=== PATIENT | female | born 1965 | race Caucasian/White ===

== ENCOUNTER 2022-01-10 15:29 | Outpatient (REF) | payer MEDICAID, SELFPAY ==
[2022-01-11 18:21] LABS: Legionella Ag Detection Urine Negative (Negative)
[2022-01-13 14:19] LABS: Streptococcus Pneumoniae Ag, U Negative (Negative)
[2022-01-21 09:06] LABS: Interpretation Negative; Result: None Detected
== END 2022-01-10 15:30 | disposition home or self-care (01) ==
LOC: LBN 15:29
PROVIDERS: PCP Family Medicine; Visit Provider Student in an Organized Health Care Education/Training Program
DX: R91.8 Other nonspecific abnormal finding of lung field (principal); R53.83 Other fatigue; F17.210 Nicotine dependence, cigarettes, uncomplicated
CPT/HCPCS: 87102; 87107; 87206; 87449; 87070; 87205; 87385; 87899

== ENCOUNTER 2022-01-12 13:02 | Outpatient (CLI) | payer MEDICAID, SELFPAY ==
[2022-01-12 16:33] LABS: Abs Immature Grans 0.03 10^3/uL (0.0-0.06); Absolute Basophil Count 0.06 10^3/uL (0.0-0.2); Absolute Lymphocyte Count 2.03 10^3/uL (1.2-3.4); Absolute Monocyte Count 0.82 10^3/uL (0.1-0.8); Absolute Neutrophil Count 5.72 10^3/uL (1.2-6.7); Basophils % 0.7; Eosinophils % 2.3; HCT 44.5 % (36.0-46.0); HGB 15.3 g/dL (11.2-15.7); Immature Grans % 0.3; Lymphocytes % 22.9; MCH 30.8 pg (27.0-33.0); MCHC 34.4 % (32.0-36.0); MCV 90 fL (80-95); MPV 9.1 fL (8.0-11.0); Monocytes % 9.3; Neutrophils % 64.5; Platelet Count 352 10^3/uL (130-400); RBC 4.96 10^6/uL (3.93-5.22); RDW 13.2 % (11.7-14.6); RDW-SD 43.6 fL; WBC 8.86 10^3/uL (4.4-10.8)
[2022-01-12 16:44] LABS: Prothrombin Time 10.5 sec (9.3-11.0)
[2022-01-12 17:16] LABS: Procalcitonin 0.5 ng/mL
[2022-01-13 18:23] LABS: Rheumatoid Factor <8.6 IU/mL (<12.0)
[2022-01-14 09:37] LABS: Cyclic Citrullinated Peptide <2.5 U/mL (<5.0)
[2022-01-14 12:51] LABS: TB Interpretation Negative (Negative); TB1 Ag minus Nil 0.04 IU/ml; TB2 Ag minus Nil 0.02 IU/mL
[2022-01-14 14:40] LABS: Leukemia/Lymphoma by FC (Blood (See below)
[2022-01-14 22:50] LABS: Myeloperoxidase Ab IgG <0.2 U; Proteinase 3 Ab (PR3) <0.2 U
[2022-01-15 16:11] LABS: Fungitell Qualitative Negative (Negative); Fungitell Quantitative Value <31 pg/mL (<60 pg/mL)
[2022-01-18 12:59] LABS: dsDNA Ab, IgG <12.3 IU/mL (<30.0)
[2022-01-18 13:06] LABS: ANA Interpretation Positive (Negative); ANA Titer Pattern 1:320 Speckled
== END 2022-01-12 13:03 | disposition home or self-care (01) ==
LOC: LBO 13:04
PROVIDERS: PCP Family Medicine; Visit Provider Student in an Organized Health Care Education/Training Program
DX: R91.8 Other nonspecific abnormal finding of lung field (principal)
CPT/HCPCS: 36415; 84145; 86200; 87449; 88185; 83516; 85025; 85610; 86038; 86225; 86431; 86480; 88184; 88189

== ENCOUNTER 2022-05-09 03:34 | Outpatient (CLI) | payer MEDICAID, SELFPAY ==
[2022-05-09] MEDS: Albuterol HFA 18 GM 200 PUFF INH IH (12:17)
[2022-05-09] MEDS: Inhaler, Assist Device 1 EACH MC (12:17)
--- NOTE | 2022-05-10 09:39 | W.PFT ---
Date of service: 05/09/22 Time of Service: 10:09 Pulmonary Function Test Result Requesting Provider Kisha Indications: GONZALEZ, likely lung cancer Interpretation Spirometry: There is severe airflow limitation. There is no bronchodilator response. Lung Volumes: There is air trapping. Diffusion Capacity: There is a reduced diffusion. Airway Pressure: Increased airways resistance. Impression Severe airflow obstruction with a reduced diffusion and air trapping. This is consistent with COPD with emphysema. Clinical Correlation therefore is recommended.
== END 2022-05-09 03:35 | disposition home or self-care (01) ==
LOC: RT 03:35
PROVIDERS: PCP Family Medicine; Visit Provider Student in an Organized Health Care Education/Training Program
DX: F17.210 Nicotine dependence, cigarettes, uncomplicated (principal); J44.9 Chronic obstructive pulmonary disease, unspecified; J98.8 Other specified respiratory disorders
CPT/HCPCS: 94060; 94726; 94729

== ENCOUNTER 2022-11-17 18:41 | Outpatient (REF) | payer MEDICAID, SELFPAY ==
[2022-11-17 18:42] LABS: Abs Immature Grans 0.03 10^3/uL (0.0-0.06); Absolute Basophil Count 0.04 10^3/uL (0.0-0.2); Absolute Eosinophil Count 0.02 10^3/uL (0.0-0.7); Absolute Lymphocyte Count 1.13 10^3/uL (1.2-3.4); Absolute Monocyte Count 0.21 10^3/uL (0.1-0.8); Absolute Neutrophil Count 8.11 10^3/uL (1.2-6.7); Basophils % 0.4; Eosinophils % 0.2; HCT 42.9 % (36.0-46.0); HGB 14.4 g/dL (11.2-15.7); Immature Grans % 0.3; Lymphocytes % 11.8; MCH 30.6 pg (27.0-33.0); MCHC 33.6 % (32.0-36.0); MCV 91 fL (80-95); MPV 9.5 fL (8.0-11.0); Monocytes % 2.2; Neutrophils % 85.1; Platelet Count 374 10^3/uL (130-400); RDW 14.1 % (11.7-14.6); RDW-SD 46.8 fL; WBC 9.54 10^3/uL (4.4-10.8)
[2022-11-17 19:14] LABS: ALT 20 U/L (14-59); AST 20 U/L (15-37); Albumin 3.8 g/dL (3.4-5.0); Alkaline Phosphatase 149 U/L (46-116); Anion Gap 7.8 mmol/L (3-11); BUN 21 mg/dL (7-18); Bilirubin, Total 0.3 mg/dL (0.2-1.0); CO2 31.2 mmol/L (21.0-32.0); CREATININE 0.8 mg/dL (0.55-1.02); Calcium 9.7 mg/dL (8.5-10.1); Chloride 99 mmol/L (98-107); Estimated GFR 85.89 (mL/min/1.73m2); Glucose 188 mg/dL (74-106); Potassium 4.5 mmol/L (3.5-5.1); Sodium 138 mmol/L (136-145)
== END 2022-11-17 18:42 | disposition home or self-care (01) ==
LOC: LBN 18:41
PROVIDERS: PCP Family Medicine; Visit Provider Physician Assistant Surgical
DX: B37.0 Candidal stomatitis (principal); J44.9 Chronic obstructive pulmonary disease, unspecified; R91.1 Solitary pulmonary nodule; R91.8 Other nonspecific abnormal finding of lung field; F17.210 Nicotine dependence, cigarettes, uncomplicated
CPT/HCPCS: 80053; 87305; 85025; 87070; 87205

== ENCOUNTER 2022-11-25 09:58 | Outpatient (CLI) | payer MEDICAID, SELFPAY ==
--- NOTE | 2022-11-25 15:16 | DI.CT_ITS ---
Exam(s) CT CHEST WO EXAM: CT CHEST WO CLINICAL HISTORY: follow up pulmonary nodule,r91.1 TECHNIQUE: Imaging Protocol: Axial computed tomography images with coronal and sagittal reformatted images were created and reviewed CONTRAST MATERIAL: Noncontrast COMPARISON: CT CT ANGIO CHEST from 10/12/[address] ANGIO CHEST from 12/22/2021 FINDINGS: Pulmonary parenchyma: Large mass again noted in the anterior medial right upper lobe now measuring 5. 5 transverse by 8.5 AP by 7.6 cm cephalo caudad. It abuts the left upper hilum. No additional pulmo nary masses. There is coarsening of the interstitium seen adjacent to the mass with multiple nodules in the surrounding tissue consistent with lymphangitis spread. Findings are more prominent when com pared the previous exam. Tracheobronchial tree: No bronchiectasis or mucous plugging. Mediastinum and Evette: No dominant adenopathy or fluid collection. Pleura: No effusion or pneumothorax. Heart: The heart is not dilated. No coronary artery calcifications are seen. Aorta: Thoracic aorta non-dilated. Upper abdomen: Unremarkable. Bones: Degenerative changes. Soft tissues: Unremarkable. IMPRESSION: Continued interval enlargement of right upper lobe mass. RADIATION DOSE DELIVERED: 399.64mGy.cm Total DLP DATA REPOSITORY: All CT scans at this facility are submitted to the National Radiology Data Registry (NRDR) Dose Index Registry (DIR) with the [employer] (ACR). RADIATION OPTIMIZATION: All CT scans at this facility use at least one of these dose optimization te chniques: automated exposure control; mA and/or kV adjustment per patient size (includes targeted exa ms where dose is matched to clinical indication); or iterative reconstruction.
== END 2022-11-25 10:18 ==
LOC: DI 09:58
PROVIDERS: PCP Family Medicine; Visit Provider Student in an Organized Health Care Education/Training Program
DX: R91.1 Solitary pulmonary nodule (principal)
CPT/HCPCS: 71250

== ENCOUNTER 2022-12-08 16:46 | Outpatient (REF) | payer MEDICAID, SELFPAY | END 2022-12-08 16:47 | disposition home or self-care (01) | LOC: LBN 16:46 | PROVIDERS: PCP Family Medicine; Visit Provider Physician Assistant Surgical | DX: R73.09 Other abnormal glucose (principal) | CPT/HCPCS: 83036 ==

== ENCOUNTER 2022-12-10 12:25 | Outpatient (REF) | payer MEDICAID, SELFPAY ==
[2022-12-12 10:53] LABS: Lyme Ab w Rflx to Lyme Confirm Negative (Negative)
[2022-12-14 13:00] LABS: Anaplasma phagocytophilum Negative (Negative); B. miyamotoi PCR Negative (Negative); Babesia divergens/MO-1 Negative (Negative); Babesia duncani Negative (Negative); Babesia microti Negative (Negative); Ehrlichia chaffeensis Negative (Negative); Ehrlichia ewingii/canis Negative (Negative); Ehrlichia muris eauclairensis Negative (Negative)
== END 2022-12-10 12:26 | disposition home or self-care (01) ==
LOC: LBN 12:25
PROVIDERS: PCP Family Medicine; Visit Provider Physician Assistant Medical
DX: W57.XXXA Bitten or stung by nonvenomous insect and other nonvenomous arthropods, initial encounter (principal); T14.8XXA Other injury of unspecified body region, initial encounter
CPT/HCPCS: 87798; 86618

== ENCOUNTER → 2023-03-08 01:48 | Outpatient (CLI) | payer MEDICAID, SELFPAY ==
--- NOTE | 2023-03-08 09:27 | DI.RAD_ITS ---
Exam(s) XR CHEST 2V PA LATERAL EXAM: XR CHEST 2V PA LATERAL CLINICAL HISTORY: DYSPNEA UNSPECIFIED, R06.00, KNOWN MASS IN THE RUL, ? PNEUMOTHORAX/EFFUSION TECHNIQUE: 2D digital imaging was performed of the chest. Three images were obtained. PA and later al views were obtained. COMPARISON: CR XR CHEST SINGLE VIEW from 12/22/[address] CHEST WO from 11/25/2022 FINDINGS: MEDIASTINUM: Normal. HEART: Normal. PULMONARY VASCULATURE: Normal. LUNGS: There is again seen a right central mass consistent with the patient's known neoplasm. The kit ngs are otherwise clear. The are hyperinflated consistent with underlying COPD. PLEURAL SPACE: No pleural effusion or pneumothorax. BONE:Within normal limits for the patient's age. OTHER FINDINGS:Normal. IMPRESSION: 1. No evidence of a pneumothorax or pleural effusion. 2. Stable right upper lobe mass. DATA REPOSITORY: RADIATION DOSE DELIVERED:
== END ==
PROVIDERS: PCP Family Medicine; Visit Provider Student in an Organized Health Care Education/Training Program
DX: R91.8 Other nonspecific abnormal finding of lung field (principal)
CPT/HCPCS: 71046

== ENCOUNTER → 2023-04-12 01:19 | Outpatient (CLI) | payer MEDICAID, SELFPAY ==
[2023-04-12] MEDS: Normal Saline - Diluent 50 ML VIAL 25 ML IJ (12:32)
[2023-04-12] MEDS: Gadoterate meglumine 20 ML VIAL 10 ML IVP (12:33)
--- NOTE | 2023-04-12 13:15 | DI.MRI_ITS ---
Exam(s) MR ABDOMEN WO/W EXAM: MR ABDOMEN WO/W CLINICAL HISTORY: LUNG CANCER C34.11 TECHNIQUE: Multiplanar multisequence MRI of the Abdomen was performed. CONTRAST MATERIAL: IV Contrast: 11 mL of Dotarem contrast administered. COMPARISON: CT,PT PET CT EYE TO THIGH from 02/08/2023 FINDINGS: Liver: Unremarkable. No evidence of a hepatic mass. Pancreas: Unremarkable. No evidence of a pancreatic mass. Gallbladder and Bile Ducts: No evidence of cholelithiasis or biliary ductal dilatation. Adrenals: There is no adrenal mass. Kidneys: Unremarkable. Spleen: Unremarkable. Bowel: Unremarkable. Aorta: Unremarkable. Soft Tissues: Unremarkable. Bone: Age-appropriate degenerative changes are seen in the lower lumbar spine. Lymph Nodes: Unremarkable. IMPRESSION: No evidence of an abdominal mass or metastatic disease. DATA REPOSITORY:
--- NOTE | 2023-04-12 13:40 | DI.MRI_ITS ---
Exam(s) MR BRAIN WO/W EXAM: MR BRAIN WO/W CLINICAL HISTORY: LUNG CANCER C34.11 TECHNIQUE: Multiplanar multisequence MRI of the brain was performed. CONTRAST MATERIAL: IV Contrast: 11 mL of Dotarem contrast administered. COMPARISON: No exams were available for comparison FINDINGS: The examination is limited due to patient motion artifact. VENTRICLES AND EXTRA AXIAL SPACES: Normal in size and morphology for the patient's age. HEMORRHAGE: None. CEREBRAL PARENCHYMA: No focus of restricted diffusion to suggest acute infarct. No space-occupying le valentín identified. There are multiple areas of hyperintense signal seen in the white matter on the FLAI R and T2 weighted images most consistent with small vessel ischemic disease. MIDLINE SHIFT: None. BRAINSTEM/CEREBELLUM: Normal. CALVARIUM: Normal. ENHANCEMENT: No suspicious enhancement identified. VISUALIZED PARANASAL SINUSES/MASTOIDS: Clear. RAMPART OF ROMEO: Normal flow void. PITUITARY GLAND: Unremarkable. OTHER FINDINGS: IMPRESSION: 1. No intracranial mass or enhancing lesion. 2. Multiple nonenhancing white matter foci seen on the FLAIR and T2 weighted images most likely refle cting small vessel ischemic disease. 3. No evidence of an acute infarct. DATA REPOSITORY:
== END ==
PROVIDERS: PCP Family Medicine; Visit Provider Student in an Organized Health Care Education/Training Program
DX: C34.11 Malignant neoplasm of upper lobe, right bronchus or lung (principal)
CPT/HCPCS: 70553; 74183

== ENCOUNTER → 2023-05-15 02:03 | Outpatient (CLI) | payer MEDICAID, SELFPAY ==
--- NOTE | 2023-05-15 | DI.CT_ITS ---
Exam(s) CT CHEST W EXAM: CT CHEST W CLINICAL HISTORY: lung ca, c34.90 TECHNIQUE: Imaging Protocol: Axial computed tomography images with coronal and sagittal reformatted images were created and reviewed CONTRAST MATERIAL: Intravenous: Omnipaque 350 Contrast volume:structured data ml. COMPARISON: CT CT CHEST WO from 11/25/2022 CT,PT PET CT EYE TO THIGH from 02/08/2023 FINDINGS: Pulmonary parenchyma: No consolidation. Continued interval increase in size of right upper lobe mass abutting the hilum, now measuring 6.1 cm cephalo caudad by 5.7 cm transverse by 8.8 cm AP. A adjace nt small nodules and minute interstitial thickening again noted consistent with interstitial spread o f tumor. This extends to the pleura. Bronchial obstruction and vascular 10 UA montaño again noted. Le ft upper lobe volume loss again present. Tiny mediastinal lymph nodes, stable. Right middle lobe no dule, 8 x 4 millimeters. Tracheobronchial tree: No bronchiectasis or mucous plugging. Mediastinum and Evette: No dominant adenopathy or fluid collection. Pleura: No effusion. No pneumothorax. Heart: The heart is not dilated. Mild coronary artery calcifications are seen. Aorta: Thoracic aorta non-dilated. Mild atherosclerotic changes. Upper abdomen: Unremarkable. Bones: Degenerative changes in the spine. Compression fracture, lytic or blastic lesion. Soft tissues: Unremarkable. IMPRESSION: Mild interval increase in size in right upper lobe mass. New right middle lobe nodule. RADIATION DOSE DELIVERED: Total DLP DATA REPOSITORY: All CT scans at this facility are submitted to the National Radiology Data Registry (NRDR) Dose Index Registry (DIR) with the [employer] (ACR). RADIATION OPTIMIZATION: All CT scans at this facility use at least one of these dose optimization te chniques: automated exposure control; mA and/or kV adjustment per patient size (includes targeted exa ms where dose is matched to clinical indication); or iterative reconstruction.
[2023-05-15] MEDS: Normal Saline - Diluent 50 ML VIAL IJ (14:45)
[2023-05-15] MEDS: Omnipaque 350 MG/ML 100 ML BTL IJ (14:45)
[2023-05-15] MEDS: Normal Saline Flush 10 ML SYR IVP (14:47)
== END ==
PROVIDERS: PCP Family Medicine; Visit Provider Internal Medicine
DX: C34.90 Malignant neoplasm of unspecified part of unspecified bronchus or lung (principal)
CPT/HCPCS: 71260; J3490

== ENCOUNTER 2023-07-13 15:15 | Emergency (ER) | payer MEDICAID, SELFPAY ==
[2023-07-13] VITALS (20 sets, daily range): BP systolic 100–128; BP diastolic 43–80; PULSE 87–108; RESP 13–28; TEMP 37.1; O2SAT 96–98
--- NOTE | 2023-07-13 15:15 | DI.RAD_ITS ---
Exam(s) XR CHEST 2V PA LATERAL EXAM: XR CHEST 2V PA LATERAL CLINICAL HISTORY: sob. TECHNIQUE: 2D digital imaging was performed. COMPARISON: CR XR CHEST 2V PA LATERAL from 03/08/[address] CHEST W from 05/15/2023 FINDINGS: 2 views: Heart size is normal. The large lobulated malignant-appearing mass in the right upper lobe parahilar region is again noted. This appears slightly further increased in size measuring approximately 10-11 cm AP by 9 cm cranioc audal by 7 cm wide. The opposite-left lung is clear. There are no pleural effusions. IMPRESSION: Large malignant appearing right para-suprahilar mass with further increase in size from 03/08/2023. See recent chest CT scan report of 05/15/2023. DATA REPOSITORY: RADIATION DOSE DELIVERED:
[2023-07-13] MEDS: methylPREDNISolone SUCC 125 MG VIAL IVP (15:30)
[2023-07-13] MEDS: Albuterol/Ipratropium 3 ML UPD VIAL UPD ×3 (15:30→16:00)
--- NOTE | 2023-07-13 15:39 | ED.GENADUL_ITS ---
Discharge Plan Disposition Patient Disposition: Home Discharge Details Clinical Impression: COPD (chronic obstructive pulmonary disease) Primary Care Provider: Jaya Arias ED Provider: Rian Mancuso Home Meds and New Rx's Prescriptions: New doxycycline hyclate 100 mg tablet 100 mg PO BID 10 Days Qty: 20 0RF prednisone 20 mg tablet 40 mg PO DAILY 5 Days Qty: 10 0RF No Action turmeric 1,800 mg PO DAILY doxycycline hyclate 100 mg capsule 100 mg PO BID Qty: 10 0RF prednisone 20 mg tablet 20 mg PO DAILY Qty: 10 0RF Spiriva Respimat 2.5 mcg/actuation mist 2 puff inhalation DAILY clotrimazole 10 mg john 10 mg mucous membrane ONCE Qty: 30 3RF azithromycin 250 mg tablet See Rx Instructions PO .COMPLEX Qty: 6 0RF Rx Instructions: For 250 mg dose pack: take 500 mg today (day 1), then 250 mg for 4 days (days 2-5) PO cholecalciferol (vitamin D3) 25 mcg (1,000 unit) capsule 125 mcg PO DAILY acetaminophen [Tylenol] 325 mg tablet 325 mg PO Q6H PRN albuterol sulfate 1.25 mg/3 mL solution for nebulization 1.25 mg inhalation QID PRN (Reason: shortness of breath or wheezing) Qty: 540 5RF albuterol sulfate [Ventolin HFA] 90 mcg/actuation HFA aerosol inhaler See Rx Instructions .ROUTE .COMPLEX Qty: 18 10RF Dose Instruction: INHALE TWO PUFFS BY MOUTH EVERY 4 TO 6 HOURS NEEDED FOR FOR SHORTNESS OF BREATH OR WHEEZE Rx Instructions: INHALE TWO PUFFS BY MOUTH EVERY 4 TO 6 HOURS NEEDED FOR FOR SHORTNESS OF BREATH OR WHEEZE Discharge Instructions Instructions: COPD (Chronic Obstructive Pulmonary Disease) (ED) Additional Instructions: Take antibiotic as prescribed. Start steroids tomorrow and take for 5 days. Use your albuterol as needed at home. Follow-up with your pulmonology team. Discharge Data Discharge Date/Time-TO BE ENTERED AT DEPARTURE: 07/13/23 17:14 Medical Decision Making Emergent evaluation of shortness of breath. Initial differential includes COPD exacerbation, postobstructive pneumonia, viral illness. Patient is not hypoxic, she is not responding as well to her nebulizer or albuterol treatment at home. Plan for lab work, steroids, breathing treatment. Chest x-ray to evaluate for consolidative process. Ordered viral testing, but the patient is refusing because there is no possible way she could have COVID. 1625: Patient completed neb and is having improved air movement. Lab work reviewed and there are no clinically significant abnormalities. Chest x-ray without consolidative process. Given her history and risk factors, will treat with a course of steroids and doxycycline. Recommend close follow-up with water safety teacher. Return precautions advised. Discharged in good condition. Medical Records Medical records reviewed: Yes I reviewed the patient's medical records. Lab Data Lab results reviewed: Yes I reviewed the patient's lab results. HPI General Date/Time Provider Initiated Documentation: 07/13/23 15:28 . Limitations to Documentation: no limitations . Information obtained by: patient . HPI Narrative: 57-year-old female with past medical history of COPD, tobacco abuse, non-small cell lung cancer. She reports 4 days of worsening shortness of breath. She has been using otmx-cme-mocnmgd cough medications as well as her inhaler without much relief. She reports increasing cough. It is productive of a yellowish sputum. Denies any chest pain. Does not require oxygen at home. Is still smoking. Related Data Home Medications Medication Instructions Recorded Confirmed acetaminophen 325 mg tablet 325 mg PO Q6H PRN 01/05/22 06/05/23 (Tylenol) cholecalciferol (vitamin D3) 25 125 mcg PO DAILY 01/05/22 06/05/23 mcg (1,000 unit) capsule albuterol sulfate 1.25 mg/3 mL 1.25 mg (3 mL) inhalation QID PRN 09/07/22 06/05/23 solution for nebulization shortness of breath or wheezing #540 mL clotrimazole 10 mg john 10 mg mucous membrane ONCE #30 tabs 11/17/22 02/28/23 doxycycline hyclate 100 mg capsule 100 mg PO BID #10 caps 02/28/23 02/28/23 prednisone 20 mg tablet 20 mg PO DAILY #10 tabs 02/28/23 02/28/23 tiotropium bromide 2.5 2 puff inhalation DAILY 02/28/23 02/28/23 mcg/actuation mist for inhalation (Spiriva Respimat) turmeric 1,800 mg PO DAILY 02/28/23 06/05/23 albuterol sulfate 90 mcg/actuation See Rx Instructions .Route 05/31/23 06/05/23 aerosol inhaler (Ventolin HFA) .COMPLEX #18 grams azithromycin 250 mg tablet See Rx Instructions PO .COMPLEX #6 06/05/23 06/05/23 tabs doxycycline hyclate 100 mg tablet 100 mg PO BID 10 days #20 tabs 07/13/23 prednisone 20 mg tablet 40 mg (2 x 20 mg) PO DAILY 5 days 07/13/23 #10 tabs Previous Rx's Medication Instructions Recorded albuterol sulfate 1.25 mg/3 mL 1.25 mg (3 mL) inhalation QID PRN 09/07/22 solution for nebulization shortness of breath or wheezing #540 mL clotrimazole 10 mg john 10 mg mucous membrane ONCE #30 tabs 11/17/22 doxycycline hyclate 100 mg capsule 100 mg PO BID #10 caps 02/28/23 prednisone 20 mg tablet 20 mg PO DAILY #10 tabs 02/28/23 albuterol sulfate 90 mcg/actuation See Rx Instructions .Route 05/31/23 aerosol inhaler (Ventolin HFA) .COMPLEX #18 grams azithromycin 250 mg tablet See Rx Instructions PO .COMPLEX #6 06/05/23 tabs doxycycline hyclate 100 mg tablet 100 mg PO BID 10 days #20 tabs 07/13/23 prednisone 20 mg tablet 40 mg (2 x 20 mg) PO DAILY 5 days 07/13/23 #10 tabs Allergies Allergy/AdvReac Type Severity Reaction Status Date / Time pseudoephedrine AdvReac Unknown Verified 06/05/23 15:15 [From Sudafed] narcotics AdvReac Unknown gi upset Uncoded 06/05/23 15:15 General Stated Complaint: RespSymp WES: 3 PFSH All Active Problems (Updated 07/13/23 @ 17:00 by Rian Mancuso MD) High blood sugar (Acute) Thrush of mouth and esophagus (Acute) COPD (chronic obstructive pulmonary disease) (Chronic) Pulmonary nodule (Acute) Nicotine dependence, cigarettes, uncomplicated (Acute) Mass of upper lobe of right lung (Acute) Concussion (Acute) Dizziness (Acute) Anxiety (Chronic) Lesion of ulnar nerve (Acute) Ovarian cyst (Acute) Fatigue (Acute) Depression (Chronic) Abdominal pain (Acute) Bursitis (Acute) Back pain (Acute) Pelvic pain (Acute) Medical History Bowel habit changes Exposure to viral hepatitis (Suspected) Generalized hyperhidrosis Myalgia Paresthesia of skin Epigastric pain Cervical dysplasia Surgical History H/O LEEP Family History Mother Cancer family history of CA Mother bladder questioning ovarian ca Uncle brain CA Grand father CA unknown origin. Social History Smoking/Tobacco Use Status: Current every day Tobacco Type: cigarettes Smoking packs per day: 0.5 Smoking cigarettes per day: 10.0 Smoking risk assessment performed?: Yes Exam Narrative Exam Narrative: Review of Systems: All systems reviewed & are unremarkable except as noted in HPI and below: CONSTITUTIONAL: Alert and oriented Well-developed, mild distress HEENT: NCAT EYES: PERRL, no conjunctival injection EARS: no external abnormality NOSE nares patent MOUTH Moist MM NECK: Symmetric, trachea midline, No thyromegaly THROAT oropharynx clear CVS: RRR, No murmurs or gallops. Peripheral pulses 2+ and equal in all extremities Brisk capillary refill in all extremities. No peripheral edema RESP: No hypoxia, diminished breath sounds particularly on the right, small amount of expiratory wheezing GI: Soft, Nontender, Nondistended, No organomegaly MSK: Extremities with full range of motion, no deformity or TTP SKIN: Warm, Dry. No rashes or lesions. NEURO: No focal neurologic deficits. Course Vital Signs Vital signs: Vital Signs Temperature 37.1 C 07/13/23 15:21 Pulse 108 H 07/13/23 15:21 Respiratory Rate 15 07/13/23 15:21 Blood Pressure 117/80 07/13/23 15:21 Pulse Oximetry 98 07/13/23 15:21 Temperature 37.1 C 07/13/23 15:29 Temperature Source Oral 07/13/23 15:29 Pulse 108 H 07/13/23 15:29 Respiratory Rate 15 07/13/23 15:29 Respiratory Effort Normal 07/13/23 15:29 Respiratory Depth Normal 07/13/23 15:29 Blood Pressure 117/80 07/13/23 15:29 Blood Pressure Position Sitting 07/13/23 15:29 Pulse Oximetry 96 07/13/23 15:29 Oxygen Delivery Method Room Air 07/13/23 15:29 Oxygen Flow Rate 0 07/13/23 15:21 Pain Level 0 07/13/23 15:21
[2023-07-13 15:45] LABS: Abs Immature Grans 0.02 10^3/uL (0.0-0.06); Absolute Basophil Count 0.08 10^3/uL (0.0-0.2); Absolute Eosinophil Count 0.36 10^3/uL (0.0-0.7); Absolute Lymphocyte Count 2.63 10^3/uL (1.2-3.4); Absolute Monocyte Count 0.77 10^3/uL (0.1-0.8); Absolute Neutrophil Count 5.24 10^3/uL (1.2-6.7); Basophils % 0.9; HGB 13.7 g/dL (11.2-15.7); Immature Grans % 0.2; Lymphocytes % 28.9; MCH 29.4 pg (27.0-33.0); MCHC 32.6 % (32.0-36.0); MCV 90 fL (80-95); MPV 8.6 fL (8.0-11.0); Monocytes % 8.5; Neutrophils % 57.5; Platelet Count 512 10^3/uL (130-400); RBC 4.66 10^6/uL (3.93-5.22); RDW 13.8 % (11.7-14.6); RDW-SD 45.4 fL
[2023-07-13 16:00] LABS: ALT 26 U/L (14-59); AST 33 U/L (15-37); Albumin 3.4 g/dL (3.4-5.0); Alkaline Phosphatase 113 U/L (46-116); BUN 14 mg/dL (7-18); Bilirubin, Total 0.4 mg/dL (0.2-1.0); CREATININE 0.7 mg/dL (0.55-1.02); Calcium 9.1 mg/dL (8.5-10.1); Chloride 101 mmol/L (98-107); Estimated GFR 100.19 (mL/min/1.73m2); Glucose 165 mg/dL (74-106); Potassium 3.7 mmol/L (3.5-5.1); Sodium 139 mmol/L (136-145); Total Protein 7.7 g/dL (6.4-8.2)
== END 2023-07-13 17:14 | disposition home or self-care (01) ==
PROVIDERS: Emergency Provider Emergency Medicine; PCP Family Medicine
DX: J44.1 Chronic obstructive pulmonary disease with (acute) exacerbation (principal); F17.210 Nicotine dependence, cigarettes, uncomplicated; Z11.52 Encounter for screening for COVID-19
CPT/HCPCS: 80053; 87637; 96374; 99283; 71046; 85025; J2930; J7620

== ENCOUNTER 2023-08-03 04:35 | Outpatient (CLI) | payer MEDICAID, SELFPAY ==
[2023-08-03 13:24] LABS: Abs Immature Grans 0.03 10^3/uL (0.0-0.06); Absolute Basophil Count 0.06 10^3/uL (0.0-0.2); Absolute Eosinophil Count 0.19 10^3/uL (0.0-0.7); Absolute Lymphocyte Count 2.31 10^3/uL (1.2-3.4); Absolute Neutrophil Count 5.68 10^3/uL (1.2-6.7); Basophils % 0.7; Eosinophils % 2.1; HCT 43.4 % (36.0-46.0); Immature Grans % 0.3; Lymphocytes % 25.5; MCH 29.6 pg (27.0-33.0); MCHC 32.3 % (32.0-36.0); MCV 92 fL (80-95); MPV 8.6 fL (8.0-11.0); Monocytes % 8.8; Neutrophils % 62.6; Platelet Count 445 10^3/uL (130-400); RBC 4.73 10^6/uL (3.93-5.22); RDW-SD 50.4 fL; WBC 9.07 10^3/uL (4.4-10.8)
[2023-08-03 13:40] LABS: ALT 33 U/L (14-59); AST 34 U/L (15-37); Albumin 3.3 g/dL (3.4-5.0); Alkaline Phosphatase 109 U/L (46-116); Anion Gap 6.1 mmol/L (3-11); BUN 16 mg/dL (7-18); Bilirubin, Total 0.2 mg/dL (0.2-1.0); CO2 32.9 mmol/L (21.0-32.0); CREATININE 0.7 mg/dL (0.55-1.02); Chloride 101 mmol/L (98-107); Estimated GFR 100.19 (mL/min/1.73m2); Glucose 152 mg/dL (74-106); Potassium 3.6 mmol/L (3.5-5.1); Sodium 140 mmol/L (136-145); Total Protein 7.6 g/dL (6.4-8.2)
[2023-08-04 10:14] LABS: HBs Antibody, Quant <3.1 mIU/mL (See Note); Hep B Surface Ab Negative (See Note); Hepatitis B Core Antibody Negative (Negative); Hepatitis B Surface Antigen Negative (Negative)
== END 2023-08-03 04:36 | disposition home or self-care (01) ==
LOC: LBO 04:36
PROVIDERS: PCP Family Medicine; Visit Provider Internal Medicine
DX: Z11.59 Encounter for screening for other viral diseases (principal); C34.11 Malignant neoplasm of upper lobe, right bronchus or lung
CPT/HCPCS: 36415; 80053; 86704; 86706; 87340; 85025

== ENCOUNTER → 2023-08-04 00:29 | Outpatient (CLI) | payer MEDICAID, SELFPAY ==
--- NOTE | 2023-08-04 | DI.US_ITS ---
Exam(s) US ABDOMEN LIMITED EXAM: US ABDOMEN LIMITED CLINICAL HISTORY: NEW FULLNESS,BLOATING, RUQ TECHNIQUE: Ultrasound abdomen performed using standard protocol. COMPARISON: MR MR ABDOMEN WO/W from 04/12/2023 FINDINGS: LIVER: Normal size. Normalechogenicity. No focal liver lesions are seen.. GALLBLADDER: No evidence of cholelithiasis. No evidence of wall thickening. No pericholecystic fluid identified. TENORIO'S SIGN: Negative. BILIARY SYSTEM: No intrahepatic or extrahepatic biliary ductal dilation. RIGHT KIDNEY: Normal size. No evidence of renal calculi. No evidence of hydronephrosis. No suspicious renal mass. No cyst identified. PANCREAS: Normal where visualized. ABDOMINAL AORTA AND IVC: Visualized portions normal caliber. ASCITES: None seen. IMPRESSION: Normal sonographic appearance of the right upper quadrant. DATA REPOSITORY:
== END ==
PROVIDERS: PCP Family Medicine; Visit Provider Physician Assistant Medical
DX: R19.8 Other specified symptoms and signs involving the digestive system and abdomen (principal)
CPT/HCPCS: 76705

== ENCOUNTER → 2023-09-29 10:58 | Outpatient (CLI) | payer MEDICAID, SELFPAY ==
--- NOTE | 2023-09-29 10:30 | DI.RAD_ITS ---
Exam(s) XR CHEST 2V PA LATERAL EXAM: XR CHEST 2V PA LATERAL CLINICAL HISTORY: concern for pneumonia, postobstructive pneumonia due to FB aspiration,J18.9 TECHNIQUE: 2D digital imaging was performed. Two views. COMPARISON: CT CT CHEST W from 05/15/2023 CR XR CHEST 2V PA LATERAL from 07/13/2023 FINDINGS: HEART: Normal size. Aorta: Not dilated. PULMONARY VASCULATURE: Normal. LUNGS: A large mass is again noted in the right superior hilar region, abutting the mediastinum. It may have slightly increased in size when compared with the previous exam. No evidence of pneumonia. PLEURAL SPACE: No pleural effusion or pneumothorax. BONE:Unremarkable for age. Soft tissues: Unremarkable. IMPRESSION: Mild interval increase in size of right upper lobe mass. No evidence of pneumonia. DATA REPOSITORY: RADIATION DOSE DELIVERED:
== END ==
PROVIDERS: PCP Family Medicine; Visit Provider Student in an Organized Health Care Education/Training Program
DX: J18.9 Pneumonia, unspecified organism (principal); T17.908S Unspecified foreign body in respiratory tract, part unspecified causing other injury, sequela; C34.90 Malignant neoplasm of unspecified part of unspecified bronchus or lung
CPT/HCPCS: 71046

== ENCOUNTER → 2023-10-31 02:00 | Outpatient (CLI) | payer MEDICAID, SELFPAY ==
--- NOTE | 2023-10-31 | DI.MRI_ITS ---
Exam(s) MR BRAIN WO/W EXAM: MR BRAIN WO/W CLINICAL HISTORY: LUNG CANCER C34.11 EVAL FOR METS. TECHNIQUE: Multiplanar multisequence MRI of the brain was performed. CONTRAST MATERIAL: IV Contrast: 11 ML of Dotarem contrast administered. COMPARISON: MR MR BRAIN WO/W from 04/12/2023 FINDINGS: VENTRICLES AND EXTRA AXIAL SPACES: Normal in size and morphology for the patient's age. HEMORRHAGE: None. CEREBRAL PARENCHYMA: No focus of restricted diffusion to suggest acute infarct. No space-occupying le valentín identified. Stable scattered foci of high signal in the white matter consistent with microvas cular disease. MIDLINE SHIFT: None. BRAINSTEM/CEREBELLUM: Normal. CALVARIUM: Normal. ENHANCEMENT: No suspicious enhancement identified. VISUALIZED PARANASAL SINUSES/MASTOIDS: Clear. Orbits: Unremarkable. Pituitary: Normal. Vasculature: Normal flow voids. IMPRESSION: No evidence of metastatic disease. Stable white matter changes of microvascular disease. DATA REPOSITORY:
[2023-10-31] MEDS: Gadoterate meglumine 20 ML SYRINGE 11 ML IVP (09:28)
[2023-10-31] MEDS: Normal Saline Flush 10 ML SYR IVP (09:28)
== END ==
PROVIDERS: PCP Family Medicine; Visit Provider Internal Medicine Medical Oncology
DX: C34.11 Malignant neoplasm of upper lobe, right bronchus or lung (principal); R90.82 White matter disease, unspecified
CPT/HCPCS: 70553

== ENCOUNTER 2023-11-01 04:26 | Outpatient (CLI) | payer MEDICAID, SELFPAY ==
[2023-11-01 10:29] LABS: Abs Immature Grans 0.06 10^3/uL (0.0-0.06); Absolute Basophil Count 0.07 10^3/uL (0.0-0.2); Absolute Eosinophil Count 0.29 10^3/uL (0.0-0.7); Absolute Lymphocyte Count 2.38 10^3/uL (1.2-3.4); Basophils % 0.6; Eosinophils % 2.6; HCT 46.1 % (36.0-46.0); HGB 15.1 g/dL (11.2-15.7); Immature Grans % 0.5; Lymphocytes % 21.7; MCH 29.9 pg (27.0-33.0); MCHC 32.8 % (32.0-36.0); MCV 91 fL (80-95); MPV 8.4 fL (8.0-11.0); Monocytes % 11.9; Neutrophils % 62.7; Platelet Count 566 10^3/uL (130-400); RBC 5.05 10^6/uL (3.93-5.22); RDW 14.6 % (11.7-14.6); RDW-SD 48.6 fL; WBC 10.97 10^3/uL (4.4-10.8)
[2023-11-01 10:30] LABS: Absolute Monocyte Count 1.31 10^3/uL (0.1-0.8); Absolute Neutrophil Count 6.88 10^3/uL (1.2-6.7)
[2023-11-01 10:59] LABS: ALT 25 U/L (14-59); AST 27 U/L (15-37); Albumin 3.3 g/dL (3.4-5.0); Alkaline Phosphatase 125 U/L (46-116); Anion Gap 8.8 mmol/L (3-11); BUN 14 mg/dL (7-18); Bilirubin, Total 0.4 mg/dL (0.2-1.0); CO2 31.2 mmol/L (21.0-32.0); CREATININE 0.9 mg/dL (0.55-1.02); Calcium 8.9 mg/dL (8.5-10.1); Chloride 102 mmol/L (98-107); FREE T4 1.36 ng/dL (0.76-1.46); Glucose 121 mg/dL (74-106); Magnesium 1.7 mg/dL (1.8-2.4); Sodium 142 mmol/L (136-145); TSH 0.55 uIU/Ml (0.36-3.74); Total Protein 7.1 g/dL (6.4-8.2)
== END 2023-11-01 04:27 | disposition home or self-care (01) ==
LOC: LBO 04:26
PROVIDERS: PCP Family Medicine; Visit Provider Internal Medicine Medical Oncology
DX: C34.11 Malignant neoplasm of upper lobe, right bronchus or lung (principal)
CPT/HCPCS: 36415; 80053; 83735; 84439; 84443; 85025

== ENCOUNTER 2023-11-14 09:35 | Emergency (ER) | payer MEDICAID, SELFPAY ==
[2023-11-14] VITALS (15 sets, daily range): BP systolic 106–156; BP diastolic 61–102; PULSE 81–105; RESP 13–31; TEMP 36.8–37.6; O2SAT 91–99
--- NOTE | 2023-11-14 09:45 | RT.EKG_ITS ---
APPROVED REPORT Exam: Resting ECG Reason for Exam: sob Patient Location: E HR:91 bpm ECG Measurements Heart Rate 91 AXIS IA 164 P 81 QRSd 90 QRS 78 QT 353 T 70 QTc 436 Conclusion Sinus rhythm...normal P axis, V-rate 60- 99 Physician: no stemi
--- NOTE | 2023-11-14 10:00 | DI.CT_ITS ---
Exam(s) CT CHEST PE CTA EXAM: CT CHEST PE CTA CLINICAL HISTORY: SOB with hypoxia, tachycardia. Known R lung CA. TECHNIQUE: Imaging Protocol: Axial CT angiography was performed with multi-slice acquisition and mu lti-planar reconstructions as well as axial, coronal and sagittal MIP reconstructions. CONTRAST MATERIAL: Intravenous: Omnipaque 350 Contrast volume:100 ml COMPARISON: CT CT CHEST W from 05/15/2023 FINDINGS: Pulmonary Arteries: No evidence of filling defect to suggest pulmonary emboli. Tracheobronchial tree: No mucous plugging. Mediastinum and Evette: No dominant adenopathy or fluid collection. Pulmonary parenchyma: Large right upper lobe mass again noted, not significantly changed. Pleura: No effusion or pneumothorax. Heart: The heart is not dilated. No coronary artery calcifications are seen. Aorta: Thoracic aorta non-dilated. No dissection. Upper abdomen: No acute findings. Bones: Unremarkable for age. Tubes, Catheters, and Lines: None Soft tissues: Unremarkable. IMPRESSION: No evidence of pulmonary embolism. Stable right upper lobe mass no acute infiltrate. RADIATION DOSE DELIVERED: 154.5 mGy.cm Total DLP DATA REPOSITORY: All CT scans at this facility are submitted to the National Radiology Data Registry (NRDR) Dose Index Registry (DIR) with the [employer] ([employer]). RADIATION OPTIMIZATION: All CT scans at this facility use at least one of these dose optimization te chniques: automated exposure control; mA and/or kV adjustment per patient size (includes targeted exa ms where dose is matched to clinical indication); or iterative reconstruction.
--- NOTE | 2023-11-14 10:04 | ED.GENADUL_ITS ---
Discharge Plan Disposition Patient Disposition: Home Discharge Details Clinical Impression: GERD with esophagitis, Chest pain Primary Care Provider: Jaya Arias ED Provider: Gwen Cummings Home Meds and New Rx's Prescriptions: New sucralfate [Carafate] 100 mg/mL suspension 10 ml PO TID 7 Days Qty: 210 0RF Rx Instructions: swish in mouth and swallow; use after food/drink alum-mag hydroxide-simeth [Antacid] 200-200-20 mg/5 mL suspension 10 ml PO QID PRNQty: 148 0RF Rx Instructions: administer between meals and at bedtime as needed Continued turmeric 1,800 mg PO DAILY guaifenesin [Mucinex] 600 mg tablet extended release 12hr 600 mg PO Q12H PRN clotrimazole 10 mg john 10 mg mucous membrane ONCE Qty: 30 6RF naproxen sodium [Aleve] 220 mg tablet 220 mg PO Q12H PRN cholecalciferol (vitamin D3) 25 mcg (1,000 unit) capsule 125 mcg PO DAILY acetaminophen [Tylenol] 325 mg tablet 325 mg PO Q6H PRN albuterol sulfate 1.25 mg/3 mL solution for nebulization 1.25 mg inhalation QID PRN (Reason: shortness of breath or wheezing) Qty: 540 5RF prednisone 20 mg tablet 20 mg PO DAILY Qty: 16 0RF Rx Instructions: Take 3 tabs for 3 days, 2 tabs for 3 days, 1.5 tabs for 3 days, 1 tab for 3 days, 0.5 tabs for 3 days albuterol sulfate [Ventolin HFA] 90 mcg/actuation HFA aerosol inhaler See Rx Instructions .ROUTE .COMPLEX Qty: 18 10RF Dose Instruction: INHALE TWO PUFFS BY MOUTH EVERY 4 TO 6 HOURS NEEDED FOR FOR SHORTNESS OF BREATH OR WHEEZE Rx Instructions: INHALE TWO PUFFS BY MOUTH EVERY 4 TO 6 HOURS NEEDED FOR FOR SHORTNESS OF BREATH OR WHEEZE Discharge Instructions Instructions: Esophagitis (ED) Additional Instructions: Please follow-up with your team next week as scheduled. Be sure to stay well-hydrated, drinking plenty of fluids throughout the day. Sleep with the head of your bed elevated. You may use the Maalox as needed and Carafate regularly for esophageal irritation. Please continue to take your COPD medications as needed and as prescribed. Return to emergency care if develop new episodes of passing out, chest pains, difficulty breathing, or if you are very worried and need to be rechecked again immediately HPI General Date/Time Provider Initiated Documentation: 11/14/23 09:37 . HPI Narrative: Nakita is a 57-year-old female recently diagnosed with right upper and middle lobe lung cancer, currently undergoing chemo. Last chemo was 2 weeks ago. She reports for the last week and a half she has had worsening shortness of breath that is worse on inspiration, rather than expiration with her normal COPD. Shortness of breath is worsened with exertion and movement. She also reports a sternal tightness that radiates to her back, denies other chest pain. Denies fever/chills, lightheadedness, extremity coolness, nausea/vomiting, change in p.o. intake, abdominal pain, change in bowel or bladder function, easy bruising or bleeding. She quit smoking 2 weeks ago. Denies history of hypertension, hyperlipidemia, or diabetes. No calf redness/tenderness/swelling or history of blood clot. She is currently taking prednisone and doxycycline with no improvement in symptoms, started dose yesterday. No improvement with inhalers or albuterol nebulizer. Related Data Home Medications Medication Instructions Recorded Confirmed acetaminophen 325 mg tablet 325 mg PO Q6H PRN 01/05/22 11/14/23 (Tylenol) cholecalciferol (vitamin D3) 25 125 mcg PO DAILY 01/05/22 11/14/23 mcg (1,000 unit) capsule albuterol sulfate 1.25 mg/3 mL 1.25 mg (3 mL) inhalation QID PRN 09/07/22 11/14/23 solution for nebulization shortness of breath or wheezing #540 mL turmeric 1,800 mg PO DAILY 02/28/23 11/14/23 clotrimazole 10 mg john 10 mg mucous membrane ONCE #30 tabs 08/22/23 11/14/23 guaifenesin 600 mg tablet, 600 mg PO Q12H PRN 08/22/23 11/14/23 extended release 12 hr (Mucinex) naproxen sodium 220 mg tablet 220 mg PO Q12H PRN 09/28/23 11/14/23 (Aleve) prednisone 20 mg tablet 20 mg PO DAILY #16 tabs 10/03/23 11/14/23 albuterol sulfate 90 mcg/actuation See Rx Instructions .Route 11/13/23 11/14/23 aerosol inhaler (Ventolin HFA) .COMPLEX #18 grams aluminum-mag hydroxide-simethicone 10 ml PO QID PRN #148 mL 11/14/23 200 mg-200 mg-20 mg/5 mL oral susp (Antacid) sucralfate 100 mg/mL oral 10 ml PO TID 7 days #210 mL 11/14/23 suspension (Carafate) Previous Rx's Medication Instructions Recorded albuterol sulfate 1.25 mg/3 mL 1.25 mg (3 mL) inhalation QID PRN 09/07/22 solution for nebulization shortness of breath or wheezing #540 mL clotrimazole 10 mg john 10 mg mucous membrane ONCE #30 tabs 08/22/23 prednisone 20 mg tablet 20 mg PO DAILY #16 tabs 10/03/23 albuterol sulfate 90 mcg/actuation See Rx Instructions .Route 11/13/23 aerosol inhaler (Ventolin HFA) .COMPLEX #18 grams aluminum-mag hydroxide-simethicone 10 ml PO QID PRN #148 mL 11/14/23 200 mg-200 mg-20 mg/5 mL oral susp (Antacid) sucralfate 100 mg/mL oral 10 ml PO TID 7 days #210 mL 11/14/23 suspension (Carafate) Allergies Allergy/AdvReac Type Severity Reaction Status Date / Time pseudoephedrine AdvReac Unknown Other (See Verified 11/14/23 09:42 [From Sudafed] Comment) narcotics AdvReac Unknown gi upset Uncoded 11/14/23 09:42 General Stated Complaint: RespSymp WES: 2 Review of Systems Narrative: see HPI Exam Const General: cooperative, comfortable and no acute distress Resp Effort & Inspection: normal respiratory effort and able to speak in complete sentences Auscultation: wheezes expiratory wheezes (all lung momin) Cardio Jugular venous pressure: no JVD Rate: regular rate Rhythm: regular rhythm GI Inspection: normal to inspection Palpation: soft, not firm, no guarding and nontender Extrem General: normal to inspection, capillary refill normal, no pedal edema, no calf tenderness and no calf tenderness bilaterally Course Vital Signs Vital signs: Vital Signs Temperature 36.8 C 11/14/23 09:42 Pulse 95 H 11/14/23 09:42 Respiratory Rate 20 11/14/23 09:42 Blood Pressure 156/102 H 11/14/23 09:42 Pulse Oximetry 94 11/14/23 09:42 Temperature 36.8 C 11/14/23 09:42 Temperature Source Temporal Artery Scan 11/14/23 09:42 Pulse 95 H 11/14/23 09:42 Respiratory Rate 20 11/14/23 09:42 Respiratory Effort Short of Breath 11/14/23 09:45 Blood Pressure 156/102 H 11/14/23 09:42 Blood Pressure Position Sitting 11/14/23 09:42 Pulse Oximetry 94 11/14/23 09:42 Oxygen Delivery Method Room Air 11/14/23 09:42 Oxygen Flow Rate 0 11/14/23 09:42 Pain Level 10 11/14/23 09:42 Medical Decision Making Nakita is a 57-year-old female recently diagnosed with right upper and middle lobe lung cancer, currently undergoing chemo. Last chemo was 2 weeks ago. She reports for the last week and a half she has had worsening shortness of breath that is worse on inspiration, rather than expiration with her normal COPD. Shortness of breath is worsened with exertion and movement. She also reports a sternal tightness that radiates to her back, denies other chest pain. Denies fever/chills, lightheadedness, extremity coolness, nausea/vomiting, change in p.o. intake, abdominal pain, change in bowel or bladder function, easy bruising or bleeding. She quit smoking 2 weeks ago. Denies history of hypertension, hyperlipidemia, or diabetes. No calf redness/tenderness/swelling or history of blood clot. She is currently taking prednisone and doxycycline with no improvement in symptoms, started dose yesterday. No improvement with inhalers or albuterol nebulizer. Physical exam remarkable for markedly anxious patient with end expiratory wheezes in all lung momin. Easy work of breathing. Normal heart sounds. Abdomen is soft, nondistended, nontender to palpation with no obvious masses. Upon arrival patient was noted to be hypoxic with tachycardia, both of which h ave resolved at this time. DDx includes was not limited to PE, pneumonia, growth of neoplasm, obstructive process, ACS, gastritis/esophagitis I independently interpreted the following tests: EKG reassuring, normal sinus rhythm rate 91. No changes consistent with acute ischemia. Normal CA and QTc. CBC remarkable for leukocytosis of 13.99 consistent with prednisone use. No change to platelet count. Slightly elevated BUN to creatinine ratio of 20:0.7, relatively unchanged from previous. CMP otherwise unremarkable. VBG reassuring. Serial troponins negative. CTA reassuring, no acute abnormality noted or change in known mass. While in the emergency department Nakita received a DuoNeb with no improvement of symptoms. GI cocktail given with good relief in symptoms. Nakita was able to walk around the room, improved wheezing reported. Overall workup today reassuring. Likely esophagitis, possibly related to chemotherapy. As Nakita had good relief with GI cocktail, recommend use of Maalox and Carafate, as H2 blockers that she tried yesterday did not provide any relief. Discussed with pharmacist at an [facility], reviewed patient's chemotherapy medications. No drug interactions or concerns noted. Reviewed discharge instructions with patient, including importance of continued use of COPD medications, symptomatic management, and red flags indicate need for return to emergency care. She is agreeable with plan of care. Imaging Data Radiologic Study: Radiologist's impression: Exam(s) CT CHEST PE CTA EXAM: CT CHEST PE CTA CLINICAL HISTORY: SOB with hypoxia, tachycardia. Known R lung CA. TECHNIQUE: Imaging Protocol: Axial CT angiography was performed with multi- slice acquisition and multi-planar reconstructions as well as axial, coronal and sagittal MIP reconstructions. CONTRAST MATERIAL: Intravenous: Omnipaque 350 Contrast volume:100 ml COMPARISON: CT CT CHEST W from 05/15/2023 FINDINGS: Pulmonary Arteries: No evidence of filling defect to suggest pulmonary emboli. Tracheobronchial tree: No mucous plugging. Mediastinum and Evette: No dominant adenopathy or fluid collection. Pulmonary parenchyma: Large right upper lobe mass again noted, not significantly changed. Pleura: No effusion or pneumothorax. Heart: The heart is not dilated. No coronary artery calcifications are seen. Aorta: Thoracic aorta non-dilated. No dissection. Upper abdomen: No acute findings. Bones: Unremarkable for age. Tubes, Catheters, and Lines: None Soft tissues: Unremarkable. IMPRESSION: No evidence of pulmonary embolism. Stable right upper lobe mass no acute infiltrate. Quality:[facility] Health Related Social Needs: No Data to Display [facility] All Active Problems (Updated 11/14/23 @ 14:57 by Gwen Long) Chest pain (Acute) GERD with esophagitis (Acute) Post-obstructive pneumonia due to foreign body aspiration (Acute) Metastatic primary lung cancer (Acute) High blood sugar (Acute) Thrush of mouth and esophagus (Acute) COPD (chronic obstructive pulmonary disease) (Chronic) Pulmonary nodule (Acute) Nicotine dependence, cigarettes, uncomplicated (Acute) Mass of upper lobe of right lung (Acute) Concussion (Acute) Dizziness (Acute) Anxiety (Chronic) Lesion of ulnar nerve (Acute) Ovarian cyst (Acute) Fatigue (Acute) Depression (Chronic) Abdominal pain (Acute) Bursitis (Acute) Back pain (Acute) Pelvic pain (Acute) Medical History Bowel habit changes Exposure to viral hepatitis (Suspected) Generalized hyperhidrosis Myalgia Paresthesia of skin Epigastric pain Cervical dysplasia Surgical History H/O LEEP Family History Mother Cancer family history of CA Mother bladder questioning ovarian ca Uncle brain CA Grand father CA unknown origin. Social History Smoking/Tobacco Use Status: Former Tobacco Use Quit Date: 10/31/23 Smoking risk assessment performed?: Yes Alcohol Intake: current Alcohol Intake frequency: holidays/special occasions only Drug use: Never Substance use type: does not use Housing: house Do you feel safe at home: Yes Do you feel safe in your relationship?: Yes
[2023-11-14 10:16] LABS: Abs Immature Grans 0.06 10^3/uL (0.0-0.06); Absolute Basophil Count 0.01 10^3/uL (0.0-0.2); Absolute Lymphocyte Count 0.92 10^3/uL (1.2-3.4); Absolute Monocyte Count 0.49 10^3/uL (0.1-0.8); Absolute Neutrophil Count 12.51 10^3/uL (1.2-6.7); BE (Venous) 6 mmol/L (-2-3); Basophils % 0.1; HCO3 (Venous) 30 mmol/L (23-28); HCT 44.6 % (36.0-46.0); HGB 14.9 g/dL (11.2-15.7); Immature Grans % 0.4; Lymphocytes % 6.6; MCH 29.8 pg (27.0-33.0); MCHC 33.4 % (32.0-36.0); MCV 89 fL (80-95); MPV 7.9 fL (8.0-11.0); Monocytes % 3.5; Neutrophils % 89.4; O2 Sat (Venous) 68 %; Platelet Count 442 10^3/uL (130-400); RDW 15.3 % (11.7-14.6); RDW-SD 47.2 fL; TCO2 (Venous) 27 mmol/L (24-29); WBC 13.99 10^3/uL (4.4-10.8); pCO2 (Venous) 46 mmHg (41-51); pH (Venous) 7.43 (7.31-7.41); pO2 (Venous) 37 mmHg
[2023-11-14 10:38] LABS: ALT 31 U/L (14-59); AST 12 U/L (15-37); Albumin 3.8 g/dL (3.4-5.0); Alkaline Phosphatase 98 U/L (46-116); Anion Gap 9.1 mmol/L (3-11); BUN 20 mg/dL (7-18); Bilirubin, Total 0.4 mg/dL (0.2-1.0); CO2 29.9 mmol/L (21.0-32.0); CREATININE 0.7 mg/dL (0.55-1.02); Calcium 9.1 mg/dL (8.5-10.1); Chloride 99 mmol/L (98-107); Estimated GFR 100.19 (mL/min/1.73m2); Glucose 124 mg/dL (74-106); Sodium 138 mmol/L (136-145); Total Protein 7.6 g/dL (6.4-8.2); Troponin I < 50 ng/L (< or =60)
[2023-11-14] MEDS: Albuterol/Ipratropium 3 ML UPD VIAL UPD (10:40)
[2023-11-14] MEDS: Omnipaque 350 MG/ML 100 ML BTL IJ (10:54)
[2023-11-14] MEDS: Normal Saline - Diluent 50 ML VIAL IJ ×2 (10:55→11:38)
[2023-11-14] MEDS: Omnipaque 350 MG/ML 50 ML BTL IJ (11:36)
[2023-11-14 13:37] LABS: NT-proBNP 71 pg/mL (<300)
[2023-11-14 13:54] LABS: Troponin I < 50 ng/L (< or =60)
== END 2023-11-14 15:38 | disposition home or self-care (01) ==
PROVIDERS: Emergency Provider Nurse Practitioner Family; PCP Family Medicine
DX: K21.00 Gastro-esophageal reflux disease with esophagitis, without bleeding (principal); R07.9 Chest pain, unspecified; C34.11 Malignant neoplasm of upper lobe, right bronchus or lung; C78.01 Secondary malignant neoplasm of right lung; J44.9 Chronic obstructive pulmonary disease, unspecified; Z92.21 Personal history of antineoplastic chemotherapy; Z87.891 Personal history of nicotine dependence
CPT/HCPCS: 36415; 71275; 80053; 82805; 93005; 94640; 99282; 83880; 84484; 85025; 93010; 99284; J3490; J7620; Q9967

== ENCOUNTER 2023-11-27 04:55 | Outpatient (CLI) | payer MEDICAID, SELFPAY ==
[2023-11-27 08:45] LABS: Abs Immature Grans 0.06 10^3/uL (0.0-0.06); Absolute Basophil Count 0.02 10^3/uL (0.0-0.2); Absolute Lymphocyte Count 1.22 10^3/uL (1.2-3.4); Absolute Monocyte Count 0.54 10^3/uL (0.1-0.8); Absolute Neutrophil Count 9.19 10^3/uL (1.2-6.7); Basophils % 0.2 %; HCT 44.1 % (36.0-46.0); Immature Grans % 0.5 %; Lymphocytes % 11.1 %; MCH 30.7 pg (27.0-33.0); MCV 90 fL (80-95); MPV 8.2 fL (8.0-11.0); Monocytes % 4.9 %; Neutrophils % 83.3 %; Platelet Count 239 10^3/uL (130-400); RBC 4.89 10^6/uL (3.93-5.22); RDW 18.3 % (11.7-14.6); WBC 11.03 10^3/uL (4.4-10.8)
[2023-11-27 09:28] LABS: ALT 31 U/L (14-59); AST 11 U/L (15-37); Albumin 3.5 g/dL (3.4-5.0); Alkaline Phosphatase 82 U/L (46-116); Anion Gap 9.8 mmol/L (3-11); BUN 17 mg/dL (7-18); Bilirubin, Total 0.5 mg/dL (0.2-1.0); CO2 31.2 mmol/L (21.0-32.0); CREATININE 0.7 mg/dL (0.55-1.02); Chloride 100 mmol/L (98-107); Estimated GFR 100.19 (mL/min/1.73m2); FREE T4 1.18 ng/dL (0.76-1.46); Glucose 146 mg/dL (74-106); Magnesium 1.7 mg/dL (1.8-2.4); Potassium 3.8 mmol/L (3.5-5.1); Sodium 141 mmol/L (136-145); TSH 0.13 uIU/Ml (0.36-3.74); Total Protein 7.1 g/dL (6.4-8.2)
== END 2023-11-27 04:56 | disposition home or self-care (01) ==
LOC: LBO 04:55
PROVIDERS: PCP Family Medicine; Visit Provider Internal Medicine Medical Oncology
DX: C34.11 Malignant neoplasm of upper lobe, right bronchus or lung (principal)
CPT/HCPCS: 36415; 80053; 83735; 84439; 84443; 85025

== ENCOUNTER → 2023-12-13 02:49 | Outpatient (CLI) | payer MEDICAID, SELFPAY ==
[2023-12-13] MEDS: Normal Saline - Diluent 50 ML VIAL IJ (10:15)
[2023-12-13] MEDS: Omnipaque 350 MG/ML 500 ML BTL-Imaging package 70 ML IJ (10:16)
--- NOTE | 2023-12-13 10:25 | DI.CT_ITS ---
Exam(s) CT CHEST W EXAM: CT CHEST W CLINICAL HISTORY: ADVANCED NSCLC ON CHEMO, RESTAGING, C34.11 TECHNIQUE: Imaging Protocol: Axial computed tomography images with coronal and sagittal reformatted images were created and reviewed CONTRAST MATERIAL: Intravenous: Omnipaque 350 Contrast volume:70 ml. COMPARISON: CT CT CHEST PE CTA from 11/14/2023 FINDINGS: Pulmonary parenchyma: Interval decrease in size of previously noted right upper lobe perihilar mass, now approximately 5.4 by 4.5 by 4.5 cm compared with roughly 6.5 x 5.5 x 8.8 cm on the prior. No new masses. Tracheobronchial tree: Attenuation of the bronchi within the right upper lobe mass. Some bronchi are occluded. Mediastinum and Evette: No dominant adenopathy or fluid collection. Pleura: No effusion. No pneumothorax. Heart: The heart is not dilated. No coronary artery calcifications are seen. Aorta: Thoracic aorta non-dilated. Mild atherosclerotic changes. Pulmonary arteries: No gross evidence of emboli. Upper abdomen: No acute findings.. Bones: Mild degenerative changes in the spine. Soft tissues: Unremarkable. IMPRESSION: Significant interval decrease in size of right upper lobe mass. No new abnormalities. RADIATION DOSE DELIVERED: 367.15mGy.cm Total DLP DATA REPOSITORY: All CT scans at this facility are submitted to the National Radiology Data Registry (NRDR) Dose Index Registry (DIR) with the [employer] ([employer]). RADIATION OPTIMIZATION: All CT scans at this facility use at least one of these dose optimization te chniques: automated exposure control; mA and/or kV adjustment per patient size (includes targeted exa ms where dose is matched to clinical indication); or iterative reconstruction.
== END ==
PROVIDERS: PCP Family Medicine; Visit Provider Internal Medicine Medical Oncology
DX: C34.11 Malignant neoplasm of upper lobe, right bronchus or lung (principal)
CPT/HCPCS: 71260

== ENCOUNTER 2023-12-20 05:29 | Outpatient (CLI) | payer MEDICAID, SELFPAY ==
[2023-12-20 11:29] LABS: Abs Immature Grans 0.04 10^3/uL (0.0-0.06); Absolute Basophil Count 0.03 10^3/uL (0.0-0.2); Absolute Eosinophil Count 0.01 10^3/uL (0.0-0.7); Absolute Lymphocyte Count 1.87 10^3/uL (1.2-3.4); Absolute Monocyte Count 0.93 10^3/uL (0.1-0.8); Absolute Neutrophil Count 3.77 10^3/uL (1.2-6.7); Basophils % 0.5 %; Eosinophils % 0.2 %; HGB 13.4 g/dL (11.2-15.7); Immature Grans % 0.6 %; Lymphocytes % 28.1 %; MCH 31.8 pg (27.0-33.0); MCHC 33.5 % (32.0-36.0); MCV 95 fL (80-95); MPV 8.2 fL (8.0-11.0); Neutrophils % 56.6 %; Platelet Count 267 10^3/uL (130-400); RBC 4.21 10^6/uL (3.93-5.22); RDW 20.5 % (11.7-14.6); RDW-SD 68.6 fL; WBC 6.65 10^3/uL (4.4-10.8)
[2023-12-20 11:48] LABS: Anisocytosis 1+; Diff Comment RBC Morph Reviewed
[2023-12-20 12:01] LABS: ALT 34 U/L (14-59); AST 21 U/L (15-37); Albumin 3.2 g/dL (3.4-5.0); Alkaline Phosphatase 98 U/L (46-116); Anion Gap 6.7 mmol/L (3-11); BUN 12 mg/dL (7-18); Bilirubin, Total 0.3 mg/dL (0.2-1.0); CO2 31.3 mmol/L (21.0-32.0); CREATININE 0.6 mg/dL (0.55-1.02); Calcium 8.5 mg/dL (8.5-10.1); Chloride 102 mmol/L (98-107); Estimated GFR 103.33 (mL/min/1.73m2); FREE T4 0.93 ng/dL (0.76-1.46); Glucose 130 mg/dL (74-106); Magnesium 1.7 mg/dL (1.8-2.4); Potassium 3.8 mmol/L (3.5-5.1); Sodium 140 mmol/L (136-145); TSH 0.41 uIU/Ml (0.36-3.74); Total Protein 6.5 g/dL (6.4-8.2)
== END 2023-12-20 05:30 | disposition home or self-care (01) ==
LOC: LBO 05:29
PROVIDERS: PCP Family Medicine; Visit Provider Internal Medicine Medical Oncology
DX: C34.11 Malignant neoplasm of upper lobe, right bronchus or lung (principal)
CPT/HCPCS: 36415; 80053; 83735; 84439; 84443; 85025

== ENCOUNTER 2024-01-17 02:36 | Outpatient (CLI) | payer MEDICAID, SELFPAY ==
[2024-01-17 10:07] LABS: Abs Immature Grans 0.03 10^3/uL (0.0-0.06); Absolute Basophil Count 0.08 10^3/uL (0.0-0.2); Absolute Eosinophil Count 0.11 10^3/uL (0.0-0.7); Absolute Lymphocyte Count 2.26 10^3/uL (1.2-3.4); Absolute Monocyte Count 0.95 10^3/uL (0.1-0.8); Absolute Neutrophil Count 3.64 10^3/uL (1.2-6.7); Basophils % 1.1 %; Eosinophils % 1.6 %; HCT 40.9 % (36.0-46.0); HGB 13.6 g/dL (11.2-15.7); Immature Grans % 0.4 %; MCH 32.3 pg (27.0-33.0); MCHC 33.3 % (32.0-36.0); MCV 97 fL (80-95); MPV 8.1 fL (8.0-11.0); Monocytes % 13.4 %; Neutrophils % 51.5 %; Platelet Count 367 10^3/uL (130-400); RBC 4.21 10^6/uL (3.93-5.22); RDW 19.1 % (11.7-14.6); RDW-SD 67.7 fL; WBC 7.07 10^3/uL (4.4-10.8)
[2024-01-17 10:32] LABS: ALT 25 U/L (14-59); AST 19 U/L (15-37); Albumin 3.3 g/dL (3.4-5.0); Alkaline Phosphatase 95 U/L (46-116); Anion Gap 6.7 mmol/L (3-11); BUN 15 mg/dL (7-18); Bilirubin, Total 0.26 mg/dL (0.2-1.0); CO2 31.3 mmol/L (21.0-32.0); Calcium 8.7 mg/dL (8.5-10.1); Chloride 105 mmol/L (98-107); FREE T4 0.98 ng/dL (0.76-1.46); Glucose 97 mg/dL (74-106); Magnesium 1.7 mg/dL (1.8-2.4); Potassium 4.2 mmol/L (3.5-5.1); Sodium 143 mmol/L (136-145); TSH 0.53 uIU/Ml (0.36-3.74); Total Protein 6.8 g/dL (6.4-8.2)
== END 2024-01-17 02:37 | disposition home or self-care (01) ==
LOC: LBO 02:36
PROVIDERS: PCP Family Medicine; Visit Provider Internal Medicine Medical Oncology
DX: C34.11 Malignant neoplasm of upper lobe, right bronchus or lung (principal)
CPT/HCPCS: 36415; 80053; 83735; 84439; 84443; 85025

== ENCOUNTER 2024-03-04 03:52 | Outpatient (CLI) | payer MEDICAID, SELFPAY ==
[2024-03-04 11:52] LABS: Abs Immature Grans 0.06 10^3/uL (0.0-0.06); Absolute Basophil Count 0.04 10^3/uL (0.0-0.2); Absolute Eosinophil Count 0.02 10^3/uL (0.0-0.7); Absolute Lymphocyte Count 1.52 10^3/uL (1.2-3.4); Absolute Monocyte Count 0.41 10^3/uL (0.1-0.8); Absolute Neutrophil Count 7.81 10^3/uL (1.2-6.7); Basophils % 0.4 %; Eosinophils % 0.2 %; HGB 14.7 g/dL (11.2-15.7); Immature Grans % 0.6 %; Lymphocytes % 15.4 %; MCHC 32.7 % (32.0-36.0); MCV 101 fL (80-95); MPV 8.4 fL (8.0-11.0); Monocytes % 4.2 %; Neutrophils % 79.2 %; Platelet Count 391 10^3/uL (130-400); RBC 4.46 10^6/uL (3.93-5.22); RDW 13.9 % (11.7-14.6); RDW-SD 51.7 fL; WBC 9.86 10^3/uL (4.4-10.8)
[2024-03-04 12:23] LABS: ALT 17 U/L (14-59); AST 12 U/L (15-37); Albumin 3.7 g/dL (3.4-5.0); Alkaline Phosphatase 109 U/L (46-116); Anion Gap 8.6 mmol/L (3-11); BUN 21 mg/dL (7-18); Bilirubin, Total 0.29 mg/dL (0.2-1.0); CO2 28.4 mmol/L (21.0-32.0); CREATININE 0.7 mg/dL (0.55-1.02); Calcium 9.6 mg/dL (8.5-10.1); Chloride 103 mmol/L (98-107); Estimated GFR 99.57 (mL/min/1.73m2); FREE T4 1.27 ng/dL (0.76-1.46); Glucose 127 mg/dL (74-106); Magnesium 1.7 mg/dL (1.8-2.4); Potassium 4.4 mmol/L (3.5-5.1); Sodium 140 mmol/L (136-145); TSH 0.12 uIU/Ml (0.36-3.74); Total Protein 7.5 g/dL (6.4-8.2)
== END 2024-03-04 03:53 | disposition home or self-care (01) ==
LOC: LBO 03:52
PROVIDERS: PCP Family Medicine; Visit Provider Internal Medicine Medical Oncology
DX: C34.11 Malignant neoplasm of upper lobe, right bronchus or lung (principal)
CPT/HCPCS: 36415; 80053; 83735; 84439; 84443; 85025

== ENCOUNTER 2024-04-01 09:37 | Emergency (ER) | payer MEDICAID, SELFPAY ==
[2024-04-01] VITALS (17 sets, daily range): BP systolic 139–151; BP diastolic 83–94; PULSE 89–115; RESP 14–34; TEMP 37.5; O2SAT 94–98
--- NOTE | 2024-04-01 09:38 | ED.GENADUL_ITS ---
Discharge Plan Disposition Patient Disposition: Home Discharge Details Clinical Impression: Right upper quadrant abdominal pain Primary Care Provider: Osvaldo Hatch ED Provider: Andres Vu [place] Meds and New Rx's Prescriptions: Continued guaifenesin [Mucinex] 600 mg tablet extended release 12hr 600 mg PO Q12H PRN clotrimazole 10 mg john 10 mg mucous membrane ONCE Qty: 30 6RF naproxen sodium [Aleve] 220 mg tablet 220 mg PO Q12H PRN cholecalciferol (vitamin D3) 25 mcg (1,000 unit) capsule 125 mcg PO DAILY acetaminophen [Tylenol] 325 mg tablet 325 mg PO Q6H PRN prednisone 20 mg tablet 20 mg PO DAILY Qty: 16 0RF Rx Instructions: Take 3 tabs for 3 days, 2 tabs for 3 days, 1.5 tabs for 3 days, 1 tab for 3 days, 0.5 tabs for 3 days sertraline 50 mg tablet 50 mg PO DAILY Qty: 90 0RF lorazepam 0.5 mg tablet 0.5 mg PO DAILY PRN (Reason: anxiety) Qty: 10 0RF Rx Instructions: Take 1/2 tablet to 1 tablet 15 minutes prior to infusion as needed fluticasone propion-salmeterol [Advair Diskus] 250-50 mcg/dose blister with device 1 inh inhalation BID Qty: 60 0RF prednisone 20 mg tablet 20 mg PO DAILY Qty: 24 0RF Rx Instructions: take 50mg for 4 days, 40mg for 3 days, 30mg for 3 days, 20mg for 2 days, 10mg for 2 days albuterol sulfate [Ventolin HFA] 90 mcg/actuation HFA aerosol inhaler See Rx Instructions .ROUTE .COMPLEX Qty: 18 10RF Dose Instruction: INHALE TWO PUFFS BY MOUTH EVERY 4 TO 6 HOURS NEEDED FOR FOR SHORTNESS OF BREATH OR WHEEZE Rx Instructions: INHALE TWO PUFFS BY MOUTH EVERY 4 TO 6 HOURS NEEDED FOR FOR SHORTNESS OF BREATH OR WHEEZE fluticasone propion-salmeterol [Advair HFA] 115-21 mcg/actuation HFA aerosol inhaler 2 puff inhalation BID Qty: 12 12RF clotrimazole 10 mg john 10 mg mucous membrane TID Qty: 30 3RF albuterol sulfate 2.5 mg /3 mL (0.083 %) solution for nebulization 2.5 mg inhalation Q4H PRN (Reason: shortness of breath or wheezing) Qty: 540 5RF prednisone 10 mg tablet 20 mg PO DAILY Patient Comments: TAKE TWO TABLETS BY MOUTH EVERY DAY FOR 7 DAYS; THEN TAKE ONE AND ONE-HALF TABLET BY MOUTH ONCE DAILY FOR 7 DAYS; THEN ONE TABLET BY MOUTH O alum-mag hydroxide-simeth [Antacid] 200-200-20 mg/5 mL suspension 10 ml PO QID PRNQty: 148 0RF Rx Instructions: administer between meals and at bedtime as needed Discharge Instructions Instructions: Abdominal Pain, Adult ED Additional Instructions: You are seen in the emergency department for your abdominal pain. CAT scan showed that you had some thickening in the endometrium for which you should follow-up with your primary care provider as she will benefit from a formal radiology ultrasound. Your CAT scan also showed concerns for an infiltrate in your left lung. Please follow-up with your oncologist concerning this finding. If you develop worsening cough fevers or shortness of breath please return to the emergency department. Your ultrasound did not show signs of any gallbladder disease. If you develop diarrhea fevers or worsening pain please return to the emergency department. HPI General Date/Time Provider Initiated Documentation: 04/01/24 09:38 . 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 No pain out of proportion to suggest necrotizing soft tissue infection. Not hypoxic to suggest obstructive pneumonia. No recent falls to suggest increased risk for pneumothorax. No dysuria nor frequency so my suspicion is low for UTI. No left lower quadrant tenderness to suggest increased risk for diverticulitis. Patient does have right upper quadrant tenderness and cholecystitis and appendicitis on the differential. No history of vascular disease to suggest increased risk for splenic arterial aneurysm. Patient may have atypical appendicitis given right upper quadrant tenderness. Referred pain certainly a possibility so we will obtain a D-dimer in the setting of malignancy. No chest pain to suggest ACS. Patient has not been vomiting to suggest increased risk for small bowel obstruction. No dysuria nor frequency so doubt UTI however will obtain urinalysis in setting of concerns for will also obtain lactate sepsis. 10:15 AM I met the patient as she was concerned about the cefepime and vancomycin which I ordered to cover for sepsis. She was concerned about to0 many antibiotics. I explained the risks of being behind in treating for sepsis. She understood these risks and declined antibiotics. 10:30 AM CBC lacks anemia leukocytosis and thrombocytopenia. There is mild erythrocytosis with macrocytosis.Lactate mildly elevated at 1.6 mmol/L. 11 AM Negative D-dimer. Comprehensive metabolic panel lacks DARIEN. Mild hyperglycemia but normal anion gap and normal bicarbonate??not consistent with DKA. Will send patient to CT scan abdomen pelvis. 1 PM I met with the patient and explained her CT results. There was concern for some endometrial thickening for which radiology recommended an ultrasound. I advised patient of this incidental finding and advised her to follow-up with her primary care provider. I did not feel that her right upper quadrant tenderness was the result of any primary uterine pathology so I did not feel she required an emergent transvaginal ultrasound. There was concern for left lobe infiltrate however she was not having any fevers nore was she I did feel her right upper quadrant tenderness is related to this left lung infiltrate. She is on outpatient trimethoprim/sulfamethoxazole to cover pneumonitis and it certainly could be the results of pneumonitis currently being treated. I advised that she follow-up with her oncologist. She had a formal right upper quadrant ultrasound which was reassuring against any acute cholecystitis. No epigastric tenderness to suggest pancreatitis. We also discussed return indications including any fevers any vomiting that did not stop which could represent obstru ction or any rash to abdomen. She understood her return indications discharged with empiric trial of expectant outpatient management. Chronic conditions affecting the care of the patient: Lung malignancy History obtained from an outside historian: N/A External record review: [facility] EMR Medications: IV fluids Social determinants of health affecting disposition: N/A Management discussed with: N/A Treatment/interventions considered: N/A Response to therapies provided: N/A HPI This is a 58-year-old female with a history of malignant neoplasm of right upper lung status post recent treatment with Keytruda also on prednisone and trimethoprim/sulfamethoxazole in setting of recent pneumonitis now arrived emergency department via private vehicle in setting of right upper quadrant pain. Patient notes bloating and gas in her abdomen. She has been attempting treatment with MiraLAX and Gas-X. She has had no surgeries to her stomach. She denies nausea vomiting diarrhea. She does endorse abdominal cramping. She does feel some shortness of breath. She has had no recent falls. Exam General: Well-appearing in no acute distress speaking in complete sentences. Head: Normocephalic, atraumatic. Eye: Extraocular eye movements intact. No conjunctival injection. No scleral icterus. Ear, nose, mouth, throat: Grossly normal inspection. Normal voice, handling secretions normally. Neck: Trachea midline. Cardiovascular: Well-perfused distal extremities. Rapid regular rate Respiratory: Nonlabored respiration. Clear lungs bilaterally Gastrointestinal: Mildly distended abdomen. Soft. Minimal right upper quadrant tenderness. No rebound. No guarding. Musculoskeletal: No edema. Moving all 4 extremities spontaneously. Skin: Normal for age and race, grossly normal temperature and turgor. No acute rash. Neurologic: Alert and appropriate, no apparent acute deficits. Psychiatric: Mood and manner are appropriate. Grooming and personal hygiene are appropriate. Related Data Home Medications ?Medication ?Instructions ?Recorded ?Confirmed acetaminophen 325 mg tablet 325 mg PO Q6H PRN 01/05/22 04/01/24 (Tylenol) cholecalciferol (vitamin D3) 25 125 mcg PO DAILY 01/05/22 04/01/24 mcg (1,000 unit) capsule clotrimazole 10 mg john 10 mg mucous membrane ONCE #30 tabs 08/22/23 04/01/24 guaifenesin 600 mg tablet, 600 mg PO Q12H PRN 08/22/23 04/01/24 extended release 12 hr (Mucinex) naproxen sodium 220 mg tablet 220 mg PO Q12H PRN 09/28/23 04/01/24 (Aleve) prednisone 20 mg tablet 20 mg PO DAILY #16 tabs 10/03/23 04/01/24 aluminum-mag hydroxide-simethicone 10 ml PO QID PRN #148 mL 11/14/23 04/01/24 200 mg-200 mg-20 mg/5 mL oral susp (Antacid) fluticasone 250 mcg-salmeterol 50 1 inh inhalation BID #60 ea 11/15/23 04/01/24 mcg/dose blistr powdr for inhalation (Advair Diskus) lorazepam 0.5 mg tablet 0.5 mg PO DAILY PRN anxiety #10 11/15/23 04/01/24 tabs sertraline 50 mg tablet 50 mg PO DAILY #90 tabs 11/15/23 04/01/24 prednisone 20 mg tablet 20 mg PO DAILY #24 tabs 11/16/23 04/01/24 albuterol sulfate 90 mcg/actuation See Rx Instructions .Route 12/12/23 04/01/24 aerosol inhaler (Ventolin HFA) .COMPLEX #18 grams clotrimazole 10 mg john 10 mg mucous membrane TID #30 tabs 12/12/23 04/01/24 fluticasone propionate 115 2 puff inhalation BID #12 grams 12/12/23 04/01/24 mcg-salmeterol 21 mcg/actuation HFA inhaler (Advair HFA) albuterol sulfate 2.5 mg/3 mL 2.5 mg (3 mL) inhalation Q4H PRN 12/22/23 04/01/24 (0.083 %) solution for nebulization shortness of breath or wheezing #540 mL prednisone 10 mg tablet 20 mg PO DAILY 04/01/24 04/01/24 Previous Rx's ?Medication ?Instructions ?Recorded clotrimazole 10 mg john 10 mg mucous membrane ONCE #30 tabs 08/22/23 prednisone 20 mg tablet 20 mg PO DAILY #16 tabs 10/03/23 aluminum-mag hydroxide-simethicone 10 ml PO QID PRN #148 mL 11/14/23 200 mg-200 mg-20 mg/5 mL oral susp (Antacid) fluticasone 250 mcg-salmeterol 50 1 inh inhalation BID #60 ea 11/15/23 mcg/dose blistr powdr for inhalation (Advair Diskus) lorazepam 0.5 mg tablet 0.5 mg PO DAILY PRN anxiety #10 11/15/23 tabs sertraline 50 mg tablet 50 mg PO DAILY #90 tabs 11/15/23 prednisone 20 mg tablet 20 mg PO DAILY #24 tabs 11/16/23 albuterol sulfate 90 mcg/actuation See Rx Instructions .Route 12/12/23 aerosol inhaler (Ventolin HFA) .COMPLEX #18 grams clotrimazole 10 mg john 10 mg mucous membrane TID #30 tabs 12/12/23 fluticasone propionate 115 2 puff inhalation BID #12 grams 12/12/23 mcg-salmeterol 21 mcg/actuation HFA inhaler (Advair HFA) albuterol sulfate 2.5 mg/3 mL 2.5 mg (3 mL) inhalation Q4H PRN 12/22/23 (0.083 %) solution for nebulization shortness of breath or wheezing #540 mL Allergies Allergy/AdvReac Type Severity Reaction Status Date / Time pseudoephedrine (From AdvReac Unknown Other (See Verified 04/01/24 09:42 Sudafed) Comment) narcotics AdvReac Unknown gi upset Uncoded 04/01/24 09:42 General WES: 2 Medical Decision Making Quality:SDOH Health Related Social Needs: No Data to Display PFSH All Active Problems (Updated 04/01/24 @ 13:08 by Andres Vu MD) Right upper quadrant abdominal pain (Acute) Post-obstructive pneumonia due to foreign body aspiration (Acute) Metastatic primary lung cancer (Acute) High blood sugar (Acute) Thrush of mouth and esophagus (Acute) COPD (chronic obstructive pulmonary disease) (Chronic) Pulmonary nodule (Acute) Nicotine dependence, cigarettes, uncomplicated (Acute) Mass of upper lobe of right lung (Acute) Concussion (Acute) Dizziness (Acute) Anxiety (Chronic) Lesion of ulnar nerve (Acute) Ovarian cyst (Acute) Fatigue (Acute) Depression (Chronic) Abdominal pain (Acute) Bursitis (Acute) Back pain (Acute) Pelvic pain (Acute) Medical History Bowel habit changes Exposure to viral hepatitis (Suspected) Generalized hyperhidrosis Myalgia Paresthesia of skin Epigastric pain Cervical dysplasia Surgical History H/O LEEP Family History Mother Cancer family history of CA Mother bladder questioning ovarian ca Uncle brain CA Grand father CA unknown origin. Social History Smoking/Tobacco Use Status: Former Tobacco Use Quit Date: 10/31/23 Smoking risk assessment performed?: Yes Alcohol Intake: current Alcohol Intake frequency: holidays/special occasions only Drug use: Never Substance use type: does not use Housing: house Do you feel safe at home: Yes Do you feel safe in your relationship?: Yes
--- NOTE | 2024-04-01 09:45 | DI.RAD_ITS ---
Exam(s) XR CHEST 1V IN DI DEPT EXAM: XR CHEST 1V IN DI DEPT CLINICAL HISTORY: Lung cancer sepsis. TECHNIQUE: 2D digital imaging was performed. COMPARISON: CR XR CHEST 2V PA LATERAL from 09/29/2023 FINDINGS: Single AP portable view. Heart size is upper normal. The mediastinum is not widened. There is a right upper lobe mass again noted but this appears significantly smaller than on 4. No additional masses evident. No pleural effusions. No evidence of pulmonary edema. Visualized bones unremarkable. IMPRESSION: Right upper lobe neoplastic appearing mass. However, this has significantly decreased in size when c ompared to 09/29/2023.There are no pleural effusions. DATA REPOSITORY: RADIATION DOSE DELIVERED:
[2024-04-01 10:24] LABS: Lactate 1.6 mmol/L (0.6-1.4)
[2024-04-01 10:26] LABS: Abs Immature Grans 0.09 10^3/uL (0.0-0.06); Absolute Basophil Count 0.02 10^3/uL (0.0-0.2); Absolute Eosinophil Count 0.01 10^3/uL (0.0-0.7); Absolute Lymphocyte Count 0.59 10^3/uL (1.2-3.4); Absolute Monocyte Count 0.72 10^3/uL (0.1-0.8); Absolute Neutrophil Count 8.99 10^3/uL (1.2-6.7); Basophils % 0.2 %; Eosinophils % 0.1 %; HCT 47.5 % (36.0-46.0); HGB 16.1 g/dL (11.2-15.7); Immature Grans % 0.9 %; Lymphocytes % 5.7 %; MCHC 33.9 % (32.0-36.0); MCV 100 fL (80-95); MPV 8.3 fL (8.0-11.0); Monocytes % 6.9 %; Neutrophils % 86.2 %; Platelet Count 231 10^3/uL (130-400); RBC 4.74 10^6/uL (3.93-5.22); RDW 14.7 % (11.7-14.6); RDW-SD 54.4 fL; WBC 10.42 10^3/uL (4.4-10.8)
[2024-04-01] MEDS: Normal Saline 500 ML IV (10:35)
[2024-04-01 10:55] LABS: ALT 36 U/L (14-59); AST 18 U/L (15-37); Albumin 3.6 g/dL (3.4-5.0); Alkaline Phosphatase 99 U/L (46-116); Anion Gap 5.8 mmol/L (3-11); BUN 25 mg/dL (7-18); CO2 31.2 mmol/L (21.0-32.0); CREATININE 0.7 mg/dL (0.55-1.02); Calcium 9.3 mg/dL (8.5-10.1); Chloride 100 mmol/L (98-107); Estimated GFR 99.57 (mL/min/1.73m2); Glucose 117 mg/dL (74-106); Lipase 63 U/L (16-77); Potassium 3.8 mmol/L (3.5-5.1); Sodium 137 mmol/L (136-145); Total Protein 6.8 g/dL (6.4-8.2)
[2024-04-01 10:59] LABS: D-Dimer 237 ng/mlFEU (<500)
--- NOTE | 2024-04-01 11:00 | DI.CT_ITS ---
Exam(s) CT ABDOMEN PELVIS W EXAM: CT ABDOMEN PELVIS W CLINICAL HISTORY: Bloating right upper quadrant pain. TECHNIQUE: Imaging Protocol: Axial computed tomography images with coronal and sagittal reformatted images were created and reviewed CONTRAST MATERIAL: Intravenous: Omnipaque-350 100cc Oral: None COMPARISON: CT CT CHEST PE CTA from 11/14/2023 FINDINGS: VISUALIZED LUNG BASES: Some nodular infiltrate in the left lung base lingular segment noted. This wa s not previously present 11/14/2023. No pleural effusions.. ABDOMEN: There is no ascites. LIVER: There are no focal hepatic lesions evident. No dilated intrahepatic ducts. GALLBLADDER/BILIARY: No obvious gallbladder pathology. CBD is not dilated. PANCREAS: No evidence of pancreatic mass nor dilatation of the pancreatic duct. SPLEEN: Spleen is not enlarged. No obvious intrasplenic lesions. Splenic and portal veins are paten t. ADRENALS: There are no significant adrenal masses. KIDNEYS:No cysts evident. No solid renal masses. No calculi nor hydronephrosis.. ABDOMINAL AORTA: Abdominal aorta is not enlarged. LYMPH NODES:There is no retroperitoneal nor paraaortic adenopathy. ABDOMINAL WALL: No evidence of significant anterior abdominal wall nor inguinal hernia. GI: There is no evidence of bowel obstruction, free air, nor abscess. PELVIS: GI: No evidence of appendicitis.No evidence of sigmoid diverticulitis. LYMPH NODES: There is no intrapelvic nor inguinal adenopathy. REPRODUCTIVE: Endometrium appears slightly thickened for this age group. Abnormal adnexal masses. N o free fluid in the pelvis. URINARY BLADDER: No calculi nor obvious masses evident OSSEOUS: No fractures and no significant osseous lesions. IMPRESSION: 1. No obvious acute findings in the abdomen and pelvis. 2. Endometrium of the uterus appears slightly thickened and should be further studied with ultrasound . There are no abnormal adnexal masses. 3. There is a nodular infiltrate in the lingular segment of the left lung which was not evident on . Given the history here cannot exclude metastatic lesion. There are no pleural effusions. Called by myself to ER 04/01/2024 11:30 a.m. RADIATION DOSE DELIVERED: 202.29mGy.cm Total DLP DATA REPOSITORY: All CT scans at this facility are submitted to the National Radiology Data Registry (NRDR) Dose Index Registry (DIR) with the [employer] (ACR). RADIATION OPTIMIZATION: All CT scans at this facility use at least one of these dose optimization te chniques: automated exposure control; mA and/or kV adjustment per patient size (includes targeted exa ms where dose is matched to clinical indication); or iterative reconstruction.
[2024-04-01 11:04] LABS: Bilirubin Negative (Negative); Blood Negative (Negative); Clarity Clear (Clear); Glucose Negative (Negative); Ketones Negative (Negative); Leukocyte Esterase Negative (Negative); Nitrite Negative (Negative); Specific Gravity 1.025 (1.005-1.025); Urobilinogen 0.2 mg/dL (Up to 0.2); pH 5.5 (5-8)
[2024-04-01] MEDS: Normal Saline - Diluent 50 ML VIAL IJ (11:12)
[2024-04-01] MEDS: Omnipaque 350 MG/ML 100 ML BTL 80 ML IJ (11:13)
--- NOTE | 2024-04-01 11:30 | DI.US_ITS ---
Exam(s) US ABDOMEN LIMITED EXAM: US ABDOMEN LIMITED CLINICAL HISTORY: Right upper quadrant pain TECHNIQUE: Ultrasound abdomen performed using standard protocol. COMPARISON: US US ABDOMEN LIMITED from 08/04/[address] ABDOMEN PELVIS W from 04/01/2024 FINDINGS: There is no ascites evident. LIVER: There are no hepatic lesions evident nor dilatation of intrahepatic ducts. GALLBLADDER/BILIARY: There are no gallstones. No gallbladder wall edema nor pericholecystic fluid. The common hepatic duct isnot dilated, measuring 5-6mm at the level of matthias hepatis. PANCREAS: There is no evidence of pancreatic mass nor dilatation of the pancreatic duct. RIGHT KIDNEY:No evidence of solid mass, calculus, nor hydronephrosis. No cortical cysts evident. IMPRESSION: 1. No evidence of cholelithiasis nor dilatation of the biliary tree. 2. No other significant ultrasound findings in the right upper quadrant. 3. There is no ascites. DATA REPOSITORY:
== END 2024-04-01 13:23 | disposition home or self-care (01) ==
PROVIDERS: Emergency Provider Emergency Medicine; PCP Internal Medicine Medical Oncology
DX: R10.11 Right upper quadrant pain (principal); R14.0 Abdominal distension (gaseous); C34.11 Malignant neoplasm of upper lobe, right bronchus or lung; J44.9 Chronic obstructive pulmonary disease, unspecified; Z87.891 Personal history of nicotine dependence
CPT/HCPCS: 80053; 83690; 87040; 96360; 96361; 99285; 71045; 74177; 76705; 81003; 83605; 85025; 85379; 99284; J3490

== ENCOUNTER 2024-05-28 11:38 | Outpatient (CLI) | payer MEDICAID, SELFPAY ==
--- OUTSIDE RECORDS SUMMARY | 2024-05-28 11:40 | XMS_ITS ---
Author Organization [facility] [place] [address] Care Team Providers Care Retail Wireless Sales Representative Name Role Phone Unknown Primary Care Provider Unavailabl e Active Problems Problem Noted Date Diagnosed Date Primary malignant neoplasm of right upper lobe o f lung 10/17/2023 High risk medication use 10/17/2023 Mass of upper lobe of right lung 02/10/2022 Chronic back pain 04/13/2016 PTSD (post-traumatic stress disorder) 07/06/2011 Fibromyalgia 07/06/2011 Current Oncology Plans BCN AMB ONC NONSMALL CELL LUNG CANCER - CARBOplatin / PEMEtrexed / PEMBROLIZUMAB* Plan Start Date:11/01/2023 Plan Provider:Osvaldo Hatch MD Linked Problems High risk medication usePrim taty malignant neoplasm of right upper lobe of lung Treatment Medications Current Day (Day 1 , Cycle 5 - Planned for 04/01/2024) Next Day (Day 1, Cycle 6 - Planned for 04/22/2024) CARBOplatin (Paraplatin) in 150 mL infusionpembrolizumab (Keytruda) in sodium chloride 0.9% 100 mL infusionpembrolizumab (Keytruda) Recon SolnPEMEtrexed (Alimta) in sodium chloride 0.9% 100 mL infusionPEMEtrexed (Alimta) Recon Soln pembrolizumab (Keytruda) 200 mg in sodium chloride 0.9% 108 mL infusionPEMEtrexed disodium (Alimta) 800 mg in sodium chloride 0.9% 132 mL infusion pembrolizumab (Keytruda) 200 mg in sodium chloride 0.9% 108 mL infusionPEMEtrexed disodium (Alimta) 800 mg in sodium chloride 0.9% 132 mL infusion Past Plans No past plan information found. Radiation Treatments * No radiation treatments are documented for this patient in [facility]. Treatments may have been administered in another system.
--- OUTSIDE RECORDS SUMMARY | 2024-05-28 11:40 | XMS_ITS | Encounter Summary ---
Author Organization [facility] Address [facility] [place] [address] Care Team Providers Care Web Graphic Designer Name Role Phone Unknown Primary Care Provider Unavailabl e Reason for Visit * Reason Onset Date Comments Generalized Body Aches 05/27/2024 Encounter Details Date Type Department Care Team (Late st Contact Info) Description 05/27/2024 Telephone Hematology/Oncology at [address] [phone] Simin Jung RN Generalized Body Aches Social History Tobacco Use Types Packs/Day Years Used Date Smoking Tobacco: Every Day Cigarettes Smokeless Tobacco: Never [facility] Utilities Answer Date Recorded In the past 12 months has e electric, gas, oil, or water company threatened to shut off services in your home? Yes 10/16/2023 Overall Financial Resource Strain (CARDIA) Answe r Date Recorded How hard is it for you to pa y for the very basics like food, housing, medical care, and heating? Very hard 10/16/2023 Hunger Vital Sign Answer Date Recorded Within the past 12 months, y ou worried that your food would run out before you got the money to buy more. Often true 10/16/19 24 Within the past 12 months, t he food you bought just didn't last and you didn't have money to get more. Often true 10/16/2023 PRAPARE - Transportation Answer Date Re corded In the past 12 months, has l ack of transportation kept you from medical appointments or from getting medications? Yes 07/2023 In the past 12 months, has l ack of transportation kept you from meetings, work, or from getting things needed for daily living? Yes 10/16/2023 Housing Stability Vital Sign Answer Matt e Recorded In the last 12 months, was t here a time when you were not able to pay the mortgage or rent on time? Yes 10/16/2023 In the last 12 months, how many places have you lived? 2 10/16/2023 In the last 12 months, was t here a time when you did not have a steady place to sleep or slept in a mcc (including now)? Yes 10/16/2023 Sex and Gender Information Value Date Recorded Sex Assigned at Not on file Gender Identity Not on file Sexual Orientation Not on file documented as of this encounter Miscellaneous Notes * Telephone Encounter - Simin Jung RN - 05/27/2024 2:37 PM EST Called Nakita to let her know the providers would like to check some adrenal labs and get a PET scan. She will have labs tomorrow at [facility] and would like the PET in [place]. We will get back in touch with her tomorrow to review lab results. * Telephone Encounter - Simin Jung RN - 05/27/2024 12:52 PM EST Caller: Nakita Relationship: Self Clarified Two Patient Identifiers: [x] Reason For Call: Generalized Body Aches Assessment/Symptom Review (onset, location, duration, what makes it better or worse, pertinent positives and negatives): Nakita called to report she thinks she is having withdrawals from the prednisone. She has lost half her hair, haing major body aches all over. Her chronic right sided stomach pain she thinks is fromthe prednisone affecting her adrenal glands. She also reports fatigue, dizziness, shaking, chills. Denies fevers. Refuses a COVID test. Reports its an asthma flare and she gets a cold every year atthis time. She reports her stomach is better after she stopped all the recommended bowel med and started a pre/probiotic. Bloating and gas are down. She stopped the prednisone about 3 weeks ago. She does not have a PCP. Reporting she has tried everyone in [facility] and everyone is 2-3 amarjit h wait. Review of Systems Related to Reason for Call: System POS NEG Not Applicable Head (ENT /Neuro) [] [x] [] Cardiac [] [x] [] Respiratory [x] [] [] GI [x] [] [] [] [x] [] Musculoskeletal [x] [] [] Integumentary [] [x] [] Mental Health [x] [] [] Select Specific Decision Support Tool Used: None available, provider to review Disposition/Plan of Care: Defer to provider recommendation Patient/Caregiver verbalizes understanding of plan of care: Yes Patient/Caregiver agrees with plan: Yes Advised patient/caregiver to: call office back for any new or worsening symptoms Patient/Caregiver demonstrates understanding via teach back: Yes * Telephone Encounter - Simin Jung RN - 05/27/2024 12:52 PM EST ----- Message from Brenda Rosa sent at 05/27/2024 10:03 AM EST ----- Nakita called and said that her hair is falling out, and she believes that she is having withdrawal symptoms from the high doses of prednisone. She is having a hard time of getting out of bed, she hurts all over. Please call her back at [phone] Thank you Brenda documented in this encounter Plan of Treatment Upcoming Encounters Date Type Department Care Team (Late st Contact Info) Description 06/21/2024 3:00 PM EST Appointment [place] [phone] Dana Nevarez APRN [address] [place] [address] DR HEMATOLOGY AND ONCOLOGY [place], [place] [id number] 06/24/2024 2:30 PM EST Office Visit Hematology/Oncology at [address] [phone] Osvaldo Hatch MD [facility] DR HEMATOLOGY [place] [address] Dana Nevarez APRN [address] [place] [address] DR HEMATOLOGY [place] [address] documented as of this encounter Visit Diagnoses Not on filedocumented in this encounter Care Teams Web Graphic Designer Relationship Specialty Start Date End Date Unknown None PCP - General 06/27/23 documented as of this encounter
--- OUTSIDE RECORDS SUMMARY | 2024-05-28 11:40 | XMS_ITS | Clinical Summary ---
Author Organization Pending [facility] To [facility] Address [facility] [place] [address] Care Team Providers Care Dinkey Locomotive Engineer Name Role Phone Unknown Primary Care Provider Unavailabl e Allergies Active Allergy Reactions Criticality Noted Date Comments Unclassified Drug 04/13/2016 Narcotics very sensitive to them all causes patient to be very sick Medications Medication Sig Dispensed Refills Start Date End Date Status naproxen sodium (ANAPROX) 220 mg Tablet Take 440 mg by mouth 2 times daily (with meals). Active Ventolin HFA 90 mcg/actuation HFA Aerosol Inhaler 02/08/2022 Active acetaminophen (Tylenol) 500 mg tablet Take 1,000 mg by mouth every 6 hours as needed for Pain. Active ascorbic acid, Vitamin C, (Vitamin C) 500 mg tablet Take 500 mg by mouth Daily @ 0600. Active cholecalciferol (Vitamin D3) 400 unit tablet Take 400 Units by mouth Daily @ 0600. Active ePHEDrine sulfate (Bronkaid Max) 25 mg Tablet Take 25 mg by mouth 4 times daily. Active folic acid (Vitamin B9) 1 mg tabletIndications:Pr imary malignant neoplasm of right upper lobe of lung Take 1 tablet by mouth daily. 90 tablet 3 11/01/2023 Active traMADoL (Ultram) 50 mg tablet Take 1 tablet by mouth every 8 hours as needed for Pain. 40 tablet 11/06/2023 Active Additional Information Patient not taking.Reported on 11/27/2023 LORazepam (Ativan) 0.5 mg tablet TAKE ONE-HALF TO ONE TABLET BY MOUTH ONCE 15 MIN PRIOR TO INFUSION NEEDED 11/15/2023 Active Advair Diskus 250-50 mcg/dose inhaler (DPI) Inhale 1 puff into the lungs 2 times daily. 11/15/2023 Active ipratropium-albutero L (Combivent Respimat) 20-100 mcg/actuation inhaler Inhale 2 puffs into the lungs every 4 hours as needed for Wheezing. 1 each 12 12/12/2023 Active ondansetron ODT (Zofran-ODT) 4 mg disintegrating tabletIndications:Ch emotherapy induced nausea and vomiting Take 1-2 tablets by mouth every 8 hours as needed for Nausea. 20 tablet 3 12/20/2023 Active prochlorperazine (Compazine) 10 mg tabletIndications:Ch emotherapy induced nausea and vomiting Take 1 tablet by mouth every 6 hours as needed for Nausea. 30 tablet 3 12/20/2023 Active Mucinex 600 mg ER 12 hr tablet Take 2 tablets by mouth 2 times daily for 120 days. 120 tablet 3 03/04/2024 Active sulfamethoxazole-tri methoprim DS (Bactrim DS) 800-160 mg tablet Take 1 tablet by mouth three times a week (Mon, Weds, Fri). 21 tablet 1 03/04/2024 Active polyethylene glycoL (Miralax) 17 gram/dose Powder Take 17 g by mouth daily as needed. 510 g 5 03/22/2024 Active omeprazole (PriLOSEC) [address] capsuleIndications:U pper abdominal pain Take 1 capsule by mouth daily. 30 capsule 11 04/01/2024 5 Active Active Problems Problem Noted Date Diagnosed Date Primary malignant neoplasm of right upper lobe o f lung 10/17/2023 High risk medication use 10/17/2023 Mass of upper lobe of right lung 02/10/2022 Chronic back pain 04/13/2016 PTSD (post-traumatic stress disorder) 07/06/2011 Fibromyalgia 07/06/2011 Encounters Date Type Department Care Team Description 05/27/2024 Orders Only Hematology/Oncology at [address] [phone] Dana Nevarez APRN Primary malignant neoplasm of right upper lobe of lung; High risk medication use 05/27/2024 Telephone Hematology/Oncology at [address] [phone] Simin Jung RN Generalized Body Aches 05/20/2024 Telephone Hematology/Oncology at [address] [place] [phone] Osvaldo Hatch MD 05/19/2024 Refill Hematology/Oncology at [address] [place] [phone] Osvaldo Hatch MD 05/07/2024 Travel 05/07/2024 Telephone Hematology/Oncology at [address] [place] [phone] Michelle Marsh, SURGICAL AIDE Other (Financial resource) 05/02/2024 Travel 05/02/2024 Telephone Hematology/Oncology at [address] [place] [phone] Michelle Marsh, SURGICAL AIDE Other (Financial resource) 04/29/2024 Travel 04/29/2024 Telephone Hematology/Oncology at [address] [place] [phone] Michelle Marsh, SURGICAL AIDE Other (Financial assistance) 04/19/2024 Orders Only Hematology/Oncology at [address] [place] [phone] Dana Nevarez ASSOCIATE PROFESSOR OF CRIMINAL JUSTICE Primary malignant neoplasm of right upper lobe of lung; Upper abdominal pain; Constipation, unspecified constipation type; Abdominal bloating 04/17/2024 Telephone Hematology/Oncology at [address] [place] [phone] Dana Nevarez APRN 04/16/2024 Telephone Hematology/Oncology at [address] [place] [phone] Michelle Marsh, SURGICAL AIDE Other (Financial assistance) 04/16/2024 Orders Only Hematology/Oncology at [address] [place] [phone] Dana Nevarez APRN Primary malignant neoplasm of right upper lobe of lung; Pneumonitis 04/15/2024 Telephone Hematology/Oncology at [address] [phone] Susan Rodgers RN Follow-up (Prednisone taper) 04/15/2024 Travel 04/15/2024 Telephone Hematology/Oncology at [address] [phone] Michelle Marsh, SURGICAL AIDE Other (Financial resources/bills) 04/09/2024 Telephone Hematology/Oncology at [address] [phone] Michelle Marsh, SURGICAL AIDE Other (Housing issues) 04/08/2024 Telephone Hematology/Oncology [place] [address] [place] [phone] Simin Jung RN 04/08/2024 Travel 04/08/2024 Telephone Hematology/Oncology at [address] [place] [phone] Michelle Marsh, SURGICAL AIDE Other (Community resource/food security) 04/05/2024 Orders Only Hematology/Oncology at [address] [place] [phone] Dana Nevarez APRN Primary malignant neoplasm of right upper lobe of lung; Pneumonitis 04/02/2024 Telephone Hematology/Oncology at [address] [phone] Susan Rodgers RN Cough 04/01/2024 11:30 AM EDT Office Visit Hematology/Oncology at [address] [place] [phone] Osvaldo Hatch MD LaRoza, Stephanie A, APRN Primary malignant neoplasm of right upper lobe of lung; Upper abdominal pain 04/01/2024 Travel 03/29/2024 Telephone Hematology/Oncology at [address] [place] [phone] Simin Jung RN 03/29/2024 Orders Only Hematology [place] [address] Osvaldo Hatch MD Primary malignant neoplasm of right upper lobe of lung 03/25/2024 Travel 03/25/2024 Telephone Hematology/Oncology at [address] [phone] Michelle Marsh, SURGICAL AIDE Other (Financial resources) 03/22/2024 Orders Only Hematology [place] [phone] Osvaldo Hatch MD Constipation, unspecified constipation type 03/22/2024 Telephone Hematology/Oncology at [address] [phone] Diana Yanez RN Constipation (Things moving) 03/19/2024 Telephone Hematology Oncology at [address] [phone] Shavon Arce RN 03/11/2024 Telephone Hematology/Oncology at [address] [phone] Simin Jung RN 03/07/2024 Travel 03/07/2024 Telephone Hematology/Oncology at [address] [phone] Michelle Marsh, SURGICAL AIDE Other (Financial resources) 03/04/2024 11:30 AM EDT Office Visit Hematology/Oncology at [address] [phone] Osvaldo Hatch MD LaRoza, Stephanie A, APRN Primary malignant neoplasm of right upper lobe of lung; Pneumonitis; COPD with exacerbation 03/04/2024 Travel 03/01/2024 Orders Only Hematology [place] [phone] Osvaldo Hatch MD 02/29/2024 Travel 02/29/2024 Telephone Hematology/Oncology at [address] [phone] RuedMichelle hurtado MSW Other (Financial assistance) 02/28/2024 Orders Only Hematology [place] [address] Osvaldo Hatch MD Pneumonitis 02/28/2024 Telephone Hematology/Oncology at [address] [phone] Maura Ford RN Questions from Last 3 Months Family History Medical History Relation Comments Arthritis Maternal Grandmother Relation Status Comments Maternal Grandmother Social History Tobacco Use Types Packs/Day Years Used Date Smoking Tobacco: Every Day Cigarettes Smokeless Tobacco: Never Tobacco Cessation:Ready to Q uit: Not Asked; Counseling Given: Not Answered [facility] Utilities Answer Date Recorded In the past 12 months has th e electric, gas, oil, or water company [...] place to sleep or slept in a fci (including now)? Yes 10/16/2023 Sex and Gender Information Value Date Recorded Sex Assigned at Not on file Gender Identity Not on file Sexual Orientation Not on file Last Filed Vital Signs Vital Sign Reading Time Taken Comments Blood Pressure 137/72 04/01/2024 1:45 PM EDT Pulse 116 04/01/2024 1:45 PM EDT Temperature 36.7 ??C (98 ??F) 04/01/2024 1:45 PM EDT Respiratory Rate 18 04/01/2024 1:45 PM EDT Oxygen Saturation 95% 04/01/2024 1:45 PM EDT Inhaled Oxygen Concentration - - Weight 54.6 kg (120 lb 6.4 oz) 04/01/2024 1:45 P M EDT Height 166.1 cm (5' 5.39) 04/01/2024 1:45 PM ED T Body Mass Index 19.79 04/01/2024 1:45 PM EDT Plan of Treatment Upcoming Encounters Date Type Department Care Team (Late st Contact Info) Description 06/21/2024 3:00 PM EST Appointment [place] [phone] HEMATOLOGY AND ONCOLOGY [place], [place] [phone] 06/24/2024 2:30 PM EST Office Visit Hematology/Oncology at [address] [phone] Osvaldo Hatch MD [facility] DR HEMATOLOGY [place] [address] [address] HEMATOLOGY AND ONCOLOGY [place], [place] [phone] Health Maintenance Due Date Last Done Comments CT Colonography 1964 Colonoscopy 1964 Colorectal Cancer Screening 1964 FIT DNA 1964 FIT 1964 Sigmoidoscopy (10 year) with FIT yearly 1964 Sigmoidoscopy 1964 Pneumococcal Vaccine: At-Risk 5-64yrs (1 of 2 - PCV) 0 1970 HIV screen 1982 Hepatitis C Screening 1982 Lipid Screening 1982 Hepatitis B vaccine (0-59 yrs) (1) 12/14/1983 Tetanus/Diphtheria/Pertussis Vaccines (1 - Tdap) 12/13 HPV test 1994 PAP Smear 1994 Breast Cancer Share Decision Needed 2004 Breast Cancer screening 2004 Zoster vaccine (1 of 2) 2014 Advance Directive 12/14/2019 Covid-19 Vaccine (1 - season) 2024 Influenza (Flu) vaccine (1 o f 1 - Influenza standard series) 03/17/2024 Procedures Procedure Name Priority Date/Time Associated Diagnosis Comments LAB SCAN 04/01/2024 12:00 AM EDT LAB SCAN 03/04/2024 12:00 AM EDT from Last 3 Months Results * Scan Doc: Lab (04/01/2024 12:00 AM EDT) Only the most recent of2 resultswithin the time period is included. Narrative 04/01/2024 12:00 AM EDT Ordered by an unspecified provider. Scanning Provider MEDIA MGR SCAN EXT O RDR/RSLT from Last 3 Months Care Teams Dinkey Locomotive Engineer Relationship Specialty Start Date End Date Unknown None PCP - General 06/27/23
--- OUTSIDE RECORDS SUMMARY | 2024-05-28 11:40 | XMS_ITS | Encounter Summary ---
[place] [address] Care Team Providers Care Restaurant Kitchen And Service Manager Name Role Phone Unknown Primary Care Provider Unavailabl e Reason for Referral * Diagnostic Test (Routine) - Authorized Specialty Diagnoses / Procedures Referred By Contac t Referred To Contact Radiology Diagnoses Primary malignant neoplasm of right upper lobe of lung Procedures NM Powell PET CT Skull Base to Mid-thigh Dana Nevarez APRN [address] [place] [address] DR [place] [address] [place] [address] Referral ID Status Reason Start Date Expiration Date Visits Requested Visits Authorized [id number] Authorized Specialty Service Requested 4 11/24/2025 1 1 Encounter Details Date Type Department Care Team (Late st Contact Info) Description 05/27/2024 Orders Only Hematology/Oncology at [address] [phone] Dana Nevarez APRN [address] [place] [address] DR HEMATOLOGY AND ONCOLOGY [place], [place] [phone] Primary malignant neoplasm of right upper lobe of lung; High risk medication use Social History Tobacco Use Types Packs/Day Years Used Date Smoking Tobacco: Every Day Cigarettes Smokeless Tobacco: Never [facility] Utilities Answer Date Recorded In the [...] place to sleep or slept in a [place] (including now)? Yes 10/16/2023 Sex and Gender Information Value Date Recorded Sex Assigned at Not on file Gender Identity Not on file Sexual Orientation Not on file documented as of this encounter Plan of Treatment Upcoming Encounters Date Type Department Care Team (Late st Contact Info) Description 06/21/2024 3:00 PM EST Appointment [place] [phone] Dana Nevarez APRN [address] [place] [address] DR HEMATOLOGY AND ONCOLOGY [place], [place] [phone] 06/24/2024 2:30 PM EST Office Visit Hematology/Oncology at [address] [phone] [facility] DR [place] [address] Dana Nevarez, [address] [place] [address] Scheduled Orders Name Type Priority Associated Diagnoses Orde r Schedule ACTH Lab Routine High risk medication use Expected: 06/03/2024, Expires: 11/24/2024 TSH Lab Routine High risk medication use Expected: 06/03/2024, Expires: 05/27/2025 T4, free Lab Routine High risk medication use Expected: 06/03/2024, Expires: 05/27/2025 Cortisol Lab Routine High risk medication use Expected: 06/03/2024, Expires: 05/27/2025 Comprehensive metabolic panel Non-fasting Lab Routine Primary malignant neoplasm of right upper lobe of lung High risk medication use Expected: 06/03/2024, Expires: 05/27/[address] Skull Base to Mid-thigh Imaging Routine Primary malignant neoplasm of right upper lobe of lung Expected: 06/10/2024 (Approximate), Expires: 11/24/2024 documented as of this encounter Visit Diagnoses Diagnosis Primary malignant neoplasm of right upper lobe of lung Malignant neoplasm of upper lobe, bronchus or lung High risk medication use Encounter for long-term (current) use of other medications documented in this encounter Care Teams Restaurant Kitchen And Service Manager Relationship Specialty Start Date End Date Unknown None PCP - General 06/27/23 documented as of this encounter
--- OUTSIDE RECORDS SUMMARY | 2024-05-28 11:40 | XMS_ITS | Encounter Summary ---
Author Organization [facility] [place] [address] Care Team Providers Care Hvac Service Tech Name Role Phone Unknown Primary Care Provider Unavailabl e Encounter Details Date Type Department Care Team (Late st Contact Info) Description 05/20/2024 Telephone Hematology/Oncology at [address] [phone] Osvaldo Hatch MD [facility] DR HEMATOLOGY [place] [address] Social History Tobacco Use Types Packs/Day Years Used Date Smoking Tobacco: Every Day Cigarettes Smokeless Tobacco: Never [facility] Utilities Answer Date Recorded In the past [...] place to sleep or slept in a prison (including now)? Yes 10/16/2023 Sex and Gender Information Value Date Recorded Sex Assigned at Not on file Gender Identity Not on file Sexual Orientation Not on file documented as of this encounter Miscellaneous Notes * Telephone Encounter - Osvaldo Hatch MD - 05/20/2024 10:03 AM EST Telephone [facility] Received automated notification that she was due for Bactrim. We have not seen her since early March so I called her. She relates that she is starting to feel a bit better. She has stopped most of the medications including the prednisone. She still is having stomach issues and has seen a surgeon locally and has follow-up scheduled for May 23. She also started pre and probiotics Wants to deal with her stomach issues prior to focusing on her cancer Very worried about losing her home. Has already spoken with our SW which has been very helpful-declined my suggestion for social work to reach back out to her Seeing the surgeon on the 05/23 and is considering a colonoscopy. We left it that she will see the surgeon and address her current GI symptoms and then reach out to us so that we can discuss options for treating her cancer. Did discuss that we would want to get some scans and reassess where things stand at this point. If we do not hear from her in the next 2-3 weeks we will asked electric wheelchair repairer to reach out to her. Osvaldo Hatch MD, MS 05/20/2024 Medical Oncology & Hematology [facility] documented in this encounter Plan of Treatment Upcoming Encounters Date Type Department Care Team (Late st Contact Info) Description 06/21/2024 3:00 PM EST Appointment [place] [address] [address] HEMATOLOGY AND ONCOLOGY [place], [place] [address] 06/24/2024 2:30 PM EST Office Visit Hematology/Oncology at [address] [phone] Osvaldo Hatch MD [facility] DR HEMATOLOGY [place] [address] [address] [place] [address] documented as of this encounter Visit Diagnoses Not on filedocumented in this encounter Care Teams Hvac Service Tech Relationship Specialty Start Date End Date Unknown None PCP - General 06/27/23 documented as of this encounter
--- OUTSIDE RECORDS SUMMARY | 2024-05-28 11:40 | XMS_ITS | Encounter Summary ---
Author Organization [facility] [place] [address] Care Team Providers Care Personal Injury Attorney Name Role Phone Unknown Primary Care Provider Unavailabl e Reason for Visit * Reason Comments Medication Refill Encounter Details Date Type Department Care Team (Late st Contact Info) Description 05/19/2024 Refill Hematology/Oncology at [address] [phone] Osvaldo Hatch MD [facility] [place] [address] Social History Tobacco Use Types Packs/Day Years Used Date Smoking Tobacco: Every Day Cigarettes Smokeless Tobacco: Never [facility] Utilities Answer Date Recorded In the [...] place to sleep or slept in a skilled nursing (including now)? Yes 10/16/2023 Sex and Gender Information Value Date Recorded Sex Assigned at Not on file Gender Identity Not on file Sexual Orientation Not on file documented as of this encounter Plan of Treatment Upcoming Encounters Date Type Department Care Team (Late st Contact Info) Description 06/21/2024 3:00 PM EST Appointment [place] [address] [address] HEMATOLOGY AND ONCOLOGY [place], [place] [address] 06/24/2024 2:30 PM EST Office Visit Hematology/Oncology at [address] [phone] Osvaldo Hatch MD [facility] DR [place] [address] [address] [place] [address] documented as of this encounter Visit Diagnoses Not on filedocumented in this encounter Care Teams Personal Injury Attorney Relationship Specialty Start Date End Date Unknown None PCP - General 06/27/23 documented as of this encounter
--- OUTSIDE RECORDS SUMMARY | 2024-05-28 11:41 | XMS_ITS | Encounter Summary ---
Author Organization [facility] Address [facility] [place] [address] Care Team Providers Care Node Js Developer Name Role Phone Unknown Primary Care Provider Unavailabl e Encounter Details Date Type Department Care Team (Late st Contact Info) Description 04/01/2024 11:30 AM EDT Office Visit Hematology/Oncology at [address] [phone] Osvaldo Hatch MD [facility] DR HEMATOLOGY [place] [address] Dana Nevarez APRN [address] [place] [address] DR HEMATOLOGY AND ONCOLOGY [place], [place] [id number] Primary malignant neoplasm of right upper lobe of lung; Upper abdominal pain Social History Tobacco Use Types Packs/Day Years Used Date Smoking Tobacco: Every Day Cigarettes Smokeless Tobacco: Never [facility] Utilities Answer Date Recorded In the past 12 months has [place], gas, oil, or water [employer] threatened to shut off services in your home? Yes 10/16/2023 Overall Financial Resource Strain (CARDIA) Italiae r Date Recorded How hard is it [...] place to sleep or slept in a usp (including now)? Yes 10/16/2023 Sex and Gender Information Value Date Recorded Sex Assigned at Not on file Gender Identity Not on file Sexual Orientation Not on file documented as of this encounter Last Filed Vital Signs Vital Sign Reading [...] Mass Index 19.79 04/01/2024 1:45 PM EDT documented in this encounter Progress Notes * Dana Nevarez APRN - 04/01/2024 11:30 AM EDT Images from the original note were not included. Thoracic Oncology [facility] [address] [phone] Nakita Ashraf [place] is being seen for the evaluation of lung cancer. Assessment & Plan: Nakita Hancock is a 58 y.o. female patient with a past medical history notable for long-term tobacco use originally found to have a right upper lobe nodule in 2017 and has not responded to herbal remedies thus far and has now become more widespread and sympotmatic. She would like to consider additional treatment options. Repeat PET scan confirmed growing malignancy, new RML metastasis, and new small R femoral metastasis. Began palliative intent carboplatin/pemetrexed/pembrolizumab on 10/31/23. Pet scan personally reviewed with an excellent response to treatment but also with changes c/w pneumonitis. # NSCLC - - Continue to hold treatment for now. Her pneumonitis seems much improved, but she remains on high dose steroids. She does not want to resume therapy until her abd symptoms have resolved. - I have asked her to drop her prednisone to 40 mg starting tomorrow AM, and in 1 week drop to 20, then 1 week at 10mg. I will ask nursing to call her weekly to check on this. - I have asked her to start omeprazole 20mg BID on the chance that her abd discomfort/bloating are caused by GI irritation from the extended high dose steroids. - RTC in 2 weeks. We discussed the option of considering ablative therapy with concurrent chemoRTand XRT to her bone lesion, but she is apprehensive. We did review that we would have to discuss with CT tumor board, but she is not currently wanting us to have this conversation. It's pretty clear that we cannot resume immunotherapy, however continuing pemetrexed alone is another option. # Pneumonitis - immune mediated. Much improved. Steroid taper as above. Nursing to follow. # Incidental finding on abd CT - endometrial thickening, US recommended, I have encouraged her to f/u with a PCP on this. Her most recent PET was negative for any FDG avid disease in the uterus. Dana Nevarez, [employer] 04/01/24 Medical Oncology & Hematology [facility] [place] [facility] CC: HPI/Interval History/Subjective: Last seen 03/04/2024 Was in the ER this morning for abd distention/ RUQ pain. Multiple images done and are negative. There was an elevated lactate/WBC/ANC/HR, concern for sepsis based on ER note, and she declined the antibiotics. She is currently on 60mg prednisone - She was asked to drop to 40mg last week but for reasons that are not clear did not do this. Breathing is improved on the steroids, however her abd distension makes her uncomfortable and feel like she can't take a deep breath. This has been going on for a couple weeks. She's used a variety of bowel management tools, andis passing gas/stool. Tells me she has quit smoking. Anxiety is better as her breathing jareth improved. No need lorazepam. Social History/Support Network: Home situation: Single parent. 15 year old daughter- Oliva. Originally from [place]. 25 year old son Annette is her emergency contact. Employment: [employer] Tobacco use: 1 pack/day smoking history for many years Alcohol use: Drug use: Financial Distress: Social Determinants of Health Financial Resource Strain: High Risk (10/16/2023) Overall Financial Resource Strain (CARDIA) Difficulty of Paying Living Expenses: Very hard Food Insecurity: Food Insecurity Present (10/16/2023) Hunger Vital Sign Worried About Running Out of Food in the Last Year: Often true Ran Out of Food in the Last Year: Often true Transportation Needs: Unmet Transportation Needs (10/16/2023) PRAPARE - Transportation Lack of Transportation (Medical): Yes Lack of Transportation (Non-Medical): Yes Physical Activity: Not on file Housing Stability: High Risk (10/16/2023) Housing Stability Vital Sign Unable to Pay for Housing in the Last Year: Yes Number of Places Lived in the Last Year: 2 Unstable Housing in the Last Year: Yes Intimate Partner Violence: Not on file Utilities: At Risk (10/16/2023) [facility] Utilities Threatened with loss of utilities: Yes Health Literacy: Not on file Family History: Mother- Dscd ovarian cancer and bladder cancer by report Father- Dscd And maternal grandfather had lung cancer A daughter had leukemia (sounds like APML) and was cured by systemic therapy. Family History Problem Relation Age of Onset Arthritis Maternal Grandmother Oncology Overview: Screen shot from Dr. Rosario's records at [facility] In progress Presentation: Nakita Hancock is a 57 y.o. female patient with a past medical history significant for long-term tobacco use, PTSD, gluten sensitivity originally noted to have 811 mm right upper lobenodule on a CT scan in September 2016 that was obtained to rule out a pulmonary embolus. A referral hasbeen made at that time for consultation with thoracic surgery. She did not attend that visit. In 2021 [address] scan demonstrated that the lesion had grown to 5.3 cm. At that time she met with thoracic surgery at [facility]. For evaluation with staging EBUS was planned. She did not come to the visit. She was also referred to medical oncology at that time but did not come. Multiple telephone calls were made and letters sent in hopes that she might reschedule. She ultimately connected with [facility] pulmonary medical oncology and underwent additional evaluation with her last imaging and we will follow-up 2022. She underwent a bronchoscopy on 02/2523 which identified a adenocarcinoma of lung origin from the rightupper lobe. Treatment was planned for a T4 N2 adenocarcinoma of the right upper lobe with systemic t herapy to be followed by possible radiation per my review of the records but she indicates that shedid not start the treatment given concern for the damage that chemotherapy would do to her body. Staging/PreTx Eval: 10.12.[address] chest 01.13.22 MRI Brain- no metastases 01.31.22 PET scan 1. FDG avid 5.5 cm RIGHT upper lobe mass, highly suspicious for primary lung malignancy. 2. No regional or distant sites of metastasis. 3. CT visualized subcentimeter opacity at the posterior margin of the right lower lobe, similar in size compared to CT of 10/12/2016, strongly favoring a benign etiology. 02.08.23 PET scan ([facility]) 1. The large primary mass in the apical segment of the right upper lobe has been increasing in sizegoing back to December 2021, including since the most recent CT chest in November 2022, measurements as above. 2. Since the prior PET in January 2022, there is evidence of progression of lymphangitic spread of tumor within the right upper lobe and new FDG avid right hilar and mediastinal lymph nodes. Also more apparent than on the prior PET is a focus of FDG-avid nodular thickening in the left adrenal gland highly concerning for metastasis. No evidence of abdominopelvic jewels disease. 03.10.23 Bronchoscopy EBUS-TBNA 04/14/23 MRI Abdomen IMPRESSION Mild nodularity of the inner limb of the left adrenal gland, stable since 2017. Consider follow-up with PET/CT given described uptake in the left adrenal gland. 05/08/23 -repeat imaging I reviewed records indicating enlargement of the right upper lobe mass with a new right middle lobe nodule and left-sided masses most likely to represent metastatic disease and the plan at [facility] was for systemic therapy followed by consolidative radiation 10.27.23 PET Scan IMPRESSION 1. Right upper lobe centrally necrotic mass extending into the right hilum is consistent with the diagnosis of lung malignancy. 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 2. No mediastinal lymphadenopathy identified. 3. No adrenal metastases identified. 4. New 9 mm right middle lobe metastasis. 5. New right femoral neck metastasis. No CT correlate. 10.31.23 MRI Brain Pathology: S Molecular Data: NA Treatment Course: 11.01.23 C1 Carbo/pem/pem 5..24 C2 Carbo/pem/pem 5.. CT Chest 12/20/23 C3 carbo/pem/pem 8..24 PET New GGOs c/w pnuemonitis- started steroid taper 12/20/2023 2:14 PM 12/20/2023 2:59 PM 12/20/2023 3:44 PM 01/17/2024 11:52 AM 01/17/2024 12:08 PM 01/17/2024 12:48 PM 01/17/2024 1:04 PM ONCBCN ONCOLOGY (AMB) Day, Cycle Day 1, Cycle 3 Day 1, Cycle 4 CARBOplatin (Paraplatin) IV 406 mg 314 mg cyanocobalamin (Vitamin B-12) 1,000 mcg/mL SubQ 1,000 mcg pembrolizumab 25 mg/mL (Keytruda) IV 200 mg 200 mg PEMEtrexed disodium (Alimta) IV 500 mg/m2/dose = 800 mg 500 mg/m2/dose = 800 mg Patient Active Problem List Diagnosis Date Noted Primary malignant neoplasm of right upper lobe of lung 10/17/2023 High risk medication use 10/17/2023 Mass of upper lobe of right lung 02/10/2022 Chronic back pain 04/13/2016 PTSD (post-traumatic stress disorder) 07/06/2011 Fibromyalgia 07/06/2011 I reviewed the problem list, allergies, medications, past medical history, social history and family history within the EPIC encounter. Pertinent details are noted above. Pertinent positives and negative from the Review of Systems are as summarized above in the HPI. Physical Exam: Wt Readings from Last 3 Encounters: 04/01/24 54.6 kg (120 lb 6.4 oz) 03/04/24 55.5 kg (122 lb 6.4 oz) 01/17/24 54.8 kg (120 lb 12.8 oz) Temp Readings from Last 3 Encounters: 04/01/24 36.7 ??C (98 ??F) (Temporal) 03/04/24 36.3 ??C (97.3 ??F) (Temporal) 01/17/24 36.6 ??C (97.8 ??F) (Temporal) BP Readings from Last 3 Encounters: 04/01/24 137/72 03/04/24 (!) 129/96 01/17/24 124/74 Pulse Readings from Last 3 Encounters: 04/01/24 (!) 116 03/04/24 (!) 106 01/17/24 (!) 101 Body surface area is 1.59 meters squared. Wt Readings from Last 3 Encounters: 04/01/24 54.6 kg (120 lb 6.4 oz) 03/04/24 55.5 kg (122 lb 6.4 oz) 01/17/24 54.8 kg (120 lb 12.8 oz) KPS Score ECOG Grade Definition 90-100 0 Fully active, able to carry on all pre-disease performance without restriction 70-80 1 Restricted in physically strenuous activity but ambulatory and able to carry out work of a light or sedentary nature, e.g., light house work, office work X 50-60 2 Ambulatory and capable of all selfcare but unable to carry out any work activities; up and about more than 50% of waking hours 30-40 3 Capable of only limited selfcare; confined to bed or chair more than 50% of waking hours 10-20 4 Completely disabled; cannot carry on any selfcare; totally confined to bed or chair Physical Exam Constitutional: General: Not in acute distress. Appearance: Normal appearance. Very thin. HENT: Head: Atraumatic. Eyes: General: No conjunctival icterus. Right eye: No discharge. Left eye: No discharge. Conjunctiva/sclera: Conjunctivae normal. Pulmonary: Effort: Pulmonary effort is normal. Neurological: General: No focal deficit present. Mental Status: Alert and oriented to person, place, and time. Mental status is at baseline. Psychiatric: Mood and Affect: Mood normal. Behavior: Behavior normal. Thought Content: Thought content normal. Judgment: Judgment normal. Review of Laboratory Data: WBC 10.42, Hgb 16.1, HCT 47.5, platelets 231,000, ANC 8990, NA 137, K+ 3.8, chloride 100, CO2 31.2,BUN 25, creatinine 0.7, glucose 117, calcium 9.3, T. bili 0.4, AST 18, ALT 36, alk phos 99, T protein 6.8, albumin 3.6, lipase 63 8.19.24 White blood cell count 9.86 hemoglobin 14.7 platelet count 391,000 absolute neutrophil count 7.81 Calcium 9.6 glucose 127 BUN 21 creatinine 0.7 albumin 3.7 total bilirubin 0.29 alk phos 109 sodium 140 potassium 4.4 chloride 103 CO2 28.4 AST 12 ALT 17 magnesium slightly low at 1.7 TSH slightly lowat 0.12 with a normal free T4 of 1.27 01/17/24 WBC 7.07, H/H 13.6/40.9, plt 367,000, ANC 3640, Na 143, K 4.2, Cl 105, CO2 31.3, BUN 15, Creat 1.0,glucose 97, Ca 8.7, Mag 1.7, t bili 0.26, AST 19, ALT 25, alk phos 85, t protein 6.8, albumin 3.3, TSH 0.53, Free T4 0.98 6.5.24 WBC 6.65, Hgb 13.4, HCT 40.0, platelets 267,000, ANC 3770, sodium 140, K+ 3.8, chloride 102, CO2 31.3, BUN 12, creatinine 0.6, glucose 130, calcium 8.5, mag 1.7, T. bili 0.3, AST 21, ALT 34, alk phos98, total protein 6.5, albumin 3.2, TSH 0.41, free T4 0.93 5.13.24 Sodium 141 potassium 3.8 chloride 100 BUN 17 creatinine 0.7 glucose 146 calcium 9.0 magnesium slightly low at 1.7 total bilirubin 0.5 AST 11 ALT 31 alk phos 82 total protein 7.1 albumin 3.5 TSH slightly low at 0.13 Free T4 within normal limits at 1.18 White blood cell count 11.03 hemoglobin 15.0 platelet count 239,000 absolute neutrophil count 9.19 11/01/23 WBC 10.97, H/H 15.1/46.1, plt 566, ANC 6880, Na 142, K 4.0, Cl 102, CO2 31.2, BUN 14, Creat 0.9, glucose 121, Ca 8.9, Mg 1.7, t bili 0.4, AST 27, ALT 25, alk phos 125, t protein 7.1, albumin 3.3, TSH0.55, Free T4 1.36 Review of Imaging Data: As above Review of Pathology Data: documented in this encounter Plan of Treatment Upcoming Encounters Date Type Department Care Team (Late st Contact Info) Description 06/21/2024 3:00 PM EST Appointment [place] [phone] Dana Nevarez APRN [address] [place] [address] DR HEMATOLOGY AND ONCOLOGY [place], [place] [id number] 06/24/2024 2:30 PM EST Office Visit Hematology/Oncology at [address] [phone] Osvaldo Hatch MD [facility] DR HEMATOLOGY [place] [address] Dana Nevarez APRN [address] [place] [address] DR [place] [address] documented as of this encounter Visit Diagnoses Diagnosis Primary malignant neoplasm of right upper lobe of lung Malignant neoplasm of upper lobe, bronchus or lung Upper abdominal pain Abdominal pain, other specified site documented in this encounter Care Teams Node Js Developer Relationship Specialty Start Date End Date Unknown None PCP - General 06/27/23 documented as of this encounter
--- OUTSIDE RECORDS SUMMARY | 2024-05-28 11:41 | XMS_ITS | Encounter Summary ---
[place] [address] Care Team Providers Care Administrative Services Manager Name Role Phone Unknown Primary Care Provider Unavailabl e Reason for Referral * Diagnostic Test (Routine) - Closed Specialty Diagnoses / Procedures Referred By Contac t Referred To Contact Radiology Diagnoses Primary malignant neoplasm of right upper lobe of lung Procedures NM Paulino PET CT Skull Base to Mid-thigh Dana Nevarez APRN [address] [place] [address] DR HEMATOLOGY [place] [address] [place] [address] Referral ID Status Reason Start Date Expiration Date V isits Requested Visits Authorized [id number] Closed Specialty Service Requested 01/17/2024 07/19/2025 1 1 Reason for Visit * Diagnostic Test (Routine) - Closed Specialty Diagnoses / Procedures Referred By Contac t Referred To Contact Radiology Diagnoses Primary malignant neoplasm of right upper lobe of lung Procedures NM Paulino PET CT Skull Base to Mid-thigh Dana Nevarez APRN [address] [place] [address] DR HEMATOLOGY [place] [address] [place] [address] Referral ID Status Reason Start Date Expiration Date V isits Requested Visits Authorized [id number] Closed Specialty Service Requested 01/17/2024 07/19/2025 1 1 Encounter Details Date Type Department Care Team (Late st Contact Info) Description 02/23/2024 10:00 AM EDT - 02/23/2024 11:59 PM EDT Hospital Encounter [place] [phone] Dana Nevarez APRN [address] [place] [address] DR HEMATOLOGY [place] [address] Primary malignant neoplasm of right upper lobe of lung Discharge Disposition: Home Social History Tobacco Use Types Packs/Day Years Used Date Smoking Tobacco: Every Day Cigarettes Smokeless Tobacco: Never [facility] Utilities Answer Date Recorded In the [...] place to sleep or slept in a senior care (including now)? Yes 10/16/2023 Sex and Gender Information Value Date Recorded Sex Assigned at Not on file Gender Identity Not on file Sexual Orientation Not on file documented as of this encounter Medications at Time of Discharge Medication Sig Dispensed Refills Start Date End Date ondansetron ODT (Zofran-ODT) 4 mg disintegrating tabletIndications:Chemoth erapy induced nausea and vomiting Take 1-2 tablets by mouth every 8 hours as needed for Nausea. 20 tablet 3 12/20/2023 prochlorperazine (Compazine) 10 mg tabletIndications:Chemoth erapy induced nausea and vomiting Take 1 tablet by mouth every 6 hours as needed for Nausea. 30 tablet 3 12/20/2023 ipratropium-albuteroL (Combivent Respimat) 20-100 mcg/actuation inhaler Inhale 2 puffs into the lungs every 4 hours as needed for Wheezing. 1 each 12 12/12/2023 LORazepam (Ativan) 0.5 mg tablet TAKE ONE-HALF TO ONE TABLET BY MOUTH ONCE 15 MIN PRIOR TO INFUSION NEEDED 11/15/2023 Advair Diskus 250-50 mcg/dose inhaler (DPI) Inhale 1 puff into the lungs 2 times daily. 11/15/2023 traMADoL (Ultram) 50 mg tablet Take 1 tablet by mouth every 8 hours as needed for Pain. 40 tablet 11/06/2023 ePHEDrine sulfate (Bronkaid Max) 25 mg Tablet Take 25 mg by mouth 4 times daily. folic acid (Vitamin B9) 1 mg tabletIndications:Primary malignant neoplasm of right upper lobe of lung Take 1 tablet by mouth daily. 90 tablet 3 11/01/2023 acetaminophen (Tylenol) 500 mg tablet Take 1,000 mg by mouth every 6 hours as needed for Pain. ascorbic acid, Vitamin C, (Vitamin C) 500 mg tablet Take 500 mg by mouth Daily @ 0600. cholecalciferol (Vitamin D3) 400 unit tablet Take 400 Units by mouth Daily @ 0600. Ventolin HFA 90 mcg/actuation HFA Aerosol Inhaler 02/08/2022 naproxen sodium (ANAPROX) 220 mg Tablet Take 440 mg by mouth 2 times daily (with meals). guaiFENesin ER (Mucinex) 600 mg ER 12 hr tabletIndications:COPD with exacerbation Take 1 tablet by mouth 2 times daily. 60 tablet 3 02/02/2024 03/04/2024 amoxicillin-clavulanate (Augmentin) 875-125 mg tablet Take 1 tablet by mouth Every 12 hours. 11/24/2023 03/11/2024 documented as of this encounter Plan of Treatment Upcoming Encounters Date Type Department Care Team (Late st Contact Info) Description 06/21/2024 3:00 PM EST Appointment [place] [address] HEMATOLOGY AND ONCOLOGY [place], [place] [phone] 06/24/2024 2:30 PM EST Office Visit Hematology/Oncology at [address] [phone] Osvaldo Hatch MD [facility] DR [place] [address] [address] HEMATOLOGY AND ONCOLOGY [place], [place] [phone] documented as of this encounter Procedures Procedure Name Priority Date/Time Associated Diagnosis Comments NM PAULINO PET CT SKULL BASE TO MID-THIGH Routine 02/23/2024 10:30 AM EDT Primary malignant neoplasm of right upper lobe of lung documented in this encounter Results * NM Paulino PET CT Skull Base to Mid-thigh (02/23/2024 10:30 AM EDT) WORKSTATION ID [id number] RAD Anatomical Region Laterality Modality Positron Emissio n Tomography (PET) Impressions 02/26/2024 11:13 AM EDT 1. ??Right upper lobe pulmonary malignancy has decreased in size and intensity. 2. ??Resolution of the right middle lobe metastasis. 3. ??Partial improvement in the right femoral neck metastasis. 4. ??There are new ill-defined and groundglass opacities in the lungs bilaterally that are most suggestive of pneumonitis, possibly related to therapy. Please follow-up to ensure resolution. 5. ??No definite new sites of disease. Thank you for letting us participate in the care of this patient. ??If you are a health care provider and have any questions regarding this report, please contact the number below. ??For patients who have questions please contact the health childcare administrator that requested your imaging first. ? 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 The noncontrast CT was used for anatomic localization and photon attenuation correction of the PET scan. Blood glucose level: 136 (mg/dL) FDG dose: 11 mCi COMPARISON: FDG PET/CT October 27, [address] 2023 FINDINGS: HEAD/NECK: Normal activity in all soft tissue regions of the neck and visualized lower head. CHEST: There is a hypermetabolic mass located in the right upper lobe. This mass abuts the major fissure crosses into the right lower lobe. There has been a marked decrease in size since the prior examination and today measures 4.6 cm (previously measuring approximately 8.4 cm in a similar dimension). The FDG intensity of this mass has diminished. There has been accompanying volume loss in the right upper lobe with hyperinflation of the right middle lobe. No abnormal activity is identified in the right hilum or within the mediastinum. The previously described hypermetabolic right middle lobe nodule has resolved. The previously described thickened septal lines in the right lung apex have resolved. New FDG avid ill-defined and groundglass opacities have developed in the base of the right lower lobe (image 119), the base of the left lower lobe (image 123) and the superior segment of the lingula (image 195). ABDOMEN/PELVIS: Normal activity in all soft tissue regions. SKELETON/EXTREMITIES: Again seen is the focus of increased activity in the right femoral neck (image 234). This corresponds to a faint area of sclerosis. Activity has diminished in intensity since the prior examination. Diffusely increased activity in the skeleton is consistent with reactive marrow. 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 The noncontrast CTwas used for anatomic localization and photon attenuation correction of thePET scan. Blood glucose level: 136 (mg/dL) FDG dose: 11 mCi COMPARISON: FDG PET/CT October 27, [address] 2023 FINDINGS: HEAD/NECK: Normal activity in all soft tissue regions of the neck and visualizedlower head. CHEST: There is a hypermetabolic mass located in the right upper lobe. This massabuts the major fissure crosses into the right lower lobe. There has been amarked decrease in size since the prior examination and today measures 4.6 cm (previously measuring approximately 8.4 cm in a similar dimension). TheFDG intensity of this mass has diminished. There has been accompanying volumeloss in the right upper lobe with hyperinflation of the right middle lobe. No abnormal activity is identified in the right hilum or within themediastinum. The previously described hypermetabolic right middle lobe nodule hasresolved. The previously described thickened septal lines in the right lung apexhave resolved. New FDG avid ill-defined and groundglass opacities have developed in thebase of the right lower lobe (image 119), the base of the left lower lobe ([id number]) and the superior segment of the lingula (image 195). ABDOMEN/PELVIS: Normal activity in all soft tissue regions. SKELETON/EXTREMITIES: Again seen is the focus of increased activity in the right femoral neck(image 234). This corresponds to a faint area of sclerosis. Activity hasdiminished in intensity since the prior examination. Diffusely increased activity in the skeleton is consistent with reactivemarrow. IMPRESSION 1. Right upper lobe pulmonary malignancy has decreased in size andintensity. 2. Resolution of the right middle lobe metastasis. 3. Partial improvement in the right femoral neck metastasis. 4. There are new ill-defined and groundglass opacities in the lungsbilaterally that are most suggestive of pneumonitis, possibly related to therapy.Please follow-up to ensure resolution. 5. No definite new sites of disease. Thank you for letting us participate in the care of this patient. If youare a health care provider and have any questions regarding this report,please contact the number below. For patients who have questions please contactthe health childcare administrator that requested your imaging first. Dana Nevarez SENIOR HUMAN RESOURCES REPRESENTATIVE IMG PET ORDERABL ES documented in this encounter Visit Diagnoses Diagnosis Primary malignant neoplasm of right upper lobe of lung Malignant neoplasm of upper lobe, bronchus or lung documented in this encounter Administered Medications Inactive Administered Medications - up to 3 most recent administrations Medication Order MAR Action Action Date Dose Rate Site fludeoxyglucose (F-18) FDG injection 0-20 mCi 0-20 mCi, Intravenous, ONCE PRN, 1 dose, Starting on Mon02/23/24 at 1303, Until Mon02/23/24 at 0852, Per Protocol, Radiology Contrast, Routine Given 02/23/2024 8:52 AM EDT 11 mCi documented in this encounter Care Teams Administrative Services Manager Relationship Specialty Start Date End Date Unknown None PCP - General 06/27/23 documented as of this encounter
--- OUTSIDE RECORDS SUMMARY | 2024-05-28 11:41 | XMS_ITS | Encounter Summary ---
Author Organization [facility] [place] [address] Care Team Providers Care Metal Tube Cutter Name Role Phone Unknown Primary Care Provider Unavailabl e Encounter Details Date Type Department Care Team (Late st Contact Info) Description 02/02/2024 Orders Only Hematology/Oncology at [address] [phone] Dana Nevarez AMBULANCE DISPATCHER [address] [place] [address] DR HEMATOLOGY AND ONCOLOGY [place], [place] [phone] COPD with exacerbation Social History Tobacco Use Types Packs/Day Years Used Date Smoking Tobacco: Every Day Cigarettes Smokeless Tobacco: Never [facility] Utilities Answer Date Recorded In [...] place to sleep or slept in a chcf (including now)? Yes 10/16/2023 Sex and Gender Information Value Date Recorded Sex Assigned at Not on file Gender Identity Not on file Sexual Orientation Not on file documented as of this encounter Plan of Treatment Upcoming Encounters Date Type Department Care Team (Late st Contact Info) Description 06/21/2024 3:00 PM EST Appointment [place] [address] Dana Nevarez [address] HEMATOLOGY AND ONCOLOGY [place], [place] [address] 06/24/2024 2:30 PM EST Office Visit Hematology/Oncology at [address] [phone] Osvaldo Hatch MD [facility] DR HEMATOLOGY [place] [address] [address] [place] [address] documented as of this encounter Visit Diagnoses Diagnosis COPD with exacerbation Obstructive chronic bronchitis with exacerbation documented in this encounter Care Teams Metal Tube Cutter Relationship Specialty Start Date End Date Unknown None PCP - General 06/27/23 documented as of this encounter
--- OUTSIDE RECORDS SUMMARY | 2024-05-28 11:41 | XMS_ITS | Encounter Summary ---
Author Organization [facility] Address [facility] [place] [address] Care Team Providers Care Telesales Manager Name Role Phone Unknown Primary Care Provider Unavailabl e Encounter Details Date Type Department Care Team (Latest Contact Info) Description 05/02/2024 Travel Social History Tobacco Use Types Packs/Day Years Used Date Smoking Tobacco: Every Day Cigarettes Smokeless Tobacco: Never [facility] Utilities Answer Date Recorded In the past 12 months has th e [employer], gas, oil, or water [employer] threatened to shut off services in your [...] place to sleep or slept in a detention (including now)? Yes 10/16/2023 Sex and Gender Information Value Date Recorded Sex Assigned at Not on file Gender Identity Not on file Sexual Orientation Not on file documented as of this encounter Plan of Treatment Upcoming Encounters Date Type Department Care Team (Late st Contact Info) Description 06/21/2024 3:00 PM EST Appointment [place] [address] [address] HEMATOLOGY AND ONCOLOGY [place], [place] [address] 06/24/2024 2:30 PM EST Office Visit Hematology/Oncology at [address] [phone] Osvaldo Hatch MD [facility] DR HEMATOLOGY [place] [address] [address] [place] [address] documented as of this encounter Visit Diagnoses Not on filedocumented in this encounter Care Teams Telesales Manager Relationship Specialty Start Date End Date Unknown None PCP - General 06/27/23 documented as of this encounter
--- OUTSIDE RECORDS SUMMARY | 2024-05-28 11:41 | XMS_ITS | Encounter Summary ---
Author Organization [facility] Address [facility] [place] [address] Care Team Providers Care Carpenter Streetcar Name Role Phone Unknown Primary Care Provider Unavailabl e Encounter Details Date Type Department Care Team (Latest Contact Info) Description 03/07/2024 Travel Social History Tobacco Use Types Packs/Day Years Used Date Smoking Tobacco: Every Day Cigarettes Smokeless Tobacco: Never [facility] Utilities Answer Date Recorded In the past 12 months has th e [employer], gas, oil, or water [employer] threatened to shut off services in [...] Yes 10/16/2023 Housing Stability Vital Sign Answer Mtat e Recorded In the last 12 months, [...] place to sleep or slept in a longterm (including now)? Yes 10/16/2023 Sex and Gender Information Value Date Recorded Sex Assigned at Not on file Gender Identity Not on file Sexual Orientation Not on file documented as of this encounter Plan of Treatment Upcoming Encounters Date Type Department Care Team (Late st Contact Info) Description 06/21/2024 3:00 PM EST Appointment [place] [address] HEMATOLOGY AND ONCOLOGY [place], [place] [address] 06/24/2024 2:30 PM EST Office Visit Hematology/Oncology at [address] [phone] Osvaldo Hatch MD [facility] DR [place] [address] [address] HEMATOLOGY [place] [address] documented as of this encounter Visit Diagnoses Not on filedocumented in this encounter Care Teams Carpenter Streetcar Relationship Specialty Start Date End Date Unknown None PCP - General 06/27/23 documented as of this encounter
--- OUTSIDE RECORDS SUMMARY | 2024-05-28 11:41 | XMS_ITS | Encounter Summary ---
Author Organization [facility] [place] [address] Care Team Providers Care Saw Repairer Name Role Phone Unknown Primary Care Provider Unavailabl e Reason for Visit * Reason Onset Date Comments Cough 04/02/2024 Encounter Details Date Type Department Care Team (Late st Contact Info) Description 04/02/2024 Telephone Hematology/Oncology at [address] [phone] Susan Rodgers, RN Cough Social History Tobacco Use Types Packs/Day Years Used Date Smoking Tobacco: Every Day Cigarettes Smokeless Tobacco: Never [facility] Utilities Answer Date Recorded In the [...] place to sleep or slept in a halfway (including now)? Yes 10/16/2023 Sex and Gender Information Value Date Recorded Sex Assigned at Not on file Gender Identity Not on file Sexual Orientation Not on file documented as of this encounter Miscellaneous Notes * Telephone Encounter - Shavon Arce RN - 04/04/2024 7:51 AM EDT 04/02 Called to check in on Nakita and confirm she is taking 40mg/day of the prednisone and that she started taking the omeprazole. She still is c/o pain in her abdomen on the right side about 2 inches down from her ribs. She is taking the mirilax and that is helping make her stool softer, however,she is still distended. She confirms she started the omeprazole and has been taking 40mg/day of prednisone since Monday. Discussed with Francisco Nevarez APRN. Scan and US from ED visit 04/01 do not show anything that may be causing the pain and the lack of urge to have a BM. Suggests that Nakita continue to use the omeprazole and continue the steroid taper as suggested on weekly phone call check in. She is agreeable to this plan. She also notes that she has noticed more leg weakness and dizziness at times. We discussed that the prednisone can be causing the leg weakness but had to say for sure. * Telephone Encounter - Susan Rodgers RN - 04/02/2024 2:40 PM EDT Nakita called to report she is coughing up green sputum again starting this morning. She states she took 50mg of the prednisone yesterday. She has taken 20mg this morning and plans to take another 20mgs this afternoon. She can't tolerate taking the full dose all at once. She denies fever. She continues to have abdominal discomfort and bloating, she is using miralax once daily for constipation, she said she has been moving her bowels about once per day, but baseline she would have 2 BMper day. documented in this encounter Plan of Treatment Upcoming Encounters Date Type Department Care Team (Late st Contact Info) Description 06/21/2024 3:00 PM EST Appointment [place] [address] HEMATOLOGY AND ONCOLOGY [place], [place] [address] 06/24/2024 2:30 PM EST Office Visit Hematology/Oncology at [address] [phone] Osvaldo Hatch MD [facility] DR HEMATOLOGY [place] [address] [address] HEMATOLOGY AND ONCOLOGY [place], [place] [address] documented as of this encounter Visit Diagnoses Not on filedocumented in this encounter Care Teams Saw Repairer Relationship Specialty Start Date End Date Unknown None PCP - General 06/27/23 documented as of this encounter
--- OUTSIDE RECORDS SUMMARY | 2024-05-28 11:41 | XMS_ITS | Encounter Summary ---
Author Organization [facility] Address [facility] [place] [address] Care Team Providers Care Breakfast Hostess Name Role Phone Unknown Primary Care Provider Unavailabl e Encounter Details Date Type Department Care Team (Late st Contact Info) Description 03/19/2024 Telephone Hematology Oncology at [address] [phone] Shavon Arce RN Social History Tobacco Use Types Packs/Day Years Used Date Smoking Tobacco: Every Day Cigarettes Smokeless Tobacco: Never [facility] Utilities Answer Date Recorded In [...] place to sleep or slept in a fdc (including now)? Yes 10/16/2023 Sex and Gender Information Value Date Recorded Sex Assigned at Not on file Gender Identity Not on file Sexual Orientation Not on file documented as of this encounter Miscellaneous Notes * Telephone Encounter - Shavon Arce RN - 03/21/2024 11:44 AM EDT Called Nakita, no ED visit. She reports she has been busy trying to get a few things done so has not gone. She reports her bowels are a little better with the prune juice. She would like to wait and if things do not continue to get better she will go to ED tomorrow (Monday) morning. Encouraged to call back if anything worsens today. Triage will check in tomorrow. * Telephone Encounter - Simin Jung RN - 03/20/2024 12:33 PM EDT Call to Nakita to follow up with pred taper and bowel issue. She reports she is having 8/10 (at times) RUQ pain, bloating, can't eat more than a few bites, hemorrhoid agitation, thin poops. She is questioning diverticulitis. She is taking prune juice with little effect. States her poops are jelly like. She is also questioning bacterial intestine infection. I suggest Nakita report to [facility] ED for evaluation for ?diverticulitis, bacteria infection, SBO. She reports she probably can't go today but will go tomorrow morning. She knows that if things get worse she should go sooner. All this has been reviewed with Francisco Nevarez APRN. RN follow up tomorrow. She states her breathing is a little bit better. Discission will be made on pred taper after ED evaluation. * Telephone Encounter - Shavon Arce RN - 03/19/2024 10:27 AM EDT Call to check on SOB/constipation with 60mg of pred for 2 weeks documented in this encounter Plan of Treatment Upcoming Encounters Date Type Department Care Team (Late st Contact Info) Description 06/21/2024 3:00 PM EST Appointment [place] [address] HEMATOLOGY AND ONCOLOGY [place], [place] [address] 06/24/2024 2:30 PM EST Office Visit Hematology/Oncology at [address] [phone] Osvaldo Hatch MD [facility] DR [place] [address] [address] HEMATOLOGY AND ONCOLOGY [place], [place] [address] documented as of this encounter Visit Diagnoses Not on filedocumented in this encounter Care Teams Breakfast Hostess Relationship Specialty Start Date End Date Unknown None PCP - General 06/27/23 documented as of this encounter
--- OUTSIDE RECORDS SUMMARY | 2024-05-28 11:41 | XMS_ITS | Encounter Summary ---
Author Organization [facility] [place] [address] Care Team Providers Care Academic Affairs Dean Name Role Phone Unknown Primary Care Provider Unavailabl e Reason for Visit * Reason Onset Date Comments Other 04/15/2024 Financial resour judson/bills Encounter Details Date Type Department Care Team (Late st Contact Info) Description 04/15/2024 Telephone Hematology/Oncology at [address] [phone] Michelle Marsh, ICE CARVER OFFICE OF CARE MANAGEMENT Other (Financial resources/bills) Social History Tobacco Use Types Packs/Day Years Used Date Smoking Tobacco: Every Day Cigarettes Smokeless Tobacco: Never [facility] Utilities Answer Date Recorded In the [...] place to sleep or slept in a assisted (including now)? Yes 10/16/2023 Sex and Gender Information Value Date Recorded Sex Assigned at Not on file Gender Identity Not on file Sexual Orientation Not on file documented as of this encounter Miscellaneous Notes * Telephone Encounter - Michelle Marsh MSW - 04/15/2024 11:58 AM EDT TC from Nakita. She indicated she was sick so she could not bring [employer] [facility] to edit her JAF application to now request financial assistance with her electric, phone, internet bill. Nakita indicated she will bring the bills in today. Care Coordination Financial resources documented in this encounter Plan of Treatment Upcoming Encounters Date Type Department Care Team (Late st Contact Info) Description 06/21/2024 3:00 PM EST Appointment [place] [address] Dana Nevarez APRN [address] [place] [address] DR HEMATOLOGY AND ONCOLOGY [place], [place] [id number] 06/24/2024 2:30 PM EST Office Visit Hematology/Oncology at [address] [phone] Osvaldo Hatch MD [facility] DR [place]EMATOLOGY [place] [address] Dana Nevarez APRN [address] [place] [address] DR HEMATOLOGY [place] [address] documented as of this encounter Visit Diagnoses Not on filedocumented in this encounter Care Teams Academic Affairs Dean Relationship Specialty Start Date End Date Unknown None PCP - General 06/27/23 documented as of this encounter
--- OUTSIDE RECORDS SUMMARY | 2024-05-28 11:41 | XMS_ITS | Encounter Summary ---
Author Organization [facility] Address [facility] [place] [address] Care Team Providers Care Lockstitch Binder Name Role Phone Unknown Primary Care Provider Unavailabl e Encounter Details Date Type Department Care Team (Latest Contact Info) Description 03/25/2024 Travel Social History Tobacco Use Types Packs/Day Years Used Date Smoking Tobacco: Every Day Cigarettes Smokeless Tobacco: Never [facility] Utilities Answer Date Recorded In the past 12 months has th e [employer], gas, oil, or water [employer] threatened to shut off services in your [...] place to sleep or slept in a alf (including now)? Yes 10/16/2023 Sex and Gender Information Value Date Recorded Sex Assigned at Not on file Gender Identity Not on file Sexual Orientation Not on file documented as of this encounter Plan of Treatment Upcoming Encounters Date Type Department Care Team (Late st Contact Info) Description 06/21/2024 3:00 PM EST Appointment [place] [address] HEMATOLOGY AND ONCOLOGY [place], [place] [address] 06/24/2024 2:30 PM EST Office Visit Hematology/Oncology at [address] [phone] Osvaldo Hatch MD [facility] DR [place]AT[place]Y [place] [address] [address] HEMATOLOGY [place] [address] documented as of this encounter Visit Diagnoses Not on filedocumented in this encounter Care Teams Lockstitch Binder Relationship Specialty Start Date End Date Unknown None PCP - General 06/27/23 documented as of this encounter
--- OUTSIDE RECORDS SUMMARY | 2024-05-28 11:41 | XMS_ITS | Encounter Summary ---
Author Organization [facility] [place] [address] Care Team Providers Care Communications Specialist Name Role Phone Unknown Primary Care Provider Unavailabl e Reason for Referral * Consultation (Urgent) - Canceled Specialty Diagnoses / Procedures Referred By Za laird Referred To Contact Gastroenterology Diagnoses Primary malignant neoplasm of right upper lobe of lung Upper abdominal pain Dana Nevarez APRN [address] [place] [address] DR [place] [address] [address] Referral ID Status Reason Start Date Expiration Date V isits Requested Visits Authorized [id number] Canceled Test Only 04/17/2024 10/14/2024 1 1 * Consultation (Urgent) - Canceled Specialty Diagnoses / Procedures Referred By Za laird Referred To Contact Gastroenterology Diagnoses Primary malignant neoplasm of right upper lobe of lung Upper abdominal pain Dana Nevarez APRN [address] [place] [address] DR [place] [address] [address] Referral ID Status Reason Start Date Expiration Date V isits Requested Visits Authorized [id number] Canceled Test Only 04/17/2024 10/14/2024 1 1 Encounter Details Date Type Department Care Team (Late st Contact Info) Description 04/17/2024 Telephone Hematology/Oncology at [address] [place] [phone] Dana Nevarez APRN [address] [place] [address] DR [place]OLOGY [place] [address] Social History Tobacco Use Types Packs/Day Years [...] place to sleep or slept in a jail (including now)? Yes 10/16/2023 Sex and Gender Information Value Date Recorded Sex Assigned at Not on file Gender Identity Not on file Sexual Orientation Not on file documented as of this encounter Miscellaneous Notes * Telephone Encounter - Dana Nevarez APRN - 04/17/2024 4:18 PM EDT Nakita called because she forgot about her appointment today. Her abd pain continues to be significant, noting bloating immediately after eating anything. Omeprazole has not helped. She has tried gas-x and simethicone, in addition to yogurt, karely, miralax, and other bowel care. We had discussed a GI referral at this point, as her CT scan, PET scan, and US have been negative for an abd concern. 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 She adamantly does not want to see a GI doctor at this time, and is requesting to be scoped, which is a reasonable option. We are going to call around to local hospitals to see who can do it soonest,she is not willing to drive to [facility] She tells me This pain is so bad I think I might , and if I , one of you is going to pay I told her that if she feels like she's dying or her pain is too significant to manage at home, sheneeds to present to the ER. She is not willing to do this, responding they aren't going to do anything for me. Again reinforced that this is our advice. We will call local hospitals to see who can do an egd/colo soonest, and send orders there. In the meantime she is willing to come in next week for labs and an exam. documented in this encounter Plan of Treatment Upcoming Encounters Date Type Department Care Team (Late st Contact Info) Description 06/21/2024 3:00 PM EST Appointment [place] [address] Dana Nevarez APRN [address] [place] [address] H[place] [address] 06/24/2024 2:30 PM EST Office Visit Hematology/Oncology at [address] [phone] [facility] [place] [address] Dana Nevarez APRN [address] [place] [address] DR HEMATOLOGY [place] [address] Scheduled Referrals Name Type Priority Associated Diagnoses Order Schedule REFERRAL TO COLONOSCOPY PROCEDURE Outpatient Referral Routine Primary malignant neoplasm of right upper lobe of lung Upper abdominal pain Ordered: 04/17/2024 REFERRAL TO ENDOSCOPY PROCEDURE Outpatient Referral Routine Primary malignant neoplasm of right upper lobe of lung Upper abdominal pain Ordered: 04/17/2024 documented as of this encounter Visit Diagnoses Diagnosis Primary malignant neoplasm of right upper lobe of lung Malignant neoplasm of upper lobe, bronchus or lung Upper abdominal pain Abdominal pain, other specified site documented in this encounter Care Teams Communications Specialist Relationship Specialty Start Date End Date Unknown None PCP - General 06/27/23 documented as of this encounter
--- OUTSIDE RECORDS SUMMARY | 2024-05-28 11:41 | XMS_ITS | Encounter Summary ---
Author Organization [facility] [place] [address] Care Team Providers Care Sheet Metal Roofer Name Role Phone Unknown Primary Care Provider Unavailabl e Encounter Details Date Type Department Care Team (Late st Contact Info) Description 04/16/2024 Orders Only Hematology/Oncology at [address] [phone] Dana Nevarez NOC TECHNICIAN [address] [place] [address] DR HEMATOLOGY AND ONCOLOGY [place], [place] [id number] Primary malignant neoplasm of right upper lobe of lung; Pneumonitis Social History Tobacco Use Types Packs/Day Years Used Date Smoking Tobacco: Every Day Cigarettes Smokeless Tobacco: Never [facility] Utilities Answer Date Recorded In the past [...] to sleep or slept in a senior living (including now)? Yes 10/16/2023 Sex and Gender Information Value Date Recorded Sex Assigned at Not on file Gender Identity Not on file Sexual Orientation Not on file documented as of this encounter Plan of Treatment Upcoming Encounters Date Type Department Care Team (Late st Contact Info) Description 06/21/2024 3:00 PM EST Appointment [place] [address] HEMATOLOGY [place] [address] 06/24/2024 2:30 PM EST Office Visit Hematology/Oncology at [address] [phone] Osvaldo Hatch MD [facility] DR [place] [address] [address] HEMATOLOGY [place] [address] documented as of this encounter Visit Diagnoses Diagnosis Primary malignant neoplasm of right upper lobe of lung Malignant neoplasm of upper lobe, bronchus or lung Pneumonitis Pneumonia, organism unspecified documented in this encounter Care Teams Sheet Metal Roofer Relationship Specialty Start Date End Date Unknown None PCP - General 06/27/23 documented as of this encounter
--- OUTSIDE RECORDS SUMMARY | 2024-05-28 11:41 | XMS_ITS | Encounter Summary ---
Author Organization [facility] Address [facility] [place] [address] Care Team Providers Care Casting Plug Assembler Name Role Phone Unknown Primary Care Provider Unavailabl e Encounter Details Date Type Department Care Team (Latest Contact Info) Description 04/15/2024 Travel Social History Tobacco Use Types Packs/Day Years Used Date Smoking Tobacco: Every Day Cigarettes Smokeless Tobacco: Never [facility] Utilities Answer Date Recorded In the past 12 months has th e [employer], gas, oil, or water [employer] threatened to shut off services in your [...] 3:00 PM EST Appointment [place] [address] HEMATOLOGY AND ONCOLOGY [place], [place] [address] 06/24/2024 2:30 PM EST Office Visit Hematology/Oncology at [address] [phone] Osvaldo Hatch MD [facility] DR [place] [address] [address] [place] [address] documented as of this encounter Visit Diagnoses Not on filedocumented in this encounter Care Teams Casting Plug Assembler Relationship Specialty Start Date End Date Unknown None PCP - General 06/27/23 documented as of this encounter
--- OUTSIDE RECORDS SUMMARY | 2024-05-28 11:41 | XMS_ITS | Encounter Summary ---
Author Organization [facility] Address [facility] [place] [address] Care Team Providers Care Dairy Feed Mixing Operator Name Role Phone Unknown Primary Care Provider Unavailabl e Encounter Details Date Type Department Care Team (Late st Contact Info) Description 04/08/2024 Telephone Hematology/Oncology at [address] [phone] Simin Jung RN Social History Tobacco Use Types Packs/Day Years Used Date Smoking Tobacco: Every Day Cigarettes Smokeless Tobacco: Never [facility] Utilities Answer Date Recorded In [...] place to sleep or slept in a correction (including now)? Yes 10/16/2023 Sex and Gender Information Value Date Recorded Sex Assigned at Not on file Gender Identity Not on file Sexual Orientation Not on file documented as of this encounter Miscellaneous Notes * Telephone Encounter - Simin Jung RN - 04/08/2024 12:39 PM EDT Voicemail full, could not leave a message. * Telephone Encounter - Simin Jung RN - 04/08/2024 12:38 PM EDT ----- Message from Simin Caldwell RN sent at 04/01/2024 2:41 PM EDT ----- ----- Message ----- From: Dana Nevarez APRN Sent: 04/01/2024 2:24 PM EDT To: Simin Jung RN; [facility] Hem Onc [place] 1. She needs to taper pred to 40mg starting tomorrow, then 20mg in one week. Simin lets plan to call her each Monday to make sure she is tapering. 2. RTC in 2 weeks with CBC, CMP, Mg, TSH, Free T4 prior. Possible infusion time, unclear at this point. documented in this encounter Plan of Treatment Upcoming Encounters Date Type Department Care Team (Late st Contact Info) Description 06/21/2024 3:00 PM EST Appointment [place] [address] Dana Nevarez APRN [address] [place] [address] DR HEMATOLOGY AND ONCOLOGY [place], [place] [address] 06/24/2024 2:30 PM EST Office Visit Hematology/Oncology at [address] [phone] Osvaldo Hatch MD [facility] DR [place] [address] Dana Nevarez APRN [address] [place] [address] DR HEMATOLOGY AND ONCOLOGY [place], [place] [address] documented as of this encounter Visit Diagnoses Not on filedocumented in this encounter Care Teams Dairy Feed Mixing Operator Relationship Specialty Start Date End Date Unknown None PCP - General 06/27/23 documented as of this encounter
--- OUTSIDE RECORDS SUMMARY | 2024-05-28 11:41 | XMS_ITS | Encounter Summary ---
Author Organization [facility] Address [facility] [place] [address] Care Team Providers Care Field Seismologist Name Role Phone Unknown Primary Care Provider Unavailabl e Reason for Visit * Reason Onset Date Comments Other 02/29/2024 Financial assist ance Encounter Details Date Type Department Care Team (Late st Contact Info) Description 02/29/2024 Telephone Hematology/Oncology at [address] [phone] Michelle Marsh, MAINTENANCE SPECIALIST OFFICE OF CARE MANAGEMENT Other (Financial assistance) Social History Tobacco Use Types Packs/Day Years Used Date Smoking Tobacco: Every Day Cigarettes Smokeless Tobacco: Never [facility] Utilities Answer Date Recorded In the [...] place to sleep or slept in a residential (including now)? Yes 10/16/2023 Sex and Gender Information Value Date Recorded Sex Assigned at Not on file Gender Identity Not on file Sexual Orientation Not on file documented as of this encounter Miscellaneous Notes * Telephone Encounter - Michelle Marsh, MAINTENANCE SPECIALIST - 02/29/2024 10:02 AM EDT TC from [employer] inquiring about any other options for financial assistance especially for her rent.She reports she received a notice of eviction due to owing back rent. I Informed [employer] LEACHW heard yesterday that the JAF is now open again We had planned to apply to themprior to their closing but [employer] did not bring in the information required for completing an application. Informed [employer] she needs to bring in updated information re her income; copy of her public benefits statement, copy of letter re rent she owes. SIMÓN has her rental agreement and signed release of information. Nargis indicated she will bring in this information. Add: 10 am. Met with sony when she brought in the information. She owes $2370 in back rent. She stated [employer] program is going to help her with ~$1200. MAINTENANCE SPECIALIST will ask the JAF for $850 (max). [employer] to let MAINTENANCE SPECIALIST know if where she wants a food card from [employer] or [employer]. [employer] needs to bring in her most recent report of her income. [employer] indicated she is working now. She continues to receive a $250 stipend a month from [employer] She has not received child support and may need to work with the Sate re this. Referred her to ALEXANDER sandhu help with an electric bill. Inquired how her daughter is doing. She indicated she is doing well and [employer] is making plans to enroll her in a school for the fall but unclear on the plan at this time. MAINTENANCE SPECIALIST will complete an application to the [facility] when soyn brings in her income statement. Will continue to follow for support and resources. Brief assessment Food insecurity resources Financial resources Community Resource documented in this encounter Plan of Treatment Upcoming Encounters Date Type Department Care Team (Late st Contact Info) Description 06/21/2024 3:00 PM EST Appointment [place] [address] HEMATOLOGY AND ONCOLOGY [place], [place] [address] 06/24/2024 2:30 PM EST Office Visit Hematology/Oncology at [address] [phone] Osvaldo Hatch MD [facility] DR [place] [address] [address] HEMATOLOGY AND ONCOLOGY [place], [place] [address] documented as of this encounter Visit Diagnoses Not on filedocumented in this encounter Care Teams Field Seismologist Relationship Specialty Start Date End Date Unknown None PCP - General 06/27/23 documented as of this encounter
--- OUTSIDE RECORDS SUMMARY | 2024-05-28 11:41 | XMS_ITS | Encounter Summary ---
Author Organization [facility] [place] [address] Care Team Providers Care Applications Intern Name Role Phone Unknown Primary Care Provider Unavailabl e Encounter Details Date Type Department Care Team (Late st Contact Info) Description 03/29/2024 Telephone Hematology/Oncology at [address] [phone] Simin Jung RN Social History Tobacco Use Types Packs/Day Years Used Date Smoking Tobacco: Every Day Cigarettes Smokeless Tobacco: Never [facility] Utilities Answer Date Recorded In [...] Telephone Encounter - Simin Jung RN - 03/29/2024 4:54 PM EDT Call to Nakita to let her know below. She agreed with plan and we will see her in clinic on Monday. * Telephone Encounter - Simin Jung RN - 03/29/2024 4:54 PM EDT ----- Message from DONY HATCH sent at 03/29/2024 4:50 PM EDT ----- Got it. Well then she can go to 40mg now and we can see where she is next week and send in more pills. I sent a in script for a bunch of 10mg with a taper but she can ignore the taper and just start at 40mgand we'll figure it out. A ----- Message ----- From: Simin Jung RN Sent: 03/29/2024 4:35 PM EDT To: Dony Hatch MD; Dana Nevarez APRN Back on 03/11 she called and didn't feel better, so we kept her on 60 for another week, the next week she was feeling poorly so I told her to go to the ED. She didn't. So I assume she has just been taking 60mg daily this whole time. ----- Message ----- From: Dony Hatch MD Sent: 03/29/2024 4:25 PM EDT To: Simin Jung RN; Dana Nevarez APRN Hi Based on the taper that I oput her on she should've gone to 20mg on 03/25 so it is a little weird that she's out but I sent a new script and taper from 20 to Spring. She should call her PCP for the inhaler. A ----- Message ----- From: Simin Jung RN Sent: 03/29/2024 2:34 PM EDT To: Dony Hatch MD; Dana Nevarez APRN We are seeing her on Monday, I really dont know where we are at with the steroids. Inhaler I think should come from PCP? Let me know, Simin ----- Message ----- From: Brenda Rivera Sent: 03/29/2024 2:31 PM EDT To: [facility] Hem Onc Nurse Carlitos Mace called and said she is feeling alittle better. Stomach is better but the breathing is not. She has had to use her inhaler more then prescribed and does not know when she will be able to refill it but she needs it and it helps her. She is also out of prednisone as of tomorrow and willneed another Rx for that medication. Please call her and let her know what to do. [phone] Thank you Brenda documented in this encounter Plan of Treatment Upcoming Encounters Date Type Department Care Team (Late st Contact Info) Description 06/21/2024 3:00 PM EST Appointment [place] [address] Dana Nevarez APRN [address] [place] [address] DR HEMATOLOGY AND ONCOLOGY [place], [place] [id number] 06/24/2024 2:30 PM EST Office Visit Hematology/Oncology at [address] [phone] Dony Hatch MD [facility] DR [place] [address] Dana Nevarez, FARM MACHINE TENDER [address] [place] [address] DR HEMATOLOGY [place] [address] documented as of this encounter Visit Diagnoses Not on filedocumented in this encounter Care Teams Applications Intern Relationship Specialty Start Date End Date Unknown None PCP - General 06/27/23 documented as of this encounter
--- OUTSIDE RECORDS SUMMARY | 2024-05-28 11:41 | XMS_ITS | Encounter Summary ---
Author Organization [facility] Address [facility] [place] [address] Care Team Providers Care Signal Circuit Designer Name Role Phone Unknown Primary Care Provider Unavailabl e Encounter Details Date Type Department Care Team (Latest Contact Info) Description 04/08/2024 Travel Social History Tobacco Use Types Packs/Day Years Used Date Smoking Tobacco: Every Day Cigarettes Smokeless Tobacco: Never [facility] Utilities Answer Date Recorded In the past 12 months has th e [employer], gas, oil, or water [employer] threatened to shut off services in your [...] 3:00 PM EST Appointment [place] [address] HEMATOLOGY AND ONCOLOGY [place], [place] [address] 06/24/2024 2:30 PM EST Office Visit Hematology/Oncology at [address] [phone] Osvaldo Hatch MD [facility] DR HEMATOLOGY [place] [address] [address] [place] [address] documented as of this encounter Visit Diagnoses Not on filedocumented in this encounter Care Teams Signal Circuit Designer Relationship Specialty Start Date End Date Unknown None PCP - General 06/27/23 documented as of this encounter
--- OUTSIDE RECORDS SUMMARY | 2024-05-28 11:41 | XMS_ITS | Encounter Summary ---
Author Organization [facility] Address [facility] [place] [address] Care Team Providers Care Payroll And Benefits Coordinator Name Role Phone Unknown Primary Care Provider Unavailabl e Encounter Details Date Type Department Care Team (Latest Contact Info) Description 03/04/2024 Travel Social History Tobacco Use Types Packs/Day Years Used Date Smoking Tobacco: Every Day Cigarettes Smokeless Tobacco: Never [facility] Utilities Answer Date Recorded In the past 12 months has th e [employer], gas, oil, or water [employer] threatened to shut off services in your [...] 3:00 PM EST App[place]ment [place] [address] HEMATOLOGY AND ONCOLOGY [place], [place] [address] 06/24/2024 2:30 PM EST Office Visit Hematology/Oncology at [address] [phone] Osvaldo Hatch MD [facility] DR [place] [address] [address] HEMATOLOGY [place] [address] documented as of this encounter Visit Diagnoses Not on filedocumented in this encounter Care Teams Payroll And Benefits Coordinator Relationship Specialty Start Date End Date Unknown None PCP - General 06/27/23 documented as of this encounter
--- OUTSIDE RECORDS SUMMARY | 2024-05-28 11:41 | XMS_ITS | Encounter Summary ---
Author Organization [facility] Address [facility] [place] [address] Care Team Providers Care Merchandising Coordinator Name Role Phone Unknown Primary Care Provider Unavailabl e Encounter Details Date Type Department Care Team (Late st Contact Info) Description 03/04/2024 11:30 AM EDT Office Visit Hematology/Oncology at [address] [phone] Dony Hatch MD [facility] [address] [place] [address] Dana Nevarez APRN [address] [place] [address] DR HEMATOLOGY AND ONCOLOGY [place], [place] [id number] Primary malignant neoplasm of right upper lobe of lung; Pneumonitis; COPD with exacerbation Social History Tobacco Use Types Packs/Day Years Used Date Smoking Tobacco: Every Day Cigarettes Smokeless Tobacco: Never [facility] Utilities Answer Date Recorded In the past 12 months has [employer], gas, oil, or water [employer] threatened to shut off services in your home? Yes 10/16/2023 Overall Financial Resource Strain (CARDIA) Dilan r Date Recorded How hard is it [...] place to sleep or slept in a custodial (including now)? Yes 10/16/2023 Sex and Gender Information Value Date Recorded Sex Assigned at Not on file Gender Identity Not on file Sexual Orientation Not on file documented as of this encounter Last Filed Vital Signs Vital Sign Reading Time Taken Comments Blood Pressure 129/96 03/04/2024 12:15 PM EDT Pulse 106 03/04/2024 12:15 PM EDT Temperature 36.3 ??C (97.3 ??F) 03/04/2024 12:15 PM E DT Respiratory Rate 18 03/04/2024 12:15 PM EDT Oxygen Saturation 96% 03/04/2024 12:15 PM EDT Inhaled Oxygen Concentration - - Weight 55.5 kg (122 lb 6.4 oz) 03/04/2024 12:15 PM EDT Height 166.1 cm (5' 5.39) 03/04/2024 12:15 PM E DT Body Mass Index 20.12 03/04/2024 12:15 PM EDT documented in this encounter Patient Instructions * Patient Instructions* Dony Hatch MD - 03/04/2024 11:30 AM EDT As we discussed your recent scan shows your cancer has responded very well to the treatment with significant shrinkage. This is great news! However, we are also seeing inflammation in the lungs that is new. Sometimes the immunotherapy (theKEYTRUDA) you are receiving causes the body to attack itself instead of just going after the cancer. We call this PNEUMONITIS., when it affects the lungs. To treat this we will pause your cancer treatment and we will start you on a steroid medication called PREDNISONE. Prednisone helps reduce the body's immune response and decreases inflammation from the pneumonitis. While it is scary to stop the immunotherapy (since it is working on the cancer), our studies show that this pause in the Keytruda/pembrolizumab is not going to make the cancer suddenly go wild. We will have you take this for several weeks and gradually taper down the dose. If we leave you on high doses for too long you are more likely to get serious side effects including infections, thinning of the bones and cataracts among other side effects. Therefore we will give you a prescription with 10mg pills and you will need to count out the pills for each dose following the schedule below. Steroids can cause stomach upset so it is best to take them with food. Some people notice that steroids give them a little boost of energy which is nice but steroids can also make it difficult to sleep or cause irritability in some people so it is best to take them early in the day when possible. You may also notice that your skin becomes a bit fragile and you will be more likely to easily bruise. If you have diabetes, steroids can also make your blood sugar levels go up while you are on them. To reduce the risk of infections while on the Prednisone we also want you to take an antibiotic called BACTRIM (aka. Trimethoprim/Sulfamethoxazole) that prevents infections. You should take this eachMONDAY, MONDAY, MONDAY while you are on the steroids. SCHEDULE: Starting today take PREDNISONE 60mg for 7 days On Sunday 03/04 please decrease this to 50mg daily and continue it for the week. On Sunday 03/11 please decrease this to 40mg daily for the week On Sunday 03/18 please decrease this to 30mg daily for the week On Sunday 03/25 please decrease this to 20mg daily and keep it there until I see you next (in about amonth) and will advise on the next steps in the taper at that time. I will schedule you to resume the chemotherapy drug (aka PEMETREXED) at that time but would not recommend resuming the Keytruda at that time. We can consider it perhaps down the road but we have to be careful because occasionally pneumonitis can be life threatening. documented in this encounter Progress Notes * Dony Hatch MD - 03/04/2024 11:30 AM EDT Images from the original note were not included. Thoracic Oncology [facility] [place] [phone] Nakita Hancock is being seen for the evaluation of [...] also with changes c/w pneumonitis. # NSCLC -hold treatment for now - Address pneumonitis - If improved can resume pemetrexed in 4-5 weeks - Also could consider radiation to the residual disease though she is a little leary of this # Pneumonitis - immune mediated - Steroid taper as below. Patient Instructions: Patient Instructions As we discussed your recent scan shows your cancer has responded very well to the treatment with significant shrinkage. This is great news! However, we are also seeing inflammation in the lungs that is new. Sometimes the immunotherapy (theKEYTRUDA) you are receiving causes the body to attack itself instead of just going after the cancer. We call this PNEUMONITIS., when it affects the lungs. To treat this we will pause your cancer treatment and we will start you on a steroid medication called PREDNISONE. Prednisone helps reduce the body's immune response and decreases inflammation from the pneumonitis. While it is scary to stop the immunotherapy (since it is working on the cancer), our studies show that this pause in the Keytruda/pembrolizumab is not going to make the cancer suddenly go wild. We will have you take this for several weeks and gradually taper down the dose. If we leave you on high doses for too long you are more likely to get serious side effects including infections, thinning of the bones and cataracts among other side effects. Therefore we will give you a prescription with 10mg pills and you will need to count out the pills for each dose following the schedule below. Steroids can cause stomach upset so it is best to take them with food. Some people notice that steroids give them a little boost of energy which is nice but steroids can also make it difficult to sleep or cause irritability in some people so it is best to take them early in the day when possible. You may also notice that your skin becomes a bit fragile and you will be more likely to easily bruise. If you have diabetes, steroids can also make your blood sugar levels go up while you are on them. To reduce the risk of infections while on the Prednisone we also want you to take an antibiotic called BACTRIM (aka. Trimethoprim/Sulfamethoxazole) that prevents infections. You should take this eachMONDAY, MONDAY, MONDAY while you are on the steroids. SCHEDULE: Starting today take PREDNISONE 60mg for 7 days On Sunday 03/04 please decrease this to 50mg daily and continue it for the week. On Sunday 03/11 please decrease this to 40mg daily for the week On Sunday 03/18 please decrease this to 30mg daily for the week On Sunday 03/25 please decrease this to 20mg daily and keep it there until I see you next (in about amonth) and will advise on the next steps in the taper at that time. I will schedule you to resume the chemotherapy drug (aka PEMETREXED) at that time but would not recommend resuming the Keytruda at that time. We can consider it perhaps down the road but we have to be careful because occasionally pneumonitis can be life threatening. Dony Hatch MD, MS 03/04/2024 Medical Oncology & Hematology [facility] CC: HPI/Interval History/Subjective: Last seen 12/20/2023 Had been doing much better but then got winded recently. Steroids started last week and did help a bit No baseline hearing loss. Still smoking about 1/2 ppd Anxiety is better as her breathing jareth improved. No need lorazepam. Social History/Support Network: Home situation: Single parent. 15 year old daughter- Oliva. Originally from [place]. 25 year old son Annette is her emergency contact. Employment: [employer] Tobacco use: 1 pack/day smoking history for [...] Not on file Utilities: At Risk (10/16/2023) [facility] Utilities Threatened with loss of utilities: [...] Screen shot from Dr. Rosario's records at [facility] In progress Presentation: Nakita Hancock is a [...] time she met with thoracic surgery at [facility]. For evaluation with staging EBUS was planned. She did not come to the visit. She was also referred to medical oncology at that time but did not come. Multiple telephone calls were made and letters sent in hopes that she might reschedule. She ultimately connected with [facility] pulmonary medical oncology and underwent additional evaluation [...] her body. Staging/PreTx Eval: 10.12.2016 CT Chest 12.22.21 CT chest 01.13.22 MRI Brain- no metastases 01.31.22 PET scan 1. FDG avid 5.5 cm RIGHT upper lobe mass, highly suspicious for primary lung malignancy. 2. No regional or distant sites of metastasis. 3. CT visualized subcentimeter opacity at the posterior margin of the right lower lobe, similar in size compared to CT of 10/12/2016, strongly favoring a benign etiology. 02.08.23 PET scan ([facility]) 1. The large primary mass in the [...] of the left adrenal gland, stable since 2016. Consider follow-up with PET/CT given described uptake in the left adrenal gland. 05/08/23 -repeat imaging I reviewed records indicating enlargement of the right upper lobe mass with a new right middle lobe nodule and left-sided masses most likely to represent metastatic disease and the plan at [facility] was for systemic therapy followed by consolidative [...] Data: NA Treatment Course: 11.01.23 C1 Carbo/pem/pem 5.. C2 Carbo/pem/pem 5..24 CT Chest 12/20/23 C3 carbo/pem/pem 8.04.09 PET New GGOs c/w pnuemonitis- started steroid [...] Exam: Wt Readings from Last 3 Encounters: 01/17/24 54.8 kg (120 lb 12.8 oz) 12/20/23 54.8 kg (120 lb 12.8 oz) 11/27/23 53.9 kg (118 lb 12.8 oz) Temp Readings from Last 3 Encounters: 01/17/24 36.6 ??C (97.8 ??F) (Temporal) 12/20/23 36.4 ??C (97.5 ??F) (Temporal) 11/27/23 36.5 ??C (97.7 ??F) (Temporal) BP Readings from Last 3 Encounters: 01/17/24 124/74 12/20/23 127/75 11/27/23 128/77 Pulse Readings from Last 3 Encounters: 01/17/24 (!) 101 12/20/23 (!) 108 11/27/23 (!) 107 There is no height or weight on file to calculate BSA. Wt Readings from Last 3 Encounters: 01/17/24 54.8 kg (120 lb 12.8 oz) 12/20/23 54.8 kg (120 lb 12.8 oz) 11/27/23 53.9 kg (118 lb 12.8 oz) KPS Score ECOG Grade [...] Judgment: Judgment normal. Review of Laboratory Data: 03.04. White blood cell count 9.86 hemoglobin 14.7 [...] of Pathology Data: documented in this encounter Miscellaneous Notes * Addendum Note - oDny Hatch MD - 03/04/2024 11:30 AM EDTAddended by: DONY HATCH on: 03/11/2024 01:08 PM Modules accepted: Orders documented in this encounter Plan of Treatment Upcoming Encounters Date Type Department Care Team (Late st Contact Info) Description 06/21/2024 3:00 PM EST Appointment [place] [address] HEMATOLOGY AND ONCOLOGY [place], [place] [id number] 06/24/2024 2:30 PM EST Office Visit Hematology/Oncology at [address] [phone] Dony Hatch MD [facility] DR [place] [address] [address] HEMATOLOGY [place] [address] documented as of this encounter Visit Diagnoses Diagnosis Primary malignant neoplasm of right upper lobe of lung Malignant neoplasm of upper lobe, bronchus or lung Pneumonitis Pneumonia, organism unspecified COPD with exacerbation Obstructive chronic bronchitis with exacerbation documented in this encounter Care Teams Merchandising Coordinator Relationship Specialty Start Date End Date Unknown None PCP - General 06/27/23 documented as of this encounter
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
--- OUTSIDE RECORDS SUMMARY | 2024-05-28 11:41 | XMS_ITS | Encounter Summary ---
Author Organization [facility] [place] [address] Care Team Providers Care Industry Consultant Name Role Phone Unknown Primary Care Provider Unavailabl e Reason for Visit * Reason Onset Date Comments Other 03/25/2024 Financial resour judson Encounter Details Date Type Department Care Team (Late st Contact Info) Description 03/25/2024 Telephone Hematology/Oncology at [address] [phone] Michelle Marsh, LAWN CARE WORKER OFFICE OF CARE MANAGEMENT Other (Financial resources) Social History Tobacco Use Types Packs/Day Years Used Date Smoking Tobacco: Every Day Cigarettes Smokeless Tobacco: Never [facility] Utilities Answer Date Recorded In the [...] place to sleep or slept in a group home (including now)? Yes 10/16/2023 Sex and Gender Information Value Date Recorded Sex Assigned at Not on file Gender Identity Not on file Sexual Orientation Not on file documented as of this encounter Miscellaneous Notes * Telephone Encounter - Michelle Marsh MSW - 03/25/2024 10:02 AM EDT Received required information from [employer] to complete her application to the [facility] to request $800 towards rent and a food/grocery card. Completed ans submitted the application per [employer]'s request. TC [employer] to inform her the application was submitted and reminded her ot the 5 week turn around time for a decision. Sony indicated LEONARDO has helped her with 3 months back rent. She indicated shepaid February and will have Sept rent next week. The [facility] funds if approved with catch her up on the back rent she owed. Will follow up with sony when she comes into the clinic. Food insecurity resources Financial resources Community Resource documented in this encounter Plan of Treatment Upcoming Encounters Date Type Department Care Team (Late st Contact Info) Description 06/21/2024 3:00 PM EST Appointment [place] [address] Dana Nevarez, [address] H[place]ATOLOGY [place] [address] 06/24/2024 2:30 PM EST Office Visit Hematology/Oncology at [address] [phone] Osvaldo Hatch MD [facility] DR HEMAT[place]Y [place] [address] Dana Nevarez APRN [address] [place] [address] DR [place]EM[place]Y [place] [address] documented as of this encounter Visit Diagnoses Not on filedocumented in this encounter Care Teams Industry Consultant Relationship Specialty Start Date End Date Unknown None PCP - General 06/27/23 documented as of this encounter
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
--- OUTSIDE RECORDS SUMMARY | 2024-05-28 11:41 | XMS_ITS | Encounter Summary ---
Author Organization [facility] Address [facility] [place] [address] Care Team Providers Care Hearing Examiner Name Role Phone Unknown Primary Care Provider Unavailabl e Encounter Details Date Type Department Care Team (Late st Contact Info) Description 02/19/2024 Telephone Hematology/Oncology at [address] [phone] Kaitlynn Tavarez Social History Tobacco Use Types Packs/Day Years Used Date Smoking Tobacco: Every Day Cigarettes Smokeless Tobacco: Never [facility] Utilities Answer Date Recorded In [...] place to sleep or slept in a long-term (including now)? Yes 10/16/2023 Sex and Gender Information Value Date Recorded Sex Assigned at Not on file Gender Identity Not on file Sexual Orientation Not on file documented as of this encounter Miscellaneous Notes * Telephone Encounter - Kaitlynn Tavarez - 02/19/2024 9:50 AM EDT Called Nakita on 02/13 and 02/18 about a missed appointment on 02/13, had to leave VM both days ononly number listed to have her called back when available documented in this encounter Plan of Treatment Upcoming Encounters Date Type Department Care Team (Late st Contact Info) Description 06/21/2024 3:00 PM EST Appointment [place] [address] Dana Nevarez [address] HEMATOLOGY AND ONCOLOGY [place], [place] [id number] 06/24/2024 2:30 PM EST Office Visit Hematology/Oncology at [address] [phone] Osvaldo Hatch MD [facility] DR [place] [address] [address] HEMATOLOGY AND ONCOLOGY [place], [place] [id number] documented as of this encounter Visit Diagnoses Not on filedocumented in this encounter Care Teams Hearing Examiner Relationship Specialty Start Date End Date Unknown None PCP - General 06/27/23 documented as of this encounter
--- OUTSIDE RECORDS SUMMARY | 2024-05-28 11:41 | XMS_ITS | Encounter Summary ---
[place] [address] Care Team Providers Care Systems Programmer Name Role Phone Unknown Primary Care Provider Unavailabl e Encounter Details Date Type Department Care Team (Late st Contact Info) Description 02/07/2024 Telephone [place] [address] Narcisa Coleman Social History Tobacco Use Types Packs/Day Years Used Date Smoking Tobacco: Every Day Cigarettes Smokeless Tobacco: Never [facility] Utilities Answer Date Recorded In the past [...] 3:00 PM EST Appointment [place] [address] HEMATOLOGY AND ONCOLOGY [place], [place] [address] 06/24/2024 2:30 PM EST Office Visit Hematology/Oncology at [address] [phone] Osvaldo Hatch MD [facility] DR [place] [address] [address] HEMATOLOGY AND ONCOLOGY [place], [place] [address] documented as of this encounter Visit Diagnoses Not on filedocumented in this encounter Care Teams Systems Programmer Relationship Specialty Start Date End Date Unknown None PCP - General 06/27/23 documented as of this encounter
--- OUTSIDE RECORDS SUMMARY | 2024-05-28 11:41 | XMS_ITS | Encounter Summary ---
Author Organization [facility] Address [facility] [place] [address] Care Team Providers Care Patient Registration Clerk Name Role Phone Unknown Primary Care Provider Unavailabl e Encounter Details Date Type Department Care Team (Latest Contact Info) Description 05/07/2024 Travel Social History Tobacco Use Types Packs/Day Years Used Date Smoking Tobacco: Every Day Cigarettes Smokeless Tobacco: Never [facility] Utilities Answer Date Recorded In the past 12 months has th e [employer], gas, oil, or water [employer] threatened to shut off services in your [...] 3:00 PM EST App[place] [address] HEMATOLOGY AND ONCOLOGY [place], [place] [address] 06/24/2024 2:30 PM EST Office Visit Hematology/Oncology at [address] [phone] Osvaldo Hatch MD [facility] DR HEMATOLOGY [place] [address] [address] [place] [address] documented as of this encounter Visit Diagnoses Not on filedocumented in this encounter Care Teams Patient Registration Clerk Relationship Specialty Start Date End Date Unknown None PCP - General 06/27/23 documented as of this encounter
--- OUTSIDE RECORDS SUMMARY | 2024-05-28 11:41 | XMS_ITS | Encounter Summary ---
Author Organization [facility] Address [facility] [place] [address] Care Team Providers Care Reinsurance Claims Analyst Name Role Phone Unknown Primary Care Provider Unavailabl e Reason for Visit * Reason Onset Date Comments Other 05/07/2024 Financial resour ce Encounter Details Date Type Department Care Team (Late st Contact Info) Description 05/07/2024 Telephone Hematology/Oncology at [address] [phone] Michelle Marsh, FIELD INVESTIGATOR OFFICE OF CARE MANAGEMENT Other (Financial resource) Social History Tobacco Use Types Packs/Day Years Used Date Smoking Tobacco: Every Day Cigarettes Smokeless Tobacco: Never [facility] Utilities Answer Date Recorded In [...] Telephone Encounter - Michelle Marsh MSW - 05/07/2024 10:25 AM EDT TC from Nakita. She indicated she did receive her email from the [employer] stating they will pay $700 [employer]. Nakita has notified the [employer] but they want verification from FIELD INVESTIGATOR rethis. With Nakita's permission [employer], spoke to Lisa and verified [facility] will be sending a payment of $700. Care Coordination documented in this encounter Plan of Treatment Upcoming Encounters Date Type Department Care Team (Late st Contact Info) Description 06/21/2024 3:00 PM EST Appointment [place] [address] Dana Nevarez APRN [address] [place] [address] DR HEMATOLOGY AND ONCOLOGY [place], [place] [address] 06/24/2024 2:30 PM EST Office Visit Hematology/Oncology at [address] [phone] Osvaldo Hatch MD [facility] DR [place] [address] Dana Nevarez APRN [address] [place] [address] DR [place] [address] documented as of this encounter Visit Diagnoses Not on filedocumented in this encounter Care Teams Reinsurance Claims Analyst Relationship Specialty Start Date End Date Unknown None PCP - General 06/27/23 documented as of this encounter
--- OUTSIDE RECORDS SUMMARY | 2024-05-28 11:41 | XMS_ITS | Encounter Summary ---
Author Organization [facility] Address [facility] [place] [address] Care Team Providers Care Psychological Stress Evaluator Name Role Phone Unknown Primary Care Provider Unavailabl e Encounter Details Date Type Department Care Team (Late st Contact Info) Description 03/29/2024 Orders Only [place]ology [place] [address] Osvaldo Hatch MD [facility] DR HEMATOLOGY [place] [address] Primary malignant neoplasm of right upper lobe of lung Social History Tobacco Use Types Packs/Day Years [...] 3:00 PM EST Appointment [place] [address] HEMATOLOGY AND ONCOLOGY [place], [place] [address] 06/24/2024 2:30 PM EST Office Visit Hematology/Oncology at [address] [phone] Osvaldo Hatch MD [facility] DR HEMATOLOGY [place] [address] [address] [place] [address] documented as of this encounter Visit Diagnoses Diagnosis Primary malignant neoplasm of right upper lobe of lung Malignant neoplasm of upper lobe, bronchus or lung documented in this encounter Care Teams Psychological Stress Evaluator Relationship Specialty Start Date End Date Unknown None PCP - General 06/27/23 documented as of this encounter
--- OUTSIDE RECORDS SUMMARY | 2024-05-28 11:41 | XMS_ITS | Encounter Summary ---
Author Organization [facility] Address [facility] [place] [address] Care Team Providers Care Fuel Cell Technician Name Role Phone Unknown Primary Care Provider Unavailabl e Encounter Details Date Type Department Care Team (Latest Contact Info) Description 04/29/2024 Travel Social History Tobacco Use Types Packs/Day Years Used Date Smoking Tobacco: Every Day Cigarettes Smokeless Tobacco: Never [facility] Utilities Answer Date Recorded In the past 12 months has th e [employer], gas, oil, or water [employer] threatened to shut off services in your [...] 3:00 PM EST Appointment [place] [address] HEMATOLOGY AND ONCOLOGY [place], [place] [address] 06/24/2024 2:30 PM EST Office Visit Hematology/Oncology at [address] [phone] Osvaldo Hatch MD [facility] [place] [address] [address] [place] [address] documented as of this encounter Visit Diagnoses Not on filedocumented in this encounter Care Teams Fuel Cell Technician Relationship Specialty Start Date End Date Unknown None PCP - General 06/27/23 documented as of this encounter
--- OUTSIDE RECORDS SUMMARY | 2024-05-28 11:41 | XMS_ITS | Encounter Summary ---
Author Organization [facility] Address [facility] [place] [address] Care Team Providers Care Rn Discharge Name Role Phone Unknown Primary Care Provider Unavailabl e Reason for Visit * Reason Onset Date Comments Other 03/07/2024 Financial resour judson Encounter Details Date Type Department Care Team (Late st Contact Info) Description 03/07/2024 Telephone Hematology/Oncology at [address] [phone] Michelle Marsh, CRYSTAL SLICER OFFICE OF CARE MANAGEMENT Other (Financial resources) Social History Tobacco Use Types Packs/Day Years Used Date Smoking Tobacco: Every Day Cigarettes Smokeless Tobacco: Never [facility] Utilities Answer Date Recorded In [...] Telephone Encounter - Michelle Marsh MSW - 03/07/2024 3:27 PM EDT TC from Nakita stating she will bring in her financial information (proof of her monthly income) tomorrow which CRYSTAL SLICER needs to apply to the [facility] to request assistance with her rent. Once CRYSTAL SLICER has the required information will complete her application to the [facility]. Financial resources Community Resource documented in this encounter Plan of Treatment Upcoming Encounters Date Type Department Care Team (Late st Contact Info) Description 06/21/2024 3:00 PM EST Appointment [place] [phone] Dana Nevarez APRN [address] [place] [address] DR HEMATOLOGY AND ONCOLOGY [place], [place] [phone] 06/24/2024 2:30 PM EST Office Visit Hematology/Oncology at [address] [phone] Osvaldo Hatch MD [facility] DR [place] [address] Dana Nevarez APRN [address] [place] [address] [place] [address] documented as of this encounter Visit Diagnoses Not on filedocumented in this encounter Care Teams Rn Discharge Relationship Specialty Start Date End Date Unknown None PCP - General 06/27/23 documented as of this encounter
--- OUTSIDE RECORDS SUMMARY | 2024-05-28 11:41 | XMS_ITS | Encounter Summary ---
Author Organization [facility] [place] [address] Care Team Providers Care Appliquer Zigzag Name Role Phone Unknown Primary Care Provider Unavailabl e Reason for Visit * Reason Onset Date Comments Follow-up 04/15/2024 Prednisone taper Encounter Details Date Type Department Care Team (Late st Contact Info) Description 04/15/2024 Telephone Hematology/Oncology at [address] [phone] Susan Rodgers, RN Follow-up (Prednisone taper) Social History Tobacco Use Types Packs/Day Years Used Date Smoking Tobacco: Every Day Cigarettes Smokeless Tobacco: Never [facility] Utilities Answer Date Recorded In the [...] encounter Miscellaneous Notes * Telephone Encounter - Susan Rodgers RN - 04/15/2024 4:33 PM EDT Let Nakita know a refill will be sent for the prednisone so she can finish the taper. * Telephone Encounter - Susan Rodgers RN - 04/15/2024 12:48 PM EDT Call to Nakita to follow up on prednisone taper. She states she began taking two, 10 mg pills per day today. Reviewed dosing instructions on the prescription, she should be at 10mg per day starting tomorrow, 04/16. She became upset, stating she was verbally told something different and went with those instructions. She only has 4.5 tablets left, so she'll need a refill. She took half a tablet more one day last week because she felt more wheezy. She also continues to have bloating immediately after eating anything. She doesn't feel the omeprazole is helping, still using miralax. documented in this encounter Plan of Treatment Upcoming Encounters Date Type Department Care Team (Late st Contact Info) Description 06/21/2024 3:00 PM EST Appointment [place] [address] [address] HEMATOLOGY AND ONCOLOGY [place], [place] [address] 06/24/2024 2:30 PM EST Office Visit Hematology/Oncology at [address] [phone] Osvaldo Hatch MD [facility] DR [place]EMATOLOGY [place] [address] [address] HEMATOLOGY AND ONCOLOGY [place], [place] [address] documented as of this encounter Visit Diagnoses Not on filedocumented in this encounter Care Teams Appliquer Zigzag Relationship Specialty Start Date End Date Unknown None PCP - General 06/27/23 documented as of this encounter
--- OUTSIDE RECORDS SUMMARY | 2024-05-28 11:41 | XMS_ITS | Encounter Summary ---
Author Organization [facility] Address [facility] [place] [address] Care Team Providers Care Consultant [employer]. Vice President [employer]Ex ) Name Role Phone Unknown Primary Care Provider Unavailabl e Encounter Details Date Type Department Care Team (Late st Contact Info) Description 03/22/2024 Orders Only [place] [address] Osvaldo Hatch MD [facility] DR [place] [address] Constipation, unspecified constipation type Social History Tobacco Use Types Packs/Day Years Used Date Smoking Tobacco: Every Day Cigarettes Smokeless Tobacco: Never [facility] Utilities Answer Date Recorded In [...] place to sleep or slept in a retirement (including now)? Yes 10/16/2023 Sex and Gender Information Value Date Recorded Sex Assigned at Not on file Gender Identity Not on file Sexual Orientation Not on file documented as of this encounter Plan of Treatment Upcoming Encounters Date Type Department Care Team (Late st Contact Info) Description 06/21/2024 3:00 PM EST Appointment [place] [address] [address] HEMATOLOGY AND ONCOLOGY [place], [place] [address] 06/24/2024 2:30 PM EST Office Visit Hematology/Oncology at [address] [phone] Osvaldo Hatch MD [facility] DR [place] [address] [address] HEMATOLOGY AND ONCOLOGY [place], [place] [address] documented as of this encounter Visit Diagnoses Diagnosis Constipation, unspecified constipation type documented in this encounter Care Teams Consultant [employer]. Vice President [employer] (Ex ) Relationship Specialty Start Date End Date Unknown None PCP - General 06/27/23 documented as of this encounter
--- OUTSIDE RECORDS SUMMARY | 2024-05-28 11:41 | XMS_ITS | Encounter Summary ---
Author Organization [facility] Address [facility] [place] [address] Care Team Providers Care Financial Compliance Manager Name Role Phone Unknown Primary Care Provider Unavailabl e Reason for Visit * Reason Onset Date Comments Other 04/16/2024 Financial assist ance Encounter Details Date Type Department Care Team (Late st Contact Info) Description 04/16/2024 Telephone Hematology/Oncology at [address] [phone] Michelle Marsh, SHINGLE GRADER OFFICE OF CARE MANAGEMENT Other (Financial assistance) Social History Tobacco Use Types Packs/Day Years Used Date Smoking Tobacco: Every Day Cigarettes Smokeless Tobacco: Never [facility] Utilities Answer Date Recorded [...] Telephone Encounter - Michelle Marsh MSW - 04/16/2024 10:16 AM EDT Received bills from Nakita. SIMÓN edited her application to the [facility] to ask for financial assistance for her electric bill $612 and $188 towards her [employer] bill. Will notify Nakita outcome of her request. Care Coordination Financial resources Community Resource documented in this encounter Plan of Treatment Upcoming Encounters Date Type Department Care Team (Late st Contact Info) Description 06/21/2024 3:00 PM EST Appointment [place] [phone] Dana Nevarez APRN [address] [place] [address] DR HEMATOLOGY AND ONCOLOGY [place], [place] [address] 06/24/2024 2:30 PM EST Office Visit Hematology/Oncology at [address] [phone] [facility] DR HEMATOLOGY [place] [address] Dana Nevarez APRN [address] [place] [address] DR HEMATOLOGY [place] [address] documented as of this encounter Visit Diagnoses Not on filedocumented in this encounter Care Teams Financial Compliance Manager Relationship Specialty Start Date End Date Unknown None PCP - General 06/27/23 documented as of this encounter
--- OUTSIDE RECORDS SUMMARY | 2024-05-28 11:41 | XMS_ITS | Encounter Summary ---
Author Organization [facility] Address [facility] [place] [address] Care Team Providers Care Bar Machine Operator Production Name Role Phone Unknown Primary Care Provider Unavailabl e Encounter Details Date Type Department Care Team (Late st Contact Info) Description 03/11/2024 Telephone Hematology/Oncology at [address] [phone] Simin Jung RN Social History Tobacco Use Types Packs/Day Years Used Date Smoking Tobacco: Every Day Cigarettes Smokeless Tobacco: Never [facility] Utilities Answer Date Recorded In the [...] Telephone Encounter - Simin Jung RN - 03/11/2024 1:20 PM EDT Call to Nakita to assess how she is feeling since starting prednisone. She has been taking 60mg daily for a week now and does not feel relief. She is SOB all the time and uncomfortable. She states when she is sitting still doing absolutely nothing that is the only time she is not SOB. She is not audibly SOB while speaking to her on the phone. She also reports coughing up green phlegm starting recently. She also reports constipation, gas and bloating. She was resistant to try senna or Doculax but sounded like she would try. Encouraged hydration and exercise. She reports not feeling any hunger pains and has no appetite. 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 Reviewed with Dr. Hatch. He advised to continue on the 60mg daily for another week to give pred somemore time. He also ordered Augmentin for green sputum. Nakita agreed with this plan. We will checkin again next week. * Telephone Encounter - Simin Jung RN - 03/11/2024 1:19 PM EDT ----- Message from Jing Ashraf RN sent at 03/11/2024 10:22 AM EDT ----- Regarding: FW: Pred Taper ----- Message ----- From: Simin Jung, RN Sent: 03/11/2024 12:00 AM EDT To: St Hem Onc Nurse Subject: Pred Taper Triage- please call her each Monday to make sure her breathing is improing on the steroid taper (see AVS for instructions) documented in this encounter Plan of Treatment Upcoming Encounters Date Type Department Care Team (Late st Contact Info) Description 06/21/2024 3:00 PM EST Appointment [place] [address] HEMATOLOGY AND ONCOLOGY [place], [place] [address] 06/24/2024 2:30 PM EST Office Visit Hematology/Oncology at [address] [phone] Osvaldo Hatch MD [facility] DR HEMATOLOGY [place] [address] [address] HEMATOLOGY AND ONCOLOGY [place], [place] [id number] documented as of this encounter Visit Diagnoses Not on filedocumented in this encounter Care Teams Bar Machine Operator Production Relationship Specialty Start Date End Date Unknown None PCP - General 06/27/23 documented as of this encounter
--- OUTSIDE RECORDS SUMMARY | 2024-05-28 11:41 | XMS_ITS | Encounter Summary ---
Author Organization [facility] Address [facility] [place] [address] Care Team Providers Care Glass Or Mirror Inspector Name Role Phone Unknown Primary Care Provider Unavailabl e Reason for Visit * Reason Onset Date Comments Other 05/02/2024 Financial resour ce Encounter Details Date Type Department Care Team (Late st Contact Info) Description 05/02/2024 Telephone Hematology/Oncology at [address] [phone] Michelle Marsh, COTTON SAMPLER OFFICE OF CARE MANAGEMENT Other (Financial resource) [...] Telephone Encounter - Michelle Marsh MSW - 05/02/2024 9:04 AM EDT Received notification from the [facility] that they approves Nakita's request for financial assistance with her electric bill. The [facility] is going to send $700 in on her outstanding electric bill. TC Nakita to notify her of this but no answer and unable to leave a message because her mailbox is full. Care Coordination Financial resources Community Resource TC with Nakita and notified her of the financial assistance the [facility] is providing on her electric bill. documented in this encounter Plan of Treatment Upcoming Encounters Date Type Department Care Team (Late st Contact Info) Description 06/21/2024 3:00 PM EST Appointment [place] [address] Dana Nevarez APRN [address] [place] [address] DR HEMATOLOGY AND ONCOLOGY [place], [place] [id number] 06/24/2024 2:30 PM EST Office Visit Hematology/Oncology at [address] [phone] Osvaldo Hatch MD [facility] DR HEMATOLOGY [place] [address] Dana Nevarez APRN [address] [place] [address] DR [place] [address] documented as of this encounter Visit Diagnoses Not on filedocumented in this encounter Care Teams Glass Or Mirror Inspector Relationship Specialty Start Date End Date Unknown None PCP - General 06/27/23 documented as of this encounter
--- OUTSIDE RECORDS SUMMARY | 2024-05-28 11:41 | XMS_ITS | Encounter Summary ---
Author Organization [facility] [place] [address] Care Team Providers Care Biztalk Architect Name Role Phone Unknown Primary Care Provider Unavailabl e Reason for Visit * Reason Onset Date Comments Other 04/09/2024 Housing issues Encounter Details Date Type Department Care Team (Late st Contact Info) Description 04/09/2024 Telephone Hematology/Oncology at [address] [phone] Michelle Marsh, MAGISTRATE ASSISTANT OFFICE OF CARE MANAGEMENT Other (Housing issues) Social History Tobacco Use Types Packs/Day Years Used Date Smoking Tobacco: Every Day Cigarettes Smokeless Tobacco: Never [facility] Utilities Answer Date Recorded In [...] place to sleep or slept in a mcfp (including now)? Yes 10/16/2023 Sex and Gender Information Value Date Recorded Sex Assigned at Not on file Gender Identity Not on file Sexual Orientation Not on file documented as of this encounter Miscellaneous Notes * Telephone Encounter - Michelle Marsh MSW - 04/09/2024 10:52 AM EDT OSBALDO Crawford [facility] [employer] Station Cashier [phone] who is working with Nakita to deal with her back rent and eviction risk. Ms. Crawford is trying to secure funding for Nakita rent which is in arrears 6 months. Her agency may help with 3 months rent is there is another source for the additional 3 months. Informed her the [employer] decline the request for help with rent because of the arrears situation and risk for eviction. Ms. Crawford indicated she is in contact with Nakita's landlord and marcelino NO letter clearing her of this issue yet. So it appears it is still a work in progress. MAGISTRATE ASSISTANT will talk with Nakita about the situation. Will suggest she bring in other bills and MAGISTRATE ASSISTANT can ask the [employer] for help with those costs. OSBALDO Mace and she will bring in bills for other living expenses and MAGISTRATE ASSISTANT will edit her application to the [employer]. documented in this encounter Plan of Treatment Upcoming Encounters Date Type Department Care Team (Late st Contact Info) Description 06/21/2024 3:00 PM EST Appointment Nuclear Medicine at [facility] [place] [address] HEMATOLOGY AND ONCOLOGY [place], [place] [address] 06/24/2024 2:30 PM EST Office Visit Hematology/Oncology at [address] [phone] Osvaldo Hatch MD [facility] DR [place] [address] [address] HEMATOLOGY AND ONCOLOGY [place], [place] [phone] documented as of this encounter Visit Diagnoses Not on filedocumented in this encounter Care Teams Biztalk Architect Relationship Specialty Start Date End Date Unknown None PCP - General 06/27/23 documented as of this encounter
--- OUTSIDE RECORDS SUMMARY | 2024-05-28 11:41 | XMS_ITS | Encounter Summary ---
Author Organization [facility] Address [facility] [place] [address] Care Team Providers Care Vice President Of News Name Role Phone Unknown Primary Care Provider Unavailabl e Encounter Details Date Type Department Care Team (Late st Contact Info) Description 02/28/2024 Orders Only [place] [address] Osvaldo Hatch MD [facility] DR [place] [address] Pneumonitis Social History Tobacco Use Types Packs/Day Years Used Date Smoking Tobacco: Every Day Cigarettes Smokeless Tobacco: Never [facility] Utilities Answer Date Recorded In the past [...] medical appointments or from getting medications? Yes 04/0 07/2023 In the past 12 months, has [...] place to sleep or slept in a half-way (including now)? Yes 10/16/2023 Sex and Gender Information Value Date Recorded Sex Assigned at Not on file Gender Identity Not on file Sexual Orientation Not on file documented as of this encounter Plan of Treatment Upcoming Encounters Date Type Department Care Team (Late st Contact Info) Description 06/21/2024 3:00 PM EST Appointment [place] [address] HEMATOLOGY AND ONCOLOGY [place], [place] [id number] 06/24/2024 2:30 PM EST Office Visit Hematology/Oncology at [address] [phone] Osvaldo Hatch MD [facility] DR [place] [address] [address] HEMATOLOGY [place] [address] documented as of this encounter Visit Diagnoses Diagnosis Pneumonitis Pneumonia, organism unspecified documented in this encounter Care Teams Vice President Of News Relationship Specialty Start Date End Date Unknown None PCP - General 06/27/23 documented as of this encounter
--- OUTSIDE RECORDS SUMMARY | 2024-05-28 11:41 | XMS_ITS | Encounter Summary ---
Author Organization [facility] [place] [address] Care Team Providers Care Bradley Linebacker Crewmember Name Role Phone Unknown Primary Care Provider Unavailabl e Reason for Visit * Reason Onset Date Comments Other 04/08/2024 Community resour ce/food security Encounter Details Date Type Department Care Team (Late st Contact Info) Description 04/08/2024 Telephone Hematology/Oncology at [address] [phone] Michelle Marsh, VIDEOGAME DESIGNER OFFICE OF CARE MANAGEMENT Other (Community resource/food security) Social History Tobacco Use Types Packs/Day Years Used Date Smoking Tobacco: Every Day Cigarettes Smokeless Tobacco: Never [facility] Utilities Answer Date Recorded In the [...] place to sleep or slept in a intermediate (including now)? Yes 10/16/2023 Sex and Gender Information Value Date Recorded Sex Assigned at Not on file Gender Identity Not on file Sexual Orientation Not on file documented as of this encounter Miscellaneous Notes * Telephone Encounter - Michelle Marsh MSW - 04/08/2024 8:37 AM EDT Received notification that the [facility] approved [employer]'s request for a [employer] grocery card worth $250.It will be mailed to her. Her request for $800 towards rent is still pending. OSBALDO cardoza to inform her of this but no answer and unable to leave a message as her mailbox is full. Food insecurity resources Financial resources Community Resource Received message from the [facility] re sony's application requesting assistance with rent. [facility] rto discuss. They will not assist with rent that is in arrears. VIDEOGAME DESIGNER made anther OSBALDO Cardoza to discuss tosee if she is caught up with her rent and is no longer in risk of eviction. Otherwise Sony will have to submit other bills for consideration. OSBALDO Cardoza but no answer and unable to leave a messageas her mailbox is full. OSBALDO Cardoza to explain [facility] decision. She states her landlord no longer considers her at risk for eviction. She has paid her March rent. VIDEOGAME DESIGNER asked if she has a letter from her landlord re this and she does. Asked for a copy and can ask [facility] to reconsider their decision as rent is he greatest expenses. If this does not work will ask Sony for her bills such as car insurance, lights, phone, ect. Will continue to assist her with access the [facility] resource. . documented in this encounter Plan of Treatment Upcoming Encounters Date Type Department Care Team (Late st Contact Info) Description 06/21/2024 3:00 PM EST Appointment [place] [address] HEMATOLOGY AND ONCOLOGY [place], [place] [address] 06/24/2024 2:30 PM EST Office Visit Hematology/Oncology at [address] [phone] Osvaldo Hatch MD [facility] DR HEMATOLOGY [place] [address] [address] HEMATOLOGY AND ONCOLOGY [place], [place] [address] documented as of this encounter Visit Diagnoses Not on filedocumented in this encounter Care Teams Bradley Linebacker Crewmember Relationship Specialty Start Date End Date Unknown None PCP - General 06/27/23 documented as of this encounter
--- OUTSIDE RECORDS SUMMARY | 2024-05-28 11:41 | XMS_ITS | Encounter Summary ---
Author Organization [facility] [place] [address] Care Team Providers Care Sand Car Worker Name Role Phone Unknown Primary Care Provider Unavailabl e Reason for Referral * Consultation (Urgent) - Pending Review Specialty Diagnoses / Procedures Referred By Za laird Referred To Contact Gastroenterology Diagnoses Primary malignant neoplasm of right upper lobe of lung Upper abdominal pain Constipation, unspecified constipation type Abdominal bloating Dana Nevarez APRN [address] [place] [address] DR [place] [address] Referral ID Status Reason Start Date Expiration Date Visits Requested Visits Authorized [id number] Pending Review Test Only 04/19/2024 10/16/2024 1 1 * Consultation (Urgent) - Pending Review Specialty Diagnoses / Procedures Referred By Contsofiya laird Referred To Contact Gastroenterology Diagnoses Primary malignant neoplasm of right upper lobe of lung Upper abdominal pain Constipation, unspecified constipation type Abdominal bloating Dana Nevarez APRN [address] [place] [address] DR [place] [address] Referral ID Status Reason Start Date Expiration Date Visits Requested Visits Authorized [id number] Pending Review Test Only 04/19/2024 10/16/2024 1 1 Encounter Details Date Type Department Care Team (Late st Contact Info) Description 04/19/2024 Orders Only Hematology/Oncology at [address] [place] [phone] Dana Nevarez APRN [address] [place] [address] DR HEMATOLOGY AND ONCOLOGY [facility], [place] [phone] Primary malignant neoplasm of right upper lobe of lung; Upper abdominal pain; Constipation, unspecified constipation type; Abdominal bloating Social History Tobacco Use Types Packs/Day Years [...] 3:00 PM EST Appointment [place] [address] [place] [address] 06/24/2024 2:30 PM EST Office Visit Hematology/Oncology at [address] [phone] Osvaldo Hatch MD [facility] DR [place] [address] [address] HEMATOLOGY AND ONCOLOGY [place], [place] [address] Scheduled Referrals Name Type Priority Associated Diagnoses Orde r Schedule REFERRAL TO COLONOSCOPY PROCEDURE Outpatient Referral Urgent Primary malignant neoplasm of right upper lobe of lung Upper abdominal pain Constipation, unspecified constipation type Abdominal bloating Ordered: 04/19/2024 REFERRAL TO ENDOSCOPY PROCEDURE Outpatient Referral Urgent Primary malignant neoplasm of right upper lobe of lung Upper abdominal pain Constipation, unspecified constipation type Abdominal bloating Ordered: 04/19/2024 documented as of this encounter Visit Diagnoses Diagnosis Primary malignant neoplasm of right upper lobe of lung Malignant neoplasm of upper lobe, bronchus or lung Upper abdominal pain Abdominal pain, other specified site Constipation, unspecified constipation type Abdominal bloating Flatulence, eructation, and gas pain documented in this encounter Care Teams Sand Car Worker Relationship Specialty Start Date End Date Unknown None PCP - General 06/27/23 documented as of this encounter
--- OUTSIDE RECORDS SUMMARY | 2024-05-28 11:41 | XMS_ITS | Encounter Summary ---
Author Organization [facility] [place] [address] Care Team Providers Care Ct Mri Technologist Name Role Phone Unknown Primary Care Provider Unavailabl e Encounter Details Date Type Department Care Team (Late st Contact Info) Description 04/05/2024 Orders Only Hematology/Oncology at [address] [phone] Dana Nevarez DIRECTOR PRINT [address] [place] [address] DR HEMATOLOGY AND ONCOLOGY [place], [place] [id number] Primary malignant neoplasm of right upper lobe of lung; Pneumonitis Social History Tobacco Use Types Packs/Day Years Used Date Smoking Tobacco: Every Day Cigarettes Smokeless Tobacco: Never [facility] Utilities Answer Date Recorded In the [...] on file documented as of this encounter Progress Notes * Jing Francis RN - 04/05/2024 2:44 PM EDT Images from the original note were not included. Cary Andujar [facility] Hem Onc Nurse Prednisone will not last this weekend. Prescription was supposed to last 2 weeks? She stated something about the instructions on the label were not correct. Saw in [facility]. review consultant of chart indicates that this is appropriate refill request. Reviewed taper plan with [facility] APRN. Rx pended to Francisco Nevarez APRN for review and e-sign. documented in this encounter Plan of Treatment Upcoming Encounters Date Type Department Care Team (Late st Contact Info) Description 06/21/2024 3:00 PM EST Appointment [place] [address] Dana Nevarez APRN [address] [place] [address] DR HEMATOLOGY AND ONCOLOGY [place], [place] [id number] 06/24/2024 2:30 PM EST Office Visit Hematology/Oncology at [address] [phone] Osvaldo Hatch MD [facility] DR HEMATOLOGY [place] [address] Dana Nevarez APRN [address] [place] [address] DR HEMATOLOGY [place] [address] documented as of this encounter Visit Diagnoses Diagnosis Primary malignant neoplasm of right upper lobe of lung Malignant neoplasm of upper lobe, bronchus or lung Pneumonitis Pneumonia, organism unspecified documented in this encounter Care Teams Ct Mri Technologist Relationship Specialty Start Date End Date Unknown None PCP - General 06/27/23 documented as of this encounter
--- OUTSIDE RECORDS SUMMARY | 2024-05-28 11:41 | XMS_ITS | Encounter Summary ---
Author Organization [facility] Address [facility] [place] [address] Care Team Providers Care Last Cleaner Name Role Phone Unknown Primary Care Provider Unavailabl e Encounter Details Date Type Department Care Team (Latest Contact Info) Description 04/01/2024 Travel Social History Tobacco Use Types Packs/Day Years Used Date Smoking Tobacco: Every Day Cigarettes Smokeless Tobacco: Never [facility] Utilities Answer Date Recorded In the past 12 months has th e [employer], gas, oil, or water [employer] threatened to shut off services in your [...] 3:00 PM EST Appointment [place] [address] HEMATOLOGY AND ONCOLOGY [place], [place] [address] 06/24/2024 2:30 PM EST Office Visit Hematology/Oncology at [address] [phone] Osvaldo Hatch MD [facility] DR [place] [address] [address] [place] [address] documented as of this encounter Visit Diagnoses Not on filedocumented in this encounter Care Teams Last Cleaner Relationship Specialty Start Date End Date Unknown None PCP - General 06/27/23 documented as of this encounter
--- OUTSIDE RECORDS SUMMARY | 2024-05-28 11:41 | XMS_ITS | Encounter Summary ---
Author Organization [facility] Address [facility] [place] [address] Care Team Providers Care Technology Strategist Name Role Phone Unknown Primary Care Provider Unavailabl e Reason for Visit * Reason Onset Date Comments Other 04/29/2024 Financial assist ance Encounter Details Date Type Department Care Team (Late st Contact Info) Description 04/29/2024 Telephone Hematology/Oncology at [address] [phone] Michelle Marsh, SCHOOL BUS ATTENDANT OFFICE OF CARE MANAGEMENT Other (Financial assistance) Social History Tobacco Use Types Packs/Day Years Used Date Smoking Tobacco: Every Day Cigarettes Smokeless Tobacco: Never [facility] Utilities Answer Date Recorded In the [...] Telephone Encounter - Michelle Marsh MSW - 04/29/2024 10:15 AM EDT OSBALDO Nakita. She called to inquire if decision reached by [facility] re her request for financial assistance for her phone bill and another utility bill. SCHOOL BUS ATTENDANT has not received decision from [facility] yet and again explained the general turn around time for the fund to make a decision. Nakita indicated she received a shut off notice for her electric. Inquired if Nakita is paying on her electric bill as she planned but finances are tight as she has not felt well enough to work last couple of weeks. Inquired if her rent situation had been resolved. She indicated it has resolved. Nakita indicated LEONARDO is paying 3 months for her and she has a plan to cover the rest of her back rent. SCHOOL BUS ATTENDANT will notify Nakita as soon as I hear from the [employer]. She should also be notified directly. Care Coordination Financial resources Community Resource documented in this encounter Plan of Treatment Upcoming Encounters Date Type Department Care Team (Late st Contact Info) Description 06/21/2024 3:00 PM EST Appointment [place] [address] [address] HEMATOLOGY AND ONCOLOGY [place], [place] [address] 06/24/2024 2:30 PM EST Office Visit Hematology/Oncology at [address] [phone] Osvaldo Hatch MD [facility] DR HEMATOLOGY [place] [address] [address] HEMATOLOGY [place] ONCOLOGY [place], [place] [address] documented as of this encounter Visit Diagnoses Not on filedocumented in this encounter Care Teams Technology Strategist Relationship Specialty Start Date End Date Unknown None PCP - General 06/27/23 documented as of this encounter
--- OUTSIDE RECORDS SUMMARY | 2024-05-28 11:41 | XMS_ITS | Encounter Summary ---
Author Organization [facility] Address [facility] [place] [address] Care Team Providers Care Farmworker Egg Producing Farm Name Role Phone Unknown Primary Care Provider Unavailabl e Encounter Details Date Type Department Care Team (Latest Contact Info) Description 02/29/2024 Travel Social History Tobacco Use Types Packs/Day Years Used Date Smoking Tobacco: Every Day Cigarettes Smokeless Tobacco: Never [facility] Utilities Answer Date Recorded In the past 12 months has th e [employer], gas, oil, or water [employer] threatened to shut off services in your [...] 3:00 PM EST Appointment [place] [address] [address] HEMATOLOGY AND ONCOLOGY [place], [place] [address] 06/24/2024 2:30 PM EST Office Visit Hematology/Oncology at [address] [phone] Osvaldo Hatch MD [facility] DR HEMATOLOGY [place] [address] [address] [place] [address] documented as of this encounter Visit Diagnoses Not on filedocumented in this encounter Care Teams Farmworker [employer] Producing Farm Relationship Specialty Start Date End Date Unknown None PCP - General 06/27/23 documented as of this encounter
--- OUTSIDE RECORDS SUMMARY | 2024-05-28 11:41 | XMS_ITS | Encounter Summary ---
Author Organization [facility] [place] [address] Care Team Providers Care Leather Production Artisan Name Role Phone Unknown Primary Care Provider Unavailabl e Reason for Visit * Reason Onset Date Comments Constipation 03/22/2024 Things moving Encounter Details Date Type Department Care Team (Late st Contact Info) Description 03/22/2024 Telephone Hematology/Oncology at [address] [phone] Diana Yanez RN Constipation (Things moving) Social History Tobacco Use Types Packs/Day Years Used Date Smoking Tobacco: Every Day Cigarettes Smokeless Tobacco: Never [facility] Utilities Answer Date Recorded In [...] encounter Miscellaneous Notes * Telephone Encounter - Diana Yanez RN - 03/22/2024 10:08 AM EDT Spoke with Nakita, she states her bowels have started to move. She has had some hard formed stoolsand some liquid. She is only using prune juice as she feels the exlax she has used the pills come thru undissovled. She would like to try miralax, Dr. Hatch in agreement with this and will send in script to Saw in [facility]. She is worried she has neuropathy in her abdomen causing her constipation, Dr. Hatch stated her constipation is not from that. She would like to further discuss when she sees him on documented in this encounter Plan of Treatment Upcoming Encounters Date Type Department Care Team (Late st Contact Info) Description 06/21/2024 3:00 PM EST Appointment [place] [address] Dana Nevarez APRN [address] [place] [address] DR HEMATOLOGY AND ONCOLOGY [place], [place] [id number] 06/24/2024 2:30 PM EST Office Visit Hematology/Oncology at [address] [phone] Osvaldo Hatch MD [facility] DR HEMATOLOGY [place] [address] Dana Nevarez, ALBERTO [address] [place] [address] DR HEMATOLOGY [place] [address] documented as of this encounter Visit Diagnoses Not on filedocumented in this encounter Care Teams Leather Production Artisan Relationship Specialty Start Date End Date Unknown None PCP - General 06/27/23 documented as of this encounter
--- OUTSIDE RECORDS SUMMARY | 2024-05-28 11:41 | XMS_ITS | Encounter Summary ---
Author Organization [facility] Address [facility] [place] [address] Care Team Providers Care Seismograph Supervisor Name Role Phone Unknown Primary Care Provider Unavailabl e Encounter Details Date Type Department Care Team (Late st Contact Info) Description 03/01/2024 Orders Only Hematology [place] [address] Osvaldo Hatch MD [facility] DR [place] [address] Social History Tobacco Use Types Packs/Day Years Used Date Smoking Tobacco: Every Day Cigarettes Smokeless Tobacco: Never [facility] Utilities Answer Date Recorded In the past [...] 3:00 PM EST Appointment [place] [address] Dana Nevarez [address] [place] [address] 06/24/2024 2:30 PM EST Office Visit Hematology/Oncology at [address] [phone] Osvaldo Hatch MD [facility] DR [place] [address] [address] [place] [address] documented as of this encounter Visit Diagnoses Not on filedocumented in this encounter Care Teams Seismograph Supervisor Relationship Specialty Start Date End Date Unknown None PCP - General 06/27/23 documented as of this encounter
--- OUTSIDE RECORDS SUMMARY | 2024-05-28 11:42 | XMS_ITS | Encounter Summary ---
Author Organization [facility] Address [facility] [place] [address] Care Team Providers Care Computer Systems Analyst Name Role Phone Unknown Primary Care Provider Unavailabl e Encounter Details Date Type Department Care Team (Latest Contact Info) Description 12/26/2023 Travel Social History Tobacco Use Types Packs/Day Years Used Date Smoking Tobacco: Every Day Cigarettes Smokeless Tobacco: Never [facility] Utilities Answer Date Recorded In the past 12 months has th e [employer], gas, oil, or water [employer] threatened to shut off services in your [...] 3:00 PM EST Appointment [place] [address] HEMATOLOGY AND ONCOLOGY [place], [place] [address] 06/24/2024 2:30 PM EST Office Visit Hematology/Oncology at [address] [phone] Osvaldo Hatch MD [facility] DR HEMATOLOGY [place] [address] [address] [place] [address] documented as of this encounter Visit Diagnoses Not on filedocumented in this encounter Care Teams Computer Systems Analyst Relationship Specialty Start Date End Date Unknown None PCP - General 06/27/23 documented as of this encounter
--- OUTSIDE RECORDS SUMMARY | 2024-05-28 11:42 | XMS_ITS | Encounter Summary ---
Author Organization [facility] Address [facility] [place] [address] Care Team Providers Care Process Treater Name Role Phone Unknown Primary Care Provider Unavailabl e Encounter Details Date Type Department Care Team (Latest Contact Info) Description 02/01/2024 Travel Social History Tobacco Use Types Packs/Day Years Used Date Smoking Tobacco: Every Day Cigarettes Smokeless Tobacco: Never [facility] Utilities Answer Date Recorded In the past 12 months has th e [employer], gas, oil, or water [employer] threatened to shut off services in your [...] 3:00 PM EST App[place]ment [place] [address] HEMATOLOGY AND ONCOLOGY [place], [place] [address] 06/24/2024 2:30 PM EST Office Visit Hematology/Oncology at [address] [phone] Osvaldo Hatch MD [facility] DR [place] [address] [address] HEMATOLOGY [place] [address] documented as of this encounter Visit Diagnoses Not on filedocumented in this encounter Care Teams Process Treater Relationship Specialty Start Date End Date Unknown None PCP - General 06/27/23 documented as of this encounter
--- OUTSIDE RECORDS SUMMARY | 2024-05-28 11:42 | XMS_ITS | Encounter Summary ---
Author Organization [facility] Address [facility] [place] [address] Care Team Providers Care Resource Center Teacher Name Role Phone Unknown Primary Care Provider Unavailabl e Encounter Details Date Type Department Care Team (Latest Contact Info) Description 11/01/2023 Travel Social History Tobacco Use Types Packs/Day Years Used Date Smoking Tobacco: Every Day Cigarettes Smokeless Tobacco: Never [facility] Utilities Answer Date Recorded In the past 12 months has th e [employer], gas, oil, or water [employer] threatened to shut off services in your [...] 3:00 PM EST Appointment [place] [address] [address] HEMATOLOGY AND ONCOLOGY [place], [place] [address] 06/24/2024 2:30 PM EST Office Visit Hematology/Oncology at [address] [phone] Osvaldo Hatch MD [facility] DR [place] [address] [address] [place] [address] documented as of this encounter Visit Diagnoses Not on filedocumented in this encounter Care Teams Resource Center Teacher Relationship Specialty Start Date End Date Unknown None PCP - General 06/27/23 documented as of this encounter
--- OUTSIDE RECORDS SUMMARY | 2024-05-28 11:42 | XMS_ITS | Encounter Summary ---
Author Organization [facility] Address [facility] [place] [address] Care Team Providers Care Hospice Coordinator Name Role Phone Unknown Primary Care Provider Unavailabl e Encounter Details Date Type Department Care Team (Latest Contact Info) Description 01/17/2024 Travel Social History Tobacco Use Types Packs/Day Years Used Date Smoking Tobacco: Every Day Cigarettes Smokeless Tobacco: Never [facility] Utilities Answer Date Recorded In the past 12 months has th e [employer], gas, oil, or water [email or web address] threatened to shut off services in your [...] 3:00 PM EST Appointment [place] [address] HEMATOLOGY AND ONCOLOGY [place], [place] [address] 06/24/2024 2:30 PM EST Office Visit Hematology/Oncology at [address] [phone] Osvaldo Hatch MD [facility] DR HEMATOLOGY [place] [address] [address] HEMATOLOGY [place] [address] documented as of this encounter Visit Diagnoses Not on filedocumented in this encounter Care Teams Hospice Coordinator Relationship Specialty Start Date End Date Unknown None PCP - General 06/27/23 documented as of this encounter
--- OUTSIDE RECORDS SUMMARY | 2024-05-28 11:42 | XMS_ITS | Encounter Summary ---
Author Organization [facility] Address [facility] [place] [address] Care Team Providers Care Switchboard Operator Helper Name Role Phone Unknown Primary Care Provider Unavailabl e Reason for Visit * Reason Onset Date Comments Other 12/26/2023 Financial assist ance Encounter Details Date Type Department Care Team (Late st Contact Info) Description 12/26/2023 Telephone Hematology/Oncology at [address] [phone] Michelle Marsh, RN QUALITY OFFICE OF CARE MANAGEMENT Other (Financial assistance) Social History Tobacco Use Types Packs/Day Years Used Date Smoking Tobacco: Every Day Cigarettes Smokeless Tobacco: Never [facility] Utilities Answer Date Recorded In the [...] Miscellaneous Notes * Telephone Encounter - Michelle Masrh MSW - 12/26/2023 9:26 AM EDT TC follow up with sony to remind her need for a letter re rent she now owes so RN QUALITY can complete her application to the [facility]. TC Sony and no answer and unable to leave a message as mailbox is full. Sony has an appointment here next week and will follow up with her then. Care Coordination Financial resources documented in this encounter Plan of Treatment Upcoming Encounters Date Type Department Care Team (Late st Contact Info) Description 06/21/2024 3:00 PM EST [place] [address] Dana Nevarez APRN [address] [place] [address] DR HEMATOLOGY AND ONCOLOGY [place], [place] [id number] 06/24/2024 2:30 PM EST Office Visit Hematology/Oncology at [address] [phone] Osvaldo Hatch MD [facility] DR [place] [address] Dana Nevarez APRN [address] [place] [address] DR [place]EMAT[place]Y [place] [address] documented as of this encounter Visit Diagnoses Not on filedocumented in this encounter Care Teams Switchboard Operator Helper Relationship Specialty Start Date End Date Unknown None PCP - General 06/27/23 documented as of this encounter
--- OUTSIDE RECORDS SUMMARY | 2024-05-28 11:42 | XMS_ITS | Encounter Summary ---
Author Organization [facility] [place] [address] Care Team Providers Care Electrical Mechanic Name Role Phone Unknown Primary Care Provider Unavailabl e Reason for Visit * Reason Onset Date Comments Follow-up 12/28/2023 Nakita called i n at 1645 because she had not heard back about her concerns for dysuria and rib pain. Encounter Details Date Type Department Care Team (Late st Contact Info) Description 12/28/2023 Telephone Hematology Oncology at [address] [phone] Genia Weber, RN Follow-up (Nakita called in at 1645 because she had not heard back about her concerns for dysuria and rib pain. ) Social History Tobacco Use Types Packs/Day Years Used Date Smoking Tobacco: Every Day Cigarettes Smokeless Tobacco: Never [facility] Utilities Answer Date Recorded In the past 12 months has [facility], gas, oil, or water company threatened [...] encounter Miscellaneous Notes * Telephone Encounter - Genia Weber RN - 12/28/2023 5:00 PM EDT Nakita called in at 1645 to discuss her concerns that she reported earlier today. (See note) I stated that there had been an attempt to reach her but there was no answer. I read her the recommendations from Francisco Nevarez APRN. Nakita verbalized that she was willing to try these recommendations. However, she also stated that her stools have been very mucousy for the past 2-3 weeks. She had not experienced anything like this before. She also felt she might be getting a chest infection as she is coughing more and is hoarse. She denies fevers. She says she feels crappy and has done a lot of sleeping. We discussed the option of going to [facility] ED for an evaluation. She had chemotherapy on 12/20/23. She was not in favor of this plan. We discussed discussing with her PCP. She stated she does not have a PCP. I reiterated that the clinic cannot do blood work or a CXR and that if her symptoms worsened especially any fever she would then have to be seen at a local ED. She verbalized that if she worsened she would go but she did not want to. Nakita stated that if she did not feel better by tomorrow she would call again. She was not satisfied with this encounter. Information routed to provider. documented in this encounter Plan of Treatment Upcoming Encounters Date Type Department Care Team (Late st Contact Info) Description 06/21/2024 3:00 PM EST Appointment [place] [address] [address] HEMATOLOGY AND ONCOLOGY [place], [place] [address] 06/24/2024 2:30 PM EST Office Visit Hematology/Oncology at [address] [phone] Osvaldo Hatch MD [facility] DR [place] [address] [address] HEMATOLOGY AND ONCOLOGY [place], [place] [address] documented as of this encounter Visit Diagnoses Not on filedocumented in this encounter Care Teams Electrical Mechanic Relationship Specialty Start Date End Date Unknown None PCP - General 06/27/23 documented as of this encounter
--- OUTSIDE RECORDS SUMMARY | 2024-05-28 11:42 | XMS_ITS | Encounter Summary ---
Author Organization [facility] [place] [address] Care Team Providers Care Water Quality Technician Name Role Phone Unknown Primary Care Provider Unavailabl e Encounter Details Date Type Department Care Team (Late st Contact Info) Description 12/12/2023 Notes Only Hematology/Oncology at [address] [phone] Michelle Marsh, HOT DOG VENDER OFFICE OF CARE MANAGEMENT Social History Tobacco Use Types Packs/Day Years Used Date Smoking Tobacco: Every Day Cigarettes Smokeless Tobacco: Never [facility] Utilities Answer Date Recorded In the past [...] as of this encounter Progress Notes * Michelle Marsh MSW - 12/12/2023 11:07 AM EDT Nakita came in requesting a visit with SIMÓN. Nakita indicated she applied and was approved for [employer] fund of $250/mo for 6 months. She brought in information to apply to the [employer] for help with her rent. Asked that she bring in a letter stating how far behind in rent she is at this time to include in her [employer] application. Nakita will get this additional information. She is also interested in requesting a food gift card to [employer]. SIMÓN will complete and submit her application once she brings in her rent letter. Will continue as a resource for Nakita. Food insecurity resources Financial resources Community Resource documented in this encounter Plan of Treatment Upcoming Encounters Date Type Department Care Team (Late st Contact Info) Description 06/21/2024 3:00 PM EST Appointment [place] [address] Dana Nevarez APRN [address] [place] [address] DR HEMATOLOGY AND ONCOLOGY [place], [place] [id number] 06/24/2024 2:30 PM EST Office Visit Hematology/Oncology at [address] [phone] Osvaldo Hatch MD [facility] DR [place] [address] Dana Nevarez, [address] HEMATOLOGY AND ONCOLOGY [place], [place] [address] documented as of this encounter Visit Diagnoses Not on filedocumented in this encounter Care Teams Water Quality Technician Relationship Specialty Start Date End Date Unknown None PCP - General 06/27/23 documented as of this encounter
--- OUTSIDE RECORDS SUMMARY | 2024-05-28 11:42 | XMS_ITS | Encounter Summary ---
Author Organization [facility] Address [facility] [place] [address] Care Team Providers Care Network Pricing Consultant Name Role Phone Unknown Primary Care Provider Unavailabl e Reason for Visit * Reason Comments Chemotherapy Cycle 3, Day 1 - Pem brolizumab, Carboplatin, Pemetrexed and magnesium replacement. * Treatment/Therapy Plan Authorization (Routine) - Authorized Specialty Diagnoses / Procedures Referred By Contsofiya t Referred To Contact Hematology and Oncology Diagnoses High risk medication use Primary malignant neoplasm of right upper lobe of lung Procedures TC PALONOSETRON HCL, 25MCG, INJECTION (ALOXI) TC APREPITANT, 1 MG, INJECTION TC PEMETREXED, 10MG, INJECTION (ALIMTA) TC CARBOPLATIN, 50MG, INJECTION (PARAPLATIN) [id number] (PEMBROLIZUMAB) Osvaldo Hatch MD [facility] DR HEMATOLOGY [place] [address] Stj Hem Onc Infusion [address] [place] [phone] Referral ID Status Reason Start Date Expiration Date V isits Requested Visits Authorized [id number] Authorized 10/17/2023 10/16/2024 1 101 Encounter Details Date Type Department Care Team (Late st Contact Info) Description 12/20/2023 12:30 PM EDT Infusion Hematology Oncology at [address] [phone] High risk medication use; Primary malignant neoplasm of right upper lobe of lung; Hypomagnesemia Social History Tobacco Use Types Packs/Day Years Used Date Smoking Tobacco: Every Day Cigarettes Smokeless Tobacco: Never [facility] Utilities Answer Date Recorded In the past [...] as of this encounter Progress Notes * Genia Weber RN - 12/20/2023 12:30 PM EDT INFUSION THERAPY ADMINISTRATION NOTES DIAGNOSIS: NSCLC CYCLE #: Cycle 3, Day 1 - Pembrolizumab, Carboplatin, Pemetrexed, Magnesium REASON FOR VISIT: To receive prescribed therapy. SUBJECTIVE: Nakita has had nausea with past cycles. She has home anti-emetics. OBJECTIVE: VSS. Seen by provider. Ready to treat. LAB DATA: WBC - 6.65, H/H - 13.4/40.0, Plt Ct - 267, ANC - 3.77, Lytes wnl, BUN/Cr - 12/0.6, MG++ -1.7 IV ACCESS: PIV. We did discuss a port and she is opposed to having a port placed. Pre administration: Chemotherapy orders independently verified for drug name, route, and dosage per patient's height, weight and BSA by Genia Webre RN and Staff Pharmacist(s). REACTIONS (DESCRIPTION, TIME, INTERVENTION AND EFFECTIVENESS) none ASSESSMENT: Nakita was awake, alert and tolerated treatment well. PIV discontinued prior to dismissal. PLAN: Return to clinic per routine. documented in this encounter Plan of Treatment Upcoming Encounters Date Type Department Care Team (Late st Contact Info) Description 06/21/2024 3:00 PM EST Appointment [place] [address] HEMATOLOGY AND ONCOLOGY [place], [place] [address] 06/24/2024 2:30 PM EST Office Visit Hematology/Oncology at [address] [phone] Osvaldo Hatch MD [facility] DR HEMATOLOGY [place] [address] [address] HEMATOLOGY AND ONCOLOGY [place], [place] [address] documented as of this encounter Visit Diagnoses Diagnosis High risk medication use Encounter for long-term (current) use of other medications Primary malignant neoplasm of right upper lobe of lung Malignant neoplasm of upper lobe, bronchus or lung Hypomagnesemia Disorders of magnesium metabolism documented in this encounter Administered Medications Inactive Administered Medications - up to 3 most recent administrations Medication Order MAR Action Action Date Dose Rate Site aprepitant (CINVANTI) injection Emulsion 130 mg 130 mg, Intravenous, Administer over 2 Minutes, ONCE, 1 dose, On Mon12/20/23 at 1330, Alternative administration of IV push over 2 minutes is a recommendation from the preprint analyst. Administer prior to chemotherapy., Routine Given 12/20/2023 1:32 PM EDT 130 mg CARBOplatin (Paraplatin) 406 mg in dextrose 5% 290.6 mL infusion 406 mg (rounded from 405.6 mg, Target AUC = 4), Intravenous, ONCE, 1 dose, On Mon12/20/23 at 1430, Administer over 30 Minutes, Warning Vesicant/Irritant Medication New Bag 12/20/2023 2:59 PM EDT 406 mg 581.2 mL/hr dexAMETHasone (Decadron) tablet 10 mg 10 mg, Oral, ONCE, 1 dose, On Mon12/20/23 at 1330, Administer prior to chemotherapy, Routine Given 12/20/2023 1:32 PM EDT 10 mg magnesium sulfate 1 g in dextrose 5% 100 mL infusion 1 g, Intravenous, ONCE, 1 dose, On Mon12/20/23 at 1330, Administer over 60 Minutes Restarted 12/20/2023 2:55 PM EDT 100 mL/hr New Bag 12/20/2023 1:42 PM EDT 1 g 100 mL/hr palonosetron (Aloxi) (0.05 mg/mL) injection 0.25 mg 0.25 mg, Intravenous, ONCE, 1 dose, On Mon12/20/23 at 1330, Administer over 30 seconds., Routine Given 12/20/2023 1:33 PM EDT 0.25 mg pembrolizumab (Keytruda) 200 mg in sodium chloride 0.9% 108 mL infusion 200 mg, Intravenous, ONCE, 1 dose, On Mon12/20/23 at 1430, Administer over 30 Minutes, Flush Line with NS after each dose, This agent is restricted to outpatient use. Is this drug being given as an outpatient? Yes New Bag 12/20/2023 2:14 PM EDT 200 mg 216 mL/hr PEMEtrexed disodium (Alimta) 800 mg in sodium chloride 0.9% 132 mL infusion 800 mg (rounded from 810 mg = 500 mg/m2/dose ? 1.62 m2 Treatment Plan BSA from Recorded weight), Intravenous, ONCE, 1 dose, On Mon12/20/23 at 1430, Administer over 10 Minutes New Bag 12/20/2023 3:44 PM EDT 800 mg 792 mL/hr documented in this encounter Care Teams Network Pricing Consultant Relationship Specialty Start Date End Date Unknown None PCP - General 06/27/23 documented as of this encounter
--- OUTSIDE RECORDS SUMMARY | 2024-05-28 11:42 | XMS_ITS | Encounter Summary ---
Author Organization [facility] Address [facility] [place] [address] Care Team Providers Care Shaft Sinker Name Role Phone Unknown Primary Care Provider Unavailabl e Reason for Visit * Reason Comments Chemotherapy * Treatment/Therapy Plan Authorization (Routine) - Authorized Specialty Diagnoses / Procedures Referred By Contac t Referred To Contact Hematology and Oncology Diagnoses High risk medication use Primary malignant neoplasm of right upper lobe of lung Procedures TC PALONOSETRON HCL, 25MCG, INJECTION (ALOXI) TC APREPITANT, 1 MG, INJECTION TC PEMETREXED, 10MG, INJECTION (ALIMTA) TC CARBOPLATIN, 50MG, INJECTION (PARAPLATIN) [id number] (PEMBROLIZUMAB) Osvaldo Hatch MD [facility] DR [place] [address] Stj Hem Onc Infusion [address] [place] [phone] Referral ID Status Reason Start Date Expiration Date V isits Requested Visits Authorized [id number] Authorized 10/17/2023 10/16/2024 1 101 Encounter Details Date Type Department Care Team (Late st Contact Info) Description 11/01/2023 10:30 AM EDT Infusion Hematology Oncology at [address] [phone] High risk medication use; Primary malignant neoplasm of right upper lobe of lung Social History Tobacco Use Types Packs/Day Years Used Date Smoking Tobacco: Every Day Cigarettes Smokeless Tobacco: Never [facility] Utilities Answer Date Recorded In [...] as of this encounter Progress Notes * Dominic Mora, RN - 11/01/2023 10:30 AM EDT Nakita Ashraf Santi, 57 y.o. female with diagnosis of Lung Cancer is here for chemotherapy infusion ofCarbo/Pem/Pem. PROTOCOL: na CYCLE: 1 DAY: 1 S: Pt. offers no complaints at this time. Reviewed plan of care for infusion visit, patient verbalized understanding of plan as outlined. O: Chemotherapy orders independently verified for correct drug name, route and dosage per patient'sheight, weight and BSA by DOMINIC MORA, RN, RN and onsite pharmacist. Chemotherapy administeredper protocol. REACTIONS (DESCRIPTION, TIME, INTERVENTION AND EFFECTIVENESS) none A: Pt. Tolerated treatment with out issue. Nakita Hancock confirms that all questions and issues have been addressed. P: Return to clinic as scheduled. documented in this encounter Plan of Treatment Upcoming Encounters Date Type Department Care Team (Late st Contact Info) Description 06/21/2024 3:00 PM EST Appointment [place] [address] [address] HEMATOLOGY AND ONCOLOGY [place], [place] [address] 06/24/2024 2:30 PM EST Office Visit Hematology/Oncology at [address] [phone] Osvaldo Hatch [facility] [place] [address] [address] HEMATOLOGY [place] [address] documented as of this encounter Visit Diagnoses [...] over 2 Minutes, ONCE, 1 dose, On Mon11/01/23 at 1200, Alternative administration of IV push over 2 minutes is a recommendation from the can dryer. Administer prior to chemotherapy., Routine Given 11/01/2023 12:02 PM EDT 130 mg CARBOplatin (Paraplatin) 340 mg in dextrose 5% 284 mL infusion 340 mg (rounded from 340.4 mg, Target AUC = 4), Intravenous, ONCE, 1 dose, On Mon11/01/23 at 1300, Administer over 30 Minutes, Warning Vesicant/Irritant Medication New Bag 11/01/2023 1:22 PM EDT 340 mg 568 mL/hr cyanocobalamin (Vitamin B-12) (1,000 mcg/mL) injection 1,000 mcg 1,000 mcg, Subcutaneous, ONCE, 1 dose, On Mon11/01/23 at 1200, Administer prior to PEMEtrexed. Recommended dose is 1,000 mcg every 9 weeks. Confirm last date of Vitamin B12 administration., Routine Given 11/01/2023 12:03 PM EDT 1,000 mcg Left Arm dexAMETHasone (Decadron) tablet 10 mg 10 mg, Oral, ONCE, 1 dose, On Mon11/01/23 at 1200, Administer prior to chemotherapy, Routine Given 11/01/2023 12:01 PM EDT 10 mg palonosetron (Aloxi) (0.05 mg/mL) injection 0.25 mg 0.25 mg, Intravenous, ONCE, 1 dose, On Mon11/01/23 at 1200, Administer over 30 seconds., Routine Given 11/01/2023 12:02 PM EDT 0.25 mg pembrolizumab (Keytruda) 200 mg in sodium chloride 0.9% 108 mL infusion 200 mg, Intravenous, ONCE, 1 dose, On Mon11/01/23 at 1300, Administer over 30 Minutes, Flush Line with NS after each dose, This agent is restricted to outpatient use. Is this drug being given as an outpatient? Yes New Bag 11/01/2023 12:31 PM EDT 200 mg 216 mL/hr PEMEtrexed disodium (Alimta) 800 mg in sodium chloride 0.9% 132 mL infusion 800 mg (rounded from 810 mg = 500 mg/m2/dose ? 1.62 m2 Treatment Plan BSA from Recorded weight), Intravenous, ONCE, 1 dose, On Mon11/01/23 at 1300, Administer over 10 Minutes New Bag 11/01/2023 1:08 PM EDT 800 mg 792 mL/hr documented in this encounter Care Teams Shaft Sinker Relationship Specialty Start Date End Date Unknown None PCP - General 06/27/23 documented as of this encounter
--- OUTSIDE RECORDS SUMMARY | 2024-05-28 11:42 | XMS_ITS | Encounter Summary ---
Author Organization [facility] Address [facility] [place] [address] Care Team Providers Care Community Resource Officer Name Role Phone Unknown Primary Care Provider Unavailabl e Encounter Details Date Type Department Care Team (Latest Contact Info) Description 11/27/2023 Travel Social History Tobacco Use Types Packs/Day Years Used Date Smoking Tobacco: Every Day Cigarettes Smokeless Tobacco: Never [facility] Utilities Answer Date Recorded In the past 12 months has th e [employer], gas, oil, or water [employer] threatened to shut off services in your [...] place to sleep or slept in a care home (including now)? Yes 10/16/2023 Sex and Gender Information Value Date Recorded Sex Assigned at Not on file Gender Identity Not on file Sexual Orientation Not on file documented as of this encounter Plan of Treatment Upcoming Encounters Date Type Department Care Team (Late st Contact Info) Description 06/21/2024 3:00 PM EST Appointment [place] [address] HEMATOLOGY AND ONCOLOGY [place], [place] [address] 06/24/2024 2:30 PM EST Office Visit Hematology/Oncology at [address] [phone] Osvaldo Hatch MD [facility] DR HEMATOLOGY [place] [address] [address] [place] [address] documented as of this encounter Visit Diagnoses Not on filedocumented in this encounter Care Teams Community Resource Officer Relationship Specialty Start Date End Date Unknown None PCP - General 06/27/23 documented as of this encounter
--- OUTSIDE RECORDS SUMMARY | 2024-05-28 11:42 | XMS_ITS | Encounter Summary ---
Author Organization [facility] Address [facility] [place] [address] Care Team Providers Care Speed Reading Teacher Name Role Phone Unknown Primary Care Provider Unavailabl e Reason for Visit * Reason Onset Date Comments Other 02/01/2024 Transportation f unds to get to scan tomorrow Encounter Details Date Type Department Care Team ([facility] st Contact Info) Description 02/01/2024 Telephone Hematology/Oncology at [address] [phone] Michelle Marsh, TRENCH DIGGER HELPER OFFICE OF CARE MANAGEMENT Other (Transportation funds to get to scan tomorrow) Social History Tobacco Use Types Packs/Day Years [...] place to sleep or slept in a long term (including now)? Yes 10/16/2023 Sex and Gender Information Value Date Recorded Sex Assigned at Not on file Gender Identity Not on file Sexual Orientation Not on file documented as of this encounter Miscellaneous Notes * Telephone Encounter - Michelle Marsh MSW - 02/01/2024 2:54 PM EDT Request to call Nakita because she does not have gas to get to her scan in [place] tomorrow. TC Nakita and she reports she does not have enough gas in her car to get to her scan in [place] tomorrow and she has no money to purchase any until next week. Nakita indicated she is feeling a bit better and is working some. She does not have any income from the work she is doing yet. Assisted Nakita with a $50 gas card from the [employer] donation to help with her travel tomorrow to [place] to get her scan. Financial resources Transportation resources documented in this encounter Plan of Treatment Upcoming Encounters Date Type Department Care Team (Late st Contact Info) Description 06/21/2024 3:00 PM EST Appointment [place] [address] Dana Nevarez, VENEER GLUE JOINTER FEEDBACK [address] [place] [address] DR [place] [address] 06/24/2024 2:30 PM EST Office Visit Hematology/Oncology at [address] [phone] Osvaldo Htach MD [facility] DR HEMATOLOGY [place] [address] Dana Nevarez APRN [address] [place] [address] DR [place] [address] documented as of this encounter Visit Diagnoses Not on filedocumented in this encounter Care Teams Speed Reading Teacher Relationship Specialty Start Date End Date Unknown None PCP - General 06/27/23 documented as of this encounter
--- OUTSIDE RECORDS SUMMARY | 2024-05-28 11:42 | XMS_ITS | Encounter Summary ---
Author Organization [facility] [place] [address] Care Team Providers Care Jackhammer Splitter Operator Name Role Phone Unknown Primary Care Provider Unavailabl e Reason for Visit * Reason Onset Date Comments Questions 12/28/2023 Encounter Details Date Type Department Care Team (Late st Contact Info) Description 12/28/2023 Telephone Hematology/Oncology at [address] [phone] Maura Ford RN Questions Social History Tobacco Use Types Packs/Day Years Used Date Smoking Tobacco: Every Day Cigarettes Smokeless Tobacco: Never [facility] Utilities Answer Date Recorded In the past [...] Telephone Encounter - Maura Ford RN - 12/28/2023 2:51 PM EDT Reviewed concerns with Dana Nevarez APRN who recommends pt push fluids and can use OTC AZO fordysuria as well (will turn urine orange!) As far as the under rib pain, provider states her mass was large and though it has decreased could be related to that. Called pt back to discuss and no answer, VM full and unable to leave message, * Telephone Encounter - Maura Ford RN - 12/28/2023 12:36 PM EDT Reason for Call: dysuria, right under-rib fullness Brief Health History (Onset, Location, Duration, Characteristics, Aggravating Factors, Relieving Factors/Radiation,Timing, and Severity): Call received from Nakita Hancock. She had Cycle 3 Pembro/Carbo/Alimta on 12/19. Her main complaintis new dysuira starting today. She does endorse her urine is clear yellow, no blood, no odor. She also reports nausea, which she is using Compazine and Zofran alternating. She endorses drinking adequate fluids and is hydrated. She is having regular bowel movements, but notes stools have mucous at times. No blood in BMs. No fevers. She also reports afullness under right rib that has been presentover a month. She states her tumor has shrunk since starting treatment so is surprised she still have this fullness discomfort there. Worsening Symptoms: Emphasized symptoms that require emergent/urgent care according to EPIC protocol utilized or other documented decision support tool. Patient able to teach back worsening symptoms and action to take. Patient/Caregiver demonstrates understanding via teach back: Yes Disposition: will reach out to provider for recommendations and call pt back documented in this encounter Plan of Treatment Upcoming Encounters Date Type Department Care Team (Late st Contact Info) Description 06/21/2024 3:00 PM EST Appointment [place] [address] HEMATOLOGY AND ONCOLOGY [place], [place] [address] 06/24/2024 2:30 PM EST Office Visit Hematology/Oncology at [address] [phone] Osvaldo Hatch MD [facility] DR HEMATOLOGY [place] [address] [address] HEMATOLOGY AND ONCOLOGY [place], [place] [id number] documented as of this encounter Visit Diagnoses Not on filedocumented in this encounter Care Teams Jackhammer Splitter Operator Relationship Specialty Start Date End Date Unknown None PCP - General 06/27/23 documented as of this encounter
--- OUTSIDE RECORDS SUMMARY | 2024-05-28 11:42 | XMS_ITS | Encounter Summary ---
Author Organization [facility] Address [facility] [place] [address] Care Team Providers Care Sde Name Role Phone Unknown Primary Care Provider Unavailabl e Encounter Details Date Type Department Care Team (Latest Contact Info) Description 12/12/2023 Travel Social History Tobacco Use Types Packs/Day Years Used Date Smoking Tobacco: Every Day Cigarettes Smokeless Tobacco: Never [facility] Utilities Answer Date Recorded In the past 12 months has th e [employer], gas, oil, or water [employer] threatened to shut off services in [...] 3:00 PM EST Appointment [place] [address] HEMATOLOGY AND ONCOLOGY [place], [place] [address] 06/24/2024 2:30 PM EST Office Visit Hematology/Oncology at [address] [phone] Osvaldo Hatch MD [facility] DR [place] [address] [address] HEMATOLOGY [place] [address] documented as of this encounter Visit Diagnoses Not on filedocumented in this encounter Care Teams Sde Relationship Specialty Start Date End Date Unknown None PCP - General 06/27/23 documented as of this encounter
--- OUTSIDE RECORDS SUMMARY | 2024-05-28 11:42 | XMS_ITS | Encounter Summary ---
Author Organization [facility] Address [facility] [place] [address] Care Team Providers Care Director Emergency Services Name Role Phone Unknown Primary Care Provider [...] INJECTION (ALIMTA) TC CARBOPLATIN, 50MG, INJECTION (PARAPLATIN) [id number] (PEMBROLIZUMAB) Osvaldo Hatch MD [facility] DR HEMATOLOGY [place] [address] Stj Hem Onc Infusion [address] [place] [phone] Referral ID Status Reason Start Date Expiration Date V isits Requested Visits Authorized [id number] Authorized 10/17/2023 10/16/2024 1 101 Encounter Details Date Type Department Care Team (Late st Contact Info) Description 01/17/2024 10:30 AM EDT Infusion Hematology Oncology at [address] [phone] High risk medication use; Primary malignant neoplasm of right upper lobe of lung Social History Tobacco Use Types Packs/Day Years Used Date Smoking Tobacco: Every Day Cigarettes Smokeless Tobacco: Never [facility] Utilities Answer Date Recorded In the [...] place to sleep or slept in a snf (including now)? Yes 10/16/2023 Sex and Gender Information Value Date Recorded Sex Assigned at Not on file Gender Identity Not on file Sexual Orientation Not on file documented as of this encounter Progress Notes * Susan Rodgers RN - 01/17/2024 10:30 AM EDT INFUSION THERAPY ADMINISTRATION NOTES DIAGNOSIS: NSCLC CYCLE #: Cycle 4, Day 1 - Pembrolizumab, Carboplatin, Pemetrexed, B12 injection REASON FOR VISIT: To receive prescribed therapy. SUBJECTIVE: Nakita offers no complaints. Seen by provider. Ready to treat. OBJECTIVE: VSS. LAB DATA: completed today at [facility] IV ACCESS: PIV. Pre administration: Chemotherapy orders independently verified for drug name, route, and dosage per patient's height, weight and BSA by Susan Rodgers, MELQUIADES and Staff Pharmacist(s). REACTIONS (DESCRIPTION, TIME, INTERVENTION AND EFFECTIVENESS) none ASSESSMENT: Nakita was awake, alert and tolerated treatment well. PIV discontinued prior to dismissal. PLAN: Return to clinic per routine. documented in this encounter Plan of Treatment Upcoming Encounters Date Type Department Care Team (Late st Contact Info) Description 06/21/2024 3:00 PM EST Appointment [place] [address] HEMATOLOGY AND ONCOLOGY [place], [place] [address] 06/24/2024 2:30 PM EST Office Visit Hematology/Oncology at [address] [phone] Osvaldo Hatch [facility] DR HEMATOLOGY [place] [address] [address] [place] [address] documented as of this encounter Visit Diagnoses Diagnosis High risk medication use Encounter for long-term (current) use of other medications Primary malignant neoplasm of right upper lobe of lung Malignant neoplasm of upper lobe, bronchus or lung documented in this encounter Administered Medications Inactive Administered Medications - up to 3 most recent administrations Medication Order MAR Action Action Date Dose Rate Site aprepitant (Cinvanti) (7.2 mg/mL) injection emulsion 130 mg 130 mg, Intravenous, Administer over 2 Minutes, ONCE, 1 dose, On Mon01/17/24 at 1145, Alternative administration of IV push over 2 minutes is a recommendation from the staff services manager. Administer prior to chemotherapy., Routine Given 01/17/2024 11:49 AM EDT 130 mg CARBOplatin (Paraplatin) 314 mg in dextrose 5% 281.4 mL infusion 314 mg (Target AUC = 4), Intravenous, ONCE, 1 dose, On Mon01/17/24 at 1245, Administer over 30 Minutes, Warning Vesicant/Irritant Medication New Bag 01/17/2024 1:04 PM EDT 314 mg 562.8 mL/hr cyanocobalamin (Vitamin B-12) (1,000 mcg/mL) injection 1,000 mcg 1,000 mcg, Subcutaneous, ONCE, 1 dose, On Mon01/17/24 at 1145, Administer prior to PEMEtrexed. Recommended dose is 1,000 mcg every 9 weeks. Confirm last date of Vitamin B12 administration., Routine Given 01/17/2024 11:52 AM EDT 1,000 mcg Right Arm dexAMETHasone (Decadron) tablet 10 mg 10 mg, Oral, ONCE, 1 dose, On Mon01/17/24 at 1145, Administer prior to chemotherapy, Routine Given 01/17/2024 11:41 AM EDT 10 mg palonosetron (Aloxi) (0.05 mg/mL) injection 0.25 mg 0.25 mg, Intravenous, ONCE, 1 dose, On Mon01/17/24 at 1145, Administer over 30 seconds., Routine Given 01/17/2024 11:46 AM EDT 0.25 mg pembrolizumab (Keytruda) 200 mg in sodium chloride 0.9% 108 mL infusion 200 mg, Intravenous, ONCE, 1 dose, On Mon01/17/24 at 1245, Administer over 30 Minutes, Flush Line with NS after each dose, This agent is restricted to outpatient use. Is this drug being given as an outpatient? Yes New Bag 01/17/2024 12:08 PM EDT 200 mg 216 mL/hr PEMEtrexed disodium (Alimta) 800 mg in sodium chloride 0.9% 132 mL infusion 800 mg (rounded from 810 mg = 500 mg/m2/dose ? 1.62 m2 Treatment Plan BSA from Recorded weight), Intravenous, ONCE, 1 dose, On Mon01/17/24 at 1245, Administer over 10 Minutes New Bag 01/17/2024 12:48 PM EDT 800 mg 792 mL/hr documented in this encounter Care Teams Director Emergency Services Relationship Specialty Start Date End Date Unknown None PCP - General 06/27/23 documented as of this encounter
--- OUTSIDE RECORDS SUMMARY | 2024-05-28 11:42 | XMS_ITS | Encounter Summary ---
Author Organization [facility] Address [facility] [place] [address] Care Team Providers Care Spindle Sander Name Role Phone Unknown Primary Care Provider Unavailabl e Encounter Details Date Type Department Care Team (Late st Contact Info) Description 01/25/2024 Orders Only Hematology [place] [address] Osvaldo Hatch MD [facility] DR HEMATOLOGY [place] [address] Social History Tobacco Use Types Packs/Day Years Used Date Smoking Tobacco: Every Day Cigarettes Smokeless Tobacco: Never [facility] Utilities Answer Date Recorded In the [...] 3:00 PM EST Appointment [place] [address] [address] HEMATOLOGY [place] [address] 06/24/2024 2:30 PM EST Office Visit Hematology/Oncology at [address] [phone] Osvaldo Hatch MD [facility] DR HEMATOLOGY [place] [address] [address] HEMATOLOGY [place] [address] documented as of this encounter Visit Diagnoses Not on filedocumented in this encounter Care Teams Spindle Sander Relationship Specialty Start Date End Date Unknown None PCP - General 06/27/23 documented as of this encounter
--- OUTSIDE RECORDS SUMMARY | 2024-05-28 11:42 | XMS_ITS | Encounter Summary ---
Author Organization [facility] [place] [address] Care Team Providers Care Desktop Support Engineer Name Role Phone Unknown Primary Care Provider Unavailabl e Reason for Visit * Reason Onset Date Comments Prior Authorization 2023 Encounter Details Date Type Department Care Team (Late st Contact Info) Description 2023 Telephone Hematology/Oncology at [address] [phone] Maura Ford RN Prior Authorization Social History Tobacco Use Types Packs/Day Years Used Date Smoking Tobacco: Every Day Cigarettes Smokeless Tobacco: Never [facility] Utilities Answer Date Recorded In the past [...] Telephone Encounter - Maura Ford RN - 2023 2:33 PM EDT Reviewed with provider. JOSE submitted for Combivent inhaler. Pt update and made aware it can take upto 3 days for determination. ----- Message from Brenda Rosa sent at 2023 8:05 AM EDT ----- Carlitos Mace called and said that she can not moss picker the respimat inhaler until 12/17/23, she said she can not wait that long as she is not taking prednisone. The pharmacy said that Dr. Hatch will need to contact the insurance company. Please call her at [phone] Thank you Brenda documented in this encounter Plan of Treatment Upcoming Encounters Date Type Department Care Team (Late st Contact Info) Description 06/21/2024 3:00 PM EST Appointment [place] [address] Dana Nevarez APRN [address] [place] [address] DR HEMATOLOGY AND ONCOLOGY [place], [place] [id number] 06/24/2024 2:30 PM EST Office Visit Hematology/Oncology at [address] [phone] Osvaldo Hatch MD [facility] DR [place] [address] Dana Nevarez APRN [address] [place] [address] [place] [address] documented as of this encounter Visit Diagnoses Not on filedocumented in this encounter Care Teams Desktop Support Engineer Relationship Specialty Start Date End Date Unknown None PCP - General 06/27/23 documented as of this encounter
--- OUTSIDE RECORDS SUMMARY | 2024-05-28 11:42 | XMS_ITS | Encounter Summary ---
Author Organization [facility] [place] [address] Care Team Providers Care Cableway Operator Name Role Phone Unknown Primary Care Provider Unavailabl e Encounter Details Date Type Department Care Team (Late st Contact Info) Description 11/01/2023 Notes Only Hematology/Oncology at [address] [phone] Michelle Marsh, ENTRY LEVEL PROJECT COORDINATOR OFFICE OF CARE MANAGEMENT Social History Tobacco Use Types Packs/Day Years Used Date Smoking Tobacco: Every Day Cigarettes Smokeless Tobacco: Never [facility] Utilities Answer Date Recorded In the past [...] of this encounter Progress Notes * Michelle Marsh, ENTRY LEVEL PROJECT COORDINATOR - 11/01/2023 12:19 PM EDT Follow up with Sony during her first infusion visit today. Discussed the following - Financial distress: Sony indicated she has only been able to work 4 days in the last month. She has outstanding bills for apt rent. Shop rent, electricity, ect. She did not bring in any bills withher today so unable to apply to any funds. She will email ENTRY LEVEL PROJECT COORDINATOR some of her bills. ENTRY LEVEL PROJECT COORDINATOR will [facility] for a $350/one time per year help towards her apartment rent. Will consider the [facility] as another resource once her bills come in. Gave her the contact information to apply to the [employer] for a monthly stipend of $250/month for 6 months. Sony indicated she can call or email this fund. Food security: Sony indicated she gets $450/mo in food assistance and she does go to the ;local food pantries. Transportation.: Sony indicated her car is in working order right now through it does have some issues. Encouraged her to let ENTRY LEVEL PROJECT COORDINATOR know if her car breaks down and she has need to help with rides. She does have Medicaid and may be eligible for a vehicle exception waiver if this happens. Coping: sony is anxious to get her treatments started. She is hopeful she will respond to it. Inquired about he young daughter and Sony indicated she is having a hard time with her mother beingill. Her daughter is between school so she does not have any supports through school or in the community at this time. Sony did have a counselor some time ago but is not interested in reconnecting. Offered support. ENTRY LEVEL PROJECT COORDINATOR will begin to apply to some cancer funds once Sony brings/sends in some bills. Will be a resource for her for support and resources. Brief assessment Supportive Counseling Financial resources documented in this encounter Plan of Treatment Upcoming Encounters Date Type Department Care Team (Late st Contact Info) Description 06/21/2024 3:00 PM EST Appointment [place] [address] HEMATOLOGY AND ONCOLOGY [place], [place] [address] 06/24/2024 2:30 PM EST Office Visit Hematology/Oncology at [address] [phone] [facility] DR HEMATOLOGY [place] [address] HEMATOLOGY AND ONCOLOGY [place], [place] [address] documented as of this encounter Visit Diagnoses Not on filedocumented in this encounter Care Teams Cableway Operator Relationship Specialty Start Date End Date Unknown None PCP - General 06/27/23 documented as of this encounter
--- OUTSIDE RECORDS SUMMARY | 2024-05-28 11:42 | XMS_ITS | Encounter Summary ---
[place] [address] Care Team Providers Care Deputy Commonwealth'S Attorney Name Role Phone Unknown Primary Care Provider Unavailabl e Reason for Referral * Diagnostic Test (Routine) - Closed Specialty Diagnoses / Procedures Referred By Contac t Referred To Contact Radiology Diagnoses Primary malignant neoplasm of right upper lobe of lung Procedures NM Powell PET CT Skull Base to Mid-thigh Dana Nevarez APRN [address] [place] [address] [place] [address] [place] [address] Referral ID Status Reason Start Date Expiration Date V isits Requested Visits Authorized [id number] Closed Specialty Service Requested 01/17/2024 07/19/2025 1 1 Encounter Details Date Type Department Care Team (Late st Contact Info) Description 01/17/2024 10:00 AM EDT Office Visit Hematology/Oncology at [address] [phone] Dana Nevarez APRN [address] [place] [address] DR HEMATOLOGY AND ONCOLOGY [place], [place] [phone] Primary malignant neoplasm of right upper lobe of lung Social History Tobacco Use Types Packs/Day Years Used Date Smoking Tobacco: Every Day Cigarettes Smokeless Tobacco: Never [facility] Utilities Answer Date Recorded In the past [...] Sign Reading Time Taken Comments Blood Pressure 124/74 01/17/2024 10:41 AM EDT Pulse 101 01/17/2024 10:41 AM EDT Temperature 36.6 ??C (97.8 ??F) 01/17/2024 1 0:41 AM EDT Respiratory Rate 16 01/17/2024 10:4 1 AM EDT Oxygen Saturation 97% 01/17/2024 10: 41 AM EDT Inhaled Oxygen Concentration - - Weight 54.8 kg (120 lb 12.8 oz) 024 10:41 AM EDT Height 166.1 cm (5' 5.39) 01/17/2024 1 0:41 AM EDT Body Mass Index 19.86 01/17/2024 10:41 AM EDT documented in this encounter Progress Notes * MaraDana alas, CROZE CUTTER HELPER - 01/17/2024 10:00 AM EDT Images from the original note were not included[place] [address] [phone] Nakita Hancock is being seen for the [...] metastasis. Began palliative intent carboplatin/pemetrexed/pembrolizumab on 10/31/23. Plan: CT scan after 2 cycles shows excellent response. Mass remains centrally located which helps explains her continued respiratory symptoms, though they continue to improve - Labs and toxicities assessed and acceptable for ongoing treatment. - RTC in 3 weeks with a PET prior, will consider transitioning to maintenance pem/pem at that time - Engaging social work, engaging RD. Dana Nevarez, CROZE CUTTER HELPER 01/17/2024 Medical Oncology & Hematology [facility] CC: HPI/Interval History/Subjective: Last seen 12/20/2023 Sick a lot this month, had a cold, generalized achiness, felt a bit unsteady at times. Doesn't really feel like she recovered from the previous cycle. Does have a lot of nausea, doesn't feel like the antiemetics are helpful all the time. No vomiting.Weight is stable. No diarrhea. No rashes. No fevers. Breathing well, can wear a bra without discomfort and feeling less pressure in her RUQ so she is feeling hopeful about this. Definitely feels like her airway is more open. Started advair and combivent which does help a little, still off prednisone. Joints are bothering her but liveable, she occasionally takes aleve, schedules this around her pemetrexed. No baseline hearing loss. Still smoking about 1/2 ppd Anxiety is better as her breathing jareth improved. No need lorazepam. Social History/Support Network: Home situation: Single parent. 15 year old daughter- Oliva. Originally from [place]. 25 year old son Annette is her emergency contact. Employment: [employer] Tobacco use: 1 pack/day smoking history for [...] (Medical): Yes Lack of Transportation (Non-Medical): Yes Housing Stability: High Risk (10/16/2023) Housing Stability Vital Sign Unable to Pay for Housing in the Last Year: Yes Number of Places Lived in the Last Year: 2 Unstable Housing in the Last Year: Yes Intimate Partner Violence: Not on file Utilities: At Risk (10/16/2023) [facility] Utilities Threatened with loss of utilities: [...] Screen shot from Dr. Rosario's records at [facility] In progress Presentation: Nakita Hancock is [...] time she met with thoracic surgery at [facility]. For evaluation with staging EBUS was planned. She did not come to the visit. She was also referred to medical oncology at that time but did not come. Multiple telephone calls were made and letters sent in hopes that she might reschedule. She ultimately connected with [facility] pulmonary medical oncology and underwent additional [...] favoring a benign etiology. 02.08.23 PET scan ([facility]) 1. The large primary mass in [...] metastasis. No evidence of abdominopelvic jewels disease. 8 Bronchoscopy EBUS-TBNA 04/14/23 MRI Abdomen IMPRESSION Mild [...] represent metastatic disease and the plan at [facility] was for systemic therapy followed by [...] Data: NA Treatment Course: 11.01.23 C1 Carbo/pem/pem 11.27.23 C2 Carbo/pem/pem 12.13.23 CT Chest 12/20/23 C3 carbo/pem/pem 11/01/2023 1:22 PM 11/27/2023 11:01 AM 11/27/2023 11:51 AM 11/27/2023 12:24 PM 12/20/2023 2:14 PM 12/20/2023 2:59 PM 12/20/2023 3:44 PM ONCBCN ONCOLOGY (AMB) Day, Cycle Day 1, Cycle 2 Day 1, Cycle 3 CARBOplatin (Paraplatin) IV 340 mg 409 mg 406 mg pembrolizumab 25 mg/mL (Keytruda) IV 200 mg [...] 101 12/20/23 (!) 108 11/27/23 (!) 107 Body surface area is 1.59 meters squared. Wt Readings from Last 3 Encounters: 01/17/24 [...] Judgment: Judgment normal. Review of Laboratory Data: 01/17/24 WBC 7.07, H/H 13.6/40.9, plt 367,000, [...] 3:00 PM EST Appointment [place] [address] HEMATOLOGY AND ONCOLOGY [place], [place] [phone] 06/24/2024 2:30 PM EST Office Visit Hematology/Oncology at [address] [phone] Osvaldo Hatch MD [facility] DR [place]AT[place] [address] Dana Nevarez APRN [address] [place] [address] DR HEMATOLOGY AND ONCOLOGY [place], [place] [address] documented as of this encounter Results * NM Powell PET CT Skull Base to Mid-thigh (02/23/2024 10:30 AM EDT) WORKSTATION ID [id number] DH RAD Anatomical Region Laterality Modality Positron Emissio [...] who have questions please contact the health rn intensive care unit that requested your imaging first. ? Electronically signed by: Heath Amos MD, 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 Electronically signed by: Heath Amos MD, [facility]([phone]), at 02/26/2024 11:13 AM Dana Nevarez APRN IMG PET ORDERABL ES documented in this encounter Visit Diagnoses Diagnosis Primary malignant neoplasm of right upper lobe of lung Malignant neoplasm of upper lobe, bronchus or lung Primary malignant neoplasm of right upper lobe of lung Malignant neoplasm of upper lobe, bronchus or lung documented in this encounter Care Teams Deputy Commonwealth'S Attorney Relationship Specialty Start Date End Date Unknown None PCP - General 06/27/23 documented as of this encounter
--- OUTSIDE RECORDS SUMMARY | 2024-05-28 11:42 | XMS_ITS | Encounter Summary ---
Author Organization [facility] Address [facility] [place] [address] Care Team Providers Care Card Fixer Name Role Phone Unknown Primary Care Provider Unavailabl e Encounter Details Date Type Department Care Team (Late st Contact Info) Description 12/12/2023 Orders Only Hematology [place] [address] Osvaldo Hatch MD [facility] DR [place]Y [place] [address] Primary malignant neoplasm of right upper lobe of lung Social History Tobacco Use Types Packs/Day Years Used Date Smoking Tobacco: Every Day Cigarettes Smokeless Tobacco: Never [facility] Utilities Answer Date Recorded In the [...] 3:00 PM EST Appointment [place] [address] HEMATOLOGY AND ONCOLOGY [place], [place] [address] 06/24/2024 2:30 PM EST Office Visit Hematology/Oncology at [address] [phone] Osvaldo Hatch MD [facility] DR [place]EMAT[place]Y [place] [address] [address] HEMATOLOGY [place] [address] documented as of this encounter Visit Diagnoses Diagnosis Primary malignant neoplasm of right upper lobe of lung Malignant neoplasm of upper lobe, bronchus or lung documented in this encounter Care Teams Card Fixer Relationship Specialty Start Date End Date Unknown None PCP - General 06/27/23 documented as of this encounter
--- OUTSIDE RECORDS SUMMARY | 2024-05-28 11:42 | XMS_ITS | Encounter Summary ---
Author Organization [facility] [place] [address] Care Team Providers Care Patient Account Representative Name Role Phone Unknown Primary Care Provider Unavailabl e Encounter Details Date Type Department Care Team (Late st Contact Info) Description 2023 5:50 PM EDT Ancillary Procedure Radiology Library at [facility] [place] [phone] Osvaldo Hatch MD [facility] HEMATOLOGY [place] [address] Social History Tobacco Use Types Packs/Day Years [...] 3:00 PM EST Appointment [place] [address] HEMATOLOGY AND ONCOLOGY [place], [place] [address] 06/24/2024 2:30 PM EST Office Visit Hematology/Oncology at [address] [phone] Osvaldo Hatch MD [facility] DR HEMATOLOGY [place] [address] [address] HEMATOLOGY AND ONCOLOGY [place], [place] [address] documented as of this encounter Procedures Procedure Name Priority Date/Time Associated Diagnosis Comments FILM LIBRARY STORAGE ONLY CT CHEST Routine 2023 5:47 PM EDT documented in this encounter Results * Film Library- Storage Only CT Chest (2023 5:47 PM EDT) Narrative DH RAD - 2023 5:47 PM EDT This exam is auto-finalizing. It's purpose is for storage only. Osvaldo Hatch MD IMG FILM LIBRARY ORD ERABLES Performing Organization Address City/State/[facility] Co de Phone Number [place], [place] documented in this encounter Visit Diagnoses Not on filedocumented in this encounter Care Teams Patient Account Representative Relationship Specialty Start Date End Date Unknown None PCP - General 06/27/23 documented as of this encounter
--- OUTSIDE RECORDS SUMMARY | 2024-05-28 11:42 | XMS_ITS | Encounter Summary ---
Author Organization [facility] [place] [address] Care Team Providers Care Commercial Door Installer Name Role Phone Unknown Primary Care Provider Unavailabl e Reason for Visit * Reason Onset Date Comments Questions 11/03/2023 Encounter Details Date Type Department Care Team (Late st Contact Info) Description 11/03/2023 Telephone Hematology/Oncology at [address] [phone] Maura Ford RN Questions Social History Tobacco Use Types Packs/Day Years Used Date Smoking Tobacco: Every Day Cigarettes Smokeless Tobacco: Never [facility] Utilities Answer Date Recorded In the past [...] Telephone Encounter - Maura Ford RN - 11/03/2023 2:00 PM EDT Pt calling to report she has been coughing hard and coughed up phlegm with blood spot noted, somewhat larger than a pinpoint. She is asking if this is normal. Advised with hard coughing the strain could have produced the blood-tinged sputum but she is to keep a close eye on that. If it continues orshe had any sxs of bleeding elsewhere she is advised to present to ED for evaluation. She also has questions about her bone marrow and what foods she could eat to help her counts recover. Advised time if the biggest proponent for blood count recovery. She would like RD to reach out toher. She asked about what to do to prevent infections. Neutropenic precautions teaching performed and included; Frequent hand washing with soap and water Avoid crowds and sick people Avoid fresh hernandez, live plants, or standing water No raw foods, and cook veggies thoroughly Have someone else clean up after pets Call healthcare provider if fever 100.4F or greater, fever, chills, sore throat, new pain or swelling, dysuria, diarrhea, increased fatigue or confusion. She notes her OROURKE from yesterday is better although she remains sensitive to light. She is advised to call with any further concerns or questions. documented in this encounter Plan of Treatment Upcoming Encounters Date Type Department Care Team (Late st Contact Info) Description 06/21/2024 3:00 PM EST Appointment [place] [address] HEMATOLOGY AND ONCOLOGY [place], [place] [address] 06/24/2024 2:30 PM EST Office Visit Hematology/Oncology at [address] [phone] Osvaldo Hatch MD [facility] DR HEMATOLOGY [place] [address] [address] HEMATOLOGY AND ONCOLOGY [place], [place] [address] documented as of this encounter Visit Diagnoses Not on filedocumented in this encounter Care Teams Commercial Door Installer Relationship Specialty Start Date End Date Unknown None PCP - General 06/27/23 documented as of this encounter
--- OUTSIDE RECORDS SUMMARY | 2024-05-28 11:42 | XMS_ITS | Encounter Summary ---
Author Organization [facility] [place] [address] Care Team Providers Care Assembler Radio And Electrical Name Role Phone Unknown Primary Care Provider Unavailabl e Encounter Details Date Type Department Care Team (Late st Contact Info) Description 11/28/2023 Notes Only Hematology/Oncology at [address] [phone] Michelle Marsh, PAPIER [facility] OFFICE OF CARE MANAGEMENT Social History Tobacco Use Types Packs/Day Years Used Date Smoking Tobacco: Every Day Cigarettes Smokeless Tobacco: Never [facility] Utilities Answer Date Recorded In the past [...] of this encounter Progress Notes * Michelle Mrash MSW - 11/28/2023 9:04 AM EDT Met with Nakita this morning as she brought in a copy of her rent agreement. SIMÓN completed and application per Nakita's request to the [facility] [place] asking for $350 toward her portion of her rent of $395a month. Reminded Nakita to connect with the [facility] [employer] as soon as she can so her application canbe reviewed when the board meets the end of each month. Nakita indicated she will follow through with this. Financial resources Community Resource Add: Informed the [facility] [place] assisted Nakita already this past August. The fund can be accessed once a year. Gave her information about the [facility] and Nakita will consider. Informed her of the information she needs to supply and that it is generally a 5 week turn around time for a decision documented in this encounter Plan of Treatment Upcoming Encounters Date Type Department Care Team (Late st Contact Info) Description 06/21/2024 3:00 PM EST Appointment [place] [address] [address] [place] [address] 06/24/2024 2:30 PM EST Office Visit Hematology/Oncology at [address] [phone] Osvaldo Hatch MD [facility] DR [place] [address] Dana Nevarez APRN [address] [place] [address] [place] [address] documented as of this encounter Visit Diagnoses Not on filedocumented in this encounter Care Teams Assembler Radio And Electrical Relationship Specialty Start Date End Date Unknown None PCP - General 06/27/23 documented as of this encounter
--- OUTSIDE RECORDS SUMMARY | 2024-05-28 11:42 | XMS_ITS | Encounter Summary ---
Author Organization [facility] Address [facility] [place] [address] Care Team Providers Care Patent Leather Sorter Name Role Phone Unknown Primary Care Provider Unavailabl e Reason for Visit * Reason Onset Date Comments Follow-up 11/10/2023 Re tramadol Encounter Details Date Type Department Care Team (Late st Contact Info) Description 11/10/2023 Telephone Hematology/Oncology at [address] [phone] Maura Ford, RN Follow-up (Re tramadol ) Social History Tobacco Use Types Packs/Day Years Used Date Smoking Tobacco: Every Day Cigarettes Smokeless Tobacco: Never [facility] Utilities Answer Date Recorded In the [...] Telephone Encounter - Maura Ford RN - 11/10/2023 8:54 AM EDT Called and spoke with Nakita Andriy Hancock. She said her tramadol is helping with pain. She reports nowshe feels her inhalers are not working as well, more shortness of breath. She denies any chest pain. She does smoke 4-5 rolled cigarettes daily. Feels it could be the changing of season/allergy related. She is 9 days out from first chemotherapy. She started feeling better after day 6. Advised to reach out to pattern carrier that prescribes inhalers to discuss less effectiveness. She is in agreement. ---- Message from Simin Jung RN sent at 11/06/2023 5:07 PM EDT ---- Regarding: Call pt Please call Nakita (if she hasn't called already) and see if the tramadol is helping with her pain. See my note from Monday. Thanks Simin documented in this encounter Plan of Treatment Upcoming Encounters Date Type Department Care Team (Late st Contact Info) Description 06/21/2024 3:00 PM EST Appointment [place] [address] Dana Nevarez, ALBERTO [address] [place] [address] DR HEMATOLOGY [place] ONCOLOGY [place], [place] [address] 06/24/2024 2:30 PM EST Office Visit Hematology/Oncology at [address] [phone] Osvaldo Hatch MD [facility] DR [place] [address] Dana Nevarez APRN [address] [place] [address] DR HEMATOLOGY AND ONCOLOGY [place], [place] [phone] documented as of this encounter Visit Diagnoses Not on filedocumented in this encounter Care Teams Patent Leather Sorter Relationship Specialty Start Date End Date Unknown None PCP - General 06/27/23 documented as of this encounter
--- OUTSIDE RECORDS SUMMARY | 2024-05-28 11:42 | XMS_ITS | Encounter Summary ---
Author Organization [facility] [place] [address] Care Team Providers Care Director Of Pupil Personnel Program Name Role Phone Unknown Primary Care Provider Unavailabl e Encounter Details Date Type Department Care Team (Late st Contact Info) Description 11/28/2023 Orders Only Hematology/Oncology at [address] [phone] Osvaldo Hatch MD [facility] DR [place] [address] Social History Tobacco Use Types Packs/Day Years Used Date Smoking Tobacco: Every Day Cigarettes Smokeless Tobacco: Never [facility] Utilities Answer Date Recorded In [...] 3:00 PM EST Appointment [place] [address] [address] HEMATOLOGY AND ONCOLOGY [place], [place] [address] 06/24/2024 2:30 PM EST Office Visit Hematology/Oncology at [address] [phone] Osvaldo Hatch MD [facility] DR [place] [address] [address] [place] [address] documented as of this encounter Visit Diagnoses Not on filedocumented in this encounter Care Teams Director Of Pupil Personnel Program Relationship Specialty Start Date End Date Unknown None PCP - General 06/27/23 documented as of this encounter
--- OUTSIDE RECORDS SUMMARY | 2024-05-28 11:42 | XMS_ITS | Encounter Summary ---
[facility] Organization [facility] Address [facility] [place] [address] Care Team Providers Care Paint Stockman Name Role Phone Unknown Primary Care Provider [...] INJECTION (ALIMTA) TC CARBOPLATIN, 50MG, INJECTION (PARAPLATIN) [id number] (PEMBROLIZUMAB) Osvaldo Hatch MD [facility] DR HEMATOLOGY [place] [address] Stj Hem Onc Infusion [address] [place] [phone] Referral ID Status Reason Start Date Expiration Date V isits Requested Visits Authorized [id number] Authorized 10/17/2023 10/16/2024 1 101 Encounter Details Date Type Department Care Team (Late st Contact Info) Description 11/27/2023 9:30 AM EDT Infusion Hematology Oncology at [address] [phone] High risk medication use; Primary malignant neoplasm of right upper lobe of lung Social History Tobacco Use Types Packs/Day Years Used Date Smoking Tobacco: Every Day Cigarettes Smokeless Tobacco: Never [facility] Utilities Answer Date Recorded In the [...] Progress Notes * Susan Rodgers RN - 11/27/2023 9:30 AM EDT Nakita Ashraf Santi, 57 y.o. female with diagnosis of Lung Cancer is here for chemotherapy infusion ofCarbo/Pem/Pem. PROTOCOL: na CYCLE: 2 DAY: 1 S: Pt. offers no complaints at this time, she met with Dr. Hatch prior to infusion, ready for treatment. Reviewed plan of care for infusion visit, patient verbalized understanding of plan as outlined. O: Chemotherapy orders independently verified for correct drug name, route and dosage per patient'sheight, weight and BSA by Susan Rodgers, RN, RN and onsite pharmacist. Chemotherapy administered per protocol. REACTIONS (DESCRIPTION, TIME, INTERVENTION AND EFFECTIVENESS) none A: Pt. Tolerated treatment with out issue. Nakita Hancock confirms that all questions and issues have been addressed. P: Return to clinic as scheduled. documented in this encounter Plan of Treatment Upcoming Encounters Date Type Department Care Team (Late st Contact Info) Description 06/21/2024 3:00 PM EST Appointment [place] [address] HEMATOLOGY AND ONCOLOGY [place], [place] [address] 06/24/2024 2:30 PM EST Office Visit Hematology/Oncology at [address] [phone] Osvaldo Hatch MD [facility] DR HEMATOLOGY [place] [address] [address] HEMATOLOGY AND ONCOLOGY [place], [place] [id number] documented as of this encounter Visit Diagnoses [...] over 2 Minutes, ONCE, 1 dose, On Mon11/27/23 at 1030, Alternative administration of IV push over 2 minutes is a recommendation from the chief station engineer. Administer prior to chemotherapy., Routine Given 11/27/2023 10:39 AM EDT 130 mg CARBOplatin (Paraplatin) 409 mg in dextrose 5% 290.9 mL infusion 409 mg (rounded from 409.2 mg, Target AUC = 4), Intravenous, ONCE, 1 dose, On Mon11/27/23 at 1130, Administer over 30 Minutes, Warning Vesicant/Irritant Medication New Bag 11/27/2023 12:24 PM EDT 409 mg 581.8 mL/hr dexAMETHasone (Decadron) tablet 10 mg 10 mg, Oral, ONCE, 1 dose, On Mon11/27/23 at 1030, Administer prior to chemotherapy, Routine Given 11/27/2023 10:39 AM EDT 10 mg magnesium sulfate 1 g in dextrose 5% 100 mL infusion 1 g, Intravenous, ONCE, 1 dose, On Mon11/27/23 at 1045, Administer over 60 Minutes Restarted 11/27/2023 12:20 PM EDT 100 mL/hr New Bag 11/27/2023 10:41 AM EDT 1 g 100 mL/hr palonosetron (Aloxi) (0.05 mg/mL) injection 0.25 mg 0.25 mg, Intravenous, ONCE, 1 dose, On Mon11/27/23 at 1030, Administer over 30 seconds., Routine Given 11/27/2023 10:39 AM EDT 0.25 mg pembrolizumab (Keytruda) 200 mg in sodium chloride 0.9% 108 mL infusion 200 mg, Intravenous, ONCE, 1 dose, On Mon11/27/23 at 1130, Administer over 30 Minutes, Flush Line with NS after each dose, This agent is restricted to outpatient use. Is this drug being given as an outpatient? Yes New Bag 11/27/2023 11:01 AM EDT 200 mg 216 mL/hr PEMEtrexed disodium (Alimta) 800 mg in sodium chloride 0.9% 132 mL infusion 800 mg (rounded from 810 mg = 500 mg/m2/dose ? 1.62 m2 Treatment Plan BSA from Recorded weight), Intravenous, ONCE, 1 dose, On Mon11/27/23 at 1130, Administer over 10 Minutes New Bag 11/27/2023 11:51 AM EDT 800 mg 792 mL/hr documented in this encounter Care Teams Paint Stockman Relationship Specialty Start Date End Date Unknown None PCP - General 06/27/23 documented as of this encounter
--- OUTSIDE RECORDS SUMMARY | 2024-05-28 11:42 | XMS_ITS | Encounter Summary ---
Author Organization [facility] [place] [address] Care Team Providers Care Public Speaking Teacher Name Role Phone Unknown Primary Care Provider Unavailabl e Reason for Visit * Reason Onset Date Comments Headache 11/02/2023 Encounter Details Date Type Department Care Team (Late st Contact Info) Description 11/02/2023 Telephone Hematology/Oncology at [address] [phone] Maura Ford RN Headache Social History Tobacco Use Types Packs/Day Years Used Date Smoking Tobacco: Every Day Cigarettes Smokeless Tobacco: Never [facility] Utilities Answer Date Recorded In [...] Telephone Encounter - Maura Ford RN - 11/02/2023 11:43 AM EDT Pt called to report she needs to take x3 Aleve because she has a OROURKE and hx of aural migraine, and if she doesn't take aleve the migraine will last 3 days and be miserable. She was told she couldn'tuse Aleve at appointment yesterday. She tried 3 tylenol (1500 mg) with no effect. She reports eating and drinking okay and had small loose BM this morning. She reports body aches. Reviewed with provider who advised she is supposed to avoid NSAIDs due to bleeding risk. She can take dose today to prevent migraine worsening. Advised to take Aleve as prescribed and no more than 3 in a 24 hour period, which would increase her bleeding risk. She is in agreement. Also advised to reach out to PCP as they may have insight on migraine medication that doesn't have risk of bleeding. We reviewed the list of symptoms on when to call us. She is nervous being her first treatment and not knowing what to expect. Support provided and advised to call with ANY further questions or concerns. documented in this encounter Plan of Treatment Upcoming Encounters Date Type Department Care Team (Late st Contact Info) Description 06/21/2024 3:00 PM EST Appointment [place] [address] [address] HEMATOLOGY AND ONCOLOGY [place], [place] [address] 06/24/2024 2:30 PM EST Office Visit Hematology/Oncology at [address] [phone] Osvaldo Hatch MD [facility] DR [place] [address] [address] HEMATOLOGY AND ONCOLOGY [place], [place] [phone] documented as of this encounter Visit Diagnoses Not on filedocumented in this encounter Care Teams Public Speaking Teacher Relationship Specialty Start Date End Date Unknown None PCP - General 06/27/23 documented as of this encounter
--- OUTSIDE RECORDS SUMMARY | 2024-05-28 11:42 | XMS_ITS | Encounter Summary ---
Author Organization [facility] [place] [address] Care Team Providers Care Insurance Clerk Name Role Phone Unknown Primary Care Provider Unavailabl e Reason for Visit * Reason Onset Date Comments Follow-up 11/15/2023 S/p ED visit Encounter Details Date Type Department Care Team (Late st Contact Info) Description 11/15/2023 Telephone Hematology/Oncology at [address] [phone] Maura Ford RN Follow-up (S/p ED visit ) Social History Tobacco Use Types Packs/Day Years Used Date Smoking Tobacco: Every Day Cigarettes Smokeless Tobacco: Never [facility] Utilities Answer Date Recorded In the [...] place to sleep or slept in a fpc (including now)? Yes 10/16/2023 Sex and Gender Information Value Date Recorded Sex Assigned at Not on file Gender Identity Not on file Sexual Orientation Not on file documented as of this encounter Miscellaneous Notes * Telephone Encounter - Maura Ford RN - 11/15/2023 9:07 AM EDT Called and spoke with Nakita Hancock regarding her [facility] ED visit yesterday. She said her breathing is no better, stating her inhalers do nothing. She reports ED did a CT scan and they didn't see anything concerning and they didn't see a change in her cancer, but she feels like there is. She said they believe she has esophagitis sxs and advised to continue Maalox and Carafate regularly. She is advised to reach out to her deputy prosecuting attorney to follow up as well. She has FUV with us 11/22/23. ----- Message from Kaitlynn Tavarez sent at 11/14/2023 9:27 AM EDT ----- Nakita called in to let Dr. Hatch know that unless she is sitting still she can not breath and doesnot know what is going on with her and would like to find out. She called also to let him know thatshe is going to [facility] ED this morning to get checked out. Best call back number [phone] documented in this encounter Plan of Treatment Upcoming Encounters Date Type Department Care Team (Late st Contact Info) Description 06/21/2024 3:00 PM EST Appointment [place] [address] [address] HEMATOLOGY AND ONCOLOGY [place], [place] [address] 06/24/2024 2:30 PM EST Office Visit Hematology/Oncology at [address] [phone] Osvaldo Hatch MD [facility] DR [place] [address] [address] [place] [address] documented as of this encounter Visit Diagnoses Not on filedocumented in this encounter Care Teams Insurance Clerk Relationship Specialty Start Date End Date Unknown None PCP - General 06/27/23 documented as of this encounter
--- OUTSIDE RECORDS SUMMARY | 2024-05-28 11:42 | XMS_ITS | Encounter Summary ---
Author Organization [facility] Address [facility] [place] [address] Care Team Providers Care Wood Scrap Handler Name Role Phone Unknown Primary Care Provider Unavailabl e Reason for Visit * Reason Onset Date Comments Medication Refill 12/07/2023 prednisone Encounter Details Date Type Department Care Team (Late st Contact Info) Description 12/07/2023 Refill Hematology/Oncology at [address] [phone] Osvaldo Hatch MD [facility] DR [place] [address] Primary malignant neoplasm of right upper lobe of lung; COPD with exacerbation Social History Tobacco Use Types Packs/Day Years Used Date Smoking Tobacco: Every Day Cigarettes Smokeless Tobacco: Never [facility] Utilities Answer Date Recorded In the [...] Telephone Encounter - Maura Ford RN - 12/07/2023 4:31 PM EDT Pt calling to report increased asthma symptoms. She had initially called mica builder for steroids but according to last note provider mentioned avoiding this d/t immunotherapy, so mica builder is deferring decision to us. Pt asking for a few days of prednisone stating that works wonders forher symptoms which are agitated by increase in pollen and humidity. She is using inhalers and nebswith no effect. Reports she has been doing this a long time and knows the prednisone a few days will take of it. Reviewed with provider who is okay with short 5 day course. Pt aware to call if no improvement in symptoms. documented in this encounter Plan of Treatment Upcoming Encounters Date Type Department Care Team (Late st Contact Info) Description 06/21/2024 3:00 PM EST Appointment [place] [address] Dana Nevarez APRN [address] [place] [address] DR HEMATOLOGY [place] [address] 06/24/2024 2:30 PM EST Office Visit Hematology/Oncology at [address] [phone] Osvaldo Hatch MD [facility] DR [place]EM[place]OLOG[place] [address] Dana Nevarez APRN [address] [place] [address] DR HEMATOLOGY AND ONCOLOGY [place], [place] [id number] documented as of this encounter Visit Diagnoses Diagnosis Primary malignant neoplasm of right upper lobe of lung Malignant neoplasm of upper lobe, bronchus or lung COPD with exacerbation Obstructive chronic bronchitis with exacerbation documented in this encounter Care Teams Wood Scrap Handler Relationship Specialty Start Date End Date Unknown None PCP - General 06/27/23 documented as of this encounter
--- OUTSIDE RECORDS SUMMARY | 2024-05-28 11:42 | XMS_ITS | Encounter Summary ---
Author Organization [facility] Address [facility] [place] [address] Care Team Providers Care Artifacts Conservator Name Role Phone Unknown Primary Care Provider Unavailabl e Reason for Visit * Reason Onset Date Comments Medication Refill 12/12/2023 Prednisone Encounter Details Date Type Department Care Team (Late st Contact Info) Description 12/12/2023 Telephone Hematology/Oncology at [address] [phone] Maura Ford RN Medication Refill (Prednisone ) Social History Tobacco Use Types Packs/Day Years Used Date Smoking Tobacco: Every Day Cigarettes Smokeless Tobacco: Never [facility] Utilities Answer Date Recorded [...] Telephone Encounter - Maura Ford RN - 12/12/2023 3:00 PM EDT Nakita called back to ask for refill of Combivent Respimat (we last ordered on 10/30/23), she said the pharmacy said she cannot slat pickler until 12/16 unless the dose is increased (currently 1 puff every 6 hours). Confirmed with her pulmonology office they had already refilled her Advair diskus and albuterol sulfate (also gave her clotrimazole in case she gets thrush). Will review with provider. * Telephone Encounter - Maura Ford RN - 12/12/2023 11:17 AM EDT Pt here in clinic requesting to see triage nurse. She reports the prednisone we prescribed last week 12/06 helped her SOB and asthma symptoms. She reports she was also bringing up greenish-yellow phlegm but that has resolved. She denies any fevers. Now that prednisone is complete she is having more expiratory wheezing again. She is asking for longer prednisone course. She is also asking for refillof inhalers. Advised I would review prednisone with provider but she should contact her aviation survival technician for the inhaler refills. She said she would do this. Will call her back with provider recommendations. documented in this encounter Plan of Treatment Upcoming Encounters Date Type Department Care Team (Late st Contact Info) Description 06/21/2024 3:00 PM EST Appointment Nuclear [place] [address] HEMATOLOGY AND ONCOLOGY [place], [place] [id number] 06/24/2024 2:30 PM EST Office Visit Hematology/Oncology at [address] [phone] Osvaldo Hatch MD [facility] DR [place] [address] [address] [place]Y [place] [address] documented as of this encounter Visit Diagnoses Not on filedocumented in this encounter Care Teams Artifacts Conservator Relationship Specialty Start Date End Date Unknown None PCP - General 06/27/23 documented as of this encounter
--- OUTSIDE RECORDS SUMMARY | 2024-05-28 11:42 | XMS_ITS | Encounter Summary ---
Author Organization [facility] [place] [address] Care Team Providers Care Warehouse Operations Associate Name Role Phone Unknown Primary Care Provider Unavailabl e Encounter Details Date Type Department Care Team (Late st Contact Info) Description 11/13/2023 Orders Only Hematology/Oncology at [address] [phone] Osvaldo Hatch MD [facility] HEMATOLOGY [place] [address] Primary malignant neoplasm of right upper lobe of lung; COPD with exacerbation Social History Tobacco Use Types Packs/Day Years Used Date Smoking Tobacco: Every Day Cigarettes Smokeless Tobacco: Never [facility] Utilities Answer Date Recorded In the [...] 3:00 PM EST Appointment [place] [address] [address] [place] [address] 06/24/2024 2:30 PM EST Office Visit Hematology/Oncology at [address] [phone] Osvaldo Hatch MD [facility] DR HEMATOLOGY [place] [address] [address] [place] [address] documented as of this encounter Visit Diagnoses Diagnosis Primary malignant neoplasm of right upper lobe of lung Malignant neoplasm of upper lobe, bronchus or lung COPD with exacerbation Obstructive chronic bronchitis with exacerbation documented in this encounter Care Teams Warehouse Operations Associate Relationship Specialty Start Date End Date Unknown None PCP - General 06/27/23 documented as of this encounter
--- OUTSIDE RECORDS SUMMARY | 2024-05-28 11:42 | XMS_ITS | Encounter Summary ---
Author Organization [facility] Address [facility] [place] [address] Care Team Providers Care Computer Recycling Worker Name Role Phone Unknown Primary Care Provider Unavailabl e Encounter Details Date Type Department Care Team (Late st Contact Info) Description 01/25/2024 Orders Only Hematology [place] [phone] Osvaldo Hatch MD [facility] DR [place] [address] Social History Tobacco Use Types Packs/Day Years Used Date Smoking Tobacco: Every Day Cigarettes Smokeless Tobacco: Never [facility] Utilities Answer Date Recorded In the past [...] 3:00 PM EST Appointment [place] [address] [address] [place] [address] 06/24/2024 2:30 PM EST Office Visit Hematology/Oncology at [address] [phone] Osvaldo Hatch MD [facility] DR [place] [address] [address] [place] [address] documented as of this encounter Visit Diagnoses Not on filedocumented in this encounter Care Teams Computer Recycling Worker Relationship Specialty Start Date End Date Unknown None PCP - General 06/27/23 documented as of this encounter"
--- OUTSIDE RECORDS SUMMARY | 2024-05-28 11:42 | XMS_ITS | Encounter Summary ---
Author Organization [facility] [place] [address] Care Team Providers Care Tearer Name Role Phone Unknown Primary Care Provider Unavailabl e Encounter Details Date Type Department Care Team (Late st Contact Info) Description 11/06/2023 Orders Only Hematology/Oncology at [address] [phone] Osvaldo Hatch MD [facility] [place] [address] Primary malignant neoplasm of right upper lobe of lung; Neoplasm related pain Social History Tobacco Use Types Packs/Day Years Used Date Smoking Tobacco: Every Day Cigarettes Smokeless Tobacco: Never [facility] Utilities Answer Date Recorded In the [...] 3:00 PM EST Appointment [place] [address] HEMATOLOGY AND ONCOLOGY [place], [place] [address] 06/24/2024 2:30 PM EST Office Visit Hematology/Oncology at [address] [phone] Osvaldo Hatch MD [facility] [place] [address] [address] [place] [address] documented as of this encounter Visit Diagnoses Diagnosis Primary malignant neoplasm of right upper lobe of lung Malignant neoplasm of upper lobe, bronchus or lung Neoplasm related pain Neoplasm related pain (acute) (chronic) documented in this encounter Care Teams Tearer Relationship Specialty Start Date End Date Unknown None PCP - General 06/27/23 documented as of this encounter
--- OUTSIDE RECORDS SUMMARY | 2024-05-28 11:42 | XMS_ITS | Encounter Summary ---
Author Organization [facility] Address [facility] [place] [address] Care Team Providers Care Authorization Nurse Name Role Phone Unknown Primary Care Provider Unavailabl e Encounter Details Date Type Department Care Team (Latest Contact Info) Description 12/20/2023 Travel Social History Tobacco Use Types Packs/Day Years Used Date Smoking Tobacco: Every Day Cigarettes Smokeless Tobacco: Never [facility] Utilities Answer Date Recorded In the past 12 months has th e [employer], gas, oil, or water [employer] threatened to shut off services in your [...] 3:00 PM EST Appointment [place] [address] HEMATOLOGY AND ONCOLOGY [place], [place] [address] 06/24/2024 2:30 PM EST Office Visit Hematology/Oncology at [address] [phone] Osvaldo Hatch MD [facility] DR HEMATOLOGY [place] [address] [address] HEMATOLOGY [place] [address] documented as of this encounter Visit Diagnoses Not on filedocumented in this encounter Care Teams Authorization Nurse Relationship Specialty Start Date End Date Unknown None PCP - General 06/27/23 documented as of this encounter
--- OUTSIDE RECORDS SUMMARY | 2024-05-28 11:42 | XMS_ITS | Encounter Summary ---
Author Organization [facility] Address [facility] [place] [address] Care Team Providers Care Camp Tender Name Role Phone Unknown Primary Care Provider Unavailabl e Encounter Details Date Type Department Care Team (Late st Contact Info) Description 12/20/2023 12:00 PM EDT Office Visit Hematology/Oncology at [address] [phone] Dana Nevarez [address] HEMATOLOGY AND ONCOLOGY [place], [place] [phone] Primary malignant neoplasm of right upper lobe of lung; Chemotherapy induced nausea and vomiting; Hypomagnesemia Social History Tobacco Use Types Packs/Day Years Used Date Smoking Tobacco: Every Day Cigarettes Smokeless Tobacco: Never [facility] Utilities Answer Date Recorded In the past 12 months has [facility] [employer], gas, oil, or water [employer] threatened to shut off services in your [...] Sign Reading Time Taken Comments Blood Pressure 127/75 12/20/2023 12:17 PM EDT Pulse 108 12/20/2023 12:17 PM EDT Temperature 36.4 ??C (97.5 ??F) 12/20/2023 1 2:17 PM EDT Respiratory Rate 18 12/20/2023 12:1 7 PM EDT Oxygen Saturation 97% 12/20/2023 12: 17 PM EDT Inhaled Oxygen Concentration - - Weight 54.8 kg (120 lb 12.8 oz) 024 12:17 PM EDT Height 166.1 cm (5' 5.39) 12/20/2023 1 2:17 PM EDT Body Mass Index 19.86 12/20/2023 12:17 PM EDT documented in this encounter Progress Notes * Dana Nevarez APRN - 12/20/2023 12:00 PM EDT Images from the original note were not included. Thoracic Oncology [facility] [place] [address] [phone] Nakita Hancock is being seen for the [...] helps explains her continued respiratory symptoms, though there is improvement. - Labs and toxicities assessed and acceptable for ongoing treatment. - IV mag, 1 gm today - RTC in 3 weeks for consideration of C4, plan to restage with PET scan to assess that site of ? More distant disease in the femur - Engaging social work, engaging RD. - Previously our [facility] Center behavioral health team to review talk therapy or other options. She indicated she would think about this. Anxiety actually seems better today Dana Nevarez, MOLDED GOODS INSPECTOR TRIMMER 12/20/2023 Medical Oncology & Hematology [facility] CC: HPI/Interval History/Subjective: Last seen 11/27/2023 Started advair and combivent which does help a little, still off prednisone. No fevers, lots of nausea and gassiness, no vomiting, a couple episodes of diarrhea. Joints are bothering her but liveable, she'd like to take aleve and we discussed scheduling this around chemo. No rashes Pain is good, hasn't needed tramadol in a while. Trying to keep moving Her bowels are normal for her. No baseline hearing loss. Still smoking about 1/2 ppd Anxiety is better as her breathing jareth improved. No need lorazepam. Social History/Support Network: Home situation: Single parent. 15 year old daughter- Oliva. Originally from [place]. 25 year old son Annette is her emergency contact. Employment: [employer] Tobacco use: 1 pack/day smoking history for [...] Not on file Utilities: At Risk (10/16/2023) [facility] Utilities Threatened with loss of utilities: Yes Health Literacy: Not on file Family History: Mother- Dscd ovarian cancer and bladder cancer by report Father- Dscd And maternal grandfather had lung cancer A daughter had leukemia (sounds like APML) and was cured by systemic therapy. Family History Problem Relation Age of Onset Arthritis Maternal Grandmother Oncology Overview: Screen shot from Dr. Rosario's records at [facility] In progress Presentation: Nakita Hancock [...] time she met with thoracic surgery at [facility]. For evaluation with staging EBUS was planned. She did not come to the visit. She was also referred to medical oncology at that time but did not come. Multiple telephone calls were made and letters sent in hopes that she might reschedule. She ultimately connected with [facility] pulmonary medical oncology and underwent [...] favoring a benign etiology. 02.08.23 PET scan ([facility]) 1. The large primary mass [...] represent metastatic disease and the plan at [facility] was for systemic therapy followed [...] Pathology: S Molecular Data: NA Treatment Course: 424 C1 Carbo/pem/pem 5.13.24 C2 Carbo/pem/pem 5..24 CT Chest 12/20/23 C3 carbo/pem/pem 11/01/2023 12:03 PM 11/01/2023 12:31 PM 11/01/2023 1:08 PM 11/01/2023 1:22 PM 11/27/2023 11:01 AM 11/27/2023 11:51 AM 11/27/2023 12:24 PM ONCBCN ONCOLOGY (AMB) Day, Cycle Day 1, Cycle 1 Day 1, Cycle 2 CARBOplatin (Paraplatin) IV 340 mg 409 mg cyanocobalamin (Vitamin B-12) 1,000 mcg/mL SubQ [...] Exam: Wt Readings from Last 3 Encounters: 11/27/23 53.9 kg (118 lb 12.8 oz) 11/01/23 54.6 kg (120 lb 6.4 oz) 10/16/23 55.9 kg (123 lb 3.2 oz) Temp Readings from Last 3 Encounters: 11/27/23 36.5 ??C (97.7 ??F) (Temporal) 11/01/23 36.4 ??C (97.5 ??F) 10/16/23 36.3 ??C (97.3 ??F) (Temporal) BP Readings from Last 3 Encounters: 11/27/23 128/77 11/01/23 125/74 10/16/23 123/68 Pulse Readings from Last 3 Encounters: 11/27/23 (!) 107 11/01/23 (!) 103 10/16/23 (!) 103 There is no height or weight on file to calculate BSA. Wt Readings from Last 3 Encounters: 11/27/23 53.9 kg (118 lb 12.8 oz) 11/01/23 54.6 kg (120 lb 6.4 oz) 10/16/23 55.9 kg (123 lb 3.2 oz) KPS Score ECOG Grade Definition 90-100 [...] Judgment: Judgment normal. Review of Laboratory Data: 6.5.24 WBC 6.65, Hgb 13.4, HCT 40.0, [...] 3:00 PM EST Appointment [place] [phone] Dana Nevarez MOLDED GOODS INSPECTOR TRIMMER [address] [place] [address] DR HEMATOLOGY AND ONCOLOGY [place], [place] [phone] 06/24/2024 2:30 PM EST Office Visit Hematology/Oncology at [address] [phone] Osvaldo Hatch MD [facility] DR HEMATOLOGY [place] [address] Dana Nevarez APRN [address] [place] [address] DR HEMATOLOGY AND ONCOLOGY [place], [place] [phone] documented as of this encounter Visit Diagnoses Diagnosis Primary malignant neoplasm of right upper lobe of lung Malignant neoplasm of upper lobe, bronchus or lung Chemotherapy induced nausea and vomiting Nausea with vomiting Hypomagnesemia Disorders of magnesium metabolism documented in this encounter Care Teams Camp Tender Relationship Specialty Start Date End Date Unknown None PCP - General 06/27/23 documented as of this encounter
--- OUTSIDE RECORDS SUMMARY | 2024-05-28 11:42 | XMS_ITS | Encounter Summary ---
Author Organization [facility] Address [facility] [place] [address] Care Team Providers Care Otolaryngology Physician Name Role Phone Unknown Primary Care Provider Unavailabl e Encounter Details Date Type Department Care Team (Late st Contact Info) Description 11/06/2023 Telephone Hematology/Oncology at [address] [phone] Simin Jung RN Social History Tobacco Use Types Packs/Day Years Used Date Smoking Tobacco: Every Day Cigarettes Smokeless Tobacco: Never [facility] Utilities Answer Date Recorded In [...] Telephone Encounter - Simin Jung RN - 11/06/2023 5:05 PM EDT After discussion with Dr. Hatch. Prescription for tramadol sent to [facility] for Nakita. I called herto let her know this and went over how to take it. She was very thankful for the call back and willlet us know if this doesn't help. We will check in with her on Monday if we don't hear from her before then. * Telephone Encounter - Simin Jung RN - 11/06/2023 4:11 PM EDT Phone call to Nakita to check if she is taking her folic acid. She reports that she is. She brought up concerns of her cough not getting better, she is having sever pain in her upper back from coughing and pulling all the muscles. She is using her inhaler which seems to help some. Taking tylenoland aleve with not relief of pain. Her breathing is about the same. She also report all over joint pain, even in the balls of her feet. She became teary on the phone stating she can't work because of the pain and she is going to be homeless again if she can't work. Will discuss with Dr. Hatch. * Telephone Encounter - Simin Jung RN - 11/06/2023 4:11 PM EDT ----- Message from Simin Jung RN sent at 11/03/2023 8:10 AM EDT ----- ----- Message ----- From: Dana Nevarez APRN Sent: 11/01/2023 4:01 PM EDT To: Simin Jung RN; [facility] Hem Onc [place] 1. Nursing, please check in with her on Sunday 11/05. Particularly, I want to be sure she's taking the folate daily (she seemed to not want to trust over the counter supplements, I did send a script in as well). 2. RTC in 3 weeks with CBC, CMP, Mg, TSH, Free T4 + visit + infusion. She will be someone that lines up with , so maybe C2 can be Monday and then C3 can be back on a Monday? To try to give Kendell an opportunity to see her? documented in this encounter Plan of Treatment Upcoming Encounters Date Type Department Care Team (Late st Contact Info) Description 06/21/2024 3:00 PM EST Appointment [place] [phone] Dana Nevarez[address] HEMATOLOGY AND ONCOLOGY [place], [place] [phone] 06/24/2024 2:30 PM EST Office Visit Hematology/Oncology at [address] [phone] Osvaldo Hatch MD [facility] DR [place] [address] [address] HEMATOLOGY AND ONCOLOGY [place], [place] [address] documented as of this encounter Visit Diagnoses Not on filedocumented in this encounter Care Teams Otolaryngology Physician Relationship Specialty Start Date End Date Unknown None PCP - General 06/27/23 documented as of this encounter
--- OUTSIDE RECORDS SUMMARY | 2024-05-28 11:42 | XMS_ITS | Encounter Summary ---
Author Organization [facility] Address [facility] [place] [address] Care Team Providers Care Project Development Director Name Role Phone Unknown Primary Care Provider Unavailabl e Reason for Referral * Diagnostic Test (Routine) - Authorized Specialty Diagnoses / Procedures Referred By Contac t Referred To Contact Radiology Diagnoses Primary malignant neoplasm of right upper lobe of lung Procedures CT Chest w Contrast Dony Hatch MD [facility] [place] [address] Referral ID Status Reason Start Date Expiration Date Visits Requested Visits Authorized [id number] Authorized Specialty Service Requested 11/27/2023 05/29/2025 1 1 Encounter Details Date Type Department Care Team (Late st Contact Info) Description 11/27/2023 9:00 AM EDT Office Visit Hematology/Oncology at [address] [phone] Dony Hatch MD [facility] [place]OLOGY [place] [address] [facility] [place]OLOGY [place] [address] Primary malignant neoplasm of right upper lobe of lung (Primary Dx); Hypomagnesemia Social History Tobacco Use Types Packs/Day [...] Sign Reading Time Taken Comments Blood Pressure 128/77 11/27/2023 9:20 AM EDT Pulse 107 11/27/2023 9:20 AM EDT Temperature 36.5 ??C (97.7 ??F) 11/27/2023 9:20 AM ED T Respiratory Rate 18 11/27/2023 9:20 AM EDT Oxygen Saturation 97% 11/27/2023 9:20 AM EDT Inhaled Oxygen Concentration - - Weight 53.9 kg (118 lb 12.8 oz) 11/27/2023 9:20 AM EDT Height 166.1 cm (5' 5.39) 11/27/2023 9:20 AM ED T Body Mass Index 19.53 11/27/2023 9:20 AM EDT documented in this encounter Progress Notes * Dony Hatch MD - 11/27/2023 9:00 AM EDT Images from the original note were not included[place] [address] [phone] Nakita Hancock is being seen for the evaluation of lung cancer. Assessment & Plan: Nakita Hancock is a 57 y.o. female [...] Began palliative intent carboplatin/pemetrexed/pembrolizumab on 10/31/23. Plan: - Labs and toxicities assessed and acceptable for ongoing treatment. - IV mag - Complete Augmentin course as per pulmonary. Encouraged her to try and avoid going back on the prednisone given the immunotherapy. - Restage with CT chest after this cycle - PET scan after 4 cycles to assess that site of ? More distant disease in the femur - Engaging social work, engaging RD. - Previously our [facility] behavioral health team to review talk therapy or other options. She indicated she would think about this. Anxiety actually seems better today Dony Hatch MD, MS 11/27/2023 Medical [facility] & [facility] CC: HPI/Interval History/Subjective: Last seen 11/01/2023 Started advair and combivent which does help a little Bringing up yellowish/phlegm Started Augmentin on Monday from the doxycycline and this seems to help. Also prednisone 20mg - was off as of yesterday No fevers Had loose stools last week - had flu bug last week. Now all better. Joints are ok. No rashes Pain is improving - not needing tramadol Trying to keep mving Her bowels are normal for her. No baseline hearing loss. Still smoking about 1/2 ppd Anxiety is better as her breathing jareth improved. No need lorazepam. Social History/Support Network: Home situation: Single parent. 15 year old daughter- Oliva. Originally from [place]. 25 year old son Annette is her emergency contact. Employment: [employer] Tobacco use: 1 pack/day smoking history for [...] on file Utilities: At Risk (10/16/2023) [facility] Utilities Threatened with loss of utilities: Yes Family History: Mother- Dscd ovarian cancer and bladder cancer by report Father- Dscd And maternal grandfather had lung cancer A daughter had leukemia (sounds like APML) and was cured by systemic therapy. Family History Problem Relation Age of Onset Arthritis Maternal Grandmother Oncology Overview: Screen shot from Dr. Rosario's records at [facility] In progress Presentation: Nakita Hancock is [...] time she met with thoracic surgery at [facility]. For evaluation with staging EBUS was planned. She did not come to the visit. She was also referred to medical oncology at that time but did not come. Multiple telephone calls were made and letters sent in hopes that she might reschedule. She ultimately connected with [facility] pulmonary medical oncology and underwent additional [...] favoring a benign etiology. 02.08.23 PET scan ([facility]) 1. The large primary mass in [...] represent metastatic disease and the plan at [facility] was for systemic therapy followed by [...] Data: NA Treatment Course: 11.01.23 C1 Carbo/pem/pem 11/01/2023 12:03 PM 11/01/2023 12:31 PM 11/01/2023 1:08 PM 11/01/2023 1:22 PM ONCBCN ONCOLOGY (AMB) Day, Cycle Day 1, Cycle 1 CARBOplatin (Paraplatin) IV 340 mg cyanocobalamin (Vitamin B-12) 1,000 mcg/mL SubQ 1,000 mcg pembrolizumab 25 mg/mL (Keytruda) IV 200 mg PEMEtrexed disodium (Alimta) IV 500 mg/m2/dose = 800 mg Patient Active [...] 107 11/01/23 (!) 103 10/16/23 (!) 103 Body surface area is 1.58 meters squared. Wt Readings from Last 3 Encounters: 11/27/23 [...] Judgment: Judgment normal. Review of Laboratory Data: 5.13.24 Sodium 141 potassium 3.8 chloride 100 [...] encounter Miscellaneous Notes * Addendum Note - Dony Hatch MD - 11/27/2023 9:00 AM EDTAddended by: DONY HATCH on: 11/27/2023 10:09 AM Modules accepted: Orders documented in this encounter Plan of Treatment Upcoming Encounters Date Type Department Care Team (Late st Contact Info) Description 06/21/2024 3:00 PM EST Appointment [place] [phone] Dana Nevarez [address] HEMATOLOGY AND ONCOLOGY [place], [place] [phone] 06/24/2024 2:30 PM EST Office Visit Hematology/Oncology at [address] [phone] [facility] DR HEMATOLOGY [place] [address] Dana Nevarez [address] [place] [address] Scheduled Orders Name Type Priority Associated Diagnoses Orde r Schedule CT Chest w Contrast Imaging Routine Primary malignant neoplasm of right upper lobe of lung Expected: 12/11/2023 (Approximate), Expires: 11/26/2024 documented as of this encounter Visit Diagnoses Diagnosis Primary malignant neoplasm of right upper lobe of lung- Primary Malignant neoplasm of upper lobe, bronchus or lung Hypomagnesemia Disorders of magnesium metabolism documented in this encounter Care Teams Project Development Director Relationship Specialty Start Date End Date Unknown None PCP - General 06/27/23 documented as of this encounter
--- OUTSIDE RECORDS SUMMARY | 2024-05-28 11:42 | XMS_ITS | Encounter Summary ---
Author Organization [facility] Address [facility] [place] [address] Care Team Providers Care Operating Room Surgical Technologist Name Role Phone Unknown Primary Care Provider Unavailabl e Reason for Visit * Reason Onset Date Comments Shortness of Breath 11/13/2023 Encounter Details Date Type Department Care Team (Late st Contact Info) Description 11/13/2023 Telephone Hematology/Oncology at [address] [phone] Shavon Arce RN Shortness of Breath Social History Tobacco Use Types Packs/Day Years Used Date Smoking Tobacco: Every Day Cigarettes Smokeless Tobacco: Never [facility] Utilities Answer Date Recorded In the [...] Telephone Encounter - Shavon Arce RN - 11/13/2023 11:43 AM EDT Nakita called back today. Her SOB is hasn't changed. She is very frustrated. She is coughing up some green/brown phlegm but does not feel like the Bronkaid and Mucinex are working. Reports she is onall the inhalers and nebulizers. She declines going to the ED. Reviewed with Dr. Hatch. Will start doxycyline for 7 days and prednisone 40mg/day for 5 days. Sent to [facility] Called Nakita back to let her know the plan, she is in agreement. She also reports that the back pain is better and she has stopped taking the tramadol. documented in this encounter Plan of Treatment Upcoming Encounters Date Type Department Care Team (Late st Contact Info) Description 06/21/2024 3:00 PM EST Appointment [place] [phone] Dana Nevarez APRN [address] [place] [address] DR HEMATOLOGY AND ONCOLOGY [place], [place] [phone] 06/24/2024 2:30 PM EST Office Visit Hematology/Oncology at [address] [phone] Osvaldo Hatch MD [facility] DR [place] [address] Dana Nevarez APRN [address] [place] [address] DR HEMATOLOGY [place] [address] documented as of this encounter Visit Diagnoses Not on filedocumented in this encounter Care Teams Operating Room Surgical Technologist Relationship Specialty Start Date End Date Unknown None PCP - General 06/27/23 documented as of this encounter
--- OUTSIDE RECORDS SUMMARY | 2024-05-28 11:42 | XMS_ITS | Encounter Summary ---
Author Organization [facility] [place] [address] Care Team Providers Care Hospitalist Physician Name Role Phone Unknown Primary Care Provider Unavailabl e Encounter Details Date Type Department Care Team (Late st Contact Info) Description 11/08/2023 12:00 PM EDT Telephone Hematology/Oncology at [address] [phone] Katerine Whipple, RD [facility] DR [place] [address] Social History Tobacco Use Types Packs/Day Years [...] encounter Miscellaneous Notes * Telephone Encounter - Katerine Whipple RD - 11/08/2023 12:51 PM EDT Nutrition Note Attempted to reach Nakita over the phone today. Voicemail message indicated that mailbox is full. Will schedule visit with her on 11/26 when she returns to clinic. documented in this encounter Plan of Treatment Upcoming Encounters Date Type Department Care Team (Late st Contact Info) Description 06/21/2024 3:00 PM EST Appointment [place] [phone] Dana Nevarez [address] HEMATOLOGY AND ONCOLOGY [place], [place] [phone] 06/24/2024 2:30 PM EST Office Visit Hematology/Oncology at [address] [phone] Osvaldo Hatch MD [facility] DR [place] [address] Dana Nevarez [address] HEMATOLOGY AND ONCOLOGY [place], [place] [address] documented as of this encounter Visit Diagnoses Not on filedocumented in this encounter Care Teams Hospitalist Physician Relationship Specialty Start Date End Date Unknown None PCP - General 06/27/23 documented as of this encounter
--- OUTSIDE RECORDS SUMMARY | 2024-05-28 11:42 | XMS_ITS | Encounter Summary ---
Author Organization [facility] [place] [address] Care Team Providers Care Medical Assistant Secretary Name Role Phone Unknown Primary Care Provider Unavailabl e Encounter Details Date Type Department Care Team (Late st Contact Info) Description 11/27/2023 Notes Only Hematology/Oncology at [address] [phone] Michelle Marsh, CABLE FORMER OFFICE OF CARE MANAGEMENT Social History Tobacco [...] Progress Notes * Michelle Marsh MSW - 11/27/2023 10:36 AM EDT Follow up with Nakita during her infusion visit today. She indicated she has not felt well for thepast few weeks. She has not been up to doing much. She is managing as best she can. Inquired if shebrought in any bills to apply to [facility] [place]. She left her rent statement in her car and will ring it is before she leaves for the day. SIMÓN will [facility] to the [facility] [place] for up to $350 towards that bill.Inquired if she applied to the [employer]. She has not yet but plans to. Encouraged her to get herapplication in as the board meets the end of each month to review application. Nakita indicated she can follow through with that. Inquired how her daughter was coping and Nakita indicated her daughter is doing okay. She has support from family and friends. Nakita did not identify any new needs today. Will complete her application to the [facility] [place] once shebrings in her rent bill. Brief assessment Supportive Counseling Financial resources Community Resource documented in this encounter Plan of Treatment Upcoming Encounters Date Type Department Care Team (Late st Contact Info) Description 06/21/2024 3:00 PM EST Appointment [place] [phone] [address] HEMATOLOGY AND ONCOLOGY [place], [place] [address] 06/24/2024 2:30 PM EST Office Visit Hematology/Oncology at [address] [phone] Osvaldo Hatch MD [facility] DR HEMATOLOGY [place] [address] [address] HEMATOLOGY AND ONCOLOGY [place], [place] [phone] documented as of this encounter Visit Diagnoses Not on filedocumented in this encounter Care Teams Medical Assistant Secretary Relationship Specialty Start Date End Date Unknown None PCP - General 06/27/23 documented as of this encounter
--- OUTSIDE RECORDS SUMMARY | 2024-05-28 11:42 | XMS_ITS | Encounter Summary ---
Author Organization Formerly [facility] [place] [address] Care Team Providers Care Professor Of Economics Name Role Phone Unknown Primary Care Provider Unavailabl e Encounter Details Date Type Department Care Team (Latest Contact Info) Description 11/27/2023 10:00 AM EDT Clinical Support Hematology/Oncology at [address] [phone] Katerine Whipple, RD [facility] DR [place] [address] Mass of upper lobe of right lung Social History Tobacco Use Types Packs/Day [...] place to sleep or slept in a nursing home (including now)? Yes 10/16/2023 Sex and Gender Information Value Date Recorded Sex Assigned at Not on file Gender Identity Not on file Sexual Orientation Not on file documented as of this encounter Progress Notes * Katerine Whipple RD - 11/27/2023 10:00 AM EDT Nutrition Note Visited patient in infusion today. She declined appointment. Will be available to see her in the future if she would like. documented in this encounter Plan of Treatment Upcoming Encounters Date Type Department Care Team (Late st Contact Info) Description 06/21/2024 3:00 PM EST Appointment [place] [address] HEMATOLOGY AND ONCOLOGY [place], [place] [id number] 06/24/2024 2:30 PM EST Office Visit Hematology/Oncology at [address] [phone] Osvaldo Hatch MD [facility] [address] [place] [address] Dana Nevarez [address] HEMATOLOGY AND ONCOLOGY [place], [place] [id number] documented as of this encounter Visit Diagnoses Diagnosis Mass of upper lobe of right lung documented in this encounter Care Teams Professor Of Economics Relationship Specialty Start Date End Date Unknown None PCP - General 06/27/23 documented as of this encounter
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
--- OUTSIDE RECORDS SUMMARY | 2024-05-28 11:42 | XMS_ITS | Encounter Summary ---
Author Organization [facility] [place] [address] Care Team Providers Care Screen Printing Machine Loader Unloader Name Role Phone Unknown Primary Care Provider Unavailabl e Encounter Details Date Type Department Care Team (Late st Contact Info) Description 01/17/2024 Notes Only Hematology/Oncology at [address] [phone] Michelle Marsh, [employer] OFFICE OF CARE MANAGEMENT Social History Tobacco Use Types Packs/Day Years Used Date Smoking Tobacco: Every Day Cigarettes Smokeless Tobacco: Never [facility] Utilities Answer [...] Progress Notes * Michelle Marsh MSW - 01/17/2024 12:00 PM EDT Follow up with Nakita during her infusion visit. Informed her [employer] tried to call her to get required information for an application to the [facility]. Because unable to reach PAVER LAYER was unable to apply and thend is now closed for a period of time. P[employer] L[employer]ER informed her I will notify her when the fund re-opens (possibly February) and we can try then if she provides the require information. Nakita did get her fi rst stipend 9$250 month for 6 months) from the [employer] and is expecting the next to come in Directed her to call the fund if she has any questions re this. She has food assistance to cover food costs for she and her daughter. [employer] will follow Nakita for support and resources. Brief assessment Financial resources Community Resource documented in this encounter Plan of Treatment Upcoming Encounters Date Type Department Care Team (Late st Contact Info) Description 06/21/2024 3:00 PM EST Appointment [place] [address] Dana Nevarez, [address] [place] [address] 06/24/2024 2:30 PM EST Office Visit Hematology/Oncology at [address] [phone] Osvaldo Hatch MD [facility] DR [place] [address] Dana Nevarez APRN [address] [place] [address] [place] [address] documented as of this encounter Visit Diagnoses Not on filedocumented in this encounter Care Teams Screen Printing Machine Loader Unloader Relationship Specialty Start Date End Date Unknown None PCP - General 06/27/23 documented as of this encounter
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
--- OUTSIDE RECORDS SUMMARY | 2024-05-28 11:43 | XMS_ITS | Encounter Summary ---
Author Organization Formerly [facility] Address [facility] [place] [address] Care Team Providers Care Folder Inspector Name Role Phone Nyasia Pedro DO Primary Care Provider Liseth olmos Encounter Details Date Type Department Care Team (Latest Contact Info) Description 04/13/2016 10:49 AM EDT - 04/13/2016 11:59 PM EDT Hospital Encounter XRay at [address] [place] [address] Hiram Pedro MD [facility] [place] [address] Chronic midline thoracic back pain Discharge Disposition: Home Social History Tobacco Use Types Packs/Day Years Used Date Smoking Tobacco: Every Day Cigarettes Smokeless Tobacco: Never Sex and Gender Information Value Date Recorded Sex Assigned at Not on file Gender Identity Not on file Sexual Orientation Not on file documented as of this encounter Medications at Time of Discharge Medication Sig Dispensed Refills Start Date End Date naproxen sodium (ANAPROX) 220 mg Tablet Take 440 mg by mouth 2 times daily (with meals). cyclobenzaprine (FLEXERIL) 10 mg Tablet Take 10 mg by mouth nightly. 0 03/29/2016 11/01/2023 estradiol (ESTRACE) 0.5 mg Tablet Take 0.5 mg by mouth daily. 0 02/23/2016 10/16/2023 medroxyPROGESTERone (PROVERA) 2.5 mg Tablet Take 2.5 mg by mouth daily. 0 03/28/2016 10/16/2023 documented as of this encounter Plan of Treatment Upcoming Encounters Date Type Department Care Team (Late st Contact Info) Description 06/21/2024 3:00 PM EST Appointment [place] [address] HEMATOLOGY AND ONCOLOGY [place], [place] [address] 06/24/2024 2:30 PM EST Office Visit Hematology/Oncology at [address] [phone] Osvaldo Hatch MD [facility] [place] [address] [address] HEMATOLOGY AND ONCOLOGY [place], [place] [phone] documented as of this encounter Procedures Procedure Name Priority Date/Time Associated Diagnosis Comments XR THORACIC SPINE 2 VIEWS Routine 04/13/2016 11:12 AM EDT Chronic midline thoracic back pain documented in this encounter Results * XR Thoracic Spine 2 views (04/13/2016 11:12 AM EDT) Anatomical Region Laterality Modality N/A Digital Radiogra phy Impressions 04/13/2016 11:25 AM EDT No significant abnormality. Narrative 04/13/2016 11:25 AM EDT EXAMINATION: XR THORACIC SPINE 2 VIEWS CLINICAL HISTORY: Chronic midline thoracic spine pain, remote history of trauma TECHNIQUE: AP and lateral thoracic spine COMPARISON: None FINDINGS: There are 12 rib-bearing thoracic vertebra. There is a mild degree of curvature convex to the LEFT but no fracture or subluxation is seen. Procedure Note Daniel Lebron MD - 04/13/2016 EXAMINATION: XR THORACIC SPINE 2 VIEWS CLINICAL HISTORY: Chronic midline thoracic spine pain, remote history oftrauma TECHNIQUE: AP and lateral thoracic spine COMPARISON: None FINDINGS: There are 12 rib-bearing thoracic vertebra. There is a mild degree ofcurvature convex to the LEFT but no fracture or subluxation is seen. IMPRESSION No significant abnormality. Hiram Pedro MD IMG DX ORDERABLES documented in this encounter Visit Diagnoses Diagnosis Chronic midline thoracic back pain documented in this encounter Care Teams Folder Inspector Relationship Specialty Start Date End Date Nyasia Pedro DO PCP - General 08/29/13 06/26/23 documented as of this encounter
--- OUTSIDE RECORDS SUMMARY | 2024-05-28 11:43 | XMS_ITS | Encounter Summary ---
Author Organization [facility] [place] [address] Care Team Providers Care Patient Day Coordinator Name Role Phone Nyasia Pedro DO Primary Care Provider Liseth olmos Encounter Details Date Type Department Care Team (Late st Contact Info) Description 08/29/2013 10:00 AM EST Office Visit [place] [address] Yan Rivera MD [facility] [place] [address] Throat pain (Primary Dx) Discharge Disposition: Home Social History Tobacco Use Types Packs/Day Years Used Date Smoking Tobacco: Every Day Cigarettes Sex and Gender Information Value Date Recorded Sex Assigned at Not on file Gender Identity Not on file Sexual Orientation Not on file documented as of this encounter Progress Notes * Yan Rivera MD - 08/29/2013 10:13 AM EST INFECTIOUS DISEASE RED TEAM FELLOW OUTPATIENT NOTE Background: Pt is here for Lyme disease evaluation, Ms Hancock has h/o abdominal pain, pelvic pain, depression, fatigue.She was dx with fibromyalgia in 2010 here at [facility] Pt has been worked up in the past for diffuse musculoskeletal pain by her PCP withno specific reason found. Pt had a tick bite in February 2013 with an presumed Bulls eye lesion in her L hip. 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 Pt did not seek medical attention.Pt did not receive treatment and no antibiotics were prescribed at that time Pt complains of ongoing generalized craking of her joints, chest pain, numbness in her hand and feet, problems with breathing, headaches for about 3-4 months now that started about a couple of weeks after that tick bite. Pt is also complaining of shaking chills, . Pt says she has ongoing T 101 2,3/week, chills, night sweats, poor appetite but no losing weight, she is also complaining of hand swelling and being in general unable to function Pt was seen last 07/08/13 by Neurology. At that time she was complaining of headaches and backaches. Evaluation included Lyme serologies western blot that per records were negative 3 months after herinitial tick bite. , B12, folate, ESR, TSH (all normal per their records) No allergies Pt is on VIt D, flexeril, anxiety medication Smokes 10 cig/day, no alcohol of IV drugs No sick contacts Labs July 2013 CK 106 Hep C Ab negative Hep B surface Ag negative RA negative OCTAVIA negative ESR 5 CRP 1.7 Creatinine 0.71 Physical Exam: Gen: NAD, nontoxic. A&Ox3. HEENT: PERRLA. No sclera icterus or conjunctival injection. O/p clear w/ MMM. Pulm: CTAB. Nl effort. Cardio: RRR, no M/G/R. GI: Abd S/ND/NT w/o rebound or guarding.Nl BS. Back: No (para)spinal TTP. No CVA TTP. Neuro: No gross deficits noted Skin: No rashes. Impression/Plan: Nakita Hancock is a 47 y.o. female with h/o abdominal pain, pelvic pain, depression, fatigue.She was dx with fibromyalgia in 2010 here at [facility] and she is here this time for evaluation of Lyme infection. Pt describes an apparent Bull's eye lesion on her hip and being bitten by a tick. Serologies and WB were negative per OSH notes. A test for Lyme should be positive specially 3 months after beingbitten by a tick but we do not have the actual test with us. We should repeat it today so we can interpret it ourselves. Given her outdoor exposure, tick bite, classical rash and equivocal symptoms, we want to treat her for 3 weeks and see her response to therapy but in case she does not improve, th ere is no evidence that a longer antibiotic treatment will improve her symptoms and is discouraged Recommendation Doxycycline 100mg PO bid x 3 weeks, Retest her today for Lyme serology with reflex WB if positive Discussed with ID attending Dr Adalberto Manzo MD Fellow, Infectious Disease Pager [phone] ID Attending I reviewed the patient's history with Dr. Manzo during the visit and I agree with his history, asdetailed above. In brief, we were asked by Dr. Daly to see this 47 y.o. female because of possible Lyme disease. Ms. Hancock has had a large number of musculoskeletal complaints for some time, but these seemed to get worse after she noticed a bullseye-like rash on her left flank. She spends a lot of time working outdoors but she does not recall having had a tick bite. A Lyme test done several months after the rash was noted was negative, by report. Ms. Hancock has been evaluated for rheumatologic diseases, with negative testing. She is concerned that many of her ongoing symptoms are dueto chronic Lyme disease, for which she has not been treated. She has not had objective joint abnormalities and she did not complain of headache or other specific neurologic symptoms. I interviewed and examined the patient myself, and my examination confirms Dr. Manzo's findings. Dr. Manzo's assessment and plan were formulated in discussion with me at the time of the visit, and I agree with them as documented. We are uncertain as to whether Ms. 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 On the other hand, Lyme antibody testing is quite sensitive, and she tested negative, apparently several months after the rash; this goes fairly strongly against Lyme. Her current symptoms are quite nonspecific, and she has not had anything that would be compelling, such as significant joint effusions. At this point, we think the best option would jannet treat her with doxycycline for three weeks, and we faxed in a prescription. We also repeated a Lyme antibody test today. We explained to Ms. Hancock that if she does not feel better after treatment, this would not be an indication for more prolonged treatment (including with a parenteral drug). We also touched on many of the myths surrounding chronic Lyme that circulate on the internet, and leger ggested that she contact us if she has questions or concerns. I spent a total of 60 minutes of [id number] time with the patient, 35 minutes of which were spentin counseling her about Lyme disease. documented in this encounter Miscellaneous Notes * Addendum Note - Emiliana Bass MD - 08/29/2013 5:17 PM ESTAddended by: EMILIANA BASS on: 08/29/2013 05:17 PM Modules accepted: Level of Service * Addendum Note - Joanna Koroma - 08/29/2013 11:23 AM ESTAddended by: JOANNA KOROMA on: 08/29/2013 11:23 AM Modules accepted: Orders documented in this encounter Plan of Treatment Upcoming Encounters Date Type Department Care Team (Late st Contact Info) Description 06/21/2024 3:00 PM EST Appointment [place] [address] [address] HEMATOLOGY AND ONCOLOGY [place], [place] [id number] 06/24/2024 2:30 PM EST Office Visit Hematology/Oncology at [address] [phone] Osvaldo Hatch MD [facility] DR HEMAT[place] [address] [address] HEMATOLOGY AND ONCOLOGY [place], [place] [address] documented as of this encounter Procedures Procedure Name Priority Date/Time Associated Diagnosis Comments LYME IGG & IGM ANTIBODY Routine 08/29/2013 11:32 AM EST Throat pain documented in this encounter Results * Lyme IgG & IgM Antibody (08/29/2013 11:32 AM EST) Lyme Antibody Neg Neg [facility]RADA Blood specimen (specimen) 08/29/2013 11:32 AM EST 08/30/2013 7:49 AM EST Narrative Resulting Agency Comment Spec In Lab Emiliana Bass MD IMMUNOLOGY ORDERABL ES [facility] documented in this encounter Visit Diagnoses Diagnosis Throat pain- Primary documented in this encounter Care Teams Patient Day Coordinator Relationship Specialty Start Date End Date Nyasia Pedro DO PCP - General 08/29/13 06/26/23 documented as of this encounter
--- OUTSIDE RECORDS SUMMARY | 2024-05-28 11:43 | XMS_ITS | Encounter Summary ---
[place] [address] Care Team Providers Care Steel Fabricator Name Role Phone Nyasia Pedro DO Primary Care Provider Unava ilable Reason for Visit * Diagnostic Test (Routine) - Closed Specialty Diagnoses / Procedures Referred By Contac t Referred To Contact Radiology Diagnoses Traumatic injury of head, initial encounter Lung mass CSF rhinorrhea Bilateral headaches Procedures NM PET CT Standard Plus Head and Neck NM PET CT Skull Base to Mid-thigh Uli Hammond PA [address] [place] [address] [place] [address] Referral ID Status Reason Start Date Expiration Date V isits Requested Visits Authorized [id number] Closed Specialty Service Requested 01/18/2022 07/21/2023 1 1 Encounter Details Date Type Department Care Team (Late st Contact Info) Description 01/31/2022 11:25 AM EDT Hospital Encounter [place] [address] Uli Hammond PA [address] [place] [address] Traumatic injury of head, initial encounter; Lung mass; CSF rhinorrhea; Bilateral headaches Discharge Disposition: Home Social History Tobacco Use [...] by mouth 2 times daily (with meals). buPROPion SR (Wellbutrin SR) 150 mg tablet sustained-release 12 hr Take 150 mg by mouth every morning. 10/12/2021 10/16/2023 fluticasone propionate (Flonase) 50 mcg/actuation [place], Suspension SHAKE LIQUID AND USE 1 SPRAY IN EACH NOSTRIL AT BEDTIME 01/18/2022 11/01/2023 cyclobenzaprine (FLEXERIL) 10 mg Tablet Take 10 [...] 3:00 PM EST Appointment [place] [address] HEMATOLOGY AND ONCOLOGY [place], [place] [phone] 06/24/2024 2:30 PM EST Office Visit Hematology/Oncology at [address] [phone] [facility] [address] HEMATOLOGY [place] [address] [address] HEMATOLOGY AND ONCOLOGY [place], [place] [id number] documented as of this encounter Procedures Procedure Name Priority Date/Time Associated Diagnosis Comments NM PET CT STANDARD PLUS HEAD AND NECK Routine 01/31/2022 1:07 PM EDT Traumatic injury of head, initial encounter Lung mass CSF rhinorrhea Bilateral headaches documented in this encounter Results * NM PET CT Standard Plus Head and Neck (01/31/2022 1:07 PM EDT) Anatomical Region Laterality Modality Positron Emissio n Tomography (PET) Impressions 02/01/2022 11:08 AM EDT 1. ??FDG avid 5.5 cm RIGHT upper lobe mass, highly suspicious for primary lung malignancy. 2. ??No regional or distant sites of metastasis. 3. ??CT visualized subcentimeter opacity at the posterior margin of the right lower lobe, similar in size compared to CT of 10/12/2016, strongly favoring a benign etiology. I have personally reviewed the image(s) and the resident's interpretation and agree with the findings, Alexey Zamarripa MD at 02/01/2022 11:08 AM Thank you for letting us participate in the care of this patient. ??If you are a health care provider and have any questions regarding this report, please contact the number below. ??For patients who have questions please contact the health day care supervisor that requested your imaging first. ? Narrative 02/01/2022 11:08 AM EDT EXAMINATION: NM PET CT STANDARD PLUS HEAD AND NECK CLINICAL HISTORY: Lung mass seen on CT, worsening cough, congestion TECHNIQUE: Following IV injection of 95-gduvzz-2-deoxyglucose (FDG) a standard uptake of approximately 60 minutes, a noncontrast CT scan followed by a PET scan were acquired from the top of head to mid thighs. The noncontrast CT was used for anatomic localization and photon attenuation correction of the PET scan. Blood glucose level: 99 (mg/dL) FDG dose: 7.7 mCi COMPARISON: CT chest 10/12/2016 and chest radiograph 01/27/2017 FINDINGS: HEAD/NECK: Normal activity in all soft tissue regions. No significant adenopathy. CHEST: FDG avid 4.4 x 5.5 cm RIGHT upper lobe mass, contiguous with and displacing the right minor fissure. This lesion is increased from 14 x [address] of 10/03/2016. Non-FDG avid post obstructive atelectasis in the anterior right upper lobe. CT visualized subcentimeter subpleural at the posterior margin of the right lower lobe (axial image 151), MR in size compared to remote CT of 10/12/2016. No lymphadenopathy. Coronary and aortic calcifications present. ABDOMEN/PELVIS: Normal activity in all soft tissue regions. No lymphadenopathy. SKELETON/EXTREMITIES: Normal activity in all regions of the axial and visualized appendicular skeleton. Procedure Note Alexey Zamarripa MD - 02/01/2022 EXAMINATION: SC PET CT STANDARD PLUS HEAD AND NECK CLINICAL HISTORY: Lung mass seen on CT, worsening cough, congestion TECHNIQUE: Following IV injection of 79-hhaypd-9-deoxyglucose (FDG) astandard uptake of approximately 60 minutes, a noncontrast CT scan followed by aPET scan were acquired from the top of head to mid thighs. The noncontrast CT wasused for anatomic localization and photon attenuation correction of the PETscan. Blood glucose level: 99 (mg/dL) FDG dose: 7.7 mCi COMPARISON: CT chest 10/12/2016 and chest radiograph 01/27/2017 FINDINGS: HEAD/NECK: Normal activity in all soft tissue regions. No significant adenopathy. CHEST: FDG avid 4.4 x 5.5 cm RIGHT upper lobe mass, contiguous with anddisplacing the right minor fissure. This lesion is increased from 14 x 13 mm on prior CTof 10/03/2016. Non-FDG avid post obstructive atelectasis in the anterior rightupper lobe. CT visualized subcentimeter subpleural at the posterior margin of theright lower lobe (axial image 151), MR in size compared to remote CT of10/12/2016. No lymphadenopathy. Coronary and aortic calcifications present. ABDOMEN/PELVIS: Normal activity in all soft tissue regions. No lymphadenopathy. SKELETON/EXTREMITIES: Normal activity in all regions of the axial and visualized appendicular skeleton. IMPRESSION 1. FDG avid 5.5 cm RIGHT upper lobe mass, highly suspicious for primarylung malignancy. 2. No regional or distant sites of metastasis. 3. CT visualized subcentimeter opacity at the posterior margin of theright lower lobe, similar in size compared to CT of 10/12/2016, strongly favoringa benign etiology. I have personally reviewed the image(s) and the resident's interpretationand agree with the findings, Alexey Zamarripa MD at 02/01/2022 11:08 AM Thank you for letting us participate in the care of this patient. If youare a health care provider and have any questions regarding this report,please contact the number below. For patients who have questions please contactthe health day care supervisor that requested your imaging first. Uli GARCIA IMG PET ORDERABLES documented in this encounter Visit Diagnoses Diagnosis Traumatic injury of head, initial encounter Lung mass Swelling, mass, or lump in chest CSF rhinorrhea Cerebrospinal fluid rhinorrhea Bilateral headaches Headache documented in this encounter Administered Medications Inactive Administered Medications - up to 3 most recent administrations Medication Order MAR Action Action Date Dose Rate Site fludeoxyglucose (F-18) FDG injection 0-20 mCi 0-20 mCi, Intravenous, ONCE PRN, 1 dose, Starting on Mon01/31/22 at 1155, Until Mon01/31/22 at 1152, Per Protocol, Radiology Contrast, Routine Given 01/31/2022 11:52 AM EDT 7.7 mCi documented in this encounter Care Teams Steel Fabricator Relationship Specialty Start Date End Date Nyasia Pedro DO PCP - General 08/29/13 06/26/23 documented as of this encounter
--- OUTSIDE RECORDS SUMMARY | 2024-05-28 11:43 | XMS_ITS ---
Author Organization [facility] Address [address] [place] [address] Care Team Providers Care Plasma Table Operator Name Role Phone None, Provider Primary Care Provider Unavailabl e Active Problems Problem Noted Date Diagnosed Date Primary cancer of right upper lobe of lung (HCC- CMS) 04/17/2023 Cancer Staging:Clinical: cT4, cN2 - Unsigned Lung mass 02/13/2023 Current Oncology Plans PEMETREXED + CARBOPLATIN (AUC 5)* Plan Start Date:07/13/2023 Plan Provider:Sarahi Hyatt MD Linked Problems Primary cancer of right uppe r lobe of lung (HCC-CMS) Treatment Medications Current Day (Day 1 , Cycle 1 - Planned for 09/13/2023) Next Day (Day 1, Cycle 2 - Planned for 10/04/2023) CARBOplatin (PARAPLATIN) chemo infusion (by AUC)fosaprepitant (EMEND) IVPB 150 mgpemetrexed (ALIMTA) chemo infusion CARBOplatin (PARAPLATIN) in dextrose 5% (D5W) 150 mL chemo infusionfosaprepitant (EMEND) 150 mg in sodium chloride (NS) 0.9 % 150 mL infusionPEMEtrexed disodium (ALIMTA) 636 mg in sodium chloride (NS) 0.9 % 100 mL chemo infusion CARBOplatin (PARAPLATIN) in dextrose 5% (D5W) 150 mL chemo infusionFOSAPREPITANT IVPB 150 MGPEMEtrexed disodium (ALIMTA) 636 mg in sodium chloride (NS) 0.9 % 100 mL chemo infusion Past Plans No past plan information found. Radiation Treatments * No radiation treatments are documented for this patient in [facility]. Treatments may have been administered in another system.
--- OUTSIDE RECORDS SUMMARY | 2024-05-28 11:43 | XMS_ITS | Referral Summary ---
Author Organization [facility] Address [address] [place] [address] Care Team Providers Care Meter Record Clerk Name Role Phone None, Provider Primary Care Provider Unavailabl e Encounters Date Type Department Care Team Description 03/15/2024 Telephone [facility] Pulmonology & Critical Care - [facility] [address] [place] [address] Tex Colvin MD Appointment Related from Last 3 Months Allergies Active Allergy Reactions Criticality Noted Date Comments Other - See Comments 03/10/2023 All Narcotics Medications ALBUTEROL INHL Inhale as directed. Active naproxen sodium (ALEVE ORAL) Take by mouth. Active albuterol (ACCUNEB) 1.25 mg/3 mL nebulizer solution Inhale 3 mL as directed 3 times daily. Active Cholecalciferol, Vitamin D3, 10 mcg (400 unit) tablet Take 1 Tablet by mouth daily. Active ascorbic acid, vitamin C, (VITAMIN C) 500 mg tablet Take 1 Tablet by mouth daily. Active ZINC ORAL Take 50 mcg by mouth. Active ephedrine sulfate (BRONKAID MAX ORAL) Take by mouth. Active ondansetron (ZOFRAN-ODT) 4 mg disintegrating tablet Take 1-2 Tablets by mouth every 8 hours as needed for Nausea. Wait to start until >48 hours after chemo. 10 Tablet 2 4 Active prochlorperazine (COMPAZINE) 10 mg tablet Take 1 Tablet by mouth every 6 hours as needed for Nausea. 30 Tablet 1 4 Active dexAMETHasone (DECADRON) 4 mg tablet Take 1 tablet by mouth twice daily on day before and day after treatment. Take 4 mg daily on day 3 and day 4 then stop. Repeat with each chemo cycle. 24 Tablet 4 Active folic acid (FOLVITE) 400 mcg tablet Take 1 Tablet by mouth daily. 30 Tablet 2 4 Active polyethylene glycol 3350 (MIRALAX) 17 gram packet Take 17 g by mouth daily. 5 Packet 4 Active amoxicillin-clavula emma (AUGMENTIN) 875-125 mg per tablet Take 1 Tablet by mouth every 12 hours. 14 Tablet 4 Active Active Problems Problem Noted Date Diagnosed Date Primary cancer of right upper lobe of lung (HCC- CMS) 04/17/2023 Cancer Staging:Clinical: cT4, cN2 - Unsigned Lung mass 02/13/2023 Social History Tobacco Use Types Packs/Day Years Used Date Smoking Tobacco: Every Day Cigarettes 1 26 Smokeless Tobacco: Never Alcohol Use Standard Drinks/Week Comments Yes 0 (1 standard drink = 0.6 oz pur e alcohol) occ Comments Unknown Sex and Gender Information Value Date Recorded Sex Assigned at Not on file Legal Sex Female 18:41 EST Gender Identity Female 02/08/2023 13:30 EDT Sexual Orientation Not on file Last Filed Vital Signs Vital Sign Reading Time Taken Comments Blood Pressure 121/71 04/17/2023 1453 EDT Pulse 104 04/17/2023 145 EDT Temperature 36.6 ??C (97.8 ??F) 04/17/2023 1453 EDT Respiratory Rate 16 04/17/2023 1453 EDT Oxygen Saturation 95% 04/17/2023 1453 EDT Inhaled Oxygen Concentration - - Weight 54.4 kg (120 lb) 04/17/2023 1453 EDT Height 167.6 cm (5' 6) 03/10/2023 1103 EDT Body Mass Index 19.37 03/10/2023 1103 EDT Functional Status * Because of a physical, mental, or emotional condition, does this person have difficulty doing errands alone such as visiting a doctor's office or shopping? Answer Date of Assessment Author No 12/26/2022 14:52 EDT Mental Status * Because of a physical, mental, or emotional condition, does this person have serious difficulty concentrating, remembering, or making decisions? Answer Entry Date Author No 12/26/2022 14:52 EDT Plan of Treatment Not on file Insurance MEDICAID [place] Care Teams Meter Record Clerk Relationship Specialty Start Date End Date None, Provider PCP - General 06/19/23
--- OUTSIDE RECORDS SUMMARY | 2024-05-28 11:43 | XMS_ITS | Encounter Summary ---
Author Organization [facility] Address [facility] [place] [address] Care Team Providers Care Dried Fruit Washer Name Role Phone Unknown Primary Care Provider Unavailabl e Reason for Visit * Reason Onset Date Comments Breathing Problem 10/30/2023 Encounter Details Date Type Department Care Team (Late st Contact Info) Description 10/30/2023 Telephone Hematology/Oncology at [address] [phone] Diana Yanez RN Breathing Problem Social History Tobacco Use Types Packs/Day Years Used Date Smoking Tobacco: Every Day Cigarettes Smokeless Tobacco: Never [facility] Utilities Answer Date Recorded In the [...] Telephone Encounter - Diana Yanez RN - 10/30/2023 1:18 PM EDT Caller: Nakita Relationship: Self Clarified Two Patient Identifiers: [x] Diagnosis:lung cancer Treatment: has not started Reason for Call:short of breath unable to go to work, inhalers not working Assessment: pt states she is sob and coughing all the time, Dr. Maciel put her on prednisone 40 mga day from 10/23-10/27, it did not help, she has no fever but is bringing up green sputum, her back hurts from coughing so much. None of her rescue inhalers are working she used combivent in the past and felt that worked. She has been on doxycycline and amoxicillin with no help. Recommendations/Plan: Reviewed with Dr. Hatch. He states the big mass in her lung is probably causing this and the best thing will be to start chemotherapy which is happening this 10/31. He is happy to try an antibiotic and combibent inhaler but does not think it will help. Pt would like those called in to her pharmacy. Dr. Hatch agrees. Nakita verbalized understanding of instructions and agreement with plan. Reminded Nakita to call back with any questions/concerns. Select Specific Decision Support Tool Used: None available, provider to review Name of Guideline/Protocol Used: Dr. Hatch documented in this encounter Plan of Treatment Upcoming Encounters Date Type Department Care Team (Late st Contact Info) Description 06/21/2024 3:00 PM EST Appointment [place] [address] [address] HEMATOLOGY AND ONCOLOGY [place], [place] [phone] 06/24/2024 2:30 PM EST Office Visit Hematology/Oncology at [address] [phone] Osvaldo Hatch MD [facility] DR HEMATOLOGY [place] [address] [address] HEMATOLOGY AND ONCOLOGY [place], [place] [phone] documented as of this encounter Visit Diagnoses Not on filedocumented in this encounter Care Teams Dried Fruit Washer Relationship Specialty Start Date End Date Unknown None PCP - General 06/27/23 documented as of this encounter
--- OUTSIDE RECORDS SUMMARY | 2024-05-28 11:43 | XMS_ITS | Encounter Summary ---
[place] [address] Care Team Providers Care Client Relation Specialist Name Role Phone Unknown Primary Care Provider Unavailabl e Reason for Referral * Diagnostic Test (Routine) - Authorized Specialty Diagnoses / Procedures Referred By Contac t Referred To Contact Radiology Diagnoses Primary malignant neoplasm of right upper lobe of lung Procedures MRI Brain wwo Contrast (Generic) Osvaldo Hatch MD [facility] HEMATOLOGY [place] [address] Referral ID Status Reason Start Date Expiration Date Visits Requested Visits Authorized [id number] Authorized Specialty Service Requested 10/16/2023 04/16/2025 1 1 * Diagnostic Test (Routine) - Closed Specialty Diagnoses / Procedures Referred By Contac t Referred To Contact Radiology Diagnoses Primary malignant neoplasm of right upper lobe of lung Procedures NM [facility] PET CT Skull Base to Mid-thigh Osvaldo Hatch MD [facility] HEMATOLOGY [place] [address] [facility] [place] [address] Referral ID Status Reason Start Date Expiration Date V isits Requested Visits Authorized [id number] Closed Specialty Service Requested 10/16/2023 04/16/2025 1 1 Reason for Visit * Consultation (Routine) - Closed Specialty Diagnoses / Procedures Referred By Contac t Referred To Contact Hematology and Oncology Diagnoses Malignant neoplasm of upper lobe, right bronchus or lung Sarahi Hyatt MD [address] [place] [address], Level [address] [place] [address] St[facility] Hem Onc Office [address] [place] [phone] Referral ID Status Reason Start Date Expiration Date V isits Requested Visits Authorized [id number] Closed Consult, Test & Treat 09/27/2023 09/26/2024 1 1 Encounter Details Date Type Department Care Team (Late st Contact Info) Description 10/16/2023 3:30 PM EDT Office Visit Hematology/Oncology at [address] [phone] Osvaldo Hatch MD [facility] [address] [place] [address] Primary malignant neoplasm of right upper lobe of lung (Primary Dx) Social History Tobacco Use Types Packs/Day Years Used Date Smoking Tobacco: Every Day Cigarettes Smokeless Tobacco: Never Tobacco Cessation:Ready to Q uit: Not Asked; Counseling Given: Not Answered [facility] Utilities Answer Date Recorded In the past 12 months has th e [employer], gas, oil, or water [employer] threatened to shut off services in your [...] Sign Reading Time Taken Comments Blood Pressure 123/68 10/16/2023 3:46 PM EDT Pulse 103 10/16/2023 3:46 PM EDT Temperature 36.3 ??C (97.3 ??F) 10/16/2023 3:46 PM ED T Respiratory Rate 20 10/16/2023 3:46 PM EDT Oxygen Saturation 97% 10/16/2023 3:46 PM EDT Inhaled Oxygen Concentration - - Weight 55.9 kg (123 lb 3.2 oz) 10/16/2023 3:46 P M EDT Height 168 cm (5' 6.14) 10/16/2023 3:46 PM EDT Body Mass Index 19.8 10/16/2023 3:46 PM EDT documented in this encounter Progress Notes * Osvaldo Hatch MD - 10/16/2023 3:30 PM EDT Images from the original note were not included. Thoracic Oncology [facility] [place] [address] [phone] Nakita Hancock is being seen for the [...] would like to consider additional treatment options. She is connected with [facility] and was scheduled for carboplatin and pemetrexed though opted not to initiate that thus far. We reviewed in detail her prior workup the diagnosis, pathology results, imaging findings, tumor staging and the implications of this information on the prognosis and the available treatment options. I explained this is an incurable malignancy where systemic treatment is the mainstay. I discussed the need to consider treatment within the context of potential risks and side effects of treatment aswell as individual goals and preferences regarding quality of life. She is understandably concerned about the toxicities of any cancer directed therapy on her body andnotes that has someone with great expertise in herbal remedies she is really troubled by this aspect of any cancer treatment. At the same time she recognizes that her cancer seems to be growing and causing more symptoms. She is quite worried about the life-threatening nature of this cancer in particular its impact on her and her family specifically her 15-year-old daughter Oliva. Discussed the situation at length. Explained that she does not have to pursue treatment if she doesnot wish but I would definitely recommend relatively prompt initiation of systemic therapy in hopesthat we can palliate some of her symptoms and prevent further spread. To really optimally treat herwe will need to repeat some of the imaging that she has had since it has been 5 months since she had any staging. We discussed the potential side effects of systemic therapy including fatigue, hair loss, nausea/vomiting, bowel changes, taste changes, mouth sores, neuropathy, myelosuppression with an increase risk of serious infections, need for blood transfusions, organ injury, rashes allergic reactions and immune mediated toxicities among others. Explained that they may stop treatment at any time and they do not have to pursue any treatment if they do not wish to. The patient expressed that they would like to proceed with treatment. Plan: - PET scan and MRI brain [place] - In reviewing the [facility] records everywhere I do not see any NexGen sequencing for molecular analysis. 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 CC: Sarahi Rosario MD HPI/Interval History/Subjective: Nakita Hancock is a 57 y.o. female patient with a past medical history significant for long-term tobacco use, PTSD, gluten sensitivity originally noted to have 11 mm right upper lobe nodule on a CTscan in September 2016 that was obtained to rule out a pulmonary embolus. A referral has been made at that time for consultation with thoracic surgery. She did not attend that visit. In [address] scan demonstrated that the lesion had grown to 5.3 cm. At that time she met with thoracic surgery at [facility]. For evaluation with staging EBUS was planned. She did not come to the visit. She was also referred to medical oncology at that time but did not come. Multiple telephone calls were made and letters sent in hopes that she might reschedule. She ultimately connected with [facility] pulmonary medical oncology andunderwent additional evaluation with her last imaging and we will follow-up 2022. She underwent a bronchoscopy on 02/2523 which identified a adenocarcinoma of lung origin from the right upper lobe. Treatment was planned for a T4 N2 adenocarcinoma of the right upper lobe with systemic therapy to be followed by possible radiation per my review of the records but she indicates that she did not start the treatment given concern for the damage that chemotherapy would do to her body. She is well versed in verbal and naturopathic remedies and has been trying these but acknowledges that it does not seem like they have been effective. She is starting to have pain in the right rib cage and back and feels that she needs to consider treatment at this point. She is very concerned about her ability to support her 15-year-old daughter oliva lives with her. She has some cough though she also wonders if this is possibly related to seasonal allergies. She has lost significant weight and attributes much of this due to stress. Her son Annette is her primary emergency contact and is aware of the current situation Social History/Support Network: Home situation: Single parent. 15 year old daughter- Oliva. Originally from [place]. 25 year old son Annette is her emergency contact. Employment: [employer] Tobacco use: 1 pack/day smoking history for many years Alcohol use: Drug use: Financial Distress: Social Determinants of Health Financial Resource Strain: Not on file Food Insecurity: Not on file Transportation Needs: Not on file Physical Activity: Not on file Housing Stability: Not on file Intimate Partner Violence: Not on file Utilities: Not on file Family History: Mother- Dscd ovarian cancer and bladder cancer by report Father- Dscd And maternal grandfather had lung cancer A daughter had leukemia (sounds like APML) and was cured by systemic therapy. Family History Problem Relation Age of Onset Arthritis Maternal Grandmother Oncology Overview: Screen shot from Dr. Rosario's records at [facility] In progress Presentation: Nakita Hancock is [...] time she met with thoracic surgery at [facility]. For evaluation with staging EBUS was planned. She did not come to the visit. She was also referred to medical oncology at that time but did not come. Multiple telephone calls were made and letters sent in hopes that she might reschedule. She ultimately connected with [facility] pulmonary medical oncology and underwent additional [...] of 10/12/2016, strongly favoring a benign etiology. 7. PET scan ([facility]) 1. The large primary mass in [...] metastasis. No evidence of abdominopelvic jewels disease. 8. Bronchoscopy EBUS-TBNA 04/14/23 MRI Abdomen IMPRESSION Mild [...] represent metastatic disease and the plan at [facility] was for systemic therapy followed by consolidative radiation Pathology: S Molecular Data: NA Treatment Course: No data to display Patient Active Problem List Diagnosis Date Noted Mass of upper lobe of right lung [...] Exam: Wt Readings from Last 3 Encounters: 02/10/22 57.5 kg (126 lb 12.8 oz) 04/13/16 52.6 kg (116 lb) 07/06/11 57.4 kg (126 lb 8 oz) Temp Readings from Last 3 Encounters: 02/10/22 37.2 ??C (99 ??F) (Temporal) 07/06/11 36.5 ??C (97.7 ??F) (Oral) BP Readings from Last 3 Encounters: 02/10/22 (!) 123/98 04/13/16 131/83 07/06/11 (!) 142/96 Pulse Readings from Last 3 Encounters: 02/10/22 (!) 108 07/06/11 103 There is no height or weight on file to calculate BSA. Wt Readings from Last 3 Encounters: 02/10/22 57.5 kg (126 lb 12.8 oz) 04/13/16 52.6 kg (116 lb) 07/06/11 57.4 kg (126 lb 8 oz) KPS Score ECOG Grade Definition 90-100 [...] Judgment: Judgment normal. Review of Laboratory Data: Last 5 CBC No results for input(s): WBC, HGB, MCV, PLATELET, NEUTROABS in the last 7068 hours. Last 5 Lytes No results for input(s): NA, K, CL, CO2, BUN, CREATININE in the last 7068 hours. Last 5 LFTs No results for input(s): AST, ALT, ALKPHOS, BILITOT, BILIDIR in the last 7068hours. Last 5 Ca, Mg, Phos No results for input(s): CALCIUM, PHOS, MAGNESIUM in the last 7068 hours. Last 3 Coags No results for input(s): PT, INR, PTT in the last 7068 hours. Last 3 TFT No results for input(s): TSH in the last 7068 hours. Invalid input(s): T4, FT4 No results found for this or any previous visit (from the past 72 hour(s)). Review of Imaging Data: I personally reviewed the reports and images in the studies as detailed in the oncology overview above. Review of Pathology Data: I personally reviewed the reports of the pathology as detailed in the oncology overview above. * Simin Jung RN - 10/16/2023 3:30 PM EDT [facility] New Patient Medical Oncology Note SOCIAL ASSESSMENT: See ED social assessment information entered. 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 Rx insurance? [ X] yes [ ] no Local Pharmacy: Saw in [facility] FUNCTIONAL SCREENING: Balance difficulty: [ X ]no [ ]yes At risk for fall: [X ] no [ ] yes If yes, actions implemented to prevent fall. Patient/family instructed to avoid independent ambulation. Use wheelchair and ask for assistance of staff while in the clinic. ADL [ X ] no limits [ ] needs dressing assistance [ ] needs meal assistance Assistive device:[ X ]none [ ]cane [ ]walker [ ]wheelchair [ ]other: explain PAIN ASSESSMENT: [ 9] out of 10 Location: Neck, Shoulders, Back Description: [ ] Dull [ ] Sharp [ ] Burning [ ] Throbbing [ X ] Radiating [ ] Continuous [ X ] Intermittent Aggravating Factors: [ ] Movement [ ] Position [ ] Immobility [ ] Other Alleviating Factors: [ X ] Medication [ ] Positioning [ ] Other Current Pain Management Plan: [ X ] Satisfied [ ] Not satisfied LEARNING STYLE: Learning Needs Assessment up to date (yearly) [ X ] TEACHING: Not sure if she is getting chemo yet __ NCI ???Chemotherapy and You?? and folder given __ Specific chemotherapy literature provided and reviewed with patient VASCULAR ACCESS ASSESSMENT: getting chemo? [ ]yes [ ]no Need port? [ ] yes [ ] no documented in this encounter Plan of Treatment Upcoming Encounters Date Type Department Care Team (Late st Contact Info) Description 06/21/2024 3:00 PM EST Appointment [place] [address] [address] HEMATOLOGY AND ONCOLOGY [place], [place] [phone] 06/24/2024 2:30 PM EST Office Visit Hematology/Oncology at [address] [phone] Osvaldo Hatch MD [facility] DR HEMATOLOGY [place] [address] [address] HEMATOLOGY AND ONCOLOGY [place], [place] [id number] Scheduled Orders Name Type Priority Associated Diagnoses Orde r Schedule MRI Brain wwo Contrast (Generic) Imaging Routine Primary malignant neoplasm of right upper lobe of lung Expected: 10/30/2023 (Approximate), Expires: 04/30/2024 Magnesium Lab STAT Primary malignant neoplasm of right upper lobe of lung Once a week for 48 Occurrences starting 10/16/2023 until 10/15/2024 Comprehensive metabolic panel (non-fasting) Lab STAT Primary malignant neoplasm of right upper lobe of lung Once a week for 48 Occurrences starting 10/16/2023 until 10/15/2024 CBC (with Diff) Lab STAT Primary malignant neoplasm of right upper lobe of lung Once a week for 48 Occurrences starting 10/16/2023 until 10/15/2024 TSH Lab Routine Primary malignant neoplasm of right upper lobe of lung Every 3 weeks for 24 Occurrences starting 10/16/2023 until 10/15/2024 T4, free Lab Routine Primary malignant neoplasm of right upper lobe of lung Every 3 weeks for 24 Occurrences starting 10/16/2023 until 10/15/2024 documented as of this encounter Results * NM Powell PET CT Skull Base to Mid-thigh (10/27/2023 2:00 PM EDT) Anatomical Region Laterality Modality Positron Emissio n Tomography (PET) Impressions 10/31/2023 3:29 PM EDT 1. ??Right upper lobe centrally necrotic mass extending into the right hilum is consistent with the diagnosis of lung malignancy. 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 2. ??No mediastinal lymphadenopathy identified. 3. ??No adrenal metastases identified. 4. ??New 9 mm right middle lobe metastasis. 5. ??New right femoral neck metastasis. No CT correlate. Thank you for letting us participate in the care of this patient. ??If you are a health care provider and have any questions regarding this report, please contact the number below. ??For patients who have questions please contact the health primary care nurse that requested your imaging first. ? Electronically signed by: Heath Amos MD, [facility] ([phone]), at 10/31/2023 3:29 PM Narrative 10/31/2023 3:29 PM EDT EXAMINATION: [facility] PET CT SKULL BASE TO MID-THIGH CLINICAL HISTORY: Non-small cell lung cancer, assess treatment response 57 yo wit locally advanced lung cancer. ??No interval treatment. ??Restaging C34.11, Malignant neoplasm of upper lobe, right bronchus or lung TECHNIQUE: Following IV injection of 80-anhnon-1-deoxyglucose (FDG) a standard uptake of approximately 60 minutes, a noncontrast CT scan followed by a PET scan were acquired from the base of the skull to mid thighs. The noncontrast CT was used for anatomic localization and photon attenuation correction of the PET scan. Blood glucose level: 129 (mg/dL) FDG dose: 10 mCi COMPARISON: FDG PET/CT January 31, 2022 FINDINGS: HEAD/NECK: Normal activity in all soft tissue regions of the neck and visualized lower head. There is unchanged calcification in the left thyroid lobe. CHEST: There is a hypermetabolic lobular and spiculated mass in the right upper lobe. This mass tethers the anterior pleura which is mildly thickened (image 74). The mass is contiguous with the right hilum. There is no distinctly separate mediastinal lymphadenopathy. This mass is measured at approximately 8.6 cm in its longest axial dimension, unchanged from the prior study. Central areas of photopenia are present. A 9 mm right middle lobe nodule has increased in size from the previous 5 mm and is now FDG avid (image 128). Thickened septal lines are present at the apex of the right upper lobe. There are scattered groundglass opacity superior to the right upper lobe mass. Coronary artery calcification. ABDOMEN/PELVIS: Normal activity in all soft tissue regions. No abnormal adrenal activity is present. SKELETON/EXTREMITIES: There is a new focus of increased activity in the right femoral neck without a CT correlate (image 241). Procedure Note Heath Amos MD - 10/31/2023 EXAMINATION: [facility] PET CT SKULL BASE TO MID-THIGH CLINICAL HISTORY: Non-small cell lung cancer, assess treatment response 57 yo wit locally advanced lung cancer. No interval treatment.Restaging C34.11, Malignant neoplasm of upper lobe, right bronchus or lung TECHNIQUE: Following IV injection of 54-bgirtg-8-deoxyglucose (FDG) astandard uptake of approximately 60 minutes, a noncontrast CT scan followed by aPET scan were acquired from the base of the skull to mid thighs. The noncontrast CTwas used for anatomic localization and photon attenuation correction of thePET scan. Blood glucose level: 129 (mg/dL) FDG dose: 10 mCi COMPARISON: FDG PET/CT January 31, 2022 FINDINGS: HEAD/NECK: Normal activity in all soft tissue regions of the neck and visualizedlower head. There is unchanged calcification in the left thyroid lobe. CHEST: There is a hypermetabolic lobular and spiculated mass in the right upperlobe. This mass tethers the anterior pleura which is mildly thickened (image74). The mass is contiguous with the right hilum. There is no distinctly separate mediastinal lymphadenopathy. This mass is measured at approximately 8.6 cmin its longest axial dimension, unchanged from the prior study. Central areasof photopenia are present. A 9 mm right middle lobe nodule has increased in size from the previous 5mm and is now FDG avid (image 128). Thickened septal lines are present at the apex of the right upper lobe.There are scattered groundglass opacity superior to the right upper lobe mass. Coronary artery calcification. ABDOMEN/PELVIS: Normal activity in all soft tissue regions. No abnormal adrenal activityis present. SKELETON/EXTREMITIES: There is a new focus of increased activity in the right femoral neckwithout a CT correlate (image 241). IMPRESSION 1. Right upper lobe centrally necrotic mass extending into the righthilum is consistent with the diagnosis of lung malignancy. 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 2. No mediastinal lymphadenopathy identified. 3. No adrenal metastases identified. 4. New 9 mm right middle lobe metastasis. 5. New right femoral neck metastasis. No CT correlate. Thank you for letting us participate in the care of this patient. If youare a health care provider and have any questions regarding this report,please contact the number below. For patients who have questions please contactthe health primary care nurse that requested your imaging first. Electronically signed by: Heath Amos MD, [facility]([phone]), at 10/31/2023 3:29 PM Osvaldo Hatch MD IMG PET ORDERABLES documented in this encounter Visit Diagnoses Diagnosis Primary malignant neoplasm of right upper lobe of lung- Primary Malignant neoplasm of upper lobe, bronchus or lung Primary malignant neoplasm of right upper lobe of lung Malignant neoplasm of upper lobe, bronchus or lung documented in this encounter Care Teams Client Relation Specialist Relationship Specialty Start Date End Date Unknown None PCP - General 06/27/23 documented as of this encounter
--- OUTSIDE RECORDS SUMMARY | 2024-05-28 11:43 | XMS_ITS | Encounter Summary ---
Author Organization [facility] [place] [address] Care Team Providers Care Executive Director Of Marketing Name Role Phone Nyasia Pedro DO Primary Care Provider Liseth ilarabella Encounter Details Date Type Department Care Team (Late Contact Info) Description 02/11/2022 Orders Only Hematology [place] [phone] Osvaldo Hatch MD [facility] [address] [place] [address] Mass of upper lobe of right lung Social History Tobacco Use Types Packs/Day Years Used Date Smoking Tobacco: Every Day Cigarettes Smokeless Tobacco: Never Comments:last cigarrete on 0 02/07/22 Sex and Gender Information Value Date Recorded Sex Assigned at Not on file Gender Identity Not on file Sexual Orientation Not on file documented as of this encounter Plan of Treatment Upcoming Encounters Date Type Department Care Team (Late Contact Info) Description 06/21/2024 3:00 PM EST Appointment [place] [phone] Dana Nevarez APRN [address] [place] [address] DR HEMATOLOGY AND ONCOLOGY [place], [place] [phone] 06/24/2024 2:30 PM EST Office Visit Hematology/Oncology at [address] [phone] Osvaldo Hatch MD [facility] DR [place] [address] Dana Nevarez APRN [address] [place] [address] [place] [address] documented as of this encounter Visit Diagnoses Diagnosis Mass of upper lobe of right lung documented in this encounter Care Teams Executive Director Of Marketing Relationship Specialty Start Date End Date Nyasia Pedro DO PCP - General 08/29/13 06/26/23 documented as of this encounter
--- OUTSIDE RECORDS SUMMARY | 2024-05-28 11:43 | XMS_ITS | Encounter Summary ---
Author Organization [facility] [place] [address] Care Team Providers Care Auto Brake Mechanic Name Role Phone Unknown Primary Care Provider Unavailabl e Reason for Visit * Reason Onset Date Comments Other 10/18/2023 Initial outreach Encounter Details Date Type Department Care Team (Late st Contact Info) Description 10/18/2023 Telephone Hematology/Oncology at [address] [phone] Michelle Marsh, STEEL CUTTER OFFICE OF CARE MANAGEMENT Other (Initial outreach) Social History Tobacco Use Types Packs/Day Years [...] Notes * Telephone Encounter - Michelle Marsh, STEEL CUTTER - 10/18/2023 10:29 AM EDT Request from Dr. Hatch to reach out to Sony due to multiple stressors she has been dealing with. Reviewed her SDOH screen and she indicated multiple needs and is asking for help. Discussed the following - Social Supports: Sony indicated she has 6 children. Four of her children ( 2 daughters and 2 sons) are in [place] and she does not have contact with some of them. She has a local son/fiancee/2 year old daughter who are a support. Her 15 year old daughter Fara Dukees with Sony. Sony indicated she is not close with anyone but she has a few acquaintances. Housing: Sony and her daughter had been homeless for about 9 months. She did get into an apartment with her daughter about a month ago. 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 She is very proud of her work and loves her job. Sony has financial distress. She has some outstanding bills. Informed her there are some resources we can apply to to help with some of those bills. Asked her to bring in some bills when she comes into the clinic on 11/01/23. Food security: Sony stated she has food assistance and has food for herself and her daughter. Coping; sony shared this past year has been challenging. She is trying to find a counselor for her daughter. Plan to continue to discuss what options are available for Sony to get additional support too. STEEL CUTTER leatha meet with Sony when she comes in on 11/01/23 to begin to connect her with some resources to help with financial and emotional distress. Brief assessment Supportive Counseling Food insecurity resources Financial resources Community Resource documented in this encounter Plan of Treatment Upcoming Encounters Date Type Department Care Team (Late st Contact Info) Description 06/21/2024 3:00 PM EST Appointment [place] [address] [place] [address] 06/24/2024 2:30 PM EST Office Visit Hematology/Oncology at [address] [phone] Osvaldo Hatch MD [facility] DR H[place]AT[place] [address] [address] [place]EMATOLOGY [place] [address] documented as of this encounter Visit Diagnoses Not on filedocumented in this encounter Care Teams Auto Brake Mechanic Relationship Specialty Start Date End Date Unknown None PCP - General 06/27/23 documented as of this encounter
--- OUTSIDE RECORDS SUMMARY | 2024-05-28 11:43 | XMS_ITS | Encounter Summary ---
Author Organization [facility] Address [facility] [place] [address] Care Team Providers Care Bench Chemist Name Role Phone Nyasia Pedro DO Primary Care Provider Unava ilable Encounter Details Date Type Department Care Team (Late st Contact Info) Description 02/20/2017 Orders [place] [phone] Morales Colón Jr., MD [facility] [place] [address] Lung nodule Social History Tobacco Use Types Packs/Day Years [...] 3:00 PM EST Appointment [place] [phone] Dana Nevarez APRN [address] [place] [address] DR HEMATOLOGY AND ONCOLOGY [place], [place] [id number] 06/24/2024 2:30 PM EST Office Visit Hematology/Oncology at [address] [phone] Osvaldo Hatch MD [facility] [place] [address] Dana Nevarez APRN [address] [place] [address] [place] [address] documented as of this encounter Visit Diagnoses Diagnosis Lung nodule Solitary pulmonary nodule documented in this encounter Care Teams Bench Chemist Relationship Specialty Start Date End Date Nyasia Pedro DO PCP - General 08/29/13 06/26/23 documented as of this encounter
--- OUTSIDE RECORDS SUMMARY | 2024-05-28 11:43 | XMS_ITS | Encounter Summary ---
[place] [address] Care Team Providers Care Jboss Developer Name Role Phone Nyasia Pedro DO Primary Care Provider Liseth olmos Encounter Details Date Type Department Care Team (Late st Contact Info) Description 02/24/2022 Telephone [place] [phone] Camilla Raymundo RN Social History Tobacco Use Types Packs/Day Years Used Date Smoking Tobacco: Every Day Cigarettes Smokeless Tobacco: Never Comments:last cigarrete on 0 02/07/22 Sex and Gender Information Value Date Recorded Sex Assigned at Not on file Gender Identity Not on file Sexual Orientation Not on file documented as of this encounter Miscellaneous Notes * Telephone Encounter - Camilla Raymundo RN - 02/24/2022 11:43 AM EDT TC to Dr. Gray Morales DO Unable to reach Dr. Morales, left a message stating that Ms. Hancock cancelled when she was called by Same Day surgery to review her arrival time for her procedure that she was cancelling her procedure. Awaiting call back. TC to PCP Unable to reach anyone at PCP office, unable to leave a message. documented in this encounter Plan of Treatment Upcoming Encounters Date Type Department Care Team (Late st Contact Info) Description 06/21/2024 3:00 PM EST Appointment [place] [address] HEMATOLOGY AND ONCOLOGY [place], [place] [address] 06/24/2024 2:30 PM EST Office Visit Hematology/Oncology at [address] [phone] Osvaldo Hatch MD [facility] DR HEMATOLOGY [place] [address] [address] HEMATOLOGY AND ONCOLOGY [place], [place] [phone] documented as of this encounter Visit Diagnoses Not on filedocumented in this encounter Care Teams Jboss Developer Relationship Specialty Start Date End Date Nyasia Pedro DO PCP - General 08/29/13 06/26/23 documented as of this encounter
--- OUTSIDE RECORDS SUMMARY | 2024-05-28 11:43 | XMS_ITS | Encounter Summary ---
Author Organization [facility] Address [facility] [place] [address] Care Team Providers Care Psychologist Personnel Name Role Phone Unknown Primary Care Provider Unavailabl e Encounter Details Date Type Department Care Team (Late st Contact Info) Description 10/17/2023 Telephone Hematology/Oncology at [address] [phone] Kaitlynn Tavarez Social History Tobacco Use Types Packs/Day Years Used Date Smoking Tobacco: Every Day Cigarettes Smokeless Tobacco: Never [facility] Utilities Answer Date Recorded In the [...] * Telephone Encounter - Kaitlynn Tavarez - 10/17/2023 10:58 AM EDT Placed call on cell number listed to go over screening questions for upcoming MRI that Dr. Hatch hasordered. VM was full and could not leave a message. documented in this encounter Plan of Treatment Upcoming Encounters Date Type Department Care Team (Late st Contact Info) Description 06/21/2024 3:00 PM EST Appointment [place] [address] Dana Nev[address] HEMATOLOGY AND ONCOLOGY [place], [place] [address] 06/24/2024 2:30 PM EST Office Visit Hematology/Oncology at [address] [phone] Osvaldo Hatch MD [facility] DR [place] [address] [address] HEMATOLOGY AND ONCOLOGY [place], [place] [address] documented as of this encounter Visit Diagnoses Not on filedocumented in this encounter Care Teams Psychologist Personnel Relationship Specialty Start Date End Date Unknown None PCP - General 06/27/23 documented as of this encounter
--- OUTSIDE RECORDS SUMMARY | 2024-05-28 11:43 | XMS_ITS | Encounter Summary ---
Author Organization [facility] [place] [address] Care Team Providers Care Commodities Manager Name Role Phone Nyasia Pedro DO Primary Care Provider Liseth ilarabella Encounter Details Date Type Department Care Team (Late st Contact Info) Description 10/12/2016 Telephone [place] [phone] Nyasia Russell Social History Tobacco Use Types Packs/Day Years Used Date Smoking Tobacco: Every Day Cigarettes Smokeless Tobacco: Never Sex and Gender Information Value Date Recorded Sex Assigned at Not on file Gender Identity Not on file Sexual Orientation Not on file documented as of this encounter Miscellaneous Notes * Telephone Encounter - Nyasia Russell - 10/12/2016 11:25 AM EDT [facility] called requesting appt. with Dr. Schmitz; abnormal CT. [phone]. PT scheduled for Oct.18 documented in this encounter Plan of Treatment Upcoming Encounters Date Type Department Care Team (Late st Contact Info) Description 06/21/2024 3:00 PM EST Appointment [place] [phone] HEMATOLOGY AND ONCOLOGY [place], [place] [id number] 06/24/2024 2:30 PM EST Office Visit Hematology/Oncology at [address] [phone] Osvaldo Hatch MD [facility] DR HEMATOLOGY [place] [address] Dana Nevarez APRN [address] [place] [address] DR [place] [address] documented as of this encounter Visit Diagnoses Not on filedocumented in this encounter Care Teams Commodities Manager Relationship Specialty Start Date End Date Nyasia Pedro DO PCP - General 08/29/13 06/26/23 documented as of this encounter
--- OUTSIDE RECORDS SUMMARY | 2024-05-28 11:43 | XMS_ITS | Encounter Summary ---
Author Organization [facility] Address [facility] [place] [address] Care Team Providers Care Plant Security Guard Name Role Phone Nyasia Pedro DO Primary Care Provider Unava ilable Reason for Referral * Consultation (Emergency) - Closed Specialty Diagnoses / Procedures Referred By Contac t Referred To Contact Hematology and Oncology Diagnoses Mass of upper lobe of right lung William Hanna MD [facility] [place] [address] Osvaldo Hatch MD [address] [place] [address] DR [place] [address] Referral ID Status Reason Start Date Expiration Date V isits Requested Visits Authorized [id number] Closed Consult, Test & Treat 02/10/2022 02/10/2023 1 1 Reason for Visit * Reason Comments Mass Encounter Details Date Type Department Care Team (Late st Contact Info) Description 02/10/2022 1:00 PM EDT Office Visit [place] [address] William Hanna MD [facility] [place] [address] Mass of upper lobe of right lung; History of tobacco use Social History Tobacco Use Types Packs/Day Years Used Date Smoking Tobacco: Every Day Cigarettes Smokeless Tobacco: Never Comments:last cigarrete on 0 02/07/22 Sex and Gender Information Value Date Recorded Sex Assigned at Not on file Gender Identity Not on file Sexual Orientation Not on file documented as of this encounter Last Filed Vital Signs Vital Sign Reading Time Taken Comments Blood Pressure 123/98 02/10/2022 1:52 PM EDT Pulse 108 02/10/2022 1:52 PM EDT Temperature 37.2 ??C (99 ??F) 02/10/2022 1:52 PM EDT Respiratory Rate 20 02/10/2022 1:52 PM EDT Oxygen Saturation 99% 02/10/2022 1:52 PM EDT Inhaled Oxygen Concentration - - Weight 57.5 kg (126 lb 12.8 oz) 02/10/2022 1:52 PM EDT Height 166 cm (5' 5.35) 02/10/2022 1:52 PM EDT Body Mass Index 20.87 02/10/2022 1:52 PM EDT documented in this encounter Patient Instructions * Patient Instructions* Camilla Raymundo RN - 02/10/2022 1:00 PM EDT Thank you for visiting Dr. Hanna in clinic 02/10/22 Dr. Hanna would like to schedule you for your Bronchoscopy with Endobronchial Ultrasound. You will receive a call to schedule this appointment. Your procedure is scheduled for Monday. You will receive a phone call from the OR nurses on Monday after 2pm through 6 pm. They will confirm your arrival time, review what medications to take and when to stop eating and drinking. Your procedure will occur in sales receptionist area 4W. Bronchoscopy is the term for a procedure in which a scope (thin tube with a light source on the end), is placed through your mouth or nose and into your trachea and large airways. A small amount of tissue from the surface of the area is removed. The removal of the tissue is called a biopsy. Endobronchial Ultra Sound or EBUS, is a procedure used to diagnose and stage lung cancer. It is done using a flexible camera, called a bronchoscope that is passed down through the mouth, into the lung. The device is able to take pictures, samples of tissue and fluids, as well as inspect nearby lymph nodes. This is a less invasive alternative to some surgeries. Please call Thoracic Surgery at [phone] with any questions or concerns. Exercise each day for 30 minutes or longer. Daily aerobic exercise for at least 30 minutes will help improve your endurance and improve the breathing capacity of your lungs. This means that you are breathing hard, your heart is beating fast and that you are sweating. Examples of this include walking, biking, swimming, and using a treadmill or stationary bike. Please call Thoracic surgery at with any questions or concerns. documented in this encounter H&P Notes * William Hanna MD - 02/10/2022 1:00 PM EDT Thoracic Surgery Attending Outpatient Consultation Note William Hanna MD [place] [address] FAX: Referring Provider: Nyasia Pedro DO [address] [place] [address] Reason for Consultation: right upper lobe lung mass Today, 02/10/2022, I saw Ms. Hancock in the Thoracic Surgery Clinic at [facility] in consultation for a Right upper lobe lung mass at your request. Her history was obtained from the patient. I have also reviewed her medical records and imaging prior to today's visit. As you know, Ms. Hancock is a 56 y.o. female with a prior 11mm RUL nodule noted on a CTA of the chest in September of 2016 to rule out a PE. Shewas referred to Thoracic Surgery at that time but did not show up for a scheduled appointment and did not return calls to reschedule. She had a recent CT scan showing this is now a 5.3cm mass that isabutting the minor fissure. This CT scan was performed for dyspnea. She states that she has had breathing problems and not felt well for the last 2 years. She was recently treated with 2 courses of antibiotics and notes some improvement in her breathing. She has a significant smoking history and states that she quit 1 week ago. She has a mildly productive cough. She denies hemoptysis. She denies fevers, night sweats, weight loss, or chest pain on exertion. She states that she was previously very active and tries to eat well. She notes that some days she is ableto walk several blocks without becoming short of breath. Other days she is unable to walk 1 full block without needing a break. She feels she can climb 1-2 flights of stairs but would likely be winded with doing so. Her ECOG performance status is 1 - Symptomatic but completely ambulatory. She has ahistory of headaches and head trauma per ENT records. A recent Brain MRI was negative for metastatic disease. I have personally reviewed the following scans and results that are part of the work up, including: Brain MRI 01/13/22 negative for [address] Chest 12/22/21: 5.3 x 4.3 RUL mass, right suprahilar adenopathy is noted PET/CT 01/31/22: IMPRESSION 1. FDG avid 5.5 cm RIGHT upper lobe mass, highly suspicious for primary lung malignancy. 2. No regional or distant sites of metastasis. 3. CT visualized subcentimeter opacity at the posterior margin of the right lower lobe, similar in size compared to CT of 10/12/2016, strongly favoring a benign etiology. A 14-point review of systems is otherwise negative, except where noted above and below. She has a past medical history of Depression, Pseudoseizure, and PTSD (post- traumatic stress disorder). She has chronic sinusitis, athralgias, gluten sensitivity, cervical dysplasia, and fatigue. She denies any past surgical history. She has had a LEEP x2 and colonoscopy/EGD. She has a current medication list which includes the following prescription(s): ventolin hfa, bupropion sr, fluticasone propionate, combivent respimat, cyclobenzaprine, estradiol, medroxyprogesterone, and naproxen sodium. She is allergic to other [unclassified drug]. Her family history includes Arthritis in her maternal grandmother. She has several family members with cancer. Mother had ovarian cancer/bladder cancer. MGF had lung cancer per records. A review of her social history shows: Social History Tobacco Use ??? Smoking status: Current Every Day Smoker Packs/day: 1.00 Types: Cigarettes ??? Smokeless tobacco: Never Used ??? Tobacco comment: last cigarrete on 02/07/22 Substance Use Topics ??? Alcohol use: Not on file *She notes that she stopped smoking last week. On examination, Ms. Hancock is a well nourished, well-developed female. She is alert and oriented. Vital Signs: BP (!) 123/98 (Patient Position: Sitting) Pulse (!) 108 Temp 37.2 ??C (99 ??F) (Temporal) Resp 20 Ht 166 cm (5' 5.35) Wt 57.5 kg (126 lb 12.8 oz) SpO2 99% BMI 20.87 kg/m?? Body mass index is 20.87 kg/m??. In general she is in no acute distress, but quite tearful. Her pupils are reactive. Her sclera are anicteric. There is no peripheral edema, cyanosis, or clubbing of theextremities. Neurologic examination is grossly intact. Musculoskelatal exam is grossly intact. Her skin is non-jaundiced. In summary, Ms. Hancock is a 56 y.o. female with a 5.3cm RUL lung mass. We have discussed the differential diagnosis including primary lung cancer, metastatic cancer to the lung, or benign lung nodule. Given that there was an 11mm lesion in this area in 2017, this is most likely a primary non-small cell lung cancer. Today we had a long discussion related to the diagnosis, staging and potential treatments of lung cancer. We discussed that if she does not have advanced disease, the standard of care treatment for those who can medically undergo surgery is to an anatomic lung resection. Given the size of her tumor, she would meet indication for neoadjuvant systemic therapy prior to resection. Wealso discussed radiation therapy with concurrent systemic therapy as an alternative to surgery. Given the size and central location of the mass and that we do not have a tissue diagnosis, we discussed my recommendation for a bronchoscopy with biopsy and EBUS to pathologically stage the mediastinum. Today, we reviewed the risks of Bronchoscopy and EBUS for tissue diagnosis. She understands therisks of bleeding, infection, damage to surrounding structures, including the laryngeal edema, possible shortness of breath, non-diagnostic biopsy, need for additional procedure, heart attack, arrhythmia, stroke and . She asked appropriate questions and would like to proceed. Her procedure will be scheduled tentatively for 02/21/22. Additional work up will be based on biopsy findings. I also spoke with Dr. Hatch from medical oncology who will help facilitate a consultation with her, for which a referral has been placed. If she should have any further questions or concerns in the interim, she should feel free to contact us. William Hanna MD 02/10/2022 documented in this encounter Plan of Treatment Upcoming Encounters Date Type Department Care Team (Late st Contact Info) Description 06/21/2024 3:00 PM EST Appointment [place] [address] [address] HEMATOLOGY AND ONCOLOGY [place], [place] [id number] 06/24/2024 2:30 PM EST Office Visit Hematology/Oncology at [address] [phone] Osvaldo Hatch MD [facility] DR [place] [address] [address] HEMATOLOGY AND ONCOLOGY [place], [place] [address] Scheduled Referrals Name Type Priority Associated Diagnoses Order Schedule Referral to Hematology and Oncology Outpatient Referral STAT Mass of upper lobe of right lung Ordered: 02/10/2022 documented as of this encounter Visit Diagnoses Diagnosis Mass of upper lobe of right lung History of tobacco use Personal history of tobacco use, presenting hazards to health documented in this encounter Care Teams Plant Security Guard Relationship Specialty Start Date End Date Nyasia Pedro DO PCP - General 08/29/13 06/26/23 documented as of this encounter
--- OUTSIDE RECORDS SUMMARY | 2024-05-28 11:43 | XMS_ITS | Encounter Summary ---
Author Organization [facility] Address [facility] [place] [address] Care Team Providers Care Baby Nurse Name Role Phone Nyasia Pedro DO Primary Care Provider Liseth olmos Encounter Details Date Type Department Care Team (Latest Contact Info) Description 01/27/2017 - 01/27/2017 11:59 PM EDT Hospital Encounter Radiology Library at [facility] [place] [phone] Matthew Granda MD [facility] [place] [address] Pain Discharge Disposition: Home Social History Tobacco Use [...] 3:00 PM EST Appointment [place] [address] HEMATOLOGY AND ONCOLOGY [place], [place] [address] 06/24/2024 2:30 PM EST Office Visit Hematology/Oncology at [address] [phone] Osvaldo Hatch MD [facility] DR HEMATOLOGY [place] [address] [address] HEMATOLOGY AND ONCOLOGY [place], [place] [phone] documented as of this encounter Procedures Procedure Name Priority Date/Time Associated Diagnosis Comments FILM LIBRARY STORAGE ONLY DX CHEST Routine 01/27/2017 12:00 AM EDT Pain documented in this encounter Results * Film Library- Storage Only DX Chest (01/27/2017 12:00 AM EDT) Narrative [facility] - 02/03/2017 5:35 PM EDT This exam is for storage only and is auto-finalizing. Matthew Granda MD G FILM LIBRARY ORD ERABLES [place], [place] documented in this encounter Visit Diagnoses Diagnosis Pain Generalized pain documented in this encounter Care Teams Baby Nurse Relationship Specialty Start Date End Date Nyasia Pedro DO PCP - General 08/29/13 06/26/23 documented as of this encounter
--- OUTSIDE RECORDS SUMMARY | 2024-05-28 11:43 | XMS_ITS | Encounter Summary ---
Author Organization [facility] [place] [address] Care Team Providers Care Can Capper Name Role Phone Nyasia Pedro DO Primary Care Provider Unava ilable Encounter Details Date Type Department Care Team (Late st Contact Info) Description 03/02/2017 Orders [place] [phone] Jose Francisco Mahoney Social History Tobacco Use Types Packs/Day Years [...] 3:00 PM EST Appointment [place] [phone] [address] HEMATOLOGY AND ONCOLOGY [place], [place] [phone] 06/24/2024 2:30 PM EST Office Visit Hematology/Oncology at [address] [phone] Osvaldo Hatch MD [facility] DR HEMATOLOGY [place] [address] Dana Nevarez [address] [place] [address] documented as of this encounter Visit Diagnoses Not on filedocumented in this encounter Care Teams Can Capper Relationship Specialty Start Date End Date Nyasia Pedro DO PCP - General 08/29/13 06/26/23 documented as of this encounter
--- OUTSIDE RECORDS SUMMARY | 2024-05-28 11:43 | XMS_ITS | Clinical Summary ---
Author Organization [facility] Address [address] [place] [address] Care Team Providers Care Competitive Athlete Name Role Phone None, Provider Primary Care Provider Unavailabl e Allergies Active [...] cancer of right upper lobe of lung ([facility]) 04/17/2023 Cancer Staging:Clinical: cT4, cN2 - Unsigned Lung mass 02/13/2023 Encounters Date Type Department Care Team Description 03/15/2024 [facility]phone [facility] Pulmonology & Critical Care - [address] [address] Tex Colvin MD Appointment Related from Last 3 Months Surgical History Surgery Date Site/Laterality Comments COLONOSCOPY 07/17/2010 - 07/16/2011 and endoscopy Medical History Medical History Date Comments Asthma 03/01/23 uses alb uterol inhaler 2-3x/day, nebs daily COPD (chronic obstructive pu lmonary disease) ([facility]) Noted 02/24/23 per pulmonary note Mass of upper lobe of right lung Per pulmonary note 12/26/22 Shortness of breath 03/01/23 with activity History of general anesthesia no issues Deviated nasal septum 03/01/23 on left Back pain 03/01/23 herniate d disc mid back Exercise involving walking unable to climb stairs wo SOB Anxiety 03/01/23 not on a ny meds, doesn't like they make her feel Migraine with aura, with int ractable migraine, so stated, with status migrainosus 03/01/23 last one last year, takes alieve Lung mass 03/01/23 bronch s cheduled Social History Tobacco Use Types Packs/Day Years [...] 13:30 EDT Sexual Orientation Not on file Obstetrics History Last Filed Vital Signs Vital Sign Reading Time Taken Comments Blood Pressure 121/71 04/17/2023 1453 EDT Pulse 104 04/17/2023 1453 EDT Temperature 36.6 ??C (97.8 ??F) 04/17/2023 1453 EDT Respiratory Rate 16 04/17/2023 145 EDT Oxygen Saturation 95% 04/17/2023 145 EDT Inhaled Oxygen Concentration - - Weight 54.4 kg (120 lb) 04/17/2023 1453 EDT Height 167.6 cm (5' 6) 03/10/2023 1103 EDT Body Mass Index 19.37 03/10/2023 1103 EDT Plan of Treatment Health Maintenance Due Date Last Done Comments Hepatitis C Screen 1964 Lung Cancer Screening 1965 Pneumococcal Immunization (1 of 2 - PCV) 1970 Hepatitis B Vaccine (1 of 3 - 19+ 3-dose series) 12/13 COVID-19 Vaccine ( - 2023- season) 2024 Insurance MEDICAID [place] Care Teams Competitive Athlete Relationship Specialty Start Date End Date None, Provider PCP - General 06/19/23
--- OUTSIDE RECORDS SUMMARY | 2024-05-28 11:43 | XMS_ITS | Encounter Summary ---
Author Organization [facility] [place] [place] [place] [address] Care Team Providers Care Associate Professor Of Library Science Name Role Phone Nyasia Pedro DO Primary Care Provider Liseth olmos Encounter Details Date Type Department Care Team (Late st Contact Info) Description 02/09/2022 Notes [place] [address] Camilla Raymundo RN Social History Tobacco Use Types Packs/Day Years Used Date Smoking Tobacco: Every Day Cigarettes Smokeless Tobacco: Never Sex and Gender Information Value Date Recorded Sex Assigned at Not on file Gender Identity Not on file Sexual Orientation Not on file documented as of this encounter Progress Notes * Camilla Raymundo RN - 02/09/2022 12:29 PM EDT TC to [facility] Radiology - [phone] looking for images of MRI Brain. They did not have that MRI Brain, but they did have a CT Angio of Chest on 12/22/2021 and will be pushing the images [place] TC to [facility] Radiology - [phone] They do have the MRI Brain from 01/13/2022 and will be pushing the images documented in this encounter Plan of Treatment Upcoming Encounters Date Type Department Care Team (Late st Contact Info) Description 06/21/2024 3:00 PM EST Appointment [place] [address] [address] HEMATOLOGY AND ONCOLOGY [place], [place] [id number] 06/24/2024 2:30 PM EST Office Visit Hematology/Oncology at [address] [phone] Osvaldo Hatch MD [facility] DR [place] [address] [address] HEMATOLOGY AND ONCOLOGY [place], [place] [address] documented as of this encounter Visit Diagnoses Not on filedocumented in this encounter Care Teams Associate Professor Of Library Science Relationship Specialty Start Date End Date Nyasia Pedro DO PCP - General 08/29/13 06/26/23 documented as of this encounter
--- OUTSIDE RECORDS SUMMARY | 2024-05-28 11:43 | XMS_ITS | Encounter Summary ---
Author Organization [facility] [place] [place] [place] [address] Care Team Providers Care Supervisor Photostat Name Role Phone Nyasia Pedro DO Primary Care Provider Liseth olmos Encounter Details Date Type Department Care Team (Late st Contact Info) Description 02/18/2022 Notes Only [place] [address] William Hanna MD [facility] [place] [address] Social History Tobacco Use Types Packs/Day Years Used Date Smoking Tobacco: Every Day Cigarettes Smokeless Tobacco: Never Comments:last cigarrete on 0 02/07/22 Sex and Gender Information Value Date Recorded Sex Assigned at Not on file Gender Identity Not on file Sexual Orientation Not on file documented as of this encounter Progress Notes * William Hanna MD - 02/18/2022 3:52 PM EDT Nakita canceled her EBUS schedulded for 02/21/22 when called by [facility] to tell her what time to come to the hospital. My office attempted to call her and she did not answer. A message asking her to call my office to reschedule was left for her. William Hanna MD 02/18/2022 documented in this encounter Plan of Treatment Upcoming Encounters Date Type Department Care Team (Late st Contact Info) Description 06/21/2024 3:00 PM EST Appointment [place] [address] HEMATOLOGY AND ONCOLOGY [place], [place] [address] 06/24/2024 2:30 PM EST Office Visit Hematology/Oncology at [address] [address] Osvaldo Hatch MD [facility] DR [place]AT[place] [address] [address] HEMATOLOGY [place] [address] documented as of this encounter Visit Diagnoses Not on filedocumented in this encounter Care Teams Supervisor Photostat Relationship Specialty Start Date End Date Nyasia Pedro DO PCP - General 08/29/13 06/26/23 documented as of this encounter
--- OUTSIDE RECORDS SUMMARY | 2024-05-28 11:43 | XMS_ITS | Encounter Summary ---
Author Organization [facility] [address] [place] [place] [address] Care Team Providers Care Bobbin Cleaner Hand Name Role Phone Unknown Primary Care Provider Unavailabl e Encounter Details Date Type Department Care Team (Late st Contact Info) Description 10/31/2023 2:45 PM EDT Ancillary Procedure Radiology Library at [facility] [place] [phone] Osvaldo Hatch MD [facility] HEMATOLOGY [place] [address] Social History Tobacco Use Types Packs/Day Years Used Date Smoking Tobacco: Every Day Cigarettes Smokeless Tobacco: Never [facility] Utilities Answer Date Recorded In the [...] 3:00 PM EST Appointment [place] [address] HEMATOLOGY AND ONCOLOGY [place], [place] [address] 06/24/2024 2:30 PM EST Office Visit Hematology/Oncology at [address] [phone] Osvaldo Hatch MD [facility] DR HEMATOLOGY [place] [address] [address] HEMATOLOGY AND ONCOLOGY [place], [place] [address] documented as of this encounter Procedures Procedure Name Priority Date/Time Associated Diagnosis Comments FILM LIBRARY STORAGE ONLY MR HEAD Routine 10/31/2023 2:42 PM EDT documented in this encounter Results * Film Library- Storage Only MR Head (10/31/2023 2:42 PM EDT) Narrative [facility] - 10/31/2023 2:42 PM EDT This exam is auto-finalizing. It's purpose is for storage only. Osvaldo Hatch MD IMG FILM LIBRARY ORD ERABLES Performing Organization Address City/State/[facility] Co de Phone Number [place], [place] documented in this encounter Visit Diagnoses Not on filedocumented in this encounter Care Teams Bobbin Cleaner Hand Relationship Specialty Start Date End Date Unknown None PCP - General 06/27/23 documented as of this encounter
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
--- OUTSIDE RECORDS SUMMARY | 2024-05-28 11:43 | XMS_ITS | Encounter Summary ---
Author Organization [facility] Address [facility] [place] [address] Care Team Providers Care Form Setter/Driver Name Role Phone Unknown Primary Care Provider Unavailabl e Encounter Details Date Type Department Care Team (Latest Contact Info) Description 10/16/2023 Travel Social History Tobacco Use Types Packs/Day Years Used Date Smoking Tobacco: Every Day Cigarettes Smokeless Tobacco: Never [facility] Utilities Answer Date Recorded In the past 12 months has th e [employer], gas, oil, or water [employer] threatened to shut off services in your [...] 3:00 PM EST Appointment [place] [address] [address] HEMATOLOGY [place], [place] [address] 06/24/2024 2:30 PM EST Office Visit Hematology/Oncology at [address] [phone] Osvaldo Hatch MD [facility] DR [place] [address] [address] HEMATOLOGY [place] [address] documented as of this encounter Visit Diagnoses Not on filedocumented in this encounter Care Teams Form Setter/Driver Relationship Specialty Start Date End Date Unknown None PCP - General 06/27/23 documented as of this encounter
--- OUTSIDE RECORDS SUMMARY | 2024-05-28 11:43 | XMS_ITS | Encounter Summary ---
Author Organization [facility] Address [facility] [place] [address] Care Team Providers Care Pleat Taper Name Role Phone Unknown Primary Care Provider Unavailabl e Encounter Details Date Type Department Care Team (Latest Contact Info) Description 10/18/2023 Travel Social History Tobacco Use Types Packs/Day Years Used Date Smoking Tobacco: Every Day Cigarettes Smokeless Tobacco: Never [facility] Utilities Answer Date Recorded In the past 12 months has th e [employer], gas, oil, or water [employer] threatened to shut off services in your [...] 3:00 PM EST Appointment [place] [address] HEMATOLOGY AND ONCOLOGY [place], [place] [address] 06/24/2024 2:30 PM EST Office Visit Hematology/Oncology at [address] [address] Osvaldo Hatch MD [facility] DR [place] [address] [address] [place] [address] documented as of this encounter Visit Diagnoses Not on filedocumented in this encounter Care Teams Pleat Taper Relationship Specialty Start Date End Date Unknown None PCP - General 06/27/23 documented as of this encounter
--- OUTSIDE RECORDS SUMMARY | 2024-05-28 11:43 | XMS_ITS | Encounter Summary ---
[place] [address] Care Team Providers Care Leaf Stamper Name Role Phone Unknown Primary Care Provider Unavailabl e Reason for Referral * Diagnostic Test (Routine) - Closed Specialty Diagnoses / Procedures Referred By Contac t Referred To Contact Radiology Diagnoses Primary malignant neoplasm of right upper lobe of lung Procedures NM Paulino PET CT Skull Base to Mid-thigh Osvaldo Hatch MD [facility] [place] [address] [place] [address] Referral ID Status Reason Start Date Expiration Date V isits Requested Visits Authorized [id number] Closed Specialty Service Requested 10/16/2023 04/16/2025 1 1 Reason for Visit * Diagnostic Test (Routine) - Closed Specialty Diagnoses / Procedures Referred By Contac t Referred To Contact Radiology Diagnoses Primary malignant neoplasm of right upper lobe of lung Procedures NM Paulino PET CT Skull Base to Mid-thigh Osvaldo Hatch MD [facility] [place] [address] [place] [address] Referral ID Status Reason Start Date Expiration Date V isits Requested Visits Authorized [id number] Closed Specialty Service Requested 10/16/2023 04/16/2025 1 1 Encounter Details Date Type Department Care Team (Late st Contact Info) Description 10/27/2023 2:00 PM EDT - 10/27/2023 11:59 PM EDT Hospital Encounter Nuclear Medicine at [facility] [place] [address] Osvaldo Hatch MD [facility] [address] [place] [address] Primary malignant neoplasm of right upper lobe of lung Discharge Disposition: Home Social History Tobacco Use Types Packs/Day Years Used Date Smoking Tobacco: Every Day Cigarettes Smokeless Tobacco: Never [facility] Utilities Answer Date Recorded In [...] Sig Dispensed Refills Start Date End Date acetaminophen (Tylenol) 500 mg tablet Take 1,000 [...] by mouth 2 times daily (with meals). dexAMETHasone (Decadron) 4 mg tablet 4 mg. 07/21/2023 11/27/2023 doxycycline (Vibramycin) 100 mg capsule Take 1 capsule by mouth 2 times daily. 10/11/2023 11/01/2023 folic acid (Vitamin B9) 400 mcg tablet Take 400 mcg by mouth Daily @ 0600. 07/21/2023 11/01/2023 ondansetron ODT (Zofran-ODT) 4 mg disintegrating tablet Take 4-8 mg by mouth Every 8 hours as needed. 07/21/2023 11/28/2023 prochlorperazine (Compazine) 10 mg tablet Take 10 mg by mouth Every 6 hours as needed. 07/21/2023 12/20/2023 fluticasone propionate (Flonase) 50 mcg/actuation [place], Suspension SHAKE LIQUID AND USE 1 SPRAY IN EACH NOSTRIL AT BEDTIME 01/18/2022 11/01/2023 Combivent Respimat 20-100 mcg/actuation Mist INHALE 1 PUFF BY MOUTH EVERY 6 HOURS NEEDED 02/07/2022 10/30/2023 cyclobenzaprine (FLEXERIL) 10 mg Tablet Take 10 mg by mouth nightly. 0 03/29/2016 11/01/2023 documented as of this encounter Plan of Treatment Upcoming Encounters Date Type Department Care Team (Late st Contact Info) Description 06/21/2024 3:00 PM EST Appointment [place] [address] [address] HEMATOLOGY AND ONCOLOGY [place], [place] [address] 06/24/2024 2:30 PM EST Office Visit Hematology/Oncology at [address] [phone] Osvaldo Hatch MD [facility] [address] [place] [address] [address] HEMATOLOGY AND ONCOLOGY [place], [place] [phone] documented as of this encounter Procedures Procedure Name Priority Date/Time Associated Diagnosis Comments NM PAULINO PET CT SKULL BASE TO MID-THIGH Routine 10/27/2023 2:00 PM EDT Primary malignant neoplasm of right upper lobe of lung documented in this encounter Results * NM Paulino PET CT Skull Base to Mid-thigh (10/27/2023 [...] who have questions please contact the health director long term care that requested your imaging first. ? Narrative 10/31/2023 3:29 PM EDT EXAMINATION: [facility] PET CT SKULL BASE TO MID-THIGH CLINICAL HISTORY: Non-small cell lung cancer, assess treatment response 57 yo wit locally advanced lung cancer. ??No interval treatment. ??Restaging C34.11, Malignant neoplasm of upper lobe, right bronchus or lung TECHNIQUE: Following IV injection of 73-ufhuth-5-deoxyglucose (FDG) a standard uptake of approximately 60 [...] Note Heath Amos MD - 10/31/2023 EXAMINATION: [facility] PET CT SKULL BASE TO MID-THIGH CLINICAL HISTORY: Non-small cell lung cancer, assess treatment response 57 yo wit locally advanced lung cancer. No interval treatment.Restaging C34.11, Malignant neoplasm of upper lobe, right bronchus or lung TECHNIQUE: Following IV injection of 25-kxhhsi-4-deoxyglucose (FDG) astandard uptake of approximately 60 minutes, [...] patients who have questions please contactthe health director long term care that requested your imaging first. Osvaldo Hatch MD IMG PET ORDERABLES documented [...] Intravenous, ONCE PRN, 1 dose, Starting on Mon10/27/23 at 1441, Until Mon10/27/23 at 1235, Per Protocol, Radiology Contrast, Routine Given 10/27/2023 12:35 PM EDT 10 mCi documented in this encounter Care Teams Leaf Stamper Relationship Specialty Start Date End Date Unknown None PCP - General 06/27/23 documented as of this encounter
--- OUTSIDE RECORDS SUMMARY | 2024-05-28 11:43 | XMS_ITS | Encounter Summary ---
Author Organization [facility] Address [address] [place] [address] Care Team Providers Care Painter Structural Steel Name Role Phone None, Provider Primary Care Provider Unavailabl e Reason for Referral * (Routine/Next Available) - Receiving Office to Obtain Authorization Specialty Diagnoses / Procedures Referred By Contac t Referred To Contact Procedures CT OUTSIDE IMAGES CHEST Imaging, External Referral ID Status Reason Start Date Expiration Date Visits Requested Visits Authorized [id number] Receiving Office to Obtain Authorization 11/24/2023 1 1 Reason for Visit * (Routine/Next Available) - Receiving Office to Obtain Authorization Specialty Diagnoses / Procedures Referred By Contac t Referred To Contact Procedures CT OUTSIDE IMAGES CHEST Imaging, External Referral ID Status Reason Start Date Expiration Date Visits Requested Visits Authorized [id number] Receiving Office to Obtain Authorization 11/24/2023 1 1 Encounter Details Date Type Department Care Team (Latest Contact Info) Description 11/14/2023 - 11/14/2023 23:59 EDT Hospital Encounter [facility] Secondary Reads [place] Discharge Disposition: Home or Self Care Social History Tobacco Use Types Packs/Day Years [...] 13:30 EDT Sexual Orientation Not on file documented as of this encounter Functional Status * Because of a physical, mental, or emotional condition, does this person have difficulty doing errands alone such as visiting a doctor's office or shopping? Answer Date of Assessment Author No 12/26/2022 14:52 EDT documented as of this encounter Mental Status * Because of a physical, mental, or emotional condition, does this person have serious difficulty concentrating, remembering, or making decisions? Answer Entry Date Author No 12/26/2022 14:52 EDT documented in this encounter Medications at Time of Discharge albuterol (ACCUNEB) 1.25 mg/3 mL nebulizer solution Inhale 3 mL as directed 3 times daily. ALBUTEROL INHL Inhale as directed. ascorbic acid, vitamin C, (VITAMIN C) 500 mg tablet Take 1 Tablet by mouth daily. Cholecalciferol, Vitamin D3, 10 mcg (400 unit) tablet Take 1 Tablet by mouth daily. dexAMETHasone (DECADRON) 4 mg tablet Take 1 tablet by mouth twice daily on day before and day after treatment. Take 4 mg daily on day 3 and day 4 then stop. Repeat with each chemo cycle. 24 Tablet 07/21/2023 ephedrine sulfate (BRONKAID MAX ORAL) Take by mouth. folic acid (FOLVITE) 400 mcg tablet Take 1 Tablet by mouth daily. 30 Tablet 2 07/21/2023 naproxen sodium (ALEVE ORAL) Take by mouth. ondansetron (ZOFRAN-ODT) 4 mg disintegrating tablet Take 1-2 Tablets by mouth every 8 hours as needed for Nausea. Wait to start until >48 hours after chemo. 10 Tablet 2 07/21/2023 polyethylene glycol 3350 (MIRALAX) 17 gram packet Take 17 g by mouth daily. 5 Packet 08/04/2023 prochlorperazine (COMPAZINE) 10 mg tablet Take 1 Tablet by mouth every 6 hours as needed for Nausea. 30 Tablet 1 07/21/2023 ZINC ORAL Take 50 mcg by mouth. documented as of this encounter Discharge Disposition Disposition Code Departure Means Destination Home or Self Care documented in this encounter Plan of Treatment Not on file documented as of this encounter Procedures Procedure Name Priority Date/Time Associated Diagnosis Comments CT OUTSIDE IMAGES CHEST Routine 11/14/2023 16:04 EDT documented in this encounter Results * CT OUTSIDE IMAGES CHEST (11/14/2023 16:04 EDT) Narrative 11/24/2023 16:04 EDT This is a non-reportable exam. us External Imaging IMG OTHER IMAGING ORDERABLES Fi nal Result documented in this encounter Visit Diagnoses Not on filedocumented in this encounter Care Teams Painter Structural Steel Relationship Specialty Start Date End Date None, Provider PCP - General 06/19/23 documented as of this encounter
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
--- OUTSIDE RECORDS SUMMARY | 2024-05-28 11:43 | XMS_ITS | Encounter Summary ---
Author Organization [facility] [place] [address] Care Team Providers Care Diagnostic Cardiac Sonographer Name Role Phone Nyasia Pedro DO Primary Care Provider Liseth olmos Encounter Details Date Type Department Care Team (Late st Contact Info) Description 02/18/2022 Telephone [place] [address] Asha Martinez Social History Tobacco Use Types Packs/Day Years Used Date Smoking Tobacco: Every Day Cigarettes Smokeless Tobacco: Never Comments:last cigarrete on 0 02/07/22 Sex and Gender Information Value Date Recorded Sex Assigned at Not on file Gender Identity Not on file Sexual Orientation Not on file documented as of this encounter Miscellaneous Notes * Telephone Encounter - Asha Martinez - 02/18/2022 3:39 PM EDT Call made to Nakita to discuss rescheduling her EBUS that she cancelled today with her call from [facility]. I had to leave a message for her to return call documented in this encounter Plan of Treatment Upcoming Encounters Date Type Department Care Team (Late st Contact Info) Description 06/21/2024 3:00 PM EST Appointment [place] [address] Dana Nevarez, [address] HEMATOLOGY AND ONCOLOGY [place], [place] [address] 06/24/2024 2:30 PM EST Office Visit Hematology/Oncology at [address] [phone] Osvaldo Hatch MD [facility] DR [place] [address] Dana Nevarez APRN [address] [place] [address] DR [place] [address] documented as of this encounter Visit Diagnoses Not on filedocumented in this encounter Care Teams Diagnostic Cardiac Sonographer Relationship Specialty Start Date End Date Nyasia Pedro DO PCP - General 08/29/13 06/26/23 documented as of this encounter
--- OUTSIDE RECORDS SUMMARY | 2024-05-28 11:43 | XMS_ITS | Encounter Summary ---
Author Organization [facility] Address [facility] [place] [place] [address] Care Team Providers Care Retread Supervisor Name Role Phone Nyasia Pedro DO Primary Care Provider Liseth olmos Encounter Details Date Type Department Care Team (Latest Contact Info) Description 10/12/2016 - 10/12/2016 11:59 PM EDT Hospital Encounter Radiology Library at [facility] [place] [phone] Andres Belle Jr., MD [facility] HEMATOLOGY [place] [address] Pain Discharge Disposition: Home Social History Tobacco [...] 3:00 PM EST Appointment [place] [address] [address] HEMATOLOGY AND ONCOLOGY [place], [place] [address] 06/24/2024 2:30 PM EST Office Visit Hematology/Oncology at [address] [phone] Osvaldo Hatch MD [facility] DR [place] [address] [address] HEMATOLOGY AND ONCOLOGY [place], [place] [phone] documented as of this encounter Procedures Procedure Name Priority Date/Time Associated Diagnosis Comments FILM LIBRARY STORAGE ONLY CT CHEST Routine 10/12/2016 12:00 AM EDT Pain documented in this encounter Results * Film Library- Storage Only CT Chest (10/12/2016 12:00 AM EDT) Narrative [facility] - 10/12/2016 11:55 AM EDT This exam is for storage only and is auto-finalizing. Andres Belle Jr., MD [facility] FILM LIBRARY ORD ERABLES [place], [place] documented in this encounter Visit Diagnoses Diagnosis Pain Generalized pain documented in this encounter Care Teams Retread Supervisor Relationship Specialty Start Date End Date Nyasia Pedro DO PCP - General 08/29/13 06/26/23 documented as of this encounter
--- OUTSIDE RECORDS SUMMARY | 2024-05-28 11:43 | XMS_ITS | Encounter Summary ---
Author Organization [facility] Address [address] [place] [address] Care Team Providers Care Community Worker Name Role Phone None, Provider Primary Care Provider Unavailabl e Reason for Visit * Reason Onset Date Comments Medication Problem 11/16/2023 Encounter Details Date Type Department Care Team ([facility] st Contact Info) Description 11/16/2023 Telephone [facility] Pulmonology & Critical Care - [address] [phone] Tex Colvin MD [address] [facility], [address] [place] [address] Medication Problem Social History Tobacco Use Types Packs/Day [...] 12/26/2022 14:52 EDT documented in this encounter Ordered Prescriptions Prescription Sig Dispense Quantity Refills Last Filled Start Date End Date amoxicillin-clavul anate (AUGMENTIN) 875-125 mg per tablet Take 1 Tablet by mouth every 12 hours. 14 Tablet 11/24/2023 predniSONE (DELTASONE) 10 mg tablet Take 4 Tablets by mouth daily for 3 days, THEN 3 Tablets daily for 3 days, THEN 2 Tablets daily for 3 days, THEN 1 Tablet daily for 3 days. 30 Tablet 11/27/2023 4 documented in this encounter Miscellaneous Notes * Telephone Encounter - Ayana Masters - 03/15/2024 1030 EDT Called patient and unable to leave voicemail. Sent letter to patient requesting they call to schedule follow up in Pulmonary. * Addendum Note - Tex Colvin MD - 11/27/2023 1602 EDTAddended by: TEX COLVIN on: 11/27/2023 16:02 Modules accepted: Orders * Telephone Encounter - Sabine Bernabe RT - 11/27/2023 1117 EDT R: LMOM advising patient that Dr. Colvin will be sending in prescription for prednisone and to please call clinic with any worsening symptoms, questions or concerns. RT MARIAJOSE * Telephone Encounter - Sabine Bernabe RT - 11/27/2023 0843 EDT R: I called to check on patient to make sure she started Augmentin Dr. Colvin ordered late Mondayafternoon after I had left for the day. Patient first stated she is feeling better but feels she needs prednisone for a few more days. Symptom update: C/o increased symptoms since ending prednisone taper Monday C/o severe chest tightness yesterday, better today as:moderate chest tightness Patient talking if full paragraphs without difficulty C/o wheeze that is slightly better today Less chest congestion Sputum: green/yellow; slightly socially responsible investment adviser in color and amount Meds: Prednisone taper: finished Monday Augmentin: started Monday morning Combivent 1 puff Q6H PRN: using BID-TID; last taken @ 0740; yesterday she took TID Albuterol NEB: not taking Albuterol 2 puffs: last taken last NOC at bedtime R: Reviewed: - she may take Combivent 1 puff every 6H - seek UC for severe chest tightness or other worsening symptoms as needed Routed to Dr. Colvin for advisement. RT MARIAJOSE * Addendum Note - Tex Colvin MD - 11/24/2023 1658 EDTAddended by: TEX COLVIN on: 11/24/2023 16:58 Modules accepted: Orders * Telephone Encounter - Tex Colvin MD - 11/24/2023 1654 EDT We've had good luck with Augmentin with her in the past. I sent that script in. CT reviewed. She has a mass in the RUL that is known without much surrounding groundglass or consolidation. Called her and left a message. * Telephone Encounter - Sabine Bernabe RT - 11/24/2023 1018 EDT S: New evolving symptoms; medication management B: Vinicius COPD/asthma patient. Hx lung CA and currently undergoing chemo tx. Last seen 12/26/22. No Action Plan. Symptoms: C/o asthma symptom onset 2 weeks ago with difficult inhalation but not exhalation C/o prednisone not always helping C/o ABX doesn't seem to be helping like it should C/o Albuterol not helping both in HFA and NEB form Symptoms not COPD.. asthma Woke with hoarse voice today Woke with mild sore throat today; resolved with Tylenol No SAT available No fever or chills C/o mild chest tightness for previous two days C/o moderate chest tightness today Patient talking if full paragraphs without difficulty BS diminish and clear over phone, however, patient c/o inspiratory wheeze Patient questioning esophageal reflux No chest congestion today; previous chest congestion resolved Sputum: brown/green x 3 days; prior to then, NPC. Amount unknown; during TE produced 1/4 tsp brown sputum Sleeping well Appetite: good Water intake: good Meds: Doxy Hyclate 100 mg with 2-3 days left of 2nd course. Patient states Dr. Hatch gave first course, and Dr. Beard prescribed 2nd course. Prednisone taper; now on 10 mg with 2 days left Advair 250/50 one inhalaton BID x approximately 1 week Combivent 1 puff BID to TID; started approximately 1.5 weeks ago Mucinex 600 mg Q4-6H Albuterol HFA; last taken a few days ago Albuterol NEB; last taken 1 week ago Bronkaid; unknown strength; taking x few months Chemo; 2nd round scheduled for this Monday Preferred pharmacy: [facility] A: Dr. Beard at [facility] and Dr. Hatch at [facility], advised patient to follow up with Dr. Colvin. R: Advised/Discussed: - Dr. Colvin and I have been unable to reach her. Patient relayed there was an issue with her VM and not able to access; now resolved. - CXR at [facility] 2 weeks ago. Advised I would fax request to [facility] HIM and done. Requested CXR images/interpretation and related physician visit notes. - continue to stay well hydrated - I will request appointment and rout TE to Dr. Colvin for further advisement. RT MARIAJOSE 11/24/23 [facility] records received and scanned into [facility]. Update routed to Dr. Colvin. RT MARIAJOSE * Telephone Encounter - Sabine Bernabe RT - 11/20/2023 1404 EDT R: VM remains full and no response from [employer] message sent 11/17/23. Update routed to Dr. Colvin.RT MARIAJOSE * Telephone Encounter - Sabine Bernabe RT - 11/17/2023 0915 EDT S: New evolving symptoms; medication management B: Vinicius COPD/asthma patient. Hx lung CA. Last seen 12/26/22. Symptoms: C/o inhalers don't seem to be working A: Patient states she is working with another provider who advised her to reach out and speak with Dr. Colvin. 2. Patient states call is urgent that nothing is working. R: Unable to reach patient due to no answer and VM full. 2. [employer] message sent asking to call clinic to review symptoms and medications. RT MARIAJOSE 11/17/23 @ 1533 Mailbox remains full; unable to LM. RT MARIAJOSE * Telephone Encounter - Elle Drummond - 11/16/2023 1153 EDT Patient calling asking to speak with Dr. Colvin. Says it is regarding her inhalers - none of themseem to be working. She is also working with another provider and was advised to reach out and speak with Dr. Colvin. Patient states this is urgent that nothing is working! Please call back to discuss. documented in this encounter Plan of Treatment Not on file documented as of this encounter Visit Diagnoses Not on filedocumented in this encounter Care Teams Community Worker Relationship Specialty Start Date End Date None, Provider PCP - General 06/19/23 documented as of this encounter
--- OUTSIDE RECORDS SUMMARY | 2024-05-28 11:43 | XMS_ITS | Encounter Summary ---
Author Organization [facility] [place] [address] Care Team Providers Care Installment Dealer Name Role Phone Unknown Primary Care Provider Unavailabl e Encounter Details Date Type Department Care Team (Late st Contact Info) Description 10/30/2023 Orders Only Hematology/Oncology at [address] [phone] Osvaldo Hatch MD [facility] DR HEMATOLOGY [place] [address] Social History Tobacco Use Types Packs/Day Years [...] 3:00 PM EST Appointment [place] [address] HEMATOLOGY AND ONCOLOGY [place], [place] [address] 06/24/2024 2:30 PM EST Office Visit Hematology/Oncology at [address] [phone] Osvaldo Hatch MD [facility] DR HEMATOLOGY [place] [address] [address] [place] [address] documented as of this encounter Visit Diagnoses Not on filedocumented in this encounter Care Teams Installment Dealer Relationship Specialty Start Date End Date Unknown None PCP - General 06/27/23 documented as of this encounter
--- OUTSIDE RECORDS SUMMARY | 2024-05-28 11:43 | XMS_ITS | Encounter Summary ---
Author Organization [facility] [place] [address] Care Team Providers Care Straddle Bug Name Role Phone Nyasia Pedro DO Primary Care Provider Liseth olmos Encounter Details Date Type Department Care Team (Late Contact Info) Description 02/08/2023 Ancillary Procedure Radiology Library at [facility] [place] [phone] Osvaldo Hatch MD [facility] DR [place] [address] Social History Tobacco Use Types Packs/Day Years [...] 3:00 PM EST App[place]ment [place] [address] Dana Nevarez APRN [address] [place] [address] DR HEMATOLOGY AND ONCOLOGY [place], [place] [id number] 06/24/2024 2:30 PM EST Office Visit Hematology/Oncology at [address] [phone] Osvaldo Hatch MD [facility] DR [place] [address] Dana Nevarez APRN [address] [place] [address] DR HEMATOLOGY [place] [address] documented as of this encounter Procedures Procedure Name Priority Date/Time Associated Diagnosis Comments FILM LIBRARY STORAGE ONLY NM PET/CT Routine 02/08/2023 12:00 AM EDT documented in this encounter Results * Film Library- Storage Only NM Pet / CT (02/08/2023 12:00 AM EDT) Narrative [facility] - 10/23/2023 11:48 AM EDT This exam is auto-finalizing. It's purpose is for storage only. Osvaldo Hatch MD IMG FILM LIBRARY ORD ERABLES [place], [place] documented in this encounter Visit Diagnoses Not on filedocumented in this encounter Care Teams Straddle Bug Relationship Specialty Start Date End Date Nyasia Pedro DO PCP - General 08/29/13 06/26/23 documented as of this encounter
--- OUTSIDE RECORDS SUMMARY | 2024-05-28 11:43 | XMS_ITS | Encounter Summary ---
[place] [address] Care Team Providers Care Horse Trainer Name Role Phone Nyasia Pedro DO Primary Care Provider Liseth ilarabella Encounter Details Date Type Department Care Team ([facility] Contact Info) Description 03/07/2022 Telephone Hematology/Oncology at [address] [phone] Kaitlynn Tavarez Social History Tobacco Use Types Packs/Day Years Used Date Smoking Tobacco: Every Day Cigarettes Smokeless Tobacco: Never Comments:last cigarrete on 0 02/07/22 Sex and Gender Information Value Date Recorded Sex Assigned at Not on file Gender Identity Not on file Sexual Orientation Not on file documented as of this encounter Miscellaneous Notes * Telephone Encounter - Kaitlynn Tavarez - 03/07/2022 9:19 AM EDT Called Nakita to reschedule her appointment with , he would like to see her today 03/07/2022 at 1530. I called 03/01/2022 to reschedule her and left a voice mail on her cell phone and did not receive acall back to try and reschedule. documented in this encounter Plan of Treatment Upcoming Encounters Date Type Department Care Team ([facility] Contact Info) Description 06/21/2024 3:00 PM EST Appointment [place] [phone] HEMATOLOGY AND ONCOLOGY [place], [place] [address] 06/24/2024 2:30 PM EST Office Visit Hematology/Oncology at [address] [phone] Osvaldo Hatch MD [facility] DR [place] [address] [address] HEMATOLOGY AND ONCOLOGY [place], [place] [address] documented as of this encounter Visit Diagnoses Not on filedocumented in this encounter Care Teams Horse Trainer Relationship Specialty Start Date End Date Nyasia Pedro DO PCP - General 08/29/13 06/26/23 documented as of this encounter
--- OUTSIDE RECORDS SUMMARY | 2024-05-28 11:43 | XMS_ITS | Encounter Summary ---
Author Organization [facility] [place] [address] Care Team Providers Care Rug Cleaner Helper Name Role Phone Nyasia Pedro DO Primary Care Provider Liseth ilarabella Encounter Details Date Type Department Care Team (Late st Contact Info) Description 10/19/2016 Telephone [place] [phone] Nyasia Russell Social History Tobacco Use Types Packs/Day Years Used Date Smoking Tobacco: Every Day Cigarettes Smokeless Tobacco: Never Sex and Gender Information Value Date Recorded Sex Assigned at Not on file Gender Identity Not on file Sexual Orientation Not on file documented as of this encounter Miscellaneous Notes * Telephone Encounter - Nyasia Russell - 10/19/2016 12:59 PM EDT PT was No Show; left a message for PT to call to reschedule. documented in this encounter Plan of Treatment Upcoming Encounters Date Type Department Care Team (Late st Contact Info) Description 06/21/2024 3:00 PM EST Appointment [place] [phone] Dana Nevarez WAFER POLISHING LEAD WORKER [address] [place] [address] DR HEMATOLOGY AND ONCOLOGY [place], [place] [id number] 06/24/2024 2:30 PM EST Office Visit Hematology/Oncology at [address] [phone] Osvaldo Hatch MD [facility] DR HEMATOLOGY [place] [address] Dana Nevarez APRN [address] [place] [address] DR HEMATOLOGY AND ONCOLOGY [place], [place] [address] documented as of this encounter Visit Diagnoses Not on filedocumented in this encounter Care Teams Rug Cleaner Helper Relationship Specialty Start Date End Date Nyasia Pedro DO PCP - General 08/29/13 06/26/23 documented as of this encounter
--- OUTSIDE RECORDS SUMMARY | 2024-05-28 11:43 | XMS_ITS | Encounter Summary ---
Author Organization [facility] [place] [address] Care Team Providers Care Sixth Grade Teacher Name Role Phone Nyasia Pedro DO Primary Care Provider Unava ilable Encounter Details Date Type Department Care Team (Late st Contact Info) Description 12/22/2021 Ancillary Procedure Radiology Library at [facility] [place] [address] Nyasia Pedro DO Social History Tobacco Use Types Packs/Day Years [...] 3:00 PM EST Appointment [place] [address] Dana Nevarez [address] HEMATOLOGY AND ONCOLOGY [place], [place] [phone] 06/24/2024 2:30 PM EST Office Visit Hematology/Oncology at [address] [phone] Osvaldo Hatch MD [facility] DR [place] [address] [address]na Nev[address] [place] [address] documented as of this encounter Procedures Procedure Name Priority Date/Time Associated Diagnosis Comments FILM LIBRARY STORAGE ONLY CT CHEST Routine 12/22/2021 12:00 AM EDT documented in this encounter Results * Film Library- Storage Only CT Chest (12/22/2021 12:00 AM EDT) Narrative [facility] - 02/09/2022 4:18 PM EDT This exam is auto-finalizing. It's purpose is for storage only. Nyasia Pedro DO G FILM LIBRARY ORD ERABLES Performing Organization Address City/State/[facility] Co de Phone Number MARIE [place], [place] documented in this encounter Visit Diagnoses Not on filedocumented in this encounter Care Teams Sixth Grade Teacher Relationship Specialty Start Date End Date Nyasia Pedro DO PCP - General 08/29/13 06/26/23 documented as of this encounter
--- OUTSIDE RECORDS SUMMARY | 2024-05-28 11:43 | XMS_ITS | Encounter Summary ---
Author Organization [facility] [place] [address] Care Team Providers Care Construction Job Titles Name Role Phone Nyasia Pedro DO Primary Care Provider Unava ilable Encounter Details Date Type Department Care Team (Late st Contact Info) Description 01/13/2022 Ancillary Procedure Radiology Library at [facility] [place] [address] Nyasia Pedro DO Social History Tobacco Use [...] 3:00 PM EST Appointment [place] [address] Dana Nevarez [address] HEMATOLOGY AND ONCOLOGY [place], [place] [phone] 06/24/2024 2:30 PM EST Office Visit Hematology/Oncology at [address] [phone] Osvaldo Hatch MD [facility] DR HEMATOLOGY [place] [address] Dana Nevarez [address] [place] [address] documented as of this encounter Procedures Procedure Name Priority Date/Time Associated Diagnosis Comments FILM LIBRARY STORAGE ONLY MR HEAD Routine 01/13/2022 12:00 AM EDT documented in this encounter Results * Film Library- Storage Only MR Head (01/13/2022 12:00 AM EDT) Narrative [facility] - 02/09/2022 4:19 PM EDT This exam is auto-finalizing. It's purpose is for storage only. Nyasia Pedro DO G FILM LIBRARY ORD ERABLES Performing Organization Address City/State/[facility] Co de Phone Number MARIE [place], [place] documented in this encounter Visit Diagnoses Not on filedocumented in this encounter Care Teams Construction Job Titles Relationship Specialty Start Date End Date Nyasia Pedro DO PCP - General 08/29/13 06/26/23 documented as of this encounter
--- OUTSIDE RECORDS SUMMARY | 2024-05-28 11:43 | XMS_ITS | Encounter Summary ---
[place] [address] Care Team Providers Care Relay Associate Name Role Phone Nyasia Pedro DO Primary [...] Base to Mid-thigh Uli Hammond PA [address] [place] [address] [place] [address] Referral ID Status Reason Start Date Expiration Date V isits Requested Visits Authorized [id number] Closed Specialty Service Requested 01/18/2022 07/21/2023 1 1 Encounter Details Date Type Department Care Team (Late st Contact Info) Description 01/31/2022 11:26 AM EDT - 01/31/2022 11:59 PM EDT Hospital Encounter [place] [address] Uli Hammond PA [address] [place] [address] Discharge Disposition: Home Social History Tobacco Use [...] 10/12/2021 10/16/2023 fluticasone propionate (Flonase) 50 mcg/actuation [place], Suspension SHAKE LIQUID AND USE 1 SPRAY [...] 3:00 PM EST Appointment [place] [phone] Dana Nevarez[address] HEMATOLOGY AND ONCOLOGY [place], [place] [phone] 06/24/2024 2:30 PM EST Office Visit Hematology/Oncology at [address] [phone] Osvaldo Hatch MD [facility] DR [place] [address] [address] HEMATOLOGY AND ONCOLOGY [place], [place] [phone] documented as of this encounter Procedures Procedure Name Priority Date/Time Associated Diagnosis Comments NM PET CT STANDARD PLUS HEAD AND NECK Routine 01/31/2022 1:07 PM EDT Traumatic injury of head, initial encounter Lung mass CSF rhinorrhea Bilateral headaches POCT GLUCOSE Routine 01/31/2022 11:49 AM EDT documented in this encounter Results * NM [...] who have questions please contact the health grounds caretaker that requested your imaging first. ? Electronically signed by: Alexey Zamarripa MD, [facility] ([phone]), at 02/01/2022 11:08 AM Narrative 02/01/2022 11:08 AM EDT EXAMINATION: NM PET CT STANDARD PLUS HEAD AND NECK CLINICAL HISTORY: Lung mass seen on CT, worsening cough, congestion TECHNIQUE: Following IV injection of 99-lfdtun-0-deoxyglucose (FDG) a standard uptake of approximately 60 [...] Note Alexey Zamarripa MD - 02/01/2022 EXAMINATION: NM PET CT STANDARD PLUS HEAD AND NECK CLINICAL HISTORY: Lung mass seen on CT, worsening cough, congestion TECHNIQUE: Following IV injection of 54-kcflmh-5-deoxyglucose (FDG) astandard uptake of approximately 60 minutes, [...] patients who have questions please contactthe health grounds caretaker that requested your imaging first. Electronically signed by: Alexey Zamarripa MD, [facility]([phone]), at 02/01/2022 11:08 AM Uli GARCIA IMG PET ORDERABLES * POCT Glucose (01/31/2022 11:49 AM EDT) Glucose, POC 99 65 - 199 mg/dL [facility] Comment: Supplemental ranges: <140 mg/dL before meals <180 mg/dL all other times of the day Blood 01/31/2022 11:4 9 AM EDT 01/31/2022 11:49 AM EDT Uli GARCIA POINT OF CARE TEST O RDERABLES [facility] [place] [address] documented in this encounter Visit Diagnoses Not on filedocumented in this encounter Care Teams Relay Associate Relationship Specialty Start Date End Date Nyasia Pedro DO PCP - General 08/29/13 06/26/23 documented as of this encounter
--- OUTSIDE RECORDS SUMMARY | 2024-05-28 11:43 | XMS_ITS | Encounter Summary ---
Author Organization [facility] Address [facility] [place] [address] Care Team Providers Care Supervisor Bridges And Buildings Name Role Phone Unknown Primary Care Provider Unavailabl e Encounter Details Date Type Department Care Team (Late st Contact Info) Description 11/01/2023 10:00 AM EDT Office Visit Hematology/Oncology at [address] [phone] Dana Nevarez [address] HEMATOLOGY AND ONCOLOGY [place], [place] [phone] Primary malignant neoplasm of right upper lobe of lung Social History Tobacco Use Types Packs/Day Years Used Date Smoking Tobacco: Every Day Cigarettes Smokeless Tobacco: Never [facility] Utilities Answer Date Recorded In the [...] Sign Reading Time Taken Comments Blood Pressure 125/74 11/01/2023 10:42 AM EDT Pulse 103 11/01/2023 10:42 AM EDT Temperature 36.4 ??C (97.5 ??F) 11/01/2023 10:42 AM E DT Respiratory Rate 16 11/01/2023 10:42 AM EDT Oxygen Saturation 96% 11/01/2023 10:42 AM EDT Inhaled Oxygen Concentration - - Weight 54.6 kg (120 lb 6.4 oz) 11/01/2023 10:42 AM EDT Height 166.1 cm (5' 5.39) 11/01/2023 10:42 AM E DT Body Mass Index 19.79 11/01/2023 10:42 AM EDT documented in this encounter Patient Instructions * Patient Instructions* Dana Nevarez APRN - 11/01/2023 10:00 AM EDT The plan is for Carboplatin/Pemetrexed/Pembrolizumab given every 21 days for 4 cycles, followed by maintenance pemetrexed/pembrolizumab. The following information was reviewed with the patient and family. Antitumor Therapy Schedule: Pembrolizumab given on Day 1 of a 21 day cycle, infuses over 30 min Carboplatin given on Day 1 of a 21 day cycle, infuses over 30 min Pemetrexed given on Day 1 of a 21 day cycle, infuses over 10 min Pre-medication to prevent nausea Supportive care: B12 injection every 3 cycles Plan for 4 hrs in infusion on the days of chemotherapy Laboratory Tests: Check blood counts, kidney and liver function, thyroid function and electrolytes prior to each treatment. Provider Visits: Day 1 of each cycle Possible Side Effects include, but are not limited to: Carboplatin: The most common side effects include decrease in blood counts (decrease in white bloodcells, red blood cells and platelets resulting in increased risk of infection, anemia and bleeding), nausea and vomiting, taste changes, decreased appetite, constipation (or less likely diarrhea), fatigue. Less common side effects include infusion reaction, mouth sores, kidney dysfunction, electrolyte abnormalities, ringing in the ears or hearing loss. Pemetrexed: The most common potential side effects include: Decrease in blood counts (decrease in white blood cells, red blood cells and platelets, resulting in increased risk of infection, anemia and bleeding), nausea/vomiting, decreased appetite, constipation, fatigue. Less common side effects include rash, mouth sores, worsening kidney function. Pembrolizumab: The most common potential side effects are fatigue, decreased appetite, itching, nausea, and anemia. It is important to be aware of the potential immune-mediated toxicities, including pneumonitis, colitis, hepatitis, rash, neuropathy, and endocrinopathies. Call immediately if any change in breathing, 3 or more loose or watery stools in 24 hrs (do not take immodium), rash, profound fatigue, headaches or vision changes. Prompt treatment is required with high dose steroids. Medications: the following prescriptions should be picked up before starting treatment Folic acid 400-1000 mcg/day, ongoing medication (available in either a multivitamin or by prescription) Compazine 10 mg oral every 6 hours as needed for nausea Do not take NSAIDs Plan: Treatment is scheduled to begin today, 11/01/23 Testing/Diagnostics Baseline blood work was reviewed and is adequate for treatment Chest CT every 2 cycles to assess response Supportive Care: Head Of Marketing Analytics Katerine Whipple; social work Michelle Marsh Smoking cessation: Currently using 1/2 ppd Advance Directives: A copy of the Advanced Directive was given to the patient. Will refer to socialwork to assist with completion Follow up: Return to clinic in 3 weeks documented in this encounter Progress Notes * Dana Nevarez, FIRE PREVENTION SPECIALIST - 11/01/2023 10:00 AM EDT Images from the original note were not included. Thoracic Oncology [facility] [place] [address] [phone] Nakita Hancock is being seen for the [...] metastasis, and new small R femoral metastasis. This is an incurable malignancy where systemic treatment is the mainstay. The need to consider treatment within the context of potential risks and side effects of treatment as well as individual goals and preferences regarding quality of life were discussed. This was a difficult decision for her, but she is agreeable to begin therapy with carboplatin, pemetrexed, and pembrolizumab. We spent >45 minutes today reviewing the schedule of therapy and potential adverse effects related to the abovementioned medications. Plan: - Labs and toxicities assessed and acceptable for ongoing treatment. Begin therapy with carbo/pem/pem today. - RTC in 3 weeks for consideration of C2. Will restage after that cycle. - Engaging social work, engaging RD. - Discussed [facility] behavioral [facility] team to review talk therapy or other options. She will think about this, but is not ready to start something new at this time. Danafredi Nevarez, ALBERTO 11/01/2023 Thoracic Oncology [facility] CC: Sarahi Rosario MD Answers submitted by the patient for this visit: (Submitted on 11/01/2023) Distress: 8 (Submitted on 11/01/2023) Distress - Practical Problems: None of the Above Distress - Emotional Problems: Worry or anxiety, Fear Distress - Temple: Conflict between beliefs and cancer treatments Distress - Physical Problems: Pain, Sleep Other Concerns: : financial ability after treatment if i cant work HPI/Interval History/Subjective: Last seen: 10/16/23 Nakita is here today for her chemoteaching and to begin therapy with carbo/pem/pem. She is feeling tearful and anxious, does not like the idea of poison going in her body and notes that it's against her synagogue to put poisons in her body. She has continued/worsening cough, though she feels there is some improvement after starting on Levaquin. Discussed that this could also be related to growing tumor and hopefully starting therapy will improve symptoms. Her bowels are normal for her. No baseline hearing loss. Still smoking about 1/2 ppd Social History/Support Network: Home situation: Single parent. 15 year old daughter- Oliva. Originally from [place]. 25 year old son Annette is her emergency contact. Employment: [employer] Tobacco use: 1 pack/day smoking history for [...] Not on file Utilities: At Risk (10/16/2023) [facility] Utilities Threatened with loss of utilities: Yes Family History: Mother- Dscd ovarian cancer and bladder cancer by report Father- Dscd And maternal grandfather had lung cancer A daughter had leukemia (sounds like APML) and was cured by systemic therapy. Family History Problem Relation Age of Onset Arthritis Maternal Grandmother Oncology Overview: Screen shot from Dr. Rosario's records at [facility] In progress Presentation: Nakita [...] time she met with thoracic surgery at [facility] [place]. For evaluation with staging EBUS was planned. She did not come to the visit. She was also referred to medical oncology at that time but did not come. Multiple telephone calls were made and letters sent in hopes that she might reschedule. She ultimately connected with [facility] pulmonary medical oncology and [...] her body. Staging/PreTx Eval: 10.12.[address]8 [address] chest 6 MRI Brain- no metastases 01.31.22 PET scan 1. FDG avid 5.5 cm RIGHT upper lobe mass, highly suspicious for primary lung malignancy. 2. No regional or distant sites of metastasis. 3. CT visualized subcentimeter opacity at the posterior margin of the right lower lobe, similar in size compared to CT of 10/12/2016, strongly favoring a benign etiology. 02.08.23 PET scan ([facility]) 1. The large primary [...] represent metastatic disease and the plan at [facility] was for systemic therapy [...] Exam: Wt Readings from Last 3 Encounters: 11/01/23 54.6 kg (120 lb 6.4 oz) 10/16/23 55.9 kg (123 lb 3.2 oz) 02/10/22 57.5 kg (126 lb 12.8 oz) Temp Readings from Last 3 Encounters: 11/01/23 36.4 ??C (97.5 ??F) 10/16/23 36.3 ??C (97.3 ??F) (Temporal) 02/10/22 37.2 ??C (99 ??F) (Temporal) BP Readings from Last 3 Encounters: 11/01/23 125/74 10/16/23 123/68 02/10/22 (!) 123/98 Pulse Readings from Last 3 Encounters: 11/01/23 (!) 103 10/16/23 (!) 103 02/10/22 (!) 108 Body surface area is 1.59 meters squared. Wt Readings from Last 3 Encounters: 11/01/23 54.6 kg (120 lb 6.4 oz) 10/16/23 55.9 kg (123 lb 3.2 oz) 02/10/22 57.5 kg (126 lb 12.8 oz) KPS Score ECOG Grade [...] Judgment: Judgment normal. Review of Laboratory Data: 11/01/23 WBC 10.97, H/H 15.1/46.1, plt 566, ANC 6880, Na 142, K 4.0, Cl 102, CO2 31.2, BUN 14, Creat 0.9, glucose 121, Ca 8.9, Mg 1.7, t bili 0.4, AST 27, ALT 25, alk phos 125, t protein 7.1, albumin 3.3, TSH0.55, Free T4 1.36 Review of Imaging Data: As above Review of Pathology Data: No new data documented in this encounter Plan of Treatment Upcoming Encounters Date Type Department Care Team (Late st Contact Info) Description 06/21/2024 3:00 PM EST Appointment [place] [phone] Dana Nevarez FIRE PREVENTION SPECIALIST [address] [place] [address] DR HEMATOLOGY AND ONCOLOGY [place], [place] [address] 06/24/2024 2:30 PM EST Office Visit Hematology/Oncology at [address] [phone] Osvaldo Hatch MD [facility] DR HEMATOLOGY [place] [address] Dana Nevarez APRN [address] [place] [address] DR HEMATOLOGY AND ONCOLOGY [place], [place] [id number] documented as of this encounter Visit Diagnoses Diagnosis Primary malignant neoplasm of right upper lobe of lung Malignant neoplasm of upper lobe, bronchus or lung documented in this encounter Care Teams Supervisor Bridges And Buildings Relationship Specialty Start Date End Date Unknown None PCP - General 06/27/23 documented as of this encounter
--- OUTSIDE RECORDS SUMMARY | 2024-05-28 11:43 | XMS_ITS | Encounter Summary ---
Author Organization [facility] Address [address] [place] [address] Care Team Providers Care Missing Persons Investigator Name Role Phone None, Provider Primary Care Provider Unavailabl e Reason for Referral * (Routine/Next Available) - Receiving Office to Obtain Authorization Specialty Diagnoses / Procedures Referred By Contac t Referred To Contact Procedures XR OUTSIDE IMAGES CHEST Imaging, External Referral ID Status Reason Start Date Expiration Date Visits Requested Visits Authorized [id number] Receiving Office to Obtain Authorization 11/24/2023 1 1 Reason for Visit * (Routine/Next Available) - Receiving Office to Obtain Authorization Specialty Diagnoses / Procedures Referred By Contac t Referred To Contact Procedures XR OUTSIDE IMAGES CHEST Imaging, External Referral ID Status Reason Start Date Expiration Date Visits Requested Visits Authorized [id number] Receiving Office to Obtain Authorization 11/24/2023 1 1 Encounter Details Date Type Department Care Team (Latest Contact Info) Description 09/29/2023 - 09/29/2023 23:59 EDT Hospital Encounter [facility] [place] Discharge Disposition: Home or [...] Name Priority Date/Time Associated Diagnosis Comments XR OUTSIDE IMAGES CHEST Routine 09/29/2023 16:04 EDT documented in this encounter Results * XR OUTSIDE IMAGES CHEST (09/29/2023 16:04 EDT) Narrative 11/24/2023 16:04 EDT This is a non-reportable exam. us External Imaging IMG OTHER IMAGING ORDERABLES Fi nal Result documented in this encounter Visit Diagnoses Not on filedocumented in this encounter Care Teams Missing Persons Investigator Relationship Specialty Start Date End Date None, Provider PCP - General 06/19/23 documented as of this encounter
--- OUTSIDE RECORDS SUMMARY | 2024-05-28 11:43 | XMS_ITS | Encounter Summary ---
Author Organization [facility] [address] [place] [address] Care Team Providers Care Ambulatory Nurse Name Role Phone Unknown Primary Care Provider Unavailabl e Encounter Details Date Type Department Care Team (Late st Contact Info) Description 10/31/2023 Telephone Hematology/Oncology at [address] [phone] Osvaldo Hatch MD [facility] [address] [place] [address] Social History Tobacco Use Types Packs/Day Years Used Date Smoking Tobacco: Every Day Cigarettes Smokeless Tobacco: Never [facility] Utilities Answer Date Recorded In the [...] Telephone Encounter - Osvaldo Hatch MD - 10/31/2023 6:03 PM EDT Images from the original note were not included. Telephone Call CHEST: There is a hypermetabolic lobular and [...] neck without a CT correlate (image 241). IMPRESSION 1. [...] right femoral neck metastasis. No CT correlate. She started Levofloxacin and does think it has helped with her cough. We discussed the the scan findings and the implications that this looks like potentially stage IV disease though the findings arenot conclusive. The plan is to start treatment tomorrow and she is eager to get going with treatment. Osvaldo Hatch MD, MS 10/31/2023 Medical Oncology & Hematology [facility] documented in this encounter Plan of Treatment Upcoming Encounters Date Type Department Care Team (Late st Contact Info) Description 06/21/2024 3:00 PM EST Appointment [place] [phone] HEMATOLOGY AND ONCOLOGY [place], [place] [address] 06/24/2024 2:30 PM EST Office Visit Hematology/Oncology at [address] [phone] Osvaldo Hatch MD [facility] [place] [address] [address] HEMATOLOGY [place] [address] documented as of this encounter Visit Diagnoses Not on filedocumented in this encounter Care Teams Ambulatory Nurse Relationship Specialty Start Date End Date Unknown None PCP - General 06/27/23 documented as of this encounter
--- OUTSIDE RECORDS SUMMARY | 2024-05-28 11:43 | XMS_ITS | Encounter Summary ---
Author Organization [facility] Address [address] [place] [address] Care Team Providers Care Hoop Machine Operator Name Role Phone None, Provider Primary Care Provider Unavailabl e Reason for Visit * Reason Onset Date Comments Appointment Related 03/15/2024 Encounter Details Date Type Department Care Team ([facility] st Contact Info) Description 03/15/2024 Telephone [facility] Pulmonology & Critical Care - [address] [phone] Tex Colvin MD [address] [facility], [address] [place] [address] Appointment Related Social History Tobacco Use Types Packs/Day Years [...] 12/26/2022 14:52 EDT documented in this encounter Miscellaneous Notes * Telephone Encounter - Ayana Masters - 03/15/2024 1028 EDT Called patient to schedule a follow up appointment with Dr. Colvin. Patient did not answer and the voicemail box was full. Sent letter requesting patient call to schedule an appointment in Pulmonology. documented in this encounter Plan of Treatment Not on file documented as of this encounter Visit Diagnoses Not on filedocumented in this encounter Care Teams Hoop Machine Operator Relationship Specialty Start Date End Date None, Provider PCP - General 06/19/23 documented as of this encounter
--- OUTSIDE RECORDS SUMMARY | 2024-05-28 11:43 | XMS_ITS | Encounter Summary ---
Author Organization [facility] [address] [place] [address] Care Team Providers Care Hospice Admitting Clerk Name Role Phone Nyasia Pedro DO Primary Care Provider Liseth olmos Encounter Details Date Type Department Care Team (Late st Contact Info) Description 03/07/2022 Telephone Hematology/Oncology at [address] [phone] Osvaldo Hatch MD [facility] [address] [place] [address] Social History Tobacco Use Types Packs/Day Years Used Date Smoking Tobacco: Every Day Cigarettes Smokeless Tobacco: Never Comments:last cigarrete on 0 02/07/22 Sex and Gender Information Value Date Recorded Sex Assigned at Not on file Gender Identity Not on file Sexual Orientation Not on file documented as of this encounter Miscellaneous Notes * Telephone Encounter - Osvaldo Hatch MD - 03/07/2022 4:02 PM EDT Telephone call Patient has not shown for multiple appointments I tried calling her listed number which goes to a studio Did not leave VM Tried calling the Emergency contact Cuco number but went to . Did not leave message. Tried calling Emergency contact Miley but goes to unidentified . Did not leave message. Will have clinic send certified letter explaining our concerns regarding ability to treat her cancer in a timely manner if she does not keep her appointments. Osvaldo Hatch MD, MS 03/07/2022 Medical Oncology & Hematology [facility] CC: Alaina Gatica documented in this encounter Plan of Treatment Upcoming Encounters Date Type Department Care Team (Late st Contact Info) Description 06/21/2024 3:00 PM EST Appointment [place] [phone] HEMATOLOGY AND ONCOLOGY [place], [place] [phone] 06/24/2024 2:30 PM EST Office Visit Hematology/Oncology at [address] [phone] Osvaldo Hatch MD [facility] [address] [place] [address] [address] HEMATOLOGY AND ONCOLOGY [place], [place] [phone] documented as of this encounter Visit Diagnoses Not on filedocumented in this encounter Care Teams Hospice Admitting Clerk Relationship Specialty Start Date End Date Nyasia Pedro DO PCP - General 08/29/13 06/26/23 documented as of this encounter
--- OUTSIDE RECORDS SUMMARY | 2024-05-28 11:43 | XMS_ITS | Encounter Summary ---
Author Organization [facility] Address [address] [place] [address] Care Team Providers Care Mounted Police Name Role Phone None, Provider Primary Care Provider Unavailabl e Reason for Visit * Reason Onset Date Comments Appointment Related 11/16/2023 Encounter Details Date Type Department Care Team ([facility] st Contact Info) Description 11/16/2023 Telephone [facility] Cancer Center Hematology & Oncology - [address] [phone] Sarahi Hyatt MD [address] [facility], [address] [place] [address] Appointment Related Social History Tobacco [...] encounter Miscellaneous Notes * Telephone Encounter - Pau Ashton - 11/20/2023 1307 EDT Spoke to pt. She confirmed she started treatment at [facility] a while ago and has 2 or 3 more infusions left. She is going in every 3 weeks and is happy to have any records sent to Dr Hyatt if needed. * Telephone Encounter - You Roy - 11/16/2023 1037 EDT Went to call pt to let her know per Dr Hyatt please call us back to reschedule once she has either started tx at [facility] or when she is ready to see Dr Hyatt for a follow up but no answer/ no vm willtry again. documented in this encounter Plan of Treatment Not on file documented as of this encounter Visit Diagnoses Not on filedocumented in this encounter Care Teams Mounted Police Relationship Specialty Start Date End Date None, Provider PCP - General 06/19/23 documented as of this encounter
[2024-05-28 11:44] LABS: ALT 19 U/L (14-59); AST 20 U/L (15-37); Albumin 3.5 g/dL (3.4-5.0); Alkaline Phosphatase 121 U/L (46-116); Anion Gap 8.1 mmol/L (3-11); BUN 19 mg/dL (7-18); Bilirubin, Total 0.38 mg/dL (0.2-1.0); CO2 31.9 mmol/L (21.0-32.0); CREATININE 0.8 mg/dL (0.55-1.02); Calcium 9.8 mg/dL (8.5-10.1); Chloride 102 mmol/L (98-107); Estimated GFR 84.82 (mL/min/1.73m2); FREE T4 0.96 ng/dL (0.76-1.46); Glucose 92 mg/dL (74-106); Potassium 4.2 mmol/L (3.5-5.1); Sodium 142 mmol/L (136-145); TSH 0.79 uIU/mL (0.36-3.74); Total Protein 7.6 g/dL (6.4-8.2)
--- OUTSIDE RECORDS SUMMARY | 2024-05-28 11:44 | XMS_ITS | Encounter Summary ---
Author Organization [facility] Address [address] [place] [address] Care Team Providers Care Travel Nurse Name Role Phone None, Provider Primary Care Provider Unavailabl e Encounter Details Date Type Department Care Team ([facility] st Contact Info) Description 06/27/2023 Orders Only [facility] Cancer Center Hematology & Oncology - Main [place] [address] [place], [place] [phone] Alf Gonzales, MELQUIADES Social History Tobacco Use Types Packs/Day Years [...] 12/26/2022 14:52 EDT documented in this encounter Plan of Treatment Not on file documented as of this encounter Visit Diagnoses Not on filedocumented in this encounter Care Teams Travel Nurse Relationship Specialty Start Date End Date None, Provider PCP - General 06/19/23 documented as of this encounter
--- OUTSIDE RECORDS SUMMARY | 2024-05-28 11:44 | XMS_ITS | Encounter Summary ---
Author Organization [facility] Address [address] [place] [address] Care Team Providers Care Residential Housekeeper Name Role Phone None, Provider Primary Care Provider Unavailabl e Reason for Visit * Reason Onset Date Comments Results 08/07/2023 LAB RESULTS Encounter Details Date Type Department Care Team ([facility] st Contact Info) Description 08/07/2023 Telephone [facility] Cancer Center Hematology & Oncology - [address] [phone] Sarahi Hyatt MD [address] [place] [address], [address] [place] [address] Results (LAB RESULTS) Social History Tobacco Use Types Packs/Day Years [...] encounter Miscellaneous Notes * Telephone Encounter - Jj Beal MA - 08/07/2023 1325 EST LAB RESULTS FROM [facility] JJ BEAL MA 08/07/2023 13:26 documented in this encounter Plan of Treatment Not on file documented as of this encounter Procedures Procedure Name Priority Date/Time Associated Diagnosis Comments COMPREHENSIVE METABOLIC PANEL (ONCOLOGY USE ONLY-INC MG) Routine 08/03/2023 COMPLETE BLOOD COUNT AND DIFFERENTIAL Routine 08/03/2023 documented in this encounter Results * (ABNORMAL) COMPREHENSIVE METABOLIC PANEL (ONCOLOGY USE ONLY-INC MG) (08/03/2023) Calcium, External 9 mg/dL [facility] CO2, External 32.9(A) 21 - 32 mmol/L [facility] AST, External 34 U/L [facility] ALT, External 33 [facility] Bilirubin, Total, External 0.2 [facility] Creatinine, External 0.7 mg/dL [facility] Calculated Calcium, External [facility] Anion Gap, External [facility] Total Protein, External 7.6 [facility] Potassium, External 3.6 mmol/L [facility] Total Alkaline Phosphatase, External 109 [facility] Albumin, External 3.3(A) 3.4 - 5 g/dL [facility] BUN, External 16 mg/dL [facility] GFR, Calculated, External 100.19 [facility] Fasting?, External [facility] Chloride, External 101 mmol/L [facility] Glucose, Serum, External 152(A) 74 - 106 mg/dL [facility] Sodium, External 140 mmol/L [facility] Magnesium, External [facility] Blood VENOUS BLOOD / Unknown 08/03/2023 Historical Provider CHEMISTRY & BLOOD GAS ORD ERABLES Final Result Performing Organization Address City/[facility]/ZIP Co de Phone Number [facility] * (ABNORMAL) COMPLETE BLOOD COUNT AND DIFFERENTIAL (08/03/2023) WBC, External 9.07 [facility] RBC, External 4.73 [facility] Hemoglobin, External 14 % [facility] HCT, External 43.4 [facility] MCV, External 92 [facility] MCH, External 29.6 g/dL [facility] MCHC, External 32.3 g/dL [facility] PLT, External 445(A) 130 - 400 [facility] RDW-CV, External 15(A) 11.7 - 14.6 [facility] Neutrophils, External 62.6 [facility] Lymphocytes, External 25.5 [facility] Monocytes, External 8.8 [facility] Eosinophils, External 2.1 [facility] Basophils, External 0.7 [facility] ABS Neutrophils, External 5.68 [facility] ABS Lymphs, External 2.31 [facility] ABS Monocytes, External 0.8 [facility] ABS Eosinophils, External 0.19 [facility] ABS Basophils, External 0.06 [facility] Blood VENOUS BLOOD / Unknown 08/03/2023 us Historical Provider PACKAGES & DNA PROBE CONRAD MYLES Final Result [facility] documented in this encounter Visit Diagnoses Not on filedocumented in this encounter Care Teams Residential Housekeeper Relationship Specialty Start Date End Date None, Provider PCP - General 06/19/23 documented as of this encounter
--- OUTSIDE RECORDS SUMMARY | 2024-05-28 11:44 | XMS_ITS | Encounter Summary ---
Author Organization [facility] Address [address] [place] [address] Care Team Providers Care Pump Servicer Helper Name Role Phone None, Provider Primary Care Provider Unavailabl e Reason for Visit * Reason Onset Date Comments Appointment Related 07/14/2023 Encounter Details Date Type Department Care Team ([facility] st Contact Info) Description 07/14/2023 Telephone [facility] Cancer Center Hematology & Oncology - [address] [address] Sarahi Hyatt MD [address] [facility], [address] [place] [address] Appointment Related Social History Tobacco [...] encounter Miscellaneous Notes * Telephone Encounter - Nick Esparza - 07/14/2023 1546 EST Called pt and inform them of Jul 21 infusion with all times. Pt wants labs done at [facility]. Following up with Kendell Vega. documented in this encounter Plan of Treatment Not on file documented as of this encounter Visit Diagnoses Not on filedocumented in this encounter Care Teams Pump Servicer Helper Relationship Specialty Start Date End Date None, Provider PCP - General 06/19/23 documented as of this encounter
--- OUTSIDE RECORDS SUMMARY | 2024-05-28 11:44 | XMS_ITS | Encounter Summary ---
Author Organization [facility] Address [address] [place] [address] Care Team Providers Care Track Supervisor Name Role Phone None, Provider Primary Care Provider Unavailabl e Encounter Details Date Type Department Care Team (Late st Contact Info) Description 07/13/2023 Documentation Visit [facility] Cancer Center Hematology & Oncology - [facility] [address] [place] [address] Alf Gonzales, RN Social History Tobacco Use Types Packs/Day [...] 12/26/2022 14:52 EDT documented in this encounter Progress Notes * Alf Gonzales, MELQUIADES - 07/13/2023 1043 EST Pt calls reporting some s/sx of increased cough and tightness as before which was relieved with steroids. Pt instructed to fu with urgent care or ER in [facility] for evaluation as pt has not been evaluated by pulm here recently. Verbalizes understanding. Pt also asked about decision about cancer treatment and after long reinstruction agreeing to treatment. Message sent to schedule pt and contact directly. documented in this encounter Plan of Treatment Not on file documented as of this encounter Visit Diagnoses Not on filedocumented in this encounter Care Teams Track Supervisor Relationship Specialty Start Date End Date None, Provider PCP - General 06/19/23 documented as of this encounter
--- OUTSIDE RECORDS SUMMARY | 2024-05-28 11:44 | XMS_ITS | Encounter Summary ---
Author Organization [facility] Address [address] [place] [address] Care Team Providers Care Planning Intern Name Role Phone None, Provider Primary Care Provider Unavailabl e Reason for Visit * Reason Onset Date Comments Appointment Related 09/13/2023 Encounter Details Date Type Department Care Team ([facility] st Contact Info) Description 09/13/2023 Telephone [facility] Cancer Center Hematology & Oncology - [address] [address] Nicolette Alvarado, PALeviC [address] [place] [address], [address] [place] [address] Appointment Related Social History Tobacco [...] encounter Miscellaneous Notes * Telephone Encounter - Yessy Erwin - 09/13/2023 0953 EST HemOnc Incoming Call Appointment Related Which type of appointment is this for? Provider Visit Is this a return call from a surgery scheduler?No Cancel Appointment Appointment Date 09.13.2023 (if within 1 week, [facility] Excellence Specialist. If no answer, put high priority call encounter and route to hem/onc scheduling pool) Her daughter had a miscarriage in [place] and she flew to visit her. Please call back to schedule in a few days. Yessy Erwin 09/13/2023 9:54 documented in this encounter Plan of Treatment Not on file documented as of this encounter Visit Diagnoses Not on filedocumented in this encounter Care Teams Planning Intern Relationship Specialty Start Date End Date None, Provider PCP - General 06/19/23 documented as of this encounter
--- OUTSIDE RECORDS SUMMARY | 2024-05-28 11:44 | XMS_ITS | Encounter Summary ---
Author Organization [facility] Address [address] [place] [address] Care Team Providers Care Palletiser Operator Name Role Phone None, Provider Primary Care Provider Unavailabl e Encounter Details Date Type Department Care Team (Late st Contact Info) Description 08/03/2023 Lab Requisition [facility] Pathology & Laboratory Medicine - [facility] [address] [place] [address] Outr Resulting Lab, Provider Social History Tobacco Use Types Packs/Day Years [...] Procedure Name Priority Date/Time Associated Diagnosis Comments HEPATITIS B PROFILE Routine 08/03/2023 1 3:12 EST documented in this encounter Results * HEPATITIS B PROFILE (08/03/2023 13:12 EST) Hep B Surface Ag Negative Negative 08/04/19 10:08 [facility] Hep B Surface Ab, Quantitative <3.1 See Note mIU/mL 08/04/2023 10:08 [facility] Comment: Reference Range for Hep B Surface Ab, Quant: Positive: >= 10.0 mIU/mL Negative: ??< 10.0 mIU/mL Patient is presumed to not be immune to infection with Hepatitis B Virus. Hep B Surface Ab, Qualitative Negative See Note 08/04/2023 10:08 [facility] Comment: Reference Range for Hep B Surface Ab, Qual: Unvaccinated: ??Negative Vaccinated: ??Positive Hepatitis B Core Ab, Total Negative Negative 08/04/2023 10:08 [facility] Blood VENOUS BLOOD / Unknown 08/03/2023 13:12 EST 08/03/2023 21:36 EST us Provider Outr Resulting Lab CHEMISTRY & BLOOD GA S ORDERABLES Final Result [facility] [address] [place] [address] documented in this encounter Visit Diagnoses Not on filedocumented in this encounter Care Teams Palletiser Operator Relationship Specialty Start Date End Date None, Provider PCP - General 06/19/23 documented as of this encounter
--- OUTSIDE RECORDS SUMMARY | 2024-05-28 11:44 | XMS_ITS | Encounter Summary ---
Author Organization [facility] Address [address] [place] [address] Care Team Providers Care Touch Up Worker Name Role Phone None, Provider Primary Care Provider Unavailabl e Reason for Visit * Reason Onset Date Comments Social Work 08/18/2023 Care coordinatio n Encounter Details Date Type Department Care Team (Late st Contact Info) Description 08/18/2023 Telephone [facility] Cancer Center Hematology & Oncology - [facility] [address] [place], [place] [phone] Kajal Fisher Social Work (Care coordination) Social History Tobacco Use Types Packs/Day Years [...] encounter Miscellaneous Notes * Telephone Encounter - Kajal Fisher - 08/18/2023 [address] Hyatt- pt requesting a time change for her infusion as she doesn't like to drive in the dark. PSS and OSS have spoken with pt and the time slot she's requesting is full. Dr. Hyatt asked if there is a transportation option for her. Let Dr. Hyatt know that I have mentioned to pt that her county has a medicaid vendor however she hasdeclined this option. documented in this encounter Plan of Treatment Not on file documented as of this encounter Visit Diagnoses Not on filedocumented in this encounter Care Teams Touch Up Worker Relationship Specialty Start Date End Date None, Provider PCP - General 06/19/23 documented as of this encounter
--- OUTSIDE RECORDS SUMMARY | 2024-05-28 11:44 | XMS_ITS | Encounter Summary ---
Author Organization [facility] Address [address] [place] [address] Care Team Providers Care Reinforcing Steel Worker Name Role Phone Unknown, Provider Primary Care Provider Unava ilable Encounter Details Date Type Department Care Team (Late st Contact Info) Description 06/16/[address] [facility] Pulmonology & Critical Care - [address] [address] Tex Colvin MD [address] [place] [address], [address] [place] [address] Social History Tobacco Use Types Packs/Day Years [...] Refills Last Filled Start Date End Date predniSONE (DELTASONE) 10 mg tablet Take 4 Tablets by mouth daily for 3 days, THEN 3 Tablets daily for 3 days, THEN 2 Tablets daily for 3 days, THEN 1 Tablet daily for 3 days. 30 Tablet 06/16/2023 3 amoxicillin-clavul anate (AUGMENTIN) 875-125 mg per tablet Take 1 Tablet by mouth daily. 14 Tablet 1 06/16/2023 4 documented in this encounter Plan of Treatment Not on file documented as of this encounter Visit Diagnoses Not on filedocumented in this encounter Discontinued Medications Medication Sig Discontinue Reason Start Date End Da te predniSONE (DELTASONE) 10 mg tablet Take 4 Tablets by mouth daily for 3 days, THEN 3 Tablets daily for 3 days, THEN 2 Tablets daily for 3 days, THEN 1 Tablet daily for 3 days. Reorder 02/13/2023 06/16/2023 amoxicillin-clavulanate (AUGMENTIN) 875-125 mg per tablet Take 1 Tablet by mouth daily. Reorder 04/26/2023 06/16/2023 documented as of this encounter Care Teams Reinforcing Steel Worker Relationship Specialty Start Date End Date Unknown, Provider, PCP - General 03/10/23 06/18/23 documented as of this encounter
--- OUTSIDE RECORDS SUMMARY | 2024-05-28 11:44 | XMS_ITS | Encounter Summary ---
Author Organization [facility] Address [address] [place] [address] Care Team Providers Care Hand Grinder Name Role Phone None, Provider Primary Care Provider Unavailabl e Reason for Visit * Reason Onset Date Comments Medications Refill 07/19/2023 Follow-up 07/19/2023 Post ER visit Encounter Details Date Type Department Care Team (Late st Contact Info) Description 07/19/2023 Refill [facility] [place] Hematology & Oncology - [facility] [address], [place] [id number] Charlotte Maguire, MELQUIADES Medications Refill; Follow-up (Post ER visit) Social History Tobacco Use Types Packs/Day Years [...] Filled Start Date End Date predniSONE (DELTASONE) 20 mg tablet Take 2 Tablets by mouth daily for 5 days. 10 Tablet 07/19/2023 documented in this encounter Miscellaneous Notes * Telephone Encounter - Charlotte Maguire RN - 07/19/2023 1045 EST Called Nakita to follow up on SOB and ED visit from last week. Patient reports yesterday she was starting to feel some improvements and actually felt good for a few hours in the afternoon but woke up today feeling horrible again. Wet cough, heavy in chest. She reports she took her last dose of prednisone last night. Thinks th breathing treatment she received in the ED irritated her lungs. No fevers. Flexeril did help back muscles, she is thankful for that. Will review with provider to get thoughts on course of illness and proceeding with treatment Monday. Have requested medical records from ED visit to be sent to our office for review. Spoke with Dr. Hyatt who recommended that patient do an additional round of prednisone since she wasfeeling better after that. Recommended that she do her home nebulizer treatments. Patient needs to call if she has fevers and if SOB increases needs another eval in the ED. -reviewed the above with Nakita who verbalized understanding. She will call with any questions, concerns or change in condition. Will send Prednisone prescription to local pharmacy. CHARLOTTE MAGUIRE RN documented in this encounter Plan of Treatment Not on file documented as of this encounter Visit Diagnoses Not on filedocumented in this encounter Care Teams Hand Grinder Relationship Specialty Start Date End Date None, Provider PCP - General 06/19/23 documented as of this encounter
--- OUTSIDE RECORDS SUMMARY | 2024-05-28 11:44 | XMS_ITS | Encounter Summary ---
Author Organization [facility] Address [address] [place] [address] Care Team Providers Care Retail Field Representative Name Role Phone None, Provider Primary Care Provider Unavailabl e Reason for Visit * Reason Onset Date Comments Appointment Related 08/21/2023 Encounter Details Date Type Department Care Team ([facility] st Contact Info) Description 08/21/2023 Telephone [facility] Center Hematology & Oncology - [address] [address] [place], [place] [address] [facility], [address] [place] [address] Appointment Related Social History Tobacco [...] encounter Miscellaneous Notes * Telephone Encounter - You Roy - 08/21/2023 1613 EST Went over appointments for 2/6 with pt she stated she is frustrated as she told people last week she didn't feel good felt like no one listened. She stated she was in bed all weekend and is now sicker. She is hesitant to come tomorrow for her first infusion she is asking if we can push infusion outa few days and prescribe prednisone and doxycycline to help with how she is feeling. I told her I would reach out to the team to see what they think and someone will seldovia back. She stated If she has her appts tomorrow she needs to be on the zoom sharp at 9 and leave shrap by 3 for infusion * Telephone Encounter - Alexey Polk - 08/21/2023 1600 EST Patient called with questions regarding tomorrow's appointments. Please call documented in this encounter Plan of Treatment Not on file documented as of this encounter Visit Diagnoses Not on filedocumented in this encounter Care Teams Retail Field Representative Relationship Specialty Start Date End Date None, Provider PCP - General 06/19/23 documented as of this encounter
--- OUTSIDE RECORDS SUMMARY | 2024-05-28 11:44 | XMS_ITS | Encounter Summary ---
Author Organization [facility] Address [address] [place] [address] Care Team Providers Care Disability Representative Name Role Phone None, Provider Primary Care Provider Unavailabl e Reason for Referral * Consult (Routine/Next Available) - Specialty Report Received Specialty Diagnoses / Procedures [facility] Referred To Contact Diagnoses Primary cancer of right upper lobe of lung (HCC-[facility]) Sarahi Hyatt MD Phone: tel: fax: Referral ID Status Reason Start Date Expiration Date Visits Requested Visits Authorized [id number] Specialty Report Received Specialty Services Required 09/27/2023 1 1 Question Answer Reason for Request: Establish care for lung cancer and chemotherapy [facility] Comments Pt would like to establish care closer to home Reason for Visit * Reason Onset Date Comments Cough 09/26/2023 Encounter Details Date Type Department Care Team (Late st Contact Info) Description 09/26/2023 Telephone [facility] Cancer Center Hematology & Oncology - [address] [address] Sarahi Hyatt MD [address] [place] [address], [address] [place] [address] Cough Social History Tobacco Use Types Packs/Day [...] encounter Miscellaneous Notes * Telephone Encounter - Kendell Vega RN - 09/29/2023 1504 EDT Called and spoke with Nakita. She mentions she is scheduled with [facility] on 10/15. Stem Teacher asked if she would like to book a FU with Dr. Hyatt, which she replied that she would. She mentioned 10AM is a good time for her. Stem Teacher will update scheduling. * Telephone Encounter - Dana March RN - 09/27/2023 1130 EDT After conferring with Dr Hyatt, pt made aware Dr Hyatt is agreeable for pt to receive care at the [facility]. Explained to pt she will need to establish care with a medicaloncologist at [facility] who will be writing the orders for chemo. Pt wasunder the impression Dr Hyatt would be writing the order. Pt made aware Dr Hyatt doesn't have prescribing rights at outside facilities. Pt notified she can continue to follow-up with Dr Hyatt throughouttreatment if she like and pt can transfer care back if she is not pleased with her care there. Pt verbalized understanding and is agreeable to the plan. Pt confirmed she would like to cancel the treatment appointment on 10/02. Oncology referral, recent office notes, pt demographics, insurance cards, and imaging reports have been faxed to [facility] [place] at [phone]. * Telephone Encounter - Dana March RN - 09/26/2023 1435 EDT Called and spoke with Ms Hancock who reports she is experiencing a productive cough with pain which is how she feels when she has a respiratory infection. Pt advised Dr yHatt would recommend pt contacther clinical business analyst to evaluate and treat. Inquired if pt would like to reschedule her chemo at this time since she has returned to [place]. Pt is interested in rescheduling but inquired about receiving treatment at the [facility] with Dr Hyatt overseeing her care. Received a call from a RN at pt's pulmonology clinic who confirmed pt reached out to their office and she is scheduled to be seen. RN wanted to inquire if pt had started tx at [facility]. Pt had told pulmonology clinic she was scheduled to start tx at the [facility] today or tomorrow.Notified RN pt did express interest in going to the [place] [facility] today which our office will work to arrange. * Telephone Encounter - Pebbles Arias - 09/26/2023 1338 EDT [facility] Incoming Call Active Symptoms/Disease Management Reported active symptoms: Chest pain Cough When did you start experiencing these symptoms? Today Are they constant or intermittent? Constant Have you ever experienced these symptoms before? Yes What have you tried to alleviate the symptoms? Any additional patient reported details: She states she is always sick. She has a cough and phlegm and would like to know what to do. She suspects it is an infection. Please call to discuss Pebbles Arias 09/26/2023 13:39 documented in this encounter Plan of Treatment Scheduled Referrals Name Type Priority Associated Diagnoses Order Schedule AMB CONS/FOLLOW UP ONCOLOGY Outpatient Referral Routine/Next Available Primary cancer of right upper lobe of lung (HCC-CMS) Expected: 10/04/2023 (Approximate), Expires: 09/26/2024 documented as of this encounter Visit Diagnoses Diagnosis Primary cancer of right upper lobe of lung (HCC-CMS)- Primary Malignant neoplasm of lung, unspecified laterality, unspecified part of lung (HCC-CMS) documented in this encounter Care Teams Disability Representative Relationship Specialty Start Date End Date None, Provider PCP - General 06/19/23 documented as of this encounter
--- OUTSIDE RECORDS SUMMARY | 2024-05-28 11:44 | XMS_ITS | Encounter Summary ---
Author Organization [facility] Address [address] [place] [address] Care Team Providers Care Marine Designer Name Role Phone None, Provider Primary Care Provider Unavailabl e Reason for Visit * Reason Onset Date Comments Appointment Related 09/25/2023 Encounter Details Date Type Department Care Team ([facility] st Contact Info) Description 09/25/2023 Telephone [facility] Cancer Center Hematology & Oncology - [address] [address] Sarahi Hyatt MD [address] [facility], [address] [place] [address] Appointment Related Social History Tobacco [...] encounter Miscellaneous Notes * Telephone Encounter - Ely Matthews - 09/25/2023 1139 EDT Called patient to rescheduled treatment. Mailbox full, no answer. documented in this encounter Plan of Treatment Not on file documented as of this encounter Visit Diagnoses Not on filedocumented in this encounter Care Teams Marine Designer Relationship Specialty Start Date End Date None, Provider PCP - General 06/19/23 documented as of this encounter
--- OUTSIDE RECORDS SUMMARY | 2024-05-28 11:44 | XMS_ITS | Encounter Summary ---
Author Organization [facility] Address [address] [place] [address] Care Team Providers Care Commercial Journeyman Electrician Name Role Phone None, Provider Primary Care Provider Unavailabl e Reason for Visit * Reason Onset Date Comments Appointment Related 08/14/2023 Encounter Details Date Type Department Care Team ([facility] st Contact Info) Description 08/14/2023 Telephone [facility] Cancer Center Hematology & Oncology - [address] [phone] Sarahi Hyatt MD [address] [facility], [address] [place] [address] Appointment Related Social History Tobacco [...] * Telephone Encounter - You Roy - 08/14/2023 7673 EST Spoke with pt did let her know / no wiggle room in chairs for now but can keep an eye on it. She was frustrated on why we can't ever give her times she needs [phone] did let her know that everyone likes that time and we try to accommodate but right now there isnt a time open in that timeframe. We can keep her on infusion scheduling radar if someone shuffles or comes off we can call her, left PAC# documented in this encounter Plan of Treatment Not on file documented as of this encounter Visit Diagnoses Not on filedocumented in this encounter Care Teams Commercial Journeyman Electrician Relationship Specialty Start Date End Date None, Provider PCP - General 06/19/23 documented as of this encounter
--- OUTSIDE RECORDS SUMMARY | 2024-05-28 11:44 | XMS_ITS | Encounter Summary ---
Author Organization [facility] Address [address] [place] [address] Care Team Providers Care Banking Officer Name Role Phone None, Provider Primary Care Provider Unavailabl e Reason for Visit * Reason Onset Date Comments Appointment Related 09/26/2023 Encounter Details Date Type Department Care Team ([facility] st Contact Info) Description 09/26/2023 Telephone [facility] Cancer Center Hematology & Oncology - [address] [address] Sarahi Hyatt MD [address] [facility], [address] [place] [address] Appointment Related Social History Tobacco [...] * Telephone Encounter - Ely Matthews - 09/27/2023 0844 EDT Called pt to schedule labs/pv/tx; no answer, no voicemail. Will send mychart. * Telephone Encounter - Pebbles Arias - 09/26/2023 1343 EDT HemOnc Incoming Call Appointment Related Which type of appointment is this for? Provider Visit Is this a return call from a hand plug shaper?Yes- [employer] hand plug shaper. If no answer, route telephone encounter to Hem/Onc Scheduling Pool Pebbles Arias 09/26/2023 13:43 documented in this encounter Plan of Treatment Not on file documented as of this encounter Visit Diagnoses Not on filedocumented in this encounter Care Teams Banking Officer Relationship Specialty Start Date End Date None, Provider PCP - General 06/19/23 documented as of this encounter
--- OUTSIDE RECORDS SUMMARY | 2024-05-28 11:44 | XMS_ITS | Encounter Summary ---
Author Organization [facility] Address [address] [place] [address] Care Team Providers Care Newborn Photographer Name Role Phone Unknown, Provider Primary Care Provider Unava ilable Encounter Details Date Type Department Care Team (Late st Contact Info) Description 06/16/2023 Documentation Visit [facility] Cancer Center Hematology & Oncology - [facility] [address] [place] [address] Alf Gonzales RN Social History Tobacco Use Types Packs/Day [...] Progress Notes * Alf Gonzales, MELQUIADES - 06/16/2023 4468 EST Pt calls reporting increasing prod cough and low grade fever . Pt reviewed with Dr Colvin and rx for antibiotics and steroids sent to pharmacy. Pt to report to urgent care if declines or symptoms worsen. Pt verbalizes understanding. documented in this encounter Plan of Treatment Not on file documented as of this encounter Visit Diagnoses Not on filedocumented in this encounter Care Teams Newborn Photographer Relationship Specialty Start Date End Date Unknown, Provider, PCP - General 03/10/23 06/18/23 documented as of this encounter
--- OUTSIDE RECORDS SUMMARY | 2024-05-28 11:44 | XMS_ITS | Encounter Summary ---
Author Organization [facility] Address [address] [place] [address] Care Team Providers Care Pit Hoist Operator Name Role Phone None, Provider Primary Care Provider Unavailabl e Reason for Visit * Reason Onset Date Comments Social Work 07/14/2023 financial Encounter Details Date Type Department Care Team (Late st Contact Info) Description 07/14/2023 Telephone [facility] Cancer Center Hematology & Oncology - [facility] [address] [place] [address] Kajal Fisher Social Work (financial) Social History Tobacco Use Types Packs/Day Years [...] * Telephone Encounter - Kajal Fisher - 07/14/2023 1312 EST Referral from Alf Gonzales RN- pt will be starting chemotherapy on 07/21/23 and would like to speak with SW about financial resources. Per Alf, pt doesn't want to consider tx closer to home. Connected with pt and reintroduced myself. Pt shared that she's driving herself to her infusion on 07/21/23 and will need $ for gas. I let pt know that I can mail her a gas card but with the holiday () on Monday, there's no guarantee that it will arrive in time. I encouraged pt to have a backup plan. Stated she could ask her son for $ and reimburse him later. Pt hasn't been able to work as much these past few months because of side effects from disease. Reports she has been homeless since January when she was kicked out of my apartment. She and her daughter have been housed at the [facility] since then. She's working with [employer] to find housing, has a section 8 voucher, but hasn't found any affordable rental options. Pt reiterated that she's working with [facility] and all the local agencies for benefits and resources. I made pt aware of the [facility] jose and that I can request these funds if she can bring me a household bill. Pt will bring a bill on 07/21. Reminded pt of our previous discussion about SSDI and I suggested that she consider applying. Understandably, she's worried about the 5 mo waiting period but I reminded her of the allowable [employer] allowance. Also, if pt is unable to work altogether she could qualify for SSI. Pt did express her desire to be here for her 16 y.o daughter. Says she has little to no support in her community and other than her daughter and 24 y.o son, she doesn't have anyone. Offered supportive listening and validated her concerns. Focused conversation around her family andtheir support. Plan- Mailed pt a $25 gas card. Let her know these are limited and we are very low on resources until theend july. Connect with pt on 07/21 during her infusion documented in this encounter Plan of Treatment Not on file documented as of this encounter Visit Diagnoses Not on filedocumented in this encounter Care Teams Pit Hoist Operator Relationship Specialty Start Date End Date None, Provider PCP - General 06/19/23 documented as of this encounter
--- OUTSIDE RECORDS SUMMARY | 2024-05-28 11:44 | XMS_ITS | Encounter Summary ---
Author Organization [facility] Address [address] [place] [address] Care Team Providers Care Packerhead Machine Operator Name Role Phone None, Provider Primary Care Provider Unavailabl e Reason for Visit * Reason Onset Date Comments Social Work 08/09/2023 financial Encounter Details Date Type Department Care Team (Late st Contact Info) Description 08/09/2023 Telephone [facility] Cancer Center Hematology & Oncology - [facility] [address] [place] [address] Kajal Fisher Social Work (financial) Social History [...] * Telephone Encounter - Kajal Fisher - 08/09/2023 1102 EST Pt sent me a bill for her car and asked that I apply for [employer] funding. Completed and submitted a [employer] application for $350 documented in this encounter Plan of Treatment Not on file documented as of this encounter Visit Diagnoses Not on filedocumented in this encounter Care Teams Packerhead Machine Operator Relationship Specialty Start Date End Date None, Provider PCP - General 06/19/23 documented as of this encounter
--- OUTSIDE RECORDS SUMMARY | 2024-05-28 11:44 | XMS_ITS | Encounter Summary ---
Author Organization [facility] Address [address] [place] [address] Care Team Providers Care Tube Closing Machine Operator Name Role Phone None, Provider Primary Care Provider Unavailabl e Encounter Details Date Type Department Care Team ([facility] st Contact Info) Description 07/13/2023 Orders Only [facility] Cancer Center Hematology & Oncology - [address] [phone] Sarahi Hyatt MD [address] [place] [address], [address] [place] [address] Primary cancer of right upper lobe of lung (HCC-CMS) (Primary Dx) Social History Tobacco Use Types [...] right upper lobe of lung (HCC-CMS)- Primary documented in this encounter Orders Appointment Requests Count Last Ordered Date Fi rst Ordered Date [facility]N CLINIC APPOINTMENT REQUEST 4 023 [facility]N INFUSION APPOINTMENT REQUEST - CALCULATED 4 07/13/2023 documented in this encounter Care Teams Tube Closing Machine Operator Relationship Specialty Start Date End Date None, Provider PCP - General 06/19/23 documented as of this encounter
--- OUTSIDE RECORDS SUMMARY | 2024-05-28 11:44 | XMS_ITS | Encounter Summary ---
Author Organization [facility] Address [address] [place] [address] Care Team Providers Care Roll Up Guider Operator Name Role Phone None, Provider Primary Care Provider Unavailabl e Reason for Visit * Reason Onset Date Comments Labs Only 08/02/2023 Encounter Details Date Type Department Care Team ([facility] st Contact Info) Description 08/02/2023 Telephone [facility] Cancer Center Hematology & Oncology - [address] [address] Sarahi Hyatt MD [address] [facility], [address] [place] [phone] Labs Only Social History Tobacco Use Types Packs/Day Years [...] Miscellaneous Notes * Telephone Encounter - Dana March RN - 08/02/2023 1118 EST Routed standing lab orders to [facility] again. Confirmed lab orders were received. Pt made aware. * Telephone Encounter - Alexey Polk - 08/02/2023 1040 EST Patient called states they called [facility] and they do not have the lab orders and scans. Provided a fax# [phone] documented in this encounter Plan of Treatment Not on file documented as of this encounter Visit Diagnoses Not on filedocumented in this encounter Care Teams Roll Up Guider Operator Relationship Specialty Start Date End Date None, Provider PCP - General 06/19/23 documented as of this encounter
--- OUTSIDE RECORDS SUMMARY | 2024-05-28 11:44 | XMS_ITS | Encounter Summary ---
Author Organization [facility] Address [address] [place] [address] Care Team Providers Care Summer Sessions Director Name Role Phone None, Provider Primary Care Provider Unavailabl e Reason for Referral * Radiology Services (Routine/Next Available) - Specialty Report Received Specialty Diagnoses / Procedures Referred By Za laird Referred To Contact Diagnoses Abdominal fullness in right upper quadrant Procedures US ABDOMEN LIMITED Nicolette Alvarado PA-C Phone: tel: fax: Referral ID Status Reason Start Date Expiration Date V isits Requested Visits Authorized [id number] Specialty Report Received 08/02/2023 1 1 Reason for Visit * Reason Onset Date Comments Labs Only 08/02/2023 Orders (Non Pre-visit) 08/02/2023 CT Scan Encounter Details Date Type Department Care Team ([facility] Contact Info) Description 08/02/2023 Telephone [facility] Cancer Center Hematology & Oncology - [address] [address] Sarahi Hyatt MD [address] [facility], [address] [place] [address] Labs Only; Orders (Non Pre-visit) (CT Scan/) Social History Tobacco Use Types Packs/Day Years [...] Telephone Encounter - Kendell Vega RN - 08/03/2023 1009 EST LVM with patient to discuss upcoming treatment, abdominal symptoms and labs. * Telephone Encounter - Macey Mcknight - 08/02/2023 1416 EST Deb from [facility] called and states that they received patient's lab orders. However patient keeps calling them stating a CT order should have been sent over too. Pleasefax CT Order to * Telephone Encounter - Dana March RN - 08/02/2023 1406 EST Called [facility] OP labs and confirmed again lab orders were received. Called and notified pt labs orders were received at [facility] and can be done on a walk in basis. Pt states she is looking for an order for a scan of her abdomen. Pt reports the scan was discussed with JOSE Howell at her recent office visit. Pt states the scan needs to be done priorto her starting chemotherapy. Pt also reports she is sick again and is requesting to speak with Nicolette Alvarado. Pt states she notified Nicolette she was getting sick at the office visit and now its happening again. After discussing with Nicolette Alvarado, pt called and made aware she will need to have labs done prior to tx but the abdominal scan does not need to happen prior to starting chemo. Pt states she does need to have the scan done prior to starting treatment because she is concerned something is wrong with her liver and needs to know this before putting poison into her body which could cause liver failure. Pt made aware our office will check LFTs on labs. Pt states she discussed having an urgentscan done for her abdominal symptoms and that has not been done. Pt discussed with Nicolettewill Alvarado at her recent office visit and is demanding to speak with Nicolette in regards to this. [place] [facility] made aware of request and need for order. * Telephone Encounter - Alexey Polk - 08/02/2023 1150 EST Patient calling again, states they called the lab after speaking with Dana and were told the labs still are not there. Asking to find out who confirmed that the labs were there. Please advise documented in this encounter Plan of Treatment Scheduled Orders Name Type Priority Associated Diagnoses Orde r Schedule US ABDOMEN LIMITED Imaging Routine Abdominal fullness in right upper quadrant Expected: 08/04/2023 (Approximate), Expires: 01/30/2025 documented as of this encounter Visit Diagnoses Diagnosis Abdominal fullness in right upper quadrant- Primary Other symptoms involving abdomen and pelvis documented in this encounter Care Teams Summer Sessions Director Relationship Specialty Start Date End Date None, Provider PCP - General 06/19/23 documented as of this encounter
--- OUTSIDE RECORDS SUMMARY | 2024-05-28 11:44 | XMS_ITS | Encounter Summary ---
Author Organization [facility] Address [address] [place] [address] Care Team Providers Care Import Coordinator Name Role Phone None, Provider Primary Care Provider Unavailabl e Reason for Visit * Reason Onset Date Comments Social Work 08/21/2023 financial Encounter Details Date Type Department Care Team (Late st Contact Info) Description 08/21/2023 Telephone [facility] Cancer Center Hematology & Oncology - [facility] [address] [place] [address] Kajal Fisher Social Work (financial) Social History [...] * Telephone Encounter - Kajal Fisher - 08/21/2023 1151 EST Pt sent me an email and asking if she was approved for [facility]. If so, wondering when she can expect acheck. I sent a message to [facility] to check on this. Pt asking for a gas card. I let her know I will meet her here in Clinic tomorrow and will bring her some gas cards. Addendum 08/22/23- Pt notified me by email yesterday that she did receive a check in the mail from [facility]. Chart review- pt canceled her infusion today stating she wasn't feeling well documented in this encounter Plan of Treatment Not on file documented as of this encounter Visit Diagnoses Not on filedocumented in this encounter Care Teams Import Coordinator Relationship Specialty Start Date End Date None, Provider PCP - General 06/19/23 documented as of this encounter
--- OUTSIDE RECORDS SUMMARY | 2024-05-28 11:44 | XMS_ITS | Encounter Summary ---
Author Organization [facility] Address [address] [place] [address] Care Team Providers Care Auto Porter Name Role Phone None, Provider Primary Care Provider Unavailabl e Encounter Details Date Type Department Care Team (Late st Contact Info) Description 08/10/2023 Orders Only [facility] Cancer Center Hematology & Oncology - [place] [address] [place], [place] [id number] Brittni Meyers RN Social History Tobacco Use Types Packs/Day [...] filedocumented in this encounter Care Teams Auto Porter Relationship Specialty Start Date End Date None, Provider PCP - General 06/19/23 documented as of this encounter
--- OUTSIDE RECORDS SUMMARY | 2024-05-28 11:44 | XMS_ITS | Encounter Summary ---
Author Organization [facility] Address [address] [place] [address] Care Team Providers Care Flatbed Driver Name Role Phone None, Provider Primary Care Provider Unavailabl e Reason for Visit * Reason Onset Date Comments Social Work 08/08/2023 outreach Encounter Details Date Type Department Care Team ([facility] st Contact Info) Description 08/08/2023 Telephone [facility] Cancer Center Hematology & Oncology - [facility] [address] [place] [address] Kajal Fisher Social Work (outreach) Social History Tobacco Use Types Packs/Day Years [...] * Telephone Encounter - Kajal Fisher - 08/08/2023 0910 EST LVM for pt and requested a call back. Left my direct phone # Addendum- Pt called back. Shared that she's found housing with the help of FRANCIS[place] J and very excited and relieved. She signed paperwork for a mobile home in [facility]. Her housing will be close to her work and her daughters school. Discussed pt's health and hope that she can focus on her cancer treatment now that housing has beenresolved. Made pt aware of her telemedicine appt with tomorrow. [facility] jose- pt will send me a bill for jose I offered to send her an email so she can send me a picture of a bill Plan- Email sent Available as needed for support and barriers to care documented in this encounter Plan of Treatment Not on file documented as of this encounter Visit Diagnoses Not on filedocumented in this encounter Care Teams Flatbed Driver Relationship Specialty Start Date End Date None, Provider PCP - General 06/19/23 documented as of this encounter
--- OUTSIDE RECORDS SUMMARY | 2024-05-28 11:44 | XMS_ITS | Encounter Summary ---
Author Organization [facility] Address [address] [place] [address] Care Team Providers Care Car Body Designer Name Role Phone Unknown, Provider MD Primary Care Provider Unava ilable Reason for Visit * Reason Onset Date Comments Appointment Related 05/29/2023 Encounter Details Date Type Department Care Team ([facility] st Contact Info) Description 05/29/2023 Telephone [facility] Cancer Center Hematology & Oncology - [address] [phone] Sarahi Hyatt MD [address] [place] [address], [address] [place] [address] Appointment Related Social History Tobacco [...] encounter Miscellaneous Notes * Telephone Encounter - Elaina Roman - 05/29/2023 1126 EST Called and left 2nd message for patient to call me to discuss appointment with Dr. Hyatt. Told her to call me and let me know if this is something she still wants to do and if not to let me know that as well. documented in this encounter Plan of Treatment Not on file documented as of this encounter Visit Diagnoses Not on filedocumented in this encounter Care Teams Car Body Designer Relationship Specialty Start Date End Date Unknown, Provider, PCP - General 03/10/23 06/18/23 documented as of this encounter
--- OUTSIDE RECORDS SUMMARY | 2024-05-28 11:44 | XMS_ITS | Encounter Summary ---
Author Organization [facility] Address [address] [place] [address] Care Team Providers Care Camera Assembler Name Role Phone None, Provider Primary Care Provider Unavailabl e Reason for Visit * Reason Onset Date Comments Appointment Related 07/25/2023 Encounter Details Date Type Department Care Team ([facility] st Contact Info) Description 07/25/2023 Telephone [facility] Cancer Center Hematology & Oncology - [address] [phone] Sarahi Hyatt MD [address] [facility], [address] [place] [address] Appointment Related Social History Tobacco [...] * Telephone Encounter - Nick Esparza - 07/25/2023 1610 EST Informed pt of appt on aug 10 at 1115 am start, left pac# documented in this encounter Plan of Treatment Not on file documented as of this encounter Visit Diagnoses Not on filedocumented in this encounter Care Teams Camera Assembler Relationship Specialty Start Date End Date None, Provider PCP - General 06/19/23 documented as of this encounter
--- OUTSIDE RECORDS SUMMARY | 2024-05-28 11:44 | XMS_ITS | Encounter Summary ---
Author Organization [facility] Address [address] [place] [address] Care Team Providers Care Forwarder Operator Name Role Phone None, Provider Primary Care Provider Unavailabl e Reason for Visit * Reason Onset Date Comments Appointment Related 08/07/2023 Encounter Details Date Type Department Care Team ([facility] st Contact Info) Description 08/07/2023 Telephone [facility] Cancer Center Hematology & Oncology - [address] [phone] Sarahi Hyatt MD [address] [facility], [address] [place] [address] Appointment Related Social History Tobacco [...] * Telephone Encounter - Nick Esparza - 08/07/2023 1555 EST Called pt to reschedule FUR to 08/09 with sheila Hyatt agreed documented in this encounter Plan of Treatment Not on file documented as of this encounter Visit Diagnoses Not on filedocumented in this encounter Care Teams Forwarder Operator Relationship Specialty Start Date End Date None, Provider PCP - General 06/19/23 documented as of this encounter
--- OUTSIDE RECORDS SUMMARY | 2024-05-28 11:44 | XMS_ITS | Encounter Summary ---
Author Organization [facility] Address [address] [place] [address] Care Team Providers Care Photostat Operator Name Role Phone None, Provider Primary Care Provider Unavailabl e Reason for Visit * Reason Onset Date Comments Appointment Related 07/27/2023 Encounter Details Date Type Department Care Team ([facility] st Contact Info) Description 07/27/2023 Telephone [facility] Cancer Center Hematology & Oncology - [address] [phone] Sarahi Hyatt MD [address] [facility], [address] [place] [address] Appointment Related Social History Tobacco [...] * Telephone Encounter - Nick Esparza - 07/27/2023 1316 EST Called pt and informed them of Jul 31 and appts. Pt agreed to look at Mychart for them and check email for zoom link documented in this encounter Plan of Treatment Not on file documented as of this encounter Visit Diagnoses Not on filedocumented in this encounter Care Teams Photostat Operator Relationship Specialty Start Date End Date None, Provider PCP - General 06/19/23 documented as of this encounter
--- OUTSIDE RECORDS SUMMARY | 2024-05-28 11:44 | XMS_ITS | Encounter Summary ---
Author Organization [facility] Address [address] [place] [address] Care Team Providers Care Bilingual Receptionist Name Role Phone None, Provider Primary Care Provider Unavailabl e Encounter Details Date Type Department Care Team (Late st Contact Info) Description 09/11/2023 Orders Only [facility] Cancer Center Hematology & Oncology - [facility] [address] [place], [place] [phone] Shaina Hutchinson RN Social History Tobacco Use Types Packs/Day [...] documented in this encounter Progress Notes * Shaina Hutchinson RN - 09/11/2023 1155 EST C1D1 treatment date updated to 09/13. documented in this encounter Plan of Treatment Not on file documented as of this encounter Visit Diagnoses Not on filedocumented in this encounter Care Teams Bilingual Receptionist Relationship Specialty Start Date End Date None, Provider PCP - General 06/19/23 documented as of this encounter
--- OUTSIDE RECORDS SUMMARY | 2024-05-28 11:44 | XMS_ITS | Encounter Summary ---
Author Organization [facility] Address [address] [place] [address] Care Team Providers Care Underground Repairer Name Role Phone None, Provider Primary Care Provider Unavailabl e Reason for Visit * Reason Onset Date Comments Follow-up 08/21/2023 Encounter Details Date Type Department Care Team ([facility] st Contact Info) Description 08/21/2023 Telephone [facility] Center Hematology & Oncology - [facility] [address] [place], [place] [phone] Dana March, MELQUIADES Follow-up Social History Tobacco Use Types Packs/Day Years [...] Telephone Encounter - Dana March RN - 08/21/2023 1641 EST Called and spoke with Ms Hancock who reports she isn't feeling well enough for treatment. Pt states she discussed with with Dr Hyatt last week but continues to feel unwell and doesn't want to proceed with treatment feeling this way. Per Dr Hyatt's last office note, hesitant to start treatment. Recurrent URTIs, likely due to obstruction from the large RUL mass. Ms Hancock made aware she will need tohave a physical assessment to receive medications for her symptoms. Pt adamately refuses to be seenat the urgent care or Emergency Department in [facility] due to past experiences. Pt doesn't currently have a PCP but is scheduled next week to establish care. Inquired if pt could travel outside of her town to another Urgency care. Ms Hancock was upset on the phone with these recommendations. Pt offered an appointment in our clinic for an assessment without starting treatment. Pt did not want to travel for that. Reviewed the importance of a physical assessment for proper treatment of her symptoms. Pt does have a local manager of creative services who she contact last week who was too busy but pt will attempt to contact them again tomorrow to be seen. Pt made aware our clinic can reschedule her treatment appointment but the first available infusion visit would be Monday or Monday next week. Pt requested the first available infusion appointment. Our scheduling team will be notified. Pt did request not to be scheduled before 10am due to a 2 hr commute but doesn't want to come back in the dark. She expressed concerns about feeling sick on her way home. Pt does not have anyone to provide transportation as recommended. Pt made aware she will be given premedications prior to tx to help with side effects. Pt reports she is very sensitive to medications and knows she will be sick. Pt does live with her 15 year old daughter but doesn't want to put an burden on her. Reviewed the plan with pt to contact her manager of creative services tomorrow for in person assessment, our office will reschedule provider visit and treatment to next available. Pt verbalized understanding, no barriers noted. documented in this encounter Plan of Treatment Not on file documented as of this encounter Visit Diagnoses Not on filedocumented in this encounter Care Teams Underground Repairer Relationship Specialty Start Date End Date None, Provider PCP - General 06/19/23 documented as of this encounter
--- OUTSIDE RECORDS SUMMARY | 2024-05-28 11:44 | XMS_ITS | Encounter Summary ---
Author Organization [facility] Address [address] [place] [address] Care Team Providers Care Welding Machine Operator Gas Name Role Phone None, Provider Primary Care Provider Unavailabl e Reason for Visit * Reason Onset Date Comments Labs Only 08/01/2023 Encounter Details Date Type Department Care Team (Late st Contact Info) Description 08/01/2023 Telephone [facility] Cancer Center Hematology & Oncology - [facility] [address] [place], [place] [phone] Dana March, RN Labs Only Social History Tobacco Use Types [...] Telephone Encounter - Dana March RN - 08/01/2023 1054 EST Called and left message for Ms Hancock to notify her lab orders have been routed to [facility] per pt request at office visit yesterday. documented in this encounter Plan of Treatment Not on file documented as of this encounter Visit Diagnoses Not on filedocumented in this encounter Care Teams Welding Machine Operator Gas Relationship Specialty Start Date End Date None, Provider PCP - General 06/19/23 documented as of this encounter
--- OUTSIDE RECORDS SUMMARY | 2024-05-28 11:44 | XMS_ITS | Encounter Summary ---
Author Organization [facility] Address [address] [place] [address] Care Team Providers Care Dining Room Attendant Name Role Phone None, Provider Primary Care Provider Unavailabl e Reason for Visit * Reason Comments Chemotherapy And Provider Visit Encounter Details Date Type Department Care Team ([facility] st Contact Info) Description 07/31/2023 16:00 EST Telemedicine [facility] Cancer Center Hematology & Oncology - [address] [address] Nicolette Alvarado, PALeviC [address] [place] [address], [address] [place] [phone] Primary cancer of right upper lobe of lung (HCC-CMS) (Primary Dx); Constipation, unspecified constipation type Social History Tobacco [...] documented in this encounter Progress Notes * Nicolette Alvarado PA-C - 07/31/2023 1600 EST Phone consult- unable to connect on televideo/Zoom. The pt consents to a phone visit, is at home/work, and I, their PA, am in my private office alone. Nakita Hancock is a 57 y.o.yo female whom I reach off site, to check in prior to planned chemotherapy, scheduled for tomorrow, and given for lung cancer. Chief Complaint Patient presents with Chemotherapy And Provider Visit ONCOLOGIC HX/TX: 1. Advanced (T4N2) non-small cell lung adenocarcinoma, likely metastatic. 09/2016: CT chest showed new RUL nodule. Was referred to [facility] but was not seen (unclear reason, can't tell from chart). 12/2021: CT chest done for chest pain. RUL lesion increased to 5.3 cm. Declined bx due to concern ofstimulating cancer growth. 11/2022: Repeat CT showed ongoing growth of RUL mass. 12/2022: Met with Dr Tex Colvin to discuss PET and bronchoscopic bx. PET: RUL mass >8cm, mediastinal/hilar adenopathy. MRI brain MARCO. A. 03/10/2023: Bronchscopy made dx. PD-L1 <1-10%. SUBJECTIVE: I reach Nakita at home. She was not able to connect via Zoom so we had a phone/audio visit only. She tells me that due to the predicted snowstorm tomorrow, [place] [facility] so will not come [facility] as scheduled to start chemo. Her URI symptoms have essentially resolved, however today she reports new symptoms of constipation and bloating, with a feelingof fullness in the right upper abdomen. No blood with stool, no change in stool color, and no weight changes. Appetite seems fairly normal although she feels like she gets full faster. No fever/chills. REVIEW OF SYMPTOMS: I went through a verbal review of symptoms with the patient. Symptoms as noted above. System review is otherwise without acute complaints. Past medical, surgical, family and social history reviewed and updated. Objective: There were no vitals taken for this visit. Phone visit- no visual assessment. Mental Status: mood appropriate, speech and thought process intact ASSESSMENT: Advanced NSCLC, scheduled to begin treatment tomorrow, with dose reduced pemetrexed+carboplatin (20% both agents to minimize significant side effects per patient preference. Her case was discussed in the past at tumor board, which determined radiation field too large for definitive concurrent chemoradiation. Thus, plan is for 4 cycles of treatment f/b consolidative radiation. Given upcoming snowstorm she wishes to cancel her planned treatment tomorrow. She also has not yet gotten baseline labwork and I encouraged her to go to her local hospital for these labs. She reports new constipation and a feeling of upper abdominal fullness, which I reviewed with Dr yHatt (after the patient's visit) PLAN: - I will notify staff that we need to reschedule chemotherapy and I advised Nakita she will hear from us with next possible appointments. - I encouraged her to go for baseline labs [place] - Per Dr Hyatt, OTC options to address constipation, with consideration of imaging if symptoms don'timproved with improved bowel function (I will message the patient with these recommendations) -- Follow up plan will depend upon lab results, and when we're able to reschedule chemotherapy. I spent a total of 25 minutes on the date of this encounter meeting with the patient and reviewing documentation/coordinating care as described in the above note. No procedures were performed at the time of the visit. Nicolette Alvarado PA-C 07/31/2023 15:53 documented in this encounter Plan of Treatment Not on file documented as of this encounter Visit Diagnoses Diagnosis Primary cancer of right upper lobe of lung (HCC-CMS)- Primary Constipation, unspecified constipation type documented in this encounter Discontinued Medications Medication Sig Discontinue Reason Start Date End Da te fluconazole (DIFLUCAN) 100 mg tablet Take 1 Tablet by mouth daily. 02/27/2023 07/31/2023 fluconazole (DIFLUCAN) 100 mg tablet Take 1 Tablet by mouth daily. 03/10/2023 07/31/2023 tiotropium (SPIRIVA) 18 mcg inhalation capsule Inhale 1 Capsule as directed daily. 12/26/2022 07/31/2023 amoxicillin-clavulanate (AUGMENTIN) 875-125 mg per tablet Take 1 Tablet by mouth daily. 06/16/2023 07/31/2023 doxycycline (ADOXA) 100 mg tablet Take 1 Tablet by mouth 2 times daily. 02/13/2023 07/31/2023 cyclobenzaprine (FLEXERIL) 10 mg tablet Take 1 Tablet by mouth 3 times daily as needed for Muscle Spasms. 07/14/2023 07/31/2023 documented as of this encounter Care Teams Dining Room Attendant Relationship Specialty Start Date End Date None, Provider PCP - General 06/19/23 documented as of this encounter
--- OUTSIDE RECORDS SUMMARY | 2024-05-28 11:44 | XMS_ITS | Encounter Summary ---
Author Organization [facility] Address [address] [place] [address] Care Team Providers Care Test Desk Trouble Locator Name Role Phone Unknown, Provider MD Primary Care Provider Unava ilable Encounter Details Date Type Department Care Team (Late st Contact Info) Description 06/13/2023 Documentation Visit [facility] Cancer Center Hematology & Oncology - [facility] [address] [place], [place] [id number] Alf Gonzales RN Social History Tobacco Use [...] Progress Notes * Alf Gonzales, MELQUIADES - 06/13/2023 1130 EST Pt called due to no show for Dr Edmar hernandez yesterday and answers. Stated she did not know about appointment although I did leave voice mail reminder and had spoken to her previously about appointment.Pt also reports did not hear from naturopathic provider but provider reports leaving her voice messages. Pt asked why she did not call me for appts and stated she did not want to bother me. Pt re instructed on lung cancer diagnosis and rec of systemic therapy and radiation and no treatment leading to and that she could call me at anytime. Pt agreeable to appts next week and scheduled for 06/21 however when I called her back voice mail is full. Pt son reached and given my direct number to have mother call me back. Will give pt direct # to [employer] when she returns call and have SW fu with pt as she reports needing financial assistance for transportation. documented in this encounter Plan of Treatment Not on file documented as of this encounter Visit Diagnoses Not on filedocumented in this encounter Care Teams Test Desk Trouble Locator Relationship Specialty Start Date End Date Unknown, Provider, PCP - General 03/10/23 06/18/23 documented as of this encounter
--- OUTSIDE RECORDS SUMMARY | 2024-05-28 11:44 | XMS_ITS | Encounter Summary ---
Author Organization [facility] Address [address] [place] [address] Care Team Providers Care Home Care Manager Name Role Phone Unknown, Provider MD Primary Care Provider Unava ilable Reason for Visit * Reason Onset Date Comments Appointment Related 06/13/2023 Encounter Details Date Type Department Care Team ([facility] st Contact Info) Description 06/13/2023 Telephone [facility] Cancer Center Hematology & Oncology - [address] [id number] Sarahi Hyatt MD [address] [place] [address], [address] [place] [address] Appointment Related Social History Tobacco [...] encounter Miscellaneous Notes * Telephone Encounter - AbelKike barcenasa - 06/13/2023 1159 EST Called over to Dr. Kajal Luis's office and spoke with Lyssa who stated that they called over to patient and left her a message to call the office (that was on 05/25) and patient never returned her call. Alf is calling patient and he is giving her the number to call herself if she wants this visit. I asked Lyssa to call one more time and if she had to leave a message just to sit back and see if she calls back. documented in this encounter Plan of Treatment Not on file documented as of this encounter Visit Diagnoses Not on filedocumented in this encounter Care Teams Home Care Manager Relationship Specialty Start Date End Date Unknown, Provider, PCP - General 03/10/23 06/18/23 documented as of this encounter
--- OUTSIDE RECORDS SUMMARY | 2024-05-28 11:44 | XMS_ITS | Encounter Summary ---
Author Organization [facility] Address [address] [place] [address] Care Team Providers Care Call Center Support Representative Name Role Phone None, Provider Primary Care Provider Unavailabl e Reason for Visit * Reason Comments Chemotherapy And Provider Visit Encounter Details Date Type Department Care Team ([facility] st Contact Info) Description 07/21/2023 10:40 EST Telemedicine [facility] Cancer Center Hematology & Oncology - [address] [address] Cris Ron PA-C [address] [place] [address], [address] [place] [phone] Primary cancer of right upper lobe of [...] Refills Last Filled Start Date End Date folic acid (FOLVITE) 400 mcg tablet Take 1 Tablet by mouth daily. 30 Tablet 2 07/21/2023 dexAMETHasone (DECADRON) 4 mg tablet Take 1 tablet by mouth twice daily on day before and day after treatment. Take 4 mg daily on day 3 and day 4 then stop. Repeat with each chemo cycle. 24 Tablet 07/21/2023 prochlorperazine (COMPAZINE) 10 mg tablet Take 1 Tablet by mouth every 6 hours as needed for Nausea. 30 Tablet 1 07/21/2023 ondansetron (ZOFRAN-ODT) 4 mg disintegrating tablet Take 1-2 Tablets by mouth every 8 hours as needed for Nausea. Wait to start until >48 hours after chemo. 10 Tablet 2 07/21/2023 documented in this encounter Progress Notes * Cris Ron PA-C - 07/21/2023 1040 EST The concept of ???Telemedicine?? has been described to the patient.? Patient has been informed of the anticipated benefits and possible risks.? Patient understands the information provided regardingtelemedicine, has had the opportunity to ask questions about this information, and all questions have been answered to patient???s satisfaction. Patient consents for the use of telemedicine in his/her medical care and authorizes the transmission of any relevant medical information to providers and their staff involved in patient???s medical or mental health care. Patient understands that they maybe responsible for copays, deductible or coinsurance for this service. TELEMEDICINE VIDEO VISIT Today's visit was provided through telemedicine video conferencing: I have reviewed the appropriateness of using video technology with the patient with regards to today's visit. The location of the patient : Home Patient location state: Visit Location State: [place] The location of the provider: Office Provider location state: Visit Location State: [place] The following people and their roles were present for today's visit: Appointment Provider: Cris Ron PA-C [facility] MEDICAL ONCOLOGY PROGRESS NOTE PATIENT: Nakita Hancock : 1965 ENCOUNTER DATE: 07/21/2023 ATTENDING ONCOLOGIST: Sarahi Hyatt CC: NSCLC ONCOLOGIC HX/TX: 1. Advanced (T4N2) non-small cell lung adenocarcinoma, likely metastatic. 09/2016: CT chest showed new RUL nodule. Was referred to [facility] but was not seen (unclear reason, can't tell from chart). 12/2021: CT chest done for chest pain. RUL lesion increased to 5.3cm. Declined bx due to concern of stimulating cancer growth. 11/2022: Repeat CT showed ongoing growth of RUL mass. 12/2022: Met with Dr Tex Colvin to discuss PET and bronchoscopic bx. PET: RUL mass >8cm, mediastinal/hilar adenopathy. MRI brain MARCO. A. 03/10/2023: Bronchscopy made dx. PD-L1 <1-10%. INTERVAL HISTORY: Feeling much better today, feels like she turned a corner with the additional days of prednisone that she was given by Dr. Hyatt. She is still completing course of doxycycline. No fevers or chills. The coughing, pain in bronchial tubes and congestion started before [place] but she didn't end up being seen until several days after in the local ED. She was discharged at that time with abx and prednisone course. This morning was prepared to come in for infusion but car wouldn't start so she had to cancel. She is hoping to come in next week instead. Anxious about potential side effects of treatment. Questions about supplements. REVIEW OF SYSTEMS: Complete review of systems is negative, except as otherwise described above in Interval History/HPI. The following medical history, surgical history and social history are carried forward from previous documentation for the purposes of clinical reference and update today, as pertinent. MEDICAL HISTORY: Past Medical History: Diagnosis Date Anxiety 03/01/23 not on any meds, doesn't like they make her feel Asthma 03/01/23 uses albuterol inhaler 2-3x/day, nebs daily Back pain 03/01/23 herniated disc mid back COPD (chronic obstructive pulmonary disease) ([facility]) Noted 02/24/23 per pulmonary note Deviated nasal septum 03/01/23 on left Exercise involving walking 03/01/23 unable to climb stairs wo SOB History of general anesthesia 03/01/23 no issues Lung mass 03/01/23 bronch scheduled Mass of upper lobe of right lung Per pulmonary note 12/26/22 Migraine with aura, with intractable migraine, so stated, with status migrainosus 03/01/23 last one last year, takes alieve Shortness of breath 03/01/23 with activity SURGICAL HISTORY: Past Surgical History: Procedure Laterality Date COLONOSCOPY 2010 and endoscopy SOCIAL HISTORY: Social History Socioeconomic History Marital status: Single Spouse name: Not on file Number of children: Not on file Years of education: Not on file Highest education level: Not on file Occupational History Not on file Tobacco Use Smoking status: Every Day Current packs/day: 1.00 Average packs/day: 1 pack/day for 26.0 years (26.0 ttl pk-yrs) Types: Cigarettes Smokeless tobacco: Never Substance and Sexual Activity Alcohol use: Yes Comment: occ Drug use: Never Sexual activity: Not on file Other Topics Concern Not on file Social History Narrative Not on file Social Determinants of Health Financial Resource Strain: Not on file Food Insecurity: Not on file Transportation Needs: Not on file Physical Activity: Not on file Stress: Not on file Social Connections: Not on file Housing Stability: Not on file ALLERGIES: Allergies Allergen Reactions Other - See Comments All Narcotics MEDICATIONS: Current Outpatient Medications Medication Sig Dispense Refill albuterol (ACCUNEB) 1.25 mg/3 mL nebulizer solution Inhale 3 mL as directed 3 times daily. ALBUTEROL INHL Inhale as directed. amoxicillin-clavulanate (AUGMENTIN) 875-125 mg per tablet Take 1 Tablet by mouth daily. 14 Tablet 1 ascorbic acid, vitamin C, (VITAMIN C) 500 mg tablet Take 1 Tablet by mouth daily. Cholecalciferol, Vitamin D3, 10 mcg (400 unit) tablet Take 1 Tablet by mouth daily. cyclobenzaprine (FLEXERIL) 10 mg tablet Take 1 Tablet by mouth 3 times daily as needed for Muscle Spasms. 30 Tablet 0 doxycycline (ADOXA) 100 mg tablet Take 1 Tablet by mouth 2 times daily. (Patient not taking: Reported on 04/17/2023) 20 Tablet 0 ephedrine sulfate (BRONKAID MAX ORAL) Take by mouth. fluconazole (DIFLUCAN) 100 mg tablet Take 1 Tablet by mouth daily. (Patient not taking: Reported on04/17/2023) 5 Tablet 0 fluconazole (DIFLUCAN) 100 mg tablet Take 1 Tablet by mouth daily. (Patient not taking: Reported on04/17/2023) 14 Tablet 1 naproxen sodium (ALEVE ORAL) Take by mouth. predniSONE (DELTASONE) 20 mg tablet Take 2 Tablets by mouth daily for 5 days. 10 Tablet 0 tiotropium (SPIRIVA) 18 mcg inhalation capsule Inhale 1 Capsule as directed daily. (Patient not taking: Reported on 04/17/2023) 30 Capsule 11 ZINC ORAL Take 50 mcg by mouth. No current facility-administered medications for this visit. PHYSICAL EXAM: There were no vitals taken for this visit. General: Comfortably seated female, in no acute distress HEENT: Normocephalic, atraumatic, pupils equal round and reactive to light Neurologic: alert and oriented, CN II-XII grossly intact, no focal deficits, gait steady Psychologic: Appropriate affect and responses Musculoskeletal: Moving all extremities Dermatologic: No jaundice ECOG 0 LABS: N/A IMAGING & STUDIES: N/A ASSESSMENT & PLAN: Nakita Hancock is a 57 y.o. female w/ advanced NSCLC, scheduled to begin treatment today with dose reduced pemetrexed+carboplatin (20% both agents to minimize significant side effects per patient preference. Case was discussed at tumor board which determined radiation field too large for definitive concurrent chemoradiation. Thus, plan is for 4 cycles of treatment f/b consolidative radiation. Pt had to cancel today's tx d/t car troubles this AM. She is feeling much improved from prior respiratory illness last week. She will complete course of antibiotics and prednisone as prescribed and we will work to reschedule her start of treatment to next week. We reviewed some of the potential side effects of carboplatin+pemetrexed regimen and what to expect. Encouraged to send list of supplements via patient portal to review by pharmacy. RETURN TO CLINIC: 1wk to start treatment Patient expressed understanding and agreement with the plan of care and agrees to contact the office in the interim if develops new or worsening symptoms. Total time spent on 07/21/2023 for this visit in [id number]-qn-hybe and non pjsz-tr-uqso time reviewing, documenting and obtaining clinical information, coordinating with the care team and/or other specialists and counseling the patient: 30 minutes. Cris Ron PA-C documented in this encounter Miscellaneous Notes * Addendum Note - Cris Ron PA-C - 07/21/2023 1040 ESTAddended by: CRIS RON on: 07/21/2023 13:35 Modules accepted: Orders * Addendum Note - Cris Ron PA-C - 07/21/2023 1040 ESTAddended by: CRIS RON on: 07/21/2023 13:38 Modules accepted: Orders documented in this encounter Plan of Treatment Not on file documented as of this encounter Visit Diagnoses Diagnosis Primary cancer of right upper lobe of lung (HCC-CMS)- Primary documented in this encounter Care Teams Call Center Support Representative Relationship Specialty Start Date End Date None, Provider PCP - General 06/19/23 documented as of this encounter
--- OUTSIDE RECORDS SUMMARY | 2024-05-28 11:44 | XMS_ITS | Encounter Summary ---
Author Organization [facility] Address [address] [place] [address] Care Team Providers Care Channel Installer Name Role Phone Unknown, Provider Primary Care Provider Unava ilable Reason for Visit * Reason Onset Date Comments Social Work 06/13/2023 Cost of travel Encounter Details Date Type Department Care Team (Late st Contact Info) Description 06/13/2023 Telephone [facility] Cancer Center Hematology & Oncology - [facility] [address] [place], [place] [phone] Kajal Fisher Social Work (Cost of travel) Social History Tobacco Use Types Packs/Day Years [...] * Telephone Encounter - Kajal Fisher - 06/13/2023 1245 EST Called pt at the request of Alf Gonzales RN. Pt has missed two appointments with Dr. Hyatt and when he spoke with her today she said cost of travel is a hardship. I offered to mail pt 2 $25 gas cards for her appointment with Dr. Hyatt on 06/21/23. She indicated this would be helpful. Pt shared that she lives in [place] and had delayed treatment for her lung cancer due to a poor experience she had with a surgeon at [facility]. [place] the surgeon was rude to her and was trying to pressure her into surgery. Pt shared that she hasn't been able to work as much because of her health. 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 Reports that she has connected with every resource I can get my hands on. She has [employer] [address], Section 8, fuel assistance and Medicaid. Reports she's been looking for housing for the past year with no luck. Is working with local agencies and isn't in jeopardy of losing her current housing and didn't specify why she wanted to move. I mentioned SSDI as an option depending on her side effects from disease and treatment. Says she's aware of this option and the 5 mo waiting period. I made her aware of [employer] and that she can work while collecting SSDI as long as she stays under the allowable income. Pt asked about services and resources available through the Cancer Center. Discussed practical resources like lodging, cost of travel and CPSF. Also discussed our psychosocial services including support groups and counseling. Pt declined a referral to these at this time. I will mail her this information after our call. Asked pt if she would consider seeking tx closer to home. [facility] is available in [place]. Said it was because of the surgeon she mentioned earlier in our conversation. I suggested that she discuss this with Dr. Hyatt as she could refer pt to a medical oncologist and perhaps she would have a better experience. I encouraged pt to leave this option open as tx closer [facility] would likely work best for pt. I gave pt my contact information and offered to call her after her meeting with Dr Hyatt. Will mail her 2 $25 gas cards and a list of our supportive services. documented in this encounter Plan of Treatment Not on file documented as of this encounter Visit Diagnoses Not on filedocumented in this encounter Care Teams Channel Installer Relationship Specialty Start Date End Date Unknown, Provider, PCP - General 03/10/23 06/18/23 documented as of this encounter
--- OUTSIDE RECORDS SUMMARY | 2024-05-28 11:44 | XMS_ITS | Encounter Summary ---
Author Organization [facility] Address [address] [place] [address] Care Team Providers Care Felt Finisher Name Role Phone None, Provider Primary Care Provider Unavailabl e Reason for Visit * Reason Onset Date Comments Appointment Related 07/18/2023 Encounter Details Date Type Department Care Team ([facility] st Contact Info) Description 07/18/2023 Telephone [facility] Cancer Center Hematology & Oncology - [address] [phone] Sarahi Hyatt MD [address] [facility], [address] [place] [address] Appointment Related Social History Tobacco [...] * Telephone Encounter - Nick Esparza - 07/18/2023 0959 EST Informed pt labs orders had been sent to [facility] for upcoming tx. Pt agreed to reach out for labs. documented in this encounter Plan of Treatment Not on file documented as of this encounter Visit Diagnoses Not on filedocumented in this encounter Care Teams Felt Finisher Relationship Specialty Start Date End Date None, Provider PCP - General 06/19/23 documented as of this encounter
--- OUTSIDE RECORDS SUMMARY | 2024-05-28 11:44 | XMS_ITS | Encounter Summary ---
Author Organization [facility] Address [address] [place] [address] Care Team Providers Care Pulp Tester Name Role Phone None, Provider Primary Care Provider Unavailabl e Reason for Visit * Reason Onset Date Comments Coordination Of Care 07/21/2023 Encounter Details Date Type Department Care Team (Late st Contact Info) Description 07/21/2023 Telephone [facility] Cancer Center Hematology & Oncology - [facility] [address] [place] [address] Kendell Vega, RN Coordination Of Care Social History Tobacco Use Types Packs/Day [...] Telephone Encounter - Kendell Vega RN - 07/21/2023 4373 EST Spoke with Nakita to work on getting her rescheduled for next week's treatment as she was unable to get to D1C1 treatment today d/t car issues. Patient said next week either Monday, or Monday was best. Clinical Leader will let scheduling/dry charge process attendant know. documented in this encounter Plan of Treatment Not on file documented as of this encounter Visit Diagnoses Not on filedocumented in this encounter Care Teams Pulp Tester Relationship Specialty Start Date End Date None, Provider PCP - General 06/19/23 documented as of this encounter
--- OUTSIDE RECORDS SUMMARY | 2024-05-28 11:44 | XMS_ITS | Encounter Summary ---
Author Organization [facility] Address [address] [place] [address] Care Team Providers Care Campground Manager Name Role Phone None, Provider Primary Care Provider Unavailabl e Reason for Visit * Reason Onset Date Comments Follow-up 08/22/2023 Encounter Details Date Type Department Care Team (Late st Contact Info) Description 08/22/2023 Telephone [facility] Cancer Center Hematology & Oncology - [facility] [address] [place], [place] [phone] Brittni Meyers RN Follow-up Social History Tobacco Use Types Packs/Day [...] encounter Miscellaneous Notes * Telephone Encounter - Brittni Meyers RN - 08/22/2023 1228 EST Called and spoke with Laura documented in this encounter Plan of Treatment Not on file documented as of this encounter Visit Diagnoses Not on filedocumented in this encounter Care Teams Campground Manager Relationship Specialty Start Date End Date None, Provider PCP - General 06/19/23 documented as of this encounter
--- OUTSIDE RECORDS SUMMARY | 2024-05-28 11:44 | XMS_ITS | Encounter Summary ---
Author Organization [facility] Address [address] [place] [address] Care Team Providers Care Molding Machine Operator Helper Name Role Phone None, Provider Primary Care Provider Unavailabl e Reason for Visit * Reason Onset Date Comments Other 07/19/2023 Encounter Details Date Type Department Care Team ([facility] st Contact Info) Description 07/19/2023 Telephone [email or web address] Cancer Center Hematology & Oncology - [address] [address] Sarahi Hyatt MD [address] [facility], [address] [place] [address] Other Social History Tobacco Use Types Packs/Day Years [...] encounter Miscellaneous Notes * Telephone Encounter - Otilia Armstrong - 07/19/2023 1134 EST REQUESTED RECENT ED NOTES FAXED TO US FROM [facility] 07/13/23. Otilia Armstrong 07/19/2023 11:34 documented in this encounter Plan of Treatment Not on file documented as of this encounter Visit Diagnoses Not on filedocumented in this encounter Care Teams Molding Machine Operator Helper Relationship Specialty Start Date End Date None, Provider PCP - General 06/19/23 documented as of this encounter
--- OUTSIDE RECORDS SUMMARY | 2024-05-28 11:44 | XMS_ITS | Encounter Summary ---
Author Organization [facility] Address [address] [place] [address] Care Team Providers Care Pit Clerk Name Role Phone None, Provider Primary Care Provider Unavailabl e Reason for Visit * Reason Onset Date Comments Coordination Of Care 07/31/2023 Encounter Details Date Type Department Care Team (Late st Contact Info) Description 07/31/2023 Telephone [facility] Hematology & Oncology - [facility] [address] [place] [address] Kendell Vega, RN Coordination Of Care Social [...] Telephone Encounter - Kendell Vega RN - 07/31/2023 0857 EST Art Tracer called patient to check in with her and make sure she is getting her labs drawn at [facility] before her 1600 appointment with Corrine Alvarado today. Patient mentioned I don't know if [facility] is open given the holiday. Art Tracer called [facility] and got confirmation that the lab is open. Art Tracer called back patient to let them know they're open and they just need to call and make an appointment. Patient is aware. Patient called back and mentioned she has not been able to get an appointment with [facility] and is waiting for them to call her back. She also mentioned she can't make it to her 830AM infusion and has told our office this before. She said she could be here for 10AM. Art Tracer will update scheduling. documented in this encounter Plan of Treatment Not on file documented as of this encounter Visit Diagnoses Not on filedocumented in this encounter Care Teams Pit Clerk Relationship Specialty Start Date End Date None, Provider PCP - General 06/19/23 documented as of this encounter
--- OUTSIDE RECORDS SUMMARY | 2024-05-28 11:44 | XMS_ITS | Encounter Summary ---
Author Organization [facility] Address [address] [place] [address] Care Team Providers Care Family Court Justice Name Role Phone None, Provider Primary Care Provider Unavailabl e Reason for Visit * Reason Onset Date Comments Appointment Related 08/14/2023 Encounter Details Date Type Department Care Team ([facility] st Contact Info) Description 08/14/2023 Telephone [facility] Cancer Center Hematology & Oncology - [address] [phone] Sarahi Hyatt MD [address] [facility], Level 2 [place] [address] Appointment Related Social History Tobacco [...] * Telephone Encounter - Nick Esparza - 08/14/2023 1526 EST Pt wants 2/5 appointment times changed. documented in this encounter Plan of Treatment Not on file documented as of this encounter Visit Diagnoses Not on filedocumented in this encounter Care Teams Family Court Justice Relationship Specialty Start Date End Date None, Provider PCP - General 06/19/23 documented as of this encounter
--- OUTSIDE RECORDS SUMMARY | 2024-05-28 11:44 | XMS_ITS | Encounter Summary ---
Author Organization [facility] Address [address] [place] [address] Care Team Providers Care National Dedicated Truck Driver Name Role Phone None, Provider Primary Care Provider Unavailabl e Reason for Visit * Reason Onset Date Comments Follow-up 08/04/2023 Encounter Details Date Type Department Care Team ([facility] st Contact Info) Description 08/04/2023 Telephone [facility] Cancer Center Hematology & Oncology - [facility] [address] [place], [place] [id number] Phillip Whelan, RN Follow-up Social History Tobacco Use Types [...] Refills Last Filled Start Date End Date polyethylene glycol 3350 (MIRALAX) 17 gram packet Take 17 g by mouth daily. 5 Packet 08/04/2023 documented in this encounter Miscellaneous Notes * Addendum Note - Phillip Whelan RN - 08/04/2023 1705 ESTAddended by: PHILLIP WHELAN on: 08/04/2023 17:05 Modules accepted: Orders * Telephone Encounter - Phillip Whelan RN - 08/04/2023 1701 EST Patient called patient and discussed the results of her recent labs and ultrasound from [facility]. Per Dr. Hyatt her US looks normal and so do her labs. Patient expressed concerns as to why she has symptoms of feeling uncomfortable and full. Material Requisitioner asked if she picked up stool softners and miralax to try per our last conversation. Material Requisitioner mentioned she only picked up stool softeners as the miralax was too expensive. She mentioned she had a small BM this morning. Patient expressed interest in speeking with Dr. Hou before treatment. Material Requisitioner called back patient and LVM about her upcoming Zoom with Dr. Hyatt on 08/07. Requested Prescriptions Signed Prescriptions Disp Refills polyethylene glycol 3350 (MIRALAX) 17 gram packet 5 Packet 0 Sig: Take 17 g by mouth daily. Authorizing Provider: ANNETTE HYATT Ordering User: PHILLIP WHELAN Material Requisitioner ordered Miralax to see if she could get it covered through insurance. * Telephone Encounter - Phillip Whelan RN - 08/04/2023 1323 EST LVM with patient to see if she is going to her scheduled US at [facility] for 1:20 and that we will FU after results are faxed and reviewed. documented in this encounter Plan of Treatment Not on file documented as of this encounter Visit Diagnoses Not on filedocumented in this encounter Care Teams National Dedicated Truck Driver Relationship Specialty Start Date End Date None, Provider PCP - General 06/19/23 documented as of this encounter
--- OUTSIDE RECORDS SUMMARY | 2024-05-28 11:44 | XMS_ITS | Encounter Summary ---
Author Organization [facility] Address [address] [place] [address] Care Team Providers Care Stacker Operator Name Role Phone Unknown, Provider Primary Care Provider Unava ilable Encounter Details Date Type Department Care Team (Late st Contact Info) Description 05/29/2023 Documentation Visit [facility] Hematology & Oncology - [facility] [address] [place] [address] Alf Gonzales RN Social History Tobacco Use [...] this encounter Progress Notes * Alf Gonzales, RN - 05/29/2023 0943 EST Pt no show for Dr Hyatt appointment which I had confirmed she was aware of. In my last phone conversation with pt she informed of lung cancer diagnosis , and recent CT results and not seeking treatment could lead to and verbalizes understanding of that. VM left about no show again with no return call. Will sent letter with reminders about appt with Roby documented in this encounter Plan of Treatment Not on file documented as of this encounter Visit Diagnoses Not on filedocumented in this encounter Care Teams Stacker Operator Relationship Specialty Start Date End Date Unknown, Provider, PCP - General 03/10/23 06/18/23 documented as of this encounter
--- OUTSIDE RECORDS SUMMARY | 2024-05-28 11:44 | XMS_ITS | Encounter Summary ---
Author Organization [facility] Address [address] [place] [address] Care Team Providers Care Day Care Home Provider Name Role Phone None, Provider Primary Care Provider Unavailabl e Reason for Visit * Reason Onset Date Comments Appointment Related 08/21/2023 Encounter Details Date Type Department Care Team ([facility] st Contact Info) Description 08/21/2023 Telephone [facility] Cancer Center Hematology & Oncology - [address] [address] Sarahi Hyatt MD [address] [facility], [address] [place] [address] Appointment Related Social History Tobacco [...] * Telephone Encounter - Nick Esparza - 08/21/2023 1631 EST Patient cannot make it as she's sick. Following up with Edmar with possibility of asking patient to seek out medical emotional support(?) and [place]. documented in this encounter Plan of Treatment Not on file documented as of this encounter Visit Diagnoses Not on filedocumented in this encounter Care Teams Day Care Home Provider Relationship Specialty Start Date End Date None, Provider PCP - General 06/19/23 documented as of this encounter
--- OUTSIDE RECORDS SUMMARY | 2024-05-28 11:44 | XMS_ITS | Encounter Summary ---
Author Organization [facility] Address [address] [place] [address] Care Team Providers Care International Guest Coordinator Name Role Phone None, Provider Primary Care Provider Unavailabl e Reason for Visit * Reason Onset Date Comments Returning Call 08/03/2023 Encounter Details Date Type Department Care Team ([facility] st Contact Info) Description 08/03/2023 Telephone [facility] Cancer Center Hematology & Oncology - [address] [phone] Sarahi Hyatt MD 111 [facility], [address] [place] [address] Returning Call Social History Tobacco Use Types Packs/Day Years [...] Encounter - Kendell Vega RN - 08/03/2023 1127 EST Boot Repairer spoke with Nakita about several concerns. Patient mentions she has been bloated and has hadon and off again constipation for 2 weeks. She mentions her RUQ is tender and when she slouches it can be painful in that area. Patient also mentions she has been experiencing liver flushes, which she mentions it's like a hot flash, but in the liver. Boot Repairer chatted with patient about starting a stool softner and miralax once daily to see if that helps with abdominal symptoms. Boot Repairer mentioned our office ordered an abdominal US to check in on these symptoms. Patient was relieved to hear, and said Good, because I will not start treatment until we look into this as treatment could be detrimental to my liver. Boot Repairer expressed the importance of patient getting labs so we can assess function of her liver. Patient mentioned she has an appointment at [facility] at 14:45 today. Boot Repairer will work with scheduling to get US set up at [facility]. * Telephone Encounter - Tio Swanson - 08/03/2023 1110 EST Patient returning call to the nurse documented in this encounter Plan of Treatment Not on file documented as of this encounter Visit Diagnoses Not on filedocumented in this encounter Care Teams International Guest Coordinator Relationship Specialty Start Date End Date None, Provider PCP - General 06/19/23 documented as of this encounter
--- OUTSIDE RECORDS SUMMARY | 2024-05-28 11:44 | XMS_ITS | Encounter Summary ---
Author Organization [facility] Address [address] [place] [address] Care Team Providers Care Ear Mold Laboratory Technician Name Role Phone None, Provider Primary Care Provider Unavailabl e Reason for Visit * Reason Onset Date Comments Appointment Related 07/21/2023 Encounter Details Date Type Department Care Team ([facility] st Contact Info) Description 07/21/2023 Telephone [facility] Cancer Center Hematology & Oncology - [address] [address] Sarahi Hyatt MD 111 [facility], [address] [place] [address] Appointment Related Social History Tobacco [...] encounter Miscellaneous Notes * Telephone Encounter - Pebbles Arias - 07/21/2023 1019 EST The patient would like a call from Kajal documented in this encounter Plan of Treatment Not on file documented as of this encounter Visit Diagnoses Not on filedocumented in this encounter Care Teams Ear Mold Laboratory Technician Relationship Specialty Start Date End Date None, Provider PCP - General 06/19/23 documented as of this encounter
--- OUTSIDE RECORDS SUMMARY | 2024-05-28 11:44 | XMS_ITS | Encounter Summary ---
Author Organization [facility] Address [address] [place] [address] Care Team Providers Care Or Director Name Role Phone None, Provider Primary Care Provider Unavailabl e Reason for Visit * Reason Comments Lung Cancer Follow-up * Consult (Routine) - Authorization Not Required Specialty Diagnoses / Procedures [facility] To Contact Hematology and Oncology Diagnoses Lung cancer ([facility] Tex Colvin MD Phone: tel: fax: [facility] Hematology & Oncology [address] [address] Phone: tel: fax: Referral ID Status Reason Start Date Expiration Date Visits Requested Visits Authorized [id number] Authorization Not Required 1 1 Encounter Details Date Type Department Care Team (Late st Contact Info) Description 06/21/2023 14:30 EST Office Visit [facility] Hematology & Oncology [address] [phone] Sarahi Hyatt MD [address] [place] [address], [facility] [address] [place] [address] Malignant neoplasm of upper lobe of right lung (HCC-CMS) (Primary Dx) Social History Tobacco [...] documented in this encounter Progress Notes * Sarahi Hyatt MD - 06/21/2023 1430 EST 06/21/2023 NEW PATIENT PATIENT: Nakita Hancock REFERRING PROVIDER: Tex Colvin,* CHIEF COMPLAINT New lung cancer ASSESSMENT 57yo woman with advanced (T4N2) non-small cell lung adenocarcinoma, likely metastatic. She has a large primary RUL lesion which has increased in size on most recent 04/2023 imaging associated with anarea of local lymphangitic involvement. Also now apparent is a new RML nodule, most likely representing metastatic spread. On review of her prior imaging in [facility], there were some suspicious L sided nodules that aren't as apparent on the 04/2023 scan and the report doesn't comment on them. I had first met Ms Hancock when I joined Dr Muro at their 04/17/2023 [facility] visit. I reviewed our discussion from that visit, the recent imaging, and my discussion with Dr Muro. The radiation field for definitive concurrent chemoradiation would be too large. Thus, I reviewed the option of sequential treatment with carboplatin/pemetrexed x 4 cycles followed by consolidative radiation if the field reduces) versus upfront palliative radiation. Ms Hancock is understandably fearful of treatment related side effects that would make her too sick to work or to take care of her daughter. She doesn't have social supports. I reviewed a 20% dose reduction to chemotherapy and aggressive hydration to try to minimise or avoid significant side effects. I had also discussed another option of chemo/immunotherapy followed by consideration of radiation. I discussed the differing mechanism of actionbetween chemotherapy and immunotherapy, and the low but present risk of autoimmune toxicity. I think, however, if would be more reasonable to leave off the immunotherapy and conserve it for future use in the event of further progression. Also, the side effects of immunotherapy are more difficult to predict. Ms Hancock was in agreement of holding off on immunotherapy for the time being, if she decides to proceed with systemic therapy. I provided Ms Hancock with printed literature on carboplatin and pemetrexed. PLAN 1. Ms Hancock to review the chemotherapy literature and think about what was discussed in her clinicvisit. She will reach out to Alf Gonzales RN about her decision. 2. Ms Hancock is also going to look into naturopaths. Had a referral to Kajal [place], but her office doesn't accept Medicaid. Oncology Problem List: 1. Advanced (T4N2) non-small cell lung adenocarcinoma, likely metastatic. 09/2016: CT chest showed new RUL nodule. Was referred to [facility] but was not seen (unclear reason, can't [...] A. 03/10/2023: Bronchscopy made dx. PD-L1 <1-10%. HISTORY OF PRESENT ILLNESS Ms. Hancock presents for evaluation. Review of Systems Constitutional: Negative. HENT: Negative. Eyes: Negative. Respiratory: Negative. Cardiovascular: Negative. Gastrointestinal: Negative. Genitourinary: Negative. Musculoskeletal: Negative. Skin: Negative. Neurological: Negative. All other systems reviewed and are negative. Patient Active Problem List Diagnosis ??? Lung mass ??? Primary cancer of right upper lobe of lung (HCC-CMS) Past Medical History: Diagnosis Date ??? Anxiety 03/01/23 not on any meds, doesn't like they make her feel ??? Asthma 03/01/23 uses albuterol inhaler 2-3x/day, nebs daily ??? Back pain 03/01/23 herniated disc mid back ??? COPD (chronic obstructive pulmonary disease) (HCC-CMS) Noted 02/24/23 per pulmonary note ??? Deviated nasal septum 03/01/23 on left ??? Exercise involving walking 03/01/23 unable to climb stairs wo SOB ??? History of general anesthesia 03/01/23 no issues ??? Lung mass 03/01/23 bronch scheduled ??? Mass of upper lobe of right lung Per pulmonary note 12/26/22 ??? Migraine with aura, with intractable migraine, so stated, with status migrainosus 03/01/23 last one last year, takes alieve ??? Shortness of breath 03/01/23 with activity Past Surgical History: Procedure Laterality Date ??? COLONOSCOPY 2010 and endoscopy Social History Tobacco Use ??? Smoking status: Every Day Current packs/day: 1.00 Average packs/day: 1 pack/day for 26.0 years (26.0 ttl pk-yrs) Types: Cigarettes ??? Smokeless tobacco: Never Substance Use Topics ??? Alcohol use: Yes Comment: occ ??? Drug use: Never Ms Hancock presents unaccompanied. 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 Family hx: Her daughter had leuakaemia at a young age. Has other family members who had cancer and per Ms Hancock from chemotherapy. Current Medications: Per chart Allergies Allergen Reactions ??? Other - See Comments All Narcotics ECOG Performance Status: 1 Physical Exam Constitutional: Appearance: Normal appearance. Neurological: General: No focal deficit present. Mental Status: She is alert and oriented to person, place, and time. Psychiatric: Comments: Easily tearful IMAGING Done At [facility]. I personally reviewed the 04/2023 CT chest with Ms Hancock during today's clinic visit. Sarahi Hyatt MD documented in this encounter Plan of Treatment Not on file documented as of this encounter Visit Diagnoses Diagnosis Malignant neoplasm of upper lobe of right lung (HCC-CMS)- Primary Malignant neoplasm of upper lobe, bronchus or lung documented in this encounter Care Teams Or Director Relationship Specialty Start Date End Date None, Provider PCP - General 06/19/23 documented as of this encounter
--- OUTSIDE RECORDS SUMMARY | 2024-05-28 11:44 | XMS_ITS | Encounter Summary ---
Author Organization [facility] Address [address] [place] [address] Care Team Providers Care Assault Amphibious Vehicle Crewman Name Role Phone None, Provider Primary Care Provider Unavailabl e Reason for Visit * Reason Onset Date Comments Follow-up 07/14/2023 Encounter Details Date Type Department Care Team ([facility] st Contact Info) Description 07/14/2023 Telephone [facility] Cancer Center Hematology & Oncology - [facility] [address] [place], [place] [phone] Phillip Whelan, RN Follow-up Social History Tobacco [...] Refills Last Filled Start Date End Date cyclobenzaprine (FLEXERIL) 10 mg tablet Take 1 Tablet by mouth 3 times daily as needed for Muscle Spasms. 30 Tablet 07/14/2023 07/31/2023 documented in this encounter Miscellaneous Notes * Telephone Encounter - Phillip Whelan RN - 07/14/2023 5006 EST Spoke with patient to discuss upcoming treatment. She mentioned she went to the ED yesterady for difficulty breathing and wheezing at rest. Patient was given flexeril, doxycycline (5-10 day course patient unsure), and prednisone. Also given nebulizing treatment. Patient explained she has no PCP currently, but has an appointment in 2 weeks w/ new PCP. Dr. Beard, patients high school biology teacher, wont prescribe flexeril. Patient wondering if our office will. After conferring with Dr. Hyatt about patients symptoms and recent ED visit, we will prescribe patient a 10 day course of Flexeril 10mg to be taken TID PRN per Dr. Hyatt. Our office will check in with patient next week to see how they are feeling before 07/21/22 appointment. Requested Prescriptions Signed Prescriptions Disp Refills cyclobenzaprine (FLEXERIL) 10 mg tablet 30 Tablet 0 Sig: Take 1 Tablet by mouth 3 times daily as needed for Muscle Spasms. Authorizing Provider: ANNETTE HYATT Ordering User: PHILLIP WHELAN documented in this encounter Plan of Treatment Not on file documented as of this encounter Visit Diagnoses Not on filedocumented in this encounter Care Teams Assault Amphibious Vehicle Crewman Relationship Specialty Start Date End Date None, Provider PCP - General 06/19/23 documented as of this encounter
--- OUTSIDE RECORDS SUMMARY | 2024-05-28 11:44 | XMS_ITS | Encounter Summary ---
Author Organization [facility] Address [address] [place] [address] Care Team Providers Care Project Financial Analyst Name Role Phone None, Provider Primary Care Provider Unavailabl e Reason for Visit * Reason Onset Date Comments Appointment Related 07/21/2023 Encounter Details Date Type Department Care Team ([facility] st Contact Info) Description 07/21/2023 Telephone [facility] Cancer Center Hematology & Oncology - [address] [address] Sarahi Hyatt MD [address] [facility], [address] [place] [address] Appointment Related Social History Tobacco [...] * Telephone Encounter - Nick Esparza - 07/21/2023 1033 EST Cancelled pt's Infusion as pt had car troubles for today. Keeping zoom appt. Pt is both anxious andtalkative. documented in this encounter Plan of Treatment Not on file documented as of this encounter Visit Diagnoses Not on filedocumented in this encounter Care Teams Project Financial Analyst Relationship Specialty Start Date End Date None, Provider PCP - General 06/19/23 documented as of this encounter
--- OUTSIDE RECORDS SUMMARY | 2024-05-28 11:44 | XMS_ITS | Encounter Summary ---
Author Organization [facility] Address [address] [place] [address] Care Team Providers Care Glass Ribbon Machine Operator Assistant Name Role Phone None, Provider Primary Care Provider Unavailabl e Reason for Visit * Reason Comments Lung Cancer Follow-up Encounter Details Date Type Department Care Team ([facility] st Contact Info) Description 08/09/2023 16:30 EST Telemedicine [facility] Cancer Center Hematology & Oncology - [address] [address] Sarahi Hyatt MD [address] [facility], Level 2 [place] [id number] Primary cancer of right upper lobe of lung (HCC-CMS) (Primary Dx); Acute cough Social History Tobacco Use Types Packs/Day Years [...] Progress Notes * Sarahi Hyatt MD - 08/09/[address] [facility] HEMATOLOGY AND ONCOLOGY PROGRESS / FOLLOWUP NOTE 08/09/2023 REASON FOR VISIT: 57yo with advanced (T4N2) non-small cell lung adenocarcinoma, likely metastatic. Due to start chemotherapy. ASSESSMENT 57yo woman with advanced (T4N2) non-small cell lung adenocarcinoma, likely metastatic (see OncologyProblem List). She was diagnosed 6 months ago, but has been hesitant to start treatment. Recurrent URTIs, likely due to obstruction from the large RUL mass. Today, she states that she will keep the 08/22 scheduled treatment appointment. She has concerns about getting very sick from chemotherapy, as she has a history of medication-related adverse effects. I reviewed a plan of empiric 20% dose reduction and hydration and prn hydrations.We discussed potential side effects and a plan of repeating imaging to reassess for consolidative thoracic radiation post-4 cycles. PLAN 1. RTC for scheduled carboplatin/pemetrexed on 08/22. Oncology Problem List: 1. Advanced (T4N2) non-small cell lung adenocarcinoma, likely metastatic. 09/2016: CT chest showed new RUL nodule. Was referred to [facility] but was not seen (unclear reason, can't [...] A. 03/10/2023: Bronchscopy made dx. PD-L1 <1-10%. B. 04/2023: Repeat imaging showed the known RUL mass, now increased in size, new RML nodule, and L sided masses. Reviewed in Lung [facility]: likely metastatic disease, recommendation for systemic treatmentand re-evaluate for consolidative radiation. C. 06/2023: Rescheduled Medical Oncology visit due to transportation issues, etc. Chemotherapy recommended. Patient wanted to think about it. HISTORY OF PRESENT ILLNESS Ms. Hancock presents for evaluation. Review of Systems Constitutional: Negative. Negative for fever. HENT: Negative. Eyes: Negative. Respiratory: Positive for cough and sputum production. Feels she's developing another URTI, going to reach out to her Dental Chair Assembler. Cardiovascular: Negative. Gastrointestinal: Negative. Abdominal bloating/constipation resolved. At her request, labs and RUQ U/S done, all WNL. Genitourinary: Negative. Musculoskeletal: Negative. Skin: Negative. Neurological: Negative. All other systems reviewed and are negative. Social hx: Ms Hancock presents unaccompanied. Current Medications: Per chart Allergies Allergen Reactions Other - See Comments All Narcotics ECOG Performance Status: 1 Physical Exam Neurological: General: No focal deficit present. Mental Status: She is alert and oriented to person, place, and time. Sarahi Hyatt MD The concept of ???Telemedicine?? has been described to the patient. Patient has been informed of the anticipated benefits and possible risks. Patient understands the information provided regarding telemedicine, has had the opportunity to ask questions about this information, and all questions havebeen answered to patient???s satisfaction. Patient consents for the use of telemedicine in his/her medical care and authorizes the transmission of any relevant medical information to providers and their staff involved in patient???s medical or mental health care. TELEMEDICINE VIDEO VISIT Today's visit was provided through telemedicine video conferencing: I have reviewed the appropriateness of using video technology with the patient with regards to today's visit. The location of the patient : Home Patient location state: Visit Location State: [place] The location of the provider: Office (Oncology clinic) Provider location state: Visit Location State: [place] The following people and their roles were present for today's visit: Appointment Provider: Sarahi Hyatt MD Farrah Bano Khan, MD documented in this encounter Plan of Treatment Not on file documented as of this encounter Visit Diagnoses Diagnosis Primary cancer of right upper lobe of lung (HCC-CMS)- Primary Acute cough documented in this encounter Care Teams Glass Ribbon Machine Operator Assistant Relationship Specialty Start Date End Date None, Provider PCP - General 06/19/23 documented as of this encounter
--- OUTSIDE RECORDS SUMMARY | 2024-05-28 11:44 | XMS_ITS | Encounter Summary ---
Author Organization [facility] Address [address] [place] [address] Care Team Providers Care Cone Winder Name Role Phone None, Provider Primary Care Provider Unavailabl e Reason for Referral * Laboratory Services (Routine/Next Available) - New Request Specialty Diagnoses / Procedures Referred By Contac t Referred To Contact Diagnoses Primary cancer of right upper lobe of lung (HCC-CMS) Need for hepatitis B screening test Procedures HEPATITIS B PROFILE Sarahi Hyatt MD Phone: tel: fax: Referral ID Status Reason Start Date Expiration Date V isits Requested Visits Authorized [id number] New Request 07/14/2023 1 1 * Laboratory Services (Routine/Next Available) - New Request Specialty Diagnoses / Procedures Referred By Contac t Referred To Contact Diagnoses Primary cancer of right upper lobe of lung (HCC-CMS) Procedures COMPLETE BLOOD COUNT AND DIFFERENTIAL Sarahi Hyatt MD Phone: tel: fax: Referral ID Status Reason Start Date Expiration Date V isits Requested Visits Authorized [id number] New Request 07/14/2023 1 1 * Laboratory Services (Routine/Next Available) - New Request Specialty Diagnoses / Procedures Referred By Contac t Referred To Contact Diagnoses Primary cancer of right upper lobe of lung (HCC-CMS) Procedures COMPREHENSIVE METABOLIC PANEL (ONCOLOGY USE ONLY-INC MG) Sarahi Hyatt MD Phone: tel: fax: Referral ID Status Reason Start Date Expiration Date V isits Requested Visits Authorized [id number] New Request 07/14/2023 1 1 Encounter Details Date Type Department Care Team (Late st Contact Info) Description 07/14/2023 Orders Only [facility] Cancer Center Hematology & Oncology - [address] [address] Kendell Vega RN Primary cancer of right upper lobe of lung (HCC-CMS) (Primary Dx); Need for hepatitis B screening test Social History Tobacco Use Types Packs/Day Years [...] documented in this encounter Progress Notes * Kendell Vega RN - 07/14/2023 1628 EST Labs ordered for upcoming treatment and faxed to [facility] per patients preference. documented in this encounter Plan of Treatment Scheduled Orders Name Type Priority Associated Diagnoses Orde r Schedule COMPREHENSIVE METABOLIC PANEL (ONCOLOGY USE ONLY-INC MG) Lab Routine Primary cancer of right upper lobe of lung (HCC-CMS) 25 Occurrences starting 07/14/2023 until 07/14/2024 COMPLETE BLOOD COUNT AND DIFFERENTIAL Lab Routine Primary cancer of right upper lobe of lung (HCC-CMS) 25 Occurrences starting 07/14/2023 until 07/14/2024 HEPATITIS B PROFILE Lab Routine Primary cancer of right upper lobe of lung (HCC-CMS) Need for hepatitis B screening test Expected: 07/14/2023 (Approximate), Expires: 07/14/2024 documented as of this encounter Visit Diagnoses Diagnosis Primary cancer of right upper lobe of lung (HCC-CMS)- Primary Need for hepatitis B screening test documented in this encounter Care Teams Cone Winder Relationship Specialty Start Date End Date None, Provider PCP - General 06/19/23 documented as of this encounter
--- OUTSIDE RECORDS SUMMARY | 2024-05-28 11:44 | XMS_ITS | Encounter Summary ---
Author Organization [facility] Address [address] [place] [address] Care Team Providers Care Entry Level Lab Technician Name Role Phone None, Provider Primary Care Provider Unavailabl e Reason for Visit * Reason Comments Medications Refill Encounter Details Date Type Department Care Team (Late st Contact Info) Description 07/13/2023 Refill [facility] Pulmonology & Critical Care - [address] [address] Tex Colvin MD [address] [place] [address], [address] [place] [phone] Medications Refill Social History Tobacco Use Types Packs/Day Years [...] on filedocumented in this encounter Care Teams Entry Level Lab Technician Relationship Specialty Start Date End Date None, Provider PCP - General 06/19/23 documented as of this encounter
--- OUTSIDE RECORDS SUMMARY | 2024-05-28 11:44 | XMS_ITS | Encounter Summary ---
Author Organization [facility] Address [address] [place] [address] Care Team Providers Care Bridge Painter Name Role Phone Unknown, Provider Primary Care Provider Unava ilable Encounter Details Date Type Department Care Team (Late st Contact Info) Description 06/13/2023 Documentation Visit [facility] Cancer Center Hematology & Oncology - [facility] [address] [place] [address] Alf Gonzales RN Social History Tobacco Use [...] Notes * Alf Gonzales, MELQUIADES - 06/13/2023 1156 EST Pt returns call and agreeable to 06/21 appt with Edmar at 2:[address] pm. Message left [address] Muro in the hopes of seeing pt at 3:30. Will have SW fu with pt. documented in this encounter Plan of Treatment Not on file documented as of this encounter Visit Diagnoses Not on filedocumented in this encounter Care Teams Bridge Painter Relationship Specialty Start Date End Date Unknown, Provider, PCP - General 03/10/23 06/18/23 documented as of this encounter
--- OUTSIDE RECORDS SUMMARY | 2024-05-28 11:45 | XMS_ITS | Encounter Summary ---
Author Organization [facility] Address [address] [place] [address] Care Team Providers Care Fraternity House Cook Name Role Phone Unknown, Provider Primary Care Provider Unava ilable Reason for Referral * Radiology Services (Routine/Next Available) - Receiving Office to Obtain Authorization Specialty Diagnoses / Procedures Referred By Contac t Referred To Contact Radiology Diagnoses Adrenal nodule (HCC-CMS) Procedures MR SUBSPECIALTY RADIOLOGY CONSULT BODY Tex Colvin MD Phone: tel: fax: [employer] Referral ID Status Reason Start Date Expiration Date Visits Requested Visits Authorized [id number] Receiving Office to Obtain Authorization 04/14/2023 1 1 Reason for Visit * Radiology Services (Routine/Next Available) - Receiving Office to Obtain Authorization Specialty Diagnoses / Procedures Referred By Contac t Referred To Contact Radiology Diagnoses Adrenal nodule (HCC-CMS) Procedures MR SUBSPECIALTY RADIOLOGY CONSULT BODY Tex Colvin MD Phone: tel: fax: [employer] Referral ID Status Reason Start Date Expiration Date Visits Requested Visits Authorized [id number] Receiving Office to Obtain Authorization 04/14/2023 1 1 Encounter Details Date Type Department Care Team (Latest Contact Info) Description 04/14/2023 12:20 EDT - 04/14/2023 23:59 EDT Hospital Encounter [facility] Radiology - [facility] [place] [address] [place], [place] [id number] Adrenal nodule (HCC-[facility]) Discharge Disposition: Home or Self Care Social [...] tablet Take 1 Tablet by mouth daily. naproxen sodium (ALEVE ORAL) Take by mouth. ZINC ORAL Take 50 mcg by mouth. amoxicillin-clav ulanate (AUGMENTIN) 875-125 mg per tablet Take 1 Tablet by mouth daily. 14 Tablet 03/10/2023 04/26/2023 doxycycline (ADOXA) 100 mg tablet Take 1 Tablet by mouth 2 times daily. 20 Tablet 02/13/2023 07/31/2023 fluconazole (DIFLUCAN) 100 mg tablet Take 1 Tablet by mouth daily. 5 Tablet 03/10/2023 07/31/2023 fluconazole (DIFLUCAN) 100 mg tablet Take 1 Tablet by mouth daily. 14 Tablet 1 02/27/2023 07/31/2023 predniSONE (DELTASONE) 10 mg tablet Take 4 Tablets by mouth daily for 3 days, THEN 3 Tablets daily for 3 days, THEN 2 Tablets daily for 3 days, THEN 1 Tablet daily for 3 days. 30 Tablet 02/13/2023 06/16/2023 tiotropium (SPIRIVA) 18 mcg inhalation capsule Inhale 1 Capsule as directed daily. 30 Capsule 11 12/26/2022 07/31/2023 documented as of this encounter Discharge Disposition Disposition Code Departure Means Destination Home or Self Care documented in this encounter Plan of Treatment Not on file documented as of this encounter Procedures Procedure Name Priority Date/Time Associated Diagnosis Comments MR SUBSPECIALTY RADIOLOGY CONSULT BODY Routine 04/14/2023 12:20 EDT Adrenal nodule (HCC-CMS) documented in this encounter Results * MR SUBSPECIALTY RADIOLOGY CONSULT BODY (04/14/2023 12:20 EDT) Anatomical Region Laterality Modality Body Magnetic Resonan ce 04/14/2023 14:1 0 EDT Impressions 04/14/2023 14:10 EDT Mild nodularity of the inner limb of the left adrenal gland, stable since 2017. Consider follow-up with PET/CT given described uptake in the left adrenal gland. [id number] Narrative 04/14/2023 14:10 EDT MR SUBSPECIALTY RADIOLOGY CONSULT BODY ??04/14/2023 1:00 PM Signs and Symptoms/Comments: ;E27.8:Adrenal nodule (HCC-CMS) Technique: This is a secondary interpretation of MRI abdomen with and without IV contrast images obtained at [facility] on March 22, 2023, performed at the request of the ordering provider, TEX COLVIN. Comparison: PET/CT dated 02/09/2023 CT of the chest 10/12/2016 Findings: Lower chest: No significant finding. Liver: Unremarkable Gallbladder: Unremarkable Bile ducts: No biliary dilatation Spleen: Normal Pancreas: Normal Adrenal glands: The medial limb of the left adrenal gland is mildly prominent although no discrete signal abnormality or abnormal enhancement noted. The appearance is stable from 2017. Kidneys, and proximal ureter: No hydronephrosis or renal mass. Bowel: No significant finding. Peritoneal cavity: No significant finding. Lymph nodes: No lymphadenopathy Vascular: No significant finding. Abdominal wall: No bowel-containing hernia Procedure Note Nargis Dupree MD - 04/14/2023 MR SUBSPECIALTY RADIOLOGY CONSULT BODY 04/14/2023 1:00 PM Signs and Symptoms/Comments: ;E27.8:Adrenal nodule (HCC-CMS) Technique: This is a secondary interpretation of MRI abdomen with andwithout IV contrast images obtained at [facility] on March 22, 2023, performed at the request of the orderingprovider, TEX COLVIN. Comparison: PET/CT dated 02/09/2023 CT of the chest 10/12/2016 Findings: Lower chest: No significant finding. Liver: Unremarkable Gallbladder: Unremarkable Bile ducts: No biliary dilatation Spleen: Normal Pancreas: Normal Adrenal glands: The medial limb of the left adrenal gland is mildlyprominent although no discrete signal abnormality or abnormal enhancementnoted. The appearance is stable from 2017. Kidneys, and proximal ureter: No hydronephrosis or renal mass. Bowel: No significant finding. Peritoneal cavity: No significant finding. Lymph nodes: No lymphadenopathy Vascular: No significant finding. Abdominal wall: No bowel-containing hernia IMPRESSION Mild nodularity of the inner limb of the left adrenal gland, stable [id number]. Consider follow-up with PET/CT given described uptake in the leftadrenal gland. [id number] us Tex Colvin MD IMG MRI ORDERABLES Fin al Result documented in this encounter Visit Diagnoses Diagnosis Adrenal nodule (HCC-CMS) Unspecified disorder of adrenal glands documented in this encounter Care Teams Fraternity House Cook Relationship Specialty Start Date End Date Unknown, Provider, PCP - General 03/10/23 06/18/23 documented as of this encounter
--- OUTSIDE RECORDS SUMMARY | 2024-05-28 11:45 | XMS_ITS | Encounter Summary ---
Author Organization [facility] Address [address] [place] [address] Care Team Providers Care Electronic Tech Name Role Phone Unknown, Provider MD Primary Care Provider Unava ilable None, Provider Primary Care Provider Unavailabl e Encounter Details Date Type Department Care Team (Late st Contact Info) Description 04/26/2023 Orders Only [facility] Hematology & Oncology - [facility] [address] [place] [address] Alf Gonzales, RN Social History Tobacco Use [...] on filedocumented in this encounter Care Teams Electronic Tech Relationship Specialty Start Date End Date Unknown, Provider, PCP - General 03/10/23 06/18/23 None, Provider PCP - General 06/19/23 documented as of this encounter
--- OUTSIDE RECORDS SUMMARY | 2024-05-28 11:45 | XMS_ITS | Encounter Summary ---
Author Organization [facility] Address [address] [place] [address] Care Team Providers Care Pin Cleaner Name Role Phone Unknown, Provider Primary Care Provider Unava ilable Reason for Referral * (Routine/Next Available) - Receiving Office to Obtain Authorization Specialty Diagnoses / Procedures Referred By Contac t Referred To Contact Procedures CT OUTSIDE IMAGES CHEST Imaging, External Referral ID Status Reason Start Date Expiration Date Visits Requested Visits Authorized [id number] Receiving Office to Obtain Authorization 3 1 1 Reason for Visit * (Routine/Next Available) - Receiving Office to Obtain Authorization Specialty Diagnoses / Procedures Referred By Contac t Referred To Contact Procedures CT OUTSIDE IMAGES CHEST Imaging, External Referral ID Status Reason Start Date Expiration Date Visits Requested Visits Authorized [id number] Receiving Office to Obtain Authorization 3 1 1 Encounter Details Date Type Department Care Team (Latest Contact Info) Description 05/15/2023 - 05/15/2023 16:17 EDT Hospital Encounter [facility] Secondary [place] Discharge Disposition: Home or [...] tablet Take 1 Tablet by mouth daily. ephedrine sulfate (BRONKAID MAX ORAL) Take by mouth. naproxen sodium (ALEVE ORAL) Take by mouth. ZINC ORAL Take 50 mcg by mouth. amoxicillin-clav ulanate (AUGMENTIN) 875-125 mg per tablet Take 1 Tablet by mouth daily. 14 Tablet 1 04/26/2023 06/16/2023 doxycycline (ADOXA) 100 mg tablet Take 1 [...] Diagnosis Comments CT OUTSIDE IMAGES CHEST Routine 05/15/2023 13:59 EDT documented in this encounter Results * CT OUTSIDE IMAGES CHEST (05/15/2023 13:59 EDT) Narrative 06/09/2023 13:59 EST This is a non-reportable exam. us External Imaging IMG OTHER IMAGING ORDERABLES Fi nal Result documented in this encounter Visit Diagnoses Not on filedocumented in this encounter Care Teams Pin Cleaner Relationship Specialty Start Date End Date Unknown, Provider, PCP - General 03/10/23 06/18/23 documented as of this encounter
--- OUTSIDE RECORDS SUMMARY | 2024-05-28 11:45 | XMS_ITS | Encounter Summary ---
Author Organization [facility] Address [address] [place] [address] Care Team Providers Care Lead Custodian Name Role Phone None, Provider Primary Care Provider Unavailabl e Reason for Visit * Reason Onset Date Comments Appointment Related 03/09/2023 Encounter Details Date Type Department Care Team ([facility] st Contact Info) Description 03/09/[address] [facility] Pulmonology & Critical Care - [address] [phone] Tex Colvin MD [address] [facility], [address] [place] [address] Appointment Related Social History Tobacco [...] encounter Miscellaneous Notes * Telephone Encounter - Jaya Garcia Jr - 03/09/2023 6497 EDT Called and spoke to the patient. She had no questions about the protocols. She did have questions but said she would only ask them if Dr. Colvin gave her a call. I've made that request to Dr. Colvin. IMPORTANT PROCEDURE PROTOCOLS - It is important that you have NOTHING TO EAT AFTER MIDNIGHT the night before the procedure. On the day of your procedure, you should have only water or clear liquids until 4 hours before the scheduled time of your procedure. Clear liquids include water, clear fruit juice, carbonated beverages, and black or sweetened coffee and tea (No Dairy). You should take your usual medicines by mouth with a small amount of water. - You will NEED TO BRING A PIT TANNER. Please make sure you have someone accompany you who will be ableto drive you home after the procedure. You will be unable to safely drive for 24 hours from the time of the procedure. - If you are taking Aspirin there is no need to stop taking it prior to the procedure. - If you are taking any BLOOD THINNERS (Plavix, Coumadin, Warfarin, etc.) please speak with your manufacturing helper about this. Your appointment is on 03.10.2023 with a scheduled start time of 11:00AM and an arrival time of 9:00AM. Please check in at Registration on the 3rd floor of the [facility] building. You will then proceed to Surgery and Procedures located on the 3rd floor in the [facility] of the [facility] building. Please call Pulmonary at [phone] or the PFT Lab at [phone] if you have any concerns, questions or need clarification about any of the above instructions. Thank you. documented in this encounter Plan of Treatment Not on file documented as of this encounter Visit Diagnoses Not on filedocumented in this encounter Care Teams Lead Custodian Relationship Specialty Start Date End Date None, Provider PCP - General 02/08/23 03/09/23 documented as of this encounter
--- OUTSIDE RECORDS SUMMARY | 2024-05-28 11:45 | XMS_ITS | Encounter Summary ---
Author Organization [facility] Address [address] [place] [address] Care Team Providers Care Pocket Machine Operator Name Role Phone None, Provider Primary Care Provider Unavailabl e Reason for Visit * Reason Onset Date Comments New/Evolving Symptoms 03/06/2023 Encounter Details Date Type Department Care Team ([facility] st Contact Info) Description 03/06/2023 Telephone [facility] Pulmonology & Critical Care - [address] [phone] Tex Colvin MD [address] [facility], [address] [place] [address] New/Evolving Symptoms (/) Social History Tobacco Use Types Packs/Day Years [...] encounter Miscellaneous Notes * Telephone Encounter - Nory Lauren RN - 03/07/2023 1009 EDT Faxed CXR order to [facility] as requested. * Telephone Encounter - Tex Colvin MD - 03/06/2023 1637 EDT Still noting dyspnea and cough Feels that Bronkaid is helping (ephedrine) Feels that cough is a bit better with the therapy Wondering if something else is wrong. Rec: 1) CXR at [facility] documented in this encounter Plan of Treatment Not on file documented as of this encounter Visit Diagnoses Diagnosis Dyspnea, unspecified type- Primary documented in this encounter Care Teams Pocket Machine Operator Relationship Specialty Start Date End Date None, Provider PCP - General 02/08/23 03/09/23 documented as of this encounter
--- OUTSIDE RECORDS SUMMARY | 2024-05-28 11:45 | XMS_ITS | Encounter Summary ---
Author Organization [facility] Address [address] [place] [address] Care Team Providers Care Manager Sales Name Role Phone Unknown, Provider MD Primary Care Provider Unava ilable Reason for Referral * Radiology Services (Routine/Next Available) - Receiving Office to Obtain Authorization Specialty Diagnoses / Procedures Referred By [facility] Referred To Contact Diagnoses Lung mass Procedures CT SUBSPECIALTY RADIOLOGY CONSULT CHEST Tex Colvin MD Phone: tel: fax: [facility] Referral ID Status Reason Start Date Expiration Date Visits Requested Visits Authorized [id number] Receiving Office to Obtain Authorization 03/22/2023 1 1 Encounter Details Date Type Department Care Team (Late st Contact Info) Description 03/22/2023 Orders Only [facility] Hematology & Oncology - [facility] [address], [place] [id number] Alf Gonzales RN Lung mass (Primary Dx) Social History Tobacco Use Types [...] on file documented as of this encounter Results * CT SUBSPECIALTY RADIOLOGY CONSULT CHEST (03/22/2023 21:54 EDT) Anatomical Region Laterality Modality Computed Tomogra phy 03/27/2023 10:5 7 EDT Impressions 03/27/2023 10:57 EDT Markedly increased size of known right upper lobe mass, now measuring 8.2 x 5.2 x 6.7 cm, previously 4.3 x 4.2 x 3.6 cm. The mass now abuts the mediastinum, including the lateral wall of the superior vena cava. No definite compression of the cava (limited assessment without IV contrast material). Mild interstitial edema related to vascular impression or lymphatic spread of tumor surrounding the right upper lobe mass. Scattered peritumoral nodular opacities which may represent mucous plugging, though satellite lesions are also possible. Slightly increased size of right paratracheal lymph nodes, possibly metastatic. No evidence of distant metastatic disease in the chest. [id number] Narrative 03/27/2023 10:57 EDT 03/22/2023 10:00 PM Clinical History/Comments: confirm outside findings;R91.8:Lung mass. Please note that the outside report for this examination was not available at the time of review. Technique: CT of the chest was performed at an outside institution on 11/25/2022. ??IV contrast material was not administered. Exam description: ??Chest CT without contrast Comparison: 12/22/2021 CT scan Findings: Lower neck: Normal. Mediastinum and tyshawn (non-vascular): Slightly increased size of right paratracheal lymph nodes, largest measuring 8 mm in short axis (10 R), previously 4 mm. Unremarkable thoracic esophagus. Cardiovascular: Mild atherosclerotic calcium in the thoracic aorta and a few of its first order branches, including the coronary arteries. Lungs and airways: Markedly increased size of known right upper lobe mass, now measuring 8.2 x 5.2 x 6.7 cm, previously 4.3 x 4.2 x 3.6 cm, now abutting the mediastinum, including the lateral wall of the superior vena cava but without definite compression of the cava (limited assessment without intravenous contrast material). Mild interlobular septal thickening surrounding the mass, either representing interstitial edema related to vascular compression or lymphatic spread of tumor. Scattered peritumoral nodular opacities, probably representing mucous plugging, though these could represent satellite lesions. No pulmonary nodules remote from the primary tumor. Very faint groundglass opacities in the left upper lobe, probably representing smoking-related respiratory bronchiolitis. Mild emphysema. Near complete obstruction of the right upper lobe bronchus. Mild thickening of the central airways on the right. Pleura: Normal. Upper abdomen (limited to upper abdomen, not optimized for abdominal imaging): Unremarkable. Chest wall soft tissues: Unremarkable. Bones: No suspicious osseous lesions. Procedure Note Alaina Napoles MD - 03/27/2023 03/22/2023 10:00 PM Clinical History/Comments: confirm outside findings;R91.8:Lung mass. Please note that the outsidereport for this examination was not available at the time of review. Technique: CT of the chest was performed at an outside institution on 11/25/2022. IVcontrast material was not administered. Exam description: Chest CT without contrast Comparison: 12/22/2021 CT scan Findings: Lower neck: Normal. Mediastinum and tyshawn (non-vascular): Slightly increased size of rightparatracheal lymph nodes, largest measuring 8 mm in short axis (10 R),previously 4 mm. Unremarkable thoracic esophagus. Cardiovascular: Mild atherosclerotic calcium in the thoracic aorta and afew of its first order branches, including the coronary arteries. Lungs and airways: Markedly increased size of known right upper lobe mass,now measuring 8.2 x 5.2 x 6.7 cm, previously 4.3 x 4.2 x 3.6 cm, nowabutting the mediastinum, including the lateral wall of the superior venacava but without definite compression of the cava (limited assessmentwithout intravenous contrast material). Mild interlobular septalthickening surrounding the mass, either representing interstitial edemarelated to vascular compression or lymphatic spread of tumor. Scatteredperitumoral nodular opacities, probably representing mucous plugging,though these could represent satellite lesions. No pulmonary nodulesremote from the primary tumor. Very faint groundglass opacities in theleft upper lobe, probably representing smoking-related respiratorybronchiolitis. Mild emphysema. Near complete obstruction of the rightupper lobe bronchus. Mild thickening of the central airways on theright. Pleura: Normal. Upper abdomen (limited to upper abdomen, not optimized for abdominalimaging): Unremarkable. Chest wall soft tissues: Unremarkable. Bones: No suspicious osseous lesions. IMPRESSION Markedly increased size of known right upper lobe mass, now measuring 8.2x 5.2 x 6.7 cm, previously 4.3 x 4.2 x 3.6 cm. The mass now abuts themediastinum, including the lateral wall of the superior vena cava. Nodefinite compression of the cava (limited assessment without IV contrastmaterial). Mild interstitial edema related to vascular impression or lymphatic spreadof tumor surrounding the right upper lobe mass. Scattered peritumoral nodular opacities which may represent mucousplugging, though satellite lesions are also possible. Slightly increased size of right paratracheal lymph nodes, possiblymetastatic. No evidence of distant metastatic disease in the chest. [id number] Tex Colvin MD IM CT ORDERABLES Isabella l Result documented in this encounter Visit Diagnoses Diagnosis Lung mass- Primary Swelling, mass, or lump in chest Lung mass Swelling, mass, or lump in chest documented in this encounter Care Teams Manager Sales Relationship Specialty Start Date End Date Unknown, Provider, PCP - General 03/10/23 06/18/23 documented as of this encounter
--- OUTSIDE RECORDS SUMMARY | 2024-05-28 11:45 | XMS_ITS | Encounter Summary ---
Author Organization [facility] Address [address] [place] [address] Care Team Providers Care Signal Operator Name Role Phone Unknown, Provider Primary Care Provider Unava ilable Reason for Referral * (Routine/Next Available) - Receiving Office to Obtain Authorization Specialty Diagnoses / Procedures Referred By Contac t Referred To Contact Procedures MR OUTSIDE IMAGES ABDOMEN Imaging, External Referral ID Status Reason Start Date Expiration Date Visits Requested Visits Authorized [id number] Receiving Office to Obtain Authorization 04/13/2023 1 1 Reason for Visit * (Routine/Next Available) - Receiving Office to Obtain Authorization Specialty Diagnoses / Procedures Referred By Contac t Referred To Contact Procedures MR OUTSIDE IMAGES ABDOMEN Imaging, External Referral ID Status Reason Start Date Expiration Date Visits Requested Visits Authorized [id number] Receiving Office to Obtain Authorization 04/13/2023 1 1 Encounter Details Date Type Department Care Team (Latest Contact Info) Description 04/12/2023 0:05 EDT - 04/12/2023 23:59 EDT Hospital Encounter [facility] Secondary Read[place] Discharge Disposition: Home [...] Name Priority Date/Time Associated Diagnosis Comments MR OUTSIDE IMAGES ABDOMEN Routine 04/12/2023 16:24 EDT documented in this encounter Results * MR OUTSIDE IMAGES ABDOMEN (04/12/2023 16:24 EDT) Narrative 04/13/2023 16:24 EDT This is a non-reportable exam. us External Imaging IMG OTHER IMAGING ORDERABLES Fi nal Result documented in this encounter Visit Diagnoses Not on filedocumented in this encounter Care Teams Signal Operator Relationship Specialty Start Date End Date Unknown, Provider, PCP - General 03/10/23 06/18/23 documented as of this encounter
--- OUTSIDE RECORDS SUMMARY | 2024-05-28 11:45 | XMS_ITS | Encounter Summary ---
Author Organization [facility] Address [address] [place] [address] Care Team Providers Care Commercial Credit Head Name Role Phone Unknown, Provider MD Primary Care Provider Unava ilable None, Provider Primary Care Provider Unavailabl e Reason for Visit * Reason Onset Date Comments Results 05/19/2023 Encounter Details Date Type Department Care Team (Late st Contact Info) Description 05/19/2023 Telephone [facility] Pulmonology & Critical Care - [address] [id number] Tex Colvin MD [address] [place] [address], [address] [place] [address] Results Social History Tobacco Use Types Packs/Day Years [...] encounter Miscellaneous Notes * Telephone Encounter - Daphney Perkins - 05/19/2023 1487 EDT Patient called in wanting to speak with Alf, in regards to her results from her CT scan that was done about 4 days ago. Please advise documented in this encounter Plan of Treatment Not on file documented as of this encounter Visit Diagnoses Not on filedocumented in this encounter Care Teams Commercial Credit Head Relationship Specialty Start Date End Date Unknown, Provider, PCP - General 03/10/23 06/18/23 None, Provider PCP - General 06/19/23 documented as of this encounter
--- OUTSIDE RECORDS SUMMARY | 2024-05-28 11:45 | XMS_ITS | Encounter Summary ---
Author Organization [facility] Address [address] [place] [address] Care Team Providers Care Graphite Mill Operator Name Role Phone Unknown, Provider Primary Care Provider Unava ilable Reason for Referral * Radiology Services (Routine/Next Available) - Receiving Office to Obtain Authorization Specialty Diagnoses / Procedures Referred By Contac t Referred To Contact Diagnoses Lung mass Procedures CT SUBSPECIALTY RADIOLOGY CONSULT CHEST Tex Colvin MD Phone: tel: fax: [facility] Referral ID Status Reason Start Date Expiration Date Visits Requested Visits Authorized [id number] Receiving Office to Obtain Authorization 03/22/2023 1 1 Reason for Visit * Radiology Services (Routine/Next Available) - Receiving Office to Obtain Authorization Specialty Diagnoses / Procedures Referred By Contac t Referred To Contact Diagnoses Lung mass Procedures CT SUBSPECIALTY RADIOLOGY CONSULT CHEST Tex Colvin MD Phone: tel: fax: [facility] Referral ID Status Reason Start Date Expiration Date Visits Requested Visits Authorized [id number] Receiving Office to Obtain Authorization 03/22/2023 1 1 Encounter Details Date Type Department Care Team (Latest Contact Info) Description 03/22/2023 21:54 EDT - 03/22/2023 23:59 EDT Hospital Encounter [facility] Radiology - Main [place] [address] [place], [place] [phone] Lung mass Discharge Disposition: Home or Self Care Social [...] Name Priority Date/Time Associated Diagnosis Comments CT SUBSPECIALTY RADIOLOGY CONSULT CHEST Routine 03/22/2023 21:54 EDT Lung mass documented in this encounter Results * CT SUBSPECIALTY RADIOLOGY [...] in the chest. [id number] Tex Colvin MD IMG CT ORDERABLES Isabella l Result documented in this encounter Visit Diagnoses Diagnosis Lung mass Swelling, mass, or lump in chest documented in this encounter Care Teams Graphite Mill Operator Relationship Specialty Start Date End Date Unknown, Provider, PCP - General 03/10/23 06/18/23 documented as of this encounter
--- OUTSIDE RECORDS SUMMARY | 2024-05-28 11:45 | XMS_ITS | Encounter Summary ---
Author Organization [facility] Address [address] [place] [address] Care Team Providers Care Overedge Sewer Name Role Phone Unknown, Provider Primary Care Provider Unava ilable None, Provider Primary Care Provider Unavailabl e Encounter Details Date Type Department Care Team (Late st Contact Info) Description 04/18/2023 Orders Only [facility] Hematology & Oncology - [facility] [address] [place] [address] Alf Gonzales, RN Social History Tobacco Use [...] on filedocumented in this encounter Care Teams Overedge Sewer Relationship Specialty Start Date End Date Unknown, Provider, PCP - General 03/10/23 06/18/23 None, Provider PCP - General 06/19/23 documented as of this encounter
--- OUTSIDE RECORDS SUMMARY | 2024-05-28 11:45 | XMS_ITS | Encounter Summary ---
Author Organization [facility] Address [address] [place] [address] Care Team Providers Care Scada Technician Name Role Phone Unknown, Provider Primary Care Provider Unava ilable Encounter Details Date Type Department Care Team (Late st Contact Info) Description 04/26/2023 Documentation Visit [facility] Hematology & Oncology - [facility] [address] [place] [address] Alf Gonzales RN Social History Tobacco Use [...] Progress Notes * Alf Gonzales, MELQUIADES - 04/26/2023 6778 EDT Pt calls reporting several days of flu like symptoms and now with increased prod cough green sputumand fever. Comm with Dr Colvin and pt started on Augmentin x 7 days with instruction. Pt to test for COVID as well and report to ER / notify us if worsening. Pt s PCP at moment. Verbalizes understanding. documented in this encounter Plan of Treatment Not on file documented as of this encounter Visit Diagnoses Not on filedocumented in this encounter Care Teams Scada Technician Relationship Specialty Start Date End Date Unknown, Provider, PCP - General 03/10/23 06/18/23 documented as of this encounter
--- OUTSIDE RECORDS SUMMARY | 2024-05-28 11:45 | XMS_ITS | Encounter Summary ---
Author Organization [facility] Address [address] [place] [address] Care Team Providers Care Digital Solution Architect Name Role Phone Unknown, Provider Primary Care Provider Unava ilable Encounter Details Date Type Department Care Team (Late st Contact Info) Description 04/26/2023 Orders Only [facility] Pulmonology & Critical Care - [address] [id number] Tex Colvin MD [address] [place] [address], [address] [place] [address] Social History Tobacco Use Types [...] mouth daily. 14 Tablet 1 04/26/2023 06/16/2023 documented in this encounter Plan of Treatment Not on file documented as of this encounter Visit Diagnoses Not on filedocumented in this encounter Discontinued Medications Medication Sig Discontinue Reason Start Date End Da te amoxicillin-clavulanate (AUGMENTIN) 875-125 mg per tablet Take 1 Tablet by mouth daily. Reorder 03/10/2023 04/26/2023 documented as of this encounter Care Teams Digital Solution Architect Relationship Specialty Start Date End Date Unknown, Provider, PCP - General 03/10/23 06/18/23 documented as of this encounter
--- OUTSIDE RECORDS SUMMARY | 2024-05-28 11:45 | XMS_ITS | Encounter Summary ---
Author Organization [facility] Address [address] [place] [address] Care Team Providers Care Grades 7 And 8 Teacher Name Role Phone Unknown, Provider MD Primary Care Provider Unava ilable Reason for Visit * Reason Onset Date Comments Appointment Related 04/03/2023 Encounter Details Date Type Department Care Team ([facility] st Contact Info) Description 04/03/2023 Telephone [facility] Multidisciplinary Lung Clinic - [address] [phone] Txe Colvin MD [address] [place] [address], [address] [place] [address] Appointment Related Social History Tobacco [...] * Telephone Encounter - Elaina Roman - 04/03/2023 0954 EDT Called on Monday and spoke with Neva. Neva at [facility] is pushing imaging and faxing over the reports. Called this morning (Tuesday 04/03) to [facility] and spoke with Deb who stated that patient missed the original appointment for her MRI's and was rescheduled to 04/12. I told Kalaniethlesia Hooks never told me that she missed the scan and was rescheduled. l called Alf to let him know and we are cancelling her visit today until she has the scan. Alf will be calling her. documented in this encounter Plan of Treatment Not on file documented as of this encounter Visit Diagnoses Not on filedocumented in this encounter Care Teams Grades 7 And 8 Teacher Relationship Specialty Start Date End Date Unknown, Provider, PCP - General 03/10/23 06/18/23 documented as of this encounter
--- OUTSIDE RECORDS SUMMARY | 2024-05-28 11:45 | XMS_ITS | Encounter Summary ---
Author Organization [facility] Address [address] [place] [address] Care Team Providers Care Building Attendant Name Role Phone Unknown, Provider Primary Care Provider Unava ilable Encounter Details Date Type Department Care Team (Late st Contact Info) Description 03/10/2023 11:12 EDT - 03/10/2023 12:52 EDT Surgery [facility] OR [address] [place] [address] [id number] Tex Colvin MD [address] [place] [address], [address] [place] [phone] Linear endobronchial ultrasound bronchoscopy, transbronchial needle biopsy, possible lavage, possible endobronchial biopsy; biopsy of mass only, no lymph node biopsies [22534 (CPT??)] Surgery Details Date/Time Status Location OR Service Patient Class Case Cl ass Case Type Trauma Case? 03/10/2023 1112 Posted [facility] OR [address] Outpatient Surgery H - Elective Panel 1 Procedure LRB Anes Op Region Wound Class Comments Linear endobronchial ultrasound bronchoscopy, transbronchial needle biopsy, possible lavage, possible endobronchial biopsy; biopsy of mass only, no lymph node biopsies N/A General Chest Class II/ Clean Contaminated EBUS w/cytopathology Surgeon Surgeon Role Service Panel Tex Colvin MD Primary Pulmonary 1 documented in this encounter Social History Tobacco Use Types Packs/Day Years [...] Sign Reading Time Taken Comments Blood Pressure 115/96 03/10/2023 1236 EDT Pulse - - Temperature 36.2 ??C (97.2 ??F) 03/10/2023 1236 EDT Respiratory Rate 16 03/10/2023 1051 EDT Oxygen Saturation 98% 03/10/2023 1236 EDT Inhaled Oxygen Concentration - - Weight 53.1 kg (117 lb 1 oz) 03/10/2023 1103 EDT Height 167.6 cm (5' 6) 03/10/2023 1103 EDT Body Mass Index 18.89 03/10/2023 1103 EDT documented in this encounter Functional Status * Because of [...] 12/26/2022 14:52 EDT documented in this encounter Discharge Instructions * Discharge Instructions* Tex Colvin MD - 03/10/2023 13:07 EDT Bronchoscopy Post-Operative Patient Instructions *Start Augmentin 1 pill twice daily for 7 days (antibiotic) *keep taking fluconazole until you are done with augmentin; additional pills sent to pharmacy Diet: Before you leave the hospital, the nurse will make certain that the numbing medication applied to your throat has worn off and that your swallowing is back to normal. Once you go home, you can eat your standard diet with no restrictions unless advised by your physician. Discomfort: You may have a slight sore throat and some hoarseness and soreness in your nose that may last a dayor two. If washing of your lung(s) was performed, you may have a sensation of fullness in your chest. Cough: It is not unusual for you to have a cough after the procedure. If biopsies or other samples were obtained from your lung(s), you may cough up some phlegm with streaks of blood in it. This is not unusual. Fever: If washing of your lung(s) was performed, you may have a fever that night after the procedure. You can take Tylenol for this. Contact your physician if this persists or is associated with other symptoms. Nausea: There may be some nausea due to the medication given before the procedure. Activity: Have someone else drive you home. Do not operate a vehicle until tomorrow. FOR QUESTIONS OR PROBLEMS, if one of the following problems develops: Fever higher than 100.6?? F Increasing shortness of breath Coughing up more than a teaspoon of blood at a time Significant chest pain or discomfort * Attachments The following attachments cannot be sent through Care Everywhere. * Bronchoscopy: Post-op (Portuguese) documented in this encounter Medications at Time [...] 07/31/2023 predniSONE (DELTASONE) 10 mg tablet Take 3 Tablets by mouth daily for 4 days, THEN 2 Tablets daily for 4 days, THEN 1 Tablet daily for 4 days. 24 Tablet 02/27/2023 03/11/2023 predniSONE (DELTASONE) 10 mg tablet Take 4 [...] Discharge Disposition Disposition Code Departure Means Destination Comment s Home or Self Longterm documented in this encounter H&P Notes * Tex Colvin MD - 03/10/2023 1111 EDT Date of Service: 03/10/2023 Subjective: Chief Complaint: Lung mass Patient is a 57 y.o. female scheduled for EBUS bronchoscopy to biopsy lung mass. Recent increase in asthma symptoms that have improved. Now close to baseline. No hemopytsis, chest pain. Discussed Blood/Blood Products: not applicable Patient Active Problem List Diagnosis Date Noted ??? Lung mass 02/13/2023 Past Medical History: Diagnosis Date ??? Anxiety 03/01/23 not on any meds, doesn't like they make her feel ??? Asthma 03/01/23 uses albuterol inhaler 2-3x/day, nebs daily ??? Back pain 03/01/23 herniated disc mid back ??? COPD (chronic obstructive pulmonary disease) ([facility]) Noted 02/24/23 per pulmonary note ??? Deviated [...] Laterality Date ??? COLONOSCOPY 2010 and endoscopy Medications Prior to Admission Medication Sig Dispense Refill Last Dose ??? ALBUTEROL INHL Inhale as directed. ??? doxycycline (ADOXA) 100 mg tablet Take 1 Tablet by mouth 2 times daily. 20 Tablet 0 ??? fluconazole (DIFLUCAN) 100 mg tablet Take 1 Tablet by mouth daily. 14 Tablet 1 ??? naproxen sodium (ALEVE ORAL) Take by mouth. ??? predniSONE (DELTASONE) 10 mg tablet Take 3 Tablets by mouth daily for 4 days, THEN 2 Tablets daily for 4 days, THEN 1 Tablet daily for 4 days. 24 Tablet 0 ??? tiotropium (SPIRIVA) 18 mcg inhalation capsule Inhale 1 Capsule as directed daily. 30 Capsule 11 Allergies Allergen Reactions ??? Other - See Comments All Narcotics Social History Tobacco Use ??? Smoking status: Every Day Packs/day: 1.00 Years: 26.00 Additional pack years: 0.00 Total pack years: 26.00 Types: Cigarettes ??? Smokeless tobacco: Never Substance Use Topics ??? Alcohol use: Yes Comment: occ History reviewed. No pertinent family history. Review of Systems A ten point review of systems was performed and was negative except for pertinent positives noted in the HPI Objective: VS: Patient Vitals for the past 8 hrs: Temp Temp src Resp SpO2 Height Weight 03/10/23 1103 -- -- -- -- 167.6 cm (66) 53.1 kg (117 lb 1 oz) 03/10/23 1051 37.1 ??C (98.8 ??F) Temporal 16 95 % -- -- Exam: General appearance: alert, cooperative Lungs: clear to auscultation bilaterally Heart: regular rate and rhythm, S1, S2 normal, no murmur, click, rub or gallop ECG: N/A. Data ReviewNA Assessment: 1) lung mass. Plan: Proceed with EBUS Tex Colvin MD 03/10/2023 11:11 documented in this encounter Plan of Treatment Not on file documented as of this encounter Procedures Procedure Name Priority Date/Time Associated Diagnosis Comments ENDOBRONCHIAL ULTRASOUND (EBUS) GREATER THAN 3 LYMPH NODES Routine 03/10/2023 12:36 EDT SURGICAL PATHOLOGY Routine 03/10/2023 12 :17 EDT REQUEST FOR GENOMIC ANALYSIS Today 03/10/2023 12:01 EDT NON AIRCRAFT HYDRAULIC EQUIPMENT MECHANIC/FNA CYTOLOGY Routine 03/10/2023 12:01 EDT [facility] [place] GENE PANEL TEST Today 03/10/2023 12:01 EDT BRONCHOSCOPY, EBUS LINEAR 03/10/2023 11:28 EDT Lung mass documented in this encounter Results * ENDOBRONCHIAL ULTRASOUND (EBUS) PROCEDURE (03/10/2023 12:36 EDT) Narrative [facility] - 03/10/2023 12:36 EDT Procedure Performed 1) flexible diagnostic bronchoscopy 2) linear endobronchial ultrasound (EBUS) 3) EBUS-transbronchial needle aspiration (EBUS-TBNA) 4) EBUS transbronchial core needle biopsy Indications for Exam lung mass Procedure Technique Prior to the procedure, risks, benefits, alternatives were discussed with the patient who provided informed consent to proceed. ??On arrival to the procedure suite, standard two-part timeout procedures were performed. ??After administration of anesthesia, a #4 LMA was placed by anesthesiology. ??The diagnostic bronchoscope was placed easily through the LMA and advanced into the airway. ??On the vocal cords, there was a small focus of thrush. ??The vocal was otherwise appeared normal. ??Movement could not be assessed because of the sedation. ??Subglottic space was normal. ??The trachea is normal in caliber. ??The main karyna was sharp. ??On the left, airway anatomy mucosa are normal. ??She does have a normal variant with a early branching medial basal segment. ??There are no endobronchial lesions or secretions. ??On the right, the right middle and lower lobe were normal anatomically. ??There are no endobronchial lesions or secretions. ??The right upper lobe karyna was firm with edematous mucosa. ??The right upper lobe was completly occluded. ??This appeared to be extrinsic compression. ??The bronchoscope could be advanced in a very short distance. ??No obvious malignant infiltration was noted. ??The bronchoscope was then withdrawn. The EBUS bronchoscope was then placed through the LMA and advanced into the airway. ??Per request from the patient, lymph node sampling was deferred. ??The right upper lobe mass was identified on ultrasound. ??This was more visible looking more anteriorly and inferiorly. ??Using a 22-gauge needle, EBUS TBNA was performed at this location. ??Multiple passes were collected with cytopathology present. ??Cells suspicious for malignancy were seen on multiple passes. ?? Dedicated passes were collected for cell block. ??Using an 18-gauge needle, core biopsies were performed at this location and placed into formalin. ??Following this, the bronchoscope was withdrawn. The diagnostic bronchoscope was then placed back into the airway via the LMA. ??A small amount of residual blood from the previous biopsies was aspirated. ??No active bleeding was seen after observing for 2 minutes. ??Following this, the case was terminated. ??The patient was extubated and taken to PACU in stable condition. Medications Lidocaine 1% 100mg topical General anesthesia, see separate record Estimated Blood Loss - <5mL Findings 1) extrinsic compression causing occlusion of the entire right upper lobe 2) no secretions; otherwise normal lower airway examination 3) small focus of thrush on the vocal cords Procedure Diagnosis same as preprocedure Recommendations follow-up with lung cancer multidisciplinary clinci ([facility])\ Specimen(s) removed - EBUS-tbna lung mass for cytopathology EBUS core biposies for surgical pathology This electronic signature authenticates all electronic and/or handwritten documentation, including orders, generated by the signer during the episode of care contained in this record. 03/10/2023 12:36:13 PM By Tex Colvin MD us Tex Colvin MD GI PROCEDURE ORDERABLE S Final Result [facility] * SURGICAL PATHOLOGY (03/10/2023 12:17 EDT) Ancillary Studies Addendum PD-L1 IMMUNOHISTOCHEMISTRY REPORT TISSUE SUBMITTED: Tissue submitted: Paraffin embedded tissue block labelled [id number] (A1) from [facility] as part of the Advanced Lung reflex testing. PD-L1 Tissue Source and Diagnosis from Pathology Report: Lung, right upper lobe mass; adenocarcinoma DESCRIPTION: PDL-1 protein expression is determined by using Tumor Proportion Score (TPS), which is the percentage of viable tumor cells showing partial or complete membrane staining at any intensity. PDL-1 SP263 by Immunohistochemical Testing with Interpretation is a semiquantitative assay using Monoclonal Mouse Anti-PD-L1, Clone SP263 intended for use in the detection of PD-L1 protein in 10% neutral buffered formalin-fixed for more than 6 hours, and paraffin-embedded tissue. The assay was performed under appropriate conditions and tissue controls using the OptiView Detection System on the [place] [employer] Ultra. The specimen submitted for testing should contain at least 100 viable tumor cells to be considered adequate. NOTE: One or more of the reagents used in immunoperoxidase testing in this case may not have been cleared or approved by the U.S. Food and Drug Administration (FDA). The FDA has determined that such clearance or approval is not necessary. These tests are used for clinical purposes. They should not be regarded as investigational or for research. These reagents' performance characteristics have been determined by [facility] and/or by the referring laboratory. The positive and negative controls worked appropriately. If immunoperoxidase staining has been performed on alcohol fixed cytology specimens, which has not been fully validated, the assays should be interpreted with caution and correlated with clinical data. This laboratory is certified under the Clinical Laboratory Improvement Amendments of 1988 (CLIA-88) as qualified to perform high complexity clinical laboratory testing. For more information, please refer to practice guidelines published by the National Comprehensive Cancer Network (NCCN) at www.nccn.org/professio nals/physician_gls/ INTERPRETATION: PD-L1 Tumor Proportion Score (TPS): <1% 13:55 [facility] Addendum electronically signed by Tor Anders MD on 03/16/2023 at 1355 Note to Patient The following pathology results have been interpreted by your pathologist and may be available to you before your health provider has had the opportunity to review them. Please allow time for your provider to receive these results and explore management options, if applicable. 13:55 [facility] Final Diagnosis A. LUNG, RIGHT UPPER LOBE, MASS, EBUS-GUIDED CORE BIOPSY: - Adenocarcinoma, consistent with lung primary. See comment. 3 13:55 [facility] Diagnosis Comment PD-L1 immunohistochemistry staining and GenePanel Solid Tumor have been ordered on this case as part of our Reflex testing policy for advanced lung cancer and will be reported separately. Scrub Woman slides of this case were reviewed at the intradepartmental consultation conference. Immunoperoxidase stains were performed on this case to further characterize the lesion. ANTIBODY(CLONE)(BLOCK) :RESULT TTF-1 ([id number]/1, [place]) (A1): Positive NOTE: One or more of the reagents used in immunoperoxidase testing in this case may not have been cleared or approved by the U.S. Food and Drug Administration (FDA). The FDA has determined that such clearance or approval is not necessary. These tests are used for clinical purposes. They should not be regarded as investigational or for research. These reagents' performance characteristics have been determined by [facility] and/or by the referring laboratory. The positive and negative controls worked appropriately. If immunoperoxidase staining has been performed on alcohol fixed cytology specimens, which has not been fully validated, the assays should be interpreted with caution and correlated with clinical data. This laboratory is certified under the Clinical Laboratory Improvement Amendments of 1988 (CLIA-88) as qualified to perform high complexity clinical laboratory testing. 3 13:55 [facility] Attestation There was significan t resident/fellow involvement in the diagnostic evaluation of this case. By the signature below, the attending physician certifies that they have personally conducted a gross and/or microscopic examination of the described specimens and rendered or confirmed the above diagnosis. 3 13:55 [facility] at 1530 Clinical History Lung mass 3 13:55 [facility] Gross Description A. Received in formalin labelled with proper patient identification (initials D, K) and lung, right upper lobe mass, core needle biopsy, for surgical pathology is an aggregate of brown soft tissue fragments (0.6 x 0.5 x 0.1 cm). Entirely submitted in A1. Cortney Hernández 03/11/2023 14:16 3 13:55 [facility] Resident/Fell ow: Nina Perkins, 3 13:[address] [facility] Performing Lab [facility] 3 13:[address] [facility] Scanned Images 3 13:[address] [facility] Tissue STRUCTURE OF UPPER LOBE OF RIGHT LUNG / Unknown 03/10/2023 12:17 EDT 03/10/2023 13:37 EDT Tex Colvin MD PATHOLOGY ORDERABLES E dited Result - Final [facility] [address] [place] [address] * [facility] [place] GENE PANEL TEST (03/10/2023 12:01 EDT) Pathologist [facility] Gene Panel Test Results See scanned report. 04/05/2023 16:58 EDT [facility] Fine Needle Aspirate 03/10/2023 12:01 EDT 03/22/2023 11:58 EDT Tex Colvin MD LAB MOLECULAR ORDERABL ES Final Result [facility] [place] [address] [address] * REQUEST FOR GENOMIC ANALYSIS (03/10/2023 12:01 EDT) Order Status Complete - See Scanned Report 04/05/2023 16:[address] [facility] Comment: This is an updated result. Previous result was Order Received by [employer] on 03/13/2023 at 1618 EDT This is an updated result. Previous result was Tissue Reviewed and Accepted, Analysis to Follow on 03/22/2023 at 1158 EDT Fine Needle Aspirate 03/10/2023 12:01 EDT 03/13/2023 16:16 EDT us Tex Colvin MD LAB MOLECULAR ORDERABL ES Final Result [facility] [address] [place] [address] * NON AIRCRAFT HYDRAULIC EQUIPMENT MECHANIC/FNA CYTOLOGY (03/10/2023 12:01 EDT) Note to Patient The following pathology results have been interpreted by your pathologist and may be available to you before your health provider has had the opportunity to review them. Please allow time for your provider to receive these results and explore management options, if applicable. 12:[address] [facility] Final Diagnosis A. LUNG, RIGHT UPPER LOBE, 3 CM MASS, ENDOBRONCHIAL ULTRASOUND GUIDED FINE NEEDLE ASPIRATION: - Positive for malignancy, adenocarcinoma. See comment. 12:[address] [facility] Diagnosis Comment The aspirate is cellular and demonstrates groups of malignant epithelial cells within which tubular structures are seen. The cells show moderately increased nuclear to cytoplasmic ratios, nuclei with a pale chromatin and visible nucleoli and delicate cytoplasm. Some of the nuclei are eccentrically placed within the cytoplasm. The morphologic features are those of an adenocarcinoma. A cell block is prepared and shows only rare tumor cells. Please see also concurrent core biopsy ([id number]) for additional diagnostic information. PD-L1 immunohistochemistry staining and GenePanel Solid Tumor have been ordered on this case as part of our Reflex testing policy for advanced lung cancer. The patient materials will be assessed for tumor adequacy as part of this analysis and if tumor quantity is sufficient, testing will be performed and will be reported separately. 12:[address] [facility] Attestation There was significan t resident/fellow involvement in the diagnostic evaluation of this case. By the signature below, the attending physician certifies that they have personally conducted a gross and/or microscopic examination of the described specimens and rendered or confirmed the above diagnosis. 12:45 [facility] at 1245 Rapid Diagnosis A. LUNG, RIGHT UPPER LOBE MASS, 3 CM, ENDOBRONCHIAL ULTRASOUND GUIDED FINE NEEDLE ASPIRATION: Evaluation Episode 1: Pass 1: Non small cell carcinoma. Evaluation Episode 2: Pass 2: Additional tumor for IPEX. Evaluation Episode 3: Pass 3: Additional tumor for IPEX. Evaluation Episode 4: Pass 4: Malignant cells, favor adenocarcinoma. Rapid interpretation performed by: Dr. Johanny Suarez; 03/10/2023; 1230 I was present at the procedure and personally reviewed the slides and the fellow's interpretation and agree with the findings. Dr. Francisco Stein; 03/10/23; 1230 3 12:[address] [facility] Clinical History Lung mass 3 12:[address] [facility] Gross Description A. 8 fixed prepared slides and 1 tube of RPMI for cell block processing were received. 3 12:[address] [facility] Resident/Fell ow: Crystal Suarez MD 3 12:[address] [facility] Performing Lab [facility] [address] 12:[address] [facility] Scanned Images 3 12:[address] [facility] Fine Needle Aspirate STRUCTURE OF UPPER LOBE OF RIGHT LUNG / Unknown 03/10/2023 12:01 EDT 03/10/2023 12:34 EDT us Tex Colvin MD PATHOLOGY ORDERABLES F inal Result [facility] [address] [place] [address] documented in this encounter Visit Diagnoses Diagnosis Lung mass- Primary Swelling, mass, or lump in chest Lung mass Swelling, mass, or lump in chest documented in this encounter Admitting Diagnoses Diagnosis Lung mass Swelling, mass, or lump in chest documented in this encounter Administered Medications Inactive Administered Medications - up to 3 most recent administrations Medication Order MAR Action Action Date Dose Rate Site acetaminophen (TYLENOL) tablet 650 mg 650 mg, oral, ONCE PRN, 1 dose, Starting on Mon03/10/23 at 1200, Until Mon03/10/23 at 1544, Pain, Routine, Recovery (only) albuterol 2.5 mg /3 mL (0.083 %) nebulizer solution 1 dose, Starting on Mon03/10/23 at 1241, Until Mon03/10/23 at 1249 albuterol nebulizer solution 2.5 mg 2.5 mg, nebulization, PACU PRN, Starting on Mon03/10/23 at 1240, Until Mon03/10/23 at 1544, Wheezing, Routine, Recovery (only) Given 03/10/2023 12:49 EDT 2.5 mg atropine 0.1 mg/mL syringe 0.5 mg 0.5 mg, intravenous, PRN, Starting on Mon03/10/23 at 1230, Until Mon03/10/23 at 1544, Symptomatic HR < 50, Routine, Recovery (only) diphenhydrAMINE (BENADRYL) injection 12.5 mg 12.5 mg, intravenous, PRN, 1 dose, Starting on Mon03/10/23 at 1230, Until Mon03/10/23 at 1544, nausea, Routine, Recovery (only) lactated ringers (LR) infusion at 75 mL/hr, intravenous, CONTINUOUS, Starting on Mon03/10/23 at 1300, Until Mon03/10/23 at 1544, Routine, Recovery (only) metoclopramide (REGLAN) injection 10 mg 10 mg, intravenous, PRN, 1 dose, Starting on Mon03/10/23 at 1230, Until Mon03/10/23 at 1544, Nausea, Routine, Recovery (only) naloxone (NARCAN) injection 0.2 mg 0.2 mg, intravenous, PRN, Starting on Mon03/10/23 at 1230, Until Mon03/10/23 at 1544, Opioid Reversal, Routine, Recovery (only) sodium chloride 0.9 % (NS) infusion 25 mL/hr, intravenous, CONTINUOUS, Starting on Mon03/10/23 at 1100, Until Mon03/10/23 at 1544, Routine, Preprocedure Restarted 03/10/2023 11:40 EDT Continued by Anesthesia 03/10/2023 11:39 EDT 25 mL/hr New Bag 03/10/2023 11:29 EDT 25 mL/hr 25 mL/hr documented in this encounter Historical Medications * This list may reflect changes made after this encounter. ZINC ORAL Take 50 mcg by mouth. ascorbic acid, vitamin C, (VITAMIN C) 500 mg tablet Take 1 Tablet by mouth daily. Cholecalciferol, Vitamin D3, 10 mcg (400 unit) tablet Take 1 Tablet by mouth daily. albuterol (ACCUNEB) 1.25 mg/3 mL nebulizer solution Inhale 3 mL as directed 3 times daily. added in this encounter Active and Recently Administered Medications Times are shown in EDT. Continuous Medication Order 03/08/2023 03/09/2023 03/10/2023 lactated ringers (LR) infusion at 75 mL/hr, intravenous, CONTINUOUS, Starting on Mon03/10/23 at 1300, Until Mon03/10/23 at 1544, Routine, Recovery (only) 1236 (Continued Infu valentín - Provider: Kiana Franklin RN)1345 (Completed - Provider: Kiana Franklin RN) sodium chloride 0.9 % (NS) infusion 25 mL/hr, intravenous, CONTINUOUS, Starting on Mon03/10/23 at 1100, Until Mon03/10/23 at 1544, Routine, Preprocedure 1129 (New Bag - Prov ider: Beth Carr RN)1139 (Continued by Anesthesia - Provider: Yao Brooks CRNA)1139 (Paused - Provider: Yao Brooks CRNA - Comment: Switch to gravity)1140 (Restarted - Provider: Yao Brooks CRNA)1238 (Anesthesia Volume Adjustment - Provider: Cortney Cadet MD) PRN Medication Order 03/08/2023 03/09/2023 03/10/2023 acetaminophen (TYLENOL) tablet 650 mg 650 mg, oral, ONCE PRN, 1 dose, Starting on Mon03/10/23 at 1200, Until Mon03/10/23 at 1544, Pain, Routine, Recovery (only) albuterol nebulizer solution 2.5 mg 2.5 mg, nebulization, PACU PRN, Starting on Mon03/10/23 at 1240, Until Mon03/10/23 at 1544, Wheezing, Routine, Recovery (only) 1249 (Given - Provid er: Kiana Franklin RN) atropine 0.1 mg/mL syringe 0.5 mg 0.5 mg, intravenous, PRN, Starting on Mon03/10/23 at 1230, Until Mon03/10/23 at 1544, Symptomatic HR < 50, Routine, Recovery (only) diphenhydrAMINE (BENADRYL) injection 12.5 mg 12.5 mg, intravenous, PRN, 1 dose, Starting on Mon03/10/23 at 1230, Until Mon03/10/23 at 1544, nausea, Routine, Recovery (only) metoclopramide (REGLAN) injection 10 mg 10 mg, intravenous, PRN, 1 dose, Starting on Mon03/10/23 at 1230, Until Mon03/10/23 at 1544, Nausea, Routine, Recovery (only) naloxone (NARCAN) injection 0.2 mg 0.2 mg, intravenous, PRN, Starting on Mon03/10/23 at 1230, Until Mon03/10/23 at 1544, Opioid Reversal, Routine, Recovery (only) documented in this encounter Orders Medications Ordered That Christiano ht Not Have Been Administered Count Last Ordered Date First Ordered Date acetaminophen (TYLENOL) tablet 650 mg 1 atropine 0.1 mg/mL syringe 0.5 mg 1 023 diphenhydrAMINE (BENADRYL) i njection 12.5 mg 1 03/10/2023 lactated ringers (LR) infusion 1 03/10/2023 lidocaine (PF) 10 mg/mL (1 % ) injection 2 mg 1 03/10/2023 metoclopramide (REGLAN) injection 10 mg 1 0 03/10/2023 naloxone (NARCAN) injection 0.2 mg 1 2022 Discharge Count Last Ordered Date First Orde red Date DISCHARGE PATIENT 1 03/10/2023 documented in this encounter Care Teams Building Attendant Relationship Specialty Start Date End Date Unknown, Provider, PCP - General 03/10/23 06/18/23 documented as of this encounter
--- OUTSIDE RECORDS SUMMARY | 2024-05-28 11:45 | XMS_ITS | Encounter Summary ---
Author Organization [facility] [place] Address [address] [place] [address] Care Team Providers Care Clinical Laboratory Manager Name Role Phone Unknown, Provider MD Primary Care Provider Unava ilable Reason for Referral * Consult (Urgent) - Authorization Not Required Specialty Diagnoses / Procedures Referred By [facility] t Referred To Contact Hematology and Oncology Diagnoses Malignant neoplasm of upper lobe of right lung (HCC-CMS) Sarahi Hyatt MD Phone: tel: fax: [facility] Hematology & Oncology [address] [address] Phone: tel: fax: Referral ID Status Reason Start Date Expiration Date Visits Requested Visits Authorized [id number] Authorization Not Required Specialty Services Required 3 1 1 Question Answer Insurance / Financial Yes - pt needs assistance to come to fu appointments Encounter Details Date Type Department Care Team (Late st Contact Info) Description 05/19/2023 Orders Only [facility] Hematology & Oncology [address] [address] Alf Gonzales, MELQUIADES Malignant neoplasm of upper lobe of right [...] Type Priority Associated Diagnoses Orde r Schedule AMB SOCIAL WORK SERVICES Outpatient Referral Urgent Malignant neoplasm of upper lobe of right lung (HCC-CMS) Expected: 05/21/2023 (Approximate), Expires: 05/19/2024 documented as of this encounter Visit Diagnoses Diagnosis Malignant neoplasm of upper lobe of right lung (HCC-CMS)- Primary Malignant neoplasm of upper lobe, bronchus or lung documented in this encounter Care Teams Clinical Laboratory Manager Relationship Specialty Start Date End Date Unknown, Provider, PCP - General 03/10/23 06/18/23 documented as of this encounter
--- OUTSIDE RECORDS SUMMARY | 2024-05-28 11:45 | XMS_ITS | Encounter Summary ---
Author Organization [facility] Address [address] [place] [address] Care Team Providers Care Customs Consultant Name Role Phone None, Provider Primary Care Provider Unavailabl e Encounter Details Date Type Department Care Team ([facility] st Contact Info) Description 03/08/[address] [facility] Pulmonology & Critical Care - [address] [address] Tex Colvin MD [address] [place] [address], [address] [place] [address] Lung mass (Primary Dx) Social History Tobacco [...] of this encounter Visit Diagnoses Diagnosis Lung mass- Primary Swelling, mass, or lump in chest documented in this encounter Orders Case Request Count Last Ordered Date First Orde red Date CASE REQUEST OPERATING ROOM 1 03/08/2023 documented in this encounter Care Teams Customs Consultant Relationship Specialty Start Date End Date None, Provider PCP - General 02/08/23 03/09/23 documented as of this encounter
--- OUTSIDE RECORDS SUMMARY | 2024-05-28 11:45 | XMS_ITS | Encounter Summary ---
Author Organization [facility] Address [address] [place] [address] Care Team Providers Care Fur Matcher Name Role Phone Unknown, Provider Primary Care Provider Unava ilable Reason for Referral * (Routine/Next Available) - Receiving Office to Obtain Authorization Specialty Diagnoses / Procedures Referred By Contac t Referred To Contact Procedures MR OUTSIDE IMAGES HEAD Imaging, External Referral ID Status Reason Start Date Expiration Date Visits Requested Visits Authorized [id number] Receiving Office to Obtain Authorization 04/13/2023 1 1 Reason for Visit * (Routine/Next Available) - Receiving Office to Obtain Authorization Specialty Diagnoses / Procedures Referred By Contac t Referred To Contact Procedures MR OUTSIDE IMAGES HEAD Imaging, External Referral ID Status Reason Start Date Expiration Date Visits Requested Visits Authorized [id number] Receiving Office to Obtain Authorization 04/13/2023 1 1 Encounter Details Date Type Department Care Team (Latest Contact Info) Description 04/12/2023 - 04/12/2023 0:04 EDT Hospital Encounter [facility] Secondary Reads [place] Discharge Disposition: Home or [...] Date/Time Associated Diagnosis Comments MR OUTSIDE IMAGES HEAD Routine 04/12/2023 8:50 EDT documented in this encounter Results * MR OUTSIDE IMAGES HEAD (04/12/2023 8:50 EDT) Narrative 04/13/2023 8:50 EDT This is a non-reportable exam. us External Imaging IMG OTHER IMAGING ORDERABLES Fi nal Result documented in this encounter Visit Diagnoses Not on filedocumented in this encounter Care Teams Fur Matcher Relationship Specialty Start Date End Date Unknown, Provider, PCP - General 03/10/23 06/18/23 documented as of this encounter
--- OUTSIDE RECORDS SUMMARY | 2024-05-28 11:45 | XMS_ITS | Encounter Summary ---
Author Organization [facility] Address [address] [place] [address] Care Team Providers Care Basket Operator Name Role Phone Unknown, Provider Primary Care Provider Unava ilable Encounter Details Date Type Department Care Team (Late st Contact Info) Description 03/15/2023 Orders Only [facility] Radiology - [address] [phone] Ronny Madrigal MD [address] [place] [address], [address] [place] [address] Social History Tobacco Use Types [...] on filedocumented in this encounter Care Teams Basket Operator Relationship Specialty Start Date End Date Unknown, Provider, PCP - General 03/10/23 06/18/23 documented as of this encounter
--- OUTSIDE RECORDS SUMMARY | 2024-05-28 11:45 | XMS_ITS | Encounter Summary ---
Author Organization [facility] Address [address] [place] [address] Care Team Providers Care Document Control Manager Name Role Phone None, Provider Primary Care Provider Unavailabl e Reason for Visit * (Routine/Next Available) - Receiving Office to Obtain Authorization Specialty Diagnoses / Procedures Referred By Za laird Referred To Contact Procedures XR OUTSIDE IMAGES CHEST Imaging, External Referral ID Status Reason Start Date Expiration Date Visits Requested Visits Authorized [id number] Receiving Office to Obtain Authorization 03/08/2023 1 1 Encounter Details Date Type Department Care Team (Latest Contact Info) Description 03/08/2023 17:44 EDT - 03/08/2023 23:59 EDT Hospital Encounter [facility] Secondary Reads [place] Discharge Disposition: Home [...] ZINC ORAL Take 50 mcg by mouth. doxycycline (ADOXA) 100 mg tablet Take 1 [...] Diagnosis Comments XR OUTSIDE IMAGES CHEST Routine 03/08/2023 17:45 EDT documented in this encounter Results * XR OUTSIDE IMAGES CHEST (03/08/2023 17:45 EDT) Narrative 03/08/2023 17:45 EDT This is a non-reportable exam. us External Imaging IMG OTHER IMAGING ORDERABLES Fi nal Result documented in this encounter Visit Diagnoses Not on filedocumented in this encounter Care Teams Document Control Manager Relationship Specialty Start Date End Date None, Provider PCP - General 02/08/23 03/09/23 documented as of this encounter
--- OUTSIDE RECORDS SUMMARY | 2024-05-28 11:45 | XMS_ITS | Encounter Summary ---
Author Organization [facility] Address [address] [place] [address] Care Team Providers Care Textile Stylist Name Role Phone Unknown, Provider MD Primary Care Provider Unava ilable Encounter Details Date Type Department Care Team (Late st Contact Info) Description 03/10/2023 11:39 EDT Anesthesia Event [facility] OR [address] [place] [id number] Cortney Cadet MD Anesthesia Record Procedure Summary Procedure Name Responsible Anesthesiologist Anesthesia Start Time Anesthesia Stop Time Linear endobronchial ultrasound bronchoscopy, transbronchial needle biopsy, possible lavage, possible endobronchial biopsy; biopsy of mass only, no lymph node biopsies (Chest) Cortney Cadet MD 03/10/23 1139 03/10/23 1238 Events Date Time Event Comment 03/10/2023 1139 An Start The patient was re-evaluated immediately before moderate or deep sedation use, before anesthesia induction, or before the anesthesia procedure. 1139 An Start Data 1146 An Induction The patient was reevaluated immediately before moderate or deep sedation use and before anesthesia induction. 1147 An Intubation 1150 Anesthesia Ready 1231 An Extubation 1232 an stop data 1238 Handoff to RN I completed my handoff to the receiving nurse during which we: 1. Identified the patient 2. Identified the responsible provider 3. Reviewed the pertinent medical history 4. Discussed the surgical course 5. Reviewed intra-op anesthesia management and issues during anesthesia 6. Set expectations for post-procedure period 7. Allowed opportunity for questions and acknowledgement of understanding. 1238 An Stop Meds Name Total dexaMETHasone (DECADRON) injection 4 mg/ mL (for IV doses up to 10mg) 4 mg fentanyl citrate (PF) injection 100 mcg midazolam (versed) 1 mg/mL 2 mL vial 2 m g ondansetron (PF) (ZOFRAN) injection 4 mg lidocaine 2% (PF) injection glass vial 6 0 mg phenylephrine 1 mg/10 mL pre -filled SYRINGE (Bolus or short duration infusion) 150 mcg propOFol (DIPRIVAN) injection 465,233 mc g remifentanil (ULTIVA) 2,000 mcg in sodiu m chloride (NS) 100 mL 157.18 mcg sodium chloride 0.9 % (NS) infusion 200 mL * Agents Name O2 N2O Air * Blood No blood administrations on file. Lines, Drains, and Airways Type Details Placement Removal Peripheral IV 03/10/23; 1128; 20; 1.25; B Rasmussen Introcan; Left, Posterior; Forearm; Inserted by RN (Arlen Hayes); 1; None; 2% Chlorhexidine with IPA; 03/10/23; 1334; Per protocol; No complications 03/10/23 1128 by Beth Carr RN 03/10/23 1334 by Kiana Franklin RN Non-Surgical Airway 03/10/23; 1158 (jayne kan via procedure documentation); 03/10/23; 1231 03/10/23 1158 by Yao Brooks CRNA 03/10/23 1231 by Yao Brooks CRNA documented in this encounter Social History Tobacco [...] 12/26/2022 14:52 EDT documented in this encounter OR Notes * Anesthesia Postprocedure Evaluation - Cortney Cadet MD - 03/10/2023 1238 EDT Patient: Nakita Hancock Vital signs were reviewed with the recovery nurse. [facility] Vitals Value Taken Time BP 115/96 03/10/23 1236 Temp 36.4 03/10/23 1238 Resp 17 03/10/23 1238 Pulse From Oximetry 98 BPM 03/10/23 1238 SpO2 98 % 03/10/23 1238 Heart Rate 98 BPM 03/10/23 1238 Vitals shown include unvalidated device data. Last Pain Score - Numeric Pain Level (Scale 1-10): 0 Type of Anesthesia - general Anesthesia Post Evaluation Level of consciousness: awake Temperature status: normothermia Respiratory status: airway patent and nasal cannula Cardiovascular status: acceptable Hydration status: adequate Nausea/Vomiting: none Pain management: adequate Post-Op Assessment: patient tolerated procedure well with no complications Patient participation: able to participate Disposition: outpatient/home Anesthesia Complications: No apparent anesthesia complications * Anesthesia Procedure Notes - Yao Brooks CRNA - 03/10/2023 1157 EDT Associated Order(s): Airway Airway Date/Time: 03/10/2023 11:47 Urgency: elective Airway not difficult General Information and Staff Patient location during procedure: OR Resident/ORACLE MANAGER: Yao Brooks CRNA Performed: resident/ORACLE MANAGER/AA Performed by: Yao Brooks CRNA Authorized by: Cortney Cadet MD Indications and Patient Condition Indications for airway management: anesthesia Sedation level: GA Preoxygenated: yes Ventilation assessment: 0 - not attempted Final Airway Details Final airway type: supraglottic airway Successful airway: LMA Size 4 Number of attempts at approach: 1 Additional Comments auraGain LMA * Anesthesia Preprocedure Evaluation - Cortney Caedt MD - 03/09/2023 1639 EDT Anesthesia Preprocedure Evaluation Patient Medical History, including Anesthesia History reviewed. Chart and Nursing Notes reviewed, including NPO status and Medication History. Additional ROS/History Findings: 57 year old female with a history of a lung mass (5.3 x 4.3 cm, possible increased to 8.5 cm) who presents for a linear endobronchial ultrasound bronchoscopy. No prior anesthetics seen in [facility]. Tolerated conscious sedation well previously. Unable to climb 2 flights of stairs at this time. Still does her own grocery shopping. Uses albuterol 3-4 times per day. No daily inhaler. No Known Allergies Review of Systems Constitutional: Negative for chills and fever. HENT: Negative for sore throat. Respiratory: Positive for cough, shortness of breath and wheezing. Cardiovascular: Negative for chest pain and palpitations. Gastrointestinal: Negative for heartburn. Musculoskeletal: Negative for neck pain. Past Medical History: Diagnosis Date ??? Anxiety 03/01/23 not on any meds, doesn't like they make her feel ??? Asthma 03/01/23 uses albuterol inhaler 2-3x/day, nebs daily ??? Back pain 03/01/23 herniated disc mid back ??? COPD (chronic obstructive pulmonary disease) ([facility]) Noted 02/24/23 per pulmonary note ??? Deviated [...] ??? Shortness of breath 03/01/23 with activity Relevant Problems No relevant active problems Physical Exam Airway Mallampati: II TM distance: >3 FB Neck ROM: full Cardiovascular - normal exam Rhythm: regular Rate: normal Dental Comments: Poor Pulmonary - normal exam Breath sounds clear to auscultation Abdominal (-) obese Anesthesia Plan ASA 3 Anesthesia Type - general, to include intravenous induction. Block for post-op pain? No Anesthesia plan and risks discussed. Informed consent obtained from patient. Specific risks discussed were nausea and vomiting. Code status discussed? No The preoperative history and physical which was performed within 30 days of this procedure, has been reviewed and the clinically appropriate elements of the physical examination have been repeated. There are no changes to the documented history and physical or, if so, such changes are documented inthis note PAT Note Notes from 02/07/23 through 03/09/23 No notes of this type exist for this encounter. documented in this encounter Plan of Treatment Not on file documented as of this encounter Procedures Procedure Name Priority Date/Time Associated Diagnosis Comments ANESTHESIA INTUBATION Routine 03/10/2023 11:47 EDT documented in this encounter Results * CA AN ELECTIVE SUPRAGLOTTIC AIRWAY (03/10/2023 11:47 EDT) Narrative Yao Brooks CRNA - 03/10/2023 11:47 EDT Yao Brooks CRNA ? 03/10/2023 11:58 Airway Date/Time: 03/10/2023 11:47 Urgency: elective Airway not difficult General Information and Staff Patient location during procedure: OR Resident/ORACLE MANAGER: Yao Brooks CRNA Performed: resident/ORACLE MANAGER/AA Performed by: Yao Brooks CRNA Authorized by: Cortney Cadet MD ?? Indications and Patient Condition Indications for airway management: anesthesia Sedation level: GA Preoxygenated: yes Ventilation assessment: 0 - not attempted Final Airway Details Final airway type: supraglottic airway Successful airway: LMA Size 4 Number of attempts at approach: 1 Additional Comments auraGain LMA us Cortney Cadet MD ANESTHESIA ORDERABLES Final R esult documented in this encounter Visit Diagnoses Not on filedocumented in this encounter Administered Medications Inactive Administered Medications - up to 3 most recent administrations Medication Order MAR Action Action Date Dose Rate Site dexAMETHasone (DECADRON) injection intravenous, PRN, Starting on Mon03/10/23 at 1152, Until Mon03/10/23 at 1238, Routine, Anesthesia Intraprocedure Given 03/10/2023 11:52 EDT 4 mg fentaNYL citrate (PF) injection intravenous, PRN, Starting on Mon03/10/23 at 1142, Until Mon03/10/23 at 1238, Routine, Anesthesia Intraprocedure Given 03/10/2023 11:42 EDT 100 mcg lidocaine (PF) 20 mg/mL (2 %) injection intravenous, PRN, Starting on Mon03/10/23 at 1146, Until Mon03/10/23 at 1238, Routine, Anesthesia Intraprocedure Given 03/10/2023 11:46 EDT 60 mg midazolam (PF) (VERSED) injection intravenous, PRN, Starting on Mon03/10/23 at 1143, Until Mon03/10/23 at 1238, Routine, Anesthesia Intraprocedure Given 03/10/2023 11:43 EDT 2 mg ondansetron (PF) (ZOFRAN) injection intravenous, PRN, Starting on Mon03/10/23 at 1204, Until Mon03/10/23 at 1238, Routine, Anesthesia Intraprocedure Given 03/10/2023 12:04 EDT 4 mg phenylephrine HCl in 0.9% NaCl injection intravenous, PRN, Starting on Mon03/10/23 at 1149, Until Mon03/10/23 at 1238, Routine, Anesthesia Intraprocedure Given 03/10/2023 12:09 EDT 50 mcg Given 03/10/2023 11:49 EDT 100 mcg propOFol (DIPRIVAN) injection intravenous, PRN, Starting on Mon03/10/23 at 1146, Until Mon03/10/23 at 1238, Routine, Anesthesia Intraprocedure Rate Change 03/10/2023 12:03 EDT 130 mcg/kg/min 41.418 mL/hr Rate Change 03/10/2023 11:54 EDT 150 mcg/kg/min 47.79 mL/h r Given 03/10/2023 11:53 EDT 30 mg remifentanil (ULTIVA) 2,000 mcg in sodium chloride (NS) 100 mL intravenous, FA IP EQF CONTINUOUS PRN FOR ONE STEP MEDS, Starting on Mon03/10/23 at 1144, Until Mon03/10/23 at 1238, Anesthesia Intraprocedure New Bag 03/10/2023 11:44 EDT 0.08 mcg/kg/min 12.744 mL/hr sodium chloride 0.9 % (NS) infusion 25 mL/hr, intravenous, CONTINUOUS, Starting on Mon03/10/23 at 1100, Until Mon03/10/23 at 1544, Routine, Preprocedure Restarted 03/10/2023 11:40 EDT Continued by Anesthesia 03/10/2023 11:39 EDT 25 mL/hr New Bag 03/10/2023 11:29 EDT 25 mL/hr 25 mL/hr documented in this encounter Care Teams Textile Stylist Relationship Specialty Start Date End Date Unknown, Provider, PCP - General 03/10/23 06/18/23 documented as of this encounter
--- OUTSIDE RECORDS SUMMARY | 2024-05-28 11:45 | XMS_ITS | Encounter Summary ---
Author Organization [facility] Address [address] [place] [address] Care Team Providers Care Emergency Medical Dispatcher Name Role Phone Unknown, Provider MD Primary Care Provider Unava ilable Reason for Visit * Reason Onset Date Comments Coordination Of Care 03/17/2023 Orders (Non Pre-visit) 03/17/2023 Encounter Details Date Type Department Care Team (Late st Contact Info) Description 03/17/2023 Telephone [facility] Pulmonology & Critical Care - [address] [phone] Tex Colvin MD [address] [facility] [place], [address] [place] [address] Coordination Of Care; Orders (Non Pre-visit) Social History Tobacco Use Types Packs/Day Years [...] encounter Miscellaneous Notes * Telephone Encounter - Macey Mcknight - 03/17/2023 1216 EDT Michelle from [facility] Radiology Dept called to advise she was able to schedule patient for the Urgent Request for MRI on 03/24/2023. Michelle was unsure who had called regarding this but wanted to advise patient is scheduled. documented in this encounter Plan of Treatment Not on file documented as of this encounter Visit Diagnoses Not on filedocumented in this encounter Care Teams Emergency Medical Dispatcher Relationship Specialty Start Date End Date Unknown, Provider, PCP - General 03/10/23 06/18/23 documented as of this encounter
--- OUTSIDE RECORDS SUMMARY | 2024-05-28 11:45 | XMS_ITS | Encounter Summary ---
Author Organization [facility] Address [address] [place] [address] Care Team Providers Care Repair Servicer Name Role Phone Unknown, Provider MD Primary Care Provider Unava ilable None, Provider Primary Care Provider Unavailabl e Encounter Details Date Type Department Care Team (Late st Contact Info) Description 03/10/2023 Orders Only [facility] Pulmonology & Critical Care - [address] [address] Tex Colvin MD [address] [place] [address], [address] [place] [id number] Social History Tobacco Use Types Packs/Day Years [...] Refills Last Filled Start Date End Date fluconazole (DIFLUCAN) 100 mg tablet Take 1 Tablet by mouth daily. 5 Tablet 03/10/2023 07/31/2023 amoxicillin-clavul anate (AUGMENTIN) 875-125 mg per tablet Take 1 Tablet by mouth daily. 14 Tablet 03/10/2023 04/26/2023 documented in this encounter Plan of Treatment Not on file documented as of this encounter Visit Diagnoses Not on filedocumented in this encounter Care Teams Repair Servicer Relationship Specialty Start Date End Date Unknown, Provider, PCP - General 03/10/23 06/18/23 None, Provider PCP - General 06/19/23 documented as of this encounter
--- OUTSIDE RECORDS SUMMARY | 2024-05-28 11:45 | XMS_ITS | Encounter Summary ---
Author Organization [facility] Address [address] [place] [address] Care Team Providers Care Quality Control Operator Name Role Phone Unknown, Provider Primary Care Provider Unava ilable Reason for Referral * Consult (Routine/Next Available) - New Request Specialty Diagnoses / Procedures Referred By [facility] Referred To Contact Hematology and Oncology Diagnoses Malignant neoplasm of lung, unspecified laterality, unspecified part of lung (HCC-CMS) Tex Colvin MD Phone: tel: fax: Referral ID Status Reason Start Date Expiration Date Visits Requested Visits Authorized [id number] New Request Specialty Services Required 03/22/2023 1 1 Question Answer Location [facility] Tumor Board Lung Working Stage TBD Additional Providers No Clinical Question? Yes Specify clinical question stage and treatment options Radiology Review Review Recent Radiology Are there studies that were perfomed outside of [facility] (even if performed at another network location) that need to be reviewed? No Question to be answered: Assess tumor for resectability Pathology Review Review Recent Pathology Please indicate which slides are to be reviewed and add the pathology question recent lung biopsy Trial Options No Encounter Details Date Type Department Care Team (Late st Contact Info) Description 03/22/2023 Orders Only [facility] Hematology & Oncology - [address] [phone] Alf Gonzales, RN Malignant neoplasm of lung, unspecified laterality, unspecified part of lung (HCC-CMS) (Primary Dx) Social History [...] Priority Associated Diagnoses Orde r Schedule AMB CONSULT/FOLLOW UP TUMOR BOARD Outpatient Referral Routine Malignant neoplasm of lung, unspecified laterality, unspecified part of lung (HCC-CMS) Ordered: 03/22/2023 documented as of this encounter Visit Diagnoses Diagnosis Malignant neoplasm of lung, unspecified laterality, unspecified part of lung (HCC-CMS)- Primary documented in this encounter Care Teams Quality Control Operator Relationship Specialty Start Date End Date Unknown, Provider, PCP - General 03/10/23 06/18/23 documented as of this encounter
--- OUTSIDE RECORDS SUMMARY | 2024-05-28 11:45 | XMS_ITS | Encounter Summary ---
Author Organization [facility] Address [address] [place] [address] Care Team Providers Care Raw Stock Drier Tender Name Role Phone Unknown, Provider Primary Care Provider Unava ilable Reason for Referral * (Routine/Next Available) - Receiving Office to Obtain Authorization Specialty Diagnoses / Procedures Referred By Contac t Referred To Contact Procedures CT OUTSIDE IMAGES CHEST Imaging, External Referral ID Status Reason Start Date Expiration Date Visits Requested Visits Authorized [id number] Receiving Office to Obtain Authorization 3 1 1 Reason for Visit * (Routine/Next Available) - Receiving Office to Obtain Authorization Specialty Diagnoses / Procedures Referred By Contac t Referred To Contact Procedures CT OUTSIDE IMAGES CHEST Imaging, External Referral ID Status Reason Start Date Expiration Date Visits Requested Visits Authorized [id number] Receiving Office to Obtain Authorization 3 1 1 Encounter Details Date Type Department Care Team (Latest Contact Info) Description 05/15/2023 16:18 EDT - 05/15/2023 23:59 EDT Hospital Encounter [facility] Secondary Reads [place] Discharge Disposition: Home [...] Comments CT OUTSIDE IMAGES CHEST Routine 05/15/2023 16:19 EDT documented in this encounter Results * CT OUTSIDE IMAGES CHEST (05/15/2023 16:19 EDT) Narrative 05/15/2023 16:19 EDT This is a non-reportable exam. us External Imaging IMG OTHER IMAGING ORDERABLES Fi nal Result documented in this encounter Visit Diagnoses Not on filedocumented in this encounter Care Teams Raw Stock Drier Tender Relationship Specialty Start Date End Date Unknown, Provider, PCP - General 03/10/23 06/18/23 documented as of this encounter
--- OUTSIDE RECORDS SUMMARY | 2024-05-28 11:45 | XMS_ITS | Encounter Summary ---
Author Organization [facility] Address [address] [place] [address] Care Team Providers Care Nursing Unit Manager Name Role Phone Unknown, Provider MD Primary Care Provider Unava ilable None, Provider Primary Care Provider Unavailabl e Reason for Visit * Reason Onset Date Comments Results 03/13/2023 Encounter Details Date Type Department Care Team (Late st Contact Info) Description 03/13/2023 Telephone [facility] Pulmonology & Critical Care - [address] [id number] Txe Colvin MD [address] [place] [address], [address] [place] [address] Results Social History Tobacco Use [...] encounter Miscellaneous Notes * Telephone Encounter - Colin Pandya - 03/13/2023 0843 EDT Pt had Bronchoscopy on Monday and would like to discuss the findings. She states she is still feeling bad three days later. Please contact pt. documented in this encounter Plan of Treatment Not on file documented as of this encounter Visit Diagnoses Not on filedocumented in this encounter Care Teams Nursing Unit Manager Relationship Specialty Start Date End Date Unknown, Provider, PCP - General 03/10/23 06/18/23 None, Provider PCP - General 06/19/23 documented as of this encounter
--- OUTSIDE RECORDS SUMMARY | 2024-05-28 11:45 | XMS_ITS | Encounter Summary ---
Author Organization [facility] Address [address] [place] [address] Care Team Providers Care Gluer And Slicer Hand Name Role Phone Unknown, Provider MD Primary Care Provider Unava ilable None, Provider Primary Care Provider Unavailabl e Encounter Details Date Type Department Care Team (Late st Contact Info) Description 03/16/2023 Orders Only [facility] Hematology & Oncology - [facility] [address] [place] [address] Alf Gonzales, RN Malignant neoplasm of lung, [...] Primary documented in this encounter Care Teams Gluer And Slicer Hand Relationship Specialty Start Date End Date Unknown, Provider, PCP - General 03/10/23 06/18/23 None, Provider PCP - General 06/19/23 documented as of this encounter
--- OUTSIDE RECORDS SUMMARY | 2024-05-28 11:45 | XMS_ITS | Encounter Summary ---
Author Organization [facility] Address [address] [place] [address] Care Team Providers Care Rug Dyer Helper Name Role Phone Unknown, Provider MD Primary Care Provider Unava ilable Reason for Referral * Radiology Services (Routine/Next Available) - Specialty Report Received Specialty Diagnoses / Procedures Referred By Contsofiya t Referred To Contact Diagnoses Malignant neoplasm of lung, unspecified laterality, unspecified part of lung (HCC-CMS) Procedures CT CHEST W CONTRAST CHG DIAGNOSTIC COMPUTED TOMOGRAPHY THORAX W/CONTRAST Sarahi Hyatt MD Phone: tel: fax: Referral ID Status Reason Start Date Expiration Date V isits Requested Visits Authorized [id number] Specialty Report Received 04/18/2023 1 1 Encounter Details Date Type Department Care Team (Late st Contact Info) Description 04/18/2023 Orders Only [facility] Center Hematology & Oncology - [facility] [address] [place], [place] [phone] Alf Gonzales, MELQUIADES Malignant neoplasm of lung, unspecified laterality, unspecified [...] Priority Associated Diagnoses Orde r Schedule CT CHEST W CONTRAST Imaging Routine Malignant neoplasm of lung, unspecified laterality, unspecified part of lung (HCC-CMS) Expected: 04/25/2023 (Approximate), Expires: 10/17/2024 documented as of this encounter Visit Diagnoses Diagnosis Malignant neoplasm of lung, unspecified laterality, unspecified part of lung (HCC-CMS)- Primary documented in this encounter Care Teams Rug Dyer Helper Relationship Specialty Start Date End Date Unknown, Provider, PCP - General 03/10/23 06/18/23 documented as of this encounter
--- OUTSIDE RECORDS SUMMARY | 2024-05-28 11:45 | XMS_ITS | Encounter Summary ---
Author Organization [facility] Address [address] [place] [address] Care Team Providers Care County Auditor Name Role Phone Unknown, Provider MD Primary Care Provider Unava ilable Reason for Referral * Radiology Services (Routine/Next Available) - Specialty Report Received Specialty Diagnoses / Procedures [facility] Referred To Contact Diagnoses Malignant neoplasm of upper lobe of right lung (HCC-CMS) Procedures MR ABDOMEN W WO CONTRAST CHG MRI, ABDOMEN, COMBO Tex Colvin MD Phone: tel: fax: Referral ID Status Reason Start Date Expiration Date V isits Requested Visits Authorized [id number] Specialty Report Received 03/16/2023 1 1 Encounter Details Date Type Department Care Team (Late st Contact Info) Description 03/16/2023 Orders Only [facility] Hematology & Oncology - [facility] [place] [address] [place], [place] [phone] Alf Gonzales, MELQUIADES Malignant neoplasm of upper [...] Type Priority Associated Diagnoses Orde r Schedule MR ABDOMEN W WO CONTRAST Imaging Routine Malignant neoplasm of upper lobe of right lung (HCC-CMS) Expected: 03/23/2023 (Approximate), Expires: 09/13/2024 documented as of this encounter Visit Diagnoses Diagnosis Malignant neoplasm of upper lobe of right lung (HCC-CMS)- Primary Malignant neoplasm of upper lobe, bronchus or lung documented in this encounter Care Teams County Auditor Relationship Specialty Start Date End Date Unknown, Provider, PCP - General 03/10/23 06/18/23 documented as of this encounter
--- OUTSIDE RECORDS SUMMARY | 2024-05-28 11:45 | XMS_ITS | Encounter Summary ---
Author Organization [facility] Address [address] [place] [address] Care Team Providers Care Executive Search Consultant Name Role Phone Unknown, Provider MD Primary Care Provider Unava ilable Reason for Visit * Reason Onset Date Comments No Show 05/26/2023 Encounter Details Date Type Department Care Team ([facility] st Contact Info) Description 05/26/2023 Telephone [facility] Cancer Center Hematology & Oncology - [address] [phone] Sarahi Hyatt MD [address] [place] [address], [address] [place] [address] No Show Social History Tobacco Use Types Packs/Day Years [...] * Telephone Encounter - Elaina Roman - 05/26/2023 1128 EST Called and left message on patient's phone to call me to discuss weather or not she wants to reschedule this visit. I got a message from Dr. Hyatt that stated when patient was here to see Jina in our [facility] clinic that Dr. Hyatt sat in but didn't bill as Dr. Hyatt was going to see her after she had the CT done. Told this to the patient and told her that if she called after 4:30 to let me know what she wanted to do. documented in this encounter Plan of Treatment Not on file documented as of this encounter Visit Diagnoses Not on filedocumented in this encounter Care Teams Executive Search Consultant Relationship Specialty Start Date End Date Unknown, Provider, PCP - General 03/10/23 06/18/23 documented as of this encounter
--- OUTSIDE RECORDS SUMMARY | 2024-05-28 11:45 | XMS_ITS | Encounter Summary ---
Author Organization [facility] Address [address] [place] [address] Care Team Providers Care Science Instructor Name Role Phone Unknown, Provider Primary Care Provider Unava ilable Encounter Details Date Type Department Care Team (Late st Contact Info) Description 05/19/2023 Documentation Visit [facility] Cancer Center Hematology & Oncology - [facility] [address] [place] [address] Alf Gonzales RN Social History Tobacco Use [...] in this encounter Progress Notes * Alf Gonzales RN - 05/19/2023 1650 EDT Pt informed of CT results and Dr Hyatt appointment. documented in this encounter Plan of Treatment Not on file documented as of this encounter Visit Diagnoses Not on filedocumented in this encounter Care Teams Science Instructor Relationship Specialty Start Date End Date Unknown, Provider, PCP - General 03/10/23 06/18/23 documented as of this encounter
--- OUTSIDE RECORDS SUMMARY | 2024-05-28 11:45 | XMS_ITS | Encounter Summary ---
Author Organization [facility] Address [address] [place] [address] Care Team Providers Care Properties Supervisor Name Role Phone Unknown, Provider Primary Care Provider Unava ilable Reason for Visit * Reason Onset Date Comments Social Work 05/22/2023 SW referral Encounter Details Date Type Department Care Team (Late st Contact Info) Description 05/22/2023 Telephone [facility] Cancer Center Hematology & Oncology - [facility] [address] [place], [place] [phone] Kajal Fisher Social Work (SW referral) Social History Tobacco Use Types Packs/Day Years [...] * Telephone Encounter - Kajal Fisher - 05/22/2023 4328 EST Referral in workqueue for SW, however pt met with Dr. Muro in [facility] and she offered a referral to SW and pt declined (See MD's note on 04/17/23). Pt is scheduled to meet with Dr. Hyatt on 05/25/23 to discuss treatment options. I will hold off on making outreach to pt until she meets with Dr. Hyatt. documented in this encounter Plan of Treatment Not on file documented as of this encounter Visit Diagnoses Not on filedocumented in this encounter Care Teams Properties Supervisor Relationship Specialty Start Date End Date Unknown, Provider, PCP - General 03/10/23 06/18/23 documented as of this encounter
--- OUTSIDE RECORDS SUMMARY | 2024-05-28 11:45 | XMS_ITS | Encounter Summary ---
Author Organization [facility] Address [address] [place] [address] Care Team Providers Care Lead Data Architect Name Role Phone Unknown, Provider MD Primary Care Provider Unava ilable Reason for Visit * Reason Onset Date Comments Fatigue 03/13/2023 Advice Only 03/13/2023 Encounter Details Date Type Department Care Team (Late st Contact Info) Description 03/13/2023 Telephone [facility] Pulmonology & Critical Care - [facility] [address] [place] [address] William Tai MD Fatigue; Advice Only Social History Tobacco Use Types Packs/Day [...] encounter Miscellaneous Notes * Telephone Encounter - William Tai MD - 03/13/2023 1826 EDT Department of Pulmonary & Critical Care Medicine Pulmonary Clinic Phone Call Visit Date of Visit: 03/13/23 PCP: UNKNOWN,PROVIDER Reason for Today's Call: Feeling fatigued, awaiting callback from provider. Subjective Nakita Hancock is a 57 y.o. woman with a past medical history of COPD, anxiety, depression who called into the [facility] today with concern for still feeling fatigued/groggy after her bronchoscopy with EBUS-TBNA of RUL lung mass. She notes feeling tired and spaced out at work today. She notes she usually has plenty of energy but feels this is different from her baseline. Denies fever, c hills, or hemoptysis. She notes minor resolving sore throat. Feels that her breathing has been wellthe past few days though holding Spiriva given felt it made breathing worse. She is taking Accunebsas needed. Taking Augmentin. She notes calling into clinic with no reply from provider prompting call into clinic this evening. No significant wheezing, breathlessness. Speaking in full sentences. Reviewed post-operative responses to anesthesia and reviewed procedure note with patient including pending cytology and genomics testing. Assessment and Plan 57 y.o.female with PMH of COPD and noted RUL lung mass (malignant cells on RESHMA) who called in to the Pulmonary Clinic with concern of continued fatigue over the weekend and today. No hemoptysis. Improving cough/SOB, but holding spiriva. Taking Augmentin. Using AccuNebs. We discussed that some patient may have prolonged symptoms that should continue to improve with hydration, eating well, and ensuring sleeping well. Given holding her Spiriva, she may also be developing a COPD exacerbation, so we discussed watching symptoms and may need prednisone if not improving. She will continue to monitorand will discuss further with Dr. Colvin if needed. Plan: Problem List Items Addressed This Visit None Visit Diagnoses Other fatigue - Primary Recommendations: -If symptoms worsen, advised to be evaluated in the Emergency Department. Follow up: -Patient to schedule PRN. BRENNAN Mari MD PGY-6, Pager: [phone]. Pulmonary & Critical Care Medicine Fellow documented in this encounter Plan of Treatment Not on file documented as of this encounter Visit Diagnoses Diagnosis Other fatigue- Primary documented in this encounter Care Teams Lead Data Architect Relationship Specialty Start Date End Date Unknown, Provider, PCP - General 03/10/23 06/18/23 documented as of this encounter
--- OUTSIDE RECORDS SUMMARY | 2024-05-28 11:45 | XMS_ITS | Encounter Summary ---
Author Organization [facility] Address [address] [place] [address] Care Team Providers Care Auto Accessories Installer Name Role Phone Unknown, Provider MD Primary Care Provider Unava ilable Reason for Referral * Radiology Services (Routine/Next Available) - Receiving Office to Obtain Authorization Specialty Diagnoses / Procedures Ref[facility] Referred To Contact Radiology Diagnoses Adrenal nodule ([facility]) Procedures MR SUBSPECIALTY RADIOLOGY CONSULT BODY Tex Colvin MD Phone: tel: fax: [facility] Referral ID Status Reason Start Date Expiration Date Visits Requested Visits Authorized [id number] Receiving Office to Obtain Authorization 04/14/2023 1 1 Encounter Details Date Type Department Care Team (Late st Contact Info) Description 04/14/2023 Orders Only [facility] Cancer Center Hematology & Oncology - Main [place] [address] [place], [place] [phone] Alf Gonzales, RN Adrenal nodule ([facility]) (Primary Dx) Social History Tobacco Use Types [...] documented as of this encounter Results * MR SUBSPECIALTY RADIOLOGY CONSULT BODY (04/14/2023 12:20 EDT) Anatomical Region Laterality Modality Body Magnetic Resonan ce 04/14/2023 14:1 0 EDT Impressions 04/14/2023 14:10 EDT Mild nodularity of the inner limb of the left adrenal gland, stable since 2017. Consider follow-up with PET/CT given described uptake in the left adrenal gland. [id number] Narrative 04/14/2023 14:10 EDT MR SUBSPECIALTY RADIOLOGY CONSULT BODY ??04/14/2023 1:00 PM Signs and Symptoms/Comments: ;E27.8:Adrenal nodule (HCC-CMS) Technique: This is a secondary interpretation of MRI abdomen with and without IV contrast images obtained at [facility] on March 22, 2023, performed at the [...] with andwithout IV contrast images obtained at [facility] on March 22, 2023, performed at the [...] limb of the left adrenal gland, stable [id number]. Consider follow-up with PET/CT given described uptake in the leftadrenal gland. [id number] us Tex Colvin MD [facility] MRI ORDERABLES Fin al Result documented in this encounter Visit Diagnoses Diagnosis Adrenal nodule (HCC-CMS)- Primary Unspecified disorder of adrenal glands Adrenal nodule (HCC-CMS) Unspecified disorder of adrenal glands documented in this encounter Care Teams Auto Accessories Installer Relationship Specialty Start Date End Date Unknown, Provider, PCP - General 03/10/23 06/18/23 documented as of this encounter
--- OUTSIDE RECORDS SUMMARY | 2024-05-28 11:45 | XMS_ITS | Encounter Summary ---
Author Organization [facility] Address [address] [place] [address] Care Team Providers Care Digital Asset Manager Name Role Phone Unknown, Provider MD Primary Care Provider Unava ilable Reason for Visit * Reason Onset Date Comments Referral Request 05/24/2023 Encounter Details Date Type Department Care Team ([facility] st Contact Info) Description 05/24/2023 Telephone [facility] Cancer Center Hematology & Oncology - [address] [phone] Sarahi Hyatt MD [address] [place] [address], [address] [place] [address] Referral Request Social History Tobacco Use Types Packs/Day Years [...] * Telephone Encounter - Elaina Roman - 05/24/2023 1350 EST Called over to Dr. Luis's office and I need to fax over a cover sheet with the referral. I was told that Dr. Luis has a wait list for appointments but they do have another provider Dr. Yg Castle and he would be happy to see her. I will fax tomorrow when I'm in clinic and they willcall patient directly to see what she would like to do. documented in this encounter Plan of Treatment Not on file documented as of this encounter Visit Diagnoses Not on filedocumented in this encounter Care Teams Digital Asset Manager Relationship Specialty Start Date End Date Unknown, Provider, PCP - General 03/10/23 06/18/23 documented as of this encounter
--- OUTSIDE RECORDS SUMMARY | 2024-05-28 11:45 | XMS_ITS | Encounter Summary ---
Author Organization [facility] Address [address] [place] [address] Care Team Providers Care Forest Products Teacher Name Role Phone Unknown, Provider MD Primary Care Provider Unava ilable Reason for Referral * Radiology Services (Routine/Next Available) - Authorization Not Required Specialty Diagnoses / Procedures [facility] Referred To Contact Radiology Diagnoses Malignant neoplasm of hilus of lung, unspecified laterality (HCC-CMS) Procedures MR ABDOMEN W WO CONTRAST Tex Colvin MD Phone: tel: fax: [facility] Referral ID Status Reason Start Date Expiration Date Visits Requested Visits Authorized [id number] Authorization Not Required 03/15/2023 1 1 Encounter Details Date Type Department Care Team (Late st Contact Info) Description 03/15/2023 Orders Only [facility] Cancer Center Hematology & Oncology - [place] [address] [place], [place] [phone] Alf Gonzales, MELQUIADES Malignant neoplasm of hilus of lung, unspecified laterality (HCC-CMS) (Primary Dx) Social History Tobacco Use [...] WO CONTRAST Imaging Routine Malignant neoplasm of hilus of lung, unspecified laterality (HCC-CMS) Ordered: 03/15/2023 documented as of this encounter Visit Diagnoses Diagnosis Malignant neoplasm of hilus of lung, unspecified laterality (HCC-CMS)- Primary documented in this encounter Care Teams Forest Products Teacher Relationship Specialty Start Date End Date Unknown, Provider, PCP - General 03/10/23 06/18/23 documented as of this encounter
--- OUTSIDE RECORDS SUMMARY | 2024-05-28 11:45 | XMS_ITS | Encounter Summary ---
Author Organization [facility] Address [address] [place] [address] Care Team Providers Care Stem Lead Former Name Role Phone Unknown, Provider MD Primary Care Provider Unava ilable Reason for Visit * Reason Onset Date Comments Referral Request 05/24/2023 Encounter Details Date Type Department Care Team ([facility] st Contact Info) Description 05/24/2023 Telephone [facility] Cancer Center Hematology & Oncology - [address] [phone] Sarahi Hyatt MD [address] [place] [address], [address] [place] [address] Referral Request Social History Tobacco [...] Telephone Encounter - Elaina Roman - 05/24/2023 1245 EST Called over to Dr. Kajal Luis's office ( ) and left message for someone to call me in regards to a referral to Dr. Luis. documented in this encounter Plan of Treatment Not on file documented as of this encounter Visit Diagnoses Not on filedocumented in this encounter Care Teams Stem Lead Former Relationship Specialty Start Date End Date Unknown, Provider, PCP - General 03/10/23 06/18/23 documented as of this encounter
--- OUTSIDE RECORDS SUMMARY | 2024-05-28 11:45 | XMS_ITS | Encounter Summary ---
Author Organization [facility] Address [address] [place] [address] Care Team Providers Care Dcs Engineer Name Role Phone Unknown, Provider Primary Care Provider Unava ilable Encounter Details Date Type Department Care Team ([facility] st Contact Info) Description 03/10/2023 10:16 EDT - 03/10/2023 13:38 EDT Hospital Encounter [facility] OR [address] [place] [address] [id number] Tex Colvin MD [address] [place] [address], [address] [place] [address] Discharge Disposition: Home or Self Care Social [...] Sign Reading Time Taken Comments Blood Pressure 104/76 03/10/2023 1315 EDT Pulse - - Temperature 36.4 ??C (97.5 ??F) 03/10/2023 1315 EDT Respiratory Rate 11 03/10/2023 1315 EDT Oxygen Saturation 98% 03/10/2023 1315 EDT Inhaled Oxygen Concentration - - Weight [...] sent through Care Everywhere. * Bronchoscopy: Post-op ([place]) documented in this encounter Medications at Time [...] Means Destination Comment s Home or Self Jail documented in this encounter H&P Notes * [...] back ??? COPD (chronic obstructive pulmonary disease) ([facility]) Noted 02/24/23 per pulmonary note ??? Deviated [...] GENOMIC ANALYSIS Today 03/10/2023 12:01 EDT NON DIRECTOR OF WEB MARKETING/FNA CYTOLOGY Routine 03/10/2023 12:01 EDT [facility] [place] GENE PANEL TEST Today 03/10/2023 12:01 EDT BRONCHOSCOPY, EBUS LINEAR 03/10/2023 11:28 EDT Lung mass documented in this encounter Results * ENDOBRONCHIAL ULTRASOUND (EBUS) PROCEDURE (03/10/2023 12:36 EDT) Narrative [facility] - 03/10/2023 12:36 EDT Procedure Performed [...] 03/10/2023 12:36:13 PM By Tex Colvin MD Tex Colvin MD GI PROCEDURE ORDERABLE S Final Result [facility] * SURGICAL PATHOLOGY (03/10/2023 12:17 EDT) Ancillary Studies Addendum PD-L1 IMMUNOHISTOCHEMISTRY REPORT TISSUE SUBMITTED: Tissue submitted: Paraffin embedded tissue block labelled [id number] (A1) from [facility] as part of the Advanced Lung reflex [...] using the OptiView Detection System on the Aprimo BenchMark Ultra. The specimen submitted for testing [...] performance characteristics have been determined by [facility] and/or by the referring laboratory. The positive [...] PD-L1 Tumor Proportion Score (TPS): <1% 13:55 [facility] Addendum electronically signed by Tor Anders MD on 03/16/2023 at 1355 Note to Patient The following pathology results have been interpreted by your pathologist and may be available to you before your health provider has had the opportunity to review them. Please allow time for your provider to receive these results and explore management options, if applicable. 13:55 [facility] Final Diagnosis A. LUNG, RIGHT UPPER LOBE, MASS, EBUS-GUIDED CORE BIOPSY: - Adenocarcinoma, consistent with lung primary. See comment. 13:55 [facility] Diagnosis Comment PD-L1 immunohistochemistry staining and GenePanel Solid Tumor have been ordered on this case as part of our Reflex testing policy for advanced lung cancer and will be reported separately. Fruit Room Hand slides of this case were reviewed at the intradepartmental consultation conference. Immunoperoxidase stains were performed on this case to further characterize the lesion. ANTIBODY(CLONE)(BLOCK) :RESULT TTF-1 (8G7G3/1, [place]) (A1): Positive NOTE: One or more of [...] performance characteristics have been determined by [facility] and/or by the referring laboratory. The positive and negative controls worked appropriately. If immunoperoxidase staining has been performed on alcohol fixed cytology specimens, which has not been fully validated, the assays should be interpreted with caution and correlated with clinical data. This laboratory is certified under the Clinical Laboratory Improvement Amendments of 1988 (CLIA-88) as qualified to perform high complexity clinical laboratory testing. 13:55 [facility] Attestation There was significan t resident/fellow involvement in the diagnostic evaluation of this case. By the signature below, the attending physician certifies that they have personally conducted a gross and/or microscopic examination of the described specimens and rendered or confirmed the above diagnosis. 3 13:55 [facility] at 1530 Clinical History Lung mass 13:55 [facility] Gross Description A. Received in formalin labelled with proper patient identification (initials D, K) and lung, right upper lobe mass, core needle biopsy, for surgical pathology is an aggregate of brown soft tissue fragments (0.6 x 0.5 x 0.1 cm). Entirely submitted in A1. Cortney Hernández 03/11/2023 14:16 3 13:55 [facility] Resident/Fell ow: Nina Perkins DO 3 13:55 [facility] Performing Lab [facility] 3 13:55 [facility] Scanned Images 3 13:55 [facility] Tissue STRUCTURE OF UPPER LOBE OF RIGHT LUNG / Unknown 03/10/2023 12:17 EDT 03/10/2023 13:37 EDT us Tex Colvin MD PATHOLOGY ORDERABLES E dited Result - Final Performing Organization Address City/[facility]/ZIP Co de Phone Number [facility] [address] [place] [address] * [facility] [place] GENE PANEL TEST (03/10/2023 12:01 EDT) [place] Gene Panel Test Results See scanned report. 04/05/2023 16:58 EDT [facility] Fine Needle Aspirate 03/10/2023 12:01 EDT 03/22/2023 11:58 EDT Tex Colvin MD LAB MOLECULAR ORDERABL ES Final Result Performing Organization Address [facility] Co de Phone Number [facility] [address] [place] [address] * REQUEST FOR GENOMIC ANALYSIS (03/10/2023 12:01 EDT) Order Status Complete - See Scanned Report 04/05/2023 16:51 EDT [facility] Comment: This is an updated result. Previous result was Order Received by [employer] on 03/13/2023 at 1618 EDT This is an updated result. Previous result was Tissue Reviewed and Accepted, Analysis to Follow on 03/22/2023 at 1158 EDT Fine Needle Aspirate 03/10/2023 12:01 EDT 03/13/2023 16:16 EDT Tex Colvin MD LAB MOLECULAR ORDERABL ES Final Result Performing Organization Address [facility] Co de Phone Number [facility] [address] [place] [address] * NON DIRECTOR OF WEB MARKETING/FNA CYTOLOGY (03/10/2023 12:01 EDT) Note to Patient The following pathology results have been interpreted by your pathologist and may be available to you before your health provider has had the opportunity to review them. Please allow time for your provider to receive these results and explore management options, if applicable. 3 12:45 [facility] Final Diagnosis A. LUNG, RIGHT UPPER LOBE, 3 CM MASS, ENDOBRONCHIAL ULTRASOUND GUIDED FINE NEEDLE ASPIRATION: - Positive for malignancy, adenocarcinoma. See comment. 3 12:45 [facility] Diagnosis Comment The aspirate [...] cells. Please see also concurrent core biopsy ([id number]) for additional diagnostic information. PD-L1 immunohistochemistry staining and GenePanel Solid Tumor have been ordered on this case as part of our Reflex testing policy for advanced lung cancer. The patient materials will be assessed for tumor adequacy as part of this analysis and if tumor quantity is sufficient, testing will be performed and will be reported separately. 3 12:45 [facility] Attestation There was significan t resident/fellow involvement in the diagnostic evaluation of this case. By the signature below, the attending physician certifies that they have personally conducted a gross and/or microscopic examination of the described specimens and rendered or confirmed the above diagnosis. 3 12:45 [facility] at 1245 Rapid Diagnosis [...] Dr. Francisco Stein; 03/10/23; 1230 3 12:45 [facility] Clinical History Lung mass 3 12:45 [facility] Gross Description A. 8 fixed prepared slides and 1 tube of RPMI for cell block processing were received. 3 12:45 EDT [facility] Resident/Fell ow: Crystal Suarez MD 3 12:45 EDT [facility] Performing Lab [facility] 3 12:45 EDT [facility] Scanned Images 3 12:45 EDT [facility] Fine Needle Aspirate STRUCTURE OF UPPER LOBE OF RIGHT LUNG / Unknown 03/10/2023 12:01 EDT 03/10/2023 12:34 EDT us Tex Colvin MD PATHOLOGY ORDERABLES F inal Result [facility] [address] [place] [address] documented in this encounter Visit Diagnoses Diagnosis [...] 03/10/2023 documented in this encounter Care Teams Dcs Engineer Relationship Specialty Start Date End Date Unknown, Provider, PCP - General 03/10/23 06/18/23 documented as of this encounter
--- OUTSIDE RECORDS SUMMARY | 2024-05-28 11:45 | XMS_ITS | Encounter Summary ---
Author Organization [facility] Address [address] [place] [address] Care Team Providers Care Farm Hand Name Role Phone None, Provider Primary Care Provider Unavailabl e Reason for Visit * Reason Onset Date Comments Coordination Of Care 03/08/2023 Encounter Details Date Type Department Care Team ([facility] st Contact Info) Description 03/08/2023 Telephone [facility] Pulmonology & Critical Care - [address] [phone] Tex Colvin MD [address] [facility], [address] [place] [address] Coordination Of Care Social History Tobacco Use [...] encounter Miscellaneous Notes * Telephone Encounter - Tex Colvin MD - 03/08/2023 1736 EDT Called Ms. Hancock Feeling better, ready for procedure Request put in for Monday * Telephone Encounter - Audrey Mattson - 03/08/2023 1136 EDT Patient had an xray done today at [facility]. Stated they are holding the xray results until Monday and Dr. Colvin needs to call [phone] to get those results. Patient is waiting fora those results to have a surgery scheduled. Thank You documented in this encounter Plan of Treatment Not on file documented as of this encounter Visit Diagnoses Not on filedocumented in this encounter Care Teams Farm Hand Relationship Specialty Start Date End Date None, Provider PCP - General 02/08/23 03/09/23 documented as of this encounter
--- OUTSIDE RECORDS SUMMARY | 2024-05-28 11:45 | XMS_ITS | Encounter Summary ---
Author Organization [facility] Address [address] [place] [address] Care Team Providers Care Tip Cutter Name Role Phone Unknown, Provider MD Primary Care Provider Unava ilable Reason for Visit * Reason Comments Lung Cancer * Consult (Routine) - Authorization Not Required Specialty Diagnoses / Procedures [facility] Referred To Contact Radiation Oncology Tex Colvin MD Phone: tel: fax: Isa Muro MD Phone: tel: fax: Referral ID Status Reason Start Date Expiration Date Visits Requested Visits Authorized [id number] Authorization Not Required 1 1 Encounter Details Date Type Department Care Team (Late st Contact Info) Description 04/17/2023 14:00 EDT Initial consult [facility] Radiation Oncology - [address] [id number] Isa Muro MD [address] [place] [address], [address] [place] [phone] Primary cancer of right upper lobe of [...] 12/26/2022 14:52 EDT documented in this encounter Consult Notes * Isa Muro MD - 04/17/2023 1400 EDT DIVISION OF RADIATION ONCOLOGY Consult- 04/17/2023 Diagnosis: Cancer Staging Primary cancer of right upper lobe of lung (HCC-CMS) Staging form: Lung, AJCC 8th Edition - Clinical: cT4, cN2 - Unsigned Is unclear if the patient has metastatic disease or not. She has lung nodules in the left lung thatare of unclear etiology but I reviewed this on suspicion. Primary Care Provider: UNKNOWN,PROVIDER No address on file Referring Provider: Tex Colvin MD [address] [place] [address], [address] [place] [address] Impression: Patient with stage 3 versus IV lung cancer. Patient has many relatives who have been quite ill with radiation and chemotherapy. She is a single mother to her 14-year-old daughter and is very concerned about being sick with treatment and still being able to. Her daughter and continue to work full- time to support both of them. This is a struggle for her already. She also notes that she is someone who does not tolerate most medicines very well. She does not tolerate opioid pain medicines or nausea pills very well. She declines speaking with a social media coordinator to help with her social stressors. Plan: -We will plan on repeat CT of the chest to assess change in lung nodules on the contralateral lung this will help inform final recommendations for treatment. -We also recommended that she meet with Dr. Kajal Luis NP to discuss supportive care and integrative treatments that may help the patient tolerate treatment better. -Edmar Omalley Follow-up with the patient once her imaging is complete. HPI: Nakita Hancock is a 57 y.o. year old female who presented with a right upper lobe lung nodule notedon CT chest in September 2016. Per review of note from Dr. Tex Colvin, she was referred to [facility] for further evaluation but apparently was not seen. In December 2021 she presented again for chest pain and was noted to have enlargement of the lesion measuring 5.3 cm in maximal dimension and causing distal obstruction of the anterior segmental airway. She was concerned about stimulating cancer growth with a biopsy and did not seek additional care and worked on improving her health. She did have repeat imaging on November 25, 2022 which demonstrated ongoing growth of the mass. She has been recommended to have bronchoscopy PET and biopsy and met with Dr. Tex Colvin in December of this year to do that and has now been completed.. Work up included imaging which showed progressive right upper lobe mass measuring greater than 8 cm with mediastinal and hilar adenopathy noted on PET scan. Biopsy showed adenocarcinoma. She is referred here today to discuss treatment options with radiation. The patient is seen in lung [facility] with Dr. Hyatt. The patient has many questions about toxicity of chemotherapy which I defer to Dr. IVORY ONEAL and radiation. I described that radiation could be palliative with 1- 10 treatments, or more definitive with 30treatments. With more definitive treatment side effects would be worse and include fatigue and painwith swallowing which could affect nutrition. The patient is very thin and this could be problematic for her. PFT: Performed at [facility], December 2021 however with no raw data there is an interpretation of COPD. No family history on file. 04/17/2023 14:53 Pain Score (from Vitals) Initial score 3 Final score 3 Location 7 Past medical history, past surgical history, medications, allergies and social history were all reviewed. Past Medical History: Diagnosis Date ??? Anxiety 03/01/23 not on any meds, doesn't like they make her feel ??? Asthma 03/01/23 uses albuterol inhaler 2-3x/day, nebs daily ??? Back pain 03/01/23 herniated disc mid back ??? COPD (chronic obstructive pulmonary disease) ([facility]) Noted 02/24/23 per pulmonary note ??? [...] Laterality Date ??? COLONOSCOPY 2010 and endoscopy Current Outpatient Medications Medication ??? albuterol (ACCUNEB) 1.25 mg/3 mL nebulizer solution ??? ALBUTEROL INHL ??? amoxicillin-clavulanate (AUGMENTIN) 875-125 mg per tablet ??? ascorbic acid, vitamin C, (VITAMIN C) 500 mg tablet ??? Cholecalciferol, Vitamin D3, 10 mcg (400 unit) tablet ??? doxycycline (ADOXA) 100 mg tablet ??? ephedrine sulfate (BRONKAID MAX ORAL) ??? fluconazole (DIFLUCAN) 100 mg tablet ??? fluconazole (DIFLUCAN) 100 mg tablet ??? naproxen sodium (ALEVE ORAL) ??? tiotropium (SPIRIVA) 18 mcg inhalation capsule ??? ZINC ORAL No current facility-administered medications for this visit. Allergies Allergen Reactions ??? Other - See Comments All Narcotics Social History Socioeconomic History ??? Marital status: Spouse name: Not on file ??? Number of children: Not on file ??? Years of education: Not on file ??? Highest education level: Not on file Occupational History ??? Not on file Tobacco Use ??? Smoking status: Every Day Current packs/day: 1.00 Average packs/day: 1 pack/day for 26.0 years (26.0 ttl pk-yrs) Types: Cigarettes ??? Smokeless tobacco: Never Substance and Sexual Activity ??? Alcohol use: Yes Comment: occ ??? Drug use: Never ??? Sexual activity: Not on file Other Topics Concern ??? Not on file Social History Narrative ??? Not on file Social Determinants of Health Financial Resource Strain: Not on file Food Insecurity: Not on file Transportation Needs: Not on file Physical Activity: Not on file Stress: Not on file Social Connections: Not on file Housing Stability: Not on file Exam: Disclaimer: Performance status noted here due to ACR accreditation documentation requirements. Please do not interpret this assessment as reflective of my opinion for this patient's fitness for treatment or potential tolerance. ECOG performance Status: (1) Restricted in physically strenuous activity, ambulatory and able to dowork of light nature Exam was deferred. I spent a total of 60 minutes on the date of this encounter meeting with the patient and reviewing documentation/coordinating care as described in the above note. No procedures were performed at the time of the visit. Isa Muro MD Radiation Oncology Pager [phone] Office [phone] documented in this encounter Plan of Treatment Not on file documented as of this encounter Visit Diagnoses Diagnosis Primary cancer of right upper lobe of lung (HCC-CMS)- Primary documented in this encounter Care Teams Tip Cutter Relationship Specialty Start Date End Date Unknown, Provider, PCP - General 03/10/23 06/18/23 documented as of this encounter
--- OUTSIDE RECORDS SUMMARY | 2024-05-28 11:46 | XMS_ITS | Encounter Summary ---
Author Organization [facility] Address [address] [place] [address] Care Team Providers Care Magnetic Grinder Operator Name Role Phone None, Provider Primary Care Provider Unavailabl e Reason for Visit * Reason Onset Date Comments New/Evolving Symptoms 02/27/2023 Encounter Details Date Type Department Care Team ([facility] st Contact Info) Description 02/27/2023 Telephone [facility] Pulmonology & Critical Care - [address] [id number] Tex Colvin MD [address] [facility], [address] [place] [address] New/Evolving Symptoms Social History Tobacco Use Types Packs/Day Years Used Date Smoking Tobacco: Never Assessed Comments Unknown Sex and Gender Information Value [...] by mouth daily. 14 Tablet 1 02/27/2023 4 predniSONE (DELTASONE) 10 mg tablet Take 3 Tablets by mouth daily for 4 days, THEN 2 Tablets daily for 4 days, THEN 1 Tablet daily for 4 days. 24 Tablet 02/27/2023 3 documented in this encounter Miscellaneous Notes * Telephone Encounter - Tex Colvin MD - 02/27/2023 1846 EDT Called Ms. Hancock After pred and doxy, had partial improvement in cough/dyspnea but also thrush with persistent odynophagia. Poor appetite. Has been using clotrimazole troches since last week with very minor improvement. Has required fluconazole in the past Rec: 1) extend prednisone by 12 days; pause inhaled fluticasone 2) start fluconazole 100mg daily for the next 14 days (overlap with prednisone) May have to defer Monday's procedure if not feeling better. Scripts sent to [place] in [facility] documented in this encounter Plan of Treatment Not on file documented as of this encounter Visit Diagnoses Not on filedocumented in this encounter Care Teams Magnetic Grinder Operator Relationship Specialty Start Date End Date None, Provider PCP - General 02/08/23 03/09/23 documented as of this encounter
--- OUTSIDE RECORDS SUMMARY | 2024-05-28 11:46 | XMS_ITS | Encounter Summary ---
Author Organization [facility] Address [address] [place] [address] Care Team Providers Care Quality Tester Name Role Phone None, Provider Primary Care Provider Unavailabl e Reason for Visit * Reason Onset Date Comments Follow-up 02/24/2023 Encounter Details Date Type Department Care Team ([facility] st Contact Info) Description 02/24/2023 Telephone [facility] Pulmonology & Critical Care - [facility] [address] [place] [address] None, Provider Follow-up Social History Tobacco Use Types Packs/Day [...] encounter Miscellaneous Notes * Telephone Encounter - Negrito Shankar RT - 02/24/2023 0839 EDT R: AISSATOU already triaged yesterday. documented in this encounter Plan of Treatment Not on file documented as of this encounter Visit Diagnoses Not on filedocumented in this encounter Care Teams Quality Tester Relationship Specialty Start Date End Date None, Provider PCP - General 02/08/23 03/09/23 documented as of this encounter
--- OUTSIDE RECORDS SUMMARY | 2024-05-28 11:46 | XMS_ITS | Encounter Summary ---
Author Organization [facility] Address [address] [place] [address] Care Team Providers Care Honing Machine Set Up Operator Tool Name Role Phone None, Provider Primary Care Provider Unavailabl e Reason for Visit * Reason Onset Date Comments Follow-up 02/23/2023 Encounter Details Date Type Department Care Team ([facility] st Contact Info) Description 02/23/2023 Telephone [facility] Pulmonology & Critical Care - [facility] [address] [place] [address] You Coleman, RN Follow-up Social History Tobacco Use Types [...] Refills Last Filled Start Date End Date clotrimazole (MYCELEX) 10 mg john Take 1 Tablet by mouth 5 times daily for 7 days. 35 Tablet 02/23/2023 03/02/2023 documented in this encounter Miscellaneous Notes * Telephone Encounter - You ColemanMELQUIADES - 02/23/2023 1628 EDT Returned call to patient to discuss recommendations from Dr. Mariano. Advised that Da will be calling tomorrow to give further details and instructions for her procedure next week. * Telephone Encounter - You Coleman RN - 02/23/2023 1621 EDT Requested Prescriptions Signed Prescriptions Disp Refills ??? clotrimazole (MYCELEX) 10 mg john 35 Tablet 0 Sig: Take 1 Tablet by mouth 5 times daily for 7 days. Authorizing Provider: ZACH MARIANO Ordering User: [id number] - [facility] [address] [facility] [address] [place] [id number] * Telephone Encounter - You Coleman RN - 02/23/2023 1406 EDT S: Asthma symptoms, thrush, and procedure questions B: Vinicius lung mass patient. Referred from Dr. Beard at [facility]. Called Alf Gonzales RN today and left message. Message routed to tag writer to follow up with patient. Calling with complaints of worsening asthma symptoms and recurrent thrush infection. Also has EBUS and biopsy scheduled for 03/03/23 but concerned that she doesn't know the time yet. A: Asthma symptoms have been worse this summer due to higher humidity. Difficulty getting a good breath at times. Occasional wheeze. Not present at time of the call. Chest congestion and productive cough. Yellow-green sputum. Just finished course of Doxycycline which she does not feel helped much. States that she finished prednisone taper yesterday (according to prescribed taper it should have last until 02/25/23). Using albuterol rescue inhaler 3-4 times per day, up from 1-2 times daily at her best. Also dealing with worsening recurrent thrush infection. Has taken fluconazole in the past which helps but doesn't seem to completely eradicate it. R: With Dr. Colvin out until next week will route to Dr. Mariano to advise on treatment of asthma symptoms and thrush. Discussed rinsing mouth well when using Flovent. Doubtful that this is happening sufficiently. Will discuss upcoming procedure timing with Alf Gonzales RN and/or Da Garcia. For any Rx's: [facility] documented in this encounter Plan of Treatment Not on file documented as of this encounter Visit Diagnoses Not on filedocumented in this encounter Care Teams Honing Machine Set Up Operator Tool Relationship Specialty Start Date End Date None, Provider PCP - General 02/08/23 03/09/23 documented as of this encounter
--- OUTSIDE RECORDS SUMMARY | 2024-05-28 11:46 | XMS_ITS | Encounter Summary ---
Author Organization [facility] Address [address] [place] [address] Care Team Providers Care Forgesmith Name Role Phone Unavailable Primary Care Provider Unavailabl e Encounter Details Date Type Department Care Team (Late st Contact Info) Description 02/26/2008 Before PRISM Converted Visit (Maple) [facility] - Maple conversion [address] [place] [address] Leatha Qureshi ARNP [address] [place] [address] Social History Tobacco Use Types Packs/Day Years Used Date Smoking Tobacco: Never Assessed Comments Unknown Sex and Gender Information Value Date Recorded Sex Assigned at Not on file Legal Sex Female 18:41 EST Gender Identity Female 02/08/2023 13:30 EDT Sexual Orientation Not on file documented as of this encounter Plan of Treatment Not on file documented as of this encounter Procedures Procedure Name Priority Date/Time Associated Diagnosis Comments CYTOPATHOLOGY Routine 02/26/2008 0:00 EDT documented in this encounter Results * CYTOPATHOLOGY (02/26/2008 0:00 EDT) Pathology Report: CYTOPATHOLOGY REPORT ? Reports generated via electronic interface contain original data; ? however they are lacking the format of the original report. ? Caution should be taken when reading/interpreti ng unformatted reports. ? Name: ? BLANCO WHITT ? Accession #: ? [id number] ? : ? 1965 (Age: 42) ??F ?Collect Date: ? 02/26/2008 ? Location: ? [facility] ? Receive Date: ? 02/27/2008 ? Provider: ?LEATHA NICHOLAS KELLY ? Copy to: ? Specimen/Source: ?ThinPrep Pap Test, Cervix/Endocervix, processed on Cytyc ThinPrep Imaging System, with manual evaluation ? Last Menstrual Period: ? 2/24/08 ? Menstrual/Pregnanc y Status: ? 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 Treatment History: ? LEEP: 1999 ? SPECIMEN ADEQUACY ? Satisfactory for Evaluation ? - transformation zone component present ? GENERAL CATEGORIZATION ? Epithelial Cell Abnormality ? INTERPRETATION ? Squamous Cell Abnormality - Atypical squamous cells, undetermined ? significance (ASC-US). ? EDUCATIONAL NOTES/RECOMMENDATI ONS ? [facility] recommends following the 2006 Consensus Guidelines for the Management of Women with Abnormal Cervical Cancer Screening Tests (JLGTD, ? 2007;11(4):201-222 ). ??Consensus guidelines are available online at ? www.ASCCP.org. ? Document reviewed and electronically signed by: ? Venita C Alvarado MD ? Report Date: ??03/05/2008 15:23 ? End of Report ? LUAN VALENTIN 02/26/2008 02/27/2008 us Leatha NEGROP PATHOLOGY ORDERABLES Isabella l Result [facility] [address] [place] [address] documented in this encounter Visit Diagnoses Not on filedocumented in this encounter
--- OUTSIDE RECORDS SUMMARY | 2024-05-28 11:46 | XMS_ITS | Encounter Summary ---
Author Organization [facility] Address [address] [place] [address] Care Team Providers Care Vehicle Inspector Name Role Phone Sooc Qureshi Primary Care Provider +1 [phone] Encounter Details Date Type Department Care Team (Late st Contact Info) Description 04/07/2022 Documentation Visit [facility] Hematology & Oncology - [facility] [address] [place], [place] [id number] Alf Gonzales, RN Social History Tobacco Use Types Packs/Day Years Used Date Smoking Tobacco: Never Assessed Comments Unknown Sex and Gender Information Value Date Recorded Sex Assigned at Not on file Legal Sex Female 18:41 EST Gender Identity Female 02/08/2023 13:30 EDT Sexual Orientation Not on file documented as of this encounter Progress Notes * Alf Gonzales RN - 04/07/2022 1620 EDT Multiple messages left on vm with pt with no return calls. Dr Hammond's office notified that referral here cancelled. Stephany office reports pt to with [facility] documented in this encounter Plan of Treatment Not on file documented as of this encounter Visit Diagnoses Not on filedocumented in this encounter Care Teams Vehicle Inspector Relationship Specialty Start Date End Date Soco Qureshi ARNP [address] [place] [address] PCP - General 03/05/09 02/07/23 documented as of this encounter
--- OUTSIDE RECORDS SUMMARY | 2024-05-28 11:46 | XMS_ITS | Encounter Summary ---
Author Organization [facility] Address [address] [place] [address] Care Team Providers Care Machine Finisher Name Role Phone Unavailable Primary Care Provider Unavailabl e Encounter Details Date Type Department Care Team (Late st Contact Info) Description 08/01/2008 Before PRISM Converted Visit (Maple) [facility] - Maple conversion [address] [place] [address] Leatha Qureshi ARNP [address] [place] [address] Social History Tobacco Use Types Packs/Day Years [...] Priority Date/Time Associated Diagnosis Comments CYTOPATHOLOGY Routine 08/01/2008 0:00 EST documented in this encounter Results * CYTOPATHOLOGY (08/01/2008 0:00 EST) Pathology Report: CYTOPATHOLOGY REPORT ? Reports generated via electronic interface contain original data; ? however they are lacking the format of the original report. ? Caution should be taken when reading/interpreti ng unformatted reports. ? Name: ? BLANCO WHITT ? Accession #: ? [id number] ? : ? 1965 (Age: 42) ??F ?Collect Date: ? 08/01/2008 ? Location: ? [facility] ? Receive Date: ? 08/05/2008 ? Provider: ?LEATHA NICHOLAS NEGROP ? Copy to: ? Specimen/Source: ?Pap Test, Cervix/Endocervix, ThinPrep Imaging System ? with manual evaluation ? Last Menstrual Period: ? 2/20/08 ? Menstrual/Pregnanc y Status: ? Post ? Previous Gynecologic Pathology: ? ASC-US: previous, HPV - ? Other: ? HPVA - HPV testing requested if ASC-US on the current ThinPrep Pap test. ? SPECIMEN ADEQUACY ? Satisfactory for Evaluation ? - transformation zone component present ? GENERAL CATEGORIZATION ? Epithelial Cell Abnormality ? INTERPRETATION ? Squamous Cell Abnormality - Atypical squamous cells, cannot exclude ? high grade squamous ? intraepithelial lesion (ASC-H). ? Trichomonas vaginalis present. ? EDUCATIONAL NOTES/RECOMMENDATI ONS ? [facility] recommends following the 2006 Consensus Guidelines for the Management of Women with Abnormal Cervical Cancer Screening Tests (JLGTD, ? 2007;11(4):201-222 ). ??Consensus guidelines are available online at ? www.ASCCP.org. ? Document reviewed and electronically signed by: ? JOYCELYN MOUNT MD ? Report Date: ??08/07/2008 10:40 ? End of Report ? LUAN VALENTIN 08/01/2008 08/05/2008 us Leatha NEGROP PATHOLOGY ORDERABLES Isabella l Result [facility] [address] [place] [address] documented in this encounter Visit Diagnoses Not on filedocumented in this encounter
--- OUTSIDE RECORDS SUMMARY | 2024-05-28 11:46 | XMS_ITS | Encounter Summary ---
Author Organization [facility] Address [address] [place] [address] Care Team Providers Care Chemical Analytical Sampler Name Role Phone Leatha Qureshi Primary Care Provider [phone] [phone] Encounter Details Date Type Department Care Team (Late st Contact Info) Description 10/17/2011 Results Only [facility] Laboratory Services - [facility] ([facility]) [address] [place], [place] [id number] Leatha Qureshi ARNP [address] [place] [address] Social History Tobacco Use Types Packs/Day Years [...] Procedure Name Priority Date/Time Associated Diagnosis Comments PAP TEST- RESULT ONLY Routine 10/17/2011 0:00 EDT documented in this encounter Results * PAP TEST- RESULT ONLY (10/17/2011 0:00 EDT) Pathology Report: CYTOPATHOLOGY REPORT Reports generated via electronic interface contain original data; however they are lacking the format of the original report. Caution should be taken when reading/interpreti ng unformatted reports. Name: ? BLANCO HANCOCK ? Accession #: ? [id number] : ? 1965 (Age: 45) ??F ?Collect Date: ? 10/17/2011 Location: ? [facility] ? Receive Date: ? 10/20/2011 Provider: ?LEATHA KELLY Copy to: ? Specimen/Source: ?Pap Test, Cervix, ThinPrep Imaging System with manual evaluation Last Menstrual Period: ? SPECIMEN ADEQUACY ? Satisfactory for Evaluation - transformation zone component absent GENERAL CATEGORIZATION ? Negative for Intraepithelial Lesion or Malignancy ? Document reviewed and electronically signed by: ? Lisa Khan, [place](ASCP)(IAC) ? Report Date: ??10/25/2011 16:04 End of Report LUAN VALENTIN 10/17/2011 10/20/2011 Leatha KELLY PATHOLOGY ORDERABLES Isabella l Result [facility] [address] [place] [address] documented in this encounter Visit Diagnoses Not on filedocumented in this encounter Care Teams Chemical Analytical Sampler Relationship Specialty Start Date End Date Leatha Qureshi ARNP [address] [place] [address] PCP - General 03/05/09 02/07/23 documented as of this encounter
--- OUTSIDE RECORDS SUMMARY | 2024-05-28 11:46 | XMS_ITS | Encounter Summary ---
Author Organization [facility] Address [address] [place] [address] Care Team Providers Care Air Defence Officer Name Role Phone Soco Qureshi Primary Care Provider [phone] [phone] Reason for Visit * (Routine/Next Available) - Receiving Office to Obtain Authorization Specialty Diagnoses / Procedures Referred By Contac t Referred To Contact Procedures MR OUTSIDE IMAGES NEURO Unknown, Provider, MD Referral ID Status Reason Start Date Expiration Date Visits Requested Visits Authorized [id number] Receiving Office to Obtain Authorization 01/26/2022 1 1 Encounter Details Date Type Department Care Team (Latest Contact Info) Description 01/13/2022 - 01/13/2022 23:59 EDT Hospital Encounter [facility] Secondary Reads [place] Discharge Disposition: Home or Self Care Social History Tobacco Use Types Packs/Day Years Used Date Smoking Tobacco: Never Assessed Comments Unknown Sex and Gender Information Value Date Recorded Sex Assigned at Not on file Legal Sex Female 18:41 EST Gender Identity Female 02/08/2023 13:30 EDT Sexual Orientation Not on file documented as of this encounter Discharge Disposition Disposition Code Departure Means Destination Home or Self Care documented in this encounter Plan of Treatment Not on file documented as of this encounter Procedures Procedure Name Priority Date/Time Associated Diagnosis Comments MR OUTSIDE IMAGES NEURO Routine 01/26/2022 13:46 EDT documented in this encounter Results * MR OUTSIDE IMAGES NEURO (01/26/2022 13:46 EDT) Narrative 01/26/2022 13:46 EDT This is a non-reportable exam. us Provider Unknown MD CASTAÑEDA OTHER IMAGING ORDERABLES Final Result documented in this encounter Visit Diagnoses Not on filedocumented in this encounter Care Teams Air Defence Officer Relationship Specialty Start Date End Date Soco Qureshi ARNP [address] [place] [address] PCP - General 03/05/09 02/07/23 documented as of this encounter
--- OUTSIDE RECORDS SUMMARY | 2024-05-28 11:46 | XMS_ITS | Encounter Summary ---
Author Organization [facility] Address [address] [place] [address] Care Team Providers Care Supervisor Front Name Role Phone Soco Qureshi Primary Care Provider [phone] [phone] Reason for Visit * (Routine/Next Available) - Receiving Office to Obtain Authorization Specialty Diagnoses / Procedures Referred By Contac t Referred To Contact Procedures XR OUTSIDE IMAGES NEURO Unknown, Provider, MD Referral ID Status Reason Start Date Expiration Date Visits Requested Visits Authorized [id number] Receiving Office to Obtain Authorization 01/26/2022 1 1 Encounter Details Date Type Department Care Team (Latest Contact Info) Description 10/12/2021 - 10/12/2021 23:59 EDT Hospital Encounter [facility] Secondary Reads [place] Discharge Disposition: [...] Date/Time Associated Diagnosis Comments XR OUTSIDE IMAGES NEURO Routine 01/26/2022 13:42 EDT documented in this encounter Results * XR OUTSIDE IMAGES NEURO (01/26/2022 13:42 EDT) Narrative 01/26/2022 13:42 EDT This is a non-reportable exam. us Provider Unknown MD CASTAÑEDA OTHER IMAGING ORDERABLES Final Result documented in this encounter Visit Diagnoses Not on filedocumented in this encounter Care Teams Supervisor Front Relationship Specialty Start Date End Date Soco Qureshi ARNP [address] [place] [address] PCP - General 03/05/09 02/07/23 documented as of this encounter
--- OUTSIDE RECORDS SUMMARY | 2024-05-28 11:46 | XMS_ITS | Encounter Summary ---
Author Organization [facility] Address [address] [place] [address] Care Team Providers Care Utility Worker Film Processing Name Role Phone KieraSoco weldon Primary Care Provider [phone] [phone] Reason for Visit * (Routine/Next Available) - Receiving Office to Obtain Authorization Specialty Diagnoses / Procedures Referred By Contac t Referred To Contact Procedures CT OUTSIDE IMAGES CHEST Imaging, External Referral ID Status Reason Start Date Expiration Date Visits Requested Visits Authorized [id number] Receiving Office to Obtain Authorization 03/05/2022 1 1 Encounter Details Date Type Department Care Team (Latest Contact Info) Description 12/22/2021 Hospital Encounter [facility] Secondary Reads [place] Discharge Disposition: Home [...] Diagnosis Comments CT OUTSIDE IMAGES CHEST Routine 03/05/2022 10:05 EDT documented in this encounter Results * CT OUTSIDE IMAGES CHEST (03/05/2022 10:05 EDT) Narrative 03/05/2022 10:05 EDT This is a non-reportable exam. us External Imaging IMG OTHER IMAGING ORDERABLES Fi nal Result documented in this encounter Visit Diagnoses Not on filedocumented in this encounter Care Teams Utility Worker Film Processing Relationship Specialty Start Date End Date Soco Qureshi ARNP [address] [place] [address] PCP - General 03/05/09 02/07/23 documented as of this encounter
--- OUTSIDE RECORDS SUMMARY | 2024-05-28 11:46 | XMS_ITS | Encounter Summary ---
Author Organization [facility] Address [address] [place] [address] Care Team Providers Care Manager Transfusion Name Role Phone Unavailable Primary Care Provider Unavailabl e Encounter Details Date Type Department Care Team (Late st Contact Info) Description 03/03/2009 Orders Only [facility] Laboratory Services - [facility] ([facility]) [address] [place], [place] [phone] Jocelyn Caicedo MD [address] [place] [address] Social History Tobacco Use Types Packs/Day Years [...] Procedure Name Priority Date/Time Associated Diagnosis Comments SURGICAL PATHOLOGY Routine 03/03/2009 0:00 EDT documented in this encounter Results * SURGICAL PATHOLOGY (03/03/2009 0:00 EDT) Pathology Report: SURGICAL PATHOLOGY REPORT ? Reports generated via electronic interface contain original data; ? however they are lacking the format of the original report. ? Caution should be taken when reading/interpreti ng unformatted reports. ? Name: ? JOSE EDUARDO, BLANCO ? Accession #: ? [id number] ? : ? 1965 (Age: 43) ??F ? Collect Date: ? 03/03/2009 ? Location: ? [facility] ? Receive Date: ? 03/03/2009 ? Provider: JOCELYN CAICEDO MD ? Copy to: [facility] INTERNATIONAL EXCHANGE COORDINATOR ? Final Pathologic Diagnosis: ? Cervix, biopsy (LEEP): ? 1. ?Transformation zone with chronic, including follicular cervicitis ?? and reactive changes. ? 2. ? No dysplasia identified. ??See comment. ? Comment: ? Pap smear ([id number]) has been reviewed. ??The atypical high nuclear to ? cytoplasmic ratio cells identified on the Pap smear (ASCUS cannot rule out high grade) are not identified in the cervical biopsy specimen. ??In correlation with the negative findings on the cervical LEEP excision, the atypical cells on the ?? Pap smear may represent atypical metaplastic cells. ??However, continued close ?? clinical followup is advised. ??Three levels of each section of the biopsy were ?? examined. ??(Dr. Mcadams)/christiann ? Document reviewed and electronically signed by: ? JOYCELYN MCADAMS MD ? Report ??Date: 03/05/2009 16:20 ? By the signature above, the attending physician certifies that he/she has ? personally conducted a gross and/or microscopic examination of the described ? specimens and rendered or confirmed the above diagnosis. ? Specimen(s) Received: ? Cervical bx ? Clinical History: ? ASCUS R/O HSIL, on Depo Provera ? Gross Description: ? Received in formalin labelled Blanco Hancock and cervical bx is a 2.1 x 1.2 cm in diameter portion of cervix excised to a greatest depth of 1.0 cm. ?? The ectocervix is generally smooth and white while the endocervix is granular ?? and sánchez to sánchez-red. The ectocervix margin is blue-inked and the endocervix ? margin is black-inked. ??The specimen has an eccentric patent os. ??The specimen ?? is radially sectioned into 14 sections and submitted entirely as (A1)-(A7). ??(Kenny Rose)/mpl ? End of Report ? LUAN VALENTIN 03/03/2009 03/03/2009 17: 06 EDT us Jocelyn Caicedo MD PATHOLOGY ORDERABLES Final Resu lt [facility] [address] [place] [address] documented in this encounter Visit Diagnoses Not on filedocumented in this encounter
--- OUTSIDE RECORDS SUMMARY | 2024-05-28 11:46 | XMS_ITS | Encounter Summary ---
Author Organization [facility] Address [address] [place] [address] Care Team Providers Care Floor Winder Name Role Phone Soco Qureshi Primary Care Provider +1 -[phone] Reason for Visit * (Routine/Next Available) - Order Cancelled Specialty Diagnoses / Procedures Referred By Contac t Referred To Contact Procedures CT OUTSIDE IMAGES CHEST Unknown, Provider, MD Referral ID Status Reason Start Date Expiration Date V isits Requested Visits Authorized [id number] Order Cancelled 12/09/2022 1 1 Encounter Details Date Type Department Care Team (Latest Contact Info) Description 11/25/2022 - 11/25/2022 23:59 EDT Hospital Encounter [facility] Secondary Reads [place] Discharge [...] on filedocumented in this encounter Care Teams Floor Winder Relationship Specialty Start Date End Date Soco Qureshi ARNP [address] [place] [address] PCP - General 03/05/09 02/07/23 documented as of this encounter
--- OUTSIDE RECORDS SUMMARY | 2024-05-28 11:46 | XMS_ITS | Encounter Summary ---
Author Organization [facility] Address [address] [place] [address] Care Team Providers Care Surgical Sales Representative Name Role Phone Leatha Qureshi Primary Care Provider [phone] [phone] Encounter Details Date Type Department Care Team (Late st Contact Info) Description 08/17/2009 Orders Only [facility] Laboratory Services - [facility] ([facility]) [address] [place], [place] [phone] Leatha Qureshi ARNP [address] [place] [address] Social History Tobacco Use Types Packs/Day Years [...] Priority Date/Time Associated Diagnosis Comments CYTOPATHOLOGY Routine 08/17/2009 0:00 EST documented in this encounter Results * CYTOPATHOLOGY (08/17/2009 0:00 EST) Pathology Report: CYTOPATHOLOGY REPORT ? Reports generated via electronic interface contain original data; ? however they are lacking the format of the original report. ? Caution should be taken when reading/interpreti ng unformatted reports. ? Name: ? BLANCO WHITT ? Accession #: ? [id number] ? : ? 1965 (Age: 43) ??F ?Collect Date: ? 08/17/2009 ? Location: ? [facility] ? Receive Date: ? 08/19/2009 ? Provider: ?LEATHA KELLY ? Copy to: ? Specimen/Source: ?Pap Test, Cervix/Endocervix, ThinPrep Imaging System ? with manual evaluation ? Last Menstrual Period: ? 01/03/10 ? Hormonal/Contracep tive Status: ? Yes: De ? Previous Gynecologic Pathology: ? ASC-US ? HSIL: 08 ? Treatment History: ? Miscellaneous treatment: Leetz 08/09 for ASCUS HSIL pap ? Other: ? HPVA - HPV testing requested if ASC-US on the current ThinPrep Pap test. ? SPECIMEN ADEQUACY ? Satisfactory for Evaluation ? - transformation zone component present ? GENERAL CATEGORIZATION ? Negative for Intraepithelial Lesion or Malignancy ? Document reviewed and electronically signed by: ? Kajal V[place](ASCP) ? Report Date: ??08/20/2009 11:50 ? End of Report ? LUAN VALENTIN 08/17/2009 08/19/2009 us Leatha KELLY PATHOLOGY ORDERABLES Isabella tracey Result [facility] [address] [place] [address] documented in this encounter Visit Diagnoses Not on filedocumented in this encounter Care Teams Surgical Sales Representative Relationship Specialty Start Date End Date Leatha Qureshi ARNP [address] [place] [address] PCP - General 03/05/09 02/07/23 documented as of this encounter
--- OUTSIDE RECORDS SUMMARY | 2024-05-28 11:46 | XMS_ITS | Encounter Summary ---
Author Organization [facility] Address [address] [place] [address] Care Team Providers Care Recorder Helper Seismograph Name Role Phone Kiera, Soco LETICIA Primary Care Provider [phone] [phone] Reason for Visit * (Routine/Next Available) - Receiving Office to Obtain Authorization Specialty Diagnoses / Procedures Referred By Contac t Referred To Contact Procedures PET OUTSIDE IMAGES Imaging, External Referral ID Status Reason Start Date Expiration Date Visits Requested Visits Authorized [id number] Receiving Office to Obtain Authorization 12/21/2022 1 1 Encounter Details Date Type Department Care Team (Latest Contact Info) Description 01/31/2022 - 01/31/2022 23:59 EDT Hospital Encounter [facility] Radiology - Main [place] [address] [place] [address] Discharge Disposition: Home or Self Care Social [...] Procedure Name Priority Date/Time Associated Diagnosis Comments PET OUTSIDE IMAGES Routine 01/31/2022 8:13 EDT documented in this encounter Results * PET OUTSIDE IMAGES (01/31/2022 8:13 EDT) Narrative MANPREET - 12/21/2022 8:13 EDT This is a non-reportable exam. us External Imaging IMG OTHER IMAGING ORDERABLES Fi nal Result Performing Organization Address City/State/[facility] Co fl Phone Number [facility] documented in this encounter Visit Diagnoses Not on filedocumented in this encounter Care Teams Recorder Helper Seismograph Relationship Specialty Start Date End Date Soco Qureshi ARNP [address] [place] [address] PCP - General 03/05/09 02/07/23 documented as of this encounter
--- OUTSIDE RECORDS SUMMARY | 2024-05-28 11:46 | XMS_ITS | Encounter Summary ---
Author Organization [facility] Address [address] [place] [address] Care Team Providers Care Acquisitions Analyst Name Role Phone None, Provider Primary Care Provider Unavailabl e Unknown, Provider MD Primary Care Provider Unava ilable None, Provider Primary Care Provider Unavailabl e Reason for Visit * Reason Onset Date Comments Testing 02/13/2023 Encounter Details Date Type Department Care Team (Late st Contact Info) Description 02/13/2023 Telephone [facility] Pulmonology & Critical Care - [address] [address] Tex Colvin MD [address] [place] [address] Testing Social History Tobacco Use Types Packs/Day Years [...] Telephone Encounter - Tex Colvin MD - 02/13/2023 1747 EDT Calling Ms. 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 Discussed options including EUS, EBUS. Ultimately she would like to do EBUS under general anesthesia. She does not consent to having any lymph nodes biopsied so we will focus on the primary tumor. documented in this encounter Plan of Treatment Not on file documented as of this encounter Visit Diagnoses Not on filedocumented in this encounter Care Teams Acquisitions Analyst Relationship Specialty Start Date End Date None, Provider PCP - General 02/08/23 03/09/23 Unknown, Provider, PCP - General 03/10/23 06/18/23 None, Provider PCP - General 06/19/23 documented as of this encounter
--- OUTSIDE RECORDS SUMMARY | 2024-05-28 11:46 | XMS_ITS | Encounter Summary ---
Author Organization [facility] Address [address] [place] [address] Care Team Providers Care Negative Restorer Name Role Phone None, Provider Primary Care Provider Unavailabl e Encounter Details Date Type Department Care Team (Latest Contact Info) Description 03/01/2023 9:07 EDT - 03/01/2023 23:59 EDT Hospital Encounter [facility] Pre-Surgical Testing [address] [place] [address] Discharge Disposition: Home or Self Care Social [...] Sign Reading Time Taken Comments Blood Pressure - - Pulse - - Temperature - - Respiratory Rate - - Oxygen Saturation - - Inhaled Oxygen Concentration - - Weight 53.1 kg (117 lb) 03/01/2023 0842 EDT Height 167.6 cm (5' 6) 03/01/2023 0842 EDT Body Mass Index 18.88 03/01/2023 0842 EDT documented in this encounter Functional Status [...] this encounter Medications at Time of Discharge ALBUTEROL INHL Inhale as directed. naproxen sodium (ALEVE ORAL) Take by mouth. clotrimazole (MYCELEX) 10 mg john Take 1 Tablet by mouth 5 times daily for 7 days. 35 Tablet 02/23/2023 03/02/2023 doxycycline (ADOXA) 100 mg tablet Take 1 [...] or Self Care documented in this encounter OR Notes * Preprocedure Instructions - Sabine Garcia RN - 03/01/2023 1440 EDT Nakita Hancock has been instructed as follows regarding medication administration for the day of the scheduled procedure. Date of Surgery: 03/03/23 Instructions for Taking Medications Day of Surgery Medication Dose and frequency Last Dose Hold Day of Surgery Take Day of Surgery ALBUTEROL INHL Inhale as directed. X clotrimazole (MYCELEX) 10 mg john Take 1 Tablet by mouth 5 times daily for 7 days. X doxycycline (ADOXA) 100 mg tablet Take 1 Tablet by mouth 2 times daily. X fluconazole (DIFLUCAN) 100 mg tablet Take 1 Tablet by mouth daily. X naproxen sodium (ALEVE ORAL) Take by mouth. X predniSONE (DELTASONE) 10 mg tablet Take 3 Tablets by mouth daily for 4 days, THEN 2 Tablets daily for 4 days, THEN 1 Tablet daily for 4 days. na tiotropium (SPIRIVA) 18 mcg inhalation capsule Inhale 1 Capsule as directed daily. X Stop all vitamins and supplements 7 days prior to surgery. Nonsteroidal anti-inflammatories (NSAIDS; i.e. ibuprofen, naproxen, indomethacin, ketorolac, Motrin) stop 3 days prior to surgery. Acetaminophen (Tylenol) can be taken prior to surgery if needed. Preparing for surgery: o Fasting- Follow the eating and drinking instructions below unless otherwise instructed by your surgeon - STOP all solid FOOD and LIQUIDS Containing Fats, including Milk, at midnight the night before surgery - You May have FAT FREE CLEAR liquids until 2 hours before your scheduled time to arrive to the hospital on the day of surgery. Acceptable clear liquids include Water, apple juice, and sports drinks (Gatorade?? or Powerade?? avoid red and purple). - On the day of your procedure, no gum, mints, lozenges or hard candy. - Children under 1 year of age may have breast milk up to 4 hours and formula up to 6 hours before their procedure. - Pedialyte?? is also an acceptable clear liquid for children. o Safety - Infection prevention Shower with an ANTIBACTERIAL SOAP the night before surgery and the morning of surgery. If you were given scrub sponges, use those also, scrubbing well over the area indicated by your surgeon. Do not shave your surgical site for 3 days prior to surgery. Protect Surgical Site from injury such as cuts, bruising or hickey After your morning shower avoid any personal care products such as creams, lotion, powders, deodorant, makeup, hairspray, perfumes or colognes. - Ride home We require you have a responsible Adult to drive you home after surgery or to accompany you in getting home via Taxi or Bus Your Family Member/Ride Home should stay at the hospital during the procedure until you are discharged. If your ride can't stay in the hospital, they still need to come in to pick you up to assist with medication cotton picker operator from pharmacy, review of discharge instructions and surgical consult. We ask that your ride stay within 15 minutes of the hospital for cotton picker operator. - CPAP/BiPAP Bring your CPAP or BiPAP machine in with you on the day of your surgery. - Nail luxembourger and Jewelry Remove all finger nail luxembourger and makeup before surgery Remove all jewelry including rings and Body Piercings before coming in for Surgery. - Glasses and Contacts Wear glasses on the Day of surgery. For eye surgeries avoid contacts for 7 days prior to surgery, unless otherwise instructed by your surgeon. - Full beards Shaving is optional, certain aspects of the anesthetic management can be made easier without a fullbeard. - Smoking Stop smoking tobacco and marijuana prior to surgery as much as possible with a minimum of 24 hours prior to surgery. o Medications - Inhalers Bring your inhalers in with you on the day of your surgery. - Bowel cleansing Follow the instructions for bowel cleansing given to you by your surgeon. Once you start, drink lots of clear liquids, stopping them at the time your surgeon told you to stop. It would be best to stay at home while doing the bowel cleansing. o Legal Guardianship - BRING Proof of Guardianship on Day of Surgery. - Legal Guardian is to be available on the Day of Surgery by Telephone if not physically present onthe Day of Surgery. - Surgical and/or other consents will be signed by Legal Guardian prior to the Day of Surgery if possible. o Call your surgeon IF: - You become ill before your surgery. - You have any new skin problems near the area where your surgery will be, such as a rash, blister,or infection. - You have any questions. - Your surgeon may have given you other instructions to prepare for surgery. Please follow these and if you have questions call your surgeon's office. Day of surgery o Identification - Please bring a photo ID, insurance card and any other information needed for your surgery. o Arrival - General Arrival Time is 2 hours prior to your surgery time. o Medications - Take as directed above with a small sip of water on day of surgery. - Bring a list of medications you take on the day of surgery. - Leave medications at home. o Clothing - Wear casual, loose fitting and comfortable clothing. We recommend you wear/bring inexpensive (avoid silks, etc.) clothing on Day of Surgery. For arm and hand surgery wear a zip up or button up shirt with short sleeves. For eye surgery, do not wear a shirt that pulls over the head unless it has a wide neck opening. Bring a hat with a visor or a pair of sunglasses to wear home after surgery. o Medical Devices - Bring any medical devices that you would normally use during the course of your day. These items include, but are not limited to: insulin pumps, mobility aids, CPAP. o Valuables - Bring only money you may need for you hospital co-pay and to purchase any prescriptions on the way home. Let the person driving you home hold you're your money while you are in surgery. - Leave jewelry at home - Leave contact lenses at home. Wear your eye glasses and bring your eye glass case. - Leave valuable items at home. Ask a family member to bring them in after you have been admitted to the inpatient unit if possible. o Equipment - Remember to bring pillows for the car ride home to elevate your arm or leg (for arm/leg surgery).Bring Crutches if needed. - Use the Volumetric Hog Confinement System Manager given to you by your surgeon or nurse. Starting 2 weeks prior to your surgery use it 2 times a day, 10 times each use. Bring it with you on the day of your surgery. o Visitation - Per our Welcoming Policy ???Unit nursing staff may have to ask patients and families to limit numbers of family members at the bedside when it impacts the environment of care?? - Typically two visitors are allowed in the Preop and Recovery areas. o Bring plastic bags and paper towels in the car for the Trip Home. o Contact information - Patient/Family given Preop Contact Numbers appropriate to campus of surgery. For Day of Surgery: [facility] [place]: [phone]; [facility] [place]; [phone]. Prior to Day of Surgery call: [phone]. Pre-op toll Free Number . - More information can also be found on our website: [email or web address] documented in this encounter Plan of Treatment Not on file documented as of this encounter Visit Diagnoses Not on filedocumented in this encounter Discontinued Medications Medication Sig Discontinue Reason Start Date End Da te fluticasone propionate (FLOVENT DISKUS INHALATION) Inhale as directed. Therapy completed 03/01/2023 documented as of this encounter Care Teams Negative Restorer Relationship Specialty Start Date End Date None, Provider PCP - General 02/08/23 03/09/23 documented as of this encounter
--- OUTSIDE RECORDS SUMMARY | 2024-05-28 11:46 | XMS_ITS | Encounter Summary ---
Author Organization [facility] Address [address] [place] [address] Care Team Providers Care Sales And Marketing Administrator Name Role Phone Leatha Qureshi Primary Care Provider [phone] [phone] Encounter Details Date Type Department Care Team (Late st Contact Info) Description 12/27/2010 Results Only [facility] Laboratory Services - [facility] [place] [place] [address], [place] [id number] Leatha Qureshi ARNP [address] [place] [address] Social History Tobacco Use Types Packs/Day Years [...] Diagnosis Comments PAP TEST- RESULT ONLY Routine 12/27/2010 0:00 EDT documented in this encounter Results * PAP TEST- RESULT ONLY (12/27/2010 0:00 EDT) Pathology Report: CYTOPATHOLOGY REPORT ? Reports generated via electronic interface contain original data; ? however they are lacking the format of the original report. ? Caution should be taken when reading/interpreti ng unformatted reports. ? Name: ? BLANCO WHITT ? Accession #: ? [id number] ? : ? 1965 (Age: 45) ??F ?Collect Date: ? 12/27/2010 ? Location: ? [facility] ? Receive Date: ? 12/28/2010 ? Provider: ?LEATHA KELLY ? Copy to: ? Specimen/Source: ?Pap Test, Cervix/Endocervix, ThinPrep Imaging System ? with manual evaluation ? Last Menstrual Period: ? 07/10/10 ? Hormonal/Contracep tive Status: ? Depo-Provera ? Previous Gynecologic Pathology: ? ASC-US: 2007 ? HPV: + 2007 ? Treatment History: ? LEEP: 1999 & 2009 ? SPECIMEN ADEQUACY ? Satisfactory for Evaluation ? - transformation zone component present ? GENERAL CATEGORIZATION ? Negative for Intraepithelial Lesion or Malignancy ? Document reviewed and electronically signed by: ? Venita Gerald, CT(ASCP) ? Report Date: ??01/03/2011 13:18 ? End of Report ? [facility] 12/27/2010 12/28/2010 Leatha KELLY PATHOLOGY ORDERABLES Isabella webb Result [facility] [address] [place] [address] documented in this encounter Visit Diagnoses Not on filedocumented in this encounter Care Teams Sales And Marketing Administrator Relationship Specialty Start Date End Date Leatha Qureshi ARNP [address] [place] [id number] PCP - General 03/05/09 02/07/23 documented as of this encounter
--- OUTSIDE RECORDS SUMMARY | 2024-05-28 11:46 | XMS_ITS | Encounter Summary ---
Author Organization [facility] Address [address] [place] [address] Care Team Providers Care Market Development Analyst Name Role Phone Leatha Qureshi Primary Care Provider [phone] [phone] Encounter Details Date Type Department Care Team (Late st Contact Info) Description 06/25/2010 Results Only [facility] Laboratory Services - [facility] ([facility]) [address], [place] [id number] Leatha Qureshi ARNP [address] [place] [address] Social History Tobacco Use Types Packs/Day Years [...] Priority Date/Time Associated Diagnosis Comments CYTOPATHOLOGY Routine 06/25/2010 0:00 EST documented in this encounter Results * CYTOPATHOLOGY (06/25/2010 0:00 EST) Pathology Report: CYTOPATHOLOGY REPORT ? Reports generated via electronic interface contain original data; ? however they are lacking the format of the original report. ? Caution should be taken when reading/interpreti ng unformatted reports. ? Name: ? BLANCO WHITT ? Accession #: ? [id number] ? : ? 1965 (Age: 44) ??F ?Collect Date: ? 06/25/2010 ? Location: ? [facility] ? Receive Date: ? 06/28/2010 ? Provider: ?LEATHA KELLY ? Copy to: ? Specimen/Source: ?Pap Test, Cervix/Endocervix, ThinPrep Imaging System ? with manual evaluation ? Last Menstrual Period: ? 07/31/10 ? Hormonal/Contracep tive Status: ? Depo-Provera ? Previous Gynecologic Pathology: ? HPV: + 2007 ? Treatment History: ? LEEP: '99 and '09 ? SPECIMEN ADEQUACY ? Satisfactory for Evaluation ? - transformation zone component present ? GENERAL CATEGORIZATION ? Negative for Intraepithelial Lesion or Malignancy ? Document reviewed and electronically signed by: ? Lynan Miguel, CT(ASCP) ? Report Date: ??07/01/2010 13:12 ? End of Report ? [facility] 06/25/2010 06/28/2010 us Leatha Kiera RUBBER OFF PATHOLOGY ORDERABLES Isabella l Result [facility] [address] [place] [address] documented in this encounter Visit Diagnoses Not on filedocumented in this encounter Care Teams Market Development Analyst Relationship Specialty Start Date End Date Leatha Qureshi ARNP [address] [place] [address] PCP - General 03/05/09 02/07/23 documented as of this encounter
--- OUTSIDE RECORDS SUMMARY | 2024-05-28 11:46 | XMS_ITS | Encounter Summary ---
Author Organization [facility] Address [address] [place] [address] Care Team Providers Care Park Maintenance Technician Name Role Phone Leatha Qureshi Primary Care Provider [phone] [phone] Encounter Details Date Type Department Care Team (Late st Contact Info) Description 09/29/2009 Results Only [facility] Laboratory Services - [facility] ([facility] [place] [address] [place] [address] Tonio Bravo MD [address] [place] [phone] Social History Tobacco Use Types Packs/Day Years [...] Date/Time Associated Diagnosis Comments SURGICAL PATHOLOGY Routine 09/29/2009 0:00 EDT documented in this encounter Results * SURGICAL PATHOLOGY (09/29/2009 0:00 EDT) Pathology Report: SURGICAL PATHOLOGY REPORT ? Reports generated via electronic interface contain original data; ? however they are lacking the format of the original report. ? Caution should be taken when reading/interpreti ng unformatted reports. ? Name: ? SANTI, BLANCO ? Accession #: ? [id number] ? : ? 1965 (Age: 43) ??F ? Collect Date: ? 09/29/2009 ? Location: ? [facility] ? Receive Date: ? 09/30/2009 ? Provider: TONIO BRAVO MD ? Copy to: LEATHA NICHOLAS BRAKE OPERATOR HEAVY DUTY ? Final Pathologic Diagnosis: ? A. ?Duodenum, 2nd portion, biopsy: ? 1. ?Small intestinal mucosa with no specific pathologic features. ? B. ?Stomach, antrum, biopsy: ? 1. ?Antral mucosa with no specific pathologic features. ? 2. ? No Helicobacter pylori-like organisms identified on routine H&E stain. ?? C. ?Gastroesophageal junction, biopsy: ? 1. ?Squamous mucosa with mild reactive changes. ? D. ?Colon, sigmoid, polyp, biopsy: ? 1. ?Colonic mucosa with no specific pathologic features. ??See comment. ? Comment: ? Deeper levels have been examined on (D). ??(Dr. Oh)/kmm ? Document reviewed and electronically signed by: ? Negrito Dominguez MD ? Report ??Date: 10/07/2009 11:36 ? By the signature above, the attending physician certifies that he/she has ? personally conducted a gross and/or microscopic examination of the described ? specimens and rendered or confirmed the above diagnosis. ? Specimen(s) Received: ? A. ?2nd portion duodenum ? B. ? Antrum ? C. ? GE junction ? D. ? Distal sigmoid polyp ? Clinical History: ? Abd pain ? Gross Description: ? Received in [facility]'s fixative labelled [place], [place] and 2nd portion duodenum is a sánchez-pink 0.7 x 0.2 x 0.2 cm soft tissue fragment. ??The specimen ?? is entirely submitted as (A). ? Received in [facility]'s fixative labelled [place], [place] and antrum is a ? sánchez-pink 0.2 x 0.2 x 0.2 cm soft tissue fragment. ??The specimen is entirely ? submitted as (B). ? [facility] fixative labelled [place], [place] and GE junction is a sánchez-pink 0.4 x 0.2 x 0.2 cm soft tissue fragment. ??The specimen is entirely ?? submitted as (C). ? Received in [employer]'s fixative labelled [place], [place] and distal sigmoid ?? polyp is a sánchez-pink 0.2 x 0.2 x 0.2 cm soft tissue fragment. ??The specimen is ?? entirely submitted as (D). ??(M. Olsen)/mms ? End of Report ? [facility] 09/29/2009 09/30/2009 16: 31 EDT us Tonio Bravo MD PATHOLOGY ORDERABLES Final Result [facility] [address] [place] [address] documented in this encounter Visit Diagnoses Not on filedocumented in this encounter Care Teams Park Maintenance Technician Relationship Specialty Start Date End Date Nicholas, Leatha, BRAKE OPERATOR HEAVY DUTY [address] [place] [address] PCP - General 03/05/09 02/07/23 documented as of this encounter
--- OUTSIDE RECORDS SUMMARY | 2024-05-28 11:46 | XMS_ITS | Encounter Summary ---
Author Organization [facility] Address [address] [place] [address] Care Team Providers Care Industrial Conveyor Belt Repairer Name Role Phone Soco Qureshi RN OSTOMY Primary Care Provider [phone] [phone] None, Provider Primary Care Provider Unavailabl e Unknown, Provider MD Primary Care Provider Unava ilable None, Provider Primary Care Provider Unavailabl e Encounter Details Date Type Department Care Team (Late st Contact Info) Description 01/11/2022 Lab Requisition [facility] Pathology & Laboratory Medicine - [address] [id number] Outr Resulting Lab, Provider Social History Tobacco [...] Procedure Name Priority Date/Time Associated Diagnosis Comments LEGIONELLA ANTIGEN DETECTION, URINE Routine 01/10/2022 14:20 EDT FUNGUS CULTURE/SMEAR Routine 01/10/2022 14:20 EDT documented in this encounter Results * LEGIONELLA ANTIGEN DETECTION, URINE (01/10/2022 14:20 EDT) Legionella Antigen Detection Negative Negative 01/11/2022 18:17 EDT [facility] Urine 01/10/2022 14:2 0 EDT 01/11/2022 16:49 EDT us Provider Outr Resulting Lab MICROBIOLOGY - GENER AL ORDERABLES Final Result Performing Organization Address City/[facility]/ZIP Co de Phone Number [facility] [address] [place] [address] * FUNGUS CULTURE/SMEAR (01/10/2022 14:20 EDT) Organism ID One [place] Only Mold 02/08/2022 9:49 EDT [facility] Comment:Sterile mold (no olesya gnostic reproductive structures present), likely an environmental contaminant. Sputum 01/10/2022 14:2 0 EDT 01/11/2022 16:49 EDT us Provider Outr Resulting Lab MICROBIOLOGY - GENER AL ORDERABLES Final Result Performing Organization Address City/[facility] Co de Phone Number [facility] [address] [place] [address] documented in this encounter Visit Diagnoses Not on filedocumented in this encounter Care Teams Industrial Conveyor Belt Repairer Relationship Specialty Start Date End Date Soco Qureshi ARNP [address] [place] [id number] PCP - General 03/05/09 02/07/23 None, Provider PCP - General 02/08/23 03/09/23 Unknown, Provider, PCP - General 03/10/23 06/18/23 None, Provider PCP - General 06/19/23 documented as of this encounter
--- OUTSIDE RECORDS SUMMARY | 2024-05-28 11:46 | XMS_ITS | Encounter Summary ---
Author Organization [facility] Address [address] [place] [address] Care Team Providers Care Home Health Clinical Supervisor Name Role Phone Soco Qureshi Primary Care Provider [phone] [phone] Reason for Visit * (Routine/Next Available) - Order Cancelled Specialty Diagnoses / Procedures Referred By Contac t Referred To Contact Procedures CT OUTSIDE IMAGES CHEST Imaging, External Referral ID Status Reason Start Date Expiration Date V isits Requested Visits Authorized [id number] Order Cancelled 12/14/2022 1 1 Encounter Details Date Type Department Care Team (Latest Contact Info) Description 11/25/2022 0:05 EDT - 11/25/2022 23:59 EDT Hospital Encounter [facility] Secondary Reads [place] Discharge Disposition: Home [...] filedocumented in this encounter Care Teams Home Health Clinical Supervisor Relationship Specialty Start Date End Date Soco Qureshi ARNP [address] [place] [address] PCP - General 03/05/09 02/07/23 documented as of this encounter
--- OUTSIDE RECORDS SUMMARY | 2024-05-28 11:46 | XMS_ITS | Encounter Summary ---
Author Organization [facility] Address [address] [place] [address] Care Team Providers Care Patient Day Coordinator Name Role Phone None, Provider Primary Care Provider Unavailabl e Encounter Details Date Type Department Care Team ([facility] st Contact Info) Description 02/13/2023 Prep for Procedure [facility] Pulmonology & Critical Care - [address] [address] Tex Colvin MD [address] [place] [address], [address] [place] [address] Lung mass (Primary Dx) Social [...] Refills Last Filled Start Date End Date doxycycline (ADOXA) 100 mg tablet Take 1 Tablet by mouth 2 times daily. 20 Tablet 02/13/2023 4 predniSONE (DELTASONE) 10 mg tablet Take 4 Tablets by mouth daily for 3 days, THEN 3 Tablets daily for 3 days, THEN 2 Tablets daily for 3 days, THEN 1 Tablet daily for 3 days. 30 Tablet 02/13/2023 3 documented in this encounter Plan of Treatment Not on file documented as of this encounter Visit Diagnoses Diagnosis Lung mass- Primary Swelling, mass, or lump in chest documented in this encounter Care Teams Patient Day Coordinator Relationship Specialty Start Date End Date None, Provider PCP - General 02/08/23 03/09/23 documented as of this encounter
--- OUTSIDE RECORDS SUMMARY | 2024-05-28 11:46 | XMS_ITS | Encounter Summary ---
Author Organization [facility] Address [address] [place] [address] Care Team Providers Care Header Operator Name Role Phone Soco Qureshi Primary Care Provider [phone] None, Provider Primary Care Provider Unavailabl e Unknown, Provider MD Primary Care Provider Unava ilable None, Provider Primary Care Provider Unavailabl e Encounter Details Date Type Department Care Team (Late st Contact Info) Description 12/11/2022 Lab Requisition [facility] Pathology & Laboratory Medicine - [address] [id number] Outr Resulting Lab, Provider Social History Tobacco [...] Name Priority Date/Time Associated Diagnosis Comments LYME AB Routine 12/10/2022 12:04 EDT documented in this encounter Results * LYME AB (12/10/2022 12:04 EDT) Lyme Ab Negative Negative 12/12/2022 10:47 EDT [facility] Blood VENOUS BLOOD / Unknown 12/10/2022 12:04 EDT 12/11/2022 17:24 EDT us Provider Outr Resulting Lab IMMUNOLOGY AND SEROL OGY ORDERABLES Final Result [facility] [address] [place] [address] documented in this encounter Visit Diagnoses Not on filedocumented in this encounter Care Teams Header Operator Relationship Specialty Start Date End Date Soco Qureshi ARNP [address] [place] [address] PCP - General 03/05/09 02/07/23 None, Provider PCP - General 02/08/23 03/09/23 Unknown, Provider, PCP - General 03/10/23 06/18/23 None, Provider PCP - General 06/19/23 documented as of this encounter
--- OUTSIDE RECORDS SUMMARY | 2024-05-28 11:46 | XMS_ITS | Encounter Summary ---
Author Organization [facility] Address [address] [place] [address] Care Team Providers Care Taxonomy Teacher Name Role Phone Leatha Qureshi Primary Care Provider [phone] Encounter Details Date Type Department Care Team (Late st Contact Info) Description 07/02/2007 Results Only [facility] [address] [place] [address] Leatha Qureshi ARNP [address] [place] [address] Social History Tobacco Use Types Packs/Day Years [...] Procedure Name Priority Date/Time Associated Diagnosis Comments HPV DETECTION, HIGH RISK TYPES Routine 07/02/2007 17:56 EST CYTOPATHOLOGY Routine 07/02/2007 0:00 EST documented in this encounter Results * HUMAN PAPILLOMA VIRUS DNA TEST (07/02/2007 17:56 EST) Specimen Description Cervix, ThinPrep vial [facility] Result Positive for one or more of HPV types 16,18,31,33,35 ,39,45,51,52,5 6,58,59, or 68. These high/intermedi ate risk HPV types are associated with dysplasia and some cervical cancers. [facility] Report Status Final [id number] [facility] 07/02/2007 17:5 6 EST 07/11/2007 17:56 EST Leatha KELLY MICROBIOLOGY - GENERAL OR DERABLES Final Result [facility] [address] [place] [address] * CYTOPATHOLOGY (07/02/2007 0:00 EST) Pathology Report: CYTOPATHOLOGY REPORT Reports generated via electronic interface contain original data; however they are lacking the format of the original report. Caution should be taken when reading/interpreti ng unformatted reports. Name: ? BLANCO WHITT ? Accession #: ? [id number] : ? 1965 (Age: 41) ??F ?Collect Date: ? 07/02/2007 Location: ? [facility] ? Receive Date: ? 07/04/2007 Provider: ?LEATHA KELLY Copy to: ? Specimen/Source: ?ThinPrep Pap Test, Cervix/Endocervix, processed on [employer] ThinPrep Imaging System, with manual evaluation Last Menstrual Period: ? 06/16/07 Other: ? HPVA - HPV testing requested if ASC-US on the current ThinPrep Pap test. ? SPECIMEN ADEQUACY ? Satisfactory for Evaluation - transformation zone component present GENERAL CATEGORIZATION ? Epithelial Cell Abnormality INTERPRETATION ? Squamous Cell Abnormality - Atypical squamous cells, undetermined significance (ASC-US). EDUCATIONAL NOTES/RECOMMENDATI ONS ? FA recommends following the 2006 Consensus Guidelines for the Management of Women with Abnormal Cervical Cancer Screening Tests (JLGTD, 2007;11(4):201-222 ). ??Consensus guidelines are available online at www.ASCCP.org. ? Document reviewed and electronically signed by: ? DENISE ADAMSON MD [facility] ? Report Date: ??07/11/2007 12:35 End of Report [facility] 07/02/2007 07/04/2007 us Leatha KELLY PATHOLOGY ORDERABLES Isabella webb Result Performing Organization Address City/State/[facility] Co de Phone Number [facility] [address] [place] [address] documented in this encounter Visit Diagnoses Not on filedocumented in this encounter Care Teams Taxonomy Teacher Relationship Specialty Start Date End Date Leatha Qureshi ARNP [address] [place] [address] PCP - General 03/05/09 02/07/23 documented as of this encounter
--- OUTSIDE RECORDS SUMMARY | 2024-05-28 11:46 | XMS_ITS | Encounter Summary ---
Author Organization [facility] Address [address] [place] [address] Care Team Providers Care Mail Handler Sorter Name Role Phone Soco Qureshi Primary Care Provider [phone] [phone] None, Provider Primary Care Provider Unavailabl e Unknown, Provider MD Primary Care Provider Unava ilable None, Provider Primary Care Provider Unavailabl e Encounter Details Date Type Department Care Team (Late st Contact Info) Description 01/13/2022 Lab Requisition [facility] Pathology & Laboratory Medicine - [address] [address] Outr Resulting Lab, Provider Social History Tobacco [...] Procedure Name Priority Date/Time Associated Diagnosis Comments QUANTIFERON MITOGEN (PERFORMABLE) Today 01/12/2022 16:15 EDT QUANTIFERON TB2 (PERFORMABLE) Today 01/12/2022 16:15 EDT QUANTIFERON TB1 (PERFORMABLE) Today 01/12/2022 16:15 EDT QUANTIFERON NIL (PERFORMABLE) Today 01/12/2022 16:15 EDT QUANTIFERON INTERPRETATION (PERFORMABLE) Today 01/12/2022 16:15 EDT QUANTIFERON TB GOLD PLUS Routine 01/12/2022 16:15 EDT documented in this encounter Results * QUANTIFERON INTERPRETATION (PERFORMABLE) (01/12/2022 16:15 EDT) Quantiferon Interpretation Negative Negative 01/14/2022 12:45 EDT [facility] Comment:No interferon-gamma response to M. tuberculosis antigens was detected. ??Infection with M. tuberculosis is unlikely. A single negative result does not exclude infection with M. tuberculosis. ??In patients at high risk for M. tuberculosis infection, a second test should be considered. TB1 Ag minus Nil 0.04 IU/ml 01/15/20 12:45 EDT [facility] TB2 Ag minus Nil 0.02 IU/mL 01/15/20 12:45 EDT [facility] Blood VENOUS BLOOD / Unknown 01/12/2022 16:15 EDT 01/14/2022 11:59 EDT Narrative [facility] - 01/14/2022 12:45 EDT Results were obtained with the [employer] QuantiFERON-TB Gold Plus CLIA. New platform in use 03/24/2021 us Provider Outr Resulting Lab IMMUNOLOGY AND SEROL OGY ORDERABLES Final Result Performing Organization Address [facility] de Phone Number [facility] [address] [place] [id number] * QUANTIFERON MITOGEN (PERFORMABLE) (01/12/2022 16:15 EDT) Blood VENOUS BLOOD / Unknown 01/12/2022 16:15 EDT 01/13/2022 18:05 EDT us Provider Outr Resulting Lab IMMUNOLOGY AND SEROL OGY ORDERABLES Final Result Performing Organization Address [facility]/ZIP Co de Phone Number [facility] [address] [place] [address] * QUANTIFERON TB2 (PERFORMABLE) (01/12/2022 16:15 EDT) Blood VENOUS BLOOD / Unknown 01/12/2022 16:15 EDT 01/13/2022 18:05 EDT us Provider Outr Resulting Lab IMMUNOLOGY AND SEROL OGY ORDERABLES Final Result Performing Organization Address [facility] Co de Phone Number [facility] [address] [place] [address] * QUANTIFERON TB1 (PERFORMABLE) (01/12/2022 16:15 EDT) Blood VENOUS BLOOD / Unknown 01/12/2022 16:15 EDT 01/13/2022 18:05 EDT us Provider Outr Resulting Lab IMMUNOLOGY AND SEROL OGY ORDERABLES Final Result Performing Organization Address [facility] Co de Phone Number [facility] [address] [place] [address] * QUANTIFERON NIL (PERFORMABLE) (01/12/2022 16:15 EDT) Blood VENOUS BLOOD / Unknown 01/12/2022 16:15 EDT 01/13/2022 18:05 EDT us Provider Outr Resulting Lab IMMUNOLOGY AND SEROL OGY ORDERABLES Final Result Performing Organization Address [facility] Co de Phone Number [facility] [address] [place] [phone] documented in this encounter Visit Diagnoses Not on filedocumented in this encounter Care Teams Mail Handler Sorter Relationship Specialty Start Date End Date Soco Qureshi ARNP [address] [place] [address] PCP - General 03/05/09 02/07/23 None, Provider PCP - General 02/08/23 03/09/23 Unknown, Provider, PCP - General 03/10/23 06/18/23 None, Provider PCP - General 06/19/23 documented as of this encounter
--- OUTSIDE RECORDS SUMMARY | 2024-05-28 11:46 | XMS_ITS | Encounter Summary ---
Author Organization [facility] Address [address] [place] [address] Care Team Providers Care Sports Activities Foul Judge Name Role Phone Soco Qureshi Primary Care Provider [phone] Reason for Referral * Radiology Services (Routine/Next Available) - Authorization Not Required Specialty Diagnoses / Procedures [facility]erred To Contact Nuclear Medicine Diagnoses Abnormal chest CT Mediastinal lymphadenopathy Procedures PET CT EYE TO THIGH Tex Colvin MD Phone: tel: fax: [facility] Referral ID Status Reason Start Date Expiration Date Visits Requested Visits Authorized [id number] Authorization Not Required 12/26/2022 1 1 Reason for Visit * Reason Comments New Patient Visit Encounter Details Date Type Department Care Team (Late st Contact Info) Description 12/26/2022 14:30 EDT Office Visit [facility] Pulmonology & Critical Care - [address] [phone] Tex Colvin MD [address] [place] [address], [address] [place] [address] (Primary Dx); Mediastinal lymphadenopathy Social History Tobacco Use Types Packs/Day Years Used Date Smoking Tobacco: Never Assessed Comments Unknown Sex and Gender Information Value Date Recorded Sex Assigned at Not on file Legal Sex Female 18:41 EST Gender Identity Female 02/08/2023 13:30 EDT Sexual Orientation Not on file documented as of this encounter Last Filed Vital Signs Vital Sign Reading Time Taken Comments Blood Pressure 120/67 12/26/2022 1442 EDT Pulse 93 12/26/2022 1442 EDT Temperature 36.9 ??C (98.4 ??F) 12/26/2022 1442 EDT Respiratory Rate 16 12/26/2022 1442 EDT Oxygen Saturation 96% 12/26/2022 1442 EDT Inhaled Oxygen Concentration - - Weight - - Height - - Body Mass Index - - documented in this encounter Functional Status * [...] 12/26/2022 14:52 EDT documented in this encounter Patient Instructions * Patient Instructions* Tex Colvin MD - 12/26/2022 14:30 EDT 1) start doing tiotropium (Spiriva) 1 capsule inhaled once per day 2) keep doing albuterol nebs every 4-6 hours 3) we will coordinate a PET CT documented in this encounter Ordered Prescriptions Prescription Sig Dispense Quantity Refills Last Filled Start Date End Date tiotropium (SPIRIVA) 18 mcg inhalation capsule Inhale 1 Capsule as directed daily. 30 Capsule 11 12/26/2022 4 documented in this encounter Progress Notes * Tex Colvin MD - 12/26/2022 1430 EDT - [facility] New patient evaluation PCP: Soco Qureshi Chief Complaint Patient presents with ??? New Patient Visit HISTORY OF PRESENT ILLNESS: Ms. Nakita Hancock is a 57 year old woman with active smoking history referred for evaluation of a lung mass. Looking through available records, appears to have had a right upper lobe lung nodule on a CT chest done at [facility] on October 12, 2016. The report for this study isnt currently available but there appears to be an approximately 1cm solid nodule in the anterior segment of the right upper lobe. A follow-up chest x-ray was done in January with the report noting stability ofthe finding. It appears that she was referred to [facility] but appears that she wasn't seen. After noting chest pain, she presented again to [facility] December [address] angiogram done showing notable enlargement with the lesion measuring 5.3x4.3cm and causing distal obstruction of the anterior segmental airway. For staging evaluation, an MRI brain was done on 01/13/2022 at [place] that appears to have been normal. A PET CT was done at [facility] on 01/31/2022 demonstrating significant avidity of the right upper lobe mass without regional metastasis. She met with Dr. Hanna in Thoracic Oncology at [facility] in January 2022 and was tentatively scheduled for EBUS bronchoscopy shortly thereafter. Ultimately she reports that she felt rushed and was uncomfortable with the procedure so did not have this done. She reports concerns about stimulating cancer growth with biopsy and she has spent the last year working on improving her willie and diet as a means to keep the lesion under control. A repeat CT done at [facility] on November 25, 2022 demonstrates ongoing growth of the mass to 8.5cm with more proximal occlusion of the right upper lobe, narrowing of the right middle lobe bronchus and increased prominence of a precarinal lymph node. She has been followed by Dr. Beard at [facility] who has recommended bronchoscopic biopsy. She presents today to discuss evaluation with EBUS. Today, she is reporting that she has had ongoing difficulty with her breathing. She finds some relief with albuterol but has a frequent cough and sensation of sputum being stuck in her chest. She hasnot had hemoptysis. She has been experiencing issues with thrush with failure of two courses of nystatin and fluconazole (although fluconazole may have been associated with improvement in nasal drainage). She is wondering if she has issues with fungal colonization or infection related to possible exposures that occurred when there was construction on pipes at a neighbor's residence. She notes a substantial amount of psychosocial stress. The house she is renting for her and her 14 year old daughter is being sold and there are significant challenges finding affordable housing in the area. 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 She does not have any anginal chest pain or neurologic symptoms. No history of ACS or stroke. SMOKING HISTORY has no history on file for tobacco use. IMAGING FINDINGS I have independently reviewed the images from the CT chest as noted above PAST MEDICAL HISTORY PAST SURGICAL HISTORY No past medical history on file. No past surgical history on file. CURRENT MEDICATIONS: ALLERGIES: Current Outpatient Medications on File Prior to Visit Medication Sig Dispense Refill ??? ALBUTEROL INHL Inhale as directed. ??? fluticasone propionate (FLOVENT DISKUS INHALATION) Inhale as directed. ??? naproxen sodium (ALEVE ORAL) Take by mouth. No current facility-administered medications on file prior to visit. has no allergies on file. FAMILY HISTORY SOCIAL HISTORY family history is not on file. Social History Socioeconomic History ??? Marital status: Spouse name: Not on file ??? Number of children: Not on file ??? Years of education: Not on file ??? Highest education level: Not on file Occupational History ??? Not on file Tobacco Use ??? Smoking status: Not on file ??? Smokeless tobacco: Not on file Substance and Sexual Activity ??? Alcohol use: Not on file ??? Drug use: Not on file ??? Sexual activity: Not on file Other Topics Concern ??? Not on file Social History Narrative ??? Not on file Social Determinants of Health Financial Resource Strain: Not on file Food Insecurity: Not on file Transportation Needs: Not on file Physical Activity: Not on file Stress: Not on file Social Connections: Not on file Housing Stability: Not on file 14 point ROS questionnaire negative except for: As above PHYSICAL EXAM: BP 120/67 Pulse 93 Temp 36.9 ??C (98.4 ??F) (Skin) Resp 16 SpO2 96% In general she is breathing comfortably at rest without overt dyspnea. 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 Neck is supple. Trach is midline. Diminished breath sounds on the right. Heart rate is regular. Abdomen is nondistended. There is nocyanosis or edema. PULMONARY FUNCTION TESTS: Pulmonary function tests were deferred IMPRESSION 1. Lung mass right upper lobe. Appearance and progression most in keeping with lung cancer. The sputum she is experiencing may be due to airway involvement/obstruction. Available evidence would suggest at least T4N0M0 disease (IIIA) although suspect T4N2M0 (IIIB) based on growth of anterior station7 LN). A biopsy would be needed for confirmation and testing. She notes significant trepidation to have chemotherapy and radiotherapy given her experiences with family members but might be open to immunotherapy or targeted therapy. She voices concerns about biopsy causing tumor spread and is very much in favor of limiting diagnostic procedures. Given the risk for metastatic disease now, we discussed repeating a PET CT to help guide our biopsy approach and ensure we are targeting the lowest riskarea. She may be amenable to EBUS bronchoscopy if needed. 2. Suspected COPD/asthma. Noting issues with flovent and thrush. Open to trial of spiria prior to potential procedure. RECOMMENDATIONS 1. PET CT to be arranged at [facility] 2. Pending above, discuss biopsy options 3. Advise reducing cigarette smoking Counseled on smoking cessation Yes Thank you for letting me participate in the care of Nakita Hancock. Please call me at [phone] if any further questions arise. Tex Colvin MD Pulmonary and Critical Care Medicine Other Orders Placed This Visit Procedures ??? PET CT EYE TO THIGH documented in this encounter Plan of Treatment Not on file documented as of this encounter Results * PET CT EYE TO THIGH (02/08/2023 16:06 EDT) Anatomical Region Laterality Modality Body Positron Emissio n Tomography (PET) 02/09/2023 10:1 8 EDT Impressions 02/09/2023 10:18 EDT 1. ??The large primary mass in the apical segment of the right upper lobe has been increasing in size going back to December 2021, including since the most recent CT chest in November 2022, measurements as above. 2. ??Since the prior PET in January 2022, there is evidence of progression of lymphangitic spread of tumor within the right upper lobe and new FDG avid right hilar and mediastinal lymph nodes. Also more apparent than on the prior PET is a focus of FDG-avid nodular thickening in the left adrenal gland highly concerning for metastasis. No evidence of abdominopelvic jewels disease. I have personally reviewed the images and the above interpretation and agree with the findings. [id number] Narrative 02/09/2023 10:[address] EYE TO THIGH 02/08/2023 2:15 PM Signs and Symptoms: ??suspected lung cancer; evaluate extent of disease to guide goals of care and biopsy approach; Metastatic disease evaluation; suspected lung cancer; evaluate extent of disease to guide goals of care and biopsy approach;R93.89:Abnormal chest CT;R59.0:Mediastinal lymphadenopathy Comparison: CT chest (outside) 11/25/2022, PET/CT (outside) 01/31/2022, CT chest (outside) 12/22/2021 and 10/12/2016 Technique: Approximately 90 minutes following the IV injection of 9.8 mCi of [id number], PET/CT imaging was obtained from the skull base to upper thighs. The blood glucose level prior to injection was 100 mg/dl. The injection site was the left antecubital fossa. Oral contrast was administered. Findings: HEAD/NECK: Pertinent findings: No abnormal uptake. No enlarged lymph nodes. Incidental findings: No significant finding. CHEST: Pertinent findings: Markedly increased uptake associated with the large mass in the apical segment of the right upper lobe (max SUV 9.4) which has been present on prior exams going back to December 2021 and has increased slightly in size since November 2022 (currently 8.5 by 5.7 cm, previously 7.9 x 5.8 cm AP by TV in November 2022). This mass is in contiguity with an FDG-avid subpleural lymph node in the anterior segment of the right upper lobe which has increased in size since the prior PET in January 2022, in the same interval also demonstrating increased thickening of linear tissue between the lymph node and the primary mass, increased interlobular septal thickening, and nodular pleural thickening along the costal pleural surface of the apical segment of the right upper lobe, indicative of progressive lymphangitic involvement of disease (fused axial series 202 image 229). There are multiple small satellite nodules surrounding the dominant mass. An additional nodule in the anterior segment of the right upper lobe which was seen in 2017 has largely involuted, and is now a cluster of small nodules without increased uptake, compatible with benignity (axial series 202 image 218). Slightly increased uptake within multiple nonenlarged right hilar and mediastinal lymph nodes, new since the prior PET (example right hilar node fused axial series 202 image 255 max SUV 2.6 and right upper paratracheal node same series image 195 Max SUV 2.6). Mild radiotracer activity in the left hilum (calculated SUV max of 2.26). Incidental findings: There is mild aortic and coronary calcification. ABDOMEN/PELVIS: Pertinent findings: There is somewhat nodular thickening of the left adrenal gland with a small focus of increased uptake which is more apparent than on the prior PET (max SUV 2.7 fused axial series 202 image 403). No enlarged lymph nodes. Incidental findings: Atherosclerotic calcification of the abdominal aorta and iliac arteries. MUSCULOSKELETAL: Pertinent findings: No abnormal uptake. No suspicious osseous lesion. Incidental findings: No significant finding. Procedure Note Neeta Segovia MD - 02/09/[address] EYE TO THIGH 02/08/2023 2:15 PM Signs and Symptoms: suspected lung cancer; evaluate extent of disease toguide goals of care and biopsy approach; Metastatic disease evaluation;suspected lung cancer; evaluate extent of disease to guide goals of careand biopsy approach;R93.89:Abnormal chest CT;R59.0:Mediastinallymphadenopathy Comparison: CT chest (outside) 11/25/2022, PET/CT (outside) 01/31/2022, CTchest (outside) 12/22/2021 and 10/12/2016 Technique: Approximately 90 minutes following the IV injection of 9.8 mCi [id number], PET/CT imaging was obtained from the skull base toupper thighs. The blood glucose level prior to injection was 100 mg/dl.The injection site was the left antecubital fossa. Oral contrast wasadministered. Findings: HEAD/NECK: Pertinent findings: No abnormal uptake. No enlarged lymph nodes. Incidental findings: No significant finding. CHEST: Pertinent findings: Markedly increased uptake associated with the largemass in the apical segment of the right upper lobe (max SUV 9.4) which hasbeen present on prior exams going back to December 2021 and has increasedslightly in size since November 2022 (currently 8.5 by 5.7 cm, previously 7.9 x5.8 cm AP by TV in November 2022). This mass is in contiguity with an FDG-avidsubpleural lymph node in the anterior segment of the right upper lobewhich has increased in size since the prior PET in January 2022, in the sameinterval also demonstrating increased thickening of linear tissue betweenthe lymph node and the primary mass, increased interlobular septalthickening, and nodular pleural thickening along the costal pleuralsurface of the apical segment of the right upper lobe, indicative ofprogressive lymphangitic involvement of disease (fused axial series 202image 229). There are multiple small satellite nodules surrounding thedominant mass. An additional nodule in the anterior segment of the right upper lobe whichwas seen in 2017 has largely involuted, and is now a cluster of smallnodules without increased uptake, compatible with benignity (axial image 218). Slightly increased uptake within multiple nonenlarged right hilar andmediastinal lymph nodes, new since the prior PET (example right hilar nodefused axial series 202 image 255 max SUV 2.6 and right upper paratrachealnode same series image 195 Max SUV 2.6). Mild radiotracer activity in theleft hilum (calculated SUV max of 2.26). Incidental findings: There is mild aortic and coronary calcification. ABDOMEN/PELVIS: Pertinent findings: There is somewhat nodular thickening of the leftadrenal gland with a small focus of increased uptake which is moreapparent than on the prior PET (max SUV 2.7 fused axial series 202 ). No enlarged lymph nodes. Incidental findings: Atherosclerotic calcification of the abdominal aortaand iliac arteries. MUSCULOSKELETAL: Pertinent findings: No abnormal uptake. No suspicious osseous lesion. Incidental findings: No significant finding. IMPRESSION 1. The large primary mass in the apical segment of the right upper lobehas been increasing in size going back to December 2021, including since themost recent CT chest in November 2022, measurements as above. 2. Since the prior PET in January 2022, there is evidence of progression oflymphangitic spread of tumor within the right upper lobe and new FDG avidright hilar and mediastinal lymph nodes. Also more apparent than on theprior PET is a focus of FDG-avid nodular thickening in the left adrenalgland highly concerning for metastasis. No evidence of abdominopelvicnodal disease. I have personally reviewed the images and the above interpretation andagree with the findings. [id number] us Tex Colvin MD IM NM ORDERABLES Isabella l Result documented in this encounter Visit Diagnoses Diagnosis Abnormal chest CT- Primary Nonspecific (abnormal) findings on radiological and other examination of other intrathoracic organs Mediastinal lymphadenopathy Enlargement of lymph nodes Abnormal chest CT Nonspecific (abnormal) findings on radiological and other examination of other intrathoracic organs Mediastinal lymphadenopathy Enlargement of lymph nodes documented in this encounter Historical Medications * This list may reflect changes made after this encounter. naproxen sodium (ALEVE ORAL) Take by mouth. ALBUTEROL INHL Inhale as directed. fluticasone propionate (FLOVENT DISKUS INHALATION) Inhale as directed. 03/01/2023 added in this encounter Care Teams Sports Activities Foul Judge Relationship Specialty Start Date End Date Soco Qureshi ARNP [address] [place] [address] PCP - General 03/05/09 02/07/23 documented as of this encounter
--- OUTSIDE RECORDS SUMMARY | 2024-05-28 11:46 | XMS_ITS | Encounter Summary ---
Author Organization [facility] Address [address] [place] [address] Care Team Providers Care Clinical Cytogeneticist Scientist Name Role Phone None, Provider Primary Care Provider Unavailabl e Unknown, Provider MD Primary Care Provider Unava ilable None, Provider Primary Care Provider Unavailabl e Encounter Details Date Type Department Care Team (Late st Contact Info) Description 02/28/[address] [facility] Pulmonology & Critical Care - [address] [phone] Tex Colvin MD [address] [facility], [address] [place] [address] Social History Tobacco Use Types [...] encounter Miscellaneous Notes * Telephone Encounter - Ugo Thompson - 03/02/2023 1434 EDT LVM for patient with date/time and asked to return call to confirm. * Telephone Encounter - Ugo Thompson - 03/01/2023 1643 EDT LVM with new start time of 12:30 and new arrival of 10:30. Asked her to call and confirm. * Telephone Encounter - Ugo Thompson - 02/28/2023 1651 EDT Called patient to discuss instructions and time of bronchoscopy 03/03. She stated that 7:30am start time with 5:30 am arrival would not be possible for her. She asked for later in the morning or a different day. I related the instructions below and advised I would look into alternate time for her procedure. IMPORTANT PROCEDURE PROTOCOLS - It is important that you have NOTHING TO EAT AFTER MIDNIGHT the night before the procedure. On the day of your procedure, you should have only water or other clear liquids until 4 hours before the scheduled time of your procedure. Clear liquids include water, clear fruit juice, carbonated beverages, and black or sweetened coffee and tea (No Milk). You should take your usual medicines by mouth with a small amount of water. - You will NEED TO BRING A HIGH SCHOOL BAND DIRECTOR. Please make sure you have someone accompany [...] Coumadin, Warfarin, etc.) please speak with your ethnology professor about this. documented in this encounter Plan of Treatment Not on file documented as of this encounter Visit Diagnoses Not on filedocumented in this encounter Care Teams Clinical Cytogeneticist Scientist Relationship Specialty Start Date End Date None, Provider PCP - General 02/08/23 03/09/23 Unknown, Provider, MD PCP - General 03/10/23 06/18/23 None, Provider PCP - General 06/19/23 documented as of this encounter
--- OUTSIDE RECORDS SUMMARY | 2024-05-28 11:46 | XMS_ITS | Encounter Summary ---
Author Organization [facility] Address [address] [place] [address] Care Team Providers Care Taker Away Name Role Phone Soco Qureshi LETICIA Primary Care Provider [phone] [phone] None, Provider Primary Care Provider Unavailabl e Unknown, Provider MD Primary Care Provider Unava ilable None, Provider Primary Care Provider Unavailabl e Encounter Details Date Type Department Care Team (Late st Contact Info) Description 01/13/2022 Lab Requisition [facility] Pathology & Laboratory Medicine - [address] [address] Katelin Beard MD [address] [facility], [address] [place] [address] Other nonspecific abnormal finding of lung field Social History Tobacco Use Types Packs/Day Years [...] Procedure Name Priority Date/Time Associated Diagnosis Comments LEUKEMIA/LYMPHOMA PANEL BY FLOW CYTOMETRY Today 01/12/2022 16:15 EDT HOLD SST Today 01/12/2022 16:15 EDT HOLD SST Today 01/12/2022 16:15 EDT CCP ANTIBODIES Today 01/12/2022 16:15 EDT DOUBLE STRANDED DNA ANTIBODY, IGG Today 01/12/2022 16:15 EDT RHEUMATOID FACTOR Today 01/12/2022 16: 15 EDT ANTI NUCLEAR AB (OCTAVIA), IFA Today 01/12/2022 16:15 EDT documented in this encounter Results * HOLD SST (01/12/2022 16:15 EDT) Hold Hold 01/13/2022 19:01 EDT [facility] Blood VENOUS BLOOD / Unknown 01/12/2022 16:15 EDT 01/13/2022 17:56 EDT Katelin Beard MD LAB INFO SERVICE AND SUPPORT & PHONE RESULT Final Result Performing Organization Address [facility]/ZIP Co de Phone Number [facility] [address] [place] [address] * HOLD SST (01/12/2022 16:15 EDT) Hold Hold 01/13/2022 19:01 EDT [facility] Blood VENOUS BLOOD / Unknown 01/12/2022 16:15 EDT 01/13/2022 17:56 EDT Katelin Beard MD LAB INFO SERVICE AND SUPPORT & PHONE RESULT Final Result [facility] [address] [place] [address] * LEUKEMIA/LYMPHOMA PANEL BY FLOW CYTOMETRY (01/12/2022 16:15 EDT) Final Immunophenotypic Interpretation Peripheral blood, flow cytometric analysis: - No immunophenotypic evidence of a clonal cell population. See comment. 14:35 EDT [facility] Comment The results of flow cytometry show no immunophenotypic evidence of involvement by a clonal lymphoproliferative or myeloproliferative disorder. Notably, hematologic conditions such as MDS, MPN, plasma cell dyscrasia, and large cell lymphomas, to include Hodgkin lymphoma, are difficult to definitively diagnose or exclude solely by flow cytometric analysis. Correlation of these findings with morphologic and clinical data is essential. 2 14:35 [facility] Attestation There was significant resident/fellow involvement in the diagnostic evaluation of this case. By the signature below, the attending physician certifies that they have personally conducted a gross and/or microscopic examination of the described specimens and rendered or confirmed the above diagnosis. 2 14:35 [facility] at 1435 Clinical History 56 yo female with other nonspecific abnormal finding of lung field. 2 14:35 [facility] Description The specimen consists of peripheral blood that has been prepared using ammonium chloride lysing agent. Gating is performed using CD45 fluorescence and side scatter. Cellular viability (assessed by 7-AAD exclusion) is excellent (99%) among cells with CD45 and side scatter properties typical of lymphocytes and good (92%) among CD45+ events overall. Scatter plots incorporating all of the markers have been interpreted and evaluated for the presence or absence of abnormal cell populations. Only pertinent abnormal findings are included. If not otherwise addressed all other markers were normal/negative. A majority of the lymphoid cells are T-lymphocytes (CD3+CD5+) with CD4+ and CD8+ subsets represented. The remaining lymphocytes are B-lymphocytes (CD19+CD20+) and NK-cells (CD3-CD16+CD56+). Among the B-cells, both kappa+ and lambda+ subsets are represented. The remainder of the CD45+ events is predominantly of myeloid lineage. There is no increase in blasts. 2 14:35 [facility] Flow Markers CD10, CD117, CD11c, CD16, CD19, CD20, CD3, CD33, CD34, CD38, CD4, CD45, CD5, CD56, CD8, HLA-DR, [place], and Lambda 2 14:35 [facility] FDA Disclaimer This test was developed and its performance characteristics determined by the Department of Pathology and Laboratory Medicine, [facility] [place] It has not been cleared or approved by the U.S. Food and Drug Administration. FDA does not require this test to go through premarket FDA review. This test is used for clinical purposes. It should not be regarded as investigational or for research. This laboratory is certified under the Clinical Laboratory Improvement Amendments (CLIA) as qualified to perform high complexity clinical laboratory testing. 2 14:35 EDT [facility] Resident/Fellow: Oz Carrion DO 2 14:35 EDT [facility] Sample Analyzed Date and Time 01/14/22 12:32 2 14:35 EDT [facility] Scanned Images 2 14:35 EDT [facility] ZZUNK VENOUS BLOOD / Unknown 01/12/2022 16:15 EDT 01/13/2022 17:56 EDT Katelin Beard MD PATHOLOGY ORDERABLES Final R esult Performing Organization Address City/[facility]/ZIP Co de Phone Number [facility] [address] [place] [address] * RHEUMATOID FACTOR (01/12/2022 16:15 EDT) Rheumatoid Factor <8.6 <12.0 IU/mL 01/13/2022 18:18 EDT [facility] Blood VENOUS BLOOD / Unknown 01/12/2022 16:15 EDT 01/13/2022 17:39 EDT Katelin Beard MD CHEMISTRY & BLOOD GAS ORDERA BLES Final Result Performing Organization Address City/[facility]/ZIP Co de Phone Number [facility] [address] [place] [address] * ANTI DNA (DOUBLE STRANDED) (01/12/2022 16:15 EDT) Anti-DNA (Double Stranded) <12.3 <30.0 IU/mL 01/18/2022 12:55 EDT [facility] Comment: ? Negative: ??<30.0 IU/mL ? Borderline Positive: ??30.0 - 75.0 IU/mL ? Positive: ??>75.0 IU/mL Results were obtained with the INOVA QUANTA Lite dsDNA SC KENIA assay on the [employer] DSX. Blood VENOUS BLOOD / Unknown 01/12/2022 16:15 EDT 01/13/2022 17:39 EDT Katelin Beard MD [facility]MMUNOLOGY [facility] Final Result Performing Organization Address [facility] de Phone Number [facility] [address] [place] [address] * (ABNORMAL) ANTI NUCLEAR AB (OCTAVIA), IFA (01/12/2022 16:15 EDT) OCTAVIA Interpretation Positive(A) Negative 01/14/2022 15:44 EDT [facility] Comment: For titers greater than or equal to 1:160 (except the centromere and nucleolar patterns) it is recommended that specific follow-up autoantibody testing ??(such as for dsDNA and Extractable Nuclear Antigens) be performed on all diffuse and/or speckled patterns NOTE: For add-on testing dsDNA is stable for 7 days refrigerated while Extractable Nuclear Antigens are only stable for 48 hours refrigerated. OCTAVIA Titer and Pattern 1 1:320 Speckled 01/14/2022 15:44 EDT [facility] Blood VENOUS BLOOD / Unknown 01/12/2022 16:15 EDT 01/13/2022 17:39 EDT Narrative [facility] - 01/14/2022 15:44 EDT Results were obtained with the INOVA NOVA Lite HEp-2 OCTAVIA Kit by indirect immunofluorescence. Katelin Beard MD IMMUNOLOGY AND SEROLOGY ORDE RABLES Final Result Performing Organization Address [facility] de Phone Number [facility] [address] [place] [address] * CCP ANTIBODIES (01/12/2022 16:15 EDT) CCP Antibodies <2.5 <5.0 U/mL 01/14/2022 9:31 EDT [facility] Blood VENOUS BLOOD / Unknown 01/12/2022 16:15 EDT 01/13/2022 17:39 EDT Katelin Beard MD IMMUNOLOGY AND SEROLOGY CONRAD MYLES Final Result [facility] [address] [place] [address] documented in this encounter Visit Diagnoses Diagnosis Other nonspecific abnormal finding of lung field documented in this encounter Care Teams Taker Away Relationship Specialty Start Date End Date Soco Qureshi ARNP [address] [place] [address] PCP - General 03/05/09 02/07/23 None, Provider PCP - General 02/08/23 03/09/23 Unknown, Provider, PCP - General 03/10/23 06/18/23 None, Provider PCP - General 06/19/23 documented as of this encounter
--- OUTSIDE RECORDS SUMMARY | 2024-05-28 11:46 | XMS_ITS | Encounter Summary ---
Author Organization [facility] Address [address] [place] [address] Care Team Providers Care Associate Professor Of Theology Name Role Phone None, Provider Primary Care Provider Unavailabl e Reason for Referral * Radiology Services (Routine/Next Available) - Authorization Not Required Specialty Diagnoses / Procedures Referred By Contac t Referred To Contact Nuclear Medicine Diagnoses Abnormal chest CT Mediastinal lymphadenopathy Procedures PET CT EYE TO THIGH Tex Colvin MD Phone: tel: fax: [facility] Referral ID Status Reason Start Date Expiration Date Visits Requested Visits Authorized [id number] Authorization Not Required 12/26/2022 1 1 Reason for Visit * Radiology Services (Routine/Next Available) - Authorization Not Required Specialty Diagnoses / Procedures Referred By Contac t Referred To Contact Nuclear Medicine Diagnoses Abnormal chest CT Mediastinal lymphadenopathy Procedures PET CT EYE TO THIGH Tex Colvin MD Phone: tel: fax: [facility] Referral ID Status Reason Start Date Expiration Date Visits Requested Visits Authorized [id number] Authorization Not Required 12/26/2022 1 1 Encounter Details Date Type Department Care Team (Latest Contact Info) Description 02/08/2023 13:32 EDT - 02/08/2023 23:59 EDT Hospital Encounter [facility] Radiology Nuclear Medicine and PET - [address]; Mediastinal lymphadenopathy Discharge Disposition: Home or Self Care Social [...] naproxen sodium (ALEVE ORAL) Take by mouth. fluticasone propionate (FLOVENT DISKUS INHALATION) Inhale as directed. 03/01/2023 tiotropium (SPIRIVA) 18 mcg inhalation capsule Inhale 1 Capsule as directed daily. 30 Capsule 11 12/26/2022 07/31/2023 documented as of this encounter Discharge Disposition Disposition Code Departure Means Destination Home or Self Care documented in this encounter Plan of Treatment Not on file documented as of this encounter Procedures Procedure Name Priority Date/Time Associated Diagnosis Comments PET CT EYE TO THIGH Routine 02/08/2023 16:[address] Mediastinal lymphadenopathy POCT GLUCOSE, INTERFACED Routine 02/08/2023 13:58 EDT documented in this encounter Results * PET CT EYE [...] above interpretation and agree with the findings. [id number] Narrative 02/09/2023 10:[address] EYE [...] the IV injection of 9.8 mCi of [id number], PET/CT imaging was obtained from the skull [...] following the IV injection of 9.8 mCi [id number], PET/CT imaging was obtained from the skull [...] (max SUV 2.7 fused axial series 202 [id number]). No enlarged lymph nodes. Incidental findings: Atherosclerotic [...] the above interpretation andagree with the findings. [id number] us Tex Colvin MD IMG NM ORDERABLES Isabella l Result * POCT GLUCOSE, INTERFACED (02/08/2023 13:58 EDT) Glucose, POC 100 70 - 100 mg/dL 02/08/2023 13:59 EDT [facility] HN LAB POC COMMENT (GLUCOSE) Test Performed by Nursing Services 02/08/2023 13:59 EDT [facility] Blood CAPILLARY BLOOD / Unknown 02/08/2023 13:58 EDT 02/08/2023 13:59 EDT us Provider Unknown POINT OF CARE TEST ORDERABLE S Final Result [facility] [address] [place] [address] documented in this encounter Visit Diagnoses Diagnosis Abnormal chest CT Nonspecific (abnormal) findings on radiological and other examination of other intrathoracic organs Mediastinal lymphadenopathy Enlargement of lymph nodes documented in this encounter Administered Medications Inactive Administered Medications - up to 3 most recent administrations Medication Order MAR Action Action Date Dose Rate Site fludeoxyglucose (F-18) FDG injection 15 millicurie 15 millicurie, radiopharm IV, NOW X1, 1 dose, On Mon02/08/23 at 1500, Routine, Imaging Protocol Orders Given 02/08/2023 14:01 EDT 9.78 millicuries documented in this encounter Orders Medications Ordered That Christiano ht Not Have Been Administered Count Last Ordered Date First Ordered Date fludeoxyglucose (F-18) FDG i njection 15 millicurie 1 02/08/2023 documented in this encounter Care Teams Associate Professor Of Theology Relationship Specialty Start Date End Date None, Provider PCP - General 02/08/23 03/09/23 documented as of this encounter
--- OUTSIDE RECORDS SUMMARY | 2024-05-28 11:46 | XMS_ITS | Encounter Summary ---
Author Organization [facility] Address [address] [place] [address] Care Team Providers Care Pin Drafting Machine Operator Name Role Phone Goyo Qureshissica LETICIA Primary Care Provider [phone] [phone] Reason for Visit * (Routine/Next Available) - Receiving Office to Obtain Authorization Specialty Diagnoses / Procedures Referred By Contac t Referred To Contact Procedures XR OUTSIDE IMAGES CHEST Imaging, External Referral ID Status Reason Start Date Expiration Date Visits Requested Visits Authorized [id number] Receiving Office to Obtain Authorization 03/05/2022 1 1 Encounter Details Date Type Department Care Team (Latest Contact Info) Description 12/22/2021 Hospital Encounter [facility] Secondary Reads [place] Discharge Disposition: [...] Diagnosis Comments XR OUTSIDE IMAGES CHEST Routine 03/05/2022 10:05 EDT documented in this encounter Results * XR OUTSIDE IMAGES CHEST (03/05/2022 10:05 EDT) Narrative 03/05/2022 10:05 EDT This is a non-reportable exam. us External Imaging IMG OTHER IMAGING ORDERABLES Fi nal Result documented in this encounter Visit Diagnoses Not on filedocumented in this encounter Care Teams Pin Drafting Machine Operator Relationship Specialty Start Date End Date Soco Qureshi ARNP [address] [place] [address] PCP - General 03/05/09 02/07/23 documented as of this encounter
[2024-05-30 11:54] LABS: Adrenocorticotropic Hormone, P 22 pg/mL
== END 2024-05-28 11:39 | disposition home or self-care (01) ==
LOC: LBO 11:39
PROVIDERS: PCP Internal Medicine Medical Oncology; Visit Provider Nurse Practitioner Family
DX: C34.11 Malignant neoplasm of upper lobe, right bronchus or lung (principal); Z79.899 Other long term (current) drug therapy
CPT/HCPCS: 36415; 80053; 82533; 82024; 84439; 84443

== ENCOUNTER 2024-05-28 15:27 | Outpatient (REF) | payer MEDICAID, SELFPAY ==
[2024-05-29 10:57] LABS: Campylobacter PCR Negative (Negative); Salmonella PCR Negative (Negative); Shiga Toxin PCR Negative (Negative); Shigella/Enteroinvasive Ecoli Negative (Negative)
[2024-05-31 18:42] LABS: Calprotectin <50.0 mcg/g
== END 2024-05-28 15:28 | disposition home or self-care (01) ==
LOC: LBN 15:27
PROVIDERS: PCP Internal Medicine Medical Oncology; Visit Provider Surgery
DX: K59.09 Other constipation (principal); R10.9 Unspecified abdominal pain; R10.2 Pelvic and perineal pain; R19.4 Change in bowel habit; K58.2 Mixed irritable bowel syndrome
CPT/HCPCS: 87505; 82270; 83630; 83993

== ENCOUNTER 2024-07-14 15:37 | Emergency (ER) | payer MEDICAID, SELFPAY ==
[2024-07-14 15:39] VITALS: BP 118/73; PULSE 123; RESP 18; O2SAT 94
--- NOTE | 2024-07-14 15:45 | RT.EKG_ITS ---
APPROVED REPORT Exam: Resting ECG Reason for Exam: CP, SOB, hx pneumonitis Patient Location: E HR:106 bpm ECG Measurements Heart Rate 106 AXIS MA 174 P 84 QRSd 89 QRS 85 QT 340 T 75 QTc 451 Conclusion Sinus tachycardia, rate 106 No interval abnormalities No STEMI No significant changes from priors
--- NOTE | 2024-07-14 15:45 | DI.RAD_ITS ---
Exam(s) XR CHEST 2V PA LATERAL EXAM: XR CHEST 2V PA LATERAL CLINICAL HISTORY: SOB, CP TECHNIQUE: 2D digital imaging was performed. Two views. COMPARISON: CR XR CHEST 2V PA LATERAL from 09/29/[address] CHEST W from 12/13/2023 CR XR CHEST 1V IN DI DEPT from 04/01/2024 FINDINGS: HEART: Normal size. Aorta: Not dilated. PULMONARY VASCULATURE: Normal. MEDIASTINUM: Unremarkable. LUNGS: Mild increase in size of previously noted right upper lobe and perihilar mass. No evidence of superimposed pneumonia or pulmonary edema. PLEURAL SPACE: No pleural effusion or pneumothorax. BONE:Unremarkable for age. SOFT TISSUES: Unremarkable. IMPRESSION: Right upper lobe mass may have increased in size from prior CT. No evidence of pneumonia. DATA REPOSITORY: RADIATION DOSE DELIVERED:
--- NOTE | 2024-07-14 16:08 | ED.GENADUL_ITS ---
Discharge Plan Disposition Patient Disposition: Home Condition: Stable Discharge Details Clinical Impression: Chest pain, pleuritic, Metastatic primary lung cancer, Acute exacerbation of chronic obstructive pulmonary disease Primary Care Provider: Osvaldo Hatch ED Provider: Audrey Barahona Home Meds and New Rx's Prescriptions: New ipratropium bromide 0.02 % solution 2.5 ml inhalation Q6H PRNQty: 62.5 0RF Rx Instructions: This can be combined with your albuterol nebulizer solution No Action guaifenesin [Mucinex] 600 mg tablet extended release 12hr 600 mg PO Q12H PRN clotrimazole 10 mg john 10 mg mucous membrane ONCE Qty: 30 6RF naproxen sodium [Aleve] 220 mg tablet 220 mg PO Q12H PRN polyethylene glycol 3350 [Miralax] 17 gram/dose powder 17 g PO DAILY PRN (Reason: constipation) Qty: 238 3RF Rx Instructions: take one dose at bedtime if no BM during the day Combivent Respimat 20-100 mcg/actuation mist 1 puff inhalation Q6H Probiotic with Prebiotic 1 billion-250 cell-mg capsule 1 cap PO DAILY Adult 50 Plus Probiotic 4 billion cell capsule 4,000 mmu cells PO DAILY Rx Instructions: administer with a meal cholecalciferol (vitamin D3) 25 mcg (1,000 unit) capsule 125 mcg PO DAILY acetaminophen [Tylenol] 325 mg tablet 325 mg PO Q6H PRN lorazepam 0.5 mg tablet 0.5 mg PO DAILY PRN (Reason: anxiety) Qty: 10 0RF Rx Instructions: Take 1/2 tablet to 1 tablet 15 minutes prior to infusion as needed fluticasone propion-salmeterol [Advair Diskus] 250-50 mcg/dose blister with device 1 inh inhalation BID Qty: 60 0RF albuterol sulfate [Ventolin HFA] 90 mcg/actuation HFA aerosol inhaler See Rx Instructions .ROUTE .COMPLEX Qty: 18 10RF Dose Instruction: INHALE TWO PUFFS BY MOUTH EVERY 4 TO 6 HOURS NEEDED FOR FOR SHORTNESS OF B REATH OR WHEEZE Rx Instructions: INHALE TWO PUFFS BY MOUTH EVERY 4 TO 6 HOURS NEEDED FOR FOR SHORTNESS OF BREATH OR WHEEZE fluticasone propion-salmeterol [Advair HFA] 115-21 mcg/actuation HFA aerosol inhaler 2 puff inhalation BID Qty: 12 12RF clotrimazole 10 mg john 10 mg mucous membrane TID Qty: 30 3RF albuterol sulfate 2.5 mg /3 mL (0.083 %) solution for nebulization 2.5 mg inhalation Q4H PRN (Reason: shortness of breath or wheezing) Qty: 540 5RF ondansetron 4 mg tablet,disintegrating 4 mg PO Q8H Discharge Instructions Instructions: COPD Exacerbation, Adult ED Additional Instructions: You were seen in the emergency department today for evaluation of chest pain with breathing that felt like prior episodes of pneumonitis. In our department you had a full physical examination performed, received a nebulizer treatment and steroids, and had laboratory studies that were reassuring, though you did have a mildly low magnesium. Your chest x-ray shows slight increase in the size of your right sided mass, as well as the area where the lung connects to the center of your chest noticed a high lump. I have provided you with a prescription for ipratropium bromide, a medication that can be helpful in drying secretions and COPD. This can be taken as a nebulizer treatment with your albuterol every 6 hours as needed. I have also given you a 5-day steroid burst for inflammation in the setting of COPD. You need to call your oncologist/crystallizer operator tomorrow to discuss next steps in management of your lung cancer and ongoing breathing concerns. Thank you for allowing us to be part of your care. HPI General Mode of arrival: ambulatory . Date/Time Provider Initiated Documentation: 07/14/24 15:43 . Limitations to Documentation: no limitations . Information obtained by: patient and old records reviewed . HPI Narrative: HPI: This is a 58-year-old female patient with a past medical history significant for COPD, metastatic primary lung cancer, with delayed chemotherapy due to episodes of recurrent pneumonitis, abdominal pain, and frequent need for systemic steroids, presenting for evaluation of pleuritic chest pain. The patient reports that she felt the same symptoms that she had and prior episodes of pneumonitis, with pain in the center of her chest that is worse with breathing, moving, and palpation. She states that this got worse several days ago, prompting her to seek care today. She has been using her home albuterol, just finished a course of systemic steroids 3 days ago. She has had an upper respiratory syndrome for the past month or so, states that she typically gets allergies in the wintertime. No fevers, has had a cough that is productive of thick, nonbloody mucus which is different from her baseline. She states that she has been able to eat and drink at her baseline, though slightly less than she would like due to her abdominal discomfort in the setting of chronic steroid use. The patient does not wear oxygen at home, does feel like her wheezing and work of breathing is worse than typical for her. No recent sick contacts. Exam: Gen: Awake and alert, in no apparent distress HEENT: Non-icteric sclera Neck: Supple Lungs: No apparent respiratory distress, normal respiratory effort. Lung sounds with end expiratory wheezing in all momin, though moving good air CV: Appears well perfused, heart with regular rate and rhythm, pain over the sternum with movement and deep breath, no overlying skin changes Abdomen: Non-distended, soft MSK: Moves 4 extremities without apparent limitation in ROM. No peripheral edema or unilateral leg swelling Skin: Visualized skin without rashes, cyanosis. Neuro: Normal Gait, no obvious focal deficits or facial asymmetry. Speaks in full, clear sentences. Psych: Appropriate for situation. MDM: This is a 58-year-old female patient presenting for evaluation of pleuritic chest pain. Differential includes but is not limited to upper respiratory infection, bronchitis, pneumonia, COPD exacerbation, pneumonitis/pleurisy. Certainly considered ACS, including STEMI, NSTEMI, unstable angina. No tachycardia or hypoxia to significantly increase my concern for pulmonary embolism, and the reproduction with palpation and movement is more typical for pneumonitis. Considered metabolic and electrolyte derangements, anemia. Given the wheezing we will provide the patient with a duo nebulizer treatment and a dose of prednisone. I will obtain laboratory studies to include Fluvid, CBC, CMP, magnesium, troponin, and we will obtain a chest x-ray. The patient has already taken Tylenol and Aleve and does not require any additional medications for management of pain. ED Course: I reviewed the patient's laboratory studies, which show no leukocytosis, anemia, or thrombocytopenia. Chemistry panel is without electrolyte abnormalities or evidence of kidney dysfunction, but she does have a mildly low magnesium which was repleted intravenously. No evidence for liver dysfunction, troponin negative, as was the COVID and influenza swab. Chest x-ray shows increase in size of the right upper lobe and perihilar mass, but no evidence of pneumonia or pulmonary edema. The patient reports minimal improvement with a duo nebulizer and initial dose of steroids, and I am most concerned for COPD exacerbation as well as worsening of her known malignancy. Certainly pneumonitis and pleurisy are also of concern. I provided the patient with a steroid burst, as well as a prescription for ipratropium to add to her albuterol during nebulizer treatments. The patient will follow-up with her oncologist/crystallizer operator tomorrow to discuss the symptoms, and will continue to use Aleve and Tylenol for management of pain. We had a discussion regarding [id number] management of cough, and the patient will continue using Mucinex. The patient had no desaturation events and never required supplemental oxygen. At this time, the patient has had a full medical evaluation and is safe for discharge to home. They are hemodynamically stable, ambulatory, and tolerating PO. They are understanding of the follow-up plan and return precautions. They left our facility without incident. Audrey Barahona MD Related Data Home Medications ?Medication ?Instructions ?Recorded ?Confirmed acetaminophen 325 mg tablet 325 mg PO Q6H PRN 01/05/22 07/14/24 (Tylenol) cholecalciferol (vitamin D3) 25 125 mcg PO DAILY 01/05/22 07/14/24 mcg (1,000 unit) capsule clotrimazole 10 mg john 10 mg mucous membrane ONCE #30 tabs 08/22/23 07/14/24 guaifenesin 600 mg tablet, 600 mg PO Q12H PRN 08/22/23 07/14/24 extended release 12 hr (Mucinex) naproxen sodium 220 mg tablet 220 mg PO Q12H PRN 09/28/23 07/14/24 (Aleve) fluticasone 250 mcg-salmeterol 50 1 inh inhalation BID #60 ea 11/15/23 07/14/24 mcg/dose blistr powdr for inhalation (Advair Diskus) lorazepam 0.5 mg tablet 0.5 mg PO DAILY PRN anxiety #10 11/15/23 07/14/24 tabs albuterol sulfate 90 mcg/actuation See Rx Instructions .Route 12/12/23 07/14/24 aerosol inhaler (Ventolin HFA) .COMPLEX #18 grams clotrimazole 10 mg john 10 mg mucous membrane TID #30 tabs 12/12/23 07/14/24 fluticasone propionate 115 2 puff inhalation BID #12 grams 12/12/23 07/14/24 mcg-salmeterol 21 mcg/actuation HFA inhaler (Advair HFA) albuterol sulfate 2.5 mg/3 mL 2.5 mg (3 mL) inhalation Q4H PRN 12/22/23 07/14/24 (0.083 %) solution for nebulization shortness of breath or wheezing #540 mL ondansetron 4 mg disintegrating 4 mg PO Q8H 04/24/24 07/14/24 tablet polyethylene glycol 3350 17 17 g PO DAILY PRN constipation 04/25/24 07/14/24 gram/dose oral powder (Miralax) #238 grams Bacillus coagulans-inulin 1 1 cap PO DAILY 05/23/24 07/14/24 billion cell-250 mg capsule (Probiotic with Prebiotic) ipratropium 20 mcg-albuterol 100 1 puff inhalation Q6H 05/23/24 07/14/24 mcg/actuation mist for inhalation (Combivent Respimat) lactobacillus combination no.9 4 4,000 mmu cells PO DAILY 05/23/24 07/14/24 billion cell capsule (Adult 50 Plus Probiotic) ipratropium bromide 0.02 % 2.5 ml inhalation Q6H PRN #62.5 mL 07/14/24 solution for inhalation Previous Rx's ?Medication ?Instructions ?Recorded clotrimazole 10 mg john 10 mg mucous membrane ONCE #30 tabs 08/22/23 fluticasone 250 mcg-salmeterol 50 1 inh inhalation BID #60 ea 11/15/23 mcg/dose blistr powdr for inhalation (Advair Diskus) lorazepam 0.5 mg tablet 0.5 mg PO DAILY PRN anxiety #10 11/15/23 tabs albuterol sulfate 90 mcg/actuation See Rx Instructions .Route 12/12/23 aerosol inhaler (Ventolin HFA) .COMPLEX #18 grams clotrimazole 10 mg john 10 mg mucous membrane TID #30 tabs 12/12/23 fluticasone propionate 115 2 puff inhalation BID #12 grams 12/12/23 mcg-salmeterol 21 mcg/actuation HFA inhaler (Advair HFA) albuterol sulfate 2.5 mg/3 mL 2.5 mg (3 mL) inhalation Q4H PRN 12/22/23 (0.083 %) solution for nebulization shortness of breath or wheezing #540 mL polyethylene glycol 3350 17 17 g PO DAILY PRN constipation 04/25/24 gram/dose oral powder (Miralax) #238 grams ipratropium bromide 0.02 % 2.5 ml inhalation Q6H PRN #62.5 mL 07/14/24 solution for inhalation Allergies Allergy/AdvReac Type Severity Reaction Status Date / Time pseudoephedrine (From AdvReac Unknown Other (See Verified 07/14/24 15:43 Sudafed) Comment) narcotics AdvReac Unknown gi upset Uncoded 07/14/24 15:43 General Stated Complaint: RespSymp WES: 4 Course Vital Signs Vital signs: Vital Signs Pulse 123 H 07/14/24 15:39 Respiratory Rate 18 07/14/24 15:39 Blood Pressure 118/73 07/14/24 15:39 Pulse Oximetry 94 07/14/24 15:39 Pulse 123 H 07/14/24 15:39 Respiratory Rate 18 07/14/24 15:39 Blood Pressure 118/73 07/14/24 15:39 Pulse Oximetry 94 07/14/24 15:39 Oxygen Delivery Method Room Air 07/14/24 15:39 Oxygen Flow Rate 0 07/14/24 15:39 Medical Decision Making Quality:SDOH Health Related Social Needs: No Data to Display PFSH All Active Problems (Updated 07/14/24 @ 18:24 by Audrey Barahona MD) Acute exacerbation of chronic obstructive pulmonary disease (Acute) Chest pain, pleuritic (Acute) Post-obstructive pneumonia due to foreign body aspiration (Acute) Metastatic primary lung cancer (Acute) High blood sugar (Acute) Thrush of mouth and esophagus (Acute) COPD (chronic obstructive pulmonary disease) (Chronic) Pulmonary nodule (Acute) Nicotine dependence, cigarettes, uncomplicated (Acute) Mass of upper lobe of right lung (Acute) Concussion (Acute) Dizziness (Acute) Anxiety (Chronic) Lesion of ulnar nerve (Acute) Ovarian cyst (Acute) Fatigue (Acute) Depression (Chronic) Abdominal pain (Acute) Bursitis (Acute) Back pain (Acute) Pelvic pain (Acute) Medical History Bowel habit changes Exposure to viral hepatitis (Suspected) Generalized hyperhidrosis Myalgia Paresthesia of skin Epigastric pain Cervical dysplasia Surgical History H/O LEEP Family History Mother Cancer family history of CA Mother bladder questioning ovarian ca Uncle brain CA Grand father CA unknown origin. Social History Smoking/Tobacco Use Status: Former Tobacco Use Quit Date: 10/31/23 Smoking risk assessment performed?: Yes Alcohol Intake: current Alcohol Intake frequency: holidays/special occasions only Drug use: Never Substance use type: does not use Housing: house Do you feel safe at home: Yes Do you feel safe in your relationship?: Yes
[2024-07-14 16:14] VITALS: PULSE 69; RESP 19; O2SAT 98
[2024-07-14] MEDS: predniSONE 20 MG TAB 40 MG PO (16:14)
[2024-07-14] MEDS: Albuterol/Ipratropium 3 ML UPD VIAL UPD (16:14)
[2024-07-14 16:50] LABS: Abs Immature Grans 0.04 10^3/uL (0.0-0.06); Absolute Basophil Count 0.05 10^3/uL (0.0-0.2); Absolute Eosinophil Count 0.11 10^3/uL (0.0-0.7); Absolute Lymphocyte Count 2.23 10^3/uL (1.2-3.4); Absolute Monocyte Count 1.17 10^3/uL (0.1-0.8); Absolute Neutrophil Count 6.87 10^3/uL (1.2-6.7); Basophils % 0.5 %; Eosinophils % 1.1 %; HGB 14.8 g/dL (11.2-15.7); Immature Grans % 0.4 %; Lymphocytes % 21.3 %; MCH 31.8 pg (27.0-33.0); MCHC 32.9 % (32.0-36.0); MCV 97 fL (80-95); MPV 8.6 fL (8.0-11.0); Monocytes % 11.2 %; Neutrophils % 65.5 %; Platelet Count 366 10^3/uL (130-400); RBC 4.65 10^6/uL (3.93-5.22); RDW 13.8 % (11.7-14.6); WBC 10.47 10^3/uL (4.4-10.8)
[2024-07-14 17:22] LABS: ALT 18 U/L (14-59); AST 18 U/L (15-37); Albumin 3.2 g/dL (3.4-5.0); Alkaline Phosphatase 94 U/L (46-116); Anion Gap 6.3 mmol/L (3-11); BUN 13 mg/dL (7-18); Bilirubin, Total 0.37 mg/dL (0.2-1.0); CO2 29.7 mmol/L (21.0-32.0); CREATININE 0.7 mg/dL (0.55-1.02); Calcium 8.8 mg/dL (8.5-10.1); Chloride 104 mmol/L (98-107); Estimated GFR 99.57 (mL/min/1.73m2); Glucose 111 mg/dL (74-106); Magnesium 1.5 mg/dL (1.8-2.4); Potassium 3.7 mmol/L (3.5-5.1); Sodium 140 mmol/L (136-145); Total Protein 6.7 g/dL (6.4-8.2); Troponin I 9 ng/L (<or=51)
[2024-07-14] MEDS: MAGNESIUM SULFATE 1 GM/100 ML BAG IV_INF (17:51)
[2024-07-14 18:09] LABS: COVID-19 PCR Negative (Negative); Influenza A PCR Negative (Negative); Influenza B PCR Negative (Negative); RSV PCR Negative (Negative)
[2024-07-14 18:11] LABS: Source Nasopharynx
[2024-07-14 18:17] LABS: Troponin I 8 ng/L (<or=51)
[2024-07-14] MEDS: predniSONE 20 MG TAB 160 MG PO (18:37)
[2024-07-14 18:38] VITALS: BP 100/68; PULSE 103; RESP 19; O2SAT 98
[2024-07-14 18:39] VITALS: BP 100/68; PULSE 103; RESP 19; O2SAT 98
== END 2024-07-14 18:55 | disposition home or self-care (01) ==
PROVIDERS: Emergency Provider Emergency Medicine; PCP Internal Medicine Medical Oncology
DX: R07.89 Other chest pain (principal); J44.1 Chronic obstructive pulmonary disease with (acute) exacerbation; C34.90 Malignant neoplasm of unspecified part of unspecified bronchus or lung; R00.0 Tachycardia, unspecified; Z92.21 Personal history of antineoplastic chemotherapy; Z87.891 Personal history of nicotine dependence
CPT/HCPCS: 36415; 80053; 87637; 93005; 94640; 96365; 99285; 71046; 83735; 84484; 85025; 93010; J3475; J7512; J7620

== ENCOUNTER 2024-07-19 00:12 | Outpatient (CLI) | payer MEDICAID, SELFPAY ==
--- NOTE | 2024-07-19 | DI.CT_ITS ---
Exam(s) CT CHEST W EXAM: CT CHEST W CLINICAL HISTORY: RUL LUNG CA,C34.11,METASTATIC,PNEUMONITIS,INCREASING TECHNIQUE: Imaging Protocol: Axial computed tomography images with coronal and sagittal reformatted images were created and reviewed. Computer aided detection (CAD) was utilized. CONTRAST MATERIAL: Intravenous: Omnipaque 350 Contrast volume:70 ml. COMPARISON: CT CT CHEST W from 12/13/2023 FINDINGS: Pulmonary parenchyma: No consolidation. Significant interval increase in size of previously noted ri ght upper lobe/perihilar mass. Approximate measurements now 7.5 x 8 by 8 cm compared with 5.4 x 4.5 x 4.5 cm on the prior exam there is also right upper lobe volume loss. Area is significant bronchia l occlusion. No new masses are identified. Tracheobronchial tree: Occlusion of multiple right upper lobe bronchi. No bronchiectasis or mucous p lugging elsewhere in the lungs.. Mediastinum and Evette: No dominant adenopathy or fluid collection. Pleura: No effusion. No pneumothorax. Heart: The heart is not dilated. Minimal coronary artery calcifications are seen. Aorta: Thoracic aorta non-dilated. Minimal atherosclerotic changes. Pulmonary arteries: No gross evidence of emboli. Upper abdomen: No acute findings. Bones: Degenerative changes in the spine. Soft tissues: Unremarkable. IMPRESSION: Significant interval increase in size right upper lobe/perihilar mass. RADIATION DOSE DELIVERED: Total DLP DATA REPOSITORY: All CT scans at this facility are submitted to the National Radiology Data Registry (NRDR) Dose Index Registry (DIR) with the [employer] ([employer]). RADIATION OPTIMIZATION: All CT scans at this facility use at least one of these dose optimization te chniques: automated exposure control; mA and/or kV adjustment per patient size (includes targeted exa ms where dose is matched to clinical indication); or iterative reconstruction.
[2024-07-19] MEDS: Normal Saline - Diluent 50 ML VIAL IJ (14:11)
[2024-07-19] MEDS: Omnipaque 350 MG/ML 100 ML BTL 70 ML IJ (14:12)
== END 2024-07-19 00:32 ==
LOC: DI 00:13
PROVIDERS: PCP Internal Medicine Medical Oncology; Visit Provider Internal Medicine Medical Oncology
DX: C34.11 Malignant neoplasm of upper lobe, right bronchus or lung (principal)
CPT/HCPCS: 71260; J3490

== ENCOUNTER 2024-07-20 17:43 | Inpatient (IN) | payer MEDICAID, SELFPAY ==
[2024-07-20] VITALS (30 sets, daily range): BP systolic 128–142; BP diastolic 79–114; PULSE 109–130; RESP 9–37; TEMP 36.5–36.9; O2SAT 89–96
--- NOTE | 2024-07-20 18:15 | RT.EKG_ITS ---
APPROVED REPORT Exam: Resting ECG Reason for Exam: SOB Patient Location: E HR:117 bpm ECG Measurements Heart Rate 117 AXIS MD 167 P 85 QRSd 86 QRS 87 QT 301 T 75 QTc 421 Conclusion Sinus tachycardia...rate> 99 Sinus tachycardia at a rate of 117. Normal axis. Low voltage. Poor R wave progression. No STEMI.
--- NOTE | 2024-07-20 18:15 | DI.CT_ITS ---
Exam(s) CT CHEST PE CTA EXAM: CT CHEST PE CTA CLINICAL HISTORY: SOB in pt wtih lung CA. TECHNIQUE: Imaging Protocol: CT angiography of the chest was performed using pulmonary embolus shira col. Multi planar reconstructions were performed. CONTRAST MATERIAL: Intravenous: Omnipaque 350 Contrast volume: 65 cc COMPARISON: CT CT CHEST PE CTA from 11/14/2023 CR XR CHEST 2V PA LATERAL from 07/14/[address] CHEST W from 07/19/2024 FINDINGS: CHEST: PULMONARY ARTERIES: There are no intraluminal filling defects to suggest acute pulmonary emboli. LUNGS: Again noted is the large malignant appearing lesion in the right upper and superior segment ri ght lower lobe which has increased in size from CT scan of 11/14/2023 and which appears unchanged in size from CT scan of 07/19/2024, 1 day prior.. Occlusion of the right upper lobe bronchus is again n oted. There is vascular encasement by the neoplasm but no vascular occlusion nor intraluminal fillin g defects evident. There are no significant focal findings in the right middle lobe. No pleural eff usion. No significant focal findings in the opposite-left lung with the exception of some mild benig n-appearing increased markings in the anterior basal segment of the left lower lobe which appear unch anged. There are no pleural effusions on either side. No significant findings in the trachea. MEDIASTINUM: The large right-sided mass is contiguous with the right hilum therefore difficult to dif ferentiate mass from hilar adenopathy. There is no subcarinal adenopathy. Opposite-left hilum is un remarkable. There is no adenopathy in the anterior mediastinal fat. No supraclavicular adenopathy. No axillary adenopathy. CARDIAC: Heart size is upper normal. There is no pericardial effusion.Caliber of the thoracic aorta is within normal limits. No evidence of aortic dissection. There is no significant shift of the inte rventricular septum. PARTIALLY VISUALIZED UPPERMOST ABDOMEN: No adrenal masses. Spleen size normal. No ascites. OSSEOUS: No significant osseous lesions.No fractures.. IMPRESSION: 1. No evidence of acute pulmonary emboli. No evidence of pulmonary infarction.No pleural effusions. 2. Large right parahilar malignant-appearing mass again noted unchanged in size from yesterday's CT s can and involving the right upper lobe and superior segment of the right lower lobe. 3. No pleural effusions evident. RADIATION DOSE DELIVERED: 56.17mGy.cm Total DLP DATA REPOSITORY: All CT scans at this facility are submitted to the National Radiology Data Registry (NRDR) Dose Index Registry (DIR) with the [employer] (ACR). RADIATION OPTIMIZATION: All CT scans at this facility use at least one of these dose optimization te chniques: automated exposure control; mA and/or kV adjustment per patient size (includes targeted exa ms where dose is matched to clinical indication); or iterative reconstruction.
--- NOTE | 2024-07-20 18:30 | ED.GENADUL_ITS ---
Discharge Plan Disposition Patient Disposition: Admit to [facility] Discharge Details Clinical Impression: Acute exacerbation of chronic obstructive pulmonary disease, Metastatic primary lung cancer Primary Care Provider: Osvaldo Hatch ED Provider: Gwen Cummings Home Meds and New Rx's Prescriptions: No Action guaifenesin [Mucinex] 600 mg tablet extended release 12hr 600 mg PO Q12H PRN clotrimazole 10 mg john 10 mg mucous membrane ONCE Qty: 30 6RF naproxen sodium [Aleve] 220 mg tablet 220 mg PO Q12H PRN polyethylene glycol 3350 [Miralax] 17 gram/dose powder 17 g PO DAILY PRN (Reason: constipation) Qty: 238 3RF Rx Instructions: take one dose at bedtime if no BM during the day Combivent Respimat 20-100 mcg/actuation mist 1 puff inhalation Q6H Probiotic with Prebiotic 1 billion-250 cell-mg capsule 1 cap PO DAILY Adult 50 Plus Probiotic 4 billion cell capsule 4,000 mmu cells PO DAILY Rx Instructions: administer with a meal cholecalciferol (vitamin D3) 25 mcg (1,000 unit) capsule 125 mcg PO DAILY acetaminophen [Tylenol] 325 mg tablet 325 mg PO Q6H PRN lorazepam 0.5 mg tablet 0.5 mg PO DAILY PRN (Reason: anxiety) Qty: 10 0RF Rx Instructions: Take 1/2 tablet to 1 tablet 15 minutes prior to infusion as needed fluticasone propion-salmeterol [Advair Diskus] 250-50 mcg/dose blister with device 1 inh inhalation BID Qty: 60 0RF albuterol sulfate [Ventolin HFA] 90 mcg/actuation HFA aerosol inhaler See Rx Instructions .ROUTE .COMPLEX Qty: 18 10RF Dose Instruction: INHALE TWO PUFFS BY MOUTH EVERY 4 TO 6 HOURS NEEDED FOR FOR SHORTNESS OF BREATH OR WHEEZE Rx Instructions: INHALE TWO PUFFS BY MOUTH EVERY 4 TO 6 HOURS NEEDED FOR FOR SHORTNESS OF BREATH OR WHEEZE fluticasone propion-salmeterol [Advair HFA] 115-21 mcg/actuation HFA aerosol inhaler 2 puff inhalation BID Qty: 12 12RF clotrimazole 10 mg john 10 mg mucous membrane TID Qty: 30 3RF albuterol sulfate 2.5 mg /3 mL (0.083 %) solution for nebulization 2.5 mg inhalation Q4H PRN (Reason: shortness of breath or wheezing) Qty: 540 5RF ondansetron 4 mg tablet,disintegrating 4 mg PO Q8H ipratropium bromide 0.02 % solution 2.5 ml inhalation Q6H PRNQty: 62.5 0RF Rx Instructions: This can be combined with your albuterol nebulizer solution HPI General Date/Time Provider Initiated Documentation: 07/20/24 17:53 . HPI Narrative: Nakita is a 58year old female who presents to the emergency department today for evaluation of worsening shortness of breath over the last week. She was evaluated in the emergency department, found to have increasing mass in her right lung. She has been using prednisone and inhalers/nebulizers as prescribed with no improvement of symptoms. She does have shortness of breath now even at rest. Denies associated fever/chills, dizziness, syncope, congestion, sore throat, change in baseline cough, chest pain, nausea/vomiting, abdominal pain, change in bowel or bladder function, calf redness/swelling/tenderness. She denies history of blood clot or clotting disorder, hormone use, recent surgery/immobility, or anticoagulant use. Past medical history is significant for metastatic lung cancer and COPD. Physical exam remarkable for patient who appears anxious, with dyspnea at rest. End expiratory wheezes noted in all lung momin. No tripod positioning or acce ssory muscle use. Normal heart sounds, tachycardia noted. She is alert and oriented, moving all extremities equally. No pedal edema noted. D/dx includes but is not limited to: COPD exacerbation, other obstructive process associated with neoplasm, pneumonia, pulmonary embolism, ACS, CHF I independently interpreted the following tests: CBC reassuring, mild leukocytosis noted, consistent with current prednisone use. BMP and BNP unremarkable. Troponins flat. CTA unchanged from previous, shows large lobulated pulmonary mass in the right upper lobe with confluent satellite lesions and central extension to the pulmonary hilum and encasement of right upper lobe bronchial and vascular structures. Discussed case with Dr. Brennan, heme-onc at [facility] [place]. Reviewed patient presentation, vital signs, labs, and imaging. She believes that tachycardia and shortness of breath is most consistent with COPD exacerbation as being insufficiently treated. Recommends adding on VBG to see need for BiPAP/CPAP. Recommends IV methylprednisolone 125 mg as initial dose, followed by 40 mg every 8 hours; levalbuterol combined with ipratropium every 2 hours; and azithromycin Z-Mario for anti-inflammatory effect. Presented case to Dr. Sultana, [facility] hospitalist. He is agreeable to admit patient for COPD exacerbation. Nakita is agreeable with plan of care. Related Data Home Medications ?Medication ?Instructions ?Recorded ?Confirmed acetaminophen 325 mg tablet 325 mg PO Q6H PRN 01/05/22 07/20/24 (Tylenol) cholecalciferol (vitamin D3) 25 125 mcg PO DAILY 01/05/22 07/20/24 mcg (1,000 unit) capsule clotrimazole 10 mg john 10 mg mucous membrane ONCE #30 tabs 08/22/23 07/20/24 guaifenesin 600 mg tablet, 600 mg PO Q12H PRN 08/22/23 07/20/24 extended release 12 hr (Mucinex) naproxen sodium 220 mg tablet 220 mg PO Q12H PRN 09/28/23 07/20/24 (Aleve) fluticasone 250 mcg-salmeterol 50 1 inh inhalation BID #60 ea 11/15/23 07/20/24 mcg/dose blistr powdr for inhalation (Advair Diskus) lorazepam 0.5 mg tablet 0.5 mg PO DAILY PRN anxiety #10 11/15/23 07/20/24 tabs albuterol sulfate 90 mcg/actuation See Rx Instructions .Route 12/12/23 07/20/24 aerosol inhaler (Ventolin HFA) .COMPLEX #18 grams clotrimazole 10 mg john 10 mg mucous membrane TID #30 tabs 12/12/23 07/20/24 fluticasone propionate 115 2 puff inhalation BID #12 grams 12/12/23 07/20/24 mcg-salmeterol 21 mcg/actuation HFA inhaler (Advair HFA) albuterol sulfate 2.5 mg/3 mL 2.5 mg (3 mL) inhalation Q4H PRN 12/22/23 07/20/24 (0.083 %) solution for nebulization shortness of breath or wheezing #540 mL ondansetron 4 mg disintegrating 4 mg PO Q8H 04/24/24 07/20/24 tablet polyethylene glycol 3350 17 17 g PO DAILY PRN constipation 04/25/24 07/20/24 gram/dose oral powder (Miralax) #238 grams Bacillus coagulans-inulin 1 1 cap PO DAILY 05/23/24 07/20/24 billion cell-250 mg capsule (Probiotic with Prebiotic) ipratropium 20 mcg-albuterol 100 1 puff inhalation Q6H 05/23/24 07/20/24 mcg/actuation mist for inhalation (Combivent Respimat) lactobacillus combination no.9 4 4,000 mmu cells PO DAILY 05/23/24 07/20/24 billion cell capsule (Adult 50 Plus Probiotic) ipratropium bromide 0.02 % 2.5 ml inhalation Q6H PRN #62.5 mL 07/14/24 07/20/24 solution for inhalation Previous Rx's ?Medication ?Instructions ?Recorded clotrimazole 10 mg john 10 mg mucous membrane ONCE #30 tabs 08/22/23 fluticasone 250 mcg-salmeterol 50 1 inh inhalation BID #60 ea 11/15/23 mcg/dose blistr powdr for inhalation (Advair Diskus) lorazepam 0.5 mg tablet 0.5 mg PO DAILY PRN anxiety #10 11/15/23 tabs albuterol sulfate 90 mcg/actuation See Rx Instructions .Route 12/12/23 aerosol inhaler (Ventolin HFA) .COMPLEX #18 grams clotrimazole 10 mg john 10 mg mucous membrane TID #30 tabs 12/12/23 fluticasone propionate 115 2 puff inhalation BID #12 grams 12/12/23 mcg-salmeterol 21 mcg/actuation HFA inhaler (Advair HFA) albuterol sulfate 2.5 mg/3 mL 2.5 mg (3 mL) inhalation Q4H PRN 12/22/23 (0.083 %) solution for nebulization shortness of breath or wheezing #540 mL polyethylene glycol 3350 17 17 g PO DAILY PRN constipation 04/25/24 gram/dose oral powder (Miralax) #238 grams ipratropium bromide 0.02 % 2.5 ml inhalation Q6H PRN #62.5 mL 07/14/24 solution for inhalation Allergies Allergy/AdvReac Type Severity Reaction Status Date / Time pseudoephedrine (From AdvReac Unknown Other (See Verified 07/20/24 17:49 Sudafed) Comment) narcotics AdvReac Unknown gi upset Uncoded 07/20/24 17:49 General Stated Complaint: RespSymp WES: 3 Review of Systems Narrative: See HPI Exam Const General: cooperative, healthy appearing, comfortable, well groomed and anxious Nutritional Appearance: average body habitus Orientation: alert and oriented x3 Resp Effort & Inspection: able to speak in complete sentences and no cough Auscultation: wheezes expiratory wheezes Cardio Rate: tachycardic Rhythm: regular rhythm Skin General skin exam: no rashes or lesions noted Neuro General: patient alert, patient oriented x3, tone normal and moves all extremities Motor: muscle tone normal throughout Extrem General: no pedal edema Other: Clubbing noted to fingers bilaterally, no cyanosis Course Vital Signs Vital signs: Vital Signs Temperature 36.9 C 07/20/24 17:46 Pulse 130 H 07/20/24 17:46 Respiratory Rate 18 07/20/24 17:46 Blood Pressure 142/114 H 07/20/24 17:46 Pulse Oximetry 89 L 07/20/24 17:46 Temperature 36.9 C 07/20/24 18:23 Temperature Source Temporal Artery Scan 07/20/24 18:23 Pulse 130 H 07/20/24 18:23 Respiratory Rate 18 07/20/24 18:23 Respiratory Effort Normal, Non-Labored, Short of Breath 07/20/24 18:23 Respiratory Depth Normal 07/20/24 18:23 Blood Pressure 142/114 H 07/20/24 18:23 Blood Pressure Position Sitting 07/20/24 18:23 Pulse Oximetry 89 L 07/20/24 18:23 Oxygen Delivery Method Room Air 07/20/24 18:23 Oxygen Flow Rate 0 07/20/24 18:23 Pain Level 8 07/20/24 18:23 Medical Decision Making Imaging Data Radiologic Study: Radiologist's impression: PROCEDURE INFORMATION: Exam: CTA Chest With Contrast Exam date and time: 07/20/2024 7:39 PM Age: 58 years old Clinical indication: Shortness of breath; Patient HX: SOB in PT with primary lung cancer TECHNIQUE: Imaging protocol: Comp uted tomographic angiography of the chest with contrast. Exam focused on the arteries. 3D rendering (Not supervised by radiologist): MIP and/or 3D reconstructed images were created by the technologist. Radiation optimization: All CT scans at this facility use at least one of these dose optimization techniques: automated exposure control; mA and/or kV adjustment per patient size (includes targeted exams where dose is matched to clinical indication); or iterative reconstruction. Contrast material: [id number]; Contrast volume: 65 ml; Contrast route: INTRAVENOUS (IV); COMPARISON: CT CHEST PE CTA 11/14/2023 10:57 AM FINDINGS: Pulmonary arteries: No pulmonary embolism identified. Aorta: No thoracic aortic aneurysm or dissection. Thyroid: Thyroid gland partially excluded from view but grossly unremarkable through its visualized portion. Lungs: Large lobulated pulmonary mass in the right upper lobe with associated confluent satellite lesions measuring approximately 7.5 cm x 7.7 cm x 7.3 cm ag gregate dimension with central extension to the pulmonary hilum and encasement of right upper lobe bronchial and vascular structures. Known history of primary lung cancer by report. No pulmonary consolidation. Partial opacification bronchial structures in the lower lung zones bilaterally. Pleural spaces: No pleural effusion or pneumothorax. No pleural effusion or pneumothorax Heart: Normal-sized heart. Lymph nodes: Soft tissue prominence at the right pulmonary hilum representing central extension of tumor and/or confluent metastatic adenopathy. Otherwise, no mediastinal or left hilar adenopathy demonstrated. Bones/joints: No acute fracture seen among the bones of the chest. Soft tissues: No gross soft tissue mass or fluid collection seen in the chest wall. IMPRESSION: 1. Large lobulated pulmonary mass in the right upper lobe with associated confluent satellite lesions measuring approximately 7.5 cm x 7.7 cm x 7.3 cm aggregate dimension with central extension to the pulmonary hilum and encasement of right upper lobe bronchial and vascular structures. Known history of primary lung cancer by report. Of note, there has been an obvious morphologic change since the comparison exam from November 14, 2023 when this finding appeared as a large solitary mass. 2. Partial opacification of bronchial structures through the lower lung zones bilaterally. Although nonspecific, bronchitis or aspiration would be considered primarily. Endobronchial extension of tumor is considered less likely given bilateral symmetry. Quality:SDOH Health Related Social Needs: No Data to Display PFSH All Active Problems (Updated 07/20/24 @ 22:29 by Gwen Long) Acute exacerbation of chronic obstructive pulmonary disease (Acute) Chest pain, pleuritic (Acute) Post-obstructive pneumonia due to foreign body aspiration (Acute) Metastatic primary lung cancer (Chronic) High blood sugar (Acute) Thrush of mouth and esophagus (Acute) COPD (chronic obstructive pulmonary disease) (Chronic) Pulmonary nodule (Acute) Nicotine dependence, cigarettes, uncomplicated (Acute) Mass of upper lobe of right lung (Acute) Concussion (Acute) Dizziness (Acute) Anxiety (Chronic) Lesion of ulnar nerve (Acute) Ovarian cyst (Acute) Fatigue (Acute) Depression (Chronic) Abdominal pain (Acute) Bursitis (Acute) Back pain (Acute) Pelvic pain (Acute) Medical History Constipation Bowel habit changes Exposure to viral hepatitis (Suspected) Generalized hyperhidrosis Myalgia Paresthesia of skin Epigastric pain Cervical dysplasia Surgical History H/O LEEP Family History Mother Cancer family history of CA Mother bladder questioning ovarian ca Uncle brain CA Grand father CA unknown origin. Social History Smoking/Tobacco Use Status: Former Tobacco Use Quit Date: 10/31/23 Smoking risk assessment performed?: Yes Alcohol Intake: current Alcohol Intake frequency: holidays/special occasions only Drug use: Never Substance use type: does not use Housing: house Do you feel safe at home: Yes Do you feel safe in your relationship?: Yes PAWSS Have you Been Recently Intoxicated or Drunk Within the Last 30 days?: No Have you Ever Experienced Previous Episodes of Alcohol Withdrawal?: No Have you ever Experienced Withdrawal Seizures?: No Have you ever Experienced Delirium Tremens(DT)s?: No Have you ever undergone Alcohol Rehabilitation Treatment (i.e, inpt ot outpatient treatment programs)?: No Have you ever Experienced Blackouts?: No Have you ever Combined Alcohol with other Downers within the last 90 days?: No Have you ever Combined Alcohol with any other Substance of Abuse during the last 90 days?: No Positive Blood Alcohol level on Presentation? [PCS.BAL]: No Evidence of Increased Autonomic Activity (i.e. HR>120, tremor, sweating, agitation, nausea)?: No Result: 0
[2024-07-20 18:51] LABS: Abs Immature Grans 0.06 10^3/uL (0.0-0.06); Absolute Basophil Count 0.03 10^3/uL (0.0-0.2); Absolute Lymphocyte Count 0.89 10^3/uL (1.2-3.4); Absolute Neutrophil Count 10.86 10^3/uL (1.2-6.7); Basophils % 0.2 %; HCT 49.7 % (36.0-46.0); HGB 16.8 g/dL (11.2-15.7); Immature Grans % 0.5 %; Lymphocytes % 7.1 %; MCH 32.1 pg (27.0-33.0); MCHC 33.8 % (32.0-36.0); MCV 95 fL (80-95); MPV 8.3 fL (8.0-11.0); Monocytes % 5.4 %; Neutrophils % 86.8 %; Platelet Count 467 10^3/uL (130-400); RBC 5.24 10^6/uL (3.93-5.22); RDW 13.9 % (11.7-14.6); RDW-SD 48.9 fL; WBC 12.51 10^3/uL (4.4-10.8)
[2024-07-20 19:02] LABS: Absolute Monocyte Count 0.68 10^3/uL (0.1-0.8)
[2024-07-20 19:13] LABS: Anion Gap 7.4 mmol/L (3-11); BUN 13 mg/dL (7-18); CO2 32.6 mmol/L (21.0-32.0); CREATININE 0.7 mg/dL (0.55-1.02); Calcium 9.6 mg/dL (8.5-10.1); Chloride 100 mmol/L (98-107); Estimated GFR 99.57 (mL/min/1.73m2); Glucose 151 mg/dL (74-106); NT-proBNP 88 pg/mL (<300); Sodium 140 mmol/L (136-145); Troponin I 9 ng/L (<or=51)
[2024-07-20] MEDS: Normal Saline - Diluent 50 ML VIAL IJ (19:36)
[2024-07-20] MEDS: Omnipaque 350 MG/ML 100 ML BTL IJ (19:42)
--- NOTE | 2024-07-20 20:19 | DI.VRAD_ITS ---
PROCEDURE INFORMATION: Exam: CTA Chest With Contrast Exam date and time: 07/20/2024 7:39 PM Age: 58 years old Clinical indication: Shortness of breath; Patient HX: SOB in PT with primary lung cancer TECHNIQUE: Imaging protocol: Computed tomographic angiography of the chest with contrast. Exam focused on the arteries. 3D rendering (Not supervised by radiologist): MIP and/or 3D reconstructed images were created by the technologist. Radiation optimization: All CT scans at this facility use at least one of these dose optimization techniques: automated exposure control; mA and/or kV adjustment per patient size (includes targeted exams where dose is matched to clinical indication); or iterative reconstruction. Contrast material: [id number]; Contrast volume: 65 ml; Contrast route: INTRAVENOUS (IV); COMPARISON: CT CHEST PE CTA 11/14/2023 10:57 AM FINDINGS: Pulmonary arteries: No pulmonary embolism identified. Aorta: No thoracic aortic aneurysm or dissection. Thyroid: Thyroid gland partially excluded from view but grossly unremarkable through its visualized portion. Lungs: Large lobulated pulmonary mass in the right upper lobe with associated confluent satellite lesions measuring approximately 7.5 cm x 7.7 cm x 7.3 cm aggregate dimension with central extension to the pulmonary hilum and encasement of right upper lobe bronchial and vascular structures. Known history of primary lung cancer by report. No pulmonary consolidation. Partial opacification bronchial structures in the lower lung zones bilaterally. Pleural spaces: No pleural effusion or pneumothorax. No pleural effusion or pneumothorax. Heart: Normal-sized heart. Lymph nodes: Soft tissue prominence at the right pulmonary hilum representing central extension of tumor and/or confluent metastatic adenopathy. Otherwise, no mediastinal or left hilar adenopathy demonstrated. Bones/joints: No acute fracture seen among the bones of the chest. Soft tissues: No gross soft tissue mass or fluid collection seen in the chest wall. IMPRESSION: 1. Large lobulated pulmonary mass in the right upper lobe with associated confluent satellite lesions measuring approximately 7.5 cm x 7.7 cm x 7.3 cm aggregate dimension with central extension to the pulmonary hilum and encasement of right upper lobe bronchial and vascular structures. Known history of primary lung cancer by report. Of note, there has been an obvious morphologic change since the comparison exam from November 14, 2023 when this finding appeared as a large solitary mass. 2. Partial opacification of bronchial structures through the lower lung zones bilaterally. Although nonspecific, bronchitis or aspiration would be considered primarily. Endobronchial extension of tumor is considered less likely given bilateral symmetry. Dictated and Authenticated by: Jose Guadalupe Maloney MD. Ordering:SANJAY Hidalgo MD
[2024-07-20 20:34] LABS: Troponin I 7 ng/L (<or=51)
[2024-07-20 21:31] LABS: BE (Venous) 5 mmol/L (-2-3); HCO3 (Venous) 30 mmol/L (23-28); O2 Sat (Venous) 69 %; TCO2 (Venous) 26 mmol/L (24-29); pCO2 (Venous) 47 mmHg (41-51); pH (Venous) 7.41 (7.31-7.41); pO2 (Venous) 38 mmHg
[2024-07-20] MEDS: AZITHROMYCIN 500 MG in Normal Saline 250 ML 250 MG IVPB (21:32)
[2024-07-20] MEDS: Ipratropium 0.5 MG/2.5 ML UPD VIAL UPD (21:32)
[2024-07-20] MEDS: methylPREDNISolone SUCC 125 MG VIAL IVP (21:33)
[2024-07-20] MEDS: Levalbuterol 1.25 MG/3 ML UPD VIAL UPD (21:33)
--- NOTE | 2024-07-20 21:35 | W.PM.HP.N ---
Date of service: 07/20/24 Time of Service: 21:35 Assessment and Plan Assessment and plan (1) Acute exacerbation of chronic obstructive pulmonary disease: Start date: 07/20/24 Status: Acute Assessment and plan: This is a 58-year-old lady with chronic smoking and now metastatic primary lung cancer which is enlarging by imaging. She is on chemotherapy after being hesitant to initiate chemotherapy and and has had some side effect which are frustrating. She does occasionally smoke but quit in October 2023. This was after she had initiated chemotherapy. She was having increasing shortness of breath and cough over 2 weeks prior to admission and is slightly improved now on IV Solu-Medrol. She failed outpatient therapy with oral prednisone. IV Solu-Medrol will be continued with weaning back to prednisone once stable. She was initiated on IV Zithromax which could be switched to oral therapy at discharge. Her sputum produced is clear now with some production after more aggressive nebulizer treatment. She does also use nebulizers at home. She has O2 at home and does not require continuous O2 as she does now. Hopefully we can wean her oxygen back to her baseline before discharge. She is a full code. (2) Metastatic primary lung cancer: Status: Chronic Assessment and plan: Continue outpatient follow-up with oncology as planned with plan to resume chemotherapy. (3) Anxiety: Status: Chronic Assessment and plan: Continue outpatient anxiolytic as needed. Patient does have problems coping with her present disease and being on toxic chemotherapy which goes against her usual thought process. She does not appear to be severely depressed. History of Present Illness History of Present Illness Chief Complaint: Dyspnea at rest Narrative: This is a 58-year-old female patient who has a known right upper lobe lung cancer being treated with chemotherapy recently on prednisone with increasing shortness of breath over the last 2 to 3 weeks and now shortness of breath at rest. She has had a dry cough. She was evaluated in the ED and found to be slightly more hypoxic than usual on home O2 only at night. She reports quitting tobacco use in October 2023 though she has occasional slips. There has been some ambivalence of treating her cancer diagnosed as a lung nodule and 2021 and it appears to have increased in size by imaging. He did have biopsy late 2022 and treatment initiated early 2023. Oncology at [facility] did recommend admission for COPD exacerbation with increased oxygen needs and shortness of breath with more aggressive steroid treatment with Solu-Medrol. She did receive 125 mg of IV Solu-Medrol in the ED and this will be continued at 40 mg IV every 8 hours. She is having slight production of her sputum with clear appearance and is not as dyspneic at rest. She also was started on IV Zithromax and will be on more aggressive nebulizer treatments with DuoNeb 4 times daily and levalbuterol every 2 hours as needed. She is planning on to continue chemotherapy. She postponed diagnosis and treatment initially because she believed and only putting natural products in her body and did a cleansing prior to biopsy and initiation of treatment. She is a full code. Review of Systems Narrative: 13 point review of systems otherwise unrevealing or stable. She has had a little weight loss. Patient has had some GI dysfunction with her chemotherapy with some abdominal bloating and did have pneumonitis with her initial chemotherapy. PFSH All Active Problems Acute exacerbation of chronic obstructive pulmonary disease (Acute) Chest pain, pleuritic (Acute) Post-obstructive pneumonia due to foreign body aspiration (Acute) Metastatic primary lung cancer (Chronic) High blood sugar (Acute) Thrush of mouth and esophagus (Acute) COPD (chronic obstructive pulmonary disease) (Chronic) Pulmonary nodule (Acute) Nicotine dependence, cigarettes, uncomplicated (Acute) Mass of upper lobe of right lung (Acute) Concussion (Acute) Dizziness (Acute) Anxiety (Chronic) Lesion of ulnar nerve (Acute) Ovarian cyst (Acute) Fatigue (Acute) Depression (Chronic) Abdominal pain (Acute) Bursitis (Acute) Back pain (Acute) Pelvic pain (Acute) Medical History Constipation Bowel habit changes Exposure to viral hepatitis (Suspected) Generalized hyperhidrosis Myalgia Paresthesia of skin Epigastric pain Cervical dysplasia Surgical History H/O LEEP Family History Mother Cancer family history of CA Mother bladder questioning ovarian ca Uncle brain CA Grand father CA unknown origin. Social History Smoking/Tobacco Use Status: Former Tobacco Use Quit Date: 10/31/23 Smoking risk assessment performed?: Yes Alcohol Intake: current Alcohol Intake frequency: holidays/special occasions only Drug use: Never Substance use type: does not use Housing: house Do you feel safe at home: Yes Do you feel safe in your relationship?: Yes Meds Allergies and Home Medications Allergies Allergy/AdvReac Type Severity Reaction Status Date / Time pseudoephedrine (From AdvReac Unknown Other (See Verified 07/20/24 17:49 Sudafed) Comment) narcotics AdvReac Unknown gi upset Uncoded 07/20/24 17:49 Home Medications ?Medication ?Instructions ?Recorded ?Confirmed ?Type acetaminophen 325 mg tablet 325 mg PO Q6H PRN 01/05/22 07/20/24 History (Tylenol) cholecalciferol (vitamin D3) 25 125 mcg PO DAILY 01/05/22 07/20/24 History mcg (1,000 unit) capsule clotrimazole 10 mg john 10 mg mucous membrane ONCE #30 tabs 08/22/23 07/20/24 Rx guaifenesin 600 mg tablet, 600 mg PO Q12H PRN 08/22/23 07/20/24 History extended release 12 hr (Mucinex) naproxen sodium 220 mg tablet 220 mg PO Q12H PRN 09/28/23 07/20/24 History (Aleve) fluticasone 250 mcg-salmeterol 50 1 inh inhalation BID #60 ea 11/15/23 07/20/24 Rx mcg/dose blistr powdr for inhalation (Advair Diskus) lorazepam 0.5 mg tablet 0.5 mg PO DAILY PRN anxiety #10 11/15/23 07/20/24 Rx tabs albuterol sulfate 90 mcg/actuation See Rx Instructions .Route 12/12/23 07/20/24 Rx aerosol inhaler (Ventolin HFA) .COMPLEX #18 grams clotrimazole 10 mg john 10 mg mucous membrane TID #30 tabs 12/12/23 07/20/24 Rx fluticasone propionate 115 2 puff inhalation BID #12 grams 12/12/23 07/20/24 Rx mcg-salmeterol 21 mcg/actuation HFA inhaler (Advair HFA) albuterol sulfate 2.5 mg/3 mL 2.5 mg (3 mL) inhalation Q4H PRN 12/22/23 07/20/24 Rx (0.083 %) solution for nebulization shortness of breath or wheezing #540 mL ondansetron 4 mg disintegrating 4 mg PO Q8H 04/24/24 07/20/24 History tablet polyethylene glycol 3350 17 17 g PO DAILY PRN constipation 04/25/24 07/20/24 Rx gram/dose oral powder (Miralax) #238 grams Bacillus coagulans-inulin 1 1 cap PO DAILY 05/23/24 07/20/24 History billion cell-250 mg capsule (Probiotic with Prebiotic) ipratropium 20 mcg-albuterol 100 1 puff inhalation Q6H 05/23/24 07/20/24 History mcg/actuation mist for inhalation (Combivent Respimat) lactobacillus combination no.9 4 4,000 mmu cells PO DAILY 05/23/24 07/20/24 History billion cell capsule (Adult 50 Plus Probiotic) ipratropium bromide 0.02 % 2.5 ml inhalation Q6H PRN #62.5 mL 07/14/24 07/20/24 Rx solution for inhalation Exam Narrative Exam Narrative: General: Patient appears appropriate for age, alert and oriented x 3 and in no acute distress. She is sitting up in bed with some coughing but speaking in normal sentences. She is not tripoding. HEENT: Normocephalic, eyes with pupils equal and reactive to light symmetrically, extraocular movement intact and sclera anicteric. Oropharynx with moist mucosa and fair dentition. Neck: Supple without JVD. Back: Normal posture, no CVA tenderness. Lungs: Decreased aeration throughout with slight increased expiratory phase but no expiratory wheeze. Poor air movement. No focalizing rales or rhonchi. Breast: Exam deferred. Heart: Regular rate and rhythm with no murmurs or gallops appreciated. Abdomen: Obese contour, soft to palpation with no guarding or rebound. No palpable hepatosplenomegaly. Bowel sounds positive in all quadrants. Genitalia/rectal: Exam deferred. Extremities: Without clubbing, cyanosis or pitting edema. Peripheral pulses intact. Skin: Normal color, warm and dry. Neuro: Cranial nerves II through XII gross intact, no focalized motor deficits. No tremor. Psych: Slightly anxious with pressured speech, normal mood. No abnormal thought processes. Remote and recent memory intact. Patient does have some element of denial and some anger and frustration manifested. Results Imaging Imaging Studies: Exam: CTA Chest With Contrast Exam date and time: 07/20/2024 7:39 PM Age: 58 years old Clinical indication: Shortness of breath; Patient HX: SOB in PT with primary lung cancer COMPARISON: CT CHEST PE CTA 11/14/2023 10:57 AM FINDINGS: Pulmonary arteries: No pulmonary embolism identified. Aorta: No thoracic aortic aneurysm or dissection. Thyroid: Thyroid gland partially excluded from view but grossly unremarkable through its visualized portion. Lungs: Large lobulated pulmonary mass in the right upper lobe with associated confluent satellite lesions measuring approximately 7.5 cm x 7.7 cm x 7.3 cm aggregate dimension with central extension to the pulmonary hilum and encasement of right upper lobe bronchial and vascular structures. Known history of primary lung cancer by report. No pulmonary consolidation. Partial opacification bronchial structures in the lower lung zones bilaterally. Pleural spaces: No pleural effusion or pneumothorax. No pleural effusion or pneumothorax. Heart: Normal-sized heart. Lymph nodes: Soft tissue prominence at the right pulmonary hilum representing central extension of tumor and/or confluent metastatic adenopathy. Otherwise, no mediastinal or left hilar adenopathy demonstrated. Bones/joints: No acute fracture seen among the bones of the chest. Soft tissues: No gross soft tissue mass or fluid collection seen in the chest wall. IMPRESSION: 1. Large lobulated pulmonary mass in the right upper lobe with associated confluent satellite lesions measuring approximately 7.5 cm x 7.7 cm x 7.3 cm aggregate dimension with central extension to the pulmonary hilum and encasement of right upper lobe bronchial and vascular structures. Known history of primary lung cancer by report. Of note, there has been an obvious morphologic change since the comparison exam from November 14, 2023 when this finding appeared as a large solitary mass. 2. Partial opacification of bronchial structures through the lower lung zones bilaterally. Although nonspecific, bronchitis or aspiration would be considered primarily. Endobronchial extension of tumor is considered less likely given bilateral symmetry. Labs 07/20/24 18:45 07/20/24 18:45 Labs: Laboratory Results - last 24 hr 07/20/24 07/20/24 07/20/24 18:45 20:09 21:20 WBC 12.51 H RBC 5.24 H Hgb 16.8 H Hct 49.7 H MCV 95 MCH 32.1 MCHC 33.8 RDW 13.9 Plt Count 467 H MPV 8.3 Immature Gran % 0.5 Neutrophils % 86.8 Lymphocytes % 7.1 Monocytes % 5.4 Eosinophils % 0.0 Basophils % 0.2 Nucleated RBC % 0.0 Absolute Neutrophils 10.86 H Absolute Lymphocytes 0.89 L Absolute Monocytes 0.68 Absolute Eosinophils 0.00 Absolute Basophils 0.03 VBG pH 7.41 VBG pCO2 47 VBG pO2 38 VBG HCO3 30 H VBG Total CO2 26 VBG O2 Saturation 69 VBG Base Excess 5 H Sodium 140 Potassium 4.0 Chloride 100 Carbon Dioxide 32.6 H Anion Gap 7.4 BUN 13 Creatinine 0.7 Est GFR (CKD-EPI 2020) 99.57 Glucose 151 H Calcium 9.6 Troponin I 9 7 NT-Pro-B Natriuret Pep 88 Last Vital Signs Temp 36.9 C 07/20/24 18:23 Pulse 120 H 07/20/24 21:32 Resp 26 H 07/20/24 21:30 BP 128/83 07/20/24 19:33 Pulse Ox 94 07/20/24 21:32 PAWSS Have you Been Recently Intoxicated or Drunk Within the Last 30 days?: No Have you Ever Experienced Previous Episodes of Alcohol Withdrawal?: No Have you ever Experienced Withdrawal Seizures?: No Have you ever Experienced Delirium Tremens(DT)s?: No Have you ever undergone Alcohol Rehabilitation Treatment (i.e, inpt ot outpatient treatment programs)?: No Have you ever Experienced Blackouts?: No Have you ever Combined Alcohol with other Downers within the last 90 days?: No Have you ever Combined Alcohol with any other Substance of Abuse during the last 90 days?: No Positive Blood Alcohol level on Presentation? [PCS.BAL]: No Evidence of Increased Autonomic Activity (i.e. HR>120, tremor, sweating, agitation, nausea)?: No Result: 0 Time Spent Time spent with Patient: >75 minutes Time was spent: preparing to see the patient(eg.review tests), obtaining and/or reviewing separately otained hiistory, ordering medications,tests, procedures, indepentently interpreting results, counseling the patient and care coordination
[2024-07-20 21:46] LABS: Troponin I 9 ng/L (<or=51)
[2024-07-20] MEDS: Acetaminophen 500 MG TAB (22:43)
[2024-07-20] MEDS: Pantoprazole 40 MG VIAL IVP (23:12)
--- NOTE | 2024-07-20 23:22 | W.PC.ACHO ---
Registration Status: Primary Language: Preferred Language: ED Information & Data Chief Complaint RespSymp 07/20/24 18:32 Triage Note Patient complaining of SOB 07/20/24 17:46 [address] Medical / Surgical History (Last Reviewed 07/20/24 @ 21:39 by Ronny Sultana) Constipation Bowel habit changes Exposure to viral hepatitis Generalized hyperhidrosis Myalgia Paresthesia of skin Epigastric pain Cervical dysplasia (Last Reviewed 07/20/24 @ 21:39 by Ronny Sultana) H/O LEEP Most Recent Vital Signs Temperature 36.9 C 07/20/24 18:23 Temperature Source Temporal Artery Scan 07/20/24 18:23 Pulse 120 H 07/20/24 21:32 Pulse 119 H 07/20/24 21:30 Respiratory Rate 26 H 07/20/24 21:30 Respiratory Effort Normal, Non-Labored, Short of Breath 07/20/24 18:23 Respiratory Depth Normal 07/20/24 18:23 Blood Pressure 128/83 07/20/24 19:33 Blood Pressure Mean 97 07/20/24 19:33 Blood Pressure Position Sitting 07/20/24 18:23 Pulse Oximetry 94 07/20/24 21:32 Oxygen Delivery Method Nasal Cannula 07/20/24 21:33 Oxygen Flow Rate 0 07/20/24 21:32 Pain Level 8 07/20/24 18:23 Allergies pseudoephedrine (From Sudafed) Adverse Reaction (Unknown, Verified 07/20/24 17:49) Other (See Comment) narcotics Adverse Reaction (Unknown, Uncoded 07/20/24 17:49) gi upset Precautions Isolation PUI 07/20/24 18:23 Active Medications Generic Name Dose Route Start Last Admin Trade Name Freq PRN Reason Stop Dose Admin Iohexol 100 ml 07/20/24 19:45 07/20/24 19:42 Omnipaque 350 Mg/Ml 100 Ml Btl IJ 08/19/24 23:59 65 ml DIRECTED FARHAD Administration Pantoprazole Sodium 40 mg 07/20/24 22:00 07/20/24 23:12 Pantoprazole 40 Mg Vial IVP 40 mg Q24H FARHAD Administration Sodium Chloride 50 ml 07/20/24 19:45 07/20/24 19:36 Normal Saline - Diluent 50 Ml Vial IJ 50 ml .FOR DI USE FARHAD Administration IV IV Catheter Type [Right Saline Lock Antecubital] IV Catheter Gauge [Right 20 Antecubital] Diagnostics 07/20/24 07/20/24 07/20/24 Range/Units 21:20 20:09 18:45 WBC 12.51 H (4.4-10.8) 10^3/uL RBC 5.24 H (3.93-5.22) 10^6/uL Hgb 16.8 H (11.2-15.7) g/dL Hct 49.7 H (36.0-46.0) % MCV 95 (80-95) fL MCH 32.1 (27.0-33.0) pg MCHC 33.8 (32.0-36.0) % RDW 13.9 (11.7-14.6) % Plt Count 467 H (130-400) 10^3/uL MPV 8.3 (8.0-11.0) fL Immature Gran % 0.5 % Neutrophils % 86.8 % Lymphocytes % 7.1 % Monocytes % 5.4 % Eosinophils % 0.0 % Basophils % 0.2 % Nucleated RBC % 0.0 (0.0-0.3) % Absolute Neutrophils 10.86 H (1.2-6.7) 10^3/uL Absolute Lymphocytes 0.89 L (1.2-3.4) 10^3/uL Absolute Monocytes 0.68 (0.1-0.8) 10^3/uL Absolute Eosinophils 0.00 (0.0-0.7) 10^3/uL Absolute Basophils 0.03 (0.0-0.2) 10^3/uL VBG pH 7.41 (7.31-7.41) VBG pCO2 47 (41-51) mmHg VBG pO2 38 mmHg VBG HCO3 30 H (23-28) mmol/L VBG Total CO2 26 (24-29) mmol/L VBG O2 Saturation 69 % VBG Base Excess 5 H (-2-3) mmol/L Sodium 140 (136-145) mmol/L Potassium 4.0 (3.5-5.1) mmol/L Chloride 100 (98-107) mmol/L Carbon Dioxide 32.6 H (21.0-32.0) mmol/L Anion Gap 7.4 (3-11) mmol/L BUN 13 (7-18) mg/dL Creatinine 0.7 (0.55-1.02) mg/dL Est GFR (CKD-EPI 2020) 99.57 (mL/min/1.73m2) Glucose 151 H (74-106) mg/dL Calcium 9.6 (8.5-10.1) mg/dL Troponin I 9 7 9 (<or=51) ng/L NT-Pro-B Natriuret Pep 88 (<300) pg/mL Intake and Output - 24 Hour Total 07/20/24 17:43 thru 07/20/24 22:33 Intake Total 270 Balance 270 Weight 54.431 kg Intake: IV 270 Falls Risk Assessment History of Falls No History 07/20/24 18:23 Contributing Factors No Factors 07/20/24 18:23 Ambulatory Aids Independent 07/20/24 18:23 Tubes/Lines None 07/20/24 18:23 Gait Evaluation No gait disturbance 07/20/24 18:23 Cognition No cognitive impairment 07/20/24 18:23 Fall Total Score 0 07/20/24 18:23 Level of Risk Standard/Low Risk 07/20/24 18:23 Problems (Last Reviewed 07/20/24 @ 21:39 by Ronny Sultana) Acute exacerbation of chronic obstructive pulmonary disease (Acute) Metastatic primary lung cancer (Chronic) Anxiety (Chronic) v v v v v v v v v Sending and/or Receiving Nurses: Please use comment section below to note any information pertinent to the patient hand-off not included above. Information / Comments:Pt arrived to ED from home 6 days SOB. Hx of lung cancer 7x7x7 mass center of chest. Sat. at 92-94% on 1.5L NC. No edema, no skin issues att. A&O x 3. Being transfered to med/surg rm 225. Report received from: Matilde Marinelli, [employer] nurse.
[2024-07-21] VITALS (15 sets, daily range): BP systolic 106–124; BP diastolic 62–82; PULSE 102–119; RESP 2–20; TEMP 36.5–37.1; O2SAT 89–95
[2024-07-21] MEDS: Enoxaparin 40 MG/0.4 ML SYR SC (00:40)
[2024-07-21] MEDS: Ipratropium 0.5 MG/2.5 ML UPD VIAL IH ×2 (00:48→05:43)
[2024-07-21] MEDS: Normal Saline Flush 10 ML SYR IVP ×4 (00:50→23:34)
[2024-07-21] MEDS: LORazepam 0.5 MG TAB PO ×3 (01:19→20:08)
[2024-07-21] MEDS: Mylanta Suspension 30 ML CUP PO (01:20)
[2024-07-21] MEDS: guaiFENesin 600 MG TABCR PO ×3 (01:21→20:09)
[2024-07-21] MEDS: methylPREDNISolone SUCC 40 MG VIAL IVP (05:51)
[2024-07-21 06:42] LABS: HCT 44.7 % (36.0-46.0); HGB 15.3 g/dL (11.2-15.7); MCH 32.2 pg (27.0-33.0); MCHC 34.2 % (32.0-36.0); MCV 94 fL (80-95); MPV 8.7 fL (8.0-11.0); Platelet Count 493 10^3/uL (130-400); RBC 4.75 10^6/uL (3.93-5.22); RDW-SD 48.7 fL; WBC 10.79 10^3/uL (4.4-10.8)
[2024-07-21 07:00] LABS: ALT 26 U/L (14-59); AST 20 U/L (15-37); Albumin 3.4 g/dL (3.4-5.0); Alkaline Phosphatase 98 U/L (46-116); Anion Gap 4.4 mmol/L (3-11); BUN 18 mg/dL (7-18); Bilirubin, Total 0.48 mg/dL (0.2-1.0); CO2 32.6 mmol/L (21.0-32.0); CREATININE 0.7 mg/dL (0.55-1.02); Calcium 9.3 mg/dL (8.5-10.1); Chloride 102 mmol/L (98-107); Estimated GFR 99.57 (mL/min/1.73m2); Glucose 139 mg/dL (74-106); Magnesium 1.9 mg/dL (1.8-2.4); Potassium 4.3 mmol/L (3.5-5.1); Sodium 139 mmol/L (136-145); Total Protein 7.1 g/dL (6.4-8.2)
[2024-07-21] MEDS: Cholecalciferol (Vitamin D3) 1,000 UNIT TAB 5000 UNITS PO (07:57)
[2024-07-21] MEDS: Acetaminophen 325 MG TAB PO ×3 (07:57→20:08)
[2024-07-21] MEDS: predniSONE 20 MG TAB 40 MG PO (07:57)
[2024-07-21] MEDS: Lactobacillus Acidophilus CAP 1 CAP PO (07:57)
[2024-07-21] MEDS: Azithromycin 250 MG TAB PO (07:57)
[2024-07-21] MEDS: Budesonide/Formoterol 160/4.5 6 GM 60 PUFF INH IH ×2 (08:18→20:41)
--- NOTE | 2024-07-21 09:09 | PDOC.CMIN ---
Date of service: 07/21/24 Time of Service: 09:34 Care Management Initial Assmt Initial Assessment Reason for Hospitalization: R upper lobe lung CA, COPD exacerbation Functional Status/Living Situation Patient Presentation: Nakita was sitting up in bed when CM met with her. She stated that she lives with her 16yo daughter, who is homeschooling currently. Nakita reported that she is very independent, and has stable housing at this time, although she stated that she needs two mattresses- one for her and one for her daughter. She stated that money is tight because she is a single mother; she has six children and twelve grandchildren. CM sent a referral to [facility] to determine if there are any local resources that may be able to help. Per report, she is currently requiring .5LO2; she stated that she is hesitant to have the O2 weaned because she feels that she needs it. She reported that she has an appointment for chemotherapy tomorrow at 2pm, and she does not want to miss it. CM explained that she may be ready for discharge tomorrow, if she is able to be weaned off supplemental O2. She is unsure that this will happen prior to the appointment. CM will continue to follow. Town of Residence: [facility] Resides with: Child (16yo daughter) Natural Supports: Nakita has six children Employment Status: Unemployed Instrumental Activities of Daily Living (ADLs): Independent Medications Medication Management: No Issues/Barriers identified Advance Directives Advance Directives: Do you have an Advance Directive: N 01/10/22 12:55 AD On File at [facility]: N 01/10/22 12:55 Date Asked 07/18/24 07/18/24 12:16 AD Date Reviewed COLST On File at [facility] COLST Date Scanned Code Status Resuscitation Status Full Code Insurance Coverage/Financial Issues Insurance: [facility] Care Team Visit Care Team Role Provider Type Osvaldo Hatch Primary Care Provider NON-[facility] STAFF PHYSICIAN Gwen Long Emergency Provider NURSE PRACTITIONER Ronny Sultana Admit Provider NON-[facility] STAFF PHYSICIAN Attending Provider Discharge Potential Discharge Needs: PCP F/U Appt Anticipated Barriers to Discharge: None Identified Patient/Family Education Needs: Review discharge instructions, discuss Ask Me Three Transportation: Private vehicle Plan: Anticipate Nakita will return home once medically cleared. She will transport via private vehicle by family. She will follow up with her PCP and discharge plan of care. CM will continue to follow. Social Determinants of Health Screening Social Determinants of Health last assessed: 07/21/24 Will the Patient Participate in the Screening?: Yes Do you worry about having a steady place to live?: yes What is your living situation today?: I have housing today, but am worried about losing it Problems where you live: no known problems In the past 12 months, have you had to go without electric, gas, oil or water in your home?: yes Have you or anyone in your house had to go without enough food to eat?: no Has lack of transportation kept you from medical appointments or from doing things needed for daily living?: no Has anyone in your life made you feel unsafe or unsupported?: yes How hard is it for you to pay for the very basics like food, housing, medical care, and heating? Would you say it is:: Very hard Do you want help finding or keeping work or a job?: I do not need or want help If for any reason you need help with day-to-day activities such as bathing, preparing meals, shopping, managing finances, etc., do you get the help you need?: I don?t need any help How often do you feel lonely or isolated from those around you?: Never Do you speak a language other than Comoran at home?: No Does the patient want assistance with any of the above?: No Social Determinants of Health Comments(SDOH Details): Yes financial assistance. Can't work with thesehealth issues. Health Related Social Needs Health related social needs: housing instability, housed, with risk of homelessness (Z59.811), material hardship(utilities) (Z59.12) and problems related to housing/economic circumstances (Z59.89) [facility] All Active Problems (Updated 07/21/24 @ 14:33 by Sandi Mireles NP) History of tobacco abuse (Acute) Acute hypoxic respiratory failure (Acute) Acute exacerbation of chronic obstructive pulmonary disease (Acute) Chest pain, pleuritic (Acute) Post-obstructive pneumonia due to foreign body aspiration (Acute) Metastatic primary lung cancer (Chronic) High blood sugar (Acute) Thrush of mouth and esophagus (Acute) COPD (chronic obstructive pulmonary disease) (Chronic) Pulmonary nodule (Acute) Nicotine dependence, cigarettes, uncomplicated (Acute) Mass of upper lobe of right lung (Acute) Concussion (Acute) Dizziness (Acute) Anxiety (Chronic) Lesion of ulnar nerve (Acute) Ovarian cyst (Acute) Fatigue (Acute) Depression (Chronic) Abdominal pain (Acute) Bursitis (Acute) Back pain (Acute) Pelvic pain (Acute) Medical History Constipation Bowel habit changes Exposure to viral hepatitis (Suspected) Generalized hyperhidrosis Myalgia Paresthesia of skin Epigastric pain Cervical dysplasia Surgical History H/O LEEP Family History Mother Cancer family history of CA Mother bladder questioning ovarian ca Uncle brain CA Grand father CA unknown origin. Social History Smoking/Tobacco Use Status: Former Tobacco Use Quit Date: 10/31/23 Smoking risk assessment performed?: Yes Alcohol Intake: current Alcohol Intake frequency: holidays/special occasions only Drug use: Never Substance use type: does not use Housing: house Do you feel safe at home: Yes Do you feel safe in your relationship?: Yes
--- NOTE | 2024-07-21 10:53 | PHA.REVIEW2 ---
Pharmacy Admission Review Admission Clinical Review Admission Pharmacy Review: Acute exacerbation of chronic obstructive pulmonary disease (Acute) pseudoephedrine (From Sudafed) Adverse Reaction (Unknown, Verified 07/20/24 17:49) Other (See Comment) narcotics Adverse Reaction (Unknown, Uncoded 07/20/24 17:49) gi upset Resuscitation Status Full Code Height 5 ft 6 in Weight 52.3 kg Pharmacy Admission Review Renal Dosing Renal Dosing: BUN 18 mg/dL (7-18) 07/21/24 06:00 Creatinine 0.7 mg/dL (0.55-1.02) 07/21/24 06:00 Medications needing adjustments: Reviewed (CrCl 71.4 mL/min) List of meds needing interventions: Current medications are okay Anticoagulation Anticoagulation: Hgb 15.3 g/dL (11.2-15.7) 07/21/24 06:00 Hct 44.7 % (36.0-46.0) 07/21/24 06:00 Plt Count 493 10^3/uL (130-400) H 07/21/24 06:00 Creatinine 0.7 mg/dL (0.55-1.02) 07/21/24 06:00 DVT Prophylaxis: Reviewed (hgb decreased from 16.8, PLT slightly increased from 467) Medications: Enoxaparin (40mg daily) Relevant Labs Relevant Labs: Sodium 139 mmol/L (136-145) 07/21/24 06:00 Potassium 4.3 mmol/L (3.5-5.1) 07/21/24 06:00 Chloride 102 mmol/L (98-107) 07/21/24 06:00 Magnesium 1.9 mg/dL (1.8-2.4) 07/21/24 06:00 Electrolytes, C-Reactive P, ESR: Reviewed (glucose 139 at 0600 this AM) Cardiac Review Cardiac Review: Troponin I 9 ng/L (<or=51) 07/20/24 21:20 NT-Pro-B Natriuret Pep 88 pg/mL (<300) 07/20/24 18:45 Heart Rate 108 0717 Heart Rate 107 0549 Heart Rate 108 0543 Heart Rate 102 0338 BP, HR, EF%: Reviewed (BP WNL) QTc Review QTc: Reviewed (421 from 07/20/23) IV to PO Switch IV Medications: Reviewed (pantoprazole) Home Meds Home Med List reviewed: Intervened Relevent Home Meds Not ordered & why?: albuterol (PRN), bacillus probiotic (has order for lactobacillus), clotrimazole (filled 12/11 for 10DS), Advair HFA (substituted with Symbicort per pharmacy protocol) and naproxen (PRN) Took Advair Diskus off of home med list - list filled in November and has since been filling for Advair HFA Recently filled but not on home med list: sertraline, prednisone and folic acid. Reached out to nurse to confirm with patient. Waiting to hear back. Current Meds Current Medication Order Review: Intervened Comments: Had order for pantoprazole infusion and pantoprazole IVP daily. I discontinued order for infusion. Pharmacy Antibiotic Review Relevant Labs: WBC 10.79 10^3/uL (4.4-10.8) 07/21/24 06:00 Temperature 37 C Temperature 37 C Temperature 36.5 C Temperature 36.5 C Pharmacy Antibiotic Activity: C/S review and Reviewed, no change Comments: Patient currently on azithromycin 250mg PO BID, received 1 dose of IV azithromycin in the ED, for COPD exacerbation. WBC decreased from 12.51. Oxygen flow rate decreased to 0 this AM at 1045.
[2024-07-21] MEDS: Ipratropium/Albuterol 4 GM 120 PUFF INH IH ×3 (11:37→20:40)
[2024-07-21 11:38] LABS: Procalcitonin 1.62 ng/mL
[2024-07-21] MEDS: Pantoprazole 40 MG VIAL IVP (11:48)
--- NOTE | 2024-07-21 14:26 | PGE_ITS ---
Date of Service Date of service: 07/21/24 Time of Service: 14:27 Assessment and Plan Assessment and plan (1) Acute hypoxic respiratory failure: Status: Acute Assessment and plan: Multifactorial with a history of tobacco abuse, COPD, metastatic primary lung cancer which is enlarging by imaging. Continue treatment for COPD exacerbation with steroids and azithromycin as init iated in the emergency department Wean oxygen as able per protocol (2) Acute exacerbation of chronic obstructive pulmonary disease: Status: Acute Assessment and plan: no further wheezing noted. suspect most likely d/t increasing right lung mass She was having increasing shortness of breath and cough over 2 weeks prior to admission and is slightly improved after IV Solu-Medrol. continue prednisone 40 mg burst Continue Zithromax day 2 of 5 Wean oxygen as able (3) History of tobacco abuse: Status: Acute Assessment and plan: States she quit tobacco in October 2023 but evidently still occasionally smokes. (4) Metastatic primary lung cancer: Status: Chronic Assessment and plan: outpatient follow-up with oncology as planned with plan to resume chemotherapy. She has an appointment July 22 at 2 PM (5) Anxiety: Status: Chronic Assessment and plan: Will use lorazepam while hospitalized to help control her symptoms will add GI prophylaxis with pantoprazole daily discussed with DR Waldron Subjective Subjective Patient reports: tolerating liquids well, tolerating a regular diet (appetite poor d/t food options), voiding w/o difficulty, shortness of breath and afebrile Interval history since last seen: patient very anxious and upset about weaning of oxygen per protocol. feels shortness of breath pointing to her sternum, Exam Narrative Exam Narrative: Cachectic chronically and acutely ill-appearing female older than stated age sitting on her stretcher talking in full sentences agitated and anxious about weaning oxygen. Her skin is ashen warm and dry she is in no respiratory distress her breath sounds are diminished throughout no wheezing appreciated cardiovascular regular rate and rhythm she is tachycardic in the 110s neck with no JVD full range of motion, abdomen slightly distended soft nontender her extremities moves well with no peripheral edema Objective Last Vital Signs Temp 36.9 C 07/21/24 11:05 Pulse 119 H 07/21/24 11:05 Resp 20 07/21/24 11:05 BP 124/74 07/21/24 11:05 Pulse Ox 89 L 07/21/24 11:06 Laboratory Results - last 24 hr 07/20/24 07/20/24 07/20/24 18:45 20:09 21:20 WBC 12.51 H RBC 5.24 H Hgb 16.8 H Hct 49.7 H MCV 95 MCH 32.1 MCHC 33.8 RDW 13.9 Plt Count 467 H MPV 8.3 Immature Gran % 0.5 Neutrophils % 86.8 Lymphocytes % 7.1 Monocytes % 5.4 Eosinophils % 0.0 Basophils % 0.2 Nucleated RBC % 0.0 Absolute Neutrophils 10.86 H Absolute Lymphocytes 0.89 L Absolute Monocytes 0.68 Absolute Eosinophils 0.00 Absolute Basophils 0.03 VBG pH 7.41 VBG pCO2 47 VBG pO2 38 VBG HCO3 30 H VBG Total CO2 26 VBG O2 Saturation 69 VBG Base Excess 5 H Sodium 140 Potassium 4.0 Chloride 100 Carbon Dioxide 32.6 H Anion Gap 7.4 BUN 13 Creatinine 0.7 Est GFR (CKD-EPI 2020) 99.57 Glucose 151 H Calcium 9.6 Magnesium Total Bilirubin AST ALT Alkaline Phosphatase Troponin I 9 7 9 NT-Pro-B Natriuret Pep 88 Total Protein Albumin Procalcitonin 07/21/24 06:00 WBC 10.79 RBC 4.75 Hgb 15.3 Hct 44.7 MCV 94 MCH 32.2 MCHC 34.2 RDW 14.0 Plt Count 493 H MPV 8.7 Immature Gran % Neutrophils % Lymphocytes % Monocytes % Eosinophils % Basophils % Nucleated RBC % Absolute Neutrophils Absolute Lymphocytes Absolute Monocytes Absolute Eosinophils Absolute Basophils VBG pH VBG pCO2 VBG pO2 VBG HCO3 VBG Total CO2 VBG O2 Saturation VBG Base Excess Sodium 139 Potassium 4.3 Chloride 102 Carbon Dioxide 32.6 H Anion Gap 4.4 BUN 18 Creatinine 0.7 Est GFR (CKD-EPI 2020) 99.57 Glucose 139 H Calcium 9.3 Magnesium 1.9 Total Bilirubin 0.48 AST 20 ALT 26 Alkaline Phosphatase 98 Troponin I NT-Pro-B Natriuret Pep Total Protein 7.1 Albumin 3.4 Procalcitonin 1.62 PAWSS Have you Been Recently Intoxicated or Drunk Within the Last 30 days?: No Have you Ever Experienced Previous Episodes of Alcohol Withdrawal?: No Have you ever Experienced Withdrawal Seizures?: No Have you ever Experienced Delirium Tremens(DT)s?: No Have you ever undergone Alcohol Rehabilitation Treatment (i.e, inpt ot outpatient treatment programs)?: No Have you ever Experienced Blackouts?: No Have you ever Combined Alcohol with other Downers within the last 90 days?: No Have you ever Combined Alcohol with any other Substance of Abuse during the last 90 days?: No Positive Blood Alcohol level on Presentation? [PCS.BAL]: No Evidence of Increased Autonomic Activity (i.e. HR>120, tremor, sweating, agitation, nausea)?: Yes Result: 1 Time Spent with Patient Time Spent with Patient: 35-49 minutes Time was spent: preparing to see the patient(eg.review tests), obtaining and/or reviewing separately otained hiistory, ordering medications,tests, procedures, indepentently interpreting results and counseling the patient
[2024-07-21] MEDS: Benzonatate 200 MG CAP PO (21:24)
[2024-07-21] MEDS: guaiFENesin 200 MG/10 ML CUP 100 MG PO (21:25)
[2024-07-22] VITALS (7 sets, daily range): BP systolic 110–135; BP diastolic 73–89; PULSE 82–140; RESP 5–25; TEMP 36.4–37.8; O2SAT 88–99
[2024-07-22] MEDS: Acetaminophen 325 MG TAB PO (02:40)
[2024-07-22 06:35] LABS: HCT 48.7 % (36.0-46.0); HGB 16.3 g/dL (11.2-15.7); MCH 31.6 pg (27.0-33.0); MCHC 33.5 % (32.0-36.0); MCV 94 fL (80-95); MPV 8.7 fL (8.0-11.0); Platelet Count 539 10^3/uL (130-400); RBC 5.16 10^6/uL (3.93-5.22); RDW-SD 48.7 fL; WBC 20.54 10^3/uL (4.4-10.8)
[2024-07-22 06:55] LABS: ALT 24 U/L (14-59); AST 20 U/L (15-37); Albumin 3.4 g/dL (3.4-5.0); Alkaline Phosphatase 97 U/L (46-116); Anion Gap 3.3 mmol/L (3-11); BUN 21 mg/dL (7-18); Bilirubin, Total 0.41 mg/dL (0.2-1.0); CO2 34.7 mmol/L (21.0-32.0); CREATININE 0.8 mg/dL (0.55-1.02); Calcium 9.3 mg/dL (8.5-10.1); Chloride 101 mmol/L (98-107); Estimated GFR 84.82 (mL/min/1.73m2); Glucose 99 mg/dL (74-106); Potassium 4.3 mmol/L (3.5-5.1); Sodium 139 mmol/L (136-145); Total Protein 7.2 g/dL (6.4-8.2)
[2024-07-22] MEDS: guaiFENesin 200 MG/10 ML CUP 100 MG PO (08:05)
[2024-07-22] MEDS: Benzonatate 200 MG CAP PO (08:05)
[2024-07-22] MEDS: Budesonide/Formoterol 160/4.5 6 GM 60 PUFF INH IH (08:21)
[2024-07-22] MEDS: Ipratropium/Albuterol 4 GM 120 PUFF INH IH ×2 (08:21→12:11)
[2024-07-22] MEDS: Lactobacillus Acidophilus CAP 1 CAP PO (10:00)
[2024-07-22] MEDS: Cholecalciferol (Vitamin D3) 1,000 UNIT TAB 5000 UNITS PO (10:00)
[2024-07-22] MEDS: predniSONE 20 MG TAB 40 MG PO (10:01)
[2024-07-22] MEDS: Normal Saline Flush 10 ML SYR IVP (10:01)
[2024-07-22] MEDS: LORazepam 0.5 MG TAB PO (10:10)
[2024-07-22] MEDS: Azithromycin 250 MG TAB PO (10:13)
[2024-07-22] MEDS: Levalbuterol 1.25 MG/3 ML UPD VIAL UPD (10:59)
--- NOTE | 2024-07-22 11:52 | DSE_ITS ---
Date of service: 07/22/24 Time of Service: 11:52 DS: Diagnosis Discharge Diagnosis (1) Acute hypoxic respiratory failure: Status: Acute (2) Acute exacerbation of chronic obstructive pulmonary disease: Status: Acute (3) History of tobacco abuse: Status: Acute (4) Metastatic primary lung cancer: Status: Chronic (5) Anxiety: Status: Chronic Discharge Plan Disposition Patient Disposition: Home Condition: Improving Discharge Details Reason For Visit: Right upper lobe lung cancer, COPD exacerbation Admit Date/Time: 07/20/24 21:54 Admit Provider: Ronny Sultana Attending Provider: Ronny Sultana Primary Care Provider: Osvaldo Hatch Hospital Course Hospital Course: This is a 58-year-old female patient past medical history significant for tobacco abuse anxiety/depression, COPD, right upper lobe pulmonary lesion who presented to the emergency department with a 2-week history of cough and increased shortness of breath. She was found to be in acute hypoxic respiratory failure requiring 2 L of nasal cannula. A workup most consistent with COPD exacerbation she was started on azithromycin and prednisone and admitted under hospitalist services. Oxygen was weaned and she is satting 88 to 92% on room air. She reports improvement in her symptoms she is raising sputum. She has been eating and drinking with no abdominal pain nausea or vomiting. She is stable for discharge to home. She does have an oncology appointment this afternoon at 2 PM which she is hoping to attend. She is being discharged with prednisone to complete her 40 mg 5-day burst. She will also need 3 more days of azithromycin to complete 5-day course. She is being discharged to home with no new services by private vehicle discharge discussed with DR Waldron [place] Meds and New Rx's Prescriptions: New azithromycin 250 mg Tablet 250 mg PO DAILY Qty: 3 0RF prednisone 20 mg Tablet 40 mg PO DAILY Qty: 10 0RF pantoprazole 40 mg Tablet,Delayed Release (Dr/Ec) 40 mg PO DAILY@0730 Qty: 30 0RF benzonatate 200 mg Capsule 200 mg PO BID PRN PRN (Reason: Cough) Qty: 30 0RF levalbuterol HCl 1.25 mg/3 mL Solution For Nebulization 1.25 mg UPD Q2H PRN PRNQty: 60 0RF budesonide-formoterol [Symbicort] 160-4.5 mcg/actuation Hfa Aerosol Inhaler 1 puff inhalation BID Qty: 0 0RF Continued guaifenesin [Mucinex] 600 mg tablet extended release 12hr 600 mg PO Q12H PRN naproxen sodium [Aleve] 220 mg tablet 220 mg PO Q12H PRN polyethylene glycol 3350 [Miralax] 17 gram/dose powder 17 g PO DAILY PRN (Reason: constipation) Qty: 238 3RF Rx Instructions: take one dose at bedtime if no BM during the day Combivent Respimat 20-100 mcg/actuation mist 1 puff inhalation Q6H Probiotic with Prebiotic 1 billion-250 cell-mg capsule 1 cap PO DAILY Adult 50 Plus Probiotic 4 billion cell capsule 4,000 mmu cells PO DAILY Rx Instructions: administer with a meal cholecalciferol (vitamin D3) 25 mcg (1,000 unit) capsule 125 mcg PO DAILY acetaminophen [Tylenol] 325 mg tablet 325 mg PO Q6H PRN lorazepam 0.5 mg tablet 0.5 mg PO DAILY PRN (Reason: anxiety) Qty: 10 0RF Rx Instructions: Take 1/2 tablet to 1 tablet 15 minutes prior to infusion as needed albuterol sulfate [Ventolin HFA] 90 mcg/actuation HFA aerosol inhaler See Rx Instructions .ROUTE .COMPLEX Qty: 18 10RF Dose Instruction: INHALE TWO PUFFS BY MOUTH EVERY 4 TO 6 HOURS NEEDED FOR FOR SHORTNESS OF BREATH OR WHEEZE Rx Instructions: INHALE TWO PUFFS BY MOUTH EVERY 4 TO 6 HOURS NEEDED FOR FOR SHORTNESS OF BREATH OR WHEEZE fluticasone propion-salmeterol [Advair HFA] 115-21 mcg/actuation HFA aerosol inhaler 2 puff inhalation BID Qty: 12 12RF clotrimazole 10 mg john 10 mg mucous membrane TID Qty: 30 3RF albuterol sulfate 2.5 mg /3 mL (0.083 %) solution for nebulization 2.5 mg inhalation Q4H PRN (Reason: shortness of breath or wheezing) Qty: 540 5RF ondansetron 4 mg tablet,disintegrating 4 mg PO Q8H PRN ipratropium bromide 0.02 % solution 2.5 ml inhalation Q6H PRNQty: 62.5 0RF Rx Instructions: This can be combined with your albuterol nebulizer solution rizatriptan 10 mg tablet,disintegrating See Rx Instructions .ROUTE .COMPLEX Rx Instructions: take 1 tab at onset of headache; if no relief may repeat 1 tab after at least 2 hrs; max = 3 tabs/24 hr prednisone 10 mg tablet 20 mg PO DAILY Patient Comments: TAKE TWO TABLETS BY MOUTH EVERY DAY folic acid 1 mg tablet 1 mg PO DAILY Patient Comments: TAKE ONE TABLET BY MOUTH EVERY DAY Discharge Instructions Instructions: Chronic obstructive pulmonary disease (COPD), Lung Cancer (DC) Additional Instructions: please take all medications as directed continue your breathing exercises as directed drink at least 6-8 glasses of water daily to stay well hydrated. keep scheduled outpatient appointments as scheduled Referrals: Osvaldo Hatch [Primary Care Provider] - Activity:: Activity as Tolerated Equipment/Supplies:: No Equipment Needed Diet:: As Tolerated Discharge Orders Discharge Orders: Discharge Order (Routine); Ordered 07/22/24 Ordered By: Sandi Mireles DS: Summary Time Spent with Patient providing and/or coordinating discharge services: Greater than 30 minutes Status at Discharge Functional status at discharge: uses cane/walker Overall status at discharge: patient is progressing back to baseline Mental Status: mental status grossly normal Speech and Movement: speech and movement normal Mood: congruent mood Affect: normal affect Quality:SDOH Health Related Social Needs: Health related social needs housing instability, house d, with risk of homelessness (Z59.811), material hardship(utilities) (Z59.12), problems related to housing/economic circumstances (Z59.89) Exam Narrative Exam Narrative: thin chronically ill-appearing female older than stated age sitting on her stretcher talking in full sentences. Her skin is ashen warm and dry she is in no respiratory distress her breath sounds are diminished throughout no wheezing appreciated cardiovascular regular rate and rhythm she is tachycardic in the 110s neck with no JVD full range of motion, abdomen slightly distended soft nontender her extremities moves well with no peripheral edema Psych Mental Status: mental status grossly normal Speech and Movement: speech and movement normal Mood: congruent mood Affect: normal affect DS: Data Vitals/I&O Vitals and I&O: Vital Signs Temperature 36.4 C L 07/22/24 07:30 Temperature Source Temporal Artery Scan 07/22/24 07:30 Pulse 119 H 07/22/24 11:07 Pulse Rhythm Irregular 07/20/24 23:40 Pulse 119 H 07/20/24 21:30 Respiratory Rate 15 07/22/24 07:30 Respiratory Effort Short of Breath, Labored, Accessory Muscle Use, Nasal Flaring, Splinting 07/20/24 23:40 Respiratory Depth Retractive 07/20/24 23:40 Respiratory Pattern Irregular 07/20/24 23:40 Blood Pressure 111/76 07/22/24 07:30 Blood Pressure Mean 97 07/20/24 19:33 Blood Pressure Position Sitting 07/20/24 18:23 Pulse Oximetry 91 L 07/22/24 10:59 Oxygen Delivery Method Room Air 07/22/24 10:59 Oxygen Flow Rate 0 07/22/24 10:59 Pain Level 7 07/22/24 07:30 Comment RN notified 07/22/24 07:30 Intake & Output 07/21/24 07/21/24 07/22/24 11:59 23:59 11:59 Intake Total 1050 / 2460 1410 / 2460 Balance 1050 / 2460 1410 / 2460 Weight 52.3 kg Intake: IV Oral 1050 / 2450 1400 / 2450 Other: Urine Color Yellow Comment Pt voided unmeasured, unwitnessed amount into toilet. independent up to void Data Completed and Pending Labs on day of discharge: Labs from last 24 hours 07/22/24 06:15 WBC 20.54 H RBC 5.16 Hgb 16.3 H Hct 48.7 H MCV 94 MCH 31.6 MCHC 33.5 RDW 14.0 Plt Count 539 H MPV 8.7 Sodium 139 Potassium 4.3 Chloride 101 Carbon Dioxide 34.7 H Anion Gap 3.3 BUN 21 H Creatinine 0.8 Est GFR (CKD-EPI 2020) 84.82 Glucose 99 Calcium 9.3 Magnesium 2.0 Total Bilirubin 0.41 AST 20 ALT 24 Alkaline Phosphatase 97 Total Protein 7.2 Albumin 3.4 PFSH All Active Problems (Updated 07/21/24 @ 14:33 by Sandi Mireles NP) History of tobacco abuse (Acute) Acute hypoxic respiratory failure (Acute) Acute exacerbation of chronic obstructive pulmonary disease (Acute) Chest pain, pleuritic (Acute) Post-obstructive pneumonia due to foreign body aspiration (Acute) Metastatic primary lung cancer (Chronic) High blood sugar (Acute) Thrush of mouth and esophagus (Acute) COPD (chronic obstructive pulmonary disease) (Chronic) Pulmonary nodule (Acute) Nicotine dependence, cigarettes, uncomplicated (Acute) Mass of upper lobe of right lung (Acute) Concussion (Acute) Dizziness (Acute) Anxiety (Chronic) Lesion of ulnar nerve (Acute) Ovarian cyst (Acute) Fatigue (Acute) Depression (Chronic) Abdominal pain (Acute) Bursitis (Acute) Back pain (Acute) Pelvic pain (Acute) Medical History Constipation Bowel habit changes Exposure to viral hepatitis (Suspected) Generalized hyperhidrosis Myalgia Paresthesia of skin Epigastric pain Cervical dysplasia Surgical History H/O LEEP Family History Mother Cancer family history of CA Mother bladder questioning ovarian ca Uncle brain CA Grand father CA unknown origin. Social History Smoking/Tobacco Use Status: Former Tobacco Use Quit Date: 10/31/23 Smoking risk assessment performed?: Yes Alcohol Intake: current Alcohol Intake frequency: holidays/special occasions only Drug use: Never Substance use type: does not use Housing: house Do you feel safe at home: Yes Do you feel safe in your relationship?: Yes Time Spent with Patient Time Spent with Patient: 45-69 minutes Time was spent: preparing to see the patient(eg.review tests), ordering medications,tests, procedures, indepentently interpreting results and counseling the patient
[2024-07-22 15:50] LABS: Abs Immature Grans 0.11 10^3/uL (0.0-0.06)
[2024-07-22 16:02] LABS: Absolute Monocyte Count 3.08 10^3/uL (0.1-0.8); Absolute Neutrophil Count 13.76 10^3/uL (1.2-6.7); Atypical Lymphocytes % 7 %; Bands % 0 %
[2024-07-22 16:03] LABS: Diff Comment Manual Differential; RBC Morphology Normal
--- NOTE | 2024-07-22 16:07 | CMDISCH_ITS ---
Date of service: 07/22/24 Time of Service: 16:07 LACE Index Scoring Tool Questions: Length of Stay (in days): 2 Was the patient admitted via the E.D.?: Yes Comorbidities: Chronic Pulmonary Disease and Metastatic Solid Tumor E.D. Visits: 2 Answers: Total Score: 12 Risk of Readmission: High Risk Care Management Discharge Plan Reason for Hospitalization: R upper lobe lung cancer, COPD exacerbation Discharge Plan: Nakita returned home today with no new services. CM sent a referral to [facility] to help coordinate resources in the community. She was transported via private vehicle by her son. She will follow up with her PCP and discharge plan of care. She had an appointment at [facility] this afternoon, so she was happy to be discharged in time to go to her outpatient appointment. Patient/Family Education Needs: Review discharge instructions and limitations, discussion of self care needs including ask me three. SDOH Health Related Social Needs: Health related social needs housing instability, house d, with risk of homelessness (Z59.811), material hardship(utilities) (Z59.12), problems related to housing/economic circumstances (Z59.89)
== END 2024-07-22 13:56 | disposition home or self-care (01) | DRG 190 ==
LOC: ER 22:29 → MS 23:24
PROVIDERS: Nurse Practitioner Acute Care; Admitting Provider Family Medicine; Emergency Provider Nurse Practitioner Family; PCP Internal Medicine Medical Oncology; Visit Provider Family Medicine
DX: J44.1 Chronic obstructive pulmonary disease with (acute) exacerbation (principal); J96.01 Acute respiratory failure with hypoxia; C34.11 Malignant neoplasm of upper lobe, right bronchus or lung; C79.9 Secondary malignant neoplasm of unspecified site; F41.9 Anxiety disorder, unspecified; Z87.891 Personal history of nicotine dependence; Z79.899 Other long term (current) drug therapy; R73.9 Hyperglycemia, unspecified; F32.A Depression, unspecified; M54.9 Dorsalgia, unspecified
CPT/HCPCS: 00123; 36415; 71275; 80048; 80053; 82805; 84145; 85027; 93005; 94618; 94640; 96365; 96375; 99285; J1650; 83735; 83880; 84484; 85025; 93010; 94664; 94667; 94668; 94760; 99223; 99233; 99239; J0456; J2470; J2919; J3490; J7512; J7614; J7644

== ENCOUNTER 2024-08-26 14:20 | Outpatient (CLI) | payer MEDICAID, SELFPAY ==
[2024-08-26 14:33] LABS: Abs Immature Grans 0.11 10^3/uL (0.0-0.06); Absolute Basophil Count 0.03 10^3/uL (0.0-0.2); Absolute Eosinophil Count 0.02 10^3/uL (0.0-0.7); Absolute Lymphocyte Count 1.55 10^3/uL (1.2-3.4); Absolute Monocyte Count 1.07 10^3/uL (0.1-0.8); Basophils % 0.3 %; Eosinophils % 0.2 %; HCT 47.1 % (36.0-46.0); HGB 15.9 g/dL (11.2-15.7); Lymphocytes % 13.5 %; MCH 32.6 pg (27.0-33.0); MCHC 33.8 % (32.0-36.0); MCV 97 fL (80-95); MPV 8.5 fL (8.0-11.0); Monocytes % 9.3 %; Neutrophils % 75.7 %; Platelet Count 256 10^3/uL (130-400); RBC 4.88 10^6/uL (3.93-5.22); RDW 18.8 % (11.7-14.6); RDW-SD 66.1 fL; WBC 11.49 10^3/uL (4.4-10.8)
[2024-08-26 14:56] LABS: ALT 34 U/L (14-59); AST 17 U/L (15-37); Albumin 3.6 g/dL (3.4-5.0); Alkaline Phosphatase 98 U/L (46-116); Anion Gap 3.9 mmol/L (3-11); BUN 26 mg/dL (7-18); Bilirubin, Total 0.46 mg/dL (0.2-1.0); CO2 34.1 mmol/L (21.0-32.0); CREATININE 0.7 mg/dL (0.55-1.02); Chloride 101 mmol/L (98-107); Estimated GFR 99.57 (mL/min/1.73m2); FREE T4 1.09 ng/dL (0.76-1.46); Glucose 112 mg/dL (74-106); Magnesium 1.9 mg/dL (1.8-2.4); Potassium 3.8 mmol/L (3.5-5.1); Sodium 139 mmol/L (136-145); Total Protein 6.8 g/dL (6.4-8.2)
== END 2024-08-26 14:21 | disposition home or self-care (01) ==
LOC: LBO 14:21
PROVIDERS: PCP Internal Medicine Medical Oncology; Visit Provider Internal Medicine Medical Oncology
DX: C34.11 Malignant neoplasm of upper lobe, right bronchus or lung (principal)
CPT/HCPCS: 36415; 80053; 83735; 84439; 84443; 85025

== ENCOUNTER 2024-09-09 01:15 | Outpatient (CLI) | payer MEDICAID, SELFPAY ==
--- NOTE | 2024-09-09 | DI.CT_ITS ---
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 TECHNIQUE: Imaging Protocol: Axial computed tomography images with coronal and sagittal reformatted images were created and reviewed. Computer aided detection (CAD) was utilized. CONTRAST MATERIAL: Intravenous: Omnipaque 350 Contrast volume:100 ml Oral: yes / no COMPARISON: CT,PT PET CT EYE TO THIGH from 02/08/[address] CHEST W from 05/15/[address] CHEST PE CTA from 11/14/[address] CHEST W from 12/13/[address] ABDOMEN PELVIS W from 04/01/[address] CHEST PE CTA from 07/20/2024 FINDINGS: CHEST: Tracheobronchial tree: Patent. Pulmonary parenchyma: There has been significant interval decrease in size of the previously noted lo bulated mass in the right upper lobe. There is a small focus of masslike density in the superior seg ment of the right lower lobe which has also decreased in size. There is again attenuation of bronchi and vessels. Pleura: No effusion or pneumothorax. Mediastinum: Within normal limits. Aorta: Thoracic portion non-dilated. Pulmonary arteries: No visible emboli. Heart: No pericardial effusion. Bones: Unremarkable for age. No lytic or blastic lesions.No compression fractures. Soft tissues: Unremarkable. ABDOMEN and PELVIS: Liver: Normal density. No measurable mass. Gallbladder and biliary tract: No evidence of stones or wall thickening. No biliary dilatation. Pancreas: Normal density, no abnormal calcifications or inflammatory process. Spleen: Normal. Kidneys: Normal size, contour and axis. No radiodense stones. No obstructive uropathy. No suspicious masses seen. Adrenal glands: No masses seen. Aorta: Abdominal portion non-dilated. Atherosclerotic changes. Lymph nodes: Within normal limits. Soft tissues: Unremarkable. Bladder: Unremarkable. Bowel: No obstruction or bowel wall thickening. Peritoneal cavity: No ascites. No focal collection. No mesenteric inflammatory response. No free ai r. Bones: Degenerative changes in the lumbar spine. No destructive bony lesions. Reproductive organs: Within normal limits. IMPRESSION: Significant interval decrease in size of previously noted large mass in the right upper lobe with mely e involvement of the superior segment of the right lower lobe. No new findings. No evidence of metastatic disease in the abdomen or pelvis. RADIATION DOSE DELIVERED: 444.77mGy.cm Total DLP DATA REPOSITORY: All CT scans at this facility are submitted to the National Radiology Data Registry (NRDR) Dose Index Registry (DIR) with the [employer] ([employer]). RADIATION OPTIMIZATION: All CT scans at this facility use at least one of these dose optimization te chniques: automated exposure control; mA and/or kV adjustment per patient size (includes targeted exa ms where dose is matched to clinical indication); or iterative reconstruction.
[2024-09-09] MEDS: Barium Sulfate 2% W/V-Berry Smoothie 450 ML BTL PO ×2 (11:47→11:49)
[2024-09-09] MEDS: Normal Saline - Diluent 50 ML VIAL IJ (13:31)
[2024-09-09] MEDS: Omnipaque 350 MG/ML 100 ML BTL IJ (13:32)
== END 2024-09-09 01:35 ==
LOC: DI 01:15
PROVIDERS: PCP Internal Medicine Medical Oncology; Visit Provider Internal Medicine Medical Oncology
DX: C79.51 Secondary malignant neoplasm of bone (principal); C34.11 Malignant neoplasm of upper lobe, right bronchus or lung
CPT/HCPCS: 74177; 71260; J3490

== ENCOUNTER 2024-09-16 02:08 | Outpatient (CLI) | payer MEDICAID, SELFPAY ==
[2024-09-16 11:41] LABS: Absolute Basophil Count 0.03 10^3/uL (0.0-0.2); Absolute Lymphocyte Count 0.87 10^3/uL (1.2-3.4); Absolute Monocyte Count 0.63 10^3/uL (0.1-0.8); Basophils % 0.3 %; HCT 44.1 % (36.0-46.0); HGB 14.9 g/dL (11.2-15.7); Immature Grans % 1.1 %; Lymphocytes % 9.4 %; MCH 33.3 pg (27.0-33.0); MCHC 33.8 % (32.0-36.0); MCV 98 fL (80-95); MPV 8.4 fL (8.0-11.0); Monocytes % 6.8 %; Neutrophils % 82.4 %; Platelet Count 284 10^3/uL (130-400); RBC 4.48 10^6/uL (3.93-5.22); RDW 17.8 % (11.7-14.6); RDW-SD 64.7 fL; WBC 9.23 10^3/uL (4.4-10.8)
[2024-09-16 12:03] LABS: ALT 26 U/L (14-59); AST 10 U/L (15-37); Albumin 3.8 g/dL (3.4-5.0); Alkaline Phosphatase 103 U/L (46-116); Anion Gap 6.3 mmol/L (3-11); BUN 21 mg/dL (7-18); Bilirubin, Total 0.33 mg/dL (0.2-1.0); CO2 33.7 mmol/L (21.0-32.0); CREATININE 0.6 mg/dL (0.55-1.02); Calcium 9.6 mg/dL (8.5-10.1); Chloride 100 mmol/L (98-107); Estimated GFR 103.33 (mL/min/1.73m2); Glucose 136 mg/dL (74-106); Magnesium 1.8 mg/dL (1.8-2.4); Potassium 3.9 mmol/L (3.5-5.1); Sodium 140 mmol/L (136-145); TSH 0.25 uIU/mL (0.36-3.74); Total Protein 6.7 g/dL (6.4-8.2)
[2024-09-16 22:12] LABS: T4, Free 1.3 ng/dL (0.8-2.2)
== END 2024-09-16 02:09 | disposition home or self-care (01) ==
PROVIDERS: PCP Internal Medicine Medical Oncology; Visit Provider Internal Medicine Medical Oncology
DX: C34.11 Malignant neoplasm of upper lobe, right bronchus or lung (principal)
CPT/HCPCS: 36415; 80053; 83735; 84439; 84443; 85025

== ENCOUNTER 2024-09-29 11:12 | Emergency (ER) | payer MEDICAID, SELFPAY ==
[2024-09-29] VITALS (23 sets, daily range): BP systolic 127–144; BP diastolic 77–88; PULSE 91–109; RESP 5–33; TEMP 36.7; O2SAT 91–95
--- NOTE | 2024-09-29 11:15 | RT.EKG_ITS ---
APPROVED REPORT Exam: Resting ECG Reason for Exam: sob Patient Location: E HR:102 bpm ECG Measurements Heart Rate 102 AXIS IN 164 P 96 QRSd 96 QRS 91 QT 347 T 66 QTc 451 Conclusion Sinus tachycardia 102 no stemi
--- NOTE | 2024-09-29 11:30 | DI.CT_ITS ---
Exam(s) CT CHEST PE CTA EXAM: CT CHEST PE CTA CLINICAL HISTORY: R sided chest pain, wheeze, SOB. sp fall. TECHNIQUE: Imaging Protocol: Axial CT angiography was performed with multi-slice acquisition and mu lti-planar and/or 3D reconstructions. Lung Computer Aided Detection (CAD) was utilized. CONTRAST MATERIAL: Intravenous: Omnipaque 350 contrast volume:70 mL COMPARISON: CT CT CHEST/ABD/PEL W from 09/09/2024 FINDINGS: The examination is limited due to patient motion artifact. Tracheobronchial tree: Patent where visualized. No bronchiectasis. Pulmonary parenchyma: There has been no change in size of the right upper lobe mass. No focal consol idating infiltrates are present in the lungs. Mild emphysematous changes are present in the lungs. Pulmonary Arteries: No evidence of filling defect to suggest pulmonary emboli. Mediastinum and Evette: No dominant adenopathy or fluid collection. The esophagus is unremarkable. Visualized thyroid gland: Unremarkable. Pleura: No effusion or pneumothorax. Heart: The heart is not dilated. Mild coronary artery calcification. No pericardial effusion. Aorta: Thoracic aorta non-dilated. No evidence of dissection. Atherosclerotic calcification is presen t. Upper abdomen: Unremarkable. Soft tissues: Unremarkable. Bones: Within normal limits for the patient's age. IMPRESSION: 1. No evidence of pulmonary embolism, thoracic aortic dissection or aneurysm. 2. Stable right upper lobe pulmonary mass. 3. No acute pulmonary process. RADIATION DOSE DELIVERED: 45mGy.cm Total DLP DATA REPOSITORY: All CT scans at this facility are submitted to the National Radiology Data Registry (NRDR) Dose Index Registry (DIR) with the [employer] (ACR). RADIATION OPTIMIZATION: All CT scans at this facility use at least one of these dose optimization te chniques: automated exposure control; mA and/or kV adjustment per patient size (includes targeted exa ms where dose is matched to clinical indication); or iterative reconstruction.
--- NOTE | 2024-09-29 11:40 | ED.GENADUL_ITS ---
Discharge Plan Disposition Patient Disposition: Home Discharge Details Clinical Impression: Right-sided chest pain Primary Care Provider: Osvaldo Hatch ED Provider: Gwen Cummings Home Meds and New Rx's Prescriptions: No Action guaifenesin [Mucinex] 600 mg tablet extended release 12hr 600 mg PO Q12H PRN naproxen sodium [Aleve] 220 mg tablet 220 mg PO Q12H PRN Combivent Respimat 20-100 mcg/actuation mist 1 puff inhalation Q6H Probiotic with Prebiotic 1 billion-250 cell-mg capsule 1 cap PO DAILY Adult 50 Plus Probiotic 4 billion cell capsule 4,000 mmu cells PO DAILY Rx Instructions: administer with a meal cholecalciferol (vitamin D3) 25 mcg (1,000 unit) capsule 125 mcg PO DAILY acetaminophen [Tylenol] 325 mg tablet 325 mg PO Q6H PRN lorazepam 0.5 mg tablet 0.5 mg PO DAILY PRN (Reason: anxiety) Qty: 10 0RF Rx Instructions: Take 1/2 tablet to 1 tablet 15 minutes prior to infusion as needed albuterol sulfate [Ventolin HFA] 90 mcg/actuation HFA aerosol inhaler See Rx Instructions .ROUTE .COMPLEX Qty: 18 10RF Dose Instruction: INHALE TWO PUFFS BY MOUTH EVERY 4 TO 6 HOURS NEEDED FOR FOR SHORTNESS OF BREATH OR WHEEZE Rx Instructions: INHALE TWO PUFFS BY MOUTH EVERY 4 TO 6 HOURS NEEDED FOR FOR SHORTNESS OF BREATH OR WHEEZE fluticasone propion-salmeterol [Advair HFA] 115-21 mcg/actuation HFA aerosol inhaler 2 puff inhalation BID Qty: 12 12RF clotrimazole 10 mg john 10 mg mucous membrane TID Qty: 30 3RF albuterol sulfate 2.5 mg /3 mL (0.083 %) solution for nebulization 2.5 mg inhalation Q4H PRN (Reason: shortness of breath or wheezing) Qty: 540 5RF ondansetron 4 mg tablet,disintegrating 4 mg PO Q8H PRN ipratropium bromide 0.02 % solution 2.5 ml inhalation Q6H PRNQty: 62.5 0RF Rx Instructions: This can be combined with your albuterol nebulizer solution prednisone 10 mg tablet 20 mg PO DAILY Patient Comments: TAKE TWO TABLETS BY MOUTH EVERY DAY folic acid 1 mg tablet 1 mg PO DAILY Patient Comments: TAKE ONE TABLET BY MOUTH EVERY DAY pantoprazole 40 mg Tablet,Delayed Release (Dr/Ec) 40 mg PO DAILY@0730 Qty: 30 0RF benzonatate 200 mg Capsule 200 mg PO BID PRN PRN (Reason: Cough) Qty: 30 0RF budesonide-formoterol [Symbicort] 160-4.5 mcg/actuation Hfa Aerosol Inhaler 1 puff inhalation BID Qty: 0 0RF Discharge Instructions Additional Instructions: A referral has been placed for palliative care. Please follow up with palliative care and your medical team for management of your symptoms You may use lidocaine patches on the right chest wall according to package instructions for discomfort. IcyHot and Salonpas any good options. Tylenol may also be helpful Return to emergency care if you develop any difficulty breathing, chest pains, fever/chills, or if you are very worried and need to be rechecked again immediately. Referrals: [facility] [Provider Group] [facility] General Date/Time Provider Initiated Documentation: 09/29/24 11:21 . HPI Narrative: Nakita is a 58 year old female who presents to the emergency department today for evaluation of R sided chest pain with increased wheeze/shortness of breath. She reports she slipped on ice and fell on Monday (3 days ago), landing on her R side. Had no discomfort until last night, now reports R sided chest and shoulder pain aggravated by movement. Denies new fever/chills, cough, neck pain (other than discomfort to R shoulder/trapezius with moving head to the L), arm/leg weakness or new numbness, saddle anesthesia. Past medical history is significant for metastatic lung cancer (currently undergoing chemo), pneumonitis and COPD. Physical exam remarkable for end exp wheezes to R lung. Easy WOB, no cough. +diffuse tenderness to palpation of R shoulder/trapezius, anterior/posterior /lateral R rib cage. No obvious deformity, overlying abrasions/ecchymosis. Normal heart sounds. Painless ROM of shoulder and neck, D/dx includes but is not limited to: PE, pneumonia, rib fracture, contusion/soft tissue injury. No red flags in history and presentation concerning for cardiac etiology. I independently interpreted the following tests: CBC, CMP, magnesium reassuring. CTA unremarkable, no evidence of PE, acute pulmonary process. Stable right upper lobe mass. While in the emergency department, Nakita received duoneb for wheeze, lidocaine patch for discomfort, and daily dose of prednisone (says she ran out; tomorrow's dose also provided). Workup today overall reassuring, pain c/w muscular discomfort after fall; she says that her shortness of breath oftentimes feels like this is she is having pain. Referral made to palliative care for management of symptoms associated with lung CA and treatment. Reviewed discharge instructions with patient, including symptomatic management, importance of f/u with specialists, and red flags indicating need for return to emergency care. She voices agreement with plan of care Related Data Home Medications ?Medication ?Instructions ?Recorded ?Confirmed acetaminophen 325 mg tablet 325 mg PO Q6H PRN 01/05/22 09/29/24 (Tylenol) cholecalciferol (vitamin D3) 25 125 mcg PO DAILY 01/05/22 09/29/24 mcg (1,000 unit) capsule guaifenesin 600 mg tablet, 600 mg PO Q12H PRN 08/22/23 09/29/24 extended release 12 hr (Mucinex) naproxen sodium 220 mg tablet 220 mg PO Q12H PRN 09/28/23 09/29/24 (Aleve) lorazepam 0.5 mg tablet 0.5 mg PO DAILY PRN anxiety #10 11/15/23 09/29/24 tabs albuterol sulfate 90 mcg/actuation See Rx Instructions .Route 12/12/23 09/29/24 aerosol inhaler (Ventolin HFA) .COMPLEX #18 grams clotrimazole 10 mg john 10 mg mucous membrane TID #30 tabs 12/12/23 09/29/24 fluticasone propionate 115 2 puff inhalation BID #12 grams 12/12/23 09/29/24 mcg-salmeterol 21 mcg/actuation HFA inhaler (Advair HFA) albuterol sulfate 2.5 mg/3 mL 2.5 mg (3 mL) inhalation Q4H PRN 12/22/23 09/29/24 (0.083 %) solution for nebulization shortness of breath or wheezing #540 mL ondansetron 4 mg disintegrating 4 mg PO Q8H PRN 04/24/24 09/29/24 tablet Bacillus coagulans-inulin 1 1 cap PO DAILY 05/23/24 09/29/24 billion cell-250 mg capsule (Probiotic with Prebiotic) ipratropium 20 mcg-albuterol 100 1 puff inhalation Q6H 05/23/24 09/29/24 mcg/actuation mist for inhalation (Combivent Respimat) lactobacillus combination no.9 4 4,000 mmu cells PO DAILY 05/23/24 09/29/24 billion cell capsule (Adult 50 Plus Probiotic) ipratropium bromide 0.02 % 2.5 ml inhalation Q6H PRN #62.5 mL 07/14/24 09/29/24 solution for inhalation folic acid 1 mg tablet 1 mg PO DAILY 07/21/24 09/29/24 prednisone 10 mg tablet 20 mg PO DAILY 07/21/24 09/29/24 benzonatate 200 mg capsule 200 mg PO BID PRN PRN Cough #30 07/22/24 09/29/24 caps budesonide-formoterol HFA 160 1 puff inhalation BID #0 grams 07/22/24 09/29/24 mcg-4.5 mcg/actuation aerosol inhaler (Symbicort) pantoprazole 40 mg tablet,delayed 40 mg PO DAILY@0730 #30 tabs 07/22/24 09/29/24 release Previous Rx's ?Medication ?Instructions ?Recorded lorazepam 0.5 mg tablet 0.5 mg PO DAILY PRN anxiety #10 11/15/23 tabs albuterol sulfate 90 mcg/actuation See Rx Instructions .Route 12/12/23 aerosol inhaler (Ventolin HFA) .COMPLEX #18 grams clotrimazole 10 mg john 10 mg mucous membrane TID #30 tabs 12/12/23 fluticasone propionate 115 2 puff inhalation BID #12 grams 12/12/23 mcg-salmeterol 21 mcg/actuation HFA inhaler (Advair HFA) albuterol sulfate 2.5 mg/3 mL 2.5 mg (3 mL) inhalation Q4H PRN 12/22/23 (0.083 %) solution for nebulization shortness of breath or wheezing #540 mL ipratropium bromide 0.02 % 2.5 ml inhalation Q6H PRN #62.5 mL 07/14/24 solution for inhalation benzonatate 200 mg capsule 200 mg PO BID PRN PRN Cough #30 07/22/24 caps budesonide-formoterol HFA 160 1 puff inhalation BID #0 grams 07/22/24 mcg-4.5 mcg/actuation aerosol inhaler (Symbicort) pantoprazole 40 mg tablet,delayed 40 mg PO DAILY@0730 #30 tabs 07/22/24 release Allergies Allergy/AdvReac Type Severity Reaction Status Date / Time pseudoephedrine (From AdvReac Unknown Other (See Verified 09/29/24 11:25 Sudafed) Comment) narcotics AdvReac Unknown gi upset Uncoded 09/29/24 11:25 General Stated Complaint: SOB WES: 2 Review of Systems Narrative: see HPI Exam Const General: cooperative, comfortable, no acute distress and well developed Nutritional Appearance: thin Orientation: alert and oriented x3 Neck Neck: normal visual inspection Chest Chest: tenderness (R ribcage (anterior/posterior/lateral)) Resp Effort & Inspection: normal respiratory effort and able to speak in complete sentences Auscultation: wheezes (end exp wheeze, R side) Cardio Rate: tachycardic ((normal per baseline)) Rhythm: regular rhythm GI Inspection: normal to inspection and non-distended Back/Spine/Pelvis Cervical Spine: normal cervical lordosis and cervical ROM normal Thoracic/Lumbar Spine: thoracic and lumbar spine normal to inspection Skin General skin exam: no rashes or lesions noted Trauma: no lacerations or abrasions Extrem Right upper extremity: normal capillary refill and shoulder/upper arm Details: tenderness (diffuse); no swelling, no abrasions, no lacerations, no ecchymosis, no crepitus, no deformity and no unusual warmth Course Vital Signs Vital signs: Vital Signs Temperature 36.7 C 09/29/24 11:14 Pulse 103 H 09/29/24 11:14 Respiratory Rate 25 H 09/29/24 11:14 Blood Pressure 136/81 09/29/24 11:14 Pulse Oximetry 94 09/29/24 11:14 Temperature 36.7 C 09/29/24 11:14 Pulse 103 H 09/29/24 11:14 Respiratory Rate 25 H 09/29/24 11:14 Blood Pressure 136/81 09/29/24 11:14 Pulse Oximetry 94 09/29/24 11:14 Oxygen Delivery Method Room Air 09/29/24 11:14 Oxygen Flow Rate 0 09/29/24 11:14 Pain Level 8 09/29/24 11:14 Medical Decision Making Imaging Data Radiologic Study: Radiologist's impression: Exam(s) CT CHEST PE CTA EXAM: CT CHEST PE CTA CLINICAL HISTORY: R sided chest pain, wheeze, SOB. sp fall. TECHNIQUE: Imaging Protocol: Axial CT angiography was performed with multi- slice acquisition and multi-planar and/or 3D reconstructions. Lung Computer Aided Detection (CAD) was utilized. CONTRAST MATERIAL: Intravenous: Omnipaque 350 contrast volume:70 mL COMPARISON: CT CT CHEST/ABD/PEL W from 09/09/2024 FINDINGS: The examination is limited due to patient motion artifact. Tracheobronchial tree: Patent where visualized. No bronchiectasis. Pulmonary parenchyma: There has been no change in size of the right upper lobe mass. No focal consolidating infiltrates are present in the lungs. Mild emphysematous changes are present in the lungs. Pulmonary Arteries: No evidence of filling defect to suggest pulmonary emboli. Mediastinum and Evette: No dominant adenopathy or fluid collection. The esophagus is unremarkable. Visualized thyroid gland: Unremarkable. Pleura: No effusion or pneumothorax. Heart: The heart is not dilated. Mild coronary artery calcification. No pericardial effusion. Aorta: Thoracic aorta non-dilated. No evidence of dissection. Atherosclerotic calcification is present. Upper abdomen: Unremarkable. Soft tissues: Unremarkable. Bones: Within normal limits for the patient's age. IMPRESSION: 1. No evidence of pulmonary embolism, thoracic aortic dissection or aneurysm. 2. Stable right upper lobe pulmonary mass. 3. No acute pulmonary process. Quality:SDOH Health Related Social Needs: Health related social needs housing instability, house d, with risk of homelessness (Z59.811), material hardship(utilities) (Z59.12), problems related to housing/economic circumstances (Z59.89) PFSH All Active Problems (Updated 09/29/24 @ 14:22 by Gwen Long) Right-sided chest pain (Acute) Functional tremor (Acute) Vertigo (Acute) Weakness (Acute) Fibromyalgia (Acute) Chronic back pain (Acute) High risk medication use (Acute) History of tobacco abuse (Acute) Acute hypoxic respiratory failure (Acute) Acute exacerbation of chronic obstructive pulmonary disease (Acute) Chest pain, pleuritic (Acute) Post-obstructive pneumonia due to foreign body aspiration (Acute) Metastatic primary lung cancer (Chronic) High blood sugar (Acute) Thrush of mouth and esophagus (Acute) COPD (chronic obstructive pulmonary disease) (Chronic) Pulmonary nodule (Acute) Nicotine dependence, cigarettes, uncomplicated (Acute) Mass of upper lobe of right lung (Acute) Concussion (Acute) Dizziness (Acute) Anxiety (Chronic) Lesion of ulnar nerve (Acute) Ovarian cyst (Acute) Fatigue (Acute) Depression (Chronic) Abdominal pain (Acute) Bursitis (Acute) Back pain (Acute) Pelvic pain (Acute) Medical History Constipation Bowel habit changes Exposure to viral hepatitis (Suspected) Generalized hyperhidrosis Myalgia Paresthesia of skin Epigastric pain Cervical dysplasia Surgical History H/O LEEP Family History Mother Cancer family history of CA Mother bladder questioning ovarian ca Uncle brain CA Grand father CA unknown origin. 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
[2024-09-29 11:58] LABS: Absolute Basophil Count 0.05 10^3/uL (0.0-0.2); Absolute Eosinophil Count 0.01 10^3/uL (0.0-0.7); Absolute Lymphocyte Count 1.31 10^3/uL (1.2-3.4); Absolute Neutrophil Count 6.55 10^3/uL (1.2-6.7); Basophils % 0.5 %; Eosinophils % 0.1 %; HCT 40.7 % (36.0-46.0); HGB 13.8 g/dL (11.2-15.7); Immature Grans % 4.2 %; Lymphocytes % 13.6 %; MCH 33.7 pg (27.0-33.0); MCHC 33.9 % (32.0-36.0); MCV 100 fL (80-95); MPV 8.3 fL (8.0-11.0); Monocytes % 13.5 %; Neutrophils % 68.1 %; Nucleated RBC 0.4 % (0.0-0.3); Platelet Count 191 10^3/uL (130-400); RBC 4.09 10^6/uL (3.93-5.22); RDW 17.4 % (11.7-14.6); RDW-SD 62.4 fL; WBC 9.62 10^3/uL (4.4-10.8)
[2024-09-29] MEDS: Albuterol/Ipratropium 3 ML UPD VIAL UPD (11:58)
[2024-09-29 12:13] LABS: ALT 31 U/L (14-59); AST 21 U/L (15-37); Albumin 3.4 g/dL (3.4-5.0); Alkaline Phosphatase 102 U/L (46-116); Anion Gap 6.5 mmol/L (3-11); BUN 17 mg/dL (7-18); Bilirubin, Total 0.3 mg/dL (0.2-1.0); CO2 30.5 mmol/L (21.0-32.0); CREATININE 0.6 mg/dL (0.55-1.02); Calcium 8.8 mg/dL (8.5-10.1); Chloride 103 mmol/L (98-107); Estimated GFR 103.33 (mL/min/1.73m2); Glucose 130 mg/dL (74-106); Magnesium 1.7 mg/dL (1.8-2.4); Potassium 3.9 mmol/L (3.5-5.1); Sodium 140 mmol/L (136-145); Total Protein 6.2 g/dL (6.4-8.2)
[2024-09-29] MEDS: Normal Saline - Diluent 50 ML VIAL IJ (12:27)
[2024-09-29] MEDS: Omnipaque 350 MG/ML 100 ML BTL 70 ML IJ (12:27)
--- NOTE | 2024-09-29 13:39 | DI.VRAD_ITS ---
PROCEDURE INFORMATION: Exam: CTA Chest With Contrast Exam date and time: 09/29/2024 12:18 PM Age: 58 years old Clinical indication: Right-sided and other: R sided chest pain, wheeze, SOB. Sp fall TECHNIQUE: Imaging protocol: Computed tomographic angiography of the chest with contrast. Exam focused on the arteries. 3D rendering (Not supervised by radiologist): MIP and/or 3D reconstructed images were created by the technologist. Contrast material: OMNIPAQUE 350; Contrast volume: 70 ml; Contrast route: INTRAVENOUS (IV); COMPARISON: CT CHEST PE CTA 07/20/2024 7:39 PM FINDINGS: Pulmonary arteries: Normal. No pulmonary emboli. Aorta: Unremarkable. No aortic aneurysm. No aortic dissection. Lungs: The patient has a known lung cancer. The large lobulated mass seen in the right mid lung on the prior CT has decreased in size. Mass extends into the right hilum. Satellite lesions have also decreased in size. The lungs are emphysematous. The left lung remains clear. There is some bronchial wall thickening on the right which appears improved from the previous exam. Pleural spaces: Unremarkable. No pneumothorax. No pleural effusion. Heart: Unremarkable. No cardiomegaly. No pericardial effusion. Lymph nodes: Unremarkable. No enlarged lymph nodes. Bones/joints: Unremarkable. No acute fracture. Soft tissues: Unremarkable. IMPRESSION: 1. No evidence of acute pulmonary embolism. 2. Decrease in size of known right lung mass. Dictated and Authenticated by: Jaya Coleman MD. Orderin Duc Hidalgo MD
[2024-09-29] MEDS: predniSONE 20 MG TAB 40 MG PO ×2 (14:30)
[2024-09-29] MEDS: Lidocaine 5% Patch 1 PATCH TP (14:30)
== END 2024-09-29 14:38 | disposition home or self-care (01) ==
PROVIDERS: Emergency Provider Nurse Practitioner Family; PCP Internal Medicine Medical Oncology
DX: Z59.811 Housing instability, housed, with risk of homelessness; Z59.12 Inadequate housing utilities; Z59.89 Other problems related to housing and economic circumstances; F17.210 Nicotine dependence, cigarettes, uncomplicated; C34.91 Malignant neoplasm of unspecified part of right bronchus or lung; R07.9 Chest pain, unspecified; W19.XXXA Unspecified fall, initial encounter
CPT/HCPCS: 36415; 71275; 80053; 93005; 94640; 99285; 83735; 85025; 93010; 99284; J3490; J7512; J7620

== ENCOUNTER 2024-10-21 03:25 | Outpatient (CLI) | payer MEDICAID, SELFPAY ==
[2024-10-21 12:44] LABS: Abs Immature Grans 0.02 10^3/uL (0.0-0.06); Absolute Basophil Count 0.07 10^3/uL (0.0-0.2); Absolute Eosinophil Count 0.07 10^3/uL (0.0-0.7); Absolute Lymphocyte Count 2.39 10^3/uL (1.2-3.4); Absolute Monocyte Count 1.17 10^3/uL (0.1-0.8); Absolute Neutrophil Count 4.77 10^3/uL (1.2-6.7); Basophils % 0.8 %; Eosinophils % 0.8 %; HCT 43.8 % (36.0-46.0); HGB 14.6 g/dL (11.2-15.7); Immature Grans % 0.2 %; Lymphocytes % 28.2 %; MCH 33.9 pg (27.0-33.0); MCHC 33.3 % (32.0-36.0); MCV 102 fL (80-95); MPV 8.5 fL (8.0-11.0); Monocytes % 13.8 %; Neutrophils % 56.2 %; Platelet Count 453 10^3/uL (130-400); RBC 4.31 10^6/uL (3.93-5.22); RDW 14.9 % (11.7-14.6); RDW-SD 56.3 fL; WBC 8.49 10^3/uL (4.4-10.8)
[2024-10-21 13:28] LABS: ALT 28 U/L (14-59); AST 33 U/L (15-37); Albumin 3.5 g/dL (3.4-5.0); Alkaline Phosphatase 107 U/L (46-116); Anion Gap 7.1 mmol/L (3-11); BUN 11 mg/dL (7-18); Bilirubin, Total 0.4 mg/dL (0.2-1.0); CO2 29.9 mmol/L (21.0-32.0); CREATININE 0.6 mg/dL (0.55-1.02); Calcium 9.5 mg/dL (8.5-10.1); Chloride 103 mmol/L (98-107); Estimated GFR 103.33 (mL/min/1.73m2); Glucose 91 mg/dL (74-106); Magnesium 1.7 mg/dL (1.8-2.4); Potassium 3.9 mmol/L (3.5-5.1); Sodium 140 mmol/L (136-145); TSH 0.53 uIU/mL (0.36-3.74)
== END 2024-10-21 03:26 | disposition home or self-care (01) ==
PROVIDERS: PCP Internal Medicine Medical Oncology; Visit Provider Nurse Practitioner Family
DX: Z79.899 Other long term (current) drug therapy (principal); C34.11 Malignant neoplasm of upper lobe, right bronchus or lung
CPT/HCPCS: 36415; 80053; 83735; 84439; 84443; 85025

== ENCOUNTER 2024-10-25 11:44 | Outpatient (CLI) | payer MEDICAID, SELFPAY ==
--- NOTE | 2024-10-25 | DI.US_ITS ---
Exam(s) US LOWER EXTREMITY VENOUS RT EXAM: US LOWER EXTREMITY VENOUS RT CLINICAL HISTORY: RT CALF PAIN M79.661 STAGE IV LUNG CANCER. TECHNIQUE: Lower extremity venous ultrasound performed using grayscale, color-flow, and spectral Do ppler analysis. COMPARISON: No exams were available for comparison FINDINGS: The common femoral, femoral and popliteal veins demonstrate normal compressibility, augmentation, and color Doppler. The posterior tibial and peroneal veins are patent. No saphenous vein thrombosis or other superficial venous thrombosis is seen. No hematoma or Cevallos's cyst is seen. IMPRESSION: Negative lower extremity ultrasound. No evidence of DVT. DATA REPOSITORY:
== END 2024-10-25 12:04 ==
LOC: DI 11:45
PROVIDERS: PCP Internal Medicine Medical Oncology; Visit Provider Nurse Practitioner Family
DX: M79.661 Pain in right lower leg (principal)
CPT/HCPCS: 93971

== ENCOUNTER 2024-10-30 16:17 | Emergency (ER) | payer MEDICAID, SELFPAY ==
[2024-10-30 16:25] VITALS: BP 111/72; PULSE 107; RESP 16; TEMP 36.7; O2SAT 92
--- NOTE | 2024-10-30 18:00 | RT.EKG_ITS ---
APPROVED REPORT Exam: Resting ECG Reason for Exam: QTc measurment Patient Location: E HR:98 bpm ECG Measurements Heart Rate 98 AXIS NE 174 P 79 QRSd 99 QRS 76 QT 368 T 67 QTc 470 Conclusion Sinus rhythm, rate 98 No interval abnormalities No STEMI No significant changes from priors
[2024-10-30 18:01] VITALS: BP 114/74; PULSE 107; RESP 21; TEMP 36.7; O2SAT 97
--- NOTE | 2024-10-30 18:33 | ED.GENADUL_ITS ---
Discharge Plan Disposition Patient Disposition: Home Condition: Stable Discharge Details Clinical Impression: Cellulitis, COPD (chronic obstructive pulmonary disease), Metastatic primary lung cancer, Pneumonia Primary Care Provider: Osvaldo Hatch ED Provider: Audrey Barahona Home Meds and New Rx's Prescriptions: New doxycycline hyclate 100 mg capsule 100 mg PO BID 5 Days Qty: 10 0RF cephalexin 500 mg capsule 500 mg PO QID 7 Days Qty: 28 0RF No Action guaifenesin [Mucinex] 600 mg tablet extended release 12hr 600 mg PO Q12H PRN ibuprofen 200 mg tablet 400 mg PO Q6H PRN gabapentin 100 mg capsule 100 mg PO QHS Qty: 30 5RF naproxen sodium [Aleve] 220 mg tablet 220 mg PO Q12H PRN Combivent Respimat 20-100 mcg/actuation mist 1 puff inhalation Q6H Probiotic with Prebiotic 1 billion-250 cell-mg capsule 1 cap PO DAILY Adult 50 Plus Probiotic 4 billion cell capsule 4,000 mmu cells PO DAILY Rx Instructions: administer with a meal cholecalciferol (vitamin D3) 25 mcg (1,000 unit) capsule 125 mcg PO DAILY lorazepam 0.5 mg tablet 0.5 mg PO DAILY PRN (Reason: anxiety) Qty: 10 0RF Rx Instructions: Take 1/2 tablet to 1 tablet 15 minutes prior to infusion as needed albuterol sulfate [Ventolin HFA] 90 mcg/actuation HFA aerosol inhaler See Rx Instructions .ROUTE .COMPLEX Qty: 18 10RF Dose Instruction: INHALE TWO PUFFS BY MOUTH EVERY 4 TO 6 HOURS NEEDED FOR FOR SHORTNESS OF BREATH OR WHEEZE Rx Instructions: INHALE TWO PUFFS BY MOUTH EVERY 4 TO 6 HOURS NEEDED FOR FOR SHORTNESS OF BREATH OR WHEEZE fluticasone propion-salmeterol [Advair HFA] 115-21 mcg/actuation HFA aerosol inhaler 2 puff inhalation BID Qty: 12 12RF clotrimazole 10 mg john 10 mg mucous membrane TID Qty: 30 3RF albuterol sulfate 2.5 mg /3 mL (0.083 %) solution for nebulization 2.5 mg inhalation Q4H PRN (Reason: shortness of breath or wheezing) Qty: 540 5RF ondansetron 4 mg tablet,disintegrating 4 mg PO Q8H PRN ipratropium bromide 0.02 % solution 2.5 ml inhalation Q6H PRNQty: 62.5 0RF Rx Instructions: This can be combined with your albuterol nebulizer solution folic acid 1 mg tablet 1 mg PO DAILY Patient Comments: TAKE ONE TABLET BY MOUTH EVERY DAY benzonatate 200 mg Capsule 200 mg PO BID PRN PRN (Reason: Cough) Qty: 30 0RF budesonide-formoterol [Symbicort] 160-4.5 mcg/actuation Hfa Aerosol Inhaler 1 puff inhalation BID Qty: 0 0RF Discharge Instructions Instructions: Cellulitis (Skin Infection), Adult ED Additional Instructions: You were seen in the emergency department today for evaluation of bodyaches and general malaise, cough, and right lower extremity swelling and redness that is concerning for cellulitis. You also were diagnosed with pneumonia, due to compression of the airways by your known lung cancer. I started you on 2 antibiotics, doxycycline to cover your pneumonia as well as Keflex to cover your cellulitis. Please take both of these antibiotics until they are gone, even if you start to feel better. Continue to maintain good hydration and nutrition and take all of your home medications as prescribed. Please follow-up with your primary care provider in the next few days to discuss this visit and any symptoms that change, worsen, or persist. Thank you for allowing us to be part of your care. HPI General Mode of arrival: ambulatory . Date/Time Provider Initiated Documentation: 10/30/24 17:19 . Limitations to Documentation: no limitations . Information obtained by: patient and old records reviewed . HPI Narrative: HPI: This is a 58-year-old female patient with a past medical history significant for COPD, metastatic lung cancer, history of ovarian cyst, currently on chemotherapy through [facility], presenting for evaluation of bodyaches, right leg swelling, and general malaise. The patient had chemotherapy on Monday, states that afterwards she started to have worsening nausea, body pain, and that this is not typical for her post chemo symptoms. She reports that she has had swelling in her right lower extremity with pain and redness, and an ultrasound performed that did not show any sign of DVT and is concerned that she may be developing an infection. She reports that she has also had a cough, endorses some acute on chronic abdominal discomfort located in the right side, is scheduled to see GI for endoscopy and colonoscopy. The patient has been taking her home Tylenol, Aleve, and Zofran without improvement. Denies fever, dysuria, vomiting. Has been passing stool. Exam: Gen: Awake and alert, in no apparent distress HEENT: Non-icteric sclera Neck: Supple Lungs: No apparent respiratory distress, normal respiratory effort. Lung sounds clear and equal bilaterally without wheezes, rhonchi, rales CV: Appears well perfused, heart with tachycardic rate but regular rhythm, strong distal pulses Abdomen: Non-distended, soft, tender to palpation on the far right side without rigidity, rebound, or guarding MSK: Moves 4 extremities without apparent limitation in ROM. The right lower extremity has 1+ peripheral edema with redness and warmth compared to the contralateral side. Preserved strength, sensation, and strong pulses distal to this finding Skin: Visualized skin without rashes, cyanosis. Neuro: Normal Gait, no obvious focal deficits or facial asymmetry. Speaks in full, clear sentences. Psych: Appropriate for situation. MDM: This is a 58-year-old female patient with history of active lung cancer who is presenting for evaluation of body pain, general malaise, and right lower extremity swelling. Differential includes but is not limited to infectious abnormalities including cellulitis, pneumonia, viral upper respiratory infection, urinary tract infection, sepsis, bacteremia, neutropenia (though the patient is reassuringly without fever at this time). I considered DVT though the patient had a negative ultrasound within the last few days. No bilaterality to her symptoms nor history of heart failure to suggest peripheral edema as a cause of her swelling. Considered anemia, metabolic electrolyte derangement, kidney injury, liver dysfunction. The patient has no history of abdominal surgical history to suggest bowel obstruction, and does not have any peritonitis on my physical examination to suggest acute abdomen. The patient was mildly hypotensive on arrival and with her tachycardia I feel it prudent to provide her with a liter of IV fluids, as well as Tylenol and Zofran for initial symptomatic management of pain and nausea. Will obtain laboratory studies to include CBC, CMP, magnesium, troponin, lipase, urinalysis, COVID, lactate, and blood cultures. I will obtain an EKG to evaluate her QTc, given the breath of her symptoms as well as her high risk history we will obtain a CT chest abdomen pelvis with contrast to identify the cause of her symptoms. ED Course: I reviewed the patient's laboratory studies, she has a normal white blood cell count with no leukocytosis or leukopenia, no anemia or thrombocytopenia. Chemistry panel is without significant electrolyte derange ment, patient does have a stable low magnesium at 1.6, normal kidney function, no evidence of liver disease. Her lactate and troponin are both low, and there was no elevation in troponin on 1 hour recheck. Urinalysis noninfectious and the [id number] COVID and influenza was negative. I reviewed the patient's CT scan, and reviewed the radiology report. She does have evidence of enlargement of her known pulmonary malignancy with some evidence of postobstructive pneumonia versus atelectasis. CT of the abdomen and pelvis is without acute pathology. Given this finding, I do feel it is important to treat the patient for pneumonia as she has had a cough. Additionally I will treat her for cellulitis. However, I see no evidence for vital sign abnormalities or fever to suggest sepsis, or other severe infectious sequelae. The patient is desiring of discharge home, and I do feel it is reasonable to trial an outpatient course of oral antibiotics. I sent her a prescription for doxycycline, as the patient takes large doses of Zofran and other QTc prolonging medications that make macrolides less desirable, as well as Keflex for her cellulitis. I counseled her that she may be contacted with the results of her blood cultures when they become available, as well as strict return precautions if she develops fever, worsening shortness of breath, change in responsiveness, etc. At this time, the patient has had a full medical evaluation and is safe for discharge to home. They are hemodynamically stable, ambulatory, and tolerating PO. They are understanding of the follow-up plan and return precautions. They left our facility without incident. Audrey Barahona MD Related Data Home Medications ?Medication ?Instructions ?Recorded ?Confirmed cholecalciferol (vitamin D3) 25 125 mcg PO DAILY 01/05/22 10/24/24 mcg (1,000 unit) capsule guaifenesin 600 mg tablet, 600 mg PO Q12H PRN 08/22/23 10/24/24 extended release 12 hr (Mucinex) naproxen sodium 220 mg tablet 220 mg PO Q12H PRN 09/28/23 10/24/24 (Aleve) lorazepam 0.5 mg tablet 0.5 mg PO DAILY PRN anxiety #10 11/15/23 10/24/24 tabs albuterol sulfate 90 mcg/actuation See Rx Instructions .Route 12/12/23 10/24/24 aerosol inhaler (Ventolin HFA) .COMPLEX #18 grams clotrimazole 10 mg john 10 mg mucous membrane TID #30 tabs 12/12/23 10/24/24 fluticasone propionate 115 2 puff inhalation BID #12 grams 12/12/23 10/24/24 mcg-salmeterol 21 mcg/actuation HFA inhaler (Advair HFA) albuterol sulfate 2.5 mg/3 mL 2.5 mg (3 mL) inhalation Q4H PRN 12/22/23 10/24/24 (0.083 %) solution for nebulization shortness of breath or wheezing #540 mL ondansetron 4 mg disintegrating 4 mg PO Q8H PRN 04/24/24 09/29/24 tablet Bacillus coagulans-inulin 1 1 cap PO DAILY 05/23/24 10/24/24 billion cell-250 mg capsule (Probiotic with Prebiotic) ipratropium 20 mcg-albuterol 100 1 puff inhalation Q6H 05/23/24 10/24/24 mcg/actuation mist for inhalation (Combivent Respimat) lactobacillus combination no.9 4 4,000 mmu cells PO DAILY 05/23/24 10/24/24 billion cell capsule (Adult 50 Plus Probiotic) ipratropium bromide 0.02 % 2.5 ml inhalation Q6H PRN #62.5 mL 07/14/24 10/24/24 solution for inhalation folic acid 1 mg tablet 1 mg PO DAILY 07/21/24 10/24/24 benzonatate 200 mg capsule 200 mg PO BID PRN PRN Cough #30 07/22/24 10/24/24 caps budesonide-formoterol HFA 160 1 puff inhalation BID #0 grams 07/22/24 10/24/24 mcg-4.5 mcg/actuation aerosol inhaler (Symbicort) gabapentin 100 mg capsule 100 mg PO QHS #30 caps 10/24/24 10/24/24 ibuprofen 200 mg tablet 400 mg PO Q6H PRN 04/10/25 04/10/25 cephalexin 500 mg capsule 500 mg PO QID 7 days #28 caps 10/30/24 doxycycline hyclate 100 mg capsule 100 mg PO BID 5 days #10 caps 10/30/24 Previous Rx's ?Medication ?Instructions ?Recorded lorazepam 0.5 mg tablet 0.5 mg PO DAILY PRN anxiety #10 11/15/23 tabs albuterol sulfate 90 mcg/actuation See Rx Instructions .Route 12/12/23 aerosol inhaler (Ventolin HFA) .COMPLEX #18 grams clotrimazole 10 mg john 10 mg mucous membrane TID #30 tabs 12/12/23 fluticasone propionate 115 2 puff inhalation BID #12 grams 12/12/23 mcg-salmeterol 21 mcg/actuation HFA inhaler (Advair HFA) albuterol sulfate 2.5 mg/3 mL 2.5 mg (3 mL) inhalation Q4H PRN 12/22/23 (0.083 %) solution for nebulization shortness of breath or wheezing #540 mL ipratropium bromide 0.02 % 2.5 ml inhalation Q6H PRN #62.5 mL 07/14/24 solution for inhalation benzonatate 200 mg capsule 200 mg PO BID PRN PRN Cough #30 07/22/24 caps budesonide-formoterol HFA 160 1 puff inhalation BID #0 grams 07/22/24 mcg-4.5 mcg/actuation aerosol inhaler (Symbicort) gabapentin 100 mg capsule 100 mg PO QHS #30 caps 10/24/24 cephalexin 500 mg capsule 500 mg PO QID 7 days #28 caps 10/30/24 doxycycline hyclate 100 mg capsule 100 mg PO BID 5 days #10 caps 10/30/24 Allergies Allergy/AdvReac Type Severity Reaction Status Date / Time pseudoephedrine (From AdvReac Unknown Other (See Verified 10/30/24 16:33 Sudafed) Comment) narcotics AdvReac Unknown gi upset Uncoded 10/30/24 16:33 General Stated Complaint: GenMedical WES: 2 Course Vital Signs Vital signs: Vital Signs Temperature 36.7 C 10/30/24 16:25 Pulse 107 H 10/30/24 16:25 Respiratory Rate 16 10/30/24 16:25 Blood Pressure 111/72 10/30/24 16:25 Pulse Oximetry 92 10/30/24 16:25 Temperature 36.7 C 10/30/24 18:01 Temperature Source Oral 10/30/24 18:01 Pulse 107 H 10/30/24 18:01 Respiratory Rate 21 10/30/24 18:01 Blood Pressure 114/74 10/30/24 18:01 Blood Pressure Position Sitting 10/30/24 16:25 Pulse Oximetry 97 10/30/24 18:01 Oxygen Delivery Method Room Air 10/30/24 18:01 Oxygen Flow Rate 0 10/30/24 18:01 Pain Level 10 10/30/24 16:25 Comment alternating Aleve and ibuprofen without improvement 10/30/24 16:25 Lab/Test Results Lab/Test Results: 10/30/24 18:11 Blood Blood Culture - Pending 10/30/24 18:11 Blood Blood Culture - Pending Medical Decision Making Quality:SDOH Health Related Social Needs: Health related social needs housing instability, house d, with risk of homelessness (Z59.811), material hardship(utilities) (Z59.12), problems related to housing/economic circumstances (Z59.89) PFS All Active Problems (Updated 10/30/24 @ 21:34 by Audrey Barahona MD) Pneumonia (Acute) Cellulitis (Acute) Functional tremor (Acute) Vertigo (Acute) Weakness (Acute) Fibromyalgia (Acute) Chronic back pain (Acute) High risk medication use (Acute) History of tobacco abuse (Acute) Acute hypoxic respiratory failure (Acute) Acute exacerbation of chronic obstructive pulmonary disease (Acute) Chest pain, pleuritic (Acute) Post-obstructive pneumonia due to foreign body aspiration (Acute) Metastatic primary lung cancer (Chronic) High blood sugar (Acute) Thrush of mouth and esophagus (Acute) COPD (chronic obstructive pulmonary disease) (Chronic) Pulmonary nodule (Acute) Nicotine dependence, cigarettes, uncomplicated (Acute) Mass of upper lobe of right lung (Acute) Concussion (Acute) Dizziness (Acute) Anxiety (Chronic) Lesion of ulnar nerve (Acute) Ovarian cyst (Acute) Fatigue (Acute) Depression (Chronic) Abdominal pain (Acute) Bursitis (Acute) Back pain (Acute) Pelvic pain (Acute) Medical History Constipation Bowel habit changes Exposure to viral hepatitis (Suspected) Generalized hyperhidrosis Myalgia Paresthesia of skin Epigastric pain Cervical dysplasia Surgical History H/O LEEP Family History Mother Cancer family history of CA Mother bladder questioning ovarian ca Uncle brain CA Grand father CA unknown origin. 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
[2024-10-30 19:00] LABS: Bilirubin Negative (Negative); Blood Negative (Negative); Clarity Clear (Clear); Glucose Negative (Negative); Ketones Negative (Negative); Leukocyte Esterase Negative (Negative); Nitrite Negative (Negative); Specific Gravity 1.015 (1.005-1.025); Urobilinogen 0.2 mg/dL (Up to 0.2); pH 6.5 (5-8)
[2024-10-30 19:15] LABS: Lactate 0.7 mmol/L (<or=2.0)
[2024-10-30 19:16] LABS: Abs Immature Grans 0.02 10^3/uL (0.0-0.06); Absolute Basophil Count 0.08 10^3/uL (0.0-0.2); Absolute Eosinophil Count 0.05 10^3/uL (0.0-0.7); Absolute Lymphocyte Count 1.79 10^3/uL (1.2-3.4); Absolute Monocyte Count 0.84 10^3/uL (0.1-0.8); Absolute Neutrophil Count 5.19 10^3/uL (1.2-6.7); Eosinophils % 0.6 %; HCT 36.8 % (36.0-46.0); HGB 12.3 g/dL (11.2-15.7); Immature Grans % 0.3 %; Lymphocytes % 22.5 %; MCH 33.5 pg (27.0-33.0); MCHC 33.4 % (32.0-36.0); MCV 100 fL (80-95); MPV 8.5 fL (8.0-11.0); Monocytes % 10.5 %; Neutrophils % 65.1 %; Platelet Count 362 10^3/uL (130-400); RBC 3.67 10^6/uL (3.93-5.22); RDW 13.8 % (11.7-14.6); WBC 7.97 10^3/uL (4.4-10.8)
[2024-10-30] MEDS: ACETAMINOPHEN 1,000 MG/100 ML BAG 400 MG IVPB (19:16)
[2024-10-30] MEDS: Lactated Ringers 1,000 ML 1000 ML IV (19:17)
[2024-10-30] MEDS: Ondansetron 4 MG/2 ML VIAL IVP (19:17)
[2024-10-30 19:29] LABS: PTT Activated 31.9 sec (20.6-30.2)
[2024-10-30 19:39] LABS: ALT 20 U/L (14-59); AST 30 U/L (15-37); Albumin 3.1 g/dL (3.4-5.0); Alkaline Phosphatase 91 U/L (46-116); Anion Gap 6.5 mmol/L (3-11); BUN 10 mg/dL (7-18); Bilirubin, Total 0.6 mg/dL (0.2-1.0); CO2 31.5 mmol/L (21.0-32.0); CREATININE 0.6 mg/dL (0.55-1.02); Calcium 9.2 mg/dL (8.5-10.1); Chloride 99 mmol/L (98-107); Estimated GFR 103.33 (mL/min/1.73m2); Glucose 93 mg/dL (74-106); Lipase 26 U/L (<78); Magnesium 1.6 mg/dL (1.8-2.4); NT-proBNP 78 pg/mL (<300); Potassium 3.8 mmol/L (3.5-5.1); Sodium 137 mmol/L (136-145); Troponin I 7 ng/L (<or=51)
[2024-10-30] MEDS: Omnipaque 350 MG/ML 100 ML BTL IJ (20:18)
[2024-10-30] MEDS: Normal Saline - Diluent 50 ML VIAL IJ (20:20)
--- NOTE | 2024-10-30 20:22 | DI.CT_ITS ---
Exam(s) CT CHEST/ABD/PEL W EXAM: CT CHEST/ABD/PEL W CLINICAL HISTORY: Cough, body aches, abd pain, chemo patient. TECHNIQUE: Imaging Protocol: Axial computed tomography images with coronal and sagittal reformatted images were created and reviewed CONTRAST MATERIAL: Intravenous: Omnipaque 350 Contrast volume:100 ml Oral: None COMPARISON: CT CT CHEST PE CTA from 09/29/2024 FINDINGS: CHEST: LUNGS: The size of the malignant infiltrate in the right upper lobe has further increased when compar ed to 09/29/2024. The right upper lobe bronchus is again noted to be compressed-occluded by this mass . Remainder of the right lung is clear and there is no pleural effusion. There are no significant fin dings in the opposite-left lung and no left pleural effusion. No findings in the trachea and karyna l evel.. No central pulmonary emboli. No obvious peripheral pulmonary emboli. MEDIASTINUM: Right-sided mass medial extension noted to the level of the azygos vein. There is no pro minent paratracheal adenopathy. No adenopathy in the anterior mediastinal fat. Slightly prominent lym ph node again noted in the subcarinal region. Left hilum unremarkable. Anterior mediastinal fat unrem arkable. Visualized thyroid unremarkable. CARDIAC: Heart size is normal. There is no pericardial effusion.Caliber of thoracic aorta is within normal limits and there is no evidence of dissection. OSSEOUS: No significant osseous lesions.No fractures evident.. ABDOMEN: There is no ascites. LIVER: There are no focal hepatic lesions nor dilatation of intrahepatic ducts. GALLBLADDER/BILIARY: No obvious gallbladder pathology. CBD is not dilated. PANCREAS: No evidence of pancreatic mass nor dilatation of the pancreatic duct. SPLEEN: Spleen is not enlarged. There are no intrasplenic lesions. Splenic and portal veins are goodman nt. ADRENALS: There are no significant adrenal masses. KIDNEYS: No calculi nor hydronephrosis. No solid renal masses. No cysts evident. ABDOMINAL AORTA: Abdominal aorta is not enlarged. LYMPH NODES: There is no retroperitoneal nor paraaortic adenopathy. ABDOMINAL WALL: No evidence of significant anterior abdominal wall nor inguinal hernia. GI: There is no evidence of bowel obstruction. PELVIS: LYMPH NODES: There is no intrapelvic nor inguinal adenopathy. GI: No evidence of appendicitis.No evidence of sigmoid diverticulitis. URINARY BLADDER: No calculi nor masses evident REPRODUCTIVE: There is and adnexal regions unremarkable. No masses. No free fluid in the pelvis. OSSEOUS: No significant osseous lesions. Chronic disc space narrowing at L3-4 and L4-5 levels. No listhesis. Is no pars defects. No osseous le sions. IMPRESSION: 1. Compared to the CT scan of 09/29/2024 there has been increase in size of the right upper lobe and superior right hilar mass, consistent with progression of known malignancy. No pleural effusions. The opposite lung remains clear. 2. No significant findings in the abdomen and pelvis.. No ascites. 3. No significant osseous lesions evident. RADIATION DOSE DELIVERED: 527.83mGy.cm Total DLP DATA REPOSITORY: All CT scans at this facility are submitted to the National Radiology Data Registry (NRDR) Dose Index Registry (DIR) with the [employer] (A[employer]). RADIATION OPTIMIZATION: All CT scans at this facility use at least one of these dose optimization te chniques: automated exposure control; mA and/or kV adjustment per patient size (includes targeted exa ms where dose is matched to clinical indication); or iterative reconstruction.
[2024-10-30 21:00] LABS: Troponin I 8 ng/L (<or=51)
--- NOTE | 2024-10-30 21:21 | DI.VRAD_ITS ---
PROCEDURE INFORMATION: Exam: CT Chest With Contrast; Diagnostic Exam date and time: 10/30/2024 8:06 PM Age: 58 years old Clinical indication: Abdominal pain; Generalized; Chest pressure; Cough, body aches, abd pain, chemo patient. Primary lung cancer TECHNIQUE: Imaging protocol: Diagnostic computed tomography of the chest with contrast. 3D rendering (Not supervised by radiologist): MIP and/or 3D reconstructed images were created by the technologist. Radiation optimization: All CT scans at this facility use at least one of these dose optimization techniques: automated exposure control; mA and/or kV adjustment per patient size (includes targeted exams where dose is matched to clinical indication); or iterative reconstruction. Contrast material: [id number]; Contrast volume: 100 ml; Contrast route: INTRAVENOUS (IV); COMPARISON: CT CHEST PE CTA 09/29/2024 12:18 PM FINDINGS: Thyroid: 5 mm calcification in the left thyroid lobe which does not require further evaluation. Lungs: Mild central bronchial wall thickening suspicious for mild changes of bronchitis or bronchial edema. Right upper lobe bronchial occlusions at the level of the mass are again noted, with right upper lobe volume loss and new elements of peripheral consolidation posteriorly which may be due to postobstructive atelectasis or pneumonia. Moderate bullous emphysematous change in the right middle lobe medial segment again noted. Multifocal right upper lobe mass lesions extending into the perihilar distribution are increased in size from 09/29/2024 concerning for progression of malignancy. Pleural spaces: No pleural effusions. No pneumothorax. Heart: Heart size normal. Coronary arteries: Mild coronary artery calcification. Esophagus: The esophagus is largely contracted without gross abnormality. Lymph nodes: No supraclavicular or axillary adenopathy. No mediastinal adenopathy by size criteria. Mildly enlarged right hilar node. Vasculature: Mild aortic ectasia/tortuosity and calcific atherosclerosis. No mediastinal hematoma. The pulmonary arteries demonstrate no gross abnormality. Bones/joints: No acute osseous abnormalities are identified. Soft tissues: No acute soft tissue abnormality. IMPRESSION: 1. Multifocal right upper lobe and superior hilar mass elements showing mildly increased size from 09/29/2024, concerning for progression of known malignancy. 2. Right upper lobe central bronchial occlusions with new consolidative airspace disease in the posterior right upper lobe which could represent postobstructive atelectasis or pneumonia. No cavitation. 3. Mild central bronchial wall thickening suspicious for mild element of bronchitis or bronchial edema. 4. Additional nonemergent findings detailed above. PROCEDURE INFORMATION: Exam: CT Abdomen And Pelvis With Contrast Exam date and time: 10/30/2024 8:06 PM Age: 58 years old Clinical indication: Abdominal pain; Generalized; Chest pressure; Cough, body aches, abd pain, chemo patient. Primary lung cancer TECHNIQUE: Imaging protocol: Computed tomography of the abdomen and pelvis with contrast. 3D rendering (Not supervised by radiologist): MIP and/or 3D reconstructed images were created by the technologist. Radiation optimization: All CT scans at this facility use at least one of these dose optimization techniques: automated exposure control; mA and/or kV adjustment per patient size (includes targeted exams where dose is matched to clinical indication); or iterative reconstruction. Contrast material: [id number]; Contrast volume: 100 ml; Contrast route: INTRAVENOUS (IV); COMPARISON: CT CHEST/ABD/PEL W 09/09/2024 1:25 PM FINDINGS: Esophagus: The visualized distal esophagus is largely contracted without gross abnormality. Liver: Normal contour. No mass lesions. No intrahepatic biliary ductal dilatation. Gallbladder and biliary ducts: Normal. No calcified stones. No ductal dilation. Pancreas: Normal. No inflammatory changes or ductal dilation. Spleen: Normal. No splenomegaly. Adrenal glands: Normal. No adrenal mass. Kidneys and ureters: No acute abnormalities. No hydronephrosis or hydroureter. No urinary tract stones are identified. Stomach and bowel: The stomach is largely contracted. The small bowel is nondilated with no gross abnormality. There is a moderate amount of stool distributed in the mid and proximal colon suggesting possible constipation. The distal colon is largely contracted which likely contributes to the mildly thick walled appearance although mild colitis is not excluded. No evidence of perforation or abscess. Appendix: The appendix is normal in caliber and demonstrates no evidence of appendicitis. Intraperitoneal space: No peritoneal free fluid or air. Vasculature: No acute vascular abnormalities. Mild-moderate calcific atherosclerosis. Lymph nodes: No adenopathy. Urinary bladder: Unremarkable as visualized. Reproductive: Unremarkable as visualized. Bones/joints: No acute osseous abnormalities. Osteopenia. Severe disc osteoarthritic changes L3-L4 through L5-S1. Soft tissues: No acute soft tissue abnormalities. IMPRESSION: 1. No definite acute abdominal/pelvic process. 2. Moderate stool in the mid and proximal colon, possible constipation. 3. Distal colon is largely contracted, probably accounting for the mildly thick-walled appearance although can not exclude mild colitis. 4. Additional nonemergent findings detailed above. Dictated and Authenticated by: Andres Hodges MD. Orderin [facility]. Sid Ventura MD
[2024-10-30] MEDS: Doxycycline Hyclate 100 MG, 2 CAPS/BTL PO (21:55)
[2024-10-30] MEDS: Cephalexin 500 MG CAP PO (21:55)
[2024-10-30] MEDS: Doxycycline Hyclate 100 MG CAP 200 MG PO (21:55)
[2024-10-30] MEDS: Cephalexin 500 MG CAP, 4 CAPS/BTL PO (21:56)
[2024-10-30 22:01] VITALS: BP 122/74; PULSE 80; RESP 16; O2SAT 98
== END 2024-10-30 22:01 | disposition home or self-care (01) ==
PROVIDERS: Emergency Provider Emergency Medicine; PCP Internal Medicine Medical Oncology
DX: J18.9 Pneumonia, unspecified organism (principal); L03.116 Cellulitis of left lower limb; L03.115 Cellulitis of right lower limb; J44.9 Chronic obstructive pulmonary disease, unspecified; F17.210 Nicotine dependence, cigarettes, uncomplicated; C34.90 Malignant neoplasm of unspecified part of unspecified bronchus or lung; Z92.21 Personal history of antineoplastic chemotherapy
CPT/HCPCS: 74177; 80053; 83690; 87040; 87637; 93005; 96361; 96365; 96375; 99285; 71260; 81003; 83605; 83735; 83880; 84484; 85025; 85730; 93010; J0131; J2405; J3490

== ENCOUNTER 2024-11-04 12:45 | Outpatient (CLI) | payer MEDICAID, SELFPAY ==
--- NOTE | 2024-11-04 12:50 | DI.RAD_ITS ---
Exam(s) XR CHEST 2V PA LATERAL EXAM: XR CHEST 2V PA LATERAL CLINICAL HISTORY: HISTORY OF PNEUMONIA, Z87.01 RECURRENT TECHNIQUE: 2D digital imaging was performed of the chest. Two images were obtained. PA and lateral views were obtained. COMPARISON: CT CT CHEST/ABD/PEL W from 10/30/2024 FINDINGS: MEDIASTINUM: Normal. HEART: Normal. PULMONARY VASCULATURE: Normal. LUNGS: The patient has a known right hilar and right upper lobe mass which is similar compared to the CT scan from 10/30/2024. The lungs are otherwise clear. The lungs are hyperinflated suggesting unde rlying COPD. PLEURAL SPACE: No pleural effusion or pneumothorax. BONE:Within normal limits for the patient's age. OTHER FINDINGS:Normal. IMPRESSION: 1. No acute pulmonary findings. 2. The patient has a known right upper lobe carcinoma. DATA REPOSITORY: RADIATION DOSE DELIVERED:
== END 2024-11-04 13:05 ==
LOC: DI 12:46
PROVIDERS: PCP Internal Medicine Medical Oncology; Visit Provider Nurse Practitioner Family
DX: Z87.01 Personal history of pneumonia (recurrent) (principal); C34.11 Malignant neoplasm of upper lobe, right bronchus or lung
CPT/HCPCS: 71046

== ENCOUNTER 2024-11-05 18:40 | Inpatient (IN) | payer MEDICAID, SELFPAY ==
[2024-11-05] VITALS (11 sets, daily range): BP systolic 94–110; BP diastolic 63–69; PULSE 83–109; RESP 9–24; TEMP 36.5–37.3; O2SAT 93–100
--- NOTE | 2024-11-05 19:20 | W.ED.GENAD ---
Discharge Plan Disposition Patient Disposition: Admit to [facility] Condition: Poor Discharge Details Clinical Impression: Pneumonia Primary Care Provider: Osvaldo Hatch ED Provider: Scout Lockwood [place] Meds and New Rx's Prescriptions: No Action guaifenesin [Mucinex] 600 mg tablet extended release 12hr 600 mg PO Q12H PRN ibuprofen 200 mg tablet 400 mg PO Q6H PRN gabapentin 100 mg capsule 100 mg PO QHS Qty: 30 5RF naproxen sodium [Aleve] 220 mg tablet 220 mg PO Q12H PRN Combivent Respimat 20-100 mcg/actuation mist 1 puff inhalation Q6H Probiotic with Prebiotic 1 billion-250 cell-mg capsule 1 cap PO DAILY Adult 50 Plus Probiotic 4 billion cell capsule 4,000 mmu cells PO DAILY Rx Instructions: administer with a meal cholecalciferol (vitamin D3) 25 mcg (1,000 unit) capsule 125 mcg PO DAILY lorazepam 0.5 mg tablet 0.5 mg PO DAILY PRN (Reason: anxiety) Qty: 10 0RF Rx Instructions: Take 1/2 tablet to 1 tablet 15 minutes prior to infusion as needed albuterol sulfate [Ventolin HFA] 90 mcg/actuation HFA aerosol inhaler See Rx Instructions .ROUTE .COMPLEX Qty: 18 10RF Dose Instruction: INHALE TWO PUFFS BY MOUTH EVERY 4 TO 6 HOURS NEEDED FOR FOR SHORTNESS OF BREATH OR WHEEZE Rx Instructions: INHALE TWO PUFFS BY MOUTH EVERY 4 TO 6 HOURS NEEDED FOR FOR SHORTNESS OF BREATH OR WHEEZE fluticasone propion-salmeterol [Advair HFA] 115-21 mcg/actuation HFA aerosol inhaler 2 puff inhalation BID Qty: 12 12RF clotrimazole 10 mg john 10 mg mucous membrane TID Qty: 30 3RF albuterol sulfate 2.5 mg /3 mL (0.083 %) solution for nebulization 2.5 mg inhalation Q4H PRN (Reason: shortness of breath or wheezing) Qty: 540 5RF ondansetron 4 mg tablet,disintegrating 4 mg PO Q8H PRN ipratropium bromide 0.02 % solution 2.5 ml inhalation Q6H PRNQty: 62.5 0RF Rx Instructions: This can be combined with your albuterol nebulizer solution folic acid 1 mg tablet 1 mg PO DAILY Patient Comments: TAKE ONE TABLET BY MOUTH EVERY DAY benzonatate 200 mg Capsule 200 mg PO BID PRN PRN (Reason: Cough) Qty: 30 0RF budesonide-formoterol [Symbicort] 160-4.5 mcg/actuation Hfa Aerosol Inhaler 1 puff inhalation BID Qty: 0 0RF cephalexin 500 mg capsule 500 mg PO Q6H Patient Comments: TAKE ONE CAPSULE BY MOUTH FOUR TIMES A DAY FOR 7 DAYS HPI General Mode of arrival: ambulatory. Date/Time Provider Initiated Documentation: 11/05/24 18:49. Limitations to Documentation: no limitations. Information obtained by: patient, RN notes reviewed and old records reviewed. HPI Narrative: Patient presents to ED with continued cough and shortness of breath. Patient had been seen here on the . She had received a dose of chemo on the . She had much more significant malaise, bony pain, shortness of breath than before when she had received chemo. She had some increased pain and swelling to her leg. A DVT scan on the was negative. She was seen in the ED on the with workup that included CT of the chest/abdomen/pelvis which did not have significant acute findings. Her leg is much improved after discharge on doxycycline and cephalexin. Her breathing and cough are much worse. Cough is causing chest and back pain. Continues to have significant nausea but no vomiting. She has had no fever that she is aware of. Her primary care added scopolamine patch to her regimen to try to help with nausea. She also obtained a chest x-ray today. Patient to ED as the cough and breathing is much worse. She does have a history of COPD. She is not on oxygen at home. She is being treated for metastatic lung cancer. Related Data Home Medications ?Medication ?Instructions ?Recorded ?Confirmed cholecalciferol (vitamin D3) 25 125 mcg PO DAILY 01/05/22 11/05/24 mcg (1,000 unit) capsule guaifenesin 600 mg tablet, 600 mg PO Q12H PRN 08/22/23 11/05/24 extended release 12 hr (Mucinex) naproxen sodium 220 mg tablet 220 mg PO Q12H PRN 09/28/23 11/05/24 (Aleve) lorazepam 0.5 mg tablet 0.5 mg PO DAILY PRN anxiety #10 11/15/23 11/05/24 tabs albuterol sulfate 90 mcg/actuation See Rx Instructions .Route 12/12/23 11/05/24 aerosol inhaler (Ventolin HFA) .COMPLEX #18 grams clotrimazole 10 mg john 10 mg mucous membrane TID #30 tabs 12/12/23 11/05/24 fluticasone propionate 115 2 puff inhalation BID #12 grams 12/12/23 11/05/24 mcg-salmeterol 21 mcg/actuation HFA inhaler (Advair HFA) albuterol sulfate 2.5 mg/3 mL 2.5 mg (3 mL) inhalation Q4H PRN 12/22/23 11/05/24 (0.083 %) solution for nebulization shortness of breath or wheezing #540 mL ondansetron 4 mg disintegrating 4 mg PO Q8H PRN 04/24/24 11/05/24 tablet Bacillus coagulans-inulin 1 1 cap PO DAILY 05/23/24 11/05/24 billion cell-250 mg capsule (Probiotic with Prebiotic) ipratropium 20 mcg-albuterol 100 1 puff inhalation Q6H 05/23/24 11/05/24 mcg/actuation mist for inhalation (Combivent Respimat) lactobacillus combination no.9 4 4,000 mmu cells PO DAILY 05/23/24 11/05/24 billion cell capsule (Adult 50 Plus Probiotic) ipratropium bromide 0.02 % 2.5 ml inhalation Q6H PRN #62.5 mL 07/14/24 11/05/24 solution for inhalation folic acid 1 mg tablet 1 mg PO DAILY 07/21/24 11/05/24 benzonatate 200 mg capsule 200 mg PO BID PRN PRN Cough #30 07/22/24 11/05/24 caps budesonide-formoterol HFA 160 1 puff inhalation BID #0 grams 07/22/24 11/05/24 mcg-4.5 mcg/actuation aerosol inhaler (Symbicort) gabapentin 100 mg capsule 100 mg PO QHS #30 caps 10/24/24 11/05/24 ibuprofen 200 mg tablet 400 mg PO Q6H PRN 10/24/24 11/05/24 cephalexin 500 mg capsule 500 mg PO Q6H 11/05/24 11/05/24 Previous Rx's ?Medication ?Instructions ?Recorded lorazepam 0.5 mg tablet 0.5 mg PO DAILY PRN anxiety #10 11/15/23 tabs albuterol sulfate 90 mcg/actuation See Rx Instructions .Route 12/12/23 aerosol inhaler (Ventolin HFA) .COMPLEX #18 grams clotrimazole 10 mg john 10 mg mucous membrane TID #30 tabs 12/12/23 fluticasone propionate 115 2 puff inhalation BID #12 grams 12/12/23 mcg-salmeterol 21 mcg/actuation HFA inhaler (Advair HFA) albuterol sulfate 2.5 mg/3 mL 2.5 mg (3 mL) inhalation Q4H PRN 12/22/23 (0.083 %) solution for nebulization shortness of breath or wheezing #540 mL ipratropium bromide 0.02 % 2.5 ml inhalation Q6H PRN #62.5 mL 07/14/24 solution for inhalation benzonatate 200 mg capsule 200 mg PO BID PRN PRN Cough #30 07/22/24 caps budesonide-formoterol HFA 160 1 puff inhalation BID #0 grams 07/22/24 mcg-4.5 mcg/actuation aerosol inhaler (Symbicort) gabapentin 100 mg capsule 100 mg PO QHS #30 caps 10/24/24 Allergies Allergy/AdvReac Type Severity Reaction Status Date / Time pseudoephedrine (From AdvReac Unknown Other (See Verified 11/05/24 18:50 Sudafed) Comment) narcotics AdvReac Unknown gi upset Uncoded 11/05/24 18:50 General Stated Complaint: RespSymp WES: 3 Exam Narrative Exam Narrative: Const: Thin female in NAD. VS per triage. HEENT: NC/AT. Normal facial exam. Neck: Supple. Trachea midline. Lungs: Normal respiratory effort. Lungs without wheezing, decent air exchange, few scattered rhonchi. Cor: RRR without murmur. Good radial pulses. GI: Soft/ND/NT. Neuro: A+O x 3. Normal speech, mentation, gait. Cranial nerves II - XII grossly intact. No gross motor or sensory deficit. Ext: No C/C/E. Course Vital Signs Vital signs: Vital Signs Temperature 97.7 F 11/05/24 18:42 Pulse 109 H 11/05/24 18:42 Respiratory Rate 22 11/05/24 18:42 Blood Pressure 100/63 11/05/24 18:42 Pulse Oximetry 93 11/05/24 18:42 Temperature 97.7 F 11/05/24 18:42 Pulse 109 H 11/05/24 18:42 Respiratory Rate 22 11/05/24 18:42 Blood Pressure 100/63 11/05/24 18:42 Pulse Oximetry 93 11/05/24 18:42 Oxygen Delivery Method Nasal Cannula 11/05/24 18:42 Oxygen Flow Rate 4 11/05/24 18:42 Medical Decision Making Patient returns to ED after a visit on the now with increasing shortness of breath and worsening cough. She reports having chest pain and back pain from all the coughing. She is very nauseated and not really eating much of anything. She was placed on cephalexin for cellulitis and doxycycline to cover for possible pneumonia on the . Patient reports that her cellulitis on her leg is much improved. However her breathing, cough, nausea are all worse. Room air saturations were 83%. On nasal cannula oxygen she is normal and she is in no distress. She is an active treatment for lung cancer. She continues to smoke despite her history of COPD. She is not on home oxygen. Her chest x-ray that was done outpatient is being read by radiology as unchanged. Given her lack of wheezing and decent air exchange I doubt this is COPD. Possible that we missed a PE given her active cancer though her CT from last week did not show an obvious PE. Will repeat a CTA tonight. Will obtain labs including VBG. Doubt any of this is cardiac and her chest pain is likely related to her cough as described but will get an EKG and delta troponin. Fluids ordered. Patient's EKG is sinus rhythm with no acute ST changes, unchanged from previous. Laboratory studies with a WBC of 4.3. VBG with a pH of 7.32 and a pCO2 of 56. Chemistries unremarkable other than mag of 1.5 which will be repleted intravenously. Troponin is negative. Received a call from our radiologist, Dr. Hinton, reporting patient has multiple patchy nodular infiltrates involving the left lung which are new compared to the . There is no PE. There is no change in the right mass. Given these findings along with her increasing cough, shortness of breath, low O2 saturations we will treat the patient for presumed pneumonia. Given her recent antibiotic use, active cancer on chemo, and new findings will cover this patient with cefepime and vancomycin. Call is placed to the hospitalist. Patient will be admitted to hospitalist service for further management. Patient with findings and agreeable to admission. Medical Records Medical records reviewed: Yes I reviewed the patient's medical records. Medical records narrative: outpatient x-ray Lab Data Lab results reviewed: Yes I reviewed the patient's lab results. Lab results narrative: see MDM ECG Data Attestation: I personally reviewed and interpreted this ECG (s) as follows: Prior ECG tracings: available for review Interpretation: see EKG/MDM Quality:SDOH Health Related Social Needs: Health related social needs housing instability, housed, with risk of homelessness (Z59.811), material hardship(utilities) (Z59.12), problems related to housing/economic circumstances (Z59.89) PFS All Active Problems (Updated 11/05/24 @ 21:41 by Scout Lockwood MD) Pneumonia (Acute) Generalized hyperhidrosis (Acute) Exposure to viral hepatitis (Acute) (Suspected) Constipation (Acute) Functional tremor (Acute) Vertigo (Acute) Weakness (Acute) Fibromyalgia (Acute) High risk medication use (Acute) History of tobacco abuse (Acute) High blood sugar (Acute) Pulmonary nodule (Acute) Nicotine dependence, cigarettes, uncomplicated (Acute) Mass of upper lobe of right lung (Acute) Lesion of ulnar nerve (Acute) Ovarian cyst (Acute) Fatigue (Acute) Depression (Chronic) Medical History Anxiety COPD (chronic obstructive pulmonary disease) Metastatic primary lung cancer Chronic back pain Cervical dysplasia Surgical History H/O LEEP Family History Mother Cancer family history of CA Mother bladder questioning ovarian ca Uncle brain CA Grand father CA unknown origin. 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
--- NOTE | 2024-11-05 19:30 | DI.CT_ITS ---
Exam(s) CT CHEST PE CTA EXAM: CT CHEST PE CTA CLINICAL HISTORY: increased SOB, low oxygen sats, CXR nothing acute. TECHNIQUE: Imaging Protocol: CT angiography of the chest was performed using pulmonary embolus shira col. Multi planar reconstructions were performed. CONTRAST MATERIAL: Intravenous: Omnipaque 350 Contrast volume: 75 cc COMPARISON: CT CT CHEST/ABD/PEL W from 10/30/2024 CR XR CHEST 2V PA LATERAL from 11/04/2024 FINDINGS: CHEST: PULMONARY ARTERIES: There are no intraluminal filling defects to suggest acute pulmonary emboli. LUNGS: Previously documented right upper lobe malignancy is again noted, most recently documented on CT scan of 10/30/2024 and appearing unchanged from that date. No new additional right lung masses an d there is no pleural effusion on either side. However, in the opposite-left lung there has develope d a few small patchy nodular infiltrates in the left upper lobe which were not evident 6 days ago. A lso similar findings in the left lower lobe. No pleural effusion on either side.. MEDIASTINUM: Right hilum unchanged. Left hilum unchanged. Subcarinal region unchanged. Partially v isualized thyroid unremarkable visualized thyroid unremarkable. CARDIAC: Heart size is upper normal. There is no pericardial effusion.Caliber of the thoracic aorta is within normal limits. No evidence of dissection. There is no significant shift of the interventri cular septum. PARTIALLY VISUALIZED UPPERMOST ABDOMEN: No obvious findings OSSEOUS: No significant osseous lesions.. IMPRESSION: 1. Compared to the most recent CT scan of 10/30/2024 there has now been interval development of multi ple small patchy nodular infiltrates throughout the left lung involving left upper and left lower lob es most probably infectious. No associated pleural effusions nor new adenopathy at this time 2. No evidence of acute pulmonary emboli. No evidence of pulmonary infarction.No pleural effusions. 3. Stable appearance of large malignant infiltrate in the right lung. Report called by myself to ER physician 11/05/2024 at 8:58 p.m. RADIATION DOSE DELIVERED: 56.37mGy.cm Total DLP DATA REPOSITORY: All CT scans at this facility are submitted to the National Radiology Data Registry (NRDR) Dose Index Registry (DIR) with the [employer] (ACR). RADIATION OPTIMIZATION: All CT scans at this facility use at least one of these dose optimization te chniques: automated exposure control; mA and/or kV adjustment per patient size (includes targeted exa ms where dose is matched to clinical indication); or iterative reconstruction.
--- NOTE | 2024-11-05 19:30 | RT.EKG_ITS ---
APPROVED REPORT Exam: Resting ECG Reason for Exam: CP/SOB Patient Location: E HR:100 bpm ECG Measurements Heart Rate 100 AXIS [place] 168 P 83 QRSd 90 QRS 84 QT 382 T 76 QTc 492 Conclusion Sinus tachycardia...rate> 99 Low voltage, precordial leads...precordial leads <1.0mV There are no significant changes compared to prior EKG performed on 10/30/2024 at 18:16.
[2024-11-05 19:57] LABS: BE (Venous) 3 mmol/L (-2-3); HCO3 (Venous) 29 mmol/L (23-28); O2 Sat (Venous) 71 %; TCO2 (Venous) 27 mmol/L (24-29); pCO2 (Venous) 56 mmHg (41-51); pH (Venous) 7.32 (7.31-7.41); pO2 (Venous) 42 mmHg
[2024-11-05 19:59] LABS: HCT 39.8 % (36.0-46.0); MCH 33.1 pg (27.0-33.0); MCHC 32.7 % (32.0-36.0); MCV 101 fL (80-95); MPV 8.7 fL (8.0-11.0); Platelet Count 247 10^3/uL (130-400); RBC 3.93 10^6/uL (3.93-5.22); RDW 14.2 % (11.7-14.6); RDW-SD 53.7 fL; WBC 4.27 10^3/uL (4.4-10.8)
--- NOTE | 2024-11-05 19:59 | NUR.NOTE ---
Nursing Note: Labs on the 16th, not waiting for labs before CT. stated that this was ok.
[2024-11-05] MEDS: Normal Saline - Diluent 50 ML VIAL IJ (20:05)
[2024-11-05] MEDS: Omnipaque 350 MG/ML 100 ML BTL 75 ML IJ (20:06)
[2024-11-05 20:15] LABS: Absolute Eosinophil Count 0.04 10^3/uL (0.0-0.7); Absolute Lymphocyte Count 1.32 10^3/uL (1.2-3.4); Absolute Monocyte Count 1.37 10^3/uL (0.1-0.8); Absolute Neutrophil Count 1.45 10^3/uL (1.2-6.7); Atypical Lymphocytes % 2 %; Diff Comment Manual Differential; Metamyelocytes % 1; Myelocytes % 1
[2024-11-05 20:16] LABS: ALT 43 U/L (14-59); AST 50 U/L (15-37); Albumin 2.8 g/dL (3.4-5.0); Alkaline Phosphatase 96 U/L (46-116); Anion Gap 6.7 mmol/L (3-11); BUN 10 mg/dL (7-18); Bilirubin, Total 0.2 mg/dL (0.2-1.0); CO2 29.3 mmol/L (21.0-32.0); CREATININE 0.7 mg/dL (0.55-1.02); Calcium 8.8 mg/dL (8.5-10.1); Chloride 101 mmol/L (98-107); Estimated GFR 99.57 (mL/min/1.73m2); Glucose 133 mg/dL (74-106); Lipase 37 U/L (<78); Magnesium 1.5 mg/dL (1.8-2.4); Potassium 3.7 mmol/L (3.5-5.1); Sodium 137 mmol/L (136-145); Total Protein 6.7 g/dL (6.4-8.2)
[2024-11-05 20:17] LABS: Macrocytosis 1+
[2024-11-05] MEDS: Lactated Ringers 1,000 ML 1000 ML IV (20:40)
--- NOTE | 2024-11-05 21:07 | DI.VRAD_ITS ---
PROCEDURE INFORMATION: Exam: CTA Chest With Contrast Exam date and time: 11/05/2024 8:04 PM Age: 58 years old Clinical indication: Shortness of breath; Increased SOB, low oxygen sats, cxr nothing acute TECHNIQUE: Imaging protocol: Computed tomographic angiography of the chest with contrast. Exam focused on the arteries. 3D rendering (Not supervised by radiologist): MIP and/or 3D reconstructed images were created by the technologist. Contrast material: OMNIPAQUE 350; Contrast volume: 75 ml; Contrast route: INTRAVENOUS (IV); COMPARISON: CT CHEST PE CTA 09/29/2024 12:18 PM FINDINGS: Pulmonary arteries: Prominent appearing pulmonary artery. No evidence of pulmonary embolism. Aorta: Unremarkable. No aortic aneurysm. No aortic dissection. Thyroid: Stable calcification within the left thyroid gland. Lungs: Mild central bronchial wall thickening suspicious for mild changes of bronchitis or bronchial edema. Right upper lobe bronchial occlusions at the level of the mass are again noted, slightly increased in size with right upper lobe volume loss and new elements of peripheral consolidation posteriorly which may be due to postobstructive atelectasis or pneumonia. Impression. Moderate bullous emphysematous change in the right middle lobe medial segment again noted. Multifocal right upper lobe mass lesions extending into the perihilar distribution are again seen, relatively stable in appearance. Pleural spaces: Unremarkable. No pneumothorax. No pleural effusion. Heart: No cardiomegaly or pericardial effusion. Lymph nodes: Unremarkable. No enlarged lymph nodes. Bones/joints: No acute osseous abnormality. Soft tissues: Soft tissues are unremarkable as visualized. IMPRESSION: No evidence of pulmonary embolism. Slightly increased in size of the multifocal right upper lobe and superior hilar mass Stable bullous emphysematous changes in the right middle lobe. Dictated and Authenticated by: Paty Gautam MD. Orderin Fabián Butterfield MD
[2024-11-05 21:19] LABS: Troponin I 12 ng/L (<or=51)
[2024-11-05] MEDS: MAGNESIUM SULFATE 2 GM/50 ML BAG IV_INF ×2 (21:28→23:32)
[2024-11-05] MEDS: CEFEPIME 2 GM in Normal Saline 100 ML IVPB (21:28)
[2024-11-05] MEDS: Albuterol/Ipratropium 3 ML UPD VIAL UPD (22:59)
[2024-11-05] MEDS: Acetaminophen 325 MG TAB 650 MG PO (23:31)
--- NOTE | 2024-11-05 23:38 | W.PM.HP.N ---
Date of service: 11/05/24 Time of Service: 23:38 Assessment and Plan Assessment and plan (1) Acute hypoxic respiratory failure: Status: Resolved Assessment and plan: Patient presents with acute hypoxic respiratory failure, needing 2 L of oxygen when her baseline at home is 0 L. This is in the setting of metastatic lung cancer. She has had multiple healthcare exposures and is obviously immunocompromised with recent chemotherapy. She has failed outpatient treatment with doxycycline. I agree with the ED and starting a broad-spectrum course empirically. She has been treated with cefepime and vancomycin. We will continue this on the floor. Will offer respiratory support, DuoNebs, Mucinex. I will avoid cough suppression. Smoking cessation was encouraged. Patient is currently smoking 1/4 to 1/2 pack/day. She was previously a pack per day smoker but never 2 packs/day. This may represent ongoing chronic respiratory failure and she will need home oxygen at some point. COVID/flu/RSV was not obtained in the ED and is pending here. No evidence of pulmonary VTE Patient confirmed to be full code, with no prolonged time on the vent. DVT prophylaxis with 40 mg of subcu Lovenox daily. (2) Pneumonia: Status: Acute Assessment and plan: as above History of Present Illness History of Present Illness Chief Complaint: Dyspnea Narrative: Patient is a 58-year-old woman with a past medical history significant for COPD not on home oxygen, stage IV lung cancer status post 4 cycles of cisplatin and pemetrexed, failed Keytruda, currently on just pemetrexed. Her last chemo was on 25 October. Patient presented to the ED after that on the with some increased pain and swelling in her right leg. DVT scan was negative on the . Due to dyspnea and leg findings, CT chest, abdomen, pelvis was obtained on of did not show acute findings. Since that time patient has had some chills, no fevers, lightheadedness, nausea, cough, pleuritic chest pain. She denies dizziness, vision changes, headaches, typical cardiac chest pain, productive cough, abdominal complaints, dysuria, rashes. She was placed on Keflex and then doxycycline respectively for her cellulitis and empirically for pneumonia. Her cellulitis has resolved. Pneumonia has gotten worse. CT angio obtained in the ED that did not show PE but does show nodularity on the left. She was treated with vancomycin and cefepime. Patient remains on 2L O2. Review of Systems Narrative: 10 point review of system performed and positive and negative pertinent findings are in the HPI above. PFSH All Active Problems (Updated 11/05/24 @ 22:32 by BERTIN REY) Pneumonia (Acute) Functional tremor (Acute) Vertigo (Acute) Weakness (Acute) Fibromyalgia (Acute) High risk medication use (Acute) History of tobacco abuse (Acute) Constipation (Acute) High blood sugar (Acute) Pulmonary nodule (Acute) Nicotine dependence, cigarettes, uncomplicated (Acute) Mass of upper lobe of right lung (Acute) Exposure to viral hepatitis (Acute) (Suspected) Generalized hyperhidrosis (Acute) Lesion of ulnar nerve (Acute) Ovarian cyst (Acute) Fatigue (Acute) Depression (Chronic) Medical History Anxiety COPD (chronic obstructive pulmonary disease) Metastatic primary lung cancer Chronic back pain Cervical dysplasia Surgical History H/O LEEP Family History Mother Cancer family history of CA Mother bladder questioning ovarian ca Uncle brain CA Grand father CA unknown origin. 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 Do you feel safe at home: Yes Do you feel safe in your relationship?: Yes Additional Social history: 1 kid age 15 still at home Meds Allergies and Home Medications Allergies Allergy/AdvReac Type Severity Reaction Status Date / Time pseudoephedrine (From AdvReac Unknown Other (See Verified 11/05/24 18:50 Sudafed) Comment) narcotics AdvReac Unknown gi upset Uncoded 11/05/24 18:50 Home Medications ?Medication ?Instructions ?Recorded ?Confirmed ?Type cholecalciferol (vitamin D3) 25 125 mcg PO DAILY 01/05/22 11/05/24 History mcg (1,000 unit) capsule guaifenesin 600 mg tablet, 600 mg PO Q12H PRN 08/22/23 11/05/24 History extended release 12 hr (Mucinex) naproxen sodium 220 mg tablet 220 mg PO Q12H PRN 09/28/23 11/05/24 History (Aleve) lorazepam 0.5 mg tablet 0.5 mg PO DAILY PRN anxiety #10 11/15/23 11/05/24 Rx tabs albuterol sulfate 90 mcg/actuation See Rx Instructions .Route 12/12/23 11/05/24 Rx aerosol inhaler (Ventolin HFA) .COMPLEX #18 grams clotrimazole 10 mg john 10 mg mucous membrane TID #30 tabs 12/12/23 11/05/24 Rx fluticasone propionate 115 2 puff inhalation BID #12 grams 12/12/23 11/05/24 Rx mcg-salmeterol 21 mcg/actuation HFA inhaler (Advair HFA) albuterol sulfate 2.5 mg/3 mL 2.5 mg (3 mL) inhalation Q4H PRN 12/22/23 11/05/24 Rx (0.083 %) solution for nebulization shortness of breath or wheezing #540 mL ondansetron 4 mg disintegrating 4 mg PO Q8H PRN 04/24/24 11/05/24 History tablet Bacillus coagulans-inulin 1 1 cap PO DAILY 05/23/24 11/05/24 History billion cell-250 mg capsule (Probiotic with Prebiotic) ipratropium 20 mcg-albuterol 100 1 puff inhalation Q6H 05/23/24 11/05/24 History mcg/actuation mist for inhalation (Combivent Respimat) lactobacillus combination no.9 4 4,000 mmu cells PO DAILY 05/23/24 11/05/24 History billion cell capsule (Adult 50 Plus Probiotic) ipratropium bromide 0.02 % 2.5 ml inhalation Q6H PRN #62.5 mL 07/14/24 11/05/24 Rx solution for inhalation folic acid 1 mg tablet 1 mg PO DAILY 07/21/24 11/05/24 History benzonatate 200 mg capsule 200 mg PO BID PRN PRN Cough #30 07/22/24 11/05/24 Rx caps budesonide-formoterol HFA 160 1 puff inhalation BID #0 grams 07/22/24 11/05/24 Rx mcg-4.5 mcg/actuation aerosol inhaler (Symbicort) ibuprofen 200 mg tablet 400 mg PO Q6H PRN 10/24/24 11/05/24 History cephalexin 500 mg capsule 500 mg PO Q6H 11/05/24 11/05/24 History ephedrine sulfate 25 mg tablet 25 mg PO Q4H 11/05/24 11/05/24 History (Bronkaid Max) scopolamine HBr 1 mg/mL injection 1 mg .Route Q3D 11/05/24 11/05/24 History solution Exam Const General: cooperative, no acute distress and anxious Orientation: alert and oriented x3 HENMT Head: normocephalic Resp Effort & Inspection: normal respiratory effort and audible wheezes Auscultation: rhonchi (present bilaterally) Cardio Rate: tachycardic Rhythm: regular rhythm GI Inspection: normal to inspection and non-distended Palpation: soft and nontender Skin General skin exam: no rashes or lesions noted Neuro General: patient alert and patient oriented x3 Cranial Nerves: CN's II-XI intact bilaterally Results Imaging CT scan - chest: report reviewed (IMPRESSION: 1. Compared to the most recent CT scan of 10/30/2024 there has now been interval development of multiple small patchy nodular infiltrates throughout the left lung involving left upper and left lower lobes most probably infectious. No associated pleural effusions nor new adenopathy at t) and image reviewed Labs 11/05/24 19:48 11/05/24 19:48 Labs: Laboratory Results - last 24 hr 11/05/24 11/05/24 11/05/24 19:48 20:36 20:52 WBC 4.27 L RBC 3.93 Hgb 13.0 Hct 39.8 MCV 101 H MCH 33.1 H MCHC 32.7 RDW 14.2 Plt Count 247 MPV 8.7 Immature Gran % See Differential Neutrophils % 34.0 Lymphocytes % 29.0 Atypical Lymphs % 2 Monocytes % 32.0 Eosinophils % 1.0 Basophils % 0.0 Metamyelocytes % 1 Myelocytes % 1 Nucleated RBC % 0.0 Absolute Neutrophils 1.45 Absolute Lymphocytes 1.32 Absolute Monocytes 1.37 H Absolute Eosinophils 0.04 Absolute Basophils 0.00 RBC Morphology See Below Macrocytosis 1+ VBG pH 7.32 VBG pCO2 56 H VBG pO2 42 VBG HCO3 29 H VBG Total CO2 27 VBG O2 Saturation 71 VBG Base Excess 3 Sodium 137 Potassium 3.7 Chloride 101 Carbon Dioxide 29.3 Anion Gap 6.7 BUN 10 Creatinine 0.7 Est GFR (CKD-EPI 2020) 99.57 Glucose 133 H Calcium 8.8 Magnesium 1.5 L Total Bilirubin 0.2 AST 50 H ALT 43 Alkaline Phosphatase 96 Troponin I Cancelled 12 Total Protein 6.7 Albumin 2.8 L Lipase 37 Last Vital Signs Temp 37.3 C 11/05/24 23:04 Pulse 93 H 11/05/24 23:04 Resp 20 11/05/24 23:04 BP 110/69 11/05/24 23:04 Pulse Ox 99 11/05/24 23:04 H&P: Quality VTE Deep Vein Thrombosis/Pulmonary Embolism Present on Admission: No Time Spent Time spent with Patient: 40-54 minutes Time was spent: preparing to see the patient(eg.review tests), obtaining and/or reviewing separately otained hiistory, ordering medications,tests, procedures, referring, communicating with other health personal care service provider, indepentently interpreting results and counseling the patient
[2024-11-05] MEDS: Normal Saline Flush 10 ML SYR IVP (23:49)
[2024-11-06] MEDS: VANCOMYCIN/WATER (PEG) 1.5 GM/300 ML BAG IV (00:49)
[2024-11-06] MEDS: LORazepam 0.5 MG TAB PO (02:05)
[2024-11-06 02:52] LABS: COVID-19 PCR Negative (Negative); Influenza A PCR Positive (Negative); Influenza B PCR Negative (Negative); RSV PCR Negative (Negative)
[2024-11-06 02:57] LABS: Source Nasopharynx
[2024-11-06] MEDS: Acetaminophen 500 MG TAB 1000 MG PO ×3 (06:15→21:44)
[2024-11-06] MEDS: CEFEPIME 2 GM in Normal Saline 100 ML IVPB ×3 (06:16→21:45)
[2024-11-06 06:57] LABS: Abs Immature Grans 0.05 10^3/uL (0.0-0.06); Absolute Basophil Count 0.02 10^3/uL (0.0-0.2); Absolute Eosinophil Count 0.06 10^3/uL (0.0-0.7); Absolute Lymphocyte Count 1.54 10^3/uL (1.2-3.4); Absolute Monocyte Count 1.23 10^3/uL (0.1-0.8); Absolute Neutrophil Count 1.26 10^3/uL (1.2-6.7); Basophils % 0.5 %; Eosinophils % 1.4 %; HCT 37.4 % (36.0-46.0); HGB 12.2 g/dL (11.2-15.7); Immature Grans % 1.2 %; MCH 33.2 pg (27.0-33.0); MCHC 32.6 % (32.0-36.0); MCV 102 fL (80-95); MPV 8.8 fL (8.0-11.0); Monocytes % 29.6 %; Neutrophils % 30.3 %; Platelet Count 261 10^3/uL (130-400); RBC 3.67 10^6/uL (3.93-5.22); RDW 14.6 % (11.7-14.6); RDW-SD 54.4 fL; WBC 4.16 10^3/uL (4.4-10.8)
[2024-11-06 07:10] LABS: ALT 38 U/L (14-59); AST 47 U/L (15-37); Albumin 2.7 g/dL (3.4-5.0); Alkaline Phosphatase 94 U/L (46-116); BUN 9 mg/dL (7-18); Bilirubin, Total 0.2 mg/dL (0.2-1.0); CREATININE 0.6 mg/dL (0.55-1.02); Calcium 8.7 mg/dL (8.5-10.1); Chloride 103 mmol/L (98-107); Estimated GFR 103.33 (mL/min/1.73m2); Glucose 85 mg/dL (74-106); Magnesium 2.3 mg/dL (1.8-2.4); Potassium 4.4 mmol/L (3.5-5.1); Sodium 142 mmol/L (136-145); Total Protein 6.6 g/dL (6.4-8.2)
[2024-11-06 07:28] VITALS: BP 102/84; PULSE 84; RESP 16; TEMP 37; O2SAT 98
[2024-11-06] MEDS: Cholecalciferol (Vitamin D3) 1,000 UNIT TAB 5000 UNITS PO (07:50)
[2024-11-06] MEDS: Lactobacillus Acidophilus CAP 1 CAP PO (07:51)
[2024-11-06] MEDS: Folic Acid 1 MG TAB PO (07:51)
[2024-11-06 08:49] VITALS: O2SAT 96
--- NOTE | 2024-11-06 09:38 | INITIAL_ITS ---
Date of service: 11/06/24 Time of Service: 09:39 Care Management Initial Assmt Initial Assessment Reason for Hospitalization: stage IV lung cancer Functional Status/Living Situation Patient Presentation: Nakita lives in [facility] on [facility] [address] [facility]. She has a son who lives in the area with his lia and their 4 year old daughter. She also has a 16 year old daughter, Fara, who lives with her. Per staff, including the Palliative Care [employer] CO[employer], Nakita does not wish to engage with staff today. She has expressed concerns about her care and intends to file a formal complaint, however she prefers not to have many conversations today. Per chart review, she has a total of 6 children and 12 grandchildren. Nakita was admitted with pneumonia and she has Stage IV lung cancer. She has been receiving chemotherapy and is scheduled to meet with radiation Oncology in the near future. CM will respect Nakita's request for minimal interruptions today and will plan to meet with her tomorrow. Town of Residence: [facility] Resides with: Alone Significant Other/Family: [facility] Instrumental Activities of Daily Living (ADLs): Independent Medications Medication Management: No Issues/Barriers identified Advance Directives Advance Directives: Do you have an Advance Directive: N 01/10/22 12:[address] File [address] [facility]: N 01/10/22 12:55 Date Asked 11/05/24 11/05/24 18:45 AD Date Reviewed COLST On File at [facility] COLST Date Scanned Code Status Resuscitation Status Full Code Portal Pt does not currently have a portal and education provided: Yes Insurance Coverage/Financial Issues Insurance: Medicaid Care Team Visit Care Team Role Provider Type Diana Yin APRN MD [facility] STAFF PHYSICIAN Osvaldo Hatch Primary Care Provider NON-[facility] STAFF PHYSICIAN Scout Lockwood MD Emergency Provider [facility] STAFF PHYSICIAN Praveen Ortega MD Admit Provider [facility] STAFF PHYSICIAN Attending Provider Discharge Potential Discharge Needs: PCP F/U Appt Anticipated Barriers to Discharge: None Identified Patient/Family Education Needs: Review discharge instructions, discuss Ask Me Three Transportation: Private vehicle Plan: Anticipate Nakita will be discharged home with no new services when medically cleared. She will follow up with her PCP, Oncologist and plan of care and transport with family. CM will follow and continue to support discharge planning. Social Determinants of Health Screening Will the Patient Participate in the Screening?: Declined to provide PFSH All Active Problems (Updated 11/06/24 @ 10:00 by Diana Yin APRN) Influenza A (Acute) Sepsis (Acute) Discharge planning issues (Acute) On deep vein thrombosis (DVT) prophylaxis (Acute) Pneumonia (Acute) Generalized hyperhidrosis (Acute) Exposure to viral hepatitis (Acute) (Suspected) Constipation (Acute) Functional tremor (Acute) Vertigo (Acute) Weakness (Acute) Fibromyalgia (Acute) High risk medication use (Acute) History of tobacco abuse (Acute) High blood sugar (Acute) Pulmonary nodule (Acute) Nicotine dependence, cigarettes, uncomplicated (Acute) Mass of upper lobe of right lung (Acute) Lesion of ulnar nerve (Acute) Ovarian cyst (Acute) Fatigue (Acute) Depression (Chronic) Medical History Anxiety COPD (chronic obstructive pulmonary disease) Metastatic primary lung cancer Chronic back pain Cervical dysplasia Surgical History H/O LEEP Family History Mother Cancer family history of CA Mother bladder questioning ovarian ca Uncle brain CA Grand father CA unknown origin. 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
--- NOTE | 2024-11-06 09:45 | PGE_ITS ---
Date of Service Date of service: 11/06/24 Time of Service: 09:46 Assessment and Plan Assessment and plan (1) Sepsis: Status: Acute Assessment and plan: Sepsis criteria met with tachycardia HR 93, tachypnea RR22 - source most likely pneumonia as per CT report Blood C&S ordered and as below (2) Acute hypoxic respiratory failure: Status: Resolved Assessment and plan: No oxygen requirement at home presented with acute hypoxic respiratory failure, needing 2 L of oxygen in the setting of metastatic lung cancer. No PE on imaging multiple healthcare exposures and is immunocompromised with recent chemotherapy. failed outpatient treatment with doxycycline Now on cefepime and Vancomycin Continue respiratory support, DuoNebs, Mucinex, acapella, IS sputum Cx, legionella, strep pneumo, and mycoplasma - s/p outpatient Tx failure Smoking cessation was encouraged offer NRT PRN -s currently smoking 1/4 to 1/2 pack/day. She was previously a pack per day smoker but never 2 packs/day. This may represent ongoing chronic respiratory failure and she will need home oxygen at some point. Influenza A positive and Tamiflu ordered MRSA PCR pending (3) Pneumonia: Status: Acute Assessment and plan: as above Imaging showing ongoing progressing malignancy to the right lung momin New nodular infiltrates to the left lung (4) Influenza A: Status: Acute Assessment and plan: testing positive on 11/06/2024 Tamiflu 75 mg PO BID (5) On deep vein thrombosis (DVT) prophylaxis: Status: Acute Assessment and plan: DVT prophylaxis with Lovenox 40 mg SC daily. (6) Discharge planning issues: Status: Acute Assessment and plan: D/c home when medically ready Might need oxygen at home in the setting of progressive malignancy and acute lung infections discussed with Dr. Frost Subjective Subjective Patient reports: feels better, nausea and other (Air hunger w/o hypoxia); denies no new complaints, still having pain, tolerating liquids well, tolerating a regular diet or shortness of breath Exam Narrative Exam Narrative: Constitutional The patient is in bed c/o generalized pain cooperative during the interview. No acute distress HENMT: Facial structures slightly emaciated Neck: Normal ROM, no meningeal signs Neuro:alert and oriented X4 No neurological focal deficit Resp: Normal respiratory pattern, speaks in full sentences, unlabored breathing, diminished left lung momin, right base fine crackles Cardio: regular rhythm, S1, S2, no murmur, capillary refill<3 sec., bilateral radial and dorsalis pedis pulses are positive, palpable GI: Abdomen is not distended, soft and non tender, bowel sounds are present : Negative Costovertebral angle tenderness, no bladder distension Back/spine/Pelvis: No back tenderness, normal alignment Integumentary: No skin lesions or rash Extremities: strength 5/5 to bilateral lower and upper extremities Psych: RASS 1, irritable mood and irritable /labile affect. Psych Attitude: belligerent Thought Process: impoverished Thought Content: ideas of reference Insight: poor Judgment: limited Objective Last Vital Signs Temp 37.0 C 11/06/24 07:28 Pulse 84 11/06/24 07:28 Resp 16 11/06/24 07:28 BP 102/84 11/06/24 07:28 Pulse Ox 96 11/06/24 08:49 Laboratory Results - last 24 hr 11/05/24 11/05/24 11/05/24 19:48 20:36 20:52 WBC 4.27 L RBC 3.93 Hgb 13.0 Hct 39.8 MCV 101 H MCH 33.1 H MCHC 32.7 RDW 14.2 Plt Count 247 MPV 8.7 Immature Gran % See Differential Neutrophils % 34.0 Lymphocytes % 29.0 Atypical Lymphs % 2 Monocytes % 32.0 Eosinophils % 1.0 Basophils % 0.0 Metamyelocytes % 1 Myelocytes % 1 Nucleated RBC % 0.0 Absolute Neutrophils 1.45 Absolute Lymphocytes 1.32 Absolute Monocytes 1.37 H Absolute Eosinophils 0.04 Absolute Basophils 0.00 RBC Morphology See Below Macrocytosis 1+ VBG pH 7.32 VBG pCO2 56 H VBG pO2 42 VBG HCO3 29 H VBG Total CO2 27 VBG O2 Saturation 71 VBG Base Excess 3 Sodium 137 Potassium 3.7 Chloride 101 Carbon Dioxide 29.3 Anion Gap 6.7 BUN 10 Creatinine 0.7 Est GFR (CKD-EPI 2020) 99.57 Glucose 133 H Calcium 8.8 Magnesium 1.5 L Total Bilirubin 0.2 AST 50 H ALT 43 Alkaline Phosphatase 96 Troponin I Cancelled 12 Total Protein 6.7 Albumin 2.8 L Lipase 37 COVID-19 Source SARS-CoV-2 (PCR) Influenza Type A (PCR) Influenza Type B (PCR) RSV (PCR) 11/06/24 11/06/24 02:07 06:15 WBC 4.16 L RBC 3.67 L Hgb 12.2 Hct 37.4 MCV 102 H MCH 33.2 H MCHC 32.6 RDW 14.6 Plt Count 261 MPV 8.8 Immature Gran % 1.2 Neutrophils % 30.3 Lymphocytes % 37.0 Atypical Lymphs % Monocytes % 29.6 Eosinophils % 1.4 Basophils % 0.5 Metamyelocytes % Myelocytes % Nucleated RBC % 0.0 Absolute Neutrophils 1.26 Absolute Lymphocytes 1.54 Absolute Monocytes 1.23 H Absolute Eosinophils 0.06 Absolute Basophils 0.02 RBC Morphology Macrocytosis VBG pH VBG pCO2 VBG pO2 VBG HCO3 VBG Total CO2 VBG O2 Saturation VBG Base Excess Sodium 142 Potassium 4.4 Chloride 103 Carbon Dioxide 32.0 Anion Gap 7.0 BUN 9 Creatinine 0.6 Est GFR (CKD-EPI 2020) 103.33 Glucose 85 Calcium 8.7 Magnesium 2.3 Total Bilirubin 0.2 AST 47 H ALT 38 Alkaline Phosphatase 94 Troponin I Total Protein 6.6 Albumin 2.7 L Lipase COVID-19 Source Nasopharynx SARS-CoV-2 (PCR) Negative Influenza Type A (PCR) Positive A Influenza Type B (PCR) Negative RSV (PCR) Negative Progress Note: Quality VTE Deep Vein Thrombosis/Pulmonary Embolism Present on Admission: No Time Spent with Patient Time Spent with Patient: >50 minutes Time was spent: preparing to see the patient(eg.review tests), obtaining and/or reviewing separately otained hiistory, ordering medications,tests, procedures, referring, communicating with other health care team coordinator scheduler, indepentently interpreting results, counseling the patient and care coordination
[2024-11-06 11:06] LABS: Vancomycin, Random 11.3 ug/mL
[2024-11-06 11:18] VITALS: BP 150/77; PULSE 106; TEMP 37; O2SAT 90
--- NOTE | 2024-11-06 11:18 | PHA.REVIEW2 ---
Pharmacy Admission Review Admission Clinical Review Admission Pharmacy Review: Influenza A (Acute) Sepsis (Acute) Discharge planning issues (Acute) On deep vein thrombosis (DVT) prophylaxis (Acute) Pneumonia (Acute) pseudoephedrine (From [facility]) Adverse Reaction (Unknown, Verified 11/05/24 18:50) Other (See Comment) narcotics Adverse Reaction (Unknown, Uncoded 11/05/24 18:50) gi upset Resuscitation Status Full Code Height 5 ft 6 in Weight 55.338 kg Pharmacy Admission Review Renal Dosing Renal Dosing: BUN 9 mg/dL (7-18) 11/06/24 06:15 Creatinine 0.6 mg/dL (0.55-1.02) 11/06/24 06:15 Medications needing adjustments: Reviewed (CrCl 88.2 mL/min) List of meds needing interventions: Current medications are okay Anticoagulation Anticoagulation: Hgb 12.2 g/dL (11.2-15.7) 11/06/24 06:15 Hct 37.4 % (36.0-46.0) 11/06/24 06:15 Plt Count 261 10^3/uL (130-400) 11/06/24 06:15 Creatinine 0.6 mg/dL (0.55-1.02) 11/06/24 06:15 DVT Prophylaxis: Reviewed Medications: Enoxaparin (40mg daily) Relevant Labs Relevant Labs: Sodium 142 mmol/L (136-145) 11/06/24 06:15 Potassium 4.4 mmol/L (3.5-5.1) 11/06/24 06:15 Chloride 103 mmol/L (98-107) 11/06/24 06:15 Magnesium 2.3 mg/dL (1.8-2.4) 11/06/24 06:15 Electrolytes, C-Reactive P, ESR: Reviewed Cardiac Review Cardiac Review: Troponin I 12 ng/L (<or=51) 11/05/24 20:52 BP, HR, EF%: Reviewed (BP and HR WNL, oxygen flow rate = 1) QTc Review QTc: Reviewed (492 from 11/05/24) IV to PO Switch IV Medications: Reviewed (cefepime and vancomycin) Home Meds Home Med List reviewed: Intervened Relevent Home Meds Not ordered & why?: Brankaid Max, ibuprofen (PRN), naproxen (PRN) and scopolamine patch Changed home probiotic order to lactobacillus (formulary) Recently filled sertraline (09/10) but not on home med list. Asked nurse to verify with patient, per nurse patient is not taking. Has clotrimazole on home med list but was last filled 12/12/23 for a 10 day supply. Called nurse to verify with patient if they actually use this at home. Per nurse patient does use but very rarely and is not currently taking. I canceled the order (no doses were given). Current Meds Current Medication Order Review: Reviewed Pharmacy Antibiotic Review Relevant Labs: WBC 4.16 10^3/uL (4.4-10.8) L 11/06/24 06:15 Temperature 37.0 C Pharmacy Antibiotic Activity: C/S review and Reviewed, no change Comments: Patient is on cefepime and vancomycin, day 1, for pneumonia. Vancomycin level was ordered for this morning at 1000, waiting for results. Will adjust dose as needed. Blood cultures currently pending. Patient is also on Tamiflu, day 1.
[2024-11-06] MEDS: Ipratropium/Albuterol 4 GM 120 PUFF INH IH ×2 (11:51→18:24)
[2024-11-06] MEDS: Budesonide/Formoterol 160/4.5 6 GM 60 PUFF INH IH ×2 (11:57→20:35)
--- NOTE | 2024-11-06 11:57 | W.PALLCONSUL ---
Date of service: 11/06/24 Time of Service: 11:00 History of Present Illness Narrative: Ms. Mace is a 58 y/o F currently hospitalized 2/2 flu and PNA; PMHx sig for Stage 4 lung cancer RUL (mets to RML and R femur), cervical dysplasia, anxiety Hospital Course: presented to [facility] ED on 11/05 w/increasing pain and LLE swelling from ED presentation 10/30 where was tx for cellulitis and PNA w/Keflex and doxy; cellulitis improved, PNA worsening via CT; abx switched to vanc/cefepime; now on 2L O2, baseline no O2 requirements; positive for Flu and PNA Oncology chart review: f/b Dr Hatch; 1st diagnosis 2016 w/RUL w/preference for herbal tx; represented to for additional treatment options in 2023, where PET scan confirmed growing RUL mass, RML and R femur spread; palliative treatment w/cisplatin/pemetrexed started on 10/31/23, completed 4 cycles; currently on pemetrexed alone, last treatment 10/25/24 on q3w cycle; due for f/u on 11/18 - Nakita reports dx ; had good response from last scans post treatment starting; unclear of benefit to current meds, maybe no benefit; reports Keytruda stopped d/t pneumonitis; it was not reviewed with her why she is just on one med at this time. Does not trust oncology team; does not think she would ever want radiation, they were referring her to rad for her lungs Nakita agrees to short visit w/PC today; she is extremely frustrated with entire system, feels her care is not being taken seriously, most frustrated with her home medications being withheld from her, these are mucinex and other OTC meds for resp conditions. denies having the flu - Resp: as above; frustrated they keep weaning her O2 down, when she feels she needs it and is dyspnic; phlegm build up bc hasn't had mucinex; no known history of COPD exacerbations w/treatments - Pain: everywhere, worst post chem, neuropathy pains s/p chemo; currently using apap, aleve, ibuprofen w/good effect PRN - Constipation, daily occurrence, worse w/chemo Social: lives w/daughter Fara, 16 y/o; Annette is her son, his fiance Miley good supports, loves her granddaughter, turning 4 in January. feels well supported by them. lifes in [place] ACP goals: would want to be a full code, would want to be intubated for a short time, would not want prolonged ventilation and would want a transfer if this were to happen at this hospital. - she would trust her son Annette to make decisions for her if she could not make them for herself, feels he has a good sense of her preferences - she never wants to be on steroids again after a negative response recently with them; small doses in her inhalers are okay, but would not want oral meds Assessment and Plan Assessment and plan (1) Influenza A: Status: Acute Assessment and plan: Rx'd Tamiflu, denied earlier does not feel has flu tested positive on this admission (2) Pneumonia: Status: Acute Assessment and plan: continue vanc and cefepime continues to require O2, baseline no oxygen requirements - additionally has lung cancer and COPD, continues to smoke (3) Constipation: Status: Acute Assessment and plan: chronic (4) Fatigue: Status: Acute (5) Metastatic primary lung cancer: Assessment and plan: Primary: RUL, dx 2017 per records; stage 4 Secondary sites: RML and R femur Treatment: palliative Radiation: pending consult; pt denies wanting rad Chemotherapy: s/p 4 cycles cisplatin/pemetrexed (started 10/31/23); now on pemerexed solo, last treatment 10/25/24 Followed-by: , Dr Hatch pt does not provide history which aligns w/chart review; need for ongoing review (6) Palliative care encounter: Status: Acute Assessment and plan: PC will continue to follow w/Nakita, suspect she will be discharged prior to next PC inpt avail; - f/u inpt on Monday, or outpatient at soonest available; PC will continue small visits, first establishing rapport and trust; - ongoing visits to review oncology preferences and treatment options; ACP documentation; joint terminal attack controller planning (7) Advance care planning: Status: Acute Assessment and plan: reviewed importance of ACP documentation; she defers completion of these today or tomorrow; wants to complete entire Advanced Directive; wound want her son Annette to be HCA reviewed code status; full code, would want intubation for a short time, but would not want to be kept alive indefinitely on machines reviewed oncology history per her report w/DH notes reviewed; they do not align reviewed steroid preferences; would not want them ever, even at small oral doses; denies COPD exacerbation hx spent 15m w/ACP Review of Systems Narrative: as per HPI PFSH All Active Problems (Updated 11/06/24 @ 17:10 by Radha Jaime NP) Advance care planning (Acute) Palliative care encounter (Acute) Influenza A (Acute) Sepsis (Acute) Discharge planning issues (Acute) On deep vein thrombosis (DVT) prophylaxis (Acute) Pneumonia (Acute) Generalized hyperhidrosis (Acute) Exposure to viral hepatitis (Acute) (Suspected) Constipation (Acute) Functional tremor (Acute) Vertigo (Acute) Weakness (Acute) Fibromyalgia (Acute) High risk medication use (Acute) History of tobacco abuse (Acute) High blood sugar (Acute) Pulmonary nodule (Acute) Nicotine dependence, cigarettes, uncomplicated (Acute) Mass of upper lobe of right lung (Acute) Lesion of ulnar nerve (Acute) Ovarian cyst (Acute) Fatigue (Acute) Depression (Chronic) Medical History Anxiety COPD (chronic obstructive pulmonary disease) Metastatic primary lung cancer Chronic back pain Cervical dysplasia Surgical History H/O LEEP Family History Mother Cancer family history of CA Mother bladder questioning ovarian ca Uncle brain CA Grand father CA unknown origin. 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 Do you feel safe at home: Yes Do you feel safe in your relationship?: Yes Additional Social history: 1 kid age 16 still at home Exam Narrative Exam Narrative: General: older than stated age female, ill appearing; sitting upright in hospital bed HEENT: hearing grossly WNL; normocephalic, atraumatic Resp: even and unlabored, NC in place, speaks full sentences w/no SOB; cough wet Psych: MS WNL, agitated; irritable; labile mood; thought process impoverished, perseverating, tangential; insight/judgment limited Results Last Vital Signs Temp 98.6 F 11/06/24 11:18 Pulse 106 H 11/06/24 11:18 Resp 16 11/06/24 07:28 BP 150/77 H 11/06/24 11:18 Pulse Ox 90 L 11/06/24 11:18 Labs 11/06/24 06:15 11/06/24 06:15 Labs: Laboratory Results - last 24 hr 11/05/24 11/05/24 11/05/24 19:48 20:36 20:52 WBC 4.27 L RBC 3.93 Hgb 13.0 Hct 39.8 MCV 101 H MCH 33.1 H MCHC 32.7 RDW 14.2 Plt Count 247 MPV 8.7 Immature Gran % See Differential Neutrophils % 34.0 Lymphocytes % 29.0 Atypical Lymphs % 2 Monocytes % 32.0 Eosinophils % 1.0 Basophils % 0.0 Metamyelocytes % 1 Myelocytes % 1 Nucleated RBC % 0.0 Absolute Neutrophils 1.45 Absolute Lymphocytes 1.32 Absolute Monocytes 1.37 H Absolute Eosinophils 0.04 Absolute Basophils 0.00 RBC Morphology See Below Macrocytosis 1+ VBG pH 7.32 VBG pCO2 56 H VBG pO2 42 VBG HCO3 29 H VBG Total CO2 27 VBG O2 Saturation 71 VBG Base Excess 3 Sodium 137 Potassium 3.7 Chloride 101 Carbon Dioxide 29.3 Anion Gap 6.7 BUN 10 Creatinine 0.7 Est GFR (CKD-EPI 2020) 99.57 Glucose 133 H Calcium 8.8 Magnesium 1.5 L Total Bilirubin 0.2 AST 50 H ALT 43 Alkaline Phosphatase 96 Troponin I Cancelled 12 Total Protein 6.7 Albumin 2.8 L Lipase 37 Random Vancomycin COVID-19 Source SARS-CoV-2 (PCR) Influenza Type A (PCR) Influenza Type B (PCR) RSV (PCR) 11/06/24 11/06/24 11/06/24 02:07 06:15 10:20 WBC 4.16 L RBC 3.67 L Hgb 12.2 Hct 37.4 MCV 102 H MCH 33.2 H MCHC 32.6 RDW 14.6 Plt Count 261 MPV 8.8 Immature Gran % 1.2 Neutrophils % 30.3 Lymphocytes % 37.0 Atypical Lymphs % Monocytes % 29.6 Eosinophils % 1.4 Basophils % 0.5 Metamyelocytes % Myelocytes % Nucleated RBC % 0.0 Absolute Neutrophils 1.26 Absolute Lymphocytes 1.54 Absolute Monocytes 1.23 H Absolute Eosinophils 0.06 Absolute Basophils 0.02 RBC Morphology Macrocytosis VBG pH VBG pCO2 VBG pO2 VBG HCO3 VBG Total CO2 VBG O2 Saturation VBG Base Excess Sodium 142 Potassium 4.4 Chloride 103 Carbon Dioxide 32.0 Anion Gap 7.0 BUN 9 Creatinine 0.6 Est GFR (CKD-EPI 2020) 103.33 Glucose 85 Calcium 8.7 Magnesium 2.3 Total Bilirubin 0.2 AST 47 H ALT 38 Alkaline Phosphatase 94 Troponin I Total Protein 6.6 Albumin 2.7 L Lipase Random Vancomycin 11.3 COVID-19 Source Nasopharynx SARS-CoV-2 (PCR) Negative Influenza Type A (PCR) Positive A Influenza Type B (PCR) Negative RSV (PCR) Negative Time Spent Time Spent with Patient Time Spent(min): 45
[2024-11-06] MEDS: Ondansetron O.D.T. 4 MG TABEF PO (12:36)
[2024-11-06] MEDS: VANCOMYCIN/WATER (PEG) 750 MG/150 ML BAG 150 MG IV (12:37)
[2024-11-06] MEDS: guaiFENesin 600 MG TABCR PO ×2 (14:34→19:38)
[2024-11-06 15:22] VITALS: BP 112/76; PULSE 85; RESP 20; TEMP 36.8; O2SAT 95
[2024-11-06] MEDS: Ondansetron O.D.T. 4 MG TABEF 8 MG PO (16:14)
[2024-11-06 17:56] LABS: MRSA PCR Negative (Negative)
[2024-11-06] MEDS: LORazepam 1 MG TAB 0.5 MG PO (20:54)
[2024-11-06] MEDS: Normal Saline Flush 10 ML SYR IVP (21:46)
[2024-11-07] VITALS (7 sets, daily range): BP systolic 102–117; BP diastolic 66–87; PULSE 82–100; RESP 16–20; TEMP 36.4–36.9; O2SAT 90–96
[2024-11-07] MEDS: VANCOMYCIN/WATER (PEG) 750 MG/150 ML BAG 150 MG IV (00:03)
[2024-11-07] MEDS: Normal Saline Flush 10 ML SYR IVP ×3 (00:03→08:50)
[2024-11-07] MEDS: Acetaminophen 500 MG TAB 1000 MG PO (04:33)
[2024-11-07] MEDS: CEFEPIME 2 GM in Normal Saline 100 ML IVPB (05:49)
[2024-11-07 07:07] LABS: Absolute Monocyte Count 1.16 10^3/uL (0.1-0.8); HCT 39.2 % (36.0-46.0); HGB 12.6 g/dL (11.2-15.7); MCH 32.9 pg (27.0-33.0); MCHC 32.1 % (32.0-36.0); MCV 102 fL (80-95); MPV 8.6 fL (8.0-11.0); Platelet Count 259 10^3/uL (130-400); RBC 3.83 10^6/uL (3.93-5.22); RDW 14.4 % (11.7-14.6); RDW-SD 54.1 fL; WBC 3.87 10^3/uL (4.4-10.8)
[2024-11-07 07:29] LABS: Anion Gap 5.3 mmol/L (3-11); BUN 6 mg/dL (7-18); CO2 31.7 mmol/L (21.0-32.0); CREATININE 0.5 mg/dL (0.55-1.02); Chloride 105 mmol/L (98-107); Estimated GFR 107.98 (mL/min/1.73m2); Glucose 93 mg/dL (74-106); Potassium 4.5 mmol/L (3.5-5.1); Sodium 142 mmol/L (136-145)
[2024-11-07 07:36] LABS: Absolute Eosinophil Count 0.08 10^3/uL (0.0-0.7); Absolute Lymphocyte Count 1.86 10^3/uL (1.2-3.4); Atypical Lymphocytes % 4 %; Bands % 0 %; Metamyelocytes % 2; Myelocytes % 0; Promyelocytes % 0
[2024-11-07 07:37] LABS: Diff Comment Manual Differential; Macrocytosis 1+; Other Cells % 0
[2024-11-07] MEDS: Cholecalciferol (Vitamin D3) 1,000 UNIT TAB 5000 UNITS PO (08:49)
[2024-11-07] MEDS: guaiFENesin 600 MG TABCR PO (08:50)
[2024-11-07] MEDS: Folic Acid 1 MG TAB PO (08:50)
[2024-11-07] MEDS: Lactobacillus Acidophilus CAP 1 CAP PO (08:50)
--- NOTE | 2024-11-07 09:04 | PDOC.CMPRO ---
Date of service: 11/07/24 Time of Service: 09:04 Care Management Progress Note Discharge Potential Discharge Needs: PCP F/U Appt Anticipated Barriers to Discharge: None Identified Patient/Family Education Needs: Review discharge instructions, discuss Ask Me Three Transportation: Private vehicle Plan: Anticipate Nakita will be discharged home with no new services when medically cleared. She will follow up with her PCP, Oncologist and plan of care and transport with family. CM will follow and continue to support discharge planning. Social Determinants of Health Screening Will the Patient Participate in the Screening?: Declined to provide
[2024-11-07] MEDS: Budesonide/Formoterol 160/4.5 6 GM 60 PUFF INH IH (09:07)
[2024-11-07] MEDS: Ipratropium/Albuterol 4 GM 120 PUFF INH IH ×2 (09:07→13:07)
[2024-11-07 11:16] LABS: Vancomycin, Random 8.6 ug/mL
[2024-11-07] MEDS: levoFLOXacin 500 MG, levoFLOXacin 250 MG 750 MG PO (13:26)
[2024-11-07] MEDS: Naproxen 250 MG TAB PO (13:26)
--- NOTE | 2024-11-07 13:28 | RESPIRATORY ---
11/07/2024 Exercise Oximetry Test Pt was 93% while eating but resting in bed on 1L with HR 100; Oxygen turned off and patient 91% SPO2 while eating in bed; pt got up to walk around the room, pt maintained SPO2 above 88% until she sat down on the bed when she requested to sit because of [place] and she desaturated to 84-86%SPO2. Pt recovered without Oxygen to 89% SPO2 while sitting in bed within 2 minutes. Patient does qualify for oxygen but due to [place] I will return to determine how much oxygen she requires. Pt is agreeable to respiratory return in an hour to walk again.
[2024-11-07] MEDS: Prochlorperazine 10 MG/2 ML VIAL 5 MG IVP (13:47)
--- NOTE | 2024-11-07 14:06 | DSE_ITS ---
Date of service: 11/07/24 Time of Service: 14:07 DS: Diagnosis Discharge Diagnosis (1) Influenza A: Status: Acute (2) Pneumonia: Status: Acute (3) Constipation: Status: Acute (4) Fatigue: Status: Acute (5) Metastatic primary lung cancer: (6) Palliative care encounter: Status: Acute (7) Advance care planning: Status: Acute Discharge Plan Disposition Patient Disposition: Home Condition: Improving Discharge Details Reason For Visit: pneumonia Admit Date/Time: 11/05/24 21:22 Admit Provider: Praveen Ortega Attending Provider: Praveen Ortega Primary Care Provider: Osvaldo Hatch Hospital Course Hospital Course: This 58-year-old female patient with a PMHx of non-oxygen dependent COPD, ongoing nicotine dependence, stage IV lung cancer status post 4 cycles of cisplatin and pemetrexed, failed Keytruda, currently on just pemetrexed as of October 25 presented to the ED for evaluation of pleuritic chest pain, chills,lightheadedness, nausea, and cough.The patient was seen 10/30/24 in the ED and discharge on Keflex and doxycycline for pneumonia and cellulitis which had resolved.Nevertheless, imaging showed worsening pneumonia with left-sided nodular infiltrates findings with negative leukocytosis, PH was 7.32 and PCO2 56. Oxygen supplementation of 2l/min was required necessary to maintain saturation 88% ; negative for PE. The patient was admitted by the hospitalist to the medical surgical floor for hypoxic respiratory failure, failed outpatient therapy for pneumonia with ongoing treatment with vancomycin and cefepime. Influnza A was positive and Tamiflu was ordered. The patient refused treatment stating that she does not have the flu. MRSA and blood cultures were negative, vancomycin and cefepime were stopped and levofloxacin was initiated. The patient qualified for home oxygen. Prednisone burst added to regimen. Comapzine added to home medicine regimen for ongoing nausea. The patient refused PT consult and will be discharged home on levofloxacin, tamiflu, prednisone burst and oral compazine. Follow-up with PCP within 7 days of discharge please. Seen by palliative care during the stay. Recommendation for PCP follow-up: Consider repeat imaging Oncology f/u Consider ongoing palliative care outpatient Discussed with Dr. Frost Home Meds and New Rx's Prescriptions: New oseltamivir [Tamiflu] 75 mg capsule 75 mg PO BID 5 Days Qty: 10 0RF levofloxacin 750 mg tablet 750 mg PO DAILY Qty: 3 0RF Rx Instructions: Take one pill daily starting on 11/08/2024 prochlorperazine maleate [Compazine] 5 mg tablet 5 mg PO TID PRNQty: 15 0RF prednisone 20 mg tablet 40 mg PO DAILY Qty: 8 0RF Continued guaifenesin [Mucinex] 600 mg tablet extended release 12hr 600 mg PO Q12H PRN ibuprofen 200 mg tablet See Rx Instructions PO Q6H PRN Rx Instructions: 400 - 800 mg orally every 6 hours PRN; naproxen sodium [Aleve] 220 mg tablet 440 mg PO Q12H PRN Combivent Respimat 20-100 mcg/actuation mist 1 puff inhalation Q6H Probiotic with Prebiotic 1 billion-250 cell-mg capsule 1 cap PO DAILY Adult 50 Plus Probiotic 4 billion cell capsule 4,000 mmu cells PO DAILY Rx Instructions: administer with a meal cholecalciferol (vitamin D3) 25 mcg (1,000 unit) capsule 125 mcg PO DAILY lorazepam 0.5 mg tablet 0.5 mg PO DAILY PRN (Reason: anxiety) Qty: 10 0RF Rx Instructions: Take 1/2 tablet to 1 tablet 15 minutes prior to infusion as needed albuterol sulfate [Ventolin HFA] 90 mcg/actuation HFA aerosol inhaler See Rx Instructions .ROUTE .COMPLEX Qty: 18 10RF Dose Instruction: INHALE TWO PUFFS BY MOUTH EVERY 4 TO 6 HOURS NEEDED FOR FOR SHORTNESS OF BREATH OR WHEEZE Rx Instructions: INHALE TWO PUFFS BY MOUTH EVERY 4 TO 6 HOURS NEEDED FOR FOR SHORTNESS OF BREATH OR WHEEZE clotrimazole 10 mg john 10 mg mucous membrane TID Qty: 30 3RF albuterol sulfate 2.5 mg /3 mL (0.083 %) solution for nebulization 2.5 mg inhalation Q4H PRN (Reason: shortness of breath or wheezing) Qty: 540 5RF ondansetron 4 mg tablet,disintegrating 4 mg PO Q8H PRN ipratropium bromide 0.02 % solution 2.5 ml inhalation Q6H PRNQty: 62.5 0RF Rx Instructions: This can be combined with your albuterol nebulizer solution folic acid 1 mg tablet 1 mg PO DAILY Patient Comments: TAKE ONE TABLET BY MOUTH EVERY DAY benzonatate 200 mg Capsule 200 mg PO BID PRN PRN (Reason: Cough) Qty: 30 0RF budesonide-formoterol [Symbicort] 160-4.5 mcg/actuation Hfa Aerosol Inhaler 1 puff inhalation BID Qty: 0 0RF Bronkaid Max 25 mg tablet 25 mg PO Q4H scopolamine base [Transderm-Scop] 1 mg over 3 days patch 3 day 1 patch transdermal Q72H No Action cephalexin 500 mg capsule 500 mg PO Q6H Patient Comments: TAKE ONE CAPSULE BY MOUTH FOUR TIMES A DAY FOR 7 DAYS Discharge Instructions Stand Alone Forms: Nursing Discharge Form Referrals: Osvaldo Hatch [Primary Care Provider] - 11/18/24 2:00 pm (Follow-up within 7 days of discharge please) Analy Tai [ [facility] STAFF PHYSICIAN] - (Follow-up with PCP within 7 days of discharge) Activity:: Activity as Tolerated Equipment/Supplies:: Oxygen (L/min Below) Diet:: As Tolerated Discharge Orders Discharge Orders: Discharge Order (Routine); Ordered 11/07/24 Ordered By: Diana Yin DS: Summary Time Spent with Patient providing and/or coordinating discharge services: Greater than 30 minutes Status at Discharge Functional status at discharge: uses cane/walker Overall status at discharge: patient is progressing back to baseline Mental Status: mental status grossly normal Speech and Movement: speech and movement normal Mood: congruent mood Affect: normal affect Quality:SDOH Health Related Social Needs: Health related social needs housing instability, house d, with risk of homelessness (Z59.811), material hardship(utilities) (Z59.12), problems related to housing/economic circumstances (Z59.89) Quality: VTE Deep Vein Thrombosis/Pulmonary Embolism Present on Admission: No Exam Narrative Exam Narrative: Constitutional HENMT: Facial structures slightly emaciated Neuro:alert and oriented X4 no neurological focal deficit Resp:Unlabored breathing, improved air flow diminished left - residual fine crackles to left base, clear dimished right-sided lung momin Cardio: regular rhythm, S1, S2, no murmur GI: Abdomen is not distended, soft and non tender, bowel sounds are present Back/spine/Pelvis: No back tenderness, normal alignment Extremities: strength 5/5 to bilateral lower and upper extremities Psych: RASS 0, irritable mood and sad affect. Psych Mental Status: mental status grossly normal Speech and Movement: speech and movement normal Mood: congruent mood Affect: normal affect DS: Data Vitals/I&O Vitals and I&O: Vital Signs Temperature 36.7 C 11/07/24 11:09 Temperature Source Temporal Artery Scan 11/07/24 11:09 Pulse 87 11/07/24 11:09 Pulse 85 11/05/24 21:51 Respiratory Rate 20 11/07/24 11:09 Respiratory Effort Short of Breath 11/05/24 22:50 Respiratory Depth Normal 11/05/24 19:52 Respiratory Pattern Tachypnea 11/05/24 22:50 Blood Pressure 115/70 11/07/24 11:09 Blood Pressure Mean 74 11/05/24 21:50 Pulse Oximetry 95 11/07/24 11:09 Oxygen Delivery Method Nasal Cannula 11/07/24 11:09 Oxygen Flow Rate 1 11/07/24 11:09 Pain Level 7 11/07/24 13:26 Comment RN notified 11/07/24 11:09 Comment 4L NC 11/05/24 21:50 Intake & Output 11/06/24 11/07/24 11/07/24 23:59 11:59 23:59 Intake Total 550 / 650 200 / 300 100 / 300 Balance 550 / 650 200 / 300 100 / 300 Intake: IV 550 / 650 200 / 300 100 / 300 Other: Urine Color Yellow Urine Appearance Clear Urine Odor Normal Comment pt goes to toilet independently. urine unmeasured. Patient voids ind. in toilet. Data Completed and Pending Labs on day of discharge: Labs from last 24 hours 11/07/24 11/07/24 11/07/24 13:30 10:05 06:25 WBC 3.87 L RBC 3.83 L Hgb 12.6 Hct 39.2 MCV 102 H MCH 32.9 MCHC 32.1 RDW 14.4 Plt Count 259 MPV 8.6 Immature Gran % 0.0 Neutrophils % 18.0 Band Neutrophils % 0 Lymphocytes % 44.0 Atypical Lymphs % 4 Monocytes % 30.0 Eosinophils % 2.0 Basophils % 0.0 Metamyelocytes % 2 Myelocytes % 0 Promyelocytes % 0 Other Cells % 0 Nucleated RBC % 0.0 Absolute Neutrophils 0.70 L Absolute Lymphocytes 1.86 Absolute Monocytes 1.16 H Absolute Eosinophils 0.08 Absolute Basophils 0.00 RBC Morphology See Below Macrocytosis 1+ Sodium 142 Potassium 4.5 Chloride 105 Carbon Dioxide 31.7 Anion Gap 5.3 BUN 6 L Creatinine 0.5 L Est GFR (CKD-EPI 2020) 107.98 Glucose 93 Calcium 9.0 Random Vancomycin 8.6 Urine Legionella Ag M. pneumoniae Source Pending M. pneumoniae (PCR) Pending MRSA (TEM-PCR) Ur Strep pneumoniae Ag 11/06/24 11/06/24 23:00 16:20 WBC RBC Hgb Hct MCV MCH MCHC RDW Plt Count MPV Immature Gran % Neutrophils % Band Neutrophils % Lymphocytes % Atypical Lymphs % Monocytes % Eosinophils % Basophils % Metamyelocytes % Myelocytes % Promyelocytes % Other Cells % Nucleated RBC % Absolute Neutrophils Absolute Lymphocytes Absolute Monocytes Absolute Eosinophils Absolute Basophils RBC Morphology Macrocytosis Sodium Potassium Chloride Carbon Dioxide Anion Gap BUN Creatinine Est GFR (CKD-EPI 2020) Glucose Calcium Random Vancomycin Urine Legionella Ag Pending M. pneumoniae Source M. pneumoniae (PCR) MRSA (TEM-PCR) Negative Ur Strep pneumoniae Ag Pending 11/07/24 13:30 Sputum Sputum Culture - Pending 11/07/24 13:30 Sputum Gram Stain - Pending Preliminary micro results at discharge 11/07/24 13:30 Sputum Culture - Pending Sputum Gram Stain - Pending 11/06/24 10:20 Blood Culture - Preliminary Blood NO GROWTH 24 HOURS 11/06/24 10:30 Blood Culture - Preliminary Blood NO GROWTH 24 HOURS PFSH All Active Problems (Updated 11/07/24 @ 14:06 by Diana Yin APRN) Advance care planning (Acute) Palliative care encounter (Acute) Influenza A (Acute) Sepsis (Acute) Discharge planning issues (Acute) On deep vein thrombosis (DVT) prophylaxis (Acute) Pneumonia (Acute) Generalized hyperhidrosis (Acute) Exposure to viral hepatitis (Acute) (Suspected) Constipation (Acute) Functional tremor (Acute) Vertigo (Acute) Weakness (Acute) Fibromyalgia (Acute) High risk medication use (Acute) History of tobacco abuse (Acute) High blood sugar (Acute) Pulmonary nodule (Acute) Nicotine dependence, cigarettes, uncomplicated (Acute) Mass of upper lobe of right lung (Acute) Lesion of ulnar nerve (Acute) Ovarian cyst (Acute) Fatigue (Acute) Depression (Chronic) Medical History Anxiety COPD (chronic obstructive pulmonary disease) Metastatic primary lung cancer Chronic back pain Cervical dysplasia Surgical History H/O LEEP Family History Mother Cancer family history of CA Mother bladder questioning ovarian ca Uncle brain CA Grand father CA unknown origin. 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
[2024-11-07] MEDS: predniSONE 20 MG TAB 40 MG PO (14:45)
--- NOTE | 2024-11-07 16:05 | CMDISCH_ITS ---
Date of service: 11/07/24 Time of Service: 16:05 LACE Index Scoring Tool Questions: Length of Stay (in days): 2 Was the patient admitted via the E.D.?: Yes Comorbidities: Chronic Pulmonary Disease and Metastatic Solid Tumor E.D. Visits: 5 Answers: Total Score: 14 Risk of Readmission: High Risk Care Management Discharge Plan Reason for Hospitalization: pneumonia Discharge Plan: Nakita will be discharged home with new home oxygen at one pulse-dose liter. She will follow up with her community providers and plan of care and transport with family. Patient/Family Education Needs: Review of discharge instructions, limitations, follow up plan and discuss Ask Me Three' Services Needed at Discharge: Oxygen Therapy SDOH Health Related Social Needs: Health related social needs housing instability, house d, with risk of homelessness (Z59.811), material hardship(utilities) (Z59.12), problems related to housing/economic circumstances (Z59.89)
[2024-11-07 21:36] LABS: Legionella Ag Detection Urine Negative (Negative)
[2024-11-10 16:37] LABS: Streptococcus Pneumoniae Ag, U Negative (Negative)
[2024-11-12 15:32] LABS: Mycoplasma Pneumoniae PCR Negative (Negative); Specimen source Sputum
== END 2024-11-07 15:49 | disposition home or self-care (01) | DRG 871 ==
LOC: ER 21:44 → MS 22:31
PROVIDERS: Admitting Provider Internal Medicine; Emergency Provider Emergency Medicine; PCP Internal Medicine Medical Oncology; Responsible Provider Nurse Practitioner Acute Care; Visit Provider Internal Medicine
DX: A41.9 Sepsis, unspecified organism (principal); J18.9 Pneumonia, unspecified organism; J96.01 Acute respiratory failure with hypoxia; D84.821 Immunodeficiency due to drugs; J44.0 Chronic obstructive pulmonary disease with (acute) lower respiratory infection; C34.11 Malignant neoplasm of upper lobe, right bronchus or lung; C79.51 Secondary malignant neoplasm of bone; C78.01 Secondary malignant neoplasm of right lung; J10.1 Influenza due to other identified influenza virus with other respiratory manifestations; K59.00 Constipation, unspecified; F17.210 Nicotine dependence, cigarettes, uncomplicated; G25.2 Other specified forms of tremor; M79.7 Fibromyalgia; R73.9 Hyperglycemia, unspecified; R61 Generalized hyperhidrosis; F32.A Depression, unspecified; Z79.69 Long term (current) use of other immunomodulators and immunosuppressants; Z79.899 Other long term (current) drug therapy
CPT/HCPCS: 00123; 36415; 71275; 80048; 80053; 82805; 83690; 87040; 87449; 87637; 87641; 93005; 94640; 96361; 96365; 96368; 99285; 80202; 83735; 84484; 85025; 87070; 87205; 87581; 87899; 93010; 94664; 94760; 99222; 99233; 99239; J0692; J0780; J3372; J3475; J3490; J7512; J7620

== ENCOUNTER 2024-11-19 00:51 | Outpatient (CLI) | payer MEDICAID, SELFPAY ==
--- NOTE | 2024-11-19 14:29 | DI.CT_ITS ---
Exam(s) CT CHEST WO EXAM: CT CHEST WO CLINICAL HISTORY: WHEEZING,R06.2,? PNEUMONIA. TECHNIQUE: Imaging protocol: Axial computed tomography images were obtained and coronal and sagittal reformatted images were created and reviewed. Computer aided detection (CAD) was utilized. CONTRAST MATERIAL: Noncontrast COMPARISON: CT CT CHEST/ABD/PEL W from 10/30/[address] CHEST PE CTA from 11/05/2024 FINDINGS: Pulmonary parenchyma: Stable appearance of large right upper lobe mass centered around the right uppe r hilum. Stable appearance of large anterior right upper lobe bulla. Mild underlying emphysematous changes. Mild patchy bilateral lower lobe infiltrates and left upper lobe infiltrates.. The finding s appear slightly worse at the right posterior lung base. There is mild bronchial wall thickening an d some mucous plugging of distal bronchi. Evaluation of this area is limited by respiratory motion. No focal consolidating pneumonia. Interstitial changes: None. Emphysema: None. Tracheobronchial tree: No mucous plugging. No bronchiectasis . Pleura: No effusion or pneumothorax. Heart: The heart is not dilated. The coronary arteries show mild calcifications. Aorta: Thoracic aorta non-dilated. Mild atherosclerotic changes. Lymph nodes: No enlarged lymph nodes. Bones: Degenerative changes are seen. No evidence of compression fracture. Upper abdomen: Unremarkable. Soft tissues: Unremarkable. IMPRESSION: Mild interval worsening of previously noted micronodular infiltrates, greatest in the right lung base . Stable appearance of right upper lobe mass. RADIATION DOSE DELIVERED: Total DLP Total DLP DATA REPOSITORY: All CT scans at this facility are submitted to the National Radiology Data Registry (NRDR) Dose Index Registry (DIR) with the [employer] (A[employer]). RADIATION OPTIMIZATION: All CT scans at this facility use at least one of these dose optimization te chniques: automated exposure control; mA and/or kV adjustment per patient size (includes targeted exa ms where dose is matched to clinical indication); or iterative reconstruction.
== END 2024-11-19 01:11 ==
LOC: DI 00:51
PROVIDERS: PCP Internal Medicine Medical Oncology; Visit Provider Nurse Practitioner Family
DX: R91.8 Other nonspecific abnormal finding of lung field (principal)
CPT/HCPCS: 71250

== ENCOUNTER 2024-11-30 16:49 | Emergency (ER) | payer MEDICAID, SELFPAY ==
[2024-11-30] VITALS (14 sets, daily range): BP systolic 113–120; BP diastolic 70–74; PULSE 107–121; RESP 16–20; TEMP 36.7; O2SAT 91–95
[2024-11-30 17:39] LABS: Lactate 0.9 mmol/L (<or=2.0)
[2024-11-30 17:41] LABS: HCT 37.9 % (36.0-46.0); HGB 12.7 g/dL (11.2-15.7); MCH 32.6 pg (27.0-33.0); MCHC 33.5 % (32.0-36.0); MCV 97 fL (80-95); MPV 8.5 fL (8.0-11.0); Platelet Count 428 10^3/uL (130-400); RDW-SD 49.3 fL; WBC 11.54 10^3/uL (4.4-10.8)
[2024-11-30 17:44] LABS: ESR 63 mm/hr (0-30)
[2024-11-30 18:00] LABS: Absolute Lymphocyte Count 1.73 10^3/uL (1.2-3.4); Absolute Monocyte Count 2.19 10^3/uL (0.1-0.8); Absolute Neutrophil Count 7.62 10^3/uL (1.2-6.7); Atypical Lymphocytes % 1 %; Diff Comment Manual Differential; RBC Morphology Normal
--- NOTE | 2024-11-30 18:00 | DI.RAD_ITS ---
Exam(s) XR KNEE RT 3V AP,LAT,ALBIN EXAM: XR KNEE RT 3V AP,LAT,ALBIN CLINICAL HISTORY: comparison for inflammatory arthritis. TECHNIQUE: 2D digital imaging was performed of the right knee. Three views obtained. Merchant, AP, l ateral and PA tunnel views were obtained. COMPARISON: CR XR KNEE LT 3V AP,LAT,ALBIN from 11/30/2024 FINDINGS: BONES: No acute fracture is present. No bony destructive lesion is seen. JOINTS: The knee is normally aligned. No joint effusion is seen. There is no periarticular osteopenia . No joint space narrowing is seen. No erosions are present. SOFT TISSUE: Normal. IMPRESSION: Unremarkable radiographs of the right knee. No radiographic evidence of arthritic disease. DATA REPOSITORY: RADIATION DOSE DELIVERED:
--- NOTE | 2024-11-30 18:00 | DI.RAD_ITS ---
Exam(s) XR KNEE LT 3V AP,LAT,ALBIN EXAM: XR KNEE LT 3V AP,LAT,ALBIN CLINICAL HISTORY: R knee joint pain/swelling. TECHNIQUE: 2D digital imaging was performed of the left knee. Three images were obtained. AP, late ral and PA tunnel views were obtained. COMPARISON: No exams were available for comparison FINDINGS: BONES: No acute fracture is present. No bony destructive lesion is seen. JOINTS: The knee is normally aligned. No joint effusion is seen. No loose body. SOFT TISSUE: Normal. IMPRESSION: No acute abnormality. DATA REPOSITORY: RADIATION DOSE DELIVERED:
[2024-11-30 18:01] LABS: ALT 18 U/L (14-59); AST 24 U/L (15-37); Alkaline Phosphatase 96 U/L (46-116); Anion Gap 8.1 mmol/L (3-11); BUN 13 mg/dL (7-18); Bilirubin, Total 0.5 mg/dL (0.2-1.0); C-Reactive Protein 8.32 mg/dL (<or=0.5); CO2 27.9 mmol/L (21.0-32.0); CREATININE 0.6 mg/dL (0.55-1.02); Calcium 9.2 mg/dL (8.5-10.1); Chloride 100 mmol/L (98-107); Estimated GFR 103.33 (mL/min/1.73m2); Glucose 108 mg/dL (74-106); Potassium 4.1 mmol/L (3.5-5.1); Sodium 136 mmol/L (136-145); Total Protein 7.1 g/dL (6.4-8.2); Uric Acid 3.9 mg/dL (2.6-6.0)
[2024-11-30 18:08] LABS: Procalcitonin 1.57 ng/mL
--- NOTE | 2024-11-30 18:36 | W.ED.GENAD ---
Discharge Plan Disposition Patient Disposition: Home Condition: Stable Discharge Details Clinical Impression: Undifferentiated inflammatory arthritis Primary Care Provider: Osvaldo Hatch ED Provider: Omi Mejia Home Meds and New Rx's Prescriptions: New prednisone 5 mg tablet 5 mg PO DAILY 14 Days Qty: 14 0RF Continued guaifenesin [Mucinex] 600 mg tablet extended release 12hr 600 mg PO Q12H PRN ibuprofen 200 mg tablet See Rx Instructions PO Q6H PRN Rx Instructions: 400 - 800 mg orally every 6 hours PRN; budesonide-formoterol [Symbicort] 160-4.5 mcg/actuation HFA aerosol inhaler 1 puff inhalation 6XD PRN (Reason: wheezing) Qty: 10.2 12RF naproxen sodium [Aleve] 220 mg tablet 440 mg PO Q12H PRN Combivent Respimat 20-100 mcg/actuation mist 1 puff inhalation Q6H Probiotic with Prebiotic 1 billion-250 cell-mg capsule 1 cap PO DAILY Adult 50 Plus Probiotic 4 billion cell capsule 4,000 mmu cells PO DAILY Rx Instructions: administer with a meal cholecalciferol (vitamin D3) 25 mcg (1,000 unit) capsule 125 mcg PO DAILY lorazepam 0.5 mg tablet 0.5 mg PO DAILY PRN (Reason: anxiety) Qty: 10 0RF Rx Instructions: Take 1/2 tablet to 1 tablet 15 minutes prior to infusion as needed albuterol sulfate [Ventolin HFA] 90 mcg/actuation HFA aerosol inhaler See Rx Instructions .ROUTE .COMPLEX Qty: 18 10RF Dose Instruction: INHALE TWO PUFFS BY MOUTH EVERY 4 TO 6 HOURS NEEDED FOR FOR SHORTNESS OF BREATH OR WHEEZE Rx Instructions: INHALE TWO PUFFS BY MOUTH EVERY 4 TO 6 HOURS NEEDED FOR FOR SHORTNESS OF BREATH OR WHEEZE albuterol sulfate 2.5 mg /3 mL (0.083 %) solution for nebulization 2.5 mg inhalation Q4H PRN (Reason: shortness of breath or wheezing) Qty: 540 5RF ondansetron 4 mg tablet,disintegrating 4 mg PO Q8H PRN gabapentin 100 mg capsule 100 mg PO QHS ipratropium bromide 0.02 % solution 2.5 ml inhalation Q6H PRNQty: 62.5 0RF Rx Instructions: This can be combined with your albuterol nebulizer solution folic acid 1 mg tablet 1 mg PO DAILY Patient Comments: TAKE ONE TABLET BY MOUTH EVERY DAY Bronkaid Max 25 mg tablet 25 mg PO Q4H prochlorperazine maleate [Compazine] 5 mg tablet 5 mg PO TID PRNQty: 15 0RF clotrimazole 10 mg john 10 mg mucous membrane TID PRN Discharge Instructions Instructions: Physical activity for people with arthritis, Prednisone Additional Instructions: You were seen in the emergency department for your likely inflammatory arthritis, you have polyarthritis with pain and mild swelling, your uric acid level is negative, you have elevated inflammatory markers, we are going to treat this with daily prednisone, you are on Tylenol and NSAIDs as well as gabapentin, please continue these, follow-up with your primary care provider with referral to rheumatology, we have a tick panel pending as well as a rheumatoid factor test pending, for severe increase in redness and fever and red streaking up the leg please return to the emergency department at once I do not feel this is related to infection at this time. Referrals: Osvaldo Hatch [Primary Care Provider] - Discharge Data Discharge Date/Time-TO BE ENTERED AT DEPARTURE: 11/30/24 19:54 HPI General Date/Time Provider Initiated Documentation: 11/30/24 16:50. HPI Narrative: 58 year-old female presents to ED today by POV/ambulating with a chief complaint of chronic neuropathy to feet, started on gabapentin recently by [facility], feels that it is attacking every muscle in her body- reporting multiple joint pain/swelling with onset over days- recently had chemotherapy for stage IV lung CA. Quality described as pain all over, no radiation to fever, intractable nausea or vomiting, shortness of breath or respiratory distress, chest pain, visual changes, dizziness or syncope. Patient endorses pain worse in right ankle and knee than left but bilateral fingers, wrists, shoulders. Severity is described as 10 out of 10 calmly. Palliating factors include Tylenol, gabapentin, ibuprofen. Provoking factors include nothing specific. Patient not anticoagulated. Related Data Home Medications ?Medication ?Instructions ?Recorded ?Confirmed cholecalciferol (vitamin D3) 25 125 mcg PO DAILY 01/05/22 11/30/24 mcg (1,000 unit) capsule guaifenesin 600 mg tablet, 600 mg PO Q12H PRN 08/22/23 11/30/24 extended release 12 hr (Mucinex) naproxen sodium 220 mg tablet 440 mg PO Q12H PRN 09/28/23 11/30/24 (Aleve) lorazepam 0.5 mg tablet 0.5 mg PO DAILY PRN anxiety #10 11/15/23 11/30/24 tabs albuterol sulfate 90 mcg/actuation See Rx Instructions .Route 12/12/23 11/30/24 aerosol inhaler (Ventolin HFA) .COMPLEX #18 grams albuterol sulfate 2.5 mg/3 mL 2.5 mg (3 mL) inhalation Q4H PRN 12/22/23 11/30/24 (0.083 %) solution for nebulization shortness of breath or wheezing #540 mL ondansetron 4 mg disintegrating 4 mg PO Q8H PRN 04/24/24 11/30/24 tablet Bacillus coagulans-inulin 1 1 cap PO DAILY 05/23/24 11/30/24 billion cell-250 mg capsule (Probiotic with Prebiotic) ipratropium 20 mcg-albuterol 100 1 puff inhalation Q6H 05/23/24 11/30/24 mcg/actuation mist for inhalation (Combivent Respimat) lactobacillus combination no.9 4 4,000 mmu cells PO DAILY 05/23/24 11/30/24 billion cell capsule (Adult 50 Plus Probiotic) ipratropium bromide 0.02 % 2.5 ml inhalation Q6H PRN #62.5 mL 07/14/24 11/30/24 solution for inhalation folic acid 1 mg tablet 1 mg PO DAILY 07/21/24 11/30/24 ibuprofen 200 mg tablet See Rx Instructions PO Q6H PRN 10/24/24 11/30/24 ephedrine sulfate 25 mg tablet 25 mg PO Q4H 11/05/24 11/30/24 (Bronkaid Max) prochlorperazine maleate 5 mg 5 mg PO TID PRN #15 tabs 11/07/24 11/30/24 tablet (Compazine) gabapentin 100 mg capsule 100 mg PO QHS 11/25/24 11/30/24 budesonide-formoterol HFA 160 1 puff inhalation 6XD PRN wheezing 05/14/25 05/17/25 mcg-4.5 mcg/actuation aerosol #10.2 grams inhaler (Symbicort) clotrimazole 10 mg john 10 mg mucous membrane TID PRN 11/30/24 11/30/24 prednisone 5 mg tablet 5 mg PO DAILY 14 days #14 tabs 11/30/24 Previous Rx's ?Medication ?Instructions ?Recorded lorazepam 0.5 mg tablet 0.5 mg PO DAILY PRN anxiety #10 11/15/23 tabs albuterol sulfate 90 mcg/actuation See Rx Instructions .Route 12/12/23 aerosol inhaler (Ventolin HFA) .COMPLEX #18 grams albuterol sulfate 2.5 mg/3 mL 2.5 mg (3 mL) inhalation Q4H PRN 12/22/23 (0.083 %) solution for nebulization shortness of breath or wheezing #540 mL ipratropium bromide 0.02 % 2.5 ml inhalation Q6H PRN #62.5 mL 07/14/24 solution for inhalation prochlorperazine maleate 5 mg 5 mg PO TID PRN #15 tabs 11/07/24 tablet (Compazine) budesonide-formoterol HFA 160 1 puff inhalation 6XD PRN wheezing 11/27/24 mcg-4.5 mcg/actuation aerosol #10.2 grams inhaler (Symbicort) prednisone 5 mg tablet 5 mg PO DAILY 14 days #14 tabs 11/30/24 Allergies Allergy/AdvReac Type Severity Reaction Status Date / Time pseudoephedrine (From AdvReac Unknown Other (See Verified 11/30/24 16:58 Sudafed) Comment) narcotics AdvReac Unknown gi upset Uncoded 11/30/24 16:58 General Stated Complaint: GenMedical WES: 3 Review of Systems All systems reviewed & are unremarkable except as noted in HPI and below Exam Narrative Exam Narrative: GENERAL APPEARANCE: Well-nourished, non-toxic, awake and alert, atraumatic, no acute distress. SKIN: Warm, pink, dry, mild diffuse joint swelling worse in right knee than other joints, mild pink erythema to right foot that has been present for weeks, no lesions or fluctuant swellings HEAD: Normocephalic, atraumatic, normal hair distribution for gender/age. EYES: Normal conjunctiva, no exudates on lids/lashes. ENT: Nares patent, no circumoral cyanosis, no facial swelling NECK: Supple, trachea midline, painless cervical ROM, no nuchal rigidity. LUNGS/CHEST: Lungs CTA bilaterally-no rhonchi/rales/wheezes diffusely, non-labored respirations, normal A/P diameter, symmetrical expansion, no chest wall deformity HEART (CV/PV): Regular rate- mildly tachycardic, has been tachycardic at last 2 visits dating back to late October- and rhythm without murmur, no peripheral edema, no JVD. ABDOMEN: Soft, non-distended, no guarding, no tenderness. MSK: Normal ROM, no swelling/deformity to bilateral UEs or LEs, moving all extremities without weakness, no cyanosis, spine midline without tenderness, normal curvature, no pain with passive range of motion at any joints of upper or lower extremities NEURO: Mental Status AAOx4 - alert to person, place, time, events No facial droop, no forehead involvement. Motor: No focal weakness - strength 5/5 in bilateral UEs and LEs, proximal and distal, symmetric. Sensory: sensation intact to light touch globally. Gait normal: patient ambulated without ataxia into ED room. PSYCH: euthymic, cooperative, pleasant, appropriate speech Course Vital Signs Vital signs: Vital Signs Temperature 36.7 C 11/30/24 16:52 Pulse 118 H 11/30/24 16:52 Respiratory Rate 20 11/30/24 16:52 Blood Pressure 120/74 11/30/24 16:52 Pulse Oximetry 94 11/30/24 16:52 Temperature 36.7 C 11/30/24 16:52 Temperature Source Oral 11/30/24 16:52 Pulse 117 H 11/30/24 18:20 Respiratory Rate 16 11/30/24 17:32 Respiratory Effort Normal, Non-Labored 11/30/24 17:32 Respiratory Depth Normal 11/30/24 17:32 Respiratory Pattern Normal 11/30/24 17:32 Blood Pressure 113/70 11/30/24 17:01 Blood Pressure Mean 84 11/30/24 17:01 Blood Pressure Position Sitting 11/30/24 16:52 Pulse Oximetry 95 11/30/24 18:20 Oxygen Delivery Method Room Air 11/30/24 16:52 Oxygen Flow Rate 0 05/17/25 16:52 Pain Level 10 11/30/24 16:52 Lab/Test Results Lab/Test Results: Laboratory Tests Range/Units 11/30/24 11/30/24 11/30/24 17:30 17:30 17:30 WBC (4.4-10.8) 10^3/uL 11.54 H RBC (3.93-5.22) 10^6/uL 3.90 L Hgb (11.2-15.7) g/dL 12.7 Hct (36.0-46.0) % 37.9 MCV (80-95) fL 97 H MCH (27.0-33.0) pg 32.6 MCHC (32.0-36.0) % 33.5 RDW (11.7-14.6) % 14.0 Plt Count (130-400) 10^3/uL 428 H MPV (8.0-11.0) fL 8.5 Immature Gran % % 0.0 Neutrophils % % 66.0 Lymphocytes % % 14.0 Atypical Lymphs % % 1 Monocytes % % 19.0 Eosinophils % % 0.0 Basophils % % 0.0 Nucleated RBC % (0.0-0.3) % 0.0 Absolute Neutrophils (1.2-6.7) 10^3/uL 7.62 H Absolute Lymphocytes (1.2-3.4) 10^3/uL 1.73 Absolute Monocytes (0.1-0.8) 10^3/uL 2.19 H Absolute Eosinophils (0.0-0.7) 10^3/uL 0.00 Absolute Basophils (0.0-0.2) 10^3/uL 0.00 RBC Morphology Normal ESR (0-30) mm/hr 63 H VBG Lactate (<or=2.0) mmol/L 0.9 Sodium (136-145) mmol/L 136 Potassium (3.5-5.1) mmol/L 4.1 Chloride (98-107) mmol/L 100 Carbon Dioxide (21.0-32.0) mmol/L 27.9 Anion Gap (3-11) mmol/L 8.1 BUN (7-18) mg/dL 13 Creatinine (0.55-1.02) mg/dL 0.6 Est GFR (CKD-EPI 2020) (mL/min/1.73m2) 103.33 Glucose (74-106) mg/dL 108 H Uric Acid Cancelled 3.9 Calcium (8.5-10.1) mg/dL 9.2 Total Bilirubin (0.2-1.0) mg/dL 0.5 AST (15-37) U/L 24 ALT (14-59) U/L 18 Alkaline Phosphatase (46-116) U/L 96 C-Reactive Protein Cancelled 8.32 H Total Protein (6.4-8.2) g/dL 7.1 Albumin (3.4-5.0) g/dL 3.0 L Procalcitonin ng/mL 1.57 Medical Decision Making This dictation utilizes [id number] dictation software and may contain unedited grammatical errors. 58 year-old female presents to ED today by POV/ambulating with a chief complaint of chronic neuropathy to feet, started on gabapentin recently by [facility], feels that it is attacking every muscle in her body- reporting multiple joint pain/swelling with onset over days- recently had chemotherapy for stage IV lung CA. Quality described as pain all over, no radiation to fever, intractable nausea or vomiting, shortness of breath or respiratory distress, chest pain, visual changes, dizziness or syncope. Patient endorses pain worse in right ankle and knee than left but bilateral fingers, wrists, shoulders. Severity is described as 10 out of 10 calmly. Palliating factors include Tylenol, gabapentin, ibuprofen. Provoking factors include nothing specific. Patients' medical history: COPD, metastatic lung cancer, chronic back pain. Family and social history: Noncontributory. Pertinent exam findings / vital signs include multiple joint tenderness, no pain with passive range of motion, mild swelling to right knee without overt redness, mild erythematous right foot of a chronic nature. Patient, neurovascularly intact diffusely. Differential / pathologies of concern include Inflammatory arthritis, psoriatic arthritis, rheumatoid arthritis, not septic arthritis. Fibromyalgia, reaction to chemotherapy. Diagnostic studies of: - CBC, CMP, CRP/ESR, lactate, uric acid, procalcitonin, x-ray bilateral knees, right knee is the affected knee, send out of rheumatoid factor. - CBC shows a nonspecific leukocytosis of 11.5, no anemia, shows mildly elevated absolute neutrophils - CRP and ESR are significantly elevated with a CRP of 8.32, ESR of 63- nonspecific - Lactate negative, procal 1.57 - CMP shows no actionable abnormality - Uric acid negative - X-ray of the right knee shows no bony lesions, contralateral x-ray is benign Interventions of: -Prednisone, oxycodone to go-refer to rheumatology. ED Course/Assessment/Plan: 58-year-old female presents with pain to multiple joints recently started on gabapentin for her neuropathy and nerve pain, received around chemotherapy last month and has 10 out of 10 pain all over her body, she has no pain with passive range of motion to multiple affected joints and no warmth to touch or significant severe swelling, she does have elevated inflammatory markers and I do question whether she has an undifferentiated inflammatory arthritis at present, I recommend she follow-up with rheumatology at [facility]. Patient does have concerns with her elevated CRP and ESR but nonspecific findings and hopeful resolution with prednisone I did stressed very strict return criteria for any worsening joint pain especially with fevers, any evidence of red streaking up any extremity and to follow-up with her PCP for possible antibiotics should the redness of her foot that has been present for some time get worse. Has PCP follow-up very soon. Findings not consistent with septic arthritis, sepsis, gout, bony lesions. Disposition of Undifferentiated Inflammatory Arthritis. Patient verbalized understanding of the plan and return to ED criteria and engaged in shared decision making. Medical Records Medical records reviewed: Yes I reviewed the patient's medical records. Imaging Data Radiologic Study: Attestation: I personally reviewed and interpreted this imaging study as follows: Imaging: X-Ray Radiologist's impression: EXAM: XR KNEE RT 3V AP,LAT,ALBIN CLINICAL HISTORY: comparison for inflammatory arthritis. TECHNIQUE: 2D digital imaging was performed of the right knee. Three views obtained. Merchant, AP, lateral and PA tunnel views were obtained. COMPARISON: CR XR KNEE LT 3V AP,LAT,ALBIN from 11/30/2024 FINDINGS: BONES: No acute fracture is present. No bony destructive lesion is seen. JOINTS: The knee is normally aligned. No joint effusion is seen. There is no periarticular osteopenia. No joint space narrowing is seen. No erosions are present. SOFT TISSUE: Normal. IMPRESSION: Unremarkable radiographs of the right knee. No radiographic evidence of arthritic disease. Radiologic Study #2: Attestation: I personally reviewed and interpreted this imaging study as follows: Imaging: X-Ray Radiologist's impression: EXAM: XR KNEE LT 3V AP,LAT,ALBIN CLINICAL HISTORY: R knee joint pain/swelling. TECHNIQUE: 2D digital imaging was performed of the left knee. Three images were obtained. AP, lateral and PA tunnel views were obtained. COMPARISON: No exams were available for comparison FINDINGS: BONES: No acute fracture is present. No bony destructive lesion is seen. JOINTS: The knee is normally aligned. No joint effusion is seen. No loose body. SOFT TISSUE: Normal. IMPRESSION: No acute abnormality. Lab Data Lab results reviewed: Yes I reviewed the patient's lab results. Labs: Laboratory Tests Range/Units 11/30/24 11/30/24 11/30/24 17:30 17:30 17:30 WBC (4.4-10.8) 10^3/uL 11.54 H RBC (3.93-5.22) 10^6/uL 3.90 L Hgb (11.2-15.7) g/dL 12.7 Hct (36.0-46.0) % 37.9 MCV (80-95) fL 97 H MCH (27.0-33.0) pg 32.6 MCHC (32.0-36.0) % 33.5 RDW (11.7-14.6) % 14.0 Plt Count (130-400) 10^3/uL 428 H MPV (8.0-11.0) fL 8.5 Immature Gran % % 0.0 Neutrophils % % 66.0 Lymphocytes % % 14.0 Atypical Lymphs % % 1 Monocytes % % 19.0 Eosinophils % % 0.0 Basophils % % 0.0 Nucleated RBC % (0.0-0.3) % 0.0 Absolute Neutrophils (1.2-6.7) 10^3/uL 7.62 H Absolute Lymphocytes (1.2-3.4) 10^3/uL 1.73 Absolute Monocytes (0.1-0.8) 10^3/uL 2.19 H Absolute Eosinophils (0.0-0.7) 10^3/uL 0.00 Absolute Basophils (0.0-0.2) 10^3/uL 0.00 RBC Morphology Normal ESR (0-30) mm/hr 63 H VBG Lactate (<or=2.0) mmol/L 0.9 Sodium (136-145) mmol/L 136 Potassium (3.5-5.1) mmol/L 4.1 Chloride (98-107) mmol/L 100 Carbon Dioxide (21.0-32.0) mmol/L 27.9 Anion Gap (3-11) mmol/L 8.1 BUN (7-18) mg/dL 13 Creatinine (0.55-1.02) mg/dL 0.6 Est GFR (CKD-EPI 2020) (mL/min/1.73m2) 103.33 Glucose (74-106) mg/dL 108 H Uric Acid Cancelled 3.9 Calcium (8.5-10.1) mg/dL 9.2 Total Bilirubin (0.2-1.0) mg/dL 0.5 AST (15-37) U/L 24 ALT (14-59) U/L 18 Alkaline Phosphatase (46-116) U/L 96 C-Reactive Protein Cancelled 8.32 H Total Protein (6.4-8.2) g/dL 7.1 Albumin (3.4-5.0) g/dL 3.0 L Procalcitonin ng/mL 1.57 Quality:SDOR Health Related Social Needs: Health related social needs housing instability, housed, with risk of homelessness (Z59.811), material hardship(utilities) (Z59.12), problems related to housing/economic circumstances (Z59.89) PFSH All Active Problems (Updated 11/30/24 @ 19:30 by JOSE Kat) Undifferentiated inflammatory arthritis (Acute) Scoliosis (Acute) Hernia of abdominal cavity (Acute) Decreased appetite (Acute) Refractory migraine with aura (Acute) Posttraumatic stress disorder (Acute) Nausea (Acute) Asthma (Chronic) Tremor (Acute) Influenza A (Acute) Pneumonia (Acute) Generalized hyperhidrosis (Acute) Exposure to viral hepatitis (Acute) (Suspected) Functional tremor (Acute) Vertigo (Acute) Weakness (Acute) Fibromyalgia (Acute) High risk medication use (Acute) History of tobacco abuse (Acute) High blood sugar (Acute) Pulmonary nodule (Acute) Nicotine dependence, cigarettes, uncomplicated (Acute) Mass of upper lobe of right lung (Acute) Lesion of ulnar nerve (Acute) Ovarian cyst (Acute) Fatigue (Acute) Depression (Chronic) Medical History (Updated 11/30/24 @ 19:30 by Omi R Mejia, PA) Advance care planning Palliative care encounter Sepsis Constipation Anxiety COPD (chronic obstructive pulmonary disease) Metastatic primary lung cancer Chronic back pain Cervical dysplasia Surgical History (Updated 11/25/24 @ 11:30 by Macey Walker) H/O endoscopy Hx of colonoscopy H/O LEEP Family History Mother Cancer family history of CA Mother bladder questioning ovarian ca Uncle brain CA Grand father CA unknown origin. 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
[2024-11-30] MEDS: predniSONE 10 MG TAB 5 MG PO (19:47)
[2024-11-30] MEDS: oxyCODONE 5 MG TAB 20 MG PO (19:48)
--- NOTE | 2024-11-30 20:54 | DI.VRAD_ITS ---
PROCEDURE INFORMATION: Exam: XR Right Knee Exam date and time: 11/30/2024 6:38 PM Age: 58 years old Clinical indication: Right; R knee joint pain/swelling TECHNIQUE: Imaging protocol: Radiologic exam of the right knee. Views: 3 views. COMPARISON: US LOWER EXTREMITY VENOUS RT 10/25/2024 12:21 PM FINDINGS: Bones/joints: Normal. Soft tissues: Normal. IMPRESSION: No acute abnormality evident. Dictated and Authenticated by: Sheila Betancourt MD. Orderin Jackie Braga MD
--- NOTE | 2024-11-30 20:55 | DI.VRAD_ITS ---
PROCEDURE INFORMATION: Exam: XR Left Knee Exam date and time: 11/30/2024 6:37 PM Age: 58 years old Clinical indication: Screening exam; Comparison with R knee; Comparison for inflammatory arthritis TECHNIQUE: Imaging protocol: Radiologic exam of the left knee. Views: 3 views. COMPARISON: PT PET CT EYE TO THIGH 02/08/2023 3:19 PM FINDINGS: Bones/joints: Normal. Soft tissues: Normal. IMPRESSION: No evidence for acute abnormality. Dictated and Authenticated by: Sheila Betancourt MD. Orderin Jackie Braga MD
[2024-12-01 15:59] LABS: Rheumatoid Factor <8.6 IU/mL (<12.0)
[2024-12-02 12:22] LABS: Lyme Ab w Rflx to Lyme Confirm Negative (Negative)
--- NOTE | 2024-12-02 12:25 | NUR.NOTE ---
Access chart to get information for a referral. Nursing Note:
[2024-12-04 01:07] LABS: Anaplasma phagocytophilum Negative (Negative); B. miyamotoi PCR Negative (Negative); Babesia divergens/MO-1 Negative (Negative); Babesia duncani Negative (Negative); Babesia microti Negative (Negative); Ehrlichia chaffeensis Negative (Negative); Ehrlichia ewingii/canis Negative (Negative); Ehrlichia muris eauclairensis Negative (Negative)
--- NOTE | 2024-12-04 22:56 | NUR.NOTE ---
Chart accessed to help with [facility] [place].Nursing Note:
== END 2024-11-30 19:54 | disposition home or self-care (01) ==
PROVIDERS: Emergency Provider Physician Assistant; PCP Internal Medicine Medical Oncology
DX: C34.91 Malignant neoplasm of unspecified part of right bronchus or lung (principal); M15.9 Polyosteoarthritis, unspecified; M25.561 Pain in right knee; M25.562 Pain in left knee; M25.511 Pain in right shoulder; M25.512 Pain in left shoulder; M25.531 Pain in right wrist; M25.532 Pain in left wrist
CPT/HCPCS: 99284 ×2; 36415; 73562; 80053; 84145; 85652; 87798; 83605; 84550; 85025; 86140; 86431; 86618; J7512

== ENCOUNTER 2024-12-23 18:55 | Emergency (ER) | payer MEDICAID, SELFPAY ==
--- NOTE | 2024-12-23 19:15 | RT.EKG_ITS ---
APPROVED REPORT Exam: Resting ECG Reason for Exam: chest pain Patient Location: E HR:103 bpm ECG Measurements Heart Rate 103 AXIS WV 165 P 80 QRSd 92 QRS 85 QT 352 T 74 QTc 462 Conclusion Sinus tachycardia...rate> 99 No Occlusion NC
--- NOTE | 2024-12-23 19:16 | W.ED.GENAD ---
Discharge Plan Disposition Patient Disposition: Home Discharge Details Clinical Impression: COPD with acute exacerbation, Mass of upper lobe of right lung Primary Care Provider: Analy Tai ED Provider: Andres Vu [place] Meds and New Rx's Prescriptions: New doxycycline hyclate 100 mg capsule 100 mg PO BID Qty: 5 0RF prednisone 20 mg tablet 40 mg PO DAILY 4 Days Qty: 8 0RF Continued guaifenesin [Mucinex] 600 mg tablet extended release 12hr 600 mg PO Q12H PRN ibuprofen 200 mg tablet See Rx Instructions PO Q6H PRN Rx Instructions: 400 - 800 mg orally every 6 hours PRN; budesonide-formoterol [Symbicort] 160-4.5 mcg/actuation HFA aerosol inhaler 1 puff inhalation 6XD PRN (Reason: wheezing) Qty: 10.2 12RF naproxen sodium [Aleve] 220 mg tablet 440 mg PO Q12H PRN Combivent Respimat 20-100 mcg/actuation mist 1 puff inhalation Q6H Probiotic with Prebiotic 1 billion-250 cell-mg capsule 1 cap PO DAILY Adult 50 Plus Probiotic 4 billion cell capsule 4,000 mmu cells PO DAILY Rx Instructions: administer with a meal cholecalciferol (vitamin D3) 25 mcg (1,000 unit) capsule 125 mcg PO DAILY lorazepam 0.5 mg tablet 0.5 mg PO DAILY PRN (Reason: anxiety) Qty: 10 0RF Rx Instructions: Take 1/2 tablet to 1 tablet 15 minutes prior to infusion as needed albuterol sulfate [Ventolin HFA] 90 mcg/actuation HFA aerosol inhaler See Rx Instructions .ROUTE .COMPLEX Qty: 18 10RF Dose Instruction: INHALE TWO PUFFS BY MOUTH EVERY 4 TO 6 HOURS NEEDED FOR FOR SHORTNESS OF BREATH OR WHEEZE Rx Instructions: INHALE TWO PUFFS BY MOUTH EVERY 4 TO 6 HOURS NEEDED FOR FOR SHORTNESS OF BREATH OR WHEEZE albuterol sulfate 2.5 mg /3 mL (0.083 %) solution for nebulization 2.5 mg inhalation Q4H PRN (Reason: shortness of breath or wheezing) Qty: 540 5RF ondansetron 4 mg tablet,disintegrating 4 mg PO Q8H PRN pregabalin 25 mg capsule 25 mg PO QHS Qty: 30 5RF ipratropium bromide 0.02 % solution 2.5 ml inhalation Q6H PRNQty: 62.5 0RF Rx Instructions: This can be combined with your albuterol nebulizer solution folic acid 1 mg tablet 1 mg PO DAILY Patient Comments: TAKE ONE TABLET BY MOUTH EVERY DAY Bronkaid Max 25 mg tablet 25 mg PO Q4H prochlorperazine maleate [Compazine] 5 mg tablet 5 mg PO TID PRNQty: 15 0RF clotrimazole 10 mg john 10 mg mucous membrane TID PRN Discharge Instructions Additional Instructions: You were seen in the emergency department for your chest pain. Your blood work showed no sign of heart attack. You are receiving treatment for COPD exacerbation and antibiotic. Please return to the emergency department if you develop worsening shortness of breath take a follows 1230 nausea or vomiting. Otherwise please follow-up with your primary care provider. Discharge Data Discharge Date/Time-TO BE ENTERED AT DEPARTURE: 12/23/24 23:42 HPI General Date/Time Provider Initiated Documentation: 12/23/24 19:16. HPI Narrative: MDM This is a mildly tachycardic with history of stage IV lung cancer and COPD chemotherapy 2 months ago with left-sided chest ache and cough concern for possibility of pneumonia for which patient undergo XR. PE considered but in the absence of calf pain and swelling and without hypoxia nor hypotension so I did not send a D-dimer. I covered for sepsis using broad-spectrum antibiotic given tachycardia. No tearing quality to suggest aortic dissection. No pain out of proportion to suggest necrotizing soft tissue infection. No trauma and equal breath sounds making my suspicion low for pneumothorax. No vomiting increased risk for esophageal rupture. No rash to chest to suggest zoster. Patient is not hypotensive nor a dialysis patient making my suspicion low for tamponade. Soft nontender abdomen make my suspicion low for pancreatitis. Will plan on monitoring in the ED and reassess. Patient does have mildly prolonged expiratory phase increasing my suspicion COPD exacerbation. No significant wheezes to suggest benefit from nebulizer. 9:23 PM Patient's chest x-ray shows bilateral increased interval size of her known right lung mass. This may be the source of her chest pain. She had two reassuring tropnins. He chem7 lacked any electrolyte abnormalities. She had no DARIEN. Her venous gas lacked acidemia and hypercarbia. She had no leukocytosis nor leukoopenia. She was not anemic. She had not hemoptysis in the emergency department. She remained without fever. She had no respiratory distress. No stridor. Will ambulate patient in the ED. 12/24 Late charting due to patient care. Patient passed an ambulatory trial in the ED. Her tachycardia resolved. Will discharge w/5 days of doxycline and prednisone for COPD exacerbation. We discussed that if he developed shortness of breath recurrent chest pain or any other concerns that she should return to the emergency department. She passed her ambulatory trial without hypoxia nor tachycardia. She requested discharge. She understood her return indications that discharged with. Follow-up expectant outpatient management. HEART SCORE Chest pain Diagnostic Protocol: [-History/Physical/Gestalt: Slightly Suspicious (0)] [- EKG: Nonspecific repolarization (+1)] [- AGE: 45-65 (+1)] [- RISK FACTORS: 1 - 2 risk factors (+1)] ] [-TROPONIN: <= normal limit (0)] - TOTAL SCORE: 3 - Risk Factors: DM, current or recent smoker, HTN, HLD, family hx of CAD, obesity - INTERPRETATION: With a total score of 3 or less, risk of major cardiac event within six weeks 1.7%, likely lower with two negative troponins. [I explained to the patient that the risk of subsequent major cardiac event within 1 month is not 0, however risk predicted to be less than 2%. Patient verbalized understanding, accepts this risk and shared and the decision for discharge with PCP follow-up for further evaluation and management. They understand to return to the ED immediately with any worsening symptoms, new symptoms or other concerns.] [Diagnostic interpretations performed by me: Per my independent interpretation chest x-ray shows: Right-sided upper lobe mass versus artifact Per my independent interpretation EKG shows: Sinus tachycardia rate 103. Normal axis. No ST segment abnormalities. T wave inversions aVL. Laboratory Tests Range/Units 12/23/24 12/23/24 12/23/24 19:34 19:43 21:50 WBC (4.4-10.8) 10^3/uL 7.27 RBC (3.93-5.22) 10^6/uL 3.95 Hgb (11.2-15.7) g/dL 12.3 Hct (36.0-46.0) % 38.0 MCV (80-95) fL 96 H MCH (27.0-33.0) pg 31.1 MCHC (32.0-36.0) % 32.4 RDW (11.7-14.6) % 14.4 Plt Count (130-400) 10^3/uL 434 H MPV (8.0-11.0) fL 8.6 Immature Gran % % 0.3 Neutrophils % % 52.5 Lymphocytes % % 31.1 Monocytes % % 13.1 Eosinophils % % 2.2 Basophils % % 0.8 Nucleated RBC % (0.0-0.3) % 0.0 Absolute Neutrophils (1.2-6.7) 10^3/uL 3.82 Absolute Lymphocytes (1.2-3.4) 10^3/uL 2.26 Absolute Monocytes (0.1-0.8) 10^3/uL 0.95 H Absolute Eosinophils (0.0-0.7) 10^3/uL 0.16 Absolute Basophils (0.0-0.2) 10^3/uL 0.06 VBG pH (7.31-7.41) VBG pCO2 (41-51) mmHg VBG pO2 mmHg VBG HCO3 (23-28) mmol/L VBG Total CO2 (24-29) mmol/L VBG O2 Saturation % VBG Base Excess (-2-3) mmol/L VBG Lactate (<or=2.0) mmol/L Sodium (136-145) mmol/L 138 Potassium (3.5-5.1) mmol/L 3.8 Chloride (98-107) mmol/L 102 Carbon Dioxide (21.0-32.0) mmol/L 31.1 Anion Gap (3-11) mmol/L 4.9 BUN (7-18) mg/dL 14 Creatinine (0.55-1.02) mg/dL 0.6 Est GFR (CKD-EPI 2020) (mL/min/1.73m2) 102.69 Glucose (74-106) mg/dL 118 H Calcium (8.5-10.1) mg/dL 8.8 Troponin I (<or=51) ng/L 9 10 COVID-19 Source Cancelled SARS-CoV-2 (PCR) Cancelled Influenza Type A (PCR) Cancelled Influenza Type B (PCR) Cancelled RSV (PCR) Cancelled Range/Units 12/23/24 12/23/24 22:30 22:43 WBC (4.4-10.8) 10^3/uL RBC (3.93-5.22) 10^6/uL Hgb (11.2-15.7) g/dL Hct (36.0-46.0) % MCV (80-95) fL MCH (27.0-33.0) pg MCHC (32.0-36.0) % RDW (11.7-14.6) % Plt Count (130-400) 10^3/uL MPV (8.0-11.0) fL Immature Gran % % Neutrophils % % Lymphocytes % % Monocytes % % Eosinophils % % Basophils % % Nucleated RBC % (0.0-0.3) % Absolute Neutrophils (1.2-6.7) 10^3/uL Absolute Lymphocytes (1.2-3.4) 10^3/uL Absolute Monocytes (0.1-0.8) 10^3/uL Absolute Eosinophils (0.0-0.7) 10^3/uL Absolute Basophils (0.0-0.2) 10^3/uL VBG pH (7.31-7.41) 7.39 VBG pCO2 (41-51) mmHg 46 VBG pO2 mmHg 42 VBG HCO3 (23-28) mmol/L 28 VBG Total CO2 (24-29) mmol/L 26 VBG O2 Saturation % 77 VBG Base Excess (-2-3) mmol/L 3 VBG Lactate (<or=2.0) mmol/L 0.6 Sodium (136-145) mmol/L Potassium (3.5-5.1) mmol/L Chloride (98-107) mmol/L Carbon Dioxide (21.0-32.0) mmol/L Anion Gap (3-11) mmol/L BUN (7-18) mg/dL Creatinine (0.55-1.02) mg/dL Est GFR (CKD-EPI 2020) (mL/min/1.73m2) Glucose (74-106) mg/dL Calcium (8.5-10.1) mg/dL Troponin I (<or=51) ng/L Cancelled COVID-19 Source SARS-CoV-2 (PCR) Influenza Type A (PCR) Influenza Type B (PCR) RSV (PCR) HPI The patient presents for evaluation of a cough. She was previously hospitalized for 2.5 to 3 days in November due to double pneumonia, which was successfully treated. A follow-up x-ray conducted by her primary care physician revealed residual signs of the condition, prompting an additional 5-day course of antibiotics. She reports the onset of a new cough last week, accompanied by chest pain, which she attributes to the cough. She does not experience any fevers or shortness of breath. Her physical activity has been limited due to neuropathy. She also mentions a pulled muscle in her back from coughing during a previous episode of pneumonitis, which she believes may be autoimmune-related. Despite undergoing physical therapy, she has not found relief from her back pain. 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 Her last chemotherapy session was in October, and she suspects that carboplatin may be the cause of her current symptoms. She has had to reschedule her upper and lower GI procedures twice due to breathing difficulties. She also reports frequent constipation. She denies calf pain. Patient with a history of tobacco use but no history of hypertension hyperlipidemia no diabetes. Exam General: Well-appearing in no acute distress speaking in complete sentences. Head: Normocephalic, atraumatic. Eye: Extraocular eye movements intact. No conjunctival injection. No scleral icterus. Ear, nose, mouth, throat: Grossly normal inspection. Normal voice, handling secretions normally. Neck: Trachea midline. Cardiovascular: Well-perfused distal extremities. Rapid regular rate Respiratory: Nonlabored respiration. Mildly prolonged and expiratory phase. No stridor. Gastrointestinal: Nondistended abdomen. Soft nontender. Musculoskeletal: No significant lower extremity edema edema. Moving all 4 extremities spontaneously. No calf swelling nor tenderness bilaterally. Skin: Normal for age and race, grossly normal temperature and turgor. No acute rash. Neurologic: Alert and appropriate, no apparent acute deficits. Psychiatric: Mood and manner are appropriate. Grooming and personal hygiene are appropriate. Related Data Home Medications ?Medication ?Instructions ?Recorded ?Confirmed cholecalciferol (vitamin D3) 25 125 mcg PO DAILY 01/05/22 12/23/24 mcg (1,000 unit) capsule guaifenesin 600 mg tablet, 600 mg PO Q12H PRN 08/22/23 12/23/24 extended release 12 hr (Mucinex) naproxen sodium 220 mg tablet 440 mg PO Q12H PRN 09/28/23 12/23/24 (Aleve) lorazepam 0.5 mg tablet 0.5 mg PO DAILY PRN anxiety #10 11/15/23 12/23/24 tabs albuterol sulfate 90 mcg/actuation See Rx Instructions .Route 12/12/23 12/23/24 aerosol inhaler (Ventolin HFA) .COMPLEX #18 grams albuterol sulfate 2.5 mg/3 mL 2.5 mg (3 mL) inhalation Q4H PRN 12/22/23 12/23/24 (0.083 %) solution for nebulization shortness of breath or wheezing #540 mL ondansetron 4 mg disintegrating 4 mg PO Q8H PRN 04/24/24 12/23/24 tablet Bacillus coagulans-inulin 1 1 cap PO DAILY 05/23/24 12/23/24 billion cell-250 mg capsule (Probiotic with Prebiotic) ipratropium 20 mcg-albuterol 100 1 puff inhalation Q6H 05/23/24 12/23/24 mcg/actuation mist for inhalation (Combivent Respimat) lactobacillus combination no.9 4 4,000 mmu cells PO DAILY 05/23/24 12/23/24 billion cell capsule (Adult 50 Plus Probiotic) ipratropium bromide 0.02 % 2.5 ml inhalation Q6H PRN #62.5 mL 07/14/24 12/23/24 solution for inhalation folic acid 1 mg tablet 1 mg PO DAILY 07/21/24 12/23/24 ibuprofen 200 mg tablet See Rx Instructions PO Q6H PRN 10/24/24 12/23/24 ephedrine sulfate 25 mg tablet 25 mg PO Q4H 11/05/24 12/23/24 (Bronkaid Max) prochlorperazine maleate 5 mg 5 mg PO TID PRN #15 tabs 11/07/24 12/23/24 tablet (Compazine) budesonide-formoterol HFA 160 1 puff inhalation 6XD PRN wheezing 11/27/24 12/23/24 mcg-4.5 mcg/actuation aerosol #10.2 grams inhaler (Symbicort) clotrimazole 10 mg john 10 mg mucous membrane TID PRN 11/30/24 12/23/24 pregabalin 25 mg capsule 25 mg PO QHS #30 caps 12/03/24 12/23/24 doxycycline hyclate 100 mg capsule 100 mg PO BID #5 caps 12/23/24 prednisone 20 mg tablet 40 mg (2 x 20 mg) PO DAILY 4 days 12/23/24 #8 tabs Previous Rx's ?Medication ?Instructions ?Recorded lorazepam 0.5 mg tablet 0.5 mg PO DAILY PRN anxiety #10 11/15/23 tabs albuterol sulfate 90 mcg/actuation See Rx Instructions .Route 12/12/23 aerosol inhaler (Ventolin HFA) .COMPLEX #18 grams albuterol sulfate 2.5 mg/3 mL 2.5 mg (3 mL) inhalation Q4H PRN 12/22/23 (0.083 %) solution for nebulization shortness of breath or wheezing #540 mL ipratropium bromide 0.02 % 2.5 ml inhalation Q6H PRN #62.5 mL 07/14/24 solution for inhalation prochlorperazine maleate 5 mg 5 mg PO TID PRN #15 tabs 11/07/24 tablet (Compazine) budesonide-formoterol HFA 160 1 puff inhalation 6XD PRN wheezing 11/27/24 mcg-4.5 mcg/actuation aerosol #10.2 grams inhaler (Symbicort) pregabalin 25 mg capsule 25 mg PO QHS #30 caps 12/03/24 doxycycline hyclate 100 mg capsule 100 mg PO BID #5 caps 12/23/24 prednisone 20 mg tablet 40 mg (2 x 20 mg) PO DAILY 4 days 12/23/24 #8 tabs Allergies Allergy/AdvReac Type Severity Reaction Status Date / Time pseudoephedrine (From AdvReac Unknown Other (See Verified 12/23/24 19:30 Sudafed) Comment) narcotics AdvReac Unknown gi upset Uncoded 12/23/24 19:30 General WES: 3 Medical Decision Making Quality:SDOH Health Related Social Needs: Health related social needs housing instability, housed, with risk of homelessness (Z59.811), material hardship(utilities) (Z59.12), problems related to housing/economic circumstances (Z59.89) PFSH All Active Problems (Updated 12/23/24 @ 23:04 by Andres Vu MD) Mass of upper lobe of right lung (Acute) COPD with acute exacerbation (Acute) Undifferentiated inflammatory arthritis (Acute) Scoliosis (Acute) Hernia of abdominal cavity (Acute) Decreased appetite (Acute) Refractory migraine with aura (Acute) Posttraumatic stress disorder (Acute) Nausea (Acute) Asthma (Chronic) Tremor (Acute) Influenza A (Acute) Generalized hyperhidrosis (Acute) Exposure to viral hepatitis (Acute) (Suspected) Functional tremor (Acute) Vertigo (Acute) Weakness (Acute) Fibromyalgia (Acute) High risk medication use (Acute) History of tobacco abuse (Acute) High blood sugar (Acute) Pulmonary nodule (Acute) Nicotine dependence, cigarettes, uncomplicated (Acute) Mass of upper lobe of right lung (Acute) Lesion of ulnar nerve (Acute) Ovarian cyst (Acute) Fatigue (Acute) Depression (Chronic) Medical History (Updated 12/23/24 @ 23:04 by Adnres Vu MD) Pneumonia Advance care planning Palliative care encounter Sepsis Constipation Anxiety COPD (chronic obstructive pulmonary disease) Metastatic primary lung cancer Chronic back pain Cervical dysplasia Surgical History (Updated 11/25/24 @ 11:30 by Macey Walker) H/O endoscopy Hx of colonoscopy H/O LEEP Family History Mother Cancer family history of CA Mother bladder questioning ovarian ca Uncle brain CA Grand father CA unknown origin. 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
[2024-12-23 19:22] VITALS: BP 107/69; PULSE 100; RESP 15; TEMP 36.7; O2SAT 94
[2024-12-23 19:37] VITALS: RESP 16
[2024-12-23 20:07] LABS: Abs Immature Grans 0.02 10^3/uL (0.0-0.06); Absolute Basophil Count 0.06 10^3/uL (0.0-0.2); Absolute Eosinophil Count 0.16 10^3/uL (0.0-0.7); Absolute Lymphocyte Count 2.26 10^3/uL (1.2-3.4); Absolute Monocyte Count 0.95 10^3/uL (0.1-0.8); Absolute Neutrophil Count 3.82 10^3/uL (1.2-6.7); Basophils % 0.8 %; Eosinophils % 2.2 %; HGB 12.3 g/dL (11.2-15.7); Immature Grans % 0.3 %; Lymphocytes % 31.1 %; MCH 31.1 pg (27.0-33.0); MCHC 32.4 % (32.0-36.0); MCV 96 fL (80-95); MPV 8.6 fL (8.0-11.0); Monocytes % 13.1 %; Neutrophils % 52.5 %; Platelet Count 434 10^3/uL (130-400); RBC 3.95 10^6/uL (3.93-5.22); RDW 14.4 % (11.7-14.6); RDW-SD 51.2 fL; WBC 7.27 10^3/uL (4.4-10.8)
--- NOTE | 2024-12-23 20:16 | DI.RAD_ITS ---
Exam(s) XR CHEST 2V PA LATERAL EXAM: XR CHEST 2V PA LATERAL CLINICAL HISTORY: Chest pain. TECHNIQUE: 2D digital imaging was performed. COMPARISON: CR XR CHEST 2V PA LATERAL from 11/04/2024 FINDINGS: 2 views: Heart size normal. Left lung remains clear. Previously described right suprahilar infiltrate and right upper lobe volume loss is again noted, sli ghtly more prominent than previous. No pleural effusions. IMPRESSION: Mild further increase in size in the right upper lobe infiltrate. Suspect neoplasm. There are no pl eural effusions. DATA REPOSITORY: RADIATION DOSE DELIVERED:
[2024-12-23 20:36] LABS: Anion Gap 4.9 mmol/L (3-11); BUN 14 mg/dL (7-18); CO2 31.1 mmol/L (21.0-32.0); CREATININE 0.6 mg/dL (0.55-1.02); Calcium 8.8 mg/dL (8.5-10.1); Chloride 102 mmol/L (98-107); Estimated GFR 102.69 (mL/min/1.73m2); Glucose 118 mg/dL (74-106); Potassium 3.8 mmol/L (3.5-5.1); Sodium 138 mmol/L (136-145); Troponin I 9 ng/L (<or=51)
[2024-12-23] MEDS: cefTRIAXone 2 GM/50 ML BAG IVPB (20:42)
[2024-12-23] MEDS: Normal Saline 500 ML 1000 ML IV (21:01)
[2024-12-23] MEDS: VANCOMYCIN 1,000 MG in Normal Saline 500 ML 333.3333 MG IVPB (21:19)
--- NOTE | 2024-12-23 21:28 | DI.VRAD_ITS ---
PROCEDURE INFORMATION: Exam: XR Chest Exam date and time: 12/23/2024 8:15 PM Age: 59 years old Clinical indication: Chest pain TECHNIQUE: Imaging protocol: Radiologic exam of the chest. Views: 2 views. COMPARISON: CT CHEST WO 11/19/2024 2:19 PM FINDINGS: Tubes, catheters and devices: Cardiac leads superimposed over the chest. Lungs: No alveolar infiltrate. Compared to a prior CT chest without contrast dated 11/19/2024, once again noted is the right upper lobe lobulated radiodensity measuring approximately 4.2 x 6.8 x 7.4 cm. Pleural spaces: No pleural fluid collection. No pneumothorax. Heart/Mediastinum: Normal heart size. Vasculature: Calcific thoracic aorta. Bones/joints: Thoracic mild levoscoliosis. IMPRESSION: 1. No acute infiltrate or pleural fluid collection. 2. Compared to a prior CT chest without contrast dated 11/19/2024, once again noted is the right upper lobe lobulated radiodensity measuring approximately 4.2 x 6.8 x 7.4 cm. Please refer to that CT report for additional information. Dictated and Authenticated by: Julio Cesar Fox MD. Orderin Mirella Campos MD
[2024-12-23 22:34] LABS: Troponin I 10 ng/L (<or=51)
[2024-12-23 22:40] LABS: BE (Venous) 3 mmol/L (-2-3); HCO3 (Venous) 28 mmol/L (23-28); Lactate 0.6 mmol/L (<or=2.0); O2 Sat (Venous) 77 %; TCO2 (Venous) 26 mmol/L (24-29); pCO2 (Venous) 46 mmHg (41-51); pH (Venous) 7.39 (7.31-7.41); pO2 (Venous) 42 mmHg
[2024-12-23 23:10] VITALS: BP 106/66; PULSE 99; RESP 16; TEMP 36.6; O2SAT 95
== END 2024-12-23 23:42 | disposition home or self-care (01) ==
PROVIDERS: Emergency Provider Emergency Medicine; PCP Nurse Practitioner Family
DX: J44.1 Chronic obstructive pulmonary disease with (acute) exacerbation; R91.8 Other nonspecific abnormal finding of lung field
CPT/HCPCS: 80048; 82805; 87040; 87637; 93005; 96374; 96375; 99285; 71046; 83605; 84484; 85025; 93010; J0696; J3370

== ENCOUNTER 2025-01-27 03:12 | Outpatient (CLI) | payer MEDICAID, SELFPAY ==
[2025-01-27 10:10] LABS: Abs Immature Grans 0.01 10^3/uL (0.0-0.06); HCT 41.1 % (36.0-46.0); HGB 13.6 g/dL (11.2-15.7); Immature Grans % 0.1 %; MCH 30.8 pg (27.0-33.0); MCHC 33.1 % (32.0-36.0); MCV 93 fL (80-95); MPV 8.1 fL (8.0-11.0); Platelet Count 450 10^3/uL (130-400); RBC 4.41 10^6/uL (3.93-5.22); RDW 14.9 % (11.7-14.6); RDW-SD 51.7 fL; WBC 8.52 10^3/uL (4.4-10.8)
[2025-01-27 10:44] LABS: ALT 22 U/L (14-59); AST 22 U/L (15-37); Albumin 3.3 g/dL (3.4-5.0); Alkaline Phosphatase 126 U/L (46-116); Anion Gap 8.3 mmol/L (3-11); BUN 16 mg/dL (7-18); Bilirubin, Total 0.2 mg/dL (0.2-1.0); CO2 28.7 mmol/L (21.0-32.0); Calcium 9.2 mg/dL (8.5-10.1); Chloride 101 mmol/L (98-107); Estimated GFR 107.31 (mL/min/1.73m2); Glucose 99 mg/dL (74-106); Magnesium 1.8 mg/dL (1.8-2.4); Potassium 4.6 mmol/L (3.5-5.1); Sodium 138 mmol/L (136-145); TSH 0.80 uIU/mL (0.36-3.74); Total Protein 7.3 g/dL (6.4-8.2)
[2025-01-27 11:00] LABS: Vitamin B12 428 pg/mL (193-986)
[2025-01-27 11:23] LABS: Hemoglobin A1C 5.9 % (<5.7)
[2025-01-27 17:22] LABS: Total Protein 6.6 g/dL (6.3-8.2)
[2025-01-28 15:00] LABS: Albumin 54.1 % (55.8-66.1); Albumin g/dL 3.6 g/dL (3.6-5.2); Alpha 1 g/dL 0.40 g/dL (0.15-0.40); Alpha 2 g/dL 0.90 g/dL (0.50-1.00); Beta g/dL 0.80 g/dL (0.60-1.20); Gamma g/dL 0.90 g/dL (0.60-1.60); Monoclonal Spike g/dL 0.4 g/dL (None Seen)
== END 2025-01-27 03:13 | disposition home or self-care (01) ==
LOC: LBO 03:12
PROVIDERS: Psychiatry & Neurology Neurology; PCP Nurse Practitioner Family; Visit Provider Nurse Practitioner Family
DX: R73.9 Hyperglycemia, unspecified (principal); G62.9 Polyneuropathy, unspecified
CPT/HCPCS: 36415; 80053; 82607; 83036; 83735; 84165; 84439; 84443; 85025; 86320

== ENCOUNTER 2025-02-17 03:20 | Outpatient (CLI) | payer MEDICAID, SELFPAY ==
[2025-02-17 11:39] LABS: Abs Immature Grans 0.06 10^3/uL (0.0-0.06); HCT 42.6 % (36.0-46.0); HGB 14.0 g/dL (11.2-15.7); Immature Grans % 0.5 %; MCH 29.5 pg (27.0-33.0); MCHC 32.9 % (32.0-36.0); MCV 90 fL (80-95); MPV 8.1 fL (8.0-11.0); Platelet Count 494 10^3/uL (130-400); RBC 4.75 10^6/uL (3.93-5.22); RDW 15.3 % (11.7-14.6); RDW-SD 50.5 fL; WBC 12.32 10^3/uL (4.4-10.8)
[2025-02-17 12:22] LABS: ALT 24 U/L (14-59); AST 21 U/L (15-37); Albumin 3.3 g/dL (3.4-5.0); Alkaline Phosphatase 161 U/L (46-116); Anion Gap 9.8 mmol/L (3-11); BUN 24 mg/dL (7-18); Bilirubin, Total 0.3 mg/dL (0.2-1.0); CO2 27.2 mmol/L (21.0-32.0); Calcium 9.1 mg/dL (8.5-10.1); Chloride 98 mmol/L (98-107); Estimated GFR 98.95 (mL/min/1.73m2); Glucose 147 mg/dL (74-106); Magnesium 1.7 mg/dL (1.8-2.4); Potassium 4.1 mmol/L (3.5-5.1); Sodium 135 mmol/L (136-145); TSH 0.78 uIU/mL (0.36-3.74); Total Protein 7.6 g/dL (6.4-8.2)
== END 2025-02-17 03:21 | disposition home or self-care (01) ==
LOC: LBO 03:20
PROVIDERS: PCP Nurse Practitioner Family; Visit Provider Nurse Practitioner Family
DX: Z79.899 Other long term (current) drug therapy (principal); C34.11 Malignant neoplasm of upper lobe, right bronchus or lung
CPT/HCPCS: 36415; 80053; 83735; 84439; 84443; 85025

== ENCOUNTER 2025-03-10 16:08 | Outpatient (REF) | payer MEDICAID, SELFPAY | END 2025-03-10 16:09 | disposition home or self-care (01) | LOC: LBN 16:08 | PROVIDERS: PCP Nurse Practitioner Family; Visit Provider Nurse Practitioner Family | DX: B37.9 Candidiasis, unspecified (principal) | CPT/HCPCS: 87102; 87206 ==

== ENCOUNTER 2025-03-10 16:20 | Outpatient (CLI) | payer MEDICAID, SELFPAY ==
--- NOTE | 2025-03-10 | DI.RAD_ITS ---
Exam(s) XR CHEST 2V PA LATERAL EXAM: XR CHEST 2V PA LATERAL CLINICAL HISTORY: J44.1 COPD w/acute exacerbation, w/asthma. TECHNIQUE: 2D digital imaging was performed. COMPARISON: CT CT CHEST WO from 11/19/2024 CR,XR XR CHEST 2V PA LATERAL from 12/23/2024 FINDINGS: 2 views: Heart size remains normal Again noted is a prominent mass in the right llmja-optjhbbwq-lyubx upper lobe region which appears radiographically unchanged from 12/23/24. No additional new nodules in either lung field and there are no pleural effusions. IMPRESSION: Stable radiographic appearance of the previously described neoplastic appearing mass in the right upper lobe/right parahilar region. DATA REPOSITORY: RADIATION DOSE DELIVERED:
== END 2025-03-10 16:40 ==
LOC: DI 16:20
PROVIDERS: PCP Nurse Practitioner Family; Visit Provider Nurse Practitioner Family
DX: J44.1 Chronic obstructive pulmonary disease with (acute) exacerbation (principal)
CPT/HCPCS: 71046

== ENCOUNTER 2025-03-10 16:20 | Outpatient (CLI) | payer MEDICAID, SELFPAY ==
[2025-03-15 00:50] LABS: ACh Receptor(Muscle)Binding Ab 0.00 nmol/L (<=0.02)
[2025-03-18 18:17] LABS: AGNA-1 Negative (Negative); ANNA-1 Negative (Negative); ANNA-2 Negative (Negative); ANNA-3 Negative (Negative); IFA Notes None.; PCA-1 Negative (Negative); PCA-2 Negative (Negative); PCA-Tr Negative (Negative)
== END 2025-03-10 16:21 | disposition home or self-care (01) ==
LOC: LBO 16:20
PROVIDERS: PCP Nurse Practitioner Family; Visit Provider Psychiatry & Neurology Neurology
DX: R52 Pain, unspecified (principal); R53.1 Weakness; C34.91 Malignant neoplasm of unspecified part of right bronchus or lung; G70.9 Myoneural disorder, unspecified; J99 Respiratory disorders in diseases classified elsewhere
CPT/HCPCS: 36415; 83519; 86255; 86596

== ENCOUNTER 2025-03-11 03:11 | Outpatient (CLI) | payer MEDICAID, SELFPAY ==
[2025-03-11 13:07] LABS: Abs Immature Grans 0.02 10^3/uL (0.0-0.06); HCT 41.6 % (36.0-46.0); HGB 13.6 g/dL (11.2-15.7); Immature Grans % 0.2 %; MCH 30.2 pg (27.0-33.0); MCHC 32.7 % (32.0-36.0); MCV 92 fL (80-95); MPV 8.3 fL (8.0-11.0); Platelet Count 436 10^3/uL (130-400); RBC 4.50 10^6/uL (3.93-5.22); RDW 16.5 % (11.7-14.6); RDW-SD 55.3 fL; WBC 8.30 10^3/uL (4.4-10.8)
[2025-03-11 13:32] LABS: ALT 30 U/L (14-59); AST 23 U/L (15-37); Albumin 3.3 g/dL (3.4-5.0); Alkaline Phosphatase 110 U/L (46-116); Anion Gap 4.4 mmol/L (3-11); BUN 15 mg/dL (7-18); Bilirubin, Total 0.3 mg/dL (0.2-1.0); CO2 33.6 mmol/L (21.0-32.0); Calcium 9.0 mg/dL (8.5-10.1); Chloride 103 mmol/L (98-107); Estimated GFR 102.69 (mL/min/1.73m2); Glucose 110 mg/dL (74-106); Magnesium 1.7 mg/dL (1.8-2.4); Potassium 3.9 mmol/L (3.5-5.1); Sodium 141 mmol/L (136-145); TSH 0.69 uIU/mL (0.36-3.74); Total Protein 7.0 g/dL (6.4-8.2)
== END 2025-03-11 03:12 | disposition home or self-care (01) ==
LOC: LBO 03:11
PROVIDERS: PCP Nurse Practitioner Family; Visit Provider Nurse Practitioner Family
DX: Z79.899 Other long term (current) drug therapy (principal); C34.11 Malignant neoplasm of upper lobe, right bronchus or lung
CPT/HCPCS: 36415; 80053; 83735; 84439; 84443; 85025

== ENCOUNTER 2025-03-28 03:47 | Outpatient (CLI) | payer MEDICAID, SELFPAY ==
[2025-03-28] MEDS: Gadoterate meglumine 20 ML SYRINGE IVP (12:55)
[2025-03-28] MEDS: Normal Saline Flush 10 ML SYR IVP (12:56)
--- NOTE | 2025-03-28 13:30 | DI.MRI_ITS ---
Exam(s) MR BRAIN WO/W EXAM: MR BRAIN WO/W CLINICAL HISTORY: RT UPPER LOBE LUNG CA C34.11 SECONDARY TO BONE C79.51 STAGE IV HAVING. TECHNIQUE: Multiplanar multisequence MRI of the brain was performed. CONTRAST MATERIAL: IV Contrast: 9 ML of Dotarem contrast administered. COMPARISON: MR MR BRAIN WO/W from 10/31/2023 CR XR CHEST 2V PA LATERAL from 07/14/2024 CR XR CHEST 2V PA LATERAL from 03/10/2025 FINDINGS: VENTRICLES AND EXTRA AXIAL SPACES: Normal in size and morphology for the patient's age. HEMORRHAGE: None. CEREBRAL PARENCHYMA: No focus of restricted diffusion to suggest acute infarct. No space-occupying lesion identified. There are stable small scattered foci of high signal in the white matter consistent with microvascular changes. BRAINSTEM/CEREBELLUM: Normal. CALVARIUM: Normal. ENHANCEMENT: No suspicious enhancement identified. VISUALIZED PARANASAL SINUSES/MASTOIDS: Clear. Orbits: Unremarkable. Pituitary: Not enlarged. Vasculature: Normal flow voids. IMPRESSION: No evidence of metastatic disease. Stable mild white matter changes. DATA REPOSITORY:
== END 2025-03-28 04:07 ==
PROVIDERS: PCP Nurse Practitioner Family; Visit Provider Nurse Practitioner Family
DX: C34.11 Malignant neoplasm of upper lobe, right bronchus or lung (principal); C79.51 Secondary malignant neoplasm of bone
CPT/HCPCS: 70553

== ENCOUNTER 2025-04-14 12:43 | Outpatient (CLI) | payer MEDICAID, SELFPAY ==
[2025-04-14 12:51] VITALS: BP 99/76; PULSE 68; RESP 20; TEMP 37; O2SAT 91
--- NOTE | 2025-04-14 13:19 | PDOC.PAIN ---
Date of service: 04/14/25 Time of Service: 13:34 Pain Managment Procedure Note Procedure Note Procedure Note: Ultrasound guidedTrigger Point Injection ? Location: Right trapezius latissamus dorsi and rhomboid ? Pre-procedure Diagnosis:? M79.10- Myalgia, unspecified site ? Post-procedure Diagnosis:? The same as above ? Sedation: none? Estimated blood loss: zero ? Surgeon:? Jay Hansen MD ? Procedure Detail:?? The procedure and potential risks were explained to the patient and informed written consent was obtained. Time out was performed in procedure room with nursing staff confirming the patient's identity, procedure to be performed, allergies, and any blood thinning or anti-platelet medications. Sterile gloves were used, a face mask was worn, and new single dose vials of all medications were used with the top being swabbed with alcohol and given time to dry prior to withdrawal of medication.? Trigger points were palpated and confirmed to reproduce the patient?s pain symptoms.? Pre-injection ultrasound scanning of the area of interest was performed using Linear transducer, identifying relevant anatomy, landmarks, and neurovascular structures allowing for optimal needle path. The site was then prepared in the usual sterile fashion, using thorough Chlorhexadine preparation of the skin and sterile draping. The same ultrasound transducer was then passed into the sterile field using sterile probe cover and sterile ultrasound gel. Using high-frequency ultrasound probe with sterile cover target was identified.? ? A 25-gauge 1.5 inch needle was advanced to the target.? following negative aspiration a total of 4 cc of 0.5% bupivacaine was injected.? ? The patient tolerated the procedure well. Patient discharged home in stable condition. PAIN: PRE-PROCEDURE 04/25 POST-PROCEDURE 01/23 Plan:? Follow up prn. Coding Conscious Sedation used for procedure: No CPT Codes: TPI Single/Multi >3 Muscles - 68113 ([id number] ~G) Ultrasound - 14723 ([id number] ~G) Additional Codes: Date of Service (35799) Date of service: 04/14/25 Diagnoses: M79.10- Myalgia, unspecified site
[2025-04-14 13:26] VITALS: PULSE 122; O2SAT 93
[2025-04-14 13:31] VITALS: PULSE 54; O2SAT 97
[2025-04-14] MEDS: Bupivacaine 0.5% Pres-Free 10 ML VIAL IJ (13:41)
[2025-04-14] MEDS: Nerve Block Tray 1 EACH MC (13:41)
== END 2025-04-14 12:44 | disposition home or self-care (01) ==
LOC: PC 12:43
PROVIDERS: PCP Nurse Practitioner Family; Visit Provider Anesthesiology Pain Medicine
DX: M79.18 Myalgia, other site (principal)
CPT/HCPCS: 20553; J0665

== ENCOUNTER 2025-04-28 17:08 | Emergency (ER) | payer MEDICAID, SELFPAY ==
[2025-04-28] VITALS (44 sets, daily range): BP systolic 106–136; BP diastolic 59–83; PULSE 92–113; RESP 15–39; TEMP 36.6; O2SAT 92–96
--- NOTE | 2025-04-28 17:00 | RT.EKG_ITS ---
APPROVED REPORT Exam: Resting ECG Reason for Exam: Chest Pain Patient Location: E HR:102 bpm ECG Measurements Heart Rate 102 AXIS [place] 191 P 82 QRSd 104 QRS 86 QT 360 T 66 QTc 469 Conclusion Sinus tachycardia...rate> [address] segment or T wave abnormalities to suggest occlusive VT
--- NOTE | 2025-04-28 17:30 | DI.CT_ITS ---
Exam(s) CT CHEST PE CTA EXAM: CT CHEST PE CTA CLINICAL HISTORY: Chest pain concern for PE. TECHNIQUE: Imaging Protocol: Axial CT angiography was performed with multi- slice acquisition and multi-planar and/or 3D reconstructions. Lung Computer Aided Detection (CAD) was utilized. CONTRAST MATERIAL: Intravenous: Omnipaque 350 contrast volume:60 mL COMPARISON: CT CT CHEST WO from 11/19/2024 CR XR CHEST 2V PA LATERAL from 03/10/2025 FINDINGS: Tracheobronchial tree: There has been interval significant increase in size of the right perihilar mass which now measures 9.4 AP by 5.6 transverse by 11 cm craniocaudad. There is obstruction of the airways to the right upper lobe. There is also been significant narrowing of the airways to the right middle and right lower lobe. There is postobstructive atelectasis seen in the right lung apex. No bronchiectasis. Pulmonary parenchyma: Emphysematous changes are seen in the lungs. There are no infiltrates or nodules seen in the left lung. No architectural distortion. Pulmonary Arteries: No evidence of filling defect to suggest pulmonary emboli. There is compression of pulmonary artery branches to the right upper lobe secondary to the large mass. Mediastinum and Evette: No dominant adenopathy or fluid collection. The esophagus is unremarkable. Visualized thyroid gland: Unremarkable. Pleura: No effusion or pneumothorax. There are bulla again seen in the right lung apex. Heart: The heart is not dilated. Coronary artery calcifications are present. No pericardial effusion. Aorta: Thoracic aorta non-dilated. No evidence of dissection. Atherosclerotic calcification is present. Upper abdomen: Unremarkable. Soft tissues: Unremarkable. Bones: Within normal limits for the patient's age. IMPRESSION: 1. No evidence of pulmonary embolism, thoracic aortic dissection or aneurysm. 2. Interval increase in size of the right perihilar mass with obstruction of right upper lobe airways and vasculature. Postobstructive atelectasis is seen in the right lung apex. 3. Emphysematous changes in the lungs. RADIATION DOSE DELIVERED: 54.58mGy.cm Total DLP DATA REPOSITORY: All CT scans at this facility are submitted to the National Radiology Data Registry (NRDR) Dose Index Registry (DIR) with the [employer] (A[employer]). RADIATION OPTIMIZATION: All CT scans at this facility use at least one of these dose optimization techniques: automated exposure control; mA and/or kV adjustment per patient size (includes targeted exams where dose is matched to clinical indication); or iterative reconstruction.
[2025-04-28] MEDS: Acetaminophen 500 MG TAB 1000 MG PO (18:01)
[2025-04-28 18:03] LABS: Abs Immature Grans 0.03 10^3/uL (0.0-0.06); HCT 34.1 % (36.0-46.0); HGB 11.2 g/dL (11.2-15.7); Immature Grans % 0.3 %; MCH 29.1 pg (27.0-33.0); MCHC 32.8 % (32.0-36.0); MCV 89 fL (80-95); MPV 8.1 fL (8.0-11.0); Platelet Count 513 10^3/uL (130-400); RBC 3.85 10^6/uL (3.93-5.22); RDW 14.4 % (11.7-14.6); RDW-SD 46.4 fL; WBC 10.22 10^3/uL (4.4-10.8)
[2025-04-28] MEDS: MORPHine 10 MG/ML VIAL 2 MG IVP (18:12)
[2025-04-28 18:25] LABS: ALT 14 U/L (14-59); AST 18 U/L (15-37); Albumin 2.9 g/dL (3.4-5.0); Alkaline Phosphatase 117 U/L (46-116); Anion Gap 10.4 mmol/L (3-11); BUN 18 mg/dL (7-18); Bilirubin, Total 0.2 mg/dL (0.2-1.0); CO2 28.6 mmol/L (21.0-32.0); Calcium 8.7 mg/dL (8.5-10.1); Chloride 99 mmol/L (98-107); Estimated GFR 102.69 (mL/min/1.73m2); Glucose 121 mg/dL (74-106); Lipase 42 U/L (<78); Magnesium 1.8 mg/dL (1.8-2.4); NT-proBNP 249 pg/mL (<300); Potassium 3.7 mmol/L (3.5-5.1); Sodium 138 mmol/L (136-145); Total Protein 6.9 g/dL (6.4-8.2); Troponin I 7 ng/L (<or=51)
[2025-04-28] MEDS: Omnipaque 350 MG/ML 100 ML BTL IJ (18:32)
--- NOTE | 2025-04-28 18:32 | W.ED.GENAD ---
Discharge Plan Disposition Patient Disposition: Home Condition: Fair Discharge Details Clinical Impression: Pain, Lung mass Primary Care Provider: Analy Tai ED Provider: Swati Nguyen Home Meds and New Rx's Prescriptions: New hydromorphone [Dilaudid] 2 mg tablet 2 mg PO Q6H PRNQty: 12 0RF Continued guaifenesin [Mucinex] 600 mg tablet extended release 12hr 600 mg PO Q12H PRN ibuprofen 200 mg tablet See Rx Instructions PO Q6H PRN Rx Instructions: 400 - 800 mg orally every 6 hours PRN; budesonide-formoterol [Symbicort] 160-4.5 mcg/actuation HFA aerosol inhaler 1 puff inhalation 6XD PRN (Reason: wheezing) Qty: 10.2 12RF Probiotic with Prebiotic 1 billion-250 cell-mg capsule 1 cap PO DAILY acetaminophen 500 mg capsule 500 mg PO Q6H PRN celecoxib [Celebrex] 200 mg capsule 200 mg PO Q12H Qty: 60 3RF Rx Instructions: Do not use with ibuprofen or alleve lidocaine 5 % adhesive patch,medicated 1 patch topical DAILY MDD 2 patches Qty: 30 12RF Rx Instructions: leave on most painful area for up to 12 hrs. Apply to painful area on chest wall, request 3x5 size. If insurance will not cover 5%, OK to change to 4% strength. diclofenac sodium 1 % gel 2 g topical QID PRN (Reason: pain) Qty: 100 12RF Rx Instructions: Apply to painful areas (do not apply to same area that is currently has lidocaine patch on it) cholecalciferol (vitamin D3) 25 mcg (1,000 unit) capsule 125 mcg PO DAILY lorazepam 0.5 mg tablet 0.5 mg PO DAILY PRN (Reason: anxiety) Qty: 10 0RF Rx Instructions: Take 1/2 tablet to 1 tablet 15 minutes prior to infusion as needed albuterol sulfate 2.5 mg /3 mL (0.083 %) solution for nebulization 2.5 mg inhalation Q4H PRN (Reason: shortness of breath or wheezing) Qty: 540 5RF ondansetron 4 mg tablet,disintegrating 4 mg PO Q8H PRN Combivent Respimat 20-100 mcg/actuation mist 1 puff inhalation Q6H Qty: 4 6RF albuterol sulfate [Ventolin HFA] 90 mcg/actuation HFA aerosol inhaler See Rx Instructions .ROUTE .COMPLEX Qty: 18 10RF Dose Instruction: INHALE TWO PUFFS BY MOUTH EVERY 4 TO 6 HOURS NEEDED FOR FOR SHORTNESS OF BREATH OR WHEEZE Rx Instructions: INHALE TWO PUFFS BY MOUTH EVERY 4 TO 6 HOURS NEEDED FOR FOR SHORTNESS OF BREATH OR WHEEZE albuterol sulfate 1.25 mg/3 mL solution for nebulization 1.25 mg inhalation 3XD fluticasone propion-salmeterol [Advair HFA] 115-21 mcg/actuation HFA aerosol inhaler 2 puff inhalation Q12H alum-mag hydroxide-simeth [Antacid-Antigas] 200-200-20 mg/5 mL suspension 10 ml PO 4XD PRN Rx Instructions: administer between meals and at bedtime levalbuterol HCl 1.25 mg/3 mL solution for nebulization 1.25 mg inhalation Q2H PRN PRN scopolamine base 1 mg over 3 days patch 3 day 1 patch transdermal Q3D PRN cyproheptadine 4 mg tablet 4 mg PO 3XD PRN omeprazole 20 mg capsule,delayed release(DR/EC) 20 mg PO PRN PRN pantoprazole 40 mg tablet,delayed release (DR/EC) 40 mg PO PRN PRN ipratropium bromide 0.02 % solution 2.5 ml inhalation Q6H PRNQty: 62.5 0RF Rx Instructions: This can be combined with your albuterol nebulizer solution folic acid 1 mg tablet 1 mg PO DAILY Patient Comments: TAKE ONE TABLET BY MOUTH EVERY DAY prochlorperazine maleate [Compazine] 5 mg tablet 5 mg PO TID PRNQty: 15 0RF clotrimazole 10 mg john 10 mg mucous membrane TID PRN Discontinued dronabinol 2.5 mg capsule 2.5 mg PO DIRECTED oxycodone 5 mg tablet 5 mg PO Q4H MDD 4 pills PRN (Reason: pain) Qty: 60 0RF naproxen sodium PO Discharge Instructions Instructions: Opioids for Short-Term Treatment of Pain ED Additional Instructions: Stop taking your oxycodone. Start taking 2mg of hydromorphone up to every 6 hours as needed for pain. Take all of your other home pain medications as you currently do. Call your oncologist in the morning to schedule an appointment to followup with them. Call your primary care doctor in the morning to schedule an appointment for within the next 72 hour to followup on your visit here. Discuss further pain control with them at that visit- you have prescribed three days worth of hydromorphone. Return to the emergency department for new or worsening symptoms including fever, difficulty breathing, new/different/worse pain, or if you have any other concerns. Discharge Data Discharge Date/Time-TO BE ENTERED AT DEPARTURE: 04/29/25 00:26 HPI General Date/Time Provider Initiated Documentation: 04/28/25 17:12. Limitations to Documentation: no limitations. Information obtained by: patient and old records reviewed. HPI Narrative: 59yo F with hx metastatic lung cancer, COPD, fibromyalgia, presenting for three weeks of right sided chest pain. Pain is sharp, radiates to her back, worse with breathing or moving. No shortness of breath or lightheadedness. Has never had pain like this before. Also has a cough which she has had for months which is unchanged from baseline. Some nausea which is also not new, vomited a few times this week (thinks 2-3) but not today or yesterday. Not currently on chemo or other antineoplastic treatment and has not been for months, is wanting to resume again soon (had stopped due to side effects). Otherwise in her usual state of health with no fevers, chills, rash, abdominal pain, dysuria, hematuria, headache, numbness, tingling, weakness, veritgo, or vision changes. Related Data Home Medications ?Medication ?Instructions ?Recorded ?Confirmed cholecalciferol (vitamin D3) 25 125 mcg PO DAILY 01/05/22 04/28/25 mcg (1,000 unit) capsule guaifenesin 600 mg tablet, 600 mg PO Q12H PRN 08/22/23 04/28/25 extended release 12 hr (Mucinex) lorazepam 0.5 mg tablet 0.5 mg PO DAILY PRN anxiety #10 11/15/23 04/28/25 tabs albuterol sulfate 2.5 mg/3 mL 2.5 mg (3 mL) inhalation Q4H PRN 12/22/23 04/28/25 (0.083 %) solution for nebulization shortness of breath or wheezing #540 mL ondansetron 4 mg disintegrating 4 mg PO Q8H PRN 04/24/24 04/28/25 tablet Bacillus coagulans-inulin 1 1 cap PO DAILY 05/23/24 04/28/25 billion cell-250 mg capsule (Probiotic with Prebiotic) ipratropium bromide 0.02 % 2.5 ml inhalation Q6H PRN #62.5 mL 07/14/24 04/28/25 solution for inhalation folic acid 1 mg tablet 1 mg PO DAILY 07/21/24 04/28/25 ibuprofen 200 mg tablet See Rx Instructions PO Q6H PRN 10/24/24 04/28/25 prochlorperazine maleate 5 mg 5 mg PO TID PRN #15 tabs 11/07/24 04/28/25 tablet (Compazine) budesonide-formoterol HFA 160 1 puff inhalation 6XD PRN wheezing 11/27/24 04/28/25 mcg-4.5 mcg/actuation aerosol #10.2 grams inhaler (Symbicort) clotrimazole 10 mg john 10 mg mucous membrane TID PRN 11/30/24 04/28/25 acetaminophen 500 mg capsule 500 mg PO Q6H PRN 12/31/24 04/28/25 ipratropium 20 mcg-albuterol 100 1 puff inhalation Q6H #4 grams 01/07/25 04/28/25 mcg/actuation mist for inhalation (Combivent Respimat) celecoxib 200 mg capsule (Celebrex) 200 mg PO Q12H Pain #60 caps 01/28/25 04/28/25 albuterol sulfate 90 mcg/actuation See Rx Instructions .Route 03/20/25 04/28/25 aerosol inhaler (Ventolin HFA) .COMPLEX #18 grams albuterol sulfate 1.25 mg/3 mL 1.25 mg inhalation 3XD 03/24/25 04/28/25 solution for nebulization aluminum-mag hydroxide-simethicone 10 ml PO 4XD PRN 03/24/25 04/28/25 200 mg-200 mg-20 mg/5 mL oral susp (Antacid-Antigas) fluticasone propionate 115 2 puff inhalation Q12H 03/24/25 04/28/25 mcg-salmeterol 21 mcg/actuation HFA inhaler (Advair HFA) levalbuterol HCl 1.25 mg/3 mL 1.25 mg inhalation Q2H PRN PRN 03/24/25 04/28/25 solution for nebulization scopolamine base 1 mg over 3 days 1 patch transdermal Q3D PRN 03/24/25 04/28/25 transdermal patch cyproheptadine 4 mg tablet 4 mg PO 3XD PRN 03/25/25 04/28/25 omeprazole 20 mg capsule,delayed 20 mg PO PRN PRN 04/22/25 04/28/25 release pantoprazole 40 mg tablet,delayed 40 mg PO PRN PRN 04/22/25 04/28/25 release diclofenac sodium 1 % topical gel 2 g topical QID PRN pain #100 grams 04/25/25 04/28/25 lidocaine 5 % topical patch 1 patch topical DAILY Cancer 04/25/25 04/28/25 related pain #30 ea hydromorphone 2 mg tablet 2 mg PO Q6H PRN #12 tabs 04/28/25 (Dilaudid) Previous Rx's ?Medication ?Instructions ?Recorded lorazepam 0.5 mg tablet 0.5 mg PO DAILY PRN anxiety #10 11/15/23 tabs albuterol sulfate 2.5 mg/3 mL 2.5 mg (3 mL) inhalation Q4H PRN 12/22/23 (0.083 %) solution for nebulization shortness of breath or wheezing #540 mL ipratropium bromide 0.02 % 2.5 ml inhalation Q6H PRN #62.5 mL 07/14/24 solution for inhalation prochlorperazine maleate 5 mg 5 mg PO TID PRN #15 tabs 11/07/24 tablet (Compazine) budesonide-formoterol HFA 160 1 puff inhalation 6XD PRN wheezing 11/27/24 mcg-4.5 mcg/actuation aerosol #10.2 grams inhaler (Symbicort) ipratropium 20 mcg-albuterol 100 1 puff inhalation Q6H #4 grams 01/07/25 mcg/actuation mist for inhalation (Combivent Respimat) celecoxib 200 mg capsule (Celebrex) 200 mg PO Q12H Pain #60 caps 01/28/25 albuterol sulfate 90 mcg/actuation See Rx Instructions .Route 03/20/25 aerosol inhaler (Ventolin HFA) .COMPLEX #18 grams diclofenac sodium 1 % topical gel 2 g topical QID PRN pain #100 grams 04/25/25 lidocaine 5 % topical patch 1 patch topical DAILY Cancer 04/25/25 related pain #30 ea hydromorphone 2 mg tablet 2 mg PO Q6H PRN #12 tabs 04/28/25 (Dilaudid) Allergies Allergy/AdvReac Type Severity Reaction Status Date / Time levofloxacin Allergy Unknown Other (See Verified 04/24/25 13:01 Comment) gabapentin Allergy sharp Verified 04/24/25 13:01 shooting pains pregabalin Allergy sharp Verified 04/24/25 13:01 shooting pain pseudoephedrine (From AdvReac Unknown Other (See Verified 04/24/25 13:01 Sudafed) Comment) narcotics AdvReac Unknown gi upset Uncoded 04/24/25 13:01 General Stated Complaint: Chest Pain WES: 3 Review of Systems Narrative: see HPI Exam Narrative Exam Narrative: General: Alert, chronically ill appearing, cachectic, in no acute distress. Head: Normocephalic, atraumatic Neck: Trachea midline, ?Neck supple. Back: No midline tenderness ENT: ?MMM.? Cardiac: ?HR 90's, regular, no murmurs appreciated Resp: No respiratory distress. Diminished right apex, otherwise CTAB. Chest: No chest wall tenderness. Abd: ?Soft, non-distended, nontender : ?No suprapubic tenderness. No CVA tenderness. Extremities: ?No deformities.? No peripheral edema. Neurologic: GCS 15. ? Moves all extremities freely against gravity Course Vital Signs Vital signs: Vital Signs Pulse 111 H 04/28/25 17:14 Respiratory Rate 18 04/28/25 17:14 Blood Pressure 136/83 04/28/25 17:14 Pulse Oximetry 93 04/28/25 17:14 Temperature 36.6 C 04/28/25 18:17 Temperature Source Tympanic 04/28/25 18:17 Pulse 111 H 04/28/25 17:14 Respiratory Rate 16 04/28/25 17:42 Respiratory Effort Normal 04/28/25 17:42 Respiratory Depth Normal 04/28/25 17:42 Respiratory Pattern Normal 04/28/25 17:42 Blood Pressure 136/83 04/28/25 17:14 Pulse Oximetry 93 04/28/25 17:14 Oxygen Delivery Method Room Air 04/28/25 17:14 Oxygen Flow Rate 0 04/28/25 17:14 Pain Level 7 04/28/25 17:42 Lab/Test Results Lab/Test Results: Laboratory Tests Range/Units 04/28/25 04/28/25 12:15 17:55 WBC (4.4-10.8) 10^3/uL 10.22 RBC (3.93-5.22) 10^6/uL 3.85 L Hgb (11.2-15.7) g/dL 11.2 Hct (36.0-46.0) % 34.1 L MCV (80-95) fL 89 MCH (27.0-33.0) pg 29.1 MCHC (32.0-36.0) % 32.8 RDW (11.7-14.6) % 14.4 Plt Count (130-400) 10^3/uL 513 H MPV (8.0-11.0) fL 8.1 Immature Gran % % 0.3 Neutrophils % % 64.2 Lymphocytes % % 19.8 Monocytes % % 12.8 Eosinophils % % 2.3 Basophils % % 0.6 Nucleated RBC % (0.0-0.3) % 0.0 Absolute Neutrophils (1.2-6.7) 10^3/uL 6.57 Absolute Lymphocytes (1.2-3.4) 10^3/uL 2.02 Absolute Monocytes (0.1-0.8) 10^3/uL 1.31 H Absolute Eosinophils (0.0-0.7) 10^3/uL 0.23 Absolute Basophils (0.0-0.2) 10^3/uL 0.06 Sodium (136-145) mmol/L 138 Potassium (3.5-5.1) mmol/L 3.7 Chloride (98-107) mmol/L 99 Carbon Dioxide (21.0-32.0) mmol/L 28.6 Anion Gap (3-11) mmol/L 10.4 BUN (7-18) mg/dL 18 Creatinine (0.55-1.02) mg/dL 0.6 Est GFR (CKD-EPI 2020) (mL/min/1.73m2) 102.69 Glucose (74-106) mg/dL 121 H Calcium (8.5-10.1) mg/dL 8.7 Magnesium (1.8-2.4) mg/dL 1.8 Total Bilirubin (0.2-1.0) mg/dL 0.2 AST (15-37) U/L 18 ALT (14-59) U/L 14 Alkaline Phosphatase (46-116) U/L 117 H Troponin I (<or=51) ng/L 7 NT-Pro-B Natriuret Pep (<300) pg/mL 249 Total Protein (6.4-8.2) g/dL 6.9 Albumin (3.4-5.0) g/dL 2.9 L Lipase (<78) U/L 42 Medical Decision Making 59yo F with hx metastatic lung cancer, COPD, fibromyalgia, presenting for three weeks of right sided chest pain. Slightly tachycardiac on arrival to 110's, vital signs otherwise reassuring. Chronically ill appearing on exam, non-toxic. Diminished breath sounds right apex, no adventitious breath sounds and no increased work of breathing. Not overtly septic. Will give tylenol and low dose IV morphine for pain while awaiting results of workup. -EKG sinus tachycardia, no ST segment or T wave abnormalities to suggest occlusive [place] [facility] reviewed as below, CBC reassuring with no leukoctyosis or anemia, CMP with no actionable abnormalities, Mg normal, lipase not suggestive of pancreatitis, BNP not suggestive of heart failure, troponin normal x 3 (would not further pursue ACS) -CT chest independently reviewed; no large saddle embolus or pneumothorax or pneumonia on my view; radiology read with increased size of perihilar mass with obstruction of airways of RUL. On reassessment she reports her pain did improve significantly with tylenol and morphine though is still present. Remains mildly tachycardiac, improved to low 90's. She states her HR is usually in this range on on [facility] record review it does appear this is often the case. No infectious symptoms, remains with no respiratory distress, appears well hydrated. Discussed with [facility] oncology Dr. Mojica; no indication for urgent intervention on CT findings, will pass on to her oncology team and have them reach out to her in the morning regarding options for treatment (?palliative radiation), does think that lung findings may be causing her pain. Discussed options with patient including potential observation stay for pain control. She would prefer to go home which is reasonable. Has not been taking her home oxycodone as she thinks she may be allergic to it, feels worsening body aches when she does take it. I am not averse to trying different opiates for her cancer related pain; will try short course of hydromorphone. She would like to go home which is not unreasonable given her workup as above; I would not admit her for her HR as she is not acutely ill appearing, has no acute infectious symptoms, not immunocomprimised, and HR does seem to be baseline for her. Discharged home to followup with PCP and oncologist. Discharge instructions and return precautions were reviewed with patient who verbalized understanding. All questions were answered and she is in full agreement with the plan. IMPRESSION: 1. No evidence of pulmonary embolism, thoracic aortic dissection or aneurysm. 2. Interval increase in size of the right perihilar mass with obstruction of right upper lobe airways and vasculature. Postobstructive atelectasis is seen in the right lung apex. 3. Emphysematous changes in the lungs. Lab Data Labs: Laboratory Tests Range/Units 04/28/25 04/28/25 04/28/25 17:55 18:05 18:55 WBC (4.4-10.8) 10^3/uL 10.22 RBC (3.93-5.22) 10^6/uL 3.85 L Hgb (11.2-15.7) g/dL 11.2 Hct (36.0-46.0) % 34.1 L MCV (80-95) fL 89 MCH (27.0-33.0) pg 29.1 MCHC (32.0-36.0) % 32.8 RDW (11.7-14.6) % 14.4 Plt Count (130-400) 10^3/uL 513 H MPV (8.0-11.0) fL 8.1 Immature Gran % % 0.3 Neutrophils % % 64.2 Lymphocytes % % 19.8 Monocytes % % 12.8 Eosinophils % % 2.3 Basophils % % 0.6 Nucleated RBC % (0.0-0.3) % 0.0 Absolute Neutrophils (1.2-6.7) 10^3/uL 6.57 Absolute Lymphocytes (1.2-3.4) 10^3/uL 2.02 Absolute Monocytes (0.1-0.8) 10^3/uL 1.31 H Absolute Eosinophils (0.0-0.7) 10^3/uL 0.23 Absolute Basophils (0.0-0.2) 10^3/uL 0.06 PT (9.1-11.1) sec 10.8 INR (0.9-1.1) 1.1 APTT (20.6-30.2) sec 34.5 H Sodium (136-145) mmol/L 138 Potassium (3.5-5.1) mmol/L 3.7 Chloride (98-107) mmol/L 99 Carbon Dioxide (21.0-32.0) mmol/L 28.6 Anion Gap (3-11) mmol/L 10.4 BUN (7-18) mg/dL 18 Creatinine (0.55-1.02) mg/dL 0.6 Est GFR (CKD-EPI 2020) (mL/min/1.73m2) 102.69 Glucose (74-106) mg/dL 121 H Calcium (8.5-10.1) mg/dL 8.7 Magnesium (1.8-2.4) mg/dL 1.8 Total Bilirubin (0.2-1.0) mg/dL 0.2 AST (15-37) U/L 18 ALT (14-59) U/L 14 Alkaline Phosphatase (46-116) U/L 117 H Troponin I (<or=51) ng/L 7 7 NT-Pro-B Natriuret Pep (<300) pg/mL 249 Total Protein (6.4-8.2) g/dL 6.9 Albumin (3.4-5.0) g/dL 2.9 L Lipase (<78) U/L 42 Range/Units 04/28/25 21:06 WBC (4.4-10.8) 10^3/uL RBC (3.93-5.22) 10^6/uL Hgb (11.2-15.7) g/dL Hct (36.0-46.0) % MCV (80-95) fL MCH (27.0-33.0) pg MCHC (32.0-36.0) % RDW (11.7-14.6) % Plt Count (130-400) 10^3/uL MPV (8.0-11.0) fL Immature Gran % % Neutrophils % % Lymphocytes % % Monocytes % % Eosinophils % % Basophils % % Nucleated RBC % (0.0-0.3) % Absolute Neutrophils (1.2-6.7) 10^3/uL Absolute Lymphocytes (1.2-3.4) 10^3/uL Absolute Monocytes (0.1-0.8) 10^3/uL Absolute Eosinophils (0.0-0.7) 10^3/uL Absolute Basophils (0.0-0.2) 10^3/uL PT (9.1-11.1) sec INR (0.9-1.1) APTT (20.6-30.2) sec Sodium (136-145) mmol/L Potassium (3.5-5.1) mmol/L Chloride (98-107) mmol/L Carbon Dioxide (21.0-32.0) mmol/L Anion Gap (3-11) mmol/L BUN (7-18) mg/dL Creatinine (0.55-1.02) mg/dL Est GFR (CKD-EPI 2020) (mL/min/1.73m2) Glucose (74-106) mg/dL Calcium (8.5-10.1) mg/dL Magnesium (1.8-2.4) mg/dL Total Bilirubin (0.2-1.0) mg/dL AST (15-37) U/L ALT (14-59) U/L Alkaline Phosphatase (46-116) U/L Troponin I (<or=51) ng/L 9 NT-Pro-B Natriuret Pep (<300) pg/mL Total Protein (6.4-8.2) g/dL Albumin (3.4-5.0) g/dL Lipase (<78) U/L Quality:SDOH Health Related Social Needs: Health related social needs risk of homeless material hardship house/econ circumstance PFSH All Active Problems (Updated 04/28/25 @ 23:37 by Swati Nguyen MD) Lung mass (Acute) Pain (Acute) Cancer related pain (Acute) Right ear pain (Acute) Myofascial pain (Acute) Chronic pain (Chronic) Generalized weakness (Acute) Advanced care planning/counseling discussion (Acute) COPD (chronic obstructive pulmonary disease) (Chronic) Generalized pain (Acute) Non-small cell lung cancer metastatic to bone (Acute) Scoliosis (Acute) Hernia of abdominal cavity (Acute) Decreased appetite (Acute) Refractory migraine with aura (Acute) Posttraumatic stress disorder (Acute) Nausea (Acute) Asthma (Chronic) Tremor (Acute) Influenza A (Acute) Generalized hyperhidrosis (Acute) Exposure to viral hepatitis (Acute) (Suspected) Functional tremor (Acute) Vertigo (Acute) Weakness (Acute) Fibromyalgia (Acute) High risk medication use (Acute) History of tobacco abuse (Acute) High blood sugar (Acute) Pulmonary nodule (Acute) Nicotine dependence, cigarettes, uncomplicated (Acute) Mass of upper lobe of right lung (Acute) Lesion of ulnar nerve (Acute) Ovarian cyst (Acute) Fatigue (Acute) Note hx fibromyalgia on problem list Depression (Chronic) Medical History Polyneuropathy Chemotherapy induced nausea and vomiting Chronic abdominal pain Abnormal findings on diagnostic imaging of lung Tobacco dependence syndrome Left lower quadrant pain Low back pain Rheumatoid arthritis Deviated nasal septum Chronic pain syndrome Chronic pain due to malignant neoplastic disease Malignant neoplasm metastatic to bone Palliative care patient Pneumonia Advance care planning Palliative care encounter Sepsis Constipation Anxiety Metastatic primary lung cancer Chronic back pain Cervical dysplasia Surgical History H/O endoscopy Hx of colonoscopy H/O LEEP Family History Mother Cancer family history of CA Mother bladder questioning ovarian ca Uncle brain CA Grand father CA unknown origin. 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
[2025-04-28] MEDS: Normal Saline Flush 10 ML SYR IVP (18:33)
[2025-04-28] MEDS: Normal Saline - Diluent 50 ML VIAL IJ (18:33)
[2025-04-28 18:42] LABS: INR 1.1 (0.9-1.1); PTT Activated 34.5 sec (20.6-30.2); Prothrombin Time 10.8 sec (9.1-11.1)
[2025-04-28 19:19] LABS: Troponin I 7 ng/L (<or=51)
[2025-04-28 21:32] LABS: Troponin I 9 ng/L (<or=51)
[2025-04-29] MEDS: HYDROmorphone 2 MG TAB PO
== END 2025-04-29 00:26 | disposition home or self-care (01) ==
PROVIDERS: Emergency Provider Student in an Organized Health Care Education/Training Program; PCP Nurse Practitioner Family
DX: G89.3 Neoplasm related pain (acute) (chronic); R91.8 Other nonspecific abnormal finding of lung field; R07.9 Chest pain, unspecified; Z59.87 Material hardship due to limited financial resources, not elsewhere classified; Z59.89 Other problems related to housing and economic circumstances
CPT/HCPCS: 99284; 99285; 96374; 36415; 71275; 80053; 83690; 93005; 83735; 83880; 84484; 85025; 85610; 85730; 93010; J2270; J3490

== ENCOUNTER 2025-05-07 20:46 | Inpatient (IN) | payer MEDICAID, SELFPAY ==
[2025-05-07] VITALS (16 sets, daily range): BP systolic 101–148; BP diastolic 52–84; PULSE 117–145; RESP 12–30; TEMP 37.4; O2SAT 89–96
--- NOTE | 2025-05-07 20:46 | W.ED.GENAD ---
Discharge Plan Discharge Details Chief Complaint: Nausea/Vomit/Diar Primary Care Provider: Analy Tai ED Provider: Omi Mejia Home Meds and New Rx's Prescriptions: No Action guaifenesin [Mucinex] 600 mg tablet extended release 12hr 600 mg PO Q12H PRN ibuprofen 200 mg tablet See Rx Instructions PO Q6H PRN Rx Instructions: 400 - 800 mg orally every 6 hours PRN; budesonide-formoterol [Symbicort] 160-4.5 mcg/actuation HFA aerosol inhaler 1 puff inhalation 6XD PRN (Reason: wheezing) Qty: 10.2 12RF Probiotic with Prebiotic 1 billion-250 cell-mg capsule 1 cap PO DAILY acetaminophen 500 mg capsule 500 mg PO Q6H PRN celecoxib [Celebrex] 200 mg capsule 200 mg PO Q12H Qty: 60 3RF Rx Instructions: Do not use with ibuprofen or alleve lidocaine 5 % adhesive patch,medicated 1 patch topical DAILY MDD 2 patches Qty: 30 12RF Rx Instructions: leave on most painful area for up to 12 hrs. Apply to painful area on chest wall, request 3x5 size. If insurance will not cover 5%, OK to change to 4% strength. diclofenac sodium 1 % gel 2 g topical QID PRN (Reason: pain) Qty: 100 12RF Rx Instructions: Apply to painful areas (do not apply to same area that is currently has lidocaine patch on it) cholecalciferol (vitamin D3) 25 mcg (1,000 unit) capsule 125 mcg PO DAILY lorazepam 0.5 mg tablet 0.5 mg PO DAILY PRN (Reason: anxiety) Qty: 10 0RF Rx Instructions: Take 1/2 tablet to 1 tablet 15 minutes prior to infusion as needed albuterol sulfate 2.5 mg /3 mL (0.083 %) solution for nebulization 2.5 mg inhalation Q4H PRN (Reason: shortness of breath or wheezing) Qty: 540 5RF ondansetron 4 mg tablet,disintegrating 4 mg PO Q8H PRN Combivent Respimat 20-100 mcg/actuation mist 1 puff inhalation Q6H Qty: 4 6RF albuterol sulfate [Ventolin HFA] 90 mcg/actuation HFA aerosol inhaler See Rx Instructions .ROUTE .COMPLEX Qty: 18 10RF Dose Instruction: INHALE TWO PUFFS BY MOUTH EVERY 4 TO 6 HOURS NEEDED FOR FOR SHORTNESS OF BREATH OR WHEEZE Rx Instructions: INHALE TWO PUFFS BY MOUTH EVERY 4 TO 6 HOURS NEEDED FOR FOR SHORTNESS OF BREATH OR WHEEZE albuterol sulfate 1.25 mg/3 mL solution for nebulization 1.25 mg inhalation 3XD fluticasone propion-salmeterol [Advair HFA] 115-21 mcg/actuation HFA aerosol inhaler 2 puff inhalation Q12H alum-mag hydroxide-simeth [Antacid-Antigas] 200-200-20 mg/5 mL suspension 10 ml PO 4XD PRN Rx Instructions: administer between meals and at bedtime levalbuterol HCl 1.25 mg/3 mL solution for nebulization 1.25 mg inhalation Q2H PRN PRN scopolamine base 1 mg over 3 days patch 3 day 1 patch transdermal Q3D PRN cyproheptadine 4 mg tablet 4 mg PO 3XD PRN omeprazole 20 mg capsule,delayed release(DR/EC) 20 mg PO PRN PRN pantoprazole 40 mg tablet,delayed release (DR/EC) 40 mg PO PRN PRN ipratropium bromide 0.02 % solution 2.5 ml inhalation Q6H PRNQty: 62.5 0RF Rx Instructions: This can be combined with your albuterol nebulizer solution folic acid 1 mg tablet 1 mg PO DAILY Patient Comments: TAKE ONE TABLET BY MOUTH EVERY DAY prochlorperazine maleate [Compazine] 5 mg tablet 5 mg PO TID PRNQty: 15 0RF clotrimazole 10 mg john 10 mg mucous membrane TID PRN HPI General Date/Time Provider Initiated Documentation: 05/07/25 20:46. HPI Narrative: 59 year-old female presents to ED today by EMS with a chief complaint of nausea, vomiting, and diarrhea with onset acute on chronically- has active lung CA- taking a hiatus from chemotherapy to deal with chronic pain issues, also endorsing chest pain, RUQ abdominal pain, and neuropathic pain from thoracic outlet syndrome in her R shoulder. Quality described as extreme pain, no radiation to cough, fever, endorses liquid diarrhea, severe pain all over, perseverating on adverse affects to medicines. Severity is described as severe. Palliating factors include nothing specific. Provoking factors include nothing specific. Events leading up to the incident/Associated Symptoms: Patient was here last week for similar complaints. Patient not anticoagulated. Related Data Home Medications Medication Instructions Recorded Confirmed cholecalciferol (vitamin D3) 25 125 mcg PO DAILY 01/05/22 05/07/25 mcg (1,000 unit) capsule guaifenesin 600 mg tablet, 600 mg PO Q12H PRN 08/22/23 05/07/25 extended release 12 hr (Mucinex) lorazepam 0.5 mg tablet 0.5 mg PO DAILY PRN anxiety #10 11/15/23 05/07/25 tabs albuterol sulfate 2.5 mg/3 mL 2.5 mg (3 mL) inhalation Q4H PRN 12/22/23 05/07/25 (0.083 %) solution for nebulization shortness of breath or wheezing #540 mL ondansetron 4 mg disintegrating 4 mg PO Q8H PRN 04/24/24 05/07/25 tablet Bacillus coagulans-inulin 1 1 cap PO DAILY 05/23/24 05/07/25 billion cell-250 mg capsule (Probiotic with Prebiotic) ipratropium bromide 0.02 % 2.5 ml inhalation Q6H PRN #62.5 mL 07/14/24 05/07/25 solution for inhalation folic acid 1 mg tablet 1 mg PO DAILY 07/21/24 05/07/25 ibuprofen 200 mg tablet See Rx Instructions PO Q6H PRN 10/24/24 05/07/25 prochlorperazine maleate 5 mg 5 mg PO TID PRN #15 tabs 11/07/24 05/07/25 tablet (Compazine) Held on 05/07/25. Instructions: Pt Stopped/Never Started budesonide-formoterol HFA 160 1 puff inhalation 6XD PRN wheezing 11/27/24 05/07/25 mcg-4.5 mcg/actuation aerosol #10.2 grams inhaler (Symbicort) clotrimazole 10 mg john 10 mg mucous membrane TID PRN 11/30/24 05/07/25 acetaminophen 500 mg capsule 500 mg PO Q6H PRN 12/31/24 05/07/25 ipratropium 20 mcg-albuterol 100 1 puff inhalation Q6H #4 grams 01/07/25 05/07/25 mcg/actuation mist for inhalation (Combivent Respimat) celecoxib 200 mg capsule (Celebrex) 200 mg PO Q12H Pain #60 caps 01/28/25 05/07/25 albuterol sulfate 90 mcg/actuation See Rx Instructions .Route 03/20/25 05/07/25 aerosol inhaler (Ventolin HFA) .COMPLEX #18 grams albuterol sulfate 1.25 mg/3 mL 1.25 mg inhalation 3XD 03/24/25 05/07/25 solution for nebulization aluminum-mag hydroxide-simethicone 10 ml PO 4XD PRN 03/24/25 05/07/25 200 mg-200 mg-20 mg/5 mL oral susp (Antacid-Antigas) fluticasone propionate 115 2 puff inhalation Q12H 03/24/25 05/07/25 mcg-salmeterol 21 mcg/actuation HFA inhaler (Advair HFA) Held on 05/07/25. Instructions: Pt Stopped/Never Started levalbuterol HCl 1.25 mg/3 mL 1.25 mg inhalation Q2H PRN PRN 03/24/25 05/07/25 solution for nebulization scopolamine base 1 mg over 3 days 1 patch transdermal Q3D PRN 03/24/25 05/07/25 transdermal patch cyproheptadine 4 mg tablet 4 mg PO 3XD PRN 03/25/25 05/07/25 Held on 05/07/25. Instructions: Pt Stopped/Never Started omeprazole 20 mg capsule,delayed 20 mg PO PRN PRN 04/22/25 05/07/25 release pantoprazole 40 mg tablet,delayed 40 mg PO PRN PRN 04/22/25 05/07/25 release diclofenac sodium 1 % topical gel 2 g topical QID PRN pain #100 grams 04/25/25 05/07/25 lidocaine 5 % topical patch 1 patch topical DAILY Cancer 04/25/25 05/07/25 Held on 05/07/25. related pain #30 ea Instructions: Pt Stopped/Never Started Previous Rx's Medication Instructions Recorded lorazepam 0.5 mg tablet 0.5 mg PO DAILY PRN anxiety #10 11/15/23 tabs albuterol sulfate 2.5 mg/3 mL 2.5 mg (3 mL) inhalation Q4H PRN 12/22/23 (0.083 %) solution for nebulization shortness of breath or wheezing #540 mL ipratropium bromide 0.02 % 2.5 ml inhalation Q6H PRN #62.5 mL 07/14/24 solution for inhalation prochlorperazine maleate 5 mg 5 mg PO TID PRN #15 tabs 11/07/24 tablet (Compazine) Held on 05/07/25. Instructions: Pt Stopped/Never Started budesonide-formoterol HFA 160 1 puff inhalation 6XD PRN wheezing 11/27/24 mcg-4.5 mcg/actuation aerosol #10.2 grams inhaler (Symbicort) ipratropium 20 mcg-albuterol 100 1 puff inhalation Q6H #4 grams 01/07/25 mcg/actuation mist for inhalation (Combivent Respimat) celecoxib 200 mg capsule (Celebrex) 200 mg PO Q12H Pain #60 caps 01/28/25 albuterol sulfate 90 mcg/actuation See Rx Instructions .Route 03/20/25 aerosol inhaler (Ventolin HFA) .COMPLEX #18 grams diclofenac sodium 1 % topical gel 2 g topical QID PRN pain #100 grams 04/25/25 lidocaine 5 % topical patch 1 patch topical DAILY Cancer 04/25/25 Held on 05/07/25. related pain #30 ea Instructions: Pt Stopped/Never Started Allergies Allergy/AdvReac Type Severity Reaction Status Date / Time levofloxacin Allergy Unknown Other (See Verified 05/07/25 20:53 Comment) gabapentin Allergy sharp Verified 05/07/25 20:53 shooting pains pregabalin Allergy sharp Verified 05/07/25 20:53 shooting pain pseudoephedrine (From AdvReac Unknown Other (See Verified 05/07/25 20:53 Sudafed) Comment) narcotics AdvReac Unknown gi upset Uncoded 05/07/25 20:53 General WES: 3 Review of Systems All systems reviewed & are unremarkable except as noted in HPI and below Exam Narrative Exam Narrative: GENERAL APPEARANCE: Well-nourished, non-toxic, awake and alert, atraumatic, moderate acute distress. SKIN: Warm, pale, dry, intact, without rashes/lesions/ulcerations. HEAD: Normocephalic, atraumatic, normal hair distribution for gender/age. EYES: Normal conjunctiva, no exudates on lids/lashes. ENT: Nares patent, no circumoral cyanosis, no facial swelling NECK: Supple, trachea midline, painless cervical ROM. LUNGS/CHEST: Lungs CTA bilaterally- no rhonchi or expiratory wheezes, labored respirations, normal A/P diameter, symmetrical expansion, no chest wall deformity HEART (CV/PV): Regular rate- tachycardic and rhythm without murmur, no peripheral edema, no JVD. ABDOMEN: Soft, non-distended, exquisite tenderness to any palpation, + Austin's, + Rovsing's with L sided palpation. MSK: Normal ROM, no swelling/deformity to bilateral UEs or LEs, moving all extremities without weakness, no cyanosis, spine midline without tenderness, normal curvature. NEURO: Mental Status AAOx4 - alert to person, place, time, events No facial droop, no forehead involvement. Motor: No focal weakness - strength 5/5 in bilateral UEs and LEs, proximal and distal, symmetric. Sensory: sensation intact to light touch globally. Gait normal: patient ambulated without ataxia into ED room. PSYCH: euthymic, cooperative, pleasant, appropriate speech Medical Decision Making This dictation utilizes [id number] dictation software and may contain unedited grammatical errors. 59 year-old female presents to ED today by EMS with a chief complaint of nausea, vomiting, and diarrhea with onset acute on chronically- has active lung CA- taking a hiatus from chemotherapy to deal with chronic pain issues, also endorsing chest pain, RUQ abdominal pain, and neuropathic pain from thoracic outlet syndrome in her R shoulder. Quality described as extreme pain, no radiation to cough, fever, endorses liquid diarrhea, severe pain all over, perseverating on adverse affects to medicines. Severity is described as severe. Palliating factors include nothing specific. Provoking factors include nothing specific. Events leading up to the incident/Associated Symptoms: Patient was here last week for similar complaints. Patients' medical history: Polyneuropathy chemotherapy-induced nausea and vomiting, fibromyalgia, metastatic lung cancer, COPD. Family and social history: denies ETOH use. Pertinent exam findings / vital signs include exquisite tenderness to almost any palpation diffusely, tachycardic, RUQ tenderness, R rib tenderness, afebrile, no respiratory distress. Differential / pathologies of concern include gastroenteritis, c.diff, chronic pain syndrome, PE, metastasis, colitis, biliary colic, PNA, sepsis. Diagnostic studies of: -CBC, CMP, lactate, urinalysis, troponin, lipase, magnesium, TSH, respiratory PCR swab, EKG, CTA chest PE study with CT ABD/pelvis with contrast. - CBC shows leukocytosis of 17.79 without left shift, elevated absolute neutrophils of 14.34, no anemia - Lactate -1.3 - CMP is unremarkable - Magnesium mildly low at 1.7, would replete with normal p.o. intake - Troponin negative - Lipase negative - TSH within normal limits - UA negative for signs of infection - PCR swab negative - EKG shows sinus tachycardia at 126 bpm with no ischemic changes, poor R wave progression, normal axis, normal QTc -CTA Chest w/ CT ABD/Pelvis w Contrast - pending at sign-out Interventions of: -1L IVF NS, 1g IVP APAP, 4mg IVP Zofran, 5mg PO oxycodone x 2 doses, 15mg IVP ketorolac. -Patient requested DuoNeb prior to CT, given 3mL DuoNeb. -Case discussed with Dr. Andujar of hospitalist service at 2230- patient is immune compromised, tachycardic, and has significant leukocytosis and pain - consider admission with update from Dr. Nguyen on imaging results with delayed vRAD read times this evening. - no ABX given yet, cultures being drawn. 2gm cefepime ordered for after 2nd set 2234. ED Course/Assessment/Plan: 59-year-old female presents to ED with nausea vomiting and liquid diarrhea that started at 1500 today, she has stage IV lung cancer with mets, endorses chronic pain syndrome as well as neuropathic thoracic outlet pain related to her tumor, states she is allergic to narcotics but tolerates oxycodone and is having severe pain in the right abdomen, she has an exquisite pain response even to stethoscope gently placed to auscultate diffusely to the thorax and is tachycardic, she does have significant leukocytosis, blood cultures were added on while we await results of her CT, she is signed out with imaging pending as the read is on 2-hour wait. Disposition of Nausea and Vomiting, Chest Pain of Uncertain Etiology, Abdominal Pain of Unknown Cause. Patient verbalized understanding of the plan and return to ED criteria and engaged in shared decision making. Medical Records Medical records reviewed: Yes I reviewed the patient's medical records. Imaging Data Radiologic Study: Attestation: I personally reviewed and interpreted this imaging study as follows: Imaging: CT Scan My impression: Pending at sign-out Lab Data Lab results reviewed: Yes I reviewed the patient's lab results. Labs: Laboratory Tests Range/Units 05/07/25 05/07/25 20:55 20:58 WBC (4.4-10.8) 10^3/uL 17.79 H RBC (3.93-5.22) 10^6/uL 4.27 Hgb (11.2-15.7) g/dL 12.4 Hct (36.0-46.0) % 38.0 MCV (80-95) fL 89 MCH (27.0-33.0) pg 29.0 MCHC (32.0-36.0) % 32.6 RDW (11.7-14.6) % 14.2 Plt Count (130-400) 10^3/uL 744 H MPV (8.0-11.0) fL 8.2 Immature Gran % % 0.4 Neutrophils % % 80.6 Lymphocytes % % 8.4 Monocytes % % 9.6 Eosinophils % % 0.5 Basophils % % 0.5 Nucleated RBC % (0.0-0.3) % 0.0 Absolute Neutrophils (1.2-6.7) 10^3/uL 14.34 H Absolute Lymphocytes (1.2-3.4) 10^3/uL 1.49 Absolute Monocytes (0.1-0.8) 10^3/uL 1.71 H Absolute Eosinophils (0.0-0.7) 10^3/uL 0.09 Absolute Basophils (0.0-0.2) 10^3/uL 0.09 RBC Morphology Normal VBG Lactate (<or=2.0) mmol/L 1.3 Sodium (136-145) mmol/L 139 Potassium (3.5-5.1) mmol/L 3.9 Chloride (98-107) mmol/L 99 Carbon Dioxide (21.0-32.0) mmol/L 29.7 Anion Gap (3-11) mmol/L 10.3 BUN (7-18) mg/dL 9 Creatinine (0.55-1.02) mg/dL 0.6 Est GFR (CKD-EPI 2020) (mL/min/1.73m2) 102.69 Glucose (74-106) mg/dL 143 H Calcium (8.5-10.1) mg/dL 9.6 Magnesium (1.8-2.4) mg/dL 1.7 L Total Bilirubin (0.2-1.0) mg/dL 0.2 AST (15-37) U/L 22 ALT (14-59) U/L 19 Alkaline Phosphatase (46-116) U/L 112 Troponin I (<or=51) ng/L 5 Total Protein (6.4-8.2) g/dL 8.3 H Albumin (3.4-5.0) g/dL 3.3 L Lipase (<78) U/L 34 TSH (0.36-3.74) uIU/mL 0.61 Urine Color (Yellow) Yellow Urine Clarity (Clear) Clear Urine pH (5-8) 7.0 Ur Specific [place] (1.005-1.025) 1.015 Urine Protein (Neg-Trace) mg/dL Negative Urine Ketones (Negative) mg/dL Negative Urine Blood (Negative) Moderate H Urine Nitrite (Negative) Negative Urine Bilirubin (Negative) Small H Urine Urobilinogen (Up to 0.2) mg/dL 0.2 Ur Leukocyte Esterase (Negative) Small H Urine RBC (0-2) HPF 5-10 H Urine WBC (0-5) HPF 5-10 Ur Epithelial Cells (Negative) HPF Rare Urine Crystals (Negative) HPF Negative Urine Bacteria (Negative) HPF Moderate Urine Casts (Negative) LPF Negative Urine Mucus (Negative) Negative Ur Culture Indicated? No Urine Glucose (Negative) mg/dL Negative Quality:SDOH Health Related Social Needs: Health related social needs risk of homeless material hardship house/econ circumstance PFSH All Active Problems (Updated 04/28/25 @ 23:37 by Swati Nguyen MD) Lung mass (Acute) Pain (Acute) Cancer related pain (Acute) Right ear pain (Acute) Myofascial pain (Acute) Chronic pain (Chronic) Generalized weakness (Acute) Advanced care planning/counseling discussion (Acute) COPD (chronic obstructive pulmonary disease) (Chronic) Generalized pain (Acute) Non-small cell lung cancer metastatic to bone (Acute) Scoliosis (Acute) Hernia of abdominal cavity (Acute) Decreased appetite (Acute) Refractory migraine with aura (Acute) Posttraumatic stress disorder (Acute) Nausea (Acute) Asthma (Chronic) Tremor (Acute) Influenza A (Acute) Generalized hyperhidrosis (Acute) Exposure to viral hepatitis (Acute) (Suspected) Functional tremor (Acute) Vertigo (Acute) Weakness (Acute) Fibromyalgia (Acute) High risk medication use (Acute) History of tobacco abuse (Acute) High blood sugar (Acute) Pulmonary nodule (Acute) Nicotine dependence, cigarettes, uncomplicated (Acute) Mass of upper lobe of right lung (Acute) Lesion of ulnar nerve (Acute) Ovarian cyst (Acute) Fatigue (Acute) Note hx fibromyalgia on problem list Depression (Chronic) Medical History Polyneuropathy Chemotherapy induced nausea and vomiting Chronic abdominal pain Abnormal findings on diagnostic imaging of lung Tobacco dependence syndrome Left lower quadrant pain Low back pain Rheumatoid arthritis Deviated nasal septum Chronic pain syndrome Chronic pain due to malignant neoplastic disease Malignant neoplasm metastatic to bone Palliative care patient Pneumonia Advance care planning Palliative care encounter Sepsis Constipation Anxiety Metastatic primary lung cancer Chronic back pain Cervical dysplasia Surgical History H/O endoscopy Hx of colonoscopy H/O LEEP Family History Mother Cancer family history of CA Mother bladder questioning ovarian ca Uncle brain CA Grand father CA unknown origin. 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
--- NOTE | 2025-05-07 21:00 | RT.EKG_ITS ---
APPROVED REPORT Exam: Resting ECG Reason for Exam: CP Patient Location: E HR:126 bpm ECG Measurements Heart Rate 126 AXIS IA 162 P 84 QRSd 95 QRS 87 QT 300 T 86 QTc 435 Conclusion Sinus tachycardia, rate 126 No interval abnormalities No STEMI Compared to priors, rate has inccreased, non-specific T wave changes inf leads
[2025-05-07 21:15] LABS: Abs Immature Grans 0.08 10^3/uL (0.0-0.06); HCT 38.0 % (36.0-46.0); HGB 12.4 g/dL (11.2-15.7); Immature Grans % 0.4 %; MCH 29.0 pg (27.0-33.0); MCHC 32.6 % (32.0-36.0); MCV 89 fL (80-95); MPV 8.2 fL (8.0-11.0); RBC 4.27 10^6/uL (3.93-5.22); RDW 14.2 % (11.7-14.6); RDW-SD 45.9 fL; WBC 17.79 10^3/uL (4.4-10.8)
[2025-05-07 21:17] LABS: Glucose Negative (Negative)
[2025-05-07] MEDS: Ondansetron 4 MG/2 ML VIAL IVP (21:20)
[2025-05-07] MEDS: Normal Saline 1,000 ML 125 ML IV (21:20)
[2025-05-07 21:24] LABS: C & S Indicated? No
[2025-05-07 21:30] LABS: Platelet Count 744 10^3/uL (130-400); RBC Morphology Normal
[2025-05-07] MEDS: ACETAMINOPHEN 1,000 MG/100 ML BAG 400 MG IVPB (21:30)
[2025-05-07] MEDS: oxyCODONE 5 MG TAB PO ×2 (21:30→23:21)
[2025-05-07 21:42] LABS: Lipase 34 U/L (<78); Magnesium 1.7 mg/dL (1.8-2.4); TSH (W/Ref FT4) 0.61 uIU/mL (0.36-3.74); Troponin I 5 ng/L (<or=51)
[2025-05-07 21:53] LABS: ALT 19 U/L (14-59); AST 22 U/L (15-37); Albumin 3.3 g/dL (3.4-5.0); Alkaline Phosphatase 112 U/L (46-116); Anion Gap 10.3 mmol/L (3-11); BUN 9 mg/dL (7-18); Bilirubin, Total 0.2 mg/dL (0.2-1.0); CO2 29.7 mmol/L (21.0-32.0); Calcium 9.6 mg/dL (8.5-10.1); Chloride 99 mmol/L (98-107); Glucose 143 mg/dL (74-106); Potassium 3.9 mmol/L (3.5-5.1); Sodium 139 mmol/L (136-145); Total Protein 8.3 g/dL (6.4-8.2)
[2025-05-07] MEDS: Ketorolac 15 MG/ML VIAL IVP (21:53)
[2025-05-07] MEDS: Albuterol/Ipratropium 3 ML UPD VIAL UPD (22:01)
[2025-05-07] MEDS: Omnipaque 350 MG/ML 100 ML BTL IJ (22:49)
[2025-05-07] MEDS: Normal Saline Flush 10 ML SYR IVP (22:50)
[2025-05-07] MEDS: Normal Saline - Diluent 50 ML VIAL IJ (22:50)
--- NOTE | 2025-05-07 22:58 | DI.CT_ITS ---
Exam(s) CT CHEST PE ABD PELVIS W EXAM: CT CHEST PE ABD PELVIS W CLINICAL HISTORY: known lung CA, cp, N/V/D. TECHNIQUE: Imaging Protocol: Axial CT angiography was performed with multi- slice acquisition and multi-planar and/or 3D reconstructions. Computer aided detection (CAD) was utilized. CONTRAST MATERIAL: Intravenous: Omnipaque 350contrast volume:75 mL COMPARISON: CT CT CHEST/ABD/PEL W from 10/30/[address] CHEST WO from 11/19/[address] CHEST PE CTA from 04/28/2025 FINDINGS: CHEST: Tracheobronchial tree: Patent where visualized. No evidence of bronchiectasis. Pulmonary parenchyma: There is again seen a large right perihilar mass consistent with the patient's known lung carcinoma. There is again seen narrowing of the tracheobronchial tree and pulmonary and veins predominantly to the right upper lobe. The lungs are otherwise clear no focal consolidating inf iltrates are seen on the left. There is a large bulla in the right lung apex. Pulmonary Arteries: There is obstruction of the pulmonary arteries to the right upper lobe secondary to the large mass. Mediastinum and Evette: No dominant adenopathy or fluid collection. The esophagus is unremarkable. Visualized thyroid gland: Unremarkable. Pleura: No effusion or pneumothorax. Heart: The heart is not dilated. Coronary artery calcification is present. No pericardial effusion. Aorta: Thoracic aorta non-dilated. No evidence of dissection. Atherosclerotic calcification is present. Bones: Within normal limits for the patient's age. Soft tissues: Unremarkable. ABDOMEN: Liver: Normal density. There is a 2.4 cm area of decreased attenuation in the right lobe of the liver (series 25, image 13). It is not clearly visualized on prior examinations. Portal, Superior Mesenteric, and Splenic Veins: Unremarkable. Gallbladder and Biliary Tract: No radiodense calculus or dilation. Pancreas: Normal density, no abnormal calcifications or inflammatory process. Spleen: Normal. Adrenals: No masses seen. Kidneys: Normal size, contour and axis. No radiodense stones or obstructive uropathy. No masses seen. Abdominal Aorta: Abdominal portion non-dilated. Atherosclerotic calcification is present. Bowel: There is mild wall thickening seen in loops of both small and large bowel. This may be in part due to underdistention, however an infectious or inflammatory enterocolitis should be considered. There is no evidence of appendicitis. Peritoneal Cavity: No ascites, collection or mesenteric inflammatory response. No free air. Lymph Nodes: Within normal limits. Bones: Within normal limits for the patient's age. Soft Tissues: Unremarkable. PELVIS: Bladder: Symmetric distention, no gross wall thickening. Reproductive Organs: Unremarkable as visualized. Lymph Nodes: Within normal limits. Bones: Within normal limits. IMPRESSION: 1. New 2.4 cm area of decreased attenuation in the right lobe of the liver. The finding is suspicious for hepatic metastasis. MRI without and with contrast of the liver may be obtained for further characterization. 2. Bowel wall thickening seen in both small and large bowel loops. This may represent an infectious or inflammatory enterocolitis. Chemotherapy-induced enteritis should also be considered in this patient. 3. No change in appearance of the large right perihilar pulmonary mass consistent with the patient's known lung carcinoma. 4. There is no evidence of a pulmonary embolism, thoracic aortic dissection or aneurysm. The narrowing and occlusion of pulmonary artery branches to the right upper lobe are likely secondary to tumor compression and/or invasion/tumor thrombus 5. The preliminary [facility] report was reviewed. RADIATION DOSE DELIVERED: 397.27mGy.cm Total DLP DATA REPOSITORY: All CT scans at this facility are submitted to the National Radiology Data Registry (NRDR) Dose Index Registry (DIR) with the [employer] (A[employer]). RADIATION OPTIMIZATION: All CT scans at this facility use at least one of these dose optimization techniques: automated exposure control; mA and/or kV adjustment per patient size (includes targeted exams where dose is matched to clinical indication); or iterative reconstruction.
[2025-05-07] MEDS: CEFEPIME 2 GM in Normal Saline 100 ML IVPB (23:20)
[2025-05-08] VITALS (33 sets, daily range): BP systolic 92–117; BP diastolic 41–69; PULSE 90–116; RESP 16–20; TEMP 37.2–37.4; O2SAT 86–100
--- NOTE | 2025-05-08 00:14 | W.EDPROG ---
Date of service: 05/07/25 Time of Service: 22:30 Medical Decision Making This patient was signed out to me. Please see previous notes for H&P and initial eval. In brief, 59yo F with lung cancer not currently on treatment presenting for N/V/D (does have some chronically but much worse today); also has significant right sided chest/shoulder/abdominal pain which is chronic and unchanged. Has received IVFB, tylenol, zofran, PO oxycodone, IV toradol; has leukocytosis to 17 and blood cultures and abx have been ordered. Signed out pending CT read; if no surgical pathology or pathology requiring transfer would admit to medicine here and case has been discussed with hospitalist liquefaction supervisor by offgoing PA. On my assumption of care blood cultures not yet drawn, requiring lab draw. Nursing was instructed to start abx rather than delay for lab. HR improved to low 100's, however now mild hypoxia O2 sat 87-89% on room air while sleeping (unclear if this is chronic), improves to 94+ while awake. Diminished breath sounds right upper, otherwise clear. Will give 2nd liter IVFB. On my exam abdomen diffusely tender with no rebound or guarding. CT discussed with reading AD radiologist; CT chest again shows RUL carcinoma with obstruction to airways of RUL and compression of pulmonary artery branches to RUL with likely tumor invasion/tumor thrombus which he states is unchanged from CT on 04/28. CT abdomen shows findings consistent with enteritis (this is consistent with clinical presentation) as well as a liver lesion which appears to be new. [facility] [place] during her prior visit; aside for liver lesion no new oncologic findings on imaging and so would not re-consult them at this time. Discussed with [facility] hospitalist Dr. Andujar; pt accepted to medicine service for further workup and management. Awaiting transfer to the floor. Medical Records Medical records reviewed: Yes I reviewed the patient's medical records. Lab Data Lab results reviewed: Yes I reviewed the patient's lab results. Quality:SDOH Health Related Social Needs: Health related social needs risk of homeless material hardship house/econ circumstance Discharge Plan Disposition Patient Disposition: Admit to [facility] Condition: Serious Discharge Details Clinical Impression: Enteritis, Metastatic primary lung cancer Primary Care Provider: Analy Tai ED Provider: Swati Nguyen Home Meds and New Rx's Prescriptions: No Action guaifenesin [Mucinex] 600 mg tablet extended release 12hr 600 mg PO Q12H PRN ibuprofen 200 mg tablet See Rx Instructions PO Q6H PRN Rx Instructions: 400 - 800 mg orally every 6 hours PRN; budesonide-formoterol [Symbicort] 160-4.5 mcg/actuation HFA aerosol inhaler 1 puff inhalation 6XD PRN (Reason: wheezing) Qty: 10.2 12RF Probiotic with Prebiotic 1 billion-250 cell-mg capsule 1 cap PO DAILY acetaminophen 500 mg capsule 500 mg PO Q6H PRN celecoxib [Celebrex] 200 mg capsule 200 mg PO Q12H Qty: 60 3RF Rx Instructions: Do not use with ibuprofen or alleve lidocaine 5 % adhesive patch,medicated 1 patch topical DAILY MDD 2 patches Qty: 30 12RF Rx Instructions: leave on most painful area for up to 12 hrs. Apply to painful area on chest wall, request 3x5 size. If insurance will not cover 5%, OK to change to 4% strength. diclofenac sodium 1 % gel 2 g topical QID PRN (Reason: pain) Qty: 100 12RF Rx Instructions: Apply to painful areas (do not apply to same area that is currently has lidocaine patch on it) cholecalciferol (vitamin D3) 25 mcg (1,000 unit) capsule 125 mcg PO DAILY lorazepam 0.5 mg tablet 0.5 mg PO DAILY PRN (Reason: anxiety) Qty: 10 0RF Rx Instructions: Take 1/2 tablet to 1 tablet 15 minutes prior to infusion as needed albuterol sulfate 2.5 mg /3 mL (0.083 %) solution for nebulization 2.5 mg inhalation Q4H PRN (Reason: shortness of breath or wheezing) Qty: 540 5RF ondansetron 4 mg tablet,disintegrating 4 mg PO Q8H PRN Combivent Respimat 20-100 mcg/actuation mist 1 puff inhalation Q6H Qty: 4 6RF albuterol sulfate [Ventolin HFA] 90 mcg/actuation HFA aerosol inhaler See Rx Instructions .ROUTE .COMPLEX Qty: 18 10RF Dose Instruction: INHALE TWO PUFFS BY MOUTH EVERY 4 TO 6 HOURS NEEDED FOR FOR SHORTNESS OF BREATH OR WHEEZE Rx Instructions: INHALE TWO PUFFS BY MOUTH EVERY 4 TO 6 HOURS NEEDED FOR FOR SHORTNESS OF BREATH OR WHEEZE albuterol sulfate 1.25 mg/3 mL solution for nebulization 1.25 mg inhalation 3XD fluticasone propion-salmeterol [Advair HFA] 115-21 mcg/actuation HFA aerosol inhaler 2 puff inhalation Q12H alum-mag hydroxide-simeth [Antacid-Antigas] 200-200-20 mg/5 mL suspension 10 ml PO 4XD PRN Rx Instructions: administer between meals and at bedtime levalbuterol HCl 1.25 mg/3 mL solution for nebulization 1.25 mg inhalation Q2H PRN PRN scopolamine base 1 mg over 3 days patch 3 day 1 patch transdermal Q3D PRN cyproheptadine 4 mg tablet 4 mg PO 3XD PRN omeprazole 20 mg capsule,delayed release(DR/EC) 20 mg PO PRN PRN pantoprazole 40 mg tablet,delayed release (DR/EC) 40 mg PO PRN PRN ipratropium bromide 0.02 % solution 2.5 ml inhalation Q6H PRNQty: 62.5 0RF Rx Instructions: This can be combined with your albuterol nebulizer solution folic acid 1 mg tablet 1 mg PO DAILY Patient Comments: TAKE ONE TABLET BY MOUTH EVERY DAY prochlorperazine maleate [Compazine] 5 mg tablet 5 mg PO TID PRNQty: 15 0RF clotrimazole 10 mg john 10 mg mucous membrane TID PRN
--- NOTE | 2025-05-08 00:31 | NUR.NOTE ---
Nursing Note: Patient sating 88% on RA. placed patient on 2L NC. O2 sat improved to 97%
[2025-05-08 00:40] LABS: COVID-19 PCR Negative (Negative); RSV PCR Negative (Negative)
[2025-05-08 00:45] LABS: BE (Venous) -2 mmol/L (-2-3); HCO3 (Venous) 23 mmol/L (23-28); TCO2 (Venous) 22 mmol/L (24-29); pCO2 (Venous) 38 mmHg (41-51); pO2 (Venous) 118 mmHg
[2025-05-08 00:47] LABS: O2 Sat (Venous) > 99 %
--- NOTE | 2025-05-08 01:16 | DI.VRAD_ITS ---
PROCEDURE INFORMATION: Exam: CTA Chest With Contrast Exam date and time: 05/07/2025 10:35 PM Age: 59 years old Clinical indication: Nausea and vomiting; Abdominal pain; Other: Chest pain; Other: Nausea/vomiting; Chest pressure; Known lung CA, cp, n/v/d TECHNIQUE: Imaging protocol: Computed tomographic angiography of the chest with contrast. Exam focused on the arteries. 3D rendering (Not supervised by radiologist): MIP and/or 3D reconstructed images were created by the technologist. Radiation optimization: All CT scans at this facility use at least one of these dose optimization techniques: automated exposure control; mA and/or kV adjustment per patient size (includes targeted exams where dose is matched to clinical indication); or iterative reconstruction. Contrast material: [id number]; Contrast volume: 75 ml; Contrast route: INTRAVENOUS (IV); COMPARISON: 1. CT CHEST PE CTA 04/28/2025 6:[address] CHEST PE CTA 09/29/2024 12:18 PM FINDINGS: Limitations: Streak and motion artifacts limit evaluation. Pulmonary arteries: Some right upper lobe pulmonary artery branches are narrowed by the mass, some are truncated and occluded. This is favored to represent tumor invasion and tumor thrombus in the right upper lobe pulmonary arteries, rather than pulmonary emboli. Aorta: There is no thoracic aortic aneurysm. Lungs: No significant interval change is a large soft tissue mass extending from the top of the right lung apex to the right lung hilum. This is consistent with the patient's known carcinoma of the lung. Likewise, there is bronchial occlusion by tumor to the right upper lobe with atelectatic changes. Emphysematous changes of the bilateral apices are present. There is tumor invasion of the right lung hilum and mediastinum. Pleural spaces: Unremarkable. No pneumothorax. No pleural effusion. Heart: The heart is normal in size. There are no pericardial fluid collections. Lymph nodes: No enlarged mediastinal or hilar lymph nodes are seen. Bones/joints: No acute fracture is seen. Soft tissues: Unremarkable. IMPRESSION: 1. Right upper lobe, apical mass consistent with carcinoma. The mass is stable when compared to 04/18/2025, but larger than on 09/29/2024. 2. Some right upper lobe pulmonary artery branches are narrowed by the mass, some are truncated and occluded. This is favored to represent tumor invasion and tumor thrombus in the right upper lobe pulmonary arteries, rather than pulmonary emboli. 3. Likewise, there is bronchial obstruction to the right upper lobe. 4. Underlying bullous emphysematous changes. PROCEDURE INFORMATION: Exam: CT Abdomen And Pelvis With Contrast Exam date and time: 05/07/2025 10:35 PM Age: 59 years old Clinical indication: Nausea and vomiting; Abdominal pain; Other: Chest pain; Other: Nausea/vomiting; Chest pressure; Known lung CA, cp, n/v/d TECHNIQUE: Imaging protocol: Computed tomography of the abdomen and pelvis with contrast. Radiation optimization: All CT scans at this facility use at least one of these dose optimization techniques: automated exposure control; mA and/or kV adjustment per patient size (includes targeted exams where dose is matched to clinical indication); or iterative reconstruction. Contrast material: [id number]; Contrast volume: 75 ml; Contrast route: INTRAVENOUS (IV); COMPARISON: CT CHEST PE CTA 04/28/2025 6:28 PM FINDINGS: Lungs: No consolidation in the visualized lung bases. Liver: The liver is mildly enlarged, measuring 18.3 cm in length at the midclavicular line. In the right lobe of the liver, there is an indeterminate hypodensity measuring 2.7 x 2 x 1.5 cm, not clearly visualized on the comparison examinations, suspicious for metastatic disease. Gallbladder and biliary ducts: No calcified stones. No ductal dilation. Pancreas: Normal in size and homogeneous enhancement. No ductal dilation. Spleen: Normal. No splenomegaly. Adrenal glands: Normal. No mass. Kidneys and ureters: There is no hydronephrosis. No renal or obstructing ureteral calculi. Stomach and bowel: There is thickening of the gastric wall that may be secondary to gastritis or underdistension. Wall thickening of multiple bowel loops consistent with infectious, inflammatory or ischemic enteritis (coronal series 21, images 16 -26; axial series 25, images 44-57). Additionally, the wall of the colon appears thickened without pericolonic stranding. Appendix: No evidence of appendicitis. Intraperitoneal space: No free air. No significant fluid collection. Vasculature: There is moderate atherosclerotic calcification of the abdominal aorta and its branches without aneurysm. The celiac trunk, SMA and JERALD are widely patent. Lymph nodes: No enlarged retroperitoneal or mesenteric lymph nodes. Urinary bladder: The bladder shows a normal contour and is free of calcific opacities. Reproductive: Unremarkable as visualized. Bones/joints: No acute fracture. Mild dextroconvex lumbar rotoscoliosis. Multilevel degenerative disc disease, most prominent at L3-L4 and L4-L5 with mild central spinal canal stenosis at L3-L4 no aggressive bone lesions identified. Soft tissues: Normal. IMPRESSION: 1. A new 2.7 cm hypodense lesion in the right lobe of the liver, suspicious for metastatic disease. 2. There is thickening of the gastric wall that may be secondary to gastritis or underdistension. 3. Wall thickening of multiple bowel loops and the colon consistent with infectious, inflammatory or ischemic enteritis or enterocolitis. Additionally consider chemotherapy-induced enteritis (CIE) in this patient with carcinoma of the lung. Findings were discussed with at 05/08/2025 1:14 AM EDT. Dictated and Authenticated by: Vijay Sumner MD. Orderin Jackie Braga MD
[2025-05-08] MEDS: Normal Saline 1,000 ML 1000 ML IV (01:22)
[2025-05-08] MEDS: Ondansetron 4 MG/2 ML VIAL IVP (02:17)
[2025-05-08] MEDS: MORPHine 4 MG/ML SYR IVP (02:17)
--- NOTE | 2025-05-08 03:25 | W.PC.ACHO ---
Registration Status: REG ER Primary Language: Preferred Language: ED Information & Data Chief Complaint Nausea/Vomit/Diar 05/07/25 20:51 Chief Complaint Nausea/Vomit/Diar 05/07/25 20:46 Triage Note PT has nausea vomiting and 05/07/25 20:46 diarrhea that started at 1500 today. PT has CP that she attributes to coughing. PT has HX of lung Cx and stopped chemo in Feb. Medical / Surgical History (Last Reviewed 04/14/25 @ 12:51 by Cortney Bernardo, MELQUIADES) Polyneuropathy Chemotherapy induced nausea and vomiting Chronic abdominal pain Abnormal findings on diagnostic imaging of lung Tobacco dependence syndrome Left lower quadrant pain Low back pain Rheumatoid arthritis Deviated nasal septum Chronic pain syndrome Chronic pain due to malignant neoplastic disease Malignant neoplasm metastatic to bone Palliative care patient Pneumonia Advance care planning Palliative care encounter Sepsis Constipation Anxiety Metastatic primary lung cancer Chronic back pain Cervical dysplasia (Last Reviewed 04/14/25 @ 12:51 by Cortney Bernardo, MELQUIADES) H/O endoscopy Hx of colonoscopy H/O LEEP Most Recent Vital Signs Temperature 37.4 C 05/07/25 20:46 Temperature Source Axillary 05/07/25 20:46 Pulse 106 H 05/08/25 02:20 Pulse 123 H 05/07/25 22:30 Respiratory Rate 16 05/08/25 03:04 Respiratory Effort Normal, Non-Labored 05/08/25 03:04 Respiratory Depth Normal 05/08/25 03:04 Respiratory Pattern Normal 05/08/25 03:04 Blood Pressure 99/44 L 05/08/25 03:04 Blood Pressure Mean 62 05/08/25 03:04 Blood Pressure Position Supine 05/08/25 03:04 Pulse Oximetry 96 05/08/25 03:05 Oxygen Delivery Method Nasal Cannula 05/08/25 03:05 Oxygen Flow Rate 2 05/08/25 03:05 Pain Level 10 05/07/25 20:56 Allergies levofloxacin Allergy (Unknown, Verified 05/07/25 20:53) Other (See Comment) severe headache, muscle ache, joint pain and inflammation. even my skin hurt. gabapentin Allergy (Verified 05/07/25 20:53) sharp shooting pains pregabalin Allergy (Verified 05/07/25 20:53) sharp shooting pain pseudoephedrine (From Sudafed) Adverse Reaction (Unknown, Verified 05/07/25 20:53) Other (See Comment) narcotics Adverse Reaction (Unknown, Uncoded 05/07/25 20:53) gi upset Active Medications Generic Name Dose Route Start Last Admin Trade Name Mildred PRN Reason Stop Dose Admin Sodium Chloride 1,000 mls @ 125 mls/hr 05/07/25 21:15 05/08/25 01:20 Saline 1000ml Bag IV Infused INFUSION FARHAD Infusion Iohexol 100 ml 05/07/25 23:00 05/07/25 22:49 Omnipaque 350 Mg/Ml 100 Ml Btl IJ 06/06/25 23:59 75 ml DIRECTED FARHAD Administration Sodium Chloride 50 ml 05/07/25 23:00 05/07/25 22:50 Normal Saline - Diluent 50 Ml Vial IJ 50 ml DIRECTED FARHAD Administration Sodium Chloride 0 ml 05/07/25 22:48 05/07/25 22:50 Normal Saline Flush 10 Ml Syr IVP 10 ml PRN PRN Administration IV IV Catheter Type [Right Saline Lock Antecubital] IV Catheter Gauge [Right 20 Antecubital] Diet Orders Category Date Time Status Regular/Normal [DIET] Nutrition 05/08/25 Breakfast Active Diagnostics 05/08/25 05/08/25 05/07/25 Range/Units 05:35 00:43 23:55 WBC Pending (4.4-10.8) 10^3/uL RBC Pending (3.93-5.22) 10^6/uL Hgb Pending (11.2-15.7) g/dL Hct Pending (36.0-46.0) % MCV Pending (80-95) fL MCH Pending (27.0-33.0) pg MCHC Pending (32.0-36.0) % RDW Pending (11.7-14.6) % Plt Count Pending (130-400) 10^3/uL MPV Pending (8.0-11.0) fL Immature Gran % Pending % Neutrophils % Pending % Lymphocytes % Pending % Monocytes % Pending % Eosinophils % Pending % Basophils % Pending % Nucleated RBC % (0.0-0.3) % Absolute Neutrophils Pending (1.2-6.7) 10^3/uL Absolute Lymphocytes Pending (1.2-3.4) 10^3/uL Absolute Monocytes Pending (0.1-0.8) 10^3/uL Absolute Eosinophils Pending (0.0-0.7) 10^3/uL Absolute Basophils Pending (0.0-0.2) 10^3/uL RBC Morphology VBG pH 7.40 (7.31-7.41) VBG pCO2 38 L (41-51) mmHg VBG pO2 118 mmHg VBG HCO3 23 (23-28) mmol/L VBG Total CO2 22 L (24-29) mmol/L VBG O2 Saturation > 99 % VBG Base Excess -2 (-2-3) mmol/L VBG Lactate (<or=2.0) mmol/L Sodium Pending (136-145) mmol/L Potassium Pending (3.5-5.1) mmol/L Chloride Pending (98-107) mmol/L Carbon Dioxide Pending (21.0-32.0) mmol/L Anion Gap Pending (3-11) mmol/L BUN Pending (7-18) mg/dL Creatinine Pending (0.55-1.02) mg/dL Est GFR (CKD-EPI 2020) Pending (mL/min/1.73m2) Glucose Pending (74-106) mg/dL Calcium Pending (8.5-10.1) mg/dL Magnesium (1.8-2.4) mg/dL Total Bilirubin Pending (0.2-1.0) mg/dL AST Pending (15-37) U/L ALT Pending (14-59) U/L Alkaline Phosphatase Pending (46-116) U/L Troponin I (<or=51) ng/L Total Protein Pending (6.4-8.2) g/dL Albumin Pending (3.4-5.0) g/dL Lipase (<78) U/L TSH (0.36-3.74) uIU/mL Urine Color (Yellow) Urine Clarity (Clear) Urine pH (5-8) Ur Specific [place] (1.005-1.025) Urine Protein (Neg-Trace) mg/dL Urine Ketones (Negative) mg/dL Urine Blood (Negative) Urine Nitrite (Negative) Urine Bilirubin (Negative) Urine Urobilinogen (Up to 0.2) mg/dL Ur Leukocyte Esterase (Negative) Urine RBC (0-2) HPF Urine WBC (0-5) HPF Ur Epithelial Cells (Negative) HPF Urine Crystals (Negative) HPF Urine Bacteria (Negative) HPF Urine Casts (Negative) LPF Urine Mucus (Negative) Ur Culture Indicated? Urine Glucose (Negative) mg/dL COVID-19 Source Nasopharynx SARS-CoV-2 (PCR) Negative (Negative) Influenza Type A (PCR) Negative (Negative) Influenza Type B (PCR) Negative (Negative) RSV (PCR) Negative (Negative) 05/07/25 05/07/25 Range/Units 20:58 20:55 WBC 17.79 H (4.4-10.8) 10^3/uL RBC 4.27 (3.93-5.22) 10^6/uL Hgb 12.4 (11.2-15.7) g/dL Hct 38.0 (36.0-46.0) % MCV 89 (80-95) fL MCH 29.0 (27.0-33.0) pg MCHC 32.6 (32.0-36.0) % RDW 14.2 (11.7-14.6) % Plt Count 744 H (130-400) 10^3/uL MPV 8.2 (8.0-11.0) fL Immature Gran % 0.4 % Neutrophils % 80.6 % Lymphocytes % 8.4 % Monocytes % 9.6 % Eosinophils % 0.5 % Basophils % 0.5 % Nucleated RBC % 0.0 (0.0-0.3) % Absolute Neutrophils 14.34 H (1.2-6.7) 10^3/uL Absolute Lymphocytes 1.49 (1.2-3.4) 10^3/uL Absolute Monocytes 1.71 H (0.1-0.8) 10^3/uL Absolute Eosinophils 0.09 (0.0-0.7) 10^3/uL Absolute Basophils 0.09 (0.0-0.2) 10^3/uL RBC Morphology Normal VBG pH (7.31-7.41) VBG pCO2 (41-51) mmHg VBG pO2 mmHg VBG HCO3 (23-28) mmol/L VBG Total CO2 (24-29) mmol/L VBG O2 Saturation % VBG Base Excess (-2-3) mmol/L VBG Lactate 1.3 (<or=2.0) mmol/L Sodium 139 (136-145) mmol/L Potassium 3.9 (3.5-5.1) mmol/L Chloride 99 (98-107) mmol/L Carbon Dioxide 29.7 (21.0-32.0) mmol/L Anion Gap 10.3 (3-11) mmol/L BUN 9 (7-18) mg/dL Creatinine 0.6 (0.55-1.02) mg/dL Est GFR (CKD-EPI 2020) 102.69 (mL/min/1.73m2) Glucose 143 H (74-106) mg/dL Calcium 9.6 (8.5-10.1) mg/dL Magnesium 1.7 L (1.8-2.4) mg/dL Total Bilirubin 0.2 (0.2-1.0) mg/dL AST 22 (15-37) U/L ALT 19 (14-59) U/L Alkaline Phosphatase 112 (46-116) U/L Troponin I 5 (<or=51) ng/L Total Protein 8.3 H (6.4-8.2) g/dL Albumin 3.3 L (3.4-5.0) g/dL Lipase 34 (<78) U/L TSH 0.61 (0.36-3.74) uIU/mL Urine Color Yellow (Yellow) Urine Clarity Clear (Clear) Urine pH 7.0 (5-8) Ur Specific [place] 1.015 (1.005-1.025) Urine Protein Negative (Neg-Trace) mg/dL Urine Ketones Negative (Negative) mg/dL Urine Blood Moderate H (Negative) Urine Nitrite Negative (Negative) Urine Bilirubin Small H (Negative) Urine Urobilinogen 0.2 (Up to 0.2) mg/dL Ur Leukocyte Esterase Small H (Negative) Urine RBC 5-10 H (0-2) HPF Urine WBC 5-10 (0-5) HPF Ur Epithelial Cells Rare (Negative) HPF Urine Crystals Negative (Negative) HPF Urine Bacteria Moderate (Negative) HPF Urine Casts Negative (Negative) LPF Urine Mucus Negative (Negative) Ur Culture Indicated? No Urine Glucose Negative (Negative) mg/dL COVID-19 Source SARS-CoV-2 (PCR) (Negative) Influenza Type A (PCR) (Negative) Influenza Type B (PCR) (Negative) RSV (PCR) (Negative) 05/07/25 23:20 Blood Culture - Pending Blood 05/07/25 23:20 Blood Culture - Pending Blood Intake and Output - 24 Hour Total 05/07/25 20:40 thru 05/08/25 01:20 Intake Total 1200.000 Balance 1200.000 Weight 52.617 kg Intake: IV 1200.000 Falls Risk Assessment History of Falls No History 05/07/25 20:56 Contributing Factors No Factors 05/07/25 20:56 Ambulatory Aids Independent 05/07/25 20:56 Tubes/Lines None 05/07/25 20:56 Gait Evaluation No gait disturbance 05/07/25 20:56 Cognition No cognitive impairment 05/07/25 20:56 Fall Total Score 0 05/07/25 20:56 Level of Risk Standard/Low Risk 05/07/25 20:56 Notes 05/08/25 00:31 Nursing Notes by Pennie Alvarado Nursing Note: Patient sating 88% on RA. placed patient on 2L NC. O2 sat improved to 97% Initialized on 05/08/25 00:31 - END OF NOTE v v v v v v v v v Sending and/or Receiving Nurses: Please use comment section below to note any information pertinent to the patient hand-off not included above. Information / Comments: Report taken from Pennie ED RN, patient came in w/ chief complaints of Nausea,vomiting and diarrhea. She has hx of metastatic lung cancer, stopped chemo last February, No BM since, remain for stool collection. She was on palliative care previously, Patient been tachycardic when moving about. Patient is on room air, CT scan completed. Report received from:
--- NOTE | 2025-05-08 03:46 | W.PM.HP.N ---
Date of service: 05/08/25 Time of Service: 03:46 Assessment and Plan Assessment and plan (1) Non-small cell lung cancer metastatic to bone: Status: Acute Assessment and plan: Patient is in between chemo cycles. She does not want to have radiation. Per CT report her right apical mass is stable (2) Liver mass: Status: Acute Assessment and plan: New finding will need to follow-up in the outpatient setting (3) Enterocolitis: Status: Acute Assessment and plan: Considering her concomitant UTI we will start with Cipro. (4) UTI (urinary tract infection): Status: Acute Assessment and plan: As above, urine cultures have been ordered. (5) Thoracic outlet syndrome: Status: Acute Assessment and plan: Spoke with the patient would most likely benefit from radiation therapy but she refuses at this point. (6) Diarrhea: Status: Acute Assessment and plan: C. difficile is pending but the patient has not had any bowel movement since admission (7) Nausea & vomiting: Status: Acute Assessment and plan: Continue with antibiotics. History of Present Illness History of Present Illness Chief Complaint: diarrhea and abd pain Narrative: This is a 59-year-old female with a known history of lung cancer who is currently not being treated secondary to intolerable pain. In reviewing her records she is seen in consultation with palliative care. Patient presents to the ED tonight with complaints of nausea vomiting and diarrhea. While she was in the ED and an order was placed for C. difficile check this is yet to be done as she has not had any stool. She also had lab work done which was indicative of leukocytosis with a white count of 17,000. She also had thrombocytosis with platelets of 744. Viral panel was negative for respiratory viruses. Her urinalysis did show leukocyte esterase as well as hematuria. CT of her chest did show a right apical mass as well as a new lesion in her liver. She actually got a CT chest as well as abdomen. Patient is aware of the new finding on her exams. Her abdominal CT also showed enteritis and enterocolitis. Patient also was noted to have mild hypomagnesemia. Vital signs were noted for having a tachycardia at 144 but her most recent pulse was 106. Patient is a full code Review of Systems All systems reviewed & are unremarkable except as noted in HPI and below PFSH All Active Problems (Updated 05/08/25 @ 03:55 by Scout Andujar MD) Nausea & vomiting (Acute) Diarrhea (Acute) Thoracic outlet syndrome (Acute) UTI (urinary tract infection) (Acute) Enterocolitis (Acute) Liver mass (Acute) Metastatic primary lung cancer (Acute) Enteritis (Acute) Lung mass (Acute) Pain (Acute) Cancer related pain (Acute) Right ear pain (Acute) Myofascial pain (Acute) Chronic pain (Chronic) Generalized weakness (Acute) Advanced care planning/counseling discussion (Acute) COPD (chronic obstructive pulmonary disease) (Chronic) Generalized pain (Acute) Non-small cell lung cancer metastatic to bone (Acute) Scoliosis (Acute) Hernia of abdominal cavity (Acute) Decreased appetite (Acute) Refractory migraine with aura (Acute) Posttraumatic stress disorder (Acute) Nausea (Acute) Asthma (Chronic) Tremor (Acute) Influenza A (Acute) Generalized hyperhidrosis (Acute) Exposure to viral hepatitis (Acute) (Suspected) Functional tremor (Acute) Vertigo (Acute) Weakness (Acute) Fibromyalgia (Acute) High risk medication use (Acute) History of tobacco abuse (Acute) High blood sugar (Acute) Pulmonary nodule (Acute) Nicotine dependence, cigarettes, uncomplicated (Acute) Mass of upper lobe of right lung (Acute) Lesion of ulnar nerve (Acute) Ovarian cyst (Acute) Fatigue (Acute) Note hx fibromyalgia on problem list Depression (Chronic) Medical History Polyneuropathy Chemotherapy induced nausea and vomiting Chronic abdominal pain Abnormal findings on diagnostic imaging of lung Tobacco dependence syndrome Left lower quadrant pain Low back pain Rheumatoid arthritis Deviated nasal septum Chronic pain syndrome Chronic pain due to malignant neoplastic disease Malignant neoplasm metastatic to bone Palliative care patient Pneumonia Advance care planning Palliative care encounter Sepsis Constipation Anxiety Metastatic primary lung cancer Chronic back pain Cervical dysplasia Surgical History H/O endoscopy Hx of colonoscopy H/O LEEP Family History Mother Cancer family history of CA Mother bladder questioning ovarian ca Uncle brain CA Grand father CA unknown origin. 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 Do you feel safe at home: Yes Do you feel safe in your relationship?: Yes Additional Social history: 1 kid age 15 still at home Meds Allergies and Home Medications Allergies Allergy/AdvReac Type Severity Reaction Status Date / Time levofloxacin Allergy Unknown Other (See Verified 05/07/25 20:53 Comment) gabapentin Allergy sharp Verified 05/07/25 20:53 shooting pains pregabalin Allergy sharp Verified 05/07/25 20:53 shooting pain pseudoephedrine (From AdvReac Unknown Other (See Verified 05/07/25 20:53 Sudafed) Comment) narcotics AdvReac Unknown gi upset Uncoded 05/07/25 20:53 Home Medications Medication Instructions Recorded Confirmed Type cholecalciferol (vitamin D3) 25 125 mcg PO DAILY 01/05/22 05/07/25 History mcg (1,000 unit) capsule guaifenesin 600 mg tablet, 600 mg PO Q12H PRN 08/22/23 05/07/25 History extended release 12 hr (Mucinex) lorazepam 0.5 mg tablet 0.5 mg PO DAILY PRN anxiety #10 11/15/23 05/07/25 Rx tabs albuterol sulfate 2.5 mg/3 mL 2.5 mg (3 mL) inhalation Q4H PRN 12/22/23 05/07/25 Rx (0.083 %) solution for nebulization shortness of breath or wheezing #540 mL ondansetron 4 mg disintegrating 4 mg PO Q8H PRN 04/24/24 05/07/25 History tablet Bacillus coagulans-inulin 1 1 cap PO DAILY 05/23/24 05/07/25 History billion cell-250 mg capsule (Probiotic with Prebiotic) ipratropium bromide 0.02 % 2.5 ml inhalation Q6H PRN #62.5 mL 07/14/24 05/07/25 Rx solution for inhalation folic acid 1 mg tablet 1 mg PO DAILY 07/21/24 05/07/25 History ibuprofen 200 mg tablet See Rx Instructions PO Q6H PRN 10/24/24 05/07/25 History prochlorperazine maleate 5 mg 5 mg PO TID PRN #15 tabs 11/07/24 05/07/25 Rx tablet (Compazine) Held on 05/07/25. Instructions: Pt Stopped/Never Started budesonide-formoterol HFA 160 1 puff inhalation 6XD PRN wheezing 11/27/24 05/07/25 Rx mcg-4.5 mcg/actuation aerosol #10.2 grams inhaler (Symbicort) clotrimazole 10 mg john 10 mg mucous membrane TID PRN 11/30/24 05/07/25 History acetaminophen 500 mg capsule 500 mg PO Q6H PRN 12/31/24 05/07/25 History ipratropium 20 mcg-albuterol 100 1 puff inhalation Q6H #4 grams 01/07/25 05/07/25 Rx mcg/actuation mist for inhalation (Combivent Respimat) celecoxib 200 mg capsule (Celebrex) 200 mg PO Q12H Pain #60 caps 01/28/25 05/07/25 Rx albuterol sulfate 90 mcg/actuation See Rx Instructions .Route 03/20/25 05/07/25 Rx aerosol inhaler (Ventolin HFA) .COMPLEX #18 grams albuterol sulfate 1.25 mg/3 mL 1.25 mg inhalation 3XD 03/24/25 05/07/25 History solution for nebulization aluminum-mag hydroxide-simethicone 10 ml PO 4XD PRN 03/24/25 05/07/25 History 200 mg-200 mg-20 mg/5 mL oral susp (Antacid-Antigas) fluticasone propionate 115 2 puff inhalation Q12H 03/24/25 05/07/25 History mcg-salmeterol 21 mcg/actuation HFA inhaler (Advair HFA) Held on 05/07/25. Instructions: Pt Stopped/Never Started levalbuterol HCl 1.25 mg/3 mL 1.25 mg inhalation Q2H PRN PRN 03/24/25 05/07/25 History solution for nebulization scopolamine base 1 mg over 3 days 1 patch transdermal Q3D PRN 03/24/25 05/07/25 History transdermal patch cyproheptadine 4 mg tablet 4 mg PO 3XD PRN 03/25/25 05/07/25 History Held on 05/07/25. Instructions: Pt Stopped/Never Started omeprazole 20 mg capsule,delayed 20 mg PO PRN PRN 04/22/25 05/07/25 History release pantoprazole 40 mg tablet,delayed 40 mg PO PRN PRN 04/22/25 05/07/25 History release diclofenac sodium 1 % topical gel 2 g topical QID PRN pain #100 grams 04/25/25 05/07/25 Rx lidocaine 5 % topical patch 1 patch topical DAILY Cancer 04/25/25 05/07/25 Rx Held on 05/07/25. related pain #30 ea Instructions: Pt Stopped/Never Started Exam Narrative Exam Narrative: HEENT-normocephalic atraumatic mucous membranes moist oropharynx clear Neck-no lymphadenopathy no JVD no thyromegaly Cardiovascular-regular rate and rhythm no murmurs gallops Lungs-clear to auscultation laterally speaking in complete sentences. Actually could not hear any cough or any on exam Abdomen scaphoid Extremities no sinus clubbing or edema bilaterally Neurologic cranial nerves III through XII intact as tested Results Labs 05/07/25 20:58 05/07/25 20:58 Labs: Laboratory Results - last 24 hr 05/07/25 05/07/25 05/07/25 20:55 20:58 23:55 WBC 17.79 H RBC 4.27 Hgb 12.4 Hct 38.0 MCV 89 MCH 29.0 MCHC 32.6 RDW 14.2 Plt Count 744 H MPV 8.2 Immature Gran % 0.4 Neutrophils % 80.6 Lymphocytes % 8.4 Monocytes % 9.6 Eosinophils % 0.5 Basophils % 0.5 Nucleated RBC % 0.0 Absolute Neutrophils 14.34 H Absolute Lymphocytes 1.49 Absolute Monocytes 1.71 H Absolute Eosinophils 0.09 Absolute Basophils 0.09 RBC Morphology Normal VBG pH VBG pCO2 VBG pO2 VBG HCO3 VBG Total CO2 VBG O2 Saturation VBG Base Excess VBG Lactate 1.3 Sodium 139 Potassium 3.9 Chloride 99 Carbon Dioxide 29.7 Anion Gap 10.3 BUN 9 Creatinine 0.6 Est GFR (CKD-EPI 2020) 102.69 Glucose 143 H Calcium 9.6 Magnesium 1.7 L Total Bilirubin 0.2 AST 22 ALT 19 Alkaline Phosphatase 112 Troponin I 5 Total Protein 8.3 H Albumin 3.3 L Lipase 34 TSH 0.61 Urine Color Yellow Urine Clarity Clear Urine pH 7.0 Ur Specific [place] 1.015 Urine Protein Negative Urine Ketones Negative Urine Blood Moderate H Urine Nitrite Negative Urine Bilirubin Small H Urine Urobilinogen 0.2 Ur Leukocyte Esterase Small H Urine RBC 5-10 H Urine WBC 5-10 Ur Epithelial Cells Rare Urine Crystals Negative Urine Bacteria Moderate Urine Casts Negative Urine Mucus Negative Ur Culture Indicated? No Urine Glucose Negative COVID-19 Source Nasopharynx SARS-CoV-2 (PCR) Negative Influenza Type A (PCR) Negative Influenza Type B (PCR) Negative RSV (PCR) Negative 05/08/25 00:43 WBC RBC Hgb Hct MCV MCH MCHC RDW Plt Count MPV Immature Gran % Neutrophils % Lymphocytes % Monocytes % Eosinophils % Basophils % Nucleated RBC % Absolute Neutrophils Absolute Lymphocytes Absolute Monocytes Absolute Eosinophils Absolute Basophils RBC Morphology VBG pH 7.40 VBG pCO2 38 L VBG pO2 118 VBG HCO3 23 VBG Total CO2 22 L VBG O2 Saturation > 99 VBG Base Excess -2 VBG Lactate Sodium Potassium Chloride Carbon Dioxide Anion Gap BUN Creatinine Est GFR (CKD-EPI 2020) Glucose Calcium Magnesium Total Bilirubin AST ALT Alkaline Phosphatase Troponin I Total Protein Albumin Lipase TSH Urine Color Urine Clarity Urine pH Ur Specific [place] Urine Protein Urine Ketones Urine Blood Urine Nitrite Urine Bilirubin Urine Urobilinogen Ur Leukocyte Esterase Urine RBC Urine WBC Ur Epithelial Cells Urine Crystals Urine Bacteria Urine Casts Urine Mucus Ur Culture Indicated? Urine Glucose COVID-19 Source SARS-CoV-2 (PCR) Influenza Type A (PCR) Influenza Type B (PCR) RSV (PCR) Last Vital Signs Temp 37.4 C 05/07/25 20:46 Pulse 106 H 05/08/25 02:20 Resp 16 05/08/25 03:04 BP 99/44 L 05/08/25 03:04 Pulse Ox 96 05/08/25 03:05 Time Spent Time spent with Patient: 40-54 minutes Time was spent: preparing to see the patient(eg.review tests), obtaining and/or reviewing separately otained hiistory, ordering medications,tests, procedures, referring, communicating with other health career services director, indepentently interpreting results, counseling the patient and care coordination
[2025-05-08] MEDS: Normal Saline 1,000 ML 125 ML IV (03:49)
[2025-05-08] MEDS: metroNIDAZOLE 500 MG TAB PO ×3 (05:27→22:12)
[2025-05-08] MEDS: Acetaminophen 500 MG TAB PO ×3 (06:04→18:29)
--- NOTE | 2025-05-08 06:10 | NUR.NOTE ---
Nursing Note: Since admission, patient been complaining of too much generalized pain. MD notified by charge nurse . Patient refused morphine as ordered because of side effect of headache and does not help her at all. Celebrex ordered refused because it's a generic name. Tylenol given and it upsets her because the dosage is only 500 mg. Patient uses her own inhaler, she declined to surrender for pharmacy, increasingly verbal aggressive noticed. Continue to provide education but patient has poor insight.
[2025-05-08] MEDS: Ondansetron O.D.T. 4 MG TABEF PO ×2 (07:29→16:10)
[2025-05-08 07:39] LABS: EPI 027-NAP1-B1 PRESUMPTIVE NEGATIVE
[2025-05-08] MEDS: Ipratropium/Albuterol 4 GM 120 PUFF INH IH ×2 (08:59→20:53)
[2025-05-08] MEDS: Budesonide/Formoterol 160/4.5 6 GM 60 PUFF INH IH ×2 (08:59→19:59)
--- NOTE | 2025-05-08 09:51 | INITIAL_ITS ---
Date of service: 05/08/25 Time of Service: 09:52 Care Management Initial Assmt Initial Assessment Reason for Hospitalization: enteritis Functional Status/Living Situation Patient Presentation: Nakita was sitting up in bed when CM met with her. She was pleasant and engaged well in conversation. She stated that she went to the ED due to the unbearable pain she was experiencing; she stated that she has been suffering with pain for many months, and her providers have not been able to keep it well controlled in the community. She reported that she lives with her teenage son in [facility] [facility] [place], and has another, older son who lives in the area. She has six children in total; the other four live in [place]. She is independent at baseline, but her two local children are helpful and willing to support her needs, if they arise. 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 She receives support from palliative care, [facility] and [facility]. CM will continue to follow. Town of Residence: [place] Resides with: Child Significant Other/Family: Local Natural Supports: Nakita has 6 children and 12 grandchildren. Employment Status: Retired Instrumental Activities of Daily Living (ADLs): Independent Activities/Hobbies/SocialSupport: Nakita loves to sew, but has not been able to recently, due to pain. Medications Medication Management: No Issues/Barriers identified Physical Functioning/Mobility Assistive Device: none Advance Directives Advance Directives: Do you have an Advance Directive: N , 08:39 AD On File at [facility]: N 02/27/25, 08:39 Date Asked 05/08/25 Today, 07:39 AD Date Reviewed COLST On File at [facility] COLST Date Scanned Code Status Resuscitation Status Full Code Insurance Coverage/Financial Issues Insurance: [facility] Care Team Visit Care Team Role Provider Type Abdi Waldron MD MD [facility] STAFF PHYSICIAN Analy Tai Primary Care Provider NURSE PRACTITIONER [facility] Saud Henson Other Providers OTHER Swati Nguyen MD Emergency Provider [facility] STAFF PHYSICIAN Scout Andujar MD Admit Provider [facility] STAFF PHYSICIAN Attending Provider Discharge Potential Discharge Needs: PCP F/U Appt Anticipated Barriers to Discharge: None Identified Patient/Family Education Needs: Review discharge instructions, discuss Ask Me Three Transportation: Private vehicle Plan: Anticipate Nakita will return home once medically cleared. Her son will drive her home via private vehicle when ready. She will follow up with her PCP and discharge plan of care. CM will continue to follow. Social Determinants of Health Screening Social Determinants of health last assessed in clinic: 05/08/25 Will the Patient Participate in the Screening?: Yes Do you worry about having a steady place to live?: yes What is your living situation today?: I have housing today, but am worried about losing it Problems where you live: no known problems In the past 12 months, have you had to go without electric, gas, oil or water in your home?: no 1. Within the past 12 months, we worried whether our food would run out before we got money to buy more.: Sometimes true 2. Within the past 12 months, the food we bought just didn't last and we didn't have money to get more.: Sometimes true Has lack of transportation kept you from medical appointments or from doing things needed for daily living?: no Has anyone in your life made you feel unsafe or unsupported?: no How hard is it for you to pay for the very basics like food, housing, medical care, and heating? Would you say it is:: Not hard at all Do you want help finding or keeping work or a job?: I do not need or want help If for any reason you need help with day-to-day activities such as bathing, preparing meals, shopping, managing finances, etc., do you get the help you need?: I don’t need any help How often do you feel lonely or isolated from those around you?: Rarely Do you speak a language other than Occitan at home?: No Does the patient want assistance with any of the above?: No Health Related Social Needs Health related social needs: housing instability, housed, with risk of homelessness (Z59.811), food insecurity (Z59.41) and feeling lonely/isolated (Z60.8) Health related social needs details: using community services. [facility] All Active Problems (Updated 05/08/25 @ 03:55 by Scout Andujar MD) Nausea & vomiting (Acute) Diarrhea (Acute) Thoracic outlet syndrome (Acute) UTI (urinary tract infection) (Acute) Enterocolitis (Acute) Liver mass (Acute) Metastatic primary lung cancer (Acute) Enteritis (Acute) Lung mass (Acute) Pain (Acute) Cancer related pain (Acute) Right ear pain (Acute) Myofascial pain (Acute) Chronic pain (Chronic) Generalized weakness (Acute) Advanced care planning/counseling discussion (Acute) COPD (chronic obstructive pulmonary disease) (Chronic) Generalized pain (Acute) Non-small cell lung cancer metastatic to bone (Acute) Scoliosis (Acute) Hernia of abdominal cavity (Acute) Decreased appetite (Acute) Refractory migraine with aura (Acute) Posttraumatic stress disorder (Acute) Nausea (Acute) Asthma (Chronic) Tremor (Acute) Influenza A (Acute) Generalized hyperhidrosis (Acute) Exposure to viral hepatitis (Acute) (Suspected) Functional tremor (Acute) Vertigo (Acute) Weakness (Acute) Fibromyalgia (Acute) High risk medication use (Acute) History of tobacco abuse (Acute) High blood sugar (Acute) Pulmonary nodule (Acute) Nicotine dependence, cigarettes, uncomplicated (Acute) Mass of upper lobe of right lung (Acute) Lesion of ulnar nerve (Acute) Ovarian cyst (Acute) Fatigue (Acute) Note hx fibromyalgia on problem list Depression (Chronic) Medical History Polyneuropathy Chemotherapy induced nausea and vomiting Chronic abdominal pain Abnormal findings on diagnostic imaging of lung Tobacco dependence syndrome Left lower quadrant pain Low back pain Rheumatoid arthritis Deviated nasal septum Chronic pain syndrome Chronic pain due to malignant neoplastic disease Malignant neoplasm metastatic to bone Palliative care patient Pneumonia Advance care planning Palliative care encounter Sepsis Constipation Anxiety Metastatic primary lung cancer Chronic back pain Cervical dysplasia Surgical History H/O endoscopy Hx of colonoscopy H/O LEEP Family History Mother Cancer family history of CA Mother bladder questioning ovarian ca Uncle brain CA Grand father CA unknown origin. 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
[2025-05-08 10:15] LABS: Abs Immature Grans 0.06 10^3/uL (0.0-0.06); HCT 32.3 % (36.0-46.0); HGB 10.6 g/dL (11.2-15.7); Immature Grans % 0.4 %; MCH 29.5 pg (27.0-33.0); MCHC 32.8 % (32.0-36.0); MCV 90 fL (80-95); MPV 8.4 fL (8.0-11.0); Platelet Count 610 10^3/uL (130-400); RBC 3.59 10^6/uL (3.93-5.22); RDW 14.4 % (11.7-14.6); RDW-SD 47.3 fL; WBC 14.05 10^3/uL (4.4-10.8)
[2025-05-08 10:30] LABS: ALT 12 U/L (14-59); AST 19 U/L (15-37); Albumin 2.5 g/dL (3.4-5.0); Alkaline Phosphatase 81 U/L (46-116); Anion Gap 10.3 mmol/L (3-11); BUN 6 mg/dL (7-18); Bilirubin, Total 0.4 mg/dL (0.2-1.0); CO2 23.7 mmol/L (21.0-32.0); Calcium 8.4 mg/dL (8.5-10.1); Chloride 103 mmol/L (98-107); Glucose 140 mg/dL (74-106); Potassium 3.2 mmol/L (3.5-5.1); Sodium 137 mmol/L (136-145); Total Protein 6.3 g/dL (6.4-8.2)
[2025-05-08] MEDS: Folic Acid 1 MG TAB PO (10:39)
--- NOTE | 2025-05-08 11:33 | PT.INNT ---
PT Notes Visit Reasons: Enteritis A PT evaluation was attempted but patient was in considerable discomfort and wanted to do PT in the afternoon instead. Nurse Roverto was updated and will plan to give patient her pain mediaction after so PT could see alexis again for an attenpt at evaluation.
[2025-05-08] MEDS: Ibuprofen 400 MG TAB PO ×2 (12:24→18:29)
[2025-05-08] MEDS: Sulfameth/Trimeth DS TAB 1 TAB PO ×2 (12:25→18:31)
--- NOTE | 2025-05-08 13:48 | CHAPLAIN ---
I had a brief visit with Nakita. She was looking for help with the remote. I couldn't get it to work either. I explained my role and offered support.
--- NOTE | 2025-05-08 14:22 | PHA.REVIEW2 ---
Pharmacy Admission Review Admission Clinical Review Admission Pharmacy Review: Nausea & vomiting (Acute) Diarrhea (Acute) Thoracic outlet syndrome (Acute) UTI (urinary tract infection) (Acute) Enterocolitis (Acute) Liver mass (Acute) Non-small cell lung cancer metastatic to bone (Acute) levofloxacin Allergy (Unknown, Verified 05/07/25 20:53) Other (See Comment) gabapentin Allergy (Verified 05/07/25 20:53) sharp shooting pains pregabalin Allergy (Verified 05/07/25 20:53) sharp shooting pain pseudoephedrine (From Sudafed) Adverse Reaction (Unknown, Verified 05/07/25 20:53) Other (See Comment) narcotics Adverse Reaction (Unknown, Uncoded 05/07/25 20:53) gi upset Resuscitation Status Full Code Height 5 ft 5 in Weight 53.6 kg Pharmacy Admission Review Renal Dosing Renal Dosing: BUN 6 mg/dL (7-18) L 05/08/25 09:45 Creatinine 0.5 mg/dL (0.55-1.02) L 05/08/25 09:45 Medications needing adjustments: Reviewed (CrCl 50.58 mL/min) List of meds needing interventions: Current medications are okay Anticoagulation Anticoagulation: Hgb 10.6 g/dL (11.2-15.7) L 05/08/25 09:45 Hct 32.3 % (36.0-46.0) L 05/08/25 09:45 Plt Count 610 10^3/uL (130-400) H 05/08/25 09:45 Creatinine 0.5 mg/dL (0.55-1.02) L 05/08/25 09:45 DVT Prophylaxis: Reviewed (Hgb decreased from 12.4) Medications: Enoxaparin (40mg daily) Opiate Usage Evaluate Pain Scale/Pains Meds: Reviewed (oxycodone 5mg q4h PRN - no doses given) Scheduled Bowel Reg ordered if on Opiates?: No (PRN docusate/Miralax) Relevant Labs Relevant Labs: Sodium 137 mmol/L (136-145) 05/08/25 09:45 Potassium 3.2 mmol/L (3.5-5.1) L 05/08/25 09:45 Chloride 103 mmol/L (98-107) 05/08/25 09:45 Magnesium 1.7 mg/dL (1.8-2.4) L 05/07/25 20:58 Electrolytes, C-Reactive P, ESR: Reviewed Cardiac Review Cardiac Review: Troponin I 5 ng/L (<or=51) 05/07/25 20:58 Blood Pressure 114/69 0733 Blood Pressure 98/57 0401 Blood Pressure 98/57 0354 BP, HR, EF%: Reviewed (HR 116) QTc Review QTc: Reviewed (435 from 05/07/25) IV to PO Switch IV Medications: Reviewed Home Meds Home Med List reviewed: Intervened Relevent Home Meds Not ordered & why?: clotrimazole (PRN), duloxetine, lidocaine patch (listed as not taking on home med list) Asked provider about duloxetine, they are looking into it. Waiting to hear back. Changed Celebrex to patients own order per patient request as they take brand name only. Med brought to pharmacy, verified, labeled and sent to floor. Asked nurse to see if patient takes naltrexone or loratadine at home - both recently filled but not on home med list. Per nurse patient does not take at home On home med list acetaminophen listed as scheduled but order is as needed. Provider would like to leave as PRN for now Changed order for probiotic to patients own med - told nurse this will have to be brought in if patient wants to take while inpatient Current Meds Current Medication Order Review: Intervened Comments: Added IV access Changed omeprazole from PRN PRN to DAILY PRN PRN Changed diclofenac gel from non-formulary order Pharmacy Antibiotic Review Relevant Labs: WBC 14.05 10^3/uL (4.4-10.8) H 05/08/25 09:45 Temperature 37.2 C Temperature 37.4 C Temperature 37.4 C Pharmacy Antibiotic Activity: C/S review and Reviewed, no change Comments: Patient is on metronidazole PO and Bactrim PO, day 1, for enteritis/UTI. WBC decreased from 17.79 and blood/urine cultures pending.
--- NOTE | 2025-05-08 15:05 | IN_ITS ---
PT Notes Visit Reasons: Enteritis Physical Therapy Inpatient Initial Evaluation Date: 05/08/2025 Referring Doctor: Scout Andujar MD PT Orders: PT CONSULT: Eval/Treat Precautions: Standard. Activity as tolerated. Patient Profile/Admitting Diagnosis: Nakita is a 59-year-old female admitted to the ED due to nausea, vomiting, and diarrhea. 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 PMhx: All Active Problems (Updated 05/08/25 @ 03:55 by Scout Andujar MD) Nausea & vomiting (Acute) Diarrhea (Acute) Thoracic outlet syndrome (Acute) UTI (urinary tract infection) (Acute) Enterocolitis (Acute) Liver mass (Acute) Metastatic primary lung cancer (Acute) Enteritis (Acute) Lung mass (Acute) Pain (Acute) Cancer related pain (Acute) Right ear pain (Acute) Myofascial pain (Acute) Chronic pain (Chronic) Generalized weakness (Acute) Advanced care planning/counseling discussion (Acute) COPD (chronic obstructive pulmonary disease) (Chronic) Generalized pain (Acute) Non-small cell lung cancer metastatic to bone (Acute) Scoliosis (Acute) Hernia of abdominal cavity (Acute) Decreased appetite (Acute) Refractory migraine with aura (Acute) Posttraumatic stress disorder (Acute) Nausea (Acute) Asthma (Chronic) Tremor (Acute) Influenza A (Acute) Generalized hyperhidrosis (Acute) Exposure to viral hepatitis (Acute) (Suspected)Functional tremor (Acute) Vertigo (Acute) Weakness (Acute) Fibromyalgia (Acute) High risk medication use (Acute) History of tobacco abuse (Acute) High blood sugar (Acute) Pulmonary nodule (Acute) Nicotine dependence, cigarettes, uncomplicated (Acute) Mass of upper lobe of right lung (Acute) Lesion of ulnar nerve (Acute) Ovarian cyst (Acute) Fatigue (Acute) Note hx fibromyalgia on problem list Depression (Chronic) Medical History Polyneuropathy Chemotherapy induced nausea and vomiting Chronic abdominal pain Abnormal findings on diagnostic imaging of lung Tobacco dependence syndrome Left lower quadrant pain Low back pain Rheumatoid arthritis Deviated nasal septum Chronic pain syndrome Chronic pain due to malignant neoplastic disease Malignant neoplasm metastatic to bone Palliative care patient Pneumonia Advance care planning Palliative care encounter Sepsis Constipation Anxiety Metastatic primary lung cancer Chronic back pain Cervical dysplasia Surgical History H/O endoscopy Hx of colonoscopy H/O LEEP Social History/Home Situation: Independent with all aspects of ADLs prior to admission Equipment Owned/DME: None Subjective: Does not want to use a walker, feels okay without it. Was okay walking in room without a device. Agreeable with putting bedside commode over toilet so she could walk to and from the toilet which she did without difficulty. Objective: General Observation: In bed and in pain earlier today but was up and about later in the afternoon walling inside room without an assistive device Mental Status: Alert and oriented as to person, place, time, and purpose. Able to pay attention, focus, and respond appropriately. Pain: Generalized body pain due to cancer Vital Signs: Closely monitored by nursing staff ROM: Right Upper Extremity: Shoulder Flexion WFL. Shoulder abduction WFL. Elbow flexion WFL. Wrist flexion WFL. Functional opening and closing of hand WFL. Left Upper Extremity: Shoulder Flexion WFL. Shoulder abduction WFL. Elbow flexion WFL. Wrist flexion WFL. Functional opening and closing of hand WFL. Right Lower Extremity: Hip flexion WFL. Hip abduction WFL. Knee flexion WFL. Ankle dorsiflexion WFL. Ankle plantarflexion WFL. Left Lower Extremity: Hip flexion WFL. Hip abduction WFL. Knee flexion WFL. Ankle dorsiflexion WFL. Ankle plantarflexion WFL. Strength: Right Upper Extremity: Shoulder flexors 4/5. Shoulder abductors 4/5. Elbow flexors 4/5. Elbow extensors 4/5. Pe Electrical Engineer strong. Left Upper Extremity: Shoulder flexors 4/5. Shoulder abductors 4/5. Elbow flexors 4/5. Elbow extensors 4/5. Pe Electrical Engineer strong. Right Lower Extremity: Hip flexors 4/5. Hip abductors 4/5. Knee flexors 4/5. Knee extensors 4/5. Ankle dorsiflexors 4/5. Ankle plantarflexors 4/5. Left Lower Extremity: Hip flexors 4/5. Hip abductors 4/5. Knee flexors 4/5. Knee extensors 4/5. Ankle dorsiflexors 4/5. Ankle plantarflexors 4/5. Bed Mobility/Transfers: Minimal cueing provided for use of B hands as needed for support, movement sequence, AD management, and posture to reduce fall risk and minimize pain report Rolling independent Supine to sit independent Sit to supine independent Sit to stand independent Stand to sit independent Bed to reclining chair independent Gait: Patient with unremarkable gait pattern but with report of generalized pain due to ongoing lung cancer with metastases to the liver. Balance: Static Sitting: Normal Dynamic Sitting: Normal Static Standing: Fair Dynamic Standing: Fair Special Tests: Mobility Limitations Standardized Measure [facility]-P[facility] 6 clicks Basic Mobility Inpatient Short Form: Raw Score: 24 CMS Score: 0% deficit Informed Consent/Education: Patient was instructed in purpose of PT consult. Assessment: B UE/LE strength is at baseline level. Mobility level is at baseline as well. Patient is independent inside room without an assistive device. To help alleviate pain, use of the front-wheeled walker was offered to see if she was okay walking in the hallway. Patient declined and said that she wanted to take it easy as her pain level can change anytime and that she would rather stay in room for now. Nurse Layne has pre-medicated patient an hour or so ago. Nursing staff may supervise patient with hallway ambulation if patient is agreeable. Patient presents with clinical signs and symptoms consistent with current/admitting diagnoses that have resulted to mobility limitations, gait instability, generalized weakness, and overall ADL decline as demonstrated by the following impairment level findings: 1. Chronic generalized cancer pain 2. Chronic decline in activity tolerance due to metastatic cancer Impairments are contributing to the following functional limitations: 1. Decreased activity tolerance Patient is assessed as a 52722 low complexity based on the following: History: 59-year-old female with past medical history as indicated above Examination: As above Presentation: Evolving due to ongoing cancer diagnosis Decision Makin low complexity Goals: N/A. PT evaluation only. Plan of Care/Treatment Plan: N/A. PT evaluation only. Independent in room without device. Supervision in hallway with nursing staff without device. DISCHARGE RECOMMENDATIONS: Home when medically cleared by MD. No equipment needs at this time. TREATMENT CODE/TIME: 23915 x 15 minutes for 1 unit (15:05-15:20). Thank you for the opportunity to participate in the care of this patient. Nuria Suárez PT, DPT, CLT [facility], [place]
[2025-05-08] MEDS: oxyCODONE 5 MG TAB PO ×2 (16:10→21:14)
[2025-05-08] MEDS: Simethicone 80 MG CHEW PO ×2 (18:59→21:01)
[2025-05-08] MEDS: Normal Saline Flush 10 ML SYR IVP (21:14)
[2025-05-09] MEDS: oxyCODONE 5 MG TAB PO ×4 (01:36→20:41)
[2025-05-09] MEDS: Acetaminophen 500 MG TAB PO ×2 (01:39→07:17)
[2025-05-09] MEDS: metroNIDAZOLE 500 MG TAB PO ×3 (05:47→21:51)
[2025-05-09] MEDS: Sulfameth/Trimeth DS TAB 1 TAB PO ×2 (07:18→17:52)
[2025-05-09 07:56] VITALS: BP 94/83; PULSE 96; RESP 17; TEMP 36.4; O2SAT 92
[2025-05-09] MEDS: Ipratropium/Albuterol 4 GM 120 PUFF INH IH ×2 (08:06→13:00)
[2025-05-09] MEDS: Cholecalciferol (Vitamin D3) 1,000 UNIT TAB 5000 UNITS PO (09:51)
[2025-05-09] MEDS: Folic Acid 1 MG TAB PO (09:51)
[2025-05-09] MEDS: Simethicone 80 MG CHEW PO ×4 (09:52→21:51)
[2025-05-09] MEDS: Normal Saline Flush 10 ML SYR IVP ×2 (09:54→20:42)
[2025-05-09] MEDS: Budesonide/Formoterol 160/4.5 6 GM 60 PUFF INH IH ×2 (10:03→18:11)
[2025-05-09] MEDS: Ibuprofen 400 MG TAB PO (12:39)
[2025-05-09] MEDS: Acetaminophen 500 MG TAB 1000 MG PO ×2 (15:28→21:52)
--- NOTE | 2025-05-09 16:35 | W.PM.PROGNOT ---
Date of Service Date of service: 05/09/25 Time of Service: 16:00 Assessment and Plan Assessment and plan (1) Allodynia: Status: Acute Assessment and plan: Difficult to assess due to patient's need to vocalize her experience and previous sites of pain Possible side effect of chemotherapy, possible factitious She has innumerable allergies and adverse reactions to medication She is willing to add some lorazepam to her regimen (2) Non-small cell lung cancer metastatic to bone: Status: Acute Assessment and plan: Patient is in between chemo cycles. She does not want to have radiation. Per CT report her right apical mass is stable (3) Liver mass: Status: Acute Assessment and plan: New finding will need to follow-up in the outpatient setting (4) Enterocolitis: Status: Acute Assessment and plan: Considering her concomitant UTI we will start with Cipro. (5) UTI (urinary tract infection): Status: Acute Assessment and plan: As above, urine cultures have been ordered. (6) Thoracic outlet syndrome: Status: Acute Assessment and plan: Spoke with the patient would most likely benefit from radiation therapy but she refuses at this point. (7) Diarrhea: Status: Acute Assessment and plan: C. difficile is pending but the patient has not had any bowel movement since admission (8) Nausea & vomiting: Status: Acute Assessment and plan: Continue with antibiotics. Subjective Subjective Interval history since last seen: Ms. Hancock continues to report intolerable pain throughout her lengthy explanations of her situation. She hopes that somebody will have a spark of intuition and solve her problem. Very challenging patient. Exam Narrative Exam Narrative: General: This is an emotional, thin woman in active distress due to reported pain HEENT: Normocephalic, atraumatic CV: RRR Resp: CTAB Abd: soft, NTND MSK: voluntary motion x4 Neuro: awake, alert, no focal deficits Objective Last Vital Signs Temp 36.4 C L 05/09/25 07:56 Pulse 96 H 05/09/25 07:56 Resp 17 05/09/25 07:56 BP 94/83 L 05/09/25 07:56 Pulse Ox 92 05/09/25 07:56 Time Spent with Patient Time Spent with Patient: 35-49 minutes Time was spent: preparing to see the patient(eg.review tests), obtaining and/or reviewing separately otained hiistory, ordering medications,tests, procedures, referring, communicating with other health critical care technician, indepentently interpreting results, counseling the patient and care coordination
[2025-05-09] MEDS: LORazepam 0.5 MG TAB PO ×4 (16:52→21:53)
--- NOTE | 2025-05-09 17:50 | PDOC.CMPRO ---
Date of service: 05/09/25 Time of Service: 17:50 Care Management Progress Note Progress Note Text Progress Note Text: Nakita was sitting up in her bed when CM met with her. She stated that she has been trying to nap all afternoon, but she can't get comfortable. She reported that her pain has been more difficult to manage today, but she is using a heating pad and ice, alternating, as well as medication, as prescribed. She stated that per MD, she will likely discharge tomorrow. She expressed frustration, as she was hoping for more answers and relief from pain. She stated that her son will drive her home, but he has to work at 2:30, so it will need to be before that. She stated that she does not feel that she needs services at home at this time. CM will continue to follow. Discharge Potential Discharge Needs: PCP F/U Appt Anticipated Barriers to Discharge: None Identified Patient/Family Education Needs: Review discharge instructions, discuss Ask Me Three Transportation: Private vehicle Plan: Anticipate Nakita will return home once medically cleared. Her son will drive her home via private vehicle when ready. She will follow up with her PCP and discharge plan of care. CM will continue to follow. Social Determinants of Health Screening Social Determinants of health last assessed in clinic: 05/09/25 Will the Patient Participate in the Screening?: Yes Do you worry about having a steady place to live?: yes What is your living situation today?: I have housing today, but am worried about losing it Problems where you live: no known problems In the past 12 months, have you had to go without electric, gas, oil or water in your home?: no 1. Within the past 12 months, we worried whether our food would run out before we got money to buy more.: Sometimes true 2. Within the past 12 months, the food we bought just didn't last and we didn't have money to get more.: Sometimes true Has lack of transportation kept you from medical appointments or from doing things needed for daily living?: no Has anyone in your life made you feel unsafe or unsupported?: no How hard is it for you to pay for the very basics like food, housing, medical care, and heating? Would you say it is:: Not hard at all Do you want help finding or keeping work or a job?: I do not need or want help If for any reason you need help with day-to-day activities such as bathing, preparing meals, shopping, managing finances, etc., do you get the help you need?: I don’t need any help How often do you feel lonely or isolated from those around you?: Rarely Do you speak a language other than [place] at home?: No Does the patient want assistance with any of the above?: No Health Related Social Needs Health related social needs: housing instability, housed, with risk of homelessness (Z59.811), food insecurity (Z59.41) and feeling lonely/isolated (Z60.8) Health related social needs details: using community services.
[2025-05-10] MEDS: oxyCODONE 5 MG TAB PO ×3 (04:00→14:07)
[2025-05-10] MEDS: LORazepam 0.5 MG TAB PO (04:01)
[2025-05-10] MEDS: Acetaminophen 500 MG TAB 1000 MG PO ×2 (04:01→14:07)
[2025-05-10] MEDS: metroNIDAZOLE 500 MG TAB PO ×2 (06:21→14:07)
[2025-05-10] MEDS: Sulfameth/Trimeth DS TAB 1 TAB PO (06:57)
[2025-05-10 07:55] VITALS: BP 94/57; PULSE 91; RESP 17; TEMP 36.9; O2SAT 91
[2025-05-10] MEDS: Ipratropium/Albuterol 4 GM 120 PUFF INH IH (08:07)
[2025-05-10] MEDS: Simethicone 80 MG CHEW PO ×2 (08:28→14:07)
[2025-05-10] MEDS: Folic Acid 1 MG TAB PO (08:28)
[2025-05-10] MEDS: Ibuprofen 400 MG TAB PO (08:29)
[2025-05-10] MEDS: Budesonide/Formoterol 160/4.5 6 GM 60 PUFF INH IH (09:06)
--- NOTE | 2025-05-10 10:19 | W.PM.DS.N ---
Date of service: 05/10/25 Time of Service: 10:00 DS: Diagnosis Discharge Diagnosis (1) Allodynia: Status: Acute Asessment and Plan: Difficult to assess due to patient's need to vocalize her experience and previous sites of pain Possible side effect of chemotherapy, possible factitious She has innumerable allergies and adverse reactions to medication She is willing to add some lorazepam to her regimen She reports she has a supply of lorazepam at home for use after discharge (2) Non-small cell lung cancer metastatic to bone: Status: Acute Asessment and Plan: Patient is in between chemo cycles. She does not want to have radiation. Per CT report her right apical mass is stable (3) Liver mass: Status: Acute Asessment and Plan: New finding will need to follow-up in the outpatient setting (4) Enterocolitis: Asessment and Plan: Discontinued antibiotics (5) UTI (urinary tract infection): Asessment and Plan: Urine culture negative, discontinued antibiotics (6) Thoracic outlet syndrome: Asessment and Plan: Patient has decided against radiation treatment (7) Diarrhea: Status: Resolved Asessment and Plan: Much improved Negative C diff (8) Nausea & vomiting: Status: Resolved Asessment and Plan: Improved with anti-emetics Antibiotics discontinued Discharge Plan Disposition Patient Disposition: Home Condition: Fair Discharge Details Reason For Visit: Enteritis Admit Date/Time: 05/08/25 02:59 Admit Provider: Scout Andujar Attending Provider: Scout Andujar Primary Care Provider: Analy Tai Hospital Course Hospital Course: Nakita Hancock is a 59 year old woman presenting May 07 with nausea and vomiting, in the setting of advanced metastatic lung cancer. Patient was admitted and her symptoms have improved. She reports intolerable pain, partially in her right upper chest wall and right flank. She reports that she is unable to get comfortable enough to sleep. Patient has innumerable medications that she is unable to take, including most controlled substances. Her understanding of her disease process, and of her pain, includes possible chemotherapy side effects, and it also includes topics from her research that make her unwilling to take medications that are associated with side effects that may cause new symptoms or new disease processes such as serotonin syndrome. Patient hopes that some medical provider will put the pieces together and find a way to help her symptoms. She has had some relief with oxycodone and lorazepam. Unfortunately her ability to have additional diagnostic workup is beyond the scope of this facility and she is encouraged to see her regular providers in clinic for additional care. Home Meds and New Rx's Prescriptions: Continued guaifenesin [Mucinex] 600 mg tablet extended release 12hr 600 mg PO Q12H PRN budesonide-formoterol [Symbicort] 160-4.5 mcg/actuation HFA aerosol inhaler 1 puff inhalation 6XD PRN (Reason: wheezing) Qty: 10.2 12RF Probiotic with Prebiotic 1 billion-250 cell-mg capsule 1 cap PO DAILY celecoxib [Celebrex] 200 mg capsule 200 mg PO Q12H Qty: 60 3RF Rx Instructions: Do not use with ibuprofen or alleve diclofenac sodium 1 % gel 2 g topical QID PRN (Reason: pain) Qty: 100 12RF Rx Instructions: Apply to painful areas (do not apply to same area that is currently has lidocaine patch on it) cholecalciferol (vitamin D3) 25 mcg (1,000 unit) capsule 125 mcg PO DAILY lorazepam 0.5 mg tablet 0.5 mg PO DAILY PRN (Reason: anxiety) Qty: 10 0RF Rx Instructions: Take 1/2 tablet to 1 tablet 15 minutes prior to infusion as needed albuterol sulfate 2.5 mg /3 mL (0.083 %) solution for nebulization 2.5 mg inhalation Q4H PRN (Reason: shortness of breath or wheezing) Qty: 540 5RF ondansetron 4 mg tablet,disintegrating 4 mg PO Q8H PRN Combivent Respimat 20-100 mcg/actuation mist 1 puff inhalation Q6H Qty: 4 6RF albuterol sulfate [Ventolin HFA] 90 mcg/actuation HFA aerosol inhaler See Rx Instructions .ROUTE .COMPLEX Qty: 18 10RF Dose Instruction: INHALE TWO PUFFS BY MOUTH EVERY 4 TO 6 HOURS NEEDED FOR FOR SHORTNESS OF BREATH OR WHEEZE Rx Instructions: INHALE TWO PUFFS BY MOUTH EVERY 4 TO 6 HOURS NEEDED FOR FOR SHORTNESS OF BREATH OR WHEEZE albuterol sulfate 1.25 mg/3 mL solution for nebulization 1.25 mg inhalation 3XD alum-mag hydroxide-simeth [Antacid-Antigas] 200-200-20 mg/5 mL suspension 10 ml PO 4XD PRN Rx Instructions: administer between meals and at bedtime levalbuterol HCl 1.25 mg/3 mL solution for nebulization 1.25 mg inhalation Q2H PRN PRN scopolamine base 1 mg over 3 days patch 3 day 1 patch transdermal Q3D PRN omeprazole 20 mg capsule,delayed release(DR/EC) 20 mg PO PRN PRN ipratropium bromide 0.02 % solution 2.5 ml inhalation Q6H PRNQty: 62.5 0RF Rx Instructions: This can be combined with your albuterol nebulizer solution folic acid 1 mg tablet 1 mg PO DAILY Patient Comments: TAKE ONE TABLET BY MOUTH EVERY DAY clotrimazole 10 mg john 10 mg mucous membrane TID PRN oxycodone 5 mg tablet 5 mg PO Q4H PRN Patient Comments: TAKE ONE TABLET BY MOUTH EVERY 4 HOURS NEEDED FOR PAIN ibuprofen 800 mg tablet 800 mg PO TID PRN Patient Comments: TAKE ONE TABLET BY MOUTH THREE TIMES A DAY NEEDED acetaminophen 500 mg tablet 1,000 mg PO TID Patient Comments: TAKE TWO TABLETS BY MOUTH THREE TIMES A DAY Discontinued lidocaine 5 % adhesive patch,medicated 1 patch topical DAILY MDD 2 patches Qty: 30 12RF Rx Instructions: leave on most painful area for up to 12 hrs. Apply to painful area on chest wall, request 3x5 size. If insurance will not cover 5%, OK to change to 4% strength. No Action duloxetine 20 mg capsule,delayed release(DR/EC) 20 mg PO TID Discharge Instructions Referrals: Analy Tai [Primary Care Provider, Medicine] Referral Note: Office will call you in a few days to follow-up. Activity:: Activity as Tolerated Equipment/Supplies:: No Equipment Needed Diet:: As Tolerated Discharge Orders Discharge Orders: Discharge Order (Routine); Ordered 05/10/25 Ordered By: Dakota Naik Discharge Data Discharge Date/Time-TO BE ENTERED AT DEPARTURE: 05/10/25 17:16 DS: Summary Time Spent with Patient providing and/or coordinating discharge services: Less than 30 minutes Status at Discharge Functional status at discharge: independent ambulation Overall status at discharge: patient is progressing back to baseline Mental Status: mental status grossly normal Speech and Movement: speech and movement normal Mood: anxious mood and labile mood Affect: anxious affect Quality:SDOH Health Related Social Needs: Health related social needs risk of homeless food insecurity lonely/isolated Health related social needs details using community services. Health related social needs details: using community services. Exam Narrative Exam Narrative: General: This is an emotional, thin woman in active distress due to reported pain HEENT: Normocephalic, atraumatic CV: RRR Resp: CTAB Abd: soft, NTND MSK: voluntary motion x4 Neuro: awake, alert, no focal deficits Psych Mental Status: mental status grossly normal Speech and Movement: speech and movement normal Mood: anxious mood and labile mood Affect: anxious affect DS: Data Vitals/I&O Vitals and I&O: Vital Signs Temperature 36.9 C 05/10/25 07:55 Temperature Source Temporal Artery Scan 05/10/25 07:55 Pulse 91 H 05/10/25 07:55 Pulse Rhythm Irregular 05/08/25 03:54 Pulse 123 H 05/07/25 22:30 Respiratory Rate 17 05/10/25 07:55 Respiratory Effort Non-Labored 05/08/25 03:54 Respiratory Depth Normal 05/08/25 03:54 Respiratory Pattern Irregular 05/08/25 03:54 Blood Pressure 94/57 L 05/10/25 07:55 Blood Pressure Mean 69 05/10/25 07:55 Blood Pressure Position Supine 05/08/25 03:04 Pulse Oximetry 91 L 05/10/25 07:55 Oxygen Delivery Method Room Air 05/10/25 07:55 Oxygen Flow Rate 0 05/10/25 07:55 Pain Level 6 05/10/25 08:31 Intake & Output 05/09/25 05/09/25 05/10/25 11:59 23:59 11:59 Intake Total 480 / 480 Balance 480 / 480 Weight 52.9 kg 53.4 kg Intake: Oral 480 / 480 Other: Urine Color Yellow Yellow Urine Appearance Clear Clear Comment reported by pt voiding ind Stool Size Moderate Stool Characteristics Soft Data Completed and Pending Pending Labs at Discharge: 05/07/25 05/07/25 05/07/25 20:55 20:58 23:55 WBC 17.79 H RBC 4.27 Hgb 12.4 Hct 38.0 MCV 89 MCH 29.0 MCHC 32.6 RDW 14.2 Plt Count 744 H MPV 8.2 Immature Gran % 0.4 Neutrophils % 80.6 Lymphocytes % 8.4 Monocytes % 9.6 Eosinophils % 0.5 Basophils % 0.5 Nucleated RBC % 0.0 Absolute Neutrophils 14.34 H Absolute Lymphocytes 1.49 Absolute Monocytes 1.71 H Absolute Eosinophils 0.09 Absolute Basophils 0.09 RBC Morphology Normal VBG pH VBG pCO2 VBG pO2 VBG HCO3 VBG Total CO2 VBG O2 Saturation VBG Base Excess VBG Lactate 1.3 Sodium 139 Potassium 3.9 Chloride 99 Carbon Dioxide 29.7 Anion Gap 10.3 BUN 9 Creatinine 0.6 Est GFR (CKD-EPI 2020) 102.69 Glucose 143 H Calcium 9.6 Magnesium 1.7 L Total Bilirubin 0.2 AST 22 ALT 19 Alkaline Phosphatase 112 Troponin I 5 Total Protein 8.3 H Albumin 3.3 L Lipase 34 TSH 0.61 Urine Color Yellow Urine Clarity Clear Urine pH 7.0 Ur Specific Fisher 1.015 Urine Protein Negative Urine Ketones Negative Urine Blood Moderate H Urine Nitrite Negative Urine Bilirubin Small H Urine Urobilinogen 0.2 Ur Leukocyte Esterase Small H Urine RBC 5-10 H Urine WBC 5-10 Ur Epithelial Cells Rare Urine Crystals Negative Urine Bacteria Moderate Urine Casts Negative Urine Mucus Negative Ur Culture Indicated? No Urine Glucose Negative Stl C.difficile Tox PCR COVID-19 Source Nasopharynx SARS-CoV-2 (PCR) Negative Influenza Type A (PCR) Negative Influenza Type B (PCR) Negative RSV (PCR) Negative 05/08/25 05/08/25 05/08/25 00:43 06:40 09:45 WBC 14.05 H RBC 3.59 L Hgb 10.6 L Hct 32.3 L MCV 90 MCH 29.5 MCHC 32.8 RDW 14.4 Plt Count 610 H MPV 8.4 Immature Gran % 0.4 Neutrophils % 77.9 Lymphocytes % 10.0 Monocytes % 10.7 Eosinophils % 0.4 Basophils % 0.6 Nucleated RBC % 0.0 Absolute Neutrophils 10.94 H Absolute Lymphocytes 1.41 Absolute Monocytes 1.50 H Absolute Eosinophils 0.06 Absolute Basophils 0.08 RBC Morphology VBG pH 7.40 VBG pCO2 38 L VBG pO2 118 VBG HCO3 23 VBG Total CO2 22 L VBG O2 Saturation > 99 VBG Base Excess -2 VBG Lactate Sodium 137 Potassium 3.2 L Chloride 103 Carbon Dioxide 23.7 Anion Gap 10.3 BUN 6 L Creatinine 0.5 L Est GFR (CKD-EPI 2020) 107.31 Glucose 140 H Calcium 8.4 L Magnesium Total Bilirubin 0.4 AST 19 ALT 12 L Alkaline Phosphatase 81 Troponin I Total Protein 6.3 L Albumin 2.5 L Lipase TSH Urine Color Urine Clarity Urine pH Ur Specific Fisher Urine Protein Urine Ketones Urine Blood Urine Nitrite Urine Bilirubin Urine Urobilinogen Ur Leukocyte Esterase Urine RBC Urine WBC Ur Epithelial Cells Urine Crystals Urine Bacteria Urine Casts Urine Mucus Ur Culture Indicated? Urine Glucose Stl C.difficile Tox PCR Negative COVID-19 Source SARS-CoV-2 (PCR) Influenza Type A (PCR) Influenza Type B (PCR) RSV (PCR) Preliminary micro results at discharge 05/07/25 23:20 Blood Blood Culture - Preliminary NO GROWTH 48 HOURS 05/07/25 23:20 Blood Blood Culture - Preliminary NO GROWTH 48 HOURS PFSH All Active Problems (Updated 05/11/25 @ 00:02 by BERTIN REY) Allodynia (Acute) Liver mass (Acute) Metastatic primary lung cancer (Acute) Enteritis (Acute) Lung mass (Acute) Pain (Acute) Cancer related pain (Acute) Right ear pain (Acute) Myofascial pain (Acute) Chronic pain (Chronic) Generalized weakness (Acute) Advanced care planning/counseling discussion (Acute) COPD (chronic obstructive pulmonary disease) (Chronic) Generalized pain (Acute) Non-small cell lung cancer metastatic to bone (Acute) Scoliosis (Acute) Hernia of abdominal cavity (Acute) Decreased appetite (Acute) Refractory migraine with aura (Acute) Posttraumatic stress disorder (Acute) Nausea (Acute) Asthma (Chronic) Tremor (Acute) Influenza A (Acute) Generalized hyperhidrosis (Acute) Exposure to viral hepatitis (Acute) (Suspected) Functional tremor (Acute) Vertigo (Acute) Weakness (Acute) Fibromyalgia (Acute) High risk medication use (Acute) History of tobacco abuse (Acute) High blood sugar (Acute) Pulmonary nodule (Acute) Nicotine dependence, cigarettes, uncomplicated (Acute) Mass of upper lobe of right lung (Acute) Lesion of ulnar nerve (Acute) Ovarian cyst (Acute) Fatigue (Acute) Note hx fibromyalgia on problem list Depression (Chronic) Medical History Polyneuropathy Chemotherapy induced nausea and vomiting Chronic abdominal pain Abnormal findings on diagnostic imaging of lung Tobacco dependence syndrome Left lower quadrant pain Low back pain Rheumatoid arthritis Deviated nasal septum Chronic pain syndrome Chronic pain due to malignant neoplastic disease Malignant neoplasm metastatic to bone Palliative care patient Pneumonia Advance care planning Palliative care encounter Sepsis Constipation Anxiety Metastatic primary lung cancer Chronic back pain Cervical dysplasia Surgical History H/O endoscopy Hx of colonoscopy H/O LEEP Family History Mother Cancer family history of CA Mother bladder questioning ovarian ca Uncle brain CA Grand father CA unknown origin. 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
--- NOTE | 2025-05-10 14:46 | CMDISCH_ITS ---
Date of service: 05/10/25 Time of Service: 14:47 LACE Index Scoring Tool Questions: Length of Stay (in days): 2 Was the patient admitted via the E.D.?: Yes Comorbidities: Chronic Pulmonary Disease and Metastatic Solid Tumor E.D. Visits: 4 Answers: Total Score: 14 Risk of Readmission: High Risk Care Management Discharge Plan Reason for Hospitalization: pain Discharge Plan: Nakita is discharged home today with no new services. She will f/u with her PCP and continue per her plan of care. PCP was notified by CM via that Nakita is interested in a TENS unit and also a water-filled hot pack. Nakita will transport home with her son and continue per her plan of care. SDOH Health Related Social Needs: Health related social needs risk of homeless food inse curity lonely/isolated Health related social needs details using community se rvices. Health related social needs details: using community services.
== END 2025-05-10 17:16 | disposition home or self-care (01) | DRG 948 ==
LOC: ER 05-08 03:36 → MS 05-08 06:39
PROVIDERS: Physician Assistant; Admitting Provider Hospitalist; Emergency Provider Student in an Organized Health Care Education/Training Program; PCP Nurse Practitioner Family; Responsible Provider Family Medicine; Visit Provider Hospitalist
DX: G89.3 Neoplasm related pain (acute) (chronic) (principal); C34.81 Malignant neoplasm of overlapping sites of right bronchus and lung; C79.51 Secondary malignant neoplasm of bone; N39.0 Urinary tract infection, site not specified; Z59.811 Housing instability, housed, with risk of homelessness; G54.0 Brachial plexus disorders; R20.8 Other disturbances of skin sensation; K52.9 Noninfective gastroenteritis and colitis, unspecified; D75.839 Thrombocytosis, unspecified; D72.829 Elevated white blood cell count, unspecified; E83.42 Hypomagnesemia; R16.0 Hepatomegaly, not elsewhere classified; R53.1 Weakness; J44.9 Chronic obstructive pulmonary disease, unspecified; R25.1 Tremor, unspecified; F43.10 Post-traumatic stress disorder, unspecified; G43.109 Migraine with aura, not intractable, without status migrainosus; Z79.899 Other long term (current) drug therapy; F32.A Depression, unspecified; G62.9 Polyneuropathy, unspecified; M06.9 Rheumatoid arthritis, unspecified; K59.00 Constipation, unspecified; F17.210 Nicotine dependence, cigarettes, uncomplicated; Z59.41 Food insecurity; R45.89 Other symptoms and signs involving emotional state
CPT/HCPCS: 00123; 36415; 71275; 74177; 80053; 82805; 83690; 87040; 87637; 93005; 94640; 96361; 96365; 96367; 96375; 97161; 99285; 81003; 81015; 83605; 83735; 84443; 84484; 85025; 87086; 93010; 94664; 94760; 99222; 99232; 99238; J0131; J0692; J1885; J2270; J2405; J3490; J7620

== ENCOUNTER 2025-05-14 07:08 | Observation (INO) | payer MEDICAID, SELFPAY ==
[2025-05-14] VITALS (45 sets, daily range): BP systolic 90–124; BP diastolic 43–85; PULSE 107–132; RESP 13–36; TEMP 37.6–40.3; O2SAT 89–100
--- NOTE | 2025-05-14 07:07 | W.ED.GENAD ---
Discharge Plan Disposition Patient Disposition: Admit to [facility] Discharge Details Clinical Impression: Mass of upper lobe of right lung, Cough Admit Date/Time: 05/14/25 11:36 Admit Provider: Dakota Naik Attending Provider: Dakota Naik Primary Care Provider: Analy Tai ED Provider: Andres Vu Discharge Data Discharge Date/Time-TO BE ENTERED AT DEPARTURE: 05/14/25 11:53 HPI General Date/Time Provider Initiated Documentation: 05/14/25 07:23. HPI Narrative: MDM This is an uncomfortable appearing normothermic but tachycardic 59-year-old female with metastatic lung cancer and generalized pain with presentation concerning for sepsis for which she will receive broad-spectrum antibiotics assessment of lactate and blood cultures. No pain out of proportion to suggest necrotizing soft tissue infection. Given cough we will swab for COVID and complete chest x-ray to assess for pneumonia. No dysuria to suggest UTI. Soft nontender abdomen so I am not suspicious for intra-abdominal infection. Specifically no right upper quadrant tenderness to suggest acute cholecystitis. No diarrhea nor left lower quadrant tenderness to suggest increased risk for diverticulitis. Given nausea will obtain troponins to assess for ACS. No rash to abdomen to suggest zoster. No focal neurological deficits to suggest CVA. No nuchal rigidity to suggest meningitis. Will reassess following labs and imaging. Reassuring normal lactate. 8:58 AM CBC with no leukocytosis. Worsened thrombocytosis. No anemia. Normal reassuring initial troponin. Comprehensive metabolic panel with no DARIEN. Slightly improved hypoalbuminemia. No acute electrolyte abnormalities. 9:51 AM Repeat reassuring troponin. 10 AM I met with the patient. She was still having pain. Her temperature had increased. I gave her acetaminophen. She is nearly febrile. Given enlargement of her right upper lobe mass with cough we will plan on hospitalizing. Will also treat with doxycycline. 10:26 AM I was in touch with Dr. Naik who graciously agreed to accept the patient for hospitalization. Diagnostic interpretations performed by me: Per my independent interpretation chest x-ray shows: Per my independent interpretation EKG shows: Sinus tachycardia rate of 118. Normal axis. Intervals within normal limits. No ST segment abnormalities. Appears similar to prior dated earlier this month. No acute injury pattern. HPI This is a female with a history of lung cancer presenting with severe pain. The patient reports experiencing severe pain due to a tumor in her chest, which has led to thoracic outlet syndrome. The pain radiates from her right lung to her breast, shoulder, neck, and ear, often resulting in headaches. The pain has been worsening over the past few weeks. She also reports pain in her knees and skin, describing it as a sensation silvia to being poisoned. The patient reports no recent increase in cough or difficulty breathing. She is not currently on any antibiotics. She was admitted to the hospital last night due to fever and was discharged on 05/11/2025 after a 3.5-day stay. Her current pain management regimen includes low-dose oxycodone and Tylenol, as she has sensitivities to certain medications, particularly narcotics. This morning, she took oxycodone 5 mg and two 500 mg Tylenol tablets, which resulted in vomiting within an hour. She also reports experiencing stomach pain. Exam General: Uncomfortable-appearing in no acute distress speaking in complete sentences. Head: Normocephalic, atraumatic. Eye: Extraocular eye movements intact. No conjunctival injection. No scleral icterus. Ear, nose, mouth, throat: Grossly normal inspection. Normal voice, handling secretions normally. Neck: Trachea midline. No nuchal rigidity Cardiovascular: Well-perfused distal extremities. Rapid regular rate. Respiratory: Nonlabored respiration. Decreased right-sided breath sounds. Gastrointestinal: Nondistended abdomen. Soft. Nontender. No rebound. No guarding. Musculoskeletal: No significant lower extremity pitting edema. Moving all 4 extremities spontaneously. Skin: Normal for age and race, grossly normal temperature and turgor. No acute rash. Neurologic: Alert and appropriate, no apparent acute deficits. GCS 15. Related Data Home Medications Medication Instructions Recorded Confirmed cholecalciferol (vitamin D3) 25 125 mcg PO DAILY 01/05/22 05/14/25 mcg (1,000 unit) capsule guaifenesin 600 mg tablet, 600 mg PO Q12H PRN 08/22/23 05/14/25 extended release 12 hr (Mucinex) lorazepam 0.5 mg tablet 0.5 mg PO DAILY PRN anxiety #10 11/15/23 05/14/25 tabs albuterol sulfate 2.5 mg/3 mL 2.5 mg (3 mL) inhalation Q4H PRN 12/22/23 05/14/25 (0.083 %) solution for nebulization shortness of breath or wheezing #540 mL ondansetron 4 mg disintegrating 4 mg PO Q8H PRN 04/24/24 05/14/25 tablet Bacillus coagulans-inulin 1 1 cap PO DAILY 05/23/24 05/14/25 billion cell-250 mg capsule (Probiotic with Prebiotic) ipratropium bromide 0.02 % 2.5 ml inhalation Q6H PRN #62.5 mL 07/14/24 05/14/25 solution for inhalation folic acid 1 mg tablet 1 mg PO DAILY 07/21/24 05/14/25 budesonide-formoterol HFA 160 1 puff inhalation 6XD PRN wheezing 11/27/24 05/14/25 mcg-4.5 mcg/actuation aerosol #10.2 grams inhaler (Symbicort) clotrimazole 10 mg john 10 mg mucous membrane TID PRN 11/30/24 05/14/25 ipratropium 20 mcg-albuterol 100 1 puff inhalation Q6H #4 grams 01/07/25 05/14/25 mcg/actuation mist for inhalation (Combivent Respimat) celecoxib 200 mg capsule (Celebrex) 200 mg PO Q12H Pain #60 caps 01/28/25 05/14/25 albuterol sulfate 90 mcg/actuation See Rx Instructions .Route 03/20/25 05/14/25 aerosol inhaler (Ventolin HFA) .COMPLEX #18 grams albuterol sulfate 1.25 mg/3 mL 1.25 mg inhalation 3XD 03/24/25 05/14/25 solution for nebulization aluminum-mag hydroxide-simethicone 10 ml PO 4XD PRN 03/24/25 05/14/25 200 mg-200 mg-20 mg/5 mL oral susp (Antacid-Antigas) levalbuterol HCl 1.25 mg/3 mL 1.25 mg inhalation Q2H PRN PRN 03/24/25 05/14/25 solution for nebulization scopolamine base 1 mg over 3 days 1 patch transdermal Q3D PRN 03/24/25 05/14/25 transdermal patch omeprazole 20 mg capsule,delayed 20 mg PO PRN PRN 04/22/25 05/14/25 release diclofenac sodium 1 % topical gel 2 g topical QID PRN pain #100 grams 04/25/25 05/14/25 acetaminophen 500 mg tablet 1,000 mg PO TID 05/08/25 05/14/25 duloxetine 20 mg capsule,delayed 20 mg PO TID 05/08/25 05/14/25 release ibuprofen 800 mg tablet 800 mg PO TID PRN 05/08/25 05/14/25 oxycodone 5 mg tablet 5 mg PO Q4H PRN 05/08/25 05/14/25 Previous Rx's Medication Instructions Recorded lorazepam 0.5 mg tablet 0.5 mg PO DAILY PRN anxiety #10 11/15/23 tabs albuterol sulfate 2.5 mg/3 mL 2.5 mg (3 mL) inhalation Q4H PRN 12/22/23 (0.083 %) solution for nebulization shortness of breath or wheezing #540 mL ipratropium bromide 0.02 % 2.5 ml inhalation Q6H PRN #62.5 mL 07/14/24 solution for inhalation budesonide-formoterol HFA 160 1 puff inhalation 6XD PRN wheezing 11/27/24 mcg-4.5 mcg/actuation aerosol #10.2 grams inhaler (Symbicort) ipratropium 20 mcg-albuterol 100 1 puff inhalation Q6H #4 grams 01/07/25 mcg/actuation mist for inhalation (Combivent Respimat) celecoxib 200 mg capsule (Celebrex) 200 mg PO Q12H Pain #60 caps 01/28/25 albuterol sulfate 90 mcg/actuation See Rx Instructions .Route 03/20/25 aerosol inhaler (Ventolin HFA) .COMPLEX #18 grams diclofenac sodium 1 % topical gel 2 g topical QID PRN pain #100 grams 04/25/25 Allergies Allergy/AdvReac Type Severity Reaction Status Date / Time levofloxacin Allergy Unknown Other (See Verified 05/14/25 07:12 Comment) gabapentin Allergy sharp Verified 05/14/25 07:12 shooting pains pregabalin Allergy sharp Verified 05/14/25 07:12 shooting pain pseudoephedrine (From AdvReac Unknown Other (See Verified 05/14/25 07:12 Sudafed) Comment) narcotics AdvReac Unknown gi upset Uncoded 05/14/25 07:12 General WES: 3 Medical Decision Making Quality:SDOH Health Related Social Needs: Health related social needs risk of homeless food insecurity lonely/isolated Health related social needs details using community services. PFSH All Active Problems (Updated 05/14/25 @ 12:27 by Diana Yin APRN) Acute exacerbation of chronic obstructive pulmonary disease (Acute) Malnutrition (Acute) Nicotine dependence (Acute) On deep vein thrombosis (DVT) prophylaxis (Acute) Cough (Acute) Allodynia (Acute) Liver mass (Acute) Metastatic primary lung cancer (Acute) Enteritis (Acute) Lung mass (Acute) Pain (Acute) Cancer related pain (Acute) Right ear pain (Acute) Myofascial pain (Acute) Chronic pain (Chronic) Generalized weakness (Acute) Advanced care planning/counseling discussion (Acute) COPD (chronic obstructive pulmonary disease) (Chronic) Generalized pain (Acute) Non-small cell lung cancer metastatic to bone (Acute) Scoliosis (Acute) Hernia of abdominal cavity (Acute) Decreased appetite (Acute) Refractory migraine with aura (Acute) Posttraumatic stress disorder (Acute) Nausea (Acute) Asthma (Chronic) Tremor (Acute) Influenza A (Acute) Generalized hyperhidrosis (Acute) Exposure to viral hepatitis (Acute) (Suspected) Functional tremor (Acute) Vertigo (Acute) Weakness (Acute) Fibromyalgia (Acute) High risk medication use (Acute) History of tobacco abuse (Acute) High blood sugar (Acute) Pulmonary nodule (Acute) Nicotine dependence, cigarettes, uncomplicated (Acute) Mass of upper lobe of right lung (Acute) Lesion of ulnar nerve (Acute) Ovarian cyst (Acute) Fatigue (Acute) Note hx fibromyalgia on problem list Depression (Chronic) Medical History Polyneuropathy Chemotherapy induced nausea and vomiting Chronic abdominal pain Abnormal findings on diagnostic imaging of lung Tobacco dependence syndrome Left lower quadrant pain Low back pain Rheumatoid arthritis Deviated nasal septum Chronic pain syndrome Chronic pain due to malignant neoplastic disease Malignant neoplasm metastatic to bone Palliative care patient Pneumonia Advance care planning Palliative care encounter Sepsis Constipation Anxiety Metastatic primary lung cancer Chronic back pain Cervical dysplasia Surgical History H/O endoscopy Hx of colonoscopy H/O LEEP Family History Mother Cancer family history of CA Mother bladder questioning ovarian ca Uncle brain CA Grand father CA unknown origin. 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
--- NOTE | 2025-05-14 07:30 | RT.EKG_ITS ---
APPROVED REPORT Exam: Resting ECG Reason for Exam: Nausea Patient Location: E HR:118 bpm ECG Measurements Heart Rate 118 AXIS MA 171 P 87 QRSd 91 QRS 86 QT 322 T 74 QTc 452 Conclusion Sinus tachycardia...rate> 99 Right atrial enlargement...P>0.25mV 2 lds or<-0.24mV aVR/aVL No Occlusion IA
[2025-05-14 08:06] LABS: Abs Immature Grans 0.08 10^3/uL (0.0-0.06); HCT 35.4 % (36.0-46.0); HGB 11.8 g/dL (11.2-15.7); Immature Grans % 0.5 %; MCH 29.1 pg (27.0-33.0); MCHC 33.3 % (32.0-36.0); MCV 87 fL (80-95); MPV 8.1 fL (8.0-11.0); Platelet Count 644 10^3/uL (130-400); RBC 4.06 10^6/uL (3.93-5.22); RDW 14.0 % (11.7-14.6); RDW-SD 45.0 fL; WBC 16.03 10^3/uL (4.4-10.8)
[2025-05-14] MEDS: CEFEPIME 2 GM in Normal Saline 100 ML IVPB ×2 (08:15→20:31)
[2025-05-14] MEDS: MORPHine 4 MG/ML SYR IVP (08:24)
[2025-05-14] MEDS: Ondansetron 4 MG/2 ML VIAL IVP ×2 (08:25→17:10)
[2025-05-14 08:42] LABS: ALT 15 U/L (14-59); AST 18 U/L (15-37); Albumin 2.8 g/dL (3.4-5.0); Alkaline Phosphatase 92 U/L (46-116); Anion Gap 9.5 mmol/L (3-11); BUN 8 mg/dL (7-18); Bilirubin, Total 0.3 mg/dL (0.2-1.0); CO2 25.5 mmol/L (21.0-32.0); Calcium 9.0 mg/dL (8.5-10.1); Chloride 98 mmol/L (98-107); Glucose 154 mg/dL (74-106); Potassium 4.2 mmol/L (3.5-5.1); Sodium 133 mmol/L (136-145); Total Protein 7.2 g/dL (6.4-8.2); Troponin I 6 ng/L (<or=51)
[2025-05-14 08:49] LABS: RBC Morphology Normal
[2025-05-14] MEDS: Normal Saline 500 ML IV (08:55)
[2025-05-14] MEDS: VANCOMYCIN/WATER (PEG) 1 GM/200 ML BAG IVPB (08:56)
[2025-05-14 09:27] LABS: Troponin I 4 ng/L (<or=51)
[2025-05-14] MEDS: Acetaminophen 325 MG TAB 650 MG PO (09:34)
[2025-05-14] MEDS: HYDROmorphone 2 MG/ML SYR 1 MG IVP (09:35)
--- NOTE | 2025-05-14 09:35 | DI.RAD_ITS ---
Exam(s) XR CHEST 1V IN DI DEPT EXAM: XR CHEST 1V IN DI DEPT CLINICAL HISTORY: Cough. TECHNIQUE: 2D digital imaging was performed. COMPARISON: CR XR CHEST 2V PA LATERAL from 03/10/2025 FINDINGS: Single AP portable view. Heart size is normal. Left lung remains clear. On the right side the previous this neoplastic appearing large mass in the upper lobe region as further increased in size from 03/10/2025. There appears to be some associated loculated pleural fluid in this region over the right upper lobe. There is no overlying rib destruction. IMPRESSION: Further enlargement of right upper lobe neoplastic appearing mass when compared to 03/10/2025. DATA REPOSITORY: RADIATION DOSE DELIVERED:
[2025-05-14 10:01] LABS: Glucose Negative (Negative)
[2025-05-14] MEDS: Doxycycline Hyclate 100 MG CAP PO (10:29)
--- NOTE | 2025-05-14 11:26 | W.PM.HP.N ---
Date of service: 05/14/25 Time of Service: 11:26 Assessment and Plan Assessment and plan (1) Sepsis: Assessment and plan: Sepsis criteria met with tachycardia HR 120's, tachypnea RR 25-30 w WBC 16 Source most likely respiratory as per CXR MRSA PCR nares Blood cultures Cefepime and Doxycycline And as below (2) Pneumonia: Assessment and plan: XR imaging : Neoplastic appearing large mass in the upper lobe region as further increased in size from 03/10/2025. There appears to be some associated loculated pleural fluid in this region over the right upper lobe. Consider pulmonology consult and as per point 1 and 3 (3) Acute exacerbation of chronic obstructive pulmonary disease: Status: Acute Assessment and plan: History of COPD- stopped smoking < 1 year ago Increased cough and sputmum production as well as change in sputum color No additional O2 requirement Prednisone burst X5 days Antibiotics as per point 1 in the setting of known neoplasm PRN and scheduled nebs (4) Metastatic primary lung cancer: Status: Acute Assessment and plan: As per CT form 05/07- suspicion of hepatic metastasis (5) Chronic pain: Status: Chronic Assessment and plan: Ongoing home oxycodone regimen - adjust dosing PRN Hydromorphone given in the ED X1 - will hold off for now and give PRN (6) Cancer related pain: Status: Acute Assessment and plan: as above Consider palliative consultation (7) Nausea & vomiting: Status: Resolved Assessment and plan: PRN zofran (8) Malnutrition: Status: Acute Assessment and plan: Nutrition consultation (9) Cough: Status: Acute Assessment and plan: In the setting of point 2, 3 and 4 Tessalon perles Mucinex scheduled sputum Gram stain pending cough might be exacerbated in the setting of GERD - will adjust home PPI (10) Liver mass: Status: Acute Assessment and plan: As per CT from 05/07:New 2.4 cm area of decreased attenuation in the right lobe of the liver. The finding is suspicious for hepatic metastasis. MRI without and with contrast of the liver may be obtained for further characterization (11) Nicotine dependence: Status: Acute Assessment and plan: PRN NRT - stated quitting < one year ago (12) On deep vein thrombosis (DVT) prophylaxis: Status: Acute Assessment and plan: LMWH at 0.5mg/kg daily in the setting of known neoplasm and Discussed with Dr. Naik History of Present Illness History of Present Illness Chief Complaint: Shortness of breath, fever, increased cough, pain Narrative: This 59 years old female patient with past medical history of lung cancer with mets, COPD on home oxygen as needed, nicotine dependence stopping smoking less than a year ago, chronic pain, thoracic outlet syndrome, neuropathy presented to the ED today for evaluation of fever, increased cough producing increased chest pain and malaise. On arrival to the ED patient was tachycardic heart rate in the 120s without marked hypotension but SBP's in the low 100s to high 90s, respiratory rate 20 tachypnea in the 20s 30's without hypoxia . EKG showed ST HR 126 w/o signs of coronary occlusion. Workup in the ED showed leukocytosis WBC of 16 with left shift with ANC 12.73, thrombocytosis at 64, mild hyponatremia w Na 133. Chest XR showed increased in size of the right upper lobe neoplastic mass with loculated pleural effusion. Cefepime, vancomycin and doxycycline initiated in the ED. The patient was admitted to the medical surgical floor for sepsis, pneumonia. The patient reports: fever at home , ongoing pain to multiple sites( chest, back, legs), dizziness, increased productive cough with change in sputum color from clear to yellow- brownish, chronic chest pain increasing with cough, nausea vomiting w/o hematemesis, diarrhea w/o hematochezia The patient denies: hemoptysis, substernal chest pain, dysuria Full code status confirmed, and does not want flumazenil. Review of Systems All systems reviewed & are unremarkable except as noted in HPI and below PFSH All Active Problems (Updated 05/14/25 @ 12:27 by Diana Yin APRN) Acute exacerbation of chronic obstructive pulmonary disease (Acute) Malnutrition (Acute) Nicotine dependence (Acute) On deep vein thrombosis (DVT) prophylaxis (Acute) Cough (Acute) Allodynia (Acute) Liver mass (Acute) Metastatic primary lung cancer (Acute) Enteritis (Acute) Lung mass (Acute) Pain (Acute) Cancer related pain (Acute) Right ear pain (Acute) Myofascial pain (Acute) Chronic pain (Chronic) Generalized weakness (Acute) Advanced care planning/counseling discussion (Acute) COPD (chronic obstructive pulmonary disease) (Chronic) Generalized pain (Acute) Non-small cell lung cancer metastatic to bone (Acute) Scoliosis (Acute) Hernia of abdominal cavity (Acute) Decreased appetite (Acute) Refractory migraine with aura (Acute) Posttraumatic stress disorder (Acute) Nausea (Acute) Asthma (Chronic) Tremor (Acute) Influenza A (Acute) Generalized hyperhidrosis (Acute) Exposure to viral hepatitis (Acute) (Suspected) Functional tremor (Acute) Vertigo (Acute) Weakness (Acute) Fibromyalgia (Acute) High risk medication use (Acute) History of tobacco abuse (Acute) High blood sugar (Acute) Pulmonary nodule (Acute) Nicotine dependence, cigarettes, uncomplicated (Acute) Mass of upper lobe of right lung (Acute) Lesion of ulnar nerve (Acute) Ovarian cyst (Acute) Fatigue (Acute) Note hx fibromyalgia on problem list Depression (Chronic) Medical History Polyneuropathy Chemotherapy induced nausea and vomiting Chronic abdominal pain Abnormal findings on diagnostic imaging of lung Tobacco dependence syndrome Left lower quadrant pain Low back pain Rheumatoid arthritis Deviated nasal septum Chronic pain syndrome Chronic pain due to malignant neoplastic disease Malignant neoplasm metastatic to bone Palliative care patient Pneumonia Advance care planning Palliative care encounter Sepsis Constipation Anxiety Metastatic primary lung cancer Chronic back pain Cervical dysplasia Surgical History H/O endoscopy Hx of colonoscopy H/O LEEP Family History Mother Cancer family history of CA Mother bladder questioning ovarian ca Uncle brain CA Grand father CA unknown origin. 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 Do you feel safe at home: Yes Do you feel safe in your relationship?: Yes Additional Social history: 1 kid age 16 still at home Meds Allergies and Home Medications Allergies Allergy/AdvReac Type Severity Reaction Status Date / Time levofloxacin Allergy Unknown Other (See Verified 05/14/25 07:12 Comment) gabapentin Allergy sharp Verified 05/14/25 07:12 shooting pains pregabalin Allergy sharp Verified 05/14/25 07:12 shooting pain pseudoephedrine (From AdvReac Unknown Other (See Verified 05/14/25 07:12 Sudafed) Comment) narcotics AdvReac Unknown gi upset Uncoded 05/14/25 07:12 Home Medications Medication Instructions Recorded Confirmed Type cholecalciferol (vitamin D3) 25 125 mcg PO DAILY 01/05/22 05/14/25 History mcg (1,000 unit) capsule guaifenesin 600 mg tablet, 600 mg PO Q12H PRN 08/22/23 05/14/25 History extended release 12 hr (Mucinex) lorazepam 0.5 mg tablet 0.5 mg PO DAILY PRN anxiety #10 11/15/23 05/14/25 Rx tabs albuterol sulfate 2.5 mg/3 mL 2.5 mg (3 mL) inhalation Q4H PRN 12/22/23 05/14/25 Rx (0.083 %) solution for nebulization shortness of breath or wheezing #540 mL ondansetron 4 mg disintegrating 4 mg PO Q8H PRN 04/24/24 05/14/25 History tablet Bacillus coagulans-inulin 1 1 cap PO DAILY 05/23/24 05/14/25 History billion cell-250 mg capsule (Probiotic with Prebiotic) ipratropium bromide 0.02 % 2.5 ml inhalation Q6H PRN #62.5 mL 07/14/24 05/14/25 Rx solution for inhalation folic acid 1 mg tablet 1 mg PO DAILY 07/21/24 05/14/25 History budesonide-formoterol HFA 160 1 puff inhalation 6XD PRN wheezing 11/27/24 05/14/25 Rx mcg-4.5 mcg/actuation aerosol #10.2 grams inhaler (Symbicort) clotrimazole 10 mg john 10 mg mucous membrane TID PRN 11/30/24 05/14/25 History ipratropium 20 mcg-albuterol 100 1 puff inhalation Q6H #4 grams 01/07/25 05/14/25 Rx mcg/actuation mist for inhalation (Combivent Respimat) celecoxib 200 mg capsule (Celebrex) 200 mg PO Q12H Pain #60 caps 01/28/25 05/14/25 Rx albuterol sulfate 90 mcg/actuation See Rx Instructions .Route 03/20/25 05/14/25 Rx aerosol inhaler (Ventolin HFA) .COMPLEX #18 grams albuterol sulfate 1.25 mg/3 mL 1.25 mg inhalation 3XD 03/24/25 05/14/25 History solution for nebulization aluminum-mag hydroxide-simethicone 10 ml PO 4XD PRN 03/24/25 05/14/25 History 200 mg-200 mg-20 mg/5 mL oral susp (Antacid-Antigas) levalbuterol HCl 1.25 mg/3 mL 1.25 mg inhalation Q2H PRN PRN 03/24/25 05/14/25 History solution for nebulization scopolamine base 1 mg over 3 days 1 patch transdermal Q3D PRN 03/24/25 05/14/25 History transdermal patch omeprazole 20 mg capsule,delayed 20 mg PO PRN PRN 04/22/25 05/14/25 History release diclofenac sodium 1 % topical gel 2 g topical QID PRN pain #100 grams 04/25/25 05/14/25 Rx acetaminophen 500 mg tablet 1,000 mg PO TID 05/08/25 05/14/25 History duloxetine 20 mg capsule,delayed 20 mg PO TID 05/08/25 05/14/25 History release ibuprofen 800 mg tablet 800 mg PO TID PRN 05/08/25 05/14/25 History oxycodone 5 mg tablet 5 mg PO Q4H PRN 05/08/25 05/14/25 History Exam Narrative Exam Narrative: Constitutional The patient in the stretcher c/o generalized pain, stating that she was unable to sit but later sat up w/o difficulty or assistance cooperative during the interview. O2 at 2 liters via NC in progress , facial structures slightly emaciated, no JVD, non-icteric sclera , alert and oriented X4, without focal neurological deficit Speaks in full sentences, unlabored breathing, diminished right upper lobe, scattered ronchi clearing with cough with good ventilation bilaterally regular rhythm, S1, S2, ST on telemetry HR 120's no murmur, PPPX4, abdomen is not distended, soft and non tender, bowel sounds are present, negative Costovertebral angle tenderness on palpation + back tenderness to lower thoracic region , normal alignment, no skin lesions or rash Psych: RASS 1, expansive to irritable mood and labile affect. Results Labs 05/14/25 08:00 05/14/25 08:00 Labs: Laboratory Results - last 24 hr 05/14/25 05/14/25 05/14/25 08:00 08:37 09:44 WBC 16.03 H RBC 4.06 Hgb 11.8 Hct 35.4 L MCV 87 MCH 29.1 MCHC 33.3 RDW 14.0 Plt Count 644 H MPV 8.1 Immature Gran % 0.5 Neutrophils % 79.4 Lymphocytes % 8.1 Monocytes % 10.9 Eosinophils % 0.6 Basophils % 0.5 Nucleated RBC % 0.0 Absolute Neutrophils 12.73 H Absolute Lymphocytes 1.30 Absolute Monocytes 1.75 H Absolute Eosinophils 0.10 Absolute Basophils 0.08 RBC Morphology Normal VBG Lactate 0.9 Sodium 133 L Potassium 4.2 Chloride 98 Carbon Dioxide 25.5 Anion Gap 9.5 BUN 8 Creatinine 0.5 L Est GFR (CKD-EPI 2020) 107.31 Glucose 154 H Calcium 9.0 Total Bilirubin 0.3 AST 18 ALT 15 Alkaline Phosphatase 92 Troponin I 6 4 Total Protein 7.2 Albumin 2.8 L Urine Color Yellow Urine Clarity Clear Urine pH 6.0 Ur Specific Herrin 1.010 Urine Protein Negative Urine Ketones Negative Urine Blood Negative Urine Nitrite Negative Urine Bilirubin Negative Urine Urobilinogen 0.2 Ur Leukocyte Esterase Negative Urine Glucose Negative Last Vital Signs Temp 37.9 C H 05/14/25 09:16 Pulse 122 H 05/14/25 09:50 Resp 13 05/14/25 09:50 BP 117/58 L 05/14/25 09:42 Pulse Ox 95 05/14/25 09:50 Time Spent Time spent with Patient: >75 minutes Time was spent: preparing to see the patient(eg.review tests), obtaining and/or reviewing separately otained hiistory, ordering medications,tests, procedures, referring, communicating with other health foster care worker, indepentently interpreting results, counseling the patient, care coordination and other
--- NOTE | 2025-05-14 12:13 | W.PC.ACHO ---
Registration Status: ADM YAJAIRA Primary Language: Preferred Language: ED Information & Data Chief Complaint GenMedical 05/14/25 07:12 Chief Complaint GenMedical 05/14/25 07:05 Triage Note pt has increased pain all 05/14/25 07:05 over body, malaise. felt like this last week and was admitted. has pcp apt tomorrow Medical / Surgical History (Last Reviewed 04/14/25 @ 12:51 by Cortney Bernardo, RN) Thoracic outlet syndrome UTI (urinary tract infection) Enterocolitis Polyneuropathy Chemotherapy induced nausea and vomiting Chronic abdominal pain Abnormal findings on diagnostic imaging of lung Tobacco dependence syndrome Left lower quadrant pain Low back pain Rheumatoid arthritis Deviated nasal septum Chronic pain syndrome Chronic pain due to malignant neoplastic disease Malignant neoplasm metastatic to bone Palliative care patient Pneumonia Advance care planning Palliative care encounter Sepsis Constipation Anxiety Metastatic primary lung cancer Chronic back pain Cervical dysplasia (Last Reviewed 04/14/25 @ 12:51 by Cortney Bernardo, MELQUIADES) H/O endoscopy Hx of colonoscopy H/O LEEP Most Recent Vital Signs Temperature 37.9 C H 05/14/25 09:16 Temperature Source Tympanic 05/14/25 09:16 Pulse 107 H 05/14/25 11:40 Pulse 108 H 05/14/25 11:40 Respiratory Rate 18 05/14/25 11:40 Blood Pressure 107/60 05/14/25 11:31 Blood Pressure Mean 75 05/14/25 11:31 Pulse Oximetry 98 05/14/25 11:40 Pain Level 10 05/14/25 09:35 Allergies levofloxacin Allergy (Unknown, Verified 05/14/25 07:12) Other (See Comment) severe headache, muscle ache, joint pain and inflammation. even my skin hurt. gabapentin Allergy (Verified 05/14/25 07:12) sharp shooting pains pregabalin Allergy (Verified 05/14/25 07:12) sharp shooting pain pseudoephedrine (From Sudafed) Adverse Reaction (Unknown, Verified 05/14/25 07:12) Other (See Comment) narcotics Adverse Reaction (Unknown, Uncoded 05/14/25 07:12) gi upset IV IV Catheter Type [Left Saline Lock Antecubital] IV Catheter Gauge [Left 18 Antecubital] Diagnostics 05/14/25 05/14/25 05/14/25 Range/Units 11:30 09:44 08:37 WBC (4.4-10.8) 10^3/uL RBC (3.93-5.22) 10^6/uL Hgb (11.2-15.7) g/dL Hct (36.0-46.0) % MCV (80-95) fL MCH (27.0-33.0) pg MCHC (32.0-36.0) % RDW (11.7-14.6) % Plt Count (130-400) 10^3/uL MPV (8.0-11.0) fL Immature Gran % % Neutrophils % % Lymphocytes % % Monocytes % % Eosinophils % % Basophils % % Nucleated RBC % (0.0-0.3) % Absolute Neutrophils (1.2-6.7) 10^3/uL Absolute Lymphocytes (1.2-3.4) 10^3/uL Absolute Monocytes (0.1-0.8) 10^3/uL Absolute Eosinophils (0.0-0.7) 10^3/uL Absolute Basophils (0.0-0.2) 10^3/uL RBC Morphology VBG Lactate (<or=2.0) mmol/L Sodium (136-145) mmol/L Potassium (3.5-5.1) mmol/L Chloride (98-107) mmol/L Carbon Dioxide (21.0-32.0) mmol/L Anion Gap (3-11) mmol/L BUN (7-18) mg/dL Creatinine (0.55-1.02) mg/dL Est GFR (CKD-EPI 2020) (mL/min/1.73m2) Glucose (74-106) mg/dL Calcium (8.5-10.1) mg/dL Total Bilirubin (0.2-1.0) mg/dL AST (15-37) U/L ALT (14-59) U/L Alkaline Phosphatase (46-116) U/L Troponin I 4 (<or=51) ng/L Total Protein (6.4-8.2) g/dL Albumin (3.4-5.0) g/dL Urine Color Yellow (Yellow) Urine Clarity Clear (Clear) Urine pH 6.0 (5-8) Ur Specific [place] 1.010 (1.005-1.025) Urine Protein Negative (Neg-Trace) mg/dL Urine Ketones Negative (Negative) mg/dL Urine Blood Negative (Negative) Urine Nitrite Negative (Negative) Urine Bilirubin Negative (Negative) Urine Urobilinogen 0.2 (Up to 0.2) mg/dL Ur Leukocyte Esterase Negative (Negative) Urine Glucose Negative (Negative) mg/dL COVID-19 Source SARS-CoV-2 (PCR) Influenza Type A (PCR) Influenza Type B (PCR) RSV (PCR) MRSA (TEM-PCR) Pending 05/14/25 05/14/25 Range/Units 08:00 07:37 WBC 16.03 H (4.4-10.8) 10^3/uL RBC 4.06 (3.93-5.22) 10^6/uL Hgb 11.8 (11.2-15.7) g/dL Hct 35.4 L (36.0-46.0) % MCV 87 (80-95) fL MCH 29.1 (27.0-33.0) pg MCHC 33.3 (32.0-36.0) % RDW 14.0 (11.7-14.6) % Plt Count 644 H (130-400) 10^3/uL MPV 8.1 (8.0-11.0) fL Immature Gran % 0.5 % Neutrophils % 79.4 % Lymphocytes % 8.1 % Monocytes % 10.9 % Eosinophils % 0.6 % Basophils % 0.5 % Nucleated RBC % 0.0 (0.0-0.3) % Absolute Neutrophils 12.73 H (1.2-6.7) 10^3/uL Absolute Lymphocytes 1.30 (1.2-3.4) 10^3/uL Absolute Monocytes 1.75 H (0.1-0.8) 10^3/uL Absolute Eosinophils 0.10 (0.0-0.7) 10^3/uL Absolute Basophils 0.08 (0.0-0.2) 10^3/uL RBC Morphology Normal VBG Lactate 0.9 (<or=2.0) mmol/L Sodium 133 L (136-145) mmol/L Potassium 4.2 (3.5-5.1) mmol/L Chloride 98 (98-107) mmol/L Carbon Dioxide 25.5 (21.0-32.0) mmol/L Anion Gap 9.5 (3-11) mmol/L BUN 8 (7-18) mg/dL Creatinine 0.5 L (0.55-1.02) mg/dL Est GFR (CKD-EPI 2020) 107.31 (mL/min/1.73m2) Glucose 154 H (74-106) mg/dL Calcium 9.0 (8.5-10.1) mg/dL Total Bilirubin 0.3 (0.2-1.0) mg/dL AST 18 (15-37) U/L ALT 15 (14-59) U/L Alkaline Phosphatase 92 (46-116) U/L Troponin I 6 (<or=51) ng/L Total Protein 7.2 (6.4-8.2) g/dL Albumin 2.8 L (3.4-5.0) g/dL Urine Color (Yellow) Urine Clarity (Clear) Urine pH (5-8) Ur Specific [place] (1.005-1.025) Urine Protein (Neg-Trace) mg/dL Urine Ketones (Negative) mg/dL Urine Blood (Negative) Urine Nitrite (Negative) Urine Bilirubin (Negative) Urine Urobilinogen (Up to 0.2) mg/dL Ur Leukocyte Esterase (Negative) Urine Glucose (Negative) mg/dL COVID-19 Source Pending SARS-CoV-2 (PCR) Pending Influenza Type A (PCR) Pending Influenza Type B (PCR) Pending RSV (PCR) Pending MRSA (TEM-PCR) 05/14/25 08:06 Blood Culture - Pending Blood 05/14/25 08:00 Blood Culture - Pending Blood Intake and Output - 24 Hour Total 05/14/25 06:57 thru 05/14/25 10:36 Intake Total 800 Balance 800 Weight 54 kg Intake: IV 800 Falls Risk Assessment History of Falls No History 05/14/25 08:23 Contributing Factors No Factors 05/14/25 08:23 Ambulatory Aids Independent 05/14/25 08:23 Tubes/Lines None 05/14/25 08:23 Gait Evaluation No gait disturbance 05/14/25 08:23 Cognition No cognitive impairment 05/14/25 08:23 Fall Total Score 0 05/14/25 08:23 Level of Risk Standard/Low Risk 05/14/25 08:23 Problems (Last Reviewed 04/14/25 @ 12:51 by Cortney Bernardo RN) Malnutrition (Acute) Nicotine dependence (Acute) On deep vein thrombosis (DVT) prophylaxis (Acute) Cough (Acute) Liver mass (Acute) Metastatic primary lung cancer (Acute) Cancer related pain (Acute) Chronic pain (Chronic) Mass of upper lobe of right lung (Acute) v v v v v v v v v Sending and/or Receiving Nurses: Please use comment section below to note any information pertinent to the patient hand-off not included above. Information / Comments: Report received from: c/o fever, SOB, cough, HR into 130-140s, 100.2 F 107/60, RR22, increased pain upon arrival, being admitted for sepsis response and pain managemet. MELQUIADES Townsend
[2025-05-14 14:50] LABS: MRSA PCR Negative (Negative)
[2025-05-14] MEDS: Acetaminophen 500 MG TAB 1000 MG PO (15:11)
[2025-05-14] MEDS: oxyCODONE 5 MG TAB PO ×2 (15:11→20:54)
[2025-05-14] MEDS: Lactated Ringers 1,000 ML 1000 ML IV (15:19)
[2025-05-14] MEDS: Normal Saline Flush 10 ML SYR IVP ×3 (15:20→20:32)
--- NOTE | 2025-05-14 15:33 | PHA.REVIEW2 ---
Pharmacy Admission Review Admission Clinical Review Admission Pharmacy Review: Acute exacerbation of chronic obstructive pulmonary disease (Acute) Malnutrition (Acute) Nicotine dependence (Acute) On deep vein thrombosis (DVT) prophylaxis (Acute) Cough (Acute) Liver mass (Acute) Metastatic primary lung cancer (Acute) Cancer related pain (Acute) Mass of upper lobe of right lung (Acute) levofloxacin Allergy (Unknown, Verified 05/14/25 07:12) Other (See Comment) gabapentin Allergy (Verified 05/14/25 07:12) sharp shooting pains pregabalin Allergy (Verified 05/14/25 07:12) sharp shooting pain pseudoephedrine (From Sudafed) Adverse Reaction (Unknown, Verified 05/14/25 07:12) Other (See Comment) narcotics Adverse Reaction (Unknown, Uncoded 05/14/25 07:12) gi upset Resuscitation Status Full Code Height 5 ft 5 in Weight 54 kg Pharmacy Admission Review Renal Dosing Renal Dosing: BUN 8 mg/dL (7-18) 05/14/25 08:00 Creatinine 0.5 mg/dL (0.55-1.02) L 05/14/25 08:00 Medications needing adjustments: Intervened (CrCl 51 mL/min) List of meds needing interventions: Changed cefepime dose from q8h to q12h due to CrCl < 60 Anticoagulation Anticoagulation: Hgb 11.8 g/dL (11.2-15.7) 05/14/25 08:00 Hct 35.4 % (36.0-46.0) L 05/14/25 08:00 Plt Count 644 10^3/uL (130-400) H 05/14/25 08:00 Creatinine 0.5 mg/dL (0.55-1.02) L 05/14/25 08:00 DVT Prophylaxis: Intervened (initially ordered for 30mg daily but CrCl >30, reached out to provider and changed to 40mg) Medications: Enoxaparin (40mg daily) Opiate Usage Evaluate Pain Scale/Pains Meds: Reviewed (fentanyl 25mcg IVP q2h PRN, oxycodone 5mg q4h PRN - no doses given so far) Scheduled Bowel Reg ordered if on Opiates?: Yes (BID docusate) Relevant Labs Relevant Labs: Sodium 133 mmol/L (136-145) L 05/14/25 08:00 Potassium 4.2 mmol/L (3.5-5.1) 05/14/25 08:00 Chloride 98 mmol/L (98-107) 05/14/25 08:00 Electrolytes, C-Reactive P, ESR: Reviewed Cardiac Review Cardiac Review: Troponin I 4 ng/L (<or=51) 05/14/25 08:37 Blood Pressure : Heart Rate 107/60 : 123 1131 Blood Pressure : Heart Rate 98/50 : 108 1124 Blood Pressure : Heart Rate 96/63 : 127 1101 Blood Pressure : Heart Rate 106/56 : 114 1038 Blood Pressure : Heart Rate 124/63 : 115 1000 Blood Pressure : Heart Rate 117/58 : 124 0942 Blood Pressure : Heart Rate 103/43 : 109 0901 Blood Pressure : Heart Rate 101/46 : 119 0747 Blood Pressure : Heart Rate 105/57 : 122 0730 Blood Pressure : Heart Rate 116/85 : 126 0709 Blood Pressure : Heart Rate 116/85 : 126 0705 BP, HR, EF%: Reviewed (oxygen flow rate = 1) QTc Review QTc: Reviewed (452 from 05/14/25) IV to PO Switch IV Medications: Reviewed (cefepime, doxycycline, fentanyl, ketorolac and ondansetron) Home Meds Home Med List reviewed: Intervened Relevent Home Meds Not ordered & why?: albuterol HFA/nebs (PRN), clotrimazole (PRN) and ibuprofen (PRN) Changed probiotic to patients own (non-formulary). Will need to have brought in if patient wants to take while inpatient Current Meds Current Medication Order Review: Reviewed Pharmacy Antibiotic Review Relevant Labs: WBC 16.03 10^3/uL (4.4-10.8) H 05/14/25 08:00 Temperature 39 C 1511 Temperature 39 C 1430 Temperature 37.6 C 1124 Temperature 37.9 C 0916 Temperature 37.8 C 0709 Temperature 37.8 C 0709 Pharmacy Antibiotic Activity: C/S review and Renal function adjustment (changed cefepime from q8h to q12h) Comments: Patient is on cefepime and doxycycline, day 1, for pneumonia/sepsis. Blood cultures pending.
[2025-05-14] MEDS: Ketorolac 15 MG/ML VIAL IVP (17:10)
[2025-05-14] MEDS: Budesonide/Formoterol 160/4.5 6 GM 60 PUFF INH IH (17:50)
[2025-05-14] MEDS: Benzonatate 100 MG CAP PO (20:42)
[2025-05-14] MEDS: guaiFENesin 600 MG TABCR PO (20:43)
[2025-05-14] MEDS: DOXYCYCLINE 100 MG in Normal Saline 100 ML IVPB (21:19)
[2025-05-14] MEDS: ACETAMINOPHEN 1,000 MG/100 ML BAG 400 MG IVPB (22:43)
[2025-05-15] MEDS: Ketorolac 15 MG/ML VIAL IVP ×4 (01:38→19:52)
[2025-05-15] MEDS: oxyCODONE 5 MG TAB PO ×2 (05:05→10:16)
[2025-05-15 05:09] VITALS: TEMP 37.1
--- NOTE | 2025-05-15 05:43 | NUR.NOTE ---
pt refued covid test at this time.:
[2025-05-15] MEDS: Ipratropium/Albuterol 4 GM 120 PUFF INH IH ×2 (05:57→13:12)
[2025-05-15] MEDS: ACETAMINOPHEN 1,000 MG/100 ML BAG 400 MG IVPB ×3 (06:34→22:23)
[2025-05-15 06:35] LABS: HCT 34.1 % (36.0-46.0); HGB 11.1 g/dL (11.2-15.7); MCH 29.1 pg (27.0-33.0); MCV 89 fL (80-95); RBC 3.82 10^6/uL (3.93-5.22); WBC 10.82 10^3/uL (4.4-10.8)
[2025-05-15 06:36] LABS: Abs Immature Grans 0.04 10^3/uL (0.0-0.06); MCHC 32.6 % (32.0-36.0); MPV 8.3 fL (8.0-11.0); Platelet Count 619 10^3/uL (130-400); RDW 14.2 % (11.7-14.6); RDW-SD 45.9 fL
[2025-05-15 06:52] LABS: Anion Gap 8.5 mmol/L (3-11); BUN 9 mg/dL (7-18); CO2 26.5 mmol/L (21.0-32.0); Calcium 8.5 mg/dL (8.5-10.1); Chloride 100 mmol/L (98-107); Glucose 114 mg/dL (74-106); Magnesium 1.5 mg/dL (1.8-2.4); Potassium 3.6 mmol/L (3.5-5.1); Sodium 135 mmol/L (136-145)
[2025-05-15 07:34] LABS: Immature Grans % 0.0 %; RBC Morphology Normal
[2025-05-15] MEDS: Budesonide/Formoterol 160/4.5 6 GM 60 PUFF INH IH ×2 (07:42→17:24)
[2025-05-15] MEDS: CEFEPIME 2 GM in Normal Saline 100 ML IVPB ×2 (07:50→19:55)
[2025-05-15] MEDS: Folic Acid 1 MG TAB PO (08:39)
[2025-05-15] MEDS: Benzonatate 100 MG CAP PO ×2 (08:39→19:52)
[2025-05-15] MEDS: DOXYCYCLINE 100 MG in Normal Saline 100 ML IVPB ×2 (08:40→20:34)
[2025-05-15] MEDS: guaiFENesin 600 MG TABCR PO (08:41)
[2025-05-15 09:05] VITALS: BP 97/60; PULSE 107; RESP 16; TEMP 36.5; O2SAT 96
--- NOTE | 2025-05-15 09:18 | PUCON_ITS ---
General Date Of Service Date of service: 05/15/25 Time of Service: 08:30 Requesting physician: Diana Yin Reason for Consult: Pneumonia, lung cancer Recommendations: Assessment: 1. RUL Lung mass - suspect this mostly represents increased tumor burden from underlying lung cancer. She does have significant narrowing of her airways, so is at high risk for post-obstructive pneumonia. Given her leukocytosis on admission and purulent sputum production, I suspect she has an element of pneumonia. 2. Post-obstructive pneumonia - infectious workup / sputum culture is pending 3. NSCLC - stage IV - follows with pulmonology and oncology at [facility] 4. COPD exacerbation - Gold class 3E - FEV1 48% on last available spirometry from 04/2022 Recommendations: - follow up on sputum culture to help guide antibiotics. Continue cefepime and doxycycline for now. If her cultures come back negative, can streamline antibiotics to PO augmentin x 10 days - continue prednisone 40 mg daily for total of 7 days for COPD exacerbation - continue bronchodilators - pain management per primary team - her recent CT chest imaging did not show any evidence of pleural effusion or pulmonary abscess. Her CXR imaging is likely a reflection of a progressively growing lung mass. - I will sign off Discussed with Dr. Frost History of Present Illness Narrative: Patient is a 59 yo with a history of COPD, metastatic NSCLC, and chronic pain, who was admitted on 05/14 for sepsis, pneumonia, and COPD exacerbation. She is a poor historian. She reported feeling unwell for an undiscolsed amount of time. Reported having purulent sputum production . No hemoptysis. CXR on admission showed a RUL lung mass. She was started on antibiotoics and prednisone with improvement in her dyspnea and WBC. She follows with pulmonology and oncology at [facility]. Has had significant progression of her underlying NSCLC over the past year. Currently on room air. Complains of diffuse pain and a productive cough. ROS: 10 pt ROS negative except as above PFSH All Active Problems Acute exacerbation of chronic obstructive pulmonary disease (Acute) Malnutrition (Acute) Nicotine dependence (Acute) On deep vein thrombosis (DVT) prophylaxis (Acute) Cough (Acute) Allodynia (Acute) Liver mass (Acute) Metastatic primary lung cancer (Acute) Enteritis (Acute) Lung mass (Acute) Pain (Acute) Cancer related pain (Acute) Right ear pain (Acute) Myofascial pain (Acute) Chronic pain (Chronic) Generalized weakness (Acute) Advanced care planning/counseling discussion (Acute) COPD (chronic obstructive pulmonary disease) (Chronic) Generalized pain (Acute) Non-small cell lung cancer metastatic to bone (Acute) Scoliosis (Acute) Hernia of abdominal cavity (Acute) Decreased appetite (Acute) Refractory migraine with aura (Acute) Posttraumatic stress disorder (Acute) Nausea (Acute) Asthma (Chronic) Tremor (Acute) Influenza A (Acute) Generalized hyperhidrosis (Acute) Exposure to viral hepatitis (Acute) (Suspected) Functional tremor (Acute) Vertigo (Acute) Weakness (Acute) Fibromyalgia (Acute) High risk medication use (Acute) History of tobacco abuse (Acute) High blood sugar (Acute) Pulmonary nodule (Acute) Nicotine dependence, cigarettes, uncomplicated (Acute) Mass of upper lobe of right lung (Acute) Lesion of ulnar nerve (Acute) Ovarian cyst (Acute) Fatigue (Acute) Note hx fibromyalgia on problem list Depression (Chronic) Medical History Thoracic outlet syndrome UTI (urinary tract infection) Enterocolitis Polyneuropathy Chemotherapy induced nausea and vomiting Chronic abdominal pain Abnormal findings on diagnostic imaging of lung Tobacco dependence syndrome Left lower quadrant pain Low back pain Rheumatoid arthritis Deviated nasal septum Chronic pain syndrome Chronic pain due to malignant neoplastic disease Malignant neoplasm metastatic to bone Palliative care patient Pneumonia Advance care planning Palliative care encounter Sepsis Constipation Anxiety Metastatic primary lung cancer Chronic back pain Cervical dysplasia Surgical History H/O endoscopy Hx of colonoscopy H/O LEEP Family History Mother Cancer family history of CA Mother bladder questioning ovarian ca Uncle brain CA Grand father CA unknown origin. 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 Do you feel safe at home: Yes Do you feel safe in your relationship?: Yes Additional Social history: 1 kid age 16 still at home Visit Medication and Allergies Active Medications Generic Name Dose Route Start Last Admin Trade Name Freq PRN Reason Stop Dose Admin Acetaminophen 1,000 mg 05/14/25 14:12 05/14/25 15:11 Acetaminophen 500 Mg Tab PO 1,000 mg On Hold: 05/14/25 17:44 TID PRN PRN Administration Al Hydrox/Mg Hydrox/Simethicone 10 ml 05/14/25 14:12 Mylanta Suspension 30 Ml Cup PO QID PRN PRN Albuterol/Ipratropium 1 puff 05/15/25 06:00 05/15/25 05:57 Ipratropium/Albuterol 4 Gm 120 Puff Inh IH 1 puff BID@0600,1300 FARHAD Administration Benzonatate 100 mg 05/14/25 14:00 05/15/25 08:39 Benzonatate 100 Mg Cap PO 100 mg TID FARHAD Administration Budesonide/Formoterol Fumarate 2 puff 05/14/25 18:00 05/15/25 07:42 Budesonide/Formoterol 160/4.5 6 Gm 60 Puff Inh IH 2 puff BID@0800,1800 FARHAD Administration Celecoxib 200 mg 05/14/25 14:12 Celecoxib 200 Mg Cap PO On Hold: 05/14/25 14:51 Q12H PRN PRN Cholecalciferol 5,000 units 05/15/25 08:30 05/15/25 08:39 Cholecalciferol (Vitamin D3) 1,000 Unit Tab PO Not Given DAILY FARHAD Diclofenac Sodium 2 gm 05/14/25 16:00 Diclofenac 1% Gel 100 Gm Tube TP QID PRN PRN pain Docusate Sodium 100 mg 05/14/25 20:00 05/15/25 08:39 Docusate Sodium 100 Mg Cap PO Not Given BID FARHAD Duloxetine HCl 20 mg 05/14/25 14:12 05/15/25 07:20 Duloxetine 20 Mg Cap PO Not Given TID FARHAD Enoxaparin Sodium 40 mg 05/15/25 08:30 05/15/25 07:20 Enoxaparin 40 Mg/0.4 Ml Syr SC Not Given DAILY FARHAD Folic Acid 1 mg 05/15/25 08:30 05/15/25 08:39 Folic Acid 1 Mg Tab PO 1 mg DAILY FARHAD Administration Guaifenesin 600 mg 05/14/25 20:00 05/15/25 08:41 Guaifenesin 600 Mg Tabcr PO 600 mg BID FARHAD Administration Hydromorphone HCl 2 mg 05/14/25 19:18 Hydromorphone 2 Mg/Ml Syr IVP Q4H PRN PRN Cefepime HCl 2 gm/ Sodium 100 mls @ 200 mls/hr 05/14/25 20:00 05/15/25 08:39 Chloride IVPB Infused Q12H FARHAD Infusion Doxycycline Hyclate 100 mg/ 100 mls @ 100 mls/hr 05/14/25 20:00 05/15/25 08:40 Sodium Chloride IVPB 100 mls/hr Q12H FARHAD Administration IV Miscellaneous Supplies 1 each 05/14/25 14:12 Iv Access IV DIRECTED FARHAD Ipratropium [place] 0.5 mg 05/14/25 15:13 Ipratropium 0.5 Mg/2.5 Ml Upd Vial IH Q6H PRN PRN Ketorolac Tromethamine 15 mg 05/14/25 14:51 05/15/25 07:49 Ketorolac 15 Mg/Ml Vial IVP 05/19/25 14:50 15 mg Q6H PRN PRN Administration Levalbuterol HCl 1.25 mg 05/14/25 14:12 Levalbuterol 1.25 Mg/3 Ml Upd Vial IH Q2H PRN PRN Lorazepam 0.5 mg 05/14/25 15:05 Lorazepam 0.5 Mg Tab PO DAILY PRN PRN Anxiety Nicotine 14 mg 05/14/25 14:12 Nicotine 14 Mg/24 Hr Patch TD DAILY PRN PRN Omeprazole 20 mg 05/15/25 07:30 05/15/25 08:41 Omeprazole 20 Mg Capcr PO Not Given DAILY@0730 [facility] Ondansetron HCl 4 mg 05/14/25 12:44 05/14/25 17:10 Ondansetron 4 Mg/2 Ml Vial IVP 4 mg Q4H PRN PRN Administration Oxycodone HCl 5 mg 05/14/25 14:12 05/15/25 05:05 Oxycodone 5 Mg Tab PO 5 mg Q4H PRN PRN Administration Pt's Own Bacillus 1 each 05/15/25 08:30 05/15/25 08:41 Coagulans-Inulin [ PO Not Given Probiotic With DAILY FARHAD Prebiotic] Polyethylene Glycol 17 gm 05/14/25 14:12 Polyethylene Glycol 3350 17 Gm Packet PO DAILY PRN PRN Constipation Prednisone 40 mg 05/15/25 08:30 05/15/25 08:42 Prednisone 20 Mg Tab PO 05/18/25 23:59 Not Given DAILY FARHAD Scopolamine HBr 1 mg 05/14/25 14:12 Scopolamine 1 Mg/3 Days Patch TD Q72H PRN Sodium Chloride 0 ml 05/14/25 14:12 05/14/25 17:10 Normal Saline Flush 10 Ml Syr IVP 20 ml PRN PRN Administration Sodium Chloride 0 ml 05/14/25 20:00 05/14/25 20:32 Normal Saline Flush 10 Ml Syr IVP 10 ml BID FARHAD Administration Sodium Chloride 0 ml 05/14/25 14:12 Normal Saline 10 Ml Vial IJ DIRECTED PRN Allergies levofloxacin Allergy (Unknown, Verified 05/14/25 07:12) Other (See Comment) gabapentin Allergy (Verified 05/14/25 07:12) sharp shooting pains pregabalin Allergy (Verified 05/14/25 07:12) sharp shooting pain pseudoephedrine (From Sudafed) Adverse Reaction (Unknown, Verified 05/14/25 07:12) Other (See Comment) narcotics Adverse Reaction (Unknown, Uncoded 05/14/25 07:12) gi upset Exam Narrative Exam Narrative: General: alert, no acute distress Head: normocephalic ENT: no stridor, trachea midline CV: normal rate, regular rhythm Respiratory: no wheezing, no crackles, no rhonchi, no prolonged expiration GI: abd soft, non-tender, non-distended Skin: no rashes Extremities: no edema, + digital clubbing Psych: normal affect Results Last Vital Signs Temp 36.5 C 05/15/25 09:05 Pulse 107 H 05/15/25 09:05 Resp 16 05/15/25 09:05 BP 97/60 L 05/15/25 09:05 Pulse Ox 96 05/15/25 09:05 Labs 05/15/25 05:55 05/15/25 05:55 Labs: Laboratory Results - last 24 hr 05/14/25 05/14/2505/14/25 07:37 08:37 09:44 WBC RBC Hgb Hct MCV MCH MCHC RDW Plt Count MPV Immature Gran % Neutrophils % Lymphocytes % Atypical Lymphs % Monocytes % Eosinophils % Basophils % Nucleated RBC % Absolute Neutrophils Absolute Lymphocytes Absolute Monocytes Absolute Eosinophils Absolute Basophils RBC Morphology Sodium Potassium Chloride Carbon Dioxide Anion Gap BUN Creatinine Est GFR (CKD-EPI 2020) Glucose Calcium Magnesium Troponin I 4 Urine Color Yellow Urine Clarity Clear Urine pH 6.0 Ur Specific [place] 1.010 Urine Protein Negative Urine Ketones Negative Urine Blood Negative Urine Nitrite Negative Urine Bilirubin Negative Urine Urobilinogen 0.2 Ur Leukocyte Esterase Negative Urine Glucose Negative COVID-19 Source Cancelled SARS-CoV-2 (PCR) Cancelled Influenza Type A (PCR) Cancelled Influenza Type B (PCR) Cancelled RSV (PCR) Cancelled MRSA (TEM-PCR) 05/14/25 05/15/25 12:00 05:55 WBC 10.82 H RBC 3.82 L Hgb 11.1 L Hct 34.1 L MCV 89 MCH 29.1 MCHC 32.6 RDW 14.2 Plt Count 619 H MPV 8.3 Immature Gran % 0.0 Neutrophils % 65.0 Lymphocytes % 17.0 Atypical Lymphs % 0 Monocytes % 17.0 Eosinophils % 1.0 Basophils % 0.0 Nucleated RBC % 0.0 Absolute Neutrophils 7.03 H Absolute Lymphocytes 1.84 Absolute Monocytes 1.84 H Absolute Eosinophils 0.11 Absolute Basophils 0.00 RBC Morphology Normal Sodium 135 L Potassium 3.6 Chloride 100 Carbon Dioxide 26.5 Anion Gap 8.5 BUN 9 Creatinine 0.6 Est GFR (CKD-EPI 2020) 102.69 Glucose 114 H Calcium 8.5 Magnesium 1.5 L Troponin I Urine Color Urine Clarity Urine pH Ur Specific [place] Urine Protein Urine Ketones Urine Blood Urine Nitrite Urine Bilirubin Urine Urobilinogen Ur Leukocyte Esterase Urine Glucose COVID-19 Source SARS-CoV-2 (PCR) Influenza Type A (PCR) Influenza Type B (PCR) RSV (PCR) MRSA (TEM-PCR) Negative Imaging Chest x-ray: report reviewed and image reviewed CT scan - chest: report reviewed and image reviewed
--- NOTE | 2025-05-15 09:47 | W.PALLCONSUL ---
Date of service: 05/15/25 Time of Service: 09:48 History of Present Illness Narrative: Nakita Hancock is a 59-year-old woman with NSCL with bone and pulmonary mets who in October noted onset of diffuse intense pain throughout her entire body which started shortly after she was admitted for treatment of pneumonia. She has been meeting Pasquale Jaime APRN and myself form the [facility] since October 2024 for help with pain management, sorting out goals of care, extra support. PLease see previous Outpatient PC notes for more thorough She was readmitted to [facility] yesterday with continuing severe pain and found to have probable PNA with sepsis. Important to note that Nakita is someone who has been interested in alternative and nontraditional medicine but has also availed herself of allopathic medical treatments as well. She has strong opinions about her medical care. She is very engaged in decision making and reads supplemental information to help her make decisions. SHe usually rejects trying prescribed medicaitons, especially pain medications, due to either reported side effects listed in on-line resources or personal adverse effects in the past. No amount of counseling or reassurance on my part has had an impact on her impression of these side effects. REcently, [facility] has particularly been concerned about multiple medications causing her to have serotonin syndrome. Today she tells me she now realizes that her pain is caused by chronic sepsis; she is mad that this was not recognized during her 2024 admission and treated the right way (she could not tell me how chronic sepsis is treated. Also important to note that she is raising her 16-year-old daughter in addition to 2 grown children. At my last visit, she shared that she was finding it difficult to trust her medical providers. LIkewise today, she says she is mad at me as well as her PCP and oncologist and other providers, as we do not read the notes and do not tell her what is happening. Nakita has had whole body pain over the last year. It got terribly worse over the past few days, so bad that she had to come back to the hospital. PC with Holden Omalley, oncologist and Analy Tai, PCP yesterday and today: pt continues to say that she very much WANTS to have chemotherapy to prolong her life. But until her pain is properly diagnosed and treated, it would only make her pain worse, and she cannot tolerate this. Oncology reports that she insists on making appts for infusions, but then either cancels or does not come. SHe has not had any chemotherapy for at least 6 months. 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 She had some muscle injections [facility], but they werenot that helpful. Radiation is a possibility recently suggested by Dr. Hatch, but pt rejected this. WHen I asked her to explain why, she said that in January, she met with Dr. Sol, He said that tumor was too big to radiate, very likely to damage my lung and I would not be able to breathe. SHe recalls that he advised that she not have radiation therapy. I did review his note. He did say that he advised against full tumor radiation, but said that there might be a role for radiation therapy in the future. I wonder if oncology was thinking that targeted radiation might reduce pain sxs from thoracic outlet pain. Pt yells at me: YOu are not listening to me, Dr. Sol told me not to have radiation!. APparently she is iunable to hear that this is a different time and situation. #Regarding pain management: She seems to be more open to actually taking pain medications during this admission that she has been as an outpatient. I note that she has been getting scheduled Tylenol 1 g IV every 6 hours. She is also getting ketorolac 15 mg IV and is excepted 3 doses. Additionally she has requested and received at least 3 doses of oxycodone 5 mg. She does not feel that any of these are helping a lot, maybe a little . However, this is more pain medicine than we have seen her except in the past. Also note that she was taking Celexa at home. While I was in her room her son dropped off her Celexa and she plans Athar start taking this as well. I have asked her to speak with nursing and hospitalist, as I explained that this doubles the role that ketorolac has. After discussion with Nakita, she is willing to try increasing dose of oxycodone. I would increase to oxycodone 7.5 mg every 4 hours as needed. Consider scheduling at 7.5 mg 4 times daily plus every 3 hours as needed. If she is tolerating this and it seems to help, quickly go up to oxycodone 10 mg dose with the same scheduling. We will continue to monitor and could consider an extended release opiate if this is helping and tolerating it. Would continue along with some sort of NSAID (Celexa, Toradol IV works short-term but would advise against Toradol oral as an outpatient. Continue scheduled Tylenol. #Regarding goals of care, any limitations of treatment: What is upsetting her medical providers the most is that her goal (to live as long as possible to care for her children) seem to conflict with her not engaging in life-prolonging treatments such as actually having chemotherapy infusions. However patient restates today and most important thing is for her to live as long as possible to care for her children. She wants to receive any treatment that is recommended (again, often declines this treatment at the time it is supposed to be given this includes chemotherapy, medications). She says she wants to have CPR if her heart stops and wants to be on a ventilator if she has respiratory arrest. She remains a full code. #Adjustment reaction/mental health issue: According to personal report from others, patient has a long history of having alternative ideas regarding medication and medicine in general. When presented with 1 statement of fact from the Internet and several of her medical providers disagreeing with this, she will always go with what she reads on the Internet. This is lead to serious delays in potentially life saving and certainly life-prolonging treatment. It also seems to have caused a lot of distress for the patient. Patient shares today that she is estranged from all of her siblings, she has a significant history of PTSD related to adverse childhood events. However the thought she expresses and her thought processes seem more than anxiety. Some of them feel delusional to me. I wonder if she has a personality disorder or major mental health issue that contributes to the way she interacts with others and sees the world. According to her PCP as well as my discussions with Nakita, she is not interested in mental health counseling. She has been resistant to all medications proposed to help her with anxiety or depression. She finally excepted taking Cymbalta, but brand-name only, and this has been discontinued. Her PCP was able to find her 1 last bottle a few months ago but will probably not be able to have access to this going forward. I wonder if trial of a BZD would be acceptable to Nakita. She certainly seems to be in a lot of distress. #Medical provider distress: I have had several of Nakita's medical providers reach out to me upset that they are unable to get her to trial treatments which they think would greatly benefit her with small or even reasonable side effects. Worse in her case in that she is relatively young and has minor aged child. Unfortunately this is a challenging situation. Nakita has some different ways of thinking and looking at the world. However I believe she has capacity to make decisions and certainly she has a right to self-determination. We can only recommend and offer what we think is the best treatment for her, and try to keep the door open for her. We also need to restatethat one of her options is to decline life-extending treatment and concentrate on the here and now, managing sxs and caring for family while preparing for her . (She had repeatedly said she is not ready for this. Assessment and Plan Assessment and plan (1) Non-small cell lung cancer metastatic to liver: Status: Acute Assessment and plan: We will try to have member a palliative care team check in with patient and staff tomorrow regarding Kaitlins pain management. Please call us if you have questions or concerns or need us to see her sooner. (2) Acute exacerbation of chronic obstructive pulmonary disease: Status: Acute (3) Cancer related pain: Status: Acute (4) Pneumonia: Status: Acute (5) Palliative care patient: Status: Acute (6) Advance care planning: Status: Acute PFSH All Active Problems (Updated 05/15/25 @ 10:23 by Martha Porras MD) Advance care planning (Acute) Palliative care patient (Acute) Pneumonia (Acute) Non-small cell lung cancer metastatic to liver (Acute) Acute exacerbation of chronic obstructive pulmonary disease (Acute) Malnutrition (Acute) Nicotine dependence (Acute) On deep vein thrombosis (DVT) prophylaxis (Acute) Cough (Acute) Allodynia (Acute) Liver mass (Acute) Metastatic primary lung cancer (Acute) Enteritis (Acute) Lung mass (Acute) Pain (Acute) Cancer related pain (Acute) Right ear pain (Acute) Myofascial pain (Acute) Chronic pain (Chronic) Generalized weakness (Acute) Advanced care planning/counseling discussion (Acute) COPD (chronic obstructive pulmonary disease) (Chronic) Generalized pain (Acute) Non-small cell lung cancer metastatic to bone (Acute) Scoliosis (Acute) Hernia of abdominal cavity (Acute) Decreased appetite (Acute) Refractory migraine with aura (Acute) Posttraumatic stress disorder (Acute) Nausea (Acute) Asthma (Chronic) Tremor (Acute) Influenza A (Acute) Generalized hyperhidrosis (Acute) Exposure to viral hepatitis (Acute) (Suspected) Functional tremor (Acute) Vertigo (Acute) Weakness (Acute) Fibromyalgia (Acute) High risk medication use (Acute) History of tobacco abuse (Acute) High blood sugar (Acute) Pulmonary nodule (Acute) Nicotine dependence, cigarettes, uncomplicated (Acute) Mass of upper lobe of right lung (Acute) Lesion of ulnar nerve (Acute) Ovarian cyst (Acute) Fatigue (Acute) Note hx fibromyalgia on problem list Depression (Chronic) Medical History Thoracic outlet syndrome UTI (urinary tract infection) Enterocolitis Polyneuropathy Chemotherapy induced nausea and vomiting Chronic abdominal pain Abnormal findings on diagnostic imaging of lung Tobacco dependence syndrome Left lower quadrant pain Low back pain Rheumatoid arthritis Deviated nasal septum Chronic pain syndrome Chronic pain due to malignant neoplastic disease Malignant neoplasm metastatic to bone Palliative care patient Pneumonia Advance care planning Palliative care encounter Sepsis Constipation Anxiety Metastatic primary lung cancer Chronic back pain Cervical dysplasia Surgical History H/O endoscopy Hx of colonoscopy H/O LEEP Family History Mother Cancer family history of CA Mother bladder questioning ovarian ca Uncle brain CA Grand father CA unknown origin. 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 Do you feel safe at home: Yes Do you feel safe in your relationship?: Yes Additional Social history: 1 kid age 16 still at home Results Last Vital Signs Temp 36.5 C 05/15/25 09:05 Pulse 107 H 05/15/25 09:05 Resp 16 05/15/25 09:05 BP 97/60 L 05/15/25 09:05 Pulse Ox 96 05/15/25 09:05 Labs 05/15/25 05:55 05/15/25 05:55 Labs: Laboratory Results - last 24 hr 05/14/25 05/14/25 05/14/25 07:37 09:44 12:00 WBC RBC Hgb Hct MCV MCH MCHC RDW Plt Count MPV Immature Gran % Neutrophils % Lymphocytes % Atypical Lymphs % Monocytes % Eosinophils % Basophils % Nucleated RBC % Absolute Neutrophils Absolute Lymphocytes Absolute Monocytes Absolute Eosinophils Absolute Basophils RBC Morphology Sodium Potassium Chloride Carbon Dioxide Anion Gap BUN Creatinine Est GFR (CKD-EPI 2020) Glucose Calcium Magnesium Urine Color Yellow Urine Clarity Clear Urine pH 6.0 Ur Specific [place] 1.010 Urine Protein Negative Urine Ketones Negative Urine Blood Negative Urine Nitrite Negative Urine Bilirubin Negative Urine Urobilinogen 0.2 Ur Leukocyte Esterase Negative Urine Glucose Negative COVID-19 Source Cancelled SARS-CoV-2 (PCR) Cancelled Influenza Type A (PCR) Cancelled Influenza Type B (PCR) Cancelled RSV (PCR) Cancelled MRSA (TEM-PCR) Negative 05/15/25 05:55 WBC 10.82 H RBC 3.82 L Hgb 11.1 L Hct 34.1 L MCV 89 MCH 29.1 MCHC 32.6 RDW 14.2 Plt Count 619 H MPV 8.3 Immature Gran % 0.0 Neutrophils % 65.0 Lymphocytes % 17.0 Atypical Lymphs % 0 Monocytes % 17.0 Eosinophils % 1.0 Basophils % 0.0 Nucleated RBC % 0.0 Absolute Neutrophils 7.03 H Absolute Lymphocytes 1.84 Absolute Monocytes 1.84 H Absolute Eosinophils 0.11 Absolute Basophils 0.00 RBC Morphology Normal Sodium 135 L Potassium 3.6 Chloride 100 Carbon Dioxide 26.5 Anion Gap 8.5 BUN 9 Creatinine 0.6 Est GFR (CKD-EPI 2020) 102.69 Glucose 114 H Calcium 8.5 Magnesium 1.5 L Urine Color Urine Clarity Urine pH Ur Specific [place] Urine Protein Urine Ketones Urine Blood Urine Nitrite Urine Bilirubin Urine Urobilinogen Ur Leukocyte Esterase Urine Glucose COVID-19 Source SARS-CoV-2 (PCR) Influenza Type A (PCR) Influenza Type B (PCR) RSV (PCR) MRSA (TEM-PCR) Time Spent Time Spent with Patient Time Spent(min): 60
[2025-05-15] MEDS: Normal Saline Flush 10 ML SYR IVP ×5 (10:16→19:52)
[2025-05-15] MEDS: MAGNESIUM SULFATE 2 GM/50 ML BAG IV_INF (11:52)
--- NOTE | 2025-05-15 12:51 | INITIAL_ITS ---
Date of service: 05/15/25 Time of Service: 12:55 Care Management Initial Assmt Initial Assessment Reason for Hospitalization: Pain, sepsis Functional Status/Living Situation Patient Presentation: Nakita presented to the ER yesterday morning with generalized pain due to metastatic lung cancer, and with concern for sepsis. She has a history of metastatic lung cancer. Nakita was lying in bed when CM met with her today. She remembered CM from this past weekend when she was here. Nakita stated that her pain is just really terrible, all over her body. Even her skin is sore. She does have some pain in her right shoulder area up into her ear that she believes is due to her large lung tumor. Nakita is not receiving treatment at this time. She told CM that she doesn't feel strong enough to go through chemo at this time with all the pain she is feeling. She feels the chemo would make her worse off at this point. Nakita doesn't feel that she is getting all of the answers to her problems and that her pain is not being addressed the way that it should. Nakita is supported in the community through palliative care, [facility] and [facility]. 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.) Instrumental Activities of Daily Living (ADLs): Independent Activities/Hobbies/SocialSupport: likes to sew, but is unable to at this point due to pain and swelling in her hands Medications Medication Management: No Issues/Barriers identified Advance Directives Advance Directives: Do you have an Advance Directive: N , 08:39 AD On File at [facility]: N 02/27/25, 08:39 Date Asked 05/14/25 05/14/25, 07:13 AD Date Reviewed COLST On File at [facility] COLST Date Scanned Code Status Resuscitation Status Full Code Insurance Coverage/Financial Issues Insurance: [place] Care Team Visit Care Team Role Provider Type Diana Yin APRN MD [facility] STAFF PHYSICIAN Analy Tai Primary Care Provider NURSE PRACTITIONER Orly Perez RDN, [facility] Other Providers PSYCHOLOGY PROFESSOR Leo Weeks MD Other Providers [facility] STAFF PHYSICIAN Milan Acosta RDN Other Providers PSYCHOLOGY PROFESSOR Andres Vu MD Emergency Provider [facility] STAFF PHYSICIAN Dakota Naik MD Admit Provider [facility] STAFF PHYSICIAN Attending Provider Discharge Potential Discharge Needs: PCP F/U Appt and Other (oncology f/u) Anticipated Barriers to Discharge: None Identified Patient/Family Education Needs: Review discharge instructions, discuss Ask Me Three Transportation: Private vehicle Plan: Anticipate Nakita will return home once medically cleared. Her son will drive her home via private vehicle when ready. She will follow up with her PCP and her oncologist and continue per her discharge plan of care. CM will continue to follow. Social Determinants of Health Screening Social Determinants of health last assessed in clinic: 05/15/25 Will the Patient Participate in the Screening?: Yes Do you worry about having a steady place to live?: no Problems where you live: no known problems In the past 12 months, have you had to go without electric, gas, oil or water in your home?: no 1. Within the past 12 months, we worried whether our food would run out before we got money to buy more.: Don't know/refused 2. Within the past 12 months, the food we bought just didn't last and we didn't have money to get more.: Don't know/refused Has lack of transportation kept you from medical appointments or from doing things needed for daily living?: no Has anyone in your life made you feel unsafe or unsupported?: no How hard is it for you to pay for the very basics like food, housing, medical care, and heating? Would you say it is:: Somewhat hard Do you want help finding or keeping work or a job?: I do not need or want help If for any reason you need help with day-to-day activities such as bathing, preparing meals, shopping, managing finances, etc., do you get the help you need?: I don’t need any help How often do you feel lonely or isolated from those around you?: Sometimes Do you speak a language other than [place] at home?: No Health Related Social Needs Health related social needs: problems related to housing/economic circumstances (Z59.89) and feeling lonely/isolated (Z60.8) Health related social needs details: ind in room PFSH All Active Problems (Updated 05/15/25 @ 15:34 by Sandi Mireles NP) Nausea & vomiting (Acute) Hypomagnesemia (Acute) Advance care planning (Acute) Palliative care patient (Acute) Pneumonia (Acute) Non-small cell lung cancer metastatic to liver (Acute) Acute exacerbation of chronic obstructive pulmonary disease (Acute) Malnutrition (Acute) Nicotine dependence (Acute) On deep vein thrombosis (DVT) prophylaxis (Acute) Cough (Acute) Allodynia (Acute) Liver mass (Acute) Metastatic primary lung cancer (Acute) Enteritis (Acute) Lung mass (Acute) Pain (Acute) Cancer related pain (Acute) Right ear pain (Acute) Myofascial pain (Acute) Chronic pain (Chronic) Generalized weakness (Acute) Advanced care planning/counseling discussion (Acute) COPD (chronic obstructive pulmonary disease) (Chronic) Generalized pain (Acute) Non-small cell lung cancer metastatic to bone (Acute) Scoliosis (Acute) Hernia of abdominal cavity (Acute) Decreased appetite (Acute) Refractory migraine with aura (Acute) Posttraumatic stress disorder (Acute) Nausea (Acute) Asthma (Chronic) Tremor (Acute) Influenza A (Acute) Generalized hyperhidrosis (Acute) Exposure to viral hepatitis (Acute) (Suspected) Functional tremor (Acute) Vertigo (Acute) Weakness (Acute) Fibromyalgia (Acute) High risk medication use (Acute) History of tobacco abuse (Acute) High blood sugar (Acute) Pulmonary nodule (Acute) Nicotine dependence, cigarettes, uncomplicated (Acute) Mass of upper lobe of right lung (Acute) Lesion of ulnar nerve (Acute) Ovarian cyst (Acute) Fatigue (Acute) Note hx fibromyalgia on problem list Depression (Chronic) Medical History Thoracic outlet syndrome UTI (urinary tract infection) Enterocolitis Polyneuropathy Chemotherapy induced nausea and vomiting Chronic abdominal pain Abnormal findings on diagnostic imaging of lung Tobacco dependence syndrome Left lower quadrant pain Low back pain Rheumatoid arthritis Deviated nasal septum Chronic pain syndrome Chronic pain due to malignant neoplastic disease Malignant neoplasm metastatic to bone Palliative care patient Pneumonia Advance care planning Palliative care encounter Sepsis Constipation Anxiety Metastatic primary lung cancer Chronic back pain Cervical dysplasia Surgical History H/O endoscopy Hx of colonoscopy H/O LEEP Family History Mother Cancer family history of CA Mother bladder questioning ovarian ca Uncle brain CA Grand father CA unknown origin. 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 Do you feel safe at home: Yes Do you feel safe in your relationship?: Yes Additional Social history: 1 kid age 16 still at home Readmission Within the Past 30 Days Yes or No: Yes Date of First Admission Date of 1st Admission: 05/08/25 Date of this Admission Date of Admission: 05/14/25 This admission was: Through ED Office Visit Since 1st Admission Have you seen your PCP in the office since discharge?: No Date of Scheduled Appointment: 05/16/25 ED visits How many ED visits in the past 12 months: 10 Assessment for Readmission Summary of readmission circumstances, based upon interviews: Nakita does not seem to understand the gravity of her situation. Her pain is likely cancer related.
--- NOTE | 2025-05-15 13:35 | W.PM.PROGNOT ---
Date of Service Date of service: 05/15/25 Time of Service: 13:35 Assessment and Plan Assessment and plan (1) Sepsis: Assessment and plan: Sepsis criteria met with tachycardia HR 120's, tachypnea RR 25-30 w WBC 16 Source respiratory MRSA PCR nares negative Blood cultures pending but negative to date Cefepime and vancomycin for now pending final cultures (2) Pneumonia: Status: Acute Assessment and plan: XR imaging : Neoplastic appearing large mass in the upper lobe region as further increased in size from 03/10/2025. There appears to be some associated loculated pleural fluid in this region over the right upper lobe. Consider pulmonology consult Continue cefepime and vancomycin day 2 of 5 recommended (3) Acute exacerbation of chronic obstructive pulmonary disease: Status: Acute Assessment and plan: History of COPD- stopped smoking < 1 year ago Increased cough and sputmum production as well as change in sputum color No additional O2 requirement Prednisone burst recommended but patient declines Continue broad-spectrum antibiotic PRN and scheduled nebs (4) Metastatic primary lung cancer: Status: Acute Assessment and plan: As per CT form 05/07- suspicion of hepatic metastasis Palliative care consult placed (5) Chronic pain: Status: Chronic Assessment and plan: Ongoing home oxycodone regimen - adjust dosing PRN (6) Cancer related pain: Status: Acute Assessment and plan: palliative consultation (7) Nausea & vomiting: Status: Acute Assessment and plan: PRN zofran (8) Malnutrition: Status: Acute Assessment and plan: Nutrition consultation (9) Liver mass: Status: Acute Assessment and plan: As per CT from 05/07:New 2.4 cm area of decreased attenuation in the right lobe of the liver. The finding is suspicious for hepatic metastasis. MRI without and with contrast of the liver may be obtained for further characterization (10) Nicotine dependence: Status: Acute Assessment and plan: PRN NRT - stated quitting < one year ago (11) On deep vein thrombosis (DVT) prophylaxis: Status: Acute Assessment and plan: Enoxaparin daily (12) Hypomagnesemia: Status: Acute Assessment and plan: replete and follow given 2 gm IVPB discussed with DR Frost Subjective Subjective Patient reports: no new complaints, feels better and afebrile; denies shortness of breath Interval history since last seen: continue to c/o pain but states its improved since admission. no shortness of breath, continues to have moist loose cough. states she has difficulty getting comfortable in bed, using heating pad and prn medications. refusing vitals and prednisone Exam Narrative Exam Narrative: Chronically ill-appearing female older than stated age thin in no acute distress head is atraumatic eyes nonicteric noninjected oral mucosa is slightly dry neck full range of motion no JVD cardiovascular regular rhythm tachycardic in the low 100s respirations even and unlabored moist cough diminished throughout abdomen soft moves all extremities neurologic she is awake alert oriented no focal deficits psychiatric appropriately interactive Objective Last Vital Signs Temp 36.5 C 05/15/25 09:05 Pulse 107 H 05/15/25 09:05 Resp 16 05/15/25 09:05 BP 97/60 L 05/15/25 09:05 Pulse Ox 96 05/15/25 09:05 Laboratory Results - last 24 hr 05/14/25 05/14/25 05/15/25 07:37 12:00 05:55 WBC 10.82 H RBC 3.82 L Hgb 11.1 L Hct 34.1 L MCV 89 MCH 29.1 MCHC 32.6 RDW 14.2 Plt Count 619 H MPV 8.3 Immature Gran % 0.0 Neutrophils % 65.0 Lymphocytes % 17.0 Atypical Lymphs % 0 Monocytes % 17.0 Eosinophils % 1.0 Basophils % 0.0 Nucleated RBC % 0.0 Absolute Neutrophils 7.03 H Absolute Lymphocytes 1.84 Absolute Monocytes 1.84 H Absolute Eosinophils 0.11 Absolute Basophils 0.00 RBC Morphology Normal Sodium 135 L Potassium 3.6 Chloride 100 Carbon Dioxide 26.5 Anion Gap 8.5 BUN 9 Creatinine 0.6 Est GFR (CKD-EPI 2020) 102.69 Glucose 114 H Calcium 8.5 Magnesium 1.5 L COVID-19 Source Cancelled SARS-CoV-2 (PCR) Cancelled Influenza Type A (PCR) Cancelled Influenza Type B (PCR) Cancelled RSV (PCR) Cancelled MRSA (TEM-PCR) Negative Time Spent with Patient Time Spent with Patient: 35-49 minutes Time was spent: preparing to see the patient(eg.review tests), obtaining and/or reviewing separately otained hiistory, ordering medications,tests, procedures, indepentently interpreting results and counseling the patient
--- NOTE | 2025-05-15 14:15 | CHAPLAIN ---
Nakita was resting in bed when I visited. She remembered that we'd met on her last admission. Nakita was polite but was not interested in further conversation with me. She met with Dr. Porras from Palliative Care earlier in the morning.
[2025-05-15] MEDS: oxyCODONE 5 MG TAB 7.5 MG PO ×2 (16:28→20:33)
[2025-05-15 19:39] VITALS: BP 93/52; PULSE 108; RESP 16; TEMP 37; O2SAT 92
[2025-05-15] MEDS: LORazepam 0.5 MG TAB PO (20:10)
[2025-05-15 22:13] VITALS: BP 98/59; TEMP 36.8
[2025-05-16] MEDS: oxyCODONE 5 MG TAB 7.5 MG PO ×4 (00:41→12:23)
[2025-05-16] MEDS: Ketorolac 15 MG/ML VIAL IVP ×4 (03:09→22:07)
[2025-05-16 03:12] VITALS: TEMP 37.8
[2025-05-16] MEDS: ACETAMINOPHEN 1,000 MG/100 ML BAG 400 MG IVPB ×3 (05:53→22:11)
[2025-05-16 06:12] VITALS: BP 99/57; PULSE 105; RESP 18; TEMP 37; O2SAT 90
[2025-05-16 06:53] LABS: Abs Immature Grans 0.05 10^3/uL (0.0-0.06); HCT 28.2 % (36.0-46.0); HGB 9.3 g/dL (11.2-15.7); Immature Grans % 0.5 %; MCH 29.2 pg (27.0-33.0); MCHC 33.0 % (32.0-36.0); MCV 88 fL (80-95); MPV 8.4 fL (8.0-11.0); Platelet Count 516 10^3/uL (130-400); RBC 3.19 10^6/uL (3.93-5.22); RDW 13.8 % (11.7-14.6); RDW-SD 45.2 fL; WBC 10.08 10^3/uL (4.4-10.8)
[2025-05-16 06:59] LABS: ALT 10 U/L (14-59); AST 15 U/L (15-37); Albumin 2.2 g/dL (3.4-5.0); Alkaline Phosphatase 71 U/L (46-116); Anion Gap 9.5 mmol/L (3-11); BUN 5 mg/dL (7-18); Bilirubin, Total 0.3 mg/dL (0.2-1.0); CO2 25.5 mmol/L (21.0-32.0); Calcium 8.3 mg/dL (8.5-10.1); Chloride 99 mmol/L (98-107); Glucose 108 mg/dL (74-106); Magnesium 1.8 mg/dL (1.8-2.4); Potassium 3.5 mmol/L (3.5-5.1); Sodium 134 mmol/L (136-145); Total Protein 6.1 g/dL (6.4-8.2)
[2025-05-16] MEDS: Budesonide/Formoterol 160/4.5 6 GM 60 PUFF INH IH ×2 (08:28→17:45)
[2025-05-16] MEDS: CEFEPIME 2 GM in Normal Saline 100 ML IVPB ×2 (08:38→20:16)
[2025-05-16] MEDS: Normal Saline Flush 10 ML SYR IVP ×5 (08:38→20:29)
[2025-05-16] MEDS: Folic Acid 1 MG TAB PO (08:39)
[2025-05-16] MEDS: DOXYCYCLINE 100 MG in Normal Saline 100 ML IVPB ×2 (09:15→21:11)
[2025-05-16] MEDS: Ipratropium/Albuterol 4 GM 120 PUFF INH IH (12:09)
--- NOTE | 2025-05-16 13:21 | W.NUTRFU ---
Date of service: 05/16/25 Time of Service: 13:21 Nutrition Note NOTE: Visited Nakita with consult request regarding possible protein calorie malnutrition. Nakita in [facility] being treated for sepsis/pna, acut exac of COPD, metastatic lung ca. Pt manages chronic pain as well. Pt does confirm significant weight loss of at least 6 lbs over the last 6 months. After viewing weight history, appears more like a 5.7kg wt loss since 10/30/24 - a loss of 10% of her body weight. Per patient interview, po intake has been significantly decreased - pt states pain level and lack of sleep contribute to her poor appetite, as well as she mentions smells and tastes have changed recently (comments on the smell of broccoli at lunch today ruining her appetite). Labs: Hgb/Hct 9.3/28.2 today. Sodium 134 today. Bun/Cr 5/.4 today. Calicum 8.3 today and Glucose 108 fasting this morning. Total protein and albumin labs low today - had elevated CRP last November and could be reflective on inflammatory state, but could most definitely reflect lower protein intake recently as well - Nakita confirms that over the last 2 weeks intake probably less than 1000kcals per day. NFPE performed, and moderate to severe wasting noted to temporalis region, moderate depletion to buccal and orbital fat pads. Thinning, dry hair noted - pt c/o itchy scalp all over but not flaking noted (? itchiness related to ca mets to liver?). Was unable to appropriately evaluate midline of ribcage/subpraspinatus/infraspinatus/tricep areas to to pain sensitivities in patient. tenting to wrist evaluated as slightly dehydrated. moderate wasting to interosseous muscle. Clubbing and thick nails noted on fingernails (not necessarily nutrition related but could be reflective, again of mets to liver). Patient offered multiple protein/kcal ONS but declines more processed versions like Boost - was offered housemade protein smoothie with good toleration and acceptance and pt agrees to 8oz protein smoothies BID on meal trays. Estimated energy needs: 1781kcals (35kcal/kg), 61-76g protein (1.2-1.5g/kg), and ~1781mL fluid (1mL per required kcal) Nutrition Dx: Moderate Malnutrition (E44.0) related to chronic disease (lung ca mets to liver, COPD, myofacial pain) as evidenced by both documented and reported weight loss (documented wt loss of 10% body wt x 6months,), poor intake, meeting <75% of estimated energy needs (patient interview reveals <1000kcals over the last 1-2 weeks), and SQ fat and lean muscle losses as reported above. Intervention: Pt will get 2 8oz protein smoothies per day, which will contribute ~70g protein per day. Recommendation to provider - consider ordering liquid protein concentrate TID. Educated pt on kcal dense/protein dense options from menu. Will offer outpatient support after discharge if pt interested in guidance. Will monitor nutrition related labs, weight trends, po intake and acceptance/tolerance of ONS . Time Spent in Nutritional Counseling and Treatment: 25 min
--- NOTE | 2025-05-16 14:17 | W.PALPGNOTE ---
Date of service: 05/16/25 Time of Service: 14:17 Assessment and Plan Assessment and plan (1) Sepsis: Assessment and plan: Resolved, on cefepime and vancomycin (2) Pneumonia: Status: Acute Assessment and plan: XR imaging : Neoplastic appearing large mass in the upper lobe region as further increased in size from 03/10/2025. There appears to be some associated loculated pleural fluid in this region over the right upper lobe. Continue cefepime and vancomycin day 3 of 5, (3) Acute exacerbation of chronic obstructive pulmonary disease: Status: Acute Assessment and plan: History of COPD- stopped smoking < 1 year ago Increased cough and sputmum production as well as change in sputum color No additional O2 requirement Prednisone burst recommended but patient declined Continue broad-spectrum antibiotic PRN and scheduled nebs (4) Metastatic primary lung cancer: Status: Acute Assessment and plan: As per CT form 05/07- suspicion of hepatic metastasis (5) Cancer related pain: Status: Acute Assessment and plan: She does not feel her pain is controlled. Trial oxycontin 20 mg BID with PRN oxycodone for breakthrough pain. Titrate as needed. (6) Chronic pain: Status: Chronic Assessment and plan: As above. (7) Nausea & vomiting: Status: Acute Assessment and plan: PRN zofran (8) Malnutrition: Status: Acute (9) Liver mass: Status: Acute Assessment and plan: As per CT from 05/07:New 2.4 cm area of decreased attenuation in the right lobe of the liver. The finding is suspicious for hepatic metastasis. MRI without and with contrast of the liver may be obtained for further characterization (10) Nicotine dependence: Status: Acute Assessment and plan: quit < one year ago (11) Hypomagnesemia: Status: Acute Assessment and plan: replaced (12) Palliative care patient: Status: Acute Assessment and plan: Generally followed by Dr. Porras. Her pain is not well controlled. Transition to long-acting oxycodone as above with PRN oxycodone for breakthrough pain. She will f/u with Dr. Porras after discharge. (13) Advance care planning: Status: Acute Assessment and plan: As above, f/u with Dr. Porras as planned. She is a FULL CODE, this was not addressed today. Subjective Subjective Interval history since last seen: Nakita was seen for Palliative f/u. Her pain is not well controlled. She feels her pain would be controlled if she was able to forage for wild lettuce, etc. She feels her symptoms could be managed with plants from the earth. She normally would forage but she has not been able to due to pain. She is currently taking oxycodone 7.5 mg q4 hrs PRN. She has had 6 doses in the last 24hrs. Discussed options- she is not willing to try fentanyl, she fears she will not tolerate it. She has had reactions to several medications in the past and she fears fentanyl would cause reaction. She took hydromorphone in the past but she felt pins and needles all over and she does not want to try this again. Based on shared decision making, she agrees to try long acting oxycodone with PRN short-acting oxycodone. She would like to have a range for the PRN oxycodone. Exam Narrative Exam Narrative: General: chronically ill appearing, thin, middle aged female, sitting up in her hospital bed. She is awake and alert. appears uncomfortable. HEENT: normocephalic, atraumatic, EOMI, MMM, poor dentition. Neck: supple Respiratory: respirations appear unlabored, _+congested cough noted. Ext: moves all 4 extremities freely, extremities are thin Objective Last Vital Signs Temp 37.0 C 05/16/25 06:12 Pulse 105 H 05/16/25 06:12 Resp 18 05/16/25 06:12 BP 99/57 L 05/16/25 06:12 Pulse Ox 90 L 05/16/25 06:12 Laboratory Results - last 24 hr 05/16/25 06:22 WBC 10.08 RBC 3.19 L Hgb 9.3 L Hct 28.2 L MCV 88 MCH 29.2 MCHC 33.0 RDW 13.8 Plt Count 516 H MPV 8.4 Immature Gran % 0.5 Neutrophils % 64.4 Lymphocytes % 17.9 Monocytes % 14.7 Eosinophils % 1.9 Basophils % 0.6 Nucleated RBC % 0.0 Absolute Neutrophils 6.50 Absolute Lymphocytes 1.80 Absolute Monocytes 1.48 H Absolute Eosinophils 0.19 Absolute Basophils 0.06 Sodium 134 L Potassium 3.5 Chloride 99 Carbon Dioxide 25.5 Anion Gap 9.5 BUN 5 L Creatinine 0.4 L Est GFR (CKD-EPI 2020) 113.24 Glucose 108 H Calcium 8.3 L Magnesium 1.8 Total Bilirubin 0.3 AST 15 ALT 10 L Alkaline Phosphatase 71 Total Protein 6.1 L Albumin 2.2 L
--- NOTE | 2025-05-16 14:35 | W.PM.PROGNOT ---
Date of Service Date of service: 05/16/25 Time of Service: 14:35 Assessment and Plan Assessment and plan (1) Sepsis: Assessment and plan: Sepsis criteria met on admission with tachycardia HR 120's, tachypnea RR 25-30 w WBC 16, now resolved Source respiratory MRSA PCR nares negative Blood cultures pending but negative to date on day 3 cefepime and vancomycin (2) Pneumonia: Status: Acute Assessment and plan: XR imaging : Neoplastic appearing large mass in the upper lobe region as further increased in size from 03/10/2025. There appears to be some associated loculated pleural fluid in this region over the right upper lobe. Consider pulmonology consult Continue cefepime and vancomycin day 3 of 5, (3) Acute exacerbation of chronic obstructive pulmonary disease: Status: Acute Assessment and plan: History of COPD- stopped smoking < 1 year ago Increased cough and sputmum production as well as change in sputum color No additional O2 requirement Prednisone burst recommended but patient declines Continue broad-spectrum antibiotic PRN and scheduled nebs (4) Metastatic primary lung cancer: Status: Acute Assessment and plan: As per CT form 05/07- suspicion of hepatic metastasis Palliative care consult placed Pain has been poorly managed (5) Chronic pain: Status: Chronic Assessment and plan: Pain poorly managed, appreciate palliative input ongoing home oxycodone regimen - adjust dosing PRN (6) Cancer related pain: Status: Acute Assessment and plan: palliative consultation (7) Nausea & vomiting: Status: Acute Assessment and plan: PRN zofran (8) Malnutrition: Status: Acute Assessment and plan: Nutrition consultation (9) Liver mass: Status: Acute Assessment and plan: As per CT from 05/07:New 2.4 cm area of decreased attenuation in the right lobe of the liver. The finding is suspicious for hepatic metastasis. MRI without and with contrast of the liver may be obtained for further characterization (10) Nicotine dependence: Status: Acute Assessment and plan: PRN NRT - stated quitting < one year ago (11) On deep vein thrombosis (DVT) prophylaxis: Status: Acute Assessment and plan: Enoxaparin daily (12) Hypomagnesemia: Status: Acute Assessment and plan: replete and follow given 2 gm IVPB discussed with DR Frost Subjective Subjective Patient reports: still having pain and afebrile; denies shortness of breath Interval history since last seen: Continues to have loose moist cough, pain not well-controlled per patient's report. Coughing exacerbates her pain. She continues to have no oxygen requirements, has been hemodynamically stable and afebrile Exam Narrative Exam Narrative: Chronically ill-appearing female older than stated age thin in no acute distress head is atraumatic eyes nonicteric noninjected oral mucosa is slightly dry neck full range of motion no JVD cardiovascular regular rhythm tachycardic in the low 100s respirations even and unlabored moist cough diminished throughout abdomen soft moves all extremities neurologic she is awake alert oriented no focal deficits psychiatric appropriately interactive Objective Last Vital Signs Temp 37.0 C 05/16/25 06:12 Pulse 105 H 05/16/25 06:12 Resp 18 05/16/25 06:12 BP 99/57 L 05/16/25 06:12 Pulse Ox 90 L 05/16/25 06:12 Laboratory Results - last 24 hr 05/16/25 06:22 WBC 10.08 RBC 3.19 L Hgb 9.3 L Hct 28.2 L MCV 88 MCH 29.2 MCHC 33.0 RDW 13.8 Plt Count 516 H MPV 8.4 Immature Gran % 0.5 Neutrophils % 64.4 Lymphocytes % 17.9 Monocytes % 14.7 Eosinophils % 1.9 Basophils % 0.6 Nucleated RBC % 0.0 Absolute Neutrophils 6.50 Absolute Lymphocytes 1.80 Absolute Monocytes 1.48 H Absolute Eosinophils 0.19 Absolute Basophils 0.06 Sodium 134 L Potassium 3.5 Chloride 99 Carbon Dioxide 25.5 Anion Gap 9.5 BUN 5 L Creatinine 0.4 L Est GFR (CKD-EPI 2020) 113.24 Glucose 108 H Calcium 8.3 L Magnesium 1.8 Total Bilirubin 0.3 AST 15 ALT 10 L Alkaline Phosphatase 71 Total Protein 6.1 L Albumin 2.2 L Time Spent with Patient Time Spent with Patient: 35-49 minutes Time was spent: preparing to see the patient(eg.review tests), obtaining and/or reviewing separately otained hiistory, ordering medications,tests, procedures, indepentently interpreting results and counseling the patient
--- NOTE | 2025-05-16 15:23 | CMPROGNOTE_ITS ---
Date of service: 05/16/25 Time of Service: 15:23 Care Management Progress Note Progress Note Text Progress Note Text: Nakita was sitting up in bed when CM met with her today. She was very pleasant with CM. She stated that she is still in quite a bit of pain and has been taking toradol IVP every 6 hours, and does still not get much relief. Palliative care was going to meet with her and discuss some more pain management options this afternoon. Discharge Potential Discharge Needs: PCP F/U Appt and Other (oncology f/u) Anticipated Barriers to Discharge: None Identified Patient/Family Education Needs: Review discharge instructions, discuss Ask Me Three Transportation: Private vehicle Plan: Anticipate Nakita will return home once medically cleared. Her son will drive her home via private vehicle when ready. She will follow up with her PCP and her oncologist and continue per her discharge plan of care. CM will continue to follow. Social Determinants of Health Screening Social Determinants of health last assessed in clinic: 05/16/25 Will the Patient Participate in the Screening?: Yes Do you worry about having a steady place to live?: no Problems where you live: no known problems In the past 12 months, have you had to go without electric, gas, oil or water in your home?: no 1. Within the past 12 months, we worried whether our food would run out before we got money to buy more.: Don't know/refused 2. Within the past 12 months, the food we bought just didn't last and we didn't have money to get more.: Don't know/refused Has lack of transportation kept you from medical appointments or from doing things needed for daily living?: no Has anyone in your life made you feel unsafe or unsupported?: no How hard is it for you to pay for the very basics like food, housing, medical ca re, and heating? Would you say it is:: Somewhat hard Do you want help finding or keeping work or a job?: I do not need or want help If for any reason you need help with day-to-day activities such as bathing, preparing meals, shopping, managing finances, etc., do you get the help you need?: I don’t need any help How often do you feel lonely or isolated from those around you?: Sometimes Do you speak a language other than Ivorian at home?: No Health Related Social Needs Health related social needs: problems related to housing/economic circumstances (Z59.89) and feeling lonely/isolated (Z60.8) Health related social needs details: ind in room
[2025-05-16] MEDS: oxyCODONE 5 MG TAB PO ×2 (16:16→20:26)
[2025-05-16] MEDS: oxyCODONE-CR 20 MG TABCR PO (18:00)
--- NOTE | 2025-05-16 19:28 | W.PM.PROGNOT ---
Date of Service Date of service: 05/17/25 Assessment and Plan Assessment and plan (1) Moderate protein-calorie malnutrition: Status: Acute Objective Last Vital Signs Temp 37.0 C 05/16/25 06:12 Pulse 105 H 05/16/25 06:12 Resp 18 05/16/25 06:12 BP 99/57 L 05/16/25 06:12 Pulse Ox 90 L 05/16/25 06:12 Laboratory Results - last 24 hr 05/16/25 06:22 WBC 10.08 RBC 3.19 L Hgb 9.3 L Hct 28.2 L MCV 88 MCH 29.2 MCHC 33.0 RDW 13.8 Plt Count 516 H MPV 8.4 Immature Gran % 0.5 Neutrophils % 64.4 Lymphocytes % 17.9 Monocytes % 14.7 Eosinophils % 1.9 Basophils % 0.6 Nucleated RBC % 0.0 Absolute Neutrophils 6.50 Absolute Lymphocytes 1.80 Absolute Monocytes 1.48 H Absolute Eosinophils 0.19 Absolute Basophils 0.06 Sodium 134 L Potassium 3.5 Chloride 99 Carbon Dioxide 25.5 Anion Gap 9.5 BUN 5 L Creatinine 0.4 L Est GFR (CKD-EPI 2020) 113.24 Glucose 108 H Calcium 8.3 L Magnesium 1.8 Total Bilirubin 0.3 AST 15 ALT 10 L Alkaline Phosphatase 71 Total Protein 6.1 L Albumin 2.2 L
[2025-05-16] MEDS: Benzonatate 100 MG CAP PO (20:18)
[2025-05-16] MEDS: guaiFENesin 600 MG TABCR PO (20:18)
[2025-05-16] MEDS: Ondansetron 4 MG/2 ML VIAL IVP (20:27)
[2025-05-17] MEDS: oxyCODONE 5 MG TAB PO ×3 (03:27→14:57)
[2025-05-17 03:52] VITALS: BP 90/50; PULSE 99; RESP 18; TEMP 37; O2SAT 96
[2025-05-17] MEDS: Ketorolac 15 MG/ML VIAL IVP ×3 (04:05→20:03)
[2025-05-17] MEDS: ACETAMINOPHEN 1,000 MG/100 ML BAG 400 MG IVPB ×3 (05:54→22:08)
[2025-05-17] MEDS: oxyCODONE-CR 20 MG TABCR PO ×2 (05:54→17:24)
[2025-05-17] MEDS: Ipratropium/Albuterol 4 GM 120 PUFF INH IH ×2 (05:59→13:13)
[2025-05-17] MEDS: Cholecalciferol (Vitamin D3) 1,000 UNIT TAB 5000 UNITS PO (07:50)
[2025-05-17] MEDS: Folic Acid 1 MG TAB PO (07:51)
[2025-05-17] MEDS: guaiFENesin 600 MG TABCR PO ×2 (07:52→20:06)
[2025-05-17] MEDS: CEFEPIME 2 GM in Normal Saline 100 ML IVPB ×2 (07:53→20:06)
[2025-05-17] MEDS: Benzonatate 100 MG CAP PO ×3 (07:53→20:06)
[2025-05-17] MEDS: Normal Saline Flush 10 ML SYR IVP ×4 (07:56→20:18)
[2025-05-17 08:27] VITALS: BP 84/53; PULSE 80; RESP 16; TEMP 36.6; O2SAT 91
[2025-05-17] MEDS: DOXYCYCLINE 100 MG in Normal Saline 100 ML IVPB ×2 (08:57→20:57)
[2025-05-17] MEDS: Budesonide/Formoterol 160/4.5 6 GM 60 PUFF INH IH ×2 (12:12→18:04)
--- NOTE | 2025-05-17 14:06 | W.PM.PROGNOT ---
Date of Service Date of service: 05/17/25 Time of Service: 14:06 Assessment and Plan Assessment and plan (1) Sepsis: Assessment and plan: Sepsis criteria met on admission with tachycardia HR 120's, tachypnea RR 25-30 w WBC 16, now resolved Source respiratory MRSA PCR nares negative Blood cultures pending but negative to date on day 4 cefepime and vancomycin (2) Pneumonia: Status: Acute Assessment and plan: XR imaging : Neoplastic appearing large mass in the upper lobe region as further increased in size from 03/10/2025. There appears to be some associated loculated pleural fluid in this region over the right upper lobe. Consider pulmonology consult Continue cefepime and vancomycin day 4 of 5, (3) Moderate protein-calorie malnutrition: Status: Acute Assessment and plan: nutrition consultation (4) Acute exacerbation of chronic obstructive pulmonary disease: Status: Acute Assessment and plan: History of COPD- stopped smoking < 1 year ago Increased cough and sputmum production as well as change in sputum color No additional O2 requirement Prednisone burst recommended but patient declines Continue broad-spectrum antibiotic PRN and scheduled nebs (5) Metastatic primary lung cancer: Status: Acute Assessment and plan: As per CT form 05/07- suspicion of hepatic metastasis Palliative care consult placed (6) Chronic pain: Status: Chronic Assessment and plan: states she is responding to toradol, hoping for PO at discharge ongoing home oxycodone regimen - adjust dosing PRN per palliative recommendations states she has seen neurology, failed gabapentin, cymbalta, etc. (7) Cancer related pain: Status: Acute Assessment and plan: palliative consultation adjusting oxycodone (8) Nausea & vomiting: Status: Resolved Assessment and plan: PRN zofran (9) Liver mass: Status: Acute Assessment and plan: As per CT from 05/07:New 2.4 cm area of decreased attenuation in the right lobe of the liver. The finding is suspicious for hepatic metastasis. MRI without and with contrast of the liver may be obtained for further characterization (10) Nicotine dependence: Status: Acute Assessment and plan: PRN NRT - stated quitting < one year ago (11) On deep vein thrombosis (DVT) prophylaxis: Status: Acute Assessment and plan: Enoxaparin daily (12) Hypomagnesemia: Status: Acute Assessment and plan: replete and follow given 2 gm IVPB discussed with DR Raser Subjective Subjective Patient reports: still having pain, tolerating liquids well and afebrile; denies shortness of breath Exam Narrative Exam Narrative: Chronically ill-appearing female older than stated age thin in no acute distress head is atraumatic eyes nonicteric noninjected oral mucosa is slightly dry neck full range of motion no JVD cardiovascular regular rhythm tachycardic in the low 100s respirations even and unlabored moist cough diminished throughout abdomen soft moves all extremities neurologic she is awake alert oriented no focal deficits psychiatric appropriately interactive Objective Last Vital Signs Temp 36.6 C 05/17/25 08:27 Pulse 80 05/17/25 08:27 Resp 16 05/17/25 08:27 BP 84/53 L 05/17/25 08:27 Pulse Ox 91 L 05/17/25 08:27 Time Spent with Patient Time Spent with Patient: 35-49 minutes Time was spent: preparing to see the patient(eg.review tests), obtaining and/or reviewing separately otained hiistory, ordering medications,tests, procedures, indepentently interpreting results and counseling the patient
[2025-05-17 17:44] VITALS: PULSE 97
[2025-05-17] MEDS: Ipratropium 0.5 MG/2.5 ML UPD VIAL IH (17:44)
[2025-05-17] MEDS: Levalbuterol 1.25 MG/3 ML UPD VIAL IH (17:44)
[2025-05-17 17:57] VITALS: PULSE 79
[2025-05-17] MEDS: Ondansetron 4 MG/2 ML VIAL IVP (20:11)
[2025-05-18] MEDS: oxyCODONE 5 MG TAB PO ×4 (01:11→18:40)
[2025-05-18 01:12] VITALS: PULSE 99; RESP 17; TEMP 36.7; O2SAT 93
[2025-05-18] MEDS: Ketorolac 15 MG/ML VIAL IVP ×3 (03:08→15:04)
[2025-05-18] MEDS: ACETAMINOPHEN 1,000 MG/100 ML BAG 400 MG IVPB ×2 (05:36→13:46)
[2025-05-18] MEDS: oxyCODONE-CR 20 MG TABCR PO ×2 (05:40→17:14)
[2025-05-18] MEDS: Ipratropium/Albuterol 4 GM 120 PUFF INH IH ×2 (06:02→12:59)
[2025-05-18] MEDS: Budesonide/Formoterol 160/4.5 6 GM 60 PUFF INH IH ×2 (07:49→17:23)
[2025-05-18 07:50] VITALS: O2SAT 94
[2025-05-18 08:24] VITALS: BP 95/55; PULSE 110; RESP 18; TEMP 36.3; O2SAT 92
[2025-05-18] MEDS: CEFEPIME 2 GM in Normal Saline 100 ML IVPB (08:31)
[2025-05-18] MEDS: Normal Saline Flush 10 ML SYR IVP ×2 (08:31→13:46)
[2025-05-18] MEDS: Benzonatate 100 MG CAP PO ×2 (08:32→13:45)
[2025-05-18] MEDS: Cholecalciferol (Vitamin D3) 1,000 UNIT TAB 5000 UNITS PO (08:32)
[2025-05-18] MEDS: Folic Acid 1 MG TAB PO (08:33)
[2025-05-18] MEDS: guaiFENesin 600 MG TABCR PO (08:33)
[2025-05-18 09:06] VITALS: PULSE 104; O2SAT 94
[2025-05-18] MEDS: Ipratropium 0.5 MG/2.5 ML UPD VIAL IH (09:06)
[2025-05-18] MEDS: Levalbuterol 1.25 MG/3 ML UPD VIAL IH (09:06)
[2025-05-18] MEDS: DOXYCYCLINE 100 MG in Normal Saline 100 ML IVPB (09:22)
--- NOTE | 2025-05-18 14:57 | DSE_ITS ---
Date of service: 05/18/25 Time of Service: 15:39 DS: Diagnosis Discharge Diagnosis (1) Pneumonia: Status: Acute (2) Moderate protein-calorie malnutrition: Status: Acute (3) Acute exacerbation of chronic obstructive pulmonary disease: Status: Acute (4) Metastatic primary lung cancer: Status: Acute (5) Chronic pain: Status: Chronic (6) Cancer related pain: Status: Acute (7) Nausea & vomiting: Status: Resolved (8) Liver mass: Status: Acute (9) Nicotine dependence: Status: Acute (10) On deep vein thrombosis (DVT) prophylaxis: Status: Acute (11) Hypomagnesemia: Status: Acute Discharge Plan Disposition Patient Disposition: Home Condition: Fair Discharge Details Reason For Visit: Sepsis Pneumonia Admit Date/Time: 05/14/25 11:06 Admit Provider: Dakota Naik Attending Provider: Dakota Naik Primary Care Provider: Analy Tai Hospital Course Hospital Course: This 59-year-old female with a known history of metastatic non-small cell lung cancer, COPD, chronic pain syndrome, and recent smoking cessation (<1 year), presented to the ED 05/14 with fever, increased cough, worsening chest pain, malaise, and tachypnea. On arrival, she was tachycardic (HR 120s), tachypneic (RR 25–30), and afebrile with borderline systolic blood pressures in the 90s–100s but without hypoxia. Laboratory studies revealed leukocytosis (WBC 16.0) with left shift and thrombocytosis (Plt 644). Chest X-ray demonstrated an enlarging right upper lobe neoplastic mass with loculated pleural effusion. She met sepsis criteria and was started on cefepime, vancomycin, and doxycycline. MRSA PCR from nares was negative; blood cultures have remained negative to date. Pulmonology evaluated the patient and attributed findings to progressive tumor burden with post-obstructive pneumonia. No abscess or significant pleural effusion was seen on recent CT imaging. Steroid therapy for COPD exacerbation was offered but declined by the patient. Broad-spectrum antibiotics were continued with clinical improvement and downtrending WBC. Pain and symptom management were challenging, and a palliative care consultation was obtained for optimization of cancer-related pain control. Augmenting twice a day for 10 days. Oxycodone CR 20 mg twice a day (#20) to be renewed by PCP or Palliative Care. Prednisone 40 mg daily for 5 days. Smoking cessation discussion. The patient tolerated oral intake, nausea resolved, and oxygen needs returned to baseline (room air). She remained hemodynamically stable at discharge. Home Meds and New Rx's Prescriptions: New prednisone 20 mg Tablet 40 mg PO DAILY Qty: 10 0RF oxycodone [OxyContin] 20 mg Tablet,Oral Only,Ext.Rel.12 Hr 20 mg PO Q12H Qty: 20 0RF amoxicillin-pot clavulanate 875-125 mg tablet 1 tab PO BID Qty: 20 0RF Continued guaifenesin [Mucinex] 600 mg tablet extended release 12hr 600 mg PO Q12H PRN budesonide-formoterol [Symbicort] 160-4.5 mcg/actuation HFA aerosol inhaler 1 puff inhalation 6XD PRN (Reason: wheezing) Qty: 10.2 12RF Probiotic with Prebiotic 1 billion-250 cell-mg capsule 1 cap PO DAILY celecoxib [Celebrex] 200 mg capsule 200 mg PO Q12H Qty: 60 3RF Rx Instructions: Do not use with ibuprofen or alleve diclofenac sodium 1 % gel 2 g topical QID PRN (Reason: pain) Qty: 100 12RF Rx Instructions: Apply to painful areas (do not apply to same area that is currently has lidocaine patch on it) cholecalciferol (vitamin D3) 25 mcg (1,000 unit) capsule 125 mcg PO DAILY lorazepam 0.5 mg tablet 0.5 mg PO DAILY PRN (Reason: anxiety) Qty: 10 0RF Rx Instructions: Take 1/2 tablet to 1 tablet 15 minutes prior to infusion as needed albuterol sulfate 2.5 mg /3 mL (0.083 %) solution for nebulization 2.5 mg inhalation Q4H PRN (Reason: shortness of breath or wheezing) Qty: 540 5RF ondansetron 4 mg tablet,disintegrating 4 mg PO Q8H PRN Combivent Respimat 20-100 mcg/actuation mist 1 puff inhalation Q6H Qty: 4 6RF albuterol sulfate [Ventolin HFA] 90 mcg/actuation HFA aerosol inhaler See Rx Instructions .ROUTE .COMPLEX Qty: 18 10RF Dose Instruction: INHALE TWO PUFFS BY MOUTH EVERY 4 TO 6 HOURS NEEDED FOR FOR SHORTNESS OF BREATH OR WHEEZE Rx Instructions: INHALE TWO PUFFS BY MOUTH EVERY 4 TO 6 HOURS NEEDED FOR FOR SHORTNESS OF BREATH OR WHEEZE albuterol sulfate 1.25 mg/3 mL solution for nebulization 1.25 mg inhalation 3XD alum-mag hydroxide-simeth [Antacid-Antigas] 200-200-20 mg/5 mL suspension 10 ml PO 4XD PRN Rx Instructions: administer between meals and at bedtime levalbuterol HCl 1.25 mg/3 mL solution for nebulization 1.25 mg inhalation Q2H PRN PRN scopolamine base 1 mg over 3 days patch 3 day 1 patch transdermal Q3D PRN omeprazole 20 mg capsule,delayed release(DR/EC) 20 mg PO PRN PRN ipratropium bromide 0.02 % solution 2.5 ml inhalation Q6H PRNQty: 62.5 0RF Rx Instructions: This can be combined with your albuterol nebulizer solution folic acid 1 mg tablet 1 mg PO DAILY Patient Comments: TAKE ONE TABLET BY MOUTH EVERY DAY clotrimazole 10 mg john 10 mg mucous membrane TID PRN oxycodone 5 mg tablet 5 mg PO Q4H PRN Patient Comments: TAKE ONE TABLET BY MOUTH EVERY 4 HOURS NEEDED FOR PAIN acetaminophen 500 mg tablet 1,000 mg PO TID Patient Comments: TAKE TWO TABLETS BY MOUTH THREE TIMES A DAY Discontinued ibuprofen 800 mg tablet 800 mg PO TID PRN Patient Comments: TAKE ONE TABLET BY MOUTH THREE TIMES A DAY NEEDED Discharge Instructions Instructions: Chronic Obstructive Pulmonary Disease (COPD) (DC), Prednisolone (Systemic), Pneumonia, Adult (DC), Lung Cancer (DC), Amoxicillin and Clavulanate, Oxycodone Additional Instructions: Follow up with PCP and Palliative Care. Stand Alone Forms: Nursing Discharge Form Referrals: Macey Ye NP [NURSE PRACTITIONER, Medicine] Analy Tai [Primary Care Provider, Medicine] Referral Note: PCP office will give you a call to set up a follow up appointment. If you don't hear from them, please give them a call. Activity:: Activity as Tolerated Equipment/Supplies:: No Equipment Needed Diet:: As Tolerated Discharge Orders Discharge Orders: Discharge Order (Routine); Ordered 05/18/25 Ordered By: Lucrecia Serrato DS: Summary Time Spent with Patient providing and/or coordinating discharge services: Greater than 30 minutes Status at Discharge Functional status at discharge: independent ambulation Overall status at discharge: patient is back to baseline Mental Status: mental status grossly normal Speech and Movement: speech and movement normal Mood: congruent mood Affect: normal affect Quality:SDOH Health Related Social Needs: Health related social needs house/econ circumstance lo brett/isolated Health related social needs details ind in room Health related social needs details: ind in room Exam Narrative Exam Narrative: General: Chronically ill-appearing female, older than stated age, thin, in no acute distress. Head: Atraumatic. Eyes: Non-icteric, non-injected. Oral mucosa: Slightly dry. Neck: Full range of motion, no JVD. Cardiovascular: Regular rhythm, rate Respiratory: Even and unlabored respirations; moist cough; breath sounds diminished throughout. Abdomen: Soft, non-distended. Extremities: Moves all extremities spontaneously; no edema. Neurologic: Awake, alert, oriented; no focal deficits noted. Psychiatric: Appropriately interactive; mood and affect appropriate to situation. Psych Mental Status: mental status grossly normal Speech and Movement: speech and movement normal Mood: congruent mood Affect: normal affect DS: Data Vitals/I&O Vitals and I&O: Vital Signs Temperature 36.3 C L 05/18/25 08:24 Temperature Source Temporal Artery Scan 05/18/25 08:24 Pulse 104 H 05/18/25 09:06 Pulse Rhythm Regular 05/14/25 17:16 Pulse 108 H 05/14/25 11:40 Respiratory Rate 18 05/18/25 08:24 Respiratory Effort Normal, Short of Breath 05/14/25 17:16 Respiratory Depth Shallow 05/14/25 17:16 Respiratory Pattern Normal 05/14/25 17:16 Blood Pressure 95/55 L 05/18/25 08:24 Blood Pressure Mean 68 05/18/25 08:24 Pulse Oximetry 94 05/18/25 09:06 Oxygen Delivery Method Room Air 05/18/25 09:06 Oxygen Flow Rate 0 05/18/25 09:06 Pain Level 8 05/18/25 12:05 Comment refused bp d/t pain 05/18/25 01:12 EST Intake & Output 05/17/25 05/18/25 05/18/25 23:59 10:59 23:59 Intake Total 400 / 700 610 / 610 Balance 400 / 300 610 / 610 Intake: IV 400 / 700 310 / 310 Oral 300 / 300 Other: Urine Color Pale Yellow Urine Appearance Clear Urine Odor Normal Comment Pt voids an immeasurable amount ind. into commode. Data Completed and Pending Pending Labs at Discharge: 05/14/25 05/14/25 05/14/25 07:37 08:00 08:37 WBC 16.03 H RBC 4.06 Hgb 11.8 Hct 35.4 L MCV 87 MCH 29.1 MCHC 33.3 RDW 14.0 Plt Count 644 H MPV 8.1 Immature Gran % 0.5 Neutrophils % 79.4 Lymphocytes % 8.1 Atypical Lymphs % Monocytes % 10.9 Eosinophils % 0.6 Basophils % 0.5 Nucleated RBC % 0.0 Absolute Neutrophils 12.73 H Absolute Lymphocytes 1.30 Absolute Monocytes 1.75 H Absolute Eosinophils 0.10 Absolute Basophils 0.08 RBC Morphology Normal VBG Lactate 0.9 Sodium 133 L Potassium 4.2 Chloride 98 Carbon Dioxide 25.5 Anion Gap 9.5 BUN 8 Creatinine 0.5 L Est GFR (CKD-EPI 2020) 107.31 Glucose 154 H Calcium 9.0 Magnesium Total Bilirubin 0.3 AST 18 ALT 15 Alkaline Phosphatase 92 Troponin I 6 4 Total Protein 7.2 Albumin 2.8 L Urine Color Urine Clarity Urine pH Ur Specific [place] Urine Protein Urine Ketones Urine Blood Urine Nitrite Urine Bilirubin Urine Urobilinogen Ur Leukocyte Esterase Urine Glucose COVID-19 Source Cancelled SARS-CoV-2 (PCR) Cancelled Influenza Type A (PCR) Cancelled Influenza Type B (PCR) Cancelled RSV (PCR) Cancelled MRSA (TEM-PCR) 05/14/25 05/14/25 05/15/25 09:44 12:00 05:55 WBC 10.82 H RBC 3.82 L Hgb 11.1 L Hct 34.1 L MCV 89 MCH 29.1 MCHC 32.6 RDW 14.2 Plt Count 619 H MPV 8.3 Immature Gran % 0.0 Neutrophils % 65.0 Lymphocytes % 17.0 Atypical Lymphs % 0 Monocytes % 17.0 Eosinophils % 1.0 Basophils % 0.0 Nucleated RBC % 0.0 Absolute Neutrophils 7.03 H Absolute Lymphocytes 1.84 Absolute Monocytes 1.84 H Absolute Eosinophils 0.11 Absolute Basophils 0.00 RBC Morphology Normal VBG Lactate Sodium 135 L Potassium 3.6 Chloride 100 Carbon Dioxide 26.5 Anion Gap 8.5 BUN 9 Creatinine 0.6 Est GFR (CKD-EPI 2020) 102.69 Glucose 114 H Calcium 8.5 Magnesium 1.5 L Total Bilirubin AST ALT Alkaline Phosphatase Troponin I Total Protein Albumin Urine Color Yellow Urine Clarity Clear Urine pH 6.0 Ur Specific [place] 1.010 Urine Protein Negative Urine Ketones Negative Urine Blood Negative Urine Nitrite Negative Urine Bilirubin Negative Urine Urobilinogen 0.2 Ur Leukocyte Esterase Negative Urine Glucose Negative COVID-19 Source SARS-CoV-2 (PCR) Influenza Type A (PCR) Influenza Type B (PCR) RSV (PCR) MRSA (TEM-PCR) Negative 05/16/25 06:22 WBC 10.08 RBC 3.19 L Hgb 9.3 L Hct 28.2 L MCV 88 MCH 29.2 MCHC 33.0 RDW 13.8 Plt Count 516 H MPV 8.4 Immature Gran % 0.5 Neutrophils % 64.4 Lymphocytes % 17.9 Atypical Lymphs % Monocytes % 14.7 Eosinophils % 1.9 Basophils % 0.6 Nucleated RBC % 0.0 Absolute Neutrophils 6.50 Absolute Lymphocytes 1.80 Absolute Monocytes 1.48 H Absolute Eosinophils 0.19 Absolute Basophils 0.06 RBC Morphology VBG Lactate Sodium 134 L Potassium 3.5 Chloride 99 Carbon Dioxide 25.5 Anion Gap 9.5 BUN 5 L Creatinine 0.4 L Est GFR (CKD-EPI 2020) 113.24 Glucose 108 H Calcium 8.3 L Magnesium 1.8 Total Bilirubin 0.3 AST 15 ALT 10 L Alkaline Phosphatase 71 Troponin I Total Protein 6.1 L Albumin 2.2 L Urine Color Urine Clarity Urine pH Ur Specific [place] Urine Protein Urine Ketones Urine Blood Urine Nitrite Urine Bilirubin Urine Urobilinogen Ur Leukocyte Esterase Urine Glucose COVID-19 Source SARS-CoV-2 (PCR) Influenza Type A (PCR) Influenza Type B (PCR) RSV (PCR) MRSA (TEM-PCR) Preliminary micro results at discharge 05/14/25 08:06 Blood Blood Culture - Preliminary NO GROWTH 96 HOURS 05/14/25 08:00 Blood Blood Culture - Preliminary NO GROWTH 96 HOURS PFSH All Active Problems (Updated 05/18/25 @ 14:57 by Lucrecia Serrato NP) Moderate protein-calorie malnutrition (Acute) Hypomagnesemia (Acute) Advance care planning (Acute) Palliative care patient (Acute) Pneumonia (Acute) Non-small cell lung cancer metastatic to liver (Acute) Acute exacerbation of chronic obstructive pulmonary disease (Acute) Malnutrition (Acute) Nicotine dependence (Acute) On deep vein thrombosis (DVT) prophylaxis (Acute) Cough (Acute) Allodynia (Acute) Liver mass (Acute) Metastatic primary lung cancer (Acute) Enteritis (Acute) Lung mass (Acute) Pain (Acute) Cancer related pain (Acute) Right ear pain (Acute) Myofascial pain (Acute) Chronic pain (Chronic) Generalized weakness (Acute) Advanced care planning/counseling discussion (Acute) COPD (chronic obstructive pulmonary disease) (Chronic) Generalized pain (Acute) Non-small cell lung cancer metastatic to bone (Acute) Scoliosis (Acute) Hernia of abdominal cavity (Acute) Decreased appetite (Acute) Refractory migraine with aura (Acute) Posttraumatic stress disorder (Acute) Nausea (Acute) Asthma (Chronic) Tremor (Acute) Influenza A (Acute) Generalized hyperhidrosis (Acute) Exposure to viral hepatitis (Acute) (Suspected) Functional tremor (Acute) Vertigo (Acute) Weakness (Acute) Fibromyalgia (Acute) High risk medication use (Acute) History of tobacco abuse (Acute) High blood sugar (Acute) Pulmonary nodule (Acute) Nicotine dependence, cigarettes, uncomplicated (Acute) Mass of upper lobe of right lung (Acute) Lesion of ulnar nerve (Acute) Ovarian cyst (Acute) Fatigue (Acute) Note hx fibromyalgia on problem list Depression (Chronic) Medical History Thoracic outlet syndrome UTI (urinary tract infection) Enterocolitis Polyneuropathy Chemotherapy induced nausea and vomiting Chronic abdominal pain Abnormal findings on diagnostic imaging of lung Tobacco dependence syndrome Left lower quadrant pain Low back pain Rheumatoid arthritis Deviated nasal septum Chronic pain syndrome Chronic pain due to malignant neoplastic disease Malignant neoplasm metastatic to bone Palliative care patient Pneumonia Advance care planning Palliative care encounter Sepsis Constipation Anxiety Metastatic primary lung cancer Chronic back pain Cervical dysplasia Surgical History H/O endoscopy Hx of colonoscopy H/O LEEP Family History Mother Cancer family history of CA Mother bladder questioning ovarian ca Uncle brain CA Grand father CA unknown origin. 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
== END 2025-05-18 18:45 | disposition home or self-care (01) ==
LOC: ER 10:26 → MS 13:17
PROVIDERS: Nurse Practitioner Acute Care; Admitting Provider Family Medicine; Emergency Provider Emergency Medicine; PCP Nurse Practitioner Family; Responsible Provider Nurse Practitioner Family; Visit Provider Family Medicine
DX: A41.9 Sepsis, unspecified organism (principal); J18.9 Pneumonia, unspecified organism; J44.0 Chronic obstructive pulmonary disease with (acute) lower respiratory infection; J44.1 Chronic obstructive pulmonary disease with (acute) exacerbation; G89.3 Neoplasm related pain (acute) (chronic); E44.0 Moderate protein-calorie malnutrition; R11.2 Nausea with vomiting, unspecified; Z68.1 Body mass index [BMI] 19.9 or less, adult; R05.9 Cough, unspecified; E83.42 Hypomagnesemia; C34.11 Malignant neoplasm of upper lobe, right bronchus or lung; R53.1 Weakness; C79.51 Secondary malignant neoplasm of bone; G25.0 Essential tremor; F32.A Depression, unspecified; F43.10 Post-traumatic stress disorder, unspecified; R73.9 Hyperglycemia, unspecified; Z87.891 Personal history of nicotine dependence; Z79.899 Other long term (current) drug therapy; R16.0 Hepatomegaly, not elsewhere classified; J90 Pleural effusion, not elsewhere classified; D72.829 Elevated white blood cell count, unspecified; D75.839 Thrombocytosis, unspecified
CPT/HCPCS: 00123; 36415; 80048; 80053; 87040; 87637; 87641; 93005; 94640; 96365; 96366; 96367; 96375; 99222; 99285; J1650; 71045; 81003; 83605; 83735; 84484; 85025; 87070; 87205; 93010; 94664; 94760; 99223; 99232; 99239; J0131; J0692; J1171; J1885; J2270; J2405; J3373; J3475; J3490; J7614; J7644

== ENCOUNTER 2025-05-25 01:11 | Observation (INO) | payer MEDICAID, SELFPAY ==
[2025-05-25] VITALS (35 sets, daily range): BP systolic 94–112; BP diastolic 51–72; PULSE 100–160; RESP 16–32; TEMP 36.8–39.6; O2SAT 88–99
--- NOTE | 2025-05-25 01:00 | RT.EKG_ITS ---
APPROVED REPORT Exam: Resting ECG Reason for Exam: chest discomfort Patient Location: E HR:131 bpm ECG Measurements Heart Rate 131 AXIS AK 122 P 61 QRSd 84 QRS 48 QT 296 T 45 QTc 438 Conclusion Sinus tachycardia...rate> 99 Low voltage, extremity leads...all extremity leads <0.5mV Physician: no stemi
[2025-05-25 01:19] LABS: Abs Immature Grans 0.05 10^3/uL (0.0-0.06); BE (Venous) 5 mmol/L (-2-3); HCO3 (Venous) 30 mmol/L (23-28); HCT 32.9 % (36.0-46.0); HGB 10.6 g/dL (11.2-15.7); Immature Grans % 0.4 %; MCH 28.3 pg (27.0-33.0); MCHC 32.2 % (32.0-36.0); MCV 88 fL (80-95); MPV 8.1 fL (8.0-11.0); O2 Sat (Venous) 40 %; RBC 3.74 10^6/uL (3.93-5.22); RDW 14.0 % (11.7-14.6); RDW-SD 45.2 fL; TCO2 (Venous) 29 mmol/L (24-29); WBC 13.76 10^3/uL (4.4-10.8); pCO2 (Venous) 52 mmHg (41-51); pO2 (Venous) 25 mmHg
--- NOTE | 2025-05-25 01:32 | W.ED.GENAD ---
Discharge Plan Disposition Patient Disposition: [facility] Condition: Improving Discharge Details Clinical Impression: Sepsis, Acute dehydration, Diarrhea Primary Care Provider: Analy Tai ED Provider: Omi Foley Home Meds and New Rx's Prescriptions: No Action guaifenesin [Mucinex] 600 mg tablet extended release 12hr 600 mg PO Q12H PRN budesonide-formoterol [Symbicort] 160-4.5 mcg/actuation HFA aerosol inhaler 1 puff inhalation 6XD PRN (Reason: wheezing) Qty: 10.2 12RF Probiotic with Prebiotic 1 billion-250 cell-mg capsule 1 cap PO DAILY celecoxib [Celebrex] 200 mg capsule 200 mg PO Q12H Qty: 60 3RF Rx Instructions: Do not use with ibuprofen or alleve diclofenac sodium 1 % gel 2 g topical QID PRN (Reason: pain) Qty: 100 12RF Rx Instructions: Apply to painful areas (do not apply to same area that is currently has lidocaine patch on it) cholecalciferol (vitamin D3) 25 mcg (1,000 unit) capsule 125 mcg PO DAILY lorazepam 0.5 mg tablet 0.5 mg PO DAILY PRN (Reason: anxiety) Qty: 10 0RF Rx Instructions: Take 1/2 tablet to 1 tablet 15 minutes prior to infusion as needed albuterol sulfate 2.5 mg /3 mL (0.083 %) solution for nebulization 2.5 mg inhalation Q4H PRN (Reason: shortness of breath or wheezing) Qty: 540 5RF ondansetron 4 mg tablet,disintegrating 4 mg PO Q8H PRN Combivent Respimat 20-100 mcg/actuation mist 1 puff inhalation Q6H Qty: 4 6RF albuterol sulfate [Ventolin HFA] 90 mcg/actuation HFA aerosol inhaler See Rx Instructions .ROUTE .COMPLEX Qty: 18 10RF Dose Instruction: INHALE TWO PUFFS BY MOUTH EVERY 4 TO 6 HOURS NEEDED FOR FOR SHORTNESS OF BREATH OR WHEEZE Rx Instructions: INHALE TWO PUFFS BY MOUTH EVERY 4 TO 6 HOURS NEEDED FOR FOR SHORTNESS OF BREATH OR WHEEZE albuterol sulfate 1.25 mg/3 mL solution for nebulization 1.25 mg inhalation 3XD alum-mag hydroxide-simeth [Antacid-Antigas] 200-200-20 mg/5 mL suspension 10 ml PO 4XD PRN Rx Instructions: administer between meals and at bedtime levalbuterol HCl 1.25 mg/3 mL solution for nebulization 1.25 mg inhalation Q2H PRN PRN scopolamine base 1 mg over 3 days patch 3 day 1 patch transdermal Q3D PRN omeprazole 20 mg capsule,delayed release(DR/EC) 20 mg PO PRN PRN ketorolac 10 mg tablet 10 mg PO Q6H Qty: 16 0RF naloxone [Narcan] 4 mg/actuation spray,non-aerosol 4 mg INTRANASAL PRN Patient Comments: SPRAY 4 MG (CONTENTS OF 1 NASAL SPRAY) A SINGLE DOSE IN ONE NOSTRIL; MAY REPEAT EVERY 2 TO 3 MINUTES IN ALTERNATING NOSTRILS UNTIL MEDICA ipratropium bromide 0.02 % solution 2.5 ml inhalation Q6H PRNQty: 62.5 0RF Rx Instructions: This can be combined with your albuterol nebulizer solution folic acid 1 mg tablet 1 mg PO DAILY Patient Comments: TAKE ONE TABLET BY MOUTH EVERY DAY clotrimazole 10 mg john 10 mg mucous membrane TID PRN oxycodone 5 mg tablet 5 mg PO Q4H PRN Patient Comments: TAKE ONE TABLET BY MOUTH EVERY 4 HOURS NEEDED FOR PAIN acetaminophen 500 mg tablet 1,000 mg PO TID Patient Comments: TAKE TWO TABLETS BY MOUTH THREE TIMES A DAY prednisone 20 mg Tablet 40 mg PO DAILY Qty: 10 0RF oxycodone [OxyContin] 20 mg Tablet,Oral Only,Ext.Rel.12 Hr 20 mg PO Q12H Qty: 20 0RF amoxicillin-pot clavulanate 875-125 mg tablet 1 tab PO BID Qty: 20 0RF HPI General Date/Time Provider Initiated Documentation: 05/25/25 01:32. HPI Narrative: 59-year-old female with past medical history of metastatic non-small cell lung cancer, COPD, chronic pain syndrome/fibromyalgia, presents today for evaluation of vomiting chest pain cough chills. Patient was recently admitted to an [facility] for pneumonia and sepsis. She was discharged after notable improvement on antibiotics on 05/18/2025, she was started on Augmentin, prednisone and oxycodone for outpatient treatment. Blood cultures were negative at the time of discharge. At home for the past week she states that she is continued to have her cough which she feels has been starting to get worse over the last 2 to 3 days. She also has some chest pain which she describes as mild and achy. She has systemic aches throughout her body for the last few days. She also admits to vomiting a few times tonight and intermittently over the last few days. She denies any significant blood in her vomit or stool. She denies any other complaints at this time. She states she has been taking her medications as prescribed. No other modifying factors. Related Data Home Medications Medication Instructions Recorded Confirmed cholecalciferol (vitamin D3) 25 125 mcg PO DAILY 01/05/22 05/25/25 mcg (1,000 unit) capsule guaifenesin 600 mg tablet, 600 mg PO Q12H PRN 08/22/23 05/25/25 extended release 12 hr (Mucinex) Held on 05/25/25. Instructions: Pt Stopped/Never Started lorazepam 0.5 mg tablet 0.5 mg PO DAILY PRN anxiety #10 11/15/23 05/25/25 Held on 05/25/25. tabs Instructions: Prescription Finished albuterol sulfate 2.5 mg/3 mL 2.5 mg (3 mL) inhalation Q4H PRN 12/22/23 05/25/25 (0.083 %) solution for nebulization shortness of breath or wheezing #540 mL ondansetron 4 mg disintegrating 4 mg PO Q8H PRN 04/24/24 05/25/25 tablet Bacillus coagulans-inulin 1 1 cap PO DAILY 05/23/24 05/25/25 billion cell-250 mg capsule (Probiotic with Prebiotic) ipratropium bromide 0.02 % 2.5 ml inhalation Q6H PRN #62.5 mL 07/14/24 05/25/25 solution for inhalation Held on 05/25/25. Instructions: Pt Stopped/Never Started folic acid 1 mg tablet 1 mg PO DAILY 07/21/24 05/25/25 Held on 05/25/25. Instructions: Prescription Finished budesonide-formoterol HFA 160 1 puff inhalation 6XD PRN wheezing 11/27/24 05/25/25 mcg-4.5 mcg/actuation aerosol #10.2 grams inhaler (Symbicort) clotrimazole 10 mg john 10 mg mucous membrane TID PRN 11/30/24 05/14/25 ipratropium 20 mcg-albuterol 100 1 puff inhalation Q6H #4 grams 01/07/25 05/25/25 mcg/actuation mist for inhalation (Combivent Respimat) celecoxib 200 mg capsule (Celebrex) 200 mg PO Q12H Pain #60 caps 01/28/25 05/25/25 Held on 05/23/25. Instructions: Changed by Provider albuterol sulfate 90 mcg/actuation See Rx Instructions .Route 03/20/25 05/25/25 aerosol inhaler (Ventolin HFA) .COMPLEX #18 grams albuterol sulfate 1.25 mg/3 mL 1.25 mg inhalation 3XD 03/24/25 05/25/25 solution for nebulization aluminum-mag hydroxide-simethicone 10 ml PO 4XD PRN 03/24/25 05/25/25 200 mg-200 mg-20 mg/5 mL oral susp (Antacid-Antigas) levalbuterol HCl 1.25 mg/3 mL 1.25 mg inhalation Q2H PRN PRN 03/24/25 05/25/25 solution for nebulization Held on 05/25/25. Instructions: Pt Stopped/Never Started scopolamine base 1 mg over 3 days 1 patch transdermal Q3D PRN 03/24/25 05/25/25 transdermal patch Held on 05/25/25. Instructions: Prescription Finished omeprazole 20 mg capsule,delayed 20 mg PO PRN PRN 04/22/25 05/25/25 release diclofenac sodium 1 % topical gel 2 g topical QID PRN pain #100 grams 04/25/25 05/25/25 acetaminophen 500 mg tablet 1,000 mg PO TID 05/08/25 05/25/25 oxycodone 5 mg tablet 5 mg PO Q4H PRN 05/08/25 05/14/25 amoxicillin 875 mg-potassium 1 tab PO BID #20 tabs 05/18/25 05/25/25 clavulanate 125 mg tablet oxycodone 20 mg tablet,crush 20 mg PO Q12H #20 tabs 05/18/25 05/25/25 resistant,extended release 12 hr (OxyContin) prednisone 20 mg tablet 40 mg (2 x 20 mg) PO DAILY #10 tabs 05/18/25 05/25/25 Held on 05/25/25. Instructions: Prescription Finished ketorolac 10 mg tablet 10 mg PO Q6H #16 tabs 05/23/25 05/25/25 naloxone 4 mg/actuation nasal 4 mg intranasal PRN 05/25/25 spray (Narcan) Previous Rx's Medication Instructions Recorded lorazepam 0.5 mg tablet 0.5 mg PO DAILY PRN anxiety #10 11/15/23 Held on 05/25/25. tabs Instructions: Prescription Finished albuterol sulfate 2.5 mg/3 mL 2.5 mg (3 mL) inhalation Q4H PRN 12/22/23 (0.083 %) solution for nebulization shortness of breath or wheezing #540 mL ipratropium bromide 0.02 % 2.5 ml inhalation Q6H PRN #62.5 mL 07/14/24 solution for inhalation Held on 05/25/25. Instructions: Pt Stopped/Never Started budesonide-formoterol HFA 160 1 puff inhalation 6XD PRN wheezing 11/27/24 mcg-4.5 mcg/actuation aerosol #10.2 grams inhaler (Symbicort) ipratropium 20 mcg-albuterol 100 1 puff inhalation Q6H #4 grams 01/07/25 mcg/actuation mist for inhalation (Combivent Respimat) celecoxib 200 mg capsule (Celebrex) 200 mg PO Q12H Pain #60 caps 01/28/25 Held on 05/23/25. Instructions: Changed by Provider albuterol sulfate 90 mcg/actuation See Rx Instructions .Route 03/20/25 aerosol inhaler (Ventolin HFA) .COMPLEX #18 grams diclofenac sodium 1 % topical gel 2 g topical QID PRN pain #100 grams 04/25/25 amoxicillin 875 mg-potassium 1 tab PO BID #20 tabs 05/18/25 clavulanate 125 mg tablet oxycodone 20 mg tablet,crush 20 mg PO Q12H #20 tabs 05/18/25 resistant,extended release 12 hr (OxyContin) prednisone 20 mg tablet 40 mg (2 x 20 mg) PO DAILY #10 tabs 05/18/25 Held on 05/25/25. Instructions: Prescription Finished ketorolac 10 mg tablet 10 mg PO Q6H #16 tabs 05/23/25 Allergies Allergy/AdvReac Type Severity Reaction Status Date / Time levofloxacin Allergy Unknown Other (See Verified 05/14/25 07:12 Comment) gabapentin Allergy sharp Verified 05/14/25 07:12 shooting pains pregabalin Allergy sharp Verified 05/14/25 07:12 shooting pain pseudoephedrine (From AdvReac Unknown Other (See Verified 05/14/25 07:12 Sudafed) Comment) narcotics AdvReac Unknown gi upset Uncoded 05/14/25 07:12 General Stated Complaint: GenMedical WES: 3 Exam Narrative Exam Narrative: 1.Const: Well-nourished, Well-developed, appearing stated age 2.Eyes: PERRL, no conjunctival injection, and symmetrical lids. 3.ENT: Atraumatic external nose and ears. Moist MM. Neck: Symmetric, trachea midline, No thyromegaly. 4.CVS: +S1/S2, Peripheral pulses 2+ and equal in all extremities. Brisk capillary refill in all extremities. 5.RESP: Scattered rhonchi, no wheezes. Scattered crackles. 6.GI: Soft, nondistended, mild epigastric achiness and generalized achiness throughout. 7.MSK: Normocephalic/Atraumatic, Extremities w/o deformity or ttp No cyanosis or clubbing, Normal movement of all extremities 8.Skin: Warm, Dry. No rashes or lesions. 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 Sensation grossly intact, no focal neurologic deficits. 10.Psych: (AAO) x3. Appropriate mood and affect Course Vital Signs Vital signs: Vital Signs Temperature 36.8 C 05/25/25 00:56 Pulse 140 H 05/25/25 00:56 Respiratory Rate 24 05/25/25 00:56 Blood Pressure 112/72 05/25/25 00:56 Pulse Oximetry 92 05/25/25 00:56 Temperature 36.8 C 05/25/25 01:23 Temperature Source Oral 05/25/25 01:23 Pulse 140 H 05/25/25 01:23 Respiratory Rate 24 05/25/25 01:23 Blood Pressure 112/72 05/25/25 01:23 Blood Pressure Position Sitting 05/25/25 01:23 Pulse Oximetry 92 05/25/25 01:23 Oxygen Delivery Method Room Air 05/25/25 01:23 Oxygen Flow Rate 0 05/25/25 01:23 Pain Level 10 05/25/25 01:23 Lab/Test Results Lab/Test Results: 05/25/25 01:10 Blood Blood Culture - Pending 05/25/25 01:09 Blood Blood Culture - Pending Medical Decision Making 59-year-old female with past medical history of metastatic non-small cell lung cancer, COPD, chronic pain syndrome/fibromyalgia, presents today for evaluation of vomiting chest pain cough chills. Patient was recently admitted to an [facility] for pneumonia and sepsis. She was discharged after notable improvement on antibiotics on 05/18/2025, she was started on Augmentin, prednisone and oxycodone for outpatient treatment. Blood cultures were negative at the time of discharge. At home for the past week she states that she is continued to have her cough which she feels has been starting to get worse over the last 2 to 3 days. She also has some chest pain which she describes as mild and achy. She has systemic aches throughout her body for the last few days. She also admits to vomiting a few times tonight and intermittently over the last few days. She denies any significant blood in her vomit or stool. She denies any other complaints at this time. She states she has been taking her medications as prescribed. No other modifying factors. Exam demonstrates in nauseous female who is actively coughing, mild abdominal achiness, scattered rhonchi and rales on lung exam. Mucous membranes slightly dry. Differential is broad, but includes PE, pneumonia, viral etiology including COVID and flu, pancreatitis, or gastroenteritis. Will rehydrate, evaluate for concerning etiologies, monitor closely and reassess. EKG shows no evidence of STEMI. 4:19 AM Laboratory workup has returned, white count is 13 and uptrending from when she was discharged. Platelets are increasing to 793, she does have a continued left shift, no acidosis. Lactate normal. Her procalcitonin is certainly increasing at 5.05. proBNP normal suggesting no heart strain. Troponin normal. COVID flu and RSV test negative. CT scan shows fluid throughout the stomach small bowel and colon suspicious for gastroenteritis. We are still pending C. difficile result. She does have the large right upper lobe mass, but no evidence of pulmonary embolism or pneumonia. We are still pending urinalysis. Every time she tries to urinate she also defecates and so the stool has been contaminating the urinary system specimens. Uncertain as to the potential infectious source of her symptoms with the increasing white count, the elevated procalcitonin, and her chills. She is still currently on Augmentin. Patient remains tachycardic even after 2 L of fluids. Heart rate in the 120s to 130s. Sinus without evidence of A-fib or flutter. However review of her prior vital signs seem to indicate that she is often on the tachycardic side but certainly not this high. No hypotension to suggest the need for rate control. Will continue to hydrate. Will reach out to the hospitalist for admission. Additionally, the patient does state that she had been getting her drinking water from the spring in [facility] which recently had Giardia. We will get additional complete stool studies and parasite studies. Discussed the case with hospitalist Dr. Waldron, he agrees with the assessment and plan. I have extensively reviewed the treatment plan with the patient. I have addressed all patient concerns at this time. I have also discussed the plan with the admitting physician and they agree with the current assessment and plan and have agreed to assume responsibility for the patient. All parties demonstrate verbal understanding and agreement with our assessment and plan at this time. The documentation in this chart was dictated using [email or web address] dictation software. Please excuse any dictation errors. FINDINGS: VASCULATURE: Pulmonary arteries: No evidence of PE. Aorta: Atherosclerotic aorta. No aneurysm or acute aortic syndrome. Celiac and mesenteric arteries: No occlusion or significant stenosis. Renal arteries: No occlusion or significant stenosis. CHEST: Lungs: 10 cm right upper lobe/right suprahilar/right paramediastinal malignant mass, presumably primary lung cancer. Bullous emphysema in the anterior right upper lobe. Pleural spaces: Unremarkable. No pneumothorax. No pleural effusion. Heart: Unremarkable. No cardiomegaly. No pericardial effusion. ABDOMEN AND PELVIS: Liver: Indeterminate irregular 2.5 cm slightly hypodense lesion in the right lobe of the liver. Gallbladder and biliary ducts: Unremarkable. No calcified stones. No ductal dilation. Pancreas: Unremarkable. No mass. No ductal dilation. Spleen: Unremarkable. No splenomegaly. Adrenal glands: Unremarkable. No mass. Kidneys: Unremarkable kidneys. No solid mass. No hydronephrosis. Stomach and bowel: Fluid throughout the lumen of the stomach and most of the small bowel and colon, nondilated, most compatible with gastroenteritis. No pneumatosis or portal/mesenteric venous gas. No bowel wall thickening or intestinal obstruction. Intraperitoneal space: No pneumoperitoneum or abscess. Lymph nodes: Unremarkable. No enlarged lymph nodes. Bones/joints: Unremarkable. No acute fracture. Soft tissues: Unremarkable. IMPRESSION: 1. Fluid throughout the lumen of the stomach and most of the small bowel and colon, nondilated, most compatible with gastroenteritis. 2. Indeterminate irregular 2.5 cm slightly hypodense lesion in the right lobe of the liver. 3. 10 cm right upper lobe/right suprahilar/right paramediastinal malignant mass, presumably primary lung cancer. Thank you for allowing us to participate in the care of your patient. Dictated and Authenticated by: Sedrick Forte MD 05/25/2025 3:55 AM Eastern Time ([place] & [place] Quality:SDOH Health Related Social Needs: Health related social needs house/econ circumstance lonely/isolated Health related social needs details ind in room Critical Care Time Critical Care Time Critical Care Time: Yes Total Critical Care Time: 45 Attestation: Upon my evaluation, this patient had a high probability of imminent or life-threatening deterioration, which required my direct attention, intervention, and personal management. I have personally provided 45 minutes of critical care time exclusive of time spent on separately billable procedures. Time includes review of laboratory data, radiology results, discussion with consultants, and monitoring for potential decompensation. Interventions were performed as documented. PFS All Active Problems (Updated 05/25/25 @ 04:44 by Omi Foley DO) Diarrhea (Acute) Acute dehydration (Acute) Sepsis (Acute) Leukocytosis (Acute) Nausea & vomiting (Acute) Moderate protein-calorie malnutrition (Acute) Pneumonia (Acute) Non-small cell lung cancer metastatic to liver (Acute) Acute exacerbation of chronic obstructive pulmonary disease (Acute) Malnutrition (Acute) Nicotine dependence (Acute) Cough (Acute) Allodynia (Acute) Liver mass (Acute) Metastatic primary lung cancer (Acute) Enteritis (Acute) Lung mass (Acute) Pain (Acute) Cancer related pain (Acute) Right ear pain (Acute) Myofascial pain (Acute) Chronic pain (Chronic) Generalized weakness (Acute) Advanced care planning/counseling discussion (Acute) COPD (chronic obstructive pulmonary disease) (Chronic) Generalized pain (Acute) Non-small cell lung cancer metastatic to bone (Acute) Scoliosis (Acute) Hernia of abdominal cavity (Acute) Decreased appetite (Acute) Refractory migraine with aura (Acute) Posttraumatic stress disorder (Acute) Nausea (Acute) Asthma (Chronic) Tremor (Acute) Influenza A (Acute) Generalized hyperhidrosis (Acute) Exposure to viral hepatitis (Acute) (Suspected) Functional tremor (Acute) Vertigo (Acute) Weakness (Acute) Fibromyalgia (Acute) High risk medication use (Acute) History of tobacco abuse (Acute) High blood sugar (Acute) Pulmonary nodule (Acute) Nicotine dependence, cigarettes, uncomplicated (Acute) Mass of upper lobe of right lung (Acute) Lesion of ulnar nerve (Acute) Ovarian cyst (Acute) Fatigue (Acute) Note hx fibromyalgia on problem list Depression (Chronic) Medical History Thoracic outlet syndrome UTI (urinary tract infection) Enterocolitis Polyneuropathy Chemotherapy induced nausea and vomiting Chronic abdominal pain Abnormal findings on diagnostic imaging of lung Tobacco dependence syndrome Left lower quadrant pain Low back pain Rheumatoid arthritis Deviated nasal septum Chronic pain syndrome Chronic pain due to malignant neoplastic disease Malignant neoplasm metastatic to bone Palliative care patient Pneumonia Advance care planning Palliative care encounter Sepsis Constipation Anxiety Metastatic primary lung cancer Chronic back pain Cervical dysplasia Surgical History H/O endoscopy Hx of colonoscopy H/O LEEP Family History Mother Cancer family history of CA Mother bladder questioning ovarian ca Uncle brain CA Grand father CA unknown origin. 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
[2025-05-25 01:35] LABS: INR 1.2 (0.9-1.1); PTT Activated 31.7 sec (20.6-30.2); Prothrombin Time 11.5 sec (9.1-11.1)
[2025-05-25] MEDS: Lactated Ringers 1,000 ML 1000 ML IV (01:36)
[2025-05-25] MEDS: MORPHine 4 MG/ML SYR IVP (01:36)
[2025-05-25 01:37] LABS: Platelet Count 793 10^3/uL (130-400); RBC Morphology Normal
[2025-05-25] MEDS: Ondansetron 4 MG/2 ML VIAL IVP (01:37)
[2025-05-25 01:44] LABS: ALT 12 U/L (14-59); AST 18 U/L (15-37); Albumin 2.8 g/dL (3.4-5.0); Alkaline Phosphatase 96 U/L (46-116); Anion Gap 7.3 mmol/L (3-11); BUN 9 mg/dL (7-18); Bilirubin, Total 0.3 mg/dL (0.2-1.0); CO2 31.7 mmol/L (21.0-32.0); Calcium 8.6 mg/dL (8.5-10.1); Chloride 96 mmol/L (98-107); Glucose 131 mg/dL (74-106); Lipase 15 U/L (<78); Potassium 4.7 mmol/L (3.5-5.1); Sodium 135 mmol/L (136-145); Total Protein 7.4 g/dL (6.4-8.2); Troponin I 5 ng/L (<or=51)
[2025-05-25 01:47] LABS: Procalcitonin 5.05 ng/mL
[2025-05-25 02:39] LABS: Troponin I 5 ng/L (<or=51)
--- NOTE | 2025-05-25 03:02 | DI.CT_ITS ---
Exam(s) CT CHEST PE ABD PELVIS W EXAM: CT CHEST PE ABD PELVIS W CLINICAL HISTORY: chest pain, abdominal pain, vomiting, septic. TECHNIQUE: Imaging Protocol: Axial CT angiography was performed with multi- slice acquisition and multi-planar and/or 3D reconstructions. Computer aided detection (CAD) was utilized. CONTRAST MATERIAL: Intravenous: Omnipaque 350contrast volume:75 mL COMPARISON: CT CT CHEST/ABD/PEL W from 10/30/[address] CHEST PE ABD PELVIS W from 05/07/2025 FINDINGS: The examination is limited due to patient motion artifact. There is also artifact from the position of the patient's upper extremities. CHEST: Tracheobronchial tree: Patent where visualized. No evidence of bronchiectasis. Pulmonary parenchyma: Emphysematous changes are present in the lungs. The left lung is clear. There has been no change in the left perihilar mass consistent with the patient's history of lung carcinoma. The effect on the adjacent airway and pulmonary vasculature is unchanged. There are no new focal consolidating infiltrates. Pulmonary Arteries: No evidence of filling defect to suggest pulmonary emboli. Mediastinum and Evette: There has been no change in the appearance of the mediastinum and right hilum compared to the prior examination. The esophagus is unremarkable. Visualized thyroid gland: Unremarkable. Pleura: No effusion or pneumothorax. Heart: The heart is not dilated. Coronary artery calcifications are present. No pericardial effusion. Aorta: Thoracic aorta non-dilated. No evidence of dissection. Atherosclerotic calcification is present. Bones: Within normal limits for the patient's age. Soft tissues: Unremarkable. ABDOMEN: Liver: Normal density. There is a stable 2.4 cm hypodensity in the right lobe of the liver. Metastatic disease cannot be excluded. Portal, Superior Mesenteric, and Splenic Veins: Unremarkable. Gallbladder and Biliary Tract: No radiodense calculus or dilation. Pancreas: Normal density, no abnormal calcifications or inflammatory process. Spleen: Normal. Adrenals: No masses seen. Kidneys: Normal size, contour and axis. No radiodense stones or obstructive uropathy. No masses seen. Abdominal Aorta: Abdominal portion non-dilated. Atherosclerotic calcification is present. Bowel: There are fluid-filled loops of small and large bowel which can be seen with a diarrheal illness. No evidence of obstruction is seen. There is mild wall thickening seen in small bowel loops in the left upper quadrant which may represent an enteritis. There is no evidence of appendicitis. Peritoneal Cavity: No ascites, collection or mesenteric inflammatory response. No free air. Lymph Nodes: Within normal limits. Bones: Within normal limits for the patient's age. Soft Tissues: Unremarkable. PELVIS: Bladder: Symmetric distention, no gross wall thickening. Reproductive Organs: Unremarkable as visualized. Lymph Nodes: Within normal limits. Bones: Within normal limits. IMPRESSION: 1. There is mild wall thickening seen in small bowel loops in the left upper quadrant of the abdomen suspicious for an enteritis. Fluid-filled loops of small and large bowel are present which can be seen with a diarrheal illness. 2. There is no evidence of obstruction. 3. Stable right lung carcinoma. 4. No acute pulmonary process. 5. There is no evidence of a pulmonary embolism, thoracic aortic dissection or aneurysm. 6. The preliminary [facility] report was reviewed. RADIATION DOSE DELIVERED: 331.2mGy.cm Total DLP DATA REPOSITORY: All CT scans at this facility are submitted to the National Radiology Data Registry (NRDR) Dose Index Registry (DIR) with the [employer] (ACR). RADIATION OPTIMIZATION: All CT scans at this facility use at least one of these dose optimization techniques: automated exposure control; mA and/or kV adjustment per patient size (includes targeted exams where dose is matched to clinical indication); or iterative reconstruction.
[2025-05-25] MEDS: Normal Saline - Diluent 50 ML VIAL IJ (03:03)
[2025-05-25] MEDS: Normal Saline Flush 10 ML SYR IVP ×3 (03:03→22:44)
[2025-05-25] MEDS: Omnipaque 350 MG/ML 100 ML BTL IJ (03:03)
--- NOTE | 2025-05-25 03:56 | DI.VRAD_ITS ---
PROCEDURE INFORMATION: Exam: CTA Chest With Contrast CTA Abdomen With Contrast Exam date and time: 05/25/2025 2:42 AM Age: 59 years old Clinical indication: Other: Chest pain, abdominal pain, vomiting, septic; Additional info: Primary lung CA, secondary bone CA TECHNIQUE: Imaging protocol: Computed tomographic angiography of the chest with contrast. Exam focused on the arteries. Computed tomographic angiography of the abdomen with contrast. Exam focused on the arteries. 3D rendering (Not supervised by radiologist): MIP and/or 3D reconstructed images were created by the technologist. Contrast material: OMNIPAQUE 350; Contrast volume: 75 ml; Contrast route: INTRAVENOUS (IV); COMPARISON: CT CHEST PE ABD PELVIS W 05/07/2025 10:35 PM FINDINGS: VASCULATURE: Pulmonary arteries: No evidence of PE. Aorta: Atherosclerotic aorta. No aneurysm or acute aortic syndrome. Celiac and mesenteric arteries: No occlusion or significant stenosis. Renal arteries: No occlusion or significant stenosis. CHEST: Lungs: 10 cm right upper lobe/right suprahilar/right paramediastinal malignant mass, presumably primary lung cancer. Bullous emphysema in the anterior right upper lobe. Pleural spaces: Unremarkable. No pneumothorax. No pleural effusion. Heart: Unremarkable. No cardiomegaly. No pericardial effusion. ABDOMEN AND PELVIS: Liver: Indeterminate irregular 2.5 cm slightly hypodense lesion in the right lobe of the liver. Gallbladder and biliary ducts: Unremarkable. No calcified stones. No ductal dilation. Pancreas: Unremarkable. No mass. No ductal dilation. Spleen: Unremarkable. No splenomegaly. Adrenal glands: Unremarkable. No mass. Kidneys: Unremarkable kidneys. No solid mass. No hydronephrosis. Stomach and bowel: Fluid throughout the lumen of the stomach and most of the small bowel and colon, nondilated, most compatible with gastroenteritis. No pneumatosis or portal/mesenteric venous gas. No bowel wall thickening or intestinal obstruction. Intraperitoneal space: No pneumoperitoneum or abscess. Lymph nodes: Unremarkable. No enlarged lymph nodes. Bones/joints: Unremarkable. No acute fracture. Soft tissues: Unremarkable. IMPRESSION: 1. Fluid throughout the lumen of the stomach and most of the small bowel and colon, nondilated, most compatible with gastroenteritis. 2. Indeterminate irregular 2.5 cm slightly hypodense lesion in the right lobe of the liver. 3. 10 cm right upper lobe/right suprahilar/right paramediastinal malignant mass, presumably primary lung cancer. Dictated and Authenticated by: Sedrick Forte MD. Orderin Alaina Braga MD
[2025-05-25 04:10] LABS: COVID-19 PCR Negative (Negative); RSV PCR Negative (Negative)
--- NOTE | 2025-05-25 04:42 | W.PM.HP.N ---
Date of service: 05/25/25 Time of Service: 04:42 Assessment and Plan Assessment and plan (1) Nausea & vomiting: Status: Acute Assessment and plan: - Patient's primary complaint is nausea and vomiting which is what brought her into the hospital - Of note she was recently discharged about a week ago on amoxicillin completed therapy for COPD exacerbation -Additionally, prior to that admission, she had been admitted about 2 weeks prior for nausea and vomiting that did not show source of infection was presumed to be secondary to her metastatic non-small cell lung carcinoma - Patient also reports that she has been drinking well water but reportedly ended up having Giardia and it - Awaiting C. difficile and stool studies, holding off on antibiotics at this time as imaging was negative and at this time there is no clear source of infection (2) Leukocytosis: Status: Acute Assessment and plan: - Patient noted as having an elevated white blood cell count of 13 - May be secondary to potential GI infection or may just be demargination in the setting of nausea and vomiting, though as noted above patient had similar presentation at the end of April with no source of infection being found - Follow-up C. difficile and stool studies (3) Thrombocytosis: Status: Acute Assessment and plan: - Potentially secondary to acute GI infection, or may be related to metastatic lung cancer - Follow-up a.m. CBC (4) COPD (chronic obstructive pulmonary disease): Status: Chronic Assessment and plan: - Without acute exacerbation - Continue home inhaler regimen (5) Non-small cell lung cancer metastatic to liver: Status: Acute Assessment and plan: - As noted above patient has history of metastatic non-small cell lung cancer with potential liver metastasis -Patient is on long-acting Oxy is not working well for her, despite her significant pain she states that 5 mg of short acting Oxy roughly every 12-48 hours works for her, aborted for every 6 hours 5 mg as needed oxycodone - Recommend patient follow-up with oncologist at discharge History of Present Illness History of Present Illness Chief Complaint: nausea, vomiting, diarrhea Narrative: 59-year-old female with a past medical history of metastatic lung cancer with liver metastasis, COPD, chronic pain/fibromyalgia recent hospitalizations for similar presentation with nausea and vomiting, as well as recent hospitalization for urinary tract infection presents back to the emergency department with nausea and vomiting. Patient states that after being discharged on 05/18/2025 with Augmentin for UTI she stated that she had been feeling better. However, over the last week her cough appears to have gotten worse as well as some chest pain that is mild and achy and that she has continued to have nonbloody nonbilious nausea and vomiting. She denies any fever, lightheadedness, dizziness. In the emergency department patient was noted as having tachycardia with heart rate 130s, temperature of 102.2 °F, saturating 97% on 2 L nasal cannula. physical exam was unremarkable, CBC showed white blood cell count of 13, platelet count of 793, and CMP was unremarkable. CT chest abdomen pelvis did not show any acute findings, respiratory viral panel was negative, but procalcitonin was elevated to 5. C. difficile and stool cultures were sent. At which time emergency room provider paged hospitalist for admission for patient with nausea and vomiting concerning for potential infectious gastroenteritis with C. difficile and stool cultures pending. Review of Systems All systems reviewed & are unremarkable except as noted in HPI and below PFSH All Active Problems (Updated 05/25/25 @ 05:23 by BERTIN REY) Thrombocytosis (Acute) Diarrhea (Acute) Acute dehydration (Acute) Sepsis (Acute) Leukocytosis (Acute) Nausea & vomiting (Acute) Moderate protein-calorie malnutrition (Acute) Pneumonia (Acute) Non-small cell lung cancer metastatic to liver (Acute) Acute exacerbation of chronic obstructive pulmonary disease (Acute) Malnutrition (Acute) Nicotine dependence (Acute) Cough (Acute) Allodynia (Acute) Liver mass (Acute) Metastatic primary lung cancer (Acute) Enteritis (Acute) Lung mass (Acute) Pain (Acute) Cancer related pain (Acute) Right ear pain (Acute) Myofascial pain (Acute) Chronic pain (Chronic) Generalized weakness (Acute) Advanced care planning/counseling discussion (Acute) COPD (chronic obstructive pulmonary disease) (Chronic) Generalized pain (Acute) Non-small cell lung cancer metastatic to bone (Acute) Scoliosis (Acute) Hernia of abdominal cavity (Acute) Decreased appetite (Acute) Refractory migraine with aura (Acute) Posttraumatic stress disorder (Acute) Nausea (Acute) Asthma (Chronic) Tremor (Acute) Influenza A (Acute) Generalized hyperhidrosis (Acute) Exposure to viral hepatitis (Acute) (Suspected) Functional tremor (Acute) Vertigo (Acute) Weakness (Acute) Fibromyalgia (Acute) High risk medication use (Acute) History of tobacco abuse (Acute) High blood sugar (Acute) Pulmonary nodule (Acute) Nicotine dependence, cigarettes, uncomplicated (Acute) Mass of upper lobe of right lung (Acute) Lesion of ulnar nerve (Acute) Ovarian cyst (Acute) Fatigue (Acute) Note hx fibromyalgia on problem list Depression (Chronic) Medical History Thoracic outlet syndrome UTI (urinary tract infection) Enterocolitis Polyneuropathy Chemotherapy induced nausea and vomiting Chronic abdominal pain Abnormal findings on diagnostic imaging of lung Tobacco dependence syndrome Left lower quadrant pain Low back pain Rheumatoid arthritis Deviated nasal septum Chronic pain syndrome Chronic pain due to malignant neoplastic disease Malignant neoplasm metastatic to bone Palliative care patient Pneumonia Advance care planning Palliative care encounter Sepsis Constipation Anxiety Metastatic primary lung cancer Chronic back pain Cervical dysplasia Surgical History H/O endoscopy Hx of colonoscopy H/O LEEP Family History Mother Cancer family history of CA Mother bladder questioning ovarian ca Uncle brain CA Grand father CA unknown origin. 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 Do you feel safe at home: Yes Do you feel safe in your relationship?: Yes Additional Social history: 1 kid age 15 still at home Meds Allergies and Home Medications Allergies Allergy/AdvReac Type Severity Reaction Status Date / Time levofloxacin Allergy Unknown Other (See Verified 05/14/25 07:12 Comment) gabapentin Allergy sharp Verified 05/14/25 07:12 shooting pains pregabalin Allergy sharp Verified 05/14/25 07:12 shooting pain pseudoephedrine (From AdvReac Unknown Other (See Verified 05/14/25 07:12 Sudafed) Comment) narcotics AdvReac Unknown gi upset Uncoded 05/14/25 07:12 Home Medications Medication Instructions Recorded Confirmed Type cholecalciferol (vitamin D3) 25 125 mcg PO DAILY 01/05/22 05/25/25 History mcg (1,000 unit) capsule guaifenesin 600 mg tablet, 600 mg PO Q12H PRN 08/22/23 05/25/25 History extended release 12 hr (Mucinex) Held on 05/25/25. Instructions: Pt Stopped/Never Started lorazepam 0.5 mg tablet 0.5 mg PO DAILY PRN anxiety #10 11/15/23 05/25/25 Rx Held on 05/25/25. tabs Instructions: Prescription Finished albuterol sulfate 2.5 mg/3 mL 2.5 mg (3 mL) inhalation Q4H PRN 12/22/23 05/25/25 Rx (0.083 %) solution for nebulization shortness of breath or wheezing #540 mL ondansetron 4 mg disintegrating 4 mg PO Q8H PRN 04/24/24 05/25/25 History tablet Bacillus coagulans-inulin 1 1 cap PO DAILY 05/23/24 05/25/25 History billion cell-250 mg capsule (Probiotic with Prebiotic) ipratropium bromide 0.02 % 2.5 ml inhalation Q6H PRN #62.5 mL 07/14/24 05/25/25 Rx solution for inhalation Held on 05/25/25. Instructions: Pt Stopped/Never Started folic acid 1 mg tablet 1 mg PO DAILY 07/21/24 05/25/25 History Held on 05/25/25. Instructions: Prescription Finished budesonide-formoterol HFA 160 1 puff inhalation 6XD PRN wheezing 11/27/24 05/25/25 Rx mcg-4.5 mcg/actuation aerosol #10.2 grams inhaler (Symbicort) clotrimazole 10 mg john 10 mg mucous membrane TID PRN 11/30/24 05/25/25 History ipratropium 20 mcg-albuterol 100 1 puff inhalation Q6H #4 grams 01/07/25 05/25/25 Rx mcg/actuation mist for inhalation (Combivent Respimat) celecoxib 200 mg capsule (Celebrex) 200 mg PO Q12H Pain #60 caps 01/28/25 05/25/25 Rx Held on 05/23/25. Instructions: Changed by Provider albuterol sulfate 90 mcg/actuation See Rx Instructions .Route 03/20/25 05/25/25 Rx aerosol inhaler (Ventolin HFA) .COMPLEX #18 grams albuterol sulfate 1.25 mg/3 mL 1.25 mg inhalation 3XD 03/24/25 05/25/25 History solution for nebulization aluminum-mag hydroxide-simethicone 10 ml PO 4XD PRN 03/24/25 05/25/25 History 200 mg-200 mg-20 mg/5 mL oral susp (Antacid-Antigas) levalbuterol HCl 1.25 mg/3 mL 1.25 mg inhalation Q2H PRN PRN 03/24/25 05/25/25 History solution for nebulization Held on 05/25/25. Instructions: Pt Stopped/Never Started scopolamine base 1 mg over 3 days 1 patch transdermal Q3D PRN 03/24/25 05/25/25 History transdermal patch Held on 05/25/25. Instructions: Prescription Finished omeprazole 20 mg capsule,delayed 20 mg PO PRN PRN 04/22/25 05/25/25 History release diclofenac sodium 1 % topical gel 2 g topical QID PRN pain #100 grams 04/25/25 05/25/25 Rx acetaminophen 500 mg tablet 1,000 mg PO TID 05/08/25 05/25/25 History oxycodone 5 mg tablet 5 mg PO Q4H PRN 05/08/25 05/14/25 History amoxicillin 875 mg-potassium 1 tab PO BID #20 tabs 05/18/25 05/25/25 Rx clavulanate 125 mg tablet oxycodone 20 mg tablet,crush 20 mg PO Q12H #20 tabs 05/18/25 05/25/25 Rx resistant,extended release 12 hr (OxyContin) prednisone 20 mg tablet 40 mg (2 x 20 mg) PO DAILY #10 tabs 05/18/25 05/25/25 Rx Held on 05/25/25. Instructions: Prescription Finished ketorolac 10 mg tablet 10 mg PO Q6H #16 tabs 05/23/25 05/25/25 Rx naloxone 4 mg/actuation nasal 4 mg intranasal Q2M PRN 05/25/25 05/25/25 History spray (Narcan) Exam Narrative Exam Narrative: Chronically ill, frail, cachectic appearing older female laying in bed in distress secondary to pain, ANO x 4, heart regular rhythm, auscultation bilaterally, abdomen soft, nontender, nondistended Results Labs 05/25/25 01:10 05/25/25 01:10 Labs: Laboratory Results - last 24 hr 05/25/25 05/25/25 05/25/25 01:10 02:11 03:20 WBC 13.76 H RBC 3.74 L Hgb 10.6 L Hct 32.9 L MCV 88 MCH 28.3 MCHC 32.2 RDW 14.0 Plt Count 793 H* MPV 8.1 Immature Gran % 0.4 Neutrophils % 71.3 Lymphocytes % 15.9 Monocytes % 11.0 Eosinophils % 0.9 Basophils % 0.5 Nucleated RBC % 0.0 Absolute Neutrophils 9.81 H Absolute Lymphocytes 2.19 Absolute Monocytes 1.51 H Absolute Eosinophils 0.12 Absolute Basophils 0.07 RBC Morphology Normal PT 11.5 H INR 1.2 H APTT 31.7 H VBG pH 7.38 VBG pCO2 52 H VBG pO2 25 VBG HCO3 30 H VBG Total CO2 29 VBG O2 Saturation 40 VBG Base Excess 5 H VBG Lactate 1.7 Sodium 135 L Potassium 4.7 Chloride 96 L Carbon Dioxide 31.7 Anion Gap 7.3 BUN 9 Creatinine 0.7 Est GFR (CKD-EPI 2020) 98.95 Glucose 131 H Calcium 8.6 Total Bilirubin 0.3 AST 18 ALT 12 L Alkaline Phosphatase 96 Troponin I 5 5 NT-Pro-B Natriuret Pep 252 Total Protein 7.4 Albumin 2.8 L Lipase 15 Procalcitonin 5.05 COVID-19 Source Nasopharynx SARS-CoV-2 (PCR) Negative Influenza Type A (PCR) Negative Influenza Type B (PCR) Negative RSV (PCR) Negative Last Vital Signs Temp 98.2 F 05/25/25 01:23 Pulse 140 H 05/25/25 01:23 Resp 24 05/25/25 01:23 BP 112/72 05/25/25 01:23 Pulse Ox 92 05/25/25 01:23 Time Spent Time spent with Patient: >75 minutes Time was spent: preparing to see the patient(eg.review tests), obtaining and/or reviewing separately otained hiistory, ordering medications,tests, procedures, referring, communicating with other health ostomy care nurse, indepentently interpreting results, counseling the patient and care coordination
[2025-05-25] MEDS: Normal Saline 1,000 ML 1000 ML IV (04:47)
--- NOTE | 2025-05-25 06:47 | W.PC.ACHO ---
Registration Status: ADM YAJAIRA Primary Language: Preferred Language: ED Information & Data Chief Complaint GenMedical 05/25/25 01:36 Triage Note ENRIQUE, believes she is septic 05/25/25 00:56 . recent hospitalization, went home friday 05/18. Has been taking augmentin. says her stomach is a mess. started vomiting 1.5 hours ago. Endorses full body aches/pains. Medical / Surgical History (Last Reviewed 05/15/25 @ 09:30 by Leo Weeks MD) Thoracic outlet syndrome UTI (urinary tract infection) Enterocolitis Polyneuropathy Chemotherapy induced nausea and vomiting Chronic abdominal pain Abnormal findings on diagnostic imaging of lung Tobacco dependence syndrome Left lower quadrant pain Low back pain Rheumatoid arthritis Deviated nasal septum Chronic pain syndrome Chronic pain due to malignant neoplastic disease Malignant neoplasm metastatic to bone Palliative care encounter Sepsis Constipation Anxiety Metastatic primary lung cancer Chronic back pain Cervical dysplasia (Last Reviewed 05/15/25 @ 09:29 by Leo Weeks MD) H/O endoscopy Hx of colonoscopy H/O LEEP Most Recent Vital Signs Temperature 39.0 C H 05/25/25 06:25 Temperature Source Temporal Artery Scan 05/25/25 06:25 Pulse 122 H 05/25/25 06:25 Pulse Rhythm Regular 05/25/25 05:39 Pulse 133 H 05/25/25 04:40 Respiratory Rate 24 05/25/25 06:25 Respiratory Effort Short of Breath 05/25/25 05:39 Respiratory Depth Shallow 05/25/25 05:39 Respiratory Pattern Tachypnea 05/25/25 05:39 Blood Pressure 101/62 05/25/25 06:25 Blood Pressure Mean 75 05/25/25 06:25 Blood Pressure Position Sitting 05/25/25 01:23 Pulse Oximetry 97 05/25/25 05:39 Oxygen Delivery Method Nasal Cannula 05/25/25 06:25 Oxygen Flow Rate 2 05/25/25 06:25 Pain Level 10 05/25/25 05:39 Allergies levofloxacin Allergy (Unknown, Verified 05/14/25 07:12) Other (See Comment) severe headache, muscle ache, joint pain and inflammation. even my skin hurt. gabapentin Allergy (Verified 05/14/25 07:12) sharp shooting pains pregabalin Allergy (Verified 05/14/25 07:12) sharp shooting pain pseudoephedrine (From Sudafed) Adverse Reaction (Unknown, Verified 05/14/25 07:12) Other (See Comment) narcotics Adverse Reaction (Unknown, Uncoded 05/14/25 07:12) gi upset Precautions Isolation Standard precaution 05/25/25 01:02 Active Medications Generic Name Dose Route Start Last Admin Trade Name Freq PRN Reason Stop Dose Admin Iohexol 100 ml 05/25/25 01:45 05/25/25 03:03 Omnipaque 350 Mg/Ml 100 Ml Btl IJ 06/24/25 23:59 75 ml DIRECTED FARHAD Administration Sodium Chloride 50 ml 05/25/25 01:45 05/25/25 03:03 Normal Saline - Diluent 50 Ml Vial IJ 50 ml DIRECTED FARHAD Administration Sodium Chloride 0 ml 05/25/25 01:42 05/25/25 03:03 Normal Saline Flush 10 Ml Syr IVP 10 ml PRN PRN Administration IV IV Catheter Type [Left Saline Lock Antecubital] IV Catheter Gauge [Left 18 Antecubital] Diet Orders Category Date Time Status Regular/Normal [DIET] Nutrition 05/25/25 Breakfast Active Diagnostics 05/25/25 05/25/25 05/25/25 Range/Units 04:09 03:20 02:11 WBC (4.4-10.8) 10^3/uL RBC (3.93-5.22) 10^6/uL Hgb (11.2-15.7) g/dL Hct (36.0-46.0) % MCV (80-95) fL MCH (27.0-33.0) pg MCHC (32.0-36.0) % RDW (11.7-14.6) % Plt Count (130-400) 10^3/uL MPV (8.0-11.0) fL Immature Gran % % Neutrophils % % Lymphocytes % % Monocytes % % Eosinophils % % Basophils % % Nucleated RBC % (0.0-0.3) % Absolute Neutrophils (1.2-6.7) 10^3/uL Absolute Lymphocytes (1.2-3.4) 10^3/uL Absolute Monocytes (0.1-0.8) 10^3/uL Absolute Eosinophils (0.0-0.7) 10^3/uL Absolute Basophils (0.0-0.2) 10^3/uL RBC Morphology PT (9.1-11.1) sec INR (0.9-1.1) APTT (20.6-30.2) sec VBG pH (7.31-7.41) VBG pCO2 (41-51) mmHg VBG pO2 mmHg VBG HCO3 (23-28) mmol/L VBG Total CO2 (24-29) mmol/L VBG O2 Saturation % VBG Base Excess (-2-3) mmol/L VBG Lactate (<or=2.0) mmol/L Sodium (136-145) mmol/L Potassium (3.5-5.1) mmol/L Chloride (98-107) mmol/L Carbon Dioxide (21.0-32.0) mmol/L Anion Gap (3-11) mmol/L BUN (7-18) mg/dL Creatinine (0.55-1.02) mg/dL Est GFR (CKD-EPI 2020) (mL/min/1.73m2) Glucose (74-106) mg/dL Calcium (8.5-10.1) mg/dL Total Bilirubin (0.2-1.0) mg/dL AST (15-37) U/L ALT (14-59) U/L Alkaline Phosphatase (46-116) U/L Troponin I Cancelled 5 (<or=51) ng/L NT-Pro-B Natriuret Pep (<300) pg/mL Total Protein (6.4-8.2) g/dL Albumin (3.4-5.0) g/dL Lipase (<78) U/L Procalcitonin ng/mL COVID-19 Source Nasopharynx SARS-CoV-2 (PCR) Negative (Negative) Influenza Type A (PCR) Negative (Negative) Influenza Type B (PCR) Negative (Negative) RSV (PCR) Negative (Negative) 05/25/25 Range/Units 01:10 WBC 13.76 H (4.4-10.8) 10^3/uL RBC 3.74 L (3.93-5.22) 10^6/uL Hgb 10.6 L (11.2-15.7) g/dL Hct 32.9 L (36.0-46.0) % MCV 88 (80-95) fL MCH 28.3 (27.0-33.0) pg MCHC 32.2 (32.0-36.0) % RDW 14.0 (11.7-14.6) % Plt Count 793 H* (130-400) 10^3/uL MPV 8.1 (8.0-11.0) fL Immature Gran % 0.4 % Neutrophils % 71.3 % Lymphocytes % 15.9 % Monocytes % 11.0 % Eosinophils % 0.9 % Basophils % 0.5 % Nucleated RBC % 0.0 (0.0-0.3) % Absolute Neutrophils 9.81 H (1.2-6.7) 10^3/uL Absolute Lymphocytes 2.19 (1.2-3.4) 10^3/uL Absolute Monocytes 1.51 H (0.1-0.8) 10^3/uL Absolute Eosinophils 0.12 (0.0-0.7) 10^3/uL Absolute Basophils 0.07 (0.0-0.2) 10^3/uL RBC Morphology Normal PT 11.5 H (9.1-11.1) sec INR 1.2 H (0.9-1.1) APTT 31.7 H (20.6-30.2) sec VBG pH 7.38 (7.31-7.41) VBG pCO2 52 H (41-51) mmHg VBG pO2 25 mmHg VBG HCO3 30 H (23-28) mmol/L VBG Total CO2 29 (24-29) mmol/L VBG O2 Saturation 40 % VBG Base Excess 5 H (-2-3) mmol/L VBG Lactate 1.7 (<or=2.0) mmol/L Sodium 135 L (136-145) mmol/L Potassium 4.7 (3.5-5.1) mmol/L Chloride 96 L (98-107) mmol/L Carbon Dioxide 31.7 (21.0-32.0) mmol/L Anion Gap 7.3 (3-11) mmol/L BUN 9 (7-18) mg/dL Creatinine 0.7 (0.55-1.02) mg/dL Est GFR (CKD-EPI 2020) 98.95 (mL/min/1.73m2) Glucose 131 H (74-106) mg/dL Calcium 8.6 (8.5-10.1) mg/dL Total Bilirubin 0.3 (0.2-1.0) mg/dL AST 18 (15-37) U/L ALT 12 L (14-59) U/L Alkaline Phosphatase 96 (46-116) U/L Troponin I 5 (<or=51) ng/L NT-Pro-B Natriuret Pep 252 (<300) pg/mL Total Protein 7.4 (6.4-8.2) g/dL Albumin 2.8 L (3.4-5.0) g/dL Lipase 15 (<78) U/L Procalcitonin 5.05 ng/mL COVID-19 Source SARS-CoV-2 (PCR) (Negative) Influenza Type A (PCR) (Negative) Influenza Type B (PCR) (Negative) RSV (PCR) (Negative) 05/25/25 02:04 Blood Culture - Pending Blood 05/25/25 01:10 Blood Culture - Pending Blood Intake and Output - 24 Hour Total 05/25/25 00:53 thru 05/25/25 05:39 Intake Total 1000 Balance 1000 Weight 53.581 kg Intake: IV 1000 Other: Urine Appearance Clear # Bowel Movements 1 Falls Risk Assessment History of Falls No History 05/25/25 05:39 Contributing Factors Impairments 05/25/25 05:39 Ambulatory Aids Uses ambulatory device + 05/25/25 05:39 Tubes/Lines With any additional score 05/25/25 05:39 Gait Evaluation W/any additional score 05/25/25 05:39 Cognition No cognitive impairment 05/25/25 05:39 Fall Total Score 73 05/25/25 05:39 Level of Risk High Risk 05/25/25 05:39 Problems (Last Reviewed 05/15/25 @ 09:30 by Leo Weeks MD) Thrombocytosis (Acute) Leukocytosis (Acute) Nausea & vomiting (Acute) Non-small cell lung cancer metastatic to liver (Acute) COPD (chronic obstructive pulmonary disease) (Chronic) Attestation Statement: By documenting the first initial, last name, and credentials of the reporting nurse below, both parties acknowledge that all relevant information regarding the patient handoff has been communicated, and that all questions have been addressed to ensure continuity and safety of care. Additional Patient Information/Comments: Report Received From: Kevin Carlos RN all questions answered: yes
[2025-05-25] MEDS: oxyCODONE 5 MG TAB PO ×3 (06:53→19:28)
[2025-05-25] MEDS: Acetaminophen 500 MG TAB PO ×3 (08:36→19:29)
[2025-05-25] MEDS: Ipratropium/Albuterol 4 GM 120 PUFF INH IH ×2 (08:42→13:21)
[2025-05-25] MEDS: Budesonide/Formoterol 160/4.5 6 GM 60 PUFF INH IH ×2 (08:43→19:41)
[2025-05-25 10:19] LABS: EPI 027-NAP1-B1 PRESUMPTIVE NEGATIVE
[2025-05-25] MEDS: Omeprazole 20 MG CAPCR PO (11:46)
[2025-05-25] MEDS: oxyCODONE-CR 20 MG TABCR PO ×2 (12:06→22:43)
--- NOTE | 2025-05-25 12:38 | PHA.REVIEW2 ---
Pharmacy Admission Review Admission Clinical Review Admission Pharmacy Review: Thrombocytosis (Acute) Leukocytosis (Acute) Nausea & vomiting (Acute) Non-small cell lung cancer metastatic to liver (Acute) levofloxacin Allergy (Unknown, Verified 05/14/25 07:12) Other (See Comment) gabapentin Allergy (Verified 05/14/25 07:12) sharp shooting pains pregabalin Allergy (Verified 05/14/25 07:12) sharp shooting pain pseudoephedrine (From Sudafed) Adverse Reaction (Unknown, Verified 05/14/25 07:12) Other (See Comment) narcotics Adverse Reaction (Unknown, Uncoded 05/14/25 07:12) gi upset Resuscitation Status Full Code Height 5 ft 6 in Weight 53.581 kg Comments Comments/Follow Ups: blood cultures pending Pharmacy Admission Review Renal Dosing Renal Dosing: BUN 9 mg/dL (7-18) 05/25/25 01:10 Creatinine 0.7 mg/dL (0.55-1.02) 05/25/25 01:10 Medications needing adjustments: Reviewed (CrCl 50.6 mL/min) List of meds needing interventions: Current medications are okay Anticoagulation Anticoagulation: Hgb 10.6 g/dL (11.2-15.7) L 05/25/25 01:10 Hct 32.9 % (36.0-46.0) L 05/25/25 01:10 Plt Count 793 10^3/uL (130-400) H* 05/25/25 01:10 INR 1.2 (0.9-1.1) H 05/25/25 01:10 Creatinine 0.7 mg/dL (0.55-1.02) 05/25/25 01:10 DVT Prophylaxis: Reviewed Medications: Enoxaparin (40mg daily) Opiate Usage Evaluate Pain Scale/Pains Meds: Reviewed (oxycontin 20mg q12h FARHAD + oxycodone 5mg q6h PRN - 1 dose given) Scheduled Bowel Reg ordered if on Opiates?: No (PRN Miralax) Relevant Labs Relevant Labs: Sodium 135 mmol/L (136-145) L 05/25/25 01:10 Potassium 4.7 mmol/L (3.5-5.1) 05/25/25 01:10 Chloride 96 mmol/L (98-107) L 05/25/25 01:10 Electrolytes, C-Reactive P, ESR: Reviewed Cardiac Review Cardiac Review: Troponin I Cancelled 05/25/25 04:09 NT-Pro-B Natriuret Pep 252 pg/mL (<300) 05/25/25 01:10 Blood Pressure : Heart Rate 100/51 : 106 1114 Blood Pressure : Heart Rate 98/54 : 117 0811 Blood Pressure : Heart Rate 101/62 : 122 0625 Blood Pressure : Heart Rate 101/62 : 127 0539 Blood Pressure : Heart Rate 112/72 : 140 0123 Blood Pressure : Heart Rate 112/72 : 140 0056 BP, HR, EF%: Reviewed QTc Review QTc: Reviewed (439 from 05/25/25) IV to PO Switch IV Medications: Reviewed Home Meds Home Med List reviewed: Intervened Relevent Home Meds Not ordered & why?: Augmentin, vitamin D3, diclofenac gel (PRN), ketorolac, Narcan (PRN) and Zofran (PRN) Changed probiotic to patients own (non-formulary) - will need to be brought in if patient wants to take while inpatient Current Meds Current Medication Order Review: Intervened Comments: Changed IV ED access Changed Combivent timing to BID@0600,1300 per respiratory therapist from patient request Changed omeprazole from PRN PRN to DAILY PRN PRN Comments Comments/Follow Ups: blood cultures pending
--- NOTE | 2025-05-25 14:43 | INITIAL_ITS ---
Date of service: 05/25/25 Time of Service: 14:44 Care Management Initial Assmt Initial Assessment Reason for Hospitalization: nausea, vomiting Functional Status/Living Situation Patient Presentation: Nakita has had 3 admissions within the past month. Most recently being discharged 05/18/2025. Nakita presented to the Emergency Department this morning with complaints of vomiting, chest pain, cough, and chills. She was subsequently admitted to the medical-surgical unit for further evaluation and management. Nakita reports generalized pain related to her known diagnosis of metastatic lung cancer, consistent with previous visits and documentation. Per report, she is not currently receiving active cancer treatment. Palliative Care has been consulted, as Nakita is already known to the service. The current plan of care focuses on symptom management and pain control. During hospitalization, Nakita briefly required supplemental oxygen via nasal cannula. After working with Respiratory Therapy, she was successfully weaned off oxygen. She continues to wear the nasal cannula, though no oxygen is currently running. Information obtained through chart review indicates that Nakita resides in [facility] with her son. She has another adult son who also lives locally, and four additional children residing in [place]. Nakita is typically independent at baseline; however, her two local sons are supportive and willing to assist as needed. Nakita receives community support services through [facility], [facility], and [facility]. CM will continue to follow. Town of Residence: [facility] Resides with: Child Significant Other/Family: Local Natural Supports: Nakita has 6 children and 12 grandchildren. Employment Status: Retired Instrumental Activities of Daily Living (ADLs): Independent Activities/Hobbies/SocialSupport: Nakita loves to sew, but has not been able to recently, due to pain. Medications Medication Management: No Issues/Barriers identified Physical Functioning/Mobility Assistive Device: none Advance Directives Advance Directives: Do you have an Advance Directive: N , 08:39 AD On File at [facility]: N 02/27/25, 08:39 Date Asked 05/14/25 05/14/25, 07:13 AD Date Reviewed COLST On File at [facility] COLST Date Scanned Code Status Resuscitation Status Full Code Portal Pt does not currently have a portal and education provided: Yes Insurance Coverage/Financial Issues Insurance: Medicaid of [place] - [id number] Care Team Visit Care Team Role Provider Type Dakota Naik MD MD [facility] STAFF PHYSICIAN Analy Tai Primary Care Provider NURSE PRACTITIONER Omi Foley, DO Emergency Provider [facility] STAFF PHYSICIAN Abdi Waldron MD Admit Provider [facility] STAFF PHYSICIAN Attending Provider Discharge Potential Discharge Needs: PCP F/U Appt and Other (F/U with oncologist ) Anticipated Barriers to Discharge: None Identified Patient/Family Education Needs: Review discharge instructions, discuss Ask Me Three Transportation: Private vehicle Plan: Anticipate Nakita will return home once medically cleared with no new services indicated. Her son will drive her home via private vehicle when ready. It is recommended she follow up with her community care provider, palliative care, oncologist, and discharge plan of care. CM will continue to follow. Social Determinants of Health Screening Will the Patient Participate in the Screening?: Unable to obtain PFSH All Active Problems (Updated 05/25/25 @ 05:23 by BERTIN REY) Thrombocytosis (Acute) Diarrhea (Acute) Acute dehydration (Acute) Sepsis (Acute) Leukocytosis (Acute) Nausea & vomiting (Acute) Moderate protein-calorie malnutrition (Acute) Pneumonia (Acute) Non-small cell lung cancer metastatic to liver (Acute) Acute exacerbation of chronic obstructive pulmonary disease (Acute) Malnutrition (Acute) Nicotine dependence (Acute) Cough (Acute) Allodynia (Acute) Liver mass (Acute) Metastatic primary lung cancer (Acute) Enteritis (Acute) Lung mass (Acute) Pain (Acute) Cancer related pain (Acute) Right ear pain (Acute) Myofascial pain (Acute) Chronic pain (Chronic) Generalized weakness (Acute) Advanced care planning/counseling discussion (Acute) COPD (chronic obstructive pulmonary disease) (Chronic) Generalized pain (Acute) Non-small cell lung cancer metastatic to bone (Acute) Scoliosis (Acute) Hernia of abdominal cavity (Acute) Decreased appetite (Acute) Refractory migraine with aura (Acute) Posttraumatic stress disorder (Acute) Nausea (Acute) Asthma (Chronic) Tremor (Acute) Influenza A (Acute) Generalized hyperhidrosis (Acute) Exposure to viral hepatitis (Acute) (Suspected) Functional tremor (Acute) Vertigo (Acute) Weakness (Acute) Fibromyalgia (Acute) High risk medication use (Acute) History of tobacco abuse (Acute) High blood sugar (Acute) Pulmonary nodule (Acute) Nicotine dependence, cigarettes, uncomplicated (Acute) Mass of upper lobe of right lung (Acute) Lesion of ulnar nerve (Acute) Ovarian cyst (Acute) Fatigue (Acute) Note hx fibromyalgia on problem list Depression (Chronic) Medical History Thoracic outlet syndrome UTI (urinary tract infection) Enterocolitis Polyneuropathy Chemotherapy induced nausea and vomiting Chronic abdominal pain Abnormal findings on diagnostic imaging of lung Tobacco dependence syndrome Left lower quadrant pain Low back pain Rheumatoid arthritis Deviated nasal septum Chronic pain syndrome Chronic pain due to malignant neoplastic disease Malignant neoplasm metastatic to bone Palliative care patient Pneumonia Advance care planning Palliative care encounter Sepsis Constipation Anxiety Metastatic primary lung cancer Chronic back pain Cervical dysplasia Surgical History H/O endoscopy Hx of colonoscopy H/O LEEP Family History Mother Cancer family history of CA Mother bladder questioning ovarian ca Uncle brain CA Grand father CA unknown origin. 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 Interview patient and/or Family Difficulty reaching your doctor or getting an office appt?: No Have you had trouble purchasing/ or taking medication?: No Have you had trouble with getting meals at home?: No Did you feel ready for discharge when you left the last time: No Why did you not feel ready for discharge?: pain, felt that questions were not answered surrounding her care Were services received that you thought were set up on disch: Yes Did you call your physician beore you came to the ED?: No Did your physician tell you to come in?: No If the patient had a VNA ordered Did the patient have a VNA order?: No ED visits How many ED visits in the past 12 months: 11
--- NOTE | 2025-05-25 14:48 | PGE_ITS ---
Date of Service Date of service: 05/25/25 Time of Service: 08:00 Assessment and Plan Assessment and plan (1) Nausea & vomiting: Status: Acute Assessment and plan: - Patient's primary complaint is nausea and vomiting which is what brought her into the hospital - Of note she was recently discharged about a week ago on amoxicillin completed therapy for COPD exacerbation -Additionally, prior to that admission, she had been admitted about 2 weeks prior for nausea and vomiting that did not show source of infection was presumed to be secondary to her metastatic non-small cell lung carcinoma - Patient also reports that she has been drinking well water but reportedly ended up having Giardia and it - Awaiting C. difficile and stool studies, holding off on antibiotics at this time as imaging was negative and at this time there is no clear source of infection May 25: Improved nausea. Discussed home regimen. Diagnostics negative thus far. Continue VTE ppx enoxaparin. (2) Leukocytosis: Status: Acute Assessment and plan: - Patient noted as having an elevated white blood cell count of 13 - May be secondary to potential GI infection or may just be demargination in the setting of nausea and vomiting, though as noted above patient had similar presentation at the end of April with no source of infection being found - Follow-up C. difficile and stool studies May 25: Likely due to vomiting, active malignancy. (3) Thrombocytosis: Status: Acute Assessment and plan: - Potentially secondary to acute GI infection, or may be related to metastatic lung cancer - Follow-up a.m. CBC May 25: discussed need for patient to see her oncologist (4) COPD (chronic obstructive pulmonary disease): Status: Chronic Assessment and plan: - Without acute exacerbation - Continue home inhaler regimen (5) Non-small cell lung cancer metastatic to liver: Status: Acute Assessment and plan: - As noted above patient has history of metastatic non-small cell lung cancer with potential liver metastasis -Patient is on long-acting Oxy is not working well for her, despite her significant pain she states that 5 mg of short acting Oxy roughly every 12-48 hours works for her, aborted for every 6 hours 5 mg as needed oxycodone - Recommend patient follow-up with oncologist at discharge Subjective Subjective Interval history since last seen: Ms. Hancock continues to have complaints of pain, nausea, diarrhea. Poor insight into her medical condition and treatment. Exam Narrative Exam Narrative: General: This is an emotional, thin woman in active distress due to reported pain HEENT: Normocephalic, atraumatic CV: RRR Resp: CTAB Abd: soft, NTND MSK: voluntary motion x4 Neuro: awake, alert, no focal deficits Objective Last Vital Signs Temp 37.5 C 05/25/25 11:14 Pulse 106 H 05/25/25 11:14 Resp 16 05/25/25 11:14 BP 100/51 L 05/25/25 11:14 Pulse Ox 97 05/25/25 11:14 Laboratory Results - last 24 hr 05/25/25 05/25/25 05/25/25 01:10 02:11 03:20 WBC 13.76 H RBC 3.74 L Hgb 10.6 L Hct 32.9 L MCV 88 MCH 28.3 MCHC 32.2 RDW 14.0 Plt Count 793 H* MPV 8.1 Immature Gran % 0.4 Neutrophils % 71.3 Lymphocytes % 15.9 Monocytes % 11.0 Eosinophils % 0.9 Basophils % 0.5 Nucleated RBC % 0.0 Absolute Neutrophils 9.81 H Absolute Lymphocytes 2.19 Absolute Monocytes 1.51 H Absolute Eosinophils 0.12 Absolute Basophils 0.07 RBC Morphology Normal PT 11.5 H INR 1.2 H APTT 31.7 H VBG pH 7.38 VBG pCO2 52 H VBG pO2 25 VBG HCO3 30 H VBG Total CO2 29 VBG O2 Saturation 40 VBG Base Excess 5 H VBG Lactate 1.7 Sodium 135 L Potassium 4.7 Chloride 96 L Carbon Dioxide 31.7 Anion Gap 7.3 BUN 9 Creatinine 0.7 Est GFR (CKD-EPI 2020) 98.95 Glucose 131 H Calcium 8.6 Total Bilirubin 0.3 AST 18 ALT 12 L Alkaline Phosphatase 96 Troponin I 5 5 NT-Pro-B Natriuret Pep 252 Total Protein 7.4 Albumin 2.8 L Lipase 15 Procalcitonin 5.05 Stl C.difficile Tox PCR COVID-19 Source Nasopharynx SARS-CoV-2 (PCR) Negative Influenza Type A (PCR) Negative Influenza Type B (PCR) Negative RSV (PCR) Negative 05/25/25 05/25/25 04:09 09:20 WBC RBC Hgb Hct MCV MCH MCHC RDW Plt Count MPV Immature Gran % Neutrophils % Lymphocytes % Monocytes % Eosinophils % Basophils % Nucleated RBC % Absolute Neutrophils Absolute Lymphocytes Absolute Monocytes Absolute Eosinophils Absolute Basophils RBC Morphology PT INR APTT VBG pH VBG pCO2 VBG pO2 VBG HCO3 VBG Total CO2 VBG O2 Saturation VBG Base Excess VBG Lactate Sodium Potassium Chloride Carbon Dioxide Anion Gap BUN Creatinine Est GFR (CKD-EPI 2020) Glucose Calcium Total Bilirubin AST ALT Alkaline Phosphatase Troponin I Cancelled NT-Pro-B Natriuret Pep Total Protein Albumin Lipase Procalcitonin Stl C.difficile Tox PCR Negative COVID-19 Source SARS-CoV-2 (PCR) Influenza Type A (PCR) Influenza Type B (PCR) RSV (PCR) Time Spent with Patient Time Spent with Patient: 25-34 minutes Time was spent: preparing to see the patient(eg.review tests), obtaining and/or reviewing separately otained hiistory, ordering medications,tests, procedures, referring, communicating with other health hospice home care coordinator, indepentently interpreting results, counseling the patient and care coordination
[2025-05-25 15:55] LABS: Glucose Negative (Negative)
[2025-05-26] VITALS (11 sets, daily range): BP systolic 89–115; BP diastolic 50–65; PULSE 95–145; RESP 12–22; TEMP 36.4–38.4; O2SAT 90–96
[2025-05-26] MEDS: oxyCODONE 5 MG TAB PO ×5 (00:39→19:37)
[2025-05-26] MEDS: Acetaminophen 500 MG TAB PO ×3 (00:39→13:19)
[2025-05-26] MEDS: Albuterol 2.5 MG/3 ML INH SOLN VIAL IH (00:48)
[2025-05-26] MEDS: Normal Saline Flush 10 ML SYR IVP ×5 (06:51→19:38)
[2025-05-26] MEDS: MORPHine 4 MG/ML SYR IVP ×3 (06:51→23:53)
[2025-05-26] MEDS: Ondansetron 4 MG/2 ML VIAL IVP ×2 (06:52→15:34)
[2025-05-26 06:58] LABS: HCT 31.6 % (36.0-46.0); HGB 10.4 g/dL (11.2-15.7); MCH 28.6 pg (27.0-33.0); MCHC 32.9 % (32.0-36.0); MCV 87 fL (80-95); MPV 8.2 fL (8.0-11.0); RBC 3.64 10^6/uL (3.93-5.22); RDW 13.9 % (11.7-14.6); RDW-SD 44.2 fL; WBC 13.14 10^3/uL (4.4-10.8)
[2025-05-26 07:06] LABS: Platelet Count 690 10^3/uL (130-400)
[2025-05-26 07:11] LABS: Anion Gap 9.3 mmol/L (3-11); BUN 4 mg/dL (7-18); CO2 28.7 mmol/L (21.0-32.0); Calcium 8.8 mg/dL (8.5-10.1); Chloride 98 mmol/L (98-107); Glucose 160 mg/dL (74-106); Magnesium 1.5 mg/dL (1.8-2.4); Potassium 3.3 mmol/L (3.5-5.1); Sodium 136 mmol/L (136-145)
[2025-05-26] MEDS: Budesonide/Formoterol 160/4.5 6 GM 60 PUFF INH IH ×2 (08:10→20:46)
[2025-05-26] MEDS: Ipratropium/Albuterol 4 GM 120 PUFF INH IH ×2 (08:10→14:48)
--- NOTE | 2025-05-26 08:28 | PDOC.CMPRO ---
Date of service: 05/26/25 Time of Service: 08:28 Care Management Progress Note Progress Note Text Progress Note Text: Nakita is admitted for symptom management related to pain, nausea and diarrhea. She has a history of Non-small cell lung cancer with possible liver metastases. She remains full code and currently followed by Oncology. Treatment options are limited due to her significant anxiety and fear of medication side effects. In an effort to maintain consistency of providers her palliative consult is postponed until tomorrow when Dr. Porras can see her. Discharge Potential Discharge Needs: PCP F/U Appt and Other (Oncology) Anticipated Barriers to Discharge: Medical Status (Pain management) Patient/Family Education Needs: Review discharge instructions, discuss Ask Me Three Transportation: Private vehicle Plan: Anticipate Nakita will return home once medically cleared. Her son will drive her home via private vehicle when ready. She will follow up with her PCP and her oncologist and continue per her discharge plan of care. CM will continue to follow. Social Determinants of Health Screening Will the Patient Participate in the Screening?: Unable to obtain
[2025-05-26] MEDS: POTASSIUM CHLORIDE/0.9% NACL 1,000 ML 75 MEQ IV ×2 (10:46→23:56)
[2025-05-26] MEDS: oxyCODONE-CR 20 MG TABCR PO ×2 (10:46→21:38)
[2025-05-26] MEDS: MAGNESIUM SULFATE 2 GM/50 ML BAG IV_INF (10:47)
--- NOTE | 2025-05-26 17:05 | W.PM.PROGNOT ---
Date of Service Date of service: 05/26/25 Time of Service: 08:00 Assessment and Plan Assessment and plan (1) Nausea & vomiting: Status: Acute Assessment and plan: - Patient's primary complaint is nausea and vomiting which is what brought her into the hospital - Of note she was recently discharged about a week ago on amoxicillin completed therapy for COPD exacerbation -Additionally, prior to that admission, she had been admitted about 2 weeks prior for nausea and vomiting that did not show source of infection was presumed to be secondary to her metastatic non-small cell lung carcinoma - Patient also reports that she has been drinking well water but reportedly ended up having Giardia and it - Awaiting C. difficile and stool studies, holding off on antibiotics at this time as imaging was negative and at this time there is no clear source of infection May 25: Improved nausea. Discussed home regimen. Diagnostics negative thus far. Continue VTE ppx enoxaparin. May 26: Patient declines LMWH. Some ongoing nausea. Approach is primarily to encourage her to return to oncology care as she has all the antiemetics at home that she is getting here. (2) Leukocytosis: Status: Acute Assessment and plan: - Patient noted as having an elevated white blood cell count of 13 - May be secondary to potential GI infection or may just be demargination in the setting of nausea and vomiting, though as noted above patient had similar presentation at the end of April with no source of infection being found - Follow-up C. difficile and stool studies May 25: Likely due to vomiting, active malignancy. (3) Thrombocytosis: Status: Acute Assessment and plan: - Potentially secondary to acute GI infection, or may be related to metastatic lung cancer - Follow-up a.m. CBC May 25: discussed need for patient to see her oncologist (4) COPD (chronic obstructive pulmonary disease): Status: Chronic Assessment and plan: - Without acute exacerbation - Continue home inhaler regimen (5) Non-small cell lung cancer metastatic to liver: Status: Acute Assessment and plan: - As noted above patient has history of metastatic non-small cell lung cancer with potential liver metastasis -Patient is on long-acting Oxy is not working well for her, despite her significant pain she states that 5 mg of short acting Oxy roughly every 12-48 hours works for her, aborted for every 6 hours 5 mg as needed oxycodone - Recommend patient follow-up with oncologist at discharge Subjective Subjective Interval history since last seen: Ms. Hancock continues to have intermittent nausea and vomiting. Persistent pain, currently with adequate regimen. Poor insight. Exam Narrative Exam Narrative: General: This is an emotional, thin woman in active distress due to reported pain HEENT: Normocephalic, atraumatic CV: RRR Resp: CTAB Abd: soft, NTND MSK: voluntary motion x4 Neuro: awake, alert, no focal deficits Objective Last Vital Signs Temp 36.4 C L 05/26/25 15:15 Pulse 95 H 05/26/25 15:15 Resp 16 05/26/25 15:15 BP 97/56 L 05/26/25 15:15 Pulse Ox 92 05/26/25 15:15 Laboratory Results - last 24 hr 05/26/25 06:43 WBC 13.14 H RBC 3.64 L Hgb 10.4 L Hct 31.6 L MCV 87 MCH 28.6 MCHC 32.9 RDW 13.9 Plt Count 690 H MPV 8.2 Sodium 136 Potassium 3.3 L D Chloride 98 Carbon Dioxide 28.7 Anion Gap 9.3 BUN 4 L Creatinine 0.4 L Est GFR (CKD-EPI 2020) 113.24 Glucose 160 H Calcium 8.8 Magnesium 1.5 L Time Spent with Patient Time Spent with Patient: 25-34 minutes Time was spent: preparing to see the patient(eg.review tests), obtaining and/or reviewing separately otained hiistory, ordering medications,tests, procedures, referring, communicating with other health md do resident urgent care, indepentently interpreting results, counseling the patient and care coordination
[2025-05-26] MEDS: Acetaminophen 500 MG TAB 1000 MG PO (19:37)
[2025-05-26 20:15] LABS: Campylobacter PCR Negative (Negative); Shiga Toxin PCR Negative (Negative); Shigella/Enteroinvasive Ecoli Negative (Negative)
[2025-05-27] VITALS (9 sets, daily range): BP systolic 93–108; BP diastolic 51–58; PULSE 89–109; RESP 16–20; TEMP 36.5–37; O2SAT 91–98
[2025-05-27] MEDS: oxyCODONE 5 MG TAB PO ×4 (02:11→17:02)
[2025-05-27] MEDS: Acetaminophen 500 MG TAB 1000 MG PO ×3 (02:12→17:02)
[2025-05-27] MEDS: MORPHine 4 MG/ML SYR IVP (06:11)
[2025-05-27] MEDS: Ipratropium/Albuterol 4 GM 120 PUFF INH IH ×2 (06:12→13:06)
[2025-05-27] MEDS: guaiFENesin 600 MG TABCR PO ×2 (06:22→20:14)
[2025-05-27] MEDS: Normal Saline Flush 10 ML SYR IVP ×2 (09:57→20:26)
[2025-05-27] MEDS: oxyCODONE-CR 20 MG TABCR PO ×2 (09:59→21:47)
--- NOTE | 2025-05-27 10:50 | CMPROGNOTE_ITS ---
Date of service: 05/27/25 Time of Service: 10:50 Care Management Progress Note Progress Note Text Progress Note Text: Nakita resides in [facility] with her 17 year old son. She has a diagnosis of stage 4 lung cancer and her primary concern at this time is uncontrolled pain, which she feels is preventing her from receiving treatment. Nakita states that she has a few chemo sessions remaining but is unable to proceed with treatment while experiencing this level of pain, expressing that undergoing treatment in her current state would kill her. Per pt, her pain has been poorly controlled for many months despite ongoing efforts and she has since developed her own theories related to the cause of her pain, noting that she spends a great deal of time researching online and feels a fix is not coming fast enough. CM discussed the benefits of setting up a patient portal not only for access to her records but to facilitate communication with her medical team, but she declines and expresses that she does not feel capable of using it and nor would she remember a password. Per pt, she was driving up until about 2 weeks ago but is now unable to due to right arm pain, for which she received an injection and reports only worsened her symptoms. On a side note, Nakita utilized [facility] for the first time to attend this appointment. Nakita is aware that close follow up with outpatient specialists will be recommended on discharge, however patient remains uncertain if she will feel well enough to attend outpatient appointments. CM reviewed [facility] as she would likely be a good candidate for home services and reports that she is willing to consider New RN/CLIENT SERVICE ASSOCIATE services and wants to discuss services again tomorrow. Throughout the conversation, Nakita appeared anxious and tearful at times, especially when talking about her 2 boys and the challenges of being a single mother. Her youngest son is 17, lives with her and does not yet have his drivers license. Her oldest son is supportive and lives nearby and the three of them are all very close. Nakita expressed fear about the limited relationship her youngest son has with his father and concern about how he would manage without her. On the other hand, Nakita talked about her current state of health as a bump in the road and she is planning to be around for a very long time. Palliaitive is following. Discharge Potential Discharge Needs: PCP F/U Appt and Other (oncology f/u) Anticipated Barriers to Discharge: None Identified Patient/Family Education Needs: Review discharge instructions, discuss Ask Me Three Transportation: Private vehicle Plan: Anticipate Nakita will return home once medically cleared., possibly with New [facility] RN/CLIENT SERVICE ASSOCIATE services. Her son will drive her home via private vehicle when ready. She will follow up with her PCP and her oncologist and continue per her discharge plan of care. CM will continue to follow. Social Determinants of Health Screening Will the Patient Participate in the Screening?: Unable to obtain
[2025-05-27] MEDS: Budesonide/Formoterol 160/4.5 6 GM 60 PUFF INH IH ×2 (11:25→20:07)
[2025-05-27] MEDS: LORazepam 0.5 MG TAB PO (11:56)
--- NOTE | 2025-05-27 12:19 | PCNE_ITS ---
Date of service: 05/27/25 Time of Service: 12:19 History of Present Illness Narrative: Nakita Hancock is a 59-year-old woman with NSCL with bone and pulmonary mets who in October noted onset of diffuse intense pain throughout her entire body which started shortly after she was admitted for treatment of pneumonia. She has been meeting Radha Jaime APRN and myself form the [facility] since October 2024 for help with pain management, sorting out goals of care, extra support. Please see previous Outpatient PC notes and recent inpatient pallaitive notes for addl info. Nakita came back to the ED 2 nights ago, as she was xpeiriencing another whole body pain crisis. SHe was in so much pain , that she could not longer take care of herself. SHe reports that she was taking the Oxycontinu 20mg BID as well as the ketoralac 4 times a day and 1 or 2 of the 5 mg Oxy several times a day. Over the past 24 horus in the hospital, she continues to receive the Oxyconitn 20 mg BID, plus requesting Oxy IR 5 mg 4 doses over the past 24 hours, plus Morphone IV 4mg 3 doses over the last 24 hours (MME 114 mg/24 hours). SHe explains that the pain is still terrible but a little better. She tells me today: - that she saw new neurology DIGITAL PROJECT MANAGER in [place] last week, and she does not know wnything, reports no reccomendations. -That no one ever listens to her. -That she needs a nerve pain medicine for her pain BEFORE she can tolerate chemotherapy or radiation therapy. SHe remains certain that her pain (and even her R shoulder and upper chst pain ) is NOT form the tumor, but from the nerve damage. That needs jose d be addressed first...there is no way I can tolerate chemotherapy until this pain is better contorlled.. -Again, would like to be back on Brand name cymbalta, but no one will give it to me. Reminded her how many of her providers have tried to find leftover Brand name med for her unsuccessfully. It's there, no one will help me find it. Would like to try Effexor, heard it might work, but chart says she cannot tolerate venlafaxine. -Will not try gabapentin or pregabalin again. There must be other drugs for this. -I once again broached possibility of hospice, which both I and her PCP have discussed with her in the past. Nakita feels she needs more support and is not receiving any life prolonging treatment for at least 5+ months. Hospice would offer support and help her with sx management. She is adamantly against this. I want to have 'treatment for the cancer. Assessment: Nakita continues to be a challenging patient to work with. She has very specific concepts of health and medications. PLease see my 05/13 note. She has deep distrust of the medical system based on past traumatic experiences. Today she did not mention chronic sepsis or serotonin syndrome. I also note that she is finally using the pain medications that I have been encouraging her to try for months. Since she is now taking them, I suspect they are actually helping , at least a little. I am striving to find a way in which I can support her concept of her medical issues at the same time that I can also advocate for my opinioin (that the lung cancer is causing most of the chest pain and therefore really needs to be treated to reduce tumor and hence pain). I am thus far not been successful. I note that her oncology is feeling distressed that they have been unable to gain the trust of this relatively young woman with a minor child in order to get her to tolerate the thought of having treatment for her cancer. Suggest that medical providers keep an open mind to Nakita's thoughts and ideas but also remain true to what they believe. The best you can do is offer advice and suggestions. Whether she chooses to try the advice and recommendations is up to her. Recommend: Continue to adjust pain medicine regimen: She is actually using the Oxycontin, maybe go up to 30 mg BID? Another option would be to switch to a fentanyl patch. She is asking to have celebrex added back on (and stop the ketorolac). AGree with this. Hospitalist is trialing adding low dose of oral BZD today, and I am hoping that that is helpful for her. I suggested to Nakita that she meet with Dr. Barber to discuss pain medications (he has seen her for interventional pain). I wonder if a psychiatry consult would be helpful to help medical providers understand Nakita better, but she would find stigma in that, Does she have a specific personality D/O, could this be bipolar? Other? In the end, Nakita has received recommendations and is aware of her options for treatment and now it is up to her to decide what she wants to do.. Please call with questions or problems. Assessment and Plan Assessment and plan (1) Non-small cell lung cancer metastatic to liver: Status: Acute (2) Acute exacerbation of chronic obstructive pulmonary disease: Status: Acute (3) Cancer related pain: Status: Acute (4) Pain: Status: Acute (5) COPD (chronic obstructive pulmonary disease): Status: Chronic (6) Advanced care planning/counseling discussion: Status: Acute PFSH All Active Problems (Updated 05/25/25 @ 05:23 by BERTIN REY) Thrombocytosis (Acute) Diarrhea (Acute) Acute dehydration (Acute) Sepsis (Acute) Leukocytosis (Acute) Nausea & vomiting (Acute) Moderate protein-calorie malnutrition (Acute) Pneumonia (Acute) Non-small cell lung cancer metastatic to liver (Acute) Acute exacerbation of chronic obstructive pulmonary disease (Acute) Malnutrition (Acute) Nicotine dependence (Acute) Cough (Acute) Allodynia (Acute) Liver mass (Acute) Metastatic primary lung cancer (Acute) Enteritis (Acute) Lung mass (Acute) Pain (Acute) Cancer related pain (Acute) Right ear pain (Acute) Myofascial pain (Acute) Chronic pain (Chronic) Generalized weakness (Acute) Advanced care planning/counseling discussion (Acute) COPD (chronic obstructive pulmonary disease) (Chronic) Generalized pain (Acute) Non-small cell lung cancer metastatic to bone (Acute) Scoliosis (Acute) Hernia of abdominal cavity (Acute) Decreased appetite (Acute) Refractory migraine with aura (Acute) Posttraumatic stress disorder (Acute) Nausea (Acute) Asthma (Chronic) Tremor (Acute) Influenza A (Acute) Generalized hyperhidrosis (Acute) Exposure to viral hepatitis (Acute) (Suspected) Functional tremor (Acute) Vertigo (Acute) Weakness (Acute) Fibromyalgia (Acute) High risk medication use (Acute) History of tobacco abuse (Acute) High blood sugar (Acute) Pulmonary nodule (Acute) Nicotine dependence, cigarettes, uncomplicated (Acute) Mass of upper lobe of right lung (Acute) Lesion of ulnar nerve (Acute) Ovarian cyst (Acute) Fatigue (Acute) Note hx fibromyalgia on problem list Depression (Chronic) Medical History Thoracic outlet syndrome UTI (urinary tract infection) Enterocolitis Polyneuropathy Chemotherapy induced nausea and vomiting Chronic abdominal pain Abnormal findings on diagnostic imaging of lung Tobacco dependence syndrome Left lower quadrant pain Low back pain Rheumatoid arthritis Deviated nasal septum Chronic pain syndrome Chronic pain due to malignant neoplastic disease Malignant neoplasm metastatic to bone Palliative care patient Pneumonia Advance care planning Palliative care encounter Sepsis Constipation Anxiety Metastatic primary lung cancer Chronic back pain Cervical dysplasia Surgical History H/O endoscopy Hx of colonoscopy H/O LEEP Family History Mother Cancer family history of CA Mother bladder questioning ovarian ca Uncle brain CA Grand father CA unknown origin. 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
--- NOTE | 2025-05-27 15:10 | W.PM.PROGNOT ---
Date of Service Date of service: 05/27/25 Time of Service: 08:00 Assessment and Plan Assessment and plan (1) Nausea & vomiting: Status: Acute Assessment and plan: - Patient's primary complaint is nausea and vomiting which is what brought her into the hospital - Of note she was recently discharged about a week ago on amoxicillin completed therapy for COPD exacerbation -Additionally, prior to that admission, she had been admitted about 2 weeks prior for nausea and vomiting that did not show source of infection was presumed to be secondary to her metastatic non-small cell lung carcinoma - Patient also reports that she has been drinking well water but reportedly ended up having Giardia and it - Awaiting C. difficile and stool studies, holding off on antibiotics at this time as imaging was negative and at this time there is no clear source of infection May 25: Improved nausea. Discussed home regimen. Diagnostics negative thus far. Continue VTE ppx enoxaparin. May 26: Patient declines LMWH. Some ongoing nausea. Approach is primarily to encourage her to return to oncology care as she has all the antiemetics at home that she is getting here. May 27: Patient declined medications and evaluation today. Will work with her on discharge plan as she is able. (2) Leukocytosis: Status: Acute Assessment and plan: - Patient noted as having an elevated white blood cell count of 13 - May be secondary to potential GI infection or may just be demargination in the setting of nausea and vomiting, though as noted above patient had similar presentation at the end of April with no source of infection being found - Follow-up C. difficile and stool studies May 25: Likely due to vomiting, active malignancy. (3) Thrombocytosis: Status: Acute Assessment and plan: - Potentially secondary to acute GI infection, or may be related to metastatic lung cancer - Follow-up a.m. CBC May 25: discussed need for patient to see her oncologist (4) COPD (chronic obstructive pulmonary disease): Status: Chronic Assessment and plan: - Without acute exacerbation - Continue home inhaler regimen (5) Non-small cell lung cancer metastatic to liver: Status: Acute Assessment and plan: - As noted above patient has history of metastatic non-small cell lung cancer with potential liver metastasis -Patient is on long-acting Oxy is not working well for her, despite her significant pain she states that 5 mg of short acting Oxy roughly every 12-48 hours works for her, aborted for every 6 hours 5 mg as needed oxycodone - Recommend patient follow-up with oncologist at discharge Subjective Subjective Interval history since last seen: Ms. Hancock appears uncomfortable in bed. She declines evaluation at this time. Exam Narrative Exam Narrative: Patient declines evaluation. She appears awake and alert without respiratory symptoms, well-perfused. Very thin. Objective Last Vital Signs Temp 37.0 C 05/27/25 15:07 Pulse 103 H 05/27/25 15:07 Resp 20 05/27/25 15:07 BP 99/54 L 05/27/25 15:07 Pulse Ox 91 L 05/27/25 15:07 Laboratory Results - last 24 hr 05/25/25 09:20 Stool Campylobacter PCR Negative Stool Salmonella PCR Negative Stool Shigella PCR Negative Shiga Toxin (PCR) Negative Time Spent with Patient Time Spent with Patient: 25-34 minutes Time was spent: preparing to see the patient(eg.review tests), obtaining and/or reviewing separately otained hiistory, ordering medications,tests, procedures, referring, communicating with other health day care home mother, indepentently interpreting results, counseling the patient and care coordination
[2025-05-27] MEDS: POTASSIUM CHLORIDE/0.9% NACL 1,000 ML 75 MEQ IV (16:02)
[2025-05-27] MEDS: Ondansetron 4 MG/2 ML VIAL IVP (20:20)
[2025-05-28] VITALS (9 sets, daily range): BP systolic 101–109; BP diastolic 51–65; PULSE 93–155; RESP 16–24; TEMP 36.6–40.6; O2SAT 87–96
[2025-05-28] MEDS: Acetaminophen 500 MG TAB 1000 MG PO ×3 (01:58→18:50)
[2025-05-28] MEDS: oxyCODONE 5 MG TAB 10 MG PO ×5 (02:04→18:50)
[2025-05-28] MEDS: POTASSIUM CHLORIDE/0.9% NACL 1,000 ML 75 MEQ IV (05:33)
[2025-05-28] MEDS: Ipratropium/Albuterol 4 GM 120 PUFF INH IH ×2 (06:23→12:20)
--- NOTE | 2025-05-28 08:34 | W.PM.PROGNOT ---
Date of Service Date of service: 05/28/25 Time of Service: 08:00 Assessment and Plan Assessment and plan (1) Non-small cell lung cancer metastatic to liver: Status: Acute Assessment and plan: Patient has a massive right upper lung tumor with metastases to liver and bone She is engaged with [facility] oncology Active symptoms of pain, nausea, vomiting, diarrhea She declines many recommended interventions She has complex descriptions of her reasoning for declining treatment, delivered with high energy She has extremely poor cancer prognosis due to delay in treatment She is at extremely high risk of life-threatening complications from tumor growth, including PE, respiratory failure, cardiac failure, spinal disease Discussed at length with patient's PCP and palliative specialist Recommendation at this time is hospice care (2) 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 Patient castigates previous providers and previous nurses 2. Patient asks next provider to be the one who finds her diagnosis 3. Patient has complex explanations for why her condition is unique to her and her alone 4. Patient has complex explanations for why she can or cannot take a medication or accept a treatment 5. Patient unavailable for shared decision making, persisting in her explanations of side issues (3) Hypercoagulable state: Status: Acute Assessment and plan: High risk for thromboembolism Patient declines to accept recommended heparin products Patient declines to accept DOAC Patient declines to accept mechanical prophylaxis Ongoing attempts to explain risks of VTE and risk/benefit of preventive care (4) Cancer related pain: Status: Acute Assessment and plan: Continue PRN narcotics (5) Nausea & vomiting: Status: Acute Assessment and plan: - Patient's primary complaint is nausea and vomiting which is what brought her into the hospital - Of note she was recently discharged about a week ago on amoxicillin completed therapy for COPD exacerbation -Additionally, prior to that admission, she had been admitted about 2 weeks prior for nausea and vomiting that did not show source of infection was presumed to be secondary to her metastatic non-small cell lung carcinoma - Patient also reports that she has been drinking well water but reportedly ended up having Giardia and it - Awaiting C. difficile and stool studies, holding off on antibiotics at this time as imaging was negative and at this time there is no clear source of infection May 25: Improved nausea. Discussed home regimen. Diagnostics negative thus far. Continue VTE ppx enoxaparin. May 26: Patient declines LMWH. Some ongoing nausea. Approach is primarily to encourage her to return to oncology care as she has all the antiemetics at home that she is getting here. May 27: Patient declined medications and evaluation today. Will work with her on discharge plan as she is able. May 28: No change in management (6) Diarrhea: Status: Acute Assessment and plan: Currently not stooling (7) Moderate protein-calorie malnutrition: Status: Acute Assessment and plan: Very poor appetite Will consult nutrition (8) COPD (chronic obstructive pulmonary disease): Status: Chronic Assessment and plan: - Without acute exacerbation - Continue home inhaler regimen Subjective Subjective Interval history since last seen: Ms. Hancock continues to have persistent complaints of pain, however she stops reporting pain after receiving pain medication. Exam Narrative Exam Narrative: Patient declines evaluation. She appears awake and alert without respiratory symptoms, well-perfused. Very thin. Objective Last Vital Signs Temp 37.8 C H 05/28/25 07:20 Pulse 111 H 05/28/25 07:20 Resp 17 05/28/25 07:20 BP 107/59 L 05/28/25 07:20 Pulse Ox 87 L 05/28/25 07:20 Laboratory Results - last 24 hr 05/25/25 09:20 Cryptosporidium/Giardia SEE BELOW Time Spent with Patient Time Spent with Patient: 25-34 minutes Time was spent: preparing to see the patient(eg.review tests), obtaining and/or reviewing separately otained hiistory, ordering medications,tests, procedures, referring, communicating with other health pet care technician, indepentently interpreting results, counseling the patient and care coordination
[2025-05-28] MEDS: Albuterol 2.5 MG/3 ML INH SOLN VIAL IH ×2 (08:38→23:51)
[2025-05-28] MEDS: Normal Saline Flush 10 ML SYR IVP ×2 (08:43→20:27)
--- NOTE | 2025-05-28 08:44 | PDOC.CMDIS ---
Date of service: 05/28/25 Time of Service: 08:44 LACE Index Scoring Tool Questions: Length of Stay (in days): 3 Was the patient admitted via the E.D.?: Yes Comorbidities: Any Tumor and Metastatic Solid Tumor E.D. Visits: 5 Answers: Total Score: 15 Risk of Readmission: High Risk Care Management Discharge Plan Reason for Hospitalization: Nausea, vomiting, Pain Discharge Plan: Nakita is discharged home via private vehicle with family. Patient will follow up with community providers and continue per her discharge plan of care. New [facility] RN/SR. DIRECTOR is ordered prior to discharge. Patient/Family Education Needs: Review discharge instructions and recommendations to follow up with Oncology. Discuss ask me three. SDOH Health Related Social Needs: Health related social needs house/econ circumstance lonely/isolated Health related social needs details ind in room
[2025-05-28] MEDS: oxyCODONE-CR 20 MG TABCR PO ×2 (09:45→22:01)
[2025-05-28] MEDS: LORazepam 0.5 MG TAB PO ×2 (09:48→10:05)
[2025-05-28] MEDS: Budesonide/Formoterol 160/4.5 6 GM 60 PUFF INH IH ×2 (11:19→20:26)
--- NOTE | 2025-05-28 12:15 | PDOC.CMPRO ---
Date of service: 05/28/25 Time of Service: 12:15 Care Management Progress Note Progress Note Text Progress Note Text: Nakita was going from the shower room across the diaz to her room when CM met up with her. She had taken a shower independently and walking unassisted and without a devlce. She was sitting on the bed and reports to CM that she feeling “horrible” and reports 10/10 pain and expresses significant distress and confusion about her medical condition. She verbalizes to CM that she knows is aware that she has a tumor from her right lung tumor pressing on the nerves in that shoulder but want CM to know that “something else is also going on.” Desires to remain hospitalized to either: Begin chemotherapy, or Achieve adequate pain control to tolerate and attend outpatient chemotherapy. States she knows there will be “rough days ahead” but feels she is “so close” to being able to move forward with treatment. Expresses concern about her ability to care for herself at home after chemotherapy. Does not want her sons to provide personal or physical care. Feels she needs to be in a hospital or similar care setting to safely continue treatment. Reports that her home environment is unsuitable for recovery, citing: Limited space in her trailer, and Lack of necessary durable medical equipment (DME). Social Determinants of Health Screening Will the Patient Participate in the Screening?: Unable to obtain
--- NOTE | 2025-05-28 15:12 | CMPROGNOTE_ITS ---
Date of service: 05/28/25 Time of Service: 15:12 Care Management Progress Note Progress Note Text Progress Note Text: Nakita was sitting up in bed when CM met with her. She was polite and easily engaged in conversation. Nakita reports that she is in 10/10 pain, which she acknowledges is caused by a lung tumor pressing against the anatomy of her right shoulder. She is also convinced that “something else is going on and very politely verbalized, “I just want to know what the fuck is going on.” Nakita has stage IV lung cancer, and expresses a desire to restart chemotherapy and begin on the oral medication recommended by her oncologist. Per pt, she's going to have rough days ahead but believes she is “so close” to getting better. Of note, she has not seen her oncologist since February. Nakita has several concerns about her ability to care for herself at home when she restarts chemotherapy and is adamant that she does not want her sons providing her personal care. She also reports that her home environment is not suitable to recovery because she has limited space and clutter. Getting to appointments also poses a challenge since she is currently unable to drive. Interdisciplinary team meeting was held today to review patient complexity and create a discharge plan that is patient centered. CM will continue to follow and support coordination of needs. Discharge Potential Discharge Needs: PCP F/U Appt and Other (Oncology) Anticipated Barriers to Discharge: SDOH Patient/Family Education Needs: Review discharge instructions, discuss Ask Me Three Transportation: Private vehicle Plan: At this time Nakita's primary Goal is pain control and resumption of cancer treatment. Discharge coordination is ongoing and includes: Community follow up: Close outpatient follow-up with oncology and primary care will be essential to coordinate her treatment plan (the hospitalist notes uncertainty about whether the current oncology plan remains active). Community Supports: * Patient has a Community Health Worker (CHW) from [facility] that helps her with community-based support and resource coordination. She is able to come meet with patient, prior to discharge. * Patient is open to more discussions about home health services, including R N, PT, and [facility]. CM spoke with Joann from [facility] and she is agreeable to offer patient more guidance on their program and how their services. Family Involvement: Currently unclear. Chart review indicates her son, Annette (age 26), lives locally, is listed on her HIPAA, and serves as her Health Care Agent (HCA). Social Determinants of Health Screening Will the Patient Participate in the Screening?: Unable to obtain
[2025-05-28] MEDS: LORazepam 0.5 MG TAB 1 MG PO ×2 (16:01→23:50)
[2025-05-28] MEDS: guaiFENesin 600 MG TABCR PO (23:51)
[2025-05-29] VITALS (9 sets, daily range): BP systolic 88–115; BP diastolic 52–71; PULSE 99–158; RESP 17–38; TEMP 36.9–42; O2SAT 90–96
[2025-05-29] MEDS: POTASSIUM CHLORIDE/0.9% NACL 1,000 ML 75 MEQ IV ×3 (02:36→20:00)
[2025-05-29] MEDS: Acetaminophen 500 MG TAB 1000 MG PO ×2 (03:00→09:12)
[2025-05-29 04:36] LABS: EPI 027-NAP1-B1 PRESUMPTIVE NEGATIVE
[2025-05-29] MEDS: Ipratropium/Albuterol 4 GM 120 PUFF INH IH ×2 (06:03→12:52)
[2025-05-29] MEDS: Budesonide/Formoterol 160/4.5 6 GM 60 PUFF INH IH ×2 (08:16→20:27)
--- NOTE | 2025-05-29 08:34 | CMPROGNOTE_ITS ---
Date of service: 05/29/25 Time of Service: 08:34 Care Management Progress Note Progress Note Text Progress Note Text: CM attempted to meet with Nakita this afternoon, however given that her light was off and she appeared to be sleeping comfortably, CM elected not to wake her. Earlier in the day, CM connected with ARACELI and a CHW (with whom Nakita has developed a strong rapport with) was able to come to the hospital to meet with her. Following that interaction, the patient became agreeable to meet with the hospitalist and received updated information regarding her current diagnostic work-up. Per Dr. Naik, it's unclear what level of understanding her children have of her illness and the patient was encouraged get them involved. Discussions are ongoing, and Per provider discharge readiness will be a slow process. As discussed yesterday, Nakita reported that she is hesitant to accept [facility] services, but remains open to continued conversations about the support they offer. CM is currently waiting to find out when a staff member from [facility] would be available to meet with Nakita to talk about services in more detail. CM will continue to follow and assist with coordination of community supports as appropriate. Discharge Potential Discharge Needs: PT Evaluation, PCP F/U Appt and Other (Oncology Follow up) Patient/Family Education Needs: Review discharge instructions, discuss Ask Me Three Transportation: Private vehicle Plan: Discharge planning will be dependent on patients goals of care. Anticipate, Naktia will discharge home with new [facility] RN,PT,LEISURE TRAVEL AGENT services (if agreeable) via private vehicle with son Annette once an acceptable discharge has been established. Nakita will follow up with community providers (PCP and Oncology) and continue per her discharge plan of care as directed. Patient has a Community Health Worker (CHW) from [facility] that helps her with community- based support and resource coordination. She is able to come meet with patient, prior to discharge. * Social Determinants of Health Screening Will the Patient Participate in the Screening?: Unable to obtain
[2025-05-29] MEDS: oxyCODONE 5 MG TAB 10 MG PO ×3 (08:42→20:17)
[2025-05-29] MEDS: Albuterol 2.5 MG/3 ML INH SOLN VIAL IH (08:43)
[2025-05-29] MEDS: LORazepam 0.5 MG TAB 1 MG PO ×2 (08:43→14:53)
[2025-05-29] MEDS: oxyCODONE-CR 20 MG TABCR PO ×2 (09:12→21:43)
[2025-05-29] MEDS: guaiFENesin 600 MG TABCR PO ×2 (09:12→23:28)
--- NOTE | 2025-05-29 16:13 | PGE_ITS ---
Date of Service Date of service: 05/29/25 Time of Service: 08:00 Assessment and Plan Assessment and plan (1) Non-small cell lung cancer metastatic to liver: Status: Acute Assessment and plan: Patient has a massive right upper lung tumor with metastases to liver and bone She is engaged with [facility] oncology Active symptoms of pain, nausea, vomiting, diarrhea She declines many recommended interventions She has complex descriptions of her reasoning for declining treatment, delivered with high energy She has extremely poor cancer prognosis due to delay in treatment She is at extremely high risk of life-threatening complications from tumor growth, including PE, respiratory failure, cardiac failure, spinal disease Discussed at length with patient's PCP and palliative specialist Recommendation at this time is hospice care May 29: Lengthy discussion with patient. She declined to view her CT showing the size of the tumor. She was, however, able to describe the location of the tumor, and verbalized understanding of the impact of the growing mass on adjacent structures. 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 Patient castigates previous providers and previous nurses 2. Patient asks next provider to be the one who finds her diagnosis 3. Patient has complex explanations for why her condition is unique to her and her alone 4. Patient has complex explanations for why she can or cannot take a medication or accept a treatment 5. Patient unavailable for shared decision making, persisting in her explanations of side issues (3) Hypercoagulable state: Status: Acute Assessment and plan: High risk for thromboembolism Patient declines to accept recommended heparin products Patient declines to accept DOAC Patient declines to accept mechanical prophylaxis Ongoing attempts to explain risks of VTE and risk/benefit of preventive care (4) Cancer related pain: Status: Acute Assessment and plan: Continue PRN narcotics (5) Nausea & vomiting: Status: Acute Assessment and plan: - Patient's primary complaint is nausea and vomiting which is what brought her into the hospital - Of note she was recently discharged about a week ago on amoxicillin completed therapy for COPD exacerbation -Additionally, prior to that admission, she had been admitted about 2 weeks prior for nausea and vomiting that did not show source of infection was presumed to be secondary to her metastatic non-small cell lung carcinoma - Patient also reports that she has been drinking well water but reportedly ended up having Giardia and it - Awaiting C. difficile and stool studies, holding off on antibiotics at this time as imaging was negative and at this time there is no clear source of infection May 25: Improved nausea. Discussed home regimen. Diagnostics negative thus far. Continue VTE ppx enoxaparin. May 26: Patient declines LMWH. Some ongoing nausea. Approach is primarily to encourage her to return to oncology care as she has all the antiemetics at home that she is getting here. May 27: Patient declined medications and evaluation today. Will work with her on discharge plan as she is able. May 28: No change in management (6) Diarrhea: Status: Acute Assessment and plan: Currently not stooling (7) Moderate protein-calorie malnutrition: Status: Acute Assessment and plan: Very poor appetite Will consult nutrition (8) COPD (chronic obstructive pulmonary disease): Status: Chronic Assessment and plan: - Without acute exacerbation - Continue home inhaler regimen Subjective Subjective Interval history since last seen: Ms. Hancock continues to report extreme unrelieved pain. She is able to sleep after doses of narcotics and benzodiazepines. Lengthy conversation with community relations specialist. Patient may be willing to have family involved in her care. Extremely poor prognosis. Exam Narrative Exam Narrative: General: This is an emotional, thin woman in active distress due to reported pain HEENT: Normocephalic, atraumatic CV: RRR Resp: CTAB Abd: soft, NTND MSK: voluntary motion x4 Neuro: awake, alert, no focal deficits Objective Last Vital Signs Temp 38.2 C H 05/29/25 15:14 Pulse 110 H 05/29/25 15:14 Resp 17 05/29/25 15:14 BP 97/53 L 05/29/25 15:14 Pulse Ox 90 L 05/29/25 15:14 Laboratory Results - last 24 hr 05/29/25 03:25 Stl C.difficile Tox PCR Negative Time Spent with Patient Time Spent with Patient: 25-34 minutes Time was spent: preparing to see the patient(eg.review tests), obtaining and/or reviewing separately otained hiistory, ordering medications,tests, procedures, referring, communicating with other health health care specialist, indepentently interpreting results, counseling the patient and care coordination
[2025-05-29] MEDS: MORPHine 2 MG/ML SYR 1 MG IVP ×3 (16:28→23:38)
[2025-05-29] MEDS: Ondansetron 4 MG/2 ML VIAL IVP (16:29)
[2025-05-29] MEDS: Midazolam 2 MG/2 ML VIAL 1 MG IVP (17:42)
[2025-05-29] MEDS: Normal Saline 1,000 ML 1000 ML IV (18:31)
[2025-05-29] MEDS: CEFEPIME 2 GM in Normal Saline 100 ML IVPB (18:52)
[2025-05-29 19:26] LABS: Abs Immature Grans 0.06 10^3/uL (0.0-0.06); HCT 29.3 % (36.0-46.0); HGB 9.7 g/dL (11.2-15.7); Immature Grans % 0.4 %; MCH 28.2 pg (27.0-33.0); MCHC 33.1 % (32.0-36.0); MCV 85 fL (80-95); MPV 8.4 fL (8.0-11.0); RBC 3.44 10^6/uL (3.93-5.22); RDW 13.8 % (11.7-14.6); RDW-SD 42.6 fL; WBC 14.27 10^3/uL (4.4-10.8)
[2025-05-29 19:27] LABS: INR 1.2 (0.9-1.1); Prothrombin Time 11.5 sec (9.1-11.1)
[2025-05-29] MEDS: ACETAMINOPHEN 1,000 MG/100 ML BAG 400 MG IVPB (19:36)
[2025-05-29 19:40] LABS: Uric Acid 4.4 mg/dL (3.1-7.8)
[2025-05-29 19:42] LABS: Platelet Count 795 10^3/uL (130-400)
[2025-05-29 19:43] LABS: Creatine Kinase 61 U/L (34-145)
[2025-05-29 19:45] LABS: AST 13 U/L (<34); Albumin 3.8 g/dL (3.4-5.0); Alkaline Phosphatase 76 U/L (46-116); Anion Gap 8.9 mmol/L (3-11); Bilirubin, Total 0.30 mg/dL (0.2-1.2); CO2 26.1 mmol/L (20.0-31.0); Calcium 8.8 mg/dL (8.3-10.6); Chloride 102 mmol/L (98-107); Glucose 148 mg/dL (74-106); Potassium 3.3 mmol/L (3.5-5.1); Sodium 137 mmol/L (136-145); Total Protein 6.7 g/dL (5.7-8.2)
[2025-05-29 19:47] LABS: TSH 0.48 uIU/mL (0.55-4.78)
[2025-05-29 19:52] LABS: ALT < 7 U/L (10-49); BUN < 5 mg/dL (9-23)
[2025-05-29] MEDS: VANCOMYCIN 1,500 MG in Normal Saline 250 ML 166.667 MG IVPB (20:19)
[2025-05-29] MEDS: Normal Saline Flush 10 ML SYR IVP (21:44)
[2025-05-30] VITALS (18 sets, daily range): BP systolic 90–120; BP diastolic 50–62; PULSE 99–133; RESP 16–22; TEMP 36.1–40; O2SAT 83–98
[2025-05-30] MEDS: Albuterol HFA 8 GM 60 PUFF INH IH (01:18)
[2025-05-30] MEDS: LORazepam 0.5 MG TAB 1 MG PO ×4 (01:23→21:28)
[2025-05-30] MEDS: Acetaminophen 500 MG TAB 1000 MG PO ×2 (01:24→10:33)
[2025-05-30] MEDS: oxyCODONE 5 MG TAB 10 MG PO ×5 (02:01→21:23)
[2025-05-30] MEDS: CEFEPIME 2 GM in Normal Saline 100 ML IVPB ×3 (02:02→17:27)
[2025-05-30] MEDS: Ipratropium/Albuterol 4 GM 120 PUFF INH IH ×2 (06:08→13:26)
[2025-05-30 08:11] LABS: Vancomycin, Random 10.0 ug/mL
[2025-05-30] MEDS: MORPHine 2 MG/ML SYR 1 MG IVP (08:19)
[2025-05-30] MEDS: VANCOMYCIN/WATER (PEG) 1.25 GM/250 ML BAG IVPB (08:27)
[2025-05-30] MEDS: Normal Saline Flush 10 ML SYR IVP ×3 (08:30→23:13)
[2025-05-30] MEDS: Budesonide/Formoterol 160/4.5 6 GM 60 PUFF INH IH ×2 (08:31→19:54)
[2025-05-30] MEDS: oxyCODONE-CR 20 MG TABCR PO ×2 (10:32→23:13)
[2025-05-30] MEDS: POTASSIUM CHLORIDE/0.9% NACL 1,000 ML 75 MEQ IV (11:20)
--- NOTE | 2025-05-30 12:02 | PDOC.CMPRO ---
Date of service: 05/30/25 Time of Service: 12:02 Care Management Progress Note Progress Note Text Progress Note Text: Nakita was awake and texting with one of her children when CM met with her. She is agreeable to a brief conversation, but verbalizes that she is very tired and wants to rest before this evening, so the interaction needs to be kept short. Nakita reports that she has some what of an appetite today, but reports that she is discouraged because her ability to eat was limited due to shakiness and she ended up spilling a lot of her breakfast. Nakita was able to acknowledge the conversation she had with the Hospitalist yesterday, and states I don't know which way I'm going to go with this, I really don't. She also reports that her pain is off the charts, and she is looking forward to her meds being increased. CM revisited her interest in receiving [facility] services upon discharge and she remains reluctant but open to continue discussion, politely noting that she does not want to address this topic further today. Discharge planning continues to be contingent on the patients prognosis and goals of care, as she is eligible for hospice services, and also retains the option to follow up with oncology if she continues to wish to peruse treatment. Per Hospitalist, discussions are ongoing and discharge readiness will be a slow progress. CM will continue to follow and support coordination of care when goals are better known. Discharge Potential Discharge Needs: Consult Consult Services Needed: Other (Oncology, Palliative) Anticipated Barriers to Discharge: Medical Status Patient/Family Education Needs: Review discharge instructions, discuss Ask Me Three Transportation: Private vehicle Plan: Anticipate, Nakita will discharge home with New [facility] RN/PT/OT (if agreeable) via private vehicle with son Annette once an acceptable discharge plan has been established. Nakita will follow up with her PCP and re-establish care with oncology, if that is the direction she wants to go. Patient will need close follow up with [facility], for assistance with community based support and resource coordination. Of note, it may be helpful for a staff member from [facility] to meet with patient prior to discharge to talk about home services in more detail. Social Determinants of Health Screening Will the Patient Participate in the Screening?: Unable to obtain
[2025-05-30] MEDS: MORPHine 2 MG/ML SYR 4 MG IVP (14:33)
[2025-05-30] MEDS: Ondansetron 4 MG/2 ML VIAL IVP (17:13)
[2025-05-30] MEDS: ACETAMINOPHEN 1,000 MG/100 ML BAG 400 MG IVPB (17:25)
[2025-05-30] MEDS: MORPHine 2 MG/ML SYR IVP ×3 (17:39→23:14)
[2025-05-30] MEDS: fentaNYL 50 MCG PATCH TD (17:40)
--- NOTE | 2025-05-30 19:59 | W.PM.PROGNOT ---
Date of Service Date of service: 05/30/25 Time of Service: 08:00 Assessment and Plan Assessment and plan (1) Non-small cell lung cancer metastatic to liver: Status: Acute Assessment and plan: Patient has a massive right upper lung tumor with metastases to liver and bone She is engaged with [facility] oncology Active symptoms of pain, nausea, vomiting, diarrhea She declines many recommended interventions She has complex descriptions of her reasoning for declining treatment, delivered with high energy She has extremely poor cancer prognosis due to delay in treatment She is at extremely high risk of life-threatening complications from tumor growth, including PE, respiratory failure, cardiac failure, spinal disease Discussed at length with patient's PCP and palliative specialist Recommendation at this time is hospice care May 29: Lengthy discussion with patient. She declined to view her CT showing the size of the tumor. She was, however, able to describe the location of the tumor, and verbalized understanding of the impact of the growing mass on adjacent structures. May 30: Increasing pain medication dosing. Discussed with nursing and palliative care staff: scheduling IV morphine 2 mg IV q2h in addition to PRNs. Patient considering fentanyl patch which is likely to provide a great deal of relief. 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 Patient castigates previous providers and previous nurses 2. Patient asks next provider to be the one who finds her diagnosis 3. Patient has complex explanations for why her condition is unique to her and her alone 4. Patient has complex explanations for why she can or cannot take a medication or accept a treatment 5. Patient unavailable for shared decision making, persisting in her explanations of side issues (3) Hypercoagulable state: Status: Acute Assessment and plan: High risk for thromboembolism Patient declines to accept recommended heparin products Patient declines to accept DOAC Patient declines to accept mechanical prophylaxis Ongoing attempts to explain risks of VTE and risk/benefit of preventive care (4) Cancer related pain: Status: Acute Assessment and plan: Continue PRN narcotics (5) Nausea & vomiting: Status: Acute Assessment and plan: - Patient's primary complaint is nausea and vomiting which is what brought her into the hospital - Of note she was recently discharged about a week ago on amoxicillin completed therapy for COPD exacerbation -Additionally, prior to that admission, she had been admitted about 2 weeks prior for nausea and vomiting that did not show source of infection was presumed to be secondary to her metastatic non-small cell lung carcinoma - Patient also reports that she has been drinking well water but reportedly ended up having Giardia and it - Awaiting C. difficile and stool studies, holding off on antibiotics at this time as imaging was negative and at this time there is no clear source of infection May 25: Improved nausea. Discussed home regimen. Diagnostics negative thus far. Continue VTE ppx enoxaparin. May 26: Patient declines LMWH. Some ongoing nausea. Approach is primarily to encourage her to return to oncology care as she has all the antiemetics at home that she is getting here. May 27: Patient declined medications and evaluation today. Will work with her on discharge plan as she is able. May 28-: No change in management (6) Diarrhea: Status: Acute Assessment and plan: Currently not stooling (7) Moderate protein-calorie malnutrition: Status: Acute Assessment and plan: Very poor appetite Nutrition consulted, patient declining assistance at this time (8) COPD (chronic obstructive pulmonary disease): Status: Chronic Assessment and plan: - Without acute exacerbation - Continue home inhaler regimen Subjective Subjective Interval history since last seen: Ms. Hancock is requesting more pain medication. Started IV narcotics last night - she feels that she has to wait too long for them to come. She is considering fentanyl patch. Son Darwin age 16 visited with patient's ex- (who does not recognize Darwin's gender). Ms. Hancock continues to have fever/tachycardia/tachypnea episodes around which resolve with pain medication. Exam Narrative Exam Narrative: General: This is an emotional, thin woman in active distress due to reported pain HEENT: Normocephalic, atraumatic CV: RRR Resp: CTAB Abd: soft, NTND MSK: voluntary motion x4 Neuro: awake, alert, no focal deficits Objective Last Vital Signs Temp 37.6 C H 05/30/25 19:01 Pulse 120 H 05/30/25 19:01 Resp 20 05/30/25 19:01 BP 106/54 L 05/30/25 17:49 Pulse Ox 91 L 05/30/25 19:01 Laboratory Results - last 24 hr 05/30/25 07:25 Free T4 1.39 Random Vancomycin 10.0 Time Spent with Patient Time Spent with Patient: 25-34 minutes Time was spent: preparing to see the patient(eg.review tests), obtaining and/or reviewing separately otained hiistory, ordering medications,tests, procedures, referring, communicating with other health child care worker, indepentently interpreting results, counseling the patient and care coordination
[2025-05-30] MEDS: Albuterol 2.5 MG/3 ML INH SOLN VIAL IH (23:10)
[2025-05-31] MEDS: POTASSIUM CHLORIDE/0.9% NACL 1,000 ML 75 MEQ IV ×2 (00:22→14:06)
[2025-05-31] MEDS: Normal Saline Flush 10 ML SYR IVP ×4 (01:42→19:57)
[2025-05-31] MEDS: CEFEPIME 2 GM in Normal Saline 100 ML IVPB ×3 (01:43→18:06)
[2025-05-31] MEDS: MORPHine 2 MG/ML SYR IVP ×9 (01:43→19:55)
[2025-05-31] MEDS: Acetaminophen 500 MG TAB 1000 MG PO ×3 (01:44→18:06)
[2025-05-31] MEDS: oxyCODONE 5 MG TAB 10 MG PO ×4 (01:58→21:22)
[2025-05-31 03:45] VITALS: BP 95/47; PULSE 136; RESP 18; TEMP 37.2; O2SAT 92
[2025-05-31] MEDS: Ipratropium/Albuterol 4 GM 120 PUFF INH IH ×2 (06:17→13:21)
[2025-05-31 07:43] VITALS: BP 87/56; PULSE 110; RESP 16; TEMP 37.5; O2SAT 91
[2025-05-31] MEDS: guaiFENesin 600 MG TABCR PO (09:56)
[2025-05-31] MEDS: oxyCODONE-CR 20 MG TABCR PO ×2 (09:56→23:09)
[2025-05-31] MEDS: Ondansetron 4 MG/2 ML VIAL IVP (09:57)
[2025-05-31 16:09] VITALS: BP 91/58; PULSE 107; RESP 16; TEMP 37.2; O2SAT 91
--- NOTE | 2025-05-31 18:05 | PGE_ITS ---
Date of Service Date of service: 05/31/25 Time of Service: 18:05 Assessment and Plan Assessment and plan (1) Non-small cell lung cancer metastatic to liver: Status: Acute Assessment and plan: Patient has a massive right upper lung tumor with metastases to liver and bone She is engaged with [facility] oncology Active symptoms of pain, nausea, vomiting, diarrhea She declines many recommended interventions She has complex descriptions of her reasoning for declining treatment, delivered with high energy She has extremely poor cancer prognosis due to delay in treatment She is at extremely high risk of life-threatening complications from tumor growth, including PE, respiratory failure, cardiac failure, spinal disease Discussed at length with patient's PCP and palliative specialist, recommendation at this time is hospice care Started fentanyl patch 05/30, some improvement in pain. I tried to address that she has no chance to get treatment while here, but she deflects this and demands we figure out the other disease causing all of her symptoms. I think her symptoms are attributable to her cancer and associated medications. She did have negative infectious work up after fevers 05/29, no recurrence since. 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 Patient castigates previous providers and previous nurses 2. Patient asks next provider to be the one who finds her diagnosis 3. Patient has complex explanations for why her condition is unique to her and her alone 4. Patient has complex explanations for why she can or cannot take a medication or accept a treatment 5. Patient unavailable for shared decision making, persisting in her explanations of side issues At this point the barriers to her getting treatment are psychiatric. She may benefit from neuroleptic therapy, but I don't think we can force this on her. (3) Hypercoagulable state: Status: Acute Assessment and plan: High risk for thromboembolism, declining oral/subcut/mechanical prophylaxis. (4) Cancer related pain: Status: Acute Assessment and plan: Continue PRN narcotics (5) Nausea & vomiting: Status: Acute Assessment and plan: Having intermittent symptoms, related to her cancer, has prn medicaitons (6) Moderate protein-calorie malnutrition: Status: Acute Assessment and plan: Very poor appetite Nutrition consulted, patient declining assistance at this time (7) COPD (chronic obstructive pulmonary disease): Status: Chronic Assessment and plan: - Without acute exacerbation - Continue home inhaler regimen when she accepts it. Subjective Subjective Patient reports: voiding w/o difficulty and fever; denies diarrhea Interval history since last seen: Events: Started fentanyl patch 05/30. Still in a lot of pain but she does think patch helping at night. She thinks she has another disease in addition to her lung cancer causing her pain. She is hot and cold. Exam Narrative Exam Narrative: General: This is an emotional, thin woman in active distress due to reported pain, shivering at times, in blankets, has heating pad and ice pack in her bed. HEENT: Normocephalic, atraumatic CV: RRR Resp: CTAB MSK: voluntary motion x4 Neuro: awake, alert, no focal deficits psych: mildly agitated, delusional thoughts regarding her illness, poor insight Objective Last Vital Signs Temp 37.2 C 05/31/25 16:09 Pulse 107 H 05/31/25 16:09 Resp 16 05/31/25 16:09 BP 91/58 L 05/31/25 16:09 Pulse Ox 91 L 05/31/25 16:09 Time Spent with Patient Time Spent with Patient: 35-49 minutes Time was spent: preparing to see the patient(eg.review tests), obtaining and/or reviewing separately otained hiistory, ordering medications,tests, procedures, referring, communicating with other health housekeeper child care, indepentently interpreting results, counseling the patient and care coordination
[2025-05-31 19:14] VITALS: BP 125/63; PULSE 129; RESP 18; TEMP 37.2; O2SAT 83
[2025-05-31] MEDS: Albuterol 2.5 MG/3 ML INH SOLN VIAL IH (19:46)
[2025-05-31] MEDS: Budesonide/Formoterol 160/4.5 6 GM 60 PUFF INH IH (19:46)
[2025-05-31 21:07] VITALS: BP 92/46
[2025-05-31 23:02] VITALS: BP 96/54; PULSE 98; RESP 16; TEMP 37.2; O2SAT 96
[2025-06-01] VITALS (11 sets, daily range): BP systolic 90–99; BP diastolic 50–61; PULSE 98–108; RESP 16–19; TEMP 36.1–38.9; O2SAT 93–99
[2025-06-01] MEDS: MORPHine 2 MG/ML SYR IVP ×6 (00:17→17:03)
[2025-06-01] MEDS: CEFEPIME 2 GM in Normal Saline 100 ML IVPB ×3 (02:09→17:30)
[2025-06-01] MEDS: Acetaminophen 500 MG TAB 1000 MG PO ×3 (02:09→17:30)
[2025-06-01] MEDS: oxyCODONE 5 MG TAB 10 MG PO ×5 (02:22→23:40)
[2025-06-01] MEDS: Ipratropium/Albuterol 4 GM 120 PUFF INH IH ×2 (05:43→14:30)
[2025-06-01] MEDS: Normal Saline Flush 10 ML SYR IVP ×4 (07:06→20:39)
[2025-06-01] MEDS: Budesonide/Formoterol 160/4.5 6 GM 60 PUFF INH IH ×2 (08:37→20:05)
[2025-06-01] MEDS: LORazepam 0.5 MG TAB 1 MG PO ×2 (08:56→15:14)
[2025-06-01] MEDS: POTASSIUM CHLORIDE/0.9% NACL 1,000 ML 75 MEQ IV (09:00)
[2025-06-01] MEDS: Ondansetron 4 MG/2 ML VIAL IVP (09:12)
[2025-06-01] MEDS: guaiFENesin 600 MG TABCR PO ×2 (10:21→23:43)
[2025-06-01] MEDS: oxyCODONE-CR 20 MG TABCR PO ×2 (10:21→21:21)
--- NOTE | 2025-06-01 18:02 | W.PM.PROGNOT ---
Date of Service Date of service: 06/01/25 Time of Service: 18:02 Assessment and Plan Assessment and plan (1) Non-small cell lung cancer metastatic to liver: Status: Acute Assessment and plan: Patient has a massive right upper lung tumor with metastases to liver and bone She is engaged with [facility] oncology Active symptoms of pain, nausea, vomiting, diarrhea She declines many recommended interventions She has complex descriptions of her reasoning for declining treatment, delivered with high energy She has extremely poor cancer prognosis due to delay in treatment She is at extremely high risk of life-threatening complications from tumor growth, including PE, respiratory failure, cardiac failure, spinal disease Discussed at length with patient's PCP and palliative specialist, recommendation at this time is hospice care Started fentanyl patch 05/30, some improvement in pain. I communicated that her pain and inflammatory symptoms are attributable to her cancer. Try to move away from IV therapy, morphine to q3 and change to prn. Today she is willing to try adjuvant therapy for pain. I looked at 2013 ACCP guidelines for symptom management in lung cancer. She describes pain as neuropathic, she doesn't tolerate gabapentinoids, willing to try carbemazepine. Renal/liver function has been good. 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 Patient castigates previous providers and previous nurses 2. Patient asks next provider to be the one who finds her diagnosis 3. Patient has complex explanations for why her condition is unique to her and her alone 4. Patient has complex explanations for why she can or cannot take a medication or accept a treatment 5. Patient unavailable for shared decision making, persisting in her explanations of side issues At this point the barriers to her getting treatment are psychiatric. Mood issues may improve with carbemazepine as well. (3) Hypercoagulable state: Status: Acute Assessment and plan: High risk for thromboembolism, declining oral/subcut/mechanical prophylaxis. (4) Cancer related pain: Status: Acute Assessment and plan: Continue opiods as above, move to oral/patch only, trying carbemazepine. Could also try tizanidine, but we don't have it here. (5) Nausea & vomiting: Status: Acute Assessment and plan: Having intermittent symptoms, related to her cancer, has prn medicaitons (6) Moderate protein-calorie malnutrition: Status: Acute Assessment and plan: Very poor appetite Nutrition consulted, patient declining assistance at this time (7) COPD (chronic obstructive pulmonary disease): Status: Chronic Assessment and plan: - Without acute exacerbation - Continue home inhaler regimen when she accepts it. (8) Fever: Status: Acute Assessment and plan: She did have negative infectious work up including blood cultures, u/a, CT CAP. I think intermittent fevers are related to her malignancy. Stopping antibiotics today. Subjective Subjective Patient reports: no new complaints, still having pain, voiding w/o difficulty and fever; denies diarrhea, vomiting or shortness of breath Interval history since last seen: Fever again today, comes/goes. Pain is her main concern, feels in back, arms, legs. Feels shooting, neuropathic. Exam Narrative Exam Narrative: General: This is an emotional, thin woman, heat pads in bed, looks more comfortable today. CV: RRR Resp: CTAB MSK: voluntary motion x4 Neuro: awake, alert, no focal deficits psych: still with delusional thoughts regarding her illness, poor insight, but less agitated today. Objective Last Vital Signs Temp 37.2 C 06/01/25 15:05 Pulse 100 H 06/01/25 15:05 Resp 18 06/01/25 15:05 BP 90/61 L 06/01/25 15:05 Pulse Ox 96 06/01/25 15:05 Time Spent with Patient Time Spent with Patient: 35-49 minutes Time was spent: preparing to see the patient(eg.review tests), obtaining and/or reviewing separately otained hiistory, ordering medications,tests, procedures, referring, communicating with other health direct care specialist, indepentently interpreting results, counseling the patient and care coordination
[2025-06-01] MEDS: carBAMazepine 200 MG TAB 100 MG PO (21:22)
[2025-06-01] MEDS: ACETAMINOPHEN 1,000 MG/100 ML BAG 400 MG IVPB (23:44)
[2025-06-02] VITALS (11 sets, daily range): BP systolic 81–115; BP diastolic 49–67; PULSE 94–130; RESP 16–20; TEMP 36.2–40.4; O2SAT 90–94
--- NOTE | 2025-06-02 | DI.RAD_ITS ---
Exam(s) XR PORTABLE CHEST AP EXAM: XR PORTABLE CHEST AP CLINICAL HISTORY: fever TECHNIQUE: 2D digital imaging was performed. COMPARISON: CR XR CHEST 1V IN DI DEPT from 05/14/[address] CHEST PE ABD PELVIS W from 05/25/2025 FINDINGS: There is overlying oxygen tubing. LUNGS: The left lung is clear. There has been no gross interval change in the previously noted right upper lobe mass. HEART: Normal size. AORTA: Normal diameter. BONES: Levo rotoscoliosis of the thoracic spine. Soft tissues: Unremarkable. IMPRESSION: Stable appearance of right upper lobe mass. No acute findings. The preliminary [facility] report was reviewed. DATA REPOSITORY: RADIATION DOSE DELIVERED:
[2025-06-02] MEDS: LORazepam 0.5 MG TAB 1 MG PO ×2 (00:50→16:22)
[2025-06-02] MEDS: Acetaminophen 500 MG TAB 1000 MG PO ×3 (01:21→18:39)
[2025-06-02] MEDS: ACETAMINOPHEN 1,000 MG/100 ML BAG 400 MG IVPB (04:01)
[2025-06-02] MEDS: Budesonide/Formoterol 160/4.5 6 GM 60 PUFF INH IH (06:09)
[2025-06-02 06:41] LABS: Abs Immature Grans 0.06 10^3/uL (0.0-0.06); HCT 24.3 % (36.0-46.0); HGB 7.8 g/dL (11.2-15.7); Immature Grans % 0.5 %; MCH 27.7 pg (27.0-33.0); MCHC 32.1 % (32.0-36.0); MCV 86 fL (80-95); MPV 8.3 fL (8.0-11.0); Platelet Count 682 10^3/uL (130-400); RBC 2.82 10^6/uL (3.93-5.22); RDW 13.7 % (11.7-14.6); RDW-SD 43.0 fL; WBC 11.24 10^3/uL (4.4-10.8)
[2025-06-02 07:00] LABS: Magnesium 1.4 mg/dL (1.6-2.6)
[2025-06-02 07:01] LABS: Anion Gap 9.5 mmol/L (3-11); BUN 7 mg/dL (9-23); CO2 27.5 mmol/L (20.0-31.0); Calcium 8.5 mg/dL (8.3-10.6); Chloride 102 mmol/L (98-107); Glucose 102 mg/dL (74-106); Potassium 3.2 mmol/L (3.5-5.1); Sodium 139 mmol/L (136-145)
[2025-06-02 07:29] LABS: Hypochromasia 1+
[2025-06-02] MEDS: Ipratropium/Albuterol 4 GM 120 PUFF INH IH ×2 (08:07→13:18)
[2025-06-02] MEDS: oxyCODONE 5 MG TAB 10 MG PO ×3 (08:11→22:39)
[2025-06-02] MEDS: Enoxaparin 40 MG/0.4 ML SYR SC (08:12)
[2025-06-02] MEDS: Normal Saline Flush 10 ML SYR IVP ×2 (08:12→20:07)
[2025-06-02] MEDS: carBAMazepine 200 MG TAB 100 MG PO ×2 (08:24→20:06)
[2025-06-02] MEDS: oxyCODONE-CR 20 MG TABCR PO ×2 (10:32→18:39)
[2025-06-02 10:43] LABS: Lab Add On Test DONE
[2025-06-02 11:02] LABS: ALT 8 U/L (10-49); AST 12 U/L (<34); Albumin 3.1 g/dL (3.4-5.0); Alkaline Phosphatase 61 U/L (46-116); Bilirubin, Direct 0.1 mg/dL (<=0.3); Bilirubin, Total 0.30 mg/dL (0.2-1.2); Total Protein 5.5 g/dL (5.7-8.2)
--- NOTE | 2025-06-02 11:07 | W.PALPGNOTE ---
Date of service: 06/02/25 Time of Service: 09:50 Subjective Subjective Interval history since last seen: Follow-up visit with Nakita this morning. Please see my last note for more complete hx vis-a-vis palliative care topics. Recent notes and labs reviewed. Please see Dr. Madera's excellent 06/01/2025 progress notes with [place] possible barriers to workng withe patient and understanding her reaction to medical reccomendations Initially Nakita told me she was in too much pain to talk to me. Her affect was angry for the initial part of our visit. However, as she realized that she was the one in charge of the visit, she relaxed and enjoyed sharing stories with me. She declines to answer most of my questions, advising me to read Dr. Madera's notes. However, she was willing to share the following information. Pain episodes: she believes these are her migraines with seizures and auras which she has had since childhood. She notes that over the last few days she seems to have these episodes in the afternoon. She agrees that she had 1 of these episodes yesterday afternoon between 1 and 3 PM. During this time she required lorazepam 1 mg p.o., oxycodone 10 mg p.o., total of 4 mg morphine sulfate IV and ondansetron 4 mg IV. She said this seemed to help a little . She was started on fentanyl 50 mcg 3 days ago and continues on OxyContin 20 mg every 12 hours. She says the zofrn seems to help a little bit with her nausea. She thinks she is taking it about once a day (this is similar to prior to admission). #Goals of care: Attempted to Explore with patient, and get a better understanding, up what her goals are: If she hoping to return home and if so when? under what circumstances would she feel ready to return home? How will she know when it is time for her to return home? She became very mad and told me that she had told people this ready and would not talk to discuss it again. She feels that people are telling stories about me which are not true . I offered that I wanted her to feel safe and in control when she returned home and needed to know what being in a safe and in-control situation would look like for her. She refused to discuss further. #Pain: Prior to this hospital admission, Nakita was very reluctant to take any pain medication and her pain was undertreated. There has been a little bit of improvement and the improvement in her pain. However, not enough and Dr. Madera and I have a plan to move forward . She is glad that the carbamazepine is being added to her regimen. She also explains that lorazepam is being used as an adjunct to the pain medicine and she agrees that it seems to be contributing positively to pain management, making the pain medications worked better. MME last 24 hours is 252 mg. (MME was 114 mg when I saw her 6 days ago) When I ask if she is feeling better equipped to manage her own pain with these medications (the oral short and long acting opioids as well as the fentanyl patch) when she returns home, she gets angry and refuses to discuss this with me. I explained to her that the goal is for her to feel that she is in control and can manage her pain at home. She disagrees with me by explaining that you doctors have not told me what to do at all in the past and we are finally beginning to move in the right direction. Please note that my concern with Nakita is that she has historically been RELUCTANT to use opioid pain medications as an outpatient (either not filling a prescription or filling prescription and then not taking the medication). Recommendations regarding pain management: -Lorazepam 1 mg 3 times daily seems to be a positive addition to managing her symptoms and consider scheduling 1 mg TID lorazepam. There is theoretical interaction with opioids. However given current clinical situation, I think this is the best path forward. – Optimally, would switch to one long-acting opioid. (Rather than OxyContin and fentanyl patch). I am not sure Nakita will agree with this. Recommend increasing fentanyl patch to 75 mcg, which should easily cover discontinuing the Oxycontin. May need further increase to 100 mg MCG going forward. - Try to switch to all oral opioids in anticipation of discharging home. -If she is resistant to stopping the IV morphine, consider using oral immediate release morphine or hydromorphone as short acting opioid (these may act a little faster). -Consider higher dose of short acting oxycodone for these intense afternoon episodes of pain based on opioid use yesterday afternoon, consider giving oxycodone 20 mg with onset of pain episode (or MS IR's 30 mg orally or hydromorphone 6 or 8 mg orally). # Mental health: Possible personality disorder/possible delusions: See 's excellent summary on his June 01, note. - Patient seems to need to be heard. She was most comfortable talking and telling stories and explaining her medical situation. Any time I attempt to share infortma -My goal as the palliative care provider at this point is to create a space in which she feels safe and could potentially could use to discuss goals and goals of care when she is ready -Until patient is willing to engage in discussing what she does and does not feel comfortable with as far as managing pain at home, this is going to make discharge planning challenging at best. Another member of the palliative team is available to check in with her later this week if she is still here. Otherwise we will follow her as an outpatient.. Objective Last Vital Signs Temp 37.1 C 06/02/25 07:37 Pulse 97 H 06/02/25 07:37 Resp 16 06/02/25 07:37 BP 98/50 L 06/02/25 09:42 Pulse Ox 92 06/02/25 07:37 Laboratory Results - last 24 hr 06/02/25 06:27 WBC 11.24 H RBC 2.82 L Hgb 7.8 L Hct 24.3 L MCV 86 MCH 27.7 MCHC 32.1 RDW 13.7 Plt Count 682 H MPV 8.3 Immature Gran % 0.5 Neutrophils % 79.6 Lymphocytes % 8.3 Monocytes % 11.2 Eosinophils % 0.1 Basophils % 0.3 Nucleated RBC % 0.0 Absolute Neutrophils 8.95 H Absolute Lymphocytes 0.93 L Absolute Monocytes 1.26 H Absolute Eosinophils 0.01 Absolute Basophils 0.03 RBC Morphology See Below Hypochromasia 1+ Sodium 139 Potassium 3.2 L Chloride 102 Carbon Dioxide 27.5 Anion Gap 9.5 BUN 7 L Creatinine 0.5 L Est GFR (CKD-EPI 2020) 134.96 Glucose 102 Calcium 8.5 Magnesium 1.4 L Total Bilirubin 0.30 Conjugated Bilirubin 0.1 AST 12 ALT 8 L Alkaline Phosphatase 61 Total Protein 5.5 L Albumin 3.1 L Add-On Test Request DONE
[2025-06-02] MEDS: MAGNESIUM SULFATE 2 GM/50 ML BAG IV_INF (12:17)
[2025-06-02] MEDS: MORPHine 2 MG/ML SYR IVP ×3 (12:18→20:13)
[2025-06-02] MEDS: POTASSIUM CHLORIDE 20 MEQ/100 ML BAG 50 MEQ IV_INF (14:19)
--- NOTE | 2025-06-02 16:16 | W.PM.PROGNOT ---
Date of Service Date of service: 06/02/25 Time of Service: 16:56 Assessment and Plan Assessment and plan (1) Non-small cell lung cancer metastatic to liver: Status: Acute Assessment and plan: Patient has a massive right upper lung tumor with metastases to liver and bone She is engaged with [facility] oncology Active symptoms of pain, nausea, vomiting, diarrhea She declines many recommended interventions She has complex descriptions of her reasoning for declining treatment, delivered with high energy She has extremely poor cancer prognosis due to delay in treatment She is at extremely high risk of life-threatening complications from tumor growth, including PE, respiratory failure, cardiac failure, spinal disease This has been discussed at length with patient's PCP and palliative specialist, recommendation at this time is hospice care We have communicated clearly our impression that her pain and inflammatory symptoms are attributable to her cancer. Started fentanyl patch 05/30, some improvement in pain. Appreciate palliative input. Will stop MS contin and increase fentanyl, further space morphine. She wanted to try adjuvant therapy for pain. 2013 ACCP guidelines for symptom management in lung cancer reviewed. She describes pain as neuropathic, she doesn't tolerate gabapentinoids, tolerating carbemazepine starting 11/16 pm with some apparent improvement, continue. Renal/liver function has been good. 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 Patient castigates previous providers and previous nurses 2. Patient asks next provider to be the one who finds her diagnosis 3. Patient has complex explanations for why her condition is unique to her and her alone 4. Patient has complex explanations for why she can or cannot take a medication or accept a treatment 5. Patient unavailable for shared decision making, persisting in her explanations of side issues At this point the barriers to her getting treatment are psychiatric. Mood issues may improve with carbemazepine as well. Continuing this. (3) Hypercoagulable state: Status: Acute Assessment and plan: High risk for thromboembolism, declining oral/subcut/mechanical prophylaxis. (4) Cancer related pain: Status: Acute Assessment and plan: Continue opiods as above, move to oral/patch only, trying carbemazepine as above. Could also try tizanidine, but we don't have it here. (5) Nausea & vomiting: Status: Acute Assessment and plan: Having intermittent symptoms, related to her cancer, has prn medicaitons (6) Moderate protein-calorie malnutrition: Status: Acute Assessment and plan: Very poor appetite Nutrition consulted, patient declining assistance at this time (7) COPD (chronic obstructive pulmonary disease): Status: Chronic Assessment and plan: - Without acute exacerbation - Continue home inhaler regimen when she accepts it. (8) Fever: Status: Acute Assessment and plan: She did have negative infectious work up including blood cultures, u/a, CT CAP. Antibiotics stopped 06/01 and fevers have not recurred.. (9) Anemia: Status: Chronic Assessment and plan: Drop from 10-11 range to 7.8. Normocytic. Hypochromasia. No signs hemolysis, bili normal. She is at risk for GI loss and nutritional deficiency. Get iron/b12/folate. Occult blood stools. As above nl bili not c/w hemolysis, CBC does not suggest, but get LDH with morning labs. Subjective Subjective Patient reports: tolerating a regular diet; denies diarrhea, nausea, vomiting, shortness of breath or fever Interval history since last seen: 24 hr: Started carbemazepine to help with pain Stopped antibiotics She feels like pain a little better. Less allodynia, which she was feeling in extremities. She is less sweaty and fatigued. She hasn't noted any bleeding. No black/bloody stools, BM this morning Exam Narrative Exam Narrative: General: This is an emotional, thin woman, heat pads in bed, looks more comfortable today, no longer clammy. CV: RRR Resp: clear, nl effort ABD: Soft, mild epigastric tenderness to palpation, no guarding. no masses MSK: voluntary motion x4. Neuro: awake, alert, no focal deficits psych: still with some delusional thoughts regarding her illness, poor insight, but less agitated Objective Last Vital Signs Temp 36.8 C 06/02/25 14:59 Pulse 94 H 06/02/25 14:59 Resp 20 06/02/25 14:59 BP 88/52 L 06/02/25 14:59 Pulse Ox 91 L 06/02/25 14:59 Laboratory Results - last 24 hr 06/02/25 06:27 WBC 11.24 H RBC 2.82 L Hgb 7.8 L Hct 24.3 L MCV 86 MCH 27.7 MCHC 32.1 RDW 13.7 Plt Count 682 H MPV 8.3 Immature Gran % 0.5 Neutrophils % 79.6 Lymphocytes % 8.3 Monocytes % 11.2 Eosinophils % 0.1 Basophils % 0.3 Nucleated RBC % 0.0 Absolute Neutrophils 8.95 H Absolute Lymphocytes 0.93 L Absolute Monocytes 1.26 H Absolute Eosinophils 0.01 Absolute Basophils 0.03 RBC Morphology See Below Hypochromasia 1+ Sodium 139 Potassium 3.2 L Chloride 102 Carbon Dioxide 27.5 Anion Gap 9.5 BUN 7 L Creatinine 0.5 L Est GFR (CKD-EPI 2020) 134.96 Glucose 102 Calcium 8.5 Magnesium 1.4 L Total Bilirubin 0.30 Conjugated Bilirubin 0.1 AST 12 ALT 8 L Alkaline Phosphatase 61 Total Protein 5.5 L Albumin 3.1 L Add-On Test Request DONE Time Spent with Patient Time Spent with Patient: 35-49 minutes Time was spent: preparing to see the patient(eg.review tests), obtaining and/or reviewing separately otained hiistory, ordering medications,tests, procedures, referring, communicating with other health foster care therapist, indepentently interpreting results, counseling the patient and care coordination
--- NOTE | 2025-06-02 16:51 | CMPROGNOTE_ITS ---
Date of service: 06/02/25 Time of Service: 16:51 Care Management Progress Note Progress Note Text Progress Note Text: Nakita was lying semi-reclined in bed when CM met with her today. Nakita was pleasant with CM, we are known to each other from previous admissions, but Nakita stated that she wanted to take a nap and wanted to keep the conversation short. Nakita stated that her pain is slightly better, but was still noted to grimace with movement. She was unable to state what seemed to be working for her pain, she was unsure if it was the Fentanyl patch. Nakita's patch dose will be increased tonight to 75mcg from 50mcg. She is still receiving IV T ylenol, pretty consistently q 8h, her morphine dosing is being stretched out between doses, and now she can receive only q4h, as opposed to q3h, she is receiving PO oxycodone fairly constistently q8h as well. Discharge Potential Discharge Needs: PCP F/U Appt and Other (oncology, palliative) Anticipated Barriers to Discharge: Medical Status Patient/Family Education Needs: Review discharge instructions, discuss Ask Me Three Transportation: Private vehicle Plan: Anticipate Nakita will discharge home with new [facility] RN/PT/OT/GRAIN SHOVELER via private vehicle with son Annette once an acceptable discharge plan has been established. She will f/u with her PCP and her oncology team. She will continue to be followed to Palliative Care CM will continue to follow closely. Social Determinants of Health Screening Will the Patient Participate in the Screening?: Unable to obtain
[2025-06-02] MEDS: fentaNYL 75 MCG PATCH TD (18:41)
[2025-06-02] MEDS: Ondansetron 4 MG/2 ML VIAL IVP (18:47)
[2025-06-02] MEDS: Ibuprofen 600 MG TAB PO (21:28)
[2025-06-02 21:49] LABS: Abs Immature Grans 0.07 10^3/uL (0.0-0.06); HCT 28.3 % (36.0-46.0); HGB 9.4 g/dL (11.2-15.7); Immature Grans % 0.5 %; MCH 28.0 pg (27.0-33.0); MCHC 33.2 % (32.0-36.0); MCV 84 fL (80-95); MPV 8.2 fL (8.0-11.0); RBC 3.36 10^6/uL (3.93-5.22); RDW 14.0 % (11.7-14.6); RDW-SD 43.0 fL; WBC 13.03 10^3/uL (4.4-10.8)
[2025-06-02 21:56] LABS: ESR 102 mm/hr (0-30)
--- NOTE | 2025-06-02 21:58 | DI.VRAD_ITS ---
PROCEDURE INFORMATION: Exam: XR Chest Exam date and time: 06/02/2025 9:46 PM Age: 59 years old Clinical indication: Fever TECHNIQUE: Imaging protocol: Radiologic exam of the chest. Views: 1 view. COMPARISON: CT CHEST PE ABD PELVIS W 05/25/2025 2:42 AM FINDINGS: Lungs: A confluence area of density identified in the right upper lobe previously demonstrated to be a right upper lobe lung mass. Pleural spaces: Unremarkable. No pleural effusion. No pneumothorax. Heart/Mediastinum: Unremarkable. No cardiomegaly. Bones/joints: Unremarkable. IMPRESSION: Right upper lobe lung mass. Underlying infiltrate can not be excluded. Dictated and Authenticated by: Kenroy Belle MD. Orderin Con Butterfield MD
[2025-06-02 22:10] LABS: Platelet Count 849 10^3/uL (130-400); RBC Morphology Normal
[2025-06-02 22:13] LABS: C-Reactive Protein 10.48 mg/dL (<=0.50); Creatine Kinase 33 U/L (34-145)
[2025-06-02 22:14] LABS: Troponin I 4 ng/L (<35)
[2025-06-02 22:18] LABS: Procalcitonin 9.31 ng/mL
[2025-06-03] VITALS (7 sets, daily range): BP systolic 94–103; BP diastolic 45–70; PULSE 88–119; RESP 16–20; TEMP 36.7–38.4; O2SAT 92–98
[2025-06-03] MEDS: Acetaminophen 500 MG TAB 1000 MG PO ×3 (02:56→17:49)
[2025-06-03] MEDS: oxyCODONE 5 MG TAB 10 MG PO ×4 (02:57→17:49)
[2025-06-03 05:23] LABS: Glucose Negative (Negative)
[2025-06-03] MEDS: Ipratropium/Albuterol 4 GM 120 PUFF INH IH ×2 (05:50→14:01)
--- NOTE | 2025-06-03 05:54 | W.EVENT ---
Date of service: 06/02/25 Time of Service: 21:15 Event Note: Nursing staff called stated the patient had a fever over 103. I went to examine the patient and she did continue to complain of significant pain all over. Her only new medication is Tegretol which can cause fevers. I did initiate a sepsis workup including urinalysis chest x-ray CBC procalcitonin and inflammatory markers. Patient's white count is 13,000 which is about the same as was on the hemoglobin hematocrit 9.4 and 28.3 platelet count did elevate 849. There does appear to be a mild left shift. ESR is 102 but has to be viewed in light of her cancer diagnosis. Her potassium is low at 3.2 so I will replace this. Magnesium is low 1.4 so I will replace this as well. chest x-ray shows right upper lobe lung mass underlying infiltrate cannot be excluded. Physical exam Ice packs in place bilateral axilla regular rate and rhythm no murmur rubs or gallops lungs clear to auscultation Time Spent with Patient Time spent in critical care(minutes): 15 Time Spent Included: Coordination of care, Chart review, Time at immediate bedside and Discussing critically ill care with other medical staff
[2025-06-03 07:21] LABS: Iron 6 ug/dL (50-170); Total Iron Binding Capacity 172 ug/dL (250-425); Transferrin Sat 3 % (15-50)
[2025-06-03 07:24] LABS: Vitamin B12 1017 pg/mL (211-911)
[2025-06-03 07:26] LABS: Anion Gap 9.6 mmol/L (3-11); BUN 8 mg/dL (9-23); CO2 28.5 mmol/L (20.0-31.0); Calcium 8.2 mg/dL (8.3-10.6); Chloride 100 mmol/L (98-107); Glucose 117 mg/dL (74-106); Potassium 3.1 mmol/L (3.5-5.1); Sodium 138 mmol/L (136-145)
[2025-06-03 07:27] LABS: Magnesium 1.7 mg/dL (1.6-2.6)
[2025-06-03 07:30] LABS: LDH 152 U/L (120-246)
[2025-06-03 07:32] LABS: Ferritin 261 ng/mL (7-271); Folate 19.9 ng/mL (>5.38)
--- NOTE | 2025-06-03 08:32 | PDOC.CMPRO ---
Date of service: 06/03/25 Time of Service: 08:32 Care Management Progress Note Progress Note Text Progress Note Text: Nakita continues to spike fevers. Last night she was noted to have a temp of 103, septic workup was started. Changes continue to be made to her med regime. Today Nakita was sleeping, or pretending to sleep, on 3 seperate occasions. She did not rouse to her name being called or to light touch. As Nakita stuggles with comfort, CM did not attempt to rouse her vigorously. Discharge Potential Discharge Needs: PCP F/U Appt and Other (oncology, palliative) Anticipated Barriers to Discharge: Medical Status (Nakita continues to have fevers) Patient/Family Education Needs: Review discharge instructions, discuss Ask Me Three Transportation: Private vehicle (with her son) Plan: Anticipate Nakita will discharge home with new [facility] RN/PT/OT/[employer] via private vehicle with son Annette once an acceptable discharge plan has been established. She will f/u with her PCP and her oncology team. She will continue to be followed to Palliative Care. CM will continue to follow closely. Social Determinants of Health Screening Will the Patient Participate in the Screening?: Unable to obtain
[2025-06-03] MEDS: Pantoprazole 40 MG VIAL IVP (08:34)
[2025-06-03] MEDS: Normal Saline Flush 10 ML SYR IVP ×3 (08:35→23:09)
[2025-06-03] MEDS: carBAMazepine 200 MG TAB 100 MG PO ×2 (08:38→20:02)
[2025-06-03] MEDS: Budesonide/Formoterol 160/4.5 6 GM 60 PUFF INH IH ×2 (09:01→20:00)
[2025-06-03] MEDS: POTASSIUM CHLORIDE 20 MEQ/100 ML BAG 50 MEQ IV_INF ×2 (11:01→13:24)
--- NOTE | 2025-06-03 14:59 | PGE_ITS ---
Date of Service Date of service: 06/03/25 Time of Service: 14:59 Assessment and Plan Assessment and plan (1) Non-small cell lung cancer metastatic to liver: Status: Acute Assessment and plan: Patient has a massive right upper lung tumor with metastases to liver and bone She is engaged with [facility] oncology Active symptoms of pain, nausea, vomiting, diarrhea She declines many recommended interventions She has complex descriptions of her reasoning for declining treatment, delivered with high energy She has extremely poor cancer prognosis due to delay in treatment She is at extremely high risk of life-threatening complications from tumor growth, including PE, respiratory failure, cardiac failure, spinal disease This has been discussed at length with patient's PCP and palliative specialist, recommendation at this time is hospice care We have communicated clearly our impression that her pain and inflammatory symptoms are attributable to her cancer. We are moving towards discharge as she would like to follow up for treatment options with oncology. 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 Patient castigates previous providers and previous nurses 2. Patient asks next provider to be the one who finds her diagnosis 3. Patient has complex explanations for why her condition is unique to her and her alone 4. Patient has complex explanations for why she can or cannot take a medication or accept a treatment 5. Patient unavailable for shared decision making, persisting in her explanations of side issues At this point the barriers to her getting treatment are psychiatric. Mood issues may improve with carbemazepine as well. Continuing this. (3) Cancer related pain: Status: Acute Assessment and plan: Started fentanyl patch 05/30, some improvement in pain. Appreciate palliative input. After 06/02 PM dose, stopped MS contin and increased fentanyl to 75. Further spaced morphine, only give if oxycodone doesn't help. She wanted to try adjuvant therapy for pain. 2013 ACCP guidelines for symptom management in lung cancer reviewed. She describes pain as neuropathic, she doesn't tolerate gabapentinoids, tolerating carbemazepine starting 1116 pm with some apparent improvement, continue. Renal/liver function has been good. She also brought up celecoxib, which she took before. We decided to resume this starting low dose in evening. (4) Nausea & vomiting: Status: Acute Assessment and plan: Having intermittent symptoms, related to her cancer, has prn medicaitons (5) Moderate protein-calorie malnutrition: Status: Acute Assessment and plan: Very poor appetite Nutrition consulted, patient declining assistance at this time (6) COPD (chronic obstructive pulmonary disease): Status: Chronic Assessment and plan: - Without acute exacerbation - Continue home inhaler regimen when she accepts it. (7) Fever: Status: Acute Assessment and plan: She did have negative infectious work up including blood cultures, u/a, CT CAP. Antibiotics stopped 06/01 and fevers recurred 06/02 night, but not persistent. Inflammatory markers high. I still think this is cancer related, no antibiotics but follow cultures. (8) Anemia: Status: Chronic Assessment and plan: Drop from 10-11 range to 7.8. Normocytic. Hypochromasia. No signs hemolysis, bili normal. Repeat overnight back to 9.4. She is at risk for GI loss and nutritional deficiency. Get b12/folate normal but iron low, will replace IV. Occult blood stool pending. Made PPI daily dose. As above nl bili not c/w hemolysis, CBC does not suggest, LDH normal as well (9) Hypokalemia: Status: Acute Assessment and plan: Having difficulty with IV, she would like to try oral. Subjective Subjective Patient reports: tolerating a regular diet and voiding w/o difficulty; denies nausea, vomiting, shortness of breath or fever Interval history since last seen: Events: Fever overnight. Repeat labs done, but no antibiotics Stopped MS contin after increasing fentanyl patch She feels better than last night. Pain is still bad but pain all over is better since tegretal. Stools are loose but no blood, has had 2 in last day. Exam Narrative Exam Narrative: General: This is an emotional, thin woman, heat pads and ice in bed, looks comfortable today, not clammy. CV: RRR no murmur Resp: CTAb x diminished right side. nl effort ABD: Soft, non-tender, palpation, no guarding. no masses Neuro: awake, alert, no focal deficits psych: less delusional thoughts regarding her illness, less agitated Objective Last Vital Signs Temp 36.7 C 06/03/25 11:21 Pulse 94 H 06/03/25 11:21 Resp 17 06/03/25 11:21 BP 99/50 L 06/03/25 11:21 Pulse Ox 98 06/03/25 11:21 Laboratory Results - last 24 hr 06/02/25 06/03/25 06/03/25 21:35 05:08 05:52 WBC 13.03 H RBC 3.36 L Hgb 9.4 L Hct 28.3 L MCV 84 MCH 28.0 MCHC 33.2 RDW 14.0 Plt Count 849 H* MPV 8.2 Immature Gran % 0.5 Neutrophils % 85.6 Lymphocytes % 4.8 Monocytes % 8.7 Eosinophils % 0.1 Basophils % 0.3 Nucleated RBC % 0.0 Absolute Neutrophils 11.15 H Absolute Lymphocytes 0.63 L Absolute Monocytes 1.13 H Absolute Eosinophils 0.01 Absolute Basophils 0.04 RBC Morphology Normal ESR 102 H Sodium 138 Potassium 3.1 L Chloride 100 Carbon Dioxide 28.5 Anion Gap 9.6 BUN 8 L Creatinine 0.4 L Est GFR (CKD-EPI 2020) 149.54 Glucose 117 H Calcium 8.2 L Magnesium 1.7 Iron 6 L TIBC 172 L Transferrin % Sat 3 L Ferritin 261 Lactate Dehydrogenase 152 Creatine Kinase 33 L Troponin I 4 C-Reactive Protein 10.48 H Vitamin B12 1017 H Folate 19.9 Procalcitonin 9.31 Urine Color Yellow Urine Clarity Clear Urine pH 6.0 Ur Specific [place] <= 1.005 Urine Protein Negative Urine Ketones Negative Urine Blood Negative Urine Nitrite Negative Urine Bilirubin Negative Urine Urobilinogen 0.2 Ur Leukocyte Esterase Negative Urine Glucose Negative Time Spent with Patient Time Spent with Patient: 35-49 minutes Time was spent: preparing to see the patient(eg.review tests), obtaining and/or reviewing separately otained hiistory, ordering medications,tests, procedures, referring, communicating with other health director of critical care, indepentently interpreting results, counseling the patient and care coordination
[2025-06-03] MEDS: MORPHine 2 MG/ML SYR IVP ×2 (15:37→23:08)
[2025-06-03] MEDS: FERRIC DERISOMALTOSE 1,000 MG in Normal Saline 250 ML 500 MG IVPB (17:48)
[2025-06-03] MEDS: Ondansetron 4 MG/2 ML VIAL IVP (17:53)
[2025-06-03] MEDS: LORazepam 0.5 MG TAB 1 MG PO (20:03)
[2025-06-03] MEDS: Albuterol 2.5 MG/3 ML INH SOLN VIAL IH (20:25)
[2025-06-04] VITALS (10 sets, daily range): BP systolic 91–112; BP diastolic 48–59; PULSE 98–140; RESP 16–18; TEMP 36–40; O2SAT 90–93
[2025-06-04] MEDS: Acetaminophen 500 MG TAB 1000 MG PO ×3 (02:16→18:27)
[2025-06-04] MEDS: oxyCODONE 5 MG TAB 10 MG PO ×2 (02:16→08:23)
[2025-06-04] MEDS: MORPHine 2 MG/ML SYR IVP ×2 (03:37→20:23)
[2025-06-04] MEDS: Ipratropium/Albuterol 4 GM 120 PUFF INH IH ×2 (06:05→13:21)
[2025-06-04 06:47] LABS: HCT 25.6 % (36.0-46.0); HGB 8.5 g/dL (11.2-15.7)
[2025-06-04 07:08] LABS: Anion Gap 9.2 mmol/L (3-11); BUN 5 mg/dL (9-23); CO2 29.4 mmol/L (20.0-31.0); Calcium 8.4 mg/dL (8.3-10.6); Chloride 99 mmol/L (98-107); Glucose 103 mg/dL (74-106); Potassium 3.1 mmol/L (3.5-5.1); Sodium 138 mmol/L (136-145)
[2025-06-04] MEDS: Budesonide/Formoterol 160/4.5 6 GM 60 PUFF INH IH (08:02)
[2025-06-04] MEDS: carBAMazepine 200 MG TAB 100 MG PO ×2 (08:23→20:22)
[2025-06-04] MEDS: Pantoprazole 40 MG VIAL IVP (08:23)
[2025-06-04] MEDS: Normal Saline Flush 10 ML SYR IVP ×2 (08:27→20:24)
[2025-06-04] MEDS: oxyCODONE 5 MG TAB PO ×3 (10:30→18:27)
--- NOTE | 2025-06-04 18:05 | PGE_ITS ---
Date of Service Date of service: 06/04/25 Time of Service: 18:05 Assessment and Plan Assessment and plan (1) Non-small cell lung cancer metastatic to liver: Status: Acute Assessment and plan: Patient has a massive right upper lung tumor with metastases to liver and bone She is engaged with [facility] oncology Active symptoms of pain, nausea, vomiting, diarrhea She declines many recommended interventions She has complex descriptions of her reasoning for declining treatment, delivered with high energy She has extremely poor cancer prognosis due to delay in treatment She is at extremely high risk of life-threatening complications from tumor growth, including PE, respiratory failure, cardiac failure, spinal disease This has been discussed at length with patient's PCP and palliative specialist, recommendation at this time is hospice care We have communicated clearly our impression that her pain and inflammatory symptoms are attributable to her cancer. We are moving towards discharge as she would like to follow up for treatment options with oncology. 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 Patient castigates previous providers and previous nurses 2. Patient asks next provider to be the one who finds her diagnosis 3. Patient has complex explanations for why her condition is unique to her and her alone 4. Patient has complex explanations for why she can or cannot take a medication or accept a treatment 5. Patient unavailable for shared decision making, persisting in her explanations of side issues At this point the barriers to her getting treatment are psychiatric. Mood issues may improve with carbemazepine as well. Continuing this. (3) Cancer related pain: Status: Acute Assessment and plan: Started fentanyl patch 05/30, some improvement in pain. Appreciate palliative input. After 06/02 PM dose, stopped Oxycontin and increased fentanyl to 75. Further spaced morphine, only give if oxycodone doesn't help, can give higher dose prn oxycodone if needed. She wanted to try adjuvant therapy for pain. 2013 ACCP guidelines for symptom management in lung cancer reviewed. She describes pain as neuropathic, she doesn't tolerate gabapentinoids, tolerating carbemazepine starting 1116 pm with some apparent improvement, continue. Renal/liver function has been good. She also brought up celecoxib, which she took before. We decided to resume this starting low dose 06/03. Another dose in AM may help inflammatory symtoms during the day. She declines trial of steroids. (4) COPD (chronic obstructive pulmonary disease): Status: Chronic Assessment and plan: - Without acute exacerbation - Continue home inhaler regimen when she accepts it. (5) Fever: Status: Acute Assessment and plan: She has had multiple negative infectious work up including blood cultures, u/a, CT CAP. Antibiotics stopped 06/01 and fevers recurred 06/02 night, intermittent since. Inflammatory markers high. I still think this is cancer related, no antibiotics but follow cultures. Get tick panel as last done in November and she reports h/o tick bites and Lyme. Could reconsider antibiotics if fevers become more persistent. (6) Anemia: Status: Chronic Assessment and plan: Drop from 10-11 range to 7.8. Normocytic. Hypochromasia. No signs hemolysis, bili normal. came back up to 8-9s since then. She is at risk for GI loss and nutritional deficiency. Get b12/folate normal but iron low, replaced IV 06/03 Occult blood stool pending negative. Made PPI daily dose. As above nl bili not c/w hemolysis, CBC does not suggest, LDH normal as well Follow (7) Hypokalemia: Status: Acute Assessment and plan: Having difficulty with IV, she would like to try oral, but then declining. Try again in the am. (8) DVT prophylaxis: Status: Acute Assessment and plan: High risk. Declines subcut injections or SCDs. Per Kror[place] score (VTE in cancer patients) she is 3, which is high risk and worth using DOAC at preventive dose. Carbemazepine reduces effectiveness, but still better than nothing so will continue to use this if she will take it. Subjective Subjective Patient reports: tolerating a regular diet, voiding w/o difficulty, nausea and fever; denies vomiting Interval history since last seen: Events: started on apixaban continues to have fevers off/on. Feels like pain is still bad. a little more phlegm, but breathing is about the same. She is eating Objective Last Vital Signs Temp 37.6 C H 06/04/25 15:41 Pulse 98 H 06/04/25 15:41 Resp 17 06/04/25 15:41 BP 97/55 L 06/04/25 15:41 Pulse Ox 90 L 06/04/25 15:41 Laboratory Results - last 24 hr 06/04/25 06:00 Hgb 8.5 L Hct 25.6 L Sodium 138 Potassium 3.1 L Chloride 99 Carbon Dioxide 29.4 Anion Gap 9.2 BUN 5 L Creatinine 0.4 L Est GFR (CKD-EPI 2020) 167.38 Glucose 103 Calcium 8.4 Time Spent with Patient Time Spent with Patient: 35-49 minutes Time was spent: preparing to see the patient(eg.review tests), obtaining and/or reviewing separately otained hiistory, ordering medications,tests, procedures, referring, communicating with other health hospice care transitions coordinator, indepentently interpreting results, counseling the patient and care coordination
--- NOTE | 2025-06-04 18:57 | PDOC.CMPRO ---
Date of service: 06/04/25 Time of Service: 18:57 Care Management Progress Note Progress Note Text Progress Note Text: Nakita continues to struggle with pain control, as changes are made in order to find an oral regiment for her to return home on. Per report, she has been having fevers, and her blood pressure is low at times. Nakita's barrier to discharge continues to be pain control. CM will continue to follow. Discharge Potential Discharge Needs: PCP F/U Appt Anticipated Barriers to Discharge: Medical Status Patient/Family Education Needs: Review discharge instructions, discuss Ask Me Three Transportation: Private vehicle Plan: Anticipate Nakita will discharge home with new [facility] RN/PT/OT/[employer] via private vehicle with son Annette once an acceptable discharge plan has been established. She will f/u with her PCP and her oncology team. She will continue to be followed to Palliative Care. CM will continue to follow closely. Social Determinants of Health Screening Will the Patient Participate in the Screening?: Unable to obtain
[2025-06-04] MEDS: Apixaban 2.5 MG TAB PO (20:22)
[2025-06-05] MEDS: oxyCODONE 5 MG TAB PO ×4 (00:08→14:41)
[2025-06-05 00:20] VITALS: BP 95/53; PULSE 98; RESP 18; TEMP 36.1; O2SAT 92
[2025-06-05] MEDS: LORazepam 0.5 MG TAB 1 MG PO (00:31)
[2025-06-05] MEDS: Acetaminophen 500 MG TAB 1000 MG PO (01:32)
[2025-06-05 05:17] VITALS: BP 99/57; PULSE 93; RESP 17; TEMP 36.5; O2SAT 93
[2025-06-05] MEDS: MORPHine 2 MG/ML SYR IVP ×2 (06:27→11:15)
[2025-06-05] MEDS: Pantoprazole 40 MG VIAL IVP (08:03)
[2025-06-05] MEDS: Potassium Chloride Liquid 20 MEQ PKT 40 MEQ PO (08:03)
[2025-06-05] MEDS: Normal Saline Flush 10 ML SYR IVP ×2 (08:03→11:16)
[2025-06-05 08:04] LABS: Abs Immature Grans 0.07 10^3/uL (0.0-0.06); HCT 28.4 % (36.0-46.0); HGB 9.4 g/dL (11.2-15.7); Immature Grans % 0.6 %; MCH 27.9 pg (27.0-33.0); MCHC 33.1 % (32.0-36.0); MCV 84 fL (80-95); MPV 8.1 fL (8.0-11.0); RBC 3.37 10^6/uL (3.93-5.22); RDW 14.1 % (11.7-14.6); RDW-SD 43.2 fL; WBC 10.96 10^3/uL (4.4-10.8)
[2025-06-05] MEDS: carBAMazepine 200 MG TAB 100 MG PO (08:04)
[2025-06-05] MEDS: Apixaban 2.5 MG TAB PO (08:04)
[2025-06-05 08:18] LABS: Platelet Count 880 10^3/uL (130-400)
[2025-06-05 08:22] VITALS: BP 116/59; PULSE 124; RESP 17; TEMP 39.3; O2SAT 91
[2025-06-05] MEDS: ACETAMINOPHEN 1,000 MG/100 ML BAG 400 MG IVPB (11:22)
--- NOTE | 2025-06-05 12:50 | DSE_ITS ---
Date of service: 06/05/25 Time of Service: 12:50 DS: Diagnosis Discharge Diagnosis (1) Non-small cell lung cancer metastatic to liver: Status: Acute Asessment and Plan: (as per previous providers Progress note from 06/04/2025) Patient has a massive right upper lung tumor with metastases to liver and bone She is engaged with [facility] oncology Active symptoms of pain, nausea, vomiting, diarrhea She declines many recommended interventions She has complex descriptions of her reasoning for declining treatment, delivered with high energy She has extremely poor cancer prognosis due to delay in treatment She is at extremely high risk of life-threatening complications from tumor growth, including PE, respiratory failure, cardiac failure, spinal disease This has been discussed at length with patient's PCP and palliative specialist, recommendation at this time is hospice care We have communicated clearly our impression that her pain and inflammatory symptoms are attributable to her cancer. We are moving towards discharge as she would like to follow up for treatment options with oncology. 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 Patient castigates previous providers and previous nurses 2. Patient asks next provider to be the one who finds her diagnosis 3. Patient has complex explanations for why her condition is unique to her and her alone 4. Patient has complex explanations for why she can or cannot take a medication or accept a treatment 5. Patient unavailable for shared decision making, persisting in her explanations of side issues (3) Cancer related pain: Status: Acute Asessment and Plan: (as per previous providers Progress note from 06/04/2025) Started fentanyl patch 05/30, some improvement in pain. Appreciate palliative input. After 06/02 PM dose, stopped Oxycontin and increased fentanyl to 75. Further spaced morphine, only give if oxycodone doesn't help, can give higher dose prn oxycodone if needed. She wanted to try adjuvant therapy for pain. 2013 ACCP guidelines for symptom management in lung cancer reviewed. She describes pain as neuropathic, she doesn't tolerate gabapentinoids, tolerating carbemazepine starting 11/16 pm with some apparent improvement, continue. Renal/liver function has been good. She also brought up celecoxib, which she took before. We decided to resume this starting low dose 06/03. Another dose in AM may help inflammatory symtoms during the day. She declines trial of steroids. (4) COPD (chronic obstructive pulmonary disease): Status: Chronic (5) Fever: Status: Acute Asessment and Plan: (as per previous provider Progress note from 06/04/2025) She has had multiple negative infectious work up including blood cultures, u/a, CT CAP. Antibiotics stopped 06/01 and fevers recurred 06/02 night, intermittent since. Inflammatory markers high. I still think this is cancer related, no antibiotics but follow cultures. Get tick panel as last done in November and she reports h/o tick bites and Lyme. Could reconsider antibiotics if fevers become more persistent. (6) Anemia: Status: Chronic (7) Hypokalemia: Status: Acute (8) DVT prophylaxis: Status: Acute Discharge Plan Disposition Patient Disposition: Home Condition: Poor Discharge Details Reason For Visit: Nausea, Vomiting Admit Date/Time: 05/25/25 04:40 Admit Provider: Abdi Waldron Attending Provider: Abdi Waldron Primary Care Provider: Analy Tai Hospital Course Hospital Course: Patient initially presented to the hospital with complaints of nausea and vomiting as well as leukocytosis. This was subsequently determined to be secondary to metastatic cancer. However during hospitalization patient does have a very well-documented history of significant difficulty excepting that her symptoms are related to her widely metastatic cancer. She repeatedly declines intervention, gives complex explanations for her condition, why it is unique, and why she cannot accept recommended treatment. Patient has been offered a multitude of therapies for her symptoms many of which the patient has declined. She did ultimately except having fentanyl patch placed which patient will have prescription at discharge along with as needed OxyContin, Celebrex, and carbamazepine. Ultimately, given the patient's ongoing refusal to participate in care, make informed decisions, refusal of care, and lack of engagement, it was determined that she will be discharged home. It is recommended that she have close follow-up with her primary care provider, [facility] oncology, and community connections. This was all explained to the patient on discharge, and was followed up with ongoing denial of her current condition, claiming the previous provider stated that she would not be discharged and that there is a plan though the patient cannot be specific about that plan. Additionally no such plan has been documented in her progress notes by previous providers. There was also an ethics consult placed for this patient which is recommended that if patient presents back to the emergency department that her previous notes be reviewed in detail. She is known to have intermittent fevers and tachycardia due to autonomic dysfunction from a cancer as well as thrombocytosis. This has been worked up extensively and no source of infection or other cause has been found. It is also recommended that all her scans be reviewed in order to appropriately assess any acute issues from her chronic issue should they arise, as the patient is not a reliable source of information. For additional details, please see most recent progress note from 06/04/2025. Home Meds and New Rx's Prescriptions: New carbamazepine 200 mg Tablet 100 mg PO BID Qty: 90 0RF lorazepam 0.5 mg Tablet 1 mg PO Q6H PRN PRNQty: 12 0RF celecoxib [Celebrex] 100 mg Capsule 100 mg PO HS Qty: 90 0RF fentanyl 75 mcg/hr Patch 72 Hour 75 mcg transdermal Q72H Qty: 3 0RF Eliquis 2.5 mg Tablet 2.5 mg PO BID 90 Days Qty: 180 0RF Continued budesonide-formoterol [Symbicort] 160-4.5 mcg/actuation HFA aerosol inhaler 1 puff inhalation 6XD PRN (Reason: wheezing) Qty: 10.2 12RF Probiotic with Prebiotic 1 billion-250 cell-mg capsule 1 cap PO DAILY diclofenac sodium 1 % gel 2 g topical QID PRN (Reason: pain) Qty: 100 12RF Rx Instructions: Apply to painful areas (do not apply to same area that is currently has lidocaine patch on it) cholecalciferol (vitamin D3) 25 mcg (1,000 unit) capsule 125 mcg PO DAILY albuterol sulfate 2.5 mg /3 mL (0.083 %) solution for nebulization 2.5 mg inhalation Q4H PRN (Reason: shortness of breath or wheezing) Qty: 540 5RF ondansetron 4 mg tablet,disintegrating 4 mg PO Q8H PRN Combivent Respimat 20-100 mcg/actuation mist 1 puff inhalation Q6H Qty: 4 6RF albuterol sulfate [Ventolin HFA] 90 mcg/actuation HFA aerosol inhaler See Rx Instructions .ROUTE .COMPLEX Qty: 18 10RF Dose Instruction: INHALE TWO PUFFS BY MOUTH EVERY 4 TO 6 HOURS NEEDED FOR FOR SHORTNESS OF BREATH OR WHEEZE Rx Instructions: INHALE TWO PUFFS BY MOUTH EVERY 4 TO 6 HOURS NEEDED FOR FOR SHORTNESS OF BREATH OR WHEEZE albuterol sulfate 1.25 mg/3 mL solution for nebulization 1.25 mg inhalation 3XD alum-mag hydroxide-simeth [Antacid-Antigas] 200-200-20 mg/5 mL suspension 10 ml PO 4XD PRN Rx Instructions: administer between meals and at bedtime omeprazole 20 mg capsule,delayed release(DR/EC) 20 mg PO PRN PRN ketorolac 10 mg tablet 10 mg PO Q6H Qty: 16 0RF naloxone [Narcan] 4 mg/actuation spray,non-aerosol 4 mg INTRANASAL Q2M PRN Patient Comments: SPRAY 4 MG (CONTENTS OF 1 NASAL SPRAY) A SINGLE DOSE IN ONE NOSTRIL; MAY REPEAT EVERY 2 TO 3 MINUTES IN ALTERNATING NOSTRILS UNTIL MEDICA oxycodone 5 mg tablet 5 mg PO Q4H PRN Patient Comments: TAKE ONE TABLET BY MOUTH EVERY 4 HOURS NEEDED FOR PAIN acetaminophen 500 mg tablet 1,000 mg PO TID Patient Comments: TAKE TWO TABLETS BY MOUTH THREE TIMES A DAY oxycodone [OxyContin] 20 mg Tablet,Oral Only,Ext.Rel.12 Hr 20 mg PO Q12H Qty: 20 0RF Discontinued amoxicillin-pot clavulanate 875-125 mg tablet 1 tab PO BID Qty: 20 0RF Discharge Instructions Instructions: Home Treatments for Nausea and Vomiting When You Have Cancer Stand Alone Forms: Portal Information Activity:: Activity as Tolerated Equipment/Supplies:: No Equipment Needed Diet:: As Tolerated Discharge Orders Discharge Orders: Discharge Order (Routine); Ordered 06/05/25 Ordered By: Abdi Waldron DS: Summary Time Spent with Patient providing and/or coordinating discharge services: Greater than 30 minutes Status at Discharge Functional status at discharge: independent ambulation Overall status at discharge: patient is back to baseline Mental Status: mental status grossly normal Speech and Movement: speech and movement normal Mood: congruent mood Affect: normal affect Quality:SDOH Health Related Social Needs: Health related social needs house/econ circumstance lo brett/isolated Health related social needs details ind in room Exam Narrative Exam Narrative: Frail, cachectic appearing female laying in bed in no acute distress, awake, alert, oriented to person-place, heart regular rhythm, lungs good auscultation bilaterally, abdomen soft, nontender, nondistended Psych Mental Status: mental status grossly normal Speech and Movement: speech and movement normal Mood: congruent mood Affect: normal affect DS: Data Vitals/I&O Vitals and I&O: Vital Signs Temperature 102.7 F H 06/05/25 08:22 Temperature Source Temporal Artery Scan 06/05/25 08:22 Pulse 124 H 06/05/25 08:22 Pulse Rhythm Regular 05/25/25 05:39 Pulse 133 H 05/25/25 04:40 Respiratory Rate 17 06/05/25 08:22 Respiratory Effort Short of Breath 05/25/25 05:39 Respiratory Depth Shallow 05/25/25 05:39 Respiratory Pattern Tachypnea 05/25/25 05:39 Blood Pressure 116/59 L 06/05/25 08:22 Blood Pressure Mean 78 06/05/25 08:22 Blood Pressure Position Sitting 05/25/25 01:23 Pulse Oximetry 91 L 06/05/25 08:22 Oxygen Delivery Method Room Air 06/05/25 08:22 Oxygen Flow Rate 0 06/05/25 08:22 Pain Level 10 06/05/25 08:22 Comment reported to both nurse (dora) and charge nurse (Nessa). 06/02/25 21:21 Intake & Output 06/04/25 06/05/25 06/05/25 17:59 05:59 17:59 Intake Total 1000 / 1000 20 / 1020 100 / 100 Output Total 550 / 550 600 / 1150 Balance 450 / 450 -580 / -130 100 / 100 Intake: IV 20 / 20 100 / 100 Oral 1000 / 1000 Output: Urine 550 / 550 600 / 1150 Other: Urine Color Yellow Yellow Yellow Urine Appearance Clear Clear Clear Urine Odor Normal None Comment mixed with stool. Stool Size Small Moderate Small Stool Characteristics Soft Soft Liquid Liquid Liquid Angelo Data Completed and Pending Pending Labs at Discharge: 05/25/25 05/25/25 05/25/25 01:10 02:11 03:20 WBC 13.76 H RBC 3.74 L Hgb 10.6 L Hct 32.9 L MCV 88 MCH 28.3 MCHC 32.2 RDW 14.0 Plt Count 793 H* MPV 8.1 Immature Gran % 0.4 Neutrophils % 71.3 Lymphocytes % 15.9 Monocytes % 11.0 Eosinophils % 0.9 Basophils % 0.5 Nucleated RBC % 0.0 Absolute Neutrophils 9.81 H Absolute Lymphocytes 2.19 Absolute Monocytes 1.51 H Absolute Eosinophils 0.12 Absolute Basophils 0.07 RBC Morphology Normal Hypochromasia ESR PT 11.5 H INR 1.2 H APTT 31.7 H VBG pH 7.38 VBG pCO2 52 H VBG pO2 25 VBG HCO3 30 H VBG Total CO2 29 VBG O2 Saturation 40 VBG Base Excess 5 H VBG Lactate 1.7 Sodium 135 L Potassium 4.7 Chloride 96 L Carbon Dioxide 31.7 Anion Gap 7.3 BUN 9 Creatinine 0.7 Est GFR (CKD-EPI 2020) 98.95 Glucose 131 H Uric Acid Calcium 8.6 Phosphorus Magnesium Iron TIBC Transferrin % Sat Ferritin Total Bilirubin 0.3 Conjugated Bilirubin AST 18 ALT 12 L Alkaline Phosphatase 96 Lactate Dehydrogenase Creatine Kinase Troponin I 5 5 C-Reactive Protein NT-Pro-B Natriuret Pep 252 Total Protein 7.4 Albumin 2.8 L Lipase 15 Vitamin B12 Folate Procalcitonin 5.05 TSH Free T4 Urine Color Urine Clarity Urine pH Ur Specific [place] Urine Protein Urine Ketones Urine Blood Urine Nitrite Urine Bilirubin Urine Urobilinogen Ur Leukocyte Esterase Urine Glucose Stool Campylobacter PCR Stl C.difficile Tox PCR Stool Salmonella PCR Stool Shigella PCR Random Vancomycin B. divergens/MO-1 PCR Babesia duncani (PCR) Babesia microti DNA PCR Lyme Disease Antibody COVID-19 Source Nasopharynx SARS-CoV-2 (PCR) Negative Cryptosporidium/Giardia E.chaffeensis DNA (PCR) E.ewingii/canis DNA PCR E.muris eauclairensis (PCR) Influenza Type A (PCR) Negative Influenza Type B (PCR) Negative RSV (PCR) Negative Shiga Toxin (PCR) A. phagocytophilum (PCR) Blood B. miyamotoi (PCR) Add-On Test Request 05/25/25 05/25/25 05/25/25 04:09 09:20 14:09 WBC RBC Hgb Hct MCV MCH MCHC RDW Plt Count MPV Immature Gran % Neutrophils % Lymphocytes % Monocytes % Eosinophils % Basophils % Nucleated RBC % Absolute Neutrophils Absolute Lymphocytes Absolute Monocytes Absolute Eosinophils Absolute Basophils RBC Morphology Hypochromasia ESR PT INR APTT VBG pH VBG pCO2 VBG pO2 VBG HCO3 VBG Total CO2 VBG O2 Saturation VBG Base Excess VBG Lactate Sodium Potassium Chloride Carbon Dioxide Anion Gap BUN Creatinine Est GFR (CKD-EPI 2020) Glucose Uric Acid Calcium Phosphorus Magnesium Iron TIBC Transferrin % Sat Ferritin Total Bilirubin Conjugated Bilirubin AST ALT Alkaline Phosphatase Lactate Dehydrogenase Creatine Kinase Troponin I Cancelled C-Reactive Protein NT-Pro-B Natriuret Pep Total Protein Albumin Lipase Vitamin B12 Folate Procalcitonin TSH Free T4 Urine Color Yellow Urine Clarity Clear Urine pH 6.0 Ur Specific [place] <= 1.005 Urine Protein Negative Urine Ketones Negative Urine Blood Negative Urine Nitrite Negative Urine Bilirubin Negative Urine Urobilinogen 0.2 Ur Leukocyte Esterase Negative Urine Glucose Negative Stool Campylobacter PCR Negative Stl C.difficile Tox PCR Negative Stool Salmonella PCR Negative Stool Shigella PCR Negative Random Vancomycin B. divergens/MO-1 PCR Babesia duncani (PCR) Babesia microti DNA PCR Lyme Disease Antibody COVID-19 Source SARS-CoV-2 (PCR) Cryptosporidium/Giardia SEE BELOW E.chaffeensis DNA (PCR) E.ewingii/canis DNA PCR E.muris eauclairensis (PCR) Influenza Type A (PCR) Influenza Type B (PCR) RSV (PCR) Shiga Toxin (PCR) Negative A. phagocytophilum (PCR) Blood B. miyamotoi (PCR) Add-On Test Request 05/26/25 05/29/25 05/29/25 06:43 03:25 19:02 WBC 13.14 H 14.27 H RBC 3.64 L 3.44 L Hgb 10.4 L 9.7 L Hct 31.6 L 29.3 L MCV 87 85 MCH 28.6 28.2 MCHC 32.9 33.1 RDW 13.9 13.8 Plt Count 690 H 795 H* MPV 8.2 8.4 Immature Gran % 0.4 Neutrophils % 81.8 Lymphocytes % 6.9 Monocytes % 10.2 Eosinophils % 0.3 Basophils % 0.4 Nucleated RBC % 0.0 Absolute Neutrophils 11.67 H Absolute Lymphocytes 0.98 L Absolute Monocytes 1.46 H Absolute Eosinophils 0.04 Absolute Basophils 0.06 RBC Morphology Hypochromasia ESR PT 11.5 H INR 1.2 H APTT VBG pH VBG pCO2 VBG pO2 VBG HCO3 VBG Total CO2 VBG O2 Saturation VBG Base Excess VBG Lactate 1.0 Sodium 136 137 Potassium 3.3 L D 3.3 L Chloride 98 102 Carbon Dioxide 28.7 26.1 Anion Gap 9.3 8.9 BUN 4 L < 5 L Creatinine 0.4 L 0.4 L Est GFR (CKD-EPI 2020) 113.24 153.67 Glucose 160 H 148 H Uric Acid 4.4 Calcium 8.8 8.8 Phosphorus 2.6 Magnesium 1.5 L Iron TIBC Transferrin % Sat Ferritin Total Bilirubin 0.30 Conjugated Bilirubin AST 13 ALT < 7 L Alkaline Phosphatase 76 Lactate Dehydrogenase Creatine Kinase 61 Troponin I C-Reactive Protein NT-Pro-B Natriuret Pep Total Protein 6.7 Albumin 3.8 Lipase Vitamin B12 Folate Procalcitonin TSH 0.48 L Free T4 Urine Color Urine Clarity Urine pH Ur Specific [place] Urine Protein Urine Ketones Urine Blood Urine Nitrite Urine Bilirubin Urine Urobilinogen Ur Leukocyte Esterase Urine Glucose Stool Campylobacter PCR Stl C.difficile Tox PCR Negative Stool Salmonella PCR Stool Shigella PCR Random Vancomycin B. divergens/MO-1 PCR Babesia duncani (PCR) Babesia microti DNA PCR Lyme Disease Antibody COVID-19 Source SARS-CoV-2 (PCR) Cryptosporidium/Giardia E.chaffeensis DNA (PCR) E.ewingii/canis DNA PCR E.muris eauclairensis (PCR) Influenza Type A (PCR) Influenza Type B (PCR) RSV (PCR) Shiga Toxin (PCR) A. phagocytophilum (PCR) Blood B. miyamotoi (PCR) Add-On Test Request 05/30/25 06/02/25 06/02/25 07:25 06:27 21:35 WBC 11.24 H 13.03 H RBC 2.82 L 3.36 L Hgb 7.8 L 9.4 L Hct 24.3 L 28.3 L MCV 86 84 MCH 27.7 28.0 MCHC 32.1 33.2 RDW 13.7 14.0 Plt Count 682 H 849 H* MPV 8.3 8.2 Immature Gran % 0.5 0.5 Neutrophils % 79.6 85.6 Lymphocytes % 8.3 4.8 Monocytes % 11.2 8.7 Eosinophils % 0.1 0.1 Basophils % 0.3 0.3 Nucleated RBC % 0.0 0.0 Absolute Neutrophils 8.95 H 11.15 H Absolute Lymphocytes 0.93 L 0.63 L Absolute Monocytes 1.26 H 1.13 H Absolute Eosinophils 0.01 0.01 Absolute Basophils 0.03 0.04 RBC Morphology See Below Normal Hypochromasia 1+ ESR 102 H PT INR APTT VBG pH VBG pCO2 VBG pO2 VBG HCO3 VBG Total CO2 VBG O2 Saturation VBG Base Excess VBG Lactate Sodium 139 Potassium 3.2 L Chloride 102 Carbon Dioxide 27.5 Anion Gap 9.5 BUN 7 L Creatinine 0.5 L Est GFR (CKD-EPI 2020) 134.96 Glucose 102 Uric Acid Calcium 8.5 Phosphorus Magnesium 1.4 L Iron TIBC Transferrin % Sat Ferritin Total Bilirubin 0.30 Conjugated Bilirubin 0.1 AST 12 ALT 8 L Alkaline Phosphatase 61 Lactate Dehydrogenase Creatine Kinase 33 L Troponin I 4 C-Reactive Protein 10.48 H NT-Pro-B Natriuret Pep Total Protein 5.5 L Albumin 3.1 L Lipase Vitamin B12 Folate Procalcitonin 9.31 TSH Free T4 1.39 Urine Color Urine Clarity Urine pH Ur Specific [place] Urine Protein Urine Ketones Urine Blood Urine Nitrite Urine Bilirubin Urine Urobilinogen Ur Leukocyte Esterase Urine Glucose Stool Campylobacter PCR Stl C.difficile Tox PCR Stool Salmonella PCR Stool Shigella PCR Random Vancomycin 10.0 B. divergens/MO-1 PCR Babesia duncani (PCR) Babesia microti DNA PCR Lyme Disease Antibody COVID-19 Source SARS-CoV-2 (PCR) Cryptosporidium/Giardia E.chaffeensis DNA (PCR) E.ewingii/canis DNA PCR E.muris eauclairensis (PCR) Influenza Type A (PCR) Influenza Type B (PCR) RSV (PCR) Shiga Toxin (PCR) A. phagocytophilum (PCR) Blood B. miyamotoi (PCR) Add-On Test Request DONE 06/03/25 06/03/25 06/04/25 05:08 05:52 06:00 WBC RBC Hgb 8.5 L Hct 25.6 L MCV MCH MCHC RDW Plt Count MPV Immature Gran % Neutrophils % Lymphocytes % Monocytes % Eosinophils % Basophils % Nucleated RBC % Absolute Neutrophils Absolute Lymphocytes Absolute Monocytes Absolute Eosinophils Absolute Basophils RBC Morphology Hypochromasia ESR PT INR APTT VBG pH VBG pCO2 VBG pO2 VBG HCO3 VBG Total CO2 VBG O2 Saturation VBG Base Excess VBG Lactate Sodium 138 138 Potassium 3.1 L 3.1 L Chloride 100 99 Carbon Dioxide 28.5 29.4 Anion Gap 9.6 9.2 BUN 8 L 5 L Creatinine 0.4 L 0.4 L Est GFR (CKD-EPI 2020) 149.54 167.38 Glucose 117 H 103 Uric Acid Calcium 8.2 L 8.4 Phosphorus Magnesium 1.7 Iron 6 L TIBC 172 L Transferrin % Sat 3 L Ferritin 261 Total Bilirubin Conjugated Bilirubin AST ALT Alkaline Phosphatase Lactate Dehydrogenase 152 Creatine Kinase Troponin I C-Reactive Protein NT-Pro-B Natriuret Pep Total Protein Albumin Lipase Vitamin B12 1017 H Folate 19.9 Procalcitonin TSH Free T4 Urine Color Yellow Urine Clarity Clear Urine pH 6.0 Ur Specific [place] <= 1.005 Urine Protein Negative Urine Ketones Negative Urine Blood Negative Urine Nitrite Negative Urine Bilirubin Negative Urine Urobilinogen 0.2 Ur Leukocyte Esterase Negative Urine Glucose Negative Stool Campylobacter PCR Stl C.difficile Tox PCR Stool Salmonella PCR Stool Shigella PCR Random Vancomycin B. divergens/MO-1 PCR Babesia duncani (PCR) Babesia microti DNA PCR Lyme Disease Antibody COVID-19 Source SARS-CoV-2 (PCR) Cryptosporidium/Giardia E.chaffeensis DNA (PCR) E.ewingii/canis DNA PCR E.muris eauclairensis (PCR) Influenza Type A (PCR) Influenza Type B (PCR) RSV (PCR) Shiga Toxin (PCR) A. phagocytophilum (PCR) Blood B. miyamotoi (PCR) Add-On Test Request 06/05/25 07:53 WBC 10.96 H RBC 3.37 L Hgb 9.4 L Hct 28.4 L MCV 84 MCH 27.9 MCHC 33.1 RDW 14.1 Plt Count 880 H* MPV 8.1 Immature Gran % 0.6 Neutrophils % 70.0 Lymphocytes % 15.2 Monocytes % 13.3 Eosinophils % 0.4 Basophils % 0.5 Nucleated RBC % 0.0 Absolute Neutrophils 7.67 H Absolute Lymphocytes 1.67 Absolute Monocytes 1.46 H Absolute Eosinophils 0.04 Absolute Basophils 0.05 RBC Morphology Hypochromasia ESR PT INR APTT VBG pH VBG pCO2 VBG pO2 VBG HCO3 VBG Total CO2 VBG O2 Saturation VBG Base Excess VBG Lactate Sodium Potassium Chloride Carbon Dioxide Anion Gap BUN Creatinine Est GFR (CKD-EPI 2020) Glucose Uric Acid Calcium Phosphorus Magnesium Iron TIBC Transferrin % Sat Ferritin Total Bilirubin Conjugated Bilirubin AST ALT Alkaline Phosphatase Lactate Dehydrogenase Creatine Kinase Troponin I C-Reactive Protein NT-Pro-B Natriuret Pep Total Protein Albumin Lipase Vitamin B12 Folate Procalcitonin TSH Free T4 Urine Color Urine Clarity Urine pH Ur Specific [place] Urine Protein Urine Ketones Urine Blood Urine Nitrite Urine Bilirubin Urine Urobilinogen Ur Leukocyte Esterase Urine Glucose Stool Campylobacter PCR Stl C.difficile Tox PCR Stool Salmonella PCR Stool Shigella PCR Random Vancomycin B. divergens/MO-1 PCR Pending Babesia duncani (PCR) Pending Babesia microti DNA PCR Pending Lyme Disease Antibody Pending COVID-19 Source SARS-CoV-2 (PCR) Cryptosporidium/Giardia E.chaffeensis DNA (PCR) Pending E.ewingii/canis DNA PCR Pending E.muris eauclairensis (PCR) Pending Influenza Type A (PCR) Influenza Type B (PCR) RSV (PCR) Shiga Toxin (PCR) A. phagocytophilum (PCR) Pending Blood B. 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 (Acute) Hypercoagulable state (Acute) Thrombocytosis (Acute) Diarrhea (Acute) Acute dehydration (Acute) Sepsis (Acute) Leukocytosis (Acute) Nausea & vomiting (Acute) Moderate protein-calorie malnutrition (Acute) Pneumonia (Acute) Non-small cell lung cancer metastatic to liver (Acute) Acute exacerbation of chronic obstructive pulmonary disease (Acute) Malnutrition (Acute) Nicotine dependence (Acute) Cough (Acute) Allodynia (Acute) Liver mass (Acute) Metastatic primary lung cancer (Acute) Enteritis (Acute) Lung mass (Acute) Pain (Acute) Cancer related pain (Acute) Right ear pain (Acute) Myofascial pain (Acute) Chronic pain (Chronic) Generalized weakness (Acute) Advanced care planning/counseling discussion (Acute) COPD (chronic obstructive pulmonary disease) (Chronic) Generalized pain (Acute) Non-small cell lung cancer metastatic to bone (Acute) Scoliosis (Acute) Hernia of abdominal cavity (Acute) Decreased appetite (Acute) Refractory migraine with aura (Acute) Posttraumatic stress disorder (Acute) Nausea (Acute) Asthma (Chronic) Tremor (Acute) Influenza A (Acute) Generalized hyperhidrosis (Acute) Exposure to viral hepatitis (Acute) (Suspected) Functional tremor (Acute) Vertigo (Acute) Weakness (Acute) Fibromyalgia (Acute) High risk medication use (Acute) History of tobacco abuse (Acute) High blood sugar (Acute) Pulmonary nodule (Acute) Nicotine dependence, cigarettes, uncomplicated (Acute) Mass of upper lobe of right lung (Acute) Lesion of ulnar nerve (Acute) Ovarian cyst (Acute) Fatigue (Acute) Note hx fibromyalgia on problem list Depression (Chronic) Medical History Thoracic outlet syndrome UTI (urinary tract infection) Enterocolitis Polyneuropathy Chemotherapy induced nausea and vomiting Chronic abdominal pain Abnormal findings on diagnostic imaging of lung Tobacco dependence syndrome Left lower quadrant pain Low back pain Rheumatoid arthritis Deviated nasal septum Chronic pain syndrome Chronic pain due to malignant neoplastic disease Malignant neoplasm metastatic to bone Palliative care patient Pneumonia Advance care planning Palliative care encounter Sepsis Constipation Anxiety Metastatic primary lung cancer Chronic back pain Cervical dysplasia Surgical History H/O endoscopy Hx of colonoscopy H/O LEEP Family History Mother Cancer family history of CA Mother bladder questioning ovarian ca Uncle brain CA Grand father CA unknown origin. 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
[2025-06-05] MEDS: fentaNYL 75 MCG PATCH TD (12:58)
--- NOTE | 2025-06-05 13:37 | PDOC.HHF2F ---
Date of service: 06/05/25 Time of Service: 13:37 Home Health Referral Home Health Orders Clinical synopsis of why skilled professionals are needed: Metastatic non-small cell lung carcinoma, thoracic outlet syndrome, cancer pain, thrombocytosis, autonomic dysfunction Registered Nurse: Check all that apply Instruct on new or changed medication(s)/assess compliance: Ordered Other: Assistance with recognizing pain and appropriate administration of PRN pain medications Physical Therapist: Check all that apply Increase strength & endurance for safe mobility at home: Ordered To design/establish home maintenance program: Ordered Fall reduction therapy program for patient with history of frequent falls: Ordered Home safety evaluation and teaching/gait training including stair management (if applicable): Ordered Endless Track Vehicle Mechanic: Assist with community resources: Ordered Assist with long line teamster care planning: Ordered Encounter Date and Reason: I certify that a FTF encounter for this patient was performed on June 05, 2025 and that such encounter was related to the primary reason the patient requires home health services. The encounter was conducted in the following manner: By me as the certifying physician, CASH POSTING REPRESENTATIVE, PA or By an inpatient physician, CASH POSTING REPRESENTATIVE or PA during an inpatient stay who communicated findings to me, Certification And Authentication I certify that I composed the above information based on my clinical judgment relating to this patient's medical condition and, if applicable, clinical findings communicated to me by the NPP or inpatient physician who performed the FTF encounter. Name of Provider that will be monitoring home health services: Analy Tai
[2025-06-05] MEDS: Ipratropium/Albuterol 4 GM 120 PUFF INH IH (14:00)
--- NOTE | 2025-06-05 14:44 | CMDISCH_ITS ---
Date of service: 06/05/25 Time of Service: 14:44 LACE Index Scoring Tool Questions: Length of Stay (in days): 7 - 13 Was the patient admitted via the E.D.?: Yes Comorbidities: Chronic Pulmonary Disease and Metastatic Solid Tumor E.D. Visits: 5 Answers: Total Score: 17 Risk of Readmission: High Risk Care Management Discharge Plan Reason for Hospitalization: metastatic cancer/pain Discharge Plan: Nakita was discharged home today with new HH services of RN, PT and MENTAL MEASUREMENTS TEACHER. She will f/u with her PCP on 06/09 at 0930, and she was strongly encouraged to f/u with her oncology team. Nakita transported home via [facility] private vehicle. Referral to [facility] was sent today to help with community supports. Patient/Family Education Needs: Review of discharge instructions,activity, limitations, and discuss Ask me 3. SDOH Health Related Social Needs: Health related social needs house/econ circumstance lo brett/isolated Health related social needs details ind in room Care Management Referrals: MICHAEL
[2025-06-06 10:32] LABS: Lyme Ab w Rflx to Lyme Confirm Negative (Negative)
== END 2025-06-05 15:59 | disposition home health service (06) ==
LOC: ER 04:47 → MS 05:22
PROVIDERS: Family Medicine; Hospitalist; Admitting Provider Family Medicine; Emergency Provider Student in an Organized Health Care Education/Training Program; PCP Nurse Practitioner Family; Responsible Provider Family Medicine; Visit Provider Family Medicine
DX: C78.7 Secondary malignant neoplasm of liver and intrahepatic bile duct (principal); R11.2 Nausea with vomiting, unspecified; D72.829 Elevated white blood cell count, unspecified; R50.81 Fever presenting with conditions classified elsewhere; J44.1 Chronic obstructive pulmonary disease with (acute) exacerbation; C34.11 Malignant neoplasm of upper lobe, right bronchus or lung; G89.3 Neoplasm related pain (acute) (chronic); F60.3 Borderline personality disorder; D75.839 Thrombocytosis, unspecified; R19.7 Diarrhea, unspecified; E44.0 Moderate protein-calorie malnutrition; Z68.1 Body mass index [BMI] 19.9 or less, adult; E87.6 Hypokalemia; E86.0 Dehydration; F17.210 Nicotine dependence, cigarettes, uncomplicated; G25.2 Other specified forms of tremor; F32.A Depression, unspecified; C79.51 Secondary malignant neoplasm of bone; Z79.899 Other long term (current) drug therapy; E83.42 Hypomagnesemia; R00.0 Tachycardia, unspecified
CPT/HCPCS: 00123; 36415; 71275; 74177; 80048; 80053; 80076; 82550; 82805; 83690; 84145; 85027; 85652; 87015; 87040; 87269; 87272; 87505; 87637; 87798; 93005; 94640; 96361; 96374; 96375; 99291; J1650; 71045; 80202; 81003; 82272; 82607; 82728; 82746; 83540; 83550; 83605; 83615; 83735; 83880; 84100; 84439; 84443; 84484; 84550; 85014; 85018; 85025; 85610; 85730; 86140; 86618; 87070; 87086; 87205; 93010; 94664; 94760; 99222; 99231; 99232; 99238; G0378; J0131; J0692; J1437; J2250; J2270; J2405; J2470; J3373; J3475; J3480; J3490; J7613

== ENCOUNTER 2025-06-14 12:55 | Inpatient (IN) | payer MEDICAID, SELFPAY ==
[2025-06-14] VITALS (44 sets, daily range): BP systolic 86–116; BP diastolic 41–65; PULSE 94–113; RESP 0–34; TEMP 37.2–37.8; O2SAT 93–100
--- NOTE | 2025-06-14 12:50 | W.ED.GENAD ---
Discharge Plan Discharge Details Chief Complaint: Fever Clinical Impression: Hypocalcemia, Tachycardia, Acute generalized abdominal pain Primary Care Provider: Analy Tai ED Provider: Andres Vu Home Meds and New Rx's Prescriptions: No Action budesonide-formoterol [Symbicort] 160-4.5 mcg/actuation HFA aerosol inhaler 1 puff inhalation 6XD PRN (Reason: wheezing) Qty: 10.2 12RF Probiotic with Prebiotic 1 billion-250 cell-mg capsule 1 cap PO DAILY diclofenac sodium 1 % gel 2 g topical QID PRN (Reason: pain) Qty: 100 12RF Rx Instructions: Apply to painful areas (do not apply to same area that is currently has lidocaine patch on it) cholecalciferol (vitamin D3) 25 mcg (1,000 unit) capsule 125 mcg PO DAILY albuterol sulfate 2.5 mg /3 mL (0.083 %) solution for nebulization 2.5 mg inhalation Q4H PRN (Reason: shortness of breath or wheezing) Qty: 540 5RF ondansetron 4 mg tablet,disintegrating 4 mg PO Q8H PRN Combivent Respimat 20-100 mcg/actuation mist 1 puff inhalation Q6H Qty: 4 6RF albuterol sulfate [Ventolin HFA] 90 mcg/actuation HFA aerosol inhaler See Rx Instructions .ROUTE .COMPLEX Qty: 18 10RF Dose Instruction: INHALE TWO PUFFS BY MOUTH EVERY 4 TO 6 HOURS NEEDED FOR FOR SHORTNESS OF BREATH OR WHEEZE Rx Instructions: INHALE TWO PUFFS BY MOUTH EVERY 4 TO 6 HOURS NEEDED FOR FOR SHORTNESS OF BREATH OR WHEEZE albuterol sulfate 1.25 mg/3 mL solution for nebulization 1.25 mg inhalation 3XD alum-mag hydroxide-simeth [Antacid-Antigas] 200-200-20 mg/5 mL suspension 10 ml PO 4XD PRN Rx Instructions: administer between meals and at bedtime omeprazole 20 mg capsule,delayed release(DR/EC) 20 mg PO PRN PRN ketorolac 10 mg tablet 10 mg PO Q6H Qty: 16 0RF naloxone [Narcan] 4 mg/actuation spray,non-aerosol 4 mg INTRANASAL Q2M PRN Patient Comments: SPRAY 4 MG (CONTENTS OF 1 NASAL SPRAY) A SINGLE DOSE IN ONE NOSTRIL; MAY REPEAT EVERY 2 TO 3 MINUTES IN ALTERNATING NOSTRILS UNTIL MEDICA carbamazepine 200 mg Tablet 100 mg PO BID Qty: 90 0RF lorazepam 0.5 mg Tablet 1 mg PO Q6H PRN PRNQty: 12 0RF celecoxib [Celebrex] 100 mg Capsule 100 mg PO HS Qty: 90 0RF fentanyl 75 mcg/hr Patch 72 Hour 75 mcg transdermal Q72H Qty: 3 0RF Eliquis 2.5 mg Tablet 2.5 mg PO BID 90 Days Qty: 180 0RF oxycodone 5 mg tablet 5 mg PO Q4H PRN Patient Comments: TAKE ONE TABLET BY MOUTH EVERY 4 HOURS NEEDED FOR PAIN acetaminophen 500 mg tablet 1,000 mg PO TID Patient Comments: TAKE TWO TABLETS BY MOUTH THREE TIMES A DAY oxycodone [OxyContin] 20 mg Tablet,Oral Only,Ext.Rel.12 Hr 20 mg PO Q12H Qty: 20 0RF HPI General Date/Time Provider Initiated Documentation: 06/14/25 13:02. HPI Narrative: MDM This is a tachycardic hypotensive and borderline febrile patient with presentation concerning for sepsis for which patient received broad-spectrum antibiotics using ceftriaxone and fluids she will receive 50 abdomen/pelvis given abdominal tenderness. No pain on proportion to suggest necrotizing soft tissue infection. No dysuria or frequency to suggest UTI. Nonetheless in the setting of sepsis will obtain urinalysis. No cough to suggest pneumonia however will obtain a chest x-ray. No chest pain to suggest ACS I did not order an ECG. No rash to abdomen to suggest zoster. Patient does have right sided abdominal pain so appendicitis remains on the differential. No pelvic pain to suggest ovarian torsion. Will provide patient with a 500 cc fluid bolus. Will swab for COVID flu RSV. Will reassess following labs and imaging. 1:45 PM Reassuring normal lactate. 1:54 PM CBC shows persistent normocytic anemia. Slightly worsened leukocytosis. Improved thrombocytosis. 2:30 PM Comprehensive metabolic panel with no DARIEN. No acute LFT abnormalities. Mild hypocalcemia for which patient received IV repletion. Mild hyponatremia. No acute electrolyte abnormalities. 3:27 PM I signed patient out to Dr. Olsen. HPI This is a female with a history of fever presenting with nausea, vomiting, and diarrhea. The patient has been experiencing a fever, which her daughter reported to have peaked at over 102?F. However, the patient herself recorded a maximum temperature of 100.5?F. The onset of the fever was noted yesterday. She also reports generalized body soreness and mild congestion but does not have a runny nose. She was administered 4 doses of Zofran and a liter of fluid. Tylenol was not available in the truck for administration. The patient has been experiencing nausea, vomiting, and diarrhea for the past few days. She reports no recent sick contacts. The patient reports mild dysuria, which she attributes to delayed urination. Exam General: Well-appearing in no acute distress speaking in complete sentences. Head: Normocephalic, atraumatic. Eye: Extraocular eye movements intact. No conjunctival injection. No scleral icterus. Ear, nose, mouth, throat: Grossly normal inspection. Normal voice, handling secretions normally. Neck: Trachea midline. Cardiovascular: Well-perfused distal extremities. Rapid regular rate. Respiratory: Nonlabored respiration. Clear lungs bilaterally. Gastrointestinal: Nondistended abdomen. Soft. Right-sided abdominal tenderness.No rebound. No guarding. Musculoskeletal: No edema. Moving all 4 extremities spontaneously. Skin: Normal for age and race, grossly normal temperature and turgor. No acute rash. Neurologic: Alert and appropriate, no apparent acute deficits. Psychiatric: Mood and manner are appropriate. Grooming and personal hygiene are appropriate. Related Data Home Medications ?Medication ?Instructions ?Recorded ?Confirmed cholecalciferol (vitamin D3) 25 125 mcg PO DAILY 01/05/22 05/25/25 mcg (1,000 unit) capsule albuterol sulfate 2.5 mg/3 mL 2.5 mg (3 mL) inhalation Q4H PRN 12/22/23 05/25/25 (0.083 %) solution for nebulization shortness of breath or wheezing #540 mL ondansetron 4 mg disintegrating 4 mg PO Q8H PRN 04/24/24 05/25/25 tablet Bacillus coagulans-inulin 1 1 cap PO DAILY 05/23/24 05/25/25 billion cell-250 mg capsule (Probiotic with Prebiotic) budesonide-formoterol HFA 160 1 puff inhalation 6XD PRN wheezing 11/27/24 05/25/25 mcg-4.5 mcg/actuation aerosol #10.2 grams inhaler (Symbicort) ipratropium 20 mcg-albuterol 100 1 puff inhalation Q6H #4 grams 01/07/25 05/25/25 mcg/actuation mist for inhalation (Combivent Respimat) albuterol sulfate 90 mcg/actuation See Rx Instructions .Route 03/20/25 05/25/25 aerosol inhaler (Ventolin HFA) .COMPLEX #18 grams albuterol sulfate 1.25 mg/3 mL 1.25 mg inhalation 3XD 03/24/25 05/25/25 solution for nebulization aluminum-mag hydroxide-simethicone 10 ml PO 4XD PRN 03/24/25 05/25/25 200 mg-200 mg-20 mg/5 mL oral susp (Antacid-Antigas) omeprazole 20 mg capsule,delayed 20 mg PO PRN PRN 04/22/25 05/25/25 release diclofenac sodium 1 % topical gel 2 g topical QID PRN pain #100 grams 04/25/25 05/25/25 acetaminophen 500 mg tablet 1,000 mg PO TID 05/08/25 05/25/25 oxycodone 5 mg tablet 5 mg PO Q4H PRN 05/08/25 06/01/25 oxycodone 20 mg tablet,crush 20 mg PO Q12H #20 tabs 05/18/25 05/25/25 resistant,extended release 12 hr (OxyContin) ketorolac 10 mg tablet 10 mg PO Q6H #16 tabs 05/23/25 05/25/25 naloxone 4 mg/actuation nasal 4 mg intranasal Q2M PRN 05/25/25 05/25/25 spray (Narcan) apixaban 2.5 mg tablet (Eliquis) 2.5 mg PO BID 90 days #180 tabs 06/05/25 carbamazepine 200 mg tablet 100 mg (1/2 x 200 mg) PO BID #90 06/05/25 tabs celecoxib 100 mg capsule (Celebrex) 100 mg PO HS #90 caps 06/05/25 fentanyl 75 mcg/hr transdermal 75 mcg transdermal Q72H #3 ea 06/05/25 patch lorazepam 0.5 mg tablet 1 mg (2 x 0.5 mg) PO Q6H PRN PRN 06/05/25 #12 tabs Previous Rx's ?Medication ?Instructions ?Recorded albuterol sulfate 2.5 mg/3 mL 2.5 mg (3 mL) inhalation Q4H PRN 12/22/23 (0.083 %) solution for nebulization shortness of breath or wheezing #540 mL budesonide-formoterol HFA 160 1 puff inhalation 6XD PRN wheezing 11/27/24 mcg-4.5 mcg/actuation aerosol #10.2 grams inhaler (Symbicort) ipratropium 20 mcg-albuterol 100 1 puff inhalation Q6H #4 grams 01/07/25 mcg/actuation mist for inhalation (Combivent Respimat) albuterol sulfate 90 mcg/actuation See Rx Instructions .Route 03/20/25 aerosol inhaler (Ventolin HFA) .COMPLEX #18 grams diclofenac sodium 1 % topical gel 2 g topical QID PRN pain #100 grams 04/25/25 oxycodone 20 mg tablet,crush 20 mg PO Q12H #20 tabs 05/18/25 resistant,extended release 12 hr (OxyContin) ketorolac 10 mg tablet 10 mg PO Q6H #16 tabs 05/23/25 apixaban 2.5 mg tablet (Eliquis) 2.5 mg PO BID 90 days #180 tabs 06/05/25 carbamazepine 200 mg tablet 100 mg (1/2 x 200 mg) PO BID #90 06/05/25 tabs celecoxib 100 mg capsule (Celebrex) 100 mg PO HS #90 caps 06/05/25 fentanyl 75 mcg/hr transdermal 75 mcg transdermal Q72H #3 ea 06/05/25 patch lorazepam 0.5 mg tablet 1 mg (2 x 0.5 mg) PO Q6H PRN PRN 06/05/25 #12 tabs Allergies Allergy/AdvReac Type Severity Reaction Status Date / Time levofloxacin Allergy Unknown Other (See Verified 05/14/25 07:12 Comment) gabapentin Allergy sharp Verified 05/14/25 07:12 shooting pains pregabalin Allergy sharp Verified 05/14/25 07:12 shooting pain pseudoephedrine (From AdvReac Unknown Other (See Verified 05/14/25 07:12 Sudafed) Comment) narcotics AdvReac Unknown gi upset Uncoded 05/14/25 07:12 General WES: 3 Medical Decision Making Quality:SDOH Health Related Social Needs: Health related social needs house/econ circumstance lonely/isolated Health related social needs details ind in room PFSH All Active Problems (Updated 06/14/25 @ 15:28 by Andres Vu MD) Acute generalized abdominal pain (Acute) Tachycardia (Acute) Hypocalcemia (Acute) Anemia (Chronic) Fever (Acute) 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 (Acute) Hypercoagulable state (Acute) Thrombocytosis (Acute) Acute dehydration (Acute) Sepsis (Acute) Moderate protein-calorie malnutrition (Acute) Non-small cell lung cancer metastatic to liver (Acute) Malnutrition (Acute) Nicotine dependence (Acute) Cough (Acute) Allodynia (Acute) Liver mass (Acute) Metastatic primary lung cancer (Acute) Enteritis (Acute) Lung mass (Acute) Pain (Acute) Cancer related pain (Acute) Right ear pain (Acute) Myofascial pain (Acute) Chronic pain (Chronic) Generalized weakness (Acute) Advanced care planning/counseling discussion (Acute) COPD (chronic obstructive pulmonary disease) (Chronic) Generalized pain (Acute) Non-small cell lung cancer metastatic to bone (Acute) Scoliosis (Acute) Hernia of abdominal cavity (Acute) Decreased appetite (Acute) Refractory migraine with aura (Acute) Posttraumatic stress disorder (Acute) Nausea (Acute) Asthma (Chronic) Tremor (Acute) Influenza A (Acute) Generalized hyperhidrosis (Acute) Exposure to viral hepatitis (Acute) (Suspected) Functional tremor (Acute) Vertigo (Acute) Weakness (Acute) Fibromyalgia (Acute) High risk medication use (Acute) History of tobacco abuse (Acute) High blood sugar (Acute) Pulmonary nodule (Acute) Nicotine dependence, cigarettes, uncomplicated (Acute) Mass of upper lobe of right lung (Acute) Lesion of ulnar nerve (Acute) Ovarian cyst (Acute) Fatigue (Acute) Note hx fibromyalgia on problem list Depression (Chronic) Medical History Thoracic outlet syndrome UTI (urinary tract infection) Enterocolitis Polyneuropathy Chemotherapy induced nausea and vomiting Chronic abdominal pain Abnormal findings on diagnostic imaging of lung Tobacco dependence syndrome Left lower quadrant pain Low back pain Rheumatoid arthritis Deviated nasal septum Chronic pain syndrome Chronic pain due to malignant neoplastic disease Malignant neoplasm metastatic to bone Palliative care patient Pneumonia Advance care planning Palliative care encounter Sepsis Constipation Anxiety Metastatic primary lung cancer Chronic back pain Cervical dysplasia Surgical History H/O endoscopy Hx of colonoscopy H/O LEEP Family History Mother Cancer family history of CA Mother bladder questioning ovarian ca Uncle brain CA Grand father CA unknown origin. 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
--- NOTE | 2025-06-14 13:03 | DI.RAD_ITS ---
Exam(s) XR CHEST 1V IN DI DEPT EXAM: XR CHEST 1V IN DI DEPT CLINICAL HISTORY: Sepsis TECHNIQUE: 2D digital imaging was performed of the chest. One image was obtained. An AP view was obtained. COMPARISON: CR XR CHEST 1V IN DI DEPT from 05/14/2025 CR,XR XR PORTABLE CHEST AP from 06/02/2025 FINDINGS: MEDIASTINUM: Normal. HEART: Normal. PULMONARY VASCULATURE: Normal. LUNGS: Stable right upper lobe opacity consistent with the patient's history of lung carcinoma. The lungs are hyperinflated suggesting underlying COPD. There are no new infiltrates present. PLEURAL SPACE: No pleural effusion or pneumothorax. BONE:Within normal limits for the patient's age. There is a left convex thoracic scoliosis. OTHER FINDINGS:Normal. IMPRESSION: 1. Stable appearance of the right upper lobe pulmonary mass consistent with patient's history of lung carcinoma. 2. There is no acute pulmonary process. 3. The preliminary [facility] report was reviewed. DATA REPOSITORY: RADIATION DOSE DELIVERED:
[2025-06-14 13:30] LABS: Abs Immature Grans 0.06 10^3/uL (0.0-0.06); HCT 28.1 % (36.0-46.0); HGB 9.2 g/dL (11.2-15.7); Immature Grans % 0.5 %; MCH 28.3 pg (27.0-33.0); MCHC 32.7 % (32.0-36.0); MCV 87 fL (80-95); MPV 8.2 fL (8.0-11.0); RBC 3.25 10^6/uL (3.93-5.22); RDW 15.9 % (11.7-14.6); RDW-SD 48.1 fL; WBC 11.08 10^3/uL (4.4-10.8)
[2025-06-14] MEDS: CEFEPIME 2 GM in Normal Saline 100 ML IVPB (13:39)
[2025-06-14] MEDS: ACETAMINOPHEN 500 MG/50 ML BAG 200 MG IVPB (13:40)
[2025-06-14] MEDS: VANCOMYCIN/WATER (PEG) 1 GM/200 ML BAG IVPB (13:40)
[2025-06-14] MEDS: Normal Saline 500 ML IV (13:41)
[2025-06-14 13:45] LABS: Platelet Count 721 10^3/uL (130-400)
[2025-06-14 13:46] LABS: RBC Morphology Normal
[2025-06-14] MEDS: MORPHine 10 MG/ML VIAL 2 MG IVP (13:46)
[2025-06-14 14:25] LABS: ALT < 7 U/L (10-49); AST 13 U/L (<34); Albumin 3.1 g/dL (3.2-5.0); Alkaline Phosphatase 69 U/L (46-116); Anion Gap 7.1 mmol/L (3-11); BUN 7 mg/dL (9-23); Bilirubin, Total 0.20 mg/dL (0.2-1.2); CO2 27.1 mmol/L (20.0-31.0); Calcium 7.9 mg/dL (8.3-10.6); Chloride 100 mmol/L (98-107); Glucose 126 mg/dL (74-106); Potassium 3.7 mmol/L (3.5-5.1); Sodium 134 mmol/L (136-145); Total Protein 5.8 g/dL (5.7-8.2)
[2025-06-14] MEDS: Normal Saline - Diluent 50 ML VIAL IJ (14:44)
[2025-06-14] MEDS: Normal Saline Flush 10 ML SYR IVP (14:44)
[2025-06-14] MEDS: Omnipaque 350 MG/ML 100 ML BTL IJ (14:45)
[2025-06-14 14:48] LABS: COVID-19 PCR Negative (Negative); RSV PCR Negative (Negative)
--- NOTE | 2025-06-14 14:56 | DI.CT_ITS ---
Exam(s) CT ABDOMEN PELVIS W EXAM: CT ABDOMEN PELVIS W CLINICAL HISTORY: Right-sided abdominal pain TECHNIQUE: Imaging Protocol: Axial computed tomography images with coronal and sagittal reformatted images were created and reviewed. CONTRAST MATERIAL: Intravenous: Omnipaque 350 Contrast volume:70 mL Oral: No COMPARISON: CT CT CHEST PE CTA from 11/14/[address] ABDOMEN PELVIS W from 04/01/[address] CHEST PE ABD PELVIS W from 05/07/[address] CHEST PE ABD PELVIS W from 05/25/2025 FINDINGS: The examination is limited due to patient motion artifact. ABDOMEN: Lung Bases: No acute abnormality. Liver: Normal density. There is again seen and hypodensity in the right lobe of the liver measuring 2.5 cm. No new hepatic lesions are present. Portal, Superior Mesenteric, and Splenic Veins: Unremarkable. Gallbladder and Biliary Tract: No radiodense calculus or dilation. Pancreas: Normal density, no abnormal calcifications or inflammatory process. Spleen: Normal. Adrenals: No masses seen. Kidneys: Normal size, contour and axis. No radiodense stones or obstructive uropathy. No masses seen. Abdominal Aorta: Abdominal portion non-dilated. Atherosclerotic calcification is present. Bowel: No obstruction or bowel wall thickening. There is no evidence of appendicitis. The stomach is incompletely distended limiting evaluation. Peritoneal Cavity: No ascites, collection or mesenteric inflammatory response. No free air. Lymph Nodes: Within normal limits. Bones: Within normal limits for the patient's age. Soft Tissues: Unremarkable. PELVIS: Bladder: Symmetric distention, no gross wall thickening. Reproductive Organs: Unremarkable as visualized. Lymph Nodes: Within normal limits. Bones: Within normal limits for the patient's age. IMPRESSION: 1. No acute abdominal or pelvic process. 2. There has been no change in appearance of the right renal collecting system compared to multiple prior examinations. There is normal and symmetric enhancement of the kidneys. No nephrolithiasis is seen. 3. Stable right hepatic lesions suspicious for metastatic disease. 4. The appendix is not visualized. No right lower quadrant inflammatory process is seen at this time. If there is continued concern a repeat examination may be obtained with oral and IV contrast. 5. The preliminary [facility] report was reviewed. RADIATION DOSE DELIVERED: 258.56mGy.cm Total DLP DATA REPOSITORY: All CT scans at this facility are submitted to the National Radiology Data Registry (NRDR) Dose Index Registry (DIR) with the [employer] (A[employer]). RADIATION OPTIMIZATION: All CT scans at this facility use at least one of these dose optimization techniques: automated exposure control; mA and/or kV adjustment per patient size (includes targeted exams where dose is matched to clinical indication); or iterative reconstruction.
[2025-06-14] MEDS: Normal Saline 100 ML 400 ML (14:57)
[2025-06-14] MEDS: Calcium Gluconate 1,000 MG/10 ML VIAL 1000 MG IVP (14:57)
[2025-06-14] MEDS: oxyCODONE 5 MG TAB PO ×2 (15:28→17:27)
[2025-06-14 15:29] LABS: Glucose Negative (Negative)
--- NOTE | 2025-06-14 15:33 | DI.[facility]_ITS ---
Addendum created by Brynn Kraus MD on 06/14/2025 3:38:17 PM EST: THIS REPORT CONTAINS FINDINGS THAT MAY BE CRITICAL TO PATIENT CARE. The findings were verbally communicated via telephone conference with Dr. Macario Olsen at 3:37 PM EST on 06/14/2025. The findings were acknowledged and understood. Initial report created on 06/14/2025 3:33:11 PM EST: PROCEDURE INFORMATION: Exam: CT Abdomen And Pelvis With Contrast Exam date and time: 06/14/2025 2:46 PM Age: 59 years old Clinical indication: Abdominal pain; Other: RT idd; RT sied abd pain; Additional info: HX lung CA TECHNIQUE: Imaging protocol: Computed tomography of the abdomen and pelvis with contrast. Radiation optimization: All CT scans at this facility use at least one of these dose optimization techniques: automated exposure control; mA and/or kV adjustment per patient size (includes targeted exams where dose is matched to clinical indication); or iterative reconstruction. Contrast material: OMNI 350; Contrast volume: 70 ml; Contrast route: INTRAVENOUS (IV); COMPARISON: CT CHEST PE ABD PELVIS W 05/25/2025 2:42 AM FINDINGS: Liver: Subtle low-attenuation mass in the right lobe of the liver measures 2.8 x 2.2 cm. Worrisome for metastatic disease. Gallbladder and biliary ducts: The gallbladder is unremarkable Pancreas: Normal. No ductal dilation. Spleen: Normal. No splenomegaly. Adrenal glands: Normal. No mass. Kidneys and ureters: Mild dilatation of the right collecting system and proximal right ureter . Distal right ureter is not well visualized. No definite right ureteral calculus. Stomach and bowel: Diverticulosis of the rectosigmoid. No diverticulitis Appendix: The appendix is not identified.. Intraperitoneal space: Unremarkable. No free air. No significant fluid collection. Vasculature: Unremarkable. No abdominal aortic aneurysm. Lymph nodes: Unremarkable. No enlarged lymph nodes. Urinary bladder: Unremarkable as visualized. Reproductive: Unremarkable as visualized. Bones/joints: Unremarkable. No acute fracture. Soft tissues: Unremarkable. IMPRESSION: 1. Subtle low-attenuation mass in the right lobe of the liver measures 2.8 x 2.2 cm. Worrisome for metastatic disease. 2. Mild dilatation of the right collecting system and proximal right ureter . Distal right ureter is not well visualized. No definite right ureteral calculus. 3. The appendix is not identified.. If acute appendicitis is suspected, recommend repeat study with oral contrast after oral contrast reaches the rectum. Additional IV contrast would also be helpful Dictated and Authenticated by: Brynn Kraus MD. Orderin Mirella Campos MD
--- NOTE | 2025-06-14 15:34 | DI.[facility]_ITS ---
PROCEDURE INFORMATION: Exam: XR Chest Exam date and time: 06/14/2025 2:57 PM Age: 59 years old Clinical indication: Other: Sepsis; HX lung CA TECHNIQUE: Imaging protocol: Radiologic exam of the chest. Views: 1 view. COMPARISON: CR XR PORTABLE CHEST AP 06/02/2025 9:46 PM FINDINGS: Lungs: Again noted is opacity in the right upper lobe has been previously demonstrated to be a lung mass.. Pleural spaces: Unremarkable. No pleural effusion. No pneumothorax. Heart/Mediastinum: Unremarkable. No cardiomegaly. Bones/joints: Unremarkable. IMPRESSION: Again noted is opacity in the right upper lobe has been previously demonstrated to be a lung mass.. Dictated and Authenticated by: Brynn Kraus MD. Orderin Mirella Campos MD
[2025-06-14 15:37] LABS: C & S Indicated? No; RBC 0-2 HPF (0-2); WBC Negative HPF (0-5)
--- NOTE | 2025-06-14 17:10 | W.PM.HP.N ---
Date of service: 06/14/25 Time of Service: 17:10 Assessment and Plan Assessment and plan (1) Fever: Status: Acute Assessment and plan: No source of fever identified today with negative chest x-ray CT of the abdomen and pelvis, UA she has had multiple recent extensive negative infectious work ups and courses of antibiotics Blood cultures are pending Acetaminophen as needed (2) Non-small cell lung cancer metastatic to liver: Status: Acute Assessment and plan: Patient has a massive right upper lung tumor with metastases to liver and bone She is followed by [facility] oncology Active ongoing symptoms of pain, nausea, vomiting, diarrhea persist as per last hospitalization She has declined many recommended interventions (3) 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 Patient castigates previous providers and previous nurses 2. Patient asks next provider to be the one who finds her diagnosis 3. Patient has complex explanations for why her condition is unique to her and her alone 4. Patient has complex explanations for why she can or cannot take a medication or accept a treatment 5. Patient unavailable for shared decision making, persisting in her explanations of side issues At this point the barriers to her getting treatment are psychiatric. Mood issues may improve with carbemazepine as well. Continuing this. (4) Cancer related pain: Status: Chronic Assessment and plan: adjust pain management as needed. (5) COPD (chronic obstructive pulmonary disease): Status: Chronic Assessment and plan: - Without acute exacerbation - Continue home inhaler regimen when she accepts it. (6) Anemia: Status: Chronic Assessment and plan: Stable hemoglobin at 9.2 with recent baseline 7.8-9.4 (7) DVT prophylaxis: Status: Acute Assessment and plan: High risk. Declines subcut injections or SCDs. Per [place] score (VTE in cancer patients) she is 3, which is high risk and worth using DOAC at preventive dose. Carbemazepine reduces effectiveness, but still better than nothing so will continue to use this if she will take it. History of Present Illness Narrative: This is a 59-year-old female patient with metastatic non-small cell lung cancer, emotionally unstable borderline personality disorder, multiple recent extended hospitalizations who presented to the emergency department by EMS after she summonsed them with complaints of several days of intractable nausea vomiting diarrhea. She was noted to have a temperature of 100.5 tachycardic and tachypneic. She received broad-spectrum antibiotics in the emergency department to include cefepime and vancomycin. She received a 500 cc fluid bolus. For pain management she did receive IV acetaminophen, morphine and 3 doses of oxycodone 5 mg. There was no source of infection identified with a negative x-ray of the chest for an acute infectious process and negative CT abdomen and pelvis with no acute intraabdominal or pelvic process. Lactic acid was normal white count 11 and blood cultures pending. Hospitalist services was asked to admit for further management and monitoring. -- Multiple recent hospitalizations for nausea vomiting diarrhea and fever, has been treated with antibiotics but no source of infection identified. Fever is likely tumor fever from her cancer, she has had a negative C. difficile on May 29 but reasonable to repeat as she was just treated with Augmentin. 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 (Acute) Hypercoagulable state (Acute) Thrombocytosis (Acute) Acute dehydration (Acute) Sepsis (Acute) Moderate protein-calorie malnutrition (Acute) Non-small cell lung cancer metastatic to liver (Acute) Malnutrition (Acute) Nicotine dependence (Acute) Cough (Acute) Allodynia (Acute) Liver mass (Acute) Metastatic primary lung cancer (Acute) Enteritis (Acute) Lung mass (Acute) Pain (Acute) Cancer related pain (Chronic) Right ear pain (Acute) Myofascial pain (Acute) Chronic pain (Chronic) Generalized weakness (Acute) Advanced care planning/counseling discussion (Acute) COPD (chronic obstructive pulmonary disease) (Chronic) Generalized pain (Acute) Non-small cell lung cancer metastatic to bone (Acute) Scoliosis (Acute) Hernia of abdominal cavity (Acute) Decreased appetite (Acute) Refractory migraine with aura (Acute) Posttraumatic stress disorder (Acute) Nausea (Acute) Asthma (Chronic) Tremor (Acute) Influenza A (Acute) Generalized hyperhidrosis (Acute) Exposure to viral hepatitis (Acute) (Suspected) Functional tremor (Acute) Vertigo (Acute) Weakness (Acute) Fibromyalgia (Acute) High risk medication use (Acute) History of tobacco abuse (Acute) High blood sugar (Acute) Pulmonary nodule (Acute) Nicotine dependence, cigarettes, uncomplicated (Acute) Mass of upper lobe of right lung (Acute) Lesion of ulnar nerve (Acute) Ovarian cyst (Acute) Fatigue (Acute) Note hx fibromyalgia on problem list Depression (Chronic) Medical History Thoracic outlet syndrome UTI (urinary tract infection) Enterocolitis Polyneuropathy Chemotherapy induced nausea and vomiting Chronic abdominal pain Abnormal findings on diagnostic imaging of lung Tobacco dependence syndrome Left lower quadrant pain Low back pain Rheumatoid arthritis Deviated nasal septum Chronic pain syndrome Chronic pain due to malignant neoplastic disease Malignant neoplasm metastatic to bone Palliative care patient Pneumonia Advance care planning Palliative care encounter Sepsis Constipation Anxiety Metastatic primary lung cancer Chronic back pain Cervical dysplasia Surgical History H/O endoscopy Hx of colonoscopy H/O LEEP Family History Mother Cancer family history of CA Mother bladder questioning ovarian ca Uncle brain CA Grand father CA unknown origin. 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Medication ?Instructions ?Recorded ?Confirmed ?Type cholecalciferol (vitamin D3) 25 125 mcg PO DAILY 01/05/22 06/14/25 History mcg (1,000 unit) capsule albuterol sulfate 2.5 mg/3 mL 2.5 mg (3 mL) inhalation Q4H PRN 12/22/23 06/14/25 Rx (0.083 %) solution for nebulization shortness of breath or wheezing #540 mL ondansetron 4 mg disintegrating 4 mg PO Q8H PRN 04/24/24 06/14/25 History tablet Bacillus coagulans-inulin 1 1 cap PO DAILY 05/23/24 06/14/25 History billion cell-250 mg capsule (Probiotic with Prebiotic) budesonide-formoterol HFA 160 1 puff inhalation 6XD PRN wheezing 11/27/24 06/14/25 Rx mcg-4.5 mcg/actuation aerosol #10.2 grams inhaler (Symbicort) ipratropium 20 mcg-albuterol 100 1 puff inhalation Q6H #4 grams 01/07/25 06/14/25 Rx mcg/actuation mist for inhalation (Combivent Respimat) albuterol sulfate 90 mcg/actuation See Rx Instructions .Route 03/20/25 06/14/25 Rx aerosol inhaler (Ventolin HFA) .COMPLEX #18 grams albuterol sulfate 1.25 mg/3 mL 1.25 mg inhalation 3XD 03/24/25 06/14/25 History solution for nebulization aluminum-mag hydroxide-simethicone 10 ml PO 4XD PRN 03/24/25 06/14/25 History 200 mg-200 mg-20 mg/5 mL oral susp (Antacid-[place]) omeprazole 20 mg capsule,delayed 20 mg PO PRN PRN 04/22/25 06/14/25 History release diclofenac sodium 1 % topical gel 2 g topical QID PRN pain #100 grams 04/25/25 06/14/25 Rx acetaminophen 500 mg tablet 1,000 mg PO TID 05/08/25 06/14/25 History oxycodone 5 mg tablet 5 mg PO Q4H PRN 05/08/25 06/14/25 History oxycodone 20 mg tablet,crush 20 mg PO Q12H #20 tabs 05/18/25 06/14/25 Rx resistant,extended release 12 hr (OxyContin) ketorolac 10 mg tablet 10 mg PO Q6H #16 tabs 05/23/25 06/14/25 Rx naloxone 4 mg/actuation nasal 4 mg intranasal Q2M PRN 05/25/25 06/14/25 History spray (Narcan) apixaban 2.5 mg tablet (Eliquis) 2.5 mg PO BID 90 days #180 tabs 06/05/25 06/14/25 Rx carbamazepine 200 mg tablet 100 mg (1/2 x 200 mg) PO BID #90 06/05/25 06/14/25 Rx tabs celecoxib 100 mg capsule (Celebrex) 100 mg PO HS #90 caps 06/05/25 06/14/25 Rx fentanyl 75 mcg/hr transdermal 75 mcg transdermal Q72H #3 ea 06/05/25 06/14/25 Rx patch lorazepam 0.5 mg tablet 1 mg (2 x 0.5 mg) PO Q6H PRN PRN 06/05/25 06/14/25 Rx #12 tabs Results Labs 06/14/25 13:17 06/14/25 13:17 Labs: Laboratory Results - last 24 hr 06/14/25 06/14/25 06/14/25 13:17 14:00 15:06 WBC 11.08 H RBC 3.25 L Hgb 9.2 L Hct 28.1 L MCV 87 MCH 28.3 MCHC 32.7 RDW 15.9 H Plt Count 721 H MPV 8.2 Immature Gran % 0.5 Neutrophils % 81.0 Lymphocytes % 7.3 Monocytes % 10.3 Eosinophils % 0.3 Basophils % 0.6 Nucleated RBC % 0.0 Absolute Neutrophils 8.97 H Absolute Lymphocytes 0.81 L Absolute Monocytes 1.14 H Absolute Eosinophils 0.03 Absolute Basophils 0.07 RBC Morphology Normal VBG Lactate 1.6 Sodium 134 L Potassium 3.7 Chloride 100 Carbon Dioxide 27.1 Anion Gap 7.1 BUN 7 L Creatinine 0.46 L Est GFR (CKD-EPI 2020) 138.33 Glucose 126 H Calcium 7.9 L Total Bilirubin 0.20 AST 13 ALT < 7 L Alkaline Phosphatase 69 Total Protein 5.8 Albumin 3.1 L Urine Color Yellow Urine Clarity Clear Urine pH 6.0 Ur Specific [place] <= 1.005 Urine Protein Negative Urine Ketones Negative Urine Blood Trace-intact H Urine Nitrite Negative Urine Bilirubin Negative Urine Urobilinogen 0.2 Ur Leukocyte Esterase Negative Urine RBC 0-2 Urine WBC Negative Ur Epithelial Cells Rare Urine Crystals Negative Urine Bacteria Negative Urine Casts Negative Urine Mucus Negative Ur Culture Indicated? No Urine Glucose Negative COVID-19 Source Nasopharynx SARS-CoV-2 (PCR) Negative Influenza Type A (PCR) Negative Influenza Type B (PCR) Negative RSV (PCR) Negative Last Vital Signs Temp 37.8 C H 06/14/25 13:06 Pulse 113 H 06/14/25 13:06 Resp 20 06/14/25 13:06 BP 98/54 L 06/14/25 13:06 Pulse Ox 98 06/14/25 13:06 VTE Prohylaxis Risk Level: Moderate/High Risk Contraindications: None Prophylaxis: Patient anticoagulated Time Spent Time spent with Patient: 40-54 minutes Time was spent: preparing to see the patient(eg.review tests), ordering medications,tests, procedures and indepentently interpreting results
[2025-06-14] MEDS: Ondansetron 4 MG/2 ML VIAL IVP ×2 (17:27→20:23)
[2025-06-14] MEDS: Albuterol/Ipratropium 3 ML UPD VIAL UPD (17:28)
--- NOTE | 2025-06-14 17:48 | W.PC.ACHO ---
Registration Status: REG ER Primary Language: Preferred Language: ED Information & Data Chief Complaint Fever 06/14/25 13:47 Chief Complaint Fever 06/14/25 12:55 Other Complaint Nausea/Vomit/Diar 06/14/25 12:55 Triage Note n/v/d, several several days. 06/14/25 12:55 ems got temp 100.5 Medical / Surgical History (Last Reviewed 05/15/25 @ 09:30 by Leo Weeks MD) Pneumonia Thoracic outlet syndrome UTI (urinary tract infection) Enterocolitis Polyneuropathy Chemotherapy induced nausea and vomiting Chronic abdominal pain Abnormal findings on diagnostic imaging of lung Tobacco dependence syndrome Left lower quadrant pain Low back pain Rheumatoid arthritis Deviated nasal septum Chronic pain syndrome Chronic pain due to malignant neoplastic disease Malignant neoplasm metastatic to bone Palliative care encounter Sepsis Constipation Anxiety Metastatic primary lung cancer Chronic back pain Cervical dysplasia (Last Reviewed 05/15/25 @ 09:29 by Leo Weeks MD) H/O endoscopy Hx of colonoscopy H/O LEEP Most Recent Vital Signs Temperature 37.8 C H 06/14/25 13:06 Pulse 111 H 06/14/25 17:10 Pulse 101 H 06/14/25 16:15 Respiratory Rate 34 H 06/14/25 17:10 Blood Pressure 98/53 L 06/14/25 17:01 Blood Pressure Mean 66 06/14/25 17:01 Pulse Oximetry 94 06/14/25 17:10 Oxygen Delivery Method Room Air 06/14/25 13:06 Allergies levofloxacin Allergy (Unknown, Verified 05/14/25 07:12) Other (See Comment) severe headache, muscle ache, joint pain and inflammation. even my skin hurt. gabapentin Allergy (Verified 05/14/25 07:12) sharp shooting pains pregabalin Allergy (Verified 05/14/25 07:12) sharp shooting pain pseudoephedrine (From Sudafed) Adverse Reaction (Unknown, Verified 05/14/25 07:12) Other (See Comment) narcotics Adverse Reaction (Unknown, Uncoded 05/14/25 07:12) gi upset Active Medications Generic Name Dose Route Start Last Admin Trade Name Freq PRN Reason Stop Dose Admin Albuterol/Ipratropium 3 ml 06/14/25 16:21 06/14/25 17:28 Albuterol/Ipratropium 3 Ml Upd Vial UPD 3 ml Q3H PRN PRN Administration Iohexol 100 ml 06/14/25 14:45 06/14/25 14:45 Omnipaque 350 Mg/Ml 100 Ml Btl IJ 07/14/25 23:59 70 ml DIRECTED FARHAD Administration Sodium Chloride 50 ml 06/14/25 14:45 06/14/25 14:44 Normal Saline - Diluent 50 Ml Vial IJ 50 ml DIRECTED FARHAD Administration Sodium Chloride 0 ml 06/14/25 14:41 06/14/25 14:44 Normal Saline Flush 10 Ml Syr IVP 10 ml PRN PRN Administration IV IV Catheter Type [Right Saline Lock Forearm] IV Catheter Type [Right Saline Lock Antecubital] IV Catheter Gauge [Right 18 Forearm] IV Catheter Gauge [Right 18 Antecubital] Diagnostics 06/14/25 06/14/25 06/14/25 Range/Units 15:06 14:00 13:17 WBC 11.08 H (4.4-10.8) 10^3/uL RBC 3.25 L (3.93-5.22) 10^6/uL Hgb 9.2 L (11.2-15.7) g/dL Hct 28.1 L (36.0-46.0) % MCV 87 (80-95) fL MCH 28.3 (27.0-33.0) pg MCHC 32.7 (32.0-36.0) % RDW 15.9 H (11.7-14.6) % Plt Count 721 H (130-400) 10^3/uL MPV 8.2 (8.0-11.0) fL Immature Gran % 0.5 % Neutrophils % 81.0 % Lymphocytes % 7.3 % Monocytes % 10.3 % Eosinophils % 0.3 % Basophils % 0.6 % Nucleated RBC % 0.0 (0.0-0.3) % Absolute Neutrophils 8.97 H (1.2-6.7) 10^3/uL Absolute Lymphocytes 0.81 L (1.2-3.4) 10^3/uL Absolute Monocytes 1.14 H (0.1-0.8) 10^3/uL Absolute Eosinophils 0.03 (0.0-0.7) 10^3/uL Absolute Basophils 0.07 (0.0-0.2) 10^3/uL RBC Morphology Normal VBG Lactate 1.6 (<or=2.0) mmol/L Sodium 134 L (136-145) mmol/L Potassium 3.7 (3.5-5.1) mmol/L Chloride 100 (98-107) mmol/L Carbon Dioxide 27.1 (20.0-31.0) mmol/L Anion Gap 7.1 (3-11) mmol/L BUN 7 L (9-23) mg/dL Creatinine 0.46 L (0.55-1.02) mg/dL Est GFR (CKD-EPI 2020) 138.33 (mL/min/1.73m2) Glucose 126 H (74-106) mg/dL Calcium 7.9 L (8.3-10.6) mg/dL Total Bilirubin 0.20 (0.2-1.2) mg/dL AST 13 (<34) U/L ALT < 7 L (10-49) U/L Alkaline Phosphatase 69 (46-116) U/L Total Protein 5.8 (5.7-8.2) g/dL Albumin 3.1 L (3.2-5.0) g/dL Urine Color Yellow (Yellow) Urine Clarity Clear (Clear) Urine pH 6.0 (5-8) Ur Specific [place] <= 1.005 (1.005-1.025) Urine Protein Negative (Neg-Trace) mg/dL Urine Ketones Negative (Negative) mg/dL Urine Blood Trace-intact H (Negative) Urine Nitrite Negative (Negative) Urine Bilirubin Negative (Negative) Urine Urobilinogen 0.2 (Up to 0.2) mg/dL Ur Leukocyte Esterase Negative (Negative) Urine RBC 0-2 (0-2) HPF Urine WBC Negative (0-5) HPF Ur Epithelial Cells Rare (Negative) HPF Urine Crystals Negative (Negative) HPF Urine Bacteria Negative (Negative) HPF Urine Casts Negative (Negative) LPF Urine Mucus Negative (Negative) Ur Culture Indicated? No Urine Glucose Negative (Negative) mg/dL COVID-19 Source Nasopharynx SARS-CoV-2 (PCR) Negative (Negative) Influenza Type A (PCR) Negative (Negative) Influenza Type B (PCR) Negative (Negative) RSV (PCR) Negative (Negative) 06/14/25 13:17 Blood Culture - Pending Blood 06/14/25 13:12 Blood Culture - Pending Blood Intake and Output - 24 Hour Total 11/29/25 12:48 thru 06/14/25 15:17 Intake Total 850 Balance 850 Weight 52.617 kg Intake: IV 850 Falls Risk Assessment History of Falls No History 06/14/25 13:47 Contributing Factors No Factors 06/14/25 13:47 Ambulatory Aids Independent 06/14/25 13:47 Tubes/Lines None 06/14/25 13:47 Gait Evaluation No gait disturbance 06/14/25 13:47 Cognition No cognitive impairment 06/14/25 13:47 Fall Total Score 0 06/14/25 13:47 Level of Risk Standard/Low Risk 06/14/25 13:47 Problems (Last Reviewed 05/15/25 @ 09:30 by Leo Weeks MD) Acute generalized abdominal pain (Acute) Tachycardia (Acute) Hypocalcemia (Acute) DVT prophylaxis (Acute) Anemia (Chronic) Fever (Acute) 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 Additional Patient Information/Comments: Report Received From: Jose ARNETT in ed @ [id number]
[2025-06-14] MEDS: oxyCODONE-CR 20 MG TABCR PO (20:22)
[2025-06-14] MEDS: carBAMazepine 200 MG TAB 100 MG PO (20:22)
[2025-06-14] MEDS: Acetaminophen 500 MG TAB 1000 MG PO (20:22)
[2025-06-14] MEDS: oxyCODONE 10 MG TAB PO (23:17)
[2025-06-15] MEDS: Ondansetron 4 MG/2 ML VIAL IVP ×6 (00:33→23:33)
[2025-06-15] MEDS: oxyCODONE 10 MG TAB PO ×5 (02:38→23:33)
--- NOTE | 2025-06-15 07:09 | NUR.NOTE ---
Accessed chart for training with [facility]
[2025-06-15 07:14] VITALS: BP 98/51; PULSE 97; RESP 17; TEMP 37.2; O2SAT 95
[2025-06-15] MEDS: Ipratropium/Albuterol 4 GM 120 PUFF INH IH ×3 (08:30→20:10)
[2025-06-15] MEDS: Cholecalciferol (Vitamin D3) 1,000 UNIT TAB 5000 UNITS PO (08:33)
[2025-06-15] MEDS: carBAMazepine 200 MG TAB 100 MG PO ×2 (08:34→20:01)
[2025-06-15] MEDS: Acetaminophen 500 MG TAB 1000 MG PO ×3 (08:36→20:01)
[2025-06-15] MEDS: Lactobacillus Acidophilus CAP 1 CAP PO (08:36)
[2025-06-15] MEDS: oxyCODONE-CR 20 MG TABCR PO ×2 (08:39→20:01)
[2025-06-15] MEDS: Normal Saline Flush 10 ML SYR IVP ×2 (08:46→20:02)
--- NOTE | 2025-06-15 08:54 | INITIAL_ITS ---
Date of service: 06/15/25 Time of Service: 08:54 Care Management Initial Assmt Initial Assessment Reason for Hospitalization: fever - metastatic cancer Functional Status/Living Situation Patient Presentation: Nakita presented to the ED yesterday with fever, nausea, vomiting and diarrhea. She also c/o generalized weakness. 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 Nakita is experiencing a lot of pain, n/v and diarrhea due to this tumor. She is currently not receiving treatment, as she consistently states that she needs her pain controlled before she can continue with treatment. Nakita has refused many of the recommendations for her comfort and care.She had been seen in the pain clinic, but it does not appear that she has had a visit with them since March. Nakita is followed by palliative care, and is supported through [facility]. Nakita was sitting up in the bed, moaning, when CM met with her this afternoon. Nakita and CM know each other from previous admissions. She did not really want to talk. She stated that she fell the day she got home last time, and was never very comfortable. She saw her PCP on 06/09, and was upset that she talked very frankly to her in a common area of the office and in front of her 15yo. Nakita also stated that her pain regime is all messed up again, and she is in constant 8-9/10 pain. She appeared thinner to CM than when she discharged on 06/05, and Nakita does believe that she has lost some weight. She is still having trouble with heart burn and diarrhea. Nakita did not really want to talk with CM today. She asked that I come back tomorrow. Per , Nakita refused service when offered. Nakita stated to CM that she does not remember being notified. Town of Residence: [facility] Resides with: Child (teenager) Significant Other/Family: Local (son, Homa and his are particularly involved. 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 She is not really able to enjoy those activities anymore Medications Medication Management: No Issues/Barriers identified Advance Directives Advance Directives: Do you have an Advance Directive: N , 08:39 AD On File at [facility]: N 02/27/25, 08:39 Date Asked 05/25/25 05/26/25, 04:16 AD Date Reviewed COLST On File at [facility] COLST Date Scanned Code Status Resuscitation Status Full Code Portal Pt does not currently have a portal and education provided: No Insurance Coverage/Financial Issues Insurance: [place] Medicaid Care Team Visit Care Team Role Provider Type Analy Tai Primary Care Provider NURSE PRACTITIONER Macario Olsen MD Emergency Provider [facility] STAFF PHYSICIAN Dakota Naik MD Admit Provider [facility] STAFF PHYSICIAN Attending Provider Discharge Potential Discharge Needs: PT Evaluation, PCP F/U Appt and Other (oncology f/u) Anticipated Barriers to Discharge: Medical Status Patient/Family Education Needs: Review discharge instructions, discuss Ask Me Three Transportation: Private vehicle (with son, vs RCT) Plan: Anticipate Nakita will return home once medically cleared. HH services will again be offered - SN, PT/OT and CUPOLA TENDER. Her son will drive her home via private vehicle, or she may need RCT, when ready. She will follow up with her PCP, and be encouraged to f/u with her oncologist, and continue per her discharge plan of care. CM will continue to follow. Social Determinants of Health Screening Social Determinants of health last assessed in clinic: 06/15/25 Will the Patient Participate in the Screening?: Yes Do you worry about having a steady place to live?: no Problems where you live: no known problems In the past 12 months, have you had to go without electric, gas, oil or water in your home?: no 1. Within the past 12 months, we worried whether our food would run out before we got money to buy more.: Don't know/refused 2. Within the past 12 months, the food we bought just didn't last and we didn't have money to get more.: Don't know/refused Has lack of transportation kept you from medical appointments or from doing things needed for daily living?: no Has anyone in your life made you feel unsafe or unsupported?: no How hard is it for you to pay for the very basics like food, housing, medical care, and heating? Would you say it is:: Somewhat hard Do you want help finding or keeping work or a job?: I do not need or want help If for any reason you need help with day-to-day activities such as bathing, preparing meals, shopping, managing finances, etc., do you get the help you need?: I don?t need any help How often do you feel lonely or isolated from those around you?: Never Do you speak a language other than Turkish at home?: No Does the patient want assistance with any of the above?: No Comments: pt expresses desire for hospice Health Related Social Needs Health related social needs: problems related to housing/economic circumstances (Z59.89) PFSH All Active Problems (Updated 06/14/25 @ 17:32 by Sandi Mireles NP) Acute generalized abdominal pain (Acute) Tachycardia (Acute) Hypocalcemia (Acute) DVT prophylaxis (Acute) Anemia (Chronic) Fever (Acute) 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 (Acute) Hypercoagulable state (Acute) Thrombocytosis (Acute) Acute dehydration (Acute) Sepsis (Acute) Moderate protein-calorie malnutrition (Acute) Non-small cell lung cancer metastatic to liver (Acute) Malnutrition (Acute) Nicotine dependence (Acute) Cough (Acute) Allodynia (Acute) Liver mass (Acute) Metastatic primary lung cancer (Acute) Enteritis (Acute) Lung mass (Acute) Pain (Acute) Cancer related pain (Chronic) Right ear pain (Acute) Myofascial pain (Acute) Chronic pain (Chronic) Generalized weakness (Acute) Advanced care planning/counseling discussion (Acute) COPD (chronic obstructive pulmonary disease) (Chronic) Generalized pain (Acute) Non-small cell lung cancer metastatic to bone (Acute) Scoliosis (Acute) Hernia of abdominal cavity (Acute) Decreased appetite (Acute) Refractory migraine with aura (Acute) Posttraumatic stress disorder (Acute) Nausea (Acute) Asthma (Chronic) Tremor (Acute) Influenza A (Acute) Generalized hyperhidrosis (Acute) Exposure to viral hepatitis (Acute) (Suspected) Functional tremor (Acute) Vertigo (Acute) Weakness (Acute) Fibromyalgia (Acute) High risk medication use (Acute) History of tobacco abuse (Acute) High blood sugar (Acute) Pulmonary nodule (Acute) Nicotine dependence, cigarettes, uncomplicated (Acute) Mass of upper lobe of right lung (Acute) Lesion of ulnar nerve (Acute) Ovarian cyst (Acute) Fatigue (Acute) Note hx fibromyalgia on problem list Depression (Chronic) Medical History Thoracic outlet syndrome UTI (urinary tract infection) Enterocolitis Polyneuropathy Chemotherapy induced nausea and vomiting Chronic abdominal pain Abnormal findings on diagnostic imaging of lung Tobacco dependence syndrome Left lower quadrant pain Low back pain Rheumatoid arthritis Deviated nasal septum Chronic pain syndrome Chronic pain due to malignant neoplastic disease Malignant neoplasm metastatic to bone Palliative care patient Pneumonia Advance care planning Palliative care encounter Sepsis Constipation Anxiety Metastatic primary lung cancer Chronic back pain Cervical dysplasia Surgical History H/O endoscopy Hx of colonoscopy H/O LEEP Family History Mother Cancer family history of CA Mother bladder questioning ovarian ca Uncle brain CA Grand father CA unknown origin. 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 Do you feel safe at home: Yes Do you feel safe in your relationship?: Yes Additional Social history: 1 kid age 15 still at home Readmission Within the Past 30 Days Yes or No: Yes Date of First Admission Date of 1st Admission: 05/25/25 Date of this Admission Date of Admission: 06/14/25 This admission was: Through ED Office Visit Since 1st Admission Have you seen your PCP in the office since discharge?: Yes Date of PCP Appointment: 06/09/25 If the patient had a VNA ordered Did the patient have a VNA order?: Yes If the patient had home care service Call them to discuss the patient's admission: Nakita refused HH services ED visits How many ED visits in the past 12 months: 12 Assessment for Readmission Summary of readmission circumstances, based upon interviews: It appears to the team that Nakita is not fully able to come to terms with her poor prognosis. Anticipated HH Services Anticipated HH Services at Discharge [facility]UPOLA TENDER, OT, PT and RN Following Provider: Analy Tai.
[2025-06-15] MEDS: Apixaban 2.5 MG TAB PO ×2 (11:10→20:01)
--- NOTE | 2025-06-15 17:11 | W.PM.PROGNOT ---
Date of Service Date of service: 06/15/25 Time of Service: 08:00 Assessment and Plan Assessment and plan (1) Fever: Status: Acute Assessment and plan: Fever without source other than active metastatic malignancy with large mass in upper right chest, likely with necrosis, atelectasis and compression of critical structures Blood cultures with one bottle growing Gram+ rods and Gram+ cocci, vanc and cefepime started Jun 15 Patient has febrile episodes in the late afternoon with tachycardia and pain spikes; premedicating with tylenol and pain meds (2) Non-small cell lung cancer metastatic to liver: Status: Acute Assessment and plan: Patient has a massive right upper lung tumor with metastases to liver and bone She is followed by [facility] oncology Active ongoing symptoms of pain, nausea, vomiting, diarrhea persist as per last hospitalization She has declined many recommended interventions Ethics committee was engaged during her last hospitalization, with community health providers engaging in care Patient's palliative care doc is Kehinde Porras (3) 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 Patient castigates previous providers and previous nurses 2. Patient asks next provider to be the one who finds her diagnosis 3. Patient has complex explanations for why her condition is unique to her and her alone 4. Patient has complex explanations for why she can or cannot take a medication or accept a treatment 5. Patient unavailable for shared decision making, persisting in her explanations of side issues At this point the barriers to her getting treatment are psychiatric. Mood issues may improve with carbemazepine as well. Continuing this. (4) Cancer related pain: Status: Chronic Assessment and plan: adjust pain management as needed. (5) COPD (chronic obstructive pulmonary disease): Status: Chronic Assessment and plan: - Without acute exacerbation - Continue home inhaler regimen when she accepts it. (6) Anemia: Status: Chronic Assessment and plan: Stable hemoglobin at 9.2 with recent baseline 7.8-9.4 (7) DVT prophylaxis: Status: Acute Assessment and plan: High risk. Declines subcut injections or SCDs. Per Krorana score (VTE in cancer patients) she is 3, which is high risk and worth using DOAC at preventive dose. Carbemazepine reduces effectiveness, but still better than nothing so will continue to use this if she will take it. Subjective Subjective Interval history since last seen: Ms. Hancock reports that she is in pain constantly, intolerable. She naps after she is given narcotics. Exam Narrative Exam Narrative: General: This is an emotional, thin woman in active distress due to reported pain HEENT: Normocephalic, atraumatic CV: RRR Resp: Pain with inspiration, absent breath sounds right upper lung, no dyspnea Abd: soft, NTND MSK: voluntary motion x4 Neuro: awake, alert, no focal deficits Objective Last Vital Signs Temp 37.2 C 06/15/25 07:14 Pulse 97 H 06/15/25 07:14 Resp 17 06/15/25 07:14 BP 98/51 L 06/15/25 07:14 Pulse Ox 95 06/15/25 07:14 VTE Prohylaxis Risk Level: Moderate/High Risk Contraindications: None Prophylaxis: Pharmacologic (Patient declines heparin-based products, DOACs) Time Spent with Patient Time Spent with Patient: 25-34 minutes Time was spent: preparing to see the patient(eg.review tests), obtaining and/or reviewing separately otained hiistory, ordering medications,tests, procedures, referring, communicating with other health medication care manager, indepentently interpreting results, counseling the patient and care coordination
[2025-06-15 19:37] VITALS: BP 98/53; PULSE 101; RESP 18; TEMP 37.4; O2SAT 94
[2025-06-15 23:31] VITALS: BP 101/59; PULSE 108; RESP 19; TEMP 36.8
[2025-06-16] MEDS: LORazepam 1 MG TAB PO (01:47)
[2025-06-16 02:48] VITALS: PULSE 114; RESP 16; O2SAT 91
[2025-06-16] MEDS: Albuterol/Ipratropium 3 ML UPD VIAL UPD (02:48)
[2025-06-16] MEDS: Ondansetron 4 MG/2 ML VIAL IVP ×2 (04:12→17:58)
[2025-06-16] MEDS: oxyCODONE 10 MG TAB PO ×5 (04:12→22:43)
[2025-06-16 07:39] VITALS: BP 96/55; PULSE 109; RESP 16; TEMP 37.5; O2SAT 93
[2025-06-16] MEDS: carBAMazepine 200 MG TAB 100 MG PO ×2 (08:31→20:11)
[2025-06-16] MEDS: Acetaminophen 500 MG TAB 1000 MG PO ×3 (08:32→20:12)
[2025-06-16] MEDS: Lactobacillus Acidophilus CAP 1 CAP PO (08:32)
[2025-06-16] MEDS: Cholecalciferol (Vitamin D3) 1,000 UNIT TAB 5000 UNITS PO (08:33)
[2025-06-16] MEDS: Apixaban 2.5 MG TAB PO ×2 (08:33→20:15)
[2025-06-16] MEDS: fentaNYL 75 MCG PATCH TD (08:34)
[2025-06-16] MEDS: Normal Saline Flush 10 ML SYR IVP ×3 (08:35→20:14)
[2025-06-16] MEDS: oxyCODONE-CR 20 MG TABCR PO (09:32)
[2025-06-16] MEDS: Ipratropium/Albuterol 4 GM 120 PUFF INH IH ×3 (09:34→21:27)
[2025-06-16] MEDS: fentaNYL 25 MCG PATCH TD (11:12)
--- NOTE | 2025-06-16 12:15 | CMPROGNOTE_ITS ---
Date of service: 06/16/25 Time of Service: 12:15 Care Management Progress Note Progress Note Text Progress Note Text: Nakita was lying down in bed when CM met with her. She stated that she is very tired today, and asked that she not be disturbed. She was apologetic for not being able to communicate with CM at that time, but stated that she had a very busy day and she was not able to participate in conversation. CM respected her wishes, and will plan to visit with her tomorrow. Per MD, she is on IV antibiotics, but the course is unclear at this time. Nakita has reportedly requested a hospital bed to be ordered for her home; PT consult was placed for evaluation of need/eligibility. CM will continue to follow. Discharge Potential Discharge Needs: Consult Consult Services Needed: Palliative and PCP F/U Appt Anticipated Barriers to Discharge: Medical Status and Other (pt requesting hospital bed) Patient/Family Education Needs: Review discharge instructions, discuss Ask Me Three Transportation: Private vehicle Plan: Anticipate Nakita will return home once medically cleared. HH services will again be offered - SN, PT/OT and TELEPHONE SALES REPRESENTATIVE. Her son will drive her home via private vehicle, or she may need RCT, when ready. She will follow up with her PCP, and be encouraged to f/u with her oncologist, and continue per her discharge plan of care. CM will continue to follow. Social Determinants of Health Screening Social Determinants of health last assessed in clinic: 06/16/25 Will the Patient Participate in the Screening?: Yes Do you worry about having a steady place to live?: no Problems where you live: no known problems In the past 12 months, have you had to go without electric, gas, oil or water in your home?: no 1. Within the past 12 months, we worried whether our food would run out before we got money to buy more.: Don't know/refused 2. Within the past 12 months, the food we bought just didn't last and we didn't have money to get more.: Don't know/refused Has lack of transportation kept you from medical appointments or from doing things needed for daily living?: no Has anyone in your life made you feel unsafe or unsupported?: no How hard is it for you to pay for the very basics like food, housing, medical care, and heating? Would you say it is:: Somewhat hard Do you want help finding or keeping work or a job?: I do not need or want help If for any reason you need help with day-to-day activities such as bathing, preparing meals, shopping, managing finances, etc., do you get the help you need?: I don?t need any help How often do you feel lonely or isolated from those around you?: Never Do you speak a language other than Hungarian at home?: No Does the patient want assistance with any of the above?: No Comments: pt expresses desire for hospice Health Related Social Needs Health related social needs: problems related to housing/economic circumstances (Z59.89)
[2025-06-16] MEDS: CEFEPIME 2 GM in Normal Saline 100 ML IVPB ×2 (12:50→20:13)
[2025-06-16] MEDS: VANCOMYCIN/WATER (PEG) 1 GM/200 ML BAG IVPB (14:23)
--- NOTE | 2025-06-16 16:49 | W.PM.PROGNOT ---
Date of Service Date of service: 06/16/25 Time of Service: 16:49 Assessment and Plan Assessment and plan (1) Fever: Status: Acute Assessment and plan: Fever without source other than active metastatic malignancy with large mass in upper right chest, likely with necrosis, atelectasis and compression of critical structures Blood cultures with one bottle growing Gram+ rods and Gram+ cocci, vanc and cefepime started Jun 15 but was not continued, resumed 06/16, repeat cultures. Narrow 06/17 when more specific culture results. (2) Non-small cell lung cancer metastatic to liver: Status: Acute Assessment and plan: Patient has a massive right upper lung tumor with metastases to liver and bone She is followed by [facility] oncology Active ongoing symptoms of pain, nausea, vomiting, diarrhea persist as per last hospitalization She has declined many recommended interventions Ethics committee was engaged during her last hospitalization, with community health providers engaging in care Patient's palliative care doc is Kehinde Porras, no change. 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 Patient castigates previous providers and previous nurses 2. Patient asks next provider to be the one who finds her diagnosis 3. Patient has complex explanations for why her condition is unique to her and her alone 4. Patient has complex explanations for why she can or cannot take a medication or accept a treatment 5. Patient unavailable for shared decision making, persisting in her explanations of side issues The barriers to her getting treatment are psychiatric. Mood issues may improve with carbemazepine, SNRI as below. (4) Cancer related pain: Status: Chronic Assessment and plan: On fentanyl patch 75mcg, oxycontin 20 BID, oxycodone 10mg prn Also on celecoxib at low dose, can increase to BID continue carbemazeipine for neuropathic component Increase fentanyl patch to 100mcg, stop oxycontin to simplify, increase prn oxycodone to 10-20mg. After discussion, try adding venlafaxine along with carbemazepine for pain adjuvants. (5) COPD (chronic obstructive pulmonary disease): Status: Chronic Assessment and plan: - Without acute exacerbation - Continue home inhaler regimen when she accepts it. (6) Anemia: Status: Chronic Assessment and plan: Stable hemoglobin at 9.2 with recent baseline 7.8-9.4, IV iron tranfusion in early May 2025 admission (7) DVT prophylaxis: Status: Acute Assessment and plan: High risk. Declines subcut injections or SCDs. Per Krorana score (VTE in cancer patients) she is 3, which is high risk and worth using DOAC at preventive dose. Carbemazepine reduces effectiveness, but still better than nothing so will continue to use this if she will take it. Discharge Planning Discharge Planning: shooting for home 06/18 after repeat cultures 48h, Subjective Subjective Patient reports: still having pain and voiding w/o difficulty; denies nausea, vomiting or shortness of breath Interval history since last seen: Events: Micro called, 07/20 coag negative staph, 07/20 GPR, possible clostridia ssp. She continues to feel a lot of pain, feels like all her nerves are hypersensitive. Lumps of blanket hurt her back and legs. Right chest also hurts. Oxycodone does help. No fever/chills today, last had last night. Declined zofran, doesn't feel she needs it. Exam Narrative Exam Narrative: General: This is an emotional, thin woman in active distress due to reported pain HEENT: Normocephalic, atraumatic CV: RRR Resp: Pain with inspiration, absent breath sounds right upper lung, no dyspnea Abd: soft, NTND MSK: voluntary motion x4 Neuro: awake, alert, no focal deficits Objective Last Vital Signs Temp 37.5 C 06/16/25 07:39 Pulse 109 H 06/16/25 07:39 Resp 16 06/16/25 07:39 BP 96/55 L 06/16/25 07:39 Pulse Ox 93 06/16/25 07:39 VTE Prohylaxis Risk Level: Moderate/High Risk Contraindications: None Prophylaxis: Patient anticoagulated Time Spent with Patient Time Spent with Patient: 35-49 minutes Time was spent: preparing to see the patient(eg.review tests), obtaining and/or reviewing separately otained hiistory, ordering medications,tests, procedures, referring, communicating with other health child care associate teacher, indepentently interpreting results, counseling the patient and care coordination
[2025-06-16 16:56] LABS: Vancomycin, Random 28.1 ug/mL
[2025-06-16] MEDS: Venlafaxine 37.5 MG CAPCR PO (17:03)
[2025-06-16 20:09] VITALS: BP 97/61; PULSE 99; RESP 18; TEMP 37.5; O2SAT 100
[2025-06-16] MEDS: Budesonide/Formoterol 160/4.5 6 GM 60 PUFF INH IH (21:00)
--- NOTE | 2025-06-16 21:12 | PT.INNT ---
PT Notes Visit Reasons: Sepsis PT Consult received, Chart reviewed, pt approached for initial assessment. Pt supine in bed with hydrothermal pad on chest. Pt stated she could not participate in assessment on this date. She agreed to participate on 06/17/2025 at 11 am. MELQUIADES Koo notified pt declined to participate. Spent 12 mins with pt. attempting. Pt requested a cup of ice chips and a cup of icewater both were provided prior to PT exiting.
[2025-06-16 21:28] VITALS: RESP 20; O2SAT 97
[2025-06-16 22:44] VITALS: BP 99/54
[2025-06-17] MEDS: oxyCODONE 10 MG TAB PO ×4 (03:05→20:04)
[2025-06-17] MEDS: VANCOMYCIN/WATER (PEG) 1 GM/200 ML BAG IVPB ×2 (03:06→15:10)
[2025-06-17] MEDS: Ondansetron 4 MG/2 ML VIAL IVP ×4 (03:06→20:16)
[2025-06-17] MEDS: Normal Saline Flush 10 ML SYR IVP ×4 (03:10→20:17)
[2025-06-17] MEDS: CEFEPIME 2 GM in Normal Saline 100 ML IVPB ×3 (04:04→20:05)
[2025-06-17] MEDS: Lactobacillus Acidophilus CAP 1 CAP PO (07:57)
[2025-06-17] MEDS: Acetaminophen 500 MG TAB 1000 MG PO ×3 (07:57→20:05)
[2025-06-17] MEDS: Apixaban 2.5 MG TAB PO ×2 (07:58→20:06)
[2025-06-17] MEDS: Omeprazole 20 MG CAPCR PO (07:58)
[2025-06-17] MEDS: carBAMazepine 200 MG TAB 100 MG PO ×2 (07:59→20:05)
[2025-06-17 09:08] LABS: Abs Immature Grans 0.07 10^3/uL (0.0-0.06); HCT 26.7 % (36.0-46.0); HGB 8.9 g/dL (11.2-15.7); Immature Grans % 0.6 %; MCH 28.0 pg (27.0-33.0); MCHC 33.3 % (32.0-36.0); MCV 84 fL (80-95); MPV 8.1 fL (8.0-11.0); Platelet Count 719 10^3/uL (130-400); RBC 3.18 10^6/uL (3.93-5.22); RDW 16.4 % (11.7-14.6); RDW-SD 48.4 fL; WBC 12.26 10^3/uL (4.4-10.8)
[2025-06-17 09:09] VITALS: BP 100/59; PULSE 103; RESP 16; TEMP 36.7; O2SAT 93
[2025-06-17 09:28] LABS: Anisocytosis 1+; Hypochromasia 1+; Microcytosis 1+; Polychromasia Present
[2025-06-17 09:56] LABS: Magnesium 1.4 mg/dL (1.6-2.6)
[2025-06-17 09:58] LABS: Anion Gap 7.9 mmol/L (3-11); BUN 7 mg/dL (9-23); CO2 27.3 mmol/L (20.0-31.0); Calcium 8.0 mg/dL (8.3-10.6); Chloride 99 mmol/L (98-107); Glucose 116 mg/dL (74-106); Potassium 3.4 mmol/L (3.5-5.1); Sodium 134 mmol/L (136-145)
--- NOTE | 2025-06-17 11:09 | CMPROGNOTE_ITS ---
Date of service: 06/17/25 Time of Service: 11:09 Care Management Progress Note Progress Note Text Progress Note Text: Nakita met with palliative care again today, who follows her closely. Per report, Nakita has stated that she does not feel ready for hospice at this time. Nakita is asking for a hospital bed at home, but has declined an assessment by PT in order to determine her eligibility. She will likely not qualify due to her independence with mobility. Per MD, awaiting sensitivities in order to determine antibiotic course. CM will continue to follow. Discharge Potential Discharge Needs: Consult Consult Services Needed: Palliative and PCP F/U Appt Anticipated Barriers to Discharge: Medical Status Patient/Family Education Needs: Review discharge instructions, discuss Ask Me Three Transportation: Private vehicle Plan: Anticipate Nakita will return home once medically cleared. HH services will again be offered - SN, PT/OT and MINISTER ASSISTANT vs hospice. Her son will drive her home via private vehicle, or she may need RCT, when ready. She will follow up with her PCP, and be encouraged to f/u with her oncologist, and continue per her discharge plan of care. CM will continue to follow. Social Determinants of Health Screening Social Determinants of health last assessed in clinic: 06/17/25 Will the Patient Participate in the Screening?: Yes Do you worry about having a steady place to live?: no Problems where you live: no known problems In the past 12 months, have you had to go without electric, gas, oil or water in your home?: no 1. Within the past 12 months, we worried whether our food would run out before we got money to buy more.: Don't know/refused 2. Within the past 12 months, the food we bought just didn't last and we didn't have money to get more.: Don't know/refused Has lack of transportation kept you from medical appointments or from doing things needed for daily living?: no Has anyone in your life made you feel unsafe or unsupported?: no How hard is it for you to pay for the very basics like food, housing, medical care, and heating? Would you say it is:: Somewhat hard Do you want help finding or keeping work or a job?: I do not need or want help If for any reason you need help with day-to-day activities such as bathing, preparing meals, shopping, managing finances, etc., do you get the help you need?: I don?t need any help How often do you feel lonely or isolated from those around you?: Never Do you speak a language other than British at home?: No Does the patient want assistance with any of the above?: No Comments: pt expresses desire for hospice Health Related Social Needs Health related social needs: problems related to housing/economic circumstances (Z59.89)
--- NOTE | 2025-06-17 11:30 | PCNE_ITS ---
Date of service: 06/17/25 Time of Service: 11:30 History of Present Illness History of Present Illness Chief Complaint: Lung Cancer Narrative: Nakita Hancock is a 59-year-old woman with NSCL with bone and pulmonary mets who in October noted onset of diffuse intense pain throughout her entire body which started shortly after she was admitted for treatment of pneumonia. She has been meeting Radha Jaime APRN and myself form the [facility] since October 2024 for help with pain management, sorting out goals of care, extra support. Please see previous Outpatient PC and inpatient pallaitive notes for addl hisotry and info. [facility] and tachycardia: PNA with sepsis Vs. fever from tumor. I am seeing her today to follow-up on Pain management and goals of care as well as offering landya aaronupport. She tells me that she was up all night vomiting and exausted and cannot talk to me. She just got some nausea medicine and would like to sleep. #Cancer Related Pain: As per inpt chart, current pain meds: -Celebrex 100mg PO BID -Oxycodone 10 mg Q 4h PRN (5 doses over last 24 hours) (Oxycontin stopped) -Acetaminophen 1 gm PO TID -Fentanyl patch: increased to 100 mcg yesterday at 11 AM. Pt reports that pain is all over, worst in R chest and shoulder. ALso with abd pain due to vomiting last night. She feels pain is a tiny bit better with med adjustments over the past month (cannot yet tell if increased fentanyl is helping)A Used more frequent PRN opiates last night (I was in terrible pain when I was vomiting...better today). ASSESS: I think gentle and slow adjustments in pain medications are helping. Pt was unwilling to discuss how pain management went during the week she was at home (which would be helpful to know as far as discharge planning). AGree with stopping oxycontin . Keep in mind that as she continues to lose weight, Fentanyl patch may become less effective, as long as she has PRN short acting available. Plan: Continue slow and gentle adjustment of pain medication. Try to stay on oral and topical as long as hope is that she can return home. (unless she is asking for hospice). #Anxiety: Pt seemed much more relaxed than usual initially. However, when I asked her about returning home and asked her thoughts on hospice, she began squirming in bed and complaining of more abdominal pain and discomfort. Primary nurse today also endorsed that lorazepam has been helpful in the past. Ordered as 1 mg QID PRN; has not received any this admission. Assess: Now that pain is better controlled, I am seeing that anxiety is considerable contributor to patient's distress. Plan: Consider starting patient on scheduled low dose of BZD. Although clonezapam a little more long acting, lorazepam might be better choice, to stick with one BZD (i.e. lorazepam 0.5 mg Q 8 AM and 8 PM and then 0.5 mg Q 6h PRN). #Goals of Care: Palliative Care Team thought that patient was discharged 06/05/25 to be evaluated by [facility] Hospice Team, but apparently [facility]. SOmehow she was never seen (pt says they never called, others say she refused HH). Most recent oncology note says that they talked with PCP and both agreed that pt needed hospice referral. THis note insinuated that patient agreed. I am unable to sort this out. Personal communication with our nurse: [facility] hospice team felt they felt they could not admit patient without a 24/7 photoengraver in the home. Again, pt denies that she ever spoke with hospice. When I asked Nakita to share with me how things went after her 06/05 discharge from [facility], she tells me: -hard to tell, I was hardly home at all until I had to come back. -'I couldn't do anything for myself. All I could do was get myself to the bathroom. Teen child unable to keep up with cooking and cleaning and so on. Other son unable to help due to his work obligations. Today I asked her about hospice. She says: How can I do that when I do not know what is going on with my body? (this is her usual answer). She is glad she came to the hospital and glad that she is getting antibiotics and tests and at this time continues to wish to do so. Further thoughts regarding hospice: If [facility] will not accept patient, as she does not have someone who is willing to be her 24/7 caregiver, and unclear if Kei is able to provider hospice in our [facility] due to understaffing, then I urge anyone who discusses hospice with patient to be celar that hospice may not be possible for her. Unfair to precede otherwise. Regarding caregiver, Nakita says that her youngest teen child cannot be there all the time (and we agree is unfair to them to be primary caregiver). Nakita says that next youngest (adult) son has a job and unable to be here /. Not possible for [place] adult children to come to [place] to support her in person. She cannot discuss other goals or hopes at this point , I am too sick and need to rest. (Usually answer). However, I did note a marked increase in anxiety when I brought up both going home and hospice. Patient also says that she cannot go home without a hospital bed. On closer questioning, she currently has NO BED. h was sleeping on the couch for the last year. That couch has now been thrown out (unclear why, one provider wonders if she had an incontinence episode...),. She does not know where she would sleep if she went home and did not get a hospital bed. She is informed that once she feels it is time to admit to hospice, (and a hospice agency accepts her), that hospice would provide a hospital bed as well as oxygen. (But she is not ready for hospice). Case management spoke with [facility] today. They have worked with patient in the recent past. They think it may be possible to access philanthropic palliative funds to procure a regular bed for patient. WOrk in progress. Given current situation, discharge planning is going to be challenging. Assessment and Plan Assessment and plan (1) Non-small cell lung cancer metastatic to liver: Status: Acute Assessment and plan: We will try to have member of palliative Care team meet with patient if still inpatient on Monday. 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 (Acute) Hypercoagulable state (Acute) Thrombocytosis (Acute) Acute dehydration (Acute) Sepsis (Acute) Moderate protein-calorie malnutrition (Acute) Non-small cell lung cancer metastatic to liver (Acute) Malnutrition (Acute) Nicotine dependence (Acute) Cough (Acute) Allodynia (Acute) Liver mass (Acute) Metastatic primary lung cancer (Acute) Enteritis (Acute) Lung mass (Acute) Pain (Acute) Cancer related pain (Chronic) Right ear pain (Acute) Myofascial pain (Acute) Chronic pain (Chronic) Generalized weakness (Acute) Advanced care planning/counseling discussion (Acute) COPD (chronic obstructive pulmonary disease) (Chronic) Generalized pain (Acute) Non-small cell lung cancer metastatic to bone (Acute) Scoliosis (Acute) Hernia of abdominal cavity (Acute) Decreased appetite (Acute) Refractory migraine with aura (Acute) Posttraumatic stress disorder (Acute) Nausea (Acute) Asthma (Chronic) Tremor (Acute) Influenza A (Acute) Generalized hyperhidrosis (Acute) Exposure to viral hepatitis (Acute) (Suspected) Functional tremor (Acute) Vertigo (Acute) Weakness (Acute) Fibromyalgia (Acute) High risk medication use (Acute) History of tobacco abuse (Acute) High blood sugar (Acute) Pulmonary nodule (Acute) Nicotine dependence, cigarettes, uncomplicated (Acute) Mass of upper lobe of right lung (Acute) Lesion of ulnar nerve (Acute) Ovarian cyst (Acute) Fatigue (Acute) Note hx fibromyalgia on problem list Depression (Chronic) Medical History Thoracic outlet syndrome UTI (urinary tract infection) Enterocolitis Polyneuropathy Chemotherapy induced nausea and vomiting Chronic abdominal pain Abnormal findings on diagnostic imaging of lung Tobacco dependence syndrome Left lower quadrant pain Low back pain Rheumatoid arthritis Deviated nasal septum Chronic pain syndrome Chronic pain due to malignant neoplastic disease Malignant neoplasm metastatic to bone Palliative care patient Pneumonia Advance care planning Palliative care encounter Sepsis Constipation Anxiety Metastatic primary lung cancer Chronic back pain Cervical dysplasia Surgical History H/O endoscopy Hx of colonoscopy H/O LEEP Family History Mother Cancer family history of CA Mother bladder questioning ovarian ca Uncle brain CA Grand father CA unknown origin. 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 Results Last Vital Signs Temp 36.7 C 06/17/25 09:09 Pulse 103 H 06/17/25 09:09 Resp 16 06/17/25 09:09 BP 100/59 L 06/17/25 09:09 Pulse Ox 93 06/17/25 09:09 Labs 06/17/25 08:50 06/17/25 08:50 Labs: Laboratory Results - last 24 hr 06/16/25 06/17/25 16:08 08:50 WBC 12.26 H RBC 3.18 L Hgb 8.9 L Hct 26.7 L MCV 84 MCH 28.0 MCHC 33.3 RDW 16.4 H Plt Count 719 H MPV 8.1 Immature Gran % 0.6 Neutrophils % 84.4 Lymphocytes % 6.4 Monocytes % 8.1 Eosinophils % 0.0 Basophils % 0.5 Nucleated RBC % 0.0 Absolute Neutrophils 10.35 H Absolute Lymphocytes 0.78 L Absolute Monocytes 0.99 H Absolute Eosinophils 0.00 Absolute Basophils 0.06 RBC Morphology See Below Polychromasia Present Hypochromasia 1+ Anisocytosis 1+ Microcytosis 1+ Sodium 134 L Potassium 3.4 L Chloride 99 Carbon Dioxide 27.3 Anion Gap 7.9 BUN 7 L Creatinine 0.45 L Est GFR (CKD-EPI 2020) 141.88 Glucose 116 H Calcium 8.0 L Magnesium 1.4 L Random Vancomycin 28.1 Time Spent Time Spent with Patient Time Spent(min): 75
[2025-06-17] MEDS: LORazepam 1 MG TAB PO (12:57)
[2025-06-17] MEDS: Potassium Chloride Liquid 20 MEQ PKT 40 MEQ PO (12:58)
[2025-06-17] MEDS: MAGNESIUM SULFATE 2 GM/50 ML BAG IV_INF (13:02)
--- NOTE | 2025-06-17 15:30 | PGE_ITS ---
Date of Service Date of service: 06/17/25 Time of Service: 15:30 Assessment and Plan Assessment and plan (1) Fever: Status: Acute Assessment and plan: Fever without source other than active metastatic malignancy with large mass in upper right chest, likely with necrosis, atelectasis and compression of critical structures Blood cultures with one bottle growing Gram+ rods and another coag negative strep, vanc and cefepime started Jun 15, not initially continued but resumed 06/16, repeat cultures. Narrow 06/18 when more specific culture results vs discontinuing abx all together if appears to be contaminant only. (2) Non-small cell lung cancer metastatic to liver: Status: Acute Assessment and plan: Patient has a massive right upper lung tumor with metastases to liver and bone She is followed by [facility] oncology Active ongoing symptoms of pain, nausea, vomiting, diarrhea persist as per last hospitalization She has declined many recommended interventions Ethics committee was engaged during her last hospitalization, with community health providers engaging in care Patient's palliative care doc is Kehinde Porras, seen today.. 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 Patient castigates previous providers and previous nurses 2. Patient asks next provider to be the one who finds her diagnosis 3. Patient has complex explanations for why her condition is unique to her and her alone 4. Patient has complex explanations for why she can or cannot take a medication or accept a treatment 5. Patient unavailable for shared decision making, persisting in her explanations of side issues The barriers to her getting treatment are psychiatric. Mood issues may be slightly imrpoved on carbemazepine. She did not tolerate adding SNRI. (4) Cancer related pain: Status: Chronic Assessment and plan: On fentanyl patch 75mcg, oxycontin 20 BID, oxycodone 10mg prn Also on celecoxib at low dose, can increase to BID continue carbemazeipine for neuropathic component Increase fentanyl patch to 100mcg, stop oxycontin to simplify, increase prn oxycodone to 10-20mg. After discussion, tried adding venlafaxine along with carbemazepine for pain adjuvants, but this caused GI distress, stopped. She benefits from having the head of the bed inclined to 30+ degrees in terms of pain and SOB, will pursue adjustable hospital bed at home. (5) COPD (chronic obstructive pulmonary disease): Status: Chronic Assessment and plan: - Without acute exacerbation - Continue home inhaler regimen when she accepts it. (6) Anemia: Status: Chronic Assessment and plan: Stable hemoglobin around 9 with recent baseline 7.8-9.4, IV iron tranfusion in early May 2025 admission (7) DVT prophylaxis: Status: Acute Assessment and plan: High risk. Declines subcut injections or SCDs. Per Kror[place] score (VTE in cancer patients) she is 3, which is high risk and worth using DOAC at preventive dose. Carbemazepine reduces effectiveness, but still better than nothing so will continue to use this if she will take it. (8) Hypokalemia: Status: Resolved Assessment and plan: low mg/k with GI losses overight, loose stools and vomiting resolved, replace this today, follow. Discharge Planning Discharge Planning: consider 06/18 if 06/16 cultures negative and can set up help at home Subjective Subjective Patient reports: still having pain, tolerating a regular diet, voiding w/o difficulty, diarrhea and vomiting; denies fever Interval history since last seen: Had some vomiting and loose stool overnight. She thinks it was adding the venlafaxine to the other medications. She declined it this morning. No nausea now. Getting pain in chest and neck and legs. She has trouble breathing with the bed flat, feels better at 30+ degrees. Exam Narrative Exam Narrative: General: This is an emotional, thin woman in mild distress due to pain HEENT: Normocephalic, atraumatic CV: RRR Resp: Pain with inspiration, absent breath sounds right upper lung, no dyspnea Abd: soft, NTND Ext: no cyanosis, warm, no edema Neuro: awake, alert, no focal deficits Objective Last Vital Signs Temp 36.7 C 06/17/25 09:09 Pulse 103 H 06/17/25 09:09 Resp 16 06/17/25 09:09 BP 100/59 L 06/17/25 09:09 Pulse Ox 93 06/17/25 09:09 Laboratory Results - last 24 hr 06/16/25 06/17/25 16:08 08:50 WBC 12.26 H RBC 3.18 L Hgb 8.9 L Hct 26.7 L MCV 84 MCH 28.0 MCHC 33.3 RDW 16.4 H Plt Count 719 H MPV 8.1 Immature Gran % 0.6 Neutrophils % 84.4 Lymphocytes % 6.4 Monocytes % 8.1 Eosinophils % 0.0 Basophils % 0.5 Nucleated RBC % 0.0 Absolute Neutrophils 10.35 H Absolute Lymphocytes 0.78 L Absolute Monocytes 0.99 H Absolute Eosinophils 0.00 Absolute Basophils 0.06 RBC Morphology See Below Polychromasia Present Hypochromasia 1+ Anisocytosis 1+ Microcytosis 1+ Sodium 134 L Potassium 3.4 L Chloride 99 Carbon Dioxide 27.3 Anion Gap 7.9 BUN 7 L Creatinine 0.45 L Est GFR (CKD-EPI 2020) 141.88 Glucose 116 H Calcium 8.0 L Magnesium 1.4 L Random Vancomycin 28.1 VTE Prohylaxis Risk Level: Moderate/High Risk Contraindications: None Prophylaxis: Patient anticoagulated Time Spent with Patient Time Spent with Patient: 35-49 minutes Time was spent: preparing to see the patient(eg.review tests), obtaining and/or reviewing separately otained hiistory, ordering medications,tests, procedures, referring, communicating with other health manager intensive care unit, indepentently interpreting results, counseling the patient and care coordination
--- NOTE | 2025-06-17 15:48 | PT.INIE ---
PT Notes Visit Reasons: Sepsis Physical Therapy Inpatient Initial Evaluation Date:06/17/2025 Referring Doctor: Dr Andres Frost PT Orders: PT CONSULT: Fall Safety Assessment Precautions: Pain, Standard, IV access RUE, Self limiting behaviors Patient Profile/Admitting Diagnosis: Patient is 59-year-old female presented to the ED with fever and tachycardia. Patient with known diagnosis of non-small cell lung CA with mets to liver and bone. Patient treated with IV antibiotics fluids and pain meds. Chest x-ray negative for acute infectious process. CT of abdomen and pelvis negative for acute process. Blood cultures positive. 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 (Acute) Hypercoagulable state (Acute) Thrombocytosis (Acute) Acute dehydration (Acute) Sepsis (Acute) Moderate protein-calorie malnutrition (Acute) Non-small cell lung cancer metastatic to liver (Acute) Malnutrition (Acute) Nicotine dependence (Acute) Cough (Acute) Allodynia (Acute) Liver mass (Acute) Metastatic primary lung cancer (Acute) Enteritis (Acute) Lung mass (Acute) Pain (Acute) Cancer related pain (Chronic) Right ear pain (Acute) Myofascial pain (Acute) Chronic pain (Chronic) Generalized weakness (Acute) Advanced care planning/counseling discussion (Acute) COPD (chronic obstructive pulmonary disease) (Chronic) Generalized pain (Acute) Non-small cell lung cancer metastatic to bone (Acute) Scoliosis (Acute) Hernia of abdominal cavity (Acute) Decreased appetite (Acute) Refractory migraine with aura (Acute) Posttraumatic stress disorder (Acute) Nausea (Acute) Asthma (Chronic) Tremor (Acute) Influenza A (Acute) Generalized hyperhidrosis (Acute) Exposure to viral hepatitis (Acute) (Suspected)Functional tremor (Acute) Vertigo (Acute) Weakness (Acute) Fibromyalgia (Acute) High risk medication use (Acute) History of tobacco abuse (Acute) High blood sugar (Acute) Pulmonary nodule (Acute) Nicotine dependence, cigarettes, uncomplicated (Acute) Mass of upper lobe of right lung (Acute) Lesion of ulnar nerve (Acute) Ovarian cyst (Acute) Fatigue (Acute) Note hx fibromyalgia on problem listDepression (Chronic) Medical History Thoracic outlet syndrome UTI (urinary tract infection) Enterocolitis Polyneuropathy Chemotherapy induced nausea and vomiting Chronic abdominal pain Abnormal findings on diagnostic imaging of lung Tobacco dependence syndrome Left lower quadrant pain Low back pain Rheumatoid arthritis Deviated nasal septum Chronic pain syndrome Chronic pain due to malignant neoplastic disease Malignant neoplasm metastatic to bone Palliative care patient Pneumonia Advance care planning Palliative care encounter Sepsis Constipation Anxiety Metastatic primary lung cancer Chronic back pain Cervical dysplasia Surgical History H/O endoscopy Hx of colonoscopy H/O LEEP Social History/Home Situation: Patient resides alone 2 steps to enter. Patient sleeping on couch however couch was removed from home and she has no bed. Equipment Owned/DME: None Subjective: Patient reporting she has significant pain despite pain medication and she reports she has not slept. Objective: [] General Observation: Patient presented semireclined in bed with warming blanket to back and ice to right lateral chest.Then Dr Frost presented in room as well as MELQUIADES David Mental Status: A O x 4, tangential, delayed processing of some questions. Quick to decline ability to move until encouraged by MD. Agreeable to transfer to commode Pain: 8/10 all over ROM: [] Right Upper Extremity: WNL Left Upper Extremity: WNL Right Lower Extremity: WNL Left Lower Extremity: WNL Strength: [] Right Upper Extremity: 3/5 Left Upper Extremity: 3/5 Right Lower Extremity: 3/5 Left Lower Extremity: 3/5 Sensation: intact , hypersensitivity to touch throughout extremities and trunk Bed Mobility/Transfers: [] Supine with HOB >30 degrees to sit Independent; Pt unable to tolerate laying flat in bed d/t dyspnea and increased work of breathing Sit to stand independent Stand to sit independent Bed to/from commode Independent Gait: amb 3 feet x 2 without AD ( pt declined) SBA dependent for IV pole management. decreased step length noted.( pt declined to take any further steps stated she needed to return to bed and would try tomorrow to walk. Balance: [] Static Sitting: Normal Dynamic Sitting: Normal Static Standing: Normal Dynamic Standing: Fair + Special Tests: [] Mobility Limitations Standardized Measure [] [facility]-PAC 6 clicks Basic Mobility Inpatient Short Form: [] Raw Score: 21 CMS Score: 28.97 % deficit Informed Consent/Education: Patient instructed in purpose of PT consult benefits of PT to assist with determining DME and level of care needed for her to return to the community. Assessment: Patient is a frail 59 yo female who presents with clinical signs and symptoms consistent with current/admitting diagnoses of Lung CA with mets to bone and liver that have resulted in mobility limitations, gait instability, generalized weakness, and impairment of motor control as demonstrated by the following impairment level findings: 1. Decreased strength BUE/BLE major muscle groups 2. Impaired standing balance 3. Impaired functional activity tolerance 4. Dyspnea with HOB flat, and on exertion 5. Severe pain throughout her body with most prominent in neck, right lateral chest and abdomen due to lung CA with mets Impairments are contributing to the following functional limitations: 1. Inability to safely ambulate 2. Increase completion time for mobility ADL performance 3. Increased fall risk 4. Inability to perform stairs safely Patient is assessed as a moderate complexity based on the following: History:59-year-old female with impairment level findings, functional limitations, and past medical history as indicated above Examination: Demonstrable impairment in strength, balance, and mobility level with underlying impairments and functional limitations as documented above including AM-PAC score of 28.97% deficit Presentation: evolving Decision Making: moderate Goals: 1. SBA ambulate >25 feet with LRD 2. CGA 2 steps with LRD to safely enter and exit her home Plan of Care/Treatment Plan: 1-2x/day, 7 days/week x 1 week. Plan of care has been reviewed with the CONDITIONING ROOM WORKER providing the service under Physical Therapy direction. Initiate Physical Therapy intervention for strengthening, bed mobility, transfers, gait, stairs, balance training, use of assistive device. DISCHARGE RECOMMENDATIONS: Home with increased support services, PT for home safety assessment TREATMENT CODE/TIME: 81251 Thank you for the opportunity to participate in the care of this patient. Arlen Nog, PT [facility]
[2025-06-17] MEDS: Budesonide/Formoterol 160/4.5 6 GM 60 PUFF INH IH (19:57)
[2025-06-17 20:22] VITALS: BP 112/80; PULSE 112; RESP 17; TEMP 37; O2SAT 95
[2025-06-17] MEDS: Ipratropium/Albuterol 4 GM 120 PUFF INH IH (22:10)
[2025-06-18] MEDS: oxyCODONE 10 MG TAB PO ×5 (00:09→15:41)
[2025-06-18] MEDS: VANCOMYCIN/WATER (PEG) 1 GM/200 ML BAG IVPB (03:40)
[2025-06-18 04:31] VITALS: BP 100/51
[2025-06-18 07:36] VITALS: BP 103/58; PULSE 110; RESP 17; TEMP 37.3; O2SAT 92
[2025-06-18 07:59] LABS: Anion Gap 8.8 mmol/L (3-11); BUN 6 mg/dL (9-23); CO2 28.5 mmol/L (20.0-31.0); Calcium 8.2 mg/dL (8.3-10.6); Chloride 97 mmol/L (98-107); Glucose 94 mg/dL (74-106); Magnesium 1.9 mg/dL (1.6-2.6); Potassium 3.3 mmol/L (3.5-5.1); Sodium 134 mmol/L (136-145)
[2025-06-18] MEDS: Acetaminophen 500 MG TAB 1000 MG PO ×2 (08:58→15:41)
[2025-06-18] MEDS: carBAMazepine 200 MG TAB 100 MG PO (10:34)
[2025-06-18] MEDS: Omeprazole 20 MG CAPCR PO (10:34)
[2025-06-18] MEDS: Apixaban 2.5 MG TAB PO (10:35)
[2025-06-18] MEDS: Lactobacillus Acidophilus CAP 1 CAP PO (10:35)
[2025-06-18] MEDS: Cholecalciferol (Vitamin D3) 1,000 UNIT TAB 5000 UNITS PO (10:35)
[2025-06-18] MEDS: LORazepam 1 MG TAB PO (10:48)
[2025-06-18] MEDS: CEFEPIME 2 GM in Normal Saline 100 ML IVPB (12:28)
[2025-06-18 13:41] LABS: Vancomycin, Trough 11.9 ug/mL (5.0-10.0)
--- NOTE | 2025-06-18 15:28 | PT.INTREAT ---
PT Notes Visit Reasons: Sepsis Inpatient Physical Therapy Treatment Note [facility] Date:06/18/2025 PRECAUTIONS:standard, fall risk, Pain SUBJECTIVE: Pt reports she will be going to her daughter in laws home with her 4 yr old granddtr. She states she has pain all over. Pt reports Nerve pain is the worst OBJECTIVE: Pt initially presented supine in bed with HOB elevated to 30 degrees and pillows d/t dyspnea when flat.P table to sit upright in bed without back support however noted with increased productive cough after transitioning upright.? PAIN: all over VITALS: ?monitores by Nursing Therapeutic Activities ([id number]): Direct one-on-one instruction in dynamic activities to improve functional performance. ? BED MOBILITY/TRANSFERS? Rolling L/R: independent Supine-sit: independent ? Sit-supine: independent ? Sit-stand: independent? Stand-sit: independent? Bed-Commode: independent ? Commode-bed: independent Provided skilled cues and instruction on performance and technique throughout. Ambulation Facilitated safe and correct performance of level surface ambulation covering a distance of 40 feet using use front wheeled walker with contact-guard assist / SBA. Denied headache, chest pain, and lightheadedness throughout activity. Minimal verbal cueing provided for AD management, directional changes, and posture STAIRS:declined ? ASSESSMENT:? Pt demonstrates self limiting behaviors regarding movement. Her preference is to lay in bed with HOB elevated >30 degrees with heat to her back and ice to her right lateral chest. She requires max encouragement to participate and then is only willing to perform amb with FWW x 1. Given pt's current medical diagnoses and level of pain it is understandable that movement increases her pain therefore she does not want to move. Pt would benefit from HHPT for home safety /environment assessment within new setting of her dtr in laws home. Pt fitted for and issued FWW from [facility] during this session. Pt continues to benefit from commode next to bed as her condition continues to deteriorate given current medical diagnoses and prognosis. PLAN: Cont with POC until discharge TREATMENT CODE/TIME:01347/ [id number] DISCHARGE RECOMMENDATION: HHPT
--- NOTE | 2025-06-18 15:43 | DSE_ITS ---
Date of service: 06/18/25 Time of Service: 15:44 DS: Diagnosis Discharge Diagnosis (1) Fever: Status: Acute (2) Non-small cell lung cancer metastatic to liver: Status: Acute (3) 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: Status: Acute (4) Cancer related pain: Status: Chronic (5) COPD (chronic obstructive pulmonary disease): Status: Chronic (6) Anemia: Status: Chronic (7) DVT prophylaxis: Status: Acute (8) Hypokalemia: Status: Resolved Discharge Plan Disposition Patient Disposition: Home W/Home Health Services Home Health Services: Resumption of Home Health Services Condition: Stable Discharge Details Reason For Visit: Sepsis Admit Date/Time: 06/14/25 17:07 Admit Provider: Dakota Naik Attending Provider: Dakota Naik Primary Care Provider: Analy Tai Hospital Course Hospital Course: 59-year-old female patient with metastatic non-small cell lung cancer, emotionally unstable borderline personality disorder, multiple recent extended hospitalizations who presented with fever and intractable nausea/vomiting/diarrhea. There was no clear source of infection, but she was admitted for sepsis and treated with cefepime and vancomycin. Her initial cultures were positive and they were repeated 06/16. / grew coag negative staph and / grew anaerobic gram positive fadi on 06/14 blood cultures. These are both c/w floral contaminant, and repeat cultures 06/16 were negative. She was sent home with antibiotics to complete a week of cephalosporin therapy as the antibiotics did seem to help her fevers, which did not recur. Her carbemazepine was increased to 150mg BID as this was helping her pain. Oxycontin was not continued, and fentanyl patch was increased to 100mcg. Venlafaxine was tried but this cause vomiting and was stopped. Given that the carbemazepine induces metabolism of apixaban, her dose was increased to 5mg. There is uncertainty of effectiveness of this therapy, but she feels like carbemazepine is helping her pain and she does not want injections or warfarin. Could consider edoxaban as well but elected not to change. She worked with PT to improve safe mobility. It was noted her breathing is better with the head of the bed at 30+ degrees, so she may benefit from hospital bed, although she is able to sit up on her own. She is without a bed at home and was offered help with obtaining a bed through [facility]. Hemoglobin was stable around 9. No bleeding noted. low potassium and magnesium related to vomiting and some loose stool were replaced. Recommendations for Follow Up Recommended tests to be ordered by follow up provider: BMP, Mg, CBC in 3-5 days Home Meds and New Rx's Prescriptions: New fentanyl 100 mcg/hr Patch 72 Hour 100 mcg transdermal Q72H Qty: 10 0RF carbamazepine [Epitol] 200 mg tablet See Rx Instructions .ROUTE .COMPLEX Qty: 45 0RF Rx Instructions: 100mg (1/2 tablet) every morning and 200mg qpm cefdinir 300 mg capsule 300 mg PO BID Qty: 8 0RF apixaban 5 mg tablet 5 mg PO BID Qty: 60 2RF Rx Instructions: increase dose due to carbemazepine interaction oxycodone 10 mg tablet 10 mg PO Q4H PRNQty: 30 0RF Continued budesonide-formoterol [Symbicort] 160-4.5 mcg/actuation HFA aerosol inhaler 1 puff inhalation 6XD PRN (Reason: wheezing) Qty: 10.2 12RF Probiotic with Prebiotic 1 billion-250 cell-mg capsule 1 cap PO DAILY diclofenac sodium 1 % gel 2 g topical QID PRN (Reason: pain) Qty: 100 12RF Rx Instructions: Apply to painful areas (do not apply to same area that is currently has lidocaine patch on it) cholecalciferol (vitamin D3) 25 mcg (1,000 unit) capsule 125 mcg PO DAILY albuterol sulfate 2.5 mg /3 mL (0.083 %) solution for nebulization 2.5 mg inhalation Q4H PRN (Reason: shortness of breath or wheezing) Qty: 540 5RF ondansetron 4 mg tablet,disintegrating 4 mg PO Q8H PRN Combivent Respimat 20-100 mcg/actuation mist 1 puff inhalation Q6H Qty: 4 6RF albuterol sulfate [Ventolin HFA] 90 mcg/actuation HFA aerosol inhaler See Rx Instructions .ROUTE .COMPLEX Qty: 18 10RF Dose Instruction: INHALE TWO PUFFS BY MOUTH EVERY 4 TO 6 HOURS NEEDED FOR FOR SHORTNESS OF BREATH OR WHEEZE Rx Instructions: INHALE TWO PUFFS BY MOUTH EVERY 4 TO 6 HOURS NEEDED FOR FOR SHORTNESS OF B REATH OR WHEEZE albuterol sulfate 1.25 mg/3 mL solution for nebulization 1.25 mg inhalation 3XD alum-mag hydroxide-simeth [Antacid-Antigas] 200-200-20 mg/5 mL suspension 10 ml PO 4XD PRN Rx Instructions: administer between meals and at bedtime omeprazole 20 mg capsule,delayed release(DR/EC) 20 mg PO PRN PRN ketorolac 10 mg tablet 10 mg PO Q6H Qty: 16 0RF naloxone [Narcan] 4 mg/actuation spray,non-aerosol 4 mg INTRANASAL Q2M PRN Patient Comments: SPRAY 4 MG (CONTENTS OF 1 NASAL SPRAY) A SINGLE DOSE IN ONE NOSTRIL; MAY REPEAT EVERY 2 TO 3 MINUTES IN ALTERNATING NOSTRILS UNTIL MEDICA lorazepam 0.5 mg Tablet 1 mg PO Q6H PRN PRNQty: 12 0RF celecoxib [Celebrex] 100 mg Capsule 100 mg PO HS Qty: 90 0RF acetaminophen 500 mg tablet 1,000 mg PO TID Patient Comments: TAKE TWO TABLETS BY MOUTH THREE TIMES A DAY Discontinued carbamazepine 200 mg Tablet 100 mg PO BID Qty: 90 0RF fentanyl 75 mcg/hr Patch 72 Hour 75 mcg transdermal Q72H Qty: 3 0RF Eliquis 2.5 mg Tablet 2.5 mg PO BID 90 Days Qty: 180 0RF oxycodone 5 mg tablet 5 mg PO Q4H PRN Patient Comments: TAKE ONE TABLET BY MOUTH EVERY 4 HOURS NEEDED FOR PAIN oxycodone [OxyContin] 20 mg Tablet,Oral Only,Ext.Rel.12 Hr 20 mg PO Q12H Qty: 20 0RF Discharge Instructions Additional Instructions: You should take a higher dose of carbemazepine. It only comes in 200mg tablets. You can take 1/2 in the monring and 200mg at night You should take a higher dose of apixaban. This is because the carbemazepine makes the body get rid of this medication faster. You can take two of the 2.5mg pills you have at a time until you run out and get the new ones. Follow up with Simone from [facility] and with palliative care. Stand Alone Forms: Portal Information, Nursing Discharge Form Referrals: Analy Tai [Primary Care Provider, Medicine] Referral Note: Your PCP will reach out to you to set up a follow up appointment, if you do not hear from them please call. Activity:: Activity as Tolerated Equipment/Supplies:: No Equipment Needed Diet:: As Tolerated Discharge Orders Discharge Orders: Discharge Order (Routine); Ordered 06/18/25 Ordered By: Andres Frost Discharge Data Discharge Date/Time-TO BE ENTERED AT DEPARTURE: 06/18/25 18:03 DS: Summary Time Spent with Patient providing and/or coordinating discharge services: Greater than 30 minutes Status at Discharge Functional status at discharge: uses cane/walker Overall status at discharge: patient is back to baseline Mental Status: mental status grossly normal Speech and Movement: speech and movement normal Mood: congruent mood Affect: normal affect Quality:SDOH Health Related Social Needs: Health related social needs house/econ circumstance Health related social needs details ind in room Exam Narrative Exam Narrative: General: This is an emotional, thin woman in mild distress due to pain HEENT: Normocephalic, atraumatic CV: RRR Resp: Pain with inspiration, absent breath sounds right upper lung, no dyspnea Abd: soft, NTND Ext: no cyanosis, warm, no edema Neuro: awake, alert, no focal deficits Psych Mental Status: mental status grossly normal Speech and Movement: speech and movement normal Mood: congruent mood Affect: normal affect DS: Data Vitals/I&O Vitals and I&O: Vital Signs Temperature 37.3 C 06/18/25 07:36 Temperature Source Temporal Artery Scan 06/18/25 07:36 Pulse 110 H 06/18/25 07:36 Pulse 101 H 06/14/25 16:15 Respiratory Rate 17 06/18/25 07:36 Respiratory Effort Normal 06/14/25 18:31 Respiratory Depth Normal 06/14/25 18:31 Respiratory Pattern Normal 06/14/25 18:31 Blood Pressure 103/58 L 06/18/25 07:36 Blood Pressure Mean 73 06/18/25 07:36 Pulse Oximetry 92 06/18/25 07:36 Oxygen Delivery Method Room Air 06/18/25 07:36 Oxygen Flow Rate 0 06/18/25 07:36 Pain Level 10 06/18/25 12:36 Intake & Output 06/17/25 06/18/25 06/18/25 23:59 11:59 23:59 Intake Total 690 / 1090 1100 / 1200 100 / 1200 Output Total 300 / 300 Balance 690 / 1090 800 / 900 100 / 900 Intake: IV 450 / 850 200 / 300 100 / 300 Oral 240 / 240 900 / 900 Output: Urine 300 / 300 Other: Urine Color Pale Yellow Urine Appearance Clear Clear Urine Odor Normal Stool Size Large Stool Characteristics Liquid Data Completed and Pending Pending Labs at Discharge: 06/14/25 06/14/25 06/14/25 13:17 14:00 15:06 WBC 11.08 H RBC 3.25 L Hgb 9.2 L Hct 28.1 L MCV 87 MCH 28.3 MCHC 32.7 RDW 15.9 H Plt Count 721 H MPV 8.2 Immature Gran % 0.5 Neutrophils % 81.0 Lymphocytes % 7.3 Monocytes % 10.3 Eosinophils % 0.3 Basophils % 0.6 Nucleated RBC % 0.0 Absolute Neutrophils 8.97 H Absolute Lymphocytes 0.81 L Absolute Monocytes 1.14 H Absolute Eosinophils 0.03 Absolute Basophils 0.07 RBC Morphology Normal Polychromasia Hypochromasia Anisocytosis Microcytosis VBG Lactate 1.6 Sodium 134 L Potassium 3.7 Chloride 100 Carbon Dioxide 27.1 Anion Gap 7.1 BUN 7 L Creatinine 0.46 L Est GFR (CKD-EPI 2020) 138.33 Glucose 126 H Calcium 7.9 L Magnesium Total Bilirubin 0.20 AST 13 ALT < 7 L Alkaline Phosphatase 69 Total Protein 5.8 Albumin 3.1 L Urine Color Yellow Urine Clarity Clear Urine pH 6.0 Ur Specific Ponce <= 1.005 Urine Protein Negative Urine Ketones Negative Urine Blood Trace-intact H Urine Nitrite Negative Urine Bilirubin Negative Urine Urobilinogen 0.2 Ur Leukocyte Esterase Negative Urine RBC 0-2 Urine WBC Negative Ur Epithelial Cells Rare Urine Crystals Negative Urine Bacteria Negative Urine Casts Negative Urine Mucus Negative Ur Culture Indicated? No Urine Glucose Negative Vancomycin Trough Random Vancomycin COVID-19 Source Nasopharynx SARS-CoV-2 (PCR) Negative Influenza Type A (PCR) Negative Influenza Type B (PCR) Negative RSV (PCR) Negative 06/16/25 06/17/25 06/18/25 16:08 08:50 06:58 WBC 12.26 H RBC 3.18 L Hgb 8.9 L Hct 26.7 L MCV 84 MCH 28.0 MCHC 33.3 RDW 16.4 H Plt Count 719 H MPV 8.1 Immature Gran % 0.6 Neutrophils % 84.4 Lymphocytes % 6.4 Monocytes % 8.1 Eosinophils % 0.0 Basophils % 0.5 Nucleated RBC % 0.0 Absolute Neutrophils 10.35 H Absolute Lymphocytes 0.78 L Absolute Monocytes 0.99 H Absolute Eosinophils 0.00 Absolute Basophils 0.06 RBC Morphology See Below Polychromasia Present Hypochromasia 1+ Anisocytosis 1+ Microcytosis 1+ VBG Lactate Sodium 134 L 134 L Potassium 3.4 L 3.3 L Chloride 99 97 L Carbon Dioxide 27.3 28.5 Anion Gap 7.9 8.8 BUN 7 L 6 L Creatinine 0.45 L 0.39 L Est GFR (CKD-EPI 2020) 141.88 167.36 Glucose 116 H 94 Calcium 8.0 L 8.2 L Magnesium 1.4 L 1.9 Total Bilirubin AST ALT Alkaline Phosphatase Total Protein Albumin Urine Color Urine Clarity Urine pH Ur Specific Ponce Urine Protein Urine Ketones Urine Blood Urine Nitrite Urine Bilirubin Urine Urobilinogen Ur Leukocyte Esterase Urine RBC Urine WBC Ur Epithelial Cells Urine Crystals Urine Bacteria Urine Casts Urine Mucus Ur Culture Indicated? Urine Glucose Vancomycin Trough Random Vancomycin 28.1 COVID-19 Source SARS-CoV-2 (PCR) Influenza Type A (PCR) Influenza Type B (PCR) RSV (PCR) 06/18/25 13:10 WBC RBC Hgb Hct MCV MCH MCHC RDW Plt Count MPV Immature Gran % Neutrophils % Lymphocytes % Monocytes % Eosinophils % Basophils % Nucleated RBC % Absolute Neutrophils Absolute Lymphocytes Absolute Monocytes Absolute Eosinophils Absolute Basophils RBC Morphology Polychromasia Hypochromasia Anisocytosis Microcytosis VBG Lactate Sodium Potassium Chloride Carbon Dioxide Anion Gap BUN Creatinine Est GFR (CKD-EPI 2020) Glucose Calcium Magnesium Total Bilirubin AST ALT Alkaline Phosphatase Total Protein Albumin Urine Color Urine Clarity Urine pH Ur Specific Ponce Urine Protein Urine Ketones Urine Blood Urine Nitrite Urine Bilirubin Urine Urobilinogen Ur Leukocyte Esterase Urine RBC Urine WBC Ur Epithelial Cells Urine Crystals Urine Bacteria Urine Casts Urine Mucus Ur Culture Indicated? Urine Glucose Vancomycin Trough 11.9 H Random Vancomycin COVID-19 Source SARS-CoV-2 (PCR) Influenza Type A (PCR) Influenza Type B (PCR) RSV (PCR) Preliminary micro results at discharge 06/14/25 13:12 Blood Blood Culture - Preliminary NO GROWTH 96 HOURS 06/16/25 12:43 Blood Blood Culture - Preliminary NO GROWTH 24 HOURS 06/16/25 12:36 Blood Blood Culture - Preliminary NO GROWTH 24 HOURS PFSH All Active Problems (Updated 06/17/25 @ 11:37 by Martha Porras MD) Hospital admission due to lack of caregiver (Acute) Acute generalized abdominal pain (Acute) Tachycardia (Acute) Hypocalcemia (Acute) DVT prophylaxis (Acute) Anemia (Chronic) Fever (Acute) 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 (Acute) Hypercoagulable state (Acute) Thrombocytosis (Acute) Acute dehydration (Acute) Sepsis (Acute) Moderate protein-calorie malnutrition (Acute) Non-small cell lung cancer metastatic to liver (Acute) Malnutrition (Acute) Nicotine dependence (Acute) Cough (Acute) Allodynia (Acute) Liver mass (Acute) Metastatic primary lung cancer (Acute) Enteritis (Acute) Lung mass (Acute) Pain (Acute) Cancer related pain (Chronic) Right ear pain (Acute) Myofascial pain (Acute) Chronic pain (Chronic) Generalized weakness (Acute) Advanced care planning/counseling discussion (Acute) Generalized pain (Acute) Non-small cell lung cancer metastatic to bone (Acute) Scoliosis (Acute) Hernia of abdominal cavity (Acute) Decreased appetite (Acute) Refractory migraine with aura (Acute) Posttraumatic stress disorder (Acute) Nausea (Acute) Asthma (Chronic) Tremor (Acute) Influenza A (Acute) Functional tremor (Acute) Vertigo (Acute) Weakness (Acute) Fibromyalgia (Acute) High risk medication use (Acute) History of tobacco abuse (Acute) High blood sugar (Acute) COPD (chronic obstructive pulmonary disease) (Chronic) Pulmonary nodule (Acute) Nicotine dependence, cigarettes, uncomplicated (Acute) Mass of upper lobe of right lung (Acute) Exposure to viral hepatitis (Acute) (Suspected) Generalized hyperhidrosis (Acute) Lesion of ulnar nerve (Acute) Ovarian cyst (Acute) Fatigue (Acute) Note hx fibromyalgia on problem list Depression (Chronic) Medical History Thoracic outlet syndrome UTI (urinary tract infection) Enterocolitis Polyneuropathy Chemotherapy induced nausea and vomiting Chronic abdominal pain Abnormal findings on diagnostic imaging of lung Tobacco dependence syndrome Left lower quadrant pain Low back pain Rheumatoid arthritis Deviated nasal septum Chronic pain syndrome Chronic pain due to malignant neoplastic disease Malignant neoplasm metastatic to bone Palliative care patient Pneumonia Advance care planning Palliative care encounter Sepsis Constipation Anxiety Metastatic primary lung cancer Chronic back pain Cervical dysplasia Surgical History H/O endoscopy Hx of colonoscopy H/O LEEP Family History Mother Cancer family history of CA Mother bladder questioning ovarian ca Uncle brain CA Grand father CA unknown origin. 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
[2025-06-18] MEDS: Normal Saline Flush 10 ML SYR IVP (15:44)
[2025-06-18] MEDS: Ondansetron 4 MG/2 ML VIAL IVP (15:44)
[2025-06-18] MEDS: fentaNYL 100 MCG PATCH TD (16:58)
--- NOTE | 2025-06-18 17:28 | PDOC.HHF2F ---
Date of service: 06/18/25 Time of Service: 17:28 Home Health Referral Home Health Orders Clinical synopsis of why skilled professionals are needed: 59-year-old female patient with metastatic non-small cell lung cancer, emotionally unstable borderline personality disorder, multiple recent extended hospitalizations who presented with fever and intractable nausea/vomiting/diarrhea. There was no clear source of infection, but she was admitted for sepsis and treated with cefepime and vancomycin. Her initial cultures were positive and they were repeated 06/16. 1/4 grew coag negative staph and 1/4 grew anaerobic gram positive fadi on 06/14 blood cultures. These are both c/w floral contaminant, and repeat cultures 06/16 were negative. She was sent home with antibiotics to complete a week of cephalosporin therapy as the antibiotics did seem to help her fevers, which did not recur. Her carbemazepine was increased to 150mg BID as this was helping her pain. Oxycontin was not continued, and fentanyl patch was increased to 100mcg. Venlafaxine was tried but this cause vomiting and was stopped. Given that the carbemazepine induces metabolism of apixaban, her dose was increased to 5mg. There is uncertainty of effectiveness of this therapy, but she feels like carbemazepine is helping her pain and she does not want injections or warfarin. Could consider edoxaban as well but elected not to change. She worked with PT to improve safe mobility. It was noted her breathing is better with the head of the bed at 30+ degrees, so she may benefit from hospital bed, although she is able to sit up on her own. She is without a bed at home and was offered help with [facility] a [facility]. Hemoglobin was stable around 9. No bleeding noted. low potassium and magnesium related to vomiting and some loose stool were replaced. Medical diagnosis necessitation home health referral: metastatic lung cancer, pain Registered Nurse: Check all that apply Instruct on new or changed medication(s)/assess compliance: Ordered Assess for exacerbation of medical condition, instruct patient/caregivers on signs and symptoms to report for early detection: Ordered Other: Assistance with recognizing pain and appropriate administration of PRN pain medications Physical Therapist: Check all that apply Increase strength & endurance for safe mobility at home: Ordered To design/establish home maintenance program: Ordered Fall reduction therapy program for patient with history of frequent falls: Ordered Home safety evaluation and teaching/gait training including stair management (if applicable): Ordered Credit Union Examiner: Assist with community resources: Ordered Assist with adjunct faculty for medical terminology care planning: Ordered Home Bound Status Requires the aid of supportive device (check all that apply): Cane and Walker Describe why leaving home would require a considerable and taxing effort: Side effects from pain medication (sedation/drowsiness) and Requires frequent rest periods Encounter Date and Reason: I certify that a FTF encounter for this patient was performed on June 18, 2025 and that such encounter was related to the primary reason the patient requires home health services. The encounter was conducted in the following manner: By me as the certifying physician, GROUNDS SUPERVISOR, PA or By an inpatient physician, GROUNDS SUPERVISOR or PA during an inpatient stay who communicated findings to me, Certification And Authentication I certify that I composed the above information based on my clinical judgment relating to this patient's medical condition and, if applicable, clinical findings communicated to me by the NPP or inpatient physician who performed the FTF encounter. Name of Provider that will be monitoring home health services: Analy Tai
--- NOTE | 2025-06-18 17:37 | CMDISCH_ITS ---
Date of service: 06/18/25 Time of Service: 17:37 LACE Index Scoring Tool Questions: Length of Stay (in days): 4 - 6 Was the patient admitted via the E.D.?: Yes Comorbidities: Metastatic Solid Tumor E.D. Visits: 5 Answers: Total Score: 16 Risk of Readmission: High Risk Care Management Discharge Plan Reason for Hospitalization: sepsis Discharge Plan: Nakita returned home tonight with new orders for HH RN, PT, OT, PARACHUTE PACKER. She has also been referred to hospice, which she can transition to in the community, once her 06/02 caregiver is coordinated. Nakita stated that she will be able to stay with her daughter in law, who has agreed to be her caregiver, but she is unsure when this transition will happen. Nakita expressed concern about not having a bed at home to sleep in; she does not currently meet criteria for a hospital bed (unless it is coordinated through hospice). CM referred her to [facility], which has palliative care funds that can support her need, but she did not engage with them while in the hospital. ARACELI will continue to attempt to connect with her in the community. was able to support Nakita with a new fentanyl patch prior to her discharge, in order to avoid having to stop at the pharmacy on her ride home. Nakita worked with PT today, who cleared her to return home with HH services. CESAR coordinated a private vehicle drive home for Nakita through [facility]. Nakita will follow up with her PCP and her discharge plan of care. Nakita was unhappy about being discharged, despite being medically stable; CESAR informed the patient experience officer for follow up regarding her concerns. Patient/Family Education Needs: Review discharge instructions and limitations, discussion of self care needs including ask me three. Services Needed at Discharge: DME Agency (working with ARACELI for support with a bed at home), Home Health Care Services (new orders for HH RN, PT, OT, PARACHUTE PACKER; referral to hospice) and Transportation ([facility] private vehicle) SDOH Health Related Social Needs: Health related social needs house/econ circumstance Health related social needs details ind in room
[2025-06-18] MEDS: Ipratropium/Albuterol 4 GM 120 PUFF INH IH (17:48)
== END 2025-06-18 18:03 | disposition home health service (06) | DRG 872 ==
LOC: ER 15:41 → MS 06-15 07:24
PROVIDERS: Emergency Medicine; Admitting Provider Family Medicine; Emergency Provider General Practice; PCP Nurse Practitioner Family; Responsible Provider Family Medicine; Visit Provider Family Medicine
DX: A41.9 Sepsis, unspecified organism (principal); C34.11 Malignant neoplasm of upper lobe, right bronchus or lung; C78.7 Secondary malignant neoplasm of liver and intrahepatic bile duct; D68.59 Other primary thrombophilia; E44.0 Moderate protein-calorie malnutrition; Z68.1 Body mass index [BMI] 19.9 or less, adult; G89.3 Neoplasm related pain (acute) (chronic); F60.3 Borderline personality disorder; J44.9 Chronic obstructive pulmonary disease, unspecified; D64.9 Anemia, unspecified; F32.A Depression, unspecified; E87.6 Hypokalemia; R11.2 Nausea with vomiting, unspecified; R19.7 Diarrhea, unspecified; Z79.01 Long term (current) use of anticoagulants; E83.42 Hypomagnesemia; Z79.899 Other long term (current) drug therapy; E83.51 Hypocalcemia; F17.210 Nicotine dependence, cigarettes, uncomplicated; R53.1 Weakness; F43.10 Post-traumatic stress disorder, unspecified; Z59.9 Problem related to housing and economic circumstances, unspecified; F41.9 Anxiety disorder, unspecified
CPT/HCPCS: 00123; 36415; 80048; 80053; 87040; 87077; 87637; 94640; 96365; 96366; 96375; 97162; 97530; 99285; 71045; 74177; 80202; 81003; 81015; 83605; 83735; 85025; 87186; 94664; 94760; 99222; 99231; 99232; 99239; G0378; J0131; J0612; J0692; J2270; J2405; J3373; J3475; J3490; J7620